=== PATIENT | female | born 1980 | race Caucasian/White ===

== ENCOUNTER → 2016-09-25 | Outpatient (CLI) | payer MEDICAID ==
[~2016-09-25] MED LIST: ALB.5NB20; ALBU17AE23 IH; ALBU8.5H2 IH; ALPR.5T PO; ALPR1T PO; ALPR1TAB2 PO; AMIT25TA9 PO; ARIP10TA2 PO; AZIT-21 PO; BSP10T PO; CEPH500C PO; CEPH500T PO; CLIN300C3 PO; CLON0.5T3 PO; CYCL5TAB PO; DICL50TA4 PO; DIVA250T2 PO; DOXY100C2 PO; DULO60CA6 PO; EPIN0.3P3 IM; ESCI20TA2 PO; ESCT10T PO; FAMO20TA5 PO; FAMO40TA6 PO; FLUO10CA19 PO; GNT.3OP5 OP; HYDR-1231 PO; HYDR-2856 PO; HYDR-2858 PO; HYDR-3816 PO; HYDR1CAP2 PO; HYDR1TAB PO; KETO-22 PO; LURA80TA PO; MELO7.5T PO; METO-352 PO; MTF500T PO; NAPR-243 PO; NITR-65 PO; OMEP20CA12 PO; ONDA-42 SL; ONDA8TAB13 PO; OXYB10TA PO; PANT40TA2 PO; PHEN100T17 PO; PHEN200T27 PO; PRD20T PO; PROS PO; PRX20T PO; Prednisone PO; SOLI10TA4 PO; SUCR1TAB36 PO; TRAM50TA2 PO; TRIA15OI9 TOP; TRIA50CA PO; TRM50T PO; Z PACK; [UNRECOGNIZED DRUG - CODE] IM; flexeril PO
--- NOTE | 2016-09-25 08:58 | Diagnostic Imaging Report ---
INDICATION: COUGH; R05 COMPARISON: CT chest dated 05/10/2014 FINDINGS: Frontal and lateral views of the chest demonstrate normal heart size and pulmonary vascularity. The lungs are clear. There are no signs of infiltrate, pleural effusions or pneumothoraces. The visualized osseous structures show no acute abnormalities. IMPRESSION: 1. No acute process. No signs of infiltrates, effusions or pneumothoraces. Dictated by: Dictated on workstation # [id number]
== END ==
LOC: RAD 08:25
PROVIDERS: ATTEND Nurse Practitioner Community Health
DX: R05 Cough (principal)
CPT/HCPCS: 71020

== ENCOUNTER 2016-10-04 06:31 | Day surgery (SDC) | payer MEDICAID ==
[~2016-10-04] VITALS: Ht 157.5 cm; Wt 54.9 kg
[~2016-10-04 06:31] MED LIST changes: -PANT40TA2 PO; -SUCR1TAB36 PO
[2016-10-04] MEDS ORDERED: NS IV 1000 ML 1,000 ML IV STA (06:44)
[2016-10-04] MEDS ORDERED: HURRICAINE EXT TUBE (BENZOCAINE) XX PRN (06:45)
[2016-10-04] MEDS ORDERED: FAMOTIDINE 20MG/2ML IV (PEPCID) ONE (07:09)
[2016-10-04] MEDS ORDERED: proPOfol 200 MG/20 ML (DIPRIVAN) VIAL IV ONE (07:09)
[2016-10-04 07:10] VITALS: BP 114/68
[2016-10-04] MEDS ORDERED: MIDAZOLAM 2 MG/2 ML (VERSED) VIAL ONE (07:10)
[2016-10-04] MEDS: FAMOTIDINE 20MG/2ML IV (PEPCID) IVP ONE ×2 (07:10→07:20)
[2016-10-04] MEDS ORDERED: HURRICAINE EXT TUBE (BENZOCAINE) ONE (08:02)
[2016-10-04] MEDS ORDERED: PANT40TA2 PO (08:08)
[2016-10-04] MEDS ORDERED: SUCR1TAB36 PO (08:08)
--- NOTE | 2016-10-04 08:09 | Discharge Inst-Simple/Standard ---
Discharge Inst-Standard Patient Instructions/Follow Up Plan of Care/Instructions/FU: Follow up in clinic in 2 weeks. Continue taking omeprazole 20 mg one a day. Activity as Tolerated: Yes Discharge Diet: No Restrictions AMBROSIO PEREZ APRN Oct 04, 2016 08:09
--- NOTE | 2016-10-04 08:19 | Progress Note-Post Operative ---
Post-Operative Progess Note Surgeon (s)/Jig Filler (s) Surgeon HAZEL GUARDADO DO Jig Filler: 0 Pre-Operative Diagnosis gerd, hemetemesis Post-Operative Diagnosis small hiatal hernia, reactive gastropathy Post-Op Procedure Note Date of Procedure: Oct 04, 2016 Name of Procedure Performed: egd c biopsy Description of the Procedure: see ntoe Findings of the Procedure see note Anesthesia Type per mda Estimated blood loss (mL): none Specimen(s) collected/removed antrum HAZEL GUARDADO DO Oct 04, 2016 8:19 am
[2016-10-04 08:25] VITALS: BP 134/84
[2016-10-04 08:55] VITALS: BP 142/88
[2016-10-04 09:05] VITALS: BP 142/88
--- NOTE | 2016-10-04 11:56 | PROCEDURE REPORT ---
PROCEDURE PHYSICIAN: HAZEL GUARDADO DATE OF PROCEDURE: 10/04/2016 PREOPERATIVE DIAGNOSIS: 1. GERD 2. Hematemesis. POSTOPERATIVE DIAGNOSES: 1. Small hiatal hernia. 2. Reactive gastropathy. SURGEON: Nisha. ANESTHESIA: Per MDA. ESTIMATED BLOOD LOSS: None. COMPLICATIONS: None. INDICATIONS: The patient is a 35-year-old female who has had chronic cough, hematemesis and severe GERD. She understands the risk and benefits of the procedure and wished to proceed with procedure. Consent signed on the chart. PROCEDURE: The patient was taken to the endoscopy suite, placed in left lower recumbent position. Timeout was performed. The scope was inserted into the mouth down the esophagus, stomach and duodenum without difficulty. There were no polyps, masses or ulcerations within the duodenum. The scope was then slowly retracted back to the stomach which had a reactive gastropathy appearance. Biopsy of the antrum was obtained. The scope was also retroflexed and noted a very small hiatal hernia. The scope was returned to its normal position. As noted a biopsy of the antrum was obtained. The scope was retracted back into the esophagus and had normal appearance. There were no erythematous changes. No polyps, masses, ulcerations. The scope was slowly retracted until completely removed noting no other pathology of the esophagus. At the vocal cords there was a little bit of mucous that appeared to be in the trachea and around the cords. No other pathology noted. The scope was continued to be slowly retracted until completely removed. RECOMMENDATIONS: The patient will continue to keep on current medications. She will follow-up with Dr. Headley. She will need to follow-up with myself in approximately 2 weeks to discuss pathology. Job ID: [id number] Dictated Date: 10/04/2016 08:22:14 Triage Nurse Date: 10/04/2016 11:51:12 / radha
--- OUTSIDE RECORDS SUMMARY | 2016-11-04 20:28 | XMS REPORT | Continuity of Care Document ---
Author Author [facility] Organization [facility] Address Unknown Phone Unavailable Care Team Providers Care [place] Worker Name Role Phone Taras, Tammy PCP [phone] Source Comments Some departments are not documenting in the electronic medical record. If you do not see the information that you expected, contact Release of Information in the Health Information Management department at [phone] for further assistance in locating additional records.[facility] Active Allergies and Adverse Reactions Allergen Noted Date Severity Reactions Comments Bactrim 05/18/2013 ANAPHYLAXIS Moxifloxacin 05/18/2013 UNKNOWN Penicillins 05/18/2013 UNKNOWN Sulfa (Sulfonamide 05/18/2013 UNKNOWN Antibiotics) Current Medications Prescription Sig. Disp. Refills Start End Date Status Date ALPRAZOLAM (XANAX PO) Take by mouth. Active ESCITALOPRAM OXALATE Take by mouth. Active (LEXAPRO PO) epinephrine(+) (EPIPEN Inject 0.15 mg to area(s) Active JR) 0.15 mg/0.3 mL as directed as Needed. (1:2,000) syringe FESOTERODINE FUMARATE Take by mouth. Active (TOVIAZ PO) METFORMIN HCL (METFORMIN Take by mouth. Active PO) famotidine (PEPCID) 20 mg Take 20 mg by mouth twice Active tablet daily. cetirizine (ZYRTEC) 10 mg Take 1 Tab by mouth every 90 Tab 3 05/25/20 Active tablet morning. 13 hydrOXYzine (ATARAX) 25 Take 1 Tab by mouth at 120 Tab 3 05/25/20 Active mg tablet bedtime daily. Increase 13 by 1 tablet per night up to 4 tablets as long as it does not make you drowsy in AM. Active Problems Problem Noted Date Angioedema 05/25/2013 Overview: Symptoms began in March and have been occuring regularly thereafter. Etiology is presently unknown. - ruling out pheochromocytoma, mast cell degranulation/mastocytosis (activation), thyroid abnormality, complement abnormalities, HIV, H pylori, cryoglobulinemia, alpha gal, autoimmune disorders, post-streptococcal, hyperserotonergic etiology - checking VMA, TSH with T4, Tryptase, Thyroglobulin AB, 24 hour urine for 11 beta prostaglandin F 2 alpha, C1q level, HIV, 24 hr metanephrines, LDH, IgE, H. Pylori IgG, Cryoglobulin levels, complement levels, CH50, chronic urticaria panel, beef IgE, ASO titer, Anti-TPO ab, JAVED, 5 HIAA 24 hour urine to further evaluate. - start zyrtec QAM - patient advised to change hydroxyzine to QHS. She is to start with one tablet QHS and increase to up to four tablets QHS. She was advised to increase by one tablet each evening and to assess for drowsiness in AM. If drowsy she was advised to not increase any further and potentially step down to lower level. She has been tolerating hydroxyzine TID without significant side effects---it is anticipated she will be able to tolerate altered regimen without incident. 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
--- OUTSIDE RECORDS SUMMARY | 2016-11-04 20:28 | XMS REPORT ---
Author Author MARIA DE JESUS MERCADO [facility] eClinicalWorks Address Unknown Phone Unavailable Care Team Providers Care General Ophthalmologist Name Role Phone MARIA DE JESUS MERCADO Unavailable Allergies, Adverse Reactions, Alerts Substance Reaction Event Type MetFORMIN HCl ER shakiness, wt loss Drug Allergy Sulfamethoxazole-Trimethoprim Info Not Available Drug Allergy Septra Info Not Available Drug Allergy Penicillin V Potassium Info Not Available Drug Allergy Bactrim Info Not Available Drug Allergy Problems Problem Type Condition Code Onset Dates Condition Status Assessment Encounter for Depo-Provera contraception Z30.42 Active Problem Nausea R11.0 Active Problem Forgetfulness R68.89 Active Problem Lumbago with sciatica, left side M54.42 Active Problem Lumbago with sciatica, right side M54.41 Active Problem Back pain with right-sided radiculopathy M54.10 Active Problem Mental disor NOS oth dis F99 Active Problem Headache R51 Active Problem Anxiety F41.9 Active Problem 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 Medications Medication Code System Code Instructions Start Date End Date Status Dosage ZyrTEC [facility] [address]-54 10 MG Orally Once a day #120 samples Apr 19, 2015 1 tablet as needed Xanax [facility] [address]-31 1 MG Orally 4 times a day September 23, 2014 1 tablet as needed for anxiety Test strips NDC 0 Test Strips November 10, 2015 as directed Albuterol [facility] 0 90 mcg/actuation Jul 17, 2012 2 puffs by Inhalation route 4 times per day PRN Omeprazole [facility] [address]-00 20 MG Orally Once a day 2 capsules Lexapro [facility] [address]-43 20 MG Orally Once a day 2 tablets Benztropine Mesylate [facility] [address]-18 1 MG Orally 3 times a day 1 tablet Gabapentin [facility] [address]-03 300 MG Orally Three times a day 1 capsule Meclizine HCl [facility] [address]-25 25 MG Orally 3 times a day December 30, 2015 1 tablet as needed for dizziness Blood Glucose Monitor NDC 0 1 glucometer 2 times a day November 10, 2015 test blood sugars Hydrocodone-Acetaminophen [facility] [address]-67 5-325 MG Orally every 6 hrs September 09, 2015 1 tablet as needed EpiPen NDC 0 0.3 MG/0.3ML (1:1000) Intramuscular PRN Apr 19, 2015 as directed Lyrica [facility] [address]-43 75 MG Orally Twice a day September 21, 2015 1 capsule Toprol XL [facility] [address]-16 50 mg Orally Once a day at hs 1 tablet Procedures Procedure Coding System Code Date DEPO PROVERA (150 MG/ML) CPT-4 J1050 Feb 17, 2016 THER/PROPH/DIAG INJ, SC/IM CPT-4 74206 Feb 17, 2016 URINE TEST CPT-4 40357 Feb 17, 2016 Results No Known Results Summary Purpose eClinicalWorks Submission
--- OUTSIDE RECORDS SUMMARY | 2016-11-04 20:28 | XMS REPORT ---
Author Author MARIA DE JESUS MERCADO [facility] eClinicalWorks Address Unknown Phone Unavailable Care Team Providers Care Patient Intake Coordinator Name Role Phone MARIA DE JESUS MERCADO CP Unavailable Allergies, Adverse Reactions, Alerts Substance Reaction Event Type MetFORMIN HCl ER shakiness, wt loss Drug Allergy Sulfamethoxazole-Trimethoprim Info Not Available Drug Allergy Septra Info Not Available Drug Allergy Penicillin V Potassium Info Not Available Drug Allergy Bactrim Info Not Available Drug Allergy Problems Problem Type Condition Code Onset Dates Condition Status Assessment Reactive lymphadenopathy R59.9 Active Problem Nausea R11.0 Active Problem Forgetfulness R68.89 Active Problem Lumbago with sciatica, left side M54.42 Active Problem Lumbago with sciatica, right side M54.41 Active Problem Back pain with right-sided radiculopathy M54.10 Active Problem Mental disor NOS oth dis F99 Active Problem Headache R51 Active Problem Anxiety F41.9 Active Problem 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 Assessment Memory loss, short term R41.3 Active Assessment Other chronic pain G89.29 Active Assessment Low back pain M54.5 Active Medications Medication Code System Code Instructions Start Date End Date Status Dosage Test strips ND 0 Test Strips November 10, 2015 as directed Benztropine Mesylate [facility] [address]-36 1 MG Orally 3 times a day 1 tablet Xanax [facility] [address]-04 1 MG Orally 4 times a day September 23, 2014 1 tablet as needed for anxiety ZyrTEC [facility] [address]-98 10 MG Orally Once a day #120 samples Apr 19, 2015 1 tablet as needed Blood Glucose Monitor ND 0 1 glucometer 2 times a day November 10, 2015 test blood sugars Lexapro [facility] [address]-53 20 MG Orally Once a day 2 tablets Albuterol ND 0 90 mcg/actuation Jul 17, 2012 2 puffs by Inhalation route 4 times per day PRN Hydrocodone-Acetaminophen [facility] [address]-94 5-325 MG Orally every 6 hrs September 09, 2015 1 tablet as needed Omeprazole NDC [address]-96 20 MG Orally Once a day 2 capsules EpiPen NDC 0 0.3 MG/0.3ML (1:1000) Intramuscular PRN Apr 19, 2015 as directed Procedures Procedure Coding System Code Date Office Visit, Est Pt., Level 3 CPT-4 26475 Mar 20, 2016 Vital Signs Date/Time: Mar 20, 2016 Cardiac Monitoring Heart Rate 76 bpm Weight 124 lbs Height 64 in BMI 21.28 Index Blood Pressure Diastolic 80 mmHg Blood Pressure Systolic 116 mmHg Results No Known Results Summary Purpose eClinicalWorks Submission
--- OUTSIDE RECORDS SUMMARY | 2016-11-04 20:28 | XMS REPORT ---
Author Author MARIA DE JESUS MERCADO Organization [employer] Address Unknown Phone Unavailable Care Team Providers Care Cosmetic Counselor Name Role Phone MARIA DE JESUS MERCADO CP Unavailable Allergies No Known Allergies Problems Problem Type Condition Code Onset Dates Condition Status Problem Panic disorder without agoraphobia 300.01 Active Problem Other abnormal glucose 790.29 Active Problem Nondependent tobacco use disorder 305.1 Active Problem Bipolar disorder, unspecified 296.80 Active Medications No Known Medications Results No Known Results Summary Purpose eClinicalWorks Submission
--- OUTSIDE RECORDS SUMMARY | 2016-11-04 20:29 | XMS REPORT ---
Author Author MARIA DE JESUS MERCADO [facility] eClinicalWorks Address Unknown Phone Unavailable Care Team Providers Care Supervisor Inspection And Testing Name Role Phone MARIA DE JESUS MERCADO CP Unavailable Allergies, Adverse Reactions, Alerts Substance Reaction Event Type MetFORMIN HCl ER shakiness, wt loss Drug Allergy Sulfamethoxazole-Trimethoprim Info Not Available Drug Allergy Septra Info Not Available Drug Allergy Penicillin V Potassium Info Not Available Drug Allergy Bactrim Info Not Available Drug Allergy Problems Problem Type Condition Code Onset Dates Condition Status Problem Forgetfulness R68.89 Active Problem Headache R51 Active Problem Nausea R11.0 Active Assessment Gastroesophageal reflux disease without esophagitis K21.9 Active Problem Back pain with right-sided radiculopathy M54.10 Active Problem Lumbago with sciatica, left side M54.42 Active Problem Gastroesophageal reflux disease without esophagitis K21.9 Active Problem 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 [address]-78 20 mg Orally Once a day 2 tablets [address] [facility] [address]-50 1 MG Orally 4 times a day September 23, 2014 1 tablet as needed for anxiety ZyrTEC [facility] [address]-72 10 MG Orally Once a day #120 samples Apr 19, 2015 1 tablet as needed Gabapentin [facility] [address]-41 300 MG Orally Three times a day 1 capsule Albuterol ND 0 90 mcg/actuation Jul 17, 2012 2 puffs by Inhalation route 4 times per day PRN Hydrocodone-Acetaminophen [facility] [address]-63 7.5-325 MG Orally 3 times a day September 09, 2015 1 tablet as needed Benztropine Mesylate [facility] [address]-02 1 MG Orally 3 times a day 1 tablet Blood Glucose Monitor [facility] 0 1 glucometer 2 times a day November 10, 2015 test blood sugars Omeprazole [facility] [address]-04 20 mg Orally Once a day 2 capsules Procedures Procedure Coding System Code Date Office Visit, Est Pt., Level 2 CPT-4 92771 Apr 16, 2016 Vital Signs Date/Time: Apr 16, 2016 Cardiac Monitoring Heart Rate 80 bpm Weight 124.9 lbs Height 64 in BMI 21.44 Index Blood Pressure Diastolic 62 mmHg Blood Pressure Systolic 118 mmHg Results No Known Results Summary Purpose eClinicalWorks Submission
--- OUTSIDE RECORDS SUMMARY | 2016-11-04 20:29 | XMS REPORT ---
Author Author MARIA DE JESUS MERCADO Organization eClinicalWorks Address Unknown Phone Unavailable Care Team Providers Care Linen Folder Name Role Phone MARIA DE JESUS MERCADO CP Unavailable Allergies No Known Allergies Problems Problem Type Condition Code Onset Dates Condition Status Problem Mental disor NOS oth dis F99 Active Problem Headache R51 Active Problem 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 Problem Nausea R11.0 Active Problem Forgetfulness R68.89 Active Medications No Known Medications Results No Known Results Summary Purpose eClinicalWorks Submission
--- OUTSIDE RECORDS SUMMARY | 2016-11-04 20:29 | XMS REPORT ---
Author Author MARIA DE JESUS MERCADO Organization eClinicalWorks Address Unknown Phone Unavailable Care Team Providers Care Manager Reimbursement Name Role Phone MARIA DE JESUS MERCADO CP Unavailable Allergies No Known Allergies Problems Problem Type Condition Code Onset Dates Condition Status Problem Panic disorder without agoraphobia 300.01 Active Problem Other abnormal glucose 790.29 Active Problem Nondependent tobacco use disorder 305.1 Active Problem Bipolar disorder, unspecified 296.80 Active Medications Medication Code System Code Instructions Start Date End Date Status Dosage EPINEPHrine [facility] [address]-03 0.3 mg/0.3 mL (1:1,000) Aug 07, 2013 0.3 mg by Intramuscular route 1 time per day PRN Results No Known Results Summary Purpose eClinicalWorks Submission
--- OUTSIDE RECORDS SUMMARY | 2016-11-04 20:29 | XMS REPORT ---
Author Author MARIA DE JESUS MERCADO Organization eClinicalWorks Address Unknown Phone Unavailable Care Team Providers Care Architecture Intern Name Role Phone MARI ADE JESUS MERCADO CP Unavailable Allergies No Known Allergies Problems Problem Type Condition Code Onset Dates Condition Status Problem Nausea R11.0 Active Problem Forgetfulness R68.89 Active Problem Lumbago with sciatica, left side M54.42 Active Problem Lumbago with sciatica, right side M54.41 Active Problem Back pain with right-sided radiculopathy M54.10 Active Problem Mental disor NOS oth dis F99 Active Problem Headache R51 Active Problem Anxiety F41.9 Active Problem 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 Medications No Known Medications Results No Known Results Summary Purpose eClinicalWorks Submission
--- OUTSIDE RECORDS SUMMARY | 2016-11-04 20:29 | XMS REPORT ---
Author Author MARIA DE JESUS MERCADO Organization eClinicalWorks Address Unknown Phone Unavailable Care Team Providers Care Tool And Die Inspector Name Role Phone MARIA DE JESUS MERCADO [...]
--- OUTSIDE RECORDS SUMMARY | 2016-11-04 20:29 | XMS REPORT ---
Author Author MARIA DE JESUS MERCADO Organization eClinicalWorks Address Unknown Phone Unavailable Care Team Providers Care Offal Worker Name Role Phone MARIA DE JESUS MERCADO [...] Instructions Start Date End Date Status Dosage Albuterol NDC 0 90 mcg/actuation Jul 17, 2012 2 puffs by Inhalation route 4 times per day PRN Test strips NDC 0 Test Strips November 10, 2015 as directed EpiPen NDC 0 0.3 MG/0.3ML (1:1000) Intramuscular PRN Apr 19, 2015 as directed Xanax [facility] [address]-07 1 MG Orally 4 times a day September 23, 2014 1 tablet as needed for anxiety Blood Glucose Monitor NDC 0 1 glucometer 2 times a day November 10, 2015 test blood sugars Benztropine Mesylate [facility] [address]-68 1 MG Orally 3 times a day 1 tablet ZyrTEC [facility] [address]-79 10 MG Orally Once a day #120 samples Apr 19, 2015 1 tablet as needed Hydrocodone-Acetaminophen [facility] [address]-84 7.5-325 MG Orally 3 times a day September 09, 2015 1 tablet as needed Lexapro [facility] [address]-74 20 mg Orally Once a day 2 tablets Omeprazole [facility] [address]-96 20 mg Orally Once a day 2 capsules Results No Known Results Summary Purpose eClinicalWorks Submission
--- OUTSIDE RECORDS SUMMARY | 2016-11-04 20:30 | XMS REPORT ---
Author Author MARIA DE JESUS MERCADO [facility] eClinicalWorks Address Unknown Phone Unavailable Care Team Providers Care Drilling Machine Runner Name Role Phone MARIA DE JESUS MERCADO CP Unavailable Allergies, Adverse Reactions, Alerts Substance Reaction Event Type MetFORMIN HCl ER shakiness, wt loss Drug Allergy Xanax increased panic Drug Allergy Septra Info Not Available Drug Allergy Penicillin V Potassium Info Not Available Drug Allergy Bactrim Info Not Available Drug Allergy Sulfa (sulfonamide Antibiotics) Info Not Available Non Drug Allergy Problems Problem Type Condition Code Onset Dates Condition Status Assessment Encounter for surveillance of injectable contraceptive Z30.42 Active Problem Panic disorder without agoraphobia 300.01 Active Problem Other abnormal glucose 790.29 Active Problem Nondependent tobacco use disorder 305.1 Active Assessment Anaphylaxis, subsequent encounter T78.2XXD Active Assessment Encounter for Depo-Provera contraception Z30.42 Active Problem Bipolar disorder, unspecified 296.80 Active Assessment Upper respiratory tract infection, unspecified upper respiratory infection J06.9 Active Medications Medication Code System Code Instructions Start Date End Date Status Dosage Benztropine Mesylate [facility] 05521307631 1 MG TAKE ONE TABLET BY MOUTH TWICE DAILY EPINEPHrine [facility] [address]-94 0.3 mg/0.3 mL (1:1,000) Injection PRN Aug 0.3 mg by Intramuscular route 1 time per day PRN Zithromax Z-David [facility] [address]-06 250 MG Orally Once a day Apr 19, 2015 Apr 24, 2015 2 tablets on the first day, then 1 tablet daily for 4 days Lexapro [facility] [address]-66 20 MG Jul 30, 2014 2 tablet by Oral route 1 time per day Symbicort [facility] [address]-17 80-4.5 mcg/actuation May 06, 2014 2 puffs by Inhalation route 2 times per day for 30 day(s) Albuterol ND 0 90 mcg/actuation Jul 17, 2012 2 puffs by Inhalation route 4 times per day PRN ZyrTEC [facility] [address]-07 10 MG Orally Once a day #120 samples Apr 19, 2015 1 tablet as needed EpiPen NDC 0 0.3 MG/0.3ML (1:1000) Intramuscular PRN Apr 19, 2015 as directed Xanax [facility] [address]-93 1 MG September 23, 2014 1 tablet by Oral route 4 times per day Procedures Procedure Coding System Code Date Office Visit, Est Pt., Level 3 CPT-4 32056 Apr 19, 2015 DEPO PROVERA (150 MG/ML) CPT-4 J1050 Apr 19, 2015 URINE TEST CPT-4 59930 Apr 19, 2015 THER/PROPH/DIAG INJ, SC/IM CPT-4 11078 Apr 19, 2015 Vital Signs Date/Time: Apr 19, 2015 Temperature 98.2 F Weight 124.4 lbs Height 64 in BMI 21.35 Index Blood Pressure Diastolic 78 mmHg Blood Pressure Systolic 116 mmHg Cardiac Monitoring Heart Rate 64 bpm Results Name Result Date Reference Range Unit Abnormality Flag TEST, URINE (IN HOUSE) Summary Purpose eClinicalWorks Submission
--- OUTSIDE RECORDS SUMMARY | 2016-11-04 20:30 | XMS REPORT ---
Author Author MARIA DE JESUS MERCADO [facility] eClinicalWorks Address Unknown Phone Unavailable Care Team Providers Care Leadership Development Manager Name Role Phone MARIA DE JESUS MERCADO [...] Problem Bipolar disorder, unspecified 296.80 Active Assessment Generalized anxiety disorder F41.1 Active Medications Medication Code System Code Instructions Start Date End Date Status Dosage ZyrTEC [facility] [address]-86 10 MG Orally Once a day #120 samples Apr 19, 2015 1 tablet as needed Lexapro [facility] [address]-77 20 MG Jul 30, 2014 2 tablet by Oral route 1 time per day Benztropine Mesylate [facility] 56875411464 1 MG TAKE ONE TABLET BY MOUTH TWICE DAILY EpiPen NDC 0 0.3 MG/0.3ML (1:1000) Intramuscular PRN Apr 19, 2015 as directed Symbicort [facility] [address]-53 80-4.5 mcg/actuation May 06, 2014 2 puffs by Inhalation route 2 times per day for 30 day(s) Albuterol ND 0 90 mcg/actuation Jul 17, 2012 2 puffs by Inhalation route 4 times per day PRN Toprol XL [facility] [address]-11 50 MG Orally Once a day at hs May 10, 2015 1 tablet Xanax [facility] [address]-02 1 MG Rx to be filled on 05/05/15 September 23, 2014 1 tablet by Oral route 4 times per day Procedures Procedure Coding System Code Date Office Visit, Est Pt., Level 3 CPT-4 01739 May 10, 2015 Vital Signs Date/Time: May 10, 2015 Temperature 98.7 F Weight 125.3 lbs Height 64 in BMI 21.51 Index Blood Pressure Diastolic 74 mmHg Blood Pressure Systolic 118 mmHg Cardiac Monitoring Heart Rate 68 bpm Results No Known Results Summary Purpose eClinicalWorks Submission
--- OUTSIDE RECORDS SUMMARY | 2016-11-04 20:30 | XMS REPORT ---
Author Author MARIA DE JESUS MERCADO Organization eClinicalWorks Address Unknown Phone Unavailable Care Team Providers Care Surface Grinder Tender Name Role Phone MARIA DE JESUS MERCADO CP Unavailable Allergies No Known Allergies Problems Problem Type Condition Code Onset Dates Condition Status Problem Nausea R11.0 Active Problem Mental disor NOS oth dis F99 Active Problem Headache R51 Active Assessment Gastroesophageal reflux disease without esophagitis K21.9 Active Problem Forgetfulness R68.89 Active Problem Gastroesophageal reflux disease without esophagitis K21.9 Active Problem Back pain with right-sided radiculopathy M54.10 Active Problem Asthma exacerbation J45.901 Active Problem Anxiety F41.9 Active Problem 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 Problem Lumbago with sciatica, left side M54.42 Active Problem Lumbago with sciatica, right side M54.41 Active Medications Medication Code System Code Instructions Start Date End Date Status Dosage Omeprazole [facility] [address]-68 40 MG Orally Once a day 1 capsule Results No Known Results Summary Purpose eClinicalWorks Submission
--- OUTSIDE RECORDS SUMMARY | 2016-11-04 20:30 | XMS REPORT ---
Author Author MARIA DE JESUS MERCADO [facility] Address [address] [place] [address] Care Team Providers Care Flame Planer Name Role Phone MARIA DE JESUS MERCADO Unavailable PROBLEMS Type Condition ICD9-CM Code XAE39-OH Code Onset Dates Condition Status SNOMED Code Problem Forgetfulness R68.89 Active 73832101 Problem Headache R51 Active 89108702 Problem Nausea R11.0 Active 907434749 Problem Back pain with right-sided radiculopathy M54.10 Active 602800804 Problem Lumbago with sciatica, left side M54.42 Active 629595345 Problem 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 656021389 Problem Mental disor NOS oth dis F99 Active 72237253 Problem Lumbago with sciatica, right side M54.41 Active 414611693 Problem Anxiety F41.9 Active 58094733 ALLERGIES Unknown Allergies SOCIAL HISTORY No smoking Hx information available PLAN OF CARE VITAL SIGNS MEDICATIONS Unknown Medications RESULTS No Results PROCEDURES No Known procedures IMMUNIZATIONS No Known Immunizations
--- OUTSIDE RECORDS SUMMARY | 2016-11-04 20:30 | XMS REPORT ---
Author Author MARIA DE JESUS MERCADO Organization eClinicalWorks Address Unknown Phone Unavailable Care Team Providers Care Kitchen Worker Name Role Phone MARIA DE JESUS [...] Instructions Start Date End Date Status Dosage Xanax [facility] [address]-86 1 MG Orally 4 times a day September 23, 2014 1 tablet as needed for anxiety Results No Known Results Summary Purpose eClinicalWorks Submission
--- OUTSIDE RECORDS SUMMARY | 2016-11-04 20:30 | XMS REPORT ---
Author Author MARIA DE JESUS MERCADO [facility] Address [address] [place] [address] Care Team Providers Care Analysis Manager Name Role Phone MARIA DE JESUS MERCADO Unavailable PROBLEMS Type Condition ICD9-CM Code RXX66-ZM Code Onset Dates Condition Status SNOMED Code Problem Forgetfulness R68.89 Active 87207342 Problem Headache R51 Active 22426888 Problem Nausea R11.0 Active 125194856 Assessment Short-term memory loss R41.3 13 Mar, 2016 Active 784715881 Problem Back pain with right-sided radiculopathy M54.10 Active 047343482 Problem Lumbago with sciatica, left side M54.42 Active 814348375 Problem 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 316315913 Problem Mental disor NOS oth dis F99 Active 35715367 Problem Lumbago with sciatica, right side M54.41 Active 639196381 Problem Anxiety F41.9 Active 32872905 ALLERGIES Unknown Allergies SOCIAL HISTORY No smoking Hx information available PLAN OF CARE VITAL SIGNS MEDICATIONS Unknown Medications RESULTS No Results PROCEDURES No Known procedures IMMUNIZATIONS No Known Immunizations
--- OUTSIDE RECORDS SUMMARY | 2016-11-04 20:30 | XMS REPORT ---
Author Author MARIA DE JESUS MERCADO [facility] Address [address] [place] [address] Care Team Providers Care Network Support Analyst Name Role Phone MARIA DE JESUS MERCADO Unavailable PROBLEMS Type Condition ICD9-CM Code CUE38-HQ Code Onset Dates Condition Status SNOMED Code Problem Forgetfulness R68.89 Active 26321421 Problem Headache R51 Active 26237758 Problem Nausea R11.0 Active 690362880 Problem Back pain with right-sided radiculopathy M54.10 Active 188792994 Problem Lumbago with sciatica, left side M54.42 Active 543280732 Problem 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 536137242 Problem Mental disor NOS oth dis F99 Active 68793285 Problem Lumbago with sciatica, right side M54.41 Active 090544544 Problem Anxiety F41.9 Active 48012248 ALLERGIES Unknown Allergies SOCIAL HISTORY No smoking Hx information available PLAN OF CARE VITAL SIGNS MEDICATIONS Unknown Medications RESULTS No Results PROCEDURES No Known procedures IMMUNIZATIONS No Known Immunizations
--- OUTSIDE RECORDS SUMMARY | 2016-11-04 20:30 | XMS REPORT ---
Author Author MARIA DE JESUS MERCADO [facility] eClinicalWorks Address Unknown Phone Unavailable Care Team Providers Care Appraiser Boats And Marine Name Role Phone MARIA DE JESUS MERCADO CP Unavailable Allergies No Known Allergies Problems Problem Type Condition Code Onset Dates Condition Status Problem Nausea R11.0 Active Problem Mental disor NOS oth dis F99 Active Problem Headache R51 Active Assessment Headache R51 Active Problem Forgetfulness R68.89 Active Problem Gastroesophageal reflux disease without esophagitis K21.9 Active Problem Back pain with right-sided radiculopathy M54.10 Active Problem Asthma exacerbation J45.901 Active Problem Anxiety F41.9 Active Problem 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 Problem Lumbago with sciatica, left side M54.42 Active Problem Lumbago with sciatica, right side M54.41 Active Medications No Known Medications Procedures Procedure Coding System Code Date VENIPUNCT, ROUTINE* CPT-4 13131 May 16, 2016 LAB NOT BILLED BY [facility] CPT-4 NOBLL May 16, 2016 Results Name Result Date Reference Range Unit Abnormality Flag ROUTINE VENIPUNCTURE BMP ----Calcium, Serum 9.2 63677250 8.7-10.2 mg/dL ----Sodium, Serum 140 [id number] 136-144 mmol/L ----BUN/Creatinine Ratio 10 [id number] 8-20 ----Chloride, Serum 102 [id number] 97-106 mmol/L ----Carbon Dioxide, Total 22 [id number] 18-29 mmol/L ----Potassium, Serum 4.2 62642464 3.5-5.2 mmol/L ----eGFR If NonAfricn Am 113 [id number] >59 mL/min/1.73 ----eGFR If Africn Am 130 [id number] >59 mL/min/1.73 ----BUN 7 [id number] 6-20 mg/dL ----Creatinine, Serum 0.68 [id number] 0.57-1.00 mg/dL ----Glucose, Serum 123 [id number] 65-99 mg/dL H Summary Purpose eClinicalWorks Submission
--- OUTSIDE RECORDS SUMMARY | 2016-11-04 20:31 | XMS REPORT ---
Author Author MARIA DE JESUS MERCADO Organization eClinicalWorks Address Unknown Phone Unavailable Care Team Providers Care Motorcycle Mechanic Name Role Phone MARIA DE JESUS MERCADO CP Unavailable Allergies No Known Allergies Problems Problem Type Condition Code Onset Dates Condition Status Assessment Lumbago with sciatica, left side M54.42 Active Problem Nausea R11.0 Active Problem Forgetfulness [...] Instructions Start Date End Date Status Dosage Hydrocodone-Acetaminophen [facility] [address]-44 5-325 MG Orally every 6 hrs September 09, 2015 1 tablet as needed Results No Known Results Summary Purpose eClinicalWorks Submission
--- OUTSIDE RECORDS SUMMARY | 2016-11-04 20:31 | XMS REPORT ---
Author Author MARIA DE JESUS MERCADO [facility] Address [address] [place] [address] Care Team Providers Care Strategic Consultant Name Role Phone MARIA DE JESUS MERCADO Unavailable PROBLEMS Type Condition ICD9-CM Code CND53-GL Code Onset Dates Condition Status SNOMED Code Problem Forgetfulness R68.89 Active 52098789 Problem Headache R51 Active 13958436 Problem Nausea R11.0 Active 893743492 Problem Back pain with right-sided radiculopathy M54.10 Active 342052926 Problem Lumbago with sciatica, left side M54.42 Active 215104077 Problem 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 938777682 Problem Mental disor NOS oth dis F99 Active 35840039 Problem Lumbago with sciatica, right side M54.41 Active 504857892 Problem Anxiety F41.9 Active 57953655 ALLERGIES Unknown Allergies SOCIAL HISTORY No smoking Hx information available PLAN OF CARE VITAL SIGNS MEDICATIONS Medication Instructions Dosage Frequency Start Date End Date Duration Status Xanax 1 MG Orally 4 times a day 1 tablet as needed for anxiety 6h Aug, 28 days Active Hydrocodone-Acetaminophen 5-325 MG Orally every 6 hrs 1 tablet as needed 6h Aug, Active RESULTS No Results PROCEDURES No Known procedures IMMUNIZATIONS No Known Immunizations
--- OUTSIDE RECORDS SUMMARY | 2016-11-04 20:31 | XMS REPORT ---
Author Author ERIC SALGADO Organization [facility] Address [address] [place] [address] Care Team Providers Care Automatic Operator Name Role Phone ERIC SALGADO Unavailable PROBLEMS Type Condition ICD9-CM Code USX63-ZD Code Onset Dates Condition Status SNOMED Code Problem Forgetfulness R68.89 Active 57267868 Problem Headache R51 Active 73744988 Problem Nausea R11.0 Active 714734255 Assessment Axillary abscess L02.419 Mar, Active 50964427 Problem Back pain with right-sided radiculopathy M54.10 Active 579801936 Problem Lumbago with sciatica, left side M54.42 Active 262978591 Problem 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 383697736 Problem Mental disor NOS oth dis F99 Active 11508429 Problem Lumbago with sciatica, right side M54.41 Active 702671761 Problem Anxiety F41.9 Active 92039524 ALLERGIES Substance Reaction Event Type Date Status MetFORMIN HCl ER shakiness, wt loss Drug Allergy Mar, Active Sulfamethoxazole-Trimethoprim Unknown Drug Allergy Mar, Active Septra Unknown Drug Allergy Mar, Active Penicillin V Potassium Unknown Drug Allergy Mar, Active Bactrim Unknown Drug Allergy Mar, Active SOCIAL HISTORY No smoking Hx information available PLAN OF CARE VITAL SIGNS Height 64 in 2016-03-07 Weight 124.0 lbs 2016-03-07 Heart Rate 76 bpm 2016-03-07 Respiratory Rate 20 2016-03-07 BMI 21.28 kg/m2 2016-03-07 Blood pressure systolic 140 mmHg 2016-03-07 Blood pressure diastolic 82 mmHg 2016-03-07 MEDICATIONS Medication Instructions Dosage Frequency Start Date End Date Duration Status EpiPen 0.3 MG/0.3ML (1:1000) Intramuscular PRN as directed Mar, 1 dose Active Blood Glucose Monitor 1 glucometer test blood sugars 12h 12 Oct, 2015 Active ZyrTEC 10 MG Orally Once a day #120 samples 1 tablet as needed Mar, Active Lyrica 75 MG Orally Twice a day 1 capsule 12h Aug, Active Toprol XL 50 mg Orally Once a day at hs 1 tablet 90 Active Benztropine Mesylate 1 MG Orally 3 times a day 1 tablet 8h 90 days Active Xanax 1 MG Orally 4 times a day 1 tablet as needed for anxiety 6h Aug, 28 days Active Meclizine HCl 25 MG Orally 3 times a day 1 tablet as needed for dizziness 8h Dec, Active Test strips Test Strips as directed October, Active Gabapentin 300 MG Orally Three times a day 1 capsule 8h Active Hydrocodone-Acetaminophen 5-325 MG Orally every 6 hrs 1 tablet as needed 6h Aug, Active Omeprazole 20 MG Orally Once a day 2 capsules 24h Active Keflex 500 MG Orally Four times a day 1 capsule 6h Mar, Mar, 10 day(s) Active Albuterol 90 mcg/actuation 2 puffs by Inhalation route 4 times per day PRN Jul, Active Lexapro 20 MG Orally Once a day 2 tablets 24h 90 days Active RESULTS No Results PROCEDURES Procedure Date Ordered Related Diagnosis Body Site Office Visit, Est Pt., Level 3 Mar 07, 2016 IMMUNIZATIONS No Known Immunizations
--- OUTSIDE RECORDS SUMMARY | 2016-11-04 20:31 | XMS REPORT ---
Author Author MARIA DE JESUS MERCADO Organization eClinicalWorks Address Unknown Phone Unavailable Care Team Providers Care Tire Sorter Name Role Phone MARIA DE JESUS MERCADO CP Unavailable Allergies No Known Allergies Problems Problem Type Condition Code Onset Dates Condition Status Problem Nausea R11.0 Active Problem Mental disor NOS oth dis F99 Active Problem Headache R51 Active Problem Forgetfulness R68.89 Active Problem Gastroesophageal reflux disease without esophagitis K21.9 Active Problem Back pain with right-sided radiculopathy M54.10 Active Problem Asthma exacerbation J45.901 Active Problem Anxiety F41.9 Active Problem 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 Problem Lumbago with sciatica, left side M54.42 Active Problem Lumbago with sciatica, right side M54.41 Active Medications No Known Medications Results No Known Results Summary Purpose eClinicalWorks Submission
--- OUTSIDE RECORDS SUMMARY | 2016-11-04 20:32 | XMS REPORT ---
Author Author MARIA DE JESUS MERCADO Organization [employer] Address Unknown Phone Unavailable Care Team Providers Care Hobbing Machine Operator Name Role Phone MARIA DE JESUS MERCADO CP Unavailable Allergies No Known Allergies Problems Problem Type Condition Code Onset Dates Condition Status Problem Nausea R11.0 Active Problem Mental disor NOS oth dis F99 Active Problem Headache R51 Active Assessment Lumbago with sciatica, right side M54.41 Active Problem Forgetfulness R68.89 Active Problem Gastroesophageal [...] Instructions Start Date End Date Status Dosage Toprol XL [facility] [address]-56 50 mg Orally Once a day at hs 1 tablet Blood Glucose Monitor ND 0 1 glucometer 2 times a day November 10, 2015 test blood sugars Hydrocodone-Acetaminophen [facility] [address]-04 7.5-325 MG Orally 3 times a day September 09, 2015 1 tablet as needed Lexapro [facility] [address]-08 20 mg Orally Once a day [address] [facility] [address]-06 1 MG Orally 4 times a day September 23, 2014 1 tablet as needed for anxiety ZyrTEC [facility] [address]-08 10 MG Orally Once a day #120 samples Apr 19, 2015 1 tablet as needed EpiPen NDC 0 0.3 MG/0.3ML (1:1000) Intramuscular PRN Apr 19, 2015 as directed Albuterol NDC 0 90 mcg/actuation Jul 17, 2012 2 puffs by Inhalation route 4 times per day PRN Test strips NDC 0 Test Strips November 10, 2015 as directed Ben[address] Mes[address] [facility] [address]-19 1 MG Orally 3 times a day [address] [facility] [address]-22 300 MG Orally Three times a day [address] [facility] [address]-50 40 MG Orally Once a day 1 capsule Results No Known Results Summary Purpose eClinicalWorks Submission
--- OUTSIDE RECORDS SUMMARY | 2016-11-04 20:32 | XMS REPORT ---
Author Author MARIA DE JESUS MERCADO Organization [employer] Address Unknown Phone Unavailable Care Team Providers Care Software Engineer Mobile Name Role Phone MARIA DE JESUS MERCADO CP Unavailable Allergies No Known Allergies Problems Problem Type Condition Code Onset Dates Condition Status Problem Nausea R11.0 Active Problem Mental disor NOS oth dis F99 Active Problem Headache R51 Active Assessment Encounter for Depo-Provera contraception Z30.42 Active Problem Forgetfulness R68.89 Active Problem Gastroesophageal reflux disease without esophagitis K21.9 Active Problem Back pain with right-sided radiculopathy M54.10 Active Problem Asthma exacerbation J45.901 Active Problem Anxiety F41.9 Active Problem 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
--- OUTSIDE RECORDS SUMMARY | 2016-11-04 20:32 | XMS REPORT ---
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 543331786 Problem Mental disor NOS oth dis F99 Active 08063411 Assessment Lumbago with sciatica, left side M54.42 May, Active 87343618 Problem Forgetfulness R68.89 Active 05442602 Problem Nausea R11.0 Active 549712742 Problem Asthma exacerbation J45.901 Active 246803086 Problem Gastroesophageal reflux disease without esophagitis K21.9 Active 994594667 Problem Lumbago with sciatica, right side M54.41 Active 017549701 Problem Anxiety F41.9 Active 52033031 Problem Back pain with right-sided radiculopathy M54.10 Active 568372007 Problem Lumbago with sciatica, left side M54.42 Active 996376440 ALLERGIES Substance Reaction Event Type Date Status MetFORMIN HCl ER shakiness, wt loss Drug Allergy May, Active Sulfamethoxazole-Trimethoprim Unknown Drug Allergy May, Active Septra Unknown Drug Allergy May, Active Penicillin V Potassium Unknown Drug Allergy May, Active Bactrim Unknown Drug Allergy May, Active SOCIAL HISTORY No smoking Hx information available PLAN OF CARE VITAL SIGNS Height 64 in 2016-05-22 Weight 131.4 lbs 2016-05-22 Heart Rate 78 bpm 2016-05-22 Respiratory Rate 18 2016-05-22 BMI 22.55 kg/m2 2016-05-22 Blood pressure systolic 108 mmHg 2016-05-22 Blood pressure diastolic 54 mmHg 2016-05-22 MEDICATIONS Medication Instructions Dosage Frequency Start Date End Date Duration Status Omeprazole 40 MG Orally Once a day 1 capsule 24h 90 days Active Gabapentin 300 MG Orally Three times a day 1 capsule 8h Active Lexapro 20 mg Orally Once a day 2 tablets 24h 90 days Active Blood Glucose Monitor 1 glucometer test blood sugars 12h October, Active Xanax 1 MG Orally 4 times a day 1 tablet as needed for anxiety 6h 26 Aug, 2014 28 days Active Albuterol 90 mcg/actuation 2 puffs by Inhalation route 4 times per day PRN Jul, Active ZyrTEC 10 MG Orally Once a day #120 samples 1 tablet as needed Mar, Active Test strips Test Strips as directed October, Active Benztropine Mesylate 1 MG Orally 3 times a day 1 tablet 8h 90 days Active EpiPen 0.3 MG/0.3ML (1:1000) Intramuscular PRN as directed Mar, 1 dose Active Hydrocodone-Acetaminophen 7.5-325 MG Orally 4 times a day 1 tablet as needed 6h May, 28 days Active Toprol XL 50 mg Orally Once a day at hs 1 tablet 90 Active RESULTS No Results PROCEDURES Procedure Date Ordered Related Diagnosis Body Site Office Visit, Est Pt., Level 3 May 22, 2016 IMMUNIZATIONS No Known Immunizations
--- OUTSIDE RECORDS SUMMARY | 2016-11-04 20:32 | XMS REPORT ---
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
--- OUTSIDE RECORDS SUMMARY | 2016-11-04 20:32 | XMS REPORT ---
Author Author MARIA DE JESUS MERCADO Organization eClinicalWorks Address Unknown Phone Unavailable Care Team Providers Care Burner Technician Name Role Phone MARIA DE JESUS MERCADO CP Unavailable Allergies No Known Allergies Problems Problem Type Condition Code Onset Dates Condition Status Problem Panic disorder without agoraphobia 300.01 Active Problem Other abnormal glucose 790.29 Active Problem Nondependent tobacco use disorder 305.1 Active Problem Bipolar disorder, unspecified 296.80 Active Medications Medication Code System Code Instructions Start Date End Date Status Dosage Xanax [facility] [address]-95 1 MG Rx to be filled on 05/05/15 September 23, 2014 1 tablet by Oral route 4 times per day Results No Known Results Summary Purpose eClinicalWorks Submission
--- OUTSIDE RECORDS SUMMARY | 2016-11-04 20:32 | XMS REPORT ---
Author ERIC [facility] eClinicalWorks Address Unknown Phone Unavailable Care Team Providers Care Cloth Reeler Name Role Phone ERIC SALGADO CP Unavailable Allergies, Adverse Reactions, Alerts Substance [...] F99 Active Problem Headache R51 Active Assessment Asthma exacerbation J45.901 Active Problem Forgetfulness R68.89 Active Problem Gastroesophageal [...] Instructions Start Date End Date Status Dosage PredniSONE [facility] [address]-04 20 mg Orally Once a day Apr 18, 2016 Apr 23, 2016 2 tablets ZyrTEC [facility] [address]-43 10 MG Orally Once a day #120 samples Apr 19, 2015 1 tablet as needed Omeprazole [facility] [address]-42 20 mg Orally Once a day 2 capsules Hydrocodone-Acetaminophen [facility] [address]-16 7.5-325 MG Orally 3 times a day September 09, 2015 1 tablet as needed Gabapentin [facility] [address]-27 300 MG Orally Three times a day 1 capsule EpiPen [facility] 0 0.3 MG/0.3ML (1:1000) Intramuscular PRN Apr 19, 2015 as directed Lexapro [facility] [address]-48 20 mg Orally Once a day 2 tablets Xanax [facility] [address]-30 1 MG Orally 4 times a day September 23, 2014 1 tablet as needed for anxiety Albuterol NDC 0 90 mcg/actuation Jul 17, 2012 2 puffs by Inhalation route 4 times per day PRN Benztropine Mesylate [facility] [address]-96 1 MG Orally 3 times a day 1 tablet Zithromax Z-David [facility] [address]-66 250 MG Orally Once a day Apr 18, 2016 Apr 23, 2016 2 tablets on the first day, then 1 tablet daily for 4 days Blood Glucose Monitor ND 0 1 glucometer 2 times a day November 10, 2015 test blood sugars Test strips ND 0 Test Strips November 10, 2015 as directed Procedures Procedure Coding System Code Date Office Visit, Est Pt., Level 3 CPT-4 28039 Apr 18, 2016 Vital Signs Date/Time: Apr 18, 2016 Cardiac Monitoring Heart Rate 76 bpm Weight 127.4 lbs Height 64 in BMI 21.87 Index Blood Pressure Diastolic 64 mmHg Blood Pressure Systolic 104 mmHg Results No Known Results Summary Purpose eClinicalWorks Submission
--- OUTSIDE RECORDS SUMMARY | 2016-11-04 20:32 | XMS REPORT ---
Author Author MARIA DE JESUS MERCADO Organization eClinicalWorks Address Unknown Phone Unavailable Care Team Providers Care Direct Marketing Analyst Name Role Phone MARIA DE JESUS MERCADO CP Unavailable Allergies No Known Allergies Problems Problem Type Condition Code Onset Dates Condition Status Problem Panic disorder without agoraphobia 300.01 Active Problem Other abnormal glucose 790.29 Active Problem Nondependent tobacco use disorder 305.1 Active Problem Bipolar disorder, unspecified 296.80 Active Medications Medication Code System Code Instructions Start Date End Date Status Dosage Xanax [facility] [address]-89 1 MG September 23, 2014 1 tablet by Oral route 4 times per day Results No Known Results Summary Purpose eClinicalWorks Submission
--- OUTSIDE RECORDS SUMMARY | 2016-11-04 20:32 | XMS REPORT ---
Author Author MARIA DE JESUS MERCADO Organization eClinicalWorks Address Unknown Phone Unavailable Care Team Providers Care Slag Wheeler Name Role Phone MARIA DE JESUS MERCADO [...] Start Date End Date Status Dosage Hydrocodone-Acetaminophen [facility] [address]-25 5-325 MG Orally every 6 hrs September 09, 2015 1 tablet as needed Results No Known Results Summary Purpose eClinicalWorks Submission
--- OUTSIDE RECORDS SUMMARY | 2016-11-04 20:33 | XMS REPORT ---
Author Author ARLETH FULLER [employer] Address Unknown Phone Unavailable Care Team Providers Care Supervisor Ship Maintenance Services Name Role Phone ARLETH FULLER CP Unavailable Allergies, Adverse Reactions, Alerts Substance Reaction Event Type MetFORMIN HCl ER shakiness, wt loss Drug Allergy Sulfamethoxazole-TMP DS Info Not Available Drug Allergy Septra Info Not Available Drug Allergy Penicillin V Potassium Info Not Available Drug Allergy Bactrim Info Not Available Drug Allergy Problems Problem Type Condition Code Onset Dates Condition Status Problem Panic disorder without agoraphobia 300.01 Active Problem Other abnormal glucose 790.29 Active Problem Nondependent tobacco use disorder 305.1 Active Problem Bipolar disorder, unspecified 296.80 Active Assessment Dental examination Z01.20 Active Medications Medication Code System Code Instructions Start Date End Date Status Dosage Toprol XL [facility] [address]-62 50 MG Orally Once a day at hs May 10, 2015 1 tablet Lexapro [facility] [address]-33 20 MG Jul 30, 2014 2 tablet by Oral route 1 time per day Xanax [facility] [address]-46 1 MG September 23, 2014 1 tablet by Oral route 4 times per day EpiPen NDC 0 0.3 MG/0.3ML (1:1000) Intramuscular PRN Apr 19, 2015 as directed Albuterol NDC 0 90 mcg/actuation Jul 17, 2012 2 puffs by Inhalation route 4 times per day PRN ZyrTEC [facility] [address]-70 10 MG Orally Once a day #120 samples Apr 19, 2015 1 tablet as needed Benztropine Mesylate ND 54895012784 1 MG TAKE ONE TABLET BY MOUTH TWICE DAILY Procedures Procedure Coding System Code Date AMALGAM-3 SURFACES PRIMARY/PERM CPT-4 D2160 Jun 08, 2015 AMALGAM-3 SURFACES PRIMARY/PERM CPT-4 D2160 Jun 08, 2015 Vital Signs Date/Time: Jun 15, 2015 Blood Pressure Diastolic 66 mmHg Blood Pressure Systolic 122 mmHg Results No Known Results Summary Purpose eClinicalWorks Submission
--- OUTSIDE RECORDS SUMMARY | 2016-11-04 20:33 | XMS REPORT ---
Author Author MARIA DE JESUS MERCADO Organization eClinicalWorks Address Unknown Phone Unavailable Care Team Providers Care Special Inspector Name Role Phone MARIA DE JESUS [...]
--- OUTSIDE RECORDS SUMMARY | 2016-11-04 20:33 | XMS REPORT ---
Author Author MARIA DE JESUS MERCADO [facility] eClinicalWorks Address Unknown Phone Unavailable Care Team Providers Care Director Of It Operations Name Role Phone MARIA DE JESUS MERCADO Unavailable Allergies, Adverse Reactions, Alerts Substance Reaction Event Type MetFORMIN HCl ER shakiness, wt loss Drug Allergy Sulfamethoxazole-Trimethoprim Info Not Available Drug Allergy Septra Info Not Available Drug Allergy Penicillin V Potassium Info Not Available Drug Allergy Bactrim Info Not Available Drug Allergy Problems Problem Type Condition Code Onset Dates Condition Status Assessment Tremor R25.1 Active Problem Nausea R11.0 Active Problem Forgetfulness R68.89 Active Assessment Headache R51 Active Assessment Back pain with right-sided radiculopathy M54.10 Active [...] Start Date End Date Status Dosage ZyrTEC [facility] [address]-80 10 MG Orally Once a day #120 samples Apr 19, 2015 1 tablet as needed Xanax [facility] [address]-69 1 MG Orally 4 times a day September 23, 2014 1 tablet as needed for anxiety Lyrica [facility] [address]-47 75 MG Orally Twice a day September 21, 2015 1 capsule Hydrocodone-Acetaminophen [facility] [address]-76 5-325 MG Orally every 6 hrs September 09, 2015 1 tablet as needed Omeprazole [facility] [address]-97 20 MG Orally Once a day 2 capsules Lexapro [facility] [address]-79 20 MG Orally Once a day 2 tablets Gabapentin [facility] [address]-19 300 MG Orally Three times a day 1 capsule Blood Glucose Monitor [facility] 0 1 glucometer 2 times a day November 10, 2015 test blood sugars Benztropine Mesylate [facility] [address]-09 1 MG Orally 3 times a day 1 tablet Toprol XL [facility] [address]-42 50 mg Orally Once a day at hs 1 tablet Meclizine HCl [facility] [address]-31 25 MG Orally 3 times a day December 30, 2015 1 tablet as needed for dizziness EpiPen NDC 0 0.3 MG/0.3ML (1:1000) Intramuscular PRN Apr 19, 2015 as directed Test strips NDC 0 Test Strips November 10, 2015 as directed Procedures Procedure Coding System Code Date THER/PROPH/DIAG INJ, SC/IM CPT-4 79240 January 10, 2016 Office Visit, Est Pt., Level 3 CPT-4 86960 January 10, 2016 TORADOL (IM) 60 MG/2ML (UP TO 15 MG) CPT-4 J1885 January 10, 2016 Vital Signs Date/Time: January 10, 2016 Cardiac Monitoring Heart Rate 82 bpm Weight 128.6 lbs Height 64 in BMI 22.07 Index Blood Pressure Diastolic 74 mmHg Blood Pressure Systolic 124 mmHg Results No Known Results Summary Purpose eClinicalWorks Submission
--- OUTSIDE RECORDS SUMMARY | 2016-11-04 20:33 | XMS REPORT ---
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
--- OUTSIDE RECORDS SUMMARY | 2016-11-04 20:33 | XMS REPORT ---
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 902675549 Problem Forgetfulness R68.89 Active 13616825 Problem Nausea R11.0 Active 661519679 Problem Headache R51 Active 43652050 Problem Seasonal allergic rhinitis due to pollen J30.1 Active 74421024 Problem Asthma exacerbation J45.901 Active 161919677 Problem Lumbago with sciatica, left side M54.42 Active 018267033 Problem Lumbago with sciatica, right side M54.41 Active 488894784 Problem Gastroesophageal reflux disease without esophagitis K21.9 Active 584087188 Problem Back pain with right-sided radiculopathy M54.10 Active 904014833 ALLERGIES Unknown Allergies SOCIAL HISTORY No smoking Hx information available PLAN OF CARE VITAL SIGNS MEDICATIONS Medication Instructions Dosage Frequency Start Date End Date Duration Status Topamax 50 mg Orally Twice a day 1 tablet 12h May, Active RESULTS No Results PROCEDURES No Known procedures IMMUNIZATIONS No Known Immunizations
--- OUTSIDE RECORDS SUMMARY | 2016-11-04 20:33 | XMS REPORT ---
Author Author MARIA DE JESUS MERCADO Organization eClinicalWorks Address Unknown Phone Unavailable Care Team Providers Care Customer Support Consultant Name Role Phone MARIA DE JESUS MERCADO CP Unavailable Allergies No Known Allergies Problems Problem Type Condition ICD-9 Code Onset Dates Condition Status Problem Cough 786.2 Active Problem Hypoglycemia, unspecified 251.2 Active Problem Acute pharyngitis 462 Active Problem Bipolar disorder, unspecified 296.80 Active Problem Personal history of tobacco use, presenting hazards to health V15.82 Active Problem Hematuria, unspecified 599.70 Active Problem Panic disorder without agoraphobia 300.01 Active Problem Tension headache 307.81 Active Problem Cramp of limb 729.82 Active Problem Unspecified urticaria 708.9 Active Problem Other abnormal glucose 790.29 Active Problem Nondependent tobacco use disorder 305.1 Active Problem Diabetes mellitus without mention of complication, type II or unspecified type, uncontrolled 250.02 Active Problem Unspecified breast screening V76.10 Active Problem Routine gynecological examination V72.31 Active Problem Screening for malignant neoplasm of the cervix V76.2 Active Problem Unspecified contraceptive management V25.9 Active Problem Lumbago 724.2 Active Problem Neck sprain and strain 847.0 Active Problem Wheezing 786.07 Active Problem Idiopathic urticaria 708.1 Active Problem Disturbance of skin sensation 782.0 Active Problem Headache 784.0 Active Problem Postconcussion syndrome 310.2 Active Problem Pain in soft tissues of limb 729.5 Active Medications Medication Code System Code Instructions Start Date End Date Status Dosage Lexapro [facility] [address]-94 20 MG Jul 30, 2014 2 tablet by Oral route 1 time per day Results No Known Results Summary Purpose eClinicalWorks Submission
--- OUTSIDE RECORDS SUMMARY | 2016-11-04 20:34 | XMS REPORT ---
Author Author ERIC SALGADO Organization eClinicalWorks Address Unknown Phone Unavailable Care Team Providers Care Detective Chief Name Role Phone ERIC SALGADO CP Unavailable Allergies No Known Allergies Problems [...]
--- OUTSIDE RECORDS SUMMARY | 2016-11-04 20:34 | XMS REPORT ---
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
--- OUTSIDE RECORDS SUMMARY | 2016-11-04 20:34 | XMS REPORT ---
Author Author MARIA DE JESUS MERCADO Organization [employer] Address Unknown Phone Unavailable Care Team Providers Care Wrapper Off Name Role Phone MARIA DE JESUS MERCADO CP Unavailable Allergies No Known Allergies Problems Problem Type Condition Code Onset Dates Condition Status Problem Panic disorder without agoraphobia 300.01 Active Problem Other abnormal glucose 790.29 Active Problem Nondependent tobacco use disorder 305.1 Active Problem Bipolar disorder, unspecified 296.80 Active Medications Medication Code System Code Instructions Start Date End Date Status Dosage Xanax [facility] [address]-22 1 MG September 23, 2014 1 tablet by Oral route 4 times per day Results No Known Results Summary Purpose [employer] Submission
--- OUTSIDE RECORDS SUMMARY | 2016-11-04 20:34 | XMS REPORT ---
Author Author MARIA DE JESUS MERCADO Organization [employer] Address Unknown Phone Unavailable Care Team Providers Care Pt Skilled Name Role Phone MARIA DE JESUS MERCADO [...]
--- OUTSIDE RECORDS SUMMARY | 2016-11-04 20:36 | XMS REPORT | Continuity of Care Document ---
Author Author Formerly [facility] Address Unknown Phone Unavailable Allergies Active Description Code Type Severity Reaction Onset Reported/Identified Relationship to Patient Clinical Status Yes Penicillins Drug Allergy N/A N/A 07/27/2008 Yes Penicillins Drug Allergy 07/27/2008 Yes Septra Drug Allergy N/A N/A 02/28/2012 Yes Septra Drug Allergy 02/28/2012 Yes Bactrim Drug Allergy N/A N/A 04/20/2013 Yes Sulfa (Sulfonamide Antibiotics) Drug Allergy N/A N/A 04/20/2013 Yes metformin 500 mg tablet,ER isamar.retention 24 hr Drug Allergy N/A N/A 03/03/2014 Yes Xanax XR 2 mg tablet extended release 24 hr Drug Allergy N/A N/A 06/21/2014 Yes moxifloxacin [id number] Drug Allergy Mild tongue swelling 06/13/2016 Yes Penicillins [id number] Drug Allergy Mild N/A 06/13/2016 Yes Sulfa (Sulfonamide Antibiotics) [id number] Drug Allergy Unknown N/A 06/13/2016 Medications Problems Date Dx Coded Attending Type Code Diagnosis Diagnosed By 02/06/2008 MARIA DE JESUS MERCADO APRN S V58.69 Medication High Risk 02/06/2008 V58.69 Medication High Risk 02/06/2008 MARIA DE JESUS MERCADO APRN S V58.69 Medication High Risk 02/06/2008 V58.69 Medication High Risk 02/06/2008 MARIA DE JESUS MERCADO APRN S V58.69 Medication High Risk 02/06/2008 ROSALINO SULLIVAN APRN V58.69 Medication High Risk 02/06/2008 MARIA DE JESUS MERCADO APRN S V58.69 Medication High Risk 02/06/2008 MARIA DE JESUS MERCADO APRN S V58.69 Medication High Risk 02/06/2008 MARIA DE JESUS MERCADO APRN S V58.69 Medication High Risk 02/06/2008 RUDY MOROCHO, [place] V58.69 Medication High Risk 02/06/2008 ALAINA TRUONG, MONA Au V58.69 Medication High Risk 02/06/2008 JESS YOUNG ADULT LIBRARIAN, MARIA DE JESUS S V58.69 Medication High Risk 02/06/2008 JESS YOUNG ADULT LIBRARIAN, MARIA DE JESUS S V58.69 Medication High Risk 02/06/2008 JESS YOUNG ADULT LIBRARIAN, MARIA DE JESUS S V58.69 Medication High Risk 02/06/2008 JESS YOUNG ADULT LIBRARIAN, MARIA DE JESUS S V58.69 Medication High Risk 02/06/2008 JESS YOUNG ADULT LIBRARIAN, MARIA DE JESUS S V58.69 Medication High Risk 02/06/2008 JESS YOUNG ADULT LIBRARIAN, MARIA DE JESUS S V58.69 Medication High Risk 02/06/2008 MANNY ZAMUDIO, JUAN R Leonardo V58.69 Medication High Risk 02/06/2008 JESS YOUNG ADULT LIBRARIAN, MARIA DE JESUS S V58.69 Medication High Risk 03/10/2008 JLUIS MERCADO APRNNDA S 296.90 Unspecified Episodic Mood Disorder 03/10/2008 JESS RUIZ, MARIA DE JESUS S 300.00 An Anxiety Unspec 03/10/2008 JESS RUIZ, MARIA DE JESUS S 307.47 SI DYSSOMNIA NOS 03/10/2008 296.90 Unspecified Episodic Mood Disorder 03/10/2008 300.00 An Anxiety Unspec 03/10/2008 307.47 SI DYSSOMNIA NOS 03/10/2008 JESS RUIZ, MARIA DE JESUS S 296.90 Unspecified Episodic Mood Disorder 03/10/2008 JESS RUIZ, MARIA DE JESUS S 300.00 An Anxiety Unspec 03/10/2008 JESS RUIZ, MARIA DE JESUS S 307.47 SI DYSSOMNIA NOS 03/10/2008 296.90 Unspecified Episodic Mood Disorder 03/10/2008 300.00 An Anxiety Unspec 03/10/2008 307.47 SI DYSSOMNIA NOS 03/10/2008 JESS RUIZ MARIA DE JESUS S 296.90 Unspecified Episodic Mood Disorder 03/10/2008 JESS RUIZ MARIA DE JESUS S 300.00 An Anxiety Unspec 03/10/2008 JLUIS MERCADO APRNNDA S 307.47 SI DYSSOMNIA NOS 03/10/2008 SULLIVAN YOUNG ADULT LIBRARIAN, ROSALINO R 296.90 Unspecified Episodic Mood Disorder 03/10/2008 SULLIVAN YOUNG ADULT LIBRARIAN, ROSALINO R 300.00 An Anxiety Unspec 03/10/2008 SULLIVAN YOUNG ADULT LIBRARIAN, ROSALINO R 307.47 SI DYSSOMNIA NOS 03/10/2008 JESS YOUNG ADULT LIBRARIAN, MARIA DE JESUS S 296.90 Unspecified Episodic Mood Disorder 03/10/2008 JESS YOUNG ADULT LIBRARIAN, MARIA DE JESUS S 300.00 An Anxiety Unspec 03/10/2008 JESS YOUNG ADULT LIBRARIAN, MARIA DE JESUS S 307.47 SI DYSSOMNIA NOS 03/10/2008 JESS YOUNG ADULT LIBRARIAN, MARIA DE JESUS S 296.90 Unspecified Episodic Mood Disorder 03/10/2008 JESS YOUNG ADULT LIBRARIAN, MARIA DE JESUS S 300.00 An Anxiety Unspec 03/10/2008 JESS YOUNG ADULT LIBRARIAN, MARIA DE JESUS S 307.47 SI DYSSOMNIA NOS 03/10/2008 JESS YOUNG ADULT LIBRARIAN, MARIA DE JESUS S 296.90 Unspecified Episodic Mood Disorder 03/10/2008 JESS SANTOSN, MARIA DE JESUS S 300.00 An Anxiety Unspec 03/10/2008 JESS RUIZ, MARIA DE JESUS S 307.47 SI DYSSOMNIA NOS 03/10/2008 MT GRANT MD 296.90 Unspecified Episodic Mood Disorder 03/10/2008 MT GRANT MD 300.00 An Anxiety Unspec 03/10/2008 MT GRANT MD 307.47 SI DYSSOMNIA NOS 03/10/2008 FOLEY DO, MONA K 296.90 Unspecified Episodic Mood Disorder 03/10/2008 FOLEY DO, MONA K 300.00 An Anxiety Unspec 03/10/2008 FOLEY DO, MONA K 307.47 SI DYSSOMNIA NOS 03/10/2008 JESS SANTOSN, MARIA DE JESUS S 296.90 Unspecified Episodic Mood Disorder 03/10/2008 JESS SANTOSN, MARIA DE JESUS S 300.00 An Anxiety Unspec 03/10/2008 JESS RUIZ, MARIA DE JESUS S 307.47 SI DYSSOMNIA NOS 03/10/2008 JESS YOUNG ADULT LIBRARIAN, MARIA DE JESUS S 296.90 Unspecified Episodic Mood Disorder 03/10/2008 JESS YOUNG ADULT LIBRARIAN, MARIA DE JESUS S 300.00 An Anxiety Unspec 03/10/2008 JESS RUIZ, MARIA DE JESUS S 307.47 SI DYSSOMNIA NOS 03/10/2008 JESS YOUNG ADULT LIBRARIAN, MARIA DE JESUS S 296.90 Unspecified Episodic Mood Disorder 03/10/2008 JESS YOUNG ADULT LIBRARIAN, MARIA DE JESUS S 300.00 An Anxiety Unspec 03/10/2008 JESS YOUNG ADULT LIBRARIAN, MARIA DE JESUS S 307.47 SI DYSSOMNIA NOS 03/10/2008 JESS YOUNG ADULT LIBRARIAN, MARIA DE JESUS S 296.90 Unspecified Episodic Mood Disorder 03/10/2008 JESS YOUNG ADULT LIBRARIAN, MARIA DE JESUS S 300.00 An Anxiety Unspec 03/10/2008 JESS YOUNG ADULT LIBRARIAN, MARIA DE JESUS S 307.47 SI DYSSOMNIA NOS 03/10/2008 JESS YOUNG ADULT LIBRARIAN, MARIA DE JESUS S 296.90 Unspecified Episodic Mood Disorder 03/10/2008 JESS YOUNG ADULT LIBRARIAN, MARIA DE JESUS S 300.00 An Anxiety Unspec 03/10/2008 JESS YOUNG ADULT LIBRARIAN, MARIA DE JESUS S 307.47 SI DYSSOMNIA NOS 03/10/2008 JESS YOUNG ADULT LIBRARIAN, MARIA DE EJSUS S 296.90 Unspecified Episodic Mood Disorder 03/10/2008 JESS YOUNG ADULT LIBRARIAN, MARIA DE JESUS S 300.00 An Anxiety Unspec 03/10/2008 JESS YOUNG ADULT LIBRARIAN, MARIA DE JESUS S 307.47 SI DYSSOMNIA NOS 03/10/2008 MANNY PHD, JUAN R A 296.90 Unspecified Episodic Mood Disorder 03/10/2008 MANNY PHD, JUAN R A 300.00 An Anxiety Unspec 03/10/2008 MANNY PHD, JUAN R A 307.47 SI DYSSOMNIA NOS 03/10/2008 JESS RUIZ, MARIA DE JESUS S 296.90 Unspecified Episodic Mood Disorder 03/10/2008 JESS SANTOSN, MARIA DE JESUS S 300.00 An Anxiety Unspec 03/10/2008 JESS YOUNG ADULT LIBRARIAN, MARIA DE JESUS S 307.47 SI DYSSOMNIA NOS 04/08/2008 JESS YOUNG ADULT LIBRARIAN, MARIA DE JESUS S 995.20 Unspecified Adverse Effect Of Unspecified Drug Medicinal And Biological Substance 04/08/2008 995.20 Unspecified Adverse Effect Of Unspecified Drug Medicinal And Biological Substance 04/08/2008 JESS SANTOSN, MARIA DE JESUS S 995.20 Unspecified Adverse Effect Of Unspecified Drug Medicinal And Biological Substance 04/08/2008 995.20 Unspecified Adverse Effect Of Unspecified Drug Medicinal And Biological Substance 04/08/2008 JESS RUIZ, MARIA DE JESUS S 995.20 Unspecified Adverse Effect Of Unspecified Drug Medicinal And Biological Substance 04/08/2008 ROSALINO SULLIVAN APRN 995.20 Unspecified Adverse Effect Of Unspecified Drug Medicinal And Biological Substance 04/08/2008 JESS RUIZ MARIA DE JESUS S 995.20 Unspecified Adverse Effect Of Unspecified Drug Medicinal And Biological Substance 04/08/2008 JESS RUIZ MARIA DE JESUS S 995.20 Unspecified Adverse Effect Of Unspecified Drug Medicinal And Biological Substance 04/08/2008 JESS RUIZ, MARIA DE JESUS S 995.20 Unspecified Adverse Effect Of Unspecified Drug Medicinal And Biological Substance 04/08/2008 MT GRANT MD 995.20 Unspecified Adverse Effect Of Unspecified Drug Medicinal And Biological Substance 04/08/2008 MONA FOLEY DO 995.20 Unspecified Adverse Effect Of Unspecified Drug Medicinal And Biological Substance 04/08/2008 JLUIS MERCADO APRNNDA S 995.20 Unspecified Adverse Effect Of Unspecified Drug Medicinal And Biological Substance 04/08/2008 JLUIS MERCADO APRNNDA S 995.20 Unspecified Adverse Effect Of Unspecified Drug Medicinal And Biological Substance 04/08/2008 JESS RUIZ MARIA DE JESUS S 995.20 Unspecified Adverse Effect Of Unspecified Drug Medicinal And Biological Substance 04/08/2008 JESS RUIZ MARIA DE JESUS S 995.20 Unspecified Adverse Effect Of Unspecified Drug Medicinal And Biological Substance 04/08/2008 JESS RUIZ MARIA DE JESUS S 995.20 Unspecified Adverse Effect Of Unspecified Drug Medicinal And Biological Substance 04/08/2008 JESS RUIZ, MARIA DE JESUS S 995.20 Unspecified Adverse Effect Of Unspecified Drug Medicinal And Biological Substance 04/08/2008 MANNY ZAMUDIO, JUAN R Leonardo 995.20 Unspecified Adverse Effect Of Unspecified Drug Medicinal And Biological Substance 04/08/2008 JESS RUIZ MARIA DE JESUS S 995.20 Unspecified Adverse Effect Of Unspecified Drug Medicinal And Biological Substance 07/27/2008 JLUIS MERCADO APRNNDA S 719.42 Pain In Joint Involving Upper Arm 07/27/2008 719.42 Pain In Joint Involving Upper Arm 07/27/2008 JLUIS MERCADO APRNNDA S 719.42 Pain In Joint Involving Upper Arm 07/27/2008 719.42 Pain In Joint Involving Upper Arm 07/27/2008 JLUIS MERCADO APRNNDA S 719.42 Pain In Joint Involving Upper Arm 07/27/2008 ROSALINO SULLIVAN APRN 719.42 Pain In Joint Involving Upper Arm 07/27/2008 JLUIS MERCADO APRNNDA S 719.42 Pain In Joint Involving Upper Arm 07/27/2008 JLUIS MERCADO APRNNDA S 719.42 Pain In Joint Involving Upper Arm 07/27/2008 JLUIS MERCADO APRNNDA S 719.42 Pain In Joint Involving Upper Arm 07/27/2008 RUDY MOROCHO, [place] 719.42 Pain In Joint Involving Upper Arm 07/27/2008 MONA FOLEY DO 719.42 Pain In Joint Involving Upper Arm 07/27/2008 JLUIS MERCADO APRNNDA S 719.42 Pain In Joint Involving Upper Arm 07/27/2008 JLUIS MERCADO APRNNDA S 719.42 Pain In Joint Involving Upper Arm 07/27/2008 JLUIS MERCADO APRNNDA S 719.42 Pain In Joint Involving Upper Arm 07/27/2008 JLUIS MERCADO APRNNDA S 719.42 Pain In Joint Involving Upper Arm 07/27/2008 JLUIS MERCADO APRNNDA S 719.42 Pain In Joint Involving Upper Arm 07/27/2008 JLUIS MERCADO APRNNDA S 719.42 Pain In Joint Involving Upper Arm 07/27/2008 MANNY ZAMUDIO, JUAN R Leonardo 719.42 Pain In Joint Involving Upper Arm 07/27/2008 JLUIS MERCADO APRNNDA S 719.42 Pain In Joint Involving Upper Arm 10/15/2008 JLUIS MERCADO APRNNDA S 790.29 Hyperglycemia 10/15/2008 790.29 Hyperglycemia 10/15/2008 JESS RUIZ MARIA DE JESUS S 790.29 Hyperglycemia 10/15/2008 790.29 Hyperglycemia 10/15/2008 JLUIS MERCADO APRNNDA S 790.29 Hyperglycemia 10/15/2008 ROSALINO SULLIVAN APRN R 790.29 Hyperglycemia 10/15/2008 JESS YOUNG ADULT LIBRARIAN, MARIA DE JESUS S 790.29 Hyperglycemia 10/15/2008 JESS YOUNG ADULT LIBRARIAN, MARIA DE JESUS S 790.29 Hyperglycemia 10/15/2008 JESS YOUNG ADULT LIBRARIAN, MARIA DE JESUS S 790.29 Hyperglycemia 10/15/2008 MT GRANT MD 790.29 Hyperglycemia 10/15/2008 MONA FOLEY DO 790.29 Hyperglycemia 10/15/2008 JESS YOUNG ADULT LIBRARIAN, MARIA DE JESUS S 790.29 Hyperglycemia 10/15/2008 JESS YOUNG ADULT LIBRARIAN, MARIA DE JESUS S 790.29 Hyperglycemia 10/15/2008 JESS YOUNG ADULT LIBRARIAN, MARIA DE JESUS S 790.29 Hyperglycemia 10/15/2008 JESS YOUNG ADULT LIBRARIAN, MARIA DE JESUS S 790.29 Hyperglycemia 10/15/2008 JESS YOUNG ADULT LIBRARIAN, MARIA DE JESUS S 790.29 Hyperglycemia 10/15/2008 JESS YOUNG ADULT LIBRARIAN, MARIA DE JESUS S 790.29 Hyperglycemia 10/15/2008 MANNY ZAMUDIO, JUAN R Leonardo 790.29 Hyperglycemia 10/15/2008 JESS YOUNG ADULT LIBRARIAN, MARIA DE JESUS S 790.29 Hyperglycemia 12/31/2008 Ot 940.9 12/31/2008 Ot E849.0 12/31/2008 Ot E926.2 02/22/2009 JLUIS MERCADO APRNNDA S 300.4 DYSTHYMIC DISORDER 02/22/2009 JESS RUIZ, MARIA DE JESUS S 599.0 Urinary Tract Infection Site Not Specified 02/22/2009 300.4 DYSTHYMIC DISORDER 02/22/2009 599.0 Urinary Tract Infection Site Not Specified 02/22/2009 JESS RUIZ MARIA DE JESUS S 300.4 DYSTHYMIC DISORDER 02/22/2009 JESS RUIZ, MARIA DE JESUS S 599.0 Urinary Tract Infection Site Not Specified 02/22/2009 300.4 DYSTHYMIC DISORDER 02/22/2009 599.0 Urinary Tract Infection Site Not Specified 02/22/2009 JESS RUIZ MARIA DE JESUS S 300.4 DYSTHYMIC DISORDER 02/22/2009 JESS RUIZ MARIA DE JESUS S 599.0 Urinary Tract Infection Site Not Specified 02/22/2009 ROSALINO SULLIVAN APRN 300.4 DYSTHYMIC DISORDER 02/22/2009 UNIQUE SULLIVAN APRNIA R 599.0 Urinary Tract Infection Site Not Specified 02/22/2009 JESS YOUNG ADULT LIBRARIAN, MARIA DE JESUS S 300.4 DYSTHYMIC DISORDER 02/22/2009 JESS YOUNG ADULT LIBRARIAN, MARIA DE JESUS S 599.0 Urinary Tract Infection Site Not Specified 02/22/2009 JESS YOUNG ADULT LIBRARIAN, MARIA DE JESUS S 300.4 DYSTHYMIC DISORDER 02/22/2009 JESS YOUNG ADULT LIBRARIAN, MARIA DE JESUS S 599.0 Urinary Tract Infection Site Not Specified 02/22/2009 JESS YOUNG ADULT LIBRARIAN, MARIA DE JESUS S 300.4 DYSTHYMIC DISORDER 02/22/2009 JESS YOUNG ADULT LIBRARIAN, MARIA DE JESUS S 599.0 Urinary Tract Infection Site Not Specified 02/22/2009 MT GRANT MD 300.4 DYSTHYMIC DISORDER 02/22/2009 MT GRANT MD 599.0 Urinary Tract Infection Site Not Specified 02/22/2009 FOLEY DO, MONA K 300.4 DYSTHYMIC DISORDER 02/22/2009 FOLEY DO, MONA K 599.0 Urinary Tract Infection Site Not Specified 02/22/2009 JESS YOUNG ADULT LIBRARIAN, MARIA DE JESUS S 300.4 DYSTHYMIC DISORDER 02/22/2009 JESS YOUNG ADULT LIBRARIAN, MARIA DE JESUS S 599.0 Urinary Tract Infection Site Not Specified 02/22/2009 JESS YOUNG ADULT LIBRARIAN, MARIA DE JESUS S 300.4 DYSTHYMIC DISORDER 02/22/2009 JESS YOUNG ADULT LIBRARIAN, MARIA DE JESUS S 599.0 Urinary Tract Infection Site Not Specified 02/22/2009 JESS YOUNG ADULT LIBRARIAN, MARIA DE JESUS S 300.4 DYSTHYMIC DISORDER 02/22/2009 JESS YOUNG ADULT LIBRARIAN, MARIA DE JESUS S 599.0 Urinary Tract Infection Site Not Specified 02/22/2009 JESS YOUNG ADULT LIBRARIAN, MARIA DE JESUS S 300.4 DYSTHYMIC DISORDER 02/22/2009 JESS YOUNG ADULT LIBRARIAN, MARIA DE JESUS S 599.0 Urinary Tract Infection Site Not Specified 02/22/2009 JESS YOUNG ADULT LIBRARIAN, MARIA DE JESUS S 300.4 DYSTHYMIC DISORDER 02/22/2009 JESS YOUNG ADULT LIBRARIAN, MARIA DE JESUS S 599.0 Urinary Tract Infection Site Not Specified 02/22/2009 JESS YOUNG ADULT LIBRARIAN, MARIA DE JESUS S 300.4 DYSTHYMIC DISORDER 02/22/2009 JESS YOUNG ADULT LIBRARIAN, MARIA DE JESUS S 599.0 Urinary Tract Infection Site Not Specified 02/22/2009 MANNY PHD, JUAN R Leonardo 300.4 DYSTHYMIC DISORDER 02/22/2009 MANNY PHD, JUAN R Leonardo 599.0 Urinary Tract Infection Site Not Specified 02/22/2009 JESS YOUNG ADULT LIBRARIAN, MARIA DE JESUS S 300.4 DYSTHYMIC DISORDER 02/22/2009 JESS YOUNG ADULT LIBRARIAN, MARIA DE JESUS S 599.0 Urinary Tract Infection Site Not Specified 06/15/2009 JESS YOUNG ADULT LIBRARIAN, MARIA DE JESUS S V74.1 Screening Examination For Pulmonary Tuberculosis 06/15/2009 V74.1 Screening Examination For Pulmonary Tuberculosis 06/15/2009 JESS YOUNG ADULT LIBRARIAN, MARIA DE JESUS S V74.1 Screening Examination For Pulmonary Tuberculosis 06/15/2009 V74.1 Screening Examination For Pulmonary Tuberculosis 06/15/2009 JESS YOUNG ADULT LIBRARIAN, MARIA DE JESUS S V74.1 Screening Examination For Pulmonary Tuberculosis 06/15/2009 LAURIE RUIZ, ROSALINO Keller V74.1 Screening Examination For Pulmonary Tuberculosis 06/15/2009 JESS YOUNG ADULT LIBRARIAN, MARIA DE JESUS S V74.1 Screening Examination For Pulmonary Tuberculosis 06/15/2009 JESS YOUNG ADULT LIBRARIAN, MARIA DE JESUS S V74.1 Screening Examination For Pulmonary Tuberculosis 06/15/2009 JESS YOUNG ADULT LIBRARIAN, MARIA DE JESUS S V74.1 Screening Examination For Pulmonary Tuberculosis 06/15/2009 MT GRANT MD V74.1 Screening Examination For Pulmonary Tuberculosis 06/15/2009 MONA FOLEY DO V74.1 Screening Examination For Pulmonary Tuberculosis 06/15/2009 JESS YOUNG ADULT LIBRARIAN, MARIA DE JESUS S V74.1 Screening Examination For Pulmonary Tuberculosis 06/15/2009 JESS YOUNG ADULT LIBRARIAN, MARIA DE JESUS S V74.1 Screening Examination For Pulmonary Tuberculosis 06/15/2009 JESS YOUNG ADULT LIBRARIAN, MARIA DE JESUS S V74.1 Screening Examination For Pulmonary Tuberculosis 06/15/2009 JESS YOUNG ADULT LIBRARIAN, MARIA DE JESUS S V74.1 Screening Examination For Pulmonary Tuberculosis 06/15/2009 JESS YOUNG ADULT LIBRARIAN, MARIA DE JESUS S V74.1 Screening Examination For Pulmonary Tuberculosis 06/15/2009 JESS YOUNG ADULT LIBRARIAN, MARIA DE JESUS S V74.1 Screening Examination For Pulmonary Tuberculosis 06/15/2009 MANNY ZAMUDIOJUAN R V74.1 Screening Examination For Pulmonary Tuberculosis 06/15/2009 JESS YOUNG ADULT LIBRARIAN, MARIA DE JESUS S V74.1 Screening Examination For Pulmonary Tuberculosis 08/22/2009 JESS YOUNG ADULT LIBRARIAN, MARIA DE JESUS S 465.9 Acute Upper Respiratory Infections Of Unspecified Site 08/22/2009 JESS YOUNG ADULT LIBRARIAN, MARIA DE JESUS S 599.70 Hematuria, Unspecified 08/22/2009 465.9 Acute Upper Respiratory Infections Of Unspecified Site 08/22/2009 599.70 Hematuria, Unspecified 08/22/2009 JESS YOUNG ADULT LIBRARIAN, MARIA DE JESUS S 465.9 Acute Upper Respiratory Infections Of Unspecified Site 08/22/2009 JESS YOUNG ADULT LIBRARIAN, MARIA DE JESUS S 599.70 Hematuria, Unspecified 08/22/2009 465.9 Acute Upper Respiratory Infections Of Unspecified Site 08/22/2009 599.70 Hematuria, Unspecified 08/22/2009 JESS YOUNG ADULT LIBRARIAN, MARIA DE JESUS S 465.9 Acute Upper Respiratory Infections Of Unspecified Site 08/22/2009 JESS YOUNG ADULT LIBRARIAN, MARIA DE JESUS S 599.70 Hematuria, Unspecified 08/22/2009 SULLIVAN YOUNG ADULT LIBRARIAN, ROSALINO R 465.9 Acute Upper Respiratory Infections Of Unspecified Site 08/22/2009 SULLIVAN YOUNG ADULT LIBRARIAN, ROSALINO R 599.70 Hematuria, Unspecified 08/22/2009 JESS YOUNG ADULT LIBRARIAN, MARIA DE JESUS S 465.9 Acute Upper Respiratory Infections Of Unspecified Site 08/22/2009 JESS YOUNG ADULT LIBRARIAN, MARIA DE JESUS S 599.70 Hematuria, Unspecified 08/22/2009 JESS YOUNG ADULT LIBRARIAN, MARIA DE JESUS S 465.9 Acute Upper Respiratory Infections Of Unspecified Site 08/22/2009 JESS YOUNG ADULT LIBRARIAN, MARIA DE JESUS S 599.70 Hematuria, Unspecified 08/22/2009 JESS YOUNG ADULT LIBRARIAN, MARIA DE JESUS S 465.9 Acute Upper Respiratory Infections Of Unspecified Site 08/22/2009 JESS YOUNG ADULT LIBRARIAN, MARIA DE JESUS S 599.70 Hematuria, Unspecified 08/22/2009 MT GRANT MD 465.9 Acute Upper Respiratory Infections Of Unspecified Site 08/22/2009 MT GRANT MD 599.70 Hematuria, Unspecified 08/22/2009 MONA FOLEY DO 465.9 Acute Upper Respiratory Infections Of Unspecified Site 08/22/2009 FOLEY DO, MONA K 599.70 Hematuria, Unspecified 08/22/2009 JESS YOUNG ADULT LIBRARIAN, MARIA DE JESUS S 465.9 Acute Upper Respiratory Infections Of Unspecified Site 08/22/2009 JESS YOUNG ADULT LIBRARIAN, MARIA DE JESUS S 599.70 Hematuria, Unspecified 08/22/2009 JESS YOUNG ADULT LIBRARIAN, MARIA DE JESUS S 465.9 Acute Upper Respiratory Infections Of Unspecified Site 08/22/2009 JESS YOUNG ADULT LIBRARIAN, MARIA DE JESUS S 599.70 Hematuria, Unspecified 08/22/2009 JESS YOUNG ADULT LIBRARIAN, MARIA DE JESUS S 465.9 Acute Upper Respiratory Infections Of Unspecified Site 08/22/2009 JESS YOUNG ADULT LIBRARIAN, MARIA DE JESUS S 599.70 Hematuria, Unspecified 08/22/2009 JESS YOUNG ADULT LIBRARIAN, MARIA DE JESUS S 465.9 Acute Upper Respiratory Infections Of Unspecified Site 08/22/2009 JESS YOUNG ADULT LIBRARIAN, MARIA DE JESUS S 599.70 Hematuria, Unspecified 08/22/2009 JESS YOUNG ADULT LIBRARIAN, MARIA DE JESUS S 465.9 Acute Upper Respiratory Infections Of Unspecified Site 08/22/2009 JESS YOUNG ADULT LIBRARIAN, MARIA DE JESUS S 599.70 Hematuria, Unspecified 08/22/2009 JESS YOUNG ADULT LIBRARIAN, MARIA DE JESUS S 465.9 Acute Upper Respiratory Infections Of Unspecified Site 08/22/2009 JESS YOUNG ADULT LIBRARIAN, MARIA DE JESUS S 599.70 Hematuria, Unspecified 08/22/2009 MANNY PHD, JUAN R A 465.9 Acute Upper Respiratory Infections Of Unspecified Site 08/22/2009 MANNY PHD, JUAN R A 599.70 Hematuria, Unspecified 08/22/2009 JESS YOUNG ADULT LIBRARIAN, MARIA DE JESUS S 465.9 Acute Upper Respiratory Infections Of Unspecified Site 08/22/2009 JESS YOUNG ADULT LIBRARIAN, MARIA DE JESUS S 599.70 Hematuria, Unspecified 08/24/2009 JESS YOUNG ADULT LIBRARIAN, MARIA DE JESUS S 486 Pneumonia, Organism Unspecified 08/24/2009 486 Pneumonia, Organism Unspecified 08/24/2009 JESS YOUNG ADULT LIBRARIAN, MARIA DE JESUS S 486 Pneumonia, Organism Unspecified 08/24/2009 486 Pneumonia, Organism Unspecified 08/24/2009 JESS YOUNG ADULT LIBRARIAN, MARIA DE JESUS S 486 Pneumonia, Organism Unspecified 08/24/2009 SULLIVAN YOUNG ADULT LIBRARIAN, ROSALINO R 486 Pneumonia, Organism Unspecified 08/24/2009 JESS YOUNG ADULT LIBRARIAN, MARIA DE JESUS S 486 Pneumonia, Organism Unspecified 08/24/2009 JESS YOUNG ADULT LIBRARIAN, MARIA DE JESUS S 486 Pneumonia, Organism Unspecified 08/24/2009 JESS YOUNG ADULT LIBRARIAN, MARIA DE JESUS S 486 Pneumonia, Organism Unspecified 08/24/2009 RUDY MOROCHO, [place] 486 Pneumonia, Organism Unspecified 08/24/2009 MONA FOLEY DO 486 Pneumonia, Organism Unspecified 08/24/2009 JESS YOUNG ADULT LIBRARIAN, MARIA DE JESUS S 486 Pneumonia, Organism Unspecified 08/24/2009 JESS YOUNG ADULT LIBRARIAN, MARIA DE JESUS S 486 Pneumonia, Organism Unspecified 08/24/2009 JESS YOUNG ADULT LIBRARIAN, MARIA DE JESUS S 486 Pneumonia, Organism Unspecified 08/24/2009 JESS YOUNG ADULT LIBRARIAN, MARIA DE JESUS S 486 Pneumonia, Organism Unspecified 08/24/2009 JESS YOUNG ADULT LIBRARIAN, MARIA DE JESUS S 486 Pneumonia, Organism Unspecified 08/24/2009 JESS YOUNG ADULT LIBRARIAN, MARIA DE JESUS S 486 Pneumonia, Organism Unspecified 08/24/2009 MANNY PHD, JUAN R A 486 Pneumonia, Organism Unspecified 08/24/2009 JESS YOUNG ADULT LIBRARIAN, MARIA DE JESUS S 486 Pneumonia, Organism Unspecified 08/26/2009 Ot 486 PNEUMONIA, ORGANISM NOS 08/26/2009 Ot 599.70 HEMATURIA, UNSPECIFIED 08/26/2009 Ot 786.2 02/07/2010 JESS YOUNG ADULT LIBRARIAN, MARIA DE JESUS S 788.1 Dysuria 02/07/2010 788.1 Dysuria 02/07/2010 JESS YOUNG ADULT LIBRARIAN, MARIA DE JESUS S 788.1 Dysuria 02/07/2010 788.1 Dysuria 02/07/2010 JESS YOUNG ADULT LIBRARIAN, MARIA DE JESUS S 788.1 Dysuria 02/07/2010 SULLIVAN YOUNG ADULT LIBRARIAN, ROSALINO R 788.1 Dysuria 02/07/2010 JESS YOUNG ADULT LIBRARIAN, MARIA DE JESUS S 788.1 Dysuria 02/07/2010 JESS YOUNG ADULT LIBRARIAN, MARIA DE JESUS S 788.1 Dysuria 02/07/2010 JESS YOUNG ADULT LIBRARIAN, MARIA DE JESUS S 788.1 Dysuria 02/07/2010 RUDY MOROCHO, [place] 788.1 Dysuria 02/07/2010 MONA FOLEY DO 788.1 Dysuria 02/07/2010 JESS YOUNG ADULT LIBRARIAN, MARIA DE JESUS S 788.1 Dysuria 02/07/2010 JESS YOUNG ADULT LIBRARIAN, MARIA DE JESUS S 788.1 Dysuria 02/07/2010 JESS YOUNG ADULT LIBRARIAN, MARIA DE JESUS S 788.1 Dysuria 02/07/2010 JESS YOUNG ADULT LIBRARIAN, MARIA DE JESUS S 788.1 Dysuria 02/07/2010 JESS YOUNG ADULT LIBRARIAN, MARIA DE JESUS S 788.1 Dysuria 02/07/2010 JESS YOUNG ADULT LIBRARIAN, MARIA DE JESUS S 788.1 Dysuria 02/07/2010 MANNY ZAMUDIO, JUAN R A 788.1 Dysuria 02/07/2010 JESS YOUNG ADULT LIBRARIAN, MARIA DE JESUS S 788.1 Dysuria 02/21/2010 JESS YOUNG ADULT LIBRARIAN, MARIA DE JESUS S 346.90 Migraine Unspecified Without Intractable Migraine 02/21/2010 JESS YOUNG ADULT LIBRARIAN, MARIA DE JESUS S 780.79 Fatigue 02/21/2010 346.90 Migraine Unspecified Without Intractable Migraine 02/21/2010 780.79 Fatigue 02/21/2010 JESS YOUNG ADULT LIBRARIAN, MARIA DE JESUS S 346.90 Migraine Unspecified Without Intractable Migraine 02/21/2010 JESS YOUNG ADULT LIBRARIAN, MARIA DE JESUS S 780.79 Fatigue 02/21/2010 346.90 Migraine Unspecified Without Intractable Migraine 02/21/2010 780.79 Fatigue 02/21/2010 JESS YOUNG ADULT LIBRARIAN, MARIA DE JESUS S 346.90 Migraine Unspecified Without Intractable Migraine 02/21/2010 JESS YOUNG ADULT LIBRARIAN, MARIA DE JESUS S 780.79 Fatigue 02/21/2010 SULLIVAN YOUNG ADULT LIBRARIAN, ROSALINO R 346.90 Migraine Unspecified Without Intractable Migraine 02/21/2010 SULLIVAN YOUNG ADULT LIBRARIAN, ROSALINO R 780.79 Fatigue 02/21/2010 JESS YOUNG ADULT LIBRARIAN, MARIA DE JESUS S 346.90 Migraine Unspecified Without Intractable Migraine 02/21/2010 JESS YOUNG ADULT LIBRARIAN, MARIA DE JESUS S 780.79 Fatigue 02/21/2010 JESS YOUNG ADULT LIBRARIAN, MARIA DE JESUS S 346.90 Migraine Unspecified Without Intractable Migraine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 S V72.31 REDUCING SALON ATTENDANT EXAM, ROUTINE 08/04/2012 JESS YOUNG ADULT LIBRARIAN, MARIA DE JESUS S V76.10 BREAST CANCER SCREENING 08/04/2012 JESS YOUNG ADULT LIBRARIAN, MARIA DE JESUS S V76.2 CERVICAL CANCER SCREENING (PAP SMEAR) 08/04/2012 JESS YOUNG ADULT LIBRARIAN, MARIA DE JESUS S V25.9 CONTRACEPTION MANAGEMENT 08/04/2012 JESS YOUNG ADULT LIBRARIAN, MARIA DE JESUS S V72.31 REDUCING SALON ATTENDANT EXAM, ROUTINE 08/04/2012 JESS YOUNG ADULT LIBRARIAN, MARIA DE JESUS S V76.10 BREAST CANCER SCREENING 08/04/2012 JESS YOUNG ADULT LIBRARIAN, MARIA DE JESUS S V76.2 CERVICAL CANCER SCREENING (PAP SMEAR) 08/04/2012 JESS YOUNG ADULT LIBRARIAN, MARIA DE JESUS S V25.9 CONTRACEPTION MANAGEMENT 08/04/2012 JESS YOUNG ADULT LIBRARIAN, MARIA DE JESUS S V72.31 REDUCING SALON ATTENDANT EXAM, ROUTINE 08/04/2012 JESS YOUNG ADULT LIBRARIAN, MARIA DE JESUS S V76.10 BREAST CANCER SCREENING 08/04/2012 JESS YOUNG ADULT LIBRARIAN, MARIA DE JESUS S V76.2 CERVICAL CANCER SCREENING (PAP SMEAR) 08/04/2012 JESS YOUNG ADULT LIBRARIAN, MARIA DE JESUS S V25.9 CONTRACEPTION MANAGEMENT 08/04/2012 JESS YOUNG ADULT LIBRARIAN, MARIA DE JESUS S V72.31 REDUCING SALON ATTENDANT EXAM, ROUTINE 08/04/2012 JESS YOUNG ADULT LIBRARIAN, MARIA DE JESUS S V76.10 BREAST CANCER SCREENING 08/04/2012 JESS YOUNG ADULT LIBRARIAN, MARIA DE JESUS S V76.2 CERVICAL CANCER SCREENING (PAP SMEAR) 08/04/2012 JESS YOUNG ADULT LIBRARIAN, MARIA DE JESUS S V25.9 CONTRACEPTION MANAGEMENT 08/04/2012 JESS YOUNG ADULT LIBRARIAN, MARIA DE JESUS S V72.31 REDUCING SALON ATTENDANT EXAM, ROUTINE 08/04/2012 JESS YOUNG ADULT LIBRARIAN, MARIA DE JESUS S V76.10 BREAST CANCER SCREENING 08/04/2012 JESS YOUNG ADULT LIBRARIAN, MARIA DE JESUS S V76.2 CERVICAL CANCER SCREENING (PAP SMEAR) 08/04/2012 JESS YOUNG ADULT LIBRARIAN, MARIA DE JESUS S V25.9 CONTRACEPTION MANAGEMENT 08/04/2012 JESS YOUNG ADULT LIBRARIAN, MARIA DE JESUS S V72.31 REDUCING SALON ATTENDANT EXAM, ROUTINE 08/04/2012 JESS YOUNG ADULT LIBRARIAN, MARIA DE JESUS S V76.10 BREAST CANCER SCREENING 08/04/2012 JESS YOUNG ADULT LIBRARIAN, MARIA DE JESUS S V76.2 CERVICAL CANCER SCREENING (PAP SMEAR) 08/04/2012 JUAN R BRYANT PHD V25.9 CONTRACEPTION MANAGEMENT 08/04/2012 JUAN R BRYANT PHD V72.31 REDUCING SALON ATTENDANT EXAM, ROUTINE 08/04/2012 JUAN R BRYANT PHD V76.10 BREAST CANCER SCREENING 08/04/2012 MANNY PHD, JUAN R A V76.2 CERVICAL CANCER SCREENING (PAP SMEAR) 08/04/2012 MARIA DE JESUS MERCADO APRN S V25.9 CONTRACEPTION MANAGEMENT 08/04/2012 MARIA DE JESUS MERCADO APRN S V72.31 REDUCING SALON ATTENDANT EXAM, ROUTINE 08/04/2012 MARIA DE JESUS MERCADO APRN S V76.10 BREAST CANCER SCREENING 08/04/2012 MARIA DE JESUS MERCADO APRN S V76.2 CERVICAL CANCER SCREENING (PAP SMEAR) 04/07/2013 CHAD MOROCHO, MICHAEL Leonardo Ot 708.9 URTICARIA NOS 04/07/2013 CHAD MOROCHO, MICHAEL Leonardo Ot 782.1 NONSPECIF SKIN ERUPT NEC 04/09/2013 MT GRANT MD Ot 300.00 ANXIETY STATE NOS 04/09/2013 MT GRANT MD Ot 305.1 TOBACCO USE DISORDER 04/09/2013 MT GRANT MD Ot 308.9 ACUTE STRESS REACT NOS 04/09/2013 MT GRANT MD Ot 311 DEPRESSIVE DISORDER NEC 04/09/2013 MT GRANT MD Ot 493.90 ASTHMA, UNSPECIFIED 04/09/2013 MT GRANT MD Ot 995.1 ANGIONEUROTIC EDEMA 04/09/2013 MT GRANT MD Ot E928.9 ACCIDENT NOS 04/09/2013 MT GRANT MD Ot V03.82 PROPHYLACTIC VACC AGAINST STREPTOCOCCUS 04/09/2013 MT GRANT MD Ot V04.81 ND FOR PROPHYLACTIC VACCIN AND INOCULATI 04/11/2013 MT GRANT MD Ot 300.00 ANXIETY STATE NOS 04/11/2013 MT GRANT MD Ot 305.1 TOBACCO USE DISORDER 04/11/2013 MT GRANT MD Ot 311 DEPRESSIVE DISORDER NEC 04/11/2013 MT GRANT MD Ot 995.0 OTHER ANAPHYLACTIC REACTION 04/11/2013 MT GRANT MD Ot 995.1 ANGIONEUROTIC EDEMA 04/11/2013 MT GRANT MD Ot E931.0 ADV EFF SULFONAMIDES 04/13/2013 MARIA DE JESUS MERCADO APRN S 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 04/13/2013 ROSALINO SULLIVAN APRN 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 04/13/2013 JESS YOUNG ADULT LIBRARIAN, MARIA DE JESUS S 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 04/13/2013 JESS YOUNG ADULT LIBRARIAN, MARIA DE JESUS S 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 04/13/2013 JESS YOUNG ADULT LIBRARIAN, MARIA DE JESUS S 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 04/13/2013 RUDY MOROCHO, MT 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 04/13/2013 MONA FOLEY DO K 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 04/13/2013 JESS YOUNG ADULT LIBRARIAN, MARIA DE JESUS S 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 04/13/2013 JESS YOUNG ADULT LIBRARIAN, MARIA DE JESUS S 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 04/13/2013 JESS YOUNG ADULT LIBRARIAN, MARIA DE JESUS S 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 04/13/2013 JESS YOUNG ADULT LIBRARIAN, MARIA DE JESUS S 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 04/13/2013 JESS YOUNG ADULT LIBRARIAN, MARIA DE JESUS S 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 04/13/2013 JESS YOUNG ADULT LIBRARIAN, MARIA DE JESUS S 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 04/13/2013 MANNY ZAMUDIO, JUAN R Leonardo 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 04/13/2013 JESS YOUNG ADULT LIBRARIAN, MARIA DE JESUS S 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 04/17/2013 LAURIE RUIZ, ROSALINO R 462 ACUTE PHARYNGITIS 04/17/2013 LAURIE YOUNG ADULT LIBRARIAN, ROSALINO R 786.07 WHEEZING 04/17/2013 JESS YOUNG ADULT LIBRARIAN, MARIA DE JESUS S 462 ACUTE PHARYNGITIS 04/17/2013 JESS YOUNG ADULT LIBRARIAN, MARIA DE JESUS S 786.07 WHEEZING 04/17/2013 JESS YOUNG ADULT LIBRARIAN, MARIA DE JESUS S 462 ACUTE PHARYNGITIS 04/17/2013 JESS YOUNG ADULT LIBRARIAN, MARIA DE JESUS S 786.07 WHEEZING 04/17/2013 JESS YOUNG ADULT LIBRARIAN, MARIA DE JESUS S 462 ACUTE PHARYNGITIS 04/17/2013 JESS YOUNG ADULT LIBRARIAN, MARIA DE JESUS S 786.07 WHEEZING 04/17/2013 MT GRANT MD 462 ACUTE PHARYNGITIS 04/17/2013 MT GRANT MD 786.07 WHEEZING 04/17/2013 MONA FOLEY DO K 462 ACUTE PHARYNGITIS 04/17/2013 FOLEY DO, MONA K 786.07 WHEEZING 04/17/2013 JESS YOUNG ADULT LIBRARIAN, MARIA DE JESUS S 462 ACUTE PHARYNGITIS 04/17/2013 JESS YOUNG ADULT LIBRARIAN, MARIA DE JESUS S 786.07 WHEEZING 04/17/2013 JESS YOUNG ADULT LIBRARIAN, MARIA DE JESUS S 462 ACUTE PHARYNGITIS 04/17/2013 JESS YOUNG ADULT LIBRARIAN, MARIA DE JESUS S 786.07 WHEEZING 04/17/2013 JESS YOUNG ADULT LIBRARIAN, MARIA DE JESUS S 462 ACUTE PHARYNGITIS 04/17/2013 JESS YOUNG ADULT LIBRARIAN, MARIA DE JESUS S 786.07 WHEEZING 04/17/2013 JESS YOUNG ADULT LIBRARIAN, MARIA DE JESUS S 462 ACUTE PHARYNGITIS 04/17/2013 JESS YOUNG ADULT LIBRARIAN, MARIA DE JESUS S 786.07 WHEEZING 04/17/2013 JESS YOUNG ADULT LIBRARIAN, MARIA DE JESUS S 462 ACUTE PHARYNGITIS 04/17/2013 JESS YOUNG ADULT LIBRARIAN, MARIA DE JESUS S 786.07 WHEEZING 04/17/2013 JESS YOUNG ADULT LIBRARIAN, MARIA DE JESUS S 462 ACUTE PHARYNGITIS 04/17/2013 JESS YOUNG ADULT LIBRARIAN, MARIA DE JESUS S 786.07 WHEEZING 04/17/2013 MANNY PHD, JUAN R Leonardo 462 ACUTE PHARYNGITIS 04/17/2013 MANNY PHD, JUAN R Leonardo 786.07 WHEEZING 04/17/2013 JESS YOUNG ADULT LIBRARIAN, MARIA DE JESUS S 462 ACUTE PHARYNGITIS 04/17/2013 JESS YOUNG ADULT LIBRARIAN, MARIA DE JESUS S 786.07 WHEEZING 05/09/2013 FERNANDA CURTIS DO Ot 708.9 URTICARIA NOS 05/10/2013 BRENNAN MOROCHO, LUIS Rodriguez Ot 708.9 URTICARIA NOS 05/20/2013 MONA FOLEY DO K 708.9 URTICARIA/HIVES UNSPEC 05/20/2013 MONA FOLEY DO K 790.29 HYPERGLYCEMIA 05/20/2013 JESS YOUNG ADULT LIBRARIAN, MARIA DE JESUS S 708.9 URTICARIA/HIVES UNSPEC 05/20/2013 JESS YOUNG ADULT LIBRARIAN, MARIA DE JESUS S 790.29 HYPERGLYCEMIA 05/20/2013 JESS YOUNG ADULT LIBRARIAN, MARIA DE JESUS S 708.9 URTICARIA/HIVES UNSPEC 05/20/2013 JESS YOUNG ADULT LIBRARIAN, MARIA DE JESUS S 790.29 HYPERGLYCEMIA 05/20/2013 JESS YOUNG ADULT LIBRARIAN, MARIA DE JESUS S 708.9 URTICARIA/HIVES UNSPEC 05/20/2013 JESS YOUNG ADULT LIBRARIAN, MARIA DE JESUS S 790.29 HYPERGLYCEMIA 05/20/2013 JESS YOUNG ADULT LIBRARIAN, MARIA DE JESUS S 708.9 URTICARIA/HIVES UNSPEC 05/20/2013 JESS YOUNG ADULT LIBRARIAN, MARIA DE JESUS S 790.29 HYPERGLYCEMIA 05/20/2013 JESS YOUNG ADULT LIBRARIAN, MARIA DE JESUS S 708.9 URTICARIA/HIVES UNSPEC 05/20/2013 JESS YOUNG ADULT LIBRARIAN, MARIA DE JESUS S 790.29 HYPERGLYCEMIA 05/20/2013 JESS YOUNG ADULT LIBRARIAN, MARIA DE JESUS S 708.9 URTICARIA/HIVES UNSPEC 05/20/2013 JESS YOUNG ADULT LIBRARIAN, MARIA DE JESUS S 790.29 HYPERGLYCEMIA 05/20/2013 MANNY PHD, JUAN R Leonardo 708.9 URTICARIA/HIVES UNSPEC 05/20/2013 MANNY PHD, JUAN R Leonardo 790.29 HYPERGLYCEMIA 05/20/2013 JESS YOUNG ADULT LIBRARIAN, MARIA DE JESUS S 708.9 URTICARIA/HIVES UNSPEC 05/20/2013 JESS YOUNG ADULT LIBRARIAN, MARIA DE JESUS S 790.29 HYPERGLYCEMIA 05/21/2013 MONA FOLEY DO 250.02 DIABETES II UNCONTROLLED (UNCOMPLICATED) 05/21/2013 JESS YOUNG ADULT LIBRARIAN, MARIA DE JESUS S 250.02 DIABETES II UNCONTROLLED (UNCOMPLICATED ) 05/21/2013 JESS YOUNG ADULT LIBRARIAN, MARIA DE JESUS S 250.02 DIABETES II UNCONTROLLED (UNCOMPLICATED ) 05/21/2013 JESS YOUNG ADULT LIBRARIAN, MARIA DE JESUS S 250.02 DIABETES II UNCONTROLLED (UNCOMPLICATED ) 05/21/2013 JESS YOUNG ADULT LIBRARIAN, MARIA DE JESUS S 250.02 DIABETES II UNCONTROLLED (UNCOMPLICATED ) 05/21/2013 JESS YOUNG ADULT LIBRARIAN, MARIA DE JESUS S 250.02 DIABETES II UNCONTROLLED (UNCOMPLICATED ) 05/21/2013 JESS YOUNG ADULT LIBRARIAN, MARIA DE JESUS S 250.02 DIABETES II UNCONTROLLED (UNCOMPLICATED ) 05/21/2013 MANNY ZAMUDIO, JUAN R Leonardo 250.02 DIABETES II UNCONTROLLED (UNCOMPLICATED ) 05/21/2013 JESS YOUNG ADULT LIBRARIAN, MARIA DE JESUS S 250.02 DIABETES II UNCONTROLLED (UNCOMPLICATED ) 08/04/2013 JESS YOUNG ADULT LIBRARIAN, MARIA DE JESUS S 599.70 HEMATURIA 08/04/2013 JESS YOUNG ADULT LIBRARIAN, MARIA DE JESUS S 599.70 HEMATURIA 08/04/2013 JESS RUIZ, MARIA DE JESUS S 599.70 HEMATURIA 08/04/2013 JESS RUIZ, MARIA DE JESUS S 599.70 HEMATURIA 08/04/2013 JESS YOUNG ADULT LIBRARIAN, MARIA DE JESUS S 599.70 HEMATURIA 08/04/2013 JESS RUIZ, MARIA DE JESUS S 599.70 HEMATURIA 08/04/2013 MANNY PHD, JUAN R Leonardo 599.70 HEMATURIA 08/04/2013 JESS RUIZ, MARIA DE JESUS S 599.70 HEMATURIA 08/16/2013 KIRSTEN DO, FERNANDA K Ot 595.9 CYSTITIS NOS 08/16/2013 KIRSTEN DO, FERNANDA K Ot 789.00 ABDOMINAL PAIN, UNSPECIFIED SITE 01/28/2014 JESS RUIZ, MARIA DE JESUS S 251.2 HYPOGLYCEMIA 01/28/2014 JESS RUIZ, MARIA DE JESUS S 251.2 HYPOGLYCEMIA 01/28/2014 JESS RUIZ MARIA DE JESUS S 251.2 HYPOGLYCEMIA 01/28/2014 JESS RUIZ, MARIA DE JESUS S 251.2 HYPOGLYCEMIA 01/28/2014 JESS RUIZ, MARIA DE JESUS S 251.2 HYPOGLYCEMIA 01/28/2014 MANNY PHD, JUAN R Leonardo 251.2 HYPOGLYCEMIA 01/28/2014 JESS RUIZ, MARIA DE JESUS S 251.2 HYPOGLYCEMIA 03/09/2014 LUIS AMIN MD Ot 250.00 DIAB SUNSHINE WO COMPL, TYPE II OR UNSPEC TY 03/09/2014 LUIS AMIN MD Ot 780.79 OTH MALAISE FATIGUE 03/09/2014 LUIS AMIN MD Ot V58.69 OTH MED,LT,CURRENT USE 03/21/2014 ROXANNE ESPARZA Ot 372.30 CONJUNCTIVITIS NOS 03/21/2014 ROXANNE ESPARZA Ot 465.9 ACUTE URI NOS 03/21/2014 ROXANNE ESPARZA Ot 930.9 FOREIGN BDY EXT EYE NOS 04/21/2014 JLUIS MERCADO APRNNDA S 296.80 BIPOLAR DISORDER UNSPECIFIED 04/21/2014 JLUIS MERCADO APRNNDA S 296.80 BIPOLAR DISORDER UNSPECIFIED 04/21/2014 JLUIS MERCADO APRNNDA S 296.80 BIPOLAR DISORDER UNSPECIFIED 04/21/2014 JESS YOUNG ADULT LIBRARIAN, MARIA DE JESUS S 296.80 BIPOLAR DISORDER UNSPECIFIED 04/21/2014 MANNY PHD, JUAN R A 296.80 BIPOLAR DISORDER UNSPECIFIED 04/21/2014 JESS YOUNG ADULT LIBRARIAN, MARIA DE JESUS S 296.80 BIPOLAR DISORDER UNSPECIFIED 05/06/2014 JESS YOUNG ADULT LIBRARIAN, MARIA DE JESUS S 462 PHARYNGITIS ACUTE 05/06/2014 JESS YOUNG ADULT LIBRARIAN, MARIA DE JESUS S 786.2 COUGH 05/06/2014 JESS YOUNG ADULT LIBRARIAN, MARIA DE JESUS S V15.82 NICOTINE ABUSE 05/06/2014 JESS YOUNG ADULT LIBRARIAN, MARIA DE JESUS S 462 PHARYNGITIS ACUTE 05/06/2014 JESS YOUNG ADULT LIBRARIAN, MARIA DE JESUS S 786.2 COUGH 05/06/2014 JESS YOUNG ADULT LIBRARIAN, MARIA DE JESUS S V15.82 NICOTINE ABUSE 05/06/2014 JESS YOUNG ADULT LIBRARIAN, MARIA DE JESUS S 462 PHARYNGITIS ACUTE 05/06/2014 JESS YOUNG ADULT LIBRARIAN, MARIA DE JESUS S 786.2 COUGH 05/06/2014 JESS YOUNG ADULT LIBRARIAN, MARIA DE JESUS S V15.82 NICOTINE ABUSE 05/06/2014 MANNY PHD, JUAN R A 462 PHARYNGITIS ACUTE 05/06/2014 MANNY PHD, JUAN R A 786.2 COUGH 05/06/2014 MANNY PHD, JUAN R A V15.82 NICOTINE ABUSE 05/06/2014 JESS YOUNG ADULT LIBRARIAN, MARIA DE JESUS S 462 PHARYNGITIS ACUTE 05/06/2014 JESS YOUNG ADULT LIBRARIAN, MARIA DE JESUS S 786.2 COUGH 05/06/2014 JESS YOUNG ADULT LIBRARIAN, MARIA DE JESUS S V15.82 NICOTINE ABUSE 05/11/2014 CELSA MOROCHO, TARUN M Ot 250.00 DIAB SUNSHINE WO COMPL, TYPE II OR UNSPEC TY 05/11/2014 CELSA MOROCHO, TARUN Johnson Ot 276.8 HYPOPOTASSEMIA 05/11/2014 TARUN STEEN MD Ot 300.9 UNSPECIFIED NONPSYCHOTIC MENTAL DISORDER 05/11/2014 CELSA MOROCHO, TARUN Johnson Ot 305.00 ALCOHOL ABUSE-UNSPEC 05/11/2014 TARUN STEEN MD Ot 305.1 TOBACCO USE DISORDER 05/11/2014 TARUN STEEN MD Ot 305.40 SEDATIVE, HYPNOTIC OR ANXIOLYTIC ABUSE, 05/11/2014 CELSA MOROCHO, TARUN M Ot 466.0 ACUTE BRONCHITIS 05/11/2014 CELSA MOROCHO, TARUN M Ot 780.97 ALTERED MENTAL STATUS 05/11/2014 CELSA MOROCHO, TARUN Johnson Ot 847.0 SPRAIN OF NECK 05/11/2014 CELSA MOROCHO, TARUN Johnson Ot E816.0 LOSS CONTROL MV ACC-DRIV 05/11/2014 CELSA MOROCHO, TARUN Johnson Ot V04.81 ND FOR PROPHYLACTIC VACCIN AND INOCULATI 05/11/2014 CELSA MOROCHO, TARUN M Ot 250.00 05/11/2014 CELSA MOROCHO, TARUN M Ot 276.8 05/11/2014 CESLA MOROCHO, TARUN M Ot 300.9 05/11/2014 CELSA MOROCHO, TARUN M Ot 305.00 05/11/2014 CELSA MOROCHO, TARUN M Ot 305.1 05/11/2014 CELSA MOROCHO, TARUN M Ot 305.40 05/11/2014 CELSA MOROCHO, TARUN Johnson Ot 466.0 05/11/2014 CESLA MOROCHO, TARUN M Ot 780.97 05/11/2014 CELSA MOROCHO, TARUN Johnson Ot 847.0 05/11/2014 CELSA MOROCHO, TARUN M Ot E816.0 05/11/2014 CELSA MOROCHO, TARUN M Ot V04.81 05/12/2014 Ot 789.00 05/12/2014 Ot 597.0 05/12/2014 Ot 625.8 05/12/2014 Ot 784.0 05/13/2014 MARIA DE JESUS MERCADO APRN S 310.2 POSTCONCUSSION SYNDROME 05/13/2014 MARIA DE JESUS MERCADO APRN S 847.0 SPRAIN OF NECK 05/13/2014 MARIA DE JESUS MERCADO APRN S 310.2 POSTCONCUSSION SYNDROME 05/13/2014 MARIA DE JESUS MERCADO APRN S 847.0 SPRAIN OF NECK 05/13/2014 MANNY ZAMUDIO, JUAN R Leonardo 310.2 POSTCONCUSSION SYNDROME 05/13/2014 MANNY ZAMUDIO, JUAN R Leonardo 847.0 SPRAIN OF NECK 05/13/2014 MARIA DE JESUS MERCADO APRN S 310.2 POSTCONCUSSION SYNDROME 05/13/2014 MARIA DE JESUS MERCADO APRN 847.0 SPRAIN OF NECK 05/13/2014 Ot 789.00 05/13/2014 Ot 597.0 05/13/2014 Ot 625.8 05/13/2014 Ot 784.0 05/14/2014 Ot 789.00 05/14/2014 Ot 597.0 05/14/2014 Ot 625.8 05/14/2014 Ot 784.0 06/01/2014 Ot 789.00 06/01/2014 Ot 597.0 06/01/2014 Ot 625.8 06/01/2014 Ot 784.0 06/01/2014 Ot 789.00 06/01/2014 Ot 597.0 06/01/2014 Ot 625.8 06/01/2014 Ot 784.0 06/02/2014 Ot 789.00 06/02/2014 Ot 597.0 06/02/2014 Ot 625.8 06/02/2014 Ot 784.0 10/21/2014 Ot 789.00 10/21/2014 Ot 597.0 10/21/2014 Ot 625.8 10/21/2014 Ot 784.0 10/21/2014 ELMER MOROCHO, MARLI Cota Ot 592.0 CALCULUS OF KIDNEY 10/21/2014 ELMER MOROCHO, MARLI Cota Ot 787.01 NAUSEA WITH VOMITING 10/21/2014 ELMER MOROCHO, MARLI Cota Ot 789.09 ABDOMINAL PAIN, OTHER SPECIFIED SITE 10/21/2014 Ot 789.00 10/21/2014 Ot 597.0 10/21/2014 Ot 625.8 10/21/2014 Ot 784.0 11/12/2014 Ot 599.70 11/12/2014 Ot 793.1 11/12/2014 Ot 789.00 11/12/2014 Ot 597.0 11/12/2014 Ot 625.8 11/12/2014 Ot 784.0 12/07/2014 Ot 789.00 12/07/2014 Ot 597.0 12/07/2014 Ot 625.8 12/07/2014 Ot 784.0 12/07/2014 ROXANNE ESPARZA Ot 599.0 URIN TRACT INFECTION NOS 12/07/2014 ROXANNE ESPARZA Ot 787.03 VOMITING ALONE 12/07/2014 ROXANNE ESPARZA Ot 787.91 DIARRHEA 12/07/2014 ROXANNE ESPARAZ Ot 789.06 ABDOMINAL PAIN, EPIGASTRIC 12/07/2014 Ot 789.00 12/07/2014 Ot 597.0 12/07/2014 Ot 625.8 12/07/2014 Ot 784.0 12/08/2014 ROXANNE ESPARZA Ot 599.0 URIN TRACT INFECTION NOS 12/08/2014 ROXANNE ESPARZA Ot 787.01 NAUSEA WITH VOMITING 12/08/2014 Ot 789.00 12/08/2014 Ot 597.0 12/08/2014 Ot 625.8 12/08/2014 Ot 784.0 12/10/2014 ROXANNE ESPARZA Ot 250.00 DIAB SUNSHINE WO COMPL, TYPE II OR UNSPEC TY 12/10/2014 ROXANNE ESPARZA Ot 305.1 TOBACCO USE DISORDER 12/10/2014 ROXANNE ESPARZA Ot 564.00 UNSPEC CONSTIPATION 12/28/2014 MARIA DE JESUS MERCADO Ot 789.00 12/28/2014 MARIA DE JESUS MERCDAO Ot 789.00 12/30/2014 Ot 599.70 12/30/2014 Ot 793.1 12/30/2014 Ot 789.00 12/30/2014 Ot 597.0 12/30/2014 Ot 625.8 12/30/2014 Ot 784.0 12/30/2014 MARIA DE JESUS MERCADO Ot 789.00 12/30/2014 Ot 789.00 12/30/2014 Ot 597.0 12/30/2014 Ot 625.8 12/30/2014 Ot 784.0 12/30/2014 MARIA DE JESUS MERCADO Ot 789.00 12/31/2014 Ot 789.00 12/31/2014 Ot 597.0 12/31/2014 Ot 625.8 12/31/2014 Ot 784.0 12/31/2014 MARIA DE JESUS MERCADO Ot 789.00 12/31/2014 MARIA DE JESUS MERCADO Ot 789.00 05/05/2015 ELMER MOROCHO, MARLI Cota Ot F41.9 ANXIETY DISORDER, UNSPECIFIED 05/05/2015 ELMER MOROCHO, MARLI Cota Ot R06.4 HYPERVENTILATION 06/18/2015 LUIS AMIN MD Ot F17.210 NICOTINE DEPENDENCE, CIGARETTES, UNCOMPL 06/18/2015 LUIS AMIN MD Ot S50.11XA CONTUSION OF RIGHT FOREARM, INITIAL ENCO 06/18/2015 LUIS AMIN MD Ot S50.811A ABRASION OF RIGHT FOREARM, INITIAL ENCOU 06/18/2015 LUIS AMIN MD Ot S50.812A ABRASION OF LEFT FOREARM, INITIAL ENCOUN 06/18/2015 LUIS AMIN MD Ot S60.221A CONTUSION OF RIGHT HAND, INITIAL ENCOUNT 06/18/2015 LUIS AMIN MD Ot W22.09XA STRIKING AGAINST OTHER STATIONARY OBJECT 06/18/2015 LUIS AMIN MD Ot Y99.8 OTHER EXTERNAL CAUSE STATUS 06/20/2015 JASON CLARK MD Ot F17.210 NICOTINE DEPENDENCE, CIGARETTES, UNCOMPL 06/20/2015 JASON CLARK MD Ot R53.83 OTHER FATIGUE 07/12/2015 ERIC BETTS DO Ot F17.210 NICOTINE DEPENDENCE, CIGARETTES, UNCOMPL 07/12/2015 ERIC BETTS DO Ot S60.221A CONTUSION OF RIGHT HAND, INITIAL ENCOUNT 07/12/2015 ERIC BETTS DO Ot W54.8XXA OTHER CONTACT WITH DOG, INITIAL ENCOUNTE 07/12/2015 ERIC BETTS DO Ot Y99.8 OTHER EXTERNAL CAUSE STATUS 09/05/2015 MARIA DE JESUS MERCADOP Ot R51 09/13/2015 MARIA DE JESUS MERCADOP Ot R93.0 09/16/2015 MARIA DE JESUS MERCADO G[employer] MAIN FITTER Ot R93.0 09/16/2015 MARIA DE JESUS MERCADOP Ot R93.0 09/19/2015 MARIA DE JESUS MERCADOP Ot R93.0 09/20/2015 MARIA DE JESUS MERCADOP Ot R51 09/20/2015 MARIA DE JESUS MERCADO G[employer] MAIN FITTER Ot R51 09/20/2015 MARIA DE JESUS MERCADOP Ot R51 09/20/2015 MARIA DE JESUS MERCADOP Ot R93.0 09/20/2015 MARIA DE JESUS MERCADO GAS MAIN FITTER Ot R93.0 10/09/2015 MARIA DE JESUS MERCADOP Ot R51 10/09/2015 MARIA DE JESUS MERCADO G[employer] MAIN FITTER Ot R93.0 10/09/2015 MARIA DE JESUS MERCADOP Ot R93.0 10/09/2015 ELMER MOROCHO, MARLI Cota Ot M79.603 PAIN IN ARM, UNSPECIFIED 10/09/2015 ELMER MOROCHO, MARLI Cota Ot Z53.21 PROC/TRTMT NOT CRD OUT D/T PT LV BEF SEE 10/09/2015 MARIA DE JESUS MERCADOP Ot R51 10/09/2015 MARIA DE JESUS MERCADO G[employer] MAIN FITTER Ot R93.0 10/09/2015 MARIA DE JESUS MERCADO GAS MAIN FITTER Ot R93.0 10/12/2015 ELMER MOROCHO, MARIL Cota Ot M79.603 10/12/2015 ELMER MOROCHO, MARLI Cota Ot Z53.21 10/27/2015 MARIA DE JESUS MERCADO G[employer] MAIN FITTER Ot R93.0 ABNORMAL FINDINGS ON DX IMAGING OF SKULL 11/17/2015 MARIA DE JESUS MERCADO G[employer] MAIN FITTER Ot R93.0 ABNORMAL FINDINGS ON DX IMAGING OF SKULL 11/24/2015 MARIA DE JESUS MERCADO G[employer] MAIN FITTER Ot R93.0 ABNORMAL FINDINGS ON DX IMAGING OF SKULL 12/19/2015 TONO CHASE YOUNG ADULT LIBRARIAN Ot F17.210 NICOTINE DEPENDENCE, CIGARETTES, UNCOMPL 12/19/2015 TONO CHASE YOUNG ADULT LIBRARIAN Ot G89.29 OTHER CHRONIC PAIN 12/19/2015 TONO CHASE YOUNG ADULT LIBRARIAN Ot M54.5 LOW BACK PAIN 12/20/2015 TONO CHASE YOUNG ADULT LIBRARIAN Ot F17.210 NICOTINE DEPENDENCE, CIGARETTES, UNCOMPL 12/20/2015 TONO CHASE YOUNG ADULT LIBRARIAN Ot G89.29 OTHER CHRONIC PAIN 12/20/2015 TONO CHASE YOUNG ADULT LIBRARIAN Ot M54.5 LOW BACK PAIN 12/22/2015 MARIA DE JESUS MERCADOP Ot R51 HEADACHE 12/22/2015 MARIA DE JESUS MERCADOP Ot R93.0 ABNORMAL FINDINGS ON DX IMAGING OF SKULL 12/22/2015 MARIA DE JESUS MERCADO [employer] Ot R93.0 ABNORMAL FINDINGS ON DX IMAGING OF SKULL 12/26/2015 Ot 789.00 ABDOMINAL PAIN, UNSPECIFIED SITE 12/26/2015 Ot 597.0 URETHRAL ABSCESS 12/26/2015 Ot 625.8 FEM GENITAL SYMPTOMS NEC 12/26/2015 Ot 784.0 HEADACHE 12/26/2015 MARIA DE JESUS MERCADOP Ot 789.00 ABDOMINAL PAIN, UNSPECIFIED SITE 12/26/2015 MARIA DE JESUS MERCADOP Ot 789.00 ABDOMINAL PAIN, UNSPECIFIED SITE 12/27/2015 MARIA DE JESUS [employer]CADO [employer] Ot 789.00 ABDOMINAL PAIN, UNSPECIFIED SITE 12/30/2015 MARIA DE JESUS MERCADOP Ot R51 HEADACHE 12/30/2015 MARIA DE JESUS MERCADOP Ot R93.0 ABNORMAL FINDINGS ON DX IMAGING OF SKULL 12/30/2015 MARIA DE JESUS MERCADOP Ot R93.0 ABNORMAL FINDINGS ON DX IMAGING OF SKULL 12/31/2015 MARIA DE JESUS MERCADOP Ot R93.0 ABNORMAL FINDINGS ON DX IMAGING OF SKULL 12/31/2015 MARIA DE JESUS MERCADO [employer] Ot R51 HEADACHE 01/10/2016 Ot 789.00 ABDOMINAL PAIN, UNSPECIFIED SITE 01/10/2016 Ot 597.0 URETHRAL ABSCESS 01/10/2016 Ot 625.8 FEM GENITAL SYMPTOMS NEC 01/10/2016 Ot 784.0 HEADACHE 01/10/2016 MARIA DE JESUS MERCADOP Ot 789.00 ABDOMINAL PAIN, UNSPECIFIED SITE 01/10/2016 MARIA DE JESUS MERCADOP Ot R51 HEADACHE 01/10/2016 MARIA DE JESUS MERCADOP Ot R93.0 ABNORMAL FINDINGS ON DX IMAGING OF SKULL 01/10/2016 MARIA DE JESUS MERCADOP Ot R93.0 ABNORMAL FINDINGS ON DX IMAGING OF SKULL 01/10/2016 MARIA DE JESUS [employer] Ot R51 HEADACHE 01/10/2016 MARIA DE JESUS MERCADOP Ot R93.0 ABNORMAL FINDINGS ON DX IMAGING OF SKULL 01/10/2016 MARIA DE JESUS MERCADOP Ot R93.0 ABNORMAL FINDINGS ON DX IMAGING OF SKULL 01/12/2016 MARIA DE JESUS [employer]O [employer] Ot R51 HEADACHE 01/12/2016 MARIA DE JESUS MERCADOP Ot R93.0 ABNORMAL FINDINGS ON DX IMAGING OF SKULL 01/12/2016 MARIA DE JESUS MERCADOP Ot R93.0 ABNORMAL FINDINGS ON DX IMAGING OF SKULL 01/16/2016 MARIA DE JESUS [employer]CADO [employer] Ot R51 HEADACHE 01/16/2016 MARIA DE JESUS MERCADOP Ot R93.0 ABNORMAL FINDINGS ON DX IMAGING OF SKULL 01/16/2016 MARIA DE JESUS [employer] Ot R93.0 ABNORMAL FINDINGS ON DX IMAGING OF SKULL 03/02/2016 MARIA DE JESUS MERCADO [employer] Ot R51 HEADACHE 03/02/2016 MARIA DE JESUS MERCADOP Ot R93.0 ABNORMAL FINDINGS ON DX IMAGING OF SKULL 03/02/2016 MARIA DE JESUS MERCADOP Ot R93.0 ABNORMAL FINDINGS ON DX IMAGING OF SKULL 03/02/2016 TONO CHASE APRN Ot S60.222A CONTUSION OF LEFT HAND, INITIAL ENCOUNTE 03/02/2016 TONO CHASE APRN Ot S69.92XA UNSP INJURY OF LEFT WRIST, HAND AND FING 03/02/2016 TONO CHASE APRN Ot W22.8XXA STRIKING AGAINST OR STRUCK BY OTHER OBJE 03/02/2016 TONO CHASE APRN Ot Y93.89 ACTIVITY, OTHER SPECIFIED 03/02/2016 TONO CHASE APRN Ot Y99.8 OTHER EXTERNAL CAUSE STATUS 03/06/2016 TONO CHASE APRN Ot S60.222A CONTUSION OF LEFT HAND, INITIAL ENCOUNTE 03/06/2016 TONO CHASE APRN Ot S69.92XA UNSP INJURY OF LEFT WRIST, HAND AND FING 03/06/2016 TONO CHASE APRN Ot W22.8XXA STRIKING AGAINST OR STRUCK BY OTHER OBJE 03/06/2016 TONO CHASE APRN Ot Y93.89 ACTIVITY, OTHER SPECIFIED 03/06/2016 TONO CHASE APRN Ot Y99.8 OTHER EXTERNAL CAUSE STATUS 06/02/2016 MARIA DE JESUS MERCADOP Ot R51 HEADACHE 06/02/2016 MARIA DE JESUS MERCADOP Ot R93.0 ABNORMAL FINDINGS ON DX IMAGING OF SKULL 06/02/2016 MARIA DE JESUS MERCADOP Ot R93.0 ABNORMAL FINDINGS ON DX IMAGING OF SKULL 06/02/2016 TONO CHASE APRN Ot E11.9 TYPE 2 DIABETES MELLITUS WITHOUT COMPLIC 06/02/2016 TONO CHASE APRN Ot F17.210 NICOTINE DEPENDENCE, CIGARETTES, UNCOMPL 06/02/2016 TONO CHASE APRN Ot G89.29 OTHER CHRONIC PAIN 06/02/2016 TONO CHASE APRN Ot I10 ESSENTIAL (PRIMARY) HYPERTENSION 06/02/2016 TONO CHASE APRN Ot M51.27 OTHER INTERVERTEBRAL DISC DISPLACEMENT, 06/02/2016 TONO CHASE APRN Ot M54.5 LOW BACK PAIN 06/05/2016 TONO CHASE APRN Ot E11.9 TYPE 2 DIABETES MELLITUS WITHOUT COMPLIC 06/05/2016 TONO CHASE APRN Ot F17.210 NICOTINE DEPENDENCE, CIGARETTES, UNCOMPL 06/05/2016 TONO CHASE APRN Ot G89.29 OTHER CHRONIC PAIN 06/05/2016 TONO CHASE APRN Ot I10 ESSENTIAL (PRIMARY) HYPERTENSION 06/05/2016 TONO CHASE APRN Ot M51.27 OTHER INTERVERTEBRAL DISC DISPLACEMENT, 06/05/2016 TONO CHASE APRN Ot M54.5 LOW BACK PAIN 06/13/2016 TONO CHASE APRN Ot E11.9 TYPE 2 DIABETES MELLITUS WITHOUT COMPLIC 06/13/2016 TONO CHASE APRN Ot I10 ESSENTIAL (PRIMARY) HYPERTENSION 06/13/2016 TONO CHASE APRN Ot S43.402A UNSPECIFIED SPRAIN OF LEFT SHOULDER JOIN 06/13/2016 TONO CHASE APRN Ot S49.92XA UNSP INJURY OF LEFT SHOULDER AND UPPER A 06/13/2016 TONO CHASE APRN Ot X50.0XXA OVEREXERTION FROM STRENUOUS MOVEMENT OR 06/13/2016 TONO CHASE APRN Ot Y99.8 OTHER EXTERNAL CAUSE STATUS 06/14/2016 TONO CHASE APRN Ot E11.9 TYPE 2 DIABETES MELLITUS WITHOUT COMPLIC 06/14/2016 TONO CHASE APRN Ot I10 ESSENTIAL (PRIMARY) HYPERTENSION 06/14/2016 TONO CHASE APRN Ot S43.402A UNSPECIFIED SPRAIN OF LEFT SHOULDER JOIN 06/14/2016 TONO CHASE APRN Ot S49.92XA UNSP INJURY OF LEFT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
--- OUTSIDE RECORDS SUMMARY | 2016-11-04 20:37 | XMS REPORT ---
Author Author MARIA DE JESUS MERCADO Organization [employer] Address Unknown Phone Unavailable Care Team Providers Care Carboy Filler Name Role Phone MARIA DE JESUS MERCADO [...]
--- OUTSIDE RECORDS SUMMARY | 2016-11-04 20:37 | XMS REPORT ---
Author Author MARIA DE JESUS MERCADO Organization [employer] Address Unknown Phone Unavailable Care Team Providers Care Corporate Trainer Name Role Phone MARIA DE JESUS MERCADO CP Unavailable Allergies No Known Allergies Problems Problem Type Condition Code Onset Dates Condition Status Assessment Anxiety F41.9 Active Problem Nausea R11.0 Active Problem Forgetfulness [...] Start Date End Date Status Dosage Xanax [facility] [address]-70 1 MG Orally 4 times a day September 23, 2014 1 tablet as needed for anxiety Results No Known Results Summary Purpose [employer] Submission
--- OUTSIDE RECORDS SUMMARY | 2016-11-04 20:37 | XMS REPORT ---
Author Author MARIA DE JESUS MERCADO Organization [employer] Address Unknown Phone Unavailable Care Team Providers Care Housekeeper Manager Name Role Phone MARIA DE JESUS [...]
--- OUTSIDE RECORDS SUMMARY | 2016-11-04 20:37 | XMS REPORT ---
Author Author MARIA DE JESUS MERCADO Organization [employer] Address Unknown Phone Unavailable Care Team Providers Care Automatic Cigar Wrapper Tender Name Role Phone MARIA DE JESUS [...]
--- OUTSIDE RECORDS SUMMARY | 2016-11-04 20:37 | XMS REPORT ---
Author CHARITY Navarro [facility] [employer] Address Unknown Phone Unavailable Care Team Providers Care Inspector Name Role Phone CHARITY SHEARER CP Unavailable Allergies No Known Allergies Problems [...] Start Date End Date Status Dosage Hydrocodone-Acetaminophen [facility] [address]-69 7.5-325 MG Orally 4 times a day May 18, 2016 1 tablet as needed Results No Known Results Summary Purpose [employer] Submission
--- OUTSIDE RECORDS SUMMARY | 2016-11-04 20:37 | XMS REPORT ---
Author Author MARIA DE JESUS MERCADO [facility] [employer] Address Unknown Phone Unavailable Care Team Providers Care Elastic Tape Inserter Name Role Phone MARIA DE JESUS MERCADO [...] Problem Bipolar disorder, unspecified 296.80 Active Assessment Hematuria R31.9 Active Medications Medication Code System Code Instructions Start Date End Date Status Dosage Xanax [facility] [address]-56 1 MG September 23, 2014 1 tablet by Oral route 4 times per day Albuterol NDC 0 90 mcg/actuation Jul 17, 2012 2 puffs by Inhalation route 4 times per day PRN Lexapro [facility] [address]-73 20 MG Jul 30, 2014 2 tablet by Oral route 1 time per day EpiPen NDC 0 0.3 MG/0.3ML (1:1000) Intramuscular PRN Apr 19, 2015 as directed Benztropine Mesylate [facility] 61395730016 1 MG TAKE ONE TABLET BY MOUTH TWICE DAILY ZyrTEC [facility] [address]-29 10 MG Orally Once a day #120 samples Apr 19, 2015 1 tablet as needed Toprol XL [facility] [address]-49 50 MG Orally Once a day at hs May 10, 2015 1 tablet Procedures Procedure Coding System Code Date Office Visit, Est Pt., Level 3 CPT-4 87250 Jun 14, 2015 URINALYSIS, AUTO, W/O SCOPE CPT-4 88934 Jun 14, 2015 Vital Signs Date/Time: Jun 14, 2015 Temperature 98.1 F Weight 127.3 lbs Height 64 in BMI 21.85 Index Blood Pressure Diastolic 66 mmHg Blood Pressure Systolic 114 mmHg Cardiac Monitoring Heart Rate 64 bpm Results Name Result Date Reference Range Unit Abnormality Flag UA LONG DIP (IN HOUSE) ----CRISTAL neg [id number] ----NIT neg [id number] ----SG 1.020 20150614 ----KET neg [id number] ----CATALINA neg [id number] ----GLU neg [id number] ----Odor no 20150614 ----pH 6.5 20150614 ----BLO +++ [id number] ----URO 0.2 20150614 ----Protein neg [id number] ----Lot # [id number] ----Exp date [id number] ----Clarity sl. cloudy [id number] ----Color kt [id number] Summary Purpose [employer]Works Submission
--- OUTSIDE RECORDS SUMMARY | 2016-11-04 20:37 | XMS REPORT ---
Author Author MARIA DE JESUS MERCADO Organization [employer] Address Unknown Phone Unavailable Care Team Providers Care Fire Chief Name Role Phone MARIA DE JESUS MERCADO [...]
--- OUTSIDE RECORDS SUMMARY | 2016-11-04 20:37 | XMS REPORT ---
Author Author MARIA DE JESUS MERCADO Organization [employer] Address Unknown Phone Unavailable Care Team Providers Care Trauma Coordinator Name Role Phone MARIA DE JESUS MERCADO CP Unavailable Allergies No Known Allergies Problems Problem Type Condition ICD-9 Code Onset Dates Condition Status Problem Panic disorder without agoraphobia 300.01 Active Problem Other abnormal glucose 790.29 Active Problem Nondependent tobacco use disorder 305.1 Active Problem Bipolar disorder, unspecified 296.80 Active Medications No Known Medications Results No Known Results Summary Purpose [employer] Submission
--- OUTSIDE RECORDS SUMMARY | 2016-11-04 20:37 | XMS REPORT ---
Author Author MARIA DE JESUS MERCADO Organization [employer] Address Unknown Phone Unavailable Care Team Providers Care Camera Mechanic Name Role Phone MARIA DE JESUS [...] [facility] [address]-56 1 MG Orally 4 times a day September 23, 2014 1 tablet as needed for anxiety Results No Known Results Summary Purpose [employer] Submission
--- OUTSIDE RECORDS SUMMARY | 2016-11-04 20:38 | XMS REPORT ---
Author Author MARIA DE JESUS MERCADO Organization [employer] Address Unknown Phone Unavailable Care Team Providers Care Jitterbug Operator Name Role Phone MARIA DE JESUS MERCADO CP Unavailable Allergies No Known Allergies Problems Problem Type Condition ICD-9 Code Onset Dates Condition Status Problem Panic disorder without agoraphobia 300.01 Active Problem Other abnormal glucose 790.29 Active Problem Nondependent tobacco use disorder 305.1 Active Problem Bipolar disorder, unspecified 296.80 Active Medications Medication Code System Code Instructions Start Date End Date Status Dosage Xanax [facility] [address]-42 1 MG 1 TAB orally 2 times a day September 23, 2014 1 tablet by Oral route 4 times per day Results No Known Results Summary Purpose [employer] Submission
--- OUTSIDE RECORDS SUMMARY | 2016-11-04 20:38 | XMS REPORT ---
Author Author MARIA DE JESUS MERCADO Organization [employer] Address Unknown Phone Unavailable Care Team Providers Care Education Spec Name Role Phone MARIA DE JESUS MERCADO [...]
--- OUTSIDE RECORDS SUMMARY | 2016-11-04 20:38 | XMS REPORT ---
Author Author MARIA DE JESUS MERCADO Organization [employer] Address Unknown Phone Unavailable Care Team Providers Care Machine Welt Butter Name Role Phone MARIA DE JESUS MERCADO [...] Date End Date Status Dosage Xanax [facility] [address]-69 1 MG Orally 4 times a day September 23, 2014 1 tablet as needed for anxiety Omeprazole [facility] [address]-52 20 mg Orally Once a day 2 capsules Lexapro [facility] [address]-22 20 mg Orally Once a day 2 tablets Results No Known Results Summary Purpose [employer] Submission
--- OUTSIDE RECORDS SUMMARY | 2016-11-04 20:38 | XMS REPORT ---
Author Author MARIA DE JESUS MERCADO Organization [employer] Address Unknown Phone Unavailable Care Team Providers Care Human Resources Assistant Manager Name Role Phone MARIA DE JESUS MERCADO CP Unavailable Allergies No Known Allergies Problems Problem Type Condition Code Onset Dates Condition Status Problem Panic disorder without agoraphobia 300.01 Active Problem Other abnormal glucose 790.29 Active Problem Nondependent tobacco use disorder 305.1 Active Problem Bipolar disorder, unspecified 296.80 Active Medications Medication Code System Code Instructions Start Date End Date Status Dosage EPINEPHrine [facility] [address]-71 0.3 mg/0.3 mL (1:1,000) Injection PRN Aug 0.3 mg by Intramuscular route 1 time per day PRN Results No Known Results Summary Purpose [employer] Submission
--- OUTSIDE RECORDS SUMMARY | 2016-11-04 20:38 | XMS REPORT ---
Author Author MARIA DE JESUS MERCADO Organization [employer] Address Unknown Phone Unavailable Care Team Providers Care Email Designer Name Role Phone MARIA DE JESUS MERCADO CP Unavailable Allergies No Known Allergies Problems Problem Type Condition Code Onset Dates Condition Status Problem Panic disorder without agoraphobia 300.01 Active Problem Other abnormal glucose 790.29 Active Problem Nondependent tobacco use disorder 305.1 Active Problem Bipolar disorder, unspecified 296.80 Active Medications Medication Code System Code Instructions Start Date End Date Status Dosage Xanax [facility] [address]-80 1 MG September 23, 2014 1 tablet by Oral route 4 times per day Results No Known Results Summary Purpose [employer] Submission
--- OUTSIDE RECORDS SUMMARY | 2016-11-04 20:39 | XMS REPORT ---
Author Author MARIA DE JESUS MERCADO Organization [employer] Address Unknown Phone Unavailable Care Team Providers Care Body And Frame Technician Name Role Phone MARIA DE JESUS [...]
--- OUTSIDE RECORDS SUMMARY | 2016-11-04 20:39 | XMS REPORT ---
Author Author MARIA DE JESUS MERCADO Organization [employer] Address Unknown Phone Unavailable Care Team Providers Care Clipper Machine Name Role Phone MARIA DE JESUS MERCADO [...]
--- OUTSIDE RECORDS SUMMARY | 2016-11-04 20:39 | XMS REPORT ---
Author Author MARIA DE JESUS MERCADO Organization [employer] Address Unknown Phone Unavailable Care Team Providers Care Wood Scrap Handler Name Role Phone MARIA DE JESUS MERCADO [...]
--- OUTSIDE RECORDS SUMMARY | 2016-11-04 20:39 | XMS REPORT ---
Author Author MARIA DE JESUS MERCADO Organization [employer] Address Unknown Phone Unavailable Care Team Providers Care Gps Navigation Installer Name Role Phone MARIA DE JESUS MERCADO [...]
== END 2016-10-04 09:10 | disposition home or self-care (01) ==
LOC: ENDO 06:31
PROVIDERS: ATTEND Surgery
DX: K29.70 Gastritis, unspecified, without bleeding (principal); K21.9 Gastro-esophageal reflux disease without esophagitis; K44.9 Diaphragmatic hernia without obstruction or gangrene
CPT/HCPCS: 84703; 88305

== ENCOUNTER → 2016-10-08 | Outpatient (CLI) | payer MEDICAID ==
[~2016-10-08] MED LIST changes: +CATHETER FLUSH 10 ML SYR IV PRN; +IOHEXOL 350 MG/ML 150 ML (OMNIPAQUE 350) VIAL IV ONE; +NS 100 ML (IVPB) BAG IV ONE; +PANT40TA2 PO; +RT-ALBUTEROL SULF 2.5 MG/3 ML PRE-MIX VIAL IH ONE; +RT-ALBUTEROL SULF 2.5 MG/3 ML PRE-MIX VIAL ONE; +SUCR1TAB36 PO
[2016-10-08 14:04] LABS: BLOOD UREA NITROGEN 8 MG/DL (7-18); BUN/CREATININE RATIO 9; CREATININE SERUM 0.85 MG/DL (0.60-1.30); GFR ESTIMATED > 60
--- NOTE | 2016-10-08 15:17 | Diagnostic Imaging Report ---
PROCEDURE: CT angiography of the chest with contrast. TECHNIQUE: Multiple contiguous axial images were obtained through the chest after uneventful bolus administration of intravenous contrast. Reconstructed CTA MIP acquisitions were also performed. INDICATION: Asthma. Shortness of breath. 125 mL of Omnipaque 350 is administered intravenously. FINDINGS: The pulmonary arteries are well opacified with no filling defects to suggest pulmonary embolism. The thoracic aorta is normal in caliber. No dissection or aneurysm. The heart size is normal. No pericardial or pleural effusion. There is a mildly enlarged right hilar lymph node measuring 1.1 cm. No left hilar or mediastinal lymphadenopathy. No axillary lymphadenopathy. The lungs demonstrate mild paraseptal emphysema changes in the lung apices. No significant consolidation, mass or suspicious nodule. The osseous structures demonstrate no significant abnormality. Sections in the upper abdomen appear grossly unremarkable. IMPRESSION: 1. No pulmonary embolism or aortic dissection. 2. Mildly enlarged 1.1 cm right hilar lymph node of questionable significance. 3. Mild emphysema changes in the lung apices seen. Dictated by: Dictated on workstation # [id number]
== END ==
LOC: RAD 13:36
PROVIDERS: ATTEND Internal Medicine Critical Care Medicine
DX: J45.909 Unspecified asthma, uncomplicated (principal); F41.9 Anxiety disorder, unspecified
CPT/HCPCS: 36415; 71275; 82565; 84520; 94060; 94726; 94729

== ENCOUNTER 2016-10-30 16:04 | Emergency (ER) | payer MEDICAID ==
[~2016-10-30] VITALS: Ht 157.5 cm; Wt 54.9 kg
[~2016-10-30 16:04] MED LIST changes: -CATHETER FLUSH 10 ML SYR IV PRN; -IOHEXOL 350 MG/ML 150 ML (OMNIPAQUE 350) VIAL IV ONE; -NS 100 ML (IVPB) BAG IV ONE; -RT-ALBUTEROL SULF 2.5 MG/3 ML PRE-MIX VIAL IH ONE; -RT-ALBUTEROL SULF 2.5 MG/3 ML PRE-MIX VIAL ONE
[2016-10-30] MEDS ORDERED: CYCL5TAB PO (17:02)
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
[2016-10-30] MEDS ORDERED: ORPHENADRINE 60 MG/2 ML (NORFLEX) AMP IM ONE (17:30)
[2016-10-30] MEDS ORDERED: KETOROLAC 60 MG/2 ML VIAL IM ONE (17:30)
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
[2016-10-30 18:46] VITALS: BP 125/90
== END 2016-10-30 18:46 | disposition home or self-care (01) ==
LOC: EDUNIT# 16:04 → ER 16:06
DX: S70.12XA Contusion of left thigh, initial encounter (principal); I10 Essential (primary) hypertension; J43.9 Emphysema, unspecified; E11.9 Type 2 diabetes mellitus without complications; F17.210 Nicotine dependence, cigarettes, uncomplicated; Z79.899 Other long term (current) drug therapy; V09.29XA Pedestrian injured in traffic accident involving other motor vehicles, initial encounter; Y92.481 Parking lot as the place of occurrence of the external cause; Y99.8 Other external cause status
CPT/HCPCS: 70450; 72100; 72125; 73552; 96372; 99282

== ENCOUNTER → 2016-11-06 | Outpatient (CLI) | payer MEDICAID ==
[2016-11-07 08:50] LABS: IMMUNOGLOBULIN IGA 158 mg/dL (71-263)
[2016-11-07 16:45] LABS: IGE DETAIL 240.1 IU/mL
[2016-11-07 17:21] LABS: INT IGE See Footnote
[2016-11-08 07:33] LABS: IMMUNOGLOBULIN IGM 49 mg/dL (47-209)
[2016-11-08 07:34] LABS: ELM TREE 0.51 H KU/L (0.00-0.34); ELM TREE CL CLASS 1; KENT BLUE CL CLASS 1; KENTUCKY BLUE GRASS RAST 0.37 H KU/L (0.00-0.34); OAK TREE CL CLASS 0; PECAN TR CL CLASS 0
[2016-11-08 07:35] LABS: BERMUDA CL CLASS 0; BERMUDA GRASS RAST <0.35 kU/L (<0.35); CAT DANDER RAST 22.20 H KU/L (0.00-0.34); JOHNSON GR CL CLASS 0; MARSH ELDER RAST 0.44 H KU/L (0.00-0.34); RAGWEED CL CLASS 1; RAGWEED RAST 0.56 H KU/L (0.00-0.34); ROUGH MARSH CL CLASS 1
[2016-11-08 07:36] LABS: ALLERGEN INTERP SEE FOOTNOTE; ALT TEN CL CLASS 3; CAT DANDER CL CLASS 4; CLADOSPORIUM CL CLASS 0; CLADOSPORIUM MOLD RAST <0.35 KU/L (0.00-0.34); DOG DANDER CL CLASS 2; DOG DANDER RAST 3.39 H KU/L (0.00-0.34); DUST MITE CL CLASS 0; DUST MITE RAST <0.35 kU/L (<0.35)
[2016-11-08 07:40] LABS: JOHNSON GRASS RAST <0.35 kU/L (<0.35); OAK TREE <0.35 kU/L (<0.35)
== END ==
LOC: LAB 12:14
PROVIDERS: ATTEND Internal Medicine Critical Care Medicine
DX: J45.909 Unspecified asthma, uncomplicated (principal); F41.9 Anxiety disorder, unspecified
CPT/HCPCS: 36415; 82784; 82785; 86003

== ENCOUNTER 2016-11-13 13:50 | Outpatient (CLI) | payer MEDICAID ==
[~2016-11-13 13:50] MED LIST changes: -BARIUM SUSPENSION 105% (LIQUID POLIBAR PLUS) 240 ML/DOSE PO ONE; -BARIUM SUSPENSION 60% (LIQUID EZ PAQUE) 240 ML DOSE PO ONE
== END 2016-11-13 14:25 | disposition home or self-care (01) ==
LOC: SLEEP 13:50
PROVIDERS: ATTEND Internal Medicine Critical Care Medicine
DX: J45.909 Unspecified asthma, uncomplicated (principal); F41.9 Anxiety disorder, unspecified

== ENCOUNTER → 2016-11-13 | Outpatient (CLI) | payer MEDICAID ==
[~2016-11-13] MED LIST changes: +BARIUM SUSPENSION 105% (LIQUID POLIBAR PLUS) 240 ML/DOSE PO ONE; +BARIUM SUSPENSION 60% (LIQUID EZ PAQUE) 240 ML DOSE PO ONE
--- NOTE | 2016-11-13 10:44 | Diagnostic Imaging Report ---
EXAMINATION: Barium swallow double-contrast. INDICATION: Dysphagia Fluoroscopy time: 40 seconds TECHNIQUE: Visual Merchandising Manager image of the chest was performed. Subsequently, the patient was given gas forming granules for oral ingestion followed by thick and thin barium to drink. Swallowing through the esophagus was observed with fluoroscopy and overhead images, as well as multiple spot images in the upright and prone positions, were taken. FINDINGS: Visual Merchandising Manager image of the chest demonstrate no significant abnormality. No significant reflux is seen during the study. Normal motility seen. The esophagus is normal in caliber and contour. There is no mucosal abnormality, diverticulum or filling defect to suggest a mass. There is no hiatal hernia demonstrated. IMPRESSION: Unremarkable barium swallow. Dictated by: Dictated on workstation # [id number]
== END ==
LOC: RAD 09:09
PROVIDERS: ATTEND Surgery
DX: R13.10 Dysphagia, unspecified (principal)
CPT/HCPCS: 74220

== ENCOUNTER 2016-12-17 11:42 | Emergency (ER) | payer MEDICAID ==
[~2016-12-17] VITALS: Ht 162.6 cm; Wt 53.1 kg
--- NOTE | 2016-12-17 12:29 | ED Headache ---
General Chief Complaint: Head/Cervical Problems Stated Complaint: MIGRAINE//BODY CRAMPS Nursing Triage Note: PT AMBULATED TO ROOM. PT STATES SHE HAS HAD SEVERE SU FOR APPROX. 2 WEEKS. PT ALSO STATES SHE HAS BEEN HAVING "ROLAND HORSE SPAMS" ALL OVER HER BODY MOSTLY AT NIGHT. PT STATES SHE HAD AN APPOINTMENT IN DECEMBER BUT IT GOT CANCELED. Nursing Sepsis Screen: No Definite Risk Source: patient Exam Limitations: no limitations History of Present Illness Time seen by provider: 12:09 Initial Comments 36 yo female patient presents to the ED with c/o migraine headache and spasm of the bilat lower legs/feet and bilat forearms/hands for 2 wks. Worse at nighttime. Does report a history of migraine/headaches. States this episode is similar to usual migraines. Reports she had a in appointment with a neurologist at in December, but states the office canceled her appointment. Patient does see Dr. Mcneil, but was referred to because Dr. Mcneil "doesn't know what to do with me". Denies known injury. Patient sees Tammy Mercado APRN (states she called their office this AM and didn't hear back from them, so she came to the ED). 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 States symptoms are worse at night after getting home from work. States she drinks a lot of tea and Crystal light. Timing/Duration: constant, other (2 weeks) Severity/Quality: throbbing Location: global Prior Headaches/Recent Trauma: occasional headaches ((has h/o migraines)) Modifying Factors: worse with exposure to light, worse with other (exposure to sound) Allergies and Home Medications Allergies Coded Allergies: Penicillins (Unverified Allergy, Mild, 06/13/16) moxifloxacin (Unverified Allergy, Mild, tongue swelling, 06/13/16) Sulfa (Sulfonamide Antibiotics) (Verified Allergy, Unknown, 06/13/16) Home Medications Albuterol 8.5 Gm Hfa.aer.ad, 2 PUFF IH QID PRN for SHORTNESS OF BREATH, ( Reported) Alprazolam 1 Mg Tablet, 1 MG PO TID PRN for ANXIETY, (Reported) Cyclobenzaprine HCl 5 Mg Tablet, 5 MG PO, (Reported) Cyclobenzaprine HCl 5 Mg Tablet, 5 MG PO TID PRN for PAIN-MILD, #21 Prescribed by: TONO CHASE on 10/30/16 1702 Diclofenac Potassium 50 Mg Tablet, 50 MG PO Q6H PRN for hand pain/swelling, #30 Ref 0 Prescribed by: ERIC BETTS on 07/12/15 0827 Epinephrine 0.3 Mg/0.3 Ml Pen.injctr, 0.3 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, (Reported) Escitalopram Oxalate 20 Mg Tablet, 40 MG PO DAILY, (Reported) TAKES 2 (20MG) TABLETS Metoprolol Succinate 50 Mg Tab.er.24h, 50 MG PO DAILY, #30 (Reported) Prednisone 20 Mg Tab, 40 MG PO DAILY, #8 Prescribed by: TONO CHASE on 06/02/16 1211 Triamterene 50 Mg Capsule, 50 MG PO DAILY, (Reported) [flexeril ] , 5 MG PO TID PRN for PAIN, #20 Prescribed by: TONO CHASE on 06/02/16 1211 Constitutional: No chills, No fever, No malaise Eyes: Denies Foreign Body Sensation, Denies Inflammation, Denies Pain, Photophobia, Denies Vision Changes Ears, Nose, Mouth, Throat: no symptoms reported Respiratory: no symptoms reported Cardiovascular: no symptoms reported Gastrointestinal: No abdominal pain, loss of appetite, nausea, vomiting Genitourinary: No decreased output, No dysuria, No frequency, No hematuria Musculoskeletal: see HPI, muscle pain (bilateral forearms/hands and bilat lower calves/feet.), muscle cramps Skin: no symptoms reported Psychiatric/Neurological: Headache, Denies Numbness, Denies Paresthesia, Denies Seizure, Denies Tingling, Denies Weakness All Other Systems Reviewed Negative Unless Noted: Yes (Negative excepted noted.) Past Qvyulzj-Clrmxq-Onofny Hx Patient Social History Alcohol Use: Denies Use Recreational Drug Use: Yes (SMOKES 1PPD) Smoking Status: Current Everyday Smoker Type Used: Cigarettes 2nd Hand Smoke Exposure: Yes Recent Foreign Travel: No Contact w/Someone Who Travel: No Recent Infectious Disease Expo: No Recent Hopitalizations: No Immunizations Up To Date Tetanus Booster (TDap): Less than 5yrs PED Vaccines UTD: Yes Date of Pneumonia Vaccine: Apr 09, 2013 Date of Influenza Vaccine: Apr 09, 2016 Seasonal Allergies Seasonal Allergies: No Surgeries HX Surgeries: Yes Surgeries: Appendectomy, Orthopedic Respiratory Hx Respiratory Disorders: Yes Respiratory Disorders: Asthma, Emphysema Cardiovascular Hx Cardiac Disorders: Yes (hx angioedema) Cardiac Disorders: Heart Murmur, Hypertension Neurological Hx Neurological Disorders: No Reproductive System Hx Reproductive Disorders: No Sexually Transmitted Disease: No HIV/AIDS: No Female Reproductive Disorders: Denies Genitourinary Hx Genitourinary Disorders: Yes (CHRONIC HEMATURIA) Genitourinary Disorders: Kidney Infection, Bladder Infection, Kidney Stones Gastrointestinal Hx Gastrointestinal Disorders: No Musculoskeletal Hx Musculoskeletal Disorders: Yes Musculoskeletal Disorders: Chronic Back Pain Endocrine Hx Endocrine Disorders: Yes Endocrine Disorders: Diabetes, Non-Insulin dep HEENT HX ENT Disorders: No Loss of Vision: Denies Hearing Impairment: Denies Cancer Hx Cancer: No Psychosocial Hx Psychiatric Problems: Yes Behavioral Health Disorders: Anxiety, Depression Integumentary HX Skin/Integumentary Disorder: Yes (hives r/t allergic reaction ) Skin/Integumentary Disorders: Recent Skin Changes Blood Transfusions Hx Blood Disorders: No Adverse Reaction to a Blood Tr: No (never had a transfusion) Reviewed Nursing Assessment Reviewed/Agree w Nursing PMH: Yes Family Medical History Significant Family History: No Pertinent Family Hx, Heart Disease, Cancer, Renal Disease Family Medial History: Cardiovascular disease 19 FATHER Hypertension 19 FATHER Myocardial infarction 19 FATHER No Family History of: Diabetes mellitus Respiratory disorder Seizure disorder Physical Exam Vital Signs Vital Sign - Last 12Hours 12/17/16 11:49 Temp 97.2 Pulse 66 Resp 20 B/P (MAP) 130/88 Pulse Ox 100 O2 Delivery Room Air Capillary Refill : Less Than 3 Seconds General Appearance: WD/WN, no apparent distress HEENT: PERRL/EOMI, normal ENT inspection, TMs normal, pharynx normal Neck: non-tender, full range of motion, supple, normal inspection Cardiovascular: normal peripheral pulses, regular rate, rhythm, no edema, no murmur Respiratory: lungs clear, normal breath sounds, no respiratory distress Gastrointestinal: normal bowel sounds, non tender, soft, no organomegaly, No distended Back: normal inspection Extremities: normal range of motion, normal inspection, no pedal edema, normal capillary refill, pelvis stable, other (generalized soft tissue tenderness of the BLE, bilateral forearms, and bilateral hands. ) Psychiatric: alert, oriented x 3 Crainal Nerves: normal hearing, normal speech, PERRL Coordination/Gait: normal finger to nose, normal gait, negative Romberg's sign Motor/Sensory: no motor deficit, no sensory deficit, no pronator drift Skin: normal color, warm/dry Progress/Results/Core Measures Results/Orders Lab Results Laboratory Tests Test 12/17/16 13:30 Range/Units White Blood Count 8.1 4.3-11.0 10^3/uL Red Blood Count 3.99 L 4.35-5.85 10^6/uL Hemoglobin 13.4 11.5-16.0 G/DL Hematocrit 39 35-52 % Mean Corpuscular Volume 99 80-99 FL Mean Corpuscular Hemoglobin 34 25-34 PG Mean Corpuscular Hemoglobin Concent 34 32-36 G/DL Red Cell Distribution Width 12.9 10.0-14.5 % Platelet Count 316 130-400 10^3/uL Mean Platelet Volume 8.8 7.4-10.4 FL Neutrophils (%) (Auto) 66 42-75 % Lymphocytes (%) (Auto) 25 12-44 % Monocytes (%) (Auto) 8 0-12 % Eosinophils (%) (Auto) 1 0-10 % Basophils (%) (Auto) 1 0-10 % Neutrophils # (Auto) 5.4 1.8-7.8 X 10^3 Lymphocytes # (Auto) 2.0 1.0-4.0 X 10^3 Monocytes # (Auto) 0.6 0.0-1.0 X 10^3 Eosinophils # (Auto) 0.1 0.0-0.3 10^3/uL Basophils # (Auto) 0.0 0.0-0.1 10^3/uL Sodium Level 142 135-145 MMOL/L Potassium Level 4.0 3.6-5.0 MMOL/L Chloride Level 111 H 98-107 MMOL/L Carbon Dioxide Level 24 21-32 MMOL/L Anion Gap 7 5-14 MMOL/L Blood Urea Nitrogen 8 7-18 MG/DL Creatinine 0.75 0.60-1.30 MG/DL Estimat Glomerular Filtration Rate > 60 BUN/Creatinine Ratio 11 0-20 Glucose Level 85 70-105 MG/DL Calcium Level 8.9 8.5-10.1 MG/DL Total Bilirubin 0.7 0.1-1.0 MG/DL Aspartate Amino Transf (AST/SGOT) 16 5-34 U/L Alanine Aminotransferase (ALT/SGPT) 17 0-55 U/L Alkaline Phosphatase 54 40-136 U/L Total Protein 6.8 6.4-8.2 GM/DL Albumin 4.0 3.2-4.5 GM/DL My Orders Orders - ROXANNE WADE Saline Lock/Iv-Start (12/17/16 12:31) Ns Iv 1000 Ml (Sodium Chloride 0.9%) (12/17/16 12:31) Ondansetron Injection (Zofran Injectio (12/17/16 12:45) Ketorolac Injection (Toradol Injection) (12/17/16 12:31) Orphenadrine Injection (Norflex Injectio (12/17/16 12:31) Cbc With Automated Diff (12/17/16 12:31) Comprehensive Metabolic Panel (12/17/16 12:31) Diphenhydramine Tablet (Benadryl Tablet) (12/17/16 12:45) Medications Given in ED Current Medications Medications Dose Ordered Sig/Wallace Route Start Time Stop Time Status Last Admin Dose Admin Diphenhydramine HCl 25 mg ONCE ONCE PO 12/17/16 12:45 12/17/16 12:46 DC 12/17/16 13:30 25 MG Ondansetron HCl 4 mg ONCE ONCE IVP 12/17/16 12:45 12/17/16 12:46 DC 12/17/16 13:34 4 MG Sodium Chloride 1,000 ml @ 0 mls/hr Q0M ONCE IV 12/17/16 12:31 12/17/16 12:34 DC 12/17/16 13:34 1,000 MLS/HR Vital Signs/I&O Vital Sign - Last 12Hours 12/17/16 12/17/16 11:49 14:38 Temp 97.2 Pulse 66 66 Resp 20 18 B/P (MAP) 130/88 Pulse Ox 100 98 O2 Delivery Room Air Blood Pressure Mean: 102 Departure Communication Progress Notes Patient seen and evaluated. All laboratory findings were discussed with the patient. Patient was given IV fluids, Toradol, Norflex, Benadryl, and Zofran. Patient reports improvement in symptoms with medications. Request muscle cramps are completely resolved. Proceed with discharge to home. Patient ambulated from the emergency department without difficulty. Impression Impression: Primary Impression: Migraine Qualified Codes: G43.009 - Migraine without aura, not intractable, without status migrainosus Additional Impression: Heat exhaustion Qualified Codes: T67.5XXA - Heat exhaustion, unspecified, initial encounter Disposition: 01 HOME, SELF-CARE Condition: Improved Departure-Patient Inst. Decision time for Depature: 14:05 Referrals: TAMMY MERCADO (PCP) Primary Care Physician [facility] (Family) Primary Care Physician Patient Instructions: Heat Exhaustion and Heat Stroke (DC), Migraine Headache ( DC) Add. Discharge Instructions: All discharge instructions reviewed with patient and/or family. Voiced understanding. Continue usual home medications. Drink plenty of fluids. Alternate water and powerade/gatorade. Follow-up with Tammy Mercado APRN for recheck. Call for appointment time. Return to the emergency department for worsened headache, changes in vision, slurred speech, facial drooping, numbness , or any other concerns. ROXANNE WADE Dec 17, 2016 12:29
[2016-12-17] MEDS ORDERED: NS IV 1000 ML 1,000 ML IV ONE (12:31)
[2016-12-17] MEDS ORDERED: ORPHENADRINE 60 MG/2 ML (NORFLEX) AMP IV STA (12:31)
[2016-12-17] MEDS ORDERED: KETOROLAC 30 MG/ML VIAL IVP STA (12:31)
[2016-12-17] MEDS ORDERED: diphenhydrAMINE 25 MG TAB (BENADRYL) PO ONE (12:45)
[2016-12-17] MEDS ORDERED: ONDANSETRON 4 MG/2 ML (SDV) Z0FRAN IVP ONE (12:45)
[2016-12-17 13:44] LABS: BASOPHILS % (AUTO) 1 % (0-10); EOSINOPHILS # (AUTO) 0.1 10^3/uL (0.0-0.3); EOSINOPHILS % (AUTO) 1 % (0-10); LYMPHOCYTES % (AUTO) 25 % (12-44); MEAN CORPUSCULAR HEMOGLOBIN 34 PG (25-34); MEAN CORPUSCULAR HGB CONC 34 G/DL (32-36); MEAN CORPUSCULAR VOLUME 99 FL (80-99); MEAN PLATELET VOLUME 8.8 FL (7.4-10.4); MONOCYTES # (AUTO) 0.6 X 10^3 (0.0-1.0); MONOCYTES % (AUTO) 8 % (0-12); NEUTROPHILS # (AUTO) 5.4 X 10^3 (1.8-7.8); NEUTROPHILS % (AUTO) 66 % (42-75); PLATELET COUNT 316 10^3/uL (130-400); RED BLOOD COUNT 3.99 10^6/uL (4.35-5.85); RED CELL DISTRIBUTION WIDTH 12.9 % (10.0-14.5); WHITE BLOOD COUNT 8.1 10^3/uL (4.3-11.0)
[2016-12-17 14:03] LABS: ALANINE AMINOTRANSFERASE 17 U/L (0-55); ANION GAP 7 MMOL/L (5-14); ASPARTATE AMINO TRANSFERASE 16 U/L (5-34); BILIRUBIN,TOTAL 0.7 MG/DL (0.1-1.0); BLOOD UREA NITROGEN 8 MG/DL (7-18); BUN/CREATININE RATIO 11 (0-20); CALCIUM 8.9 MG/DL (8.5-10.1); CARBON DIOXIDE 24 MMOL/L (21-32); CHLORIDE 111 MMOL/L (98-107); CREATININE SERUM 0.75 MG/DL (0.60-1.30); GFR ESTIMATED > 60; GLUCOSE 85 MG/DL (70-105); HEMOLYSIS 14 (-100-29); ICTERUS 0.7 (-100-1.9); LIPEMIA 5 (-100-49); SODIUM 142 MMOL/L (135-145); TOTAL PROTEIN 6.8 GM/DL (6.4-8.2)
[2016-12-17 14:38] VITALS: BP 118/63
--- OUTSIDE RECORDS SUMMARY | 2016-12-20 10:46 | XMS REPORT | Continuity of Care Document ---
Author Author [facility] Organization [facility] Address Unknown Phone Unavailable Care Team Providers Care Plumbing Manager Name Role Phone Taras, Tammy PCP [phone] Source Comments Some departments are not documenting in the electronic medical record. If you do not see the information that you expected, contact Release of Information in the Health Information Management department at [phone] for further assistance in locating additional records.[facility] Active Allergies and Adverse Reactions Allergen [...] Taken Blood Pressure 131/50 05/25/2013 11:03 AM [employer] SALES EXEC[employer]IVE Pulse 73 05/25/2013 11:03 AM [employer] SAL[employer] EX[employer] Temperature 36.1 C (97 F) 05/25/2013 11:03 AM [employer] SAL[employer] EXEC[employer]IVE Respiratory Rate 16 05/25/2013 11:03 AM [employer] SAL[employer] EX[employer]IVE Height 1.584 m (5' 2.36") 05/25/2013 11:03 AM [employer] SAL[employer] EXEC[employer]IVE Weight 59.421 kg (131 lb) 05/25/2013 11:03 AM [employer] SAL[employer] EXEC[employer]IVE Body Mass Index 23.68 05/25/2013 11:03 AM [employer] SAL[employer] EXEC[employer]IVE Oxygen Saturation 97% 05/25/2013 11:03 AM [employer] SAL[employer] EXEC[employer]IVE Plan of Care Health Maintenance Due Date Last Done Comments Physical (Comprehensive) 11/19/1986 Exam Pertussis Vaccine 11/19/1990 Tetanus Vaccine 11/19/1996 Cervical Cancer Screening 11/19/2000 Influenza Vaccine 03/01/2017 Results from Last 3 Months Not on file
--- OUTSIDE RECORDS SUMMARY | 2016-12-20 10:54 | XMS REPORT | Continuity of Care Document ---
Author Author Formerly [facility], 1928–1983 [facility] Address Unknown Phone Unavailable Allergies [...] Drug Allergy N/A N/A 06/21/2014 Yes moxifloxacin [id number] Drug Allergy Mild tongue swelling 06/13/2016 Yes Penicillins [id number] Drug Allergy Mild N/A 06/13/2016 Yes Sulfa (Sulfonamide Antibiotics) [id number] Drug Allergy Unknown N/A 06/13/2016 Medications Problems [...] Au V58.69 Medication High Risk 02/06/2008 JESS OPS ANALYST, MARIA DE JESUS S V58.69 Medication High Risk 02/06/2008 JESS OPS ANALYST, MARIA DE JESUS S V58.69 Medication High Risk 02/06/2008 JESS OPS ANALYST, MARIA DE JESUS S V58.69 Medication High Risk 02/06/2008 JESS OPS ANALYST, MARIA DE JESUS S V58.69 Medication High Risk 02/06/2008 JESS OPS ANALYST, MARIA DE JESUS S V58.69 Medication High Risk 02/06/2008 JESS OPS ANALYST, MARIA DE JESUS S V58.69 Medication High Risk 02/06/2008 MANNY ZAMUDIO, JUAN R Leonardo V58.69 Medication High Risk 02/06/2008 JESS OPS ANALYST, MARIA DE JESUS S V58.69 Medication High [...] S 307.47 SI DYSSOMNIA NOS 03/10/2008 SULLIVAN OPS ANALYST, ROSALINO R 296.90 Unspecified Episodic Mood Disorder 03/10/2008 SULLIVAN OPS ANALYST, ROSALINO R 300.00 An Anxiety Unspec 03/10/2008 SULLIVAN OPS ANALYST, ROSALINO R 307.47 SI DYSSOMNIA NOS 03/10/2008 JESS OPS ANALYST, MARIA DE JESUS S 296.90 Unspecified Episodic Mood Disorder 03/10/2008 JESS OPS ANALYST, MARIA DE JESUS S 300.00 An Anxiety Unspec 03/10/2008 JESS OPS ANALYST, MARIA DE JESUS S 307.47 SI DYSSOMNIA NOS 03/10/2008 JESS OPS ANALYST, MARIA DE JESUS S 296.90 Unspecified Episodic Mood Disorder 03/10/2008 JESS OPS ANALYST, MARIA DE JESUS S 300.00 An Anxiety Unspec 03/10/2008 JESS OPS ANALYST, MARIA DE JESUS S 307.47 SI DYSSOMNIA NOS 03/10/2008 JESS OPS ANALYST, MARIA DE JESUS S 296.90 Unspecified Episodic [...] S 307.47 SI DYSSOMNIA NOS 03/10/2008 JESS OPS ANALYST, MARIA DE JESUS S 296.90 Unspecified Episodic Mood Disorder 03/10/2008 JESS OPS ANALYST, MARIA DE JESUS S 300.00 An Anxiety Unspec 03/10/2008 JESS RUIZ, MARIA DE JESUS S 307.47 SI DYSSOMNIA NOS 03/10/2008 JESS OPS ANALYST, MARIA DE JESUS S 296.90 Unspecified Episodic Mood Disorder 03/10/2008 JESS OPS ANALYST, MARIA DE JESUS S 300.00 An Anxiety Unspec 03/10/2008 JESS OPS ANALYST, MARIA DE JESUS S 307.47 SI DYSSOMNIA NOS 03/10/2008 JESS OPS ANALYST, MARIA DE JESUS S 296.90 Unspecified Episodic Mood Disorder 03/10/2008 EJSS OPS ANALYST, MARIA DE JESUS S 300.00 An Anxiety Unspec 03/10/2008 JESS OPS ANALYST, MARIA DE JESUS S 307.47 SI DYSSOMNIA NOS 03/10/2008 JESS OPS ANALYST, MARIA DE JESUS S 296.90 Unspecified Episodic Mood Disorder 03/10/2008 JESS OPS ANALYST, MARIA DE JESUS S 300.00 An Anxiety Unspec 03/10/2008 JESS OPS ANALYST, MARIA DE JESUS S 307.47 SI DYSSOMNIA NOS 03/10/2008 JESS OPS ANALYST, MARIA DE JESUS S 296.90 Unspecified Episodic Mood Disorder 03/10/2008 JESS OPS ANALYST, MARIA DE JESUS S 300.00 An Anxiety Unspec 03/10/2008 JESS OPS ANALYST, MARIA DE JESUS S 307.47 SI DYSSOMNIA [...] S 300.00 An Anxiety Unspec 03/10/2008 JESS OPS ANALYST, MARIA DE JESUS S 307.47 SI DYSSOMNIA NOS 04/08/2008 JESS OPS ANALYST, MARIA DE JESUS S 995.20 Unspecified Adverse [...] SULLIVAN APRN R 790.29 Hyperglycemia 10/15/2008 JESS OPS ANALYST, MARIA DE JESUS S 790.29 Hyperglycemia 10/15/2008 JESS OPS ANALYST, MARIA DE JESUS S 790.29 Hyperglycemia 10/15/2008 JESS OPS ANALYST, MARIA DE JESUS S 790.29 Hyperglycemia 10/15/2008 MT GRANT MD 790.29 Hyperglycemia 10/15/2008 MONA FOLEY DO 790.29 Hyperglycemia 10/15/2008 JESS OPS ANALYST, MARIA DE JESUS S 790.29 Hyperglycemia 10/15/2008 JESS OPS ANALYST, MARIA DE JESUS S 790.29 Hyperglycemia 10/15/2008 JESS OPS ANALYST, MARIA DE JESUS S 790.29 Hyperglycemia 10/15/2008 JESS OPS ANALYST, MARIA DE JESUS S 790.29 Hyperglycemia 10/15/2008 JESS OPS ANALYST, MARIA DE JESUS S 790.29 Hyperglycemia 10/15/2008 JESS OPS ANALYST, MARIA DE JESUS S 790.29 Hyperglycemia 10/15/2008 MANNY ZAMUDIO, JUAN R Leonardo 790.29 Hyperglycemia 10/15/2008 JESS OPS ANALYST, MARIA DE JESUS S 790.29 Hyperglycemia 12/31/2008 [...] Tract Infection Site Not Specified 02/22/2009 JESS OPS ANALYST, MARIA DE JESUS S 300.4 DYSTHYMIC DISORDER 02/22/2009 JESS OPS ANALYST, MARIA DE JESUS S 599.0 Urinary Tract Infection Site Not Specified 02/22/2009 JESS OPS ANALYST, MARIA DE JESUS S 300.4 DYSTHYMIC DISORDER 02/22/2009 JESS OPS ANALYST, MARIA DE JESUS S 599.0 Urinary Tract Infection Site Not Specified 02/22/2009 JESS OPS ANALYST, MARIA DE JESUS S 300.4 DYSTHYMIC DISORDER 02/22/2009 JESS OPS ANALYST, MARIA DE JESUS S 599.0 Urinary Tract Infection Site Not Specified 02/22/2009 MT GRANT MD 300.4 DYSTHYMIC DISORDER 02/22/2009 MT RGANT MD 599.0 Urinary Tract Infection Site Not Specified 02/22/2009 FOLEY DO, MONA K 300.4 DYSTHYMIC DISORDER 02/22/2009 FOLEY DO, MONA K 599.0 Urinary Tract Infection Site Not Specified 02/22/2009 JESS OPS ANALYST, MARIA DE JESUS S 300.4 DYSTHYMIC DISORDER 02/22/2009 JESS OPS ANALYST, MARIA DE JESUS S 599.0 Urinary Tract Infection Site Not Specified 02/22/2009 JESS OPS ANALYST, MARIA DE JESUS S 300.4 DYSTHYMIC DISORDER 02/22/2009 JESS OPS ANALYST, MARIA DE JESUS S 599.0 Urinary Tract Infection Site Not Specified 02/22/2009 JESS OPS ANALYST, MARIA DE JESUS S 300.4 DYSTHYMIC DISORDER 02/22/2009 JESS OPS ANALYST, MARIA DE JESUS S 599.0 Urinary Tract Infection Site Not Specified 02/22/2009 JESS OPS ANALYST, MARIA DE JESUS S 300.4 DYSTHYMIC DISORDER 02/22/2009 JESS OPS ANALYST, MARIA DE JESUS S 599.0 Urinary Tract Infection Site Not Specified 02/22/2009 JESS OPS ANALYST, MARIA DE JESUS S 300.4 DYSTHYMIC DISORDER 02/22/2009 JESS OPS ANALYST, MARIA DE JESUS S 599.0 Urinary Tract Infection Site Not Specified 02/22/2009 JESS OPS ANALYST, MARIA DE JESUS S 300.4 DYSTHYMIC DISORDER 02/22/2009 JESS OPS ANALYST, MARIA DE JESUS S 599.0 Urinary Tract Infection Site Not Specified 02/22/2009 MANNY PHD, JUAN R Leonardo 300.4 DYSTHYMIC DISORDER 02/22/2009 MANNY PHD, JUAN R Leonardo 599.0 Urinary Tract Infection Site Not Specified 02/22/2009 JESS OPS ANALYST, MARIA DE JESUS S 300.4 DYSTHYMIC DISORDER 02/22/2009 JESS OPS ANALYST, MARIA DE JESUS S 599.0 Urinary Tract Infection Site Not Specified 06/15/2009 JESS OPS ANALYST, MARIA DE JESUS S V74.1 Screening Examination For Pulmonary Tuberculosis 06/15/2009 V74.1 Screening Examination For Pulmonary Tuberculosis 06/15/2009 JESS OPS ANALYST, MARIA DE JESUS S V74.1 Screening Examination For Pulmonary Tuberculosis 06/15/2009 V74.1 Screening Examination For Pulmonary Tuberculosis 06/15/2009 JESS OPS ANALYST, MARIA DE JESUS S V74.1 Screening Examination For Pulmonary Tuberculosis 06/15/2009 LAURIE RUIZ, ROSALINO Keller V74.1 Screening Examination For Pulmonary Tuberculosis 06/15/2009 JESS OPS ANALYST, MARIA DE JESUS S V74.1 Screening Examination For Pulmonary Tuberculosis 06/15/2009 JESS OPS ANALYST, MARIA DE JESUS S V74.1 Screening Examination For Pulmonary Tuberculosis 06/15/2009 JESS OPS ANALYST, MARIA DE JESUS S V74.1 Screening Examination For Pulmonary Tuberculosis 06/15/2009 MT GRANT MD V74.1 Screening Examination For Pulmonary Tuberculosis 06/15/2009 MONA FOLEY DO V74.1 Screening Examination For Pulmonary Tuberculosis 06/15/2009 JESS OPS ANALYST, MARIA DE JESUS S V74.1 Screening Examination For Pulmonary Tuberculosis 06/15/2009 JESS OPS ANALYST, MARIA DE JESUS S V74.1 Screening Examination For Pulmonary Tuberculosis 06/15/2009 JESS OPS ANALYST, MARIA DE JESUS S V74.1 Screening Examination For Pulmonary Tuberculosis 06/15/2009 JESS OPS ANALYST, MARIA DE JESUS S V74.1 Screening Examination For Pulmonary Tuberculosis 06/15/2009 JESS OPS ANALYST, MARIA DE JESUS S V74.1 Screening Examination For Pulmonary Tuberculosis 06/15/2009 JESS OPS ANALYST, MARIA DE JESUS S V74.1 Screening Examination For Pulmonary Tuberculosis 06/15/2009 MANNY ZAMUDIOJUAN R V74.1 Screening Examination For Pulmonary Tuberculosis 06/15/2009 JESS OPS ANALYST, MARIA DE JESUS S V74.1 Screening Examination For Pulmonary Tuberculosis 08/22/2009 JESS OPS ANALYST, MARIA DE JESUS S 465.9 Acute Upper Respiratory Infections Of Unspecified Site 08/22/2009 JESS OPS ANALYST, MARIA DE JESUS S 599.70 Hematuria, Unspecified 08/22/2009 465.9 Acute Upper Respiratory Infections Of Unspecified Site 08/22/2009 599.70 Hematuria, Unspecified 08/22/2009 JESS OPS ANALYST, MARIA DE JESUS S 465.9 Acute Upper Respiratory Infections Of Unspecified Site 08/22/2009 JESS OPS ANALYST, MARIA DE JESUS S 599.70 Hematuria, Unspecified 08/22/2009 465.9 Acute Upper Respiratory Infections Of Unspecified Site 08/22/2009 599.70 Hematuria, Unspecified 08/22/2009 JESS OPS ANALYST, MARIA DE JESUS S 465.9 Acute Upper Respiratory Infections Of Unspecified Site 08/22/2009 JESS OPS ANALYST, MARIA DE JESUS S 599.70 Hematuria, Unspecified 08/22/2009 SULLIVAN OPS ANALYST, ROSALINO R 465.9 Acute Upper Respiratory Infections Of Unspecified Site 08/22/2009 SULLIVAN OPS ANALYST, ROSALINO R 599.70 Hematuria, Unspecified 08/22/2009 JESS OPS ANALYST, MARIA DE JESUS S 465.9 Acute Upper Respiratory Infections Of Unspecified Site 08/22/2009 JESS OPS ANALYST, MARIA DE JESUS S 599.70 Hematuria, Unspecified 08/22/2009 JESS OPS ANALYST, MARIA DE JESUS S 465.9 Acute Upper Respiratory Infections Of Unspecified Site 08/22/2009 JESS OPS ANALYST, MARIA DE JESUS S 599.70 Hematuria, Unspecified 08/22/2009 JESS OPS ANALYST, MARIA DE JESUS S 465.9 Acute Upper Respiratory Infections Of Unspecified Site 08/22/2009 JESS OPS ANALYST, MARIA DE JESUS S 599.70 Hematuria, Unspecified 08/22/2009 MT GRANT MD 465.9 Acute Upper Respiratory Infections Of Unspecified Site 08/22/2009 MT GRANT MD 599.70 Hematuria, Unspecified 08/22/2009 MONA FOLEY DO 465.9 Acute Upper Respiratory Infections Of Unspecified Site 08/22/2009 FOLEY DO, MONA K 599.70 Hematuria, Unspecified 08/22/2009 JESS OPS ANALYST, MARIA DE JESUS S 465.9 Acute Upper Respiratory Infections Of Unspecified Site 08/22/2009 JESS OPS ANALYST, MARIA DE JESUS S 599.70 Hematuria, Unspecified 08/22/2009 JESS OPS ANALYST, MARIA DE JESUS S 465.9 Acute Upper Respiratory Infections Of Unspecified Site 08/22/2009 JESS OPS ANALYST, MARIA DE JESUS S 599.70 Hematuria, Unspecified 08/22/2009 JESS OPS ANALYST, MARIA DE JESUS S 465.9 Acute Upper Respiratory Infections Of Unspecified Site 08/22/2009 JESS OPS ANALYST, MARIA DE JESUS S 599.70 Hematuria, Unspecified 08/22/2009 JESS OPS ANALYST, MARIA DE JESUS S 465.9 Acute Upper Respiratory Infections Of Unspecified Site 08/22/2009 JESS OPS ANALYST, MARIA DE JESUS S 599.70 Hematuria, Unspecified 08/22/2009 JESS OPS ANALYST, MARIA DE JESUS S 465.9 Acute Upper Respiratory Infections Of Unspecified Site 08/22/2009 JESS OPS ANALYST, MARIA DE JESUS S 599.70 Hematuria, Unspecified 08/22/2009 JESS OPS ANALYST, MARIA DE JESUS S 465.9 Acute Upper Respiratory Infections Of Unspecified Site 08/22/2009 JESS OPS ANALYST, MARIA DE JESUS S 599.70 Hematuria, Unspecified 08/22/2009 MANNY PHD, JUAN R A 465.9 Acute Upper Respiratory Infections Of Unspecified Site 08/22/2009 MANNY PHD, JUAN R A 599.70 Hematuria, Unspecified 08/22/2009 JESS OPS ANALYST, MARIA DE JESUS S 465.9 Acute Upper Respiratory Infections Of Unspecified Site 08/22/2009 JESS OPS ANALYST, MARIA DE JESUS S 599.70 Hematuria, Unspecified 08/24/2009 JESS OPS ANALYST, MARIA DE JESUS S 486 Pneumonia, Organism Unspecified 08/24/2009 486 Pneumonia, Organism Unspecified 08/24/2009 JESS OPS ANALYST, MARIA DE JESUS S 486 Pneumonia, Organism Unspecified 08/24/2009 486 Pneumonia, Organism Unspecified 08/24/2009 JESS OPS ANALYST, MARIA DE JESUS S 486 Pneumonia, Organism Unspecified 08/24/2009 SULLIVAN OPS ANALYST, ROSALINO R 486 Pneumonia, Organism Unspecified 08/24/2009 JESS OPS ANALYST, MARIA DE JESUS S 486 Pneumonia, Organism Unspecified 08/24/2009 JESS OPS ANALYST, MARIA DE JESUS S 486 Pneumonia, Organism Unspecified 08/24/2009 JESS OPS ANALYST, MARIA DE JESUS S 486 Pneumonia, Organism Unspecified 08/24/2009 RUDY MOROCHO, [place] 486 Pneumonia, Organism Unspecified 08/24/2009 MONA FOLEY DO 486 Pneumonia, Organism Unspecified 08/24/2009 JESS OPS ANALYST, MARIA DE JESUS S 486 Pneumonia, Organism Unspecified 08/24/2009 JESS OPS ANALYST, MARIA DE JESUS S 486 Pneumonia, Organism Unspecified 08/24/2009 JESS OPS ANALYST, MARIA DE JESUS S 486 Pneumonia, Organism Unspecified 08/24/2009 JESS OPS ANALYST, MARIA DE JESUS S 486 Pneumonia, Organism Unspecified 08/24/2009 JESS OPS ANALYST, MARIA DE JESUS S 486 Pneumonia, Organism Unspecified 08/24/2009 JESS OPS ANALYST, MARIA DE JESUS S 486 Pneumonia, Organism Unspecified 08/24/2009 MANNY PHD, JUAN R A 486 Pneumonia, Organism Unspecified 08/24/2009 JESS OPS ANALYST, MARIA DE JESUS S 486 Pneumonia, Organism Unspecified 08/26/2009 Ot 486 PNEUMONIA, ORGANISM NOS 08/26/2009 Ot 599.70 HEMATURIA, UNSPECIFIED 08/26/2009 Ot 786.2 02/07/2010 JESS OPS ANALYST, MARIA DE JESUS S 788.1 Dysuria 02/07/2010 788.1 Dysuria 02/07/2010 JESS OPS ANALYST, MARIA DE JESUS S 788.1 Dysuria 02/07/2010 788.1 Dysuria 02/07/2010 JESS OPS ANALYST, MARIA DE JESUS S 788.1 Dysuria 02/07/2010 SULLIVAN OPS ANALYST, ROSALINO R 788.1 Dysuria 02/07/2010 JESS OPS ANALYST, MARIA DE JESUS S 788.1 Dysuria 02/07/2010 JESS OPS ANALYST, MARIA DE JESUS S 788.1 Dysuria 02/07/2010 JESS OPS ANALYST, MARIA DE JESUS S 788.1 Dysuria 02/07/2010 RUDY MORO[place], [place] 788.1 Dysuria 02/07/2010 MONA FOLEY DO 788.1 Dysuria 02/07/2010 JESS OPS ANALYST, MARIA DE JESUS S 788.1 Dysuria 02/07/2010 JESS OPS ANALYST, MARIA DE JESUS S 788.1 Dysuria 02/07/2010 JESS OPS ANALYST, MARIA DE JESUS S 788.1 Dysuria 02/07/2010 JESS OPS ANALYST, MARIA DE JESUS S 788.1 Dysuria 02/07/2010 JESS OPS ANALYST, MARIA DE JESUS S 788.1 Dysuria 02/07/2010 JESS OPS ANALYST, MARIA DE JESUS S 788.1 Dysuria 02/07/2010 MANNY ZAMUDIO, JUAN R A 788.1 Dysuria 02/07/2010 JESS OPS ANALYST, MARIA DE JESUS S 788.1 Dysuria 02/21/2010 JESS OPS ANALYST, MARIA DE JESUS S 346.90 Migraine Unspecified Without Intractable Migraine 02/21/2010 JESS OPS ANALYST, MARIA DE JESUS S 780.79 Fatigue 02/21/2010 346.90 Migraine Unspecified Without Intractable Migraine 02/21/2010 780.79 Fatigue 02/21/2010 JESS OPS ANALYST, MARIA DE JESUS S 346.90 Migraine Unspecified Without Intractable Migraine 02/21/2010 JESS OPS ANALYST, MARIA DE JESUS S 780.79 Fatigue 02/21/2010 346.90 Migraine Unspecified Without Intractable Migraine 02/21/2010 780.79 Fatigue 02/21/2010 JESS OPS ANALYST, MARIA DE JESUS S 346.90 Migraine Unspecified Without Intractable Migraine 02/21/2010 JESS OPS ANALYST, MARIA DE JESUS S 780.79 Fatigue 02/21/2010 SULLIVAN OPS ANALYST, ROSALINO R 346.90 Migraine Unspecified Without Intractable Migraine 02/21/2010 SULLIVAN OPS ANALYST, ROSALINO R 780.79 Fatigue 02/21/2010 JESS OPS ANALYST, MARIA DE JESUS S 346.90 Migraine Unspecified Without Intractable Migraine 02/21/2010 JESS OPS ANALYST, MARIA DE JESUS S 780.79 Fatigue 02/21/2010 JESS OPS ANALYST, MARIA DE JESUS S 346.90 Migraine Unspecified Without Intractable Migraine 02/21/2010 JESS OPS ANALYST, MARIA DE JESUS S 780.79 Fatigue 02/21/2010 JESS OPS ANALYST, MARIA DE JESUS S 346.90 Migraine Unspecified Without Intractable Migraine 02/21/2010 JESS OPS ANALYST, MARIA DE JESUS S 780.79 Fatigue 02/21/2010 MT GRANT MD 346.90 Migraine Unspecified Without Intractable Migraine 02/21/2010 MT GRANT MD 780.79 Fatigue 02/21/2010 FOLEY DO, MONA K 346.90 Migraine Unspecified Without Intractable Migraine 02/21/2010 FOLEY DO, MONA K 780.79 Fatigue 02/21/2010 JESS OPS ANALYST, MARIA DE JESUS S 346.90 Migraine Unspecified Without Intractable Migraine 02/21/2010 JESS OPS ANALYST, MARIA DE JESUS S 780.79 Fatigue 02/21/2010 JESS OPS ANALYST, MARIA DE JESUS S 346.90 Migraine Unspecified Without Intractable Migraine 02/21/2010 JESS OPS ANALYST, MARIA DE JESUS S 780.79 Fatigue 02/21/2010 JESS OPS ANALYST, MARIA DE JESUS S 346.90 Migraine Unspecified Without Intractable Migraine 02/21/2010 JESS OPS ANALYST, MARIA DE JESUS S 780.79 Fatigue 02/21/2010 JESS OPS ANALYST, MARIA DE JESUS S 346.90 Migraine Unspecified Without Intractable Migraine 02/21/2010 JESS OPS ANALYST, MARIA DE JESUS S 780.79 Fatigue 02/21/2010 JESS OPS ANALYST, MARIA DE JESUS S 346.90 Migraine Unspecified Without Intractable Migraine 02/21/2010 JESS OPS ANALYST, MARIA DE JESUS S 780.79 Fatigue 02/21/2010 JESS OPS ANALYST, MARIA DE JESUS S 346.90 Migraine Unspecified Without Intractable Migraine 02/21/2010 JESS OPS ANALYST, MARIA DE JESUS S 780.79 Fatigue 02/21/2010 MANNY ZAMUDIO, JUAN R Leonardo 346.90 Migraine Unspecified Without Intractable Migraine 02/21/2010 MANNY ZAMUDIO, JUAN R Leonardo 780.79 Fatigue 02/21/2010 JESS OPS ANALYST, MARIA DE JESUS S 346.90 Migraine Unspecified Without Intractable Migraine 02/21/2010 JESS OPS ANALYST, MARIA DE JESUS S 780.79 Fatigue 05/13/2010 [...] MARIA DE JESUS S 276.8 Hypokalemia 09/06/2010 EJSS RUIZ MARIA DE JESUS S 276.8 Hypokalemia 09/06/2010 JESS RUIZ MARIA DE JESUS S 276.8 Hypokalemia 09/06/2010 JESS RUIZ MARIA DE JESUS S 276.8 Hypokalemia 09/06/2010 JESS RUIZ MARIA DE JESUS S 276.8 Hypokalemia 09/06/2010 JESS RUIZ MARIA ED JESUS S 276.8 Hypokalemia 09/06/2010 MANNY ZAMUDIO, [...] JESUS S 309.81 AN PTSD 10/02/2010 LAURIE OPS ANALYST, ROSALINO R 300.02 AN GEN ANXIETY 10/02/2010 LAURIE OPS ANALYST, ROSALINO R 309.81 AN PTSD 10/02/2010 JLUIS [...] MT GRANT MD 309.81 AN PTSD 10/02/2010 FLOEY MONA TRUONG K 300.02 AN GEN ANXIETY [...] AN PANIC DIS W AGORA 11/08/2010 JESS OPS ANALYST, MARIA DE JESUS S 300.21 AN PANIC DIS W AGORA 11/12/2010 Ot 306.1 PSYCHOGENIC RESPIR DIS 11/12/2010 Ot 786.05 SHORTNESS OF BREATH 11/14/2010 Ot 300.00 ANXIETY STATE NOS 11/14/2010 Ot 788.0 RENAL COLIC 11/14/2010 Ot 789.09 ABDOMINAL PAIN, OTHER SPECIFIED SITE 11/21/2010 Ot 300.00 ANXIETY STATE NOS 11/21/2010 Ot 305.60 COCAINE ABUSE-UNSPEC 11/21/2010 Ot 599.72 MICROSCOPIC HEMATURIA 11/21/2010 Ot 788.1 DYSURIA 04/24/2011 JESS OPS ANALYST, MARIA DE JESUS S 338.29 Other Chronic Pain 04/24/2011 338.29 Other Chronic Pain 04/24/2011 JESS OPS ANALYST, MARIA DE JESUS S 338.29 Other Chronic Pain 04/24/2011 338.29 Other Chronic Pain 04/24/2011 JESS OPS ANALYST, MARIA DE JESUS S 338.29 Other Chronic Pain 04/24/2011 UNIQUE SULLIVAN APRNIA Arianna 338.29 Other Chronic Pain 04/24/2011 JESS OPS ANALYST, MARIA DE JESUS S 338.29 Other Chronic Pain 04/24/2011 JESS OPS ANALYST, MARIA DE JESUS S 338.29 Other Chronic Pain 04/24/2011 JESS OPS ANALYST, MARIA DE JESUS S 338.29 Other Chronic Pain 04/24/2011 RUDY M[place], [place] 338.29 Other Chronic Pain 04/24/2011 MONA FOLEY DO 338.29 Other Chronic Pain 04/24/2011 JESS OPS ANALYST, MARIA DE JESUS S 338.29 Other Chronic Pain 04/24/2011 JESS OPS ANALYST, MARIA DE JESUS S 338.29 Other Chronic Pain 04/24/2011 JESS OPS ANALYST, MARIA DE JESUS S 338.29 Other Chronic Pain 04/24/2011 JESS OPS ANALYST, MARIA DE JESUS S 338.29 Other Chronic Pain 04/24/2011 JESS OPS ANALYST, MARIA DE JESUS S 338.29 Other Chronic Pain 04/24/2011 JESS OPS ANALYST, MARIA DE JESUS S 338.29 Other Chronic Pain 04/24/2011 MANNY ZAMUDIO, JUAN R A 338.29 Other Chronic Pain 04/24/2011 JESS OPS ANALYST, MARIA DE JESUS S 338.29 Other Chronic Pain 05/13/2011 Ot 388.70 OTALGIA NOS 05/13/2011 Ot 462 ACUTE PHARYNGITIS 05/13/2011 Ot 729.1 MYALGIA AND MYOSITIS NOS 05/13/2011 Ot 780.60 FEVER, UNSPECIFIED 05/14/2011 Ot 462 ACUTE PHARYNGITIS 06/12/2011 JESS OPS ANALYST, MARIA DE JESUS S 354.0 Carpal Tunnel Syndrome 06/12/2011 354.0 Carpal Tunnel Syndrome 06/12/2011 JESS OPS ANALYST, MARIA DE JESUS S 354.0 Carpal Tunnel Syndrome 06/12/2011 354.0 Carpal Tunnel Syndrome 06/12/2011 JESS OPS ANALYST, MARIA DE JESUS S 354.0 Carpal Tunnel Syndrome 06/12/2011 LAURIE RUIZ, ROSALINO Keller 354.0 Carpal Tunnel Syndrome 06/12/2011 JESS OPS ANALYST, MARIA DE JESUS S 354.0 Carpal Tunnel Syndrome 06/12/2011 JESS OPS ANALYST, MARIA DE JESUS S 354.0 Carpal Tunnel Syndrome 06/12/2011 JESS OPS ANALYST, MARIA DE JESUS S 354.0 Carpal Tunnel Syndrome 06/12/2011 RUDY [place], [place] 354.0 Carpal Tunnel Syndrome 06/12/2011 MONA FOLEY DO 354.0 Carpal Tunnel Syndrome 06/12/2011 JESS OPS ANALYST, MARIA DE JESUS S 354.0 Carpal Tunnel Syndrome 06/12/2011 JESS OPS ANALYST, MARIA DE JESUS S 354.0 Carpal Tunnel Syndrome 06/12/2011 JESS OPS ANALYST, MARIA DE JESUS S 354.0 Carpal Tunnel Syndrome 06/12/2011 JESS OPS ANALYST, MARIA DE JESUS S 354.0 Carpal Tunnel Syndrome 06/12/2011 JESS OPS ANALYST, MARIA DE JESUS S 354.0 Carpal Tunnel Syndrome 06/12/2011 JESS OPS ANALYST, MARIA DE JESUS S 354.0 Carpal Tunnel Syndrome 06/12/2011 MANNY ZAMUDIO, JUAN R Leonardo 354.0 Carpal Tunnel Syndrome 06/12/2011 JESS OPS ANALYST, MARIA DE JESUS S 354.0 Carpal Tunnel Syndrome 09/10/2011 JESS OPS ANALYST, MARIA DE JESUS S 729.5 Pain In Limb 09/10/2011 JESS OPS ANALYST, MARIA DE JESUS S 782.0 Disturbance Of Skin Sensation 09/10/2011 729.5 Pain In Limb 09/10/2011 782.0 Disturbance Of Skin Sensation 09/10/2011 JESS OPS ANALYST, MARIA DE JESUS S 729.5 Pain In Limb 09/10/2011 JESS OPS ANALYST, MARIA DE JESUS S 782.0 Disturbance Of Skin Sensation 09/10/2011 729.5 Pain In Limb 09/10/2011 782.0 Disturbance Of Skin Sensation 09/10/2011 JESS OPS ANALYST, MARIA DE JESUS S 729.5 Pain In Limb 09/10/2011 JESS OPS ANALYST, MARIA DE JESUS S 782.0 Disturbance Of Skin Sensation 09/10/2011 SULLIVAN OPS ANALYST, ROSALINO R 729.5 Pain In Limb 09/10/2011 SULLIVAN OPS ANALYST, ROSALINO R 782.0 Disturbance Of Skin Sensation 09/10/2011 JESS OPS ANALYST, MARIA DE JESUS S 729.5 Pain In Limb 09/10/2011 JESS OPS ANALYST, MARIA DE JESUS S 782.0 Disturbance Of Skin Sensation 09/10/2011 JESS OPS ANALYST, MARIA DE JESUS S 729.5 Pain In Limb 09/10/2011 JESS OPS ANALYST, MARIA DE JESUS S 782.0 Disturbance Of Skin Sensation 09/10/2011 JESS OPS ANALYST, MARIA DE JESUS S 729.5 Pain In Limb 09/10/2011 JESS OPS ANALYST, MARIA DE JESUS S 782.0 Disturbance Of Skin Sensation 09/10/2011 MT GRANT MD 729.5 Pain In Limb 09/10/2011 MT GRANT MD 782.0 Disturbance Of Skin Sensation 09/10/2011 FOLEY DO, MONA K 729.5 Pain In Limb 09/10/2011 FOLEY DO, MONA K 782.0 Disturbance Of Skin Sensation 09/10/2011 JESS OPS ANALYST, MARIA DE JESUS S 729.5 Pain In Limb 09/10/2011 JESS OPS ANALYST, MARIA DE JESUS S 782.0 Disturbance Of Skin Sensation 09/10/2011 JESS OPS ANALYST, MARIA DE JESUS S 729.5 Pain In Limb 09/10/2011 JESS OPS ANALYST, MARIA DE JESUS S 782.0 Disturbance Of Skin Sensation 09/10/2011 JESS OPS ANALYST, MARIA DE JESUS S 729.5 Pain In Limb 09/10/2011 JESS OPS ANALYST, MARIA DE JESUS S 782.0 Disturbance Of Skin Sensation 09/10/2011 JESS OPS ANALYST, MARIA DE JESUS S 729.5 Pain In Limb 09/10/2011 JESS OPS ANALYST, MARIA DE JESUS S 782.0 Disturbance Of Skin Sensation 09/10/2011 JESS OPS ANALYST, MARIA DE JESUS S 729.5 Pain In Limb 09/10/2011 JESS OPS ANALYST, MARIA DE JESUS S 782.0 Disturbance Of Skin Sensation 09/10/2011 JESS OPS ANALYST, MARIA DE JESUS S 729.5 Pain In Limb 09/10/2011 JESS OPS ANALYST, MARIA DE JESUS S 782.0 Disturbance Of Skin Sensation 09/10/2011 MANNY ZAMUDIO, JUAN R Leonardo 729.5 Pain In Limb 09/10/2011 MANNY ZAMUDIO, JUAN R Leonardo 782.0 Disturbance Of Skin Sensation 09/10/2011 JESS OPS ANALYST, MARIA DE JESUS S 729.5 Pain In Limb 09/10/2011 JESS OPS ANALYST, MARIA DE JESUS S 782.0 Disturbance Of [...] S 307.81 Headache - Tension 01/31/2012 JESS OPS ANALYST, MARIA DE JESUS S 729.82 Cramp Of Limb 01/31/2012 JLUIS MERCADO APRNNDA S 305.1 Smoking Cigarettes 01/31/2012 JLUIS MERCADO APRNNDA S 307.81 Headache - Tension 01/31/2012 JESS OPS ANALYSTJLUIS MiguelNDA S 729.82 Cramp Of Limb 01/31/2012 [...] 300.01 PANIC DISORDER WITHOUT AGORAPHOBIA 02/04/2012 JESS OPS ANALYSTJLUIS MiguelNDA S 300.01 PANIC DISORDER WITHOUT AGORAPHOBIA 02/07/2012 BRIONNA MERCADO APRNA S 784.0 Headache 02/07/2012 784.0 Headache 02/07/2012 JESS RUIZ MARIA DE JESUS S 784.0 Headache 02/07/2012 784.0 Headache 02/07/2012 BRIONNA MERCADO APRNA S 784.0 Headache 02/07/2012 ROSALINO SULLIVAN APRN R 784.0 Headache 02/07/2012 JESS OPS ANALYST, MARIA DE JESUS S 784.0 Headache 02/07/2012 JESS OPS ANALYST, MARIA DE JESUS S 784.0 Headache 02/07/2012 JESS OPS ANALYST, MARIA DE JESUS S 784.0 Headache 02/07/2012 RUDY M[place]OCHO, [place] 784.0 Headache 02/07/2012 FOLEY DO, MONA K 784.0 Headache 02/07/2012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 mean corpuscular volume 99 [foz_us] 80-99 Automated erythrocyte mean corpuscular hemoglobin (mass per erythrocyte) 34 pg 25-34 Automated erythrocyte mean corpuscular hemoglobin concentration measurement ( mass/volume) 34 g/dL 32-36 Automated erythrocyte distribution width ratio 12.9 % 10.0-14.5 Automated blood platelet count (count/volume) 316 10*3/uL 130-400 Automated blood platelet mean volume measurement 8.8 [foz_us ] 7.4-10.4 Automated blood neutrophils/100 leukocytes 66 % 42-75 Automated blood lymphocytes/100 leukocytes 25 % 12-44 Blood monocytes/100 leukocytes 8 % 0-12 Automated blood eosinophils/100 leukocytes 1 % 0-10 Automated blood basophils/100 leukocytes 1 % 0-10 Blood neutrophils automated count (number/volume) 5.4 10*3 1.8-7.8 Blood lymphocytes automated count (number/volume) 2.0 10*3 1.0-4.0 Blood monocytes automated count (number/volume) 0.6 10*3 0.0-1.0 Automated eosinophil count 0.1 10*3/uL 0.0-0.3 Automated blood basophil count (count/volume) 0.0 10*3/uL 0.0-0.1 Comprehensive metabolic panel - 12/17/16 13:30 Serum or plasma sodium measurement (moles/volume) 142 mmol/ L 135-145 Serum or plasma potassium measurement (moles/volume) 4.0 mmol/L 3.6-5.0 Serum or plasma chloride measurement (moles/volume) 111 mmol /L 98-107 Carbon dioxide 24 mmol/L 21-32 Serum or plasma anion gap determination (moles/volume) 7 mmol/L 5-14 Serum or plasma urea nitrogen measurement (mass/volume) 8 mg /dL 7-18 Serum or plasma creatinine measurement (mass/volume) 0.75 mg /dL 0.60-1.30 Serum or plasma urea nitrogen/creatinine mass ratio 11 0-20 Serum or plasma creatinine measurement with calculation of estimated glomerular filtration rate > NRG Serum or plasma glucose measurement (mass/volume) 85 mg/dL 70-105 Serum or plasma calcium measurement (mass/volume) 8.9 mg/dL 8.5-10.1 Serum or plasma total bilirubin measurement (mass/volume) 0.7 mg/dL 0.1-1.0 Serum or plasma alkaline phosphatase measurement (enzymatic activity/volume) 54 U/L 40-136 Serum or plasma aspartate aminotransferase measurement (enzymatic activity/ volume) 16 U/L 5-34 Serum or plasma alanine aminotransferase measurement (enzymatic activity/volume ) 17 U/L 0-55 Serum or plasma protein measurement (mass/volume) 6.8 g/dL 6.4-8.2 Serum or plasma albumin measurement (mass/volume) 4.0 g/dL 3.2-4.5 Encounters ACCT No. Visit Date/Time Discharge Status Pt. Type Provider Facility Loc./Unit Complaint [id number] 06/21/2014 11:13:00 06/21/2014 23: 59:59 CLS Outpatient JESS OPS ANALYST MARIA DE JESUS S [id number] 06/16/2014 13:47:00 06/16/2014 23: 59:59 CLS Outpatient JUAN R BRYANT PHD [id number] 05/24/2014 14:43:00 05/24/2014 23: 59:59 CLS Outpatient JESS OPS ANALYST, MARIA DE JESUS S [id number] 05/13/2014 14:02:00 05/13/2014 23: 59:59 CLS Outpatient JESS OPS ANALYST, MARIA DE JESUS S [id number] 05/06/2014 17:56:00 05/06/2014 23: 59:59 CLS Outpatient JESS OPS ANALYST, MARIA DE JESUS S [id number] 04/21/2014 08:20:00 04/21/2014 23: 59:59 CLS Outpatient JESS OPS ANALYST MARIA DE JESUS S [id number] 01/29/2014 08:19:00 01/29/2014 23: 59:59 CLS Outpatient JESS OPS ANALYST, MARIA DE JESUS S [id number] 08/04/2013 15:52:00 08/04/2013 23: 59:59 CLS Outpatient JESS OPS ANALYST, MARIA DE JESUS S [id number] 05/21/2013 17:07:00 05/21/2013 23: 59:59 CLS Outpatient MONA FOLEY DO [id number] 05/14/2013 08:19:00 05/14/2013 23: 59:59 CLS Outpatient MT GRANT MD [id number] 05/07/2013 08:20:00 05/07/2013 23: 59:59 CLS Outpatient JESS OPS ANALYST, MARIA DE JESUS S [id number] 04/28/2013 16:33:00 04/28/2013 23: 59:59 CLS Outpatient JESSMARIA DE JESUS STARKEY APRN [id number] 04/23/2013 16:35:00 04/23/2013 23: 59:59 CLS Outpatient MARIA DE JESUS MERCADO APRN [id number] 04/17/2013 13:16:00 04/17/2013 23: 59:59 CLS Outpatient LAURIE SANTOSNUNIQUEIA Arianna [id number] 04/13/2013 16:03:00 04/13/2013 23: 59:59 CLS Outpatient MARIA DE JESUS MERCADO APRN [id number] 08/04/2012 12:18:00 08/04/2012 23: 59:59 CLS Outpatient MARIA DE JESUS MERCADO APRN [id number] 07/17/2012 17:37:00 07/17/2012 23: 59:59 CLS Outpatient [id number] 03/13/2012 14:39:00 03/13/2012 23: 59:59 CLS Outpatient MARIA DE JESUS MERCADO APRN [id number] 02/23/2013 15:58:00 Document Registration
== END 2016-12-17 14:38 | disposition home or self-care (01) ==
LOC: EDUNIT# 11:42 → ER 11:44
DX: T67.5XXA Heat exhaustion, unspecified, initial encounter (principal); G43.909 Migraine, unspecified, not intractable, without status migrainosus; J43.9 Emphysema, unspecified; I10 Essential (primary) hypertension; E11.9 Type 2 diabetes mellitus without complications; F41.9 Anxiety disorder, unspecified; F32.9 Major depressive disorder, single episode, unspecified; F17.210 Nicotine dependence, cigarettes, uncomplicated; X30.XXXA Exposure to excessive natural heat, initial encounter
CPT/HCPCS: 36415; 80053; 85025

== ENCOUNTER 2017-01-28 12:57 | Emergency (ER) | payer MEDICAID ==
[~2017-01-28] VITALS: Ht 162.6 cm; Wt 54.9 kg
[2017-01-28] MEDS ORDERED: NS IV 1000 ML 1,000 ML IV ONE (14:54)
[2017-01-28 15:07] LABS: BASOPHILS % (AUTO) 0 % (0-10); EOSINOPHILS # (AUTO) 0.1 10^3/uL (0.0-0.3); EOSINOPHILS % (AUTO) 2 % (0-10); LYMPHOCYTES # (AUTO) 2.2 X 10^3 (1.0-4.0); LYMPHOCYTES % (AUTO) 25 % (12-44); MEAN CORPUSCULAR HEMOGLOBIN 34 PG (25-34); MEAN CORPUSCULAR HGB CONC 35 G/DL (32-36); MEAN CORPUSCULAR VOLUME 96 FL (80-99); MEAN PLATELET VOLUME 9.6 FL (7.4-10.4); MONOCYTES # (AUTO) 0.7 X 10^3 (0.0-1.0); MONOCYTES % (AUTO) 8 % (0-12); NEUTROPHILS # (AUTO) 5.9 X 10^3 (1.8-7.8); NEUTROPHILS % (AUTO) 66 % (42-75); PLATELET COUNT 310 10^3/uL (130-400); RED BLOOD COUNT 4.09 10^6/uL (4.35-5.85); RED CELL DISTRIBUTION WIDTH 11.7 % (10.0-14.5); WHITE BLOOD COUNT 8.9 10^3/uL (4.3-11.0)
[2017-01-28 15:18] LABS: ALANINE AMINOTRANSFERASE 14 U/L (0-55); ALBUMIN 4.1 GM/DL (3.2-4.5); AMYLASE 34 U/L (25-125); ANION GAP 10 MMOL/L (5-14); ASPARTATE AMINO TRANSFERASE 16 U/L (5-34); BILIRUBIN,TOTAL 0.5 MG/DL (0.1-1.0); BLOOD UREA NITROGEN 11 MG/DL (7-18); BUN/CREATININE RATIO 15; CARBON DIOXIDE 17 MMOL/L (21-32); CHLORIDE 111 MMOL/L (98-107); CREATININE SERUM 0.74 MG/DL (0.60-1.30); GFR ESTIMATED > 60; GLUCOSE 89 MG/DL (70-105); LIPASE 5 U/L (8-78); POTASSIUM 4.2 MMOL/L (3.6-5.0); SODIUM 138 MMOL/L (135-145); TOTAL PROTEIN 7.2 GM/DL (6.4-8.2)
[2017-01-28] MEDS ORDERED: KETOROLAC 30 MG/ML VIAL IVP STA (15:41)
[2017-01-28] MEDS ORDERED: ONDANSETRON 4 MG/2 ML (SDV) Z0FRAN IVP ONE (15:45)
--- NOTE | 2017-01-28 16:23 | Diagnostic Imaging Report ---
EXAMINATION: Upright and supine views of the abdomen. INDICATION: Vomiting and diarrhea. FINDINGS: There is no pneumoperitoneum or evidence of bowel obstruction. Nonspecific minimal prominence of colonic and some small bowel gas is seen. No soft tissue mass is identified. IMPRESSION: Nonspecific minimal prominence of the bowel gas is seen. Dictated by: Dictated on workstation # [id number]
--- NOTE | 2017-01-28 16:34 | ED GI ---
General Chief Complaint: Abdominal/GI Problems Stated Complaint: ABD PAIN Nursing Triage Note: Pt c/o abd pain for past 3 days. Pt also reports vomiting after eating and diarrhea. Pt reports she has been seeing [facility] for gallbladder issues. Pt also reports fever off and on for 3 days. Sepsis Screen: No Definite Risk Source of Information: Patient Exam Limitations: No Limitations History of Present Illness Time Seen By Provider: 16:34 Initial Comments 36-year-old female patient presents to the emergency department complaints of left-sided abdominal pain for 3 days. Patient has had numerous visits to the ED for similar complaints. Patient reports nausea, vomiting, diarrhea. Does report intermittent low-grade fevers for 3 days and states several family members have had similar symptoms at home. Timing/Duration: 2-3 Days, Constant Severity/Quality: Cramping Location: LUQ Radiation: No Radiation Activities at Onset: None Modifying Factors: Worsens With Eating 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, (Reported) Escitalopram Oxalate 20 Mg Tablet, 40 MG PO DAILY, (Reported) TAKES 2 (20MG) TABLETS Metoprolol Succinate 50 Mg Tab.er.24h, 50 MG PO DAILY, #30 (Reported) Ondansetron 8 Mg Tab.rapdis, 8 MG PO Q6H PRN for NAUSEA/VOMITING-1ST LINE, #10 Ref 0 Prescribed by: ROXANNE WADE on 01/28/17 [id number] Review of Systems Constitutional: chills, No diaphoresis, No dizziness, fever, malaise EENTM: No Symptoms Reported Respiratory: Denies Cough, Denies Shortness of Air Cardiovascular: Denies Chest Pain, Denies Lightheadedness, Denies Palpitations , Denies Syncope Gastrointestinal: See HPI, Denies Abdomen Distended, Abdominal Pain, Denies Blood Streaked Stools, Denies Constipated, Diarrhea, Nausea, Poor Appetite, Poor Fluid Intake, Denies Rectal Bleeding, Vomiting Genitourinary: Denies Burning, Denies Frequency, Denies Flank Pain, Denies Hematuria, Denies Pain Musculoskeletal: no symptoms reported Skin: no symptoms reported Psychiatric/Neurological: No Symptoms Reported All Other Systems Reviewed Negative Unless Noted: Yes (Negative excepted noted.) Past Zysmhty-Sulgjv-Djjewt Hx Patient Social History Type Used: Cigarettes 2nd Hand Smoke Exposure: Yes Recent Foreign Travel: No Contact w/Someone Who Travel: No Recent Infectious Disease Expo: No Recent Hopitalizations: No Immunizations Up To Date Tetanus Booster (TDap): Less than 5yrs PED Vaccines UTD: Yes Date of Pneumonia Vaccine: Apr 09, 2013 Date of Influenza Vaccine: Apr 09, 2016 Seasonal Allergies Seasonal Allergies: No Surgeries HX Surgeries: Yes Surgeries: Appendectomy, Orthopedic Respiratory Hx Respiratory Disorders: Yes Respiratory Disorders: Asthma, Emphysema Cardiovascular Hx Cardiac Disorders: Yes (hx angioedema) Cardiac Disorders: Heart Murmur, Hypertension Neurological Hx Neurological Disorders: No Reproductive System Hx Reproductive Disorders: No Sexually Transmitted Disease: No HIV/AIDS: No Female Reproductive Disorders: Denies Genitourinary Hx Genitourinary Disorders: Yes (CHRONIC HEMATURIA) Genitourinary Disorders: Kidney Infection, Bladder Infection, Kidney Stones Gastrointestinal Hx Gastrointestinal Disorders: No Musculoskeletal Hx Musculoskeletal Disorders: Yes Musculoskeletal Disorders: Chronic Back Pain Endocrine Hx Endocrine Disorders: Yes Endocrine Disorders: Diabetes, Non-Insulin dep HEENT HX ENT Disorders: No Loss of Vision: Denies Hearing Impairment: Denies Cancer Hx Cancer: No Psychosocial Hx Psychiatric Problems: Yes Behavioral Health Disorders: Anxiety, Depression Integumentary HX Skin/Integumentary Disorder: Yes (hives r/t allergic reaction ) Skin/Integumentary Disorders: Recent Skin Changes Blood Transfusions Hx Blood Disorders: No Adverse Reaction to a Blood Tr: No (never had a transfusion) Reviewed Nursing Assessment Reviewed/Agree w Nursing PMH: Yes Family Medical History Significant Family History: No Pertinent Family Hx, Heart Disease, Cancer, Renal Disease Family Medial History: Cardiovascular disease 19 FATHER Hypertension 19 FATHER Myocardial infarction 19 FATHER No Family History of: Diabetes mellitus Respiratory disorder Seizure disorder Physical Exam Vital Signs VS - Last 72 Hours, by Label 01/28/17 01/28/17 13:39 17:01 Temp 97.8 97.8 Pulse 74 76 Resp 18 18 B/P (MAP) 118/83 Pulse Ox 97 98 O2 Delivery Room Air Capillary Refill : Less Than 3 Seconds General Appearance: WD/WN, no apparent distress Respiratory: lungs clear, normal breath sounds, no respiratory distress Cardiovascular: normal peripheral pulses, regular rate, rhythm, no edema, no murmur Gastrointestinal: normal bowel sounds, soft, no organomegaly, No distended, No guarding, No rebound, tenderness (epigastric and LUQ tenderness), No mass Extremities: no pedal edema, normal capillary refill Back: normal inspection, no CVA tenderness Neurologic/Psychiatric: alert, normal mood/affect, oriented x 3 Skin: normal color, warm/dry Progress/Results/Core Measures Results/Orders Lab Results Laboratory Tests Test 01/28/17 14:21 01/28/17 15:12 Range/Units White Blood Count 8.9 4.3-11.0 10^3/uL Red Blood Count 4.09 L 4.35-5.85 10^6/uL Hemoglobin 13.8 11.5-16.0 G/DL Hematocrit 39 35-52 % Mean Corpuscular Volume 96 80-99 FL Mean Corpuscular Hemoglobin 34 25-34 PG Mean Corpuscular Hemoglobin Concent 35 32-36 G/DL Red Cell Distribution Width 11.7 10.0-14.5 % Platelet Count 310 130-400 10^3/uL Mean Platelet Volume 9.6 7.4-10.4 FL Neutrophils (%) (Auto) 66 42-75 % Lymphocytes (%) (Auto) 25 12-44 % Monocytes (%) (Auto) 8 0-12 % Eosinophils (%) (Auto) 2 0-10 % Basophils (%) (Auto) 0 0-10 % Neutrophils # (Auto) 5.9 1.8-7.8 X 10^3 Lymphocytes # (Auto) 2.2 1.0-4.0 X 10^3 Monocytes # (Auto) 0.7 0.0-1.0 X 10^3 Eosinophils # (Auto) 0.1 0.0-0.3 10^3/uL Basophils # (Auto) 0.0 0.0-0.1 10^3/uL Sodium Level 138 135-145 MMOL/L Potassium Level 4.2 3.6-5.0 MMOL/L Chloride Level 111 H 98-107 MMOL/L Carbon Dioxide Level 17 L 21-32 MMOL/L Anion Gap 10 5-14 MMOL/L Blood Urea Nitrogen 11 7-18 MG/DL Creatinine 0.74 0.60-1.30 MG/DL Estimat Glomerular Filtration Rate > 60 BUN/Creatinine Ratio 15 Glucose Level 89 70-105 MG/DL Calcium Level 9.0 8.5-10.1 MG/DL Total Bilirubin 0.5 0.1-1.0 MG/DL Aspartate Amino Transf (AST/SGOT) 16 5-34 U/L Alanine Aminotransferase (ALT/SGPT) 14 0-55 U/L Alkaline Phosphatase 51 40-136 U/L Total Protein 7.2 6.4-8.2 GM/DL Albumin 4.1 3.2-4.5 GM/DL Amylase Level 34 25-125 U/L Lipase 5 L 8-78 U/L Urine Test NEGATIVE NEGATIVE My Orders Orders - ROXANNE WADE Abdomen, Flat & Upright/Decub (01/28/17 15:41) Ondansetron Injection (Zofran Injectio (01/28/17 15:45) Ketorolac Injection (Toradol Injection) (01/28/17 15:41) Hcg,Qualitative Urine (01/28/17 15:51) Medications Given in ED Current Medications Medications Dose Ordered Sig/Wallace Route Start Time Stop Time Status Last Admin Dose Admin Ondansetron HCl 4 mg ONCE ONCE IVP 01/28/17 15:45 01/28/17 15:46 DC 01/28/17 16:06 4 MG Sodium Chloride 1,000 ml @ 0 mls/hr Q0M ONCE IV 01/28/17 14:54 01/28/17 14:55 DC 01/28/17 15:26 0 MLS/HR Vital Signs/I&O Vital Sign - Last 12Hours 01/28/17 01/28/17 13:39 17:01 Temp 97.8 97.8 Pulse 74 76 Resp 18 18 B/P (MAP) 118/83 Pulse Ox 97 98 O2 Delivery Room Air Intake and Output 01/29/17 00:00 Intake Total 1000 ml Balance 1000 ml Blood Pressure Mean: 95 Diagnostic Imaging Diagonstic Imaging: Xray Plain Films/CT/US/NM/MRI: abdomen Comments FINDINGS: There is no pneumoperitoneum or evidence of bowel obstruction. Nonspecific minimal prominence of colonic and some small bowel gas is seen. No soft tissue mass is identified. IMPRESSION: Nonspecific minimal prominence of the bowel gas is seen. Dictated by: Dictated on workstation # [id number] Reviewed: Reviewed by Me (radiology report reviewed by me) Departure Communication Progress Notes Patient reports improvement in symptoms with medications given in the emergency department. All laboratory findings and diagnostic study findings were discussed with the patient. Plan for discharge to home. Impression Impression: Primary Impression: Abdominal pain Qualified Codes: R10.12 - Left upper quadrant pain Additional Impression: Nausea, vomiting and diarrhea Disposition: HOME, SELF-CARE Condition: Improved Departure-Patient Inst. Decision time for Depature: 16:41 Referrals: MARIA DE JESUS MERCADO (PCP) Primary Care Physician [facility] (Family) Primary Care Physician Patient Instructions: Acute Abdomen (Belly Pain), Adult (DC) Add. Discharge Instructions: All discharge instructions reviewed with patient and/or family. Voiced understanding. Medications as directed. Continue usual home medications. Clear liquid diet until symptoms improve, then increase diet slowly to land, low -fat diet. Follow-up with your family practitioner for recheck as an outpatient. Return to the emergency department for worsened symptoms or any other concerns. Scripts Ondansetron (Ondansetron Odt) 8 Mg Tab.rapdis 8 MG PO Q6H Y for NAUSEA/VOMITING-1ST LINE, #10 TAB 0 Refills Prov: ROXANNE WADE 01/28/17 ROXANNE WADE Jan 28, 2017 16:34
[2017-01-28] MEDS ORDERED: ONDA8TAB13 PO (16:44)
[2017-01-28 17:01] VITALS: BP 110/99
== END 2017-01-28 17:01 | disposition home or self-care (01) ==
LOC: EDUNIT# 12:57 → ER 12:59
DX: R10.12 Left upper quadrant pain (principal); R11.2 Nausea with vomiting, unspecified; R19.7 Diarrhea, unspecified; F41.9 Anxiety disorder, unspecified; F32.9 Major depressive disorder, single episode, unspecified; E11.9 Type 2 diabetes mellitus without complications; I10 Essential (primary) hypertension; J43.9 Emphysema, unspecified; J45.909 Unspecified asthma, uncomplicated; Z86.79 Personal history of other diseases of the circulatory system; Z77.22 Contact with and (suspected) exposure to environmental tobacco smoke (acute) (chronic); Z98.890 Other specified postprocedural states; Z90.49 Acquired absence of other specified parts of digestive tract; Z87.442 Personal history of urinary calculi
CPT/HCPCS: 36415; 74020; 80053; 82150; 83690; 84703; 85025; 96361; 96374; 96375

== ENCOUNTER 2017-08-02 23:46 | Emergency (ER) | payer MEDICAID ==
[~2017-08-02] VITALS: Ht 162.6 cm; Wt 54.9 kg
[~2017-08-02 23:46] MED LIST changes: +HYDR-34 PO; -HYDR-3816 PO
[2017-08-03] MEDS ORDERED: fentaNYL INJECTION 100 MCG/2 ML AMP IM ONE (00:30)
[2017-08-03] MEDS ORDERED: ONDANSETRON 4 MG (ZOFRAN) ORAL DISSOLVE TAB PO ONE (00:30)
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
[2017-08-03 01:42] LABS: BASOPHILS % (AUTO) 0 % (0-10); EOSINOPHILS # (AUTO) 0.3 10^3/uL (0.0-0.3); EOSINOPHILS % (AUTO) 3 % (0-10); HEMATOCRIT 36 % (35-52); HEMOGLOBIN 12.7 G/DL (11.5-16.0); LYMPHOCYTES # (AUTO) 2.9 X 10^3 (1.0-4.0); LYMPHOCYTES % (AUTO) 23 % (12-44); MEAN CORPUSCULAR HEMOGLOBIN 34 PG (25-34); MEAN CORPUSCULAR HGB CONC 36 G/DL (32-36); MEAN CORPUSCULAR VOLUME 95 FL (80-99); MONOCYTES # (AUTO) 0.9 X 10^3 (0.0-1.0); MONOCYTES % (AUTO) 7 % (0-12); NEUTROPHILS # (AUTO) 8.4 X 10^3 (1.8-7.8); NEUTROPHILS % (AUTO) 67 % (42-75); PLATELET COUNT 341 10^3/uL (130-400); RED BLOOD COUNT 3.77 10^6/uL (4.35-5.85); RED CELL DISTRIBUTION WIDTH 11.6 % (10.0-14.5); WHITE BLOOD COUNT 12.4 10^3/uL (4.3-11.0)
[2017-08-03 02:00] LABS: ALANINE AMINOTRANSFERASE 11 U/L (0-55); ALBUMIN 3.8 GM/DL (3.2-4.5); ALKALINE PHOSPHATASE 42 U/L (40-136); BILIRUBIN,TOTAL 0.4 MG/DL (0.1-1.0); BUN/CREATININE RATIO 15; CALCIUM 8.6 MG/DL (8.5-10.1); CARBON DIOXIDE 18 MMOL/L (21-32); CHLORIDE 107 MMOL/L (98-107); CREATININE SERUM 0.74 MG/DL (0.60-1.30); GFR ESTIMATED > 60; GLUCOSE 98 MG/DL (70-105); POTASSIUM 3.7 MMOL/L (3.6-5.0); SODIUM 138 MMOL/L (135-145); TOTAL PROTEIN 6.7 GM/DL (6.4-8.2)
[2017-08-03] MEDS ORDERED: IBUPROFEN 800 MG (MOTRIN) TAB PO ONE (02:00)
[2017-08-03 02:15] LABS: BILIRUBIN,URINE NEGATIVE (NEGATIVE); COLOR,URINE YELLOW; GLUCOSE, URINE (UA) NEGATIVE (NEGATIVE); KETONES,URINE 1+ (NEGATIVE); LEUKOCYTE ESTERASE ,URINE 1+ (NEGATIVE); NITRITE,URINE NEGATIVE (NEGATIVE); PH,URINE 6 (5-9); PROTEIN,URINE 1+ (NEGATIVE); UROBILINOGEN,URINE 1 MG/DL (NORMAL)
[2017-08-03 02:24] LABS: CLARITY,URINE SLIGHTLY CLOUDY
[2017-08-03 02:25] LABS: BACTERIA,URINE MODERATE /HPF; WBC,URINE 0-2 /HPF
[2017-08-03] MEDS ORDERED: ACHD5005 PO (02:36)
[2017-08-03] MEDS ORDERED: ONDA4TAB8 PO (02:36)
[2017-08-03 02:44] VITALS: BP 125/79
[2017-08-03] MEDS ORDERED: HYDROcodone/APAP 5 MG/325 MG (LORTAB) TAB PO ONE (02:45)
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
== END 2017-08-03 02:44 | disposition home or self-care (01) ==
LOC: EDUNIT# 23:46 → ER 23:56
DX: M54.9 Dorsalgia, unspecified (principal); R31.9 Hematuria, unspecified; F41.9 Anxiety disorder, unspecified; F32.9 Major depressive disorder, single episode, unspecified; E11.9 Type 2 diabetes mellitus without complications; I10 Essential (primary) hypertension; J43.9 Emphysema, unspecified; F17.210 Nicotine dependence, cigarettes, uncomplicated; Z90.49 Acquired absence of other specified parts of digestive tract; Z87.442 Personal history of urinary calculi; Z88.2 Allergy status to sulfonamides; Z88.0 Allergy status to penicillin; Z88.1 Allergy status to other antibiotic agents; Y04.8XXA Assault by other bodily force, initial encounter
CPT/HCPCS: 36415; 70450; 70486; 71111; 72125; 80053; 80320; 81000; 84703; 85025; 87088; 96372; 99284

== ENCOUNTER 2017-10-07 21:16 | Emergency (ER) | payer MEDICAID ==
[~2017-10-07] VITALS: Ht 162.6 cm; Wt 54.9 kg
[~2017-10-07 21:16] MED LIST changes: +ACHD5005 PO; +ONDA4TAB8 PO
--- OUTSIDE RECORDS SUMMARY | 2017-10-07 21:24 | XMS REPORT | Clinical Summary ---
Author Author [facility] Organization [facility] Address Unknown Phone Unavailable Care Team Providers Care Paraprofessional Aide Name Role Phone Dung Frances DO Unavailable Delaney Min DO Unavailable Tammy Grajeda APRN PCP Source Comments Some departments are not documenting in the electronic medical record. If you do not see the information that you expected, contact Release of Information in the Health Information Management department at [phone] for further assistance in locating additional records.[facility] Allergies Active Allergy Reactions Severity Noted Date Comments Sulfamethoxazole-Trimetho ANAPHYLAXIS 05/18/2013 prim Moxifloxacin UNKNOWN 05/18/2013 Penicillins UNKNOWN 05/18/2013 Sulfa (Sulfonamide UNKNOWN 05/18/2013 Antibiotics) Current Medications Prescription Sig. Disp. Refills [...] regimen without incident. 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 Pulse 73 05/25/2013 11:03 AM OFFICE MACHINE TECHNICIAN Temperature 36.1 C (97 F) 05/25/2013 11:03 AM OFFICE MACHINE TECHNICIAN Respiratory Rate 16 05/25/2013 11:03 AM OFFICE MACHINE TECHNICIAN Oxygen Saturation 97% 05/25/2013 11:03 AM OFFICE MACHINE TECHNICIAN Inhaled Oxygen - - Concentration Weight 59.4 kg (131 lb) 05/25/2013 11:03 AM OFFICE MACHINE TECHNICIAN Height 158.4 cm (5' 2.36") 05/25/2013 11:03 AM OFFICE MACHINE TECHNICIAN Body Mass Index 23.68 05/25/2013 11:03 AM OFFICE MACHINE TECHNICIAN Plan of Treatment Health Maintenance Due Date Last Done Comments PHYSICAL (COMPREHENSIVE) 11/19/1986 EXAM PERTUSSIS VACCINE 11/19/1990 TETANUS VACCINE 11/19/1996 CERVICAL CANCER SCREENING 11/19/2009 INFLUENZA VACCINE 03/31/2018 HIV SCREENING Completed 05/25/2013 Results Not on filefrom Last 3 Months
--- OUTSIDE RECORDS SUMMARY | 2017-10-07 21:25 | XMS REPORT ---
Author Author MARIA DE JESUS MERCADO Organization [facility] Address [address] [place] [address] Care Team Providers Care Call Center Specialist Name Role Phone MARIA DE JESUS MERCADO Unavailable PROBLEMS Type Condition ICD9-CM Code [id number] Code Onset Dates Condition Status SNOMED Code Problem Gastroesophageal reflux disease without esophagitis K21.9 Active 153413888 Problem Acute pain of left shoulder M25.512 Active 88260482 Problem Seasonal allergic rhinitis due to pollen J30.1 Active 86245305 Problem Forgetfulness R68.89 Active 60727448 Problem Headache R51 Active 08918613 Problem Anxiety F41.9 Active 33525527 Problem Back pain with right-sided radiculopathy M54.10 Active 440983543 Problem Lumbago with sciatica, right side M54.41 Active 14208761 Problem Lumbago with sciatica, left side M54.42 Active 08836639 Problem Other chronic pain G89.29 Active 39688360 Problem Mild persistent asthma with acute exacerbation J45.31 Active 987674371008590 Problem Migraine without aura and without status migrainosus, not intractable G43.009 Active 590578150 Problem Intractable migraine with aura with status migrainosus G43.111 Active 344576398 ALLERGIES Unknown Allergies SOCIAL HISTORY No smoking Hx information available PLAN OF CARE VITAL SIGNS MEDICATIONS Medication Instructions Dosage Frequency Start Date End Date Duration Status Diflucan 150 MG Orally one time. May repeat in 3 days if symptoms persist. 1 tablet Aug, 4 days Active RESULTS No Results PROCEDURES No Known procedures IMMUNIZATIONS No Known Immunizations
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
--- OUTSIDE RECORDS SUMMARY | 2017-10-07 21:25 | XMS REPORT ---
Author Author MARIA DE JESUS MERCADO [facility] Address [address] [place] [address] Care Team Providers Care Hat Measurer Name Role Phone MARIA DE JESUS MERCADO Unavailable PROBLEMS Type Condition ICD9-CM Code [id number] Code Onset Dates Condition Status SNOMED Code Problem Gastroesophageal reflux disease without esophagitis K21.9 Active 946587241 Problem Acute pain of left shoulder M25.512 Active 41800764 Problem Seasonal allergic rhinitis due to pollen J30.1 Active 73924388 Problem Forgetfulness R68.89 Active 99975431 Problem Headache R51 Active 06505734 Problem Anxiety F41.9 Active 88445799 Problem Back pain with right-sided radiculopathy M54.10 Active 172110715 Problem Lumbago with sciatica, right side M54.41 Active 67349821 Problem Lumbago with sciatica, left side M54.42 Active 64714091 Problem Other chronic pain G89.29 Active 78547411 Problem Mild persistent asthma with acute exacerbation J45.31 Active 980068346461790 Problem Migraine without aura and without status migrainosus, not intractable G43.009 Active 280005804 Problem Intractable migraine with aura with status migrainosus G43.111 Active 342594982 ALLERGIES Unknown Allergies SOCIAL HISTORY No smoking Hx information available PLAN OF CARE VITAL SIGNS MEDICATIONS Unknown Medications RESULTS No Results PROCEDURES No Known procedures IMMUNIZATIONS No Known Immunizations
--- OUTSIDE RECORDS SUMMARY | 2017-10-07 21:25 | XMS REPORT ---
Author Author MARIA DE JESUS MERCADO [facility] Address [address] [place] [address] Care Team Providers Care Conservation Or Heritage Architect Name Role Phone MARIA DE JESUS MERCADO Unavailable PROBLEMS Type Condition ICD9-CM Code [id number] Code Onset Dates Condition Status SNOMED Code Problem Gastroesophageal reflux disease without esophagitis K21.9 Active 030043252 Problem Acute pain of left shoulder M25.512 Active 51343915 Problem Seasonal allergic rhinitis due to pollen J30.1 Active 07804882 Problem Forgetfulness R68.89 Active 62789055 Problem Headache R51 Active 36883859 Problem Anxiety F41.9 Active 73370190 Problem Back pain with right-sided radiculopathy M54.10 Active 609215217 Problem Lumbago with sciatica, right side M54.41 Active 34232006 Problem Lumbago with sciatica, left side M54.42 Active 29318198 Problem Other chronic pain G89.29 Active 29627293 Problem Mild persistent asthma with acute exacerbation J45.31 Active 453392517192285 Problem Migraine without aura and without status migrainosus, not intractable G43.009 Active 525742671 Problem Intractable migraine with aura with status migrainosus G43.111 Active 340607303 ALLERGIES No Information SOCIAL HISTORY Never Assessed PLAN OF CARE VITAL SIGNS MEDICATIONS Medication Instructions Dosage Frequency Start Date End Date Duration Status Zomig 5 mg Orally Once a day 1 tablet as needed. May repeat in 2 hours if needed 24h Nov, Active RESULTS No Results PROCEDURES No Known [...]
--- OUTSIDE RECORDS SUMMARY | 2017-10-07 21:26 | XMS REPORT ---
Author Author MARIA DE JESUS MERCADO [facility] Address [address] [place] [address] Care Team Providers Care Log Getter Name Role Phone MARIA DE JESUS MERCADO Unavailable PROBLEMS Type Condition ICD9-CM Code OCF84-TN Code Onset Dates Condition Status SNOMED Code Problem Gastroesophageal reflux disease without esophagitis K21.9 Active 185814994 Problem Acute pain of left shoulder M25.512 Active 72230429 Problem Seasonal allergic rhinitis due to pollen J30.1 Active 95437221 Problem Forgetfulness R68.89 Active 73840198 Problem Headache R51 Active 29246693 Problem Anxiety F41.9 Active 96799277 Problem Back pain with right-sided radiculopathy M54.10 Active 198861649 Problem Lumbago with sciatica, right side M54.41 Active 60518543 Problem Lumbago with sciatica, left side M54.42 Active 95167156 Problem Other chronic pain G89.29 Active 27869026 Problem Mild persistent asthma with acute exacerbation J45.31 Active 624095414763400 Problem Migraine without aura and without status migrainosus, not intractable G43.009 Active 828516037 Problem Intractable migraine with aura with status migrainosus G43.111 Active 350311502 ALLERGIES No Known Allergies SOCIAL HISTORY No smoking Hx information available PLAN OF CARE VITAL SIGNS MEDICATIONS No Known Medications RESULTS No Results PROCEDURES No Known procedures IMMUNIZATIONS No Known Immunizations
--- OUTSIDE RECORDS SUMMARY | 2017-10-07 21:26 | XMS REPORT ---
Author Author ERIC SALGADO Organization [facility] Address [address] [place] [address] Care Team Providers Care Core Composer Feeder Name Role Phone ERIC SALGADO Unavailable PROBLEMS Type Condition ICD9-CM Code CIL93-VY Code Onset Dates Condition Status SNOMED Code Problem Gastroesophageal reflux disease without esophagitis K21.9 Active 158329220 Problem Acute pain of left shoulder M25.512 Active 82894835 Problem Seasonal allergic rhinitis due to pollen J30.1 Active 16006246 Problem Forgetfulness R68.89 Active 28674691 Problem Headache R51 Active 75811132 Problem Anxiety F41.9 Active 84410599 Problem Back pain with right-sided radiculopathy M54.10 Active 514316945 Problem Lumbago with sciatica, right side M54.41 Active 38995007 Problem Lumbago with sciatica, left side M54.42 Active 97272351 Problem Other chronic pain G89.29 Active 33922436 Problem Mild persistent asthma with acute exacerbation J45.31 Active 262932039683219 Problem Migraine without aura and without status migrainosus, not intractable G43.009 Active 392632503 Problem Intractable migraine with aura with status migrainosus G43.111 Active 369630231 ALLERGIES Substance Reaction Event Type Date Status MetFORMIN HCl ER shakiness, wt loss Drug Allergy Aug, Active Sulfamethoxazole-Trimethoprim Unknown Drug Allergy Aug, Active Septra Unknown Drug Allergy Aug, Active Penicillin V Potassium Unknown Drug Allergy Aug, Active Morphine Sulfate slept for 3 days Drug Allergy Aug, Active Depakote attempted Suicide Drug Allergy Aug, Active Bactrim Unknown Drug Allergy Aug, Active SOCIAL HISTORY Never Assessed PLAN OF CARE VITAL SIGNS Height 64 in 2016-09-15 Weight 121.0 lbs 2016-09-15 Temperature 98.4 degrees Fahrenheit 2016-09-15 Heart Rate 80 bpm 2016-09-15 Respiratory Rate 18 2016-09-15 BMI 20.77 kg/m2 2016-09-15 Blood pressure systolic 116 mmHg 2016-09-15 Blood pressure diastolic 78 mmHg 2016-09-15 MEDICATIONS Medication Instructions Dosage Frequency Start Date End Date Duration Status Omeprazole 40 MG Orally Once a day 1 capsule 24h 90 days Active Benztropine Mesylate 1 MG Orally 3 times a day 1 tablet 8h 90 days Active Lexapro 20 mg Orally Once a day 2 tablets 24h 90 days Active EpiPen 0.3 MG/0.3ML (1:1000) Intramuscular PRN as directed Mar, 1 dose Active Claritin 10 MG Orally Once a day 1 tablet 24h Active Albuterol 90 mcg/actuation 2 puffs by Inhalation route 4 times per day PRN Jul, Active Test strips Test Strips as directed October, Active Doxycycline Hyclate 100 MG Orally every 12 hrs 1 capsule 12h Aug, Aug, 5 day(s) Active Xanax 1 MG Orally 3 times a day 1 tablet 8h Aug, 28 days Active Blood Glucose Monitor 1 glucometer test blood sugars 12h October, Active Promethazine-Codeine 6.25-10 MG/5ML Orally every 6 hrs 5 ml as needed 6h Aug, Active Hydrocodone-Acetaminophen 7.5-325 MG Orally 4 times a day 1 tablet as needed 6h May, 28 days Active RESULTS No Results PROCEDURES No [...]
--- OUTSIDE RECORDS SUMMARY | 2017-10-07 21:26 | XMS REPORT ---
Author Author MARIA DE JESUS MERCADO [facility] Address [address] [place] [address] Care Team Providers Care Warehouse Assistant Name Role Phone MARIA DE JESUS MERCADO Unavailable PROBLEMS Type Condition ICD9-CM Code QSZ15-MH Code Onset Dates Condition Status SNOMED Code Problem Gastroesophageal reflux disease without esophagitis K21.9 Active 950570916 Problem Acute pain of left shoulder M25.512 Active 14837207 Problem Seasonal allergic rhinitis due to pollen J30.1 Active 06344560 Problem Forgetfulness R68.89 Active 60862172 Problem Headache R51 Active 49050337 Problem Anxiety F41.9 Active 69109979 Problem Back pain with right-sided radiculopathy M54.10 Active 251447069 Problem Lumbago with sciatica, right side M54.41 Active 71577418 Problem Lumbago with sciatica, left side M54.42 Active 02904137 Problem Other chronic pain G89.29 Active 37439571 Problem Mild persistent asthma with acute exacerbation J45.31 Active 157689007860737 Problem Migraine without aura and without status migrainosus, not intractable G43.009 Active 890713104 Problem Intractable migraine with aura with status migrainosus G43.111 Active 505386946 ALLERGIES No Information SOCIAL HISTORY Never Assessed [...]
--- OUTSIDE RECORDS SUMMARY | 2017-10-07 21:27 | XMS REPORT ---
Author Author MARIA DE JESUS MERCADO [facility] Address [address] [place] [address] Care Team Providers Care Fall Intern Name Role Phone MARIA DE JESUS MERCADO Unavailable PROBLEMS Type Condition ICD9-CM Code SZE14-FZ Code Onset Dates Condition Status SNOMED Code Problem Gastroesophageal reflux disease without esophagitis K21.9 Active 360391987 Problem Acute pain of left shoulder M25.512 Active 95716265 Problem Seasonal allergic rhinitis due to pollen J30.1 Active 37413556 Problem Forgetfulness R68.89 Active 77177180 Problem Headache R51 Active 03695496 Problem Anxiety F41.9 Active 92041746 Problem Back pain with right-sided radiculopathy M54.10 Active 703531542 Problem Lumbago with sciatica, right side M54.41 Active 52737254 Problem Lumbago with sciatica, left side M54.42 Active 30276201 Problem Other chronic pain G89.29 Active 44747958 Problem Mild persistent asthma with acute exacerbation J45.31 Active 059328757923798 Problem Migraine without aura and without status migrainosus, not intractable G43.009 Active 855845664 Problem Intractable migraine with aura with status migrainosus G43.111 Active 204786686 ALLERGIES No Information SOCIAL HISTORY Never Assessed PLAN OF CARE VITAL SIGNS MEDICATIONS Medication Instructions Dosage Frequency Start Date End Date Duration Status Detrol LA 4 MG Orally Once a day 1 capsule 24h October, 30 days Active RESULTS No Results PROCEDURES No [...]
--- OUTSIDE RECORDS SUMMARY | 2017-10-07 21:28 | XMS REPORT ---
Author Author MARIA DE JESUS MERCADO [facility] Address [address] [place] [address] Care Team Providers Care Nuclear Monitoring Technician Name Role Phone MARIA DE JESUS MERCADO Unavailable PROBLEMS Type Condition ICD9-CM Code FWU42-VC Code Onset Dates Condition Status SNOMED Code Problem Gastroesophageal reflux disease without esophagitis K21.9 Active 177813964 Problem Acute pain of left shoulder M25.512 Active 53742095 Problem Seasonal allergic rhinitis due to pollen J30.1 Active 96595436 Problem Forgetfulness R68.89 Active 64562710 Problem Headache R51 Active 86197949 Problem Anxiety F41.9 Active 05656745 Problem Back pain with right-sided radiculopathy M54.10 Active 181169482 Problem Lumbago with sciatica, right side M54.41 Active 91094695 Problem Lumbago with sciatica, left side M54.42 Active 08549627 Problem Other chronic pain G89.29 Active 82149846 Problem Mild persistent asthma with acute exacerbation J45.31 Active 467667875699997 Problem Migraine without aura and without status migrainosus, not intractable G43.009 Active 979632654 Problem Intractable migraine with aura with status migrainosus G43.111 Active 537487315 ALLERGIES No Information SOCIAL HISTORY Never Assessed PLAN OF CARE VITAL SIGNS MEDICATIONS Medication Instructions Dosage Frequency Start Date End Date Duration Status Hydrocodone-Acetaminophen 7.5-325 MG Orally twice a day 1 tablet as needed 12h October, 14 days Active Xanax 1 MG Orally 3 times a day 1 tablet 8h Aug, 14 days Active RESULTS No Results PROCEDURES No [...]
--- OUTSIDE RECORDS SUMMARY | 2017-10-07 21:28 | XMS REPORT ---
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 [place] [address]- 1389 Jan, [facility] [place] [facility] [address] [id number] [place] [address]- 5722 Jan, [facility] [place] [facility] [address] [id number] [place] [address]- 0169 Jan, [facility] [place] [facility] [address] [id number] [place] [address]- 3740 Jan, [facility] [place] [facility] [address] [id number] [place] [address]- 7295 Jan, [facility] [place] [facility] [address] [id number] [place] [address]- 2881 Dec, [facility] [place] [facility] [address] [id number] [place] [address]- 0196 Dec, [facility] [place] [facility] [address] [id number] [place] [address]- 4049 Dec, [facility] [place] [facility] [address] [id number] [place] [address]- 1399 Dec, [facility] [place] [facility] [address] [id number] [place] [address]- 3592 Dec, [facility] [place] [facility] [address] [id number] [place] [address]- 9816 Dec, [facility] [place] [facility] [address] [id number] [place] [address]- 4193 Dec, [facility] [place] [facility] [address] [id number] [place] [address]- 5560 Dec, [facility] [place] [facility] [address] [id number] [place] [address]- 9586 Dec, [facility] [place] [facility] [address] [id number] [place] [address]- 3535 October, [facility] [place] [facility] [address] [id number] [place] [address]- 7536 October, [facility] [place] [facility] [address] [id number] [place] [address]- 1451 Sep, [facility] [place] [facility] [address] [id number] [place] [address]- 0055 Sep, [facility] [place] [facility] [address] [id number] [place] [address]- 9298 Aug, [facility] [place] [facility] [address] [id number] [place] [address]- 2625 Aug, [facility] [place] [facility] [address] [id number] [place] [address]- 3515 Aug, [facility] [place] [facility] [address] [id number] [place] [address]- 9668 Aug, [facility] [place] [facility] [address] [id number] [place] [address]- 9582 17 Aug, 2013 [facility] [place] [facility] [address] [id number] [place] [address]- 6596 17 Aug, 2013 [facility] [place] [facility] [address] [id number] [place] [address]- 8526 14 Aug, 2013 [facility] [place] [facility] [address] [id number] [place] [address]- 2546 07 Aug, 2013 [facility] [place] [facility] [address] [id number] [place] [address]- 3054 Aug, [facility] [place] [facility] [address] [id number] [place] [address]- 5145 Aug, [facility] [place] [facility] [address] [id number] [place] 5360 Aug, [facility] [place] [facility] [address] [id number] [place] 4641 Jul, [facility] [place] [facility] [address] [id number] [place] [address]- 6468 Jul, [facility] [place] [facility] [address] [id number] [place] [address]- 1781 May, [facility] [place] [facility] [address] [id number] [place] [address]- 0336 May, [facility] [place] [facility] [address] [id number] [place] [address]- 9762 May, [facility] [place] [facility] [address] [id number] [place] [address]- 6502 May, [facility] [place] [facility] [address] [id number] [place] [address]- 0836 May, [facility] [place] [facility] [address] [id number] [place] [address]- 0832 May, [facility] [place] [facility] [address] [id number] [place] [address]- 1887 May, [facility] [place] [facility] [address] [id number] [place] [address]- 6782 May, [facility] [place] [facility] [address] [id number] [place] [address]- 1832 May, [facility] [place] [facility] [address] [id number] [place] [address]- 6227 May, [facility] [place] [facility] [address] [id number] [place] [address]- 3688 May, [facility] [place] [facility] [address] [id number] [place] [address]- 7854 20 May, 2013 [facility] [address] [id number] [place] [address]- 2360 May, [facility] [address] [id number] [place] [address]- 9900 20 May, 2013 [facility] [address] [id number] [place] [address]- 6089 May, [facility] [address] [id number] [place] [address]- 0186 19 May, 2013 [facility] [address] [id number] [place] [address]- 0339 18 May, 2013 [facility] [address] [id number] [place] [address]- 2287 18 May, 2013 [facility] [address] [id number] [place] [address]- 1785 16 May, 2013 [facility] [address] [id number] [place] [address]- 9465 16 May, 2013 [facility] [address] [id number] [place] [address]- 5257 May, [facility] [address] [id number] [place] [address]- 5733 May, [facility] [place] [facility] [address] [id number] [place] [address]- 1286 May, [facility] [address] [id number] [place] [address]- 4916 May, [facility] [place] [facility] [address] [id number] [place] [address]- 8217 May, [facility] [place] [facility] [address] [id number] [place] [address]- 3282 May, [facility] [place] [facility] [address] [id number] [place] [address]- 7264 May, [facility] [place] [facility] [address] [id number] [place] [address]- 4266 May, [facility] [place] [facility] [address] [id number] [place] [address]- 8686 May, [facility] [place] [facility] [address] [id number] [place] [address]- 2358 May, [facility] [place] [facility] [address] [id number] [place] [address]- 5596 Mar, [facility] [place] [facility] [address] [id number] [place] [address]- 5305 Mar, [facility] [place] [facility] [address] [id number] [place] [address]- 1720 Mar, [facility] [place] [facility] [address] [id number] [place] [address]- 2775 Mar, [facility] [place] [facility] [address] [id number] [address]- 8087 30 Mar, 2013 [facility] [place] [facility] [address] [id number] [address]- 3582 Mar, [facility] [place] [facility] [address] [id number] [address]- 8721 Mar, [facility] [place] [facility] [address] [id number] [address]- 2626 Mar, [facility] [place] [facility] [address] [id number] [address]- 0664 29 Mar, 2013 [facility] [place] [facility] [address] [id number] [address]- 2841 Mar, [facility] [place] [facility] [address] [id number] [address]- 9952 Mar, [facility] [place] [facility] [address] [id number] [address]- 2077 24 Mar, 2013 [facility] [place] [facility] [address] [id number] [place] [address]- 6282 24 Mar, 2013 [facility] [place] [facility] [address] [id number] [place] [address]- 9212 23 Mar, 2013 [facility] [place] [facility] [address] [id number] [place] [address]- 0026 22 Mar, 2013 [facility] [place] [facility] [address] [id number] [place] [address]- 2902 21 Mar, 2013 [facility] [place] [facility] [address] [id number] [place] [address]- 4738 21 Mar, 2013 [facility] [place] [facility] [address] [id number] [place] [address]- 1052 18 Mar, 2013 [facility] [place] [facility] [address] [id number] [place] [address]- 3801 18 Mar, 2013 [facility] [place] [facility] [address] [id number] [place] [address]- 4945 18 Mar, 2013 [facility] [place] [facility] [address] [id number] [place] [address]- 8004 18 Mar, 2013 [facility] [place] [facility] [address] [id number] [place] [address]- 6805 14 Mar, 2013 [facility] [place] [facility] [address] [id number] [place] [address]- 1913 14 Mar, 2013 [facility] [place] [facility] [address] [id number] [address]- 5560 10 Mar, 2013 [facility] [place] [facility] [address] [id number] [address]- 9148 18 Mar, 2013 [facility] [place] [facility] [address] [id number] [place] [address]- 7651 12 Mar, 2013 [facility] [place] [facility] [address] [id number] [place] [address]- 8857 11 Mar, 2013 [facility] [place] [facility] [address] [id number] [place] [address]- 3690 26 Jan, 2013 [facility] [place] [facility] [address] [id number] [place] [address]- 0347 October, [facility] [place] [facility] [address] [id number] [place] [address]- 0314 Sep, [facility] [place] [facility] [address] [id number] [place] [address]- 6294 Sep, [facility] [place] [facility] [address] [id number] [place] [address]- 8478 07 Aug, 2012 [facility] [place] [facility] [address] [id number] [place] [address]- 0663 Aug, [facility] [place] [facility] [address] [id number] [place] [address], [place] [address]- 5046 04 Aug, 2012 [facility] [place] [facility] [address] [id number] [place] 9935 Jul, [facility] [place] [facility] [address] [id number] [place] [address]- 7338 May, [facility] [place] [facility] [address] [id number] [place] [address]- 0306 May, [facility] [place] [facility] [address] [id number] [place] [address]- 5138 18 May, 2012 [facility] [place] [facility] [address] [id number] [place] [address]- 7144 18 May, 2012 [facility] [place] [facility] [address] [id number] [place] [address]- 6522 Mar, [facility] [place] [facility] [address] [id number] [place] 3072 19 Mar, 2012 [facility] [place] [facility] [address] [id number] [place] [address] 16 Mar, 2012 [facility] [place] [facility] [address] [id number] [place] [address] 25 Mar, 2012 [facility] [place] [facility] [address] [id number] [place] [address] 1662 19 Mar, 2012 [facility] [place] [facility] [address] [id number] [place] [address] 13 Mar, 2012 [facility] [place] [facility] [address] [id number] [place] [address] Mar, [facility] [place] [facility] [address] [id number] [place] [address] 30 Jan, 2012 [facility] [place] [facility] [address] [id number] [place] [address] Jan, [facility] [place] [facility] [address] [id number] [place] [address] Jan, [facility] [place] [facility] [address] [id number] [place] [address] Jan, [facility] [place] [facility] [address] [id number] [place] [address] Jan, [facility] [place] [facility] [address] [id number] [place] [address] Jan, [facility] [place] [facility] [address] [id number] [place] [address] Jan, [facility] [place] [facility] [address] [id number] [place] [address] Jan, [facility] [place] [facility] [address] [id number] [place] [address] Jan, [facility] [place] [facility] [address] [id number] [place] [address]- 86[address] Jan, [facility] [place] [facility] [address] [id number] [place] [address] 2006 Jan, [facility] [place] [facility] [address] [id number] [place] [address] Jan, [facility] [place] [facility] [address] [id number] [place] [address] Jan, [facility] [place] [facility] [address] [id number] [place] [address]- 30[address] Jan, [facility] [address] [id number] [place] [address] 6[address] Jan, [facility] [address] [id number] [place] [address] Jan, [facility] [address] [id number] [place] [address] Dec, [facility] [address] [id number] [place] [address] 9531 Dec, [facility] [address] [id number] [place] [address]- 0775 Nov, [facility] [address] [id number] [place] [address] Nov, [facility] [address] [id number] [place] [address] October, [facility] [address] [id number] [place] [address] October, [facility] [address] [id number] [place] [address] 3870 October, [facility] [address] [id number] [place] [address] Sep, [facility] [address] [id number] [place] [address] 44[address] Sep, [facility] [address] [id number] [place] [address] 30 Aug, 2011 [facility] [place] [facility] [address] [id number] [place] [address]26 28 Aug, 2011 [facility] [place] [facility] [address] [id number] [place] [address]66 Aug, [facility] [address] [id number] [place] [address] 52[address] Aug, [facility] [place] [facility] [address] [id number] [place] [address]- 2019 12 Aug, 2011 [facility] [place] [facility] [address] [id number] [place] [address] 9196 14 Aug, 2011 [facility] [place] [facility] [address] [id number] [place] [address] 07 Aug, 2011 [facility] [place] [facility] [address] [id number] [place] [address] 225[address] Jul, [facility] [place] [facility] [address] [id number] [place] [address] 9463 Jul, [facility] [place] [facility] [address] [id number] [place] [address] 269[address] Jul, [facility] [place] [facility] [address] [id number] [place] [address] 46[address] 28 May, 2011 [facility] [place] [facility] [address] [id number] [place] [address]- 3982 28 May, 2011 [facility] [place] [facility] [address] [id number] [place] [address] May, [facility] [place] [facility] [address] [id number] [address] May, [facility] [place] [facility] [address] [id number] [address] May, [facility] [place] [facility] [address] [id number] [place] [address] May, [facility] [place] [facility] [address] [id number] [place] [address]- 4967 May, [facility] [place] [facility] [address] [id number] [place] [address] 49[address] 25 Mar, 2011 [facility] [place] [facility] [address] [id number] [address] 9517 Mar, [facility] [place] [facility] [address] [id number] [place] [address] Mar, [facility] [id number] [address] Mar, [facility] [id number] [address] Mar, [facility] [id number] [place] [address] Mar, [facility] [id number] [place] [address] Jan, [facility] [id number] [place] [address]- 0273 May, [facility] [id number] [place] [address]- 4269 May, [facility] [id number] [place] [address]- 3254 May, [facility] [id number] [place] [address]- 4440 May, [facility] [id number] [place] [address]- 6349 May, [facility] [id number] [address] May, [facility] [id number] [address] Mar, [facility] [id number] [id number] Sep, IMMUNIZATIONS No Known Immunizations SOCIAL HISTORY Never Assessed REASON FOR VISIT Headlice treatment PLAN OF CARE VITAL SIGNS MEDICATIONS Medication Instructions Dosage Frequency Start Date End Date Duration Status Ulesfia 5 % Externally as directed saturate wet hair and scalp and leave on for 20min. Rinse and comb out nits. Repeat in 10 days Nov, Active RESULTS No Results PROCEDURES No Known procedures INSTRUCTIONS MEDICATIONS ADMINISTERED No Known Medications MEDICAL (GENERAL) HISTORY Type Description Date Medical [...]
--- OUTSIDE RECORDS SUMMARY | 2017-10-07 21:28 | XMS REPORT ---
Author Author MARIA DE JESUS MERCADO [facility] Address [address] [place] [address] Care Team Providers Care Dining Host Name Role Phone MARIA DE JESUS MERCADO Unavailable PROBLEMS Type Condition ICD9-CM Code [id number] Code Onset Dates Condition Status SNOMED Code Problem Gastroesophageal reflux disease without esophagitis K21.9 Active 477082224 Problem Acute pain of left shoulder M25.512 Active 09885780 Problem Seasonal allergic rhinitis due to pollen J30.1 Active 29847758 Problem Forgetfulness R68.89 Active 17807718 Problem Headache R51 Active 70654922 Problem Anxiety F41.9 Active 12041175 Problem Back pain with right-sided radiculopathy M54.10 Active 963838908 Problem Lumbago with sciatica, right side M54.41 Active 63112879 Problem Lumbago with sciatica, left side M54.42 Active 56354772 Problem Other chronic pain G89.29 Active 66604535 Problem Mild persistent asthma with acute exacerbation J45.31 Active 523616393271505 Problem Migraine without aura and without status migrainosus, not intractable G43.009 Active 572072660 Problem Intractable migraine with aura with status migrainosus G43.111 Active [id number] ALLERGIES No Information SOCIAL HISTORY Never Assessed PLAN OF CARE VITAL SIGNS MEDICATIONS Medication Instructions Dosage Frequency Start Date End Date Duration Status Clonidine HCl 0.1 MG Orally Once a day 2 tablets at bedtime 24h Aug, 14 days Active RESULTS No Results [...]
--- OUTSIDE RECORDS SUMMARY | 2017-10-07 21:28 | XMS REPORT ---
Author Author MARIA DE JESUS MERCADO [facility] Address [address] [place] [address] Care Team Providers Care Iron Assorter Name Role Phone MARIA DE JESUS MERCADO Unavailable PROBLEMS Type Condition ICD9-CM Code [id number] Code Onset Dates Condition Status SNOMED Code Problem Gastroesophageal reflux disease without esophagitis K21.9 Active 465088105 Problem Acute pain of left shoulder M25.512 Active 22250307 Problem Seasonal allergic rhinitis due to pollen J30.1 Active 30244856 Problem Forgetfulness R68.89 Active 64665456 Problem Headache R51 Active 65518953 Problem Anxiety F41.9 Active 60604126 Problem Back pain with right-sided radiculopathy M54.10 Active 835374176 Problem Lumbago with sciatica, right side M54.41 Active 71281643 Problem Lumbago with sciatica, left side M54.42 Active 22558425 Problem Other chronic pain G89.29 Active 50640780 Problem Mild persistent asthma with acute exacerbation J45.31 Active 779024988857813 Problem Migraine without aura and without status migrainosus, not intractable G43.009 Active 372985642 Problem Intractable migraine with aura with status migrainosus G43.111 Active 667554012 ALLERGIES No Information SOCIAL HISTORY Never Assessed PLAN OF CARE VITAL SIGNS MEDICATIONS No [...]
--- OUTSIDE RECORDS SUMMARY | 2017-10-07 21:28 | XMS REPORT ---
Author Author MARIA DE JESUS MERCADO [facility] Address [address] [place] [address] Care Team Providers Care Lead Web Developer Name Role Phone MARIA DE JESUS MERCADO Unavailable PROBLEMS Type Condition ICD9-CM Code [id number] Code Onset Dates Condition Status SNOMED Code Problem Gastroesophageal reflux disease without esophagitis K21.9 Active 087406138 Problem Acute pain of left shoulder M25.512 Active 89809212 Problem Seasonal allergic rhinitis due to pollen J30.1 Active 47589275 Problem Forgetfulness R68.89 Active 77368102 Problem Headache R51 Active 78976743 Problem Anxiety F41.9 Active 46394392 Problem Back pain with right-sided radiculopathy M54.10 Active 509030766 Problem Lumbago with sciatica, right side M54.41 Active 54411619 Problem Lumbago with sciatica, left side M54.42 Active 96351078 Problem Other chronic pain G89.29 Active 24594291 Problem Mild persistent asthma with acute exacerbation J45.31 Active 459349373047687 Problem Migraine without aura and without status migrainosus, not intractable G43.009 Active 548211889 Problem Intractable migraine with aura with status migrainosus G43.111 Active 083618084 ALLERGIES Substance Reaction Event Type Date Status [...] SOCIAL HISTORY Never Assessed PLAN OF CARE Activity Details Follow Up prn Reason: VITAL SIGNS Height 64 in 2016-09-19 Weight 127.6 lbs 2016-09-19 Temperature 97.9 degrees Fahrenheit 2016-09-19 Heart Rate 88 bpm 2016-09-19 Respiratory Rate 20 2016-09-19 Oximetry on room air:99 % 2016-09-19 BMI 21.90 kg/m2 2016-09-19 Blood pressure systolic 126 mmHg 2016-09-19 Blood pressure diastolic 78 mmHg 2016-09-19 MEDICATIONS Medication Instructions Dosage Frequency Start Date End Date Duration Status Blood Glucose Monitor 1 glucometer test blood sugars 12h 12 Oct, 2015 Active Hydrocodone-Acetaminophen 7.5-325 MG Orally 4 times a day 1 tablet as needed 6h May, 28 days Active Albuterol 90 mcg/actuation 2 puffs by Inhalation route 4 times per day PRN Jul, Active Test strips Test Strips as directed October, Active Omeprazole 40 MG Orally Once a day 1 capsule 24h 90 days Active Promethazine-Codeine 6.25-10 MG/5ML Orally every 6 hrs 5 ml as needed 6h Aug, Active PredniSONE 20 mg Orally Once a day 1 tablet 24h Aug, Aug, 05 days Active Lexapro 20 mg Orally Once a day 2 tablets 24h 90 days Active Xanax 1 MG Orally 3 times a day 1 tablet 8h Aug, 28 days Active Claritin 10 MG Orally Once a day 1 tablet 24h Active Albuterol Sulfate (2.5 MG/3ML) 0.083% Inhalation Three times a day 3 ml 8h Aug, Active Benztropine Mesylate 1 MG Orally 3 times a day 1 tablet 8h 90 days Active EpiPen 0.3 MG/0.3ML (1:1000) Intramuscular PRN as directed Mar, 1 dose Active Doxycycline Hyclate 100 MG Orally every 12 hrs 1 capsule 12h Aug, Aug, 5 day(s) Active Ventolin HFA 108 (90 Base) MCG/ACT Inhalation every 4 hrs 2 puffs as needed 4h Aug, Active RESULTS No Results PROCEDURES Procedure Date Ordered Result Body Site MEASURE BLOOD OXYGEN LEVEL September 19, 2016 IMMUNIZATIONS No Known Immunizations MEDICAL (GENERAL) HISTORY [...]
--- OUTSIDE RECORDS SUMMARY | 2017-10-07 21:29 | XMS REPORT ---
Author Author MARIA DE JESUS MERCADO [facility] Address [address] [place] [address] Care Team Providers Care Bottom Finisher Name Role Phone MARIA DE JESUS MERCADO Unavailable PROBLEMS Type Condition ICD9-CM Code HEA11-GP Code Onset Dates Condition Status SNOMED Code Problem Gastroesophageal reflux disease without esophagitis K21.9 Active 667536386 Problem Acute pain of left shoulder M25.512 Active 82753715 Problem Seasonal allergic rhinitis due to pollen J30.1 Active 49330613 Problem Forgetfulness R68.89 Active 61304249 Problem Headache R51 Active 26385377 Problem Anxiety F41.9 Active 03473064 Problem Back pain with right-sided radiculopathy M54.10 Active 299707529 Problem Lumbago with sciatica, right side M54.41 Active 47318353 Problem Lumbago with sciatica, left side M54.42 Active 51960336 Problem Other chronic pain G89.29 Active 45091584 Problem Mild persistent asthma with acute exacerbation J45.31 Active 336451320330891 Problem Migraine without aura and without status migrainosus, not intractable G43.009 Active 928575772 Problem Intractable migraine with aura with status migrainosus G43.111 Active 938204994 ALLERGIES Unknown Allergies SOCIAL HISTORY No smoking Hx information available PLAN OF CARE VITAL SIGNS MEDICATIONS Unknown Medications RESULTS No Results PROCEDURES No Known procedures IMMUNIZATIONS No Known Immunizations
--- OUTSIDE RECORDS SUMMARY | 2017-10-07 21:29 | XMS REPORT ---
Author Author MARIA DE JESUS MERCADO [facility] Address [address] [place] [address] Care Team Providers Care Bark Scaler Name Role Phone MARIA DE JESUS MERCADO Unavailable PROBLEMS Type Condition ICD9-CM Code OOA41-TN Code Onset Dates Condition Status SNOMED Code Problem Gastroesophageal reflux disease without esophagitis K21.9 Active 073245262 Problem Acute pain of left shoulder M25.512 Active 09839160 Problem Seasonal allergic rhinitis due to pollen J30.1 Active 09288873 Problem Forgetfulness R68.89 Active 87192121 Problem Headache R51 Active 48452155 Problem Anxiety F41.9 Active 43423490 Problem Back pain with right-sided radiculopathy M54.10 Active 793620625 Problem Lumbago with sciatica, right side M54.41 Active 47298924 Problem Lumbago with sciatica, left side M54.42 Active 52950190 Problem Other chronic pain G89.29 Active 32370178 Problem Mild persistent asthma with acute exacerbation J45.31 Active 566357710819200 Problem Migraine without aura and without status migrainosus, not intractable G43.009 Active 203515764 Problem Intractable migraine with aura with status migrainosus G43.111 Active 434444762 ALLERGIES No Information SOCIAL HISTORY Never Assessed PLAN OF CARE VITAL SIGNS MEDICATIONS Unknown Medications RESULTS Name Result Date Reference Range [facility] 2016-08-31 Glucose, Serum 93 65-99 BUN 6 6-20 Creatinine, Serum 0.77 0.57-1.00 eGFR If NonAfricn Am 100 >59 eGFR If Africn Am 115 >59 BUN/Creatinine Ratio 8 8-20 Sodium, Serum 143 134-144 Potassium, Serum 3.6 3.5-5.2 Chloride, Serum 105 96-106 Carbon Dioxide, Total 25 18-29 Calcium, Serum 9.0 8.7-10.2 Protein, Total, Serum 6.5 6.0-8.5 Albumin, Serum 4.0 3.5-5.5 Globulin, Total 2.5 1.5-4.5 A/G Ratio 1.6 1.1-2.5 Bilirubin, Total 0.5 0.0-1.2 Alkaline Phosphatase, S 49 39-117 AST (SGOT) 12 0-40 ALT (SGPT) 12 0-32 PROCEDURES Procedure Date Ordered Result Body Site COMPREHEN METABOLIC PANEL August 31, 2016 VENIPUNCT, ROUTINE* August 31, 2016 IMMUNIZATIONS No Known Immunizations MEDICAL (GENERAL) [...]
--- OUTSIDE RECORDS SUMMARY | 2017-10-07 21:30 | XMS REPORT ---
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 [address] [id number] [place] [address]- 8449 Jan, [facility] [place] [facility] [address] [id number] [place] [address]- 5414 Jan, [facility] [place] [facility] [address] [id number] [place] [address]- 8256 Jan, [facility] [place] [facility] [address] [id number] [place] [address]- 8823 Jan, [facility] [place] [facility] [address] [id number] [place] [address]- 2478 Jan, [facility] [place] [facility] [address] [id number] [place] [address]- 4534 Dec, [facility] [place] [facility] [address] [id number] [place] [address]- 5719 Dec, [facility] [place] [facility] [address] [id number] [place] [address]- 8213 Dec, [facility] [place] [facility] [address] [id number] [place] [address]- 2717 Dec, [facility] [place] [facility] [address] [id number] [place] [address]- 5007 Dec, [facility] [place] [facility] [address] [id number] [place] [address]- 9090 Dec, [facility] [place] [facility] [address] [id number] [place] [address]- 3487 Dec, [facility] [place] [facility] [address] [id number] [place] [address]- 2042 11 Dec, 2013 [facility] [place] [facility] [address] [id number] [place] [address]- 8788 Dec, [facility] [place] [facility] [address] [id number] [place] [address]- 2597 October, [facility] [place] [facility] [address] [id number] [place] [address]- 8081 October, [facility] [place] [facility] [address] [id number] [place] [address]- 3299 Sep, [facility] [place] [facility] [address] [id number] [place] [address]- 3763 Sep, [facility] [place] [facility] [address] [facility] [id number] [place] [address]- 9356 Aug, [facility] [place] [facility] [address] [facility] [id number] [place] [address]- 8769 Aug, [facility] [place] [facility] [address] [facility] [id number] [place] [address]- 5074 Aug, [facility] [place] [facility] [address] [id number] [place] [address]- 4763 Aug, [facility] [place] [facility] [address] [facility] [id number] [place] [address]- 5912 17 Aug, 2013 [facility] [place] [facility] [address] [facility] [id number] [place] [address]- 9463 17 Aug, 2013 [facility] [place] [facility] [address] [facility] [id number] [place] [address]- 4632 14 Aug, 2013 [facility] [place] [facility] [address] [id number] [place] [address]- 5041 07 Aug, 2013 [facility] [place] [facility] [address] [facility] [id number] [place] [address]- 2624 07 Aug, 2013 [facility] [place] [facility] [address] [facility] [id number] [place] [address]- 0820 Aug, [facility] [address] [id number] [place] [address]- 3099 Aug, [facility] [place] [facility] [address] [id number] [place] [address]- 4379 Jul, [facility] [place] [facility] [address] [id number] [place] [address]- 1151 Jul, [facility] [place] [facility] [address] [id number] [place] [address]- 3286 May, [facility] [place] [facility] [address] [id number] [place] [address]- 6187 May, [facility] [place] [facility] [address] [id number] [place] [address]- 3622 May, [facility] [place] [facility] [address] [id number] [place] [address]- 9854 May, [facility] [place] [facility] [address] [id number] [place] [address]- 1871 May, [facility] [place] [facility] [address] [id number] [place] [address]- 5199 May, [facility] [place] [facility] [address] [id number] [place] [address]- 5620 May, [facility] [place] [facility] [address] [id number] [place] [address]- 7071 May, [facility] [place] [facility] [address] [id number] [place] [address]- 9153 May, [facility] [place] [facility] [address] [id number] [place] [address]- 6451 May, [facility] [place] [facility] [address] [id number] [place] [address]- 2140 May, [facility] [place] [facility] [address] [id number] [place] [address]- 9492 May, [facility] [place] [facility] [address] [id number] [place] [address]- 4714 20 May, 2013 [facility] [address] [id number] [place] [address]- 5236 20 May, 2013 [facility] [place] [facility] [address] [id number] [place] [address]- 7893 19 May, 2013 [facility] [place] [facility] [address] [id number] [place] [address]- 5423 19 May, 2013 [facility] [place] [facility] [address] [id number] [place] [address]- 5442 18 May, 2013 [facility] [place] [facility] [address] [id number] [place] [address]- 2461 18 May, 2013 [facility] [place] [facility] [address] [id number] [place] [address]- 6396 16 May, 2013 [facility] [place] [facility] [address] [id number] [place] [address]- 6984 16 May, 2013 [facility] [place] [facility] [address] [id number] [place] [address]- 3971 May, [facility] [place] [facility] [address] [id number] [place] [address]- 5685 May, [facility] [place] [facility] [address] [facility] [id number] [place] [address]- 1941 May, [facility] [place] [facility] [address] [id number] [place] [address]- 4376 May, [facility] [place] [facility] [address] [id number] [place] [address]- 4766 May, [facility] [place] [facility] [address] [id number] [place] [address]- 8963 May, [facility] [place] [facility] [address] [id number] [place] [address]- 3146 May, [facility] [place] [facility] [address] [id number] [place] [address]- 2899 07 May, 2013 [facility] [place] [facility] [address] [id number] [place] [address]- 3508 May, [facility] [place] [facility] [address] [id number] [place] [address]- 5360 May, [facility] [place] [facility] [address] [id number] [place] [address]- 8996 Mar, [facility] [place] [facility] [address] [id number] [place] [address]- 1726 Mar, [facility] [place] [facility] [address] [id number] [place] [address]- 8150 Mar, [facility] [place] [facility] [address] [id number] [place] [address]- 0076 Mar, [facility] [place] [facility] [address] [id number] [place] [address]- 9486 Mar, [facility] [place] [facility] [address] [id number] [place] [address]- 6119 Mar, [facility] [place] [facility] [address] [id number] [place] [address]- 1610 Mar, [facility] [place] [facility] [address] [id number] [place] [address]- 5877 Mar, [facility] [place] [facility] [address] [id number] [place] [address]- 8933 Mar, [facility] [place] [facility] [address] [id number] [place] [address]- 0859 Mar, [facility] [place] [facility] [address] [id number] [place] [address]- 3030 Mar, [facility] [place] [facility] [address] [id number] [place] [address]- 8451 Mar, [facility] [place] [facility] [address] [id number] [place] [address]- 8195 Mar, [facility] [place] [facility] [address] [id number] [place] [address]- 3275 23 Mar, 2013 [facility] [place] [facility] [address] [id number] [place] [address]- 4003 22 Mar, 2013 [facility] [place] [facility] [address] [id number] [place] [address] Mar, [facility] [place] [facility] [address] [id number] [place] [address] Mar, [facility] [place] [facility] [address] [id number] [place] [address] 18 Mar, 2013 [facility] [place] [facility] [address] [id number] [place] [address] 8380 18 Mar, 2013 [facility] [place] [facility] [address] [id number] [place] [address] 18 Mar, 2013 [facility] [place] [facility] [address] [id number] [place] [address]70 18 Mar, 2013 [facility] [place] [facility] [address] [id number] [place] [address] 4060 14 Mar, 2013 [facility] [place] [facility] [address] [id number] [place] [address] 14 Mar, 2013 [facility] [place] [facility] [address] [id number] [place] [address]90 10 Mar, 2013 [facility] [place] [facility] [address] [id number] [place] [address] 18 Mar, 2013 [facility] [place] [facility] [address] [id number] [place] [address]292 12 Mar, 2013 [facility] [place] [facility] [address] [id number] [place] [address] Mar, [facility] [place] [facility] [address] [id number] [place] [address] Jan, [facility] [place] [facility] [address] [id number] [place] [address] October, [facility] [place] [facility] [address] [id number] [place] [address]- 3693 22 Sep, 2012 [facility] [address] [id number] [place] [address] 9[address] 15 Sep, 2012 [facility] [place] [facility] [address] [id number] [place] [address] 2546 07 Aug, 2012 [facility] [address] [id number] [place] [address] 2546 06 Aug, 2012 [facility] [address] [id number] [place] [address] 2544 04 Aug, 2012 [facility] [address] [id number] [place] [address]- 6681 17 Jul, 2012 [facility] [address] [id number] [place] [address]- [address]600 19 May, 2012 [facility] [address] [id number] [place] [address]- 9795 19 May, 2012 [facility] [address] [id number] [place] [address] 8383 18 May, 2012 [facility] [address] [facility] [id number] [place] [address] 4028 18 May, 2012 [facility] [address] [facility] [id number] [place] [address]- 1193 19 Mar, 2012 [facility] [place] [facility] [address] [id number] [place] [address] 2541 19 Mar, 2012 [facility] [address] [id number] [place] [address] 2543 16 Mar, 2012 [facility] [place] [facility] [address] [id number] [place] [address]- 5286 25 Mar, 2012 [facility] [place] [facility] [address] [id number] [place] [address] 2546 19 Sep2011 [facility] [place] [facility] [address] [id number] [place] [id number] [address] 13 Mar, 2012 [facility] [place] [facility] [address] [id number] [place] [address]- 7185 07 Mar, 2012 [facility] [place] [facility] [address] [id number] [place] [address] 8463 Jan, [facility] [place] [facility] [address] [id number] [place] [address]- 3188 Jan, [facility] [place] [facility] [address] [id number] [place] [address]- 1612 Jan, [facility] [place] [facility] [address] [id number] [place] [address] Jan, [facility] [place] [facility] [address] [id number] [place] [address]- 4[address] Jan, [facility] [place] [facility] [address] [id number] [place] [address]- 5643 Jan, [facility] [place] [facility] [address] [id number] [place] [address]- 8565 Jan, [facility] [place] [facility] [address] [id number] [place] [address]- 8373 Jan, [facility] [place] [facility] [address] [id number] [place] [address]- 390[address] Jan, [facility] [place] [facility] [address] [id number] [place] [address]- 2546 Jan, [facility] [place] [facility] [address] [id number] [place] [address]- 1488 Jan, [facility] [place] [facility] [address] [id number] [place] [address]- 5962 Jan, [facility] [place] [facility] [address] [id number] [place] [address]- 8302 Jan, [facility] [place] [facility] [address] [id number] [place] [address]- 480[address] Jan, [facility] [place] [facility] [address] [id number] [place] [address]- 0070 Jan, [facility] [address] [id number] [place] [address]- 4173 Jan, [facility] [place] [facility] [address] [id number] [place] [address]- 3720 Dec, [facility] [place] [facility] [address] [id number] [place] [address] 2546 Dec, [facility] [place] [facility] [address] [id number] [place] [address]- 2642 Nov, [facility] [place] [facility] [address] [id number] [place] [address]- 7511 Nov, [facility] [place] [facility] [address] [id number] [place] [address]- 3296 October, [facility] [address] [id number] [place] [address] 3561 October, [facility] [place] [facility] [address] [id number] [place] [address]- 7711 October, [facility] [place] [facility] [address] [id number] [place] [address]- 6203 Sep, [facility] [place] [facility] [address] [id number] [place] [address]- 1128 Sep, [facility] [place] [facility] [address] [id number] [place] [address]- 6279 30 Aug, 2011 [facility] [place] [facility] [address] [id number] [place] [address]- 6424 Aug, [facility] [place] [facility] [address] [id number] [place] [address]- 6569 Aug, [facility] [place] [facility] [address] [id number] [place] [address]- 8542 Aug, [facility] [place] [facility] [address] [id number] [place] [address]- 8237 Aug, [facility] [place] [facility] [address] [id number] [place] [address]- 5841 14 Aug, 2011 [facility] [place] [facility] [address] [id number] [place] [address] 07 Aug, 2011 [facility] [place] [facility] [address] [id number] [place] [address] Jul, [facility] [place] [facility] [address] [id number] [place] [address] Jul, [facility] [place] [facility] [address] [id number] [place] [address] Jul, [facility] [place] [facility] [address] [id number] [place] [address] May, [facility] [place] [facility] [address] [id number] [place] [address] May, [facility] [place] [facility] [address] [id number] [place] [address] May, [facility] [place] [facility] [address] [id number] [place] [address] May, [facility] [place] [facility] [address] [id number] [place] [address] May, [facility] [place] [facility] [address] [id number] [place] [address] May, [facility] [place] [facility] [address] [id number] [place] [address] May, [facility] [place] [facility] [address] [id number] [place] [address] Mar, [facility] [place] [facility] [address] [id number] [place] [address] Mar, [facility] [place] [facility] [address] [id number] [place] [address] Mar, [facility] [place] [facility] [address] [id number] [address] Mar, [facility] [address] [facility] [id number] [place] [address] Mar, [facility] [address] [facility] [id number] [place] [address] Mar, [facility] [id number] [address] Jan, [facility] [address] [facility] [id number] [place] May, [facility] [address] [facility] [id number] [place] [address] May, [facility] [id number] [address] May, [facility] [id number] [address] May, [facility] [id number] [address] May, [facility] [id number] [address] May, [facility] [id number] [address] Mar, [facility] [id number] [address] Sep, IMMUNIZATIONS No Known Immunizations SOCIAL HISTORY Never Assessed REASON FOR VISIT Controlled Med Refill PLAN OF CARE VITAL SIGNS MEDICATIONS Medication Instructions Dosage Frequency Start Date End Date Duration Status Xanax 1 MG Orally 3 times a day 1 tablet 8h 26 Aug, 2014 14 days Active Hydrocodone-Acetaminophen 7.5-325 MG Orally twice a day 1 tablet as needed 12h 10 Nov, 2016 14 days Active RESULTS No Results PROCEDURES [...]
--- OUTSIDE RECORDS SUMMARY | 2017-10-07 21:31 | XMS REPORT ---
Author Author MARIA DE JESUS MERCADO [facility] Address [address] [place] [address] Care Team Providers Care School Bus Operator Name Role Phone MARIA DE JESUS MERCADO Unavailable PROBLEMS Type Condition ICD9-CM Code [id number] Code Onset Dates Condition Status SNOMED Code Problem Gastroesophageal reflux disease without esophagitis K21.9 Active 081112006 Problem Acute pain of left shoulder M25.512 Active 47651040 Problem Seasonal allergic rhinitis due to pollen J30.1 Active 25737981 Problem Forgetfulness R68.89 Active 52655379 Problem Headache R51 Active 48345566 Problem Anxiety F41.9 Active 37386781 Problem Back pain with right-sided radiculopathy M54.10 Active 891806162 Problem Lumbago with sciatica, right side M54.41 Active 14673904 Problem Lumbago with sciatica, left side M54.42 Active 04336363 Problem Other chronic pain G89.29 Active 08508823 Problem Mild persistent asthma with acute exacerbation J45.31 Active 118081480307019 Problem Migraine without aura and without status migrainosus, not intractable G43.009 Active 455009939 Problem Intractable migraine with aura with status migrainosus G43.111 Active 566836789 ALLERGIES No Information SOCIAL HISTORY Never Assessed PLAN OF CARE VITAL SIGNS MEDICATIONS Unknown Medications RESULTS Name Result Date Reference Range eGFR (GLOMERULAR FILTRATION RATE) 2016-09-24 Creatinine, Serum 0.81 0.57-1.00 eGFR If NonAfricn Am 94 >59 eGFR If Africn Am 108 >59 CBC 2016-09-24 WBC 7.4 3.4-10.8 RBC 4.37 3.77-5.28 Hemoglobin 14.1 11.1-15.9 Hematocrit 40.6 34.0-46.6 MCV 93 79-97 MCH 32.3 26.6-33.0 MCHC 34.7 31.5-35.7 RDW 13.6 12.3-15.4 Platelets 394 150-379 Neutrophils 52 Lymphs 36 Monocytes 10 Eos 2 Basos 0 Neutrophils (Absolute) 3.8 1.4-7.0 Lymphs (Absolute) 2.6 0.7-3.1 Monocytes(Absolute) 0.8 0.1-0.9 Eos (Absolute) 0.2 0.0-0.4 Baso (Absolute) 0.0 0.0-0.2 Immature Granulocytes 0 Immature Grans (Abs) 0.0 0.0-0.1 CRP 2016-09-24 C-Reactive Protein, Quant 0.7 0.0-4.9 PROCEDURES Procedure Date Ordered Result Body [facility], 2016 VENIPUNCT, ROUTINE* September 24, 2016 IMMUNIZATIONS No Known Immunizations MEDICAL (GENERAL) [...]
--- OUTSIDE RECORDS SUMMARY | 2017-10-07 21:32 | XMS REPORT ---
Author Author MARIA DE JESUS MERCADO [facility] Address [address] [place] [address] Care Team Providers Care Olive Brine Tester Name Role Phone MARIA DE JESUS MERCADO Unavailable PROBLEMS Type Condition ICD9-CM Code [id number] Code Onset Dates Condition Status SNOMED Code Problem Gastroesophageal reflux disease without esophagitis K21.9 Active 653988660 Problem Acute pain of left shoulder M25.512 Active 75852503 Problem Seasonal allergic rhinitis due to pollen J30.1 Active 46288091 Problem Forgetfulness R68.89 Active 28737085 Problem Headache R51 Active 65729307 Problem Anxiety F41.9 Active 02910055 Problem Back pain with right-sided radiculopathy M54.10 Active 570821530 Problem Lumbago with sciatica, right side M54.41 Active 35801721 Problem Lumbago with sciatica, left side M54.42 Active 49768508 Problem Other chronic pain G89.29 Active 81696493 Problem Mild persistent asthma with acute exacerbation J45.31 Active 952780363114699 Problem Migraine without aura and without status migrainosus, not intractable G43.009 Active 440817080 Problem Intractable migraine with aura with status migrainosus G43.111 Active 087504386 ALLERGIES No Information SOCIAL HISTORY Never Assessed PLAN OF CARE VITAL SIGNS MEDICATIONS Medication Instructions Dosage Frequency Start Date End Date Duration Status Clonidine HCl 0.1 MG Orally 2 times a day 1 tablet 12h Aug, 14 days Active RESULTS No Results [...]
--- OUTSIDE RECORDS SUMMARY | 2017-10-07 21:32 | XMS REPORT ---
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 [place] [facility] [address] [id number] [place] [address]- 5493 Jan, [facility] [place] [facility] [address] [id number] [place] [address]- 5027 Jan, [facility] [place] [facility] [address] [id number] [place] [address]- 9600 Jan, [facility] [place] [facility] [address] [id number] [place] [address]- 2078 Dec, [facility] [place] [facility] [address] [id number] [place] [address]- 9656 Dec, [facility] [place] [facility] [address] [id number] [place] [address]- 5196 Dec, [facility] [place] [facility] [address] [id number] [place] [address]- 8677 Dec, [facility] [place] [facility] [address] [id number] [place] [address]- 4189 Dec, [facility] [place] [facility] [address] [id number] [place] [address]- 0245 Dec, [facility] [place] [facility] [address] [id number] [place] [address]- 4906 Dec, [facility] [place] [facility] [address] [id number] [place] [address]- 8800 11 Dec, 2013 [facility] [place] [facility] [address] [id number] [place] [address]- 6184 Dec, [facility] [place] [facility] [address] [id number] [place] [address]- 9911 October, [facility] [place] [facility] [address] [id number] [place] [address]- 0220 October, [facility] [place] [facility] [address] [id number] [place] [address]- 7580 Sep, [facility] [place] [facility] [address] [id number] [place] [address]- 6490 Sep, [facility] [place] [facility] [address] [facility] [id number] [place] [address]- 4220 Aug, [facility] [place] [facility] [address] [facility] [id number] [place] [address]- 6333 Aug, [facility] [place] [facility] [address] [facility] [id number] [place] [address]- 2108 Aug, [facility] [place] [facility] [address] [id number] [place] [address]- 3172 Aug, [facility] [place] [facility] [address] [facility] [id number] [place] [address]- 4679 17 Aug, 2013 [facility] [place] [facility] [address] [facility] [id number] [place] [address]- 0662 17 Aug, 2013 [facility] [place] [facility] [address] [facility] [id number] [place] [address]- 2288 14 Aug, 2013 [facility] [place] [facility] [address] [id number] [place] [address]- 7030 07 Aug, 2013 [facility] [place] [facility] [address] [facility] [id number] [place] [address]- 9467 07 Aug, 2013 [facility] [place] [facility] [address] [facility] [id number] [place] [address]- 8894 Aug, [facility] [address] [id number] [place] [address]- 5063 Aug, [facility] [place] [facility] [address] [id number] [place] [address]- 1985 Jul, [facility] [place] [facility] [address] [id number] [place] [address]- 0952 Jul, [facility] [place] [facility] [address] [id number] [place] [address]- 7272 May, [facility] [place] [facility] [address] [id number] [place] [address]- 8745 May, [facility] [place] [facility] [address] [id number] [place] [address]- 1527 May, [facility] [place] [facility] [address] [id number] [place] [address]- 5088 May, [facility] [place] [facility] [address] [id number] [place] [address]- 7661 May, [facility] [place] [facility] [address] [id number] [place] [address]- 9795 May, [facility] [place] [facility] [address] [id number] [place] [address]- 7116 May, [facility] [place] [facility] [address] [id number] [place] [address]- 8968 May, [facility] [place] [facility] [address] [id number] [place] [address]- 0396 May, [facility] [place] [facility] [address] [id number] [place] [address]- 2849 May, [facility] [place] [facility] [address] [id number] [place] [address]- 7247 May, [facility] [place] [facility] [address] [id number] [place] [address]- 4615 May, [facility] [place] [facility] [address] [id number] [place] [address]- 5605 20 May, 2013 [facility] [address] [id number] [place] [address]- 1244 20 May, 2013 [facility] [place] [facility] [address] [id number] [place] [address]- 2912 19 May, 2013 [facility] [place] [facility] [address] [id number] [place] [address]- 5130 19 May, 2013 [facility] [place] [facility] [address] [id number] [place] [address]- 4783 18 May, 2013 [facility] [place] [facility] [address] [id number] [place] [address]- 7253 18 May, 2013 [facility] [place] [facility] [address] [id number] [place] [address]- 8737 16 May, 2013 [facility] [place] [facility] [address] [id number] [place] [address]- 5047 16 May, 2013 [facility] [place] [facility] [address] [id number] [place] [address]- 8210 May, [facility] [place] [facility] [address] [id number] [place] [address]- 8562 May, [facility] [place] [facility] [address] [facility] [id number] [place] [address]- 1307 May, [facility] [place] [facility] [address] [id number] [place] [address]- 4003 May, [facility] [place] [facility] [address] [id number] [place] [address]- 7089 May, [facility] [place] [facility] [address] [id number] [place] [address]- 5011 May, [facility] [place] [facility] [address] [id number] [place] [address]- 4201 May, [facility] [place] [facility] [address] [id number] [place] [address]- 8083 07 May, 2013 [facility] [place] [facility] [address] [id number] [place] [address]- 3963 May, [facility] [place] [facility] [address] [id number] [place] [address]- 6814 May, [facility] [place] [facility] [address] [id number] [place] [address]- 2836 Mar, [facility] [place] [facility] [address] [id number] [place] [address]- 1983 Mar, [facility] [place] [facility] [address] [id number] [place] [address]- 7346 Mar, [facility] [place] [facility] [address] [id number] [place] [address]- 2070 Mar, [facility] [place] [facility] [address] [id number] [place] [address]- 2585 Mar, [facility] [place] [facility] [address] [id number] [place] [address]- 7742 Mar, [facility] [place] [facility] [address] [id number] [place] [address]- 9262 Mar, [facility] [place] [facility] [address] [id number] [place] [address]- 4847 Mar, [facility] [place] [facility] [address] [id number] [place] [address]- 0320 Mar, [facility] [place] [facility] [address] [id number] [place] [address]- 8206 Mar, [facility] [place] [facility] [address] [id number] [place] [address]- 6670 Mar, [facility] [place] [facility] [address] [id number] [place] [address]- 1449 Mar, [facility] [place] [facility] [address] [id number] [place] [address]- 5830 Mar, [facility] [place] [facility] [address] [id number] [place] [address]- 2700 23 Mar, 2013 [facility] [place] [facility] [address] [id number] [place] [address]- 5230 22 Mar, 2013 [facility] [place] [facility] [address] [id number] [place] [address]- 1852 Mar, [facility] [place] [facility] [address] [id number] [place] [address]- 5580 Mar, [facility] [place] [facility] [address] [id number] [place] [address]- 4250 18 Mar, 2013 [facility] [place] [facility] [address] [id number] [place] [address]- 5981 18 Mar, 2013 [facility] [place] [facility] [address] [id number] [place] [address]- 7603 18 Mar, 2013 [facility] [place] [facility] [address] [id number] [place] [address]- 0168 18 Mar, 2013 [facility] [place] [facility] [address] [id number] [place] [address]- 1699 14 Mar, 2013 [facility] [place] [facility] [address] [id number] [place] [address]- 9752 14 Mar, 2013 [facility] [place] [facility] [address] [id number] [place] [address]- 2585 10 Mar, 2013 [facility] [place] [facility] [address] [id number] [address]- 3103 18 Mar, 2013 [facility] [place] [facility] [address] [id number] [place] [address]- 2746 12 Mar, 2013 [facility] [place] [facility] [address] [id number] [place] [address]- 8167 Mar, [facility] [place] [facility] [address] [id number] [place] [address]- 0658 Jan, [facility] [place] [facility] [address] [id number] [place] [address]- 4700 October, [facility] [place] [facility] [address] [id number] [place] [address]- 1599 22 Sep, 2012 [facility] [address] [id number] [place] [address]- 4326 15 Sep, 2012 [facility] [place] [facility] [address] [id number] [place] [address] 2546 07 Aug, 2012 [facility] [address] [id number] [place] [address] 2546 06 Aug, 2012 [facility] [address] [id number] [place] [address] 2545 04 Aug, 2012 [facility] [address] [id number] [place] [address]- 5590 17 Jul, 2012 [facility] [address] [id number] [place] [address]- 0610 19 May, 2012 [facility] [address] [id number] [place] [address] 19 May, 2012 [facility] [address] [id number] [place] [address] 18 May, 2012 [facility] [address] [facility] [id number] [place] [address] 18 May, 2012 [facility] [address] [facility] [id number] [place] [address] 19 Mar, 2012 [facility] [place] [facility] [address] [id number] [place] [address] 254 19 Mar, 2012 [facility] [address] [id number] [place] [address] 2548 16 Mar, 2012 [facility] [place] [facility] [address] [id number] [place] [address] 25 Mar, 2012 [facility] [place] [facility] [address] [id number] [place] [address] 2546 19 Sep2011 [facility] [place] [facility] [address] [id number] [place] [id number] [address] 13 Mar, 2012 [facility] [place] [facility] [address] [id number] [place] [address] 07 Mar, 2012 [facility] [place] [facility] [address] [id number] [place] [address] Jan, [facility] [place] [facility] [address] [id number] [place] [address] Jan, [facility] [place] [facility] [address] [id number] [place] [address] Jan, [facility] [place] [facility] [address] [id number] [place] [address] Jan, [facility] [place] [facility] [address] [id number] [place] [address] Jan, [facility] [place] [facility] [address] [id number] [place] [address] Jan, [facility] [place] [facility] [address] [id number] [place] [address]- [address] Jan, [facility] [place] [facility] [address] [id number] [place] [address] Jan, [facility] [place] [facility] [address] [id number] [place] [address] 15[address] Jan, [facility] [place] [facility] [address] [id number] [place] [address]- [address] Jan, [facility] [place] [facility] [address] [id number] [place] [address]- 8868 Jan, [facility] [place] [facility] [address] [id number] [place] [address]- 5760 Jan, [facility] [place] [facility] [address] [id number] [place] [address] 98[address] Jan, [facility] [place] [facility] [address] [id number] [place] [address] 6379 Jan, [facility] [place] [facility] [address] [id number] [place] [address] 8260 Jan, [facility] [address] [id number] [place] [address]- 0587 Jan, [facility] [place] [facility] [address] [id number] [place] [address]- 6925 Dec, [facility] [place] [facility] [address] [id number] [place] [address] 2546 Dec, [facility] [place] [facility] [address] [id number] [place] [address]- [address] Nov, [facility] [place] [facility] [address] [id number] [place] [address]- 7275 Nov, [facility] [place] [facility] [address] [id number] [place] [address] 1656 October, [facility] [address] [id number] [place] [address] 66[address] October, [facility] [place] [facility] [address] [id number] [place] [address] 8[address] October, [facility] [place] [facility] [address] [id number] [place] [address] Sep, [facility] [place] [facility] [address] [id number] [place] [address] Sep, [facility] [place] [facility] [address] [id number] [place] [address]- 9140 30 Aug, 2011 [facility] [place] [facility] [address] [id number] [place] [address] Aug, [facility] [place] [facility] [address] [id number] [place] [address]- [address] Aug, [facility] [place] [facility] [address] [id number] [place] [address] 3[address] Aug, [facility] [place] [facility] [address] [id number] [place] [address]- 2946 Aug, [facility] [place] [facility] [address] [id number] [place] [address]- 7974 14 Aug, 2011 [facility] [place] [facility] [address] [id number] [place] [address]- 8982 07 Aug, 2011 [facility] [place] [facility] [address] [id number] [place] [address] Jul, [facility] [place] [facility] [address] [id number] [place] [address] 68[address] Jul, [facility] [place] [facility] [address] [id number] [place] [address] 0600 Jul, [facility] [place] [facility] [address] [id number] [place] [address] 4283 May, [facility] [place] [facility] [address] [id number] [place] [address]996 May, [facility] [place] [facility] [address] [id number] [place] [address] 8336 May, [facility] [place] [facility] [address] [id number] [place] [address]- 2861 May, [facility] [place] [facility] [address] [id number] [place] [address]- 2774 May, [facility] [place] [facility] [address] [id number] [place] [address]- 0277 May, [facility] [place] [facility] [address] [id number] [place] [address]- 3114 May, [facility] [place] [facility] [address] [id number] [place] [address]- 9030 Mar, [facility] [place] [facility] [address] [id number] [place] [address] 7116 Mar, [facility] [place] [facility] [address] [id number] [place] [address] 5660 Mar, [facility] [place] [facility] [address] [id number] [place] [address] Mar, [facility] [address] [id number] [address] Mar, [facility] [id number] [address] [address] Mar, [facility] [id number] [address] Jan, [facility] [id number] [address] [address] May, [facility] [id number] [address] 489[address] May, [facility] [id number] [address] May, [facility] [id number] [address] [address] May, [facility] [id number] [address] 7[address] May, [facility] [id number] [address] May, [facility] [id number] [address]68 Mar, [facility] [address] [id number] [address] [address] Sep, IMMUNIZATIONS No Known Immunizations SOCIAL HISTORY Never Assessed REASON FOR VISIT Lab results PLAN OF CARE VITAL SIGNS MEDICATIONS Unknown [...]
--- OUTSIDE RECORDS SUMMARY | 2017-10-07 21:33 | XMS REPORT ---
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 Trolley Car Operator Name Role Phone MARIA DE JESUS MERCADO Unavailable PROBLEMS Type Condition ICD9-CM Code GVB63-FN Code Onset Dates Condition Status SNOMED Code Problem Gastroesophageal reflux disease without esophagitis K21.9 Active 350226552 Problem Acute pain of left shoulder M25.512 Active 77196941 Problem Seasonal allergic rhinitis due to pollen J30.1 Active 97589875 Problem Forgetfulness R68.89 Active 56554769 Problem Headache R51 Active 61068582 Problem Anxiety F41.9 Active 06348522 Problem Back pain with right-sided radiculopathy M54.10 Active 858455432 Problem Lumbago with sciatica, right side M54.41 Active 55017924 Problem Lumbago with sciatica, left side M54.42 Active 86317170 Problem Other chronic pain G89.29 Active 20485409 Problem Mild persistent asthma with acute exacerbation J45.31 Active 981127031825857 Problem Migraine without aura and without status migrainosus, not intractable G43.009 Active 776750254 Problem Intractable migraine with aura with status migrainosus G43.111 Active 040738241 ALLERGIES Unknown Allergies SOCIAL HISTORY No smoking Hx information available PLAN OF CARE VITAL SIGNS MEDICATIONS Unknown Medications RESULTS Name Result Date Reference Range TEST, URINE (IN HOUSE) 2016-08-07 RESULTS Negative Lot # [id number] Control + Exp date PROCEDURES Procedure Date Ordered Related Diagnosis Body Site URINE TEST Aug 07, 2016 DEPO PROVERA (150 MG/ML) Aug 07, 2016 THER/PROPH/DIAG INJ, SC/IM Aug 07, 2016 IMMUNIZATIONS Vaccine Route Administration Date Status DEPO PROVERA (150 MG/ML) IM Intramuscular Aug 07, 2016 Administered
--- OUTSIDE RECORDS SUMMARY | 2017-10-07 21:33 | XMS REPORT ---
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 [facility] [address] [id number] [place] [address]- 2854 24 Mar, 2014 [facility] [place] [facility] [address] [id number] [place] [address]- 9486 08 Mar, 2013 [facility] [place] [facility] [address] [id number] [place] [address]- 2543 08 Mar, 2013 [facility] [place] [facility] [address] [id number] [place] [address]- 1596 03 Mar, 2014 [facility] [place] [facility] [address] [id number] [place] 1106 Mar, 2013 [facility] [place] [facility] [address] [id number] [place] [address]- 6362 Jan, [facility] [place] [facility] [address] [id number] [place] [address]- 0499 Jan, [facility] [place] [facility] [address] [id number] [place] [address]- 5537 Jan, [facility] [place] [facility] [address] [id number] [place] [address]- 5237 Jan, [facility] [place] [facility] [address] [id number] [place] [address]- 2471 Jan, [facility] [place] [facility] [address] [id number] [place] [address]- 2865 Jan, [facility] [place] [facility] [address] [id number] [place] [address]- 5868 Jan, [facility] [place] [facility] [address] [id number] [place] [address]- 2063 Jan, [facility] [place] [facility] [address] [id number] [place] [address]- 7833 Jan, [facility] [place] [facility] [address] [id number] [place] [address]- 2613 Dec, [facility] [place] [facility] [address] [id number] [place] [address]- 9368 Dec, [facility] [place] [facility] [address] [id number] [place] [address]- 5954 Dec, [facility] [place] [facility] [address] [id number] [place] [address]- 8221 Dec, [facility] [place] [facility] [address] [id number] [place] [address]- 9671 Dec, [facility] [place] [facility] [address] [id number] [place] [address]- 5244 Dec, [facility] [place] [facility] [address] [id number] [place] [address]- 7758 Dec, [facility] [place] [facility] [address] [id number] [place] [address]- 1423 11 Dec, 2013 [facility] [place] [facility] [address] [id number] [place] [address]- 8473 Dec, [facility] [place] [facility] [address] [id number] [place] [address]- 1889 October, [facility] [place] [facility] [address] [id number] [place] [address]- 4443 October, [facility] [place] [facility] [address] [id number] [place] [address]- 6572 Sep, [facility] [place] [facility] [address] [id number] [place] [address] Sep, [facility] [place] [facility] [address] [facility] [id number] [place] [address] Aug, [facility] [place] [facility] [address] [facility] [address] [id number] [place] [address] Aug, [facility] [place] [facility] [address] [facility] [address] [id number] [place] [address] Aug, [facility] [place] [facility] [address] [id number] [place] [address] Aug, [facility] [place] [facility] [address] [facility] [id number] [place] [address] 17 Aug, 2013 [facility] [place] [facility] [address] [facility] [address] [id number] [place] [address] 17 Aug, 2013 [facility] [place] [facility] [address] [facility] [address] [id number] [place] [address] 14 Aug, 2013 [facility] [place] [facility] [address] [id number] [place] [address] 07 Aug, 2013 [facility] [place] [facility] [address] [facility] [id number] [place] [address] 07 Aug, 2013 [facility] [place] [facility] [address] [facility] [id number] [place] [address] Aug, [facility] [address] [id number] [place] [address] Aug, [facility] [place] [facility] [address] [id number] [place] [address] Jul, [facility] [place] [facility] [address] [id number] [place] [address] Jul, [facility] [place] [facility] [address] [id number] [place] [address] May, [facility] [place] [facility] [address] [id number] [place] [address] May, [facility] [place] [facility] [address] [id number] [place] [address] May, [facility] [place] [facility] [address] [id number] [place] [address]- [address] May, [facility] [place] [facility] [address] [id number] [place] [address]27 May, [facility] [place] [facility] [address] [id number] [place] [address] May, [facility] [place] [facility] [address] [id number] [place] [address] May, [facility] [place] [facility] [address] [id number] [place] [address] May, [facility] [place] [facility] [address] [id number] [address] May, [facility] [place] [facility] [address] [id number] [place] [address] May, [facility] [place] [facility] [address] [id number] [place] [address] May, [facility] [place] [facility] [address] [id number] [place] [address] May, [facility] [place] [facility] [address] [id number] [place] [address] 20 May, 2013 [facility] [address] [id number] [place] [address] 20 May, 2013 [facility] [place] [facility] [address] [id number] [place] [address] 19 May, 2013 [facility] [place] [facility] [address] [id number] [place] [address] 19 May, 2013 [facility] [place] [facility] [address] [id number] [place] [address] 18 May, 2013 [facility] [place] [facility] [address] [id number] [place] [address] 18 May, 2013 [facility] [place] [facility] [address] [id number] [place] [address] 16 May, 2013 [facility] [place] [facility] [address] [id number] [place] [address] 16 May, 2013 [facility] [place] [facility] [address] [id number] [place] [address] May, [facility] [place] [facility] [address] [id number] [place] [address] May, [facility] [place] [facility] [address] [facility] [id number] [place] [address] May, [facility] [place] [facility] [address] [id number] [place] [address]- [address] May, [facility] [place] [facility] [address] [id number] [address] May, [facility] [place] [facility] [address] [id number] [place] [address]- [address] May, [facility] [place] [facility] [address] [id number] [place] [address]- [address] May, [facility] [place] [facility] [address] [id number] [place] [address] 07 May, 2013 [facility] [place] [facility] [address] [id number] [place] [address] May, [facility] [place] [facility] [address] [id number] [place] [address]- [address] May, [facility] [place] [facility] [address] [id number] [place] [address]- [address] Mar, [facility] [place] [facility] [address] [id number] [place] [address] Mar, [facility] [place] [facility] [address] [id number] [place] [address]- [address] Mar, [facility] [place] [facility] [address] [id number] [place] [address]- [address] Mar, [facility] [place] [facility] [address] [id number] [place] [address]- [address] Mar, [facility] [place] [facility] [address] [id number] [place] [address]- [address] Mar, [facility] [place] [facility] [address] [id number] [place] [address]- [address] Mar, [facility] [place] [facility] [address] [id number] [place] [address]- [address] Mar, [facility] [place] [facility] [address] [id number] [place] [address]- [address] Mar, [facility] [place] [facility] [address] [id number] [place] [address] Mar, [facility] [place] [facility] [address] [id number] [place] [address] Mar, [facility] [place] [facility] [address] [id number] [place] [address] Mar, [facility] [place] [facility] [address] [id number] [place] [address] Mar, [facility] [place] [facility] [address] [id number] [place] [address] 23 Mar, 2013 [facility] [place] [facility] [address] [id number] [place] [address] 8729 22 Mar, 2013 [facility] [place] [facility] [address] [id number] [place] [address] 44[address] Mar, [facility] [place] [facility] [address] [id number] [place] [address] Mar, [facility] [place] [facility] [address] [id number] [place] [address] 18 Mar, 2013 [facility] [place] [facility] [address] [id number] [place] [address] 1658 18 Mar, 2013 [facility] [place] [facility] [address] [id number] [place] [address] 250[address] 18 Mar, 2013 [facility] [place] [facility] [address] [id number] [place] [address] 18 Mar, 2013 [facility] [place] [facility] [address] [id number] [place] [address] 5758 14 Mar, 2013 [facility] [place] [facility] [address] [id number] [place] [address] 14 Mar, 2013 [facility] [place] [facility] [address] [id number] [place] [address] 6289 10 Mar, 2013 [facility] [place] [facility] [address] [id number] [address] 18 Mar, 2013 [facility] [place] [facility] [address] [id number] [place] [address] 58[address] 12 Mar, 2013 [facility] [place] [facility] [address] [id number] [place] [address] Mar, [facility] [place] [facility] [address] [id number] [place] [address] 88[address] Jan, [facility] [place] [facility] [address] [id number] [place] [address] October, [facility] [place] [facility] [address] [id number] [place] [address] 7[address] 22 Sep, 2012 [facility] [address] [id number] [place] [address] 1396 15 Sep, 2012 [facility] [place] [facility] [address] [id number] [place] [address] 2546 07 Aug, 2012 [facility] [address] [id number] [place] [address] 2546 06 Aug, 2012 [facility] [address] [id number] [place] [address] 2549 04 Aug, 2012 [facility] [address] [id number] [place] [address] 3624 17 Jul, 2012 [facility] [address] [id number] [place] [address]124 19 May, 2012 [facility] [address] [id number] [place] [address]- 1110 19 May, 2012 [facility] [address] [id number] [place] [address] 4315 18 May, 2012 [facility] [address] [facility] [id number] [place] [address] 60[address] 18 May, 2012 [facility] [address] [facility] [id number] [place] [address]- 3864 19 Mar, 2012 [facility] [place] [facility] [address] [id number] [place] [address] 2547 19 Mar, 2012 [facility] [address] [id number] [place] [address] 2548 16 Mar, 2012 [facility] [place] [facility] [address] [id number] [place] [address]- 6666 25 Mar, 2012 [facility] [place] [facility] [address] [id number] [place] [address] 2546 19 Sep2011 [facility] [place] [facility] [address] [id number] [place] [address] [address] 13 Mar, 2012 [facility] [place] [facility] [address] [id number] [place] [address]- 2391 07 Mar, 2012 [facility] [place] [facility] [address] [id number] [place] [address]- [address] Jan, [facility] [place] [facility] [address] [id number] [place] [address]- [address]1 Jan, [facility] [place] [facility] [address] [id number] [place] [address]- 2674 Jan, [facility] [place] [facility] [address] [id number] [place] [address]- 5632 Jan, [facility] [place] [facility] [address] [id number] [place] [address]- 2841 Jan, [facility] [place] [facility] [address] [id number] [place] [address]- 4909 Jan, [facility] [place] [facility] [address] [id number] [place] [address]- 8970 Jan, [facility] [place] [facility] [address] [id number] [place] [address]- 9953 Jan, [facility] [place] [facility] [address] [id number] [place] [address]- 7932 Jan, [facility] [place] [facility] [address] [id number] [place] [address]- [address] Jan, [facility] [place] [facility] [address] [id number] [place] [address]- 1794 Jan, [facility] [place] [facility] [address] [id number] [place] [address]- 2716 Jan, [facility] [place] [facility] [address] [id number] [place] [address]- 0343 Jan, [facility] [place] [facility] [address] [id number] [place] [address]- 7642 Jan, [facility] [place] [facility] [address] [id number] [place] [address]- 2821 Jan, [facility] [address] [id number] [place] [address]- 3261 Jan, [facility] [place] [facility] [address] [id number] [place] [address]- 6906 Dec, [facility] [place] [facility] [address] [id number] [place] [address] 2546 Dec, [facility] [place] [facility] [address] [id number] [place] [address]- 7647 Nov, [facility] [place] [facility] [address] [id number] [place] [address]- 9410 Nov, [facility] [place] [facility] [address] [id number] [place] [address]- 5286 October, [facility] [address] [id number] [place] [address]- 7890 October, [facility] [place] [facility] [address] [id number] [place] [address]- 5310 October, [facility] [place] [facility] [address] [id number] [place] [address]- 2266 Sep, [facility] [place] [facility] [address] [id number] [place] [address]- 4798 Sep, [facility] [place] [facility] [address] [id number] [place] [address]- 8502 30 Aug, 2011 [facility] [place] [facility] [address] [id number] [place] [address]- 3519 Aug, [facility] [place] [facility] [address] [id number] [place] [address]- 3208 Aug, [facility] [place] [facility] [address] [id number] [place] [address]- 2441 Aug, [facility] [place] [facility] [address] [id number] [place] [address]- 6685 Aug, [facility] [place] [facility] [address] [id number] [place] [address]- 3610 14 Aug, 2011 [facility] [place] [facility] [address] [id number] [place] [address]- 1109 07 Aug, 2011 [facility] [place] [facility] [address] [id number] [place] [address]- 4178 Jul, [facility] [place] [facility] [address] [id number] [place] [address]- 0504 Jul, [facility] [place] [facility] [address] [id number] [place] [address]- 9097 Jul, [facility] [place] [facility] [address] [id number] [place] [address]- 2733 May, [facility] [place] [facility] [address] [id number] [place] [address]- 0272 May, [facility] [place] [facility] [address] [id number] [place] [address]- 8719 May, [facility] [place] [facility] [address] [id number] [place] [address]- 7333 May, [facility] [place] [facility] [address] [id number] [place] [address]- 4822 May, [facility] [place] [facility] [address] [id number] [place] [address]- 3904 May, [facility] [place] [facility] [address] [id number] [place] [address]- 8063 May, [facility] [place] [facility] [address] [id number] [place] [address]- 2796 Mar, [facility] [place] [facility] [address] [id number] [place] [address]- 5448 Mar, [facility] [place] [facility] [address] [id number] [place] [address]- 2060 Mar, [facility] [place] [facility] [address] [id number] [address]- 6686 Mar, [facility] [place] [address] [id number] [address]- 6987 Mar, [facility] [place] [id number] [address]- 5916 Mar, [facility] [place] [id number] [address]- 59[address] Jan, [facility] [place] [id number] [place] [address]- 1726 May, [facility] [place] [id number] [address]- 4493 May, [facility] [place] [id number] [place] [address]- 3895 May, [facility] [place] [id number] [place] [address]- 7706 May, [facility] [place] [id number] [place] [address]- 3787 May, [facility] [place] [id number] [address]- 0659 May, [facility] [place] [id number] [address]- 0556 Mar, [facility] [place] [address] [id number] [address]- 1538 Sep, IMMUNIZATIONS No Known Immunizations SOCIAL HISTORY Never Assessed REASON FOR VISIT Lab (walk-in) PLAN OF CARE VITAL SIGNS MEDICATIONS Unknown Medications RESULTS Name Result Date Reference Range MAGNESIUM, SERUM 2016-12-06 Magnesium, Serum 2.1 1.6-2.3 CMP 2016-12-06 Glucose, Serum 87 65-99 BUN 10 6-20 Creatinine, Serum 0.74 0.57-1.00 eGFR If NonAfricn Am 104 >59 eGFR If Africn Am 120 >59 BUN/Creatinine Ratio 14 9-23 Sodium, Serum 140 134-144 Potassium, Serum 4.5 3.5-5.2 Chloride, Serum 99 96-106 Carbon Dioxide, Total 23 18-29 Calcium, Serum 9.1 8.7-10.2 Protein, Total, Serum 6.9 6.0-8.5 Albumin, Serum 4.2 3.5-5.5 Globulin, Total 2.7 1.5-4.5 A/G Ratio 1.6 1.2-2.2 Bilirubin, Total 0.5 0.0-1.2 Alkaline Phosphatase, S 58 39-117 AST (SGOT) 19 0-40 ALT (SGPT) 18 0-32 UA LONG DIP (IN HOUSE) 2016-12-06 Lot # [id number] Exp date Oct 16 Clarity hazy Color yellow Odor no GLU Negative CATALINA Negative KET Negative SG 1.020 BLO ++ pH 6.5 Protein Negative URO 0.2 NIT Negative CRISTAL Negative Lot # [id number] Exp date Jan 2017 PROCEDURES Procedure Date Ordered Result Body Site LAB NOT BILLED BY [facility] December 06, 2016 VENIPUNCT, ROUTINE* December 06, 2016 URINALYSIS, AUTO, W/O SCOPE December 06, 2016 INSTRUCTIONS MEDICATIONS ADMINISTERED No Known Medications MEDICAL [...]
--- OUTSIDE RECORDS SUMMARY | 2017-10-07 21:34 | XMS REPORT ---
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 Role Phone MARIA DE JESUS MERCADO Unavailable PROBLEMS Type Condition ICD9-CM Code JPL36-MB Code Onset Dates Condition Status SNOMED Code Problem Gastroesophageal reflux disease without esophagitis K21.9 Active 856559595 Problem Acute pain of left shoulder M25.512 Active 42020527 Problem Seasonal allergic rhinitis due to pollen J30.1 Active 51782827 Problem Forgetfulness R68.89 Active 78446385 Problem Headache R51 Active 51809255 Problem Anxiety F41.9 Active 32236550 Problem Back pain with right-sided radiculopathy M54.10 Active 389916335 Problem Lumbago with sciatica, right side M54.41 Active 49760935 Problem Lumbago with sciatica, left side M54.42 Active 79203364 Problem Other chronic pain G89.29 Active 14376702 Problem Mild persistent asthma with acute exacerbation J45.31 Active 016417230092914 Problem Migraine without aura and without status migrainosus, not intractable G43.009 Active 968668990 Problem Intractable migraine with aura with status migrainosus G43.111 Active [id number] ALLERGIES Unknown Allergies SOCIAL HISTORY No smoking Hx information available PLAN OF CARE VITAL SIGNS MEDICATIONS Unknown Medications RESULTS No Results PROCEDURES No Known procedures IMMUNIZATIONS No Known Immunizations
--- OUTSIDE RECORDS SUMMARY | 2017-10-07 21:35 | XMS REPORT ---
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 [id number] [place] [address]- 9503 Jan, [facility] [place] [facility] [address] [id number] [place] [address]- 8712 Jan, [facility] [place] [facility] [address] [id number] [place] [address]- 1694 Jan, [facility] [place] [facility] [address] [id number] [place] [address]- 1261 Jan, [facility] [place] [facility] [address] [id number] [place] [address]- 4218 Jan, [facility] [place] [facility] [address] [id number] [place] [address]- 6277 Jan, [facility] [place] [facility] [address] [id number] [place] [address]- 2757 Dec, [facility] [place] [facility] [address] [id number] [place] [address]- 8275 Dec, [facility] [place] [facility] [address] [id number] [place] [address]- 6198 Dec, [facility] [place] [facility] [address] [id number] [place] [address]- 9860 Dec, [facility] [place] [facility] [address] [id number] [place] [address]- 3097 Dec, [facility] [place] [facility] [address] [id number] [place] [address]- 7155 Dec, [facility] [place] [facility] [address] [id number] [place] [address]- 7578 Dec, [facility] [place] [facility] [address] [id number] [place] [address]- 0284 Dec, [facility] [place] [facility] [address] [id number] [place] [address]- 1536 Dec, [facility] [place] [facility] [address] [id number] [place] [address]- 3837 October, [facility] [place] [facility] [address] [id number] [place] [address]- 1869 October, [facility] [place] [facility] [address] [id number] [place] [address]- 0885 Sep, [facility] [place] [facility] [address] [id number] [place] [address]- 8051 Sep, [facility] [place] [facility] [address] [id number] [place] [address]- 8826 Aug, [facility] [place] [facility] [address] [id number] [place] [address]- 8094 Aug, [facility] [place] [facility] [address] [id number] [place] [address]- 1693 Aug, [facility] [place] [facility] [address] [id number] [place] [address]- 2865 Aug, [facility] [place] [facility] [address] [id number] [place] [address]- 4240 17 Aug, 2013 [facility] [place] [facility] [address] [id number] [place] [address]- 9716 17 Aug, 2013 [facility] [place] [facility] [address] [id number] [place] [address]- 7096 14 Aug, 2013 [facility] [place] [facility] [address] [id number] [place] [address]- 2546 07 Aug, 2013 [facility] [place] [facility] [address] [id number] [place] [address]- 7066 Aug, [facility] [place] [facility] [address] [id number] [place] [address]- 7296 Aug, [facility] [place] [facility] [address] [id number] [place] 4986 Aug, [facility] [place] [facility] [address] [facility] [id number] [place] 1418 Jul, [facility] [place] [facility] [address] [id number] [place] [address]- 1453 Jul, [facility] [place] [facility] [address] [id number] [place] [address]- 6005 May, [facility] [place] [facility] [address] [id number] [place] [address]- 1262 May, [facility] [place] [facility] [address] [id number] [place] [address]- 3396 May, [facility] [place] [facility] [address] [id number] [place] [address]- 2293 May, [facility] [place] [facility] [address] [id number] [place] [address]- 8926 May, [facility] [place] [facility] [address] [facility] [id number] [place] [address]- 5728 May, [facility] [place] [facility] [address] [id number] [place] [address]- 3840 May, [facility] [place] [facility] [address] [id number] [place] [address]- 3348 May, [facility] [place] [facility] [address] [id number] [place] [address]- 0321 May, [facility] [place] [facility] [address] [facility] [id number] [place] [address]- 6371 May, [facility] [place] [facility] [address] [facility] [id number] [place] [address]- 3132 May, [facility] [place] [facility] [address] [id number] [place] [address]- 3148 20 May, 2013 [facility] [address] [id number] [place] [address]- 0526 May, [facility] [address] [id number] [place] [address]- 2171 20 May, 2013 [facility] [address] [id number] [place] [address]- 9388 May, [facility] [address] [id number] [place] [address]- 6262 19 May, 2013 [facility] [address] [id number] [place] [address]- 3009 18 May, 2013 [facility] [address] [id number] [place] [address]- 8116 18 May, 2013 [facility] [address] [id number] [place] [address]- 5247 16 May, 2013 [facility] [address] [id number] [place] [address]- 6063 16 May, 2013 [facility] [address] [id number] [place] [address]- 8917 May, [facility] [address] [id number] [place] [address]- 5155 May, [facility] [place] [facility] [address] [id number] [place] [address]- 1597 May, [facility] [address] [id number] [place] [address]- 5897 May, [facility] [place] [facility] [address] [id number] [place] [address]- 3235 May, [facility] [place] [facility] [address] [id number] [place] [address]- 8422 May, [facility] [place] [facility] [address] [id number] [place] [address]- 4217 May, [facility] [place] [facility] [address] [id number] [place] [address]- 8437 May, [facility] [place] [facility] [address] [id number] [place] [address]- 6945 May, [facility] [place] [facility] [address] [id number] [place] [address]- 7662 May, [facility] [place] [facility] [address] [id number] [place] [address]- 6136 Mar, [facility] [place] [facility] [address] [id number] [place] [address]- 2101 Mar, [facility] [place] [facility] [address] [id number] [place] [address]- 0911 Mar, [facility] [place] [facility] [address] [id number] [place] [address]- 9686 Mar, [facility] [place] [facility] [address] [id number], [place] [address]- 0468 30 Mar, 2013 [facility] [place] [facility] [address] [id number], [place] [address]- 5643 Mar, [facility] [place] [facility] [address] [id number], [place] [address]- 0464 Mar, [facility] [place] [facility] [address] [id number], [place] [address]- 6700 Mar, [facility] [place] [facility] [address] [id number], [place] [address]- 0412 29 Mar, 2013 [facility] [place] [facility] [address] [id number], [place] [address]- 2353 Mar, [facility] [place] [facility] [address] [id number], [place] [address]- 9828 Mar, [facility] [place] [facility] [address] [id number], [place] [address]- 9145 24 Mar, 2013 [facility] [place] [facility] [address] [id number], [place] [address]- 2186 24 Mar, 2013 [facility] [place] [facility] [address] [id number] [place] [address]- 3107 23 Mar, 2013 [facility] [place] [facility] [address] [id number] [place] [address]- 8852 22 Mar, 2013 [facility] [place] [facility] [address] [id number] [place] [address]- 1396 21 Mar, 2013 [facility] [place] [facility] [address] [id number] [place] [address]- 8578 21 Mar, 2013 [facility] [place] [facility] [address] [id number] [place] [address]- 5460 18 Mar, 2013 [facility] [place] [facility] [address] [id number] [place] [address]- 0042 18 Mar, 2013 [facility] [place] [facility] [address] [id number] [place] [address]- 1840 18 Mar, 2013 [facility] [place] [facility] [address] [id number] [place] [address]- 0051 18 Mar, 2013 [facility] [place] [facility] [address] [id number] [place] [address]- 8407 14 Mar, 2013 [facility] [place] [facility] [address] [id number] [place] [address]- 0630 14 Mar, 2013 [facility] [place] [facility] [address] [id number], [place] [address]- 2618 10 Mar, 2013 [facility] [place] [facility] [address] [id number], [place] [address]- 6234 18 Mar, 2013 [facility] [place] [facility] [address] [id number] [place] [address]- 2230 12 Mar, 2013 [facility] [place] [facility] [address] [id number] [place] [address]- 2122 11 Mar, 2013 [facility] [place] [facility] [address] [id number] [place] [address]- 3401 26 Jan, 2013 [facility] [place] [facility] [address] [id number] [place] [address]- 8088 October, [facility] [place] [facility] [address] [id number] [place] [address]- 8512 Sep, [facility] [place] [facility] [address] [id number] [place] [address]- 2808 Sep, [facility] [place] [facility] [address] [id number] [place] [address]- 9819 07 Aug, 2012 [facility] [place] [facility] [address] [id number] [place] [address]- 6967 Aug, [facility] [place] [facility] [address] [id number] [place] [address], [place] [address]- 7894 04 Aug, 2012 [facility] [place] [facility] [address] [id number] [place] 9059 Jul, [facility] [place] [facility] [address] [id number] [place] [address]- 2993 May, [facility] [place] [facility] [address] [id number] [place] [address]- 5426 May, [facility] [place] [facility] [address] [facility] [id number] [place] [address]- 9793 18 May, 2012 [facility] [place] [facility] [address] [id number] [place] [address]- 6897 18 May, 2012 [facility] [place] [facility] [address] [id number] [place] [address]- 5400 Mar, [facility] [place] [facility] [address] [id number] [place] 4855 19 Mar, 2012 [facility] [place] [facility] [address] [id number] [place] [address]- 5456 16 Mar, 2012 [facility] [place] [facility] [address] [id number] [place] [address] 25 Mar, 2012 [facility] [place] [facility] [address] [id number] [place] [address] 19 Mar, 2012 [facility] [place] [facility] [address] [id number] [place] [address] 13 Mar, 2012 [facility] [place] [facility] [address] [id number] [place] [address] Mar, [facility] [place] [facility] [address] [id number] [place] [address] 30 Jan, 2012 [facility] [place] [facility] [address] [id number] [place] [address] Jan, [facility] [place] [facility] [address] [id number] [place] [address] Jan, [facility] [place] [facility] [address] [id number] [place] [address] Jan, [facility] [place] [facility] [address] [id number] [place] [address] Jan, [facility] [place] [facility] [address] [id number] [place] [address] Jan, [facility] [place] [facility] [address] [id number] [place] [address] Jan, [facility] [place] [facility] [address] [id number] [place] [address] Jan, [facility] [place] [facility] [address] [id number] [place] [address] Jan, [facility] [place] [facility] [address] [id number] [place] [address] Jan, [facility] [place] [facility] [address] [id number] [place] [address] Jan, [facility] [place] [facility] [address] [id number] [place] [address] Jan, [facility] [place] [facility] [address] [id number] [place] [address] Jan, [facility] [place] [facility] [address] [id number] [place] [address] Jan, [facility] [address] [id number] [place] [address] Jan, [facility] [address] [id number] [place] [address] Jan, [facility] [address] [id number] [place] [address] Dec, [facility] [address] [id number] [place] [address] Dec, [facility] [address] [id number] [place] [address] Nov, [facility] [address] [id number] [place] [address] Nov, [facility] [address] [id number] [place] [address] October, [facility] [address] [id number] [place] [address] October, [facility] [address] [id number] [place] [address] October, [facility] [address] [id number] [place] [address] Sep, [facility] [address] [id number] [place] [address] Sep, [facility] [address] [id number] [place] [address] 30 Aug, 2011 [facility] [place] [facility] [address] [id number] [place] [address] 28 Aug, 2011 [facility] [place] [facility] [address] [id number] [place] [address] Aug, [facility] [address] [id number] [place] [address] 1464 Aug, [facility] [place] [facility] [address] [id number] [place] [address] 12 Aug, 2011 [facility] [place] [facility] [address] [id number] [place] [address] 69[address] 14 Aug, 2011 [facility] [place] [facility] [address] [id number] [place] [address] 1396 07 Aug, 2011 [facility] [place] [facility] [address] [id number] [place] [address] Jul, [facility] [place] [facility] [address] [id number] [place] [address] Jul, [facility] [place] [facility] [address] [id number] [place] [address] Jul, [facility] [place] [facility] [address] [id number] [place] [address] 28 May, 2011 [facility] [place] [facility] [address] [id number] [place] [address] 28 May, 2011 [facility] [place] [facility] [address] [id number] [place] [address] May, [facility] [place] [facility] [address] [id number], [place] [address] May, [facility] [place] [facility] [address] [id number], [place] [address] May, [facility] [place] [facility] [address] [id number], [place] [address] May, [facility] [place] [facility] [address] [id number] [place] [address] May, [facility] [place] [facility] [address] [id number], [place] [address] 25 Mar, 2011 [facility] [place] [facility] [address] [id number], [place] [address] Mar, [facility] [place] [facility] [address] [id number], [place] [address] Mar, [facility] [id number], [place] [address] Mar, [facility] [id number], [place] [address] Mar, [facility] [id number], [place] [address] Mar, [facility] [id number] [place] [address] Jan, [facility] [id number] [place] [address]- [address] May, [facility] [id number] [place] [address]44- 6424 May, [facility] [id number] [place] [address] May, [facility] [id number], [place] [address] May, [facility] [id number] [place] [address] May, [facility] [id number], [place] [address] May, [facility] [id number], [place] [address] Mar, [facility] [id number], [place] [address] Sep, IMMUNIZATIONS No Known Immunizations SOCIAL HISTORY Never Assessed REASON FOR VISIT Controlled Med Refill PLAN OF CARE VITAL SIGNS MEDICATIONS Medication Instructions Dosage Frequency Start Date End Date Duration Status Xanax 1 MG Orally 3 times a day 1 tablet 8h 26 Aug, 2014 14 days Active Hydrocodone-Acetaminophen 7.5-325 MG Orally twice a day 1 tablet as needed 12h 25 Nov, 2016 14 days Active RESULTS No [...]
--- OUTSIDE RECORDS SUMMARY | 2017-10-07 21:37 | XMS REPORT ---
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 Operator Name Role Phone MARIA DE JESUS MERCADO Unavailable PROBLEMS Type Condition ICD9-CM Code [id number] Code Onset Dates Condition Status SNOMED Code Problem Gastroesophageal reflux disease without esophagitis K21.9 Active 380563999 Problem Acute pain of left shoulder M25.512 Active 28834817 Problem Seasonal allergic rhinitis due to pollen J30.1 Active 44672804 Problem Forgetfulness R68.89 Active 72613325 Problem Headache R51 Active 45294301 Problem Anxiety F41.9 Active 91272867 Problem Back pain with right-sided radiculopathy M54.10 Active 160402981 Problem Lumbago with sciatica, right side M54.41 Active 16935123 Problem Lumbago with sciatica, left side M54.42 Active 65482615 Problem Other chronic pain G89.29 Active 85712667 Problem Mild persistent asthma with acute exacerbation J45.31 Active 719857811871128 Problem Migraine without aura and without status migrainosus, not intractable G43.009 Active 812947820 Problem Intractable migraine with aura with status migrainosus G43.111 Active 582310194 ALLERGIES Unknown Allergies SOCIAL HISTORY No smoking Hx information available PLAN OF CARE VITAL SIGNS MEDICATIONS Medication Instructions Dosage Frequency Start Date End Date Duration Status Xanax 1 MG Orally 4 times a day 1 tablet as needed for anxiety 6h Aug, 28 days Active RESULTS No Results PROCEDURES No Known procedures IMMUNIZATIONS No Known Immunizations
--- OUTSIDE RECORDS SUMMARY | 2017-10-07 21:37 | XMS REPORT ---
Author Author MARIA DE JESUS MERCADO [facility] Address [address] [place] [address] Care Team Providers Care Aerial Lineman Name Role Phone MARIA DE JESUS MERCADO Unavailable PROBLEMS Type Condition ICD9-CM Code [id number] Code Onset Dates Condition Status SNOMED Code Problem Gastroesophageal reflux disease without esophagitis K21.9 Active 278627788 Problem Acute pain of left shoulder M25.512 Active 33183943 Problem Seasonal allergic rhinitis due to pollen J30.1 Active 69474615 Problem Forgetfulness R68.89 Active 49759443 Problem Headache R51 Active 09882525 Problem Anxiety F41.9 Active 79544682 Problem Back pain with right-sided radiculopathy M54.10 Active 102893563 Problem Lumbago with sciatica, right side M54.41 Active 60428025 Problem Lumbago with sciatica, left side M54.42 Active 33566275 Problem Other chronic pain G89.29 Active 40559317 Problem Mild persistent asthma with acute exacerbation J45.31 Active 695972747380738 Problem Migraine without aura and without status migrainosus, not intractable G43.009 Active 122953162 Problem Intractable migraine with aura with status migrainosus G43.111 Active 958680204 ALLERGIES Unknown Allergies SOCIAL HISTORY No smoking Hx information available PLAN OF CARE VITAL SIGNS MEDICATIONS Unknown Medications RESULTS No Results PROCEDURES No Known procedures IMMUNIZATIONS No Known Immunizations
--- OUTSIDE RECORDS SUMMARY | 2017-10-07 21:37 | XMS REPORT ---
Author Author MARIA DE JESUS MERCADO Organization [facility] Address [address] [place] [address] Care Team Providers Care Hearing Aid Specialist Name Role Phone MARIA DE JESUS MERCADO Unavailable PROBLEMS Type Condition ICD9-CM Code CZC84-[id number] Code Onset Dates Condition Status SNOMED Code Problem Gastroesophageal reflux disease without esophagitis K21.9 Active 649031960 Problem Acute pain of left shoulder M25.512 Active 91277034 Problem Seasonal allergic rhinitis due to pollen J30.1 Active 88595686 Problem Forgetfulness R68.89 Active 09973653 Problem Headache R51 Active 12317121 Problem Anxiety F41.9 Active 65644015 Problem Back pain with right-sided radiculopathy M54.10 Active 949181262 Problem Lumbago with sciatica, right side M54.41 Active 02067398 Problem Lumbago with sciatica, left side M54.42 Active 29104926 Problem Other chronic pain G89.29 Active 18982278 Problem Mild persistent asthma with acute exacerbation J45.31 Active 394979957208224 Problem Migraine without aura and without status migrainosus, not intractable G43.009 Active 120742837 Problem Intractable migraine with aura with status migrainosus G43.111 Active 748701009 ALLERGIES No Known Allergies SOCIAL HISTORY No smoking Hx information available PLAN OF CARE VITAL SIGNS MEDICATIONS Medication Instructions Dosage Frequency Start Date End Date Duration Status Hydrocodone-Acetaminophen 7.5-325 MG Orally 4 times a day 1 tablet as needed 6h May, 28 days Active RESULTS No Results PROCEDURES No Known procedures IMMUNIZATIONS No Known Immunizations
--- OUTSIDE RECORDS SUMMARY | 2017-10-07 21:37 | XMS REPORT ---
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 [address] [id number] [place] [address]- 2585 Jan, [facility] [place] [facility] [address] [id number] [place] [address]- 2935 Jan, [facility] [place] [facility] [address] [id number] [place] [address]- 9836 Jan, [facility] [place] [facility] [address] [id number] [place] [address]- 4527 Jan, [facility] [place] [facility] [address] [id number] [place] [address]- 1997 Jan, [facility] [place] [facility] [address] [id number] [place] [address]- 2176 Jan, [facility] [place] [facility] [address] [id number] [place] [address]- 2870 Dec, [facility] [place] [facility] [address] [id number] [place] [address]- 9724 Dec, [facility] [place] [facility] [address] [id number] [place] [address]- 2039 Dec, [facility] [place] [facility] [address] [id number] [place] [address]- 4729 Dec, [facility] [place] [facility] [address] [id number] [place] [address]- 7103 Dec, [facility] [place] [facility] [address] [id number] [place] [address]- 9564 Dec, [facility] [place] [facility] [address] [id number] [place] [address]- 1266 Dec, [facility] [place] [facility] [address] [id number] [place] [address]- 8277 Dec, [facility] [place] [facility] [address] [id number] [place] [address]- 9826 Dec, [facility] [place] [facility] [address] [id number] [place] [address]- 1464 October, [facility] [place] [facility] [address] [id number] [place] [address]- 8317 October, [facility] [place] [facility] [address] [id number] [place] [address]- 1018 Sep, [facility] [place] [facility] [address] [id number] [place] [address]- 6210 Sep, [facility] [place] [facility] [address] [id number] [place] [address]- 1922 Aug, [facility] [place] [facility] [address] [id number] [place] [address]- 6764 Aug, [facility] [place] [facility] [address] [id number] [place] [address]- 6632 Aug, [facility] [place] [facility] [address] [id number] [place] [address]- 0017 Aug, [facility] [place] [facility] [address] [id number] [place] [address]- 5775 17 Aug, 2013 [facility] [place] [facility] [address] [id number] [place] [address]- 3636 17 Aug, 2013 [facility] [place] [facility] [address] [id number] [place] [address]- 7116 14 Aug, 2013 [facility] [place] [facility] [address] [id number] [place] [address]- 2546 07 Aug, 2013 [facility] [place] [facility] [address] [id number] [place] [address]- 4898 Aug, [facility] [place] [facility] [address] [id number] [place] [address]- 2629 Aug, [facility] [place] [facility] [address] [id number] [place] 4382 Aug, [facility] [place] [facility] [address] [facility] [id number] [place] [address] Jul, [facility] [place] [facility] [address] [id number] [place] [address]- 2885 Jul, [facility] [place] [facility] [address] [id number] [place] [address]- 5482 May, [facility] [place] [facility] [address] [id number] [place] [address]- 6590 May, [facility] [place] [facility] [address] [id number] [place] [address]- 7552 May, [facility] [place] [facility] [address] [id number] [place] [address]- 2378 May, [facility] [place] [facility] [address] [id number] [place] [address]- 9499 May, [facility] [place] [facility] [address] [facility] [id number] [place] [address]- 8183 May, [facility] [place] [facility] [address] [id number] [place] [address]- 4461 May, [facility] [place] [facility] [address] [id number] [place] [address]- 8390 May, [facility] [place] [facility] [address] [id number] [place] [address]- 3521 May, [facility] [place] [facility] [address] [facility] [id number] [place] [address]- 9519 May, [facility] [place] [facility] [address] [facility] [id number] [place] [address]- 7749 May, [facility] [place] [facility] [address] [id number] [place] [address]- 9048 20 May, 2013 [facility] [address] [id number] [place] [address]- 7030 May, [facility] [address] [id number] [place] [address]- 3023 20 May, 2013 [facility] [address] [id number] [place] [address]- 3819 May, [facility] [address] [id number] [place] [address]- 7516 19 May, 2013 [facility] [address] [id number] [place] [address]- 9655 18 May, 2013 [facility] [address] [id number] [place] [address]- 7890 18 May, 2013 [facility] [address] [id number] [place] [address]- 6585 16 May, 2013 [facility] [address] [id number] [place] [address]- 1730 16 May, 2013 [facility] [address] [id number] [place] [address]- 8796 May, [facility] [address] [id number] [place] [address]- 1866 May, [facility] [place] [facility] [address] [id number] [place] [address]- 3961 May, [facility] [address] [id number] [place] [address]- 8197 May, [facility] [place] [facility] [address] [id number] [place] [address]- 2717 May, [facility] [place] [facility] [address] [id number] [place] [address]- 4336 May, [facility] [place] [facility] [address] [id number] [place] [address]- 1360 May, [facility] [place] [facility] [address] [id number] [place] [address]- 5110 May, [facility] [place] [facility] [address] [id number] [place] [address]- 5484 May, [facility] [place] [facility] [address] [id number] [place] [address]- 4190 May, [facility] [place] [facility] [address] [id number] [place] [address]- 4751 Mar, [facility] [place] [facility] [address] [id number] [place] [address]- 8226 Mar, [facility] [place] [facility] [address] [id number] [place] [address]- 9522 Mar, [facility] [place] [facility] [address] [id number] [place] [address]- 0012 Mar, [facility] [place] [facility] [address] [id number], [place] [address]- 6980 30 Mar, 2013 [facility] [place] [facility] [address] [id number], [place] [address]- 8363 Mar, [facility] [place] [facility] [address] [id number], [place] [address]- 2712 Mar, [facility] [place] [facility] [address] [id number], [place] [address]- 5018 Mar, [facility] [place] [facility] [address] [id number], [place] [address]- 1344 29 Mar, 2013 [facility] [place] [facility] [address] [id number], [place] [address]- 8004 Mar, [facility] [place] [facility] [address] [id number], [place] [address]- 8092 Mar, [facility] [place] [facility] [address] [id number], [place] [address]- 0092 24 Mar, 2013 [facility] [place] [facility] [address] [id number], [place] [address]- 7776 24 Mar, 2013 [facility] [place] [facility] [address] [id number] [place] [address]- 4872 23 Mar, 2013 [facility] [place] [facility] [address] [id number] [place] [address]- 6823 22 Mar, 2013 [facility] [place] [facility] [address] [id number] [place] [address]- 0492 21 Mar, 2013 [facility] [place] [facility] [address] [id number] [place] [address]- 4179 21 Mar, 2013 [facility] [place] [facility] [address] [id number] [place] [address]- 6302 18 Mar, 2013 [facility] [place] [facility] [address] [id number] [place] [address]- 9134 18 Mar, 2013 [facility] [place] [facility] [address] [id number] [place] [address]- 5570 18 Mar, 2013 [facility] [place] [facility] [address] [id number] [place] [address]- 8795 18 Mar, 2013 [facility] [place] [facility] [address] [id number] [place] [address]- 7758 14 Mar, 2013 [facility] [place] [facility] [address] [id number] [place] [address]- 0151 14 Mar, 2013 [facility] [place] [facility] [address] [id number], [place] [address]- 9649 10 Mar, 2013 [facility] [place] [facility] [address] [id number], [place] [address]- 7907 18 Mar, 2013 [facility] [place] [facility] [address] [id number] [place] [address]- 9761 12 Mar, 2013 [facility] [place] [facility] [address] [id number] [place] [address]- 8141 11 Mar, 2013 [facility] [place] [facility] [address] [id number] [place] [address]- 7199 26 Jan, 2013 [facility] [place] [facility] [address] [id number] [place] [address]- 5483 October, [facility] [place] [facility] [address] [id number] [place] [address]- 5537 Sep, [facility] [place] [facility] [address] [id number] [place] [address]- 5132 Sep, [facility] [place] [facility] [address] [id number] [place] [address]- 0432 07 Aug, 2012 [facility] [place] [facility] [address] [id number] [place] [address] Aug, [facility] [place] [facility] [address] [id number] [place] [address], [place] [address] 04 Aug, 2012 [facility] [place] [facility] [address] [id number] [id number] [address] Jul, [facility] [place] [facility] [address] [id number] [place] [address] May, [facility] [place] [facility] [address] [id number] [place] [address] May, [facility] [place] [facility] [address] [facility] [id number] [place] [address] 18 May, 2012 [facility] [place] [facility] [address] [id number] [place] [address] 18 May, 2012 [facility] [place] [facility] [address] [id number] [place] [address] Mar, [facility] [place] [facility] [address] [id number] [place] [address] 19 Mar, 2012 [facility] [place] [facility] [address] [id number] [place] [address] 16 Mar, 2012 [facility] [place] [facility] [address] [id number] [place] [address] 25 Mar, 2012 [facility] [place] [facility] [address] [id number] [place] [address] 19 Mar, 2012 [facility] [place] [facility] [address] [id number] [place] [address] 7766 13 Mar, 2012 [facility] [place] [facility] [address] [id number] [place] [address] Mar, [facility] [place] [facility] [address] [id number] [place] [address] 30 Jan, 2012 [facility] [place] [facility] [address] [id number] [place] [address] Jan, [facility] [place] [facility] [address] [id number] [place] [address] Jan, [facility] [place] [facility] [address] [id number] [place] [address] Jan, [facility] [place] [facility] [address] [id number] [place] [address] Jan, [facility] [place] [facility] [address] [id number] [place] [address] Jan, [facility] [place] [facility] [address] [id number] [place] [address] Jan, [facility] [place] [facility] [address] [id number] [place] [address] Jan, [facility] [place] [facility] [address] [id number] [place] [address] Jan, [facility] [place] [facility] [address] [id number] [place] [address] Jan, [facility] [place] [facility] [address] [id number] [place] [address] Jan, [facility] [place] [facility] [address] [id number] [place] [address] Jan, [facility] [place] [facility] [address] [id number] [place] [address] Jan, [facility] [place] [facility] [address] [id number] [place] [address] Jan, [facility] [address] [id number] [place] [address] Jan, [facility] [address] [id number] [place] [address] Jan, [facility] [address] [id number] [place] [address] Dec, [facility] [address] [id number] [place] [address] Dec, [facility] [address] [id number] [place] [address] Nov, [facility] [address] [id number] [place] [address] Nov, [facility] [address] [id number] [place] [address] October, [facility] [address] [id number] [place] [address] October, [facility] [address] [id number] [place] [address] October, [facility] [address] [id number] [place] [address] Sep, [facility] [address] [id number] [place] [address] Sep, [facility] [address] [id number] [place] [address] 30 Aug, 2011 [facility] [place] [facility] [address] [id number] [place] [address]- [address]35 28 Aug, 2011 [facility] [place] [facility] [address] [id number] [place] [address]186 Aug, [facility] [address] [id number] [place] [address] Aug, [facility] [place] [facility] [address] [id number] [place] [address] 12 Aug, 2011 [facility] [place] [facility] [address] [id number] [place] [address]- 6946 14 Aug, 2011 [facility] [place] [facility] [address] [id number] [place] [address]- [address]26 07 Aug, 2011 [facility] [place] [facility] [address] [id number] [place] [address] Jul, [facility] [place] [facility] [address] [id number] [place] [address] Jul, [facility] [place] [facility] [address] [id number] [place] [address] Jul, [facility] [place] [facility] [address] [id number] [place] [address] 99[address] 28 May, 2011 [facility] [place] [facility] [address] [id number] [place] [address] 2604 28 May, 2011 [facility] [place] [facility] [address] [id number] [place] [address] 0303 May, [facility] [place] [facility] [address] [id number], [place] [address] May, [facility] [place] [facility] [address] [id number], [place] [address] May, [facility] [place] [facility] [address] [id number], [place] [address]597 May, [facility] [place] [facility] [address] [id number] [place] [address]- 8[address] May, [facility] [place] [facility] [address] [id number], [place] [address]- [address]6 25 Mar, 2011 [facility] [place] [facility] [address] [id number], [place] [address]- [address] Mar, [facility] [place] [facility] [address] [id number], [place] [address]- [address] Mar, [facility] [id number], [place] [address] Mar, [facility] [address] [id number], [place] [address] Mar, [facility] [id number], [place] [address] Mar, [facility] [id number] [place] [address] Jan, [facility] [id number] [place] [address] May, [facility] [id number] [place] [phone] May, [facility] [id number] [place] [address] May, [facility] [id number], [place] [address] May, [facility] [id number] [place] [address] May, [facility] [id number], [place] [address] May, [facility] [address], [place] [address] Mar, [facility] [id number], [place] [address] Sep, IMMUNIZATIONS No Known Immunizations SOCIAL HISTORY Never Assessed REASON FOR VISIT Controlled Med Refill 01/07/2017 PLAN OF CARE VITAL SIGNS MEDICATIONS Medication Instructions Dosage Frequency Start Date End Date Duration Status Xanax 1 MG Orally 3 times a day 1 tablet 8h 26 Aug, 2014 14 days Active Hydrocodone-Acetaminophen 7.5-325 MG Orally twice a day 1 tablet as needed 12h Dec, 14 days Active RESULTS No Results PROCEDURES [...]
--- OUTSIDE RECORDS SUMMARY | 2017-10-07 21:38 | XMS REPORT ---
Author Author MARIA DE JESUS MERCADO [facility] Address [address] [place] [address] Care Team Providers Care Table Worker Packager Name Role Phone MARIA DE JESUS MERCADO Unavailable PROBLEMS Type Condition ICD9-CM Code QJT21-KZ Code Onset Dates Condition Status SNOMED Code Problem Gastroesophageal reflux disease without esophagitis K21.9 Active 978533895 Problem Acute pain of left shoulder M25.512 Active 50411987 Problem Seasonal allergic rhinitis due to pollen J30.1 Active 42654967 Problem Forgetfulness R68.89 Active 00596184 Problem Headache R51 Active 66468964 Problem Anxiety F41.9 Active 73412860 Problem Back pain with right-sided radiculopathy M54.10 Active 514668169 Problem Lumbago with sciatica, right side M54.41 Active 72443354 Problem Lumbago with sciatica, left side M54.42 Active 54049973 Problem Other chronic pain G89.29 Active 99552611 Problem Mild persistent asthma with acute exacerbation J45.31 Active 105011566639037 Problem Migraine without aura and without status migrainosus, not intractable G43.009 Active 069340979 Problem Intractable migraine with aura with status migrainosus G43.111 Active 324917783 ALLERGIES Unknown Allergies SOCIAL HISTORY No smoking Hx information available PLAN OF CARE VITAL SIGNS MEDICATIONS Unknown Medications RESULTS No Results PROCEDURES No Known procedures IMMUNIZATIONS No Known Immunizations
--- OUTSIDE RECORDS SUMMARY | 2017-10-07 21:38 | XMS REPORT ---
Author Author MARIA DE JESUS MERCADO Organization [facility] Address [address] [place] [address] Care Team Providers Care Sap Bw Developer Name Role Phone MARIA DE JESUS MERCADO Unavailable PROBLEMS Type Condition ICD9-CM Code VVV28-SI Code Onset Dates Condition Status SNOMED Code Problem Gastroesophageal reflux disease without esophagitis K21.9 Active 810209718 Problem Acute pain of left shoulder M25.512 Active 63810205 Problem Seasonal allergic rhinitis due to pollen J30.1 Active 53665851 Problem Forgetfulness R68.89 Active 29899312 Problem Headache R51 Active 25110899 Problem Anxiety F41.9 Active 76092057 Problem Back pain with right-sided radiculopathy M54.10 Active 684530327 Problem Lumbago with sciatica, right side M54.41 Active 78225833 Problem Lumbago with sciatica, left side M54.42 Active 06440442 Problem Other chronic pain G89.29 Active 69787737 Problem Mild persistent asthma with acute exacerbation J45.31 Active 481733302542261 Problem Migraine without aura and without status migrainosus, not intractable G43.009 Active 523099081 Problem Intractable migraine with aura with status migrainosus G43.111 Active 134911461 ALLERGIES Unknown Allergies SOCIAL HISTORY No smoking Hx information available PLAN OF CARE VITAL SIGNS MEDICATIONS Medication Instructions Dosage Frequency Start Date End Date Duration Status Hydrocodone-Acetaminophen 7.5-325 MG Orally 4 times a day 1 tablet as needed 6h May, 28 days Active RESULTS No Results PROCEDURES No Known procedures IMMUNIZATIONS No Known Immunizations
--- OUTSIDE RECORDS SUMMARY | 2017-10-07 21:38 | XMS REPORT ---
Author Author MARIA DE JESUS MERCADO [facility] Address [address] [place] [address] Care Team Providers Care Mechanic/Welder Name Role Phone MARIA DE JESUS MERCADO Unavailable PROBLEMS Type Condition ICD9-CM Code DVZ26-OS Code Onset Dates Condition Status SNOMED Code Problem Gastroesophageal reflux disease without esophagitis K21.9 Active 508528923 Problem Acute pain of left shoulder M25.512 Active 99348042 Problem Seasonal allergic rhinitis due to pollen J30.1 Active 43583298 Problem Forgetfulness R68.89 Active 67729885 Problem Headache R51 Active 51450369 Problem Anxiety F41.9 Active 57524772 Problem Back pain with right-sided radiculopathy M54.10 Active 627220238 Problem Lumbago with sciatica, right side M54.41 Active 17508509 Problem Lumbago with sciatica, left side M54.42 Active 53167751 Problem Other chronic pain G89.29 Active 77196369 Problem Mild persistent asthma with acute exacerbation J45.31 Active 980095516847655 Problem Migraine without aura and without status migrainosus, not intractable G43.009 Active 539652584 Problem Intractable migraine with aura with status migrainosus G43.111 Active 031270010 ALLERGIES Unknown Allergies SOCIAL HISTORY No smoking Hx information available PLAN OF CARE VITAL SIGNS MEDICATIONS Unknown Medications RESULTS No Results PROCEDURES No Known procedures IMMUNIZATIONS No Known Immunizations
--- OUTSIDE RECORDS SUMMARY | 2017-10-07 21:38 | XMS REPORT ---
Author Author MARIA DE JESUS MERCADO [facility] Address [address] [place] [address] Care Team Providers Care Waxer Operator Name Role Phone MARIA DE JESUS MERCADO Unavailable PROBLEMS Type Condition ICD9-CM Code FCG40-JV Code Onset Dates Condition Status SNOMED Code Problem Gastroesophageal reflux disease without esophagitis K21.9 Active 214425926 Problem Acute pain of left shoulder M25.512 Active 30473212 Problem Seasonal allergic rhinitis due to pollen J30.1 Active 71261409 Problem Forgetfulness R68.89 Active 37470138 Problem Headache R51 Active 10688811 Problem Anxiety F41.9 Active 13428716 Problem Back pain with right-sided radiculopathy M54.10 Active 943131397 Problem Lumbago with sciatica, right side M54.41 Active 83577805 Problem Lumbago with sciatica, left side M54.42 Active 17944738 Problem Other chronic pain G89.29 Active 59981318 Problem Mild persistent asthma with acute exacerbation J45.31 Active 117714794704475 Problem Migraine without aura and without status migrainosus, not intractable G43.009 Active 472940945 Problem Intractable migraine with aura with status migrainosus G43.111 Active 445946249 ALLERGIES No Information SOCIAL HISTORY Never Assessed [...]
--- OUTSIDE RECORDS SUMMARY | 2017-10-07 21:38 | XMS REPORT ---
Author Author MARIA DE JESUS MERCADO [facility] Address [address] [place] [address] Care Team Providers Care School Psychology Specialist Name Role Phone MARIA DE JESUS MERCADO Unavailable PROBLEMS Type Condition ICD9-CM Code PIH23-MG Code Onset Dates Condition Status SNOMED Code Problem Gastroesophageal reflux disease without esophagitis K21.9 Active 727163184 Problem Acute pain of left shoulder M25.512 Active 73730658 Problem Seasonal allergic rhinitis due to pollen J30.1 Active 78877485 Problem Forgetfulness R68.89 Active 94569643 Problem Headache R51 Active 84567079 Problem Anxiety F41.9 Active 37852841 Problem Back pain with right-sided radiculopathy M54.10 Active 917213906 Problem Lumbago with sciatica, right side M54.41 Active 00240391 Problem Lumbago with sciatica, left side M54.42 Active 47213873 Problem Other chronic pain G89.29 Active 82534730 Problem Mild persistent asthma with acute exacerbation J45.31 Active 792127595836944 Problem Migraine without aura and without status migrainosus, not intractable G43.009 Active 911030411 Problem Intractable migraine with aura with status migrainosus G43.111 Active 476426374 ALLERGIES No Information SOCIAL HISTORY Never Assessed PLAN OF CARE VITAL SIGNS MEDICATIONS Medication Instructions Dosage Frequency Start Date End Date Duration Status Hydrocodone-Acetaminophen 7.5-325 MG Orally twice a day 1 tablet as needed 12h October, October, 28 days Active RESULTS No Results PROCEDURES [...]
--- OUTSIDE RECORDS SUMMARY | 2017-10-07 21:39 | XMS REPORT ---
Author Author MARIA DE JESUS MERCADO [facility] Address [address] [place] [address] Care Team Providers Care Software Applications Designer Name Role Phone MARIA DE JESUS MERCADO Unavailable PROBLEMS Type Condition ICD9-CM Code XMT61-MU Code Onset Dates Condition Status SNOMED Code Problem Gastroesophageal reflux disease without esophagitis K21.9 Active 996033081 Problem Acute pain of left shoulder M25.512 Active 74937424 Problem Seasonal allergic rhinitis due to pollen J30.1 Active 46764763 Problem Forgetfulness R68.89 Active 25424500 Problem Headache R51 Active 66497889 Problem Anxiety F41.9 Active 80147934 Problem Back pain with right-sided radiculopathy M54.10 Active 607048656 Problem Lumbago with sciatica, right side M54.41 Active 12162446 Problem Lumbago with sciatica, left side M54.42 Active 41472203 Problem Other chronic pain G89.29 Active 70465012 Problem Mild persistent asthma with acute exacerbation J45.31 Active 879272827352172 Problem Migraine without aura and without status migrainosus, not intractable G43.009 Active 359800397 Problem Intractable migraine with aura with status migrainosus G43.111 Active 313382396 ALLERGIES No Information SOCIAL HISTORY Never Assessed [...]
--- OUTSIDE RECORDS SUMMARY | 2017-10-07 21:39 | XMS REPORT ---
Author Author MARIA DE JESUS MERCADO [facility] Address [address] [place] [address] Care Team Providers Care Friction Welding Machine Operator Name Role Phone MARIA DE JESUS MERCADO Unavailable PROBLEMS Type Condition ICD9-CM Code ODO90-WT Code Onset Dates Condition Status SNOMED Code Problem Gastroesophageal reflux disease without esophagitis K21.9 Active 523817195 Problem Acute pain of left shoulder M25.512 Active 39925709 Problem Seasonal allergic rhinitis due to pollen J30.1 Active 35912564 Problem Forgetfulness R68.89 Active 19072306 Problem Headache R51 Active 28313898 Problem Anxiety F41.9 Active 04521838 Problem Back pain with right-sided radiculopathy M54.10 Active 115402658 Problem Lumbago with sciatica, right side M54.41 Active 00061163 Problem Lumbago with sciatica, left side M54.42 Active 50504484 Problem Other chronic pain G89.29 Active 13739568 Problem Mild persistent asthma with acute exacerbation J45.31 Active 557694770378558 Problem Migraine without aura and without status migrainosus, not intractable G43.009 Active 530280025 Problem Intractable migraine with aura with status migrainosus G43.111 Active 844807039 ALLERGIES Substance Reaction Event Type Date Status [...] PLAN OF CARE Activity Details Follow Up 3 Months Reason:anxiety VITAL SIGNS Height 64 in 2016-09-03 Weight 129.6 lbs 2016-09-03 Temperature 98.4 degrees Fahrenheit 2016-09-03 Heart Rate 82 bpm 2016-09-03 Respiratory Rate 20 2016-09-03 BMI 22.24 kg/m2 2016-09-03 Blood pressure systolic 122 mmHg 2016-09-03 Blood pressure diastolic 72 mmHg 2016-09-03 MEDICATIONS Medication Instructions Dosage Frequency Start Date End Date Duration Status Benztropine Mesylate 1 MG Orally 3 times a day 1 tablet 8h 90 days Active EpiPen 0.3 MG/0.3ML (1:1000) Intramuscular PRN as directed Mar, 1 dose Active Albuterol 90 mcg/actuation 2 puffs by Inhalation route 4 times per day PRN Jul, Active Claritin 10 MG Orally Once a day 1 tablet 24h Active Test strips Test Strips as directed October, Active Lexapro 20 mg Orally Once a day 2 tablets 24h 90 days Active Xanax 1 MG Orally 3 times a day 1 tablet 8h Aug, 28 days Active Blood Glucose Monitor 1 glucometer test blood sugars 12h October, Active Omeprazole 40 MG Orally Once a day 1 capsule 24h 90 days Active Hydrocodone-Acetaminophen 7.5-325 MG Orally 4 times [...]
--- OUTSIDE RECORDS SUMMARY | 2017-10-07 21:39 | XMS REPORT ---
Author Author MARIA DE JESUS MERCADO [facility] Address [address] [place] [address] Care Team Providers Care Electrical Controls Technician Name Role Phone MARIA DE JESUS MERCADO Unavailable PROBLEMS Type Condition ICD9-CM Code GJL03-GC Code Onset Dates Condition Status SNOMED Code Problem Gastroesophageal reflux disease without esophagitis K21.9 Active 429732714 Problem Acute pain of left shoulder M25.512 Active 14024739 Problem Seasonal allergic rhinitis due to pollen J30.1 Active 95264085 Problem Forgetfulness R68.89 Active 43431305 Problem Headache R51 Active 40117398 Problem Anxiety F41.9 Active 26537960 Problem Back pain with right-sided radiculopathy M54.10 Active 607599479 Problem Lumbago with sciatica, right side M54.41 Active 83788595 Problem Lumbago with sciatica, left side M54.42 Active 74592332 Problem Other chronic pain G89.29 Active 08544725 Problem Mild persistent asthma with acute exacerbation J45.31 Active 983683604786276 Problem Migraine without aura and without status migrainosus, not intractable G43.009 Active 165929981 Problem Intractable migraine with aura with status migrainosus G43.111 Active 639853388 ALLERGIES Unknown Allergies SOCIAL HISTORY No smoking Hx information available PLAN OF CARE VITAL SIGNS MEDICATIONS Unknown Medications RESULTS No Results PROCEDURES No Known procedures IMMUNIZATIONS No Known Immunizations
--- OUTSIDE RECORDS SUMMARY | 2017-10-07 21:39 | XMS REPORT ---
Author Author MARIA DE JESUS MERCADO [facility] Address [address] [place] [address] Care Team Providers Care Fur Blower Operator Name Role Phone MARIA DE JESUS MERCADO Unavailable PROBLEMS Type Condition ICD9-CM Code ZJO07-SD Code Onset Dates Condition Status SNOMED Code Problem Gastroesophageal reflux disease without esophagitis K21.9 Active 519506210 Problem Acute pain of left shoulder M25.512 Active 29111796 Problem Seasonal allergic rhinitis due to pollen J30.1 Active 08835469 Problem Forgetfulness R68.89 Active 81315685 Problem Headache R51 Active 87742455 Problem Anxiety F41.9 Active 68806735 Problem Back pain with right-sided radiculopathy M54.10 Active 303366339 Problem Lumbago with sciatica, right side M54.41 Active 01124249 Problem Lumbago with sciatica, left side M54.42 Active 12028433 Problem Other chronic pain G89.29 Active 80110655 Problem Mild persistent asthma with acute exacerbation J45.31 Active 087833664996049 Problem Migraine without aura and without status migrainosus, not intractable G43.009 Active 471889228 Problem Intractable migraine with aura with status migrainosus G43.111 Active 187592482 ALLERGIES Substance Reaction Event Type Date Status MetFORMIN HCl ER shakiness, wt loss Drug Allergy May, Active Sulfamethoxazole-Trimethoprim Unknown Drug Allergy May, Active Septra Unknown Drug Allergy May, Active Penicillin V Potassium Unknown Drug Allergy May, Active Bactrim Unknown Drug Allergy May, Active SOCIAL HISTORY No smoking Hx information available PLAN OF CARE Activity Details Follow Up prn Reason: VITAL SIGNS Height 64 in 2016-06-19 Weight 129.4 lbs 2016-06-19 Temperature 98.4 degrees Fahrenheit 2016-06-19 Heart Rate 80 bpm 2016-06-19 Respiratory Rate 18 2016-06-19 BMI 22.21 kg/m2 2016-06-19 Blood pressure systolic 114 mmHg 2016-06-19 Blood pressure diastolic 76 mmHg 2016-06-19 MEDICATIONS Medication Instructions Dosage Frequency Start Date End Date Duration Status Test strips Test Strips as directed October, Active EpiPen 0.3 MG/0.3ML (1:1000) Intramuscular PRN as directed Mar, 1 dose Active Albuterol 90 mcg/actuation 2 puffs by Inhalation route 4 times per day PRN Jul, Active Benztropine Mesylate 1 MG Orally 3 times a day 1 tablet 8h 90 days Active Toprol XL 50 mg Orally Once a day at hs 1 tablet 90 Active Topamax 50 mg Orally Twice a day 1 tablet 12h May, Active ZyrTEC 10 MG Orally Once a day #120 samples 1 tablet as needed Mar, Active Xanax 1 MG Orally 4 times a day 1 tablet as needed for anxiety 6h Aug, 28 days Active Lexapro 20 mg Orally Once a day 2 tablets 24h 90 days Active Claritin 10 MG Orally Once a day 1 tablet 24h May, Jul, 30 day(s) Active Blood Glucose Monitor 1 glucometer test blood sugars 12h October, Active Omeprazole 40 MG Orally Once a day 1 capsule 24h 90 days Active Hydrocodone-Acetaminophen 7.5-325 MG Orally 4 times a day 1 tablet as needed 6h May, 28 days Active RESULTS Name Result Date Reference Range AMERITOX 2016-06-19 MRI : Shoulder, Left 2016-06-27 PROCEDURES Procedure Date Ordered Related Diagnosis Body Site No Charge Jun 19, 2016 Office Visit, Est Pt., Level 3 Jun 19, 2016 IMMUNIZATIONS No Known Immunizations
--- OUTSIDE RECORDS SUMMARY | 2017-10-07 21:41 | XMS REPORT ---
Author Author MARIA DE JESUS MERCADO [facility] Address [address] [place] [address] Care Team Providers Care Tombstone Carver Name Role Phone MARIA DE JESUS MERCADO Unavailable PROBLEMS Type Condition ICD9-CM Code GWP17-QK Code Onset Dates Condition Status SNOMED Code Problem Gastroesophageal reflux disease without esophagitis K21.9 Active 938356099 Problem Acute pain of left shoulder M25.512 Active 97268872 Problem Seasonal allergic rhinitis due to pollen J30.1 Active 58152969 Problem Forgetfulness R68.89 Active 70896361 Problem Headache R51 Active 13023630 Problem Anxiety F41.9 Active 91552926 Problem Back pain with right-sided radiculopathy M54.10 Active 454827471 Problem Lumbago with sciatica, right side M54.41 Active 41300271 Problem Lumbago with sciatica, left side M54.42 Active 50767823 Problem Other chronic pain G89.29 Active 64773008 Problem Mild persistent asthma with acute exacerbation J45.31 Active 362618253654776 Problem Migraine without aura and without status migrainosus, not intractable G43.009 Active 647374177 Problem Intractable migraine with aura with status migrainosus G43.111 Active 512643408 ALLERGIES No Information SOCIAL HISTORY Never Assessed PLAN OF CARE VITAL SIGNS Height 64 in 2016-09-20 Heart Rate 80 bpm 2016-09-20 Respiratory Rate 20 2016-09-20 Oximetry 98 % 2016-09-20 MEDICATIONS Unknown Medications RESULTS No Results PROCEDURES Procedure Date Ordered Result Body Site MEASURE BLOOD OXYGEN LEVEL September 20, 2016 IMMUNIZATIONS No Known Immunizations MEDICAL (GENERAL) [...]
--- OUTSIDE RECORDS SUMMARY | 2017-10-07 21:41 | XMS REPORT ---
Author Author MARIA DE JESUS MERCADO [facility] Address [address] [place] [address] Care Team Providers Care Documentation Billing Clerk Name Role Phone MARIA DE JESUS MERCADO Unavailable PROBLEMS Type Condition ICD9-CM Code CMF51-NI Code Onset Dates Condition Status SNOMED Code Problem Gastroesophageal reflux disease without esophagitis K21.9 Active 246785981 Problem Acute pain of left shoulder M25.512 Active 13321912 Problem Seasonal allergic rhinitis due to pollen J30.1 Active 20468659 Problem Forgetfulness R68.89 Active 93068686 Problem Headache R51 Active 78254319 Problem Anxiety F41.9 Active 97099270 Problem Back pain with right-sided radiculopathy M54.10 Active 628173161 Problem Lumbago with sciatica, right side M54.41 Active 37495015 Problem Lumbago with sciatica, left side M54.42 Active 46472245 Problem Other chronic pain G89.29 Active 54159488 Problem Mild persistent asthma with acute exacerbation J45.31 Active 402577293684111 Problem Migraine without aura and without status migrainosus, not intractable G43.009 Active 097981983 Problem Intractable migraine with aura with status migrainosus G43.111 Active 806475551 ALLERGIES No Information SOCIAL HISTORY Never Assessed PLAN OF CARE VITAL SIGNS MEDICATIONS No Known Medications RESULTS Name Result Date Reference Range AMERITOX 2016-11-01 PROCEDURES Procedure Date Ordered Result Body Site No Charge November 01, 2016 IMMUNIZATIONS No Known Immunizations MEDICAL (GENERAL) [...]
--- OUTSIDE RECORDS SUMMARY | 2017-10-07 21:41 | XMS REPORT ---
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 [address]- 5011 Jan, [facility] [place] [facility] [address] [id number] [place] [address]- 8351 Jan, [facility] [place] [facility] [address] [id number] [place] [address]- 9032 Jan, [facility] [place] [facility] [address] [id number] [place] [address]- 9119 Jan, [facility] [place] [facility] [address] [id number] [place] [address]- 4885 Jan, [facility] [place] [facility] [address] [id number] [place] [address]- 4997 Dec, [facility] [place] [facility] [address] [id number] [place] [address]- 5400 Dec, [facility] [place] [facility] [address] [id number] [place] [address]- 0546 Dec, [facility] [place] [facility] [address] [id number] [place] [address]- 4196 Dec, [facility] [place] [facility] [address] [id number] [place] [address]- 5981 Dec, [facility] [place] [facility] [address] [id number] [place] [address]- 2857 Dec, [facility] [place] [facility] [address] [id number] [place] [address]- 2946 Dec, [facility] [place] [facility] [address] [id number] [place] [address]- 0316 Dec, [facility] [place] [facility] [address] [id number] [place] [address]- 5850 Dec, [facility] [place] [facility] [address] [id number] [place] [address]- 5609 October, [facility] [place] [facility] [address] [id number] [place] [address]- 8628 October, [facility] [place] [facility] [address] [id number] [place] [address]- 9951 Sep, [facility] [place] [facility] [address] [id number] [place] [address]- 5805 Sep, [facility] [place] [facility] [address] [id number] [place] [address]- 0259 Aug, [facility] [place] [facility] [address] [id number] [place] [address]- 3297 Aug, [facility] [place] [facility] [address] [id number] [place] [address]- 6543 Aug, [facility] [place] [facility] [address] [id number] [place] [address]- 0170 Aug, [facility] [place] [facility] [address] [id number] [place] [address]- 9816 17 Aug, 2013 [facility] [place] [facility] [address] [id number] [place] [address]- 4376 17 Aug, 2013 [facility] [place] [facility] [address] [id number] [place] [address]- 4673 14 Aug, 2013 [facility] [place] [facility] [address] [id number] [place]288 Aug, [facility] [place] [facility] [address] [id number] [place] [address]- 7620 Aug, [facility] [place] [facility] [address] [id number] [place] [address]- 4129 Aug, [facility] [place] [facility] [address] [id number] [place] [address]- 7542 Aug, [facility] [place] [facility] [address] [id number] [place] [address]- 0222 Jul, [facility] [place] [facility] [address] [id number] [place] [address]- 6163 Jul, [facility] [place] [facility] [address] [id number] [place] [address]- 2446 May, [facility] [place] [facility] [address] [id number] [place] [address]- 1293 May, [facility] [place] [facility] [address] [id number] [place] [address]- 8255 May, [facility] [place] [facility] [address] [id number] [place] [address]- 8313 May, [facility] [place] [facility] [address] [id number] [place] [address]- 6841 May, [facility] [place] [facility] [address] [id number] [place] [address]- 3336 May, [facility] [place] [facility] [address] [id number] [place] [address]- 4416 May, [facility] [place] [facility] [address] [id number] [place] [address]- 4531 May, [facility] [place] [facility] [address] [id number] [place] [address]- 9700 May, [facility] [place] [facility] [address] [id number] [place] [address]- 2465 May, [facility] [address] [id number] [place] [address]- 8890 May, [facility] [address] [id number] [place] [address]- 0895 May, [facility] [address] [id number] [place] [address]- 3040 May, [facility] [address] [id number] [place] [address]- 9109 May, [facility] [address] [id number] [place] [address]- 2259 May, [facility] [address] [id number] [place] [address]- 6112 May, [facility] [address] [id number] [place] [address]- 7655 May, [facility] [address] [id number] [place] [address]- 3107 18 May, 2013 [facility] [address] [id number] [place] [address]- 3460 16 May, 2013 [facility] [address] [id number] [place] [address]- 4768 16 May, 2013 [facility] [place] [facility] [address] [id number] [place] [address]- 9546 May, [facility] [address] [id number] [place] [address]- 0170 May, [facility] [place] [facility] [address] [id number] [place] [address]- 2944 May, [facility] [place] [facility] [address] [id number] [place] [address]- 5050 May, [facility] [place] [facility] [address] [id number] [place] [address]- 3384 May, [facility] [place] [facility] [address] [id number] [place] [address]- 8173 May, [facility] [place] [facility] [address] [id number] [place] [address]- 3292 May, [facility] [place] [facility] [address] [id number] [place] [address]- 9288 May, [facility] [place] [facility] [address] [id number] [place] [address]- 7953 May, [facility] [place] [facility] [address] [id number] [place] [address]- 4938 May, [facility] [place] [facility] [address] [id number] [place] [address]- 2800 Mar, [facility] [place] [facility] [address] [id number] [place] [address]- 2818 Mar, [facility] [place] [facility] [address] [id number], [place] [address]- 5556 Mar, [facility] [place] [facility] [address] [id number], [place] [address]- 3257 Mar, [facility] [place] [facility] [address] [id number], [place] [address]- 3802 30 Mar, 2013 [facility] [place] [facility] [address] [id number], [place] [address]- 5270 Mar, [facility] [place] [facility] [address] [id number], [place] [address]- 8732 29 Mar, 2013 [facility] [place] [facility] [address] [id number], [place] [address]- 2196 Mar, [facility] [place] [facility] [address] [id number], [place] [address]- 6234 Mar, [facility] [place] [facility] [address] [id number], [place] [address]- 2447 Mar, [facility] [place] [facility] [address] [id number], [place] [address]- 0758 28 Mar, 2013 [facility] [place] [facility] [address] [id number] [place] [address]- 2007 24 Mar, 2013 [facility] [place] [facility] [address] [id number] [place] [address]- 6856 24 Mar, 2013 [facility] [place] [facility] [address] [id number] [place] [address]- 9095 23 Mar, 2013 [facility] [place] [facility] [address] [id number] [place] [address]- 4428 22 Mar, 2013 [facility] [place] [facility] [address] [id number] [place] [address]- 7558 21 Mar, 2013 [facility] [place] [facility] [address] [id number] [place] [address]- 5794 21 Mar, 2013 [facility] [place] [facility] [address] [id number] [place] [address]- 0174 18 Mar, 2013 [facility] [place] [facility] [address] [id number] [place] [address]- 2492 18 Mar, 2013 [facility] [place] [facility] [address] [id number] [place] [address]- 4202 18 Mar, 2013 [facility] [place] [facility] [address] [id number] [place] [address]- 5940 18 Mar, 2013 [facility] [place] [facility] [address] [id number], [place] [address]- 8835 14 Mar, 2013 [facility] [place] [facility] [address] [id number], [place] [address]- 4017 14 Mar, 2013 [facility] [place] [facility] [address] [id number], [place] [address]- 5535 10 Mar, 2013 [facility] [place] [facility] [address] [id number], [place] [address]- 6752 18 Mar, 2013 [facility] [place] [facility] [address] [id number], [place] [address]- 0628 12 Mar, 2013 [facility] [place] [facility] [address] [id number] [place] [address]- 3391 Mar, [facility] [address] [id number] [place] [address]- 9998 Jan, [facility] [place] [facility] [address] [id number] [place] [address]- 2378 October, [facility] [place] [facility] [address] [id number] [place] [address]- 1661 Sep, [facility] [place] [facility] [address] [id number] [place] [address]- 2462 Sep, [facility] [place] [facility] [address] [id number] [place] [address]- 6840 Aug, [facility] [place] [facility] [address] [id number] [place] [address]- 5955 Aug, [facility] [place] [facility] [address] [id number] [place] [address]- 7231 Aug, [facility] [place] [facility] [address] [id number] [place] [address] Jul, [facility] [place] [facility] [address] [id number] [place] [address] May, [facility] [place] [facility] [address] [id number] [place] [address] May, [facility] [place] [facility] [address] [id number] [place] [address] May, [facility] [place] [facility] [address] [id number] [place] [address] May, [facility] [place] [facility] [address] [id number] [place] [address] Mar, [facility] [place] [facility] [address] [id number] [place] [address] Mar, [facility] [place] [facility] [address] [id number] [place] [address] 16 Mar, 2012 [facility] [place] [facility] [address] [id number] [place] [address] 25 Mar, 2011 [facility] [place] [facility] [address] [id number] [place] [address] 19 Mar, 2012 [facility] [place] [facility] [address] [id number] [place] [address] 13 Mar, 2012 [facility] [place] [facility] [address] [id number] [place] [address] 07 Mar, 2012 [facility] [place] [facility] [address] [id number] [place] [address] 30 Jan, 2012 [facility] [place] [facility] [address] [id number] [place] [address] Jan, [facility] [place] [facility] [address] [id number] [place] [address] Jan, [facility] [place] [facility] [address] [id number] [place] [address] 14 Jan, 2012 [facility] [place] [facility] [address] [id number] [place] [address] Jan, [facility] [place] [facility] [address] [id number] [place] [address] Jan, [facility] [place] [facility] [address] [id number] [place] [address] Jan, [facility] [place] [facility] [address] [id number], [place] [address] Jan, [facility] [place] [facility] [address] [id number] [place] [address] Jan, [facility] [place] [facility] [address] [id number] [place] [address] Jan, [facility] [place] [facility] [address] [id number] [place] [address] Jan, [facility] [place] [facility] [address] [id number] [place] [address] Jan, [facility] [address] [id number] [place] [address] Jan, [facility] [address] [id number] [place] [address] Jan, [facility] [address] [id number] [place] [address] Jan, [facility] [address] [id number] [place] [address] Jan, [facility] [address] [id number] [place] [address] Dec, [facility] [address] [id number] [place] [address] Dec, [facility] [address] [id number] [place] [address] Nov, [facility] [address] [id number] [place] [address] Nov, [facility] [address] [id number] [place] [address] October, [facility] [address] [id number] [place] [address] October, [facility] [address] [id number] [place] [address] October, [facility] [address] [id number] [place] [address] Sep, [facility] [place] [facility] [address] [id number] [place] [address] Sep, [facility] [place] [facility] [address] [id number] [place] [address] Aug, [facility] [address] [id number] [place] [address] Aug, [facility] [place] [facility] [address] [id number] [place] [address]- [address] 26 Aug, 2011 [facility] [place] [facility] [address] [id number] [place] [address] 19 Aug, 2011 [facility] [place] [facility] [address] [id number] [place] [address] 12 Aug, 2011 [facility] [place] [facility] [address] [id number] [place] [address] 14 Aug, 2011 [facility] [place] [facility] [address] [id number] [place] [address]- [address] 07 Aug, 2011 [facility] [place] [facility] [address] [id number] [place] [address] 27 Jul, 2011 [facility] [place] [facility] [address] [id number] [place] [address] Jul, [facility] [place] [facility] [address] [id number] [place] [address] Jul, [facility] [place] [facility] [address] [id number] [place] [address] May, [facility] [place] [facility] [address] [id number] [place] [address]- [address] 28 May, 2011 [facility] [place] [facility] [address] [id number] [place] [address] May, [facility] [place] [facility] [address] [id number] [place] [address] 19 May, 2011 [facility] [place] [facility] [address] [id number] [place] [address]- [address] 13 May, 2011 [facility] [place] [facility] [address] [id number] [place] [address] May, [facility] [place] [facility] [address] [id number] [place] [address] 22 May, 2011 [facility] [place] [facility] [address] [id number], [place] [address] Mar, [facility] [id number] [address] Mar, [facility] [id number], [place] [address] Mar, [facility] [id number], [place] [address] 15 Mar, 2011 [facility] [id number] [place] [address] Mar, [facility] [id number] [place] [address] Mar, [facility] [address] [id number] [address] Jan, [facility] [id number] [place] [address] May, [facility] [id number], [place] [address] May, [facility] [id number] [address] May, [facility] [id number] [address] May, [facility] [id number], [place] [address] May, [facility] [id number] [address] May, [facility] [id number] [place] [address] Mar, [facility] [id number], [place] [address] Sep, IMMUNIZATIONS Vaccine Route Administration Date Status DEPO PROVERA (150 MG/ML) IM Intramuscular January 11, 2017 Administered SOCIAL HISTORY Never Assessed REASON FOR VISIT Depo Provera injection- Edwin WATTER[place] PLAN OF CARE VITAL SIGNS MEDICATIONS Unknown Medications RESULTS Name Result Date Reference Range TEST, URINE (IN HOUSE) 2017-01-11 RESULTS negative Lot # [id number] Control + Exp date 12/2017 PROCEDURES Procedure Date Ordered Result Body Site URINE TEST January 11, 2017 DEPO PROVERA (150 MG/ML) January 11, 2017 THER/PROPH/DIAG INJ, SC/IM January 11, 2017 INSTRUCTIONS MEDICATIONS ADMINISTERED No Known Medications MEDICAL [...]
--- OUTSIDE RECORDS SUMMARY | 2017-10-07 21:42 | XMS REPORT ---
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 [facility] [address] [id number] [place] [address]- 5292 Jan, [facility] [place] [facility] [address] [id number] [place] [address]- 3916 Jan, [facility] [place] [facility] [address] [id number] [place] [address]- 1300 Jan, [facility] [place] [facility] [address] [id number] [place] [address]- 5155 Jan, [facility] [place] [facility] [address] [id number] [place] [address]- 8999 Jan, [facility] [place] [facility] [address] [id number] [place] [address]- 9963 Dec, [facility] [place] [facility] [address] [id number] [place] [address]- 1421 Dec, [facility] [place] [facility] [address] [id number] [place] [address]- 7277 Dec, [facility] [place] [facility] [address] [id number] [place] [address]- 5171 Dec, [facility] [place] [facility] [address] [id number] [place] [address]- 8329 Dec, [facility] [place] [facility] [address] [id number] [place] [address]- 4620 Dec, [facility] [place] [facility] [address] [id number] [place] [address]- 3762 Dec, [facility] [place] [facility] [address] [id number] [place] [address]- 2710 Dec, [facility] [place] [facility] [address] [id number] [place] [address]- 1446 Dec, [facility] [place] [facility] [address] [id number] [place] [address]- 6857 October, [facility] [place] [facility] [address] [id number] [place] [address]- 9103 October, [facility] [place] [facility] [address] [id number] [place] [address]- 5160 Sep, [facility] [place] [facility] [address] [id number] [place] [address]- 8993 Sep, [facility] [place] [facility] [address] [id number] [place] [address]- 4119 Aug, [facility] [place] [facility] [address] [id number] [place] [address]- 7940 Aug, [facility] [place] [facility] [address] [id number] [place] [address]- 8102 Aug, [facility] [place] [facility] [address] [id number] [place] [address]- 0815 Aug, [facility] [place] [facility] [address] [id number] [place] [address]- 4346 17 Aug, 2013 [facility] [place] [facility] [address] [id number] [place] [address]- 3786 17 Aug, 2013 [facility] [place] [facility] [address] [id number] [place] [address]- 1496 14 Aug, 2013 [facility] [place] [facility] [address] [id number] [place] [address]- 2546 07 Aug, 2013 [facility] [place] [facility] [address] [id number] [place] [address]- 1141 Aug, [facility] [place] [facility] [address] [id number] [place] [address]- 4870 Aug, [facility] [place] [facility] [address] [id number] [place] [address]- 8981 Aug, [facility] [place] [facility] [address] [facility] [id number] [place] 7279 Jul, [facility] [place] [facility] [address] [id number] [place] [address]- 9632 Jul, [facility] [place] [facility] [address] [id number] [place] [address]- 3419 May, [facility] [place] [facility] [address] [id number] [place] [address]- 2867 May, [facility] [place] [facility] [address] [id number] [place] [address]- 7509 May, [facility] [place] [facility] [address] [id number] [place] [address]- 2323 May, [facility] [place] [facility] [address] [id number] [place] [address]- 2524 May, [facility] [place] [facility] [address] [facility] [id number] [place] [address]- 8482 May, [facility] [place] [facility] [address] [id number] [place] [address]- 4336 May, [facility] [place] [facility] [address] [id number] [place] [address]- 8149 May, [facility] [place] [facility] [address] [id number] [place] [address]- 4247 May, [facility] [place] [facility] [address] [facility] [id number] [place] [address]- 4606 May, [facility] [place] [facility] [address] [facility] [id number] [place] [address]- 0917 May, [facility] [place] [facility] [address] [id number] [place] [address]- 3808 20 May, 2013 [facility] [address] [id number] [place] [address]- 6769 May, [facility] [address] [id number] [place] [address]- 8938 20 May, 2013 [facility] [address] [id number] [place] [address]- 8815 May, [facility] [address] [id number] [place] [address]- 4853 19 May, 2013 [facility] [address] [id number] [place] [address]- 7919 18 May, 2013 [facility] [address] [id number] [place] [address]- 5053 18 May, 2013 [facility] [address] [id number] [place] [address]- 3609 16 May, 2013 [facility] [address] [id number] [place] [address]- 3593 16 May, 2013 [facility] [address] [id number] [place] [address]- 4457 May, [facility] [address] [id number] [place] [address]- 7554 May, [facility] [place] [facility] [address] [id number] [place] [address]- 1300 May, [facility] [address] [id number] [place] [address]- 3875 May, [facility] [place] [facility] [address] [id number] [place] [address]- 0695 May, [facility] [place] [facility] [address] [id number] [place] [address]- 7621 May, [facility] [place] [facility] [address] [id number] [place] [address]- 6650 May, [facility] [place] [facility] [address] [id number] [place] [address]- 5807 May, [facility] [place] [facility] [address] [id number] [place] [address]- 6005 May, [facility] [place] [facility] [address] [id number] [place] [address]- 7103 May, [facility] [place] [facility] [address] [id number] [place] [address]- 5726 Mar, [facility] [place] [facility] [address] [id number] [place] [address]- 0075 Mar, [facility] [place] [facility] [address] [id number] [place] [address]- 4754 Mar, [facility] [place] [facility] [address] [id number] [place] [address]- 3415 Mar, [facility] [place] [facility] [address] [id number], [place] [address]- 4361 30 Mar, 2013 [facility] [place] [facility] [address] [id number], [place] [address]- 9487 Mar, [facility] [place] [facility] [address] [id number], [place] [address]- 3442 Mar, [facility] [place] [facility] [address] [id number], [place] [address]- 0369 Mar, [facility] [place] [facility] [address] [id number], [place] [address]- 7746 29 Mar, 2013 [facility] [place] [facility] [address] [id number], [place] [address]- 0611 Mar, [facility] [place] [facility] [address] [id number], [place] [address]- 1821 Mar, [facility] [place] [facility] [address] [id number], [place] [address]- 6555 24 Mar, 2013 [facility] [place] [facility] [address] [id number], [place] [address]- 7497 24 Mar, 2013 [facility] [place] [facility] [address] [id number] [place] [address]- 1183 23 Mar, 2013 [facility] [place] [facility] [address] [id number] [place] [address]- 7258 22 Mar, 2013 [facility] [place] [facility] [address] [id number] [place] [address]- 0346 21 Mar, 2013 [facility] [place] [facility] [address] [id number] [place] [address]- 9610 21 Mar, 2013 [facility] [place] [facility] [address] [id number] [place] [address]- 8940 18 Mar, 2013 [facility] [place] [facility] [address] [id number] [place] [address]- 3826 18 Mar, 2013 [facility] [place] [facility] [address] [id number] [place] [address]- 8597 18 Mar, 2013 [facility] [place] [facility] [address] [id number] [place] [address]- 6040 18 Mar, 2013 [facility] [place] [facility] [address] [id number] [place] [address]- 1116 14 Mar, 2013 [facility] [place] [facility] [address] [id number] [place] [address]- 0588 14 Mar, 2013 [facility] [place] [facility] [address] [id number], [place] [address]- 0826 10 Mar, 2013 [facility] [place] [facility] [address] [id number], [place] [address]- 2591 18 Mar, 2013 [facility] [place] [facility] [address] [id number] [place] [address]- 1999 12 Mar, 2013 [facility] [place] [facility] [address] [id number] [place] [address]- 8939 11 Mar, 2013 [facility] [place] [facility] [address] [id number] [place] [address]- 3062 26 Jan, 2013 [facility] [place] [facility] [address] [id number] [place] [address]- 5733 October, [facility] [place] [facility] [address] [id number] [place] [address]- 5364 Sep, [facility] [place] [facility] [address] [id number] [place] [address]- 5195 Sep, [facility] [place] [facility] [address] [id number] [place] [address]- 2777 07 Aug, 2012 [facility] [place] [facility] [address] [id number] [place] [address]- 6678 Aug, [facility] [place] [facility] [address] [id number] [place] [address], [place] [address]- 8998 04 Aug, 2012 [facility] [place] [facility] [address] [id number] [place] 6142 Jul, [facility] [place] [facility] [address] [id number] [place] [address]- 6095 May, [facility] [place] [facility] [address] [id number] [place] [address]- 3861 May, [facility] [place] [facility] [address] [facility] [id number] [place] [address]- 8405 18 May, 2012 [facility] [place] [facility] [address] [id number] [place] [address]- 9265 18 May, 2012 [facility] [place] [facility] [address] [id number] [place] [address]- 2974 Mar, [facility] [place] [facility] [address] [id number] [place] 7470 19 Mar, 2012 [facility] [place] [facility] [address] [id number] [place] [address]- 6132 16 Mar, 2012 [facility] [place] [facility] [address] [id number] [place] [address]- 59[address] 25 Mar, 2012 [facility] [place] [facility] [address] [id number] [place] [address] 19 Mar, 2012 [facility] [place] [facility] [address] [id number] [place] [address] 13 Mar, 2012 [facility] [place] [facility] [address] [id number] [place] [address] Mar, [facility] [place] [facility] [address] [id number] [place] [address] 30 Jan, 2012 [facility] [place] [facility] [address] [id number] [place] [address] Jan, [facility] [place] [facility] [address] [id number] [place] [address] Jan, [facility] [place] [facility] [address] [id number] [place] [address] Jan, [facility] [place] [facility] [address] [id number] [place] [address] Jan, [facility] [place] [facility] [address] [id number] [place] [address] Jan, [facility] [place] [facility] [address] [id number] [place] [address] Jan, [facility] [place] [facility] [address] [id number] [place] [address] Jan, [facility] [place] [facility] [address] [id number] [place] [address] 118[address] Jan, [facility] [place] [facility] [address] [id number] [place] [address] Jan, [facility] [place] [facility] [address] [id number] [place] [address] 9[address] Jan, [facility] [place] [facility] [address] [id number] [place] [address] 35[address] Jan, [facility] [place] [facility] [address] [id number] [place] [address] Jan, [facility] [place] [facility] [address] [id number] [place] [address] 3867 Jan, [facility] [address] [id number] [place] [address] Jan, [facility] [address] [id number] [place] [address] Jan, [facility] [address] [id number] [place] [address] Dec, [facility] [address] [id number] [place] [address] Dec, [facility] [address] [id number] [place] [address] Nov, [facility] [address] [id number] [place] [address] Nov, [facility] [address] [id number] [place] [address] October, [facility] [address] [id number] [place] [address] October, [facility] [address] [id number] [place] [address] October, [facility] [address] [id number] [place] [address] Sep, [facility] [address] [id number] [place] [address] Sep, [facility] [address] [id number] [place] [address]29 30 Aug, 2011 [facility] [place] [facility] [address] [id number] [place] [address]390 28 Aug, 2011 [facility] [place] [facility] [address] [id number] [place] [address] 5936 Aug, [facility] [address] [id number] [place] [address] 3986 Aug, [facility] [place] [facility] [address] [id number] [place] [address]- 9428 12 Aug, 2011 [facility] [place] [facility] [address] [id number] [place] [address]- 7026 14 Aug, 2011 [facility] [place] [facility] [address] [id number] [place] [address]- 6946 07 Aug, 2011 [facility] [place] [facility] [address] [id number] [place] [address]101 Jul, [facility] [place] [facility] [address] [id number] [place] [address] 1261 Jul, [facility] [place] [facility] [address] [id number] [place] [address]- 9869 Jul, [facility] [place] [facility] [address] [id number] [place] [address] 8425 28 May, 2011 [facility] [place] [facility] [address] [id number] [place] [address]257 28 May, 2011 [facility] [place] [facility] [address] [id number] [place] [address]852 May, [facility] [place] [facility] [address] [id number], [place] [address] May, [facility] [place] [facility] [address] [id number], [place] [address] May, [facility] [place] [facility] [address] [id number], [place] [address]16 May, [facility] [place] [facility] [address] [id number] [place] [address]- 7939 May, [facility] [place] [facility] [address] [id number], [place] [address] 25 Mar, 2011 [facility] [place] [facility] [address] [id number], [place] [address] Mar, [facility] [place] [facility] [address] [id number], [place] [address] Mar, [facility] [id number] [address] Mar, [facility] [id number] [address] Mar, [facility] [id number] [address] Mar, [facility] [id number] [place] [address]138 Jan, [facility] [id number] [place] [address] May, [facility] [id number] [place] [address]- 86[address] May, [facility] [id number] [place] [address]- 4[address] May, [facility] [id number], [place] [address] May, [facility] [id number] [place] [address]- 4[address] May, [facility] [id number] [address] May, [facility] [id number], [place] [address] Mar, [facility] [id number] [address] Sep, IMMUNIZATIONS No Known Immunizations SOCIAL HISTORY Never Assessed REASON FOR VISIT Everette note PLAN OF CARE VITAL SIGNS MEDICATIONS Medication Instructions Dosage Frequency Start Date End Date Duration Status Sklice 0.5 % Externally as directed Massage thoroughly into dry hair and scalp. Leave in for 10 minutes. Rinse with warm water. Nov, Nov, 1 dose Active RESULTS No Results PROCEDURES No Known [...]
--- OUTSIDE RECORDS SUMMARY | 2017-10-07 21:42 | XMS REPORT ---
Author Author MARIA DE JESUS MERCADO [facility] Address [address] [place] [address] Care Team Providers Care Florist Manager Name Role Phone MARIA DE JESUS MERCADO Unavailable PROBLEMS Type Condition ICD9-CM Code [id number] Code Onset Dates Condition Status SNOMED Code Problem Gastroesophageal reflux disease without esophagitis K21.9 Active 663426601 Problem Acute pain of left shoulder M25.512 Active 55066096 Problem Seasonal allergic rhinitis due to pollen J30.1 Active 51628246 Problem Forgetfulness R68.89 Active 83760841 Problem Headache R51 Active 13153577 Problem Anxiety F41.9 Active 05468372 Problem Back pain with right-sided radiculopathy M54.10 Active 698122740 Problem Lumbago with sciatica, right side M54.41 Active 22232424 Problem Lumbago with sciatica, left side M54.42 Active 98203423 Problem Other chronic pain G89.29 Active 05907869 Problem Mild persistent asthma with acute exacerbation J45.31 Active 200055870863804 Problem Migraine without aura and without status migrainosus, not intractable G43.009 Active 087129710 Problem Intractable migraine with aura with status migrainosus G43.111 Active 440308161 ALLERGIES Unknown Allergies SOCIAL HISTORY No smoking Hx information available PLAN OF CARE VITAL SIGNS MEDICATIONS Unknown Medications RESULTS No Results PROCEDURES No Known procedures IMMUNIZATIONS No Known Immunizations
--- OUTSIDE RECORDS SUMMARY | 2017-10-07 21:44 | XMS REPORT ---
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 [address] [id number] [place] [address]- 2029 Jan, [facility] [place] [facility] [address] [id number] [place] [address]- 8270 Jan, [facility] [place] [facility] [address] [id number] [place] [address]- 2892 Jan, [facility] [place] [facility] [address] [id number] [place] [address]- 7045 Jan, [facility] [place] [facility] [address] [id number] [place] [address]- 6437 Jan, [facility] [place] [facility] [address] [id number] [place] [address]- 2290 Jan, [facility] [place] [facility] [address] [id number] [place] [address]- 7293 Dec, [facility] [place] [facility] [address] [id number] [place] [address]- 5726 Dec, [facility] [place] [facility] [address] [id number] [place] [address]- 5325 Dec, [facility] [place] [facility] [address] [id number] [place] [address]- 0232 Dec, [facility] [place] [facility] [address] [id number] [place] [address]- 1833 Dec, [facility] [place] [facility] [address] [id number] [place] [address]- 4008 Dec, [facility] [place] [facility] [address] [id number] [place] [address]- 5315 Dec, [facility] [place] [facility] [address] [id number] [place] [address]- 0600 11 Dec, 2013 [facility] [place] [facility] [address] [id number] [place] [address]- 2103 Dec, [facility] [place] [facility] [address] [id number] [place] [address]- 9319 October, [facility] [place] [facility] [address] [id number] [place] [address]- 5669 October, [facility] [place] [facility] [address] [id number] [place] [address]- 6842 Sep, [facility] [place] [facility] [address] [id number] [place] [address]- 4917 Sep, [facility] [place] [facility] [address] [facility] [id number] [place] [address]- 1161 Aug, [facility] [place] [facility] [address] [facility] [id number] [place] [address]- 1597 Aug, [facility] [place] [facility] [address] [facility] [id number] [place] [address]- 9345 Aug, [facility] [place] [facility] [address] [id number] [place] [address]- 0474 Aug, [facility] [place] [facility] [address] [facility] [id number] [place] [address]- 1589 17 Aug, 2013 [facility] [place] [facility] [address] [facility] [id number] [place] [address]- 2787 17 Aug, 2013 [facility] [place] [facility] [address] [facility] [id number] [place] [address]- 3037 14 Aug, 2013 [facility] [place] [facility] [address] [id number] [place] [address]- 4492 07 Aug, 2013 [facility] [place] [facility] [address] [facility] [id number] [place] [address]- 2409 07 Aug, 2013 [facility] [place] [facility] [address] [facility] [id number] [place] [address]- 0096 Aug, [facility] [address] [id number] [place] [address]- 0963 Aug, [facility] [place] [facility] [address] [id number] [place] [address]- 4401 Jul, [facility] [place] [facility] [address] [id number] [place] [address]- 6403 Jul, [facility] [place] [facility] [address] [id number] [place] [address]- 5609 May, [facility] [place] [facility] [address] [id number] [place] [address]- 6123 May, [facility] [place] [facility] [address] [id number] [place] [address]- 2073 May, [facility] [place] [facility] [address] [id number] [place] [address]- 5644 May, [facility] [place] [facility] [address] [id number] [place] [address]- 9151 May, [facility] [place] [facility] [address] [id number] [place] [address]- 2011 May, [facility] [place] [facility] [address] [id number] [place] [address]- 7586 May, [facility] [place] [facility] [address] [id number] [place] [address]- 2466 May, [facility] [place] [facility] [address] [id number], [place] [address]- 6771 May, [facility] [place] [facility] [address] [id number] [place] [address]- 4423 May, [facility] [place] [facility] [address] [id number] [place] [address]- 0813 May, [facility] [place] [facility] [address] [id number] [place] [address]- 9593 May, [facility] [place] [facility] [address] [id number] [place] [address]- 8440 20 May, 2013 [facility] [address] [id number] [place] [address]- 7055 20 May, 2013 [facility] [place] [facility] [address] [id number] [place] [address]- 4038 19 May, 2013 [facility] [place] [facility] [address] [id number] [place] [address]- 9215 19 May, 2013 [facility] [place] [facility] [address] [id number] [place] [address]- 2051 18 May, 2013 [facility] [place] [facility] [address] [id number] [place] [address]- 2566 18 May, 2013 [facility] [place] [facility] [address] [id number] [place] [address]- 8756 16 May, 2013 [facility] [place] [facility] [address] [id number] [place] [address]- 4243 16 May, 2013 [facility] [place] [facility] [address] [id number] [place] [address]- 7717 May, [facility] [place] [facility] [address] [id number] [place] [address]- 8399 May, [facility] [place] [facility] [address] [facility] [id number] [place] [address]- 2875 May, [facility] [place] [facility] [address] [id number] [place] [address]- 7906 May, [facility] [place] [facility] [address] [id number], [place] [address]- 1349 May, [facility] [place] [facility] [address] [id number] [place] [address]- 6060 May, [facility] [place] [facility] [address] [id number] [place] [address]- 4732 May, [facility] [place] [facility] [address] [id number], [place] [address]- 7414 07 May, 2013 [facility] [place] [facility] [address] [id number] [place] [address]- 6141 May, [facility] [place] [facility] [address] [id number] [place] [address]- 9173 May, [facility] [place] [facility] [address] [id number] [place] [address]- 9506 Mar, [facility] [place] [facility] [address] [id number] [place] [address]- 6669 Mar, [facility] [place] [facility] [address] [id number] [place] [address]- 2067 Mar, [facility] [place] [facility] [address] [id number] [place] [address]- 1861 Mar, [facility] [place] [facility] [address] [id number] [place] [address]- 0081 Mar, [facility] [place] [facility] [address] [id number] [place] [address]- 2773 Mar, [facility] [place] [facility] [address] [id number] [place] [address]- 2919 Mar, [facility] [place] [facility] [address] [id number] [place] [address]- 6749 Mar, [facility] [place] [facility] [address] [id number] [place] [address]- 5073 Mar, [facility] [place] [facility] [address] [id number] [place] [address] Mar, [facility] [place] [facility] [address] [id number] [place] [address] Mar, [facility] [place] [facility] [address] [id number] [place] [address] Mar, [facility] [place] [facility] [address] [id number] [place] [address] Mar, [facility] [place] [facility] [address] [id number] [place] [address]- [address] 23 Mar, 2013 [facility] [place] [facility] [address] [id number] [place] [address]- [address]3 22 Mar, 2013 [facility] [place] [facility] [address] [id number] [place] [address]- [address] Mar, [facility] [place] [facility] [address] [id number] [place] [address] Mar, [facility] [place] [facility] [address] [id number] [place] [address]- [address]24 18 Mar, 2013 [facility] [place] [facility] [address] [id number] [place] [address]- [address]14 18 Mar, 2013 [facility] [place] [facility] [address] [id number] [place] [address]- [address]274 18 Mar, 2013 [facility] [place] [facility] [address] [id number] [place] [address]- 6702 18 Mar, 2013 [facility] [place] [facility] [address] [id number] [place] [address]- 8427 14 Mar, 2013 [facility] [place] [facility] [address] [id number] [place] [address]- 8978 14 Mar, 2013 [facility] [place] [facility] [address] [id number] [place] [address]- 6786 10 Mar, 2013 [facility] [place] [facility] [address] [id number], [place] [address] 18 Mar, 2013 [facility] [place] [facility] [address] [id number], [place] [address] 12 Mar, 2013 [facility] [place] [facility] [address] [id number] [place] [address]- [address]48 Mar, [facility] [place] [facility] [address] [id number], [place] [address] Jan, [facility] [place] [facility] [address] [id number] [place] [address]- [address]168 October, [facility] [place] [facility] [address] [id number] [place] [address]- [address]134 22 Sep, 2012 [facility] [address] [id number] [place] [address]- 8166 15 Sep, 2012 [facility] [place] [facility] [address] [id number] [place] [address] 2546 07 Aug, 2012 [facility] [address] [id number] [place] [address] 2546 06 Aug, 2012 [facility] [address] [id number] [place] [address] 2540 04 Aug, 2012 [facility] [address] [id number] [place] [address]- 9308 17 Jul, 2012 [facility] [address] [id number] [place] [address]- 5988 19 May, 2012 [facility] [address] [id number] [place] [address]- 0607 19 May, 2012 [facility] [address] [id number] [place] [address]- 1737 18 May, 2012 [facility] [address] [facility] [id number] [place] [address]226 18 May, 2012 [facility] [address] [facility] [id number] [place] [address]- 8920 19 Mar, 2012 [facility] [place] [facility] [address] [id number] [place] [address] 2545 19 Mar, 2012 [facility] [address] [id number], [place] [address] 2543 16 Mar, 2012 [facility] [place] [facility] [address] [id number] [place] [address]- 3706 25 Mar, 2012 [facility] [place] [facility] [address] [id number] [place] [address] 2546 19 Sep2011 [facility] [place] [facility] [address] [id number] [place] [id number] 13 Mar, 2012 [facility] [place] [facility] [address] [id number] [place] [address]- 7778 07 Mar, 2012 [facility] [place] [facility] [address] [id number] [place] [address]- [address]281 Jan, [facility] [place] [facility] [address] [id number] [place] [address]- 4380 Jan, [facility] [place] [facility] [address] [id number] [place] [address]- 2193 Jan, [facility] [place] [facility] [address] [id number] [place] [address]- 5008 Jan, [facility] [place] [facility] [address] [id number] [place] [address]- 6669 Jan, [facility] [place] [facility] [address] [id number] [place] [address]- 6788 Jan, [facility] [place] [facility] [address] [id number] [place] [address]- 8596 Jan, [facility] [place] [facility] [address] [id number] [place] [address]- 0827 Jan, [facility] [place] [facility] [address] [id number] [place] [address]- 4889 Jan, [facility] [place] [facility] [address] [id number] [place] [address]- 50[address] Jan, [facility] [place] [facility] [address] [id number] [place] [address]- 2539 Jan, [facility] [place] [facility] [address] [id number] [place] [address]- 5809 Jan, [facility] [place] [facility] [address] [id number] [place] [address]- 0331 Jan, [facility] [place] [facility] [address] [id number] [place] [address]- 8818 Jan, [facility] [place] [facility] [address] [id number] [place] [address]- 3570 Jan, [facility] [address] [id number] [place] [address]- 4176 Jan, [facility] [place] [facility] [address] [id number] [place] [address]- 7920 Dec, [facility] [place] [facility] [address] [id number] [place] [address] 2546 Dec, [facility] [place] [facility] [address] [id number] [place] [address]- 6933 Nov, [facility] [place] [facility] [address] [id number] [place] [address] Nov, [facility] [place] [facility] [address] [id number] [place] [address] October, [facility] [address] [id number] [place] [address] October, [facility] [place] [facility] [address] [id number] [place] [address] October, [facility] [place] [facility] [address] [id number] [place] [address] Sep, [facility] [place] [facility] [address] [id number] [place] [address] Sep, [facility] [place] [facility] [address] [id number] [place] [address] 30 Aug, 2011 [facility] [place] [facility] [address] [id number] [place] [address] Aug, [facility] [place] [facility] [address] [id number] [place] [address] Aug, [facility] [place] [facility] [address] [id number] [place] [address] Aug, [facility] [place] [facility] [address] [id number] [place] [address] Aug, [facility] [place] [facility] [address] [id number] [place] [address] 14 Aug, 2011 [facility] [place] [facility] [address] [id number] [place] [address] 07 Aug, 2011 [facility] [place] [facility] [address] [id number] [place] [address] Jul, [facility] [place] [facility] [address] [id number] [place] [address] Jul, [facility] [place] [facility] [address] [id number] [place] [address] Jul, [facility] [place] [facility] [address] [id number] [place] [address] May, [facility] [place] [facility] [address] [id number] [place] [address] May, [facility] [place] [facility] [address] [id number] [place] [address] May, [facility] [place] [facility] [address] [id number] [place] [address] May, [facility] [place] [facility] [address] [id number] [place] [address] May, [facility] [place] [facility] [address] [id number] [place] [address] May, [facility] [place] [facility] [address] [id number] [place] [address] May, [facility] [place] [facility] [address] [id number] [place] [address] Mar, [facility] [place] [facility] [address] [id number] [place] [address] Mar, [facility] [place] [facility] [address] [id number] [place] [address] Mar, [facility] [place] [facility] [address] [id number], [place] [address] Mar, [facility] [address] [id number] [address] Mar, [facility] [id number] [address] Mar, [facility] [id number], [place] [address] Jan, [facility] [id number] [address] May, [facility] [id number], [place] [address] May, [facility] [id number], [place] [address] May, [facility] [id number] [address] May, [facility] [id number], [place] [address] May, [facility] [id number], [place] [address] May, [facility] [id number], [place] [address] Mar, [facility] [address] [id number] [address] Sep, IMMUNIZATIONS No Known Immunizations SOCIAL HISTORY Never Assessed REASON FOR VISIT Triage PLAN OF CARE VITAL SIGNS MEDICATIONS Unknown [...]
--- OUTSIDE RECORDS SUMMARY | 2017-10-07 21:45 | XMS REPORT ---
Author Author MARIA DE JESUS MERCADO [facility] Address [address] [place] [address] Care Team Providers Care Safety Engineer Pressure Vessels Name Role Phone MARIA DE JESUS MERCADO Unavailable PROBLEMS Type Condition ICD9-CM Code PZA32-RE Code Onset Dates Condition Status SNOMED Code Problem Gastroesophageal reflux disease without esophagitis K21.9 Active 973830505 Problem Acute pain of left shoulder M25.512 Active 58613366 Problem Seasonal allergic rhinitis due to pollen J30.1 Active 61711102 Problem Forgetfulness R68.89 Active 59825924 Problem Headache R51 Active 96198180 Problem Anxiety F41.9 Active 26827162 Problem Back pain with right-sided radiculopathy M54.10 Active 110977064 Problem Lumbago with sciatica, right side M54.41 Active 77931221 Problem Lumbago with sciatica, left side M54.42 Active 68533276 Problem Other chronic pain G89.29 Active 61756849 Problem Mild persistent asthma with acute exacerbation J45.31 Active 947823668249393 Problem Migraine without aura and without status migrainosus, not intractable G43.009 Active 745181966 Problem Intractable migraine with aura with status migrainosus G43.111 Active 739325105 ALLERGIES No Information SOCIAL HISTORY Never Assessed PLAN OF CARE VITAL SIGNS MEDICATIONS Medication Instructions Dosage Frequency Start Date End Date Duration Status Toviaz 4 MG Orally Once a day 1 tablet 24h October, 90 days Active RESULTS No Results PROCEDURES No [...]
--- OUTSIDE RECORDS SUMMARY | 2017-10-07 21:45 | XMS REPORT ---
Author Author MARIA DE JESUS MERCADO [facility] Address [address] [place] [address] Care Team Providers Care Drafter Electromechanical Name Role Phone MARIA DE JESUS MERCADO Unavailable PROBLEMS Type Condition ICD9-CM Code [id number] Code Onset Dates Condition Status SNOMED Code Problem Gastroesophageal reflux disease without esophagitis K21.9 Active 886591138 Problem Acute pain of left shoulder M25.512 Active 20600497 Problem Seasonal allergic rhinitis due to pollen J30.1 Active 84987968 Problem Forgetfulness R68.89 Active 39647205 Problem Headache R51 Active 83940874 Problem Anxiety F41.9 Active 85641564 Problem Back pain with right-sided radiculopathy M54.10 Active 179762058 Problem Lumbago with sciatica, right side M54.41 Active 13877786 Problem Lumbago with sciatica, left side M54.42 Active 84913138 Problem Other chronic pain G89.29 Active 01270830 Problem Mild persistent asthma with acute exacerbation J45.31 Active 322107884195193 Problem Migraine without aura and without status migrainosus, not intractable G43.009 Active 554006244 Problem Intractable migraine with aura with status migrainosus G43.111 Active 023614774 ALLERGIES Substance Reaction Event Type Date Status MetFORMIN HCl ER shakiness, wt loss Drug Allergy Sep, Active Sulfamethoxazole-Trimethoprim Unknown Drug Allergy Sep, Active Septra Unknown Drug Allergy Sep, Active Penicillin V Potassium Unknown Drug Allergy Sep, Active Morphine Sulfate slept for 3 days Drug Allergy Sep, Active Depakote attempted Suicide Drug Allergy Sep, Active Bactrim Unknown Drug Allergy Sep, Active SOCIAL HISTORY Never Assessed PLAN OF CARE Activity Details Follow Up 4 Weeks Reason:back pain VITAL SIGNS Height 64 in 2016-10-11 Weight 126.8 lbs 2016-10-11 Temperature 98.3 degrees Fahrenheit 2016-10-11 Heart Rate 78 bpm 2016-10-11 Respiratory Rate 22 2016-10-11 BMI 21.76 kg/m2 2016-10-11 Blood pressure systolic 106 mmHg 2016-10-11 Blood pressure diastolic 78 mmHg 2016-10-11 MEDICATIONS Medication Instructions Dosage Frequency Start Date End Date Duration Status Xanax 1 MG Orally 3 times a day 1 tablet 8h Aug, 28 days Active Singulair 10 MG Orally Once a day 1 tablet in the evening 24h Active EpiPen 0.3 mg/0.3ml Intramuscular PRN Inject Mar, 1 dose Active Albuterol Sulfate (2.5 MG/3ML) 0.083% Inhalation Three times a day 3 ml 8h Aug, Active Albuterol 90 mcg/actuation 2 puffs by Inhalation route 4 times per day PRN Jul, Active Omeprazole 40 MG Orally Once a day 1 capsule 24h 90 days Active Lexapro 20 mg Orally Once a day 2 tablets 24h 90 days Active ZyrTEC 10 MG Orally Once a day #120 samples 1 tablet as needed Mar, Active Clonidine HCl 0.1 MG Orally Once a day 2 tablets at bedtime 24h Aug, Active Diclofenac Sodium 75 MG Orally Twice a day 1 tablet with food or milk 12h Active Promethazine-Codeine 6.25-10 MG/5ML Orally every 6 hrs 5 ml as needed 6h Aug, Active Test strips Test Strips as directed October, Active Baclofen 10 mg Orally Three times a day as needed 1 tablet with food or milk Active Claritin 10 MG Orally Once a day 1 tablet 24h 30 Active Hydrocodone-Acetaminophen 7.5-325 MG Orally 4 times a day 1 tablet as needed 6h May, 28 days Active Ventolin HFA 108 (90 Base) MCG/ACT Inhalation every 4 hrs 2 puffs as needed 4h Aug, Active Benztropine Mesylate 1 MG Orally 3 times a day 1 tablet 8h 90 days Active RESULTS No Results PROCEDURES [...]
--- OUTSIDE RECORDS SUMMARY | 2017-10-07 21:46 | XMS REPORT ---
Author Author MARIA DE JESUS MERCADO [facility] Address [address] [place] [address] Care Team Providers Care Photo Graphics Librarian Name Role Phone MARIA DE JESUS MERCADO Unavailable PROBLEMS Type Condition ICD9-CM Code EPO60-FH Code Onset Dates Condition Status SNOMED Code Problem Gastroesophageal reflux disease without esophagitis K21.9 Active 254514687 Problem Acute pain of left shoulder M25.512 Active 46540540 Problem Seasonal allergic rhinitis due to pollen J30.1 Active 75311912 Problem Forgetfulness R68.89 Active 54795000 Problem Headache R51 Active 56413526 Problem Anxiety F41.9 Active 14983429 Problem Back pain with right-sided radiculopathy M54.10 Active 434942701 Problem Lumbago with sciatica, right side M54.41 Active 45990309 Problem Lumbago with sciatica, left side M54.42 Active 38168651 Problem Other chronic pain G89.29 Active 73679094 Problem Mild persistent asthma with acute exacerbation J45.31 Active 288020588494196 Problem Migraine without aura and without status migrainosus, not intractable G43.009 Active 669641568 Problem Intractable migraine with aura with status migrainosus G43.111 Active 354732536 ALLERGIES Substance Reaction Event Type Date Status MetFORMIN HCl ER shakiness, wt loss Drug Allergy Aug, Active Sulfamethoxazole-Trimethoprim Unknown Drug Allergy Aug, Active Septra Unknown Drug Allergy Aug, Active Penicillin V Potassium Unknown Drug Allergy Aug, Active Morphine Sulfate slept for 3 days Drug Allergy Aug, Active Bactrim Unknown Drug Allergy Aug, Active SOCIAL HISTORY Never Assessed PLAN OF CARE Activity Details Follow Up 3 Months Reason:anxiety VITAL SIGNS Height 64 in 2016-08-16 Weight 126.2 lbs 2016-08-16 Temperature 98.4 degrees Fahrenheit 2016-08-16 Heart Rate 74 bpm 2016-08-16 Respiratory Rate 18 2016-08-16 BMI 21.66 kg/m2 2016-08-16 Blood pressure systolic 124 mmHg 2016-08-16 Blood pressure diastolic 78 mmHg 2016-08-16 MEDICATIONS Medication Instructions Dosage Frequency Start Date End Date Duration Status Xanax 1 MG Orally Twice a day 1 tablet as needed for anxiety 12h Aug, 28 days Active Albuterol 90 mcg/actuation 2 puffs by Inhalation route 4 times per day PRN Jul, Active EpiPen 0.3 MG/0.3ML (1:1000) Intramuscular PRN as directed Mar, 1 dose Active Blood Glucose Monitor 1 glucometer test blood sugars 12h October, Active Claritin 10 MG Orally Once a day 1 tablet 24h Active Lexapro 20 mg Orally Once a day 2 tablets 24h 90 days Active Benztropine Mesylate 1 MG Orally 3 times a day 1 tablet 8h 90 days Active Hydrocodone-Acetaminophen 7.5-325 MG Orally 4 times a day 1 tablet as needed 6h May, 28 days Active Omeprazole 40 MG Orally Once a day 1 capsule 24h 90 days Active Test strips Test Strips as directed October, Active RESULTS No Results PROCEDURES No Known [...]
--- OUTSIDE RECORDS SUMMARY | 2017-10-07 21:46 | XMS REPORT ---
Author Author MARIA DE JESUS MERCADO [facility] Address [address] [place] [address] Care Team Providers Care Air Hole Driller Name Role Phone MARIA DE JESUS MERCADO Unavailable PROBLEMS Type Condition ICD9-CM Code OND05-HN Code Onset Dates Condition Status SNOMED Code Problem Gastroesophageal reflux disease without esophagitis K21.9 Active 539992884 Problem Acute pain of left shoulder M25.512 Active 09199660 Problem Seasonal allergic rhinitis due to pollen J30.1 Active 19460783 Problem Forgetfulness R68.89 Active 09114769 Problem Headache R51 Active 61699723 Problem Anxiety F41.9 Active 88123035 Problem Back pain with right-sided radiculopathy M54.10 Active 378711111 Problem Lumbago with sciatica, right side M54.41 Active 55657139 Problem Lumbago with sciatica, left side M54.42 Active 96534852 Problem Other chronic pain G89.29 Active 69151607 Problem Mild persistent asthma with acute exacerbation J45.31 Active 191445544385442 Problem Migraine without aura and without status migrainosus, not intractable G43.009 Active 068927583 Problem Intractable migraine with aura with status migrainosus G43.111 Active 504685837 ALLERGIES No Information SOCIAL HISTORY Never Assessed PLAN OF CARE VITAL SIGNS MEDICATIONS Medication Instructions Dosage Frequency Start Date End Date Duration Status Relpax 20 MG Orally no more than twice a day 1 tablet as needed at onset of Migraine, may repeat in 2 hours if needed Nov, 30 days Active RESULTS No Results PROCEDURES [...]
--- OUTSIDE RECORDS SUMMARY | 2017-10-07 21:46 | XMS REPORT ---
Author Author MARIA DE JESUS MERCADO [facility] Address [address] [place] [address] Care Team Providers Care President Commercial [employer] Name Role Phone MARIA DE JESUS MERCADO Unavailable PROBLEMS Type Condition ICD9-CM Code JJT83-OI Code Onset Dates Condition Status SNOMED Code Problem Gastroesophageal reflux disease without esophagitis K21.9 Active 301180500 Problem Acute pain of left shoulder M25.512 Active 41656068 Problem Seasonal allergic rhinitis due to pollen J30.1 Active 04437969 Problem Forgetfulness R68.89 Active 29711711 Problem Headache R51 Active 94762236 Problem Anxiety F41.9 Active 90216096 Problem Back pain with right-sided radiculopathy M54.10 Active 511918237 Problem Lumbago with sciatica, right side M54.41 Active 74992281 Problem Lumbago with sciatica, left side M54.42 Active 60032792 Problem Other chronic pain G89.29 Active 89428877 Problem Mild persistent asthma with acute exacerbation J45.31 Active 243494263219104 Problem Migraine without aura and without status migrainosus, not intractable G43.009 Active 237465950 Problem Intractable migraine with aura with status migrainosus G43.111 Active 510172355 ALLERGIES No Information SOCIAL HISTORY Never Assessed PLAN OF CARE VITAL SIGNS MEDICATIONS Medication Instructions Dosage Frequency Start Date End Date Duration Status EpiPen 0.3 mg/0.3ml Intramuscular PRN Inject Mar, 1 dose Active RESULTS No Results PROCEDURES [...]
--- OUTSIDE RECORDS SUMMARY | 2017-10-07 21:46 | XMS REPORT ---
Author Author MARIA DE JESUS MERCADO Organization [facility] Address [address] [place] [address] Care Team Providers Care Owner Operator Name Role Phone MARIA DE JESUS MERCADO Unavailable PROBLEMS Type Condition ICD9-CM Code LVM65-FC Code Onset Dates Condition Status SNOMED Code Problem Gastroesophageal reflux disease without esophagitis K21.9 Active 462534524 Problem Acute pain of left shoulder M25.512 Active 77795298 Problem Seasonal allergic rhinitis due to pollen J30.1 Active 39444482 Problem Forgetfulness R68.89 Active 10713172 Problem Headache R51 Active 44532949 Problem Anxiety F41.9 Active 12464051 Problem Back pain with right-sided radiculopathy M54.10 Active 944200802 Problem Lumbago with sciatica, right side M54.41 Active 15263807 Problem Lumbago with sciatica, left side M54.42 Active 37599312 Problem Other chronic pain G89.29 Active 32970582 Problem Mild persistent asthma with acute exacerbation J45.31 Active 490082651390925 Problem Migraine without aura and without status migrainosus, not intractable G43.009 Active 951006008 Problem Intractable migraine with aura with status migrainosus G43.111 Active 236877190 ALLERGIES No Known Allergies SOCIAL HISTORY No [...]
--- OUTSIDE RECORDS SUMMARY | 2017-10-07 21:47 | XMS REPORT ---
Author Author MARIA DE JESUS MERCADO [facility] Address [address] [place] [address] Care Team Providers Care Senior Game Advisor Name Role Phone MARIA DE JESUS MERCADO Unavailable PROBLEMS Type Condition ICD9-CM Code YZI24-NL Code Onset Dates Condition Status SNOMED Code Problem Gastroesophageal reflux disease without esophagitis K21.9 Active 966232814 Problem Acute pain of left shoulder M25.512 Active 25406392 Problem Seasonal allergic rhinitis due to pollen J30.1 Active 84693063 Problem Forgetfulness R68.89 Active 85722197 Problem Headache R51 Active 62796472 Problem Anxiety F41.9 Active 17242001 Problem Back pain with right-sided radiculopathy M54.10 Active 685281421 Problem Lumbago with sciatica, right side M54.41 Active 24116261 Problem Lumbago with sciatica, left side M54.42 Active 36618310 Problem Other chronic pain G89.29 Active 02789152 Problem Mild persistent asthma with acute exacerbation J45.31 Active 825263354092376 Problem Migraine without aura and without status migrainosus, not intractable G43.009 Active 364497816 Problem Intractable migraine with aura with status migrainosus G43.111 Active 375000239 ALLERGIES No Information SOCIAL HISTORY Never Assessed PLAN OF CARE VITAL SIGNS MEDICATIONS Medication Instructions Dosage Frequency Start Date End Date Duration Status Zantac 150 MG Orally twice a day 1 tablet 12h 27 Aug, 2016 30 days Active RESULTS Name Result Date Reference Range Chest X-ray PA and Lateral 2016-09-25 PROCEDURES No Known procedures IMMUNIZATIONS No Known [...]
--- OUTSIDE RECORDS SUMMARY | 2017-10-07 21:50 | XMS REPORT | Continuity of Care Document ---
Author Author Formerly [facility] Address Unknown Phone Unavailable Allergies Active Description [...] isamar.retention 24 hr Drug Allergy N/A N/A 08/2013 Yes Xanax XR 2 mg tablet extended release 24 hr Drug Allergy N/A N/A 2013 Yes moxifloxacin [id number] Drug Allergy Mild tongue swelling 06/13/2016 Yes Penicillins [id number] Drug Allergy Mild N/A 06/13/2016 Yes Sulfa (Sulfonamide Antibiotics) [id number] Drug Allergy Unknown N/A 2015 Medications There is no data. Problems Date Dx Coded Attending Type Code Diagnosis Diagnosed By 02/06/2008 MARIA DE JESUS MERCADO APRN V58.69 Medication High Risk 02/06/2008 V58.69 Medication High Risk 02/06/2008 MARIA DE JESUS MERCADO APRN V58.69 Medication High Risk 02/06/2008 V58.69 Medication High Risk 02/06/2008 MARIA DE JESUS MERCADO APRN V58.69 Medication High Risk 02/06/2008 ROSALINO SULLIAVN APRN V58.69 Medication High Risk 02/06/2008 MARIA DE JESUS MERCADO APRN V58.69 Medication High Risk 02/06/2008 MARIA DE JESUS MERCADO APRN S V58.69 Medication High Risk 02/06/2008 MARIA DE JESUS MERCADO APRN S V58.69 Medication High Risk 02/06/2008 RUDY MOROCHO, [place] V58.69 Medication High Risk 02/06/2008 MONA FOLEY DO V58.69 Medication High Risk 02/06/2008 JESS SANTOSN, MARIA DE JESUS S V58.69 Medication High Risk 02/06/2008 JESS MMI TEACHER, MARIA DE JESUS S V58.69 Medication High Risk 02/06/2008 JESS MMI TEACHER, MARIA DE JESUS S V58.69 Medication High Risk 02/06/2008 JESS MMI TEACHER, MARIA DE JESUS S V58.69 Medication High Risk 02/06/2008 JESS MMI TEACHER, MARIA DE JESUS S V58.69 Medication High Risk 02/06/2008 JESS RUIZ, MARIA DE JESUS S V58.69 Medication High Risk 02/06/2008 MANNY ZAMUDIO, JUAN R Leonardo V58.69 Medication High Risk 02/06/2008 JESS MMI TEACHER, MARIA DE JESUS S V58.69 Medication High Risk 03/10/2008 JESS RUIZ, MARIA DE JESUS S [...] S 300.00 An Anxiety Unspec 03/10/2008 JESS RUIZ MARIA DE JESUS S 307.47 SI DYSSOMNIA NOS 03/10/2008 SULLIVAN MMI TEACHER, ROSALINO R 296.90 Unspecified Episodic Mood Disorder 03/10/2008 SULLIVAN MMI TEACHER, ROSALINO R 300.00 An Anxiety Unspec 03/10/2008 SULLIVAN MMI TEACHER, ROSALINO R 307.47 SI DYSSOMNIA NOS 03/10/2008 JESS MMI TEACHER, MARIA DE JESUS S 296.90 Unspecified Episodic Mood Disorder 03/10/2008 JESS MMI TEACHER, MARIA DE JESUS S 300.00 An Anxiety Unspec 03/10/2008 JESS MMI TEACHER, MARIA DE JESUS S 307.47 SI DYSSOMNIA NOS 03/10/2008 JESS MMI TEACHER, MARIA DE JESUS S 296.90 Unspecified Episodic Mood Disorder 03/10/2008 JESS MMI TEACHER, MARIA DE JESUS S 300.00 An Anxiety Unspec 03/10/2008 JESS SANTOSN, MARIA DE JESUS S 307.47 SI DYSSOMNIA NOS 03/10/2008 JESS MMI TEACHER, MARIA DE JESUS S 296.90 Unspecified Episodic [...] K 307.47 SI DYSSOMNIA NOS 03/10/2008 JESS RUIZ, MARIA DE JESUS S 296.90 Unspecified Episodic Mood Disorder 03/10/2008 JESS RUIZ, MARIA DE JESUS S 300.00 An Anxiety Unspec 03/10/2008 JESS RUZI, MARIA DE JESUS S 307.47 SI DYSSOMNIA NOS 03/10/2008 JESS MMI TEACHER, MARIA DE JESUS S 296.90 Unspecified Episodic Mood Disorder 03/10/2008 JESS MMI TEACHER, MARIA DE JESUS S 300.00 An Anxiety Unspec 03/10/2008 JESS RUIZ, MARIA DE JESUS S 307.47 SI DYSSOMNIA NOS 03/10/2008 JESS MMI TEACHER, MARIA DE JESUS S 296.90 Unspecified Episodic Mood Disorder 03/10/2008 JESS MMI TEACHER, MARIA DE JESUS S 300.00 An Anxiety Unspec 03/10/2008 JESS MMI TEACHER, MARIA DE JESUS S 307.47 SI DYSSOMNIA NOS 03/10/2008 JESS MMI TEACHER, MARIA DE JESUS S 296.90 Unspecified Episodic Mood Disorder 03/10/2008 JESS MMI TEACHER, MARIA DE JESUS S 300.00 An Anxiety Unspec 03/10/2008 JESS MMI TEACHER, MARIA DE JESUS S 307.47 SI DYSSOMNIA NOS 03/10/2008 JESS MMI TEACHER, MARIA DE JESUS S 296.90 Unspecified Episodic Mood Disorder 03/10/2008 JESS MMI TEACHER, MARIA DE JESUS S 300.00 An Anxiety Unspec 03/10/2008 JESS MMI TEACHER, MARIA ED JESUS S 307.47 SI DYSSOMNIA NOS 03/10/2008 JESS RUIZ, MARIA DE JESUS S 296.90 Unspecified Episodic Mood Disorder 03/10/2008 JESS MMI TEACHER, MARIA DE JESUS S 300.00 An Anxiety Unspec 03/10/2008 JESS MMI TEACHER, MARIA DE JESUS S 307.47 SI DYSSOMNIA [...] S 300.00 An Anxiety Unspec 03/10/2008 JESS MMI TEACHER, MARIA DE JESUS S 307.47 SI DYSSOMNIA NOS 04/08/2008 JESS RUIZ, MARIA DE JESUS S [...] Drug Medicinal And Biological Substance 04/08/2008 JESS MMI TEACHER, MARIA DE JESUS S 995.20 Unspecified Adverse Effect Of Unspecified Drug Medicinal And Biological Substance 04/08/2008 JESS SANTOSN, MARIA DE JESUS S 995.20 Unspecified Adverse Effect Of Unspecified Drug Medicinal And Biological Substance 04/08/2008 JESS MMI TEACHER, MARIA DE JESUS S 995.20 Unspecified Adverse Effect Of Unspecified Drug Medicinal And Biological Substance 04/08/2008 MT GRANT MD 995.20 Unspecified Adverse Effect Of Unspecified Drug Medicinal And Biological Substance 04/08/2008 MOAN FOLEY DO 995.20 Unspecified Adverse Effect Of [...] Drug Medicinal And Biological Substance 04/08/2008 JESS MMI TEACHER, MARIA DE JESUS S 995.20 Unspecified Adverse [...] Pain In Joint Involving Upper Arm 07/27/2008 JESS RUIZ MARIA DE JESUS S 719.42 Pain In Joint Involving Upper Arm 07/27/2008 ROSALINO SULLIVAN APRN R 719.42 Pain In Joint Involving Upper Arm 07/27/2008 JLUIS MERCADO APRNNDA S 719.42 Pain In Joint Involving Upper Arm 07/27/2008 JESS RUIZ, MARIA DE JESUS S 719.42 Pain In Joint Involving Upper Arm 07/27/2008 JLUIS MERCADO APRNNDA S 719.42 Pain In Joint Involving Upper Arm 07/27/2008 RUDY MOROCHO, [place] 719.42 Pain In Joint Involving Upper Arm 07/27/2008 MONA FOLEY DO 719.42 Pain In Joint Involving Upper Arm 07/27/2008 JLUIS MERCADO APRNNDA S 719.42 Pain In Joint Involving Upper Arm 07/27/2008 JESS RUIZ MARIA DE JESUS S 719.42 Pain In Joint Involving Upper Arm 07/27/2008 JESS RUIZ, MARIA DE JESUS S 719.42 Pain In Joint Involving Upper Arm 07/27/2008 JLUIS MERCADO APRNNDA S 719.42 Pain In Joint Involving Upper Arm 07/27/2008 JESS RUIZ MARIA DE JESUS S 719.42 Pain In Joint Involving Upper Arm 07/27/2008 JLUIS MERCADO APRNNDA S 719.42 Pain In Joint Involving Upper Arm 07/27/2008 MANNY ZAMUDIO, JUAN R Leonardo 719.42 Pain In Joint Involving Upper Arm 07/27/2008 JESS MMI TEACHER, MARIA DE JESUS S 719.42 Pain In Joint Involving Upper Arm 10/15/2008 JESS RUIZ MARIA DE JESUS S 790.29 Hyperglycemia 10/15/2008 790.29 Hyperglycemia 10/15/2008 JESS RUIZ, MARIA DE JESUS S 790.29 Hyperglycemia 10/15/2008 790.29 Hyperglycemia 10/15/2008 JESS RUIZ MARIA DE JESUS S 790.29 Hyperglycemia 10/15/2008 ROSALINO SULLIVAN APRN R 790.29 Hyperglycemia 10/15/2008 JESS MMI TEACHER, MARIA DE JESUS S 790.29 Hyperglycemia 10/15/2008 JESS MMI TEACHER, MARIA DE JESUS S 790.29 Hyperglycemia 10/15/2008 JESS MMI TEACHER, MARIA DE JESUS S 790.29 Hyperglycemia 10/15/2008 RUDY MOROCHO, [place] 790.29 Hyperglycemia 10/15/2008 MONA FOLEY DO 790.29 Hyperglycemia 10/15/2008 JESS MMI TEACHER, MARIA DE JESUS S 790.29 Hyperglycemia 10/15/2008 JESS MMI TEACHER, MARIA DE JESUS S 790.29 Hyperglycemia 10/15/2008 JESS MMI TEACHER, MARIA DE JESUS S 790.29 Hyperglycemia 10/15/2008 JESS MMI TEACHER, MARIA DE JESUS S 790.29 Hyperglycemia 10/15/2008 JESS MMI TEACHER, MARIA DE JESUS S 790.29 Hyperglycemia 10/15/2008 JESS MMI TEACHER, MARIA DE JESUS S 790.29 Hyperglycemia 10/15/2008 MANNY ZAMUDIO, JUAN R Leonardo 790.29 Hyperglycemia 10/15/2008 JESS MMI TEACHER, MARIA DE JESUS S 790.29 Hyperglycemia 12/31/2008 Ot 940.9 12/31/2008 Ot E849.0 12/31/2008 Ot E926.2 02/22/2009 JLUIS MERCADO APRNNDA S 300.4 DYSTHYMIC DISORDER 02/22/2009 JESS RUIZ, MARIA DE JESUS S 599.0 Urinary Tract Infection Site Not Specified 02/22/2009 300.4 DYSTHYMIC DISORDER 02/22/2009 599.0 Urinary Tract Infection Site Not Specified 02/22/2009 JLUIS MERCADO APRNNDA S 300.4 DYSTHYMIC DISORDER 02/22/2009 JESS RUIZ, MARIA DE JESUS S 599.0 Urinary Tract Infection Site Not Specified 02/22/2009 300.4 DYSTHYMIC DISORDER 02/22/2009 599.0 Urinary Tract Infection Site Not Specified 02/22/2009 JESS RUIZ MARIA DE JESUS S 300.4 DYSTHYMIC DISORDER 02/22/2009 JESS RUIZ MARIA DE JESUS S 599.0 Urinary Tract Infection Site Not Specified 02/22/2009 ROSALINO SULLIVAN APRN R 300.4 DYSTHYMIC DISORDER 02/22/2009 LAURIE MMI TEACHER, ROSALINO R 599.0 Urinary Tract Infection Site Not Specified 02/22/2009 JESS MMI TEACHER, MARIA DE JESUS S 300.4 DYSTHYMIC DISORDER 02/22/2009 JESS MMI TEACHER, MARIA DE JESUS S 599.0 Urinary Tract Infection Site Not Specified 02/22/2009 JESS MMI TEACHER, MARIA DE JESUS S 300.4 DYSTHYMIC DISORDER 02/22/2009 JESS MMI TEACHER, MARIA DE JESUS S 599.0 Urinary Tract Infection Site Not Specified 02/22/2009 JESS MMI TEACHER, MARIA DE JESUS S 300.4 DYSTHYMIC DISORDER 02/22/2009 JESS MMI TEACHER, MARIA DE JESUS S 599.0 Urinary Tract Infection Site Not Specified 02/22/2009 MT GRANT MD 300.4 DYSTHYMIC DISORDER 02/22/2009 MT GRANT MD 599.0 Urinary Tract Infection Site Not Specified 02/22/2009 FOLEY DO MONA K 300.4 DYSTHYMIC DISORDER 02/22/2009 FOLEY DO MONA K 599.0 Urinary Tract Infection Site Not Specified 02/22/2009 JESS MMI TEACHER, MARIA DE JESUS S 300.4 DYSTHYMIC DISORDER 02/22/2009 JESS MMI TEACHER, MARIA DE JESUS S 599.0 Urinary Tract Infection Site Not Specified 02/22/2009 JESS MMI TEACHER, MARIA DE JESUS S 300.4 DYSTHYMIC DISORDER 02/22/2009 JESS MMI TEACHER, MARIA DE JESUS S 599.0 Urinary Tract Infection Site Not Specified 02/22/2009 JESS MMI TEACHER, MARIA DE JESUS S 300.4 DYSTHYMIC DISORDER 02/22/2009 JESS MMI TEACHER, MARIA DE JESUS S 599.0 Urinary Tract Infection Site Not Specified 02/22/2009 JESS MMI TEACHER, MARIA DE JESUS S 300.4 DYSTHYMIC DISORDER 02/22/2009 JESS MMI TEACHER, MARIA DE JESUS S 599.0 Urinary Tract Infection Site Not Specified 02/22/2009 JESS MMI TEACHER, MARIA DE JESUS S 300.4 DYSTHYMIC DISORDER 02/22/2009 JESS MMI TEACHER, MARIA DE JESUS S 599.0 Urinary Tract Infection Site Not Specified 02/22/2009 JESS MMI TEACHER, MARIA DE JESUS S 300.4 DYSTHYMIC DISORDER 02/22/2009 JESS MMI TEACHER, MARIA DE JESUS S 599.0 Urinary Tract Infection Site Not Specified 02/22/2009 MANNY PHD, JUAN R Leonardo 300.4 DYSTHYMIC DISORDER 02/22/2009 MANNY PHD, JUAN R Leonardo 599.0 Urinary Tract Infection Site Not Specified 02/22/2009 JESS MMI TEACHER, MARIA DE JESUS S 300.4 DYSTHYMIC DISORDER 02/22/2009 JESS MMI TEACHER, MARIA DE JESUS S 599.0 Urinary Tract Infection Site Not Specified 06/15/2009 JESS MMI TEACHER, MARIA DE JESUS S V74.1 Screening Examination For Pulmonary Tuberculosis 06/15/2009 V74.1 Screening Examination For Pulmonary Tuberculosis 06/15/2009 JESS MMI TEACHER, MARIA DE JESUS S V74.1 Screening Examination For Pulmonary Tuberculosis 06/15/2009 V74.1 Screening Examination For Pulmonary Tuberculosis 06/15/2009 JESS MMI TEACHER, MARIA DE JESUS S V74.1 Screening Examination For Pulmonary Tuberculosis 06/15/2009 LAURIE RUIZ, ROSALINO R V74.1 Screening Examination For Pulmonary Tuberculosis 06/15/2009 JESS MMI TEACHER, MARIA DE JESUS S V74.1 Screening Examination For Pulmonary Tuberculosis 06/15/2009 JESS MMI TEACHER, MARIA DE JESUS S V74.1 Screening Examination For Pulmonary Tuberculosis 06/15/2009 JESS MMI TEACHER, MARIA DE JESUS S V74.1 Screening Examination For Pulmonary Tuberculosis 06/15/2009 RUDY MOROCHO, [place] V74.1 Screening Examination For Pulmonary Tuberculosis 06/15/2009 MONA FOLEY DO V74.1 Screening Examination For Pulmonary Tuberculosis 06/15/2009 JESS MMI TEACHER, MARIA DE JESUS S V74.1 Screening Examination For Pulmonary Tuberculosis 06/15/2009 JESS MMI TEACHER, MARIA DE JESUS S V74.1 Screening Examination For Pulmonary Tuberculosis 06/15/2009 JESS MMI TEACHER, MARIA DE JESUS S V74.1 Screening Examination For Pulmonary Tuberculosis 06/15/2009 JESS MMI TEACHER, MARIA DE JESUS S V74.1 Screening Examination For Pulmonary Tuberculosis 06/15/2009 JESS MMI TEACHER, MARIA DE JESUS S V74.1 Screening Examination For Pulmonary Tuberculosis 06/15/2009 JESS MMI TEACHER, MARIA DE JESUS S V74.1 Screening Examination For Pulmonary Tuberculosis 06/15/2009 MANNY ZAMUDIO, JUAN R Leonardo V74.1 Screening Examination For Pulmonary Tuberculosis 06/15/2009 JESS MMI TEACHER, MARIA DE JESUS S V74.1 Screening Examination For Pulmonary Tuberculosis 08/22/2009 JESS MMI TEACHER, MARIA DE JESUS S 465.9 Acute Upper Respiratory Infections Of Unspecified Site 08/22/2009 JESS MMI TEACHER, MARIA DE JESUS S 599.70 Hematuria, Unspecified 08/22/2009 465.9 Acute Upper Respiratory Infections Of Unspecified Site 08/22/2009 599.70 Hematuria, Unspecified 08/22/2009 JESS MMI TEACHER, MARIA DE JESUS S 465.9 Acute Upper Respiratory Infections Of Unspecified Site 08/22/2009 JESS MMI TEACHER, MARIA DE JESUS S 599.70 Hematuria, Unspecified 08/22/2009 465.9 Acute Upper Respiratory Infections Of Unspecified Site 08/22/2009 599.70 Hematuria, Unspecified 08/22/2009 JESS MMI TEACHER, MARIA DE JESUS S 465.9 Acute Upper Respiratory Infections Of Unspecified Site 08/22/2009 JESS MMI TEACHER, MARIA DE JESUS S 599.70 Hematuria, Unspecified 08/22/2009 SULLIVAN MMI TEACHER, ROSALINO R 465.9 Acute Upper Respiratory Infections Of Unspecified Site 08/22/2009 SULLIVAN MMI TEACHER, ROSALINO R 599.70 Hematuria, Unspecified 08/22/2009 JESS MMI TEACHER, MARIA DE JESUS S 465.9 Acute Upper Respiratory Infections Of Unspecified Site 08/22/2009 JESS MMI TEACHER, MARIA DE JESUS S 599.70 Hematuria, Unspecified 08/22/2009 JESS MMI TEACHER, MARIA DE JESUS S 465.9 Acute Upper Respiratory Infections Of Unspecified Site 08/22/2009 JESS MMI TEACHER, MARIA DE JESUS S 599.70 Hematuria, Unspecified 08/22/2009 JESS MMI TEACHER, MARIA DE JESUS S 465.9 Acute Upper Respiratory Infections Of Unspecified Site 08/22/2009 JESS MMI TEACHER, MARIA DE JESUS S 599.70 Hematuria, Unspecified 08/22/2009 MT GRANT MD 465.9 Acute Upper Respiratory Infections Of Unspecified Site 08/22/2009 MT GRANT MD 599.70 Hematuria, Unspecified 08/22/2009 MONA FOLEY DO 465.9 Acute Upper Respiratory Infections Of Unspecified Site 08/22/2009 MONA FOLEY DO K 599.70 Hematuria, Unspecified 08/22/2009 JESS MMI TEACHER, MARIA DE JESUS S 465.9 Acute Upper Respiratory Infections Of Unspecified Site 08/22/2009 JESS MMI TEACHER, MARIA DE JESUS S 599.70 Hematuria, Unspecified 08/22/2009 JESS MMI TEACHER, MARIA DE JESUS S 465.9 Acute Upper Respiratory Infections Of Unspecified Site 08/22/2009 JESS MMI TEACHER, MARIA DE JESUS S 599.70 Hematuria, Unspecified 08/22/2009 JESS MMI TEACHER, MARIA DE JESUS S 465.9 Acute Upper Respiratory Infections Of Unspecified Site 08/22/2009 JESS MMI TEACHER, MARIA DE JESUS S 599.70 Hematuria, Unspecified 08/22/2009 JESS MMI TEACHER, MARIA DE JESUS S 465.9 Acute Upper Respiratory Infections Of Unspecified Site 08/22/2009 JESS MMI TEACHER, MARIA DE JESUS S 599.70 Hematuria, Unspecified 08/22/2009 JESS MMI TEACHER, MARIA DE JESUS S 465.9 Acute Upper Respiratory Infections Of Unspecified Site 08/22/2009 JESS MMI TEACHER, MARIA DE JESUS S 599.70 Hematuria, Unspecified 08/22/2009 JESS MMI TEACHER, MARIA DE JESUS S 465.9 Acute Upper Respiratory Infections Of Unspecified Site 08/22/2009 JESS MMI TEACHER, MARIA DE JESUS S 599.70 Hematuria, Unspecified 08/22/2009 MANNY ZAMUDIO, JUAN R A 465.9 Acute Upper Respiratory Infections Of Unspecified Site 08/22/2009 MANNY ZAMUDIO, JUAN R A 599.70 Hematuria, Unspecified 08/22/2009 JESS MMI TEACHER, MARIA DE JESUS S 465.9 Acute Upper Respiratory Infections Of Unspecified Site 08/22/2009 JESS MMI TEACHER, MARIA DE JESUS S 599.70 Hematuria, Unspecified 08/24/2009 JESS MMI TEACHER, MARIA DE JESUS S 486 Pneumonia, Organism Unspecified 08/24/2009 486 Pneumonia, Organism Unspecified 08/24/2009 JESS MMI TEACHER, MARIA DE JESUS S 486 Pneumonia, Organism Unspecified 08/24/2009 486 Pneumonia, Organism Unspecified 08/24/2009 JESS MMI TEACHER, MARIA DE JESUS S 486 Pneumonia, Organism Unspecified 08/24/2009 SULLIVAN MMI TEACHER, ROSALINO R 486 Pneumonia, Organism Unspecified 08/24/2009 JESS MMI TEACHER, MARIA DE JESUS S 486 Pneumonia, Organism Unspecified 08/24/2009 JESS MMI TEACHER, MARIA DE JESUS S 486 Pneumonia, Organism Unspecified 08/24/2009 JESS MMI TEACHER, MARIA DE JESUS S 486 Pneumonia, Organism Unspecified 08/24/2009 RUDY MOROCHO, [place] 486 Pneumonia, Organism Unspecified 08/24/2009 MONA FOLEY DO 486 Pneumonia, Organism Unspecified 08/24/2009 JESS MMI TEACHER, MARIA DE JESUS S 486 Pneumonia, Organism Unspecified 08/24/2009 JESS MMI TEACHER, MARIA DE JESUS S 486 Pneumonia, Organism Unspecified 08/24/2009 JESS MMI TEACHER, MARIA DE JESUS S 486 Pneumonia, Organism Unspecified 08/24/2009 JESS MMI TEACHER, MARIA DE JESUS S 486 Pneumonia, Organism Unspecified 08/24/2009 JESS MMI TEACHER, MARIA DE JESUS S 486 Pneumonia, Organism Unspecified 08/24/2009 JESS MMI TEACHER, MARIA DE JESUS S 486 Pneumonia, Organism Unspecified 08/24/2009 MANNY PHD, JUAN R A 486 Pneumonia, Organism Unspecified 08/24/2009 JESS MMI TEACHER, MARIA DE JESUS S 486 Pneumonia, Organism Unspecified 08/26/2009 Ot 486 PNEUMONIA, ORGANISM NOS 08/26/2009 Ot 599.70 HEMATURIA, UNSPECIFIED 08/26/2009 Ot 786.2 02/07/2010 JESS MMI TEACHER, MARIA DE JESUS S 788.1 Dysuria 02/07/2010 788.1 Dysuria 02/07/2010 JESS MMI TEACHER, MARIA DE JESUS S 788.1 Dysuria 02/07/2010 788.1 Dysuria 02/07/2010 JESS MMI TEACHER, MARIA DE JESUS S 788.1 Dysuria 02/07/2010 LAURIE MMI TEACHER, ROSALINO R 788.1 Dysuria 02/07/2010 JESS MMI TEACHER, MARIA DE JESUS S 788.1 Dysuria 02/07/2010 JESS MMI TEACHER, MARIA DE JESUS S 788.1 Dysuria 02/07/2010 JESS MMI TEACHER, MARIA DE JESUS S 788.1 Dysuria 02/07/2010 RUDY MOROCHO, [place] 788.1 Dysuria 02/07/2010 MONA FOLEY DO 788.1 Dysuria 02/07/2010 JESS MMI TEACHER, MARIA DE JESUS S 788.1 Dysuria 02/07/2010 JESS MMI TEACHER, MARIA DE JESUS S 788.1 Dysuria 02/07/2010 JESS MMI TEACHER, MARIA DE JESUS S 788.1 Dysuria 02/07/2010 JESS MMI TEACHER, MARIA DE JESUS S 788.1 Dysuria 02/07/2010 JESS MMI TEACHER, MARIA DE JESUS S 788.1 Dysuria 02/07/2010 JESS MMI TEACHER, MARIA DE JESUS S 788.1 Dysuria 02/07/2010 MANNY ZAMUDIO, JUAN R A 788.1 Dysuria 02/07/2010 JESS MMI TEACHER, MARIA DE JESUS S 788.1 Dysuria 02/21/2010 JESS MMI TEACHER, MARIA DE JESUS S 346.90 Migraine Unspecified Without Intractable Migraine 02/21/2010 JESS MMI TEACHER, MARIA DE JESUS S 780.79 Fatigue 02/21/2010 346.90 Migraine Unspecified Without Intractable Migraine 02/21/2010 780.79 Fatigue 02/21/2010 JESS MMI TEACHER, MARIA DE JESUS S 346.90 Migraine Unspecified Without Intractable Migraine 02/21/2010 JESS MMI TEACHER, MARIA DE JESUS S 780.79 Fatigue 02/21/2010 346.90 Migraine Unspecified Without Intractable Migraine 02/21/2010 780.79 Fatigue 02/21/2010 JESS MMI TEACHER, MARIA DE JESUS S 346.90 Migraine Unspecified Without Intractable Migraine 02/21/2010 JESS MMI TEACHER, MARIA DE JESUS S 780.79 Fatigue 02/21/2010 LAURIE MMI TEACHER, ROSALINO R 346.90 Migraine Unspecified Without Intractable Migraine 02/21/2010 SULLIVAN MMI TEACHER, ROSALINO R 780.79 Fatigue 02/21/2010 JESS MMI TEACHER, MARIA DE JESUS S 346.90 Migraine Unspecified Without Intractable Migraine 02/21/2010 JESS MMI TEACHER, MARIA DE JESUS S 780.79 Fatigue 02/21/2010 JESS MMI TEACHER, MARIA DE JESUS S 346.90 Migraine Unspecified Without Intractable Migraine 02/21/2010 JESS MMI TEACHER, MARIA DE JESUS S 780.79 Fatigue 02/21/2010 JESS MMI TEACHER, MARIA DE JESUS S 346.90 Migraine Unspecified Without Intractable Migraine 02/21/2010 JESS MMI TEACHER, MARIA DE JESUS S 780.79 Fatigue 02/21/2010 MT GRANT MD 346.90 Migraine Unspecified Without Intractable Migraine 02/21/2010 MT GRANT MD 780.79 Fatigue 02/21/2010 FOLEY MONA TRUONG K 346.90 Migraine Unspecified Without Intractable Migraine 02/21/2010 FOLEY DOMONA K 780.79 Fatigue 02/21/2010 JESS MMI TEACHER, MARIA DE JESUS S 346.90 Migraine Unspecified Without Intractable Migraine 02/21/2010 JESS MMI TEACHER, MARIA DE JESUS S 780.79 Fatigue 02/21/2010 JESS MMI TEACHER, MARIA DE JESUS S 346.90 Migraine Unspecified Without Intractable Migraine 02/21/2010 JESS MMI TEACHER, MARIA DE JESUS S 780.79 Fatigue 02/21/2010 JESS MMI TEACHER, MARIA DE JESUS S 346.90 Migraine Unspecified Without Intractable Migraine 02/21/2010 JESS MMI TEACHER, MARIA DE JESUS S 780.79 Fatigue 02/21/2010 JESS MMI TEACHER, MARIA DE JESUS S 346.90 Migraine Unspecified Without Intractable Migraine 02/21/2010 JESS MMI TEACHER, MARIA DE JESUS S 780.79 Fatigue 02/21/2010 JESS MMI TEACHER, MARIA DE JESUS S 346.90 Migraine Unspecified Without Intractable Migraine 02/21/2010 JESS MMI TEACHER, MARIA DE JESUS S 780.79 Fatigue 02/21/2010 JESS MMI TEACHER, MARIA DE JESUS S 346.90 Migraine Unspecified Without Intractable Migraine 02/21/2010 JESS MMI TEACHER, MARIA DE JESUS S 780.79 Fatigue 02/21/2010 JUAN R BRYANT PHD 346.90 Migraine Unspecified Without Intractable Migraine 02/21/2010 JUAN R BRYANT PHD 780.79 Fatigue 02/21/2010 JESS MMI TEACHER, MARIA DE JESUS S 346.90 Migraine Unspecified Without Intractable Migraine 02/21/2010 JESS MMI TEACHER, MARIA DE JESUS S 780.79 Fatigue 05/13/2010 Ot 920 CONTUSION FACE/ SCALP/NCK 05/13/2010 Ot 923.11 CONTUSION OF ELBOW 05/13/2010 [...] JLUIS MERCADO APRNNDA S 276.8 Hypokalemia 09/06/2010 JLUIS MERCADO APRNNDA S 276.8 Hypokalemia 09/06/2010 MT GRANT MD 276.8 Hypokalemia 09/06/2010 MONA FOLEY DO 276.8 [...] ZAMUDIO, JUAN R Leonardo 276.8 Hypokalemia 09/06/2010 JESS RUIZ MARIA DE JESUS S 276.8 Hypokalemia 10/02/2010 BRIONNA MERCADO APRNA S 300.02 AN GEN ANXIETY 10/02/2010 BRIONNA MERCADO APRNA S 309.81 AN PTSD 10/02/2010 300.02 AN GEN ANXIETY 10/02/2010 309.81 AN PTSD 10/02/2010 JLUIS MERCADO APRNNDA S 300.02 AN GEN ANXIETY 10/02/2010 JLUIS MERCADO APRNNDA S 309.81 AN PTSD 10/02/2010 300.02 AN GEN ANXIETY 10/02/2010 309.81 AN PTSD 10/02/2010 JESS RUIZ MARIA DE JESUS S 300.02 AN GEN ANXIETY 10/02/2010 JLUIS MERCADO APRNNDA S 309.81 AN PTSD 10/02/2010 LAURIE MMI TEACHER, ROSALINO R 300.02 AN GEN ANXIETY 10/02/2010 LAURIE MMI TEACHER, ROSALINO R 309.81 AN PTSD 10/02/2010 JLUIS [...] GRANT MD 309.81 AN PTSD 10/02/2010 FOLEY DOMONA K 300.02 AN GEN ANXIETY 10/02/2010 FOLEY [...] DE JESUS S 309.81 AN PTSD 10/02/2010 JLUIS MERCADO APRNNDA S 300.02 AN GEN ANXIETY 10/02/2010 JESS MMI TEACHER, MARIA DE JESUS S 309.81 AN PTSD 10/02/2010 JESS MMI TEACHER, MARIA DE JESUS S 300.02 AN GEN ANXIETY 10/02/2010 JESS MMI TEACHER, MARIA DE JESUS S 309.81 AN PTSD 10/02/2010 JESS MMI TEACHER, MARIA DE JESUS S 300.02 AN GEN ANXIETY 10/02/2010 JESS MMI TEACHER, MARIA DE JESUS S 309.81 AN PTSD 10/02/2010 MANNY PHD, JUAN R A 300.02 AN GEN ANXIETY 10/02/2010 MANNY PHD, JUAN R A 309.81 AN PTSD 10/02/2010 JESS MMI TEACHER, MARIA DE JESUS S 300.02 AN GEN ANXIETY 10/02/2010 JESS RUIZ, MARIA DE JESUS S 309.81 AN PTSD 10/23/2010 Ot 790.29 OTHER ABNORMAL GLUCOSE 10/23/2010 Ot V18.0 FAM HX- DIABETES MELLITUS 11/01/2010 JESS RUIZ, MARIA DE JESUS S 300.82 SO SOMATOFORM NOS 11/01/2010 300.82 SO SOMATOFORM NOS 11/01/2010 JESS SANTOSN, MARIA DE JESUS S 300.82 SO SOMATOFORM NOS 11/01/2010 300.82 SO SOMATOFORM NOS 11/01/2010 JESS SANTOSN, MARIA DE JESUS S 300.82 SO SOMATOFORM NOS 11/01/2010 ROSALINO SULLIVAN APRN 300.82 SO SOMATOFORM NOS 11/01/2010 JESS MMI TEACHER, MARIA DE JESUS S 300.82 SO SOMATOFORM NOS 11/01/2010 JESS RUIZ, MARIA DE JESUS S 300.82 SO SOMATOFORM NOS 11/01/2010 JESS MMI TEACHER, MARIA DE JESUS S 300.82 SO SOMATOFORM NOS 11/01/2010 MT GRANT MD 300.82 SO SOMATOFORM NOS 11/01/2010 MONA FOLEY DO 300.82 SO SOMATOFORM NOS 11/01/2010 JESS MMI TEACHER, MARIA DE JESUS S 300.82 SO SOMATOFORM NOS 11/01/2010 JESS MMI TEACHER, MARIA DE JESUS S 300.82 SO SOMATOFORM NOS 11/01/2010 JESS MMI TEACHER, MARIA DE JESUS S 300.82 SO SOMATOFORM NOS 11/01/2010 JESS MMI TEACHER, MARIA DE JESUS S 300.82 SO SOMATOFORM NOS 11/01/2010 JESS RUIZ, MARIA DE JESUS S 300.82 SO SOMATOFORM NOS 11/01/2010 JLUIS MERCADO APRNNDA S 300.82 SO SOMATOFORM NOS 11/01/2010 MANNY ZAMUDIO, JUAN R A 300.82 SO SOMATOFORM NOS 11/01/2010 JESS RUIZ, MARIA DE JESUS S 300.82 SO SOMATOFORM NOS 11/07/2010 Ot [...] 300.21 AN PANIC DIS W AGORA 11/08/2010 JLUIS MERCADO APRNNDA S 300.21 AN PANIC DIS W AGORA 11/08/2010 MT GRANT MD 300.21 AN PANIC DIS W AGORA 11/08/2010 MONA FOLEY DO 300.21 AN PANIC DIS W AGORA 11/08/2010 JLUIS MERCADO APRNNDA S 300.21 AN PANIC DIS W AGORA 11/08/2010 JLUIS MERCADO APRNNDA S 300.21 AN PANIC DIS W AGORA 11/08/2010 JLUIS MERCADO APRNNDA S 300.21 AN PANIC DIS W AGORA 11/08/2010 JLUIS MERCADO APRNNDA S 300.21 AN PANIC DIS W AGORA 11/08/2010 JLUIS MERCADO APRNNDA S 300.21 AN PANIC DIS W AGORA 11/08/2010 BRIONNA MERCADO APRNA S 300.21 AN PANIC DIS W AGORA 11/08/2010 MANNY PHD, JUAN R Leonardo 300.21 AN PANIC DIS W AGORA 11/08/2010 JESS MMI TEACHER, MARIA DE JESUS S 300.21 AN PANIC DIS W AGORA 11/12/2010 Ot 306.1 PSYCHOGENIC RESPIR DIS 11/12/2010 Ot 786.05 SHORTNESS OF BREATH 11/14/2010 Ot 300.00 ANXIETY STATE NOS 11/14/2010 Ot 788.0 RENAL COLIC 11/14/2010 Ot 789.09 ABDOMINAL PAIN, OTHER SPECIFIED SITE 11/21/2010 Ot 300.00 ANXIETY STATE NOS 11/21/2010 Ot 305.60 COCAINE ABUSE-UNSPEC 11/21/2010 Ot 599.72 MICROSCOPIC HEMATURIA 11/21/2010 Ot 788.1 DYSURIA 04/24/2011 JESS MMI TEACHER, MARIA DE JESUS S 338.29 Other Chronic Pain 04/24/2011 338.29 Other Chronic Pain 04/24/2011 JESS MMI TEACHER, MARIA DE JESUS S 338.29 Other Chronic Pain 04/24/2011 338.29 Other Chronic Pain 04/24/2011 JESS MMI TEACHER, MARIA DE JESUS S 338.29 Other Chronic Pain 04/24/2011 LAURIE SANTOSN, ROSALINO R 338.29 Other Chronic Pain 04/24/2011 JESS MMI TEACHER, MARIA DE JESUS S 338.29 Other Chronic Pain 04/24/2011 JESS MMI TEACHER, MARIA DE JESUS S 338.29 Other Chronic Pain 04/24/2011 JESS MMI TEACHER, MARIA DE JESUS S 338.29 Other Chronic Pain 04/24/2011 RUDY MOROCHO, [place] 338.29 Other Chronic Pain 04/24/2011 MONA FOLEY DO 338.29 Other Chronic Pain 04/24/2011 JESS MMI TEACHER, MARIA DE JESUS S 338.29 Other Chronic Pain 04/24/2011 JESS MMI TEACHER, MARIA DE JESUS S 338.29 Other Chronic Pain 04/24/2011 JESS MMI TEACHER, MARIA DE JESUS S 338.29 Other Chronic Pain 04/24/2011 JESS MMI TEACHER, MARIA DE JESUS S 338.29 Other Chronic Pain 04/24/2011 JESS MMI TEACHER, MARIA DE JESUS S 338.29 Other Chronic Pain 04/24/2011 JESS MMI TEACHER, MARIA DE JESUS S 338.29 Other Chronic Pain 04/24/2011 MANNY PHD, JUAN R A 338.29 Other Chronic Pain 04/24/2011 JESS MMI TEACHER, MARIA DE JESUS S 338.29 Other Chronic Pain 05/13/2011 Ot 388.70 OTALGIA NOS 05/13/2011 Ot 462 ACUTE PHARYNGITIS 05/13/2011 Ot 729.1 MYALGIA AND MYOSITIS NOS 05/13/2011 Ot 780.60 FEVER, UNSPECIFIED 05/14/2011 Ot 462 ACUTE PHARYNGITIS 06/12/2011 JESS MMI TEACHER, MARIA DE JESUS S 354.0 Carpal Tunnel Syndrome 06/12/2011 354.0 Carpal Tunnel Syndrome 06/12/2011 JESS MMI TEACHER, MARIA DE JESUS S 354.0 Carpal Tunnel Syndrome 06/12/2011 354.0 Carpal Tunnel Syndrome 06/12/2011 JESS MMI TEACHER, MARIA DE JESUS S 354.0 Carpal Tunnel Syndrome 06/12/2011 LAURIE RUIZ, ROSALINO Keller 354.0 Carpal Tunnel Syndrome 06/12/2011 JESS MMI TEACHER, MARIA DE JESUS S 354.0 Carpal Tunnel Syndrome 06/12/2011 JESS MMI TEACHER, MARIA DE JESUS S 354.0 Carpal Tunnel Syndrome 06/12/2011 JESS MMI TEACHER, MARIA DE JESUS S 354.0 Carpal Tunnel Syndrome 06/12/2011 RUDY MORO[place], [place] 354.0 Carpal Tunnel Syndrome 06/12/2011 MONA FOLEY DO 354.0 Carpal Tunnel Syndrome 06/12/2011 JESS MMI TEACHER, MARIA DE JESUS S 354.0 Carpal Tunnel Syndrome 06/12/2011 JESS MMI TEACHER, MARIA DE JESUS S 354.0 Carpal Tunnel Syndrome 06/12/2011 JESS MMI TEACHER, MARIA DE JESUS S 354.0 Carpal Tunnel Syndrome 06/12/2011 JESS MMI TEACHER, MARIA DE JESUS S 354.0 Carpal Tunnel Syndrome 06/12/2011 JESS MMI TEACHER, MARIA DE JESUS S 354.0 Carpal Tunnel Syndrome 06/12/2011 JESS MMI TEACHER, MARIA DE JESUS S 354.0 Carpal Tunnel Syndrome 06/12/2011 MANNY ZAMUDIO, JUAN R A 354.0 Carpal Tunnel Syndrome 06/12/2011 JESS MMI TEACHER, MARIA DE JESUS S 354.0 Carpal Tunnel Syndrome 09/10/2011 JESS MMI TEACHER, MARIA DE JESUS S 729.5 Pain In Limb 09/10/2011 JESS MMI TEACHER, MARIA DE JESUS S 782.0 Disturbance Of Skin Sensation 09/10/2011 729.5 Pain In Limb 09/10/2011 782.0 Disturbance Of Skin Sensation 09/10/2011 JESS MMI TEACHER, MARIA DE JESUS S 729.5 Pain In Limb 09/10/2011 JESS MMI TEACHER, MARIA DE JESUS S 782.0 Disturbance Of Skin Sensation 09/10/2011 729.5 Pain In Limb 09/10/2011 782.0 Disturbance Of Skin Sensation 09/10/2011 JESS MMI TEACHER, MARIA DE JESUS S 729.5 Pain In Limb 09/10/2011 JESS MMI TEACHER, MARIA DE JESUS S 782.0 Disturbance Of Skin Sensation 09/10/2011 SULLIVAN MMI TEACHER, ROSALINO R 729.5 Pain In Limb 09/10/2011 SULLIVAN MMI TEACHER, ROSALINO R 782.0 Disturbance Of Skin Sensation 09/10/2011 JESS MMI TEACHER, MARIA DE JESUS S 729.5 Pain In Limb 09/10/2011 JESS MMI TEACHER, MARIA DE JESUS S 782.0 Disturbance Of Skin Sensation 09/10/2011 JESS MMI TEACHER, MARIA DE JESUS S 729.5 Pain In Limb 09/10/2011 JESS MMI TEACHER, MARIA DE JESUS S 782.0 Disturbance Of Skin Sensation 09/10/2011 JESS MMI TEACHER, MARIA DE JESUS S 729.5 Pain In Limb 09/10/2011 JESS MMI TEACHER, MARIA DE JESUS S 782.0 Disturbance Of Skin Sensation 09/10/2011 MT GRANT MD 729.5 Pain In Limb 09/10/2011 MT GRANT MD 782.0 Disturbance Of Skin Sensation 09/10/2011 FOLEY DO, MONA K 729.5 Pain In Limb 09/10/2011 FOLEY DO, MONA K 782.0 Disturbance Of Skin Sensation 09/10/2011 JESS MMI TEACHER, MARIA DE JESUS S 729.5 Pain In Limb 09/10/2011 JESS MMI TEACHER, MARIA DE JESUS S 782.0 Disturbance Of Skin Sensation 09/10/2011 JESS MMI TEACHER, MARIA DE JESUS S 729.5 Pain In Limb 09/10/2011 JESS MMI TEACHER, MARIA DE JESUS S 782.0 Disturbance Of Skin Sensation 09/10/2011 JESS MMI TEACHER, MARIA DE JESUS S 729.5 Pain In Limb 09/10/2011 JESS MMI TEACHER, MARIA DE JESUS S 782.0 Disturbance Of Skin Sensation 09/10/2011 JESS MMI TEACHER, MARIA DE JESUS S 729.5 Pain In Limb 09/10/2011 JESS MMI TEACHER, MARIA DE JESUS S 782.0 Disturbance Of Skin Sensation 09/10/2011 JESS MMI TEACHER, MARIA DE JESUS S 729.5 Pain In Limb 09/10/2011 JESS MMI TEACHER, MARIA DE JESUS S 782.0 Disturbance Of Skin Sensation 09/10/2011 JESS MMI TEACHER, MARIA DE JESUS S 729.5 Pain In Limb 09/10/2011 JESS MMI TEACHER, MARIA DE JESUS S 782.0 Disturbance Of Skin Sensation 09/10/2011 JUAN R BRYANT PHD 729.5 Pain In Limb 09/10/2011 JUAN R BRYANT PHD 782.0 Disturbance Of Skin Sensation 09/10/2011 JESS MMI TEACHER, MARIA DE JESUS S 729.5 Pain In Limb 09/10/2011 JESS MMI TEACHER, MARIA DE JESUS S 782.0 Disturbance Of [...] Tension 01/31/2012 729.82 Cramp Of Limb 01/31/2012 JESS RUIZ MARIA DE JESUS S 305.1 Smoking Cigarettes 01/31/2012 JESS RUIZ, MARIA DE JESUS S 307.81 Headache - Tension 01/31/2012 JESS RUIZ, MARIA DE JESUS S 729.82 Cramp Of Limb 01/31/2012 305.1 Smoking Cigarettes 01/31/2012 307.81 Headache - Tension 01/31/2012 729.82 Cramp Of Limb 01/31/2012 BRIONNA MERCADO APRNA S 305.1 Smoking Cigarettes 01/31/2012 BRIONNA MERCADO APRNA S 307.81 Headache - Tension 01/31/2012 BRIONNA MERCADO APRNA S 729.82 Cramp Of Limb 01/31/2012 UNIQUE SULLIVAN APRNIA R 305.1 Smoking Cigarettes 01/31/2012 COLE SULLIVAN APRNRICIA R 307.81 Headache - Tension 01/31/2012 UNIQUE [...] APRNA S 729.82 Cramp Of Limb 01/31/2012 MT GRANT MD 305.1 Smoking Cigarettes 01/31/2012 MT GRANT MD 307.81 Headache - Tension 01/31/2012 MT GRANT MD 729.82 Cramp Of Limb 01/31/2012 FOLEY MONA TRUONG K 305.1 Smoking Cigarettes 01/31/2012 FOLEY DOCHRISA K 307.81 Headache - Tension 01/31/2012 FOLEY DOMONA K 729.82 Cramp Of Limb 01/31/2012 MARIA DE JESUS MERCADO APRN S 305.1 Smoking Cigarettes 01/31/2012 BRIONNA MERCADO APRNA S 307.81 Headache - Tension 01/31/2012 JLUIS MERCADO APRNNDA S 729.82 Cramp Of Limb 01/31/2012 JLUIS MERCADO APRNNDA S 305.1 Smoking Cigarettes 01/31/2012 JESS RUIZ MARIA DE JESUS S 307.81 Headache - Tension 01/31/2012 JESS MMI TEACHERJLUIS MiguelNDA S 729.82 Cramp Of Limb 01/31/2012 JLUIS MERCADO APRNNDA S 305.1 Smoking Cigarettes 01/31/2012 JLUIS MERCADO APRNNDA S 307.81 Headache - Tension 01/31/2012 JESS MMI TEACHERJLUIS MiguelNDA S 729.82 Cramp Of Limb 01/31/2012 [...] 02/04/2012 300.01 PANIC DISORDER WITHOUT AGORAPHOBIA 02/04/2012 JLUIS MERCADO APRNNDA S 300.01 PANIC DISORDER WITHOUT AGORAPHOBIA 02/04/2012 300.01 PANIC DISORDER WITHOUT AGORAPHOBIA 02/04/2012 JESS MMI TEACHER, MARIA DE JESUS S 300.01 PANIC DISORDER WITHOUT AGORAPHOBIA 02/04/2012 ROSALINO SULLIVAN APRN R 300.01 PANIC DISORDER WITHOUT AGORAPHOBIA 02/04/2012 JLUIS MERCADO APRNNDA S 300.01 PANIC DISORDER WITHOUT AGORAPHOBIA 02/04/2012 JESS MMI TEACHERJLUIS MiguelNDA S 300.01 PANIC DISORDER WITHOUT AGORAPHOBIA 02/04/2012 JLUIS MERCADO APRNNDA S 300.01 PANIC DISORDER WITHOUT AGORAPHOBIA 02/04/2012 MT GRANT MD 300.01 PANIC DISORDER WITHOUT AGORAPHOBIA 02/04/2012 MONA FOLEY DO 300.01 PANIC DISORDER WITHOUT AGORAPHOBIA 02/04/2012 JLUIS [...] WITHOUT AGORAPHOBIA 02/04/2012 MANNY ZAMUDIO, JUAN R Leonardo 300.01 PANIC DISORDER WITHOUT AGORAPHOBIA 02/04/2012 JESS RUIZ MARIA DE JESUS S 300.01 PANIC DISORDER WITHOUT AGORAPHOBIA 02/07/2012 JLUIS MERCADO APRNNDA S 784.0 Headache 02/07/2012 784.0 Headache 02/07/2012 JLUIS MERCADO APRNNDA S 784.0 Headache 02/07/2012 784.0 Headache 02/07/2012 JLUIS MERCADO APRNNDA S 784.0 Headache 02/07/2012 SULLIVAN MMI TEACHER, ROSALINO R 784.0 Headache 02/07/2012 JESS MMI TEACHER, MARIA DE JESUS S 784.0 Headache 02/07/2012 JESS MMI TEACHER, MARIA DE JESUS S 784.0 Headache 02/07/2012 JESS MMI TEACHER, MARIA DE JESUS S 784.0 Headache 02/07/2012 RUDY [place], [place] 784.0 Headache 02/07/2012 FOLEY DO, MONA K 784.0 Headache 02/07/2012 JESS MMI TEACHER, MARIA DE JESUS S 784.0 Headache 02/07/2012 JESS MMI TEACHER, MARIA DE JESUS S 784.0 Headache 02/07/2012 JESS MMI TEACHER, MARIA DE JESUS S 784.0 Headache 02/07/2012 JESS MMI TEACHER, MARIA DE JESUS S 784.0 Headache 02/07/2012 JESS MMI TEACHER, MARIA DE JESUS S 784.0 Headache 02/07/2012 JESS MMI TEACHER, MARIA DE JESUS S 784.0 Headache 02/07/2012 MANNY ZAMUDIO, JUAN R A 784.0 Headache 02/07/2012 JESS MMI TEACHER, MARIA DE JESUS S 784.0 Headache 03/13/2012 JESS MMI TEACHER, MARIA DE JESUS S 724.2 LUMBAGO 03/13/2012 724.2 Lumbago 03/13/2012 JESS MMI TEACHER, MARIA DE JESUS S 724.2 Lumbago 03/13/2012 724.2 Lumbago 03/13/2012 JESS MMI TEACHER, MARIA DE JESUS S 724.2 Lumbago 03/13/2012 LAURIE MMI TEACHER, ROSALINO R 724.2 Lumbago 03/13/2012 JESS MMI TEACHER, MARIA DE JESUS S 724.2 Lumbago 03/13/2012 JESS MMI TEACHER, MARIA DE JESUS S 724.2 Lumbago 03/13/2012 JESS MMI TEACHER, MARIA DE JESUS S 724.2 Lumbago 03/13/2012 MT GRANT MD 724.2 Lumbago 03/13/2012 FOLEY DO, MONA K 724.2 Lumbago 03/13/2012 JESS MMI TEACHER, MARIA DE JESUS S 724.2 Lumbago 03/13/2012 JESS MMI TEACHER, MARIA DE JESUS S 724.2 Lumbago 03/13/2012 JESS MMI TEACHER, MARIA DE JESUS S 724.2 Lumbago 03/13/2012 JESS MMI TEACHER, MARIA DE JESUS S 724.2 Lumbago 03/13/2012 JESS MMI TEACHER, MARIA DE JESUS S 724.2 Lumbago 03/13/2012 JESS MMI TEACHER, MARIA DE JESUS S 724.2 Lumbago 03/13/2012 MANNY ZAMUDIO, JUAN R A 724.2 Lumbago 03/13/2012 JESS MMI TEACHER, MARIA DE JESUS S 724.2 Lumbago 08/04/2012 JESS MMI TEACHER, MARIA DE JESUS S V25.9 CONTRACEPTION MANAGEMENT 08/04/2012 JESS MMI TEACHER, MARIA DE JESUS S V72.31 CUSTOMS GUARD EXAM, ROUTINE 08/04/2012 JESS MMI TEACHER, MARIA DE JESUS S V76.10 BREAST CANCER SCREENING 08/04/2012 JESS RUIZ, MARIA DE JESUS S V76.2 CERVICAL CANCER SCREENING (PAP SMEAR) 08/04/2012 V25.9 CONTRACEPTION MANAGEMENT 08/04/2012 V72.31 CUSTOMS GUARD EXAM, ROUTINE 08/04/2012 V76.10 BREAST CANCER SCREENING 08/04/2012 V76.2 CERVICAL CANCER SCREENING (PAP SMEAR) 08/04/2012 JESS RUIZ, MARIA DE JESUS S V25.9 CONTRACEPTION MANAGEMENT 08/04/2012 JESS MMI TEACHER, MARIA DE JESUS S V72.31 CUSTOMS GUARD EXAM, ROUTINE 08/04/2012 JESS RUIZ, MARIA DE JESUS S V76.10 BREAST CANCER SCREENING 08/04/2012 JESS SANTOSN, MARIA DE JESUS S V76.2 CERVICAL CANCER SCREENING (PAP SMEAR) 08/04/2012 SULLIVAN MMI TEACHER, ROSALINO R V25.9 CONTRACEPTION MANAGEMENT 08/04/2012 SULLIVAN MMI TEACHER, ROSALINO R V72.31 CUSTOMS GUARD EXAM, ROUTINE 08/04/2012 SULLIVAN MMI TEACHER, ROSALINO R V76.10 BREAST CANCER SCREENING 08/04/2012 SULLIVAN MMI TEACHER, ROSALINO R V76.2 CERVICAL CANCER SCREENING (PAP SMEAR) 08/04/2012 JESS RUIZ, MARIA DE JESUS S V25.9 CONTRACEPTION MANAGEMENT 08/04/2012 JESS SANTOSN, MARIA DE JESUS S V72.31 CUSTOMS GUARD EXAM, ROUTINE 08/04/2012 JESS MMI TEACHER, MARIA DE JESUS S V76.10 BREAST CANCER SCREENING 08/04/2012 JESS MMI TEACHER, MARIA DE JESUS S V76.2 CERVICAL CANCER SCREENING (PAP SMEAR) 08/04/2012 JESS MMI TEACHER, MARIA DE JESUS S V25.9 CONTRACEPTION MANAGEMENT 08/04/2012 JESS MMI TEACHER, MARIA DE JESUS S V72.31 CUSTOMS GUARD EXAM, ROUTINE 08/04/2012 JESS MMI TEACHER, MARIA DE JESUS S V76.10 BREAST CANCER SCREENING 08/04/2012 JESS MMI TEACHER, MARIA DE JESUS S V76.2 CERVICAL CANCER SCREENING (PAP SMEAR) 08/04/2012 JESS MMI TEACHER, MARIA DE JESUS S V25.9 CONTRACEPTION MANAGEMENT 08/04/2012 JESS MMI TEACHER, MARIA DE JESUS S V72.31 CUSTOMS GUARD EXAM, ROUTINE 08/04/2012 JESS MMI TEACHER, MARIA DE JESUS S V76.10 BREAST CANCER SCREENING 08/04/2012 JESS MMI TEACHER, MARIA DE JESUS S V76.2 CERVICAL CANCER SCREENING (PAP SMEAR) 08/04/2012 MT GRANT MD V25.9 CONTRACEPTION MANAGEMENT 08/04/2012 MT GRANT MD V72.31 CUSTOMS GUARD EXAM, ROUTINE 08/04/2012 MT GRANT MD V76.10 BREAST CANCER SCREENING 08/04/2012 MT GRANT MD V76.2 CERVICAL CANCER SCREENING (PAP SMEAR) 08/04/2012 MONA FOLEY DO V25.9 CONTRACEPTION MANAGEMENT 08/04/2012 MONA FOLEY DO V72.31 CUSTOMS GUARD EXAM, ROUTINE 08/04/2012 MONA FOLEY DO V76.10 BREAST CANCER SCREENING 08/04/2012 MONA FOLEY DO V76.2 CERVICAL CANCER SCREENING (PAP SMEAR) 08/04/2012 JESS MMI TEACHER, MARIA DE JESUS S V25.9 CONTRACEPTION MANAGEMENT 08/04/2012 JESS MMI TEACHER, MARIA DE JESUS S V72.31 CUSTOMS GUARD EXAM, ROUTINE 08/04/2012 JESS MMI TEACHER, MARIA DE JESUS S V76.10 BREAST CANCER SCREENING 08/04/2012 JESS MMI TEACHER, MARIA DE JESUS S V76.2 CERVICAL CANCER SCREENING (PAP SMEAR) 08/04/2012 JESS MMI TEACHER, MARIA DE JESUS S V25.9 CONTRACEPTION MANAGEMENT 08/04/2012 JESS MMI TEACHER, MARIA DE JESUS S V72.31 CUSTOMS GUARD EXAM, ROUTINE 08/04/2012 JESS MMI TEACHER, MARIA DE JESUS S V76.10 BREAST CANCER SCREENING 08/04/2012 JESS MMI TEACHER, MARIA DE JESUS S V76.2 CERVICAL CANCER SCREENING (PAP SMEAR) 08/04/2012 JESS MMI TEACHER, MARIA DE JESUS S V25.9 CONTRACEPTION MANAGEMENT 08/04/2012 JESS MMI TEACHER, MARIA DE JESUS S V72.31 CUSTOMS GUARD EXAM, ROUTINE 08/04/2012 JESS MMI TEACHER, MARIA DE JESUS S V76.10 BREAST CANCER SCREENING 08/04/2012 JESS MMI TEACHER, MARIA DE JESUS S V76.2 CERVICAL CANCER SCREENING (PAP SMEAR) 08/04/2012 JESS MMI TEACHER, MARIA DE JESUS S V25.9 CONTRACEPTION MANAGEMENT 08/04/2012 JESS MMI TEACHER, MARIA DE JESUS S V72.31 CUSTOMS GUARD EXAM, ROUTINE 08/04/2012 JESS MMI TEACHER, MARIA DE JESUS S V76.10 BREAST CANCER SCREENING 08/04/2012 JESS MMI TEACHER, MARIA DE JESUS S V76.2 CERVICAL CANCER SCREENING (PAP SMEAR) 08/04/2012 JESS MMI TEACHER, MARIA DE JESUS S V25.9 CONTRACEPTION MANAGEMENT 08/04/2012 JESS MMI TEACHER, MARIA DE JESUS S V72.31 CUSTOMS GUARD EXAM, ROUTINE 08/04/2012 JESS MMI TEACHER, MARIA DE JESUS S V76.10 BREAST CANCER SCREENING 08/04/2012 JESS MMI TEACHER, MARIA DE JESUS S V76.2 CERVICAL CANCER SCREENING (PAP SMEAR) 08/04/2012 JESS MMI TEACHER, MARIA DE JESUS S V25.9 CONTRACEPTION MANAGEMENT 08/04/2012 JESS MMI TEACHER, MARIA DE JESUS S V72.31 CUSTOMS GUARD EXAM, ROUTINE 08/04/2012 JESS MMI TEACHER, MARIA DE JESUS S V76.10 BREAST CANCER SCREENING 08/04/2012 JESS MMI TEACHER, MARIA DE JESUS S V76.2 CERVICAL CANCER SCREENING (PAP SMEAR) 08/04/2012 MANNY ZAMUDIO, JUAN R Leonardo V25.9 CONTRACEPTION MANAGEMENT 08/04/2012 MANNY ZAMUDIO, JUAN R Leonardo V72.31 CUSTOMS GUARD EXAM, ROUTINE 08/04/2012 JUAN R BRYANT PHD V76.10 BREAST CANCER SCREENING 08/04/2012 MANNY PHD, JUAN R A V76.2 CERVICAL CANCER SCREENING (PAP SMEAR) 08/04/2012 MARIA DE JESUS MERCADO APRN S V25.9 CONTRACEPTION MANAGEMENT 08/04/2012 BRIONNA MERCADO APRNA S V72.31 CUSTOMS GUARD EXAM, ROUTINE 08/04/2012 BRIONNA MERCADO APRNA S V76.10 BREAST CANCER SCREENING 08/04/2012 MARIA [...] MERCADO APRN S 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 04/13/2013 SULLIVAN MMI TEACHER, ROSALINO R 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 04/13/2013 JESS MMI TEACHER, MARIA DE JESUS S 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 04/13/2013 JESS MMI TEACHER, MARIA DE JESUS S 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 04/13/2013 JESS MMI TEACHER, MARIA DE JESUS S 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 04/13/2013 RUDY MORO[place], [place] 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 04/13/2013 MONA FOLEY DO 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 04/13/2013 JESS MMI TEACHER, MARIA DE JESUS S 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 04/13/2013 JESS MMI TEACHER, MARIA DE JESUS S 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 04/13/2013 JESS MMI TEACHER, MARIA DE JESUS S 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 04/13/2013 JESS MMI TEACHER, MARIA DE JESUS S 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 04/13/2013 JESS MMI TEACHER, MARIA DE JESUS S 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 04/13/2013 JESS MMI TEACHER, MARIA DE JESUS S 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 04/13/2013 MANNY PHD, JUAN R Leonardo 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 04/13/2013 JESS MMI TEACHER, MARIA DE JESUS S 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 04/17/2013 LAURIE RUIZ, ROSALINO R 462 ACUTE PHARYNGITIS 04/17/2013 LAURIE RUIZ, ROSALINO R 786.07 WHEEZING 04/17/2013 JESS MMI TEACHER, MARIA DE JESUS S 462 ACUTE PHARYNGITIS 04/17/2013 JESS MMI TEACHER, MARIA DE JESUS S 786.07 WHEEZING 04/17/2013 JESS MMI TEACHER, MARIA DE JESUS S 462 ACUTE PHARYNGITIS 04/17/2013 JESS MMI TEACHER, MARIA DE JESUS S 786.07 WHEEZING 04/17/2013 JESS MMI TEACHER, MARIA DE JESUS S 462 ACUTE PHARYNGITIS 04/17/2013 JESS MMI TEACHER, MARIA DE JESUS S 786.07 WHEEZING 04/17/2013 MT GRANT MD 462 ACUTE PHARYNGITIS 04/17/2013 MT GRANT MD 786.07 WHEEZING 04/17/2013 MONA FOLEY DO 462 ACUTE PHARYNGITIS 04/17/2013 FOLEY DO, MONA K 786.07 WHEEZING 04/17/2013 JESS MMI TEACHER, MARIA DE JESUS S 462 ACUTE PHARYNGITIS 04/17/2013 JESS MMI TEACHER, MARIA DE JESUS S 786.07 WHEEZING 04/17/2013 JESS MMI TEACHER, MARIA DE JESUS S 462 ACUTE PHARYNGITIS 04/17/2013 JESS MMI TEACHER, MARIA DE JESUS S 786.07 WHEEZING 04/17/2013 JESS MMI TEACHER, MARIA DE JESUS S 462 ACUTE PHARYNGITIS 04/17/2013 JESS MMI TEACHER, MARIA DE JESUS S 786.07 WHEEZING 04/17/2013 JESS MMI TEACHER, MARIA DE JESUS S 462 ACUTE PHARYNGITIS 04/17/2013 JESS MMI TEACHER, MARIA DE JESUS S 786.07 WHEEZING 04/17/2013 JESS MMI TEACHER, MARIA DE JESUS S 462 ACUTE PHARYNGITIS 04/17/2013 JESS MMI TEACHER, MARIA DE JESUS S 786.07 WHEEZING 04/17/2013 JESS MMI TEACHER, MARIA DE JESUS S 462 ACUTE PHARYNGITIS 04/17/2013 JESS MMI TEACHER, MARIA DE JESUS S 786.07 WHEEZING 04/17/2013 MANNY PHD, JUAN R Leonardo 462 ACUTE PHARYNGITIS 04/17/2013 MANNY PHD, JUAN R Leonardo 786.07 WHEEZING 04/17/2013 JESS MMI TEACHER, MARIA DE JESUS S 462 ACUTE PHARYNGITIS 04/17/2013 JESS MMI TEACHER, MARIA DE JESUS S 786.07 WHEEZING 05/09/2013 FERNANDA CURTIS DO Ot 708.9 URTICARIA NOS 05/10/2013 BRENNAN MOROCHO, LUIS Rodriguez Ot 708.9 URTICARIA NOS 05/20/2013 CHRIS FOLEY DOA K 708.9 URTICARIA/HIVES UNSPEC 05/20/2013 FOLEY DO MONA K 790.29 HYPERGLYCEMIA 05/20/2013 JESS MMI TEACHER, MARIA DE JESUS S 708.9 URTICARIA/HIVES UNSPEC 05/20/2013 JESS MMI TEACHER, MARIA DE JESUS S 790.29 HYPERGLYCEMIA 05/20/2013 JESS MMI TEACHER, MARIA DE JESUS S 708.9 URTICARIA/HIVES UNSPEC 05/20/2013 JESS MMI TEACHER, MARIA DE JESUS S 790.29 HYPERGLYCEMIA 05/20/2013 JESS MMI TEACHER, MARIA DE JESUS S 708.9 URTICARIA/HIVES UNSPEC 05/20/2013 JESS MMI TEACHER, MARIA DE JESUS S 790.29 HYPERGLYCEMIA 05/20/2013 JESS MMI TEACHER, MARIA DE JESUS S 708.9 URTICARIA/HIVES UNSPEC 05/20/2013 JESS MMI TEACHER, MARIA DE JESUS S 790.29 HYPERGLYCEMIA 05/20/2013 JESS MMI TEACHER, MARIA DE JESUS S 708.9 URTICARIA/HIVES UNSPEC 05/20/2013 JESS MMI TEACHER, MARIA DE JESUS S 790.29 HYPERGLYCEMIA 05/20/2013 JESS MMI TEACHER, MARIA DE JESUS S 708.9 URTICARIA/HIVES UNSPEC 05/20/2013 JESS MMI TEACHER, MARIA DE JESUS S 790.29 HYPERGLYCEMIA 05/20/2013 MANNY PHD, JUAN R Leonardo 708.9 URTICARIA/HIVES UNSPEC 05/20/2013 MANNY ZAMUDIO, JUAN R Leonardo 790.29 HYPERGLYCEMIA 05/20/2013 JESS MMI TEACHER, MARIA DE JESUS S 708.9 URTICARIA/HIVES UNSPEC 05/20/2013 JESS MMI TEACHER, MARIA DE JESUS S 790.29 HYPERGLYCEMIA 05/21/2013 MONA FOLEY DO 250.02 DIABETES II UNCONTROLLED (UNCOMPLICATED) 05/21/2013 JESS MMI TEACHER, MARIA DE JESUS S 250.02 DIABETES II UNCONTROLLED (UNCOMPLICATED) 05/21/2013 JESS MMI TEACHER, MARIA DE JESUS S 250.02 DIABETES II UNCONTROLLED (UNCOMPLICATED) 05/21/2013 JESS MMI TEACHER, MARIA DE JESUS S 250.02 DIABETES II UNCONTROLLED (UNCOMPLICATED) 05/21/2013 JESS MMI TEACHER, MARIA DE JESUS S 250.02 DIABETES II UNCONTROLLED (UNCOMPLICATED) 05/21/2013 JESS MMI TEACHER, MARIA DE JESUS S 250.02 DIABETES II UNCONTROLLED (UNCOMPLICATED) 05/21/2013 JESS MMI TEACHER, MARIA DE JESUS S 250.02 DIABETES II UNCONTROLLED (UNCOMPLICATED) 05/21/2013 MANNY ZAMUDIO, JUAN R Leonardo 250.02 DIABETES II UNCONTROLLED (UNCOMPLICATED) 05/21/2013 JESS MMI TEACHER, MARIA DE JESUS S 250.02 DIABETES II UNCONTROLLED (UNCOMPLICATED) 08/04/2013 JESS MMI TEACHER, MARIA DE JESUS S 599.70 HEMATURIA 08/04/2013 JESS RUIZ, MARIA DE JESUS S 599.70 HEMATURIA 08/04/2013 JESS MMI TEACHER, MARIA DE JESUS S 599.70 HEMATURIA 08/04/2013 JESS MMI TEACHER, MARIA DE JESUS S 599.70 HEMATURIA 08/04/2013 JESS MMI TEACHER, MARIA DE JESUS S 599.70 HEMATURIA 08/04/2013 JESS RUIZ, MARIA DE JESUS S 599.70 HEMATURIA 08/04/2013 MANNY PHD, JUAN R Leonardo 599.70 HEMATURIA 08/04/2013 JESS MMI TEACHER, MARIA DE JESUS S 599.70 HEMATURIA 08/16/2013 KIRSTEN DO, FERNANDA K Ot 595.9 CYSTITIS NOS 08/16/2013 KIRSTEN DO, FERNANDA K Ot 789.00 ABDOMINAL PAIN, UNSPECIFIED SITE 01/28/2014 JESS RUIZ, MARIA DE JESUS S 251.2 HYPOGLYCEMIA 01/28/2014 JESS RUIZ, MARIA DE JESUS S 251.2 HYPOGLYCEMIA 01/28/2014 JESS RUIZ, MARIA DE JESUS S 251.2 HYPOGLYCEMIA 01/28/2014 JESS SANTOSN, MARIA DE JESUS S 251.2 HYPOGLYCEMIA 01/28/2014 JESSLALITO RUIZ, MARIA DE JESUS S 251.2 HYPOGLYCEMIA 01/28/2014 MANNY PHD, JUAN R Leonardo 251.2 HYPOGLYCEMIA 01/28/2014 JESS RUIZ, MARIA DE JESUS S 251.2 HYPOGLYCEMIA 03/09/2014 BRENNAN MOROCHO, LUIS Rodriguez Ot 250.00 DIAB SUNSHINE WO COMPL, TYPE II OR UNSPEC TY 03/09/2014 LUIS AMIN MD Ot 780.79 OTH MALAISE FATIGUE 03/09/2014 LUIS AMIN MD Ot V58.69 OT MED,LT,CURRENT USE 03/21/2014 ROXANNE ESPARZA Ot 372.30 CONJUNCTIVITIS NOS 03/21/2014 ROXANNE ESPARZA Ot 465.9 ACUTE URI NOS 03/21/2014 ROXANNE ESPARZA Ot 930.9 FOREIGN BDY EXT EYE NOS 04/21/2014 JESS RUIZ MARIA DE JESUS S 296.80 BIPOLAR DISORDER UNSPECIFIED 04/21/2014 JESS RUIZ MARIA DE JESUS S 296.80 BIPOLAR DISORDER UNSPECIFIED 04/21/2014 JESS MMI TEACHER, MARIA DE JESUS S 296.80 BIPOLAR DISORDER UNSPECIFIED 04/21/2014 JESS MMI TEACHER, MARIA DE JESUS S 296.80 BIPOLAR DISORDER UNSPECIFIED 04/21/2014 MANNY PHD, JUAN R A 296.80 BIPOLAR DISORDER UNSPECIFIED 04/21/2014 JESS MMI TEACHER, MARIA DE JESUS S 296.80 BIPOLAR DISORDER UNSPECIFIED 05/06/2014 JESS MMI TEACHER, MARIA DE JESUS S 462 PHARYNGITIS ACUTE 05/06/2014 JESS MMI TEACHER, MARIA DE JESUS S 786.2 COUGH 05/06/2014 JESS MMI TEACHER, MARIA DE JESUS S V15.82 NICOTINE ABUSE 05/06/2014 JESS MMI TEACHER, MARIA DE JESUS S 462 PHARYNGITIS ACUTE 05/06/2014 JESS MMI TEACHER, MARIA DE JESUS S 786.2 COUGH 05/06/2014 JESS MMI TEACHER, MARIA DE JESUS S V15.82 NICOTINE ABUSE 05/06/2014 JESS MMI TEACHER, MARIA DE JESUS S 462 PHARYNGITIS ACUTE 05/06/2014 JESS MMI TEACHER, MARIA DE JESUS S 786.2 COUGH 05/06/2014 JESS MMI TEACHER, MARIA DE JESUS S V15.82 NICOTINE ABUSE 05/06/2014 MANNY PHD, JUAN R A 462 PHARYNGITIS ACUTE 05/06/2014 MANNY PHD, JUAN R A 786.2 COUGH 05/06/2014 MANNY PHD, JUAN R A V15.82 NICOTINE ABUSE 05/06/2014 JESS MMI TEACHER, MARIA DE JESUS S 462 PHARYNGITIS ACUTE 05/06/2014 JESS MMI TEACHER, MARIA DE JESUS S 786.2 COUGH 05/06/2014 JESS MMI TEACHER, MARIA DE JESUS S V15.82 NICOTINE ABUSE 05/11/2014 CELSA MOROCHO, TARUN M Ot 250.00 DIAB SUNSHINE WO COMPL, TYPE II OR UNSPEC TY 05/11/2014 CELSA MOROCHO, TARUN M Ot 276.8 HYPOPOTASSEMIA 05/11/2014 CELSA MOROCHO, TARUN M Ot 300.9 UNSPECIFIED NONPSYCHOTIC MENTAL DISORDER 05/11/2014 CELSA MOROCHO, TARUN M Ot 305.00 ALCOHOL ABUSE-UNSPEC 05/11/2014 CELSA MOROCHO, TARUN M Ot 305.1 TOBACCO USE DISORDER 05/11/2014 CELSA MOROCHO, TARUN M Ot 305.40 SEDATIVE, HYPNOTIC OR ANXIOLYTIC ABUSE, 05/11/2014 CELSA MOROCHO, TARUN Johnson Ot 466.0 ACUTE BRONCHITIS 05/11/2014 CELSA MOROCHO, TARUN Johnson Ot 780.97 ALTERED MENTAL STATUS 05/11/2014 CELSA MOROCHO, TARUN Johnson Ot 847.0 SPRAIN OF NECK 05/11/2014 CELSA MOROCHO, TARUN Johnson Ot E816.0 LOSS CONTROL MV ACC-DRIV 05/11/2014 TARUN STEEN MD Ot V04.81 ND FOR PROPHYLACTIC VACCIN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
--- NOTE | 2017-10-07 22:19 | ED Cough/URI ---
General Chief Complaint: Fever-Adult/Adol Stated Complaint: FLU LIKE SYMPTOMS Nursing Triage Note: PATIENT STATES THAT HER DAUGHTERS MOTHER WAS DIAGNOSED WITH FLU B AND THAT HER DAUGHTER IS DISPLAYING SYMPTOMS OF FLU. PATIENT CLAIMS SHE HAS HAD THE SAME SYMPTOMS FOR OVER A WEEK BUT WAS NEVER TESTED FOR THE FLU. SHE COMPLAINS OF CHEST CONGESTION AND NASAL CONGESTION. FEVERS OFF AND ON FOR A WEEK. 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, (Reported) Escitalopram Oxalate 20 Mg Tablet, 40 MG PO DAILY, (Reported) TAKES 2 (20MG) TABLETS Hydrocodone Bit/Acetaminophen 1 Tab Tab, 1-2 EACH PO Q6H PRN for BREAKTHROUGH PAIN Prescribed by: AGATHA DREW on 08/03/17 023 Metoprolol Succinate 50 Mg Tab.er.24h, 50 MG PO DAILY, (Reported) Ondansetron 8 Mg Tab.rapdis, 8 MG PO Q6H PRN for NAUSEA/VOMITING-1ST LINE Prescribed by: ROXANNE WADE on 01/28/17 1644 Ondansetron 4 Mg Tab.rapdis, 4 MG PO Q6H PRN for NAUSEA/VOMITING-1ST LINE Prescribed by: AGATHA DREW on 08/03/17 023 Prednisone 20 Mg Tab, 40 MG PO DAILY Prescribed by: ROXANNE WADE on 10/07/17 [id number] Patient Home Medication List Home Medication List Reviewed: Yes Review of Systems Constitutional: chills, fever, malaise EENTM: see HPI Respiratory: cough, phlegm, No short of breath, wheezing (occasional wheezing) Cardiovascular: no symptoms reported Gastrointestinal: no symptoms reported Genitourinary: no symptoms reported Musculoskeletal: no symptoms reported Skin: no symptoms reported Psychiatric/Neurological: No Symptoms Reported All Other Systems Reviewed Negative Unless Noted: Yes (Negative excepted noted.) Past Ezrvidf-Kmrisc-Ebunht Hx Patient Social History Alcohol Use: Denies Use Recreational Drug Use: No (SMOKES 1PPD) Smoking Status: Former Smoker Type Used: Cigarettes 2nd Hand Smoke Exposure: Yes Recent Foreign Travel: No Contact w/Someone Who Travel: No Recent Infectious Disease Expo: No Recent Hopitalizations: No Immunizations Up To Date Tetanus Booster (TDap): Less than 5yrs PED Vaccines UTD: Yes Date of Pneumonia Vaccine: Apr 09, 2013 Date of Influenza Vaccine: Apr 09, 2016 Seasonal Allergies Seasonal Allergies: No Past Medical History Surgeries: Yes Appendectomy, Orthopedic Respiratory: No Asthma, Emphysema Currently Using CPAP: No Currently Using BIPAP: No Cardiac: No Heart Murmur, Hypertension Neurological: No Reproductive Disorders: No Female Reproductive Disorders: Denies Sexually Transmitted Disease: No HIV/AIDS: No Genitourinary: No Kidney Infection, Bladder Infection, Kidney Stones Gastrointestinal: No Musculoskeletal: No Chronic Back Pain Endocrine: No Diabetes, Non-Insulin dep HEENT: No Loss of Vision: Denies Hearing Impairment: Denies Cancer: No Psychosocial: Yes Anxiety, Depression Integumentary: No Recent Skin Changes Blood Disorders: No Adverse Reaction/Blood Tranf: No (never had a transfusion) Family Medical History Reviewed Nursing Family Hx Cardiovascular disease 19 FATHER Hypertension 19 FATHER Myocardial infarction 19 FATHER No Family History of: Diabetes mellitus Respiratory disorder Seizure disorder No Pertinent Family Hx, Heart Disease, Cancer, Renal Disease Physical Exam Vital Signs Vital Signs - First Documented 10/07/17 21:55 Temp 97.3 Pulse 65 Resp 18 B/P (MAP) 103/70 (81) Pulse Ox 100 Capillary Refill : Less Than 3 Seconds General Appearance: WD/WN, no apparent distress HEENT: PERRL/EOMI, TMs normal, pharyngeal erythema, other ((+) rhinorrhea and nasal congestion.) Neck: non-tender, full range of motion, supple, lymphadenopathy (R), lymphadenopathy (L) Respiratory: lungs clear, normal breath sounds, no respiratory distress, no accessory muscle use Cardiovascular: normal peripheral pulses, regular rate, rhythm, no murmur Gastrointestinal: normal bowel sounds, non tender, soft Extremities: normal capillary refill Neurologic/Psychiatric: alert, normal mood/affect, oriented x 3 Skin: normal color, warm/dry Progress/Results/Core Measures Suspected Sepsis Recent Fever Within 48 Hours: Yes Infection Criteria Present: Suspected New Infection New/Unexplained Altered Menta: No Sepsis Screen: No Definite Risk Sepsis Diagnosis: SIRS Temperature:97.3 Pulse: 65 Respiratory Rate: 18 Blood Pressure 103 /70 Mean: 81 Results/Orders Micro Results Microbiology 10/07/17 Influenza Types A,B Antigen (VONDA) - Final, Complete Vital Signs/I&O 10/07/17 10/07/17 21:55 22:53 Temp 97.3 97.3 Pulse 65 65 Resp 18 18 B/P (MAP) 103/70 (81) 103/70 (81) Pulse Ox 100 100 Capillary Refill : Less Than 3 Seconds Blood Pressure Mean: 81 Departure Impression Primary Impression: Influenza-like symptoms Disposition: 01 HOME, SELF-CARE Condition: Improved Departure-Patient Inst. Decision time for Depature: 22:28 Referrals: [facility] (PCP) Primary Care Physician MARIA DE JESUS MERCADO (Family) Primary Care Physician Patient Instructions: Flu, Adult (DC) Add. Discharge Instructions: All discharge instructions reviewed with patient and/or family. Voiced understanding. Medications as instructed. Tylenol and motrin over the counter as directed for pain or fever. Drink plenty of fluids. Over the counter decongestants, antihistamines, and cough suppressants as directed by the special client bus driver for symptoms. Follow-up with your rail manager for recheck if needed. Return to the emergency department for worsened symptoms or any other concerns. Scripts Prednisone (Prednisone) 20 Mg Tab 40 MG PO DAILY, #10 TAB 0 Refills Prov: ROXANNE WADE 10/07/17 Work/School Note: Work Release Form Date Seen in the Emergency Department: Oct 07, 2017 Return to Work: Oct 08, 2017 Restrictions: Return-No Fever (24hrs) ROXANNE WADE Oct 07, 2017 22:19
[2017-10-07] MEDS ORDERED: PRD20T PO (22:44)
[2017-10-07 22:53] VITALS: BP 103/70
== END 2017-10-07 22:53 | disposition home or self-care (01) ==
LOC: EDUNIT# 21:16 → ER 21:17
DX: J11.1 Influenza due to unidentified influenza virus with other respiratory manifestations (principal); F41.9 Anxiety disorder, unspecified; F32.9 Major depressive disorder, single episode, unspecified; E11.9 Type 2 diabetes mellitus without complications; I10 Essential (primary) hypertension; J43.9 Emphysema, unspecified; Z90.49 Acquired absence of other specified parts of digestive tract; Z87.442 Personal history of urinary calculi; Z87.891 Personal history of nicotine dependence; Z88.0 Allergy status to penicillin; Z88.1 Allergy status to other antibiotic agents; Z88.2 Allergy status to sulfonamides
CPT/HCPCS: 87804; 99282

== ENCOUNTER 2018-01-25 15:38 | Emergency (ER) | payer MEDICAID ==
[~2018-01-25] VITALS: Ht 162.6 cm; Wt 54.9 kg
--- OUTSIDE RECORDS SUMMARY | 2018-01-25 15:44 | XMS REPORT | Clinical Summary ---
Author Author [facility] Organization [facility] Address Unknown Phone Unavailable Care Team Providers Care Learning Engineer Name Role Phone Dung Frances DO Unavailable Delaney Min DO Unavailable Tammy Grajeda APRN PCP Source Comments Some departments are not documenting in the electronic medical record. If you do not see the information that you expected, contact Release of Information in the Health Information Management department at [phone] for further assistance in locating additional records.[facility] Allergies Active Allergy Reactions Severity Noted Date [...] Taken Blood Pressure 131/50 05/25/2013 11:03 AM EDUCATIONAL INSTITUTION CURATOR Pulse 73 05/25/2013 11:03 AM EDUCATIONAL INSTITUTION CURATOR Temperature 36.1 C (97 F) 05/25/2013 11:03 AM EDUCATIONAL INSTITUTION CURATOR Respiratory Rate 16 05/25/2013 11:03 AM EDUCATIONAL INSTITUTION CURATOR Oxygen Saturation 97% 05/25/2013 11:03 AM EDUCATIONAL INSTITUTION CURATOR Inhaled Oxygen - - Concentration Weight 59.4 kg (131 lb) 05/25/2013 11:03 AM EDUCATIONAL INSTITUTION CURATOR Height 158.4 cm (5' 2.36") 05/25/2013 11:03 AM EDUCATIONAL INSTITUTION CURATOR Body Mass Index 23.68 05/25/2013 11:03 AM EDUCATIONAL INSTITUTION CURATOR Plan of Treatment Health Maintenance Due Date Last Done Comments PHYSICAL (COMPREHENSIVE) 11/19/1986 EXAM PERTUSSIS VACCINE 11/19/1990 TETANUS VACCINE 11/19/1996 CERVICAL CANCER SCREENING 11/19/2009 INFLUENZA VACCINE 03/31/2018 HIV SCREENING Completed 05/25/2013 Results Not on filefrom Last 3 Months
--- OUTSIDE RECORDS SUMMARY | 2018-01-25 15:45 | XMS REPORT ---
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 [facility] [place] [facility] [address] [id number] [place] [address]- 4292 May, [facility] [place] [facility] [address] [id number] [place] [address]- 1519 Mar, [facility] [place] [facility] [address] [id number] [place] [address]- 7020 Mar, [facility] [place] [facility] [address] [id number] [place] [address]- 0213 Mar, [facility] [place] [facility] [address] [id number] [place] [address]- 6968 Mar, [facility] [place] [facility] [address] [id number] [place] [address]- 1470 Mar, [facility] [place] [facility] [address] [id number] [place] [address]- 0590 Mar, [facility] [place] [facility] [address] [id number] [place] [address]- 7761 Mar, [facility] [place] [facility] [address] [id number] [place] [address]- 0224 Mar, [facility] [place] [facility] [address] [id number] [place] [address]- 4793 Mar, [facility] [place] [facility] [address] [id number] [place] [address]- 8242 Mar, [facility] [place] [facility] [address] [id number] [place] [address]- 4916 Mar, [facility] [place] [facility] [address] [id number] [place] [address]- 9827 Mar, [facility] [place] [facility] [address] [id number] [place] [address]- 2382 Mar, [facility] [place] [facility] [address] [id number] [place] [address]- 2146 Mar, [facility] [place] [facility] [address] [id number] [place] [address]- 7165 Jan, [facility] [place] [facility] [address] [id number] [place] [address]- 1068 Jan, [facility] [place] [facility] [address] [id number] [place] [address]- 7463 Jan, [facility] [place] [facility] [address] [id number] [place] [address]- 1930 Jan, [facility] [place] [facility] [address] [id number] [place] [address]- 1161 Jan, [facility] [place] [facility] [address] [id number] [place] [address]- 3013 Jan, [facility] [place] [facility] [address] [id number] [place] [address]- 3904 Jan, [facility] [place] [facility] [address] [id number] [place] [address]- 9531 Jan, [facility] [place] [facility] [address] [id number] [place] [address]- 5830 Jan, [facility] [place] [facility] [address] [id number] [place] [address]- 7245 Dec, [facility] [place] [facility] [address] [id number] [place] [address]- 4292 Dec, [facility] [place] [facility] [address] [id number] [place] [address]- 8368 Dec, [facility] [place] [facility] [address] [id number] [place] [address]- 8777 Dec, [facility] [place] [facility] [address] [id number] [place] [address]- 4685 Dec, [facility] [place] [facility] [address] [id number] [place] [address]- 9573 Dec, [facility] [place] [facility] [address] [id number] [place] [address]- 2444 Dec, [facility] [place] [facility] [address] [id number] [place] [address]- 4771 Dec, [facility] [place] [facility] [address] [id number] [place] [address]- 6100 Dec, [facility] [place] [facility] [address] [id number] [place] [address]- 0816 October, [facility] [place] [facility] [address] [id number] [place] [address]- 0017 October, [facility] [place] [facility] [address] [id number] [place] [address]- 2598 Sep, [facility] [place] [facility] [address] [id number] [place] [address]- 2746 Sep, [facility] [place] [facility] [address] [id number] [place] [address]- 2581 Aug, [facility] [place] [facility] [address] [id number] [place] [address]- 7076 Aug, [facility] [place] [facility] [address] [id number] [place] [address]- 6045 Aug, [facility] [place] [facility] [address] [id number] [place] [address]- 7699 Aug, [facility] [place] [facility] [address] [id number] [place] [address]- 9356 Aug, [facility] [place] [facility] [address] [id number] [place] [address]- 0106 Aug, 2013 [facility] [place] [facility] [address] [id number] [place] [address]- 6086 Aug, [facility] [place] [facility] [address] [id number] [place] [address]- 3278 Aug, [facility] [place] [facility] [address] [id number] [place] [address]- 5096 Aug, [facility] [place] [facility] [address] [id number] [place] [address]- 5139 Aug, [facility] [place] [facility] [address] [id number] [place] [address]- 5988 Aug, [facility] [place] [facility] [address] [id number] [place] [address]- 2431 Jul, [facility] [place] [facility] [address] [id number] [place] [address]- 5527 Jul, [facility] [place] [facility] [address] [id number] [place] [address]- 1237 May, [facility] [place] [facility] [address] [id number] [place] [address]- 2019 May, [facility] [place] [facility] [address] [id number] [place] [address]- 0886 May, [facility] [place] [facility] [address] [id number] [place] [address]- 2116 May, [facility] [place] [facility] [address] [id number] [place] [address]- 9207 May, [facility] [place] [facility] [address] [id number], [place] [address]- 7666 May, [facility] [place] [facility] [address] [id number] [place] [address]- 9912 May, [facility] [place] [facility] [address] [id number], [place] [address]- 3174 May, [facility] [place] [facility] [address] [id number] [place] [address]- 7328 May, [facility] [place] [facility] [address] [id number], [place] [address]- 8176 May, [facility] [place] [facility] [address] [id number] [place] [address]- 0811 May, [facility] [place] [facility] [address] [id number], [place] [address]- 8026 May, [facility] [place] [facility] [address] [id number], [place] [address]- 5047 May, [facility] [place] [facility] [address] [id number], [place] [address]- 1800 May, [facility] [place] [facility] [address] [id number], [place] [address]- 2199 May, [facility] [place] [facility] [address] [id number], [place] [address]- 0571 May, [facility] [place] [facility] [address] [id number], [place] [address]- 5216 May, [facility] [place] [facility] [address] [id number], [place] [address]- 5684 18 May, 2013 [facility] [place] [facility] [address] [id number], [place] [address]- 6747 16 May, 2013 [facility] [place] [facility] [address] [id number], [place] [address]- 0301 16 May, 2013 [facility] [place] [facility] [address] [id number], [place] [address]- 7402 11 May, 2013 [facility] [place] [facility] [address] [id number] [place] [address]- 6639 May, 2012 [facility] [place] [facility] [address] [id number] [place] [address]- 0873 May, [facility] [place] [facility] [address] [id number] [place] [address]- 7582 May, [facility] [place] [facility] [address] [id number] [place] [address]- 8554 May, [facility] [place] [facility] [address] [id number] [place] [address]- 4271 May, [facility] [place] [facility] [address] [id number] [place] [address]- 3794 May, [facility] [place] [facility] [address] [id number] [place] [address]- 9799 May, [facility] [place] [facility] [address] [id number] [place] [address]- 8506 May, [facility] [place] [facility] [address] [id number] [place] [address]- 5261 May, [facility] [place] [facility] [address] [id number] [place] [address]- 1626 Mar, [facility] [place] [facility] [address] [id number] [place] [address]- 5124 Mar, [facility] [place] [facility] [address] [id number] [place] [address]- 3370 Mar, [facility] [place] [facility] [address] [id number] [place] [address]- 5711 Mar, [facility] [place] [facility] [address] [id number] [place] [address]- 9574 30 Mar, 2013 [facility] [place] [facility] [address] [id number] [place] [address]- 9638 Mar, [facility] [place] [facility] [address] [id number] [place] [address]- 3112 Mar, [facility] [place] [facility] [address] [id number] [place] [address]- 7635 Mar, [facility] [place] [facility] [address] [id number] [place] [address]- 6786 Mar, [facility] [place] [facility] [address] [id number] [place] [address]- 5078 Mar, [facility] [place] [facility] [address] [id number] [place] [address]- 0730 Mar, [facility] [place] [facility] [address] [id number] [place] [address]- 4913 Mar, [facility] [place] [facility] [address] [id number] [place] [address]- 4659 Mar, [facility] [place] [facility] [address] [id number] [place] [address]- 2061 Mar, [facility] [place] [facility] [address] [id number], [place] [address]- 3448 Mar, [facility] [place] [facility] [address] [id number] [place] [address]- 3448 Mar, [facility] [place] [facility] [address] [id number], [place] [address]- 9558 Mar, [facility] [place] [facility] [address] [id number], [place] [address]- 1761 18 Mar, 2013 [facility] [place] [facility] [address] [id number], [place] [address]- 4438 18 Mar, 2013 [facility] [place] [facility] [address] [id number] [place] [address] 18 Mar, 2013 [facility] [place] [facility] [address] [id number], [place] [address] 18 Mar, 2013 [facility] [place] [facility] [address] [id number], [place] [address] 14 Mar, 2013 [facility] [place] [facility] [address] [id number] [place] [address] 14 Mar, 2013 [facility] [address] [id number] [place] [address] 10 Mar, 2013 [facility] [address] [id number] [place] [address] 0082 18 Mar, 2013 [facility] [address] [id number] [place] [address] 1362 12 Mar, 2013 [facility] [address] [id number] [place] [address] 3099 11 Mar, 2013 [facility] [address] [id number] [place] [address] Jan, [facility] [address] [id number] [place] [address] October, [facility] [address] [id number] [place] [address] Sep, [facility] [address] [id number] [place] [address] 15 Sep, 2012 [facility] [address] [id number] [place] [address] 07 Aug, 2012 [facility] [address] [facility] [id number] [place] [address] Aug, [facility] [id number] [place] [address] Aug, [facility] [address] [id number], [place] [address] Jul, [facility] [place] [facility] [address] [id number] [place] [address]- 21[address] May, [facility] [place] [facility] [address] [id number] [place] [address] May, [facility] [address] [id number], [place] [address] May, [facility] [place] [facility] [address] [id number] [place] [address]- [address]83 18 May, 2012 [facility] [place] [facility] [address] [id number] [place] [address]136 Mar, [facility] [place] [facility] [address] [id number] [place] [address] 4910 Mar, [facility] [place] [facility] [address] [id number] [place] [address], [place] [address] 47[address] 16 Mar, 2012 [facility] [place] [facility] [address] [id number] [place] [address]- 2802 25 Mar, 2012 [facility] [place] [facility] [address] [id number] [place] [address]- 0410 19 Mar, 2012 [facility] [place] [facility] [address] [id number] [place] [address]- 9984 13 Mar, 2012 [facility] [place] [facility] [address] [id number] [place] [address]- 1386 07 Mar, 2012 [facility] [place] [facility] [address] [id number] [place] [address]- [address] Jan, [facility] [place] [facility] [address] [id number] [place] [address]- 4431 Jan, [facility] [place] [facility] [address] [id number] [place] [address]- [address]31 Jan, [facility] [place] [facility] [address] [id number] [place] [address]- [address]276 Jan, [facility] [place] [facility] [address] [id number] [place] [address]- 1415 Jan, [facility] [place] [facility] [address] [id number] [place] [address]- [address] Jan, [facility] [place] [facility] [address] [id number] [place] [address]- 5516 Jan, [facility] [place] [facility] [address] [id number] [place] [address]- 3072 Jan, [facility] [place] [facility] [address] [id number] [place] [address]- 8408 Jan, [facility] [place] [facility] [address] [id number] [place] [address]- 3073 Jan, [facility] [place] [facility] [address] [id number] [place] [address]- 0373 Jan, [facility] [place] [facility] [address] [id number] [place] [address]- 8896 Jan, [facility] [place] [facility] [address] [id number] [place] [address]- 4384 Jan, [facility] [place] [facility] [address] [id number] [place] [address]- 6070 Jan, [facility] [place] [facility] [address] [id number] [place] [address]- 7679 Jan, [facility] [place] [facility] [address] [id number] [place] [address]- 9441 Jan, [facility] [place] [facility] [address] [id number] [place] [address]- 2976 Dec, [facility] [place] [facility] [address] [id number] [place] [address]- 7184 Dec, [facility] [place] [facility] [address] [id number] [place] [address]- [address] Nov, [facility] [place] [facility] [address] [id number] [place] [address]- 5721 Nov, [facility] [place] [facility] [address] [id number] [place] [address]- 2765 October, [facility] [place] [facility] [address] [id number] [place] [address]- 8398 October, [facility] [place] [facility] [address] [id number] [place] [address]- 6635 October, [facility] [place] [facility] [address] [id number] [place] [address]- 1206 19 Sep, 2011 [facility] [address] [id number] [place] [address]- 8566 18 Sep, 2011 [facility] [place] [facility] [address] [id number] [place] [address]- 3166 30 Aug, 2011 [facility] [address] [id number] [place] [address]- 9731 28 Aug, 2011 [facility] [address] [id number] [place] [address]- 8389 26 Aug, 2011 [facility] [address] [id number] [place] [address]- 9436 19 Aug, 2011 [facility] [address] [id number] [place] [address]- 6546 12 Aug, 2011 [facility] [address] [id number] [place] [address]- 5748 14 Aug, 2011 [facility] [address] [id number] [place] [address]- 9036 07 Aug, 2011 [facility] [facility] [address] [id number] [place] [address] Jul, [facility] [address] [id number] [place] [address] Jul, [facility] [address] [id number] [place] [address] Jul, [facility] [address] [id number] [place] [address] May, [facility] [place] [facility] [address] [id number] [place] [address] May, [facility] [place] [facility] [address] [id number] [place] [address] May, [facility] [place] [facility] [address] [id number] [place] [address] May, [facility] [place] [facility] [address] [id number] [place] [address] May, [facility] [place] [facility] [address] [id number] [place] [address] May, [facility] [place] [facility] [address] [id number] [place] May, [facility] [place] [facility] [address] [id number] [place] [address] Mar, [facility] [place] [facility] [address] [id number] [place] [address] Mar, [facility] [place] [facility] [address] [id number] [place] [address] Mar, [facility] [place] [facility] [address] [id number] [place] [address] 15 Mar, 2011 [facility] [place] [facility] [address] [id number] [place] [address] Mar, [facility] [place] [facility] [address] [id number] [place] [address] Mar, [facility] [place] [facility] [address] [id number], [place] [address] Jan, [facility] [place] [facility] [address] [id number], [place] [address] 31 May, 2009 [facility] [place] [facility] [address] [id number], [place] [address] 16 May, 2009 [facility] [place] [facility] [address] [id number] [place] [address] May, [facility] [place] [facility] [address] [id number], [place] [address] May, [facility] [place] [facility] [address] [id number] [place] [address] 10 May, 2009 [facility] [place] [facility] [address] [facility] [id number] [place] [address] May, [facility] [address] [facility] [id number] [place] [address] Mar, [facility] [address] [facility] [id number] [place] [address] Sep, IMMUNIZATIONS No Known Immunizations SOCIAL HISTORY Never Assessed REASON FOR VISIT Controlled Med Refill 09/20/17 PLAN OF CARE VITAL SIGNS MEDICATIONS Medication Instructions Dosage Frequency Start Date End Date Duration Status Xanax 1 MG Orally 3 times a day 1 tablet 8h Aug, 28 days Active RESULTS No Results [...]
--- OUTSIDE RECORDS SUMMARY | 2018-01-25 15:46 | XMS REPORT ---
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 [id number] [place] [address]- 9140 May, [facility] [place] [facility] [address] [id number] [place] [address]- 3813 Mar, [facility] [place] [facility] [address] [id number] [place] [address]- 0045 Mar, [facility] [place] [facility] [address] [id number] [place] [address]- 1132 Mar, [facility] [place] [facility] [address] [id number] [place] [address]- 3261 Mar, [facility] [place] [facility] [address] [id number] [place] [address]- 0894 Mar, [facility] [place] [facility] [address] [id number] [place] [address]- 3914 Mar, [facility] [place] [facility] [address] [id number] [place] [address]- 7717 Mar, [facility] [place] [facility] [address] [id number] [place] [address]- 2749 Mar, [facility] [place] [facility] [address] [id number] [place] [address]- 9882 Mar, [facility] [place] [facility] [address] [id number] [place] [address]- 4898 Mar, [facility] [place] [facility] [address] [id number] [place] [address]- 8077 Mar, [facility] [place] [facility] [address] [id number] [place] [address]- 9122 Mar, [facility] [place] [facility] [address] [id number] [place] [address]- 3812 Mar, [facility] [place] [facility] [address] [id number] [place] [address]- 3592 Mar, [facility] [place] [facility] [address] [id number] [place] [address]- 5039 Jan, [facility] [place] [facility] [address] [id number] [place] [address]- 5751 Jan, [facility] [place] [facility] [address] [id number] [place] [address]- 7629 Jan, [facility] [place] [facility] [address] [id number] [place] [address]- 8568 Jan, [facility] [place] [facility] [address] [id number] [place] [address]- 9695 Jan, [facility] [place] [facility] [address] [id number] [place] [address]- 3892 Jan, [facility] [place] [facility] [address] [id number] [place] [address]- 8215 Jan, [facility] [place] [facility] [address] [id number] [place] [address]- 1098 Jan, [facility] [place] [facility] [address] [id number] [place] [address]- 2326 Jan, [facility] [place] [facility] [address] [id number] [place] [address]- 5056 Dec, [facility] [place] [facility] [address] [id number] [place] [address]- 1607 Dec, [facility] [place] [facility] [address] [id number] [place] [address]- 5458 Dec, [facility] [place] [facility] [address] [id number] [place] [address]- 4066 Dec, [facility] [place] [facility] [address] [id number] [place] [address]- 4412 Dec, [facility] [place] [facility] [address] [id number] [place] [address]- 7874 Dec, [facility] [place] [facility] [address] [id number] [place] [address]- 6396 Dec, [facility] [place] [facility] [address] [id number] [place] [address]- 5767 Dec, [facility] [place] [facility] [address] [id number] [place] [address]- 8204 Dec, [facility] [place] [facility] [address] [id number] [place] [address]- 3132 October, [facility] [place] [facility] [address] [id number] [place] [address]- 6719 October, [facility] [place] [facility] [address] [id number] [place] [address]- 0741 Sep, [facility] [place] [facility] [address] [id number] [place] [address]- 2583 Sep, [facility] [place] [facility] [address] [id number] [place] [address]- 0624 Aug, [facility] [place] [facility] [address] [id number] [place] [address]- 6532 Aug, [facility] [place] [facility] [address] [id number] [place] [address]- 5195 Aug, [facility] [place] [facility] [address] [id number] [place] [address]- 7212 Aug, [facility] [place] [facility] [address] [id number] [place] [address]- 0906 Aug, [facility] [place] [facility] [address] [id number] [place] [address]- 8766 Aug, 2013 [facility] [place] [facility] [address] [id number] [place] [address]- 2686 Aug, [facility] [place] [facility] [address] [id number] [place] [address]- 5874 Aug, [facility] [place] [facility] [address] [id number] [place] [address]- 1426 Aug, [facility] [place] [facility] [address] [id number] [place] [address]- 9993 Aug, [facility] [place] [facility] [address] [id number] [place] [address]- 2098 Aug, [facility] [place] [facility] [address] [id number] [place] [address]- 1447 Jul, [facility] [place] [facility] [address] [id number] [place] [address]- 4272 Jul, [facility] [place] [facility] [address] [id number] [place] [address]- 3334 May, [facility] [place] [facility] [address] [id number] [place] [address]- 4605 May, [facility] [place] [facility] [address] [id number] [place] [address]- 6126 May, [facility] [place] [facility] [address] [id number] [place] [address]- 8726 May, [facility] [place] [facility] [address] [id number] [place] [address]- 9134 May, [facility] [place] [facility] [address] [id number], [place] [address]- 8687 May, [facility] [place] [facility] [address] [id number] [place] [address]- 8862 May, [facility] [place] [facility] [address] [id number], [place] [address]- 6215 May, [facility] [place] [facility] [address] [id number] [place] [address]- 9093 May, [facility] [place] [facility] [address] [id number], [place] [address]- 4579 May, [facility] [place] [facility] [address] [id number] [place] [address]- 4413 May, [facility] [place] [facility] [address] [id number], [place] [address]- 0565 May, [facility] [place] [facility] [address] [id number], [place] [address]- 6294 May, [facility] [place] [facility] [address] [id number], [place] [address]- 2126 May, [facility] [place] [facility] [address] [id number], [place] [address]- 4458 May, [facility] [place] [facility] [address] [id number], [place] [address]- 8464 May, [facility] [place] [facility] [address] [id number], [place] [address]- 7908 May, [facility] [place] [facility] [address] [id number], [place] [address]- 3436 18 May, 2013 [facility] [place] [facility] [address] [id number], [place] [address]- 6870 16 May, 2013 [facility] [place] [facility] [address] [id number], [place] [address]- 2680 16 May, 2013 [facility] [place] [facility] [address] [id number], [place] [address]- 2737 11 May, 2013 [facility] [place] [facility] [address] [id number] [place] [address]- 0515 May, 2012 [facility] [place] [facility] [address] [id number] [place] [address]- 3483 May, [facility] [place] [facility] [address] [id number] [place] [address]- 6190 May, [facility] [place] [facility] [address] [id number] [place] [address]- 9001 May, [facility] [place] [facility] [address] [id number] [place] [address]- 6529 May, [facility] [place] [facility] [address] [id number] [place] [address]- 5300 May, [facility] [place] [facility] [address] [id number] [place] [address]- 6854 May, [facility] [place] [facility] [address] [id number] [place] [address]- 4235 May, [facility] [place] [facility] [address] [id number] [place] [address]- 8707 May, [facility] [place] [facility] [address] [id number] [place] [address]- 8816 Mar, [facility] [place] [facility] [address] [id number] [place] [address]- 6055 Mar, [facility] [place] [facility] [address] [id number] [place] [address]- 0313 Mar, [facility] [place] [facility] [address] [id number] [place] [address]- 3630 Mar, [facility] [place] [facility] [address] [id number] [place] [address]- 0477 30 Mar, 2013 [facility] [place] [facility] [address] [id number] [place] [address]- 2620 Mar, [facility] [place] [facility] [address] [id number] [place] [address]- 9969 Mar, [facility] [place] [facility] [address] [id number] [place] [address]- 6788 Mar, [facility] [place] [facility] [address] [id number] [place] [address]- 7106 Mar, [facility] [place] [facility] [address] [id number] [place] [address]- 4084 Mar, [facility] [place] [facility] [address] [id number] [place] [address]- 9868 Mar, [facility] [place] [facility] [address] [id number] [place] [address]- 1704 Mar, [facility] [place] [facility] [address] [id number] [place] [address]- 2495 Mar, [facility] [place] [facility] [address] [id number] [place] [address]- 9150 Mar, [facility] [place] [facility] [address] [id number], [place] [address]- 9892 Mar, [facility] [place] [facility] [address] [id number] [place] [address]- 7809 Mar, [facility] [place] [facility] [address] [id number], [place] [address]- 7602 Mar, [facility] [place] [facility] [address] [id number], [place] [address]- 5407 18 Mar, 2013 [facility] [place] [facility] [address] [id number], [place] [address]- 6784 18 Mar, 2013 [facility] [place] [facility] [address] [id number] [place] [address]- 8390 18 Mar, 2013 [facility] [place] [facility] [address] [id number], [place] [address] 18 Mar, 2013 [facility] [place] [facility] [address] [id number], [place] [address] 14 Mar, 2013 [facility] [place] [facility] [address] [id number] [place] [address] 14 Mar, 2013 [facility] [address] [id number] [place] [address] 1471 10 Mar, 2013 [facility] [address] [id number] [place] [address] 35[address] 18 Mar, 2013 [facility] [address] [id number] [place] [address]168 12 Mar, 2013 [facility] [address] [id number] [place] [address]605 11 Mar, 2013 [facility] [address] [id number] [place] [address] Jan, [facility] [address] [id number] [place] [address] October, [facility] [address] [id number] [place] [address] Sep, [facility] [address] [id number] [place] [address]- [address] 15 Sep, 2012 [facility] [address] [id number] [place] [address] 07 Aug, 2012 [facility] [address] [facility] [id number] [place] [address] Aug, [facility] [id number] [place] [address] Aug, [facility] [address] [id number], [place] [address] Jul, [facility] [place] [facility] [address] [id number] [place] [address]- [address]203 May, [facility] [place] [facility] [address] [id number] [place] [address] May, [facility] [address] [id number], [place] [address] May, [facility] [place] [facility] [address] [id number] [place] [address]- [address]111 18 May, 2012 [facility] [place] [facility] [address] [id number] [place] [address]- [address] Mar, [facility] [place] [facility] [address] [id number] [place] [address]- 3799 Mar, [facility] [place] [facility] [address] [id number] [place] [address], [place] [address]- [address]44 16 Mar, 2012 [facility] [place] [facility] [address] [id number] [place] [address]- 7941 25 Mar, 2012 [facility] [place] [facility] [address] [id number] [place] [address]- 2961 19 Mar, 2012 [facility] [place] [facility] [address] [id number] [place] [address]- 7095 13 Mar, 2012 [facility] [place] [facility] [address] [id number] [place] [address]- 8787 07 Mar, 2012 [facility] [place] [facility] [address] [id number] [place] [address] 98[address] Jan, [facility] [place] [facility] [address] [id number] [place] [address]27 Jan, [facility] [place] [facility] [address] [id number] [place] [address] Jan, [facility] [place] [facility] [address] [id number] [place] [address]- 9290 Jan, [facility] [place] [facility] [address] [id number] [place] [address]- [address] Jan, [facility] [place] [facility] [address] [id number] [place] [address]- 8199 Jan, [facility] [place] [facility] [address] [id number] [place] [address]- 37[address] Jan, [facility] [place] [facility] [address] [id number] [place] [address]- 3298 Jan, [facility] [place] [facility] [address] [id number] [place] [address]- 8987 Jan, [facility] [place] [facility] [address] [id number] [place] [address]- 9485 Jan, [facility] [place] [facility] [address] [id number] [place] [address]- 6314 Jan, [facility] [place] [facility] [address] [id number] [place] [address]- 0216 Jan, [facility] [place] [facility] [address] [id number] [place] [address]- 6350 Jan, [facility] [place] [facility] [address] [id number] [place] [address]- 7542 Jan, [facility] [place] [facility] [address] [id number] [place] [address]- 3416 Jan, [facility] [place] [facility] [address] [id number] [place] [address]- 0335 Jan, [facility] [place] [facility] [address] [id number] [place] [address]- 9948 Dec, [facility] [place] [facility] [address] [id number] [place] [address]- 7955 Dec, [facility] [place] [facility] [address] [id number] [place] [address]- 6761 Nov, [facility] [place] [facility] [address] [id number] [place] [address]- [address] Nov, [facility] [place] [facility] [address] [id number] [place] [address]- 3471 October, [facility] [place] [facility] [address] [id number] [place] [address]- 3209 October, [facility] [place] [facility] [address] [id number] [place] [address]- 9105 October, [facility] [place] [facility] [address] [id number] [place] [address]- 5196 19 Sep, 2011 [facility] [address] [id number] [place] [address]- 9356 18 Sep, 2011 [facility] [place] [facility] [address] [id number] [place] [address]- 6776 30 Aug, 2011 [facility] [address] [id number] [place] [address]- 9065 28 Aug, 2011 [facility] [address] [id number] [place] [address]- 0243 26 Aug, 2011 [facility] [address] [id number] [place] [address]- 8176 19 Aug, 2011 [facility] [address] [id number] [place] [address]- 7986 12 Aug, 2011 [facility] [address] [id number] [place] [address]- 3290 14 Aug, 2011 [facility] [address] [id number] [place] [address]- 6747 07 Aug, 2011 [facility] [address] [id number] [place] [address]- 3074 Jul, [facility] [address] [id number] [place] [address]- 0256 Jul, [facility] [address] [id number] [place] [address]- 1833 Jul, [facility] [address] [id number] [place] [address]- [address] May, [facility] [place] [facility] [address] [id number] [place] [address] May, [facility] [place] [facility] [address] [id number] [place] [address] May, [facility] [place] [facility] [address] [id number] [place] [address] May, [facility] [place] [facility] [address] [id number] [place] [address] May, [facility] [place] [facility] [address] [id number] [place] [address] May, [facility] [place] [facility] [address] [id number] [place] [address] May, [facility] [place] [facility] [address] [id number] [place] [address] Mar, [facility] [place] [facility] [address] [id number] [place] [address] Mar, [facility] [place] [facility] [address] [id number] [place] [address] Mar, [facility] [place] [facility] [address] [id number] [place] [address] 15 Mar, 2011 [facility] [place] [facility] [address] [id number] [place] [address] Mar, [facility] [place] [facility] [address] [id number] [place] [address] Mar, [facility] [place] [facility] [address] [id number], [place] [address] Jan, [facility] [place] [facility] [address] [id number], [place] [address] 31 May, 2009 [facility] [place] [facility] [address] [id number], [place] [address] 16 May, 2009 [facility] [place] [facility] [address] [id number] [place] [address] May, [facility] [place] [facility] [address] [id number], [place] [address] May, [facility] [place] [facility] [address] [id number] [place] [address] 10 May, 2009 [facility] [place] [facility] [address] [facility] [id number] [place] [address] May, [facility] [address] [facility] [id number] [place] [address] Mar, [facility] [address] [facility] [id number] [place] [address] Sep, IMMUNIZATIONS No Known Immunizations SOCIAL HISTORY Never Assessed REASON FOR VISIT Abdominal pain PLAN OF CARE VITAL SIGNS MEDICATIONS Unknown [...]
--- OUTSIDE RECORDS SUMMARY | 2018-01-25 15:47 | XMS REPORT ---
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 [place] [address]- 0853 May, [facility] [place] [facility] [address] [id number] [place] [address]- 5063 May, [facility] [place] [facility] [address] [id number] [place] [address]- 8934 May, [facility] [place] [facility] [address] [id number] [place] [address]- 1503 May, [facility] [place] [facility] [address] [id number] [place] [address]- 9995 May, [facility] [place] [facility] [address] [id number], [place] [address]- 3063 May, [facility] [place] [facility] [address] [id number], [place] [address]- 7762 Mar, [facility] [place] [facility] [address] [id number], [place] [address]- 3448 Mar, [facility] [place] [facility] [address] [id number] [place] [address]- 7114 Mar, [facility] [place] [facility] [address] [id number], [place] [address]- 0213 Mar, [facility] [place] [facility] [address] [id number], [place] [address]- 1568 Mar, [facility] [place] [facility] [address] [id number], [place] [address]- 4771 Mar, [facility] [place] [facility] [address] [id number] [place] [address]- 2217 Mar, [facility] [place] [facility] [address] [id number] [place] [address]- 5524 Mar, [facility] [place] [facility] [address] [id number] [place] [address]- 5935 Mar, [facility] [place] [facility] [address] [id number] [place] [address]- 9005 Mar, [facility] [place] [facility] [address] [id number] [place] [address]- 5106 Mar, [facility] [place] [facility] [address] [id number] [place] [address]- 8423 Mar, [facility] [place] [facility] [address] [id number] [place] [address]- 9798 Mar, [facility] [place] [facility] [address] [id number] [place] [address]- 6941 Mar, [facility] [place] [facility] [address] [id number] [place] [address]- 9680 Jan, [facility] [place] [facility] [address] [id number] [place] [address]- 4739 Jan, [facility] [place] [facility] [address] [id number] [place] [address]- 4002 Jan, [facility] [place] [facility] [address] [id number] [place] [address]- 7557 Jan, [facility] [place] [facility] [address] [id number] [place] [address]- 7971 Jan, [facility] [place] [facility] [address] [id number] [place] [address]- 2119 Jan, [facility] [place] [facility] [address] [id number] [place] [address]- 4477 Jan, [facility] [place] [facility] [address] [id number] [place] [address]- 1432 Jan, [facility] [place] [facility] [address] [id number] [place] [address]- 1176 Jan, [facility] [place] [facility] [address] [id number] [place] [address]- 2044 Dec, [facility] [place] [facility] [address] [id number] [place] [address]- 4113 Dec, [facility] [place] [facility] [address] [id number] [place] [address]- 6725 Dec, [facility] [place] [facility] [address] [id number] [place] [address]- 5426 Dec, [facility] [place] [facility] [address] [id number] [place] [address]- 6854 Dec, [facility] [place] [facility] [address] [id number] [place] [address]- 0555 Dec, [facility] [place] [facility] [address] [id number] [place] [address]- 2102 Dec, [facility] [place] [facility] [address] [id number] [place] [address]- 7172 Dec, [facility] [place] [facility] [address] [id number] [place] [address]- 9501 Dec, [facility] [place] [facility] [address] [id number] [place] [address]- 6471 October, [facility] [place] [facility] [address] [id number] [place] [address]- 6354 October, [facility] [place] [facility] [address] [id number] [place] [address]- 7070 Sep, [facility] [place] [facility] [address] [id number] [place] [address]- 3174 Sep, [facility] [place] [facility] [address] [id number] [place] [address]- 9880 07 Aug, 2013 [facility] [place] [facility] [address] [id number] [place] [address]- 1992 07 Aug, 2013 [facility] [place] [facility] [address] [id number] [place] [address]- 8111 07 Aug, 2013 [facility] [place] [facility] [address] [facility] [id number] [place] [address]- 8093 Aug, [facility] [place] [facility] [address] [id number] [place] [address]- 1035 Aug, [facility] [place] [facility] [address] [id number] [place] [address]- 0578 Aug, [facility] [place] [facility] [address] [id number] [place] [address]- 4838 14 Aug, 2013 [facility] [place] [facility] [address] [facility] [id number] [place] [address]- 5442 Aug, [facility] [place] [facility] [address] [id number] [place] [address]- 4295 Aug, [facility] [place] [facility] [address] [facility] [id number] [place] [address]- 1742 Aug, [facility] [place] [facility] [address] [facility] [id number] [place] [address]- 0672 Aug, [facility] [place] [facility] [address] [facility] [id number] [place] [address]- 9202 Jul, [facility] [place] [facility] [address] [facility] [id number] [place] [address]- 6767 Jul, [facility] [place] [facility] [address] [facility] [id number] [place] [address]- 9634 May, [facility] [place] [facility] [address] [facility] [id number] [place] [address]- 1451 May, [facility] [place] [facility] [address] [facility] [id number] [place] [address]- 7506 May, [facility] [place] [facility] [address] [id number] [place] [address]- 0687 10 May, 2013 [facility] [address] [id number] [place] [address]- 9545 May, [facility] [place] [facility] [address] [id number] [place] [address]- 6627 May, [facility] [place] [facility] [address] [id number] [place] [address]- 6924 May, [facility] [place] [facility] [address] [id number] [place] [address]- 4878 May, [facility] [place] [facility] [address] [id number] [place] [address]- 9582 May, [facility] [place] [facility] [address] [id number] [place] [address]- 9135 May, [facility] [place] [facility] [address] [id number] [place] [address]- 4062 May, [facility] [place] [facility] [address] [id number] [place] [address]- 5918 May, [facility] [place] [facility] [address] [id number] [place] [address]- 4223 May, [facility] [place] [facility] [address] [id number] [place] [address]- 9731 May, [facility] [place] [facility] [address] [id number] [place] [address]- 5636 May, [facility] [place] [facility] [address] [id number] [place] [address]- 8174 May, [facility] [place] [facility] [address] [id number] [place] [address]- 8719 May, [facility] [place] [facility] [address] [id number] [place] [address]- 4059 18 May, 2013 [facility] [place] [facility] [address] [id number] [place] [address]- 0820 May, [facility] [place] [facility] [address] [id number] [place] [address]- 2834 16 May, 2013 [facility] [place] [facility] [address] [id number] [place] [address] May, [facility] [place] [facility] [address] [id number] [place] [address] May, [facility] [place] [facility] [address] [id number] [place] [address] May, [facility] [place] [facility] [address] [id number] [place] [address] May, [facility] [place] [facility] [address] [id number] [place] [address] May, [facility] [place] [facility] [address] [id number] [place] [address] May, [facility] [place] [facility] [address] [id number], [place] [address] May, [facility] [place] [facility] [address] [id number], [place] [address] May, [facility] [place] [facility] [address] [id number], [place] [address] May, [facility] [place] [facility] [address] [id number], [place] [address] May, [facility] [place] [facility] [address] [id number], [place] [address] Mar, [facility] [place] [facility] [address] [id number], [place] [address] Mar, [facility] [place] [facility] [address] [id number], [place] [address] Mar, [facility] [place] [facility] [address] [id number], [place] [address] Mar, [facility] [place] [facility] [address] [id number] [place] [address] 30 Mar, 2012 [facility] [place] [facility] [address] [id number] [place] [address] 8466 Mar, 2012 [facility] [place] [facility] [address] [id number] [place] [address] Mar, 2012 [facility] [place] [facility] [address] [id number] [place] [address] Mar, 2012 [facility] [place] [facility] [address] [id number] [place] [address] 1573 Mar, 2012 [facility] [place] [facility] [address] [id number] [place] [address] Mar, 2012 [facility] [place] [facility] [address] [id number] [place] [address] Mar, [facility] [place] [facility] [address] [id number] [place] [address] Mar, 2012 [facility] [place] [facility] [address] [id number] [place] [address] 24 Mar, 2013 [facility] [place] [facility] [address] [id number] [place] [address]- 2464 Mar, [facility] [place] [facility] [address] [id number] [place] [address]365 Mar, [facility] [place] [facility] [address] [id number] [place] [address] 3814 Mar, 2012 [facility] [place] [facility] [address] [id number], [place] [address] Mar, 2012 [facility] [place] [facility] [address] [id number] [place] [address] 18 Mar, 2012 [facility] [place] [facility] [address] [id number] [place] [address] 18 Mar, 2012 [facility] [place] [facility] [address] [id number], [place] [address] 18 Mar, 2013 [facility] [place] [facility] [address] [id number] [place] [address] 18 Mar, 2013 [facility] [place] [facility] [address] [id number] [place] [address] 14 Mar, 2013 [facility] [place] [facility] [address] [id number] [place] [address] 14 Mar, 2013 [facility] [place] [facility] [address] [id number] [place] [address] 10 Mar, 2013 [facility] [place] [facility] [address] [id number] [place] [address] 18 Mar, 2013 [facility] [place] [facility] [address] [id number] [place] [address] 37[address] 12 Mar, 2013 [facility] [place] [facility] [address] [id number] [place] [address] 1394 Mar, [facility] [place] [facility] [address] [id number] [place] [address] Jan, [facility] [place] [facility] [address] [id number] [place] [address] October, [facility] [place] [facility] [address] [id number] [place] [address] Sep, [facility] [place] [facility] [address] [id number] [place] [address]47 Sep, [facility] [place] [facility] [address] [id number], [place] [address] Aug, [facility] [place] [facility] [address] [id number] [place] [address] 2626 Aug, [facility] [place] [facility] [address] [id number] [place] [address]- 9286 Aug, [facility] [place] [facility] [address] [id number] [place] [address] Jul, [facility] [place] [facility] [address] [id number], [place] [address] 19 May, 2012 [facility] [place] [facility] [address] [id number] [place] [address]- 4084 19 May, 2012 [facility] [place] [facility] [address] [id number] [place] [address] 18 May, 2012 [facility] [place] [facility] [address] [id number] [place] [address]- [address]3 18 May, 2012 [facility] [place] [facility] [address] [id number] [place] [address]- 5980 19 Mar, 2012 [facility] [place] [facility] [address] [id number] [place] [address]- 4210 19 Mar, 2012 [facility] [place] [facility] [address] [id number] [place] [address] 7980 16 Mar, 2012 [facility] [place] [facility] [address] [id number] [place] [address]- 4506 25 Mar, 2012 [facility] [place] [facility] [address] [id number] [place] [address] 3153 19 Mar, 2012 [facility] [place] [facility] [address] [id number] [place] [address]- 1712 13 Mar, 2012 [facility] [place] [facility] [address] [id number] [place] [address]- 6968 07 Mar, 2012 [facility] [place] [facility] [address] [id number], [place] [address] 30 Jan, 2012 [facility] [place] [facility] [address] [id number] [place] [address] 28 Jan, 2012 [facility] [place] [facility] [address] [id number] [place] [address]- 7577 20 Jan, 2012 [facility] [place] [facility] [address] [id number] [place] [address] 14 Jan, 2012 [facility] [place] [facility] [address] [id number] [place] [address]- [address] 09 Jan, 2012 [facility] [place] [facility] [address] [id number] [place] [address] Jan, 2011 [facility] [place] [facility] [address] [id number] [place] [place] [address] Jan, [facility] [place] [facility] [address] [id number] [place] [address] Jan, [facility] [place] [facility] [address] [id number] [place] [address] Jan, 2011 [facility] [place] [facility] [address] [id number] [place] [address] Jan, [facility] [place] [facility] [address] [id number] [place] [address] Jan, [facility] [place] [facility] [address] [id number] [place] [address] Jan, [facility] [place] [facility] [address] [id number] [place] [address] Jan, [facility] [place] [facility] [address] [id number] [place] [address] Jan, [facility] [place] [facility] [address] [id number] [place] [address] Jan, [facility] [place] [facility] [address] [id number] [place] [address] Jan, [facility] [place] [facility] [address] [id number] [place] [address] Dec, [facility] [place] [facility] [address] [id number] [place] [address] Dec, [facility] [place] [facility] [address] [id number] [place] [address] Nov, [facility] [place] [facility] [address] [id number] [place] [address] Nov, [facility] [place] [facility] [address] [id number] [place] [address] October, [facility] [address] [id number] [place] [address] October, [facility] [place] [facility] [address] [id number] [place] [address] October, [facility] [place] [facility] [address] [id number] [place] [address] Sep, [facility] [place] [facility] [address] [id number] [place] [address] Sep, [facility] [place] [facility] [address] [id number] [place] [address] 30 Aug, 2011 [facility] [place] [facility] [address] [id number] [place] [address] Aug, [facility] [place] [facility] [address] [id number] [place] [address] Aug, [facility] [place] [facility] [address] [id number] [place] [address] Aug, [facility] [place] [facility] [address] [id number] [place] [address] Aug, [facility] [place] [facility] [address] [id number] [place] [address] Aug, [facility] [place] [facility] [address] [id number] [place] [address] Aug, [facility] [place] [facility] [address] [id number] [place] [address] Jul, [facility] [place] [facility] [address] [id number] [place] [address] Jul, [facility] [place] [facility] [address] [id number] [place] [address] Jul, [facility] [place] [facility] [address] [id number] [place] [address] May, [facility] [place] [facility] [address] [id number] [place] [address] 28 May, 2011 [facility] [address] [id number] [place] [address] 21 May, 2011 [facility] [place] [facility] [address] [id number] [place] [address] 19 May, 2011 [facility] [place] [facility] [address] [id number] [place] [address] 13 May, 2011 [facility] [place] [facility] [address] [id number] [place] [address] 13 May, 2011 [facility] [place] [facility] [address] [id number] [place] [address] May, [facility] [place] [facility] [address] [id number] [place] [address] 25 Mar, 2011 [facility] [place] [facility] [address] [id number] [place] [address] 20 Mar, 2011 [facility] [place] [facility] [address] [id number] [place] [address] 19 Mar, 2011 [facility] [place] [facility] [address] [id number] [place] [address] [address] 15 Mar, 2011 [facility] [place] [facility] [address] [id number] [place] [address] 27 Mar, 2010 [facility] [place] [facility] [address] [id number] [place] [address] 13 Mar, 2010 [facility] [place] [facility] [address] [id number] [place] [address] 10 Jan, 2010 [facility] [place] [facility] [address] [id number] [place] [address] 31 May, 2009 [facility] [place] [facility] [address] [id number] [place] [address] 16 May, 2009 [facility] [place] [facility] [address] [id number] [place] [address] May, [facility] [address] [facility] [id number], [place] [address] May, [place] [address] [facility] [id number], [place] [address] May, [facility] [address] [facility] [id number], [place] [address] May, [place] [address] [facility] [id number], [place] [address] Mar, [place] [address] [facility] [id number], [place] [address] Sep, IMMUNIZATIONS Vaccine Route Administration Date Status DEXAMETHASONE 4MG/ML (PER 1 MG) IM Intramuscular September 04, 2017 Administered DEPO MEDROL 40 MG/ML IM Intramuscular September 04, 2017 Administered SOCIAL HISTORY Never Assessed REASON FOR VISIT Cough for about 1 week- has to prop up at night, nasal congestion JStrasserRN PLAN OF CARE Activity Details Follow Up prn Reason: VITAL SIGNS Height 64 in 2017-09-04 Weight 134.4 lbs 2017-09-04 Temperature 97.6 degrees Fahrenheit 2017-09-04 Heart Rate 64 bpm 2017-09-04 Respiratory Rate 16 2017-09-04 BMI 23.07 kg/m2 2017-09-04 Blood pressure systolic 102 mmHg 2017-09-04 Blood pressure diastolic 70 mmHg 2017-09-04 MEDICATIONS Medication Instructions Dosage Frequency Start Date End Date Duration Status EpiPen 2-David 0.3 MG/0.3ML Injection repeat in 20 minutes Inject into thigh at first signs of anaphylaxis October, 30 days Active Toviaz 4 MG Orally Once a day 1 tablet 24h October, 90 days Active Albuterol Sulfate (2.5 MG/3ML) 0.083% Inhalation Three times a day 3 ml 8h Aug, Active Advair Diskus 250-50 MCG/DOSE Inhalation Twice a day 1 puff 12h Sep, Active Ventolin HFA 108 (90 Base) MCG/ACT Inhalation every 4 hrs 2 puffs as needed 4h Aug, Active Xanax 1 MG Orally 3 times a day 1 tablet 8h Aug, 28 days Active Lyrica 25 MG Orally Twice a day 1 capsule 12h Active Topamax 25 MG Orally Twice a day 3 tablet 12h Nov, 30 days Active Flonase 50 MCG/ACT Nasally twice a day 1 spray in each nostril 12h Jan, 30 day(s) Active Lexapro 20 mg Orally Once a day 2 tablets 24h 90 days Active Hydrocodone-Acetaminophen 7.5-325 MG Orally twice a day 1 tablet as needed 12h May, 28 days Active Omeprazole 40 MG Orally Once a day 1 capsule 24h 90 days Active Flonase 50 MCG/ACT Nasally Once a day 1 spray in each nostril 24h Aug, 30 day(s) Active Dicyclomine HCl 20 mg Orally Four times a day before meals and hs 1 tablet Aug, Active Singulair 10 MG Orally Once a day 1 tablet in the evening 24h Active Benztropine Mesylate 1 MG TAKE ONE TABLET BY MOUTH THREE TIMES DAILY 90 Active RESULTS No Results PROCEDURES Procedure Date Ordered Result Body Site DEPO MEDROL 40 MG/ML September 04, 2017 DEXAMETHASONE 4MG/ML (PER 1 MG) September 04, 2017 THER/PROPH/DIAG INJ, SC/IM September 04, 2017 INSTRUCTIONS MEDICATIONS ADMINISTERED No Known Medications [...]
--- OUTSIDE RECORDS SUMMARY | 2018-01-25 15:48 | XMS REPORT ---
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 [facility] [address] [id number] [place] [address]- 6408 May, [facility] [place] [facility] [address] [id number] [place] [address]- 7910 May, [facility] [place] [facility] [address] [id number] [place] [address]- 8053 May, [facility] [place] [facility] [address] [id number] [place] [address]- 0929 May, [facility] [place] [facility] [address] [id number] [place] [address]- 0336 May, [facility] [place] [facility] [address] [id number] [place] [address]- 2324 May, [facility] [place] [facility] [address] [id number] [place] [address]- 4068 May, [facility] [place] [facility] [address] [id number] [place] [address]- 0088 May, [facility] [place] [facility] [address] [id number], [place] [address]- 7882 May, [facility] [place] [facility] [address] [id number], [place] [address]- 3385 Mar, [facility] [place] [facility] [address] [id number], [place] [address]- 3672 Mar, [facility] [place] [facility] [address] [id number] [place] [address]- 3077 Mar, [facility] [place] [facility] [address] [id number], [place] [address]- 2647 Mar, [facility] [place] [facility] [address] [id number] [place] [address]- 6813 Mar, [facility] [place] [facility] [address] [id number] [place] [address]- 8925 Mar, [facility] [place] [facility] [address] [id number] [place] [address]- 1911 Mar, [facility] [place] [facility] [address] [id number] [place] [address]- 4419 Mar, [facility] [place] [facility] [address] [id number] [place] [address]- 8542 Mar, [facility] [place] [facility] [address] [id number] [place] [address]- 4416 Mar, [facility] [place] [facility] [address] [id number] [place] [address]- 4464 Mar, [facility] [place] [facility] [address] [id number] [place] [address]- 3844 Mar, [facility] [place] [facility] [address] [id number] [place] [address]- 7519 Mar, [facility] [place] [facility] [address] [id number] [place] [address]- 1768 Mar, [facility] [place] [facility] [address] [id number] [place] [address]- 7601 Jan, [facility] [place] [facility] [address] [id number] [place] [address]- 4825 Jan, [facility] [place] [facility] [address] [id number] [place] [address]- 2286 Jan, [facility] [place] [facility] [address] [id number] [place] [address]- 7093 Jan, [facility] [place] [facility] [address] [id number] [place] [address]- 9941 Jan, [facility] [place] [facility] [address] [id number] [place] [address]- 4274 Jan, [facility] [place] [facility] [address] [id number] [place] [address]- 2324 Jan, [facility] [place] [facility] [address] [id number] [place] [address]- 7952 Jan, [facility] [place] [facility] [address] [id number] [place] [address]- 3114 Jan, [facility] [place] [facility] [address] [id number] [place] [address]- 2887 Dec, [facility] [place] [facility] [address] [id number] [place] [address]- 1484 Dec, [facility] [place] [facility] [address] [id number] [place] [address]- 3682 Dec, [facility] [place] [facility] [address] [id number] [place] [address]- 2776 Dec, [facility] [place] [facility] [address] [id number] [place] [address]- 3440 Dec, [facility] [place] [facility] [address] [id number] [place] [address]- 0909 Dec, [facility] [place] [facility] [address] [id number] [place] [address]- 9365 Dec, [facility] [place] [facility] [address] [id number] [place] [address]- 6760 Dec, [facility] [place] [facility] [address] [id number] [place] [address]- 3994 Dec, [facility] [place] [facility] [address] [id number] [place] [address]- 8054 October, [facility] [place] [facility] [address] [id number] [place] [address]- 6545 October, [facility] [place] [facility] [address] [id number] [place] [address]- 2827 Sep, [facility] [place] [facility] [address] [id number] [place] [address]- 0754 Sep, [facility] [place] [facility] [address] [id number] [place] [address]- 4934 07 Aug, 2013 [facility] [place] [facility] [address] [id number] [place] [address]- 1611 Aug, [facility] [place] [facility] [address] [id number] [place] [address]- 6306 Aug, [facility] [place] [facility] [address] [facility] [facility] [id number] [place] [address]- 2402 Aug, [facility] [place] [facility] [address] [id number] [place] [address]- 5458 Aug, [facility] [place] [facility] [address] [id number] [place] [address]- 5444 Aug, [facility] [place] [facility] [address] [facility] [facility] [id number] [place] [address]- 4578 14 Aug, 2013 [facility] [place] [facility] [address] [facility] [address] [facility] [id number] [place] [address]- 6565 Aug, [facility] [place] [facility] [address] [id number] [place] [address]- 8950 Aug, [facility] [place] [facility] [address] [facility] [address] [facility] [id number] [place] [address]- 8816 Aug, [facility] [place] [facility] [address] [facility] [address] [facility] [id number] [place] [address]- 4426 Aug, [facility] [place] [facility] [address] [facility] [address] [facility] [id number] [place] [address]- 8499 Jul, [facility] [place] [facility] [address] [facility] [address] [facility] [id number] [place] [address]- 2010 Jul, [facility] [place] [facility] [address] [id number] [place] [address]- 2978 May, [facility] [place] [facility] [address] [facility] [facility] [id number] [place] [address]- 5816 May, [facility] [place] [facility] [address] [facility] [facility] [id number] [place] [address]- 6624 May, [facility] [place] [facility] [address] [id number] [place] [address]- 0011 May, [facility] [place] [facility] [address] [id number] [place] [address]- 6838 May, [facility] [place] [facility] [address] [id number] [place] [address]- 3231 May, [facility] [place] [facility] [address] [id number] [place] [address]- 0271 May, [facility] [place] [facility] [address] [id number] [place] [address]- 9155 May, [facility] [place] [facility] [address] [id number] [place] [address]- 0071 May, [facility] [place] [facility] [address] [id number] [place] [address]- 4941 May, [facility] [place] [facility] [address] [id number] [place] [address]- 9863 May, [facility] [place] [facility] [address] [id number] [place] [address]- 2198 May, [facility] [place] [facility] [address] [id number] [place] [address]- 9033 May, [facility] [place] [facility] [address] [id number] [place] [address]- 1099 May, [facility] [place] [facility] [address] [id number] [place] [address]- 4620 May, [facility] [place] [facility] [address] [id number] [place] [address]- 9702 May, [facility] [place] [facility] [address] [id number] [place] [address]- 6183 May, [facility] [place] [facility] [address] [id number] [place] [address]- 9152 18 May, 2013 [facility] [place] [facility] [address] [id number] [place] [address]- 0612 May, [facility] [place] [facility] [address] [id number] [place] [address]- 1937 16 May, 2013 [facility] [place] [facility] [address] [id number], [place] [address]- 6471 May, [facility] [place] [facility] [address] [facility] [facility] [id number] [place] [address]- 4770 May, [facility] [place] [facility] [address] [id number], [place] [address]- 1389 May, [facility] [place] [facility] [address] [id number] [place] [address]- 8935 May, [facility] [place] [facility] [address] [id number], [place] [address]- 0985 May, [facility] [place] [facility] [address] [id number], [place] [address]- 7187 May, [facility] [place] [facility] [address] [id number], [place] [address]- 5715 May, [facility] [place] [facility] [address] [id number], [place] [address]- 5599 May, [facility] [place] [facility] [address] [id number], [place] [address]- 3262 May, [facility] [place] [facility] [address] [id number], [place] [address]- 0438 May, [facility] [place] [facility] [address] [id number], [place] [address]- 9784 Mar, [facility] [place] [facility] [address] [id number], [place] [address]- 2110 Mar, [facility] [place] [facility] [address] [id number], [place] [address]- 6019 Mar, [facility] [place] [facility] [address] [id number], [place] [address] Mar, [facility] [place] [facility] [address] [id number] [place] [address] 30 Mar, 2012 [facility] [place] [facility] [address] [id number] [place] [address] Mar, 2012 [facility] [place] [facility] [address] [id number] [place] [address] Mar, 2012 [facility] [place] [facility] [address] [id number] [place] [address] Mar, 2012 [facility] [place] [facility] [address] [id number] [place] [address] 140[address] Mar, 2012 [facility] [place] [facility] [address] [id number] [place] [address] Mar, 2012 [facility] [place] [facility] [address] [id number] [place] [address] Mar, [facility] [place] [facility] [address] [id number] [place] [address]26 Mar, 2012 [facility] [place] [facility] [address] [id number] [place] [address]- [address] 24 Mar, 2013 [facility] [place] [facility] [address] [id number] [place] [address]- [address] Mar, 2012 [facility] [place] [facility] [address] [id number] [place] [address]- [address] Mar, 2012 [facility] [place] [facility] [address] [id number] [place] [address]- [address] Mar, 2012 [facility] [place] [facility] [address] [id number] [place] [address]- [address] Mar, [facility] [place] [facility] [address] [id number] [place] [address]- 9691 18 Mar, 2012 [facility] [place] [facility] [address] [id number] [place] [address]- 6[address] 18 Mar, 2012 [facility] [place] [facility] [address] [id number] [place] [address]- [address]35 18 Mar, 2013 [facility] [place] [facility] [address] [id number] [place] [address]- 8900 18 Mar, 2013 [facility] [place] [facility] [address] [id number] [place] [address]- 9686 14 Mar, 2013 [facility] [place] [facility] [address] [id number] [place] [address]- 9534 14 Mar, 2013 [facility] [place] [facility] [address] [id number] [place] [address]- 1080 10 Mar, 2013 [facility] [address] [id number] [place] [address]- 4[address] 18 Mar, 2013 [facility] [place] [facility] [address] [id number] [place] [address]- 1621 12 Mar, 2013 [facility] [address] [id number] [place] [address]- 1705 11 Mar, 2013 [facility] [address] [id number] [place] [address]- [address] Jan, [facility] [place] [facility] [address] [id number] [place] [address] October, [facility] [place] [facility] [address] [id number] [place] [address]- [address] Sep, [facility] [place] [facility] [address] [id number] [place] [address]- [address] 15 Sep, 2012 [facility] [place] [facility] [address] [id number], [place] [address] Aug, [facility] [place] [facility] [address] [id number] [place] [address]- [address]167 Aug, [facility] [place] [facility] [address] [id number], [place] [address] 04 Aug, 2012 [facility] [place] [facility] [address] [id number], [place] [address] Jul, [facility] [place] [facility] [address] [id number], [place] [address] 19 May, 2012 [facility] [place] [facility] [address] [id number] [place] [address]- 9326 19 May, 2012 [facility] [place] [facility] [address] [id number] [place] [address]- 8542 18 May, 2012 [facility] [place] [facility] [address] [facility] [id number] [place] [address]- [address] 18 May, 2012 [facility] [place] [facility] [address] [id number] [place] [address]- 6200 19 Mar, 2012 [facility] [place] [facility] [address] [id number] [place] [address], [place] [address]- [address]339 19 Mar, 2012 [facility] [place] [facility] [address] [facility] [id number] [place] [address]- 5151 16 Mar, 2012 [facility] [place] [facility] [id number] [place] [address] 25 Mar, 2012 [facility] [place] [facility] [address] [id number] [place] [address]- 5166 19 Mar, 2012 [facility] [place] [facility] [address] [id number] [place] [address]68 13 Mar, 2012 [facility] [place] [facility] [address] [facility] [id number] [place] [address]- 3671 07 Mar, 2012 [facility] [place] [facility] [address] [facility] [id number] [place] [address]- [address]34 30 Jan, 2012 [facility] [place] [facility] [address] [id number], [place] [address] 28 Jan, 2012 [facility] [place] [facility] [address] [id number] [place] [address]- 3038 20 Jan, 2012 [facility] [place] [facility] [address] [facility] [id number] [place] [address]- 7945 14 Jan, 2012 [facility] [place] [facility] [address] [id number] [place] [address]- [address] 09 Jan, 2012 [facility] [place] [facility] [address] [id number] [place] [address]- 2973 Jan, [facility] [place] [facility] [address] [id number] [facility] [place] [address] Jan, [facility] [place] [facility] [address] [id number] [place] [address]- 7581 Jan, [facility] [place] [facility] [address] [id number] [place] [address]- 1594 Jan, [facility] [place] [facility] [address] [id number] [place] [address]- 8555 Jan, [facility] [place] [facility] [address] [id number] [place] [address]- 1800 Jan, [facility] [place] [facility] [address] [id number] [place] [address]- 4226 Jan, [facility] [place] [facility] [address] [id number] [place] [address]- 5003 Jan, [facility] [place] [facility] [address] [id number] [place] [address]- 4654 Jan, [facility] [place] [facility] [address] [id number] [place] [address]- 7691 Jan, [facility] [place] [facility] [address] [id number] [place] [address]- 2105 Jan, [facility] [place] [facility] [address] [id number] [place] [address]- 0847 Dec, [facility] [place] [facility] [address] [id number] [place] [address]- [address]305 Dec, [facility] [place] [facility] [address] [id number] [place] [address]- 2873 Nov, [facility] [place] [facility] [address] [id number] [place] [address] Nov, [facility] [place] [facility] [address] [id number] [place] [address] October, [facility] [address] [id number] [place] [address] October, [facility] [place] [facility] [address] [id number] [place] [address] October, [facility] [place] [facility] [address] [id number] [place] [address] Sep, [facility] [place] [facility] [address] [id number] [place] [address] Sep, [facility] [place] [facility] [address] [id number] [place] [address] 30 Aug, 2011 [facility] [place] [facility] [address] [id number] [place] [address] Aug, [facility] [place] [facility] [address] [id number] [place] [address] Aug, [facility] [place] [facility] [address] [id number] [place] [address] Aug, [facility] [place] [facility] [address] [id number] [place] [address] Aug, [facility] [place] [facility] [address] [id number] [place] [address] Aug, [facility] [place] [facility] [address] [id number] [place] [address] Aug, [facility] [place] [facility] [address] [id number] [address] Jul, [facility] [place] [facility] [address] [id number] [place] [address] Jul, [facility] [place] [facility] [address] [id number] [place] [address] Jul, [facility] [place] [facility] [address] [id number] [place] [address] May, [facility] [place] [facility] [address] [id number] [place] [address] 28 May, 2011 [facility] [address] [id number] [place] [address] May, [facility] [address] [id number] [place] [address] 19 May, 2011 [facility] [address] [id number] [place] [address] May, [facility] [address] [id number] [place] [address] May, [facility] [address] [id number] [place] [address] May, [facility] [address] [id number] [place] [address] 25 Mar, 2011 [facility] [address] [id number] [place] [address] 20 Mar, 2011 [facility] [address] [id number] [place] [address] Mar, [facility] [address] [id number] [place] [address] 15 Mar, 2011 [facility] [address] [id number] [place] [address] 27 Mar, 2010 [facility] [address] [id number] [place] [address] 13 Mar, 2010 [facility] [address] [id number] [place] [address] 10 Jan, 2010 [facility] [place] [facility] [address] [id number] [place] [address] 31 May, 2009 [facility] [place] [facility] [address] [id number] [place] [address] 16 May, 2009 [facility] [address] [id number] [place] [address] May, [facility] [address] [facility] [id number], [place] [address] May, [facility] [address] [facility] [id number], [place] [address] May, [facility] [address] [facility] [id number], [place] [address] May, [facility] [address] [facility] [id number], [place] [address] Mar, [facility] [address] [facility] [id number], [place] [address] Sep, IMMUNIZATIONS Vaccine Route Administration Date Status DEPO PROVERA (150 MG/ML) IM Intramuscular September 04, 2017 Administered SOCIAL HISTORY Never Assessed REASON FOR VISIT Depo Provera injection PLAN OF CARE VITAL SIGNS MEDICATIONS Unknown Medications RESULTS No Results PROCEDURES Procedure Date Ordered Result Body Site DEPO PROVERA (150 MG/ML) September 04, 2017 THER/PROPH/DIAG INJ, SC/IM September [...]
--- OUTSIDE RECORDS SUMMARY | 2018-01-25 15:50 | XMS REPORT ---
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 [facility] [address] [id number] [place] [address]- 6673 Mar, 2013 [facility] [place] [facility] [address] [id number] [place] [address]- 2314 Mar, [facility] [place] [facility] [address] [id number] [place] [address]- 3091 Jan, [facility] [place] [facility] [address] [id number] [place] [address]- 9424 Jan, [facility] [place] [facility] [address] [id number] [facility] [place] [address]- 1949 Jan, [facility] [place] [facility] [address] [id number] [place] [address]- 1819 Jan, [facility] [place] [facility] [address] [id number] [place] [address]- 3329 Jan, [facility] [place] [facility] [address] [id number] [place] [address]- 5696 Jan, [facility] [place] [facility] [address] [id number] [place] [address]- 1617 Jan, [facility] [place] [facility] [address] [id number] [place] [address]- 9464 Jan, [facility] [place] [facility] [address] [id number] [place] [address]- 4935 Jan, [facility] [place] [facility] [address] [id number] [place] [address]- 9334 Dec, [facility] [place] [facility] [address] [id number] [place] [address]- 3617 Dec, [facility] [place] [facility] [address] [id number] [place] [address]- 0745 Dec, [facility] [place] [facility] [address] [id number] [place] [address]- 5712 Dec, [facility] [place] [facility] [address] [id number] [place] [address]- 8899 Dec, [facility] [place] [facility] [address] [id number] [facility] [place] [address]- 2143 Dec, [facility] [place] [facility] [address] [id number] [place] [address]- 1349 Dec, [facility] [place] [facility] [address] [id number] [place] [address]- 5321 Dec, [facility] [place] [facility] [address] [id number] [place] [address]- 4862 Dec, [facility] [place] [facility] [address] [id number] [place] [address]- 6215 October, [facility] [place] [facility] [address] [id number] [place] [address]- 7156 October, [facility] [place] [facility] [address] [facility] [id number] [place] [address]- 6937 Sep, [facility] [place] [facility] [address] [id number] [place] [address]- 1984 Sep, [facility] [place] [facility] [address] [id number] [place] [address]- 7371 Aug, [facility] [place] [facility] [address] [facility] [id number] [place] [address]- 9953 Aug, [facility] [place] [facility] [address] [facility] [id number] [place] [address]- 2668 Aug, [facility] [place] [facility] [address] [facility] [id number] [place] [address]- 0011 Aug, [facility] [place] [facility] [address] [facility] [id number] [place] [address]- 0791 Aug, [facility] [place] [facility] [address] [facility] [id number] [place] [address]- 4394 Aug, [facility] [place] [facility] [address] [facility] [id number] [place] [address]- 2682 14 Aug, 2013 [facility] [place] [facility] [address] [facility] [id number] [address]- 7153 Aug, [facility] [place] [facility] [address] [facility] [id number] [place] [address]- 5716 07 Aug, 2013 [facility] [place] [facility] [address] [facility] [id number] [place] [address]- 9743 Aug, [facility] [place] [facility] [address] [facility] [id number] [place] [address]- 5113 Aug, [facility] [place] [facility] [address] [id number] [place] [address]- 4165 Jul, [facility] [place] [facility] [address] [id number] [place] [address]- 1297 Jul, [facility] [place] [facility] [address] [id number] [place] [address]- 7626 May, [facility] [place] [facility] [address] [id number] [place] [address]- 3094 May, [facility] [place] [facility] [address] [id number] [place] [address] 2542 May, [facility] [place] [facility] [address] [id number] [place] [address]- 4465 May, [facility] [place] [facility] [address] [id number] [place] [address]- 2099 May, [facility] [place] [facility] [address] [id number] [place] [address]- 5342 May, [facility] [place] [facility] [address] [id number] [place] [address]- 2119 May, [facility] [place] [facility] [address] [id number] [place] [address]- 3123 May, [facility] [place] [facility] [address] [id number] [place] [address]- 3399 May, [facility] [place] [facility] [address] [id number] [place] [address]- 2289 May, [facility] [place] [facility] [address] [id number] [place] [address]- 3351 May, [facility] [place] [facility] [address] [id number] [place] [address] 2542 May, [facility] [place] [facility] [address] [id number] [place] [address]- 2543 May, [facility] [place] [facility] [address] [id number] [place] [address]- 9373 May, [facility] [place] [facility] [address] [id number] [place] [address]- 1941 May, [facility] [place] [facility] [address] [id number], [place] [address]- 2620 May, [facility] [place] [facility] [address] [facility] [id number] [place] [address]- 9365 May, [facility] [place] [facility] [address] [id number], [place] [address]- 7926 May, [facility] [place] [facility] [address] [id number] [place] [address]- 5908 May, [facility] [place] [facility] [address] [id number], [place] [address]- 6279 May, [facility] [place] [facility] [address] [id number], [place] [address]- 1030 May, [facility] [place] [facility] [address] [id number], [place] [address]- 1940 May, [facility] [place] [facility] [address] [id number], [place] [address]- 7865 May, [facility] [place] [facility] [address] [id number], [place] [address]- 8424 May, [facility] [place] [facility] [address] [id number], [place] [address]- 1805 May, [facility] [place] [facility] [address] [id number], [place] [address]- 9262 May, [facility] [place] [facility] [address] [id number], [place] [address]- 1911 May, [facility] [place] [facility] [address] [id number], [place] [address]- 6442 May, [facility] [place] [facility] [address] [id number], [place] [address]- 0589 May, [facility] [place] [facility] [address] [id number] [place] [address]- 9832 May, [facility] [place] [facility] [address] [id number] [place] [address]- 1320 Mar, 2012 [facility] [place] [facility] [address] [id number] [place] [address]- 8651 Mar, 2012 [facility] [place] [facility] [address] [id number] [place] [address]- 8638 Mar, 2012 [facility] [place] [facility] [address] [id number] [place] [address]- 2735 Mar, 2012 [facility] [place] [facility] [address] [id number] [place] [address]- 3904 30 Mar, 2012 [facility] [place] [facility] [address] [id number] [place] [address]- 6770 Mar, 2012 [facility] [place] [facility] [address] [id number] [place] [address]- 2803 Mar, 2012 [facility] [place] [facility] [address] [id number] [place] [address]- 8129 Mar, [facility] [place] [facility] [address] [id number] [place] [address]- 9390 Mar, [facility] [place] [facility] [address] [id number] [place] [address]- 5920 Mar, [facility] [place] [facility] [address] [id number] [place] [address]- 7850 Mar, [facility] [place] [facility] [address] [id number] [place] [address]- 4062 Mar, [facility] [place] [facility] [address] [id number] [place] [address]- 4156 24 Mar, 2013 [facility] [place] [facility] [address] [id number] [place] [address]- 5057 Mar, 2012 [facility] [place] [facility] [address] [id number] [place] [address]- 1186 Mar, [facility] [place] [facility] [address] [id number] [place] [address]- 8341 Mar, [facility] [place] [facility] [address] [id number] [place] 4236 21 Mar, 2013 [facility] [place] [facility] [address] [id number] [place] [address]- 9339 18 Mar, 2013 [facility] [place] [facility] [address] [id number] [place] [address]- 3153 18 Mar, 2013 [facility] [address] [id number] [place] [address]- 9420 18 Mar, 2013 [facility] [place] [facility] [address] [id number] [place] [address]- 1790 18 Mar, 2013 [facility] [address] [id number] [place] [address]- 2593 14 Mar, 2013 [facility] [place] [facility] [address] [id number] [place] [address]- 6251 14 Mar, 2013 [facility] [place] [facility] [address] [id number] [place] [address]- 7478 10 Mar, 2013 [facility] [place] [facility] [address] [id number] [place] [address]- 3356 18 Mar, 2013 [facility] [place] [facility] [address] [id number] [place] [address] 12 Mar, 2013 [facility] [place] [facility] [address] [id number], [place] [address] Mar, [facility] [place] [facility] [address] [id number] [place] [address] Jan, [facility] [place] [facility] [address] [id number] [place] [address] October, [facility] [place] [facility] [address] [id number] [place] [address] Sep, [facility] [place] [facility] [address] [id number], [place] [address] 15 Sep, 2012 [facility] [address] [id number] [place] [address] 07 Aug, 2012 [facility] [address] [facility] [id number], [place] [address] 06 Aug, 2012 [facility] [address] [facility] [id number] [place] [address] 5868 04 Aug, 2012 [facility] [address] [facility] [id number], [place] [address] 49[address] 17 Jul, 2012 [facility] [address] [facility] [id number] [place] [address]60 19 May, 2012 [facility] [address] [facility] [id number], [place] [address] 19 May, 2012 [facility] [address] [facility] [id number], [place] [address] 89[address] 18 May, 2012 [facility] [address] [facility] [id number], [place] [address] 72[address] 18 May, 2012 [facility] [address] [facility] [id number], [place] [address] 3[address] 19 Mar, 2012 [facility] [address] [facility] [id number], [place] [address] 1626 19 Mar, 2012 [facility] [address] [facility] [id number], [place] [address] 69[address] 16 Mar, 2012 [facility] [place] [facility] [address] [facility] [id number], [place] [address]297 25 Mar, 2012 [facility] [place] [facility] [address] [id number], [place] [address] 4[address] 19 Sep2011 [facility] [place] [facility] [address] [facility] [id number] [address] 54[address] 13 Sep2011 [facility] [place] [facility] [address] [facility] [id number], [place] [address] 07 Sep, 2011 [facility] [place] [facility] [address] [id number] [place] [address] 5361 Jan, [facility] [place] [facility] [address] [id number] [place] [address] 6846 Jan, [facility] [place] [facility] [address] [id number] [place] [address]- 2546 Jan, [facility] [place] [facility] [address] [id number] [place] [address] 3426 Jan, [facility] [place] [facility] [address] [id number] [place] [address] 8217 Jan, [facility] [place] [facility] [address] [id number] [place] [address]- 7860 Jan, [facility] [place] [facility] [address] [id number] [place] [address] 5103 Jan, [facility] [place] [facility] [address] [id number] [place] [address]- 8182 Jan, [facility] [place] [facility] [address] [id number] [place] [address] 8778 Jan, [facility] [place] [facility] [address] [id number] [place] [address] 2161 Jan, [facility] [place] [facility] [address] [id number] [place] [address]- 2436 Jan, [facility] [place] [facility] [address] [id number] [place] [address] 0[address] Jan, [facility] [place] [facility] [address] [id number] [place] [address] 73[address] Jan, [facility] [place] [facility] [address] [id number] [place] [address]- 2166 Jan, [facility] [place] [facility] [address] [id number] [place] [address]- 2020 Jan, [facility] [place] [facility] [address] [id number] [place] [address] Jan, [facility] [place] [facility] [address] [id number] [place] [address]- 6940 Dec, [facility] [place] [facility] [address] [id number] [place] [address] 8416 Dec, [facility] [place] [facility] [address] [id number] [place] [address] 1353 Nov, [facility] [place] [facility] [address] [id number] [place] [address]- 7077 Nov, [facility] [place] [facility] [address] [id number] [place] [address]- 7865 October, [facility] [place] [facility] [address] [id number] [place] [address]- 9686 October, [facility] [place] [facility] [address] [id number] [place] [address]- 9376 October, [facility] [place] [facility] [address] [id number] [place] [address]- 8207 Sep, [facility] [place] [facility] [address] [id number] [place] [address]- 6305 Sep, [facility] [place] [facility] [address] [id number] [place] [address]- 7953 Aug, [facility] [place] [facility] [address] [id number] [place] [address]- 2036 Aug, [facility] [place] [facility] [address] [id number], [place] [address] Aug, [facility] [place] [facility] [address] [id number] [place] [address]- 6699 Aug, [facility] [place] [facility] [address] [id number] [place] [address]- 4938 Aug, [facility] [place] [facility] [address] [id number] [place] [address]- 6911 Aug, [facility] [place] [facility] [address] [id number] [place] [address]- 0476 07 Aug, 2011 [facility] [address] [id number] [place] [address] 0914 Jul, [facility] [address] [id number] [place] [address]- 7633 Jul, [facility] [address] [id number] [place] [address]- 6169 Jul, [facility] [address] [id number] [place] [address]- 8713 May, [facility] [address] [id number] [place] [address]- 3101 May, [facility] [address] [id number] [place] [address]- 6504 May, [facility] [address] [id number] [place] [address]- 8404 May, [facility] [address] [id number] [place] [address]- 8964 May, [facility] [address] [id number] [place] [address]- 2298 May, [facility] [address] [id number] [place] [address]- 8544 May, [facility] [facility] [address] [id number] [place] [address] 25 Mar, 2011 [facility] [address] [id number] [place] [address] Mar, [facility] [place] [facility] [address] [id number] [place] [address] 19 Mar, 2011 [facility] [place] [facility] [address] [id number] [place] [address] 15 Mar, 2011 [facility] [address] [id number] [place] [address] 27 Mar, 2010 [facility] [id number] [address] Mar, [facility] [address] [address] Jan, [facility] [address], [place] [address] May, [facility] [address] [address] May, [facility] [address] [address] May, [facility] [address] [address] May, [facility] [address] [address] May, [facility] [address] [address] May, [facility] [address], [place] [address] Mar, [facility] [address] [id number], [place] [address] Sep, IMMUNIZATIONS No Known Immunizations SOCIAL HISTORY Never Assessed REASON FOR VISIT Barb PLAN OF CARE VITAL SIGNS MEDICATIONS Unknown [...]
--- OUTSIDE RECORDS SUMMARY | 2018-01-25 15:51 | XMS REPORT ---
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 [address] [id number] [place] [address]- 0460 Mar, [facility] [place] [facility] [address] [id number] [place] [address]- 9614 Mar, [facility] [place] [facility] [address] [id number] [place] [address]- 1596 Mar, [facility] [place] [facility] [address] [id number] [place] [address]- 4181 Mar, [facility] [place] [facility] [address] [id number] [place] [address]- 4103 Mar, [facility] [place] [facility] [address] [id number] [place] [address]- 5951 Jan, [facility] [place] [facility] [address] [id number] [place] [address]- 6264 Jan, [facility] [place] [facility] [address] [id number] [place] [address]- 3184 Jan, [facility] [place] [facility] [address] [id number] [place] [address]- 5751 Jan, [facility] [place] [facility] [address] [id number] [place] [address]- 1667 Jan, [facility] [place] [facility] [address] [id number] [place] [address]- 7956 Jan, [facility] [place] [facility] [address] [id number] [place] [address]- 2080 Jan, [facility] [place] [facility] [address] [id number] [place] [address]- 3296 Jan, [facility] [place] [facility] [address] [id number] [place] [address]- 1756 Jan, [facility] [place] [facility] [address] [id number] [place] [address]- 2303 Dec, [facility] [place] [facility] [address] [id number] [place] [address]- 2044 Dec, [facility] [place] [facility] [address] [id number] [place] [address]- 6728 Dec, [facility] [place] [facility] [address] [id number] [place] [address]- 7481 Dec, [facility] [place] [facility] [address] [id number] [place] [address]- 1076 Dec, [facility] [place] [facility] [address] [id number] [place] [address]- 3255 Dec, [facility] [place] [facility] [address] [id number] [place] [address]- 2347 Dec, [facility] [place] [facility] [address] [id number] [place] [address]- 2124 Dec, [facility] [place] [facility] [address] [id number] [place] [address]- 5958 Dec, [facility] [place] [facility] [address] [id number] [place] [address]- 4819 October, [facility] [place] [facility] [address] [id number] [place] [address]- 0961 October, [facility] [place] [facility] [address] [id number] [place] [address]- 0980 Sep, [facility] [place] [facility] [address] [id number] [place] [address]- 9923 15 Sep, 2013 [facility] [place] [facility] [address] [id number] [place] [address]- 6804 Aug, [facility] [place] [facility] [address] [id number] [place] [address]- 3694 Aug, [facility] [place] [facility] [address] [id number] [place] [address]- 1295 Aug, [facility] [place] [facility] [address] [id number] [place] [address]- 5773 Aug, [facility] [place] [facility] [address] [id number] [place] [address]- 6066 Aug, [facility] [place] [facility] [address] [id number] [place] [address]- 0006 Aug, [facility] [place] [facility] [address] [id number] [place] [address]- 1979 Aug, [facility] [place] [facility] [address] [id number] [place] [address]- 6076 Aug, [facility] [place] [facility] [address] [id number] [place] [address]- 2944 Aug, [facility] [place] [facility] [address] [id number] [place] [address]- 5493 Aug, [facility] [place] [facility] [address] [id number] [place] [address]- 7732 Aug, [facility] [place] [facility] [address] [id number] [place] [address]- 7246 Jul, [facility] [place] [facility] [address] [id number] [place] [address]- 4456 Jul, [facility] [place] [facility] [address] [id number] [place] [address]- 9861 May, [facility] [place] [facility] [address] [id number] [place] [address]- 0038 May, [facility] [address] [id number] [place] [address]- 1542 May, [facility] [address] [id number] [place] [address]- 5022 May, [facility] [address] [id number] [place] [address]- 6683 May, [facility] [address] [id number] [place] [address]- 2935 May, [facility] [address] [id number] [place] [address]- 7993 May, [facility] [address] [id number] [place] [address]- 5726 May, [facility] [address] [id number] [place] [address]- 7044 May, [facility] [address] [id number] [place] [address]- 2253 May, [facility] [address] [id number] [place] [address]- 3422 May, [facility] [address] [id number] [place] [address]- 2429 May, [facility] [address] [id number] [place] [address]- 3111 May, [facility] [address] [id number] [place] [address]- 9784 May, [facility] [place] [facility] [address] [id number] [place] [address]- 4416 May, [facility] [address] [id number] [place] [address]- 5095 May, [facility] [address] [id number] [place] [address]- 9795 May, [facility] [place] [facility] [address] [id number] [place] [address]- 5080 18 May, 2013 [facility] [place] [facility] [address] [id number] [place] [address]- 9112 May, [facility] [place] [facility] [address] [id number] [place] [address]- 8142 16 May, 2013 [facility] [place] [facility] [address] [id number] [place] [address]- 9168 May, [facility] [place] [facility] [address] [id number] [place] [address]- 7000 May, [facility] [place] [facility] [address] [id number] [place] [address]- 5735 May, [facility] [place] [facility] [address] [id number] [place] [address]- 4991 May, [facility] [place] [facility] [address] [id number] [address]- 9081 May, [facility] [place] [facility] [address] [id number] [address]- 9260 May, [facility] [place] [facility] [address] [id number] [place] [address]- 1340 May, [facility] [place] [facility] [address] [id number] [place] [address]- 8571 May, [facility] [place] [facility] [address] [id number] [place] [address]- 9286 May, [facility] [place] [facility] [address] [id number] [place] [address]- 0973 May, [facility] [place] [facility] [address] [id number] [place] [address]- 9222 Mar, [facility] [place] [facility] [address] [id number] [place] [address]- 5184 Mar, [facility] [place] [facility] [address] [id number] [place] [address]- 7895 31 Mar, 2012 [facility] [place] [facility] [address] [id number] [place] [address]- 0757 31 Mar, 2012 [facility] [place] [facility] [address] [id number] [place] [address]- 5992 30 Mar, 2012 [facility] [place] [facility] [address] [id number] [place] [address]- 1335 29 Mar, 2012 [facility] [place] [facility] [address] [id number] [place] [address]- 5792 29 Mar, 2012 [facility] [place] [facility] [address] [id number] [place] [address]- 2276 Mar, 2012 [facility] [place] [facility] [address] [id number] [place] [address]- 4291 Mar, 2012 [facility] [place] [facility] [address] [id number] [place] [address]- 0254 Mar, [facility] [place] [facility] [address] [id number] [place] [address]- 9498 28 Mar, 2013 [facility] [place] [facility] [address] [id number] [place] [address]- 3235 24 Mar, 2013 [facility] [place] [facility] [address] [id number] [place] [address]- 9557 24 Mar, 2013 [facility] [place] [facility] [address] [id number] [place] [address]- 2399 23 Mar, 2013 [facility] [place] [facility] [address] [id number] [place] [address]- 3912 22 Mar, 2012 [facility] [place] [facility] [address] [id number] [place] [address]- 1811 Mar, 2012 [facility] [place] [facility] [address] [id number] [place] [address]- 2163 Mar, [facility] [place] [facility] [address] [id number] [place] [address]- 7994 18 Mar, 2012 [facility] [place] [facility] [address] [id number] [place] [address]- 9178 18 Mar, 2013 [facility] [place] [facility] [address] [id number] [place] [address]- 9846 18 Mar, 2013 [facility] [place] [facility] [address] [id number] [place] [address]- 4251 18 Mar, 2013 [facility] [place] [facility] [address] [id number] [place] [address]- 9930 14 Mar, 2013 [facility] [place] [facility] [address] [id number] [place] [address]- 0835 14 Mar, 2013 [facility] [place] [facility] [address] [id number] [place] [address] 10 Mar, 2013 [facility] [place] [facility] [address] [id number] [place] [address] 18 Mar, 2013 [facility] [place] [facility] [address] [id number] [place] [address] 12 Mar, 2013 [facility] [place] [facility] [address] [id number] [place] [address] 3[address] 11 Mar, 2013 [facility] [place] [facility] [address] [id number] [place] [address] Jan, [facility] [place] [facility] [address] [id number] [place] [address] October, [facility] [place] [facility] [address] [id number] [place] [address] Sep, [facility] [place] [facility] [address] [id number] [place] [address] 15 Sep, 2012 [facility] [place] [facility] [address] [id number] [place] [address] Aug, [facility] [place] [facility] [address] [id number] [place] [address] 06 Aug, 2012 [facility] [place] [facility] [address] [id number] [place] [address]- 5703 04 Aug, 2012 [facility] [place] [facility] [address] [id number] [place] [address] 17 Jul, 2012 [facility] [place] [facility] [address] [id number] [place] [address] May, [facility] [place] [facility] [address] [facility] [id number] [place] [address] 9186 19 May, 2012 [facility] [place] [facility] [address] [id number] [place] [address] 1182 18 May, 2012 [facility] [place] [facility] [address] [id number] [place] [address] 7644 18 May, 2012 [facility] [place] [facility] [address] [id number] [place] [address] 5562 19 Mar, 2012 [facility] [place] [facility] [address] [id number] [place] [address] 2188 19 Mar, 2012 [facility] [place] [facility] [address] [id number] [place] [address]- 4774 16 Mar, 2012 [facility] [place] [facility] [address] [id number] [place] [address] 7957 25 Mar, 2012 [facility] [place] [facility] [address] [id number] [place] [address] 1368 19 Mar, 2012 [facility] [place] [facility] [address] [id number] [place] [address] 13 Mar, 2012 [facility] [place] [facility] [address] [id number] [place] [address] 07 Mar, 2012 [facility] [place] [facility] [address] [id number] [place] [address] 3[address] 30 Jan, 2012 [facility] [place] [facility] [address] [id number] [place] [address] 8013 28 Jan, 2012 [facility] [place] [facility] [address] [id number] [place] [address] 39[address] Jan, [facility] [place] [facility] [address] [id number] [place] [address] 4[address] Jan, [facility] [place] [facility] [address] [id number] [place] [address] Jan, 2011 [facility] [place] [facility] [address] [id number] [place] [address] 20[address] Jan, 2011 [facility] [place] [facility] [address] [id number] [place] [address] 9937 Jan, 2011 [facility] [place] [facility] [address] [id number] [place] [address] 2000 Jan, 2011 [facility] [place] [facility] [address] [id number] [place] [address] 5487 Jan, 2011 [facility] [place] [facility] [address] [id number] [place] [address]- 1536 Jan, [facility] [place] [facility] [address] [id number] [place] [address] 295[address] Jan, [facility] [place] [facility] [address] [id number] [place] [address] 9816 Jan, [facility] [place] [facility] [address] [id number] [place] [address]- [address] Jan, [facility] [place] [facility] [address] [id number] [place] [address] 2876 Jan, [facility] [place] [facility] [address] [id number] [place] [address] 30[address] Jan, [facility] [place] [facility] [address] [id number] [place] [address] 275[address] Jan, [facility] [place] [facility] [address] [id number] [place] [address] 9535 Dec, [facility] [place] [facility] [address] [id number] [place] [address]- 7786 Dec, [facility] [place] [facility] [address] [id number] [place] [address]- [address] Nov, [facility] [address] [id number] [place] [address] 08 Nov, 2011 [facility] [place] [facility] [address] [id number] [place] [address]286 October, [facility] [place] [facility] [address] [id number] [place] [address]- 0426 October, [facility] [place] [facility] [address] [id number] [place] [address]- 9416 October, [facility] [place] [facility] [address] [id number] [place] [address] 3792 Sep, [facility] [place] [facility] [address] [id number] [place] [address]- 9086 Sep, [facility] [place] [facility] [address] [id number] [place] [address]- 3966 30 Aug, 2011 [facility] [place] [facility] [address] [id number] [place] [address]- 1438 Aug, [facility] [place] [facility] [address] [id number] [place] [address] 8697 Aug, [facility] [place] [facility] [address] [id number] [place] [address] 5111 Aug, [facility] [place] [facility] [address] [id number] [place] [address]- 8176 Aug, [facility] [place] [facility] [address] [id number] [place] [address]- 6736 14 Aug, 2011 [facility] [place] [facility] [address] [id number] [place] [address]- 0796 Aug, [facility] [place] [facility] [address] [id number] [place] [address] Jul, [facility] [place] [facility] [address] [id number] [place] [address] Jul, [facility] [place] [facility] [address] [id number] [place] [address] Jul, [facility] [address] [id number] [place] [address] May, [facility] [place] [facility] [address] [id number] [place] May, [facility] [place] [facility] [address] [id number] [place] [address] May, [facility] [place] [facility] [address] [id number] [place] [address] May, [facility] [place] [facility] [address] [id number] [place] [address], [place] [address] May, [facility] [place] [facility] [address] [id number] [place] [address] May, [facility] [place] [facility] [address] [id number] [place] [address] May, [facility] [place] [facility] [address] [id number] [place] [address] Mar, [facility] [place] [facility] [address] [id number] [place] [address] Mar, [facility] [place] [facility] [address] [id number] [place] [address] Mar, [facility] [place] [facility] [address] [id number] [place] [address] 15 Mar, 2011 [facility] [place] [facility] [address] [id number] [address] 27 Mar, 2010 [facility] [place] [facility] [address] [id number] [place] [address] 13 Mar, 2010 [facility] [place] [facility] [address] [id number] [place] [address] 10 Jan, 2010 [facility] [place] [facility] [address] [id number] [place] [address] 31 May, 2009 [facility] [place] [facility] [address] [id number] [address] May, [facility] [address] [id number] [address] May, [facility] [id number] [address] May, [facility] [address] [id number] [address] May, [facility] [address] [id number] [address] May, [facility] [address] [id number] [address] Mar, [facility] [id number] [address] Sep, IMMUNIZATIONS No Known Immunizations SOCIAL HISTORY Never Assessed REASON FOR VISIT Requests return call/[facility] PLAN OF CARE VITAL SIGNS MEDICATIONS Medication Instructions Dosage Frequency Start Date End Date Duration Status Diflucan 150 MG Orally one time. May repeat in 3 days if symptoms persist. 1 tablet Mar, 4 days Active RESULTS No Results PROCEDURES [...]
--- OUTSIDE RECORDS SUMMARY | 2018-01-25 15:52 | XMS REPORT ---
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 [id number] [place] [address]- 2819 Mar, 2013 [facility] [place] [facility] [address] [id number] [place] [address]- 1532 Mar, [facility] [place] [facility] [address] [id number] [place] [address]- 4008 Jan, [facility] [place] [facility] [address] [id number] [place] [address]- 7962 Jan, [facility] [place] [facility] [address] [id number] [place] [address]- 6282 Jan, [facility] [place] [facility] [address] [id number] [place] [address]- 6554 Jan, [facility] [place] [facility] [address] [id number] [place] [address]- 1352 Jan, [facility] [place] [facility] [address] [id number] [place] [address]- 1819 Jan, [facility] [place] [facility] [address] [id number] [place] [address]- 6549 Jan, [facility] [place] [facility] [address] [id number] [place] [address]- 6597 Jan, [facility] [place] [facility] [address] [id number] [place] [address]- 2283 Jan, [facility] [place] [facility] [address] [id number] [place] [address]- 1416 Dec, [facility] [place] [facility] [address] [id number] [place] [address]- 5323 Dec, [facility] [place] [facility] [address] [id number] [place] [address]- 9198 Dec, [facility] [place] [facility] [address] [id number] [place] [address]- 8906 Dec, [facility] [place] [facility] [address] [id number] [place] [address]- 3379 Dec, [facility] [place] [facility] [address] [id number] [place] [address]- 0251 Dec, [facility] [place] [facility] [address] [id number] [place] [address]- 0707 Dec, [facility] [place] [facility] [address] [id number] [place] [address]- 3252 Dec, [facility] [place] [facility] [address] [id number] [place] [address]- 6364 Dec, [facility] [place] [facility] [address] [id number] [place] [address]- 5596 October, [facility] [place] [facility] [address] [id number] [place] [address]- 8536 October, [facility] [place] [facility] [address] [facility] [id number] [place] [address]- 8703 Sep, [facility] [place] [facility] [address] [id number] [place] [address]- 9360 Sep, [facility] [place] [facility] [address] [id number] [place] [address]- 3347 Aug, [facility] [place] [facility] [address] [facility] [id number] [place] [address]- 0534 Aug, [facility] [place] [facility] [address] [facility] [id number] [place] [address]- 6269 Aug, [facility] [place] [facility] [address] [facility] [id number] [place] [address]- 2564 Aug, [facility] [place] [facility] [address] [facility] [id number] [place] [address]- 9687 Aug, [facility] [place] [facility] [address] [facility] [id number] [place] [address]- 9151 Aug, [facility] [place] [facility] [address] [facility] [id number] [place] [address]- 1393 14 Aug, 2013 [facility] [place] [facility] [address] [facility] [id number], [place] [address]- 5751 Aug, [facility] [place] [facility] [address] [facility] [id number] [place] [address]- 9807 07 Aug, 2013 [facility] [place] [facility] [address] [facility] [id number] [place] [address]- 8349 Aug, [facility] [place] [facility] [address] [facility] [id number] [place] [address]- 3782 Aug, [facility] [place] [facility] [address] [id number] [place] [address]- 7474 Jul, [facility] [place] [facility] [address] [id number] [place] [address]- 9500 Jul, [facility] [place] [facility] [address] [id number] [place] [address]- 6096 May, [facility] [place] [facility] [address] [id number] [place] [address]- 6601 May, [facility] [place] [facility] [address] [id number] [place] [address] 2544 May, [facility] [place] [facility] [address] [id number] [place] [address]- 0718 May, [facility] [place] [facility] [address] [id number] [place] [address]- 3694 May, [facility] [place] [facility] [address] [id number] [place] [address]- 6299 May, [facility] [place] [facility] [address] [id number] [place] [address]- 8549 May, [facility] [place] [facility] [address] [id number] [place] [address]- 2783 May, [facility] [place] [facility] [address] [id number] [place] [address]- 8537 May, [facility] [place] [facility] [address] [id number] [place] [address]- 5549 May, [facility] [place] [facility] [address] [id number] [place] [address]- 4290 May, [facility] [place] [facility] [address] [id number] [place] [address] 2541 May, [facility] [place] [facility] [address] [id number] [place] [address]- 2548 May, [facility] [place] [facility] [address] [id number] [place] [address]- 9121 May, [facility] [place] [facility] [address] [id number] [place] [address]- 6226 May, [facility] [place] [facility] [address] [id number], [place] [address]- 9737 May, [facility] [place] [facility] [address] [facility] [id number] [place] [address]- 5944 May, [facility] [place] [facility] [address] [id number], [place] [address]- 6909 May, [facility] [place] [facility] [address] [id number] [place] [address]- 5820 May, [facility] [place] [facility] [address] [id number], [place] [address]- 4633 May, [facility] [place] [facility] [address] [id number], [place] [address]- 0002 May, [facility] [place] [facility] [address] [id number], [place] [address]- 5496 May, [facility] [place] [facility] [address] [id number], [place] [address]- 4949 May, [facility] [place] [facility] [address] [id number], [place] [address]- 7133 May, [facility] [place] [facility] [address] [id number], [place] [address]- 6728 May, [facility] [place] [facility] [address] [id number], [place] [address]- 0281 May, [facility] [place] [facility] [address] [id number], [place] [address]- 9582 May, [facility] [place] [facility] [address] [id number], [place] [address]- 8702 May, [facility] [place] [facility] [address] [id number], [place] [address]- 7334 May, [facility] [place] [facility] [address] [id number] [place] [address]- 1183 May, [facility] [place] [facility] [address] [id number] [place] [address]- 7915 Mar, 2012 [facility] [place] [facility] [address] [id number] [place] [address]- 9065 Mar, 2012 [facility] [place] [facility] [address] [id number] [place] [address]- 2005 Mar, 2012 [facility] [place] [facility] [address] [id number] [place] [address]- 2959 Mar, 2012 [facility] [place] [facility] [address] [id number] [place] [address]- 8947 30 Mar, 2012 [facility] [place] [facility] [address] [id number] [place] [address]- 1143 Mar, 2012 [facility] [place] [facility] [address] [id number] [place] [address]- 3255 Mar, 2012 [facility] [place] [facility] [address] [id number] [place] [address]- 4866 Mar, [facility] [place] [facility] [address] [id number] [place] [address]- 5610 Mar, [facility] [place] [facility] [address] [id number] [place] [address]- 1495 Mar, [facility] [place] [facility] [address] [id number] [place] [address]- 4685 Mar, [facility] [place] [facility] [address] [id number] [place] [address]- 8782 Mar, [facility] [place] [facility] [address] [id number] [place] [address]- 9882 24 Mar, 2013 [facility] [place] [facility] [address] [id number] [place] [address] Mar, 2012 [facility] [place] [facility] [address] [id number] [place] [address] Mar, [facility] [place] [facility] [address] [id number] [place] [address] Mar, [facility] [place] [facility] [address] [id number] [place] [address] 21 Mar, 2013 [facility] [place] [facility] [address] [id number] [place] [address] 18 Mar, 2013 [facility] [place] [facility] [address] [id number] [place] [address] 18 Mar, 2013 [facility] [address] [id number] [place] [address] 18 Mar, 2013 [facility] [place] [facility] [address] [id number] [place] [address] 1494 18 Mar, 2013 [facility] [address] [id number] [place] [address] 244[address] 14 Mar, 2013 [facility] [place] [facility] [address] [id number] [place] [address]- [address] 14 Mar, 2013 [facility] [place] [facility] [address] [id number] [place] [address] 40[address] 10 Mar, 2013 [facility] [place] [facility] [address] [id number] [place] [address] 18 Mar, 2013 [facility] [place] [facility] [address] [id number] [place] [address] 12 Mar, 2013 [facility] [place] [facility] [address] [id number], [place] [address] Mar, [facility] [place] [facility] [address] [id number] [place] [address] Jan, [facility] [place] [facility] [address] [id number] [place] [address] October, [facility] [place] [facility] [address] [id number] [place] [address] Sep, [facility] [place] [facility] [address] [id number], [place] [address] 15 Sep, 2012 [facility] [address] [id number] [place] [address] 07 Aug, 2012 [facility] [address] [facility] [id number], [place] [address] 06 Aug, 2012 [facility] [address] [facility] [id number] [place] [address] 04 Aug, 2012 [facility] [address] [facility] [id number], [place] [address] 17 Jul, 2012 [facility] [address] [facility] [id number] [place] [address] 19 May, 2012 [facility] [address] [facility] [id number], [place] [address] 19 May, 2012 [facility] [address] [facility] [id number], [place] [address] 18 May, 2012 [facility] [address] [facility] [id number], [place] [address] 18 May, 2012 [facility] [address] [facility] [id number], [place] [address] 19 Mar, 2012 [facility] [address] [facility] [id number], [place] [address] 19 Mar, 2012 [facility] [address] [facility] [id number], [place] [address] 16 Mar, 2012 [facility] [place] [facility] [address] [facility] [id number], [place] [address] 98[address] 25 Mar, 2012 [facility] [place] [facility] [address] [id number], [place] [address] 19 Sep2011 [facility] [place] [facility] [address] [facility] [id number], [place] [address] 13 Sep2011 [facility] [place] [facility] [address] [facility] [id number], [place] [address] 07 Sep, 2011 [facility] [place] [facility] [address] [id number] [place] [address]- [address] Jan, [facility] [place] [facility] [address] [id number] [place] [address] Jan, [facility] [place] [facility] [address] [id number] [place] [address]- [address] Jan, [facility] [place] [facility] [address] [id number] [place] [address]- [address] Jan, [facility] [place] [facility] [address] [id number] [place] [address]- 18[address] Jan, [facility] [place] [facility] [address] [id number] [place] [address]- 86[address] Jan, [facility] [place] [facility] [address] [id number] [place] [address]- [address] Jan, [facility] [place] [facility] [address] [id number] [place] [address]- [address] Jan, [facility] [place] [facility] [address] [id number] [place] [address] Jan, [facility] [place] [facility] [address] [id number] [place] [address]- 1027 Jan, [facility] [place] [facility] [address] [id number] [place] [address] Jan, [facility] [place] [facility] [address] [id number] [place] [address]- [address] Jan, [facility] [place] [facility] [address] [id number] [place] [address]- [address]562 Jan, [facility] [place] [facility] [address] [id number] [place] [address]- 1776 Jan, [facility] [place] [facility] [address] [id number] [place] [address]- [address] Jan, [facility] [place] [facility] [address] [id number] [place] [address] Jan, [facility] [place] [facility] [address] [id number] [place] [address]- [address] Dec, [facility] [place] [facility] [address] [id number] [place] [address] Dec, [facility] [place] [facility] [address] [id number] [place] [address] Nov, [facility] [place] [facility] [address] [id number] [place] [address]- [address] Nov, [facility] [place] [facility] [address] [id number] [place] [address]- [address] October, [facility] [place] [facility] [address] [id number] [place] [address]- [address] October, [facility] [place] [facility] [address] [id number] [place] [address]- 12[address] October, [facility] [place] [facility] [address] [id number] [place] [address]- [address] Sep, [facility] [place] [facility] [address] [id number] [place] [address]- [address] Sep, [facility] [place] [facility] [address] [id number] [place] [address]- [address] Aug, [facility] [place] [facility] [address] [id number] [place] [address]- 135[address] Aug, [facility] [place] [facility] [address] [id number] [address] Aug, [facility] [place] [facility] [address] [id number] [place] [address] Aug, [facility] [place] [facility] [address] [id number] [place] [address] Aug, [facility] [place] [facility] [address] [id number] [place] [address] Aug, [facility] [place] [facility] [address] [id number] [place] [address] 07 Aug, 2011 [facility] [address] [id number] [place] [address] Jul, [facility] [address] [id number] [place] [address] Jul, [facility] [address] [id number] [place] [address] Jul, [facility] [address] [id number] [place] [address] May, [facility] [address] [id number] [place] [address] May, [facility] [address] [id number] [place] [address] May, [facility] [address] [id number] [place] [address] May, [facility] [address] [id number] [place] [address] May, [facility] [address] [id number] [place] [address] May, [facility] [address] [id number] [place] [address] May, [facility] [address] [id number] [place] [address] 25 Mar, 2011 [facility] [address] [id number] [place] [address] Mar, [facility] [place] [facility] [address] [id number] [place] [address] 19 Mar, 2011 [facility] [place] [facility] [address] [id number] [place] [address] 15 Mar, 2011 [facility] [address] [id number] [place] [address] 27 Mar, 2010 [facility] [address] [id number] [address] Mar, [facility] [id number] [address] Jan, [facility] [id number] [address] May, [facility] [id number], [place] [address] May, [facility] [id number] [address] May, [facility] [id number] [address] May, [facility] [id number] [address] May, [facility] [id number], [place] [address] May, [facility] [id number], [place] [address] Mar, [facility] [address] [id number], [place] [address] Sep, IMMUNIZATIONS No Known Immunizations SOCIAL HISTORY Never Assessed REASON FOR VISIT letter PLAN OF CARE VITAL SIGNS MEDICATIONS Unknown [...]
--- OUTSIDE RECORDS SUMMARY | 2018-01-25 15:53 | XMS REPORT ---
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 [place] [facility] [address] [id number] [place] [address]- 3784 Mar, [facility] [place] [facility] [address] [id number] [place] [address]- 7744 Mar, [facility] [place] [facility] [address] [id number] [place] 5439 Mar, [facility] [place] [facility] [address] [id number] [place] [address]- 2741 Mar, [facility] [place] [facility] [address] [id number] [place] [address]- 6158 Mar, [facility] [place] [facility] [address] [id number] [place] [address]- 0347 Mar, [facility] [place] [facility] [address] [id number] [place] [address]- 6913 Jan, [facility] [place] [facility] [address] [id number] [place] [address]- 8672 Jan, [facility] [place] [facility] [address] [id number] [place] [address]- 6660 Jan, [facility] [place] [facility] [address] [id number] [place] [address]- 1019 Jan, [facility] [place] [facility] [address] [id number] [place] [address]- 4324 Jan, [facility] [place] [facility] [address] [id number] [place] [address]- 2462 Jan, [facility] [place] [facility] [address] [id number] [place] [address]- 9831 Jan, [facility] [place] [facility] [address] [id number] [place] [address]- 3649 Jan, [facility] [place] [facility] [address] [id number] [place] [address]- 9505 Jan, [facility] [place] [facility] [address] [id number] [place] [address]- 0432 Dec, [facility] [place] [facility] [address] [id number] [place] [address]- 9169 Dec, [facility] [place] [facility] [address] [id number] [place] [address]- 9911 Dec, [facility] [place] [facility] [address] [id number] [place] [address]- 5233 Dec, [facility] [place] [facility] [address] [id number] [place] [address]- 7407 Dec, [facility] [place] [facility] [address] [id number] [place] [address]- 5692 Dec, [facility] [place] [facility] [address] [id number] [place] [address]- 4089 Dec, [facility] [place] [facility] [address] [id number] [place] [address]- 3233 Dec, [facility] [place] [facility] [address] [id number] [place] [address]- 7525 Dec, [facility] [place] [facility] [address] [id number] [place] [address]- 6523 October, [facility] [place] [facility] [address] [id number] [place] [address]- 5637 October, [facility] [place] [facility] [address] [id number] [place] [address]- 8318 Sep, [facility] [place] [facility] [address] [id number] [place] [address]- 8288 Sep, [facility] [place] [facility] [address] [id number] [place] [address]- 2137 Aug, [facility] [place] [facility] [address] [id number] [place] [address]- 8511 Aug, [facility] [place] [facility] [address] [id number] [place] [address]- 0282 Aug, [facility] [place] [facility] [address] [id number] [place] [address]- 2732 Aug, [facility] [place] [facility] [address] [id number] [place] 5562 Aug, [facility] [place] [facility] [address] [id number] [place] [address]- 1762 Aug, [facility] [place] [facility] [address] [id number] [place] [address]- 7045 14 Aug, 2013 [facility] [address] [id number] [place] [address]- 5453 Aug, [facility] [address] [id number] [place] 6889 Aug, [facility] [address] [id number] [place] [address]- 4536 Aug, [facility] [place] [facility] [address] [id number] [place] [address]- 0118 Aug, [facility] [address] [id number] [place] [address]- 2721 Jul, [facility] [address] [id number] [place] [address]- 6232 Jul, [facility] [address] [facility] [id number] [place] [address]- 8058 May, [facility] [address] [id number] [place] [address]- 9323 May, [facility] [address] [facility] [id number] [place] [address]- 7542 May, [facility] [place] [facility] [address] [facility] [id number] [place] [address]- 3376 May, [facility] [address] [facility] [id number] [place] [address]- 6853 May, [facility] [place] [facility] [address] [id number] [place] [address]- 5318 May, [facility] [place] [facility] [address] [id number] [place] [address]- 3539 May, [facility] [place] [facility] [address] [id number] [place] [address]- 6348 May, [facility] [place] [facility] [address] [facility] [id number] [place] [address]- 3715 May, [facility] [place] [facility] [address] [id number] [place] [address]- 5477 May, [facility] [place] [facility] [address] [id number] [place] [address]- 4717 May, [facility] [place] [facility] [address] [id number] [place] [address]- 3019 May, [facility] [place] [facility] [address] [id number] [place] [address]- 7411 May, [facility] [place] [facility] [address] [id number] [place] [address]- 0639 May, [facility] [place] [facility] [address] [id number] [place] [address]- 1523 May, [facility] [place] [facility] [address] [id number] [place] [address]- 4720 May, [facility] [place] [facility] [address] [id number] [place] [address]- 3029 18 May, 2013 [facility] [place] [facility] [address] [id number] [place] [address]- 0148 18 May, 2013 [facility] [place] [facility] [address] [id number] [place] [address]- 1697 16 May, 2013 [facility] [place] [facility] [address] [id number] [place] [address]- 8329 16 May, 2013 [facility] [place] [facility] [address] [id number] [place] [address]- 6620 11 May, 2013 [facility] [place] [facility] [address] [id number] [place] [address]- 4781 11 May, 2013 [facility] [place] [facility] [address] [id number] [place] [address]- 4370 May, [facility] [place] [facility] [address] [id number] [place] [address]- 6717 May, [facility] [place] [facility] [address] [id number] [place] [address]- 4065 May, [facility] [place] [facility] [address] [id number] [place] [address]- 8572 May, [facility] [place] [facility] [address] [id number] [place] [address]- 2874 May, [facility] [place] [facility] [address] [id number] [place] [address] May, [facility] [place] [facility] [address] [id number] [place] [address] May, [facility] [place] [facility] [address] [id number] [place] [address] May, [facility] [place] [facility] [address] [id number] [place] [address] Mar, [facility] [place] [facility] [address] [id number] [place] [address] Mar, [facility] [place] [facility] [address] [id number] [place] [address] Mar, [facility] [place] [facility] [address] [id number] [place] [address] Mar, [facility] [place] [facility] [address] [id number] [place] [address] 30 Mar, 2013 [facility] [place] [facility] [address] [id number] [place] [address] Mar, [facility] [place] [facility] [address] [id number] [place] [address] 29 Mar, 2013 [facility] [place] [facility] [address] [id number] [place] [address] Mar, [facility] [place] [facility] [address] [id number] [place] [address] Mar, [facility] [place] [facility] [address] [id number] [place] [address] Mar, [facility] [place] [facility] [address] [id number] [place] [address] 28 Mar, 2012 [facility] [place] [facility] [address] [id number] [place] [address] 65[address] 24 Mar, 2012 [facility] [place] [facility] [address] [id number] [place] [address]- [address] 24 Mar, 2013 [facility] [place] [facility] [address] [id number] [place] [address]- 1563 23 Mar, 2012 [facility] [place] [facility] [address] [id number] [place] [address] 5941 22 Mar, 2012 [facility] [place] [facility] [address] [id number] [place] [address] 21 Mar, 2012 [facility] [place] [facility] [address] [id number] [place] [address]- [address] 21 Mar, 2013 [facility] [place] [facility] [address] [id number] [place] [address] 1052 18 Mar, 2012 [facility] [place] [facility] [address] [id number] [place] [address]- 1845 18 Mar, 2013 [facility] [place] [facility] [address] [id number] [place] [address]- 9[address] 18 Mar, 2012 [facility] [place] [facility] [address] [id number] [place] [address]- 3575 18 Mar, 2013 [facility] [place] [facility] [address] [id number] [place] [address]- 7315 14 Mar, 2012 [facility] [place] [facility] [address] [id number] [place] [address] 14 Mar, 2012 [facility] [place] [facility] [address] [id number] [place] [address]- 7096 10 Mar, 2012 [facility] [place] [facility] [address] [id number] [place] [address]- [address] 18 Mar, 2012 [facility] [place] [facility] [address] [id number] [place] [address] 12 Mar, 2013 [facility] [place] [facility] [address] [id number] [place] [address] Mar, [facility] [address] [id number] [place] [address] Jan, [facility] [place] [facility] [address] [id number] [place] [address] October, [facility] [place] [facility] [address] [id number] [place] [address] Sep, [facility] [address] [id number] [place] [address] Sep, [facility] [address] [id number] [place] [address] Aug, [facility] [address] [facility] [id number] [place] [address] Aug, [facility] [address] [id number] [place] [address] 265[address] Aug, [facility] [address] [id number] [place] [address] Jul, [facility] [address] [facility] [id number] [place] [address] May, [facility] [address] [id number] [place] [address] May, [facility] [place] [facility] [address] [id number] [place] [address] May, [facility] [place] [facility] [address] [id number] [place] [address] 47[address] May, [facility] [place] [facility] [address] [id number] [place] [address] 1665 Mar, [facility] [place] [facility] [address] [id number] [place] [address]- 76[address] Mar, [facility] [place] [facility] [address] [id number] [place] [address]- [address] 16 Mar, 2012 [facility] [place] [facility] [address] [id number] [place] [address]- 3793 25 Mar, 2012 [facility] [place] [facility] [address] [id number] [place] [address]- 8986 19 Mar, 2012 [facility] [place] [facility] [address] [id number] [place] [address]- 9656 13 Mar, 2012 [facility] [place] [facility] [address] [id number] [place] [address]- 5896 07 Mar, 2012 [facility] [place] [facility] [address] [id number] [place] [address]- 0603 30 Jan, 2012 [facility] [place] [facility] [address] [id number] [place] [address]- [address] 28 Jan, 2012 [facility] [place] [facility] [address] [id number] [place] [address]- [address] Jan, [facility] [place] [facility] [address] [id number] [place] [address]- 8239 14 Jan, 2012 [facility] [place] [facility] [address] [id number] [place] [address] Jan, [facility] [place] [facility] [address] [id number] [place] [address] 9[address] Jan, [facility] [place] [facility] [address] [id number] [place] [address]- 118[address] Jan, [facility] [place] [facility] [address] [id number] [place] [address]- 9789 Jan, [facility] [place] [facility] [address] [id number] [place] [address]- 8361 Jan, [facility] [place] [facility] [address] [id number] [place] [address]- 378[address] Jan, [facility] [place] [facility] [address] [id number] [place] [address]- 5[address] Jan, [facility] [place] [facility] [address] [id number] [place] [address]- 2546 Jan, [facility] [place] [facility] [address] [id number] [place] [address]- 4238 Jan, [facility] [place] [facility] [address] [id number] [place] [address]- 2546 Jan, [facility] [place] [facility] [address] [id number] [place] [address]- 2096 Jan, [facility] [place] [facility] [address] [id number] [place] [address]- 2546 Jan, [facility] [place] [facility] [address] [id number] [place] [address]- 7827 Dec, [facility] [place] [facility] [address] [id number] [place] [address] 2296 Dec, [facility] [place] [facility] [address] [id number] [place] [address] Nov, [facility] [place] [facility] [address] [id number] [place] [address] Nov, [facility] [place] [facility] [address] [id number] [place] [address] October, [facility] [place] [facility] [address] [id number] [place] [address] October, [facility] [place] [facility] [address] [id number] [place] [address] October, [facility] [place] [facility] [address] [id number] [place] [address] Sep, [facility] [place] [facility] [address] [id number] [place] [address] Sep, [facility] [place] [facility] [address] [id number] [place] [address] Aug, [facility] [place] [facility] [address] [id number] [place] [address] 28 Aug, 2011 [facility] [place] [facility] [address] [id number] [place] [address] 26 Aug, 2011 [facility] [place] [facility] [address] [id number] [place] [address] 19 Aug, 2011 [facility] [place] [facility] [address] [id number] [place] [address] 12 Aug, 2011 [facility] [place] [facility] [address] [id number] [place] [address] 14 Aug, 2011 [facility] [place] [facility] [address] [id number] [place] [address] 07 Aug, 2011 [facility] [place] [facility] [address] [id number] [place] [address] 27 Jul, 2011 [facility] [place] [facility] [address] [id number] [place] [address] Jul, [facility] [place] [facility] [address] [id number] [place] [address] Jul, [facility] [place] [facility] [address] [id number] [place] [address] May, [facility] [place] [facility] [address] [id number] [place] [address] 28 May, 2011 [facility] [place] [facility] [address] [id number] [place] [address] 21 May, 2011 [facility] [place] [facility] [address] [id number] [place] [address] 19 May, 2011 [facility] [place] [facility] [address] [id number] [place] [address] 13 May, 2011 [facility] [place] [facility] [address] [id number] [place] [address] 13 May, 2011 [facility] [place] [facility] [address] [id number] [place] [address] 22 May, 2011 [facility] [place] [facility] [id number] [address] Mar, [facility] [id number] [address] Mar, [facility] [id number] [address] Mar, [facility] [id number] [address] 15 Mar, 2011 [facility] [address] [facility] [id number] [address] Mar, [facility] [id number] [place] [address] Mar, [facility] [id number] [address] Jan, [facility] [id number] [address] [address] May, [facility] [id number] [address] [address] 16 May, 2009 [facility] [id number] [address] May, [facility] [id number] [address] May, [facility] [id number] [address] [address] May, [facility] [id number] [address] May, [facility] [id number] [address] Mar, [facility] [id number] [address] Sep, IMMUNIZATIONS Vaccine Route Administration Date Status DEPO PROVERA (150 MG/ML) IM Intramuscular Jun 17, 2017 Administered SOCIAL HISTORY Never Assessed REASON FOR VISIT Pain management (chronic)-Edwin WATTERS PLAN OF CARE Activity Details Follow Up 3 Months Reason:pain mgmt VITAL SIGNS Height 64 in 2017-06-17 Weight 133.0 lbs 2017-06-17 Temperature 98.3 degrees Fahrenheit 2017-06-17 Heart Rate 78 bpm 2017-06-17 Respiratory Rate 18 2017-06-17 BMI 22.83 kg/m2 2017-06-17 Blood pressure systolic 118 mmHg 2017-06-17 Blood pressure diastolic 66 mmHg 2017-06-17 MEDICATIONS Medication Instructions Dosage Frequency Start Date End Date Duration Status Albuterol Sulfate (2.5 MG/3ML) 0.083% Inhalation Three times a day 3 ml 8h Aug, Active EpiPen 2-David 0.3 MG/0.3ML Injection repeat in 20 minutes Inject into thigh at first signs of anaphylaxis October, 30 days Active Singulair 10 MG Orally Once a day 1 tablet in the evening 24h Active Omeprazole 40 MG Orally Once a day 1 capsule 24h 90 days Active Topamax 25 MG Orally Twice a day 3 tablet 12h Nov, 30 days Active Hydrocodone-Acetaminophen 7.5-325 MG Orally twice a day 1 tablet as needed 12h May, 28 days Active Benztropine Mesylate 1 MG TAKE ONE TABLET BY MOUTH THREE TIMES DAILY 90 Active Flonase 50 MCG/ACT Nasally twice a day 1 spray in each nostril 12h Jan, 30 day(s) Active Toviaz 4 MG Orally Once a day 1 tablet 24h October, 90 days Active Advair Diskus 250-50 MCG/DOSE Inhalation Twice a day 1 puff 12h Sep, Active Lyrica 25 MG Orally Twice a day 1 capsule 12h Active Lexapro 20 mg Orally Once a day 2 tablets 24h 90 days Active Ventolin HFA 108 (90 Base) MCG/ACT Inhalation every 4 hrs 2 puffs as needed 4h Aug, Active Xanax 1 MG Orally 3 times a day 1 tablet 8h Aug, 28 days Active RESULTS Name Result Date Reference Range TEST, URINE (IN HOUSE) 2017-06-17 RESULTS negative Lot # [id number] Control + Exp date 08/2018 PROCEDURES Procedure Date Ordered Result Body Site URINE TEST Jun 17, 2017 THER/PROPH/DIAG INJ, SC/IM Jun 17, 2017 DEPO PROVERA (150 MG/ML) Jun 17, 2017 INSTRUCTIONS MEDICATIONS ADMINISTERED No Known Medications [...]
--- OUTSIDE RECORDS SUMMARY | 2018-01-25 15:55 | XMS REPORT ---
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 [facility] [address] [id number] [place] [address]- 8843 Mar, [facility] [place] [facility] [address] [facility] [id number] [place] [address]- 0834 Mar, [facility] [place] [facility] [address] [id number] [place] [address]- 3896 Mar, [facility] [place] [facility] [address] [id number] [place] [address]- 5499 Mar, [facility] [place] [facility] [address] [id number] [place] [address]- 7756 Mar, [facility] [place] [facility] [address] [id number] [place] [address]- 8323 24 Mar, 2014 [facility] [place] [facility] [address] [facility] [id number] [place] [address]- 9860 Mar, [facility] [place] [facility] [address] [id number] [place] [address]- 5932 Mar, [facility] [place] [facility] [address] [id number] [place] [address]- 7365 Mar, [facility] [place] [facility] [address] [id number] [place] [address]- 2776 Mar, [facility] [place] [facility] [address] [id number] [place] [address]- 4463 Jan, [facility] [place] [facility] [address] [id number] [place] [address]- 5721 Jan, [facility] [place] [facility] [address] [id number] [place] [address]- 0060 Jan, [facility] [place] [facility] [address] [id number] [place] [address]- 2350 Jan, [facility] [place] [facility] [address] [id number] [place] [address]- 7741 Jan, [facility] [place] [facility] [address] [id number] [place] [address]- 1874 Jan, [facility] [place] [facility] [address] [id number] [place] [address]- 0193 Jan, [facility] [place] [facility] [address] [id number] [place] [address]- 2094 Jan, [facility] [place] [facility] [address] [id number] [place] [address]- 3657 Jan, [facility] [place] [facility] [address] [id number] [place] [address]- 4903 Dec, [facility] [place] [facility] [address] [id number] [place] [address]- 0498 Dec, [facility] [place] [facility] [address] [id number] [place] [address]- 3349 Dec, [facility] [place] [facility] [address] [id number] [place] [address]- 0035 Dec, [facility] [place] [facility] [address] [id number] [place] [address]- 6698 Dec, [facility] [place] [facility] [address] [id number] [place] [address]- 6271 Dec, [facility] [place] [facility] [address] [id number] [place] [address]- 6082 Dec, [facility] [place] [facility] [address] [id number] [place] [address]- 6345 Dec, [facility] [place] [facility] [address] [id number] [place] [address]- 1576 Dec, [facility] [place] [facility] [address] [id number] [place] [address]- 9388 October, [facility] [place] [facility] [address] [id number] [place] [address]- 2388 October, [facility] [place] [facility] [address] [id number] [place] [address]- 9024 Sep, [facility] [place] [facility] [address] [id number] [place] [address]- 5022 Sep, [facility] [place] [facility] [address] [id number] [place] [address]- 6194 Aug, [facility] [place] [facility] [address] [id number] [place] [address]- 9099 Aug, [facility] [place] [facility] [address] [id number] [place] [address]- 7745 Aug, [facility] [place] [facility] [address] [id number] [place] [address]- 7461 Aug, [facility] [place] [facility] [address] [id number] [place] [address]- 3025 Aug, [facility] [place] [facility] [address] [id number] [place] [address]- 3451 Aug, [facility] [place] [facility] [address] [id number] [place] [address]- 3116 14 Aug, 2013 [facility] [address] [id number] [place] [address]- 6786 07 Aug, 2013 [facility] [place] [facility] [address] [id number] [place] [address] 2546 07 Aug, 2013 [facility] [place] [facility] [address] [id number] [place] [address]- 4686 Aug, 2013 [facility] [place] [facility] [address] [id number] [place] [address] 2542 Aug, [facility] [place] [facility] [address] [id number] [place] [address]- 6216 Jul, [facility] [place] [facility] [address] [id number] [place] [address]- 0310 Jul, [facility] [place] [facility] [address] [id number] [place] [address]- 7603 May, [facility] [place] [facility] [address] [id number] [place] [address] 2547 May, [facility] [place] [facility] [address] [id number] [place] [address]- 0826 May, [facility] [place] [facility] [address] [facility] [id number] [place] [address]- 1954 May, [facility] [place] [facility] [address] [id number] [place] [address] 2546 May, [facility] [place] [facility] [address] [id number] [place] [address] 2549 May, [facility] [place] [facility] [address] [id number] [place] [address] 2546 May, [facility] [place] [facility] [address] [id number] [place] [address]- 2546 May, [facility] [place] [facility] [address] [id number] [place] [address]- 1540 May, [facility] [place] [facility] [address] [id number] [place] [address]- 4836 May, [facility] [place] [facility] [address] [id number] [place] [address]- 4528 May, [facility] [place] [facility] [address] [id number] [place] [address]- 1641 May, [facility] [place] [facility] [address] [id number] [place] [address]- 1010 May, [facility] [place] [facility] [address] [id number] [place] [address]- 6450 May, [facility] [place] [facility] [address] [id number] [place] [address]- 4851 May, [facility] [place] [facility] [address] [id number] [place] [address]- 8008 May, [facility] [place] [facility] [address] [id number] [place] [address]- 8253 18 May, 2013 [facility] [place] [facility] [address] [id number] [place] [address]- 0865 18 May, 2013 [facility] [place] [facility] [address] [id number] [place] [address]- 0192 16 May, 2013 [facility] [place] [facility] [address] [id number] [place] [address]- 6670 16 May, 2013 [facility] [place] [facility] [address] [id number] [place] [address]- 6405 11 May, 2013 [facility] [place] [facility] [address] [id number] [place] [address]- 4635 May, [facility] [place] [facility] [address] [id number] [place] [address]- 4741 11 May, 2013 [facility] [place] [facility] [address] [id number] [place] [address]- 8947 May, [facility] [place] [facility] [address] [id number] [place] [address]- 6991 09 May, 2013 [facility] [place] [facility] [address] [id number] [place] [address]- 8536 09 May, 2013 [facility] [place] [facility] [address] [id number] [place] [address]- 2469 May, [facility] [place] [facility] [address] [id number] [place] [address]- 4068 May, [facility] [place] [facility] [address] [id number] [place] [address]- 3183 May, [facility] [place] [facility] [address] [id number] [place] [address]- 2075 May, [facility] [place] [facility] [address] [id number] [place] [address]- 1824 Mar, [facility] [place] [facility] [address] [id number] [place] [address]- 6342 Mar, [facility] [place] [facility] [address] [id number] [place] [address]- 9299 31 Mar, 2013 [facility] [place] [facility] [address] [id number] [place] [address] 31 Mar, 2013 [facility] [place] [facility] [address] [facility] [id number] [place] [address] 30 Mar, 2013 [facility] [place] [facility] [address] [id number] [place] [address] 29 Mar, 2013 [facility] [place] [facility] [address] [id number] [place] [address] 29 Mar, 2013 [facility] [place] [facility] [address] [id number] [place] [address]149 29 Mar, 2013 [facility] [place] [facility] [address] [id number] [place] [address] 29 Mar, 2013 [facility] [place] [facility] [address] [facility] [id number] [place] [address] 78[address] 28 Mar, 2013 [facility] [place] [facility] [address] [id number] [place] [address]169 28 Mar, 2012 [facility] [place] [facility] [address] [id number] [place] [address] 24 Mar, 2013 [facility] [place] [facility] [address] [id number] [place] [address]- 6552 24 Mar, 2013 [facility] [place] [facility] [address] [id number] [place] [address]- 4210 23 Mar, 2013 [facility] [place] [facility] [address] [id number] [place] [address] 22 Mar, 2013 [facility] [place] [facility] [address] [id number] [place] [address] Mar, [facility] [place] [facility] [address] [id number] [place] [address] Mar, [facility] [place] [facility] [address] [id number] [place] [address]- 9078 18 Mar, 2013 [facility] [place] [facility] [address] [id number] [place] [address]- 7189 18 Mar, 2013 [facility] [place] [facility] [address] [id number] [place] [address]- 4347 18 Mar, 2013 [facility] [place] [facility] [address] [id number] [place] [address]- 7647 18 Mar, 2013 [facility] [place] [facility] [address] [id number] [place] [address]- 9482 14 Mar, 2013 [facility] [place] [facility] [address] [id number] [place] [address]- [address] 14 Mar, 2013 [facility] [place] [facility] [address] [id number] [place] [address]- 8088 10 Mar, 2013 [facility] [place] [facility] [address] [id number] [place] [address] 6647 18 Mar, 2013 [facility] [place] [facility] [address] [id number] [place] [address] Mar, [facility] [address] [id number] [place] [address] Mar, [facility] [address] [id number] [place] [address] Jan, [facility] [address] [id number] [place] [address] 58[address] October, [facility] [address] [id number] [place] [address] 2860 Sep, [facility] [address] [id number] [place] [address] 17[address] Sep, [facility] [address] [id number] [place] [address] Aug, [facility] [address] [id number] [place] [address] Aug, [facility] [address] [id number] [place] [address] 119[address] Aug, [facility] [address] [id number] [place] [address] Jul, [facility] [address] [id number] [place] [address] May, [facility] [address] [id number] [place] [address] May, [facility] [place] [facility] [address] [id number] [place] [address] 5865 May, [facility] [place] [facility] [address] [id number] [place] [address] May, [facility] [place] [facility] [address] [facility] [id number] [place] [address] Mar, [facility] [place] [facility] [address] [id number] [place] [address] Mar, [facility] [place] [facility] [address] [id number] [place] [address]- [address]156 16 Mar, 2012 [facility] [place] [facility] [address] [id number] [place] [address]- 9999 25 Mar, 2011 [facility] [place] [facility] [address] [id number] [place] [address] 1946 19 Mar, 2011 [facility] [place] [facility] [address] [id number] [place] [address]- 4236 13 Mar, 2011 [facility] [place] [facility] [address] [id number] [place] [address]- 1846 07 Mar, 2012 [facility] [place] [facility] [address] [id number] [place] [address]- [address]327 30 Jan, 2012 [facility] [place] [facility] [address] [id number] [place] [address]- 9841 28 Jan, 2012 [facility] [place] [facility] [address] [id number] [place] [address] 45[address] Jan, [facility] [place] [facility] [address] [id number] [place] [address]- [address] 14 Jan, 2012 [facility] [place] [facility] [address] [id number] [place] [address]- 4914 Jan, [facility] [place] [facility] [address] [id number] [place] [address]- [address] Jan, [facility] [place] [facility] [address] [id number] [place] [address] 0527 Jan, [facility] [place] [facility] [address] [id number] [place] [address]- 0911 Jan, [facility] [place] [facility] [address] [id number] [place] [address]- 8536 Jan, [facility] [place] [facility] [address] [id number] [place] [address]- 9826 Jan, [facility] [place] [facility] [address] [id number] [place] [address]- 5[address] Jan, [facility] [place] [facility] [address] [id number] [place] [address]- 6482 Jan, [facility] [place] [facility] [address] [id number] [place] [address] Jan, [facility] [place] [facility] [address] [id number] [place] [address]- 0744 Jan, [facility] [place] [facility] [address] [id number] [place] [address]- [address] Jan, [facility] [place] [facility] [address] [id number] [place] [address] Jan, [facility] [place] [facility] [address] [id number] [place] [address] Dec, [facility] [place] [facility] [address] [id number] [place] [address] Dec, [facility] [place] [facility] [address] [id number] [place] [address] Nov, [facility] [place] [facility] [address] [id number] [place] [address] Nov, [facility] [place] [facility] [address] [id number] [place] [address] October, [facility] [place] [facility] [address] [id number] [place] [address] October, [facility] [place] [facility] [address] [id number] [place] [address] October, [facility] [place] [facility] [address] [id number] [place] [address] Sep, [facility] [place] [facility] [address] [id number] [place] [address] Sep, [facility] [place] [facility] [address] [id number] [place] [address] Aug, [facility] [place] [facility] [address] [id number] [place] [address] 28 Aug, 2011 [facility] [address] [id number] [place] [address] 26 Aug, 2011 [facility] [place] [facility] [address] [id number] [place] [address] 19 Aug, 2011 [facility] [address] [id number] [place] [address] 12 Aug, 2011 [facility] [place] [facility] [address] [id number] [place] [address] 14 Aug, 2011 [facility] [place] [facility] [address] [id number] [place] [address] 07 Aug, 2011 [facility] [place] [facility] [address] [id number] [place] [address] 27 Jul, 2011 [facility] [address] [id number] [place] [address] 20 Jul, 2011 [facility] [place] [facility] [address] [id number] [place] [address] Jul, [facility] [address] [id number] [place] [address] 28 May, 2011 [facility] [address] [id number] [place] [address] 28 May, 2011 [facility] [address] [id number] [place] [address] 21 May, 2011 [facility] [place] [facility] [address] [id number] [place] [address] 19 May, 2011 [facility] [place] [facility] [address] [id number] [place] [address] 13 May, 2011 [facility] [place] [facility] [address] [id number] [place] [address] 13 May, 2011 [facility] [place] [facility] [address] [id number] [place] [address] 22 May, 2011 [facility] [address] [facility] [id number] [place] [address] Mar, [facility] [address] [facility] [id number] [place] [address] Mar, [facility] [address] [facility] [id number] [place] [address] Mar, [facility] [address] [facility] [id number] [place] [address] 15 Mar, 2011 [facility] [address] [facility] [id number] [place] [address] Mar, [facility] [address] [facility] [id number] [place] [address] Mar, [facility] [address] [id number] [place] [address] Jan, [facility] [id number] [place] [address] May, [facility] [address] [id number] [place] [address] May, [facility] [id number] [place] [address] May, [facility] [id number] [place] [address] May, [facility] [address] [id number] [place] [address] May, [facility] [address] [facility] [id number] [place] [address] May, [facility] [address] [facility] [id number] [place] [address] Mar, [facility] [address] [facility] [id number] [place] [address] Sep, IMMUNIZATIONS No Known Immunizations SOCIAL HISTORY Never Assessed REASON FOR VISIT Requests return call PLAN OF CARE VITAL SIGNS MEDICATIONS Unknown [...]
--- OUTSIDE RECORDS SUMMARY | 2018-01-25 15:56 | XMS REPORT ---
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 [place] [address]- 3642 24 Mar, 2014 [facility] [place] [facility] [address] [id number] [place] [address]- 8971 08 Mar, 2014 [facility] [place] [facility] [address] [id number] [place] [address]- 1610 08 Mar, 2013 [facility] [place] [facility] [address] [id number] [place] [address]- 5743 Mar, 2013 [facility] [place] [facility] [address] [id number] [place] [address]- 8440 Mar, [facility] [place] [facility] [address] [id number] [place] [address]- 0010 Jan, [facility] [place] [facility] [address] [id number] [place] [address]- 6508 Jan, [facility] [place] [facility] [address] [id number] [facility] [place] [address]- 8326 Jan, [facility] [place] [facility] [address] [id number] [place] [address]- 0690 Jan, [facility] [place] [facility] [address] [id number] [place] [address]- 7884 Jan, [facility] [place] [facility] [address] [id number] [place] [address]- 2998 Jan, [facility] [place] [facility] [address] [id number] [place] [address]- 5801 Jan, [facility] [place] [facility] [address] [id number] [place] [address]- 5830 Jan, [facility] [place] [facility] [address] [id number] [place] [address]- 7737 Jan, [facility] [place] [facility] [address] [id number] [place] [address]- 5643 Dec, [facility] [place] [facility] [address] [id number] [place] [address]- 6630 Dec, [facility] [place] [facility] [address] [id number] [place] [address]- 1707 Dec, [facility] [place] [facility] [address] [id number] [place] [address]- 0980 Dec, [facility] [place] [facility] [address] [id number] [place] [address]- 9790 Dec, [facility] [place] [facility] [address] [id number] [facility] [place] [address]- 8305 Dec, [facility] [place] [facility] [address] [id number] [place] [address]- 8922 Dec, [facility] [place] [facility] [address] [id number] [place] [address]- 5543 Dec, [facility] [place] [facility] [address] [id number] [place] [address]- 7775 Dec, [facility] [place] [facility] [address] [id number] [place] [address]- 2265 October, [facility] [place] [facility] [address] [id number] [place] [address]- 3582 October, [facility] [place] [facility] [address] [facility] [id number] [place] [address]- 9954 Sep, [facility] [place] [facility] [address] [id number] [place] [address]- 1034 Sep, [facility] [place] [facility] [address] [id number] [place] [address]- 4822 Aug, [facility] [place] [facility] [address] [facility] [id number] [place] [address]- 6613 Aug, [facility] [place] [facility] [address] [facility] [id number] [place] [address]- 4530 Aug, [facility] [place] [facility] [address] [facility] [id number] [place] [address]- 9288 Aug, [facility] [place] [facility] [address] [facility] [id number] [place] [address]- 2142 Aug, [facility] [place] [facility] [address] [facility] [id number] [place] [address]- 0512 Aug, [facility] [place] [facility] [address] [facility] [id number] [place] [address]- 2580 14 Aug, 2013 [facility] [place] [facility] [address] [facility] [id number], [place] [address]- 8254 Aug, [facility] [place] [facility] [address] [facility] [id number] [place] [address]- 8336 07 Aug, 2013 [facility] [place] [facility] [address] [facility] [id number] [place] [address]- 8318 Aug, [facility] [place] [facility] [address] [facility] [id number] [place] [address]- 7007 Aug, [facility] [place] [facility] [address] [id number] [place] [address]- 3095 Jul, [facility] [place] [facility] [address] [id number] [place] [address]- 9883 Jul, [facility] [place] [facility] [address] [id number] [place] [address]- 0504 May, [facility] [place] [facility] [address] [id number] [place] [address]- 8178 May, [facility] [place] [facility] [address] [id number] [place] [address] 2540 May, [facility] [place] [facility] [address] [id number] [place] [address]- 3731 May, [facility] [place] [facility] [address] [id number] [place] [address]- 0045 May, [facility] [place] [facility] [address] [id number] [place] [address]- 7723 May, [facility] [place] [facility] [address] [id number] [place] [address]- 6706 May, [facility] [place] [facility] [address] [id number] [place] [address]- 2081 May, [facility] [place] [facility] [address] [id number] [place] [address]- 3885 May, [facility] [place] [facility] [address] [id number] [place] [address]- 7102 May, [facility] [place] [facility] [address] [id number] [place] [address]- 3465 May, [facility] [place] [facility] [address] [id number] [place] [address] 2544 May, [facility] [place] [facility] [address] [id number] [place] [address]- 2543 May, [facility] [place] [facility] [address] [id number] [place] [address]- 0279 May, [facility] [place] [facility] [address] [id number] [place] [address]- 6878 May, [facility] [place] [facility] [address] [id number], [place] [address]- 5826 May, [facility] [place] [facility] [address] [facility] [id number] [place] [address]- 3889 May, [facility] [place] [facility] [address] [id number], [place] [address]- 3040 May, [facility] [place] [facility] [address] [id number] [place] [address]- 4956 May, [facility] [place] [facility] [address] [id number], [place] [address]- 1751 May, [facility] [place] [facility] [address] [id number], [place] [address]- 4626 May, [facility] [place] [facility] [address] [id number], [place] [address]- 4170 May, [facility] [place] [facility] [address] [id number], [place] [address]- 3936 May, [facility] [place] [facility] [address] [id number], [place] [address]- 4516 May, [facility] [place] [facility] [address] [id number], [place] [address]- 2040 May, [facility] [place] [facility] [address] [id number], [place] [address]- 5864 May, [facility] [place] [facility] [address] [id number], [place] [address]- 3578 May, [facility] [place] [facility] [address] [id number], [place] [address]- 7380 May, [facility] [place] [facility] [address] [id number], [place] [address]- 4799 May, [facility] [place] [facility] [address] [id number] [place] [address]- 4179 May, [facility] [place] [facility] [address] [id number] [place] [address]- 3499 Mar, 2012 [facility] [place] [facility] [address] [id number] [place] [address]- 0174 Mar, 2012 [facility] [place] [facility] [address] [id number] [place] [address]- 4097 Mar, 2012 [facility] [place] [facility] [address] [id number] [place] [address]- 7613 Mar, 2012 [facility] [place] [facility] [address] [id number] [place] [address]- 4411 30 Mar, 2012 [facility] [place] [facility] [address] [id number] [place] [address]- 2844 Mar, 2012 [facility] [place] [facility] [address] [id number] [place] [address]- 9452 Mar, 2012 [facility] [place] [facility] [address] [id number] [place] [address]- 4381 Mar, [facility] [place] [facility] [address] [id number] [place] [address]- 7952 Mar, [facility] [place] [facility] [address] [id number] [place] [address]- 1576 Mar, [facility] [place] [facility] [address] [id number] [place] [address]- 7929 Mar, [facility] [place] [facility] [address] [id number] [place] [address]- 6192 Mar, [facility] [place] [facility] [address] [id number] [place] [address]- 7430 24 Mar, 2013 [facility] [place] [facility] [address] [id number] [place] [address]- 8929 Mar, 2012 [facility] [place] [facility] [address] [id number] [place] [address]- 2736 Mar, [facility] [place] [facility] [address] [id number] [place] [address]- 7697 Mar, [facility] [place] [facility] [address] [id number] [place] 8816 21 Mar, 2013 [facility] [place] [facility] [address] [id number] [place] [address]- 6979 18 Mar, 2013 [facility] [place] [facility] [address] [id number] [place] [address]- 6496 18 Mar, 2013 [facility] [address] [id number] [place] [address]- 4837 18 Mar, 2013 [facility] [place] [facility] [address] [id number] [place] [address]- 3790 18 Mar, 2013 [facility] [address] [id number] [place] [address]- 5160 14 Mar, 2013 [facility] [place] [facility] [address] [id number] [place] [address] 14 Mar, 2013 [facility] [place] [facility] [address] [id number] [place] [address] 10 Mar, 2013 [facility] [place] [facility] [address] [id number] [place] [address] 18 Mar, 2013 [facility] [place] [facility] [address] [id number] [place] [address] 12 Mar, 2013 [facility] [place] [facility] [address] [id number], [place] [address] Mar, [facility] [place] [facility] [address] [id number] [place] [address] Jan, [facility] [place] [facility] [address] [id number] [place] [address] October, [facility] [place] [facility] [address] [id number] [place] [address] Sep, [facility] [place] [facility] [address] [id number], [place] [address] 15 Sep, 2012 [facility] [address] [id number] [place] [address] 07 Aug, 2012 [facility] [address] [facility] [id number], [place] [address] 06 Aug, 2012 [facility] [address] [facility] [id number] [place] [address] 04 Aug, 2012 [facility] [address] [facility] [id number], [place] [address] 17 Jul, 2012 [facility] [address] [facility] [id number] [place] [address] 9932 19 May, 2012 [facility] [address] [facility] [id number], [place] [address] 19 May, 2012 [facility] [address] [facility] [id number], [place] [address] 18 May, 2012 [facility] [address] [facility] [id number], [place] [address] 18 May, 2012 [facility] [address] [facility] [id number], [place] [address] 19 Mar, 2012 [facility] [address] [facility] [id number], [place] [address] 9[address] 19 Mar, 2012 [facility] [address] [facility] [id number], [place] [address] 16 Mar, 2012 [facility] [place] [facility] [address] [facility] [id number], [place] [address]- [address] 25 Mar, 2012 [facility] [place] [facility] [address] [id number], [place] [address] 19 Sep2011 [facility] [place] [facility] [address] [facility] [id number], [place] [address]- 7325 13 Sep2011 [facility] [place] [facility] [address] [facility] [id number], [place] [address] 07 Sep, 2011 [facility] [place] [facility] [address] [id number] [place] [address]- 1265 Jan, [facility] [place] [facility] [address] [id number] [place] [address] 2736 Jan, [facility] [place] [facility] [address] [id number] [place] [address] 2546 Jan, [facility] [place] [facility] [address] [id number] [place] [address] 4[address] Jan, [facility] [place] [facility] [address] [id number] [place] [address] 8[address] Jan, [facility] [place] [facility] [address] [id number] [place] [address] 7103 Jan, [facility] [place] [facility] [address] [id number] [place] [address] 7712 Jan, [facility] [place] [facility] [address] [id number] [place] [address]- 6474 Jan, [facility] [place] [facility] [address] [id number] [place] [address] 63[address] Jan, [facility] [place] [facility] [address] [id number] [place] [address] Jan, [facility] [place] [facility] [address] [id number] [place] [address] 3587 Jan, [facility] [place] [facility] [address] [id number] [place] [address] 5329 Jan, [facility] [place] [facility] [address] [id number] [place] [address] Jan, [facility] [place] [facility] [address] [id number] [place] [address]- 2686 Jan, [facility] [place] [facility] [address] [id number] [place] [address] 5066 Jan, [facility] [place] [facility] [address] [id number] [place] [address] Jan, [facility] [place] [facility] [address] [id number] [place] [address] 2849 Dec, [facility] [place] [facility] [address] [id number] [place] [address] 8896 Dec, [facility] [place] [facility] [address] [id number] [place] [address]- 5[address] Nov, [facility] [place] [facility] [address] [id number] [place] [address] 7581 Nov, [facility] [place] [facility] [address] [id number] [place] [address] 9717 October, [facility] [place] [facility] [address] [id number] [place] [address]- 6936 October, [facility] [place] [facility] [address] [id number] [place] [address]- 6826 October, [facility] [place] [facility] [address] [id number] [place] [address]- 0724 Sep, [facility] [place] [facility] [address] [id number] [place] [address]- 5900 Sep, [facility] [place] [facility] [address] [id number] [place] [address] 7316 Aug, [facility] [place] [facility] [address] [id number] [place] [address]- 2[address] Aug, [facility] [place] [facility] [address] [id number], [place] [address]- 99[address] Aug, [facility] [place] [facility] [address] [id number] [place] [address]- 8476 Aug, [facility] [place] [facility] [address] [id number] [place] [address] 8671 Aug, [facility] [place] [facility] [address] [id number] [place] [address]- 2041 Aug, [facility] [place] [facility] [address] [id number] [place] [address]- 3812 07 Aug, 2011 [facility] [address] [id number] [place] [address]- 5566 Jul, [facility] [address] [id number] [place] [address]- 1499 Jul, [facility] [address] [id number] [place] [address] 36[address] Jul, [facility] [address] [id number] [place] [address]- 9042 May, [facility] [address] [id number] [place] [address]- 1347 May, [facility] [address] [id number] [place] [address]- 4966 May, [facility] [address] [id number] [place] [address]- 3051 May, [facility] [address] [id number] [place] [address]- 1688 May, [facility] [address] [id number] [place] [place] [address] May, [facility] [address] [id number] [place] [address] May, [facility] [address] [id number] [place] [address] 25 Mar, 2011 [facility] [address] [id number] [place] [address] Mar, [facility] [place] [facility] [address] [id number] [place] [address] 19 Mar, 2011 [facility] [place] [facility] [address] [id number] [place] [address] 15 Mar, 2011 [facility] [address] [id number] [place] [address] Mar, [facility] [id number] [address] Mar, [facility] [id number] [address] Jan, [facility] [id number] [address] May, [facility] [id number] [address] May, [facility] [id number] [address] May, [facility] [id number] [address] May, [facility] [id number] [address] May, [facility] [id number] [address] May, [facility] [id number] [address] Mar, [facility] [id number] [address] Sep, IMMUNIZATIONS No Known Immunizations SOCIAL HISTORY Never Assessed REASON FOR VISIT Controlled Med Refill 05/01/2017 PLAN OF CARE VITAL SIGNS MEDICATIONS Medication Instructions Dosage Frequency Start Date End Date Duration Status Xanax 1 MG Orally 3 times a day 1 tablet 8h 26 Aug, 2014 28 days Active Hydrocodone-Acetaminophen 7.5-325 MG Orally twice a day 1 tablet as needed 12h May, 28 days Active RESULTS No Results [...]
--- OUTSIDE RECORDS SUMMARY | 2018-01-25 15:57 | XMS REPORT ---
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 [facility] [address] [id number] [place] [address]- 7165 08 Mar, 2014 [facility] [place] [facility] [address] [id number] [place] [address]- 2124 Mar, [facility] [place] [facility] [address] [id number] [place] [address]- 8450 Mar, [facility] [place] [facility] [address] [id number] [place] [address]- 5146 Jan, [facility] [place] [facility] [address] [id number] [place] [address]- 7962 Jan, [facility] [place] [facility] [address] [id number] [place] [address]- 5943 Jan, [facility] [place] [facility] [address] [id number] [place] [address]- 2957 Jan, [facility] [place] [facility] [address] [id number] [place] [address]- 8092 Jan, [facility] [place] [facility] [address] [id number] [place] [address]- 2048 Jan, [facility] [place] [facility] [address] [id number] [place] [address]- 6768 Jan, [facility] [place] [facility] [address] [id number] [place] [address]- 6697 Jan, [facility] [place] [facility] [address] [id number] [place] [address]- 5692 Jan, [facility] [place] [facility] [address] [id number] [place] [address]- 5056 Dec, [facility] [place] [facility] [address] [id number] [place] [address]- 9013 Dec, [facility] [place] [facility] [address] [id number] [place] [address]- 8902 Dec, [facility] [place] [facility] [address] [id number] [place] [address]- 8714 Dec, [facility] [place] [facility] [address] [id number] [place] [address]- 5640 Dec, [facility] [place] [facility] [address] [id number] [place] [address]- 8874 Dec, [facility] [place] [facility] [address] [id number] [place] [address]- 4518 Dec, [facility] [place] [facility] [address] [id number] [place] [address]- 5330 Dec, [facility] [place] [facility] [address] [id number] [place] [address]- 3724 Dec, [facility] [place] [facility] [address] [id number] [place] [address]- 6226 October, [facility] [place] [facility] [address] [id number] [place] [address]- 3928 October, [facility] [place] [facility] [address] [id number] [place] [address]- 4910 Sep, [facility] [place] [facility] [address] [facility] [id number] [place] [address]- 8823 Sep, [facility] [place] [facility] [address] [id number] [place] [address]- 1731 Aug, [facility] [place] [facility] [address] [id number] [place] [address]- 1978 Aug, [facility] [place] [facility] [address] [facility] [id number] [place] [address]- 1301 Aug, [facility] [place] [facility] [address] [facility] [id number] [place] [address]- 4306 Aug, [facility] [place] [facility] [address] [id number] [place] [address]- 6294 Aug, [facility] [place] [facility] [address] [facility] [id number] [place] [address]- 0563 Aug, [facility] [place] [facility] [address] [facility] [id number] [place] [address]- 0689 Aug, [facility] [place] [facility] [address] [facility] [id number], [place] [address]- 4553 Aug, [facility] [place] [facility] [address] [facility] [id number], [place] [address]- 3676 Aug, [facility] [place] [facility] [address] [facility] [id number] [place] [address]- 2071 Aug, [facility] [place] [facility] [address] [facility] [id number], [place] [address]- 4237 Aug, [facility] [place] [facility] [address] [facility] [id number], [place] [address]- 0505 Jul, [facility] [place] [facility] [address] [id number] [place] [address]- 4476 Jul, [facility] [place] [facility] [address] [id number] [place] [address]- 9946 May, [facility] [place] [facility] [address] [id number] [place] [address] 2546 May, [facility] [place] [facility] [address] [id number] [place] [address]- 4806 May, [facility] [place] [facility] [address] [id number] [place] [address] 2547 May, [facility] [place] [facility] [address] [id number] [place] [address]- 2444 May, [facility] [place] [facility] [address] [id number] [place] [address]- 8645 May, [facility] [place] [facility] [address] [id number] [place] [address]- 6212 May, [facility] [place] [facility] [address] [id number] [place] [address]- 7966 May, [facility] [place] [facility] [address] [id number] [place] [address]- 0923 May, [facility] [place] [facility] [address] [id number] [place] [address]- 5719 May, [facility] [place] [facility] [address] [id number] [place] [address]- 8654 May, [facility] [place] [facility] [address] [id number] [place] [address] 2547 May, [facility] [place] [facility] [address] [id number] [place] [address] 2545 May, [facility] [place] [facility] [address] [id number] [place] [address]- 2545 May, [facility] [place] [facility] [address] [id number] [place] [address]- 6960 May, [facility] [place] [facility] [address] [id number] [place] [address]- 3759 May, [facility] [place] [facility] [address] [id number], [place] [address]- 6038 May, [facility] [place] [facility] [address] [id number], [place] [address]- 0818 May, [facility] [place] [facility] [address] [id number], [place] [address]- 5818 May, [facility] [place] [facility] [address] [id number] [place] [address]- 7375 May, [facility] [place] [facility] [address] [id number], [place] [address]- 8975 May, [facility] [place] [facility] [address] [id number], [place] [address]- 5283 May, [facility] [place] [facility] [address] [id number], [place] [address]- 7625 May, [facility] [place] [facility] [address] [id number], [place] [address]- 5516 May, [facility] [place] [facility] [address] [id number], [place] [address]- 8049 May, [facility] [place] [facility] [address] [id number], [place] [address]- 9360 May, [facility] [place] [facility] [address] [id number], [place] [address]- 1396 May, [facility] [place] [facility] [address] [id number], [place] [address]- 1687 May, [facility] [place] [facility] [address] [id number], [place] [address]- 5604 May, [facility] [place] [facility] [address] [id number], [place] [address]- 0153 May, [facility] [place] [facility] [address] [id number] [place] [address]- 2607 31 Mar, 2012 [facility] [place] [facility] [address] [id number] [place] [address]- 0712 31 Mar, 2012 [facility] [place] [facility] [address] [id number] [place] [address]- 3462 31 Mar, 2012 [facility] [place] [facility] [address] [id number] [place] [address]- 2091 31 Mar, 2012 [facility] [place] [facility] [address] [id number] [place] [address]- 4039 30 Mar, 2012 [facility] [place] [facility] [address] [id number] [place] [address]- 7876 29 Mar, 2012 [facility] [place] [facility] [address] [id number] [place] [address]- 5629 29 Mar, 2012 [facility] [place] [facility] [address] [id number] [place] [address]- 4413 29 Mar, 2012 [facility] [place] [facility] [address] [id number] [place] [address]- 9390 29 Mar, 2012 [facility] [place] [facility] [address] [id number] [place] [address]- 1947 28 Mar, 2012 [facility] [place] [facility] [address] [id number] [place] [address]- 2689 28 Mar, 2012 [facility] [place] [facility] [address] [id number] [place] [address]- 0858 24 Mar, 2012 [facility] [place] [facility] [address] [id number] [place] [address]- 9318 24 Mar, 2012 [facility] [place] [facility] [address] [id number] [place] [address]- 5027 23 Mar, 2012 [facility] [place] [facility] [address] [id number] [place] [address]- 3555 22 Mar, 2012 [facility] [place] [facility] [address] [id number] [place] [address]- 9880 21 Mar, 2013 [facility] [place] [facility] [address] [id number] [place] [address] 21 Mar, 2013 [facility] [place] [facility] [address] [id number] [place] [address] 18 Mar, 2013 [facility] [place] [facility] [address] [id number] [place] [address] 18 Mar, 2013 [facility] [place] [facility] [address] [id number] [place] [address] 18 Mar, 2013 [facility] [address] [id number] [place] [address] 18 Mar, 2013 [facility] [place] [facility] [address] [id number] [place] [address] 280[address] 14 Mar, 2013 [facility] [address] [id number] [place] [address] 14 Mar, 2013 [facility] [address] [id number] [place] [address] 10 Mar, 2013 [facility] [place] [facility] [address] [id number] [place] [address] 18 Mar, 2013 [facility] [place] [facility] [address] [id number] [place] [address]- 8069 12 Mar, 2013 [facility] [place] [facility] [address] [id number] [place] [address] 1663 11 Mar, 2013 [facility] [place] [facility] [address] [id number], [place] [address] Jan, [facility] [place] [facility] [address] [id number] [place] [address] October, [facility] [place] [facility] [address] [id number] [place] [address] 67[address] 22 Sep, 2012 [facility] [place] [facility] [address] [id number] [place] [address] 15 Sep, 2012 [facility] [place] [facility] [address] [id number], [place] [address] 07 Aug, 2012 [facility] [address] [id number] [place] [address] 06 Aug, 2012 [facility] [place] [facility] [address] [id number], [place] [address] 04 Aug, 2012 [facility] [address] [facility] [id number] [place] [address] 17 Jul, 2012 [facility] [place] [facility] [address] [id number] [place] [address] 8710 19 May, 2012 [facility] [address] [id number] [place] [address] May, [facility] [place] [facility] [address] [facility] [id number] [place] [address] 18 May, 2012 [facility] [address] [facility] [id number], [place] [address] 18 May, 2012 [facility] [place] [facility] [address] [facility] [id number] [place] [address] 34[address] 19 Mar, 2012 [facility] [address] [facility] [id number] [place] [address] 7149 19 Mar, 2012 [facility] [place] [facility] [address] [facility] [id number], [place] [address] 16 Mar, 2012 [facility] [address] [facility] [id number], [place] [address] 1022 25 Mar, 2012 [facility] [place] [facility] [address] [id number], [place] [address] 19 Mar, 2012 [facility] [place] [facility] [address] [id number], [place] [address] 2835 13 Mar, 2012 [facility] [place] [facility] [address] [facility] [id number], [place] [address] 3867 07 Mar, 2012 [facility] [place] [facility] [address] [facility] [id number], [place] [address] 30 Jan, 2012 [facility] [place] [facility] [address] [id number] [place] [address] Jan, [facility] [place] [facility] [address] [id number] [place] [address] 8896 Jan, [facility] [place] [facility] [address] [id number] [place] [address] 2546 Jan, [facility] [place] [facility] [address] [id number] [place] [address] Jan, [facility] [place] [facility] [address] [id number] [place] [address] 36[address] Jan, [facility] [place] [facility] [address] [id number] [place] [address] 1330 Jan, [facility] [place] [facility] [address] [id number] [place] [address]- 2827 Jan, [facility] [place] [facility] [address] [id number] [place] [address]- 0581 Jan, [facility] [place] [facility] [address] [id number] [place] [address]- 9512 Jan, [facility] [place] [facility] [address] [id number] [place] [address]- 0134 Jan, [facility] [place] [facility] [address] [id number] [place] [address]- 0775 Jan, [facility] [place] [facility] [address] [id number] [place] [address]- [address] Jan, [facility] [place] [facility] [address] [id number] [place] [address]- 1344 Jan, [facility] [place] [facility] [address] [id number] [place] [address]- 7819 Jan, [facility] [place] [facility] [address] [id number] [place] [address]- 0719 Jan, [facility] [place] [facility] [address] [id number] [place] [address] Dec, [facility] [place] [facility] [address] [id number] [place] [address]- 6664 Dec, [facility] [place] [facility] [address] [id number] [place] [address]- 6721 Nov, [facility] [place] [facility] [address] [id number] [place] [address]- [address]112 Nov, [facility] [place] [facility] [address] [id number] [place] [address] 478[address] October, [facility] [place] [facility] [address] [id number] [place] [address]- 44[address] October, [facility] [place] [facility] [address] [id number] [place] [address]- 5426 October, [facility] [place] [facility] [address] [id number] [place] [address]- 8634 Sep, [facility] [place] [facility] [address] [id number] [place] [address]- 0884 Sep, [facility] [place] [facility] [address] [id number] [place] [address]- 4949 30 Aug, 2011 [facility] [place] [facility] [address] [id number] [place] [address]- 8332 Aug, [facility] [place] [facility] [address] [id number] [place] [address]- 3328 Aug, [facility] [place] [facility] [address] [id number] [place] [address]- 8116 Aug, [facility] [place] [facility] [address] [id number] [place] [address]- 0734 Aug, [facility] [place] [facility] [address] [id number] [place] [address]- 4156 14 Aug, 2011 [facility] [place] [facility] [address] [address] [id number] [place] [address] Aug, [facility] [place] [facility] [address] [id number] [place] [address] 27 Jul, 2011 [facility] [address] [id number] [place] [address] Jul, [facility] [address] [id number] [place] [address] 20 Jul, 2011 [facility] [address] [id number] [place] [address] 28 May, 2011 [facility] [address] [id number] [place] [address] 28 May, 2011 [facility] [address] [id number] [place] [address] May, [facility] [address] [id number] [place] [address] May, [facility] [address] [id number] [place] [address] May, [facility] [address] [id number] [place] [address] 13 May, 2011 [facility] [address] [id number] [place] [address] May, [facility] [address] [id number] [place] [address] 25 Mar, 2011 [facility] [address] [id number] [place] [address] 20 Mar, 2011 [facility] [address] [id number] [place] [address] 19 Mar, 2011 [facility] [address] [id number] [place] [address] 15 Mar, 2011 [facility] [address] [id number] [place] [address] 27 Mar, 2010 [facility] [address] [id number] [place] [address] 13 Mar, 2010 [facility] [address] [id number] [address] Jan, [facility] [id number] [place] [address] May, [facility] [id number] [address] May, [facility] [id number] [address] May, [facility] [id number] [place] [address] May, [facility] [id number] [address] May, [facility] [id number] [place] [address] May, [facility] [id number] [place] [address] Mar, [facility] [id number] [address] Sep, IMMUNIZATIONS No Known Immunizations SOCIAL HISTORY [...]
--- OUTSIDE RECORDS SUMMARY | 2018-01-25 15:59 | XMS REPORT ---
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 [address] [id number] [place] [address]- 3086 Mar, [facility] [place] [facility] [address] [id number], [place] [address]- 7662 Mar, [facility] [place] [facility] [address] [id number], [place] [address]- 6351 Mar, [facility] [place] [facility] [address] [id number], [place] [address]- 9153 Mar, 2013 [facility] [place] [facility] [address] [id number] [place] [address]- 0302 Mar, 2013 [facility] [place] [facility] [address] [id number] [place] [address]- 8366 Mar, [facility] [place] [facility] [address] [id number] [place] [address]- 3095 Mar, [facility] [place] [facility] [address] [id number] [place] [address]- 5385 Mar, [facility] [place] [facility] [address] [id number] [place] [address]- 8296 Mar, [facility] [place] [facility] [address] [id number] [place] [address]- 7987 Jan, [facility] [place] [facility] [address] [id number] [place] [address]- 6350 Jan, [facility] [place] [facility] [address] [id number] [place] [address]- 2679 Jan, [facility] [place] [facility] [address] [id number] [place] [address]- 5926 Jan, [facility] [place] [facility] [address] [id number] [place] [address]- 2743 Jan, [facility] [place] [facility] [address] [id number] [place] [address]- 8248 Jan, [facility] [place] [facility] [address] [id number] [place] [address]- 6847 Jan, [facility] [place] [facility] [address] [id number] [place] [address]- 5066 Jan, [facility] [place] [facility] [address] [id number] [place] [address]- 8761 Jan, [facility] [place] [facility] [address] [id number] [place] [address]- 1315 Dec, [facility] [place] [facility] [address] [id number] [place] [address]- 6266 Dec, [facility] [place] [facility] [address] [id number] [place] [address]- 7386 Dec, [facility] [place] [facility] [address] [id number] [place] [address]- 7782 Dec, [facility] [place] [facility] [address] [id number] [place] [address]- 8545 Dec, [facility] [place] [facility] [address] [id number] [place] [address]- 2056 Dec, [facility] [place] [facility] [address] [id number] [place] [address]- 3438 Dec, [facility] [place] [facility] [address] [id number] [place] [address]- 7803 Dec, [facility] [place] [facility] [address] [id number] [place] [address]- 1893 Dec, [facility] [place] [facility] [address] [id number] [place] [address]- 6082 October, [facility] [place] [facility] [address] [id number] [place] [address]- 8645 October, [facility] [place] [facility] [address] [id number] [place] [address]- 9691 Sep, [facility] [place] [facility] [address] [id number] [place] [address]- 1232 Sep, [facility] [place] [facility] [address] [id number] [place] [address]- 8017 Aug, [facility] [place] [facility] [address] [id number] [place] [address]- 2176 Aug, [facility] [place] [facility] [address] [id number] [place] [address]- 8504 Aug, [facility] [place] [facility] [address] [id number] [place] [address]- 6109 Aug, [facility] [place] [facility] [address] [id number] [place] [address]- 9796 Aug, [facility] [place] [facility] [address] [id number] [place] [address]- 1796 Aug, [facility] [place] [facility] [address] [facility] [id number] [place] [address]- 8506 Aug, [facility] [place] [facility] [address] [id number] [place] [address]- 1276 Aug, [facility] [place] [facility] [address] [id number] [place] [address]- 2212 Aug, [facility] [place] [facility] [address] [facility] [id number] [place] [address]- 1246 Aug, [facility] [place] [facility] [address] [facility] [id number] [place] [address]- 4487 Aug, [facility] [place] [facility] [address] [facility] [id number] [place] [address]- 1677 Jul, [facility] [place] [facility] [address] [facility] [id number] [place] [address]- 8871 Jul, [facility] [place] [facility] [address] [facility] [id number] [place] [address]- 5870 May, [facility] [place] [facility] [address] [facility] [id number] [place] [address]- 8207 31 May, 2013 [facility] [place] [facility] [address] [facility] [id number] [place] [address]- 5785 May, [facility] [place] [facility] [address] [facility] [id number] [place] [address]- 9311 May, [facility] [place] [facility] [address] [facility] [id number] [place] [address]- 3785 May, [facility] [place] [facility] [address] [facility] [id number] [place] [address]- 0487 May, [facility] [place] [facility] [address] [id number] [place] [address]- 2696 May, [facility] [place] [facility] [address] [id number] [place] [address]- 3559 May, [facility] [place] [facility] [address] [id number] [place] [address]- 9351 May, [facility] [place] [facility] [address] [id number] [place] [address]- 2140 May, [facility] [place] [facility] [address] [id number] [place] [address]- 9604 May, [facility] [place] [facility] [address] [id number] [place] [address]- 6602 May, [facility] [place] [facility] [address] [id number] [place] [address]- 3590 May, [facility] [place] [facility] [address] [id number] [place] [address]- 8663 May, [facility] [place] [facility] [address] [id number] [place] [address]- 2458 May, [facility] [place] [facility] [address] [id number] [place] [address]- 5095 May, [facility] [place] [facility] [address] [id number] [place] [address]- 9592 18 May, 2013 [facility] [place] [facility] [address] [id number] [place] [address]- 2919 18 May, 2013 [facility] [place] [facility] [address] [id number] [place] [address]- 4817 16 May, 2013 [facility] [place] [facility] [address] [id number] [place] [address]- 6689 16 May, 2013 [facility] [place] [facility] [address] [id number] [place] [address]- 3178 11 May, 2013 [facility] [place] [facility] [address] [id number] [place] [address]- 4095 May, [facility] [place] [facility] [address] [id number] [place] [address]- 0536 May, [facility] [place] [facility] [address] [id number] [place] [address]- 1556 May, [facility] [place] [facility] [address] [id number] [place] [address]- 0517 May, [facility] [place] [facility] [address] [id number] [place] [address]- 3611 May, [facility] [place] [facility] [address] [id number] [place] [address]- 2224 May, [facility] [place] [facility] [address] [id number] [place] [address]- 0575 May, [facility] [place] [facility] [address] [id number] [place] [address]- 6093 May, [facility] [place] [facility] [address] [id number], [place] [address]- 9344 May, [facility] [place] [facility] [address] [id number], [place] [address]- 0040 Mar, [facility] [place] [facility] [address] [id number], [place] [address]- 8149 Mar, [facility] [place] [facility] [address] [id number], [place] [address]- 3026 Mar, [facility] [place] [facility] [address] [id number], [place] [address]- 4406 Mar, [facility] [place] [facility] [address] [id number], [place] [address]- 1123 30 Mar, 2013 [facility] [place] [facility] [address] [id number], [place] [address]- 9904 Mar, [facility] [place] [facility] [address] [id number], [place] [address]- 6418 Mar, [facility] [place] [facility] [address] [id number] [place] [address]- 4245 29 Mar, 2012 [facility] [place] [facility] [address] [id number] [place] [address]- 2977 29 Mar, 2012 [facility] [place] [facility] [address] [id number] [place] [address]- 1868 28 Mar, 2013 [facility] [place] [facility] [address] [id number] [place] [address]- 3341 28 Mar, 2013 [facility] [place] [facility] [address] [id number] [place] [address]- 4433 24 Mar, 2013 [facility] [place] [facility] [address] [id number] [place] [address]- 1627 24 Mar, 2013 [facility] [place] [facility] [address] [id number] [place] [address]- 0506 23 Mar, 2013 [facility] [place] [facility] [address] [id number] [place] [address]- 7889 22 Mar, 2013 [facility] [place] [facility] [address] [id number] [place] [address]- 6310 Mar, [facility] [place] [facility] [address] [id number] [place] [address]- 7745 21 Mar, 2013 [facility] [place] [facility] [address] [id number] [place] [address]- 2386 18 Mar, 2013 [facility] [place] [facility] [address] [id number] [place] [address] 18 Mar, 2012 [facility] [place] [facility] [address] [id number], [place] [address] 18 Mar, 2012 [facility] [place] [facility] [address] [id number] [place] [address] 18 Mar, 2012 [facility] [place] [facility] [address] [id number] [place] [address] 14 Mar, 2012 [facility] [place] [facility] [address] [id number], [place] [address] 14 Mar, 2013 [facility] [place] [facility] [address] [id number] [place] [address] 10 Mar, 2013 [facility] [address] [id number] [place] [address] 18 Mar, 2013 [facility] [address] [id number] [place] [address] 12 Mar, 2013 [facility] [address] [id number] [place] [address] Mar, [facility] [address] [id number] [place] [address] Jan, [facility] [address] [id number] [place] [address] October, [facility] [address] [id number] [place] [address] Sep, [facility] [address] [id number] [place] [address] Sep, [facility] [address] [id number] [place] [address] Aug, [facility] [address] [id number] [place] [address] Aug, [facility] [address] [id number] [place] [address] Aug, [facility] [address] [id number] [place] [address] Jul, [facility] [address] [id number] [place] [address] May, [facility] [place] [facility] [address] [id number] [place] [address] May, [facility] [place] [facility] [address] [id number] [place] [address] May, [facility] [address] [id number], [place] [address] 18 May, 2012 [facility] [place] [facility] [address] [id number] [place] [address] Mar, [facility] [place] [facility] [address] [id number] [place] [address] 19 Mar, 2012 [facility] [place] [facility] [address] [id number] [place] [address]136 16 Mar, 2012 [facility] [place] [facility] [address] [id number] [place] [address] 2882 25 Mar, 2012 [facility] [place] [facility] [address] [id number] [place] [address] 5963 19 Mar, 2012 [facility] [place] [facility] [address] [id number] [place] [address] 1591 13 Mar, 2012 [facility] [place] [facility] [address] [id number] [place] [address] 07 Mar, 2012 [facility] [place] [facility] [address] [id number] [place] [address] 30 Jan, 2012 [facility] [place] [facility] [address] [id number] [place] [address] Jan, [facility] [place] [facility] [address] [id number] [place] [address] Jan, [facility] [place] [facility] [address] [id number] [place] [address] 80[address] Jan, [facility] [place] [facility] [address] [id number], [place] [address] Jan, [facility] [place] [facility] [address] [id number] [place] [address] Jan, [facility] [place] [facility] [address] [id number] [place] [address] Jan, [facility] [place] [facility] [address] [id number] [place] [address] Jan, [facility] [place] [facility] [address] [id number] [place] [address]99 Jan, [facility] [place] [facility] [address] [id number] [place] [address] Jan, [facility] [place] [facility] [address] [id number] [place] [address] Jan, [facility] [place] [facility] [address] [id number] [place] [address] Jan, [facility] [place] [facility] [address] [id number] [place] [address] Jan, [facility] [place] [facility] [address] [id number] [place] [address] Jan, [facility] [place] [facility] [address] [id number] [place] [address] Jan, [facility] [place] [facility] [address] [id number] [place] [address] 8060 Jan, [facility] [place] [facility] [address] [id number] [place] [address] Dec, [facility] [place] [facility] [address] [id number] [place] [address] Dec, [facility] [place] [facility] [address] [id number] [place] [address] Nov, [facility] [place] [facility] [address] [id number] [place] [address] Nov, [facility] [place] [facility] [address] [id number] [place] [address] October, [facility] [place] [facility] [address] [id number] [place] [address] October, [facility] [place] [facility] [address] [id number] [place] [address] October, [facility] [place] [facility] [address] [id number] [place] [address] Sep, [facility] [address] [id number] [place] [address] 18 Sep, 2011 [facility] [place] [facility] [address] [id number] [place] [address] 2811 30 Aug, 2011 [facility] [place] [facility] [address] [id number] [place] [address]- 9244 28 Aug, 2011 [facility] [place] [facility] [address] [id number] [place] [address]259 26 Aug, 2011 [facility] [place] [facility] [address] [id number] [place] [address]44 Aug, [facility] [place] [facility] [address] [id number] [place] [address]107 12 Aug, 2011 [facility] [place] [facility] [address] [id number] [place] [address] 14 Aug, 2011 [facility] [place] [facility] [address] [id number] [place] [address] 07 Aug, 2011 [facility] [place] [facility] [address] [id number] [place] [address] Jul, [facility] [place] [facility] [address] [id number] [place] [address] Jul, [facility] [place] [facility] [address] [id number] [place] [address] Jul, [facility] [place] [facility] [address] [id number] [place] [address] May, [facility] [place] [facility] [address] [id number] [place] [address] May, [facility] [place] [facility] [address] [id number] [place] [address] May, [facility] [place] [facility] [address] [id number] [place] [address] May, [facility] [place] [facility] [address] [id number] [place] [address] 13 May, 2011 [facility] [place] [facility] [address] [id number] [place] [address] 13 May, 2011 [facility] [place] [facility] [address] [id number] [place] [address] May, [facility] [place] [facility] [address] [id number] [place] [address] Mar, [facility] [place] [facility] [address] [id number] [place] [address] Mar, [facility] [place] [facility] [address] [id number] [place] [address] Mar, [facility] [place] [facility] [address] [id number] [place] [address] 15 Mar, 2011 [facility] [place] [facility] [address] [id number] [place] [address] Mar, [facility] [place] [facility] [address] [id number] [place] [address] Mar, [facility] [place] [facility] [address] [id number] [place] [address] Jan, [facility] [place] [facility] [address] [facility] [id number] [place] [address] 31 May, 2009 [facility] [place] [facility] [address] [id number] [place] [address] 16 May, 2009 [facility] [place] [facility] [address] [id number] [place] [address] 07 May, 2009 [facility] [place] [facility] [address] [id number] [place] [address] May, [facility] [place] [facility] [address] [facility] [id number] [place] [address] May, [facility] [place] [facility] [address] [id number], [place] [address] May, [facility] [address] [facility] [id number] [place] [address] Mar, [facility] [address] [facility] [id number], [place] [address] Sep, IMMUNIZATIONS No Known Immunizations SOCIAL HISTORY Never Assessed REASON FOR VISIT Controlled Med Refill 01/21/2017 PLAN OF CARE VITAL SIGNS MEDICATIONS Medication Instructions Dosage Frequency Start Date End Date Duration Status Hydrocodone-Acetaminophen 7.5-325 MG Orally twice a day 1 tablet as needed 12h Dec, 14 days Active Xanax 1 MG Orally [...]
--- OUTSIDE RECORDS SUMMARY | 2018-01-25 15:59 | XMS REPORT ---
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 [id number][place] [address]- 5365 Mar, [facility] [place] [facility] [address] [id number][place] [address]- 0229 Mar, [facility] [place] [facility] [address] [id number] [place] [address]- 8950 Mar, [facility] [place] [facility] [address] [id number] [place] [address]- 0361 24 Mar, 2014 [facility] [place] [facility] [address] [facility] [id number] [place] [address]- 0290 Mar, [facility] [place] [facility] [address] [id number] [place] [address]- 8840 Mar, [facility] [place] [facility] [address] [id number] [place] [address]- 0137 Mar, [facility] [place] [facility] [address] [id number] [place] [address]- 3946 Mar, [facility] [place] [facility] [address] [id number] [place] [address]- 6175 Jan, [facility] [place] [facility] [address] [id number] [place] [address]- 4747 Jan, [facility] [place] [facility] [address] [id number] [place] [address]- 6747 Jan, [facility] [place] [facility] [address] [id number] [place] [address]- 3615 Jan, [facility] [place] [facility] [address] [id number] [place] [address]- 5601 Jan, [facility] [place] [facility] [address] [id number] [place] [address]- 1062 Jan, [facility] [place] [facility] [address] [id number] [place] [address]- 1682 Jan, [facility] [place] [facility] [address] [id number] [place] [address]- 4883 Jan, [facility] [place] [facility] [address] [id number] [place] [address]- 1471 Jan, [facility] [place] [facility] [address] [id number] [place] [address]- 6561 Dec, [facility] [place] [facility] [address] [id number] [place] [address]- 3855 Dec, [facility] [place] [facility] [address] [id number] [place] [address]- 9961 Dec, [facility] [place] [facility] [address] [id number] [place] [address]- 8271 Dec, [facility] [place] [facility] [address] [id number] [place] [address]- 9196 Dec, [facility] [place] [facility] [address] [id number] [place] [address]- 1059 Dec, [facility] [place] [facility] [address] [id number] [place] [address]- 9369 Dec, [facility] [place] [facility] [address] [id number] [place] [address]- 1833 Dec, [facility] [place] [facility] [address] [id number] [place] [address]- 4137 Dec, [facility] [place] [facility] [address] [id number] [place] [address]- 6215 October, [facility] [place] [facility] [address] [id number] [place] [address]- 5194 October, [facility] [place] [facility] [address] [id number] [place] [address]- 6632 Sep, [facility] [place] [facility] [address] [id number] [place] [address]- 2894 Sep, [facility] [place] [facility] [address] [id number] [place] [address]- 7720 Aug, [facility] [place] [facility] [address] [id number] [place] [address]- 5664 Aug, [facility] [place] [facility] [address] [id number] [place] [address]- 0337 Aug, [facility] [place] [facility] [address] [id number] [place] [address]- 2411 Aug, [facility] [place] [facility] [address] [id number] [place] [address]- 2298 Aug, [facility] [place] [facility] [address] [id number] [place] [address]- 3703 Aug, [facility] [place] [facility] [address] [id number] [place] [address]- 4726 14 Aug, 2013 [facility] [address] [id number] [place] [address]- 0216 07 Aug, 2013 [facility] [place] [facility] [address] [id number] [place] [address] 2546 07 Aug, 2013 [facility] [place] [facility] [address] [id number] [place] [address]- 5656 Aug, 2013 [facility] [place] [facility] [address] [id number] [place] [address] 254 Aug, [facility] [place] [facility] [address] [id number] [place] [address]- 7286 Jul, [facility] [place] [facility] [address] [id number] [place] [address]- 4928 Jul, [facility] [place] [facility] [address] [id number] [place] [address]- 9762 May, [facility] [place] [facility] [address] [id number] [place] [address] 2543 May, [facility] [place] [facility] [address] [id number] [place] [address]- 7628 May, [facility] [place] [facility] [address] [facility] [id number] [place] [address]- 5694 May, [facility] [place] [facility] [address] [id number] [place] [address] 2546 May, [facility] [place] [facility] [address] [id number] [place] [address] 2548 May, [facility] [place] [facility] [address] [id number] [place] [address] 2546 May, [facility] [place] [facility] [address] [id number] [place] [address]- 2546 May, [facility] [place] [facility] [address] [id number] [place] [address]- 9453 May, [facility] [place] [facility] [address] [id number] [place] [address]- 7842 May, [facility] [place] [facility] [address] [id number] [place] [address]- 2099 May, [facility] [place] [facility] [address] [id number] [place] [address]- 9348 May, [facility] [place] [facility] [address] [id number] [place] [address]- 3419 May, [facility] [place] [facility] [address] [id number] [place] [address]- 0207 May, [facility] [place] [facility] [address] [id number] [address]- 1605 May, [facility] [place] [facility] [address] [id number] [place] [address]- 7831 May, [facility] [place] [facility] [address] [id number], [place] [address]- 6098 18 May, 2013 [facility] [place] [facility] [address] [id number] [place] [address]- 3175 18 May, 2013 [facility] [place] [facility] [address] [id number] [address]- 5645 16 May, 2013 [facility] [place] [facility] [address] [id number], [place] [address]- 4475 16 May, 2013 [facility] [place] [facility] [address] [id number], [place] [address]- 0079 11 May, 2013 [facility] [place] [facility] [address] [id number][place] [address]- 4242 May, [facility] [place] [facility] [address] [id number][place] [address]- 5533 11 May, 2013 [facility] [place] [facility] [address] [id number][place] [address]- 4913 May, [facility] [place] [facility] [address] [id number] [place] [address]- 4522 09 May, 2013 [facility] [place] [facility] [address] [id number] [place] [address]- 4553 09 May, 2013 [facility] [place] [facility] [address] [id number] [place] [address]- 5353 May, [facility] [place] [facility] [address] [id number] [place] [address]- 8656 May, [facility] [place] [facility] [address] [id number] [place] [address]- 1226 May, [facility] [place] [facility] [address] [id number] [place] [address] May, [facility] [place] [facility] [address] [id number] [place] [address] Mar, [facility] [place] [facility] [address] [id number] [place] [address] Mar, [facility] [place] [facility] [address] [id number] [place] [address] 31 Mar, 2013 [facility] [place] [facility] [address] [id number] [place] [address]284 31 Mar, 2013 [facility] [place] [facility] [address] [facility] [id number] [place] [address] 30 Mar, 2013 [facility] [place] [facility] [address] [id number] [place] [address]249 29 Mar, 2013 [facility] [place] [facility] [address] [id number] [address] 29 Mar, 2013 [facility] [place] [facility] [address] [id number] [place] [address] 7963 29 Mar, 2013 [facility] [place] [facility] [address] [id number] [place] [address] 29 Mar, 2013 [facility] [place] [facility] [address] [facility] [id number] [place] [address]69 28 Mar, 2013 [facility] [place] [facility] [address] [id number] [place] [address] 28 Mar, 2012 [facility] [place] [facility] [address] [id number] [place] [address] 8516 24 Mar, 2013 [facility] [place] [facility] [address] [id number] [place] [address]- 9679 24 Mar, 2013 [facility] [place] [facility] [address] [id number] [place] [address]- 0797 23 Mar, 2013 [facility] [place] [facility] [address] [id number] [place] [address]288 22 Mar, 2013 [facility] [place] [facility] [address] [id number] [place] [address] Mar, [facility] [place] [facility] [address] [id number] [place] [address]165 Mar, [facility] [place] [facility] [address] [id number] [place] [address] 8829 18 Mar, 2013 [facility] [place] [facility] [address] [id number] [place] [address]10 18 Mar, 2013 [facility] [place] [facility] [address] [id number] [place] [address] 6287 18 Mar, 2013 [facility] [place] [facility] [address] [id number] [place] [address]378 18 Mar, 2013 [facility] [place] [facility] [address] [id number] [place] [address]- 2215 14 Mar, 2013 [facility] [place] [facility] [address] [id number] [place] [address] 2915 14 Mar, 2013 [facility] [place] [facility] [address] [id number] [place] [address] 3146 10 Mar, 2013 [facility] [place] [facility] [address] [id number] [place] [address]- 0151 18 Mar, 2013 [facility] [place] [facility] [address] [id number] [place] [address] Mar, [facility] [address] [id number] [place] [address]169 Mar, [facility] [address] [id number] [place] [address] 84[address] Jan, [facility] [address] [id number] [place] [address] October, [facility] [address] [id number] [place] [address] Sep, [facility] [address] [id number] [place] [address] Sep, [facility] [address] [id number], [place] [address] Aug, [facility] [address] [id number] [place] [address] Aug, [facility] [address] [id number], [place] [address] Aug, [facility] [address] [id number][place] [address] Jul, [facility] [address] [id number] [place] [address] May, [facility] [address] [id number][place] [address] May, [facility] [place] [facility] [address] [id number], [place] [address] 1317 May, [facility] [place] [facility] [address] [id number], [place] [address] May, [facility] [place] [facility] [address] [facility] [id number][place] [address] Mar, [facility] [place] [facility] [address] [id number] [place] [address] Mar, [facility] [place] [facility] [address] [id number] [place] [address]- 8787 16 Mar, 2012 [facility] [place] [facility] [address] [id number] [place] [address]- 2022 25 Mar, 2011 [facility] [place] [facility] [address] [id number] [place] [address]- 1706 19 Mar, 2011 [facility] [place] [facility] [address] [id number] [place] [address]- [address]376 13 Mar, 2011 [facility] [place] [facility] [address] [id number] [place] [address] 2979 07 Mar, 2012 [facility] [place] [facility] [address] [id number] [place] [address]- [address] 30 Jan, 2012 [facility] [place] [facility] [address] [id number] [place] [address]- [address]182 28 Jan, 2012 [facility] [place] [facility] [address] [id number] [place] [address]70 Jan, [facility] [place] [facility] [address] [id number] [place] [address]- [address] 14 Jan, 2012 [facility] [place] [facility] [address] [id number] [place] [address]- [address]596 Jan, [facility] [place] [facility] [address] [id number] [place] [address]- [address] Jan, [facility] [place] [facility] [address] [id number] [place] [address] 77[address] Jan, [facility] [place] [facility] [address] [id number] [place] [address]270 Jan, [facility] [place] [facility] [address] [id number] [place] [address] 8162 Jan, [facility] [place] [facility] [address] [id number] [place] [address] Jan, [facility] [place] [facility] [address] [id number] [place] [address]- [address] Jan, [facility] [facility] [address] [id number] [place] [address] Jan, [facility] [place] [facility] [address] [id number] [place] [address] Jan, [facility] [place] [facility] [address] [id number] [place] [address] Jan, [facility] [place] [facility] [address] [id number] [place] [address] Jan, [facility] [place] [facility] [address] [id number] [place] [address] Jan, [facility] [place] [facility] [address] [id number] [place] [address] Dec, [facility] [place] [facility] [address] [id number] [place] [address] Dec, [facility] [place] [facility] [address] [id number] [place] [address] 2021 Nov, [facility] [place] [facility] [address] [id number] [place] [address] Nov, [facility] [place] [facility] [address] [id number] [place] [address] October, [facility] [place] [facility] [address] [id number] [place] [address] October, [facility] [place] [facility] [address] [id number] [place] [address] October, [facility] [place] [facility] [address] [id number] [place] [address] Sep, [facility] [place] [facility] [address] [id number] [place] [address] Sep, [facility] [place] [facility] [address] [id number] [place] [address] Aug, [facility] [place] [facility] [address] [id number] [place] [address] 28 Aug, 2011 [facility] [address] [id number] [place] [address] 26 Aug, 2011 [facility] [place] [facility] [address] [id number] [place] [address] 19 Aug, 2011 [facility] [address] [id number] [place] [address]- [address] 12 Aug, 2011 [facility] [address] [id number] [place] [address] 14 Aug, 2011 [facility] [address] [id number] [place] [address] 07 Aug, 2011 [facility] [facility] [address] [id number] [place] [address]- [address] 27 Jul, 2011 [facility] [address] [id number] [place] [address] 20 Jul, 2011 [facility] [address] [id number] [place] [address] Jul, [facility] [address] [id number] [place] [address] 28 May, 2011 [facility] [address] [id number] [place] [address]- [address] 28 May, 2011 [facility] [address] [id number] [place] [address]- [address] 21 May, 2011 [facility] [address] [id number] [place] [address] 19 May, 2011 [facility] [address] [id number] [place] [address]- [address] 13 May, 2011 [facility] [facility] [address] [id number] [place] [address] 13 May, 2011 [facility] [address] [id number] [place] [address] 22 May, 2011 [facility] [address] [id number] [place] [address] Mar, [facility] [address] [facility] [id number] [place] [address] Mar, [facility] [address] [facility] [id number] [place] [address] 19 Mar, 2011 [facility] [address] [facility] [id number] [place] [address], [place] [address] 15 Mar, 2011 [facility] [address] [id number] [place] [address] Mar, [facility] [address] [facility] [id number] [place] [address] Mar, [facility] [address] [facility] [id number] [place] [address] Jan, [facility] [address] [facility] [id number][place] [address] May, [facility] [address] [facility] [id number] [place] [address]- [address] 16 May, 2009 [facility] [address] [facility] [id number][place] [address] May, [facility] [address] [facility] [id number], [place] [address] May, [facility] [address] [facility] [id number][place] [address] May, [facility] [address] [facility] [id number] [address] May, [facility] [address] [facility] [id number][place] [address] Mar, [facility] [address] [facility] [id number] [address] 17 Sep, 2008 IMMUNIZATIONS No Known Immunizations SOCIAL HISTORY Never Assessed REASON FOR VISIT Lab (walk-in)--[facility] PLAN OF CARE VITAL SIGNS MEDICATIONS Unknown Medications RESULTS No Results PROCEDURES Procedure Date Ordered Result Body Site URINALYSIS, AUTO, W/O SCOPE Aug 06, 2017 [facility] Aug 06, 2017 VENIPUNCT, ROUTINE* Aug 06, 2017 INSTRUCTIONS MEDICATIONS ADMINISTERED No Known Medications [...]
--- OUTSIDE RECORDS SUMMARY | 2018-01-25 16:01 | XMS REPORT ---
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 [facility] [address] [id number] [place] [address]- 7273 08 Mar, 2014 [facility] [place] [facility] [address] [id number] [place] [address]- 4496 08 Mar, 2014 [facility] [place] [facility] [address] [id number] [place] [address]- 8691 Mar, [facility] [place] [facility] [address] [id number] [place] [address]- 0751 Mar, [facility] [place] [facility] [address] [id number] [place] [address]- 2972 Jan, [facility] [place] [facility] [address] [id number] [place] [address]- 4973 Jan, [facility] [place] [facility] [address] [id number] [place] [address]- 8267 Jan, [facility] [place] [facility] [address] [id number] [facility] [address]- 8445 Jan, [facility] [place] [facility] [address] [id number] [place] [address]- 3223 Jan, [facility] [place] [facility] [address] [id number] [place] [address]- 0854 Jan, [facility] [place] [facility] [address] [id number] [place] [address]- 9827 Jan, [facility] [place] [facility] [address] [id number] [place] [address]- 1987 Jan, [facility] [place] [facility] [address] [id number] [place] [address]- 0098 Jan, [facility] [place] [facility] [address] [id number] [place] [address]- 3502 Dec, [facility] [place] [facility] [address] [id number] [place] [address]- 4725 Dec, [facility] [place] [facility] [address] [id number] [place] [address]- 9096 Dec, [facility] [place] [facility] [address] [id number] [place] [address]- 6185 Dec, [facility] [place] [facility] [address] [id number] [place] [address]- 3854 Dec, [facility] [place] [facility] [address] [id number] [place] [address]- 2922 Dec, [facility] [place] [facility] [address] [id number] [place] [address]- 4488 Dec, [facility] [place] [facility] [address] [id number] [place] [address]- 8029 Dec, [facility] [place] [facility] [address] [id number] [place] [address]- 1959 Dec, [facility] [place] [facility] [address] [id number] [place] [address]- 1498 October, [facility] [place] [facility] [address] [id number] [place] [address]- 0500 October, [facility] [place] [facility] [address] [id number] [place] [address]- 1912 Sep, [facility] [place] [facility] [address] [facility] [id number] [place] [address]- 3477 Sep, [facility] [place] [facility] [address] [id number] [place] [address]- 3370 Aug, [facility] [place] [facility] [address] [id number] [place] [address]- 7469 Aug, [facility] [place] [facility] [address] [facility] [id number] [place] [address]- 9839 Aug, [facility] [place] [facility] [address] [facility] [id number] [place] [address]- 1457 Aug, [facility] [place] [facility] [address] [id number] [place] [address]- 4125 Aug, [facility] [place] [facility] [address] [facility] [id number] [place] [address]- 5402 Aug, [facility] [place] [facility] [address] [facility] [id number] [place] [address]- 4241 Aug, [facility] [place] [facility] [address] [facility] [id number], [place] [address]- 1901 Aug, [facility] [place] [facility] [address] [facility] [id number], [place] [address]- 3797 Aug, [facility] [place] [facility] [address] [facility] [id number] [place] [address]- 1984 Aug, [facility] [place] [facility] [address] [facility] [id number], [place] [address]- 9704 Aug, [facility] [place] [facility] [address] [facility] [id number], [place] [address]- 2858 Jul, [facility] [place] [facility] [address] [id number] [place] [address]- 8834 Jul, [facility] [place] [facility] [address] [id number] [place] [address]- 2852 May, [facility] [place] [facility] [address] [id number] [place] [address] 2546 May, [facility] [place] [facility] [address] [id number] [place] [address]- 4956 May, [facility] [place] [facility] [address] [id number] [place] [address] 254 May, [facility] [place] [facility] [address] [id number] [place] [address]- 6933 May, [facility] [place] [facility] [address] [id number] [place] [address]- 4860 May, [facility] [place] [facility] [address] [id number] [place] [address]- 5275 May, [facility] [place] [facility] [address] [id number] [place] [address]- 8905 May, [facility] [place] [facility] [address] [id number] [place] [address]- 1660 May, [facility] [place] [facility] [address] [id number] [place] [address]- 9269 May, [facility] [place] [facility] [address] [id number] [place] [address]- 0407 May, [facility] [place] [facility] [address] [id number] [place] [address] 2545 May, [facility] [place] [facility] [address] [id number] [place] [address] 254 May, [facility] [place] [facility] [address] [id number] [place] [address]- 2543 May, [facility] [place] [facility] [address] [id number] [place] [address]- 3188 May, [facility] [place] [facility] [address] [id number] [place] [address]- 1581 May, [facility] [place] [facility] [address] [id number], [place] [address]- 2023 May, [facility] [place] [facility] [address] [id number], [place] [address]- 7260 May, [facility] [place] [facility] [address] [id number], [place] [address]- 2605 May, [facility] [place] [facility] [address] [id number] [place] [address]- 7218 May, [facility] [place] [facility] [address] [id number], [place] [address]- 6966 May, [facility] [place] [facility] [address] [id number], [place] [address]- 1352 May, [facility] [place] [facility] [address] [id number], [place] [address]- 2202 May, [facility] [place] [facility] [address] [id number], [place] [address]- 9561 May, [facility] [place] [facility] [address] [id number], [place] [address]- 5674 May, [facility] [place] [facility] [address] [id number], [place] [address]- 5431 May, [facility] [place] [facility] [address] [id number], [place] [address]- 3791 May, [facility] [place] [facility] [address] [id number], [place] [address]- 6235 May, [facility] [place] [facility] [address] [id number], [place] [address]- 2319 May, [facility] [place] [facility] [address] [id number], [place] [address]- 7233 May, [facility] [place] [facility] [address] [id number] [place] [address]- 6405 31 Mar, 2012 [facility] [place] [facility] [address] [id number] [place] [address]- 4871 31 Mar, 2012 [facility] [place] [facility] [address] [id number] [place] [address]- 5728 31 Mar, 2012 [facility] [place] [facility] [address] [id number] [place] [address]- 9373 31 Mar, 2012 [facility] [place] [facility] [address] [id number] [place] [address]- 3768 30 Mar, 2012 [facility] [place] [facility] [address] [id number] [place] [address]- 1977 29 Mar, 2012 [facility] [place] [facility] [address] [id number] [place] [address]- 5235 29 Mar, 2012 [facility] [place] [facility] [address] [id number] [place] [address]- 3594 29 Mar, 2012 [facility] [place] [facility] [address] [id number] [place] [address]- 6704 29 Mar, 2012 [facility] [place] [facility] [address] [id number] [place] [address]- 6492 28 Mar, 2012 [facility] [place] [facility] [address] [id number] [place] [address]- 5047 28 Mar, 2012 [facility] [place] [facility] [address] [id number] [place] [address]- 9747 24 Mar, 2012 [facility] [place] [facility] [address] [id number] [place] [address]- 9351 24 Mar, 2012 [facility] [place] [facility] [address] [id number] [place] [address]- 9399 23 Mar, 2012 [facility] [place] [facility] [address] [id number] [place] [address]- 2785 22 Mar, 2012 [facility] [place] [facility] [address] [id number] [place] [address]- 6737 21 Mar, 2013 [facility] [place] [facility] [address] [id number] [place] [address]- 9227 21 Mar, 2013 [facility] [place] [facility] [address] [id number] [place] [address]- 8831 18 Mar, 2013 [facility] [place] [facility] [address] [id number] [place] [address]- 3720 18 Mar, 2013 [facility] [place] [facility] [address] [id number] [place] [address]- 2549 18 Mar, 2013 [facility] [address] [id number] [place] [address]- 9975 18 Mar, 2013 [facility] [place] [facility] [address] [id number] [place] [address]- 2428 14 Mar, 2013 [facility] [address] [id number] [place] [address]- 6917 14 Mar, 2013 [facility] [address] [id number] [place] [address]- 5563 10 Mar, 2013 [facility] [place] [facility] [address] [id number] [place] [address]- 0110 18 Mar, 2013 [facility] [place] [facility] [address] [id number] [place] [address]- 4070 12 Mar, 2013 [facility] [place] [facility] [address] [id number] [place] [address]- 6472 11 Mar, 2013 [facility] [place] [facility] [address] [id number], [place] [address]- 3936 Jan, [facility] [place] [facility] [address] [id number] [place] [address] October, [facility] [place] [facility] [address] [id number] [place] [address] 22 Sep, 2012 [facility] [place] [facility] [address] [id number] [place] [address] 15 Sep, 2012 [facility] [place] [facility] [address] [id number], [place] [address] 07 Aug, 2012 [facility] [address] [id number] [place] [address] 06 Aug, 2012 [facility] [place] [facility] [address] [id number], [place] [address] 04 Aug, 2012 [facility] [address] [facility] [id number] [place] [address] 17 Jul, 2012 [facility] [place] [facility] [address] [id number] [place] [address] 19 May, 2012 [facility] [address] [id number] [place] [address] May, [facility] [place] [facility] [address] [facility] [id number] [place] [address] 117[address] 18 May, 2012 [facility] [address] [facility] [id number], [place] [address] 18 May, 2012 [facility] [place] [facility] [address] [facility] [id number] [place] [address] 79[address] 19 Mar, 2012 [facility] [address] [facility] [id number] [place] [address]- [address] 19 Mar, 2012 [facility] [place] [facility] [address] [facility] [id number], [place] [address] 16 Mar, 2012 [facility] [address] [facility] [id number], [place] [address] 25 Mar, 2012 [facility] [place] [facility] [address] [id number], [place] [address] 19 Mar, 2012 [facility] [place] [facility] [address] [id number], [place] [address] 13 Mar, 2012 [facility] [place] [facility] [address] [facility] [id number], [place] [address] 07 Mar, 2012 [facility] [place] [facility] [address] [facility] [id number], [place] [address] 30 Jan, 2012 [facility] [place] [facility] [address] [id number] [place] [address] 80[address] Jan, [facility] [place] [facility] [address] [id number] [place] [address] 77[address] Jan, [facility] [place] [facility] [address] [id number] [place] [address]- 25[address] Jan, [facility] [place] [facility] [address] [id number] [place] [address] Jan, [facility] [place] [facility] [address] [id number] [place] [address] 57[address] Jan, [facility] [place] [facility] [address] [id number] [place] [address] Jan, [facility] [place] [facility] [address] [id number] [place] [address] 29[address] Jan, [facility] [place] [facility] [address] [id number] [place] [address] 99[address] Jan, [facility] [place] [facility] [address] [id number] [place] [address] 2810 Jan, [facility] [place] [facility] [address] [id number] [place] [address] 5867 Jan, [facility] [place] [facility] [address] [id number] [place] [address]- 9585 Jan, [facility] [place] [facility] [address] [id number] [facility] [address] Jan, [facility] [place] [facility] [address] [id number] [place] [address] 04[address] Jan, [facility] [place] [facility] [address] [id number] [place] [address]- 0969 Jan, [facility] [place] [facility] [address] [id number] [place] [address] 3264 Jan, [facility] [place] [facility] [address] [id number] [place] [address] Dec, [facility] [place] [facility] [address] [id number] [place] [address]164 Dec, [facility] [place] [facility] [address] [id number] [place] [address] 3097 Nov, [facility] [place] [facility] [address] [id number] [place] [address]- 0471 Nov, [facility] [place] [facility] [address] [id number] [place] [address]606 October, [facility] [place] [facility] [address] [id number] [place] [address] October, [facility] [place] [facility] [address] [id number] [place] [address]- 1046 October, [facility] [place] [facility] [address] [id number] [place] [address]- [address] Sep, [facility] [place] [facility] [address] [id number] [place] [address]- [address] Sep, [facility] [place] [facility] [address] [id number] [place] [address] 26[address] 30 Aug, 2011 [facility] [place] [facility] [address] [id number] [place] [address]- 4363 Aug, [facility] [place] [facility] [address] [id number] [place] [address]- [address]194 Aug, [facility] [place] [facility] [address] [id number] [place] [address]- 9686 Aug, [facility] [place] [facility] [address] [id number] [place] [address]- 6144 Aug, [facility] [place] [facility] [address] [id number] [place] [address]- 2096 14 Aug, 2011 [facility] [place] [facility] [address] [id number] [place] [address]- 2546 Aug, [facility] [place] [facility] [address] [id number] [place] [address]- 8360 27 Jul, 2011 [facility] [address] [id number] [place] [address]- [address] Jul, [facility] [address] [id number] [place] [address]- [address] 20 Jul, 2011 [facility] [address] [id number] [place] [address]- [address]32 28 May, 2011 [facility] [address] [id number] [place] [address]- 53[address] 28 May, 2011 [facility] [address] [id number] [place] [address]62 May, [facility] [address] [id number] [place] [address]- 5707 May, [facility] [address] [id number] [place] [address]- 0287 May, [facility] [address] [id number] [place] [address]- 8842 13 May, 2011 [facility] [address] [id number] [place] [address]- 8067 May, [facility] [address] [id number] [place] [address]- [address] 25 Mar, 2011 [facility] [address] [id number] [place] [address] 20 Mar, 2011 [facility] [address] [id number] [place] [address] 19 Mar, 2011 [facility] [address] [id number] [place] [address] 15 Mar, 2011 [facility] [address] [id number] [place] [address] 27 Mar, 2010 [facility] [address] [id number] [place] [address] 13 Mar, 2010 [facility] [id number] [address] Jan, [facility] [id number] [address] May, [facility] [id number] [address] May, [facility] [id number] [address] May, [facility] [id number], [place] [address] May, [facility] [id number], [place] [address] May, [facility] [id number], [place] [address] May, [facility] [id number], [place] [address] Mar, [facility] [id number], [place] [address] Sep, IMMUNIZATIONS No Known Immunizations SOCIAL HISTORY Never Assessed REASON FOR VISIT Controlled Med Refill- 05/29/17 PLAN OF CARE VITAL SIGNS MEDICATIONS Medication Instructions Dosage Frequency Start Date End Date Duration Status Hydrocodone-Acetaminophen 7.5-325 MG Orally twice a day 1 tablet as needed 12h May, 28 days Active Xanax 1 MG Orally 3 [...]
--- OUTSIDE RECORDS SUMMARY | 2018-01-25 16:02 | XMS REPORT ---
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 [address]- 1413 May, [facility] [place] [facility] [address] [id number] [place] [address]- 3896 May, [facility] [place] [facility] [address] [id number] [place] [address]- 5687 May, [facility] [place] [facility] [address] [id number] [place] [address]- 7532 May, [facility] [place] [facility] [address] [id number] [place] [address]- 1226 May, [facility] [place] [facility] [address] [id number] [place] [address]- 3796 May, [facility] [place] [facility] [address] [id number] [place] [address]- 1155 May, [facility] [place] [facility] [address] [id number], [place] [address]- 3572 May, [facility] [place] [facility] [address] [id number], [place] [address]- 4996 May, [facility] [place] [facility] [address] [id number], [place] [address]- 3347 May, [facility] [place] [facility] [address] [id number], [place] [address]- 7742 May, [facility] [place] [facility] [address] [id number], [place] [address]- 9809 May, [facility] [place] [facility] [address] [id number], [place] [address]- 0939 May, [facility] [place] [facility] [address] [id number], [place] [address]- 0444 May, [facility] [place] [facility] [address] [id number] [place] [address]- 7855 Mar, [facility] [place] [facility] [address] [id number] [place] [address]- 7575 Mar, [facility] [place] [facility] [address] [id number] [place] [address]- 2190 Mar, [facility] [place] [facility] [address] [id number] [place] [address]- 5718 Mar, [facility] [place] [facility] [address] [id number] [place] [address]- 1931 Mar, [facility] [place] [facility] [address] [id number] [place] [address]- 4087 Mar, [facility] [place] [facility] [address] [id number] [place] [address]- 9269 Mar, [facility] [place] [facility] [address] [id number] [place] [address]- 2484 Mar, [facility] [place] [facility] [address] [id number] [place] [address]- 2994 24 Mar, 2014 [facility] [place] [facility] [address] [id number] [place] [address]- 9494 24 Mar, 2014 [facility] [place] [facility] [address] [id number] [place] [address]- 4287 08 Mar, 2014 [facility] [place] [facility] [address] [id number], [place] [address]- 8607 08 Mar, 2013 [facility] [place] [facility] [address] [id number] [place] [address]- 9385 03 Mar, 2014 [facility] [place] [facility] [address] [facility] [id number] [place] [address]- 6038 Mar, 2013 [facility] [place] [facility] [address] [facility] [id number] [place] [address]- 1030 Jan, [facility] [place] [facility] [address] [id number] [place] [address]- 7523 Jan, [facility] [place] [facility] [address] [id number] [place] [address]- 4365 Jan, [facility] [place] [facility] [address] [id number] [place] [address]- 0056 Jan, [facility] [place] [facility] [address] [id number] [place] [address]- 3592 Jan, [facility] [place] [facility] [address] [id number] [place] [address]- 0885 Jan, [facility] [place] [facility] [address] [id number] [place] [address]- 7540 Jan, [facility] [place] [facility] [address] [id number] [place] [address]- 0987 Jan, [facility] [place] [facility] [address] [id number] [place] [address]- 2341 Jan, [facility] [place] [facility] [address] [id number] [facility] [place] [address]- 2354 Dec, [facility] [place] [facility] [address] [id number] [facility] [place] [address]- 2541 Dec, [facility] [place] [facility] [address] [id number] [place] [address]- 9352 Dec, [facility] [place] [facility] [address] [id number] [place] [address]- 1294 Dec, [facility] [place] [facility] [address] [id number] [place] [address]- 9106 Dec, [facility] [place] [facility] [address] [id number] [place] [address]- 9391 Dec, [facility] [place] [facility] [address] [id number] [place] [address]- 1045 Dec, [facility] [place] [facility] [address] [id number] [place] [address]- 1170 Dec, [facility] [place] [facility] [address] [id number] [place] [address]- 0173 Dec, [facility] [place] [facility] [address] [id number] [place] [address]- 3082 October, [facility] [place] [facility] [address] [id number] [place] [address]- 4285 October, [facility] [place] [facility] [address] [id number] [place] [address]- 6681 Sep, [facility] [place] [facility] [address] [id number] [place] [address]- 1485 Sep, [facility] [place] [facility] [address] [id number] [place] [address]- 4975 Aug, [facility] [place] [facility] [address] [id number] [place] [address]- 8220 Aug, [facility] [place] [facility] [address] [id number] [place] [address]- 9389 Aug, [facility] [place] [facility] [address] [id number] [place] [address]- 0546 Aug, [facility] [place] [facility] [address] [id number] [place] [address]- 5581 Aug, [facility] [place] [facility] [address] [id number] [place] [address]- 0270 Aug, [facility] [place] [facility] [address] [id number] [place] [address]- 8690 14 Aug, 2013 [facility] [place] [facility] [address] [id number] [place] [address]- 5972 07 Aug, 2013 [facility] [place] [facility] [address] [id number] [place] [address]- 7647 07 Aug, 2013 [facility] [place] [facility] [address] [id number] [place] [address]- 7448 04 Aug, 2013 [facility] [place] [facility] [address] [id number] [place] [address]- 4005 Aug, [facility] [address] [id number] [place] [address]- 5379 Jul, [facility] [place] [facility] [address] [id number] [place] [address]- 2696 Jul, [facility] [address] [id number] [place] [address]- 4141 May, [facility] [place] [facility] [address] [id number] [place] [address]- 4433 May, [facility] [place] [facility] [address] [id number] [place] [address]- 2585 May, [facility] [place] [facility] [address] [id number] [place] [address]- 2609 May, [facility] [place] [facility] [address] [id number] [place] [address]- 7731 May, [facility] [place] [facility] [address] [id number] [place] [address]- 2543 May, [facility] [place] [facility] [address] [id number] [place] [address]- 3473 May, [facility] [place] [facility] [address] [id number] [place] [address]- 3330 May, [facility] [place] [facility] [address] [id number] [place] [address]- 4992 May, [facility] [place] [facility] [address] [id number] [place] [address]- 254 May, [facility] [place] [facility] [address] [id number] [place] [address]- 4880 May, [facility] [place] [facility] [address] [id number] [place] [address]- 1458 May, [facility] [place] [facility] [address] [id number] [place] [address]- 2038 May, [facility] [place] [facility] [address] [id number] [place] [address]- 0009 May, [facility] [place] [facility] [address] [id number] [place] [address]- 0430 May, [facility] [place] [facility] [address] [id number] [place] [address]- 7804 May, [facility] [place] [facility] [address] [id number], [place] [address]- 1091 May, [facility] [place] [facility] [address] [id number] [place] [address]- 7319 May, [facility] [place] [facility] [address] [id number] [place] [address]- 4815 16 May, 2013 [facility] [place] [facility] [address] [id number] [place] [address]- 4582 May, [facility] [place] [facility] [address] [id number], [place] [address]- 3352 May, [facility] [place] [facility] [address] [id number], [place] [address]- 2232 May, [facility] [place] [facility] [address] [id number], [place] [address]- 5349 May, [facility] [place] [facility] [address] [id number], [place] [address]- 1450 May, [facility] [place] [facility] [address] [id number], [place] [address]- 7641 May, [facility] [place] [facility] [address] [id number], [place] [address]- 1449 May, [facility] [place] [facility] [address] [id number], [place] [address]- 2817 May, [facility] [place] [facility] [address] [id number], [place] [address]- 2342 May, [facility] [place] [facility] [address] [id number] [place] [address]- 5346 May, [facility] [place] [facility] [address] [id number] [place] [address]- 8119 May, [facility] [place] [facility] [address] [id number] [place] [address]- 2156 Mar, [facility] [place] [facility] [address] [id number] [place] [address]- 2185 Mar, 2012 [facility] [place] [facility] [address] [id number] [place] [address]- 1746 Mar, [facility] [place] [facility] [address] [id number] [place] [address]- 5655 Mar, [facility] [place] [facility] [address] [id number] [place] [address]- 0078 30 Mar, 2013 [facility] [place] [facility] [address] [id number] [place] [address]- 8559 Mar, [facility] [place] [facility] [address] [id number] [place] [address]- 8729 Mar, [facility] [place] [facility] [address] [id number] [place] [address]- 9242 Mar, [facility] [place] [facility] [address] [id number] [place] [address]- 5376 Mar, [facility] [place] [facility] [address] [id number] [place] [address] Mar, [facility] [place] [facility] [address] [id number] [place] [address] Mar, [facility] [place] [facility] [address] [id number] [place] [address] Mar, [facility] [place] [facility] [address] [id number] [place] [address] Mar, [facility] [place] [facility] [address] [id number], [place] [address] Mar, [facility] [place] [facility] [address] [id number] [place] [address] 22 Mar, 2013 [facility] [place] [facility] [address] [id number] [place] [address] Mar, [facility] [place] [facility] [address] [id number] [place] [address] Mar, [facility] [place] [facility] [address] [id number] [place] [address] 18 Mar, 2013 [facility] [place] [facility] [address] [id number] [place] [address] 18 Mar, 2013 [facility] [place] [facility] [address] [id number] [place] [address]- [address]199 18 Mar, 2013 [facility] [place] [facility] [address] [id number] [place] [address] 18 Mar, 2013 [facility] [place] [facility] [address] [id number] [place] [address] 14 Mar, 2013 [facility] [place] [facility] [address] [id number] [place] [address]- [address] 14 Mar, 2013 [facility] [place] [facility] [address] [id number] [place] [address] 10 Mar, 2013 [facility] [place] [facility] [address] [id number] [place] [address] 9038 18 Mar, 2013 [facility] [place] [facility] [address] [id number] [place] [address]- [address] 12 Mar, 2013 [facility] [place] [facility] [address] [id number] [place] [address] Mar, [facility] [place] [facility] [address] [id number] [place] [address] Jan, [facility] [place] [facility] [address] [id number] [place] [address] October, [facility] [place] [facility] [address] [id number], [place] [address] 22 Sep, 2012 [facility] [address] [id number] [place] [address] 15 Sep, 2012 [facility] [address] [id number] [place] [address] 7636 07 Aug, 2012 [facility] [address] [facility] [id number] [place] [address] 06 Aug, 2012 [facility] [address] [id number], [place] [address] 04 Aug, 2012 [facility] [address] [id number] [place] [address] 17 Jul, 2012 [facility] [address] [id number] [place] [address] 1412 19 May, 2012 [facility] [address] [id number], [place] [address] 19 May, 2012 [facility] [address] [id number], [place] [address] 18 May, 2012 [facility] [address] [facility] [id number], [place] [address] 18 May, 2012 [facility] [address] [facility] [id number], [place] [address] 19 Mar, 2012 [facility] [address] [facility] [id number], [place] [address]279 19 Mar, 2012 [facility] [place] [facility] [address] [facility] [id number], [place] [address] 8779 16 Mar, 2012 [facility] [place] [facility] [address] [id number], [place] [address] 25 Sep2011 [facility] [place] [facility] [address] [id number][place]- [address] 19 Sep2011 [facility] [place] [facility] [address] [facility] [id number], [place] [address]- [address] 13 Sep2011 [facility] [place] [facility] [address] [id number] [place] [address] 07 Mar, 2012 [facility] [place] [facility] [address] [id number] [place] [address]- [address] Jan, [facility] [place] [facility] [address] [id number] [place] [address]- 3536 Jan, [facility] [place] [facility] [address] [id number] [place] [address]- [address]35 Jan, 2011 [facility] [place] [facility] [address] [id number] [place] [address]255 Jan, [facility] [place] [facility] [address] [id number] [place] [address]- 8961 Jan, [facility] [place] [facility] [address] [id number] [place] [address] Jan, [facility] [place] [facility] [address] [id number] [place] [address]- 49[address] Jan, [facility] [place] [facility] [address] [id number] [place] [address]- 8963 Jan, [facility] [place] [facility] [address] [id number] [place] [address] Jan, [facility] [place] [facility] [address] [id number] [place] [address]- [address] Jan, [facility] [place] [facility] [address] [id number] [place] [address]- 487[address] Jan, [facility] [place] [facility] [address] [id number] [place] [address]- [address] Jan, [facility] [place] [facility] [address] [id number] [place] [address]- 6025 Jan, [facility] [place] [facility] [address] [id number] [place] [address]- 8206 Jan, [facility] [place] [facility] [address] [id number] [place] [address]- 9348 Jan, [facility] [place] [facility] [address] [id number] [place] [address]- 5166 Jan, [facility] [place] [facility] [address] [id number] [place] [address]- 40[address] Dec, [facility] [place] [facility] [address] [id number] [place] [address]- 8264 Dec, [facility] [place] [facility] [address] [id number] [place] [address]- 9473 Nov, [facility] [place] [facility] [address] [id number] [place] [address]- 1235 Nov, [facility] [place] [facility] [address] [id number] [place] [address]- [address]18 October, [facility] [place] [facility] [address] [id number] [place] [address]- 1030 October, [facility] [place] [facility] [address] [id number] [place] [address]- 7969 October, [facility] [place] [facility] [address] [id number] [place] [address]- [address] Sep, [facility] [place] [facility] [address] [id number] [place] [address]- 4069 Sep, [facility] [place] [facility] [address] [id number] [place] [address]- 8799 Aug, [facility] [place] [facility] [address] [id number] [place] [address]- 9697 Aug, [facility] [place] [facility] [address] [id number] [place] [address]- [address]125 Aug, [facility] [place] [facility] [address] [id number] [place] [address] Aug, [facility] [place] [facility] [address] [id number] [place] [address] Aug, [facility] [place] [facility] [address] [id number] [place] [address] 14 Aug, 2011 [facility] [place] [facility] [address] [id number] [place] [address] 07 Aug, 2011 [facility] [place] [facility] [address] [id number] [place] [address] 27 Jul, 2011 [facility] [place] [facility] [address] [id number] [place] [address] Jul, [facility] [place] [facility] [address] [id number] [place] [address] Jul, [facility] [place] [facility] [address] [id number] [place] [address] May, [facility] [place] [facility] [address] [id number] [place] [address] May, [facility] [place] [facility] [address] [id number] [place] [address] May, [facility] [place] [facility] [address] [id number] [place] [address] May, [facility] [place] [facility] [address] [id number] [place] [address] May, [facility] [place] [facility] [address] [facility] [id number] [place] [address] May, [facility] [place] [facility] [address] [id number] [place] [address] May, [facility] [place] [facility] [address] [id number] [place] [address] 25 Mar, 2011 [facility] [place] [facility] [address] [id number] [place] [address] 20 Mar, 2011 [facility] [place] [facility] [address] [id number] [place] [address] 19 Mar, 2011 [facility] [place] [facility] [address] [id number] [place] [address] 15 Mar, 2011 [facility] [place] [facility] [id number] [place] [address] Mar, [facility] [place] [facility] [id number] [place] [address] Mar, [facility] [place] [facility] [id number] [place] [address] Jan, [facility] [place] [facility] [id number] [address] [address] May, [facility] [place] [facility] [id number] [address] [address] May, [facility] [place] [facility] [id number] [place] [address] May, [facility] [place] [facility] [id number], [place] [address] May, [facility] [place] [facility] [id number], [place] [address] May, [facility] [place] [facility] [id number], [place] [address] May, [facility] [place] [facility] [id number] [place] [address] Mar, [facility] [place] [facility] [id number] [place] [address] Sep, IMMUNIZATIONS No Known Immunizations SOCIAL HISTORY Never Assessed REASON FOR VISIT FYI only PLAN OF CARE VITAL SIGNS MEDICATIONS Unknown [...]
--- OUTSIDE RECORDS SUMMARY | 2018-01-25 16:03 | XMS REPORT ---
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 [address] [id number] [place] [address]- 5306 Mar, [facility] [place] [facility] [address] [id number] [place] [address]- 0226 Mar, [facility] [place] [facility] [address] [id number] [place] [address]- 6120 Mar, [facility] [place] [facility] [address] [id number] [place] [address]- 2238 Mar, [facility] [place] [facility] [address] [id number] [place] [address]- 2525 Mar, [facility] [place] [facility] [address] [id number] [place] [address]- 8660 24 Mar, 2014 [facility] [place] [facility] [address] [id number] [place] [address]- 5494 08 Mar, 2014 [facility] [place] [facility] [address] [id number] [place] [address]- 0447 08 Mar, 2014 [facility] [place] [facility] [address] [id number] [place] [address]- 6457 03 Mar, 2014 [facility] [place] [facility] [address] [id number] [place] [address]- 1905 Mar, [facility] [place] [facility] [address] [id number] [place] [address]- 1528 Jan, [facility] [place] [facility] [address] [id number] [place] [address]- 1103 Jan, [facility] [place] [facility] [address] [id number] [place] [address]- 2639 Jan, [facility] [place] [facility] [address] [id number] [place] [address]- 0997 Jan, [facility] [place] [facility] [address] [id number] [place] [address]- 3298 Jan, [facility] [place] [facility] [address] [id number] [place] [address]- 1371 Jan, [facility] [place] [facility] [address] [id number] [place] [address]- 8226 Jan, [facility] [place] [facility] [address] [id number] [place] [address]- 0448 Jan, [facility] [place] [facility] [address] [id number] [place] [address]- 8328 Jan, [facility] [place] [facility] [address] [id number] [place] [address]- 3425 Dec, [facility] [place] [facility] [address] [id number] [place] [address]- 5890 Dec, [facility] [place] [facility] [address] [id number] [place] [address]- 5067 Dec, [facility] [place] [facility] [address] [id number] [place] [address]- 8710 Dec, [facility] [place] [facility] [address] [id number] [place] [address]- 3549 Dec, [facility] [place] [facility] [address] [id number] [place] [address]- 9532 Dec, [facility] [place] [facility] [address] [id number] [place] [address]- 4395 Dec, [facility] [place] [facility] [address] [id number] [place] [address]- 0394 Dec, [facility] [place] [facility] [address] [id number] [place] [address]- 8986 Dec, [facility] [place] [facility] [address] [id number] [place] [address]- 4230 October, [facility] [place] [facility] [address] [id number] [place] [address]- 2907 October, [facility] [place] [facility] [address] [id number] [place] [address]- 1466 Sep, [facility] [place] [facility] [address] [id number] [place] [address]- 2886 Sep, [facility] [place] [facility] [address] [id number] [place] [address]- 2390 Aug, [facility] [place] [facility] [address] [id number] [place] [address]- 6956 Aug, [facility] [place] [facility] [address] [id number] [place] [address]- 1899 Aug, [facility] [place] [facility] [address] [id number] [place] [address]- 6411 Aug, [facility] [place] [facility] [address] [id number] [place] [address]- 8018 17 Aug, 2013 [facility] [place] [facility] [address] [id number] [place] [address]- 9666 17 Aug, 2013 [facility] [place] [facility] [address] [id number] [place] [address]- 3506 14 Aug, 2013 [facility] [place] [facility] [address] [id number] [place] [address]- 2546 07 Aug, 2013 [facility] [place] [facility] [address] [id number] [place] [address]- 5970 Aug, [facility] [place] [facility] [address] [id number] [place] [address]- 5962 Aug, [facility] [place] [facility] [address] [id number] [place] 9362 Aug, [facility] [place] [facility] [address] [facility] [id number] [place]95 Jul, [facility] [place] [facility] [address] [id number] [place] [address]- 7077 Jul, [facility] [place] [facility] [address] [id number] [place] [address]- 8812 May, [facility] [place] [facility] [address] [id number] [place] [address]- 5787 May, [facility] [place] [facility] [address] [id number] [place] [address]- 9441 May, [facility] [place] [facility] [address] [id number] [place] [address]- 7296 May, [facility] [place] [facility] [address] [id number] [place] [address]- 2215 May, [facility] [place] [facility] [address] [facility] [id number] [place] [address]- 5655 May, [facility] [place] [facility] [address] [id number] [place] [address]- 6932 May, [facility] [place] [facility] [address] [id number] [place] [address]- 0320 May, [facility] [place] [facility] [address] [id number] [place] [address]- 6514 May, [facility] [place] [facility] [address] [facility] [id number] [place] [address]- 0707 May, [facility] [place] [facility] [address] [facility] [id number] [place] [address]- 6299 May, [facility] [place] [facility] [address] [id number] [place] [address]- 2862 20 May, 2013 [facility] [address] [id number] [place] [address]- 2054 May, [facility] [address] [id number] [place] [address]- 6649 20 May, 2013 [facility] [address] [id number] [place] [address]- 0444 May, [facility] [address] [id number] [place] [address]- 2586 19 May, 2013 [facility] [address] [id number] [place] [address]- 2663 18 May, 2013 [facility] [address] [id number] [place] [address]- 6454 18 May, 2013 [facility] [address] [id number] [place] [address]- 5504 16 May, 2013 [facility] [address] [id number] [place] [address]- 3472 16 May, 2013 [facility] [address] [id number] [place] [address]- 2862 May, [facility] [address] [id number] [place] [address]- 6551 May, [facility] [place] [facility] [address] [id number] [place] [address]- 6677 May, [facility] [address] [id number] [place] [address]- 6386 May, [facility] [place] [facility] [address] [id number] [place] [address]- 8722 May, [facility] [place] [facility] [address] [id number] [place] [address]- 9473 May, [facility] [place] [facility] [address] [id number] [place] [address]- 5815 May, [facility] [place] [facility] [address] [id number] [place] [address]- 7712 May, [facility] [place] [facility] [address] [id number] [place] [address]- 8823 May, [facility] [place] [facility] [address] [id number] [place] [address]- 5377 May, [facility] [place] [facility] [address] [id number] [place] [address]- 7563 Mar, [facility] [place] [facility] [address] [id number] [place] [address]- 6649 Mar, [facility] [place] [facility] [address] [id number] [place] [address]- 7987 Mar, [facility] [place] [facility] [address] [id number] [place] [address]- 5012 Mar, [facility] [place] [facility] [address] [id number], [place] [address]- 9607 30 Mar, 2013 [facility] [place] [facility] [address] [id number], [place] [address]- 5817 Mar, [facility] [place] [facility] [address] [id number], [place] [address]- 1537 Mar, [facility] [place] [facility] [address] [id number], [place] [address]- 6298 Mar, [facility] [place] [facility] [address] [id number], [place] [address]- 9979 29 Mar, 2013 [facility] [place] [facility] [address] [id number], [place] [address]- 1164 Mar, [facility] [place] [facility] [address] [id number], [place] [address]- 4107 Mar, [facility] [place] [facility] [address] [id number], [place] [address]- 8868 24 Mar, 2013 [facility] [place] [facility] [address] [id number], [place] [address]- 6744 24 Mar, 2013 [facility] [place] [facility] [address] [id number] [place] [address]- 9238 23 Mar, 2013 [facility] [place] [facility] [address] [id number] [place] [address]- 1924 22 Mar, 2013 [facility] [place] [facility] [address] [id number] [place] [address]- 8560 21 Mar, 2013 [facility] [place] [facility] [address] [id number] [place] [address]- 1141 21 Mar, 2013 [facility] [place] [facility] [address] [id number] [place] [address] 74[address] 18 Mar, 2013 [facility] [place] [facility] [address] [id number] [place] [address] 1254 18 Mar, 2013 [facility] [place] [facility] [address] [id number] [place] [address] 7669 18 Mar, 2013 [facility] [place] [facility] [address] [id number] [place] [address] 1225 18 Mar, 2013 [facility] [place] [facility] [address] [id number] [place] [address] 45[address] 14 Mar, 2013 [facility] [place] [facility] [address] [id number] [place] [address] 2853 14 Mar, 2013 [facility] [place] [facility] [address] [id number], [place] [address] 10 Mar, 2013 [facility] [place] [facility] [address] [id number], [place] [address] 1147 18 Mar, 2013 [facility] [place] [facility] [address] [id number] [place] [address]- 8428 12 Mar, 2013 [facility] [place] [facility] [address] [id number] [place] [address]- 2277 11 Mar, 2013 [facility] [place] [facility] [address] [id number] [place] [address]- 3240 26 Jan, 2013 [facility] [place] [facility] [address] [id number] [place] [address] 28[address] October, [facility] [place] [facility] [address] [id number] [place] [address] Sep, [facility] [place] [facility] [address] [id number] [place] [address]- [address] Sep, [facility] [place] [facility] [address] [id number] [place] [address] 6427 07 Aug, 2012 [facility] [place] [facility] [address] [id number] [place] [address]- [address]40 Aug, [facility] [place] [facility] [id number] [place] [address], [place] [address]- [address] 04 Aug, 2012 [facility] [place] [facility] [address] [id number] [place] [address] Jul, [facility] [place] [facility] [address] [id number] [place] [address] 9095 May, [facility] [place] [facility] [address] [id number] [place] [address] May, [facility] [place] [facility] [address] [facility] [id number] [place] [address]- 0126 18 May, 2012 [facility] [place] [facility] [address] [id number] [place] [address]- 5076 18 May, 2012 [facility] [place] [facility] [address] [id number] [place] [address]- [address] Mar, [facility] [place] [facility] [address] [id number] [place] [address] 19 Mar, 2012 [facility] [place] [facility] [address] [id number] [place] [address]- 2360 16 Mar, 2012 [facility] [place] [facility] [address] [id number] [place] [address]- 8640 25 Mar, 2012 [facility] [place] [facility] [address] [id number] [place] [address]- 5802 19 Mar, 2012 [facility] [place] [facility] [address] [id number] [place] [address]- 9471 13 Mar, 2012 [facility] [place] [facility] [address] [id number] [place] [address]- [address]105 Mar, [facility] [place] [facility] [address] [id number] [place] [address]307 30 Jan, 2012 [facility] [place] [facility] [address] [id number] [place] [address]- 455[address] Jan, [facility] [place] [facility] [address] [id number] [place] [address]- [address]458 Jan, [facility] [place] [facility] [address] [id number] [place] [address] 21[address] Jan, [facility] [place] [facility] [address] [id number] [place] [address]- 0011 Jan, [facility] [place] [facility] [address] [id number] [place] [address]- 4517 Jan, [facility] [place] [facility] [address] [id number] [place] [address]- 5748 Jan, [facility] [place] [facility] [address] [id number] [place] [address]- 6869 Jan, [facility] [place] [facility] [address] [id number] [place] [address] 9994 Jan, [facility] [place] [facility] [address] [id number] [place] [address]- 8442 Jan, [facility] [place] [facility] [address] [id number] [place] [address]- 9445 Jan, [facility] [place] [facility] [address] [id number] [place] [address]- 2439 Jan, [facility] [place] [facility] [address] [id number] [place] [address]- 9371 Jan, [facility] [place] [facility] [address] [id number] [place] [address]- 1391 Jan, [facility] [address] [id number] [place] [address]- 6745 Jan, [facility] [address] [id number] [place] [address] 2832 Jan, [facility] [address] [id number] [place] [address]- 5978 Dec, [facility] [address] [id number] [place] [address] 46[address] Dec, [facility] [address] [id number] [place] [address] 7254 Nov, [facility] [address] [id number] [place] [address] 9741 Nov, [facility] [address] [id number] [place] [address] 9632 October, [facility] [address] [id number] [place] [address]- 8127 October, [facility] [address] [id number] [place] [address]- 5104 October, [facility] [address] [id number] [place] [address]- 0198 Sep, [facility] [address] [id number] [place] [address]- 2803 Sep, [facility] [address] [id number] [place] [address]- 0234 30 Aug, 2011 [facility] [place] [facility] [address] [id number] [place] [address]- 0764 28 Aug, 2011 [facility] [place] [facility] [address] [id number] [place] [address] 8356 Aug, [facility] [address] [id number] [place] [address]- 7620 Aug, [facility] [place] [facility] [address] [id number] [place] [address]- 4429 12 Aug, 2011 [facility] [place] [facility] [address] [id number] [place] [address]- 8786 14 Aug, 2011 [facility] [place] [facility] [address] [id number] [place] [address]- 4486 07 Aug, 2011 [facility] [place] [facility] [address] [id number] [place] [address]- 5804 Jul, [facility] [place] [facility] [address] [id number] [place] [address]- 9706 Jul, [facility] [place] [facility] [address] [id number] [place] [address] Jul, [facility] [place] [facility] [address] [id number] [place] [address] 28 May, 2011 [facility] [place] [facility] [address] [id number] [place] [address] 28 May, 2011 [facility] [place] [facility] [address] [id number] [place] [address] May, [facility] [place] [facility] [address] [id number], [place] [address] May, [facility] [place] [facility] [address] [id number], [place] [address] May, [facility] [place] [facility] [address] [id number], [place] [address] May, [facility] [place] [facility] [address] [id number] [place] [address] May, [facility] [place] [facility] [address] [id number], [place] [address] 25 Mar, 2011 [facility] [place] [facility] [address] [id number], [place] [address] Mar, [facility] [place] [facility] [address] [id number], [place] [address] Mar, [facility] [id number] [address] 15 Mar, 2011 [facility] [id number] [address] Mar, [facility] [id number] [address] Mar, [facility] [id number] [place] [address] Jan, [facility] [id number] [place] [address] May, [facility] [address] [id number] [address] May, [facility] [id number] [place] [address] May, [facility] [id number] [address] May, [facility] [id number] [address] May, [facility] [id number] [place] [address] May, [facility] [id number], [place] [address] Mar, [facility] [id number] [address] Sep, IMMUNIZATIONS Vaccine Route Administration Date Status DEXAMETHASONE 4MG/ML (PER 1 MG) IM Intramuscular May 04, 2017 Administered DEPO MEDROL 40 MG/ML IM Intramuscular May 04, 2017 Administered SOCIAL HISTORY Never Assessed REASON FOR VISIT sore throat/fever, nausea and headache x1 week JStrasserRN PLAN OF CARE Activity Details Follow Up prn Reason: VITAL SIGNS Height 64 in 2017-05-04 Weight 127.8 lbs 2017-05-04 Temperature 97.9 degrees Fahrenheit 2017-05-04 Heart Rate 86 bpm 2017-05-04 Respiratory Rate 18 2017-05-04 BMI 21.93 kg/m2 2017-05-04 Blood pressure systolic 112 mmHg 2017-05-04 Blood pressure diastolic 74 mmHg 2017-05-04 MEDICATIONS Medication Instructions Dosage Frequency Start Date End Date Duration Status Azithromycin 250 MG Orally Once a day 2 tablets on the first day, then 1 tablet daily for 4 days 24h Active Albuterol Sulfate (2.5 MG/3ML) 0.083% Inhalation Three times a day 3 ml 8h Aug, Active Flonase 50 MCG/ACT Nasally Once a day 1 spray in each nostril 24h May, 30 day(s) Active Singulair 10 MG Orally Once a day 1 tablet in the evening 24h Active Omeprazole 40 MG Orally Once a day 1 capsule 24h 90 days Active Toviaz 4 MG Orally Once a day 1 tablet 24h October, 90 days Active Fluticasone Propionate 50 MCG/ACT Nasally twice a day 1 spray in each nostril 12h Mar, 30 day(s) Active Topamax 25 MG Orally Twice a day 3 tablet 12h Nov, 30 days Active EpiPen 2-David 0.3 MG/0.3ML Injection repeat in 20 minutes Inject into thigh at first signs of anaphylaxis October, 30 days Active Advair Diskus 250-50 MCG/DOSE Inhalation Twice a day 1 puff 12h Sep, Active Lexapro 20 mg Orally Once a day 2 tablets 24h 90 days Active Zyrtec Allergy 10 MG Orally Once a day 1 tablet 24h May, May, 30 day(s) Active Hydrocodone-Acetaminophen 7.5-325 MG Orally twice a day 1 tablet as needed 12h May, 28 days Active Flonase 50 MCG/ACT Nasally twice a day 1 spray in each nostril 12h Jan, 30 day(s) Active Xanax 1 MG Orally 3 times a day 1 tablet 8h Aug, 28 days Active Ventolin HFA 108 (90 Base) MCG/ACT Inhalation every 4 hrs 2 puffs as needed 4h Aug, Active RESULTS Name Result Date Reference Range STREP A (IN HOUSE) 2017-05-04 STREP A negative Control + Lot # [id number] Exp date 03/30/2018 PROCEDURES Procedure Date Ordered Result Body Site DEPO MEDROL 40 MG/ML May 04, 2017 DEXAMETHASONE 4MG/ML (PER 1 MG) May 04, 2017 THER/PROPH/DIAG INJ, SC/IM May 04, 2017 STREP A ASSAY W/OPTIC May 04, 2017 INSTRUCTIONS MEDICATIONS ADMINISTERED No Known [...]
--- OUTSIDE RECORDS SUMMARY | 2018-01-25 16:04 | XMS REPORT ---
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 [place] [address]- 2555 May, [facility] [place] [facility] [address] [id number] [place] [address]- 0522 May, [facility] [place] [facility] [address] [id number] [place] [address]- 4341 May, [facility] [place] [facility] [address] [id number] [place] [address]- 8795 May, [facility] [place] [facility] [address] [id number] [place] [address]- 3518 May, [facility] [place] [facility] [address] [id number] [place] [address]- 7419 May, [facility] [place] [facility] [address] [id number] [place] [address]- 7886 May, [facility] [place] [facility] [address] [id number] [place] [address]- 2466 Mar, [facility] [place] [facility] [address] [id number] [place] [address]- 9451 Mar, [facility] [place] [facility] [address] [id number] [place] [address]- 8056 Mar, [facility] [place] [facility] [address] [id number] [place] [address]- 9829 Mar, [facility] [place] [facility] [address] [id number] [place] [address]- 4701 Mar, [facility] [place] [facility] [address] [id number] [place] [address]- 4032 Mar, [facility] [place] [facility] [address] [id number] [place] [address]- 5350 Mar, [facility] [place] [facility] [address] [id number] [place] [address]- 5097 Mar, [facility] [place] [facility] [address] [id number] [place] [address]- 6675 Mar, 2013 [facility] [place] [facility] [address] [id number] [place] [address]- 4672 Mar, [facility] [place] [facility] [address] [id number] [place] [address]- 2252 Mar, 2013 [facility] [place] [facility] [address] [id number] [place] [address]- 5060 Mar, [facility] [place] [facility] [address] [id number] [place] [address]- 3977 Mar, [facility] [place] [facility] [address] [id number] [place] [address]- 5920 Mar, [facility] [place] [facility] [address] [id number] [place] [address]- 1038 Jan, [facility] [place] [facility] [address] [id number] [place] [address]- 2817 Jan, [facility] [place] [facility] [address] [id number] [place] [address]- 3064 Jan, [facility] [place] [facility] [address] [id number] [place] [address]- 7689 Jan, [facility] [place] [facility] [address] [id number] [place] [address]- 8435 Jan, [facility] [place] [facility] [address] [id number] [place] [address]- 4261 Jan, [facility] [place] [facility] [address] [id number] [place] [address]- 1614 Jan, [facility] [place] [facility] [address] [id number] [place] [address]- 8084 Jan, [facility] [place] [facility] [address] [id number] [place] [address]- 9977 Jan, [facility] [place] [facility] [address] [id number] [place] [address]- 0271 Dec, [facility] [place] [facility] [address] [id number] [place] 1291 Dec, [facility] [place] [facility] [address] [id number] [place] [address]- 9386 Dec, [facility] [place] [facility] [address] [id number] [place] [address]- 1530 Dec, [facility] [place] [facility] [address] [id number] [place] [address]- 8470 Dec, [facility] [place] [facility] [address] [id number] [place] [address]- 2655 Dec, [facility] [place] [facility] [address] [id number] [place] [address]- 5686 Dec, [facility] [place] [facility] [address] [id number] [place] [address]- 5638 Dec, [facility] [place] [facility] [address] [id number] [place] [address]- 1050 Dec, [facility] [place] [facility] [address] [id number] [place] [address]- 7142 October, [facility] [place] [facility] [address] [id number] [place] [address]- 2063 October, [facility] [place] [facility] [address] [id number] [place] [address]- 1172 Sep, [facility] [place] [facility] [address] [id number] [place] [address]- 0541 Sep, [facility] [place] [facility] [address] [id number] [place] [address]- 0126 Aug, [facility] [place] [facility] [address] [id number] [place] [address]- 2456 Aug, [facility] [place] [facility] [address] [id number] [place] [address]- 9964 Aug, [facility] [place] [facility] [address] [id number] [place] [address]- 7017 Aug, [facility] [place] [facility] [address] [id number] [place] [address]- 9756 Aug, [facility] [place] [facility] [address] [facility] [id number] [place] [address]- 7566 Aug, [facility] [place] [facility] [address] [id number] [place] [address]- 1300 Aug, [facility] [place] [facility] [address] [id number] [place] [address]- 1352 Aug, [facility] [place] [facility] [address] [facility] [id number] [place] [address]- 3241 Aug, [facility] [place] [facility] [address] [facility] [id number] [place] [address]- 8577 Aug, [facility] [place] [facility] [address] [facility] [id number] [place] [address]- 2739 Aug, [facility] [place] [facility] [address] [facility] [id number] [place] [address]- 2868 Jul, [facility] [place] [facility] [address] [facility] [id number] [place] [address]- 3899 Jul, [facility] [place] [facility] [address] [facility] [id number] [place] [address]- 4238 May, [facility] [place] [facility] [address] [facility] [id number] [place] [address]- 7764 May, [facility] [place] [facility] [address] [facility] [id number] [place] [address]- 8109 May, [facility] [place] [facility] [address] [facility] [id number] [place] [address]- 6241 May, [facility] [place] [facility] [address] [facility] [id number] [place] [address]- 3097 May, [facility] [place] [facility] [address] [id number] [place] [address]- 0500 May, [facility] [place] [facility] [address] [id number] [place] [address]- 3388 May, [facility] [place] [facility] [address] [id number] [place] [address]- 6672 May, [facility] [place] [facility] [address] [id number] [place] [address]- 2856 May, [facility] [place] [facility] [address] [id number] [place] [address]- 5637 May, [facility] [place] [facility] [address] [id number] [place] [address]- 5800 May, [facility] [place] [facility] [address] [id number] [place] [address]- 4565 May, [facility] [place] [facility] [address] [id number] [place] [address]- 7071 May, [facility] [place] [facility] [address] [id number] [place] [address]- 7073 May, [facility] [place] [facility] [address] [id number] [place] [address]- 9338 May, [facility] [place] [facility] [address] [id number] [place] [address]- 3414 May, [facility] [place] [facility] [address] [id number] [place] [address]- 5810 May, [facility] [place] [facility] [address] [id number] [place] [address]- 5032 18 May, 2013 [facility] [place] [facility] [address] [id number] [place] [address]- 1331 16 May, 2013 [facility] [place] [facility] [address] [id number] [place] [address]- 8706 16 May, 2013 [facility] [place] [facility] [address] [id number] [place] [address]- 3068 May, [facility] [place] [facility] [address] [id number] [place] [address]- 8439 May, [facility] [place] [facility] [address] [id number] [place] [address]- 4944 May, [facility] [place] [facility] [address] [id number] [place] [address]- 8994 May, [facility] [place] [facility] [address] [id number] [place] [address]- 0348 May, [facility] [place] [facility] [address] [id number] [place] [address]- 9188 May, [facility] [place] [facility] [address] [id number] [place] [address]- 8417 May, [facility] [place] [facility] [address] [id number] [place] [address]- 1431 May, [facility] [place] [facility] [address] [id number] [place] [address]- 3846 May, [facility] [place] [facility] [address] [id number] [place] [address]- 2151 May, [facility] [place] [facility] [address] [id number] [place] [address]- 5462 Mar, [facility] [place] [facility] [address] [id number] [place] [address]- 7070 Mar, [facility] [place] [facility] [address] [id number] [place] [address]- 6654 Mar, [facility] [place] [facility] [address] [id number] [place] [address]- 9673 Mar, [facility] [place] [facility] [address] [id number] [address]- 0606 30 Mar, 2013 [facility] [place] [facility] [address] [id number] [place] [address]- 1782 29 Mar, 2013 [facility] [place] [facility] [address] [id number] [place] [address]- 5715 29 Mar, 2012 [facility] [place] [facility] [address] [id number] [place] [address]- 7190 29 Mar, 2012 [facility] [place] [facility] [address] [id number] [place] [address]- 8453 29 Mar, 2013 [facility] [place] [facility] [address] [id number] [place] [address]- 0845 28 Mar, 2012 [facility] [place] [facility] [address] [id number] [place] [address]- 7653 28 Mar, 2013 [facility] [place] [facility] [address] [id number] [place] [address]- 0365 24 Mar, 2013 [facility] [place] [facility] [address] [id number] [place] [address]- 6276 24 Mar, 2013 [facility] [place] [facility] [address] [id number] [place] [address]- 9901 Mar, [facility] [place] [facility] [address] [id number] [place] [address]- 8566 22 Mar, 2013 [facility] [place] [facility] [address] [id number] [place] [address]- 1892 Mar, [facility] [place] [facility] [address] [id number] [place] [address]- 3053 Mar, [facility] [place] [facility] [address] [id number] [place] [address]- 0396 18 Mar, 2013 [facility] [place] [facility] [address] [id number] [place] [address]- 6696 18 Mar, 2012 [facility] [place] [facility] [address] [id number] [place] [address]- 5765 18 Mar, 2013 [facility] [place] [facility] [address] [id number] [place] [address]- 1483 18 Mar, 2012 [facility] [place] [facility] [address] [id number] [place] [address]- 8060 14 Mar, 2013 [facility] [place] [facility] [address] [id number] [place] [address]- 9714 14 Mar, 2013 [facility] [address] [id number] [place] [address]- 7565 10 Mar, 2013 [facility] [address] [id number] [place] [address]- 0219 18 Mar, 2013 [facility] [place] [facility] [address] [id number] [place] [address] 12 Mar, 2013 [facility] [address] [id number] [place] [address] Mar, [facility] [address] [id number] [place] [address] Jan, [facility] [address] [id number] [place] [address] October, [facility] [address] [id number] [place] [address] Sep, [facility] [address] [id number] [place] [address] Sep, [facility] [address] [id number] [place] [address] Aug, [facility] [address] [id number] [place] [address] Aug, [facility] [address] [id number] [address] Aug, [facility] [place] [facility] [address] [id number] [place] [address] Jul, [facility] [place] [facility] [address] [id number] [place] [address] May, [facility] [place] [facility] [address] [id number] [place] [address] May, [facility] [place] [facility] [address] [id number] [place] [address] May, [facility] [place] [facility] [address] [id number] [place] [address] 18 May, 2012 [facility] [place] [facility] [address] [id number] [place] [address]- [address] Mar, [facility] [place] [facility] [address] [id number] [place] [address] 19 Mar, 2012 [facility] [place] [facility] [address] [id number] [place] [address] 16 Mar, 2012 [facility] [place] [facility] [address] [id number] [place] [address] 25 Mar, 2012 [facility] [place] [facility] [address] [id number] [place] [address] 19 Mar, 2012 [facility] [place] [facility] [address] [id number] [place] [address] 13 Mar, 2012 [facility] [place] [facility] [address] [id number] [place] [address] 07 Mar, 2012 [facility] [place] [facility] [address] [id number] [place] [address]- [address] 30 Jan, 2012 [facility] [place] [facility] [address] [id number] [place] [address]- [address] Jan, [facility] [place] [facility] [address] [id number] [place] [address] Jan, [facility] [place] [facility] [address] [id number] [place] [address] Jan, [facility] [place] [facility] [address] [id number] [place] [address] Jan, [facility] [place] [facility] [address] [id number] [place] [address] Jan, [facility] [place] [facility] [address] [id number] [place] [address]- [address] Jan, [facility] [place] [facility] [address] [id number] [place] [address] Jan, [facility] [place] [facility] [address] [id number] [place] [address] Jan, [facility] [place] [facility] [address] [id number] [place] [address] 1496 Jan, [facility] [place] [facility] [address] [id number] [place] [address]- [address] Jan, [facility] [place] [facility] [address] [id number] [place] [address] Jan, [facility] [place] [facility] [address] [id number] [place] [address] Jan, [facility] [place] [facility] [address] [id number] [place] [address] Jan, [facility] [place] [facility] [address] [id number] [place] [address] Jan, [facility] [place] [facility] [address] [id number] [place] [address] Jan, [facility] [place] [facility] [address] [id number] [place] [address] Dec, [facility] [place] [facility] [address] [id number] [place] [address] Dec, [facility] [place] [facility] [address] [id number] [place] [address] Nov, [facility] [place] [facility] [address] [id number] [place] [address] Nov, [facility] [place] [facility] [address] [id number] [place] [address] October, [facility] [place] [facility] [address] [id number] [place] [address] October, [facility] [place] [facility] [address] [id number] [place] [address] October, [facility] [address] [id number] [place] [address]- [address] Sep, [facility] [place] [facility] [address] [id number] [place] [address] 37[address] Sep, [facility] [place] [facility] [address] [id number] [place] [address]- [address] 30 Aug, 2011 [facility] [place] [facility] [address] [id number] [place] [address]- [address] Aug, [facility] [place] [facility] [address] [id number] [place] [address]- 8987 Aug, [facility] [place] [facility] [address] [id number] [place] [address]- 47[address] Aug, [facility] [place] [facility] [address] [id number] [place] [address]- [address] Aug, [facility] [place] [facility] [address] [id number] [place] [address]- [address] Aug, [facility] [place] [facility] [address] [id number] [place] [address]- [address] Aug, [facility] [place] [facility] [address] [id number] [place] [address]- [address] Jul, [facility] [place] [facility] [address] [id number] [place] [address] Jul, [facility] [place] [facility] [address] [id number] [place] [address] Jul, [facility] [place] [facility] [address] [id number] [place] [address]- 90[address] May, [facility] [place] [facility] [address] [id number] [place] [address]- [address] May, [facility] [place] [facility] [address] [id number] [place] [address]99 May, [facility] [place] [facility] [address] [id number] [place] [address] 19 May, 2011 [facility] [place] [facility] [address] [id number] [place] [address] May, [facility] [place] [facility] [address] [id number] [place] [address] May, [facility] [place] [facility] [address] [id number] [place] [address]- [address] May, [facility] [place] [facility] [address] [id number] [place] [address]- [address] 25 Mar, 2011 [facility] [place] [facility] [address] [id number] [place] [address]- [address] Mar, [facility] [place] [facility] [address] [id number] [place] [address]- [address] Mar, [facility] [place] [facility] [address] [id number] [place] [address] 15 Mar, 2011 [facility] [place] [facility] [address] [id number] [place] [address] 27 Mar, 2010 [facility] [place] [facility] [address] [id number] [place] [address] Mar, [facility] [place] [facility] [address] [facility] [id number] [place] [address] Jan, [facility] [place] [facility] [address] [id number] [place] [address] 31 May, 2009 [facility] [place] [facility] [address] [id number] [place] [address] 16 May, 2009 [facility] [place] [facility] [address] [id number] [place] [address] 07 May, 2009 [facility] [place] [facility] [address] [id number] [place] [address] May, [facility] [place] [facility] [address] [id number] [place] [address] May, [facility] [address] [facility] [id number] [place] [id number] May, [facility] [address] [facility] [id number] [place] [address] Mar, [facility] [address] [facility] [id number] [place] [address] Sep, IMMUNIZATIONS No Known Immunizations SOCIAL HISTORY Never Assessed REASON FOR VISIT Refill request PLAN OF CARE VITAL SIGNS MEDICATIONS Unknown [...]
--- OUTSIDE RECORDS SUMMARY | 2018-01-25 16:05 | XMS REPORT ---
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 [facility] [address] [id number] [place] [address]- 4075 08 Mar, 2013 [facility] [place] [facility] [address] [id number] [place] [address]- 1434 Mar, 2013 [facility] [place] [facility] [address] [id number] [place] [address]- 3970 Mar, [facility] [place] [facility] [address] [id number] [place] [address]- 3851 Jan, [facility] [place] [facility] [address] [id number] [place] [address]- 8511 Jan, [facility] [place] [facility] [address] [id number] [facility] [address]- 6366 Jan, [facility] [place] [facility] [address] [id number] [place] [address]- 3866 Jan, [facility] [place] [facility] [address] [id number] [place] [address]- 1184 Jan, [facility] [place] [facility] [address] [id number] [place] [address]- 8411 Jan, [facility] [place] [facility] [address] [id number] [place] [address]- 1154 Jan, [facility] [place] [facility] [address] [id number] [place] [address]- 8380 Jan, [facility] [place] [facility] [address] [id number] [place] [address]- 3191 Jan, [facility] [place] [facility] [address] [id number] [place] [address]- 4967 Dec, [facility] [place] [facility] [address] [id number] [place] [address]- 3822 Dec, [facility] [place] [facility] [address] [id number] [place] [address]- 3573 Dec, [facility] [place] [facility] [address] [id number] [place] [address]- 6338 Dec, [facility] [place] [facility] [address] [id number] [place] [address]- 1252 Dec, [facility] [place] [facility] [address] [id number] [facility] [address]- 7698 Dec, [facility] [place] [facility] [address] [id number] [place] [address]- 6786 Dec, [facility] [place] [facility] [address] [id number] [place] [address]- 0868 Dec, [facility] [place] [facility] [address] [id number] [place] [address]- 5017 Dec, [facility] [place] [facility] [address] [id number] [place] [address]- 3480 October, [facility] [place] [facility] [address] [id number] [place] [address]- 4083 October, [facility] [place] [facility] [address] [facility] [id number] [place] [address]- 5040 Sep, [facility] [place] [facility] [address] [id number] [place] [address]- 5237 Sep, [facility] [place] [facility] [address] [id number] [place] [address]- 4056 Aug, [facility] [place] [facility] [address] [facility] [id number] [place] [address]- 9442 Aug, [facility] [place] [facility] [address] [facility] [id number] [place] [address]- 2089 Aug, [facility] [place] [facility] [address] [facility] [id number] [place] [address]- 8778 Aug, [facility] [place] [facility] [address] [facility] [id number] [place] [address]- 1086 Aug, [facility] [place] [facility] [address] [facility] [id number] [place] [address]- 8268 Aug, [facility] [place] [facility] [address] [facility] [id number] [place] [address]- 7128 14 Aug, 2013 [facility] [place] [facility] [address] [facility] [id number] [address]- 2479 Aug, [facility] [place] [facility] [address] [facility] [id number] [place] [address]- 4305 07 Aug, 2013 [facility] [place] [facility] [address] [facility] [id number] [place] [address]- 1103 Aug, [facility] [place] [facility] [address] [facility] [id number] [place] [address]- 5737 Aug, [facility] [place] [facility] [address] [id number] [place] [address]- 4942 Jul, [facility] [place] [facility] [address] [id number] [place] [address]- 5283 Jul, [facility] [place] [facility] [address] [id number] [place] [address]- 0393 May, [facility] [place] [facility] [address] [id number] [place] [address]- 5814 May, [facility] [place] [facility] [address] [id number] [place] [address] 2543 May, [facility] [place] [facility] [address] [id number] [place] [address]- 9390 May, [facility] [place] [facility] [address] [id number] [place] [address]- 3275 May, [facility] [place] [facility] [address] [id number] [place] [address]- 4411 May, [facility] [place] [facility] [address] [id number] [place] [address]- 5758 May, [facility] [place] [facility] [address] [id number] [place] [address]- 2230 May, [facility] [place] [facility] [address] [id number] [place] [address]- 0622 May, [facility] [place] [facility] [address] [id number] [place] [address]- 1629 May, [facility] [place] [facility] [address] [id number] [place] [address]- 6984 May, [facility] [place] [facility] [address] [id number] [place] [address] 2542 May, [facility] [place] [facility] [address] [id number] [place] [address]- 254 May, [facility] [place] [facility] [address] [id number] [place] [address]- 1878 May, [facility] [place] [facility] [address] [id number] [place] [address]- 1435 May, [facility] [place] [facility] [address] [id number] [place] [address]- 0232 May, [facility] [place] [facility] [address] [facility] [id number] [place] [address]- 3331 May, [facility] [place] [facility] [address] [id number] [place] [address]- 2103 May, [facility] [place] [facility] [address] [id number] [place] [address]- 3993 May, [facility] [place] [facility] [address] [id number] [address]- 3377 May, [facility] [place] [facility] [address] [id number] [place] [address]- 5644 May, [facility] [place] [facility] [address] [id number] [place] [address]- 8716 May, [facility] [place] [facility] [address] [id number] [place] [address]- 1265 May, [facility] [place] [facility] [address] [id number] [place] [address]- 6024 May, [facility] [place] [facility] [address] [id number] [place] [address]- 3803 May, [facility] [place] [facility] [address] [id number] [place] [address]- 6455 May, [facility] [place] [facility] [address] [id number] [place] [address]- 8821 May, [facility] [place] [facility] [address] [id number] [place] [address]- 1812 May, [facility] [place] [facility] [address] [id number] [place] [address]- 8589 May, [facility] [place] [facility] [address] [id number] [place] [address]- 8290 May, [facility] [place] [facility] [address] [id number] [place] [address]- 2847 Mar, 2012 [facility] [place] [facility] [address] [id number] [place] [address]- 0128 Mar, 2012 [facility] [place] [facility] [address] [id number] [place] [address]- 8877 Mar, 2012 [facility] [place] [facility] [address] [id number] [place] [address]- 9235 Mar, 2012 [facility] [place] [facility] [address] [id number] [place] [address]- 0655 30 Mar, 2012 [facility] [place] [facility] [address] [id number] [place] [address]- 7309 Mar, 2012 [facility] [place] [facility] [address] [id number] [place] [address]- 4030 Mar, 2012 [facility] [place] [facility] [address] [id number] [place] [address] Mar, [facility] [place] [facility] [address] [id number] [place] [address] Mar, [facility] [place] [facility] [address] [id number] [place] [address] Mar, [facility] [place] [facility] [address] [id number] [place] [address] Mar, [facility] [place] [facility] [address] [id number] [place] [address] Mar, [facility] [place] [facility] [address] [id number] [place] [address] 24 Mar, 2013 [facility] [place] [facility] [address] [id number] [place] [address]255 Mar, 2012 [facility] [place] [facility] [address] [id number] [place] [address] Mar, [facility] [place] [facility] [address] [id number] [place] [address] Mar, [facility] [place] [facility] [address] [id number] [place] [address] 21 Mar, 2013 [facility] [place] [facility] [address] [id number] [place] [address] 18 Mar, 2013 [facility] [place] [facility] [address] [id number] [place] [address] 18 Mar, 2013 [facility] [address] [id number] [place] [address] 18 Mar, 2013 [facility] [place] [facility] [address] [id number] [place] [address]27 18 Mar, 2013 [facility] [address] [id number] [place] [address] 14 Mar, 2013 [facility] [place] [facility] [address] [id number] [place] [address] 14 Mar, 2013 [facility] [place] [facility] [address] [id number] [place] [address] 10 Mar, 2013 [facility] [place] [facility] [address] [id number] [place] [address]- [address]098 18 Mar, 2013 [facility] [place] [facility] [address] [id number] [place] [address]- [address] 12 Mar, 2013 [facility] [place] [facility] [address] [id number] [place] [address] Mar, [facility] [place] [facility] [address] [id number] [place] [address] Jan, [facility] [place] [facility] [address] [id number] [place] [address] October, [facility] [place] [facility] [address] [id number] [place] [address] Sep, [facility] [place] [facility] [address] [id number] [place] [address] 15 Sep, 2012 [facility] [address] [id number] [place] [address] 07 Aug, 2012 [facility] [address] [facility] [id number] [place] [address] 06 Aug, 2012 [facility] [address] [facility] [id number] [place] [address] 04 Aug, 2012 [facility] [address] [facility] [id number] [place] [address] 17 Jul, 2012 [facility] [address] [facility] [id number] [place] [address] 388[address] 19 May, 2012 [facility] [address] [facility] [id number] [place] [address]64 19 May, 2012 [facility] [address] [facility] [id number] [place] [address] 18 May, 2012 [facility] [address] [facility] [id number] [place] [address] 18 May, 2012 [facility] [address] [facility] [id number] [place] [address] 19 Mar, 2012 [facility] [address] [facility] [id number] [place] [address] 3927 19 Mar, 2012 [facility] [address] [facility] [id number] [place] [address] 16 Mar, 2012 [facility] [place] [facility] [address] [facility] [id number] [place] [address] 1561 25 Mar, 2012 [facility] [place] [facility] [address] [id number] [place] [address] 45[address] 19 Sep2011 [facility] [place] [facility] [address] [facility] [id number] [place] [address]- 0707 13 Sep2011 [facility] [place] [facility] [address] [facility] [id number] [place] [address] 07 Sep, 2011 [facility] [place] [facility] [address] [id number] [place] [address] Jan, [facility] [place] [facility] [address] [id number] [place] [address] 6[address] Jan, [facility] [place] [facility] [address] [id number] [place] [address]- [address]46 Jan, [facility] [place] [facility] [address] [id number] [place] [address]- 9136 Jan, [facility] [place] [facility] [address] [id number] [place] [address]- [address] Jan, [facility] [place] [facility] [address] [id number] [place] [address]- [address]9 Jan, [facility] [place] [facility] [address] [id number] [place] [address]- 0116 Jan, [facility] [place] [facility] [address] [id number] [place] [address]- 6715 Jan, [facility] [place] [facility] [address] [id number] [place] [address]- [address]597 Jan, [facility] [place] [facility] [address] [id number] [place] [address]- 1671 Jan, [facility] [place] [facility] [address] [id number] [place] [address] 7037 Jan, [facility] [place] [facility] [address] [id number] [place] [address]- 0581 Jan, [facility] [place] [facility] [address] [id number] [place] [address]- 3982 Jan, [facility] [place] [facility] [address] [id number] [place] [address]- 6526 Jan, [facility] [place] [facility] [address] [id number] [place] [address]- 3700 Jan, [facility] [place] [facility] [address] [id number] [place] [address]- [address] Jan, [facility] [place] [facility] [address] [id number] [place] [address]- 1381 Dec, [facility] [place] [facility] [address] [id number] [place] [address]- 5566 Dec, [facility] [place] [facility] [address] [id number] [place] [address]- 7736 Nov, [facility] [place] [facility] [address] [id number] [place] [id number] Nov, [facility] [place] [facility] [address] [id number] [place] [address] October, [facility] [place] [facility] [address] [id number] [place] [address] October, [facility] [place] [facility] [address] [id number] [place] [address] October, [facility] [place] [facility] [address] [id number] [place] [address] Sep, [facility] [place] [facility] [address] [id number] [place] [address] Sep, [facility] [place] [facility] [address] [id number] [place] [address] Aug, [facility] [place] [facility] [address] [id number] [place] [address] Aug, [facility] [place] [facility] [address] [id number] [address] Aug, [facility] [place] [facility] [address] [id number] [place] [address] Aug, [facility] [place] [facility] [address] [id number] [place] [address] Aug, [facility] [place] [facility] [address] [id number] [place] [address] Aug, [facility] [place] [facility] [address] [id number] [place] [address] 07 Aug, 2011 [facility] [address] [id number] [place] [address] Jul, [facility] [address] [id number] [place] [address] Jul, [facility] [address] [id number] [place] [address] Jul, [facility] [address] [id number] [place] [address] May, [facility] [address] [id number] [place] [address] May, [facility] [address] [id number] [place] [address] May, [facility] [address] [id number] [place] [address] May, [facility] [address] [id number] [place] [address] May, [facility] [address] [id number] [place] [address] May, [facility] [address] [id number] [place] [address] May, [facility] [address] [id number] [place] [address] 25 Mar, 2011 [facility] [address] [id number] [place] [address] Mar, [facility] [place] [facility] [address] [id number] [place] [address] 19 Mar, 2011 [facility] [place] [facility] [address] [id number] [place] [address] 15 Mar, 2011 [facility] [address] [id number] [place] [address] Mar, [facility] [address] [id number] [address] Mar, [facility] [id number] [address] Jan, [facility] [id number] [address] May, [facility] [id number] [address] [address] May, [facility] [id number] [address] May, [facility] [id number] [address] May, [facility] [id number] [place] [address] May, [facility] [id number] [address] May, [facility] [id number] [address] Mar, [facility] [address] [id number] [address] Sep, IMMUNIZATIONS No Known Immunizations SOCIAL HISTORY Never Assessed REASON FOR VISIT med refill PLAN OF CARE VITAL SIGNS MEDICATIONS Medication Instructions Dosage Frequency Start Date End Date Duration Status Toviaz 4 MG Orally Once a day 1 tablet 24h October, 90 days Active Ventolin HFA 108 (90 Base) MCG/ACT Inhalation every 4 hrs 2 puffs as needed 4h Aug, Active RESULTS No Results PROCEDURES No [...]
--- OUTSIDE RECORDS SUMMARY | 2018-01-25 16:06 | XMS REPORT ---
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 [place] [address]- 1377 Mar, [facility] [place] [facility] [address] [id number] [place] [address]- 4338 Mar, [facility] [place] [facility] [address] [facility] [id number] [place] [address]- 5478 Mar, [facility] [place] [facility] [address] [id number] [address]- 3012 Mar, [facility] [place] [facility] [address] [id number] [place] [address]- 0820 Mar, [facility] [place] [facility] [address] [id number] [place] [address]- 7626 Mar, [facility] [place] [facility] [address] [id number] [place] [address]- 4754 24 Mar, 2014 [facility] [place] [facility] [address] [facility] [id number] [place] [address]- 9308 Mar, [facility] [place] [facility] [address] [id number] [place] [address]- 3066 Mar, [facility] [place] [facility] [address] [id number] [place] [address]- 5158 Mar, [facility] [place] [facility] [address] [id number] [place] [address]- 1936 Mar, [facility] [place] [facility] [address] [id number] [place] [address]- 9977 Jan, [facility] [place] [facility] [address] [id number] [place] [address]- 3202 Jan, [facility] [place] [facility] [address] [id number] [place] [address]- 4106 Jan, [facility] [place] [facility] [address] [id number] [place] [address]- 6063 Jan, [facility] [place] [facility] [address] [id number] [place] [address]- 7386 Jan, [facility] [place] [facility] [address] [id number] [place] [address]- 4265 Jan, [facility] [place] [facility] [address] [id number] [place] [address]- 1608 Jan, [facility] [place] [facility] [address] [id number] [place] [address]- 3513 Jan, [facility] [place] [facility] [address] [id number] [place] [address]- 2179 Jan, [facility] [place] [facility] [address] [id number] [place] [address]- 3990 Dec, [facility] [place] [facility] [address] [id number] [place] [address]- 1005 Dec, [facility] [place] [facility] [address] [id number] [place] [address]- 9945 Dec, [facility] [place] [facility] [address] [id number] [place] [address]- 4773 Dec, [facility] [place] [facility] [address] [id number] [place] [address]- 5395 Dec, [facility] [place] [facility] [address] [id number] [place] [address]- 2831 Dec, [facility] [place] [facility] [address] [id number] [place] [address]- 2782 Dec, [facility] [place] [facility] [address] [id number] [place] [address]- 7313 Dec, [facility] [place] [facility] [address] [id number] [place] [address]- 9563 Dec, [facility] [place] [facility] [address] [id number] [place] [address]- 5769 October, [facility] [place] [facility] [address] [id number] [place] [address]- 9090 October, [facility] [place] [facility] [address] [id number] [place] [address]- 5952 Sep, [facility] [place] [facility] [address] [id number] [place] [address]- 9346 Sep, [facility] [place] [facility] [address] [id number] [place] [address]- 9124 Aug, [facility] [place] [facility] [address] [id number] [place] [address]- 8420 Aug, [facility] [place] [facility] [address] [id number] [place] [address]- 4059 Aug, [facility] [place] [facility] [address] [id number] [place] [address]- 6440 Aug, [facility] [place] [facility] [address] [id number] [place] [address]- 1998 Aug, [facility] [place] [facility] [address] [id number] [place] [address]- 0673 Aug, [facility] [place] [facility] [address] [id number] [place] [address]- 4826 14 Aug, 2013 [facility] [address] [id number] [place] [address]- 1926 07 Aug, 2013 [facility] [place] [facility] [address] [id number] [place] [address] 2546 07 Aug, 2013 [facility] [place] [facility] [address] [id number] [place] [address]- 5006 Aug, 2013 [facility] [place] [facility] [address] [id number] [place] [address] 2547 Aug, [facility] [place] [facility] [address] [id number] [place] [address]- 1566 Jul, [facility] [place] [facility] [address] [id number] [place] [address]- 8880 Jul, [facility] [place] [facility] [address] [id number] [place] [address]- 2278 May, [facility] [place] [facility] [address] [id number] [place] [address] 2548 May, [facility] [place] [facility] [address] [id number] [place] [address]- 7553 May, [facility] [place] [facility] [address] [facility]] [id number] [place] [address]- 7061 May, [facility] [place] [facility] [address] [id number] [place] [address] 2546 May, [facility] [place] [facility] [address] [id number] [place] [address] 254 May, [facility] [place] [facility] [address] [id number] [place] [address] 2546 May, [facility] [place] [facility] [address] [id number] [place] [address]- 2546 May, [facility] [place] [facility] [address] [id number] [place] [address]- 3314 May, [facility] [place] [facility] [address] [id number] [place] [address]- 7672 May, [facility] [place] [facility] [address] [id number] [place] [address]- 6448 May, [facility] [place] [facility] [address] [id number] [place] [address]- 8246 May, [facility] [place] [facility] [address] [id number] [place] [address]- 9358 May, [facility] [place] [facility] [address] [id number] [place] [address]- 9865 May, [facility] [place] [facility] [address] [id number] [place] [address]- 8223 May, [facility] [place] [facility] [address] [id number] [place] [address]- 5117 May, [facility] [place] [facility] [address] [id number] [place] [address]- 6757 18 May, 2013 [facility] [place] [facility] [address] [id number] [place] [address]- 5325 18 May, 2013 [facility] [place] [facility] [address] [id number] [place] [address]- 6530 16 May, 2013 [facility] [place] [facility] [address] [id number] [place] [address]- 1812 16 May, 2013 [facility] [place] [facility] [address] [id number] [place] [address]- 8159 11 May, 2013 [facility] [place] [facility] [address] [id number] [place] [address]- 4535 May, [facility] [place] [facility] [address] [id number] [place] [address]- 4694 11 May, 2013 [facility] [place] [facility] [address] [id number] [place] [address]- 3607 May, [facility] [place] [facility] [address] [id number] [place] [address]- 9088 09 May, 2013 [facility] [place] [facility] [address] [id number] [place] [address]- 0709 09 May, 2013 [facility] [place] [facility] [address] [id number] [place] [address]- 1376 May, [facility] [place] [facility] [address] [id number] [place] [address]- 4725 May, [facility] [place] [facility] [address] [id number] [place] [address]- 4384 May, [facility] [place] [facility] [address] [id number] [place] [address]- 9438 May, [facility] [place] [facility] [address] [id number] [place] [address]- 4845 Mar, [facility] [place] [facility] [address] [id number] [place] [address]- 8058 Mar, [facility] [place] [facility] [address] [id number] [place] [address]- 6836 31 Mar, 2013 [facility] [place] [facility] [address] [id number] [place] [address]- 6010 31 Mar, 2013 [facility] [place] [facility] [address] [facility] [id number] [place] [address]- 7883 30 Mar, 2013 [facility] [place] [facility] [address] [id number] [place] [address]- 9008 29 Mar, 2013 [facility] [place] [facility] [address] [id number] [place] [address]- 5881 29 Mar, 2013 [facility] [place] [facility] [address] [id number] [place] [address]- 8222 29 Mar, 2013 [facility] [place] [facility] [address] [id number] [place] [address]- 7314 29 Mar, 2013 [facility] [place] [facility] [address] [facility]] [id number] [place] [address]- 1219 28 Mar, 2013 [facility] [place] [facility] [address] [id number] [place] [address]- 9893 28 Mar, 2012 [facility] [place] [facility] [address] [id number] [place] [address]- 5867 24 Mar, 2013 [facility] [place] [facility] [address] [id number] [place] [address]- 6255 24 Mar, 2013 [facility] [place] [facility] [address] [id number] [place] [address]- 8862 23 Mar, 2013 [facility] [place] [facility] [address] [id number] [place] [address]- 0150 22 Mar, 2013 [facility] [place] [facility] [address] [id number] [place] [address] Mar, [facility] [place] [facility] [address] [id number] [place] [address] Mar, [facility] [place] [facility] [address] [id number] [place] [address] 18 Mar, 2013 [facility] [place] [facility] [address] [id number] [place] [address] 18 Mar, 2013 [facility] [place] [facility] [address] [id number] [place] [address] 18 Mar, 2013 [facility] [place] [facility] [address] [id number] [place] [address]- [address] 18 Mar, 2013 [facility] [place] [facility] [address] [id number] [place] [address] 14 Mar, 2013 [facility] [place] [facility] [address] [id number] [place] [address]233 14 Mar, 2013 [facility] [place] [facility] [address] [id number] [place] [address] 3319 10 Mar, 2013 [facility] [place] [facility] [address] [id number] [place] [address]- 280[address] 18 Mar, 2013 [facility] [place] [facility] [address] [id number] [place] [address] Mar, [facility] [address] [id number] [place] [address] Mar, [facility] [address] [id number] [place] [address] Jan, [facility] [address] [id number] [place] [address] October, [facility] [address] [id number] [place] [address] Sep, [facility] [address] [id number] [place] [address]- [address] Sep, [facility] [address] [id number] [address] Aug, [facility] [address] [id number] [place] [address] 0414 Aug, [facility] [address] [id number] [place] [address] Aug, [facility] [address] [id number] [place] [address] Jul, [facility] [address] [id number] [place] [address] May, [facility] [address] [id number] [place] [address] May, [facility] [place] [facility] [address] [id number] [place] [address] 18[address] May, [facility] [place] [facility] [address] [id number] [place] [address] May, [facility] [place] [facility] [address] [facility]NOTE 3] [id number] [place] [address] Mar, [facility] [place] [facility] [address] [id number] [place] [address] Mar, [facility] [place] [facility] [address] [id number] [place] [address]- 4984 16 Mar, 2012 [facility] [place] [facility] [address] [id number] [place] [address]- 0863 25 Mar, 2011 [facility] [place] [facility] [address] [id number] [place] [address] 9936 19 Mar, 2011 [facility] [place] [facility] [address] [id number] [place] [address]- 5456 13 Mar, 2011 [facility] [place] [facility] [address] [id number] [place] [address]- 0349 07 Mar, 2012 [facility] [place] [facility] [address] [id number] [place] [address]- 5628 30 Jan, 2012 [facility] [place] [facility] [address] [id number] [place] [address]239 28 Jan, 2012 [facility] [place] [facility] [address] [id number] [place] [address]- [address] Jan, [facility] [place] [facility] [address] [id number] [place] [address]- 0339 14 Jan, 2012 [facility] [place] [facility] [address] [id number] [place] [address]- [address]140 Jan, [facility] [place] [facility] [address] [id number] [place] [address] 7923 Jan, [facility] [place] [facility] [address] [id number] [place] [address]- [address] Jan, [facility] [place] [facility] [address] [id number] [place] [address]- [address]448 Jan, [facility] [place] [facility] [address] [id number] [place] [address]- 9374 Jan, [facility] [place] [facility] [address] [id number] [place] [address]- 5056 Jan, [facility] [place] [facility] [address] [id number] [place] [address]- [address]64 Jan, [facility] [place] [facility] [address] [id number] [place] [address]- 8510 Jan, [facility] [place] [facility] [address] [id number] [place] [address]- 4361 Jan, [facility] [place] [facility] [address] [id number] [place] [address]- [address]126 Jan, [facility] [place] [facility] [address] [id number] [place] [address]- 8885 Jan, [facility] [place] [facility] [address] [id number] [place] [address]- [address]127 Jan, [facility] [place] [facility] [address] [id number] [place] [address]- 0646 Dec, [facility] [place] [facility] [address] [id number] [place] [address]- 4001 Dec, [facility] [place] [facility] [address] [id number] [place] [address]- 6835 Nov, [facility] [place] [facility] [address] [id number] [place] [address]- 7981 Nov, [facility] [place] [facility] [address] [id number] [place] [address]- 1692 October, [facility] [place] [facility] [address] [id number] [place] [address]- 8799 October, [facility] [place] [facility] [address] [id number] [place] [address]- 7533 October, [facility] [place] [facility] [address] [id number] [place] [address]- 8082 Sep, [facility] [place] [facility] [address] [id number] [place] [address]- 7922 Sep, [facility] [place] [facility] [address] [id number] [place] [address]115 Aug, [facility] [place] [facility] [address] [id number] [place] [address]- [id number] 28 Aug, 2011 [facility] [address] [id number] [place] [address] 26 Aug, 2011 [facility] [place] [facility] [address] [id number] [place] [address] 19 Aug, 2011 [facility] [address] [id number] [place] [address] 12 Aug, 2011 [facility] [place] [facility] [address] [id number] [place] [address] 14 Aug, 2011 [facility] [place] [facility] [address] [id number] [place] [address] 07 Aug, 2011 [facility] [place] [facility] [address] [id number] [place] [address] 27 Jul, 2011 [facility] [address] [id number] [place] [address] 20 Jul, 2011 [facility] [place] [facility] [address] [id number] [place] [address] Jul, [facility] [address] [id number] [place] [address] 28 May, 2011 [facility] [address] [id number] [place] [address] 28 May, 2011 [facility] [address] [id number] [place] [address] 21 May, 2011 [facility] [place] [facility] [address] [id number] [place] [address] 19 May, 2011 [facility] [place] [facility] [address] [id number] [place] [address] 13 May, 2011 [facility] [place] [facility] [address] [id number] [place] [address]16 13 May, 2011 [facility] [place] [facility] [address] [id number] [place] [address] 22 May, 2011 [facility] [address] [id number] [place] [address] Mar, [facility] [address] [id number] [place] [address] Mar, [facility] [address] [facility]NOTE [facility]] [id number] [place] [address] [address] Mar, [facility] [address] [facility]NOTE [facility]] [id number] [place] [address] 15 Mar, 2011 [facility] [address] [id number] [place] [address] Mar, [facility] [address] [facility]NOTE 3] [id number] [place] [address] Mar, [facility] [address] [facility]NOTE 3] [id number] [place] [address] Jan, [facility] [address] [facility]NOTE 3] [id number] [place] [address] May, [facility] [address] [facility]NOTE 3] [id number] [place] [address] May, [facility] [address] [facility]NOTE 3] [id number] [place] [address] May, [facility] [address] [facility]NOTE 3] [id number] [place] [address] May, [facility] [address] [facility]NOTE 3] [id number] [place] [address] May, [facility] [address] [facility]NOTE 3] [id number] [place] [address]6 May, [facility] [address] [facility]NOTE 3] [id number] [place] [id number] [address] Mar, [facility] [address] [facility]NOTE 3] [id number] [place] [address] Sep, IMMUNIZATIONS No Known Immunizations SOCIAL HISTORY Never Assessed REASON FOR VISIT Controlled Med Refill 07/26/17 PLAN OF CARE VITAL SIGNS MEDICATIONS Medication [...]
--- OUTSIDE RECORDS SUMMARY | 2018-01-25 16:12 | XMS REPORT ---
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 [id number], [place] [address]- 5819 Mar, [facility] [place] [facility] [address] [id number] [place] [address]- 1035 24 Mar, 2014 [facility] [place] [facility] [address] [id number] [place] [address]- 5578 08 Mar, 2014 [facility] [place] [facility] [address] [id number] 4792 08 Mar, 2014 [facility] [place] [facility] [address] [id number], [place] [address]- 0696 Mar, [facility] [place] [facility] [address] [id number] [place] [address]- 0605 Mar, [facility] [place] [facility] [address] [id number] [place] [address]- 8800 Jan, [facility] [place] [facility] [address] [id number] [place] [address]- 7794 Jan, [facility] [place] [facility] [address] [id number] [place] [address]- 9377 Jan, [facility] [place] [facility] [address] [id number] [place] [address]- 7649 Jan, [facility] [place] [facility] [address] [id number] [place] [address]- 5007 Jan, [facility] [place] [facility] [address] [id number] [place] [address]- 4266 Jan, [facility] [place] [facility] [address] [id number] [place] [address]- 6209 Jan, [facility] [place] [facility] [address] [id number] [place] [address]- 4442 Jan, [facility] [place] [facility] [address] [id number] [place] [address]- 0506 Jan, [facility] [place] [facility] [address] [id number] [place] [address]- 1831 Dec, [facility] [place] [facility] [address] [id number] [place] [address]- 8082 Dec, [facility] [place] [facility] [address] [id number] [place] [address]- 4989 Dec, [facility] [place] [facility] [address] [id number] [place] [address]- 4161 Dec, [facility] [place] [facility] [address] [id number] [place] [address]- 8202 Dec, [facility] [place] [facility] [address] [id number] [place] [address]- 2218 Dec, [facility] [place] [facility] [address] [id number] [place] [address]- 8667 Dec, [facility] [place] [facility] [address] [id number] [place] [address]- 8280 Dec, [facility] [place] [facility] [address] [id number] [place] [address]- 3190 Dec, [facility] [place] [facility] [address] [id number] [place] [address]- 1786 October, [facility] [place] [facility] [address] [id number] [place] [address]- 0135 October, [facility] [place] [facility] [address] [id number] [place] [address]- 8827 Sep, [facility] [place] [facility] [address] [id number] [place] [address]- 0376 Sep, [facility] [place] [facility] [address] [id number] [place] [address]- 0040 Aug, [facility] [place] [facility] [address] [id number] [place] [address]- 6332 Aug, [facility] [place] [facility] [address] [id number] [place] [address]- 4260 Aug, [facility] [place] [facility] [address] [id number] [place] [address]- 2651 Aug, [facility] [place] [facility] [address] [id number] [place] [address]- 8727 Aug, [facility] [place] [facility] [address] [id number] [place] [address]- 3057 Aug, [facility] [place] [facility] [address] [id number] [place] [address]- 2006 14 Aug, 2013 [facility] [place] [facility] [address] [id number] [place] [address]- 3979 Aug, [facility] [address] [id number] [place] [address]- 9987 Aug, [facility] [place] [facility] [address] [id number] [place] [address]- 2656 Aug, [facility] [place] [facility] [address] [id number] [place] [address]- 9419 Aug, [facility] [place] [facility] [address] [id number] [place] [address]- 2201 Jul, [facility] [place] [facility] [address] [id number] [place] [address]- 0951 Jul, [facility] [place] [facility] [address] [id number] [place] [address]- 6693 May, [facility] [address] [id number] [place] [address]- 3597 May, [facility] [place] [facility] [address] [id number] [place] [address]- 2696 May, [facility] [place] [facility] [address] [id number] [place] [address]- 0978 May, [facility] [place] [facility] [address] [id number] [place] [address]- 5250 May, [facility] [place] [facility] [address] [id number] [place] [address]- 5528 May, [facility] [place] [facility] [address] [id number] [place] [address]- 6324 May, [facility] [place] [facility] [address] [id number] [place] [address]- 1014 May, [facility] [place] [facility] [address] [id number] [place] [address]- 9451 May, [facility] [place] [facility] [address] [id number] [place] [address]- 2618 May, [facility] [place] [facility] [address] [id number] [place] [address]- 9119 20 May, 2013 [facility] [address] [id number] [place] [address]- 9952 May, [facility] [place] [facility] [address] [id number] [place] [address]- 5300 May, [facility] [place] [facility] [address] [id number] [place] [address]- 0654 May, [facility] [place] [facility] [address] [id number] [place] [address]- 2426 May, [facility] [place] [facility] [address] [id number] [place] [address]- 0713 May, [facility] [place] [facility] [address] [id number] [place] [address]- 8790 May, [facility] [place] [facility] [address] [id number] [place] [address]- 5068 May, [facility] [place] [facility] [address] [id number] [place] [address]- 5301 16 May, 2013 [facility] [place] [facility] [address] [id number] [place] [address]- 5258 16 May, 2013 [facility] [place] [facility] [address] [id number] [place] [address]- 5047 May, [facility] [place] [facility] [address] [id number] [place] [address]- 4723 May, [facility] [place] [facility] [address] [id number] [place] [address]- 3933 May, [facility] [place] [facility] [address] [id number] [place] [address]- 1373 May, [facility] [place] [facility] [address] [id number] [place] [address]- 4274 May, [facility] [place] [facility] [address] [id number] [place] [address]- 2132 May, [facility] [place] [facility] [address] [id number] [place] [address]- 5872 May, [facility] [place] [facility] [address] [id number] [place] [address]- 0498 May, [facility] [place] [facility] [address] [id number] [place] [address]- 4717 May, [facility] [place] [facility] [address] [id number] [place] [address]- 1290 May, [facility] [place] [facility] [address] [id number] [place] [address]- 0768 Mar, [facility] [place] [facility] [address] [id number] [place] [address]- 3914 Mar, [facility] [place] [facility] [address] [id number] [place] [address]- 9866 Mar, [facility] [place] [facility] [address] [id number], [place] [address]- 9904 Mar, [facility] [place] [facility] [address] [id number] [place] [address]- 2903 30 Mar, 2013 [facility] [place] [facility] [address] [id number], [place] [address]- 8964 Mar, [facility] [place] [facility] [address] [id number], [place] [address]- 5838 Mar, [facility] [place] [facility] [address] [id number], [place] [address]- 6851 Mar, [facility] [place] [facility] [address] [id number], [place] [address]- 1601 Mar, [facility] [place] [facility] [address] [id number], [place] [address]- 6894 Mar, [facility] [place] [facility] [address] [id number], [place] [address]- 0544 Mar, [facility] [place] [facility] [address] [id number] [place] [address]- 5831 24 Mar, 2012 [facility] [place] [facility] [address] [id number] [place] [address]- 7785 24 Mar, 2012 [facility] [place] [facility] [address] [id number] [place] [address]- 1070 23 Mar, 2013 [facility] [place] [facility] [address] [id number] [place] [address]- 4263 22 Mar, 2012 [facility] [place] [facility] [address] [id number] [place] [address]- 7240 21 Mar, 2012 [facility] [place] [facility] [address] [id number] [place] [address]- 4879 21 Mar, 2013 [facility] [place] [facility] [address] [id number] [place] [address] 3812 18 Mar, 2013 [facility] [place] [facility] [address] [id number] [place] [address] 4586 18 Mar, 2012 [facility] [place] [facility] [address] [id number] [place] [address] 7693 18 Mar, 2013 [facility] [place] [facility] [address] [id number] [place] [address]- 9451 18 Mar, 2012 [facility] [place] [facility] [address] [id number] [place] [address]- 1757 14 Mar, 2013 [facility] [place] [facility] [address] [id number] [place] [address]- 5125 14 Mar, 2012 [facility] [place] [facility] [address] [id number], [place] [address] 10 Mar, 2012 [facility] [place] [facility] [address] [id number] [place] [address]- 4502 18 Mar, 2012 [facility] [place] [facility] [address] [id number] [place] [address] 9196 12 Mar, 2012 [facility] [place] [facility] [address] [id number] [place] [address]- 6566 11 Mar2012 [facility] [place] [facility] [address] [id number] [place] [address]306 Jan, [facility] [address] [id number] [place] [address] 97[address] October, [facility] [place] [facility] [address] [id number] [place] [address] Sep, [facility] [place] [facility] [address] [id number] [place] [address]226 Sep, [facility] [place] [facility] [address] [id number] [place] [address] Aug, [facility] [place] [facility] [address] [id number] [place] [address] 2515 Aug, [facility] [address] [id number] [place] [address]- 68[address] Aug, [facility] [address] [id number] [place] [address] Jul, [facility] [address] [id number] [place] [address] 3449 May, [facility] [address] [id number] [place] [address] May, [facility] [address] [id number] [place] [address]- 6058 18 May, 2012 [facility] [place] [facility] [address] [id number] [place] [address] 2630 18 May, 2012 [facility] [place] [facility] [address] [id number] [place] [address] 9901 Mar, [facility] [place] [facility] [address] [id number] [place] [address] 19 Mar, 2012 [facility] [place] [facility] [address] [id number] [place] [address]- 1276 16 Mar, 2012 [facility] [place] [facility] [address] [id number] [place] [address]- 6139 25 Mar, 2012 [facility] [place] [facility] [address] [id number] [place] [address]- 8446 19 Mar, 2011 [facility] [place] [facility] [address] [id number] [place] [address]- 7376 13 Mar, 2012 [facility] [place] [facility] [address] [id number] [place] [address]- 7156 07 Mar, 2012 [facility] [place] [facility] [address] [id number] [place] [address]- 3199 30 Jan, 2012 [facility] [place] [facility] [address] [id number] [place] [address] 0[address] Jan, [facility] [place] [facility] [address] [id number] [place] [address]321 Jan, [facility] [place] [facility] [address] [id number] [place] [address]- 4049 14 Jan, 2012 [facility] [place] [facility] [address] [id number] [place] [address] 8540 Jan, [facility] [place] [facility] [address] [id number] [place] [address] 2693 Jan, [facility] [place] [facility] [address] [id number] [place] [address] 5506 Jan, [facility] [place] [facility] [address] [id number] [place] [address] 5913 Jan, [facility] [place] [facility] [address] [id number] [place] [address] 2609 Jan, [facility] [place] [facility] [address] [id number] [place] [address] 5735 Jan, [facility] [place] [facility] [address] [id number] [place] [address]- 7878 Jan, [facility] [place] [facility] [address] [id number] [place] [address]- 2259 Jan, [facility] [place] [facility] [address] [id number] [place] [address] 2546 Jan, [facility] [address] [id number] [place] [address]- 7456 Jan, [facility] [place] [facility] [address] [id number] [place] [address] 2546 Jan, [facility] [address] [id number] [place] [address]- 3196 Jan, [facility] [address] [id number] [place] [address]- 1281 Dec, [facility] [address] [id number] [place] [address]- 4858 Dec, [facility] [address] [id number] [place] [address] 1349 Nov, [facility] [address] [id number] [place] [address] 7293 Nov, [facility] [address] [id number] [place] [address] 7779 October, [facility] [address] [id number] [place] [address] 7936 October, [facility] [address] [id number] [place] [address] 5846 October, [facility] [address] [id number] [place] [address] 6751 Sep, [facility] [address] [id number] [place] [address]- 6822 Sep, [facility] [place] [facility] [address] [id number] [place] [address] 4909 30 Aug, 2011 [facility] [place] [facility] [address] [id number] [place] [address] 2546 Aug, [facility] [place] [facility] [address] [id number] [place] [address] 8295 Aug, [facility] [address] [id number] [place] [address]- 2876 19 Aug, 2011 [facility] [place] [facility] [address] [id number] [place] [address]- 1761 12 Aug, 2011 [facility] [place] [facility] [address] [id number] [place] [address]- 6825 14 Aug, 2011 [facility] [place] [facility] [address] [id number] [place] [address]- 0336 07 Aug, 2011 [facility] [address] [id number] [place] [address]- 8743 27 Jul, 2011 [facility] [place] [facility] [address] [id number] [place] [address]- 8820 Jul, [facility] [place] [facility] [address] [id number] [place] [address] Jul, [facility] [place] [facility] [address] [id number] [place] [address] 28 May, 2011 [facility] [place] [facility] [address] [id number] [place] [address] 28 May, 2011 [facility] [place] [facility] [address] [id number] [place] [address] May, [facility] [place] [facility] [address] [id number] [place] [address] 19 May, 2011 [facility] [place] [facility] [address] [id number], [place] [address] 13 May, 2011 [facility] [place] [facility] [address] [id number] [place] [address] May, [facility] [place] [facility] [address] [id number] [place] [address] 22 May, 2011 [facility] [place] [facility] [address] [id number] [place] [address] 25 Mar, 2011 [facility] [place] [facility] [id number] [address] Mar, [facility] [id number] [address] Mar, [facility] [id number] [address] Mar, [facility] [id number] [place] [address] Mar, [facility] [id number] [place] [address] Mar, [facility] [id number] [place] [address] Jan, [facility] [id number] [place] [address] May, [facility] [id number] [place] [id number] May, [facility] [id number], [place] [address] May, [facility] [id number] [place] [address] May, [facility] [id number], [place] [address] May, [facility] [id number] [place] [address] May, [facility] [id number], [place] [address] Mar, [facility] [id number] [address] Sep, IMMUNIZATIONS No Known Immunizations SOCIAL HISTORY Never Assessed REASON FOR VISIT Controlled Med Refill 06/28/2017 PLAN OF CARE VITAL SIGNS MEDICATIONS Medication [...]
[2018-01-25] MEDS ORDERED: LIDOCAINE/EPI 2% 1:100,00 (XYLOCAINE) 20 ML VIAL INJ ONE (16:15)
[2018-01-25] MEDS ORDERED: KETOROLAC 60 MG/2 ML VIAL IM ONE (16:15)
[2018-01-25] MEDS ORDERED: BUPIVACAINE 0.5% 30 ML (SENSORCAINE) VIAL INJ ONE (16:15)
--- OUTSIDE RECORDS SUMMARY | 2018-01-25 16:16 | XMS REPORT ---
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 [place] [facility] [address] [id number] [place] [address]- 6149 Mar, [facility] [place] [facility] [address] [id number] [place] [address]- 3008 Mar, [facility] [place] [facility] [address] [id number] [place] [address]- 7730 Mar, [facility] [place] [facility] [address] [id number] [place] [address]- 2350 Mar, [facility] [place] [facility] [address] [id number] [place] [address]- 8468 Mar, [facility] [place] [facility] [address] [id number] [place] [address]- 7613 Mar, [facility] [place] [facility] [address] [id number] [place] [address]- 9044 Mar, [facility] [place] [facility] [address] [id number] [place] [address]- 5759 Mar, [facility] [place] [facility] [address] [id number] [place] [address]- 7451 Mar, [facility] [place] [facility] [address] [id number] [place] [address]- 3366 Jan, [facility] [place] [facility] [address] [id number] [place] [address]- 8620 Jan, [facility] [place] [facility] [address] [id number] [place] [address]- 6529 Jan, [facility] [place] [facility] [address] [id number] [place] [address]- 9216 Jan, [facility] [place] [facility] [address] [id number] [place] [address]- 1828 Jan, [facility] [place] [facility] [address] [id number] [place] [address]- 0737 Jan, [facility] [place] [facility] [address] [id number] [place] [address]- 9541 Jan, [facility] [place] [facility] [address] [id number] [place] [address]- 8991 Jan, [facility] [place] [facility] [address] [id number] [place] [address]- 7061 Jan, [facility] [place] [facility] [address] [id number] [place] [address]- 1699 Dec, [facility] [place] [facility] [address] [id number] [place] [address]- 4836 Dec, [facility] [place] [facility] [address] [id number] [place] [address]- 6479 Dec, [facility] [place] [facility] [address] [id number] [place] [address]- 7187 Dec, [facility] [place] [facility] [address] [id number] [place] [address]- 2862 Dec, [facility] [place] [facility] [address] [id number] [place] [address]- 8514 Dec, [facility] [place] [facility] [address] [id number] [place] [address]- 9328 Dec, [facility] [place] [facility] [address] [id number] [place] [address]- 8318 Dec, [facility] [place] [facility] [address] [id number] [place] [address]- 7791 Dec, [facility] [place] [facility] [address] [id number] [place] [address]- 6001 October, [facility] [place] [facility] [address] [id number] [place] [address]- 6703 October, [facility] [place] [facility] [address] [id number] [place] [address]- 8781 Sep, [facility] [place] [facility] [address] [id number] [place] [address]- 3175 Sep, [facility] [place] [facility] [address] [id number] [place] [address]- 5406 Aug, [facility] [place] [facility] [address] [id number] [place] [address]- 8970 Aug, [facility] [place] [facility] [address] [id number] [place] [address]- 2469 Aug, [facility] [place] [facility] [address] [id number] [place] [address]- 7020 Aug, [facility] [place] [facility] [address] [id number] [place] [address]- 8582 Aug, [facility] [place] [facility] [address] [id number] [place] [address]- 4538 17 Aug, 2013 [facility] [place] [facility] [address] [id number] [place] [address]- 5906 14 Aug, 2013 [facility] [place] [facility] [address] [id number] [place] [address]- 2186 Aug, 2013 [facility] [place] [facility] [address] [id number] [place] [address]- 5806 Aug, 2013 [facility] [place] [facility] [address] [id number] [place] [address]- 0409 Aug, [facility] [place] [facility] [address] [id number] [place] [address]- 8992 Aug, [facility] [place] [facility] [address] [id number] [place] [address]- 8128 Jul, [facility] [place] [facility] [address] [id number] [place] [address]- 1983 Jul, [facility] [place] [facility] [address] [id number] [place] [address]- 6818 May, [facility] [place] [facility] [address] [id number] [place] [address]- 9561 May, [facility] [place] [facility] [address] [id number] [place] [address]- 3286 May, [facility] [place] [facility] [address] [id number] [place] [address]- 8310 May, [facility] [place] [facility] [address] [id number] [place] [address]- 2545 May, [facility] [place] [facility] [address] [id number] [place] [address]- 254 May, [facility] [place] [facility] [address] [id number] [place] [address]- 9920 May, [facility] [place] [facility] [address] [id number] [place] [address]- 8879 May, [facility] [place] [facility] [address] [id number] [place] [address]- 0538 May, [facility] [place] [facility] [address] [id number] [place] [address]- 7608 May, [facility] [place] [facility] [address] [id number] [place] [address]- 3036 May, [facility] [place] [facility] [address] [id number] [place] [address]- 6271 May, [facility] [place] [facility] [address] [id number] [place] [address]- 3814 May, [facility] [place] [facility] [address] [id number] [place] [address]- 6197 May, [facility] [place] [facility] [address] [id number] [place] [address]- 1284 May, [facility] [place] [facility] [address] [id number] [place] [address]- 8240 May, [facility] [place] [facility] [address] [id number] [place] [address]- 4653 May, [facility] [place] [facility] [address] [id number] [place] [address] 18 May, 2013 [facility] [place] [facility] [address] [id number] [place] [address] 16 May, 2013 [facility] [place] [facility] [address] [id number] [place] [address] 16 May, 2013 [facility] [place] [facility] [address] [id number] [place] [address] 11 May, 2013 [facility] [place] [facility] [address] [id number] [place] [address] May, [facility] [place] [facility] [address] [id number] [place] [address] May, [facility] [place] [facility] [address] [id number] [place] [address] May, [facility] [address] [id number] [place] [address]- 119[address] May, [facility] [place] [facility] [address] [id number] [place] [address] May, [facility] [address] [id number] [place] [address]- [address] May, [facility] [place] [facility] [address] [id number] [place] [address] May, [facility] [place] [facility] [address] [id number] [place] [address]99 May, [facility] [place] [facility] [address] [id number] [place] [address]- 38[address] May, [facility] [place] [facility] [address] [id number] [place] [address]- [address] Mar, [facility] [place] [facility] [address] [id number] [place] [address]658 Mar, [facility] [place] [facility] [address] [id number] [place] [address]- 1041 Mar, [facility] [place] [facility] [address] [facility] [id number] [place] [address] Mar, [facility] [place] [facility] [address] [id number] [place] [address]- [address]26 30 Mar, 2013 [facility] [place] [facility] [address] [id number] [place] [address]- [address] Mar, [facility] [place] [facility] [address] [id number] [place] [address]- [address]609 Mar, [facility] [place] [facility] [address] [facility] [id number] [place] [address]- [address] Mar, [facility] [place] [facility] [address] [id number] [place] [address]- [address] 29 Mar, 2013 [facility] [place] [facility] [address] [id number] [place] [address]- 289[address] Mar, [facility] [place] [facility] [address] [id number] [place] [address]- 1472 28 Mar, 2013 [facility] [place] [facility] [address] [id number] [place] [address]- 9792 Mar, [facility] [place] [facility] [address] [id number] [place] [address]- 1216 24 Mar, 2013 [facility] [place] [facility] [address] [id number] [place] [address]- [address] 23 Mar, 2013 [facility] [place] [facility] [address] [id number] [place] [address]- [address] Mar, [facility] [place] [facility] [address] [id number] [place] [address]- [address]28 Mar, [facility] [place] [facility] [address] [id number] [place] [address] Mar, [facility] [place] [facility] [address] [id number] [place] [address]- 1430 18 Mar, 2013 [facility] [place] [facility] [address] [id number] [place] [address] 18 Mar, 2013 [facility] [place] [facility] [address] [id number] [place] [address]- [address]77 18 Mar, 2013 [facility] [place] [facility] [address] [id number] [place] [address]- 6985 18 Mar, 2013 [facility] [place] [facility] [address] [id number] [place] [address]- [address] 14 Mar, 2013 [facility] [place] [facility] [address] [id number] [place] [address]- [address]30 14 Mar, 2013 [facility] [place] [facility] [address] [id number] [place] [address]- 67[address] 10 Mar, 2013 [facility] [place] [facility] [address] [id number] [address]- [address] 18 Mar, 2013 [facility] [address] [id number] [place] [address]- 360[address] 12 Mar, 2013 [facility] [address] [facility] [id number] [place] [address] Mar, [facility] [address] [facility] [id number] [place] [address]- 69[address] Jan, [facility] [address] [facility] [id number] [place] [address]- [address] October, [facility] [address] [id number] [place] [address]- 1355 Sep, [facility] [address] [facility] [id number] [place] [address]- [address]27 Sep, [facility] [id number] [place] [address] Aug, [facility] [address] [facility] [id number] [place] [address]- [address]99 Aug, [facility] [address] [id number] [address]97 04 Aug, 2012 [facility] [address] [id number] [place] [address] 89[address] Jul, [facility] [address] [id number] [address] May, [facility] [address] [id number] [place] [address]- 7651 May, [facility] [address] [facility] [id number] [place] [address]- 1137 May, [facility] [address] [facility] [id number] [place] [address] May, [facility] [address] [id number] [address]285 Mar, [facility] [place] [facility] [address] [id number] [place] [address]- 8924 Mar, [facility] [place] [facility] [address] [id number] [place] [address]- 8516 16 Mar, 2012 [facility] [place] [facility] [address] [address] [id number] [place] [address] 25 Mar, 2012 [facility] [place] [facility] [address] [id number] [place] [address] 19 Mar, 2012 [facility] [place] [facility] [address] [id number] [place] [address] 13 Mar, 2012 [facility] [place] [facility] [address] [id number] [place] [address] Mar, [facility] [place] [facility] [address] [id number] [place] [address] 30 Jan, 2012 [facility] [place] [facility] [address] [id number] [place] [address] Jan, [facility] [place] [facility] [address] [id number] [place] [address] Jan, [facility] [place] [facility] [address] [id number] [place] [address] Jan, [facility] [place] [facility] [address] [id number] [place] [address] Jan, [facility] [place] [facility] [address] [id number] [place] [address] Jan, [facility] [place] [facility] [address] [id number] [place] [address] Jan, [facility] [place] [facility] [address] [id number] [place] [address] Jan, [facility] [place] [facility] [address] [id number] [place] [address] Jan, [facility] [place] [facility] [address] [id number] [place] [address] Jan, [facility] [place] [facility] [address] [id number] [place] [address] Jan, [facility] [place] [facility] [address] [id number] [place] [address] Jan, [facility] [place] [facility] [address] [id number] [place] [address] Jan, [facility] [place] [facility] [address] [id number] [place] [address] Jan, [facility] [place] [facility] [address] [id number] [place] [address] Jan, [facility] [place] [facility] [address] [id number] [place] [address] Jan, [facility] [place] [facility] [address] [id number] [place] [address] Dec, [facility] [place] [facility] [address] [id number] [place] [address] Dec, [facility] [place] [facility] [address] [id number] [place] [address] Nov, [facility] [place] [facility] [address] [id number] [place] [address] Nov, [facility] [place] [facility] [address] [id number] [place] [address] October, [facility] [place] [facility] [address] [id number] [place] [address] October, [facility] [place] [facility] [address] [id number] [place] [address] October, [facility] [place] [facility] [address] [id number] [place] [address] Sep, [facility] [place] [facility] [address] [id number] [place] [address] Sep, [facility] [place] [facility] [address] [id number] [place] [address] 30 Aug, 2011 [facility] [address] [id number] [place] [address] 28 Aug, 2011 [facility] [address] [id number] [place] [address] 2546 26 Aug, 2011 [facility] [address] [id number] [place] [address]26 19 Aug, 2011 [facility] [address] [id number] [place] [address] 2546 12 Aug, 2011 [facility] [address] [id number] [place] [address] 14 Aug, 2011 [facility] [address] [id number] [place] [address] 07 Aug, 2011 [facility] [address] [id number] [place] [address]687 Jul, [facility] [address] [id number] [place] [address] Jul, [facility] [address] [id number] [place] [address] Jul, [facility] [address] [id number] [place] [address] 28 May, 2011 [facility] [address] [id number] [place] [address] 2546 28 May, 2011 [facility] [address] [id number] [place] [address] 2546 May, [facility] [place] [facility] [address] [id number] [place] [address] 2546 19 May, 2011 [facility] [address] [id number] [place] [address] 2546 13 May, 2011 [facility] [address] [id number] [place] [address] 13 May, 2011 [facility] [place] [facility] [address] [id number] [place] [address] May, [facility] [place] [facility] [address] [id number] [place] [address] 25 Mar, 2011 [facility] [place] [facility] [address] [id number] [place] [address] Mar, [facility] [place] [facility] [address] [id number] [place] [address] 19 Mar, 2011 [facility] [place] [facility] [address] [id number] [place] [address] 15 Mar, 2011 [facility] [place] [facility] [address] [id number] [place] [address] 27 Mar, 2010 [facility] [place] [facility] [address] [id number] [place] [address] Mar, [facility] [place] [facility] [address] [id number] [place] [address] Jan, [facility] [place] [facility] [address] [id number] [place] [address] 1662 31 May, 2009 [facility] [place] [facility] [address] [facility] [id number] [place] [address] 16 May, 2009 [facility] [place] [facility] [address] [id number] [place] [address] May, [facility] [place] [facility] [address] [id number] [place] [address] May, [facility] [place] [facility] [address] [id number] [place] [address] May, [facility] [place] [facility] [address] [id number] [place] [address] May, [facility] [place] [facility] [address] [facility] [id number] [place] [address] 26 Mar, 2009 [facility] [place] [facility] [address] [id number] [place] [address] Sep, IMMUNIZATIONS No Known Immunizations SOCIAL HISTORY Never Assessed REASON FOR VISIT Controlled Med Refill 08/23/17 PLAN OF CARE VITAL SIGNS MEDICATIONS Medication [...]
--- OUTSIDE RECORDS SUMMARY | 2018-01-25 16:18 | XMS REPORT ---
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 [place] [address]- 2388 May, [facility] [place] [facility] [address] [id number] [place] [address]- 3565 May, [facility] [place] [facility] [address] [id number] [place] [address]- 4385 May, [facility] [place] [facility] [address] [id number] [place] [address]- 4507 Mar, [facility] [place] [facility] [address] [id number] [place] [address]- 1015 Mar, [facility] [place] [facility] [address] [id number] [place] [address]- 9466 Mar, [facility] [place] [facility] [address] [id number] [place] [address]- 5917 Mar, [facility] [place] [facility] [address] [id number] [place] [address]- 2413 Mar, [facility] [place] [facility] [address] [id number] [place] [address]- 9485 Mar, [facility] [place] [facility] [address] [id number] [place] [address]- 6766 Mar, [facility] [place] [facility] [address] [id number] [place] [address]- 7519 Mar, [facility] [place] [facility] [address] [id number] [place] [address]- 6784 24 Mar, 2014 [facility] [place] [facility] [address] [id number] [place] [address]- 5021 24 Mar, 2014 [facility] [place] [facility] [address] [id number] [place] [address]- 0722 Mar, [facility] [place] [facility] [address] [id number] [place] [address]- 7831 08 Mar, 2014 [facility] [place] [facility] [address] [id number] [place] [address]- 2542 Mar, [facility] [place] [facility] [address] [id number] [place] [address]- 6040 Mar, [facility] [place] [facility] [address] [id number] [place] [address]- 8115 Jan, [facility] [place] [facility] [address] [id number] [place] [address]- 6371 Jan, [facility] [place] [facility] [address] [id number] [place] [address]- 7720 Jan, [facility] [place] [facility] [address] [id number] [place] [address]- 1712 Jan, [facility] [place] [facility] [address] [id number] [place] [address]- 3533 Jan, [facility] [place] [facility] [address] [id number] [place] [address]- 9842 Jan, [facility] [place] [facility] [address] [id number] [place] [address]- 1493 Jan, [facility] [place] [facility] [address] [id number] [place] [address]- 9275 Jan, [facility] [place] [facility] [address] [id number] [place] [address]- 3893 Jan, [facility] [place] [facility] [address] [id number] [place] [address]- 0176 Dec, [facility] [place] [facility] [address] [id number] [place] [address]- 9473 Dec, [facility] [place] [facility] [address] [id number] [place] [address]- 8947 Dec, [facility] [place] [facility] [address] [id number] [place] [address]- 8532 Dec, [facility] [place] [facility] [address] [id number] [place] [address]- 2649 Dec, [facility] [place] [facility] [address] [id number] [place] [address]- 0813 Dec, [facility] [place] [facility] [address] [id number] [place] [address]- 5961 Dec, [facility] [place] [facility] [address] [id number] [place] [address]- 4273 Dec, [facility] [place] [facility] [address] [id number] [place] [address]- 9063 Dec, [facility] [place] [facility] [address] [id number] [place] [address]- 7472 October, [facility] [place] [facility] [address] [id number] [place] [address]- 4023 October, [facility] [place] [facility] [address] [id number] [place] [address]- 2577 Sep, [facility] [place] [facility] [address] [facility] [id number] [place] [address]- 9700 Sep, [facility] [place] [facility] [address] [id number] [place] [address]- 7839 07 Aug, 2013 [facility] [place] [facility] [address] [id number] [place] [address]- 6184 Aug, [facility] [place] [facility] [address] [facility] [id number] [place] [address]- 3001 Aug, [facility] [place] [facility] [address] [facility] [id number] [place] [address]- 4323 Aug, [facility] [place] [facility] [address] [facility] [id number] [place] [address]- 2323 Aug, [facility] [place] [facility] [address] [facility] [id number] [place] [address]- 1048 Aug, [facility] [place] [facility] [address] [facility] [id number] [place] [address]- 5513 14 Aug, 2013 [facility] [place] [facility] [address] [facility] [id number] [place] [address]- 5075 Aug, [facility] [place] [facility] [address] [facility] [id number] [place] [address]- 8141 Aug, [facility] [place] [facility] [address] [id number] [place] [address]- 0455 Aug, [facility] [place] [facility] [address] [facility] [id number] [place] [address]- 1288 Aug, [facility] [place] [facility] [address] [facility] [id number] [place] [address]- 8000 Jul, [facility] [place] [facility] [address] [id number] [place] [address]- 5071 Jul, [facility] [place] [facility] [address] [id number] [place] [address]- 3063 May, [facility] [place] [facility] [address] [id number] [place] [address]- 4595 May, [facility] [place] [facility] [address] [id number] [place] [address]- 4871 May, [facility] [address] [id number] [place] [address]- 2181 May, [facility] [place] [facility] [address] [id number] [place] [address]- 5684 May, [facility] [address] [id number] [place] [address]- 3294 May, [facility] [place] [facility] [address] [id number] [place] [address]- 8569 May, [facility] [place] [facility] [address] [id number] [place] [address]- 3998 May, [facility] [place] [facility] [address] [id number] [place] [address]- 6290 May, [facility] [place] [facility] [address] [id number] [place] [address]- 2852 May, [facility] [place] [facility] [address] [id number] [place] [address]- 8699 May, [facility] [place] [facility] [address] [id number] [place] [address]- 5205 May, [facility] [place] [facility] [address] [id number] [place] [address]- 1744 May, [facility] [place] [facility] [address] [id number] [place] [address]- 3822 May, [facility] [place] [facility] [address] [id number] [place] [address]- 2714 May, [facility] [place] [facility] [address] [id number] [place] [address]- 9846 May, [facility] [place] [facility] [address] [id number] [place] [address]- 6229 May, [facility] [place] [facility] [address] [id number] [place] [address]- 0006 May, [facility] [place] [facility] [address] [id number] [place] [address]- 3317 May, [facility] [place] [facility] [address] [id number] [place] [address]- 6178 May, [facility] [place] [facility] [address] [id number] [place] [address]- 4207 May, [facility] [place] [facility] [address] [id number] [place] [address]- 2011 May, [facility] [place] [facility] [address] [id number] [place] [address]- 8296 May, [facility] [place] [facility] [address] [id number] [place] [address]- 9131 May, [facility] [place] [facility] [address] [id number] [place] [address]- 0240 May, [facility] [place] [facility] [address] [id number] [place] [address]- 2444 May, [facility] [place] [facility] [address] [id number] [place] [address]- 8509 May, [facility] [place] [facility] [address] [id number] [place] [address]- 0893 May, [facility] [place] [facility] [address] [id number] [place] [address]- 8056 May, [facility] [place] [facility] [address] [id number] [place] [address]- 7956 May, [facility] [place] [facility] [address] [id number] [place] [address]- 5984 31 Mar, 2012 [facility] [place] [facility] [address] [id number] [place] [address]- 5187 31 Mar, 2012 [facility] [place] [facility] [address] [id number] [place] [address]- 5671 31 Mar, 2012 [facility] [place] [facility] [address] [id number] [place] [address]- 6611 31 Mar, 2012 [facility] [place] [facility] [address] [id number] [place] [address]- 3986 30 Mar, 2012 [facility] [place] [facility] [address] [id number] [place] [address]- 1694 29 Mar, 2012 [facility] [place] [facility] [address] [id number] [place] [address]- 2560 29 Mar, 2012 [facility] [place] [facility] [address] [id number] [place] [address]- 3036 29 Mar, 2012 [facility] [place] [facility] [address] [id number] [place] [address]- 6948 29 Mar, 2012 [facility] [place] [facility] [address] [id number] [place] [address]- 5832 Mar, 2012 [facility] [place] [facility] [address] [id number] [place] [address]- 9111 28 Mar, 2013 [facility] [place] [facility] [address] [id number] [place] [address]- 1867 24 Mar, 2012 [facility] [place] [facility] [address] [id number] [place] [address]- 2212 24 Mar, 2013 [facility] [place] [facility] [address] [id number] [place] [address]- 3632 23 Mar, 2012 [facility] [place] [facility] [address] [id number] [place] [address]- 6681 22 Mar, 2013 [facility] [place] [facility] [address] [id number] [place] [address]- 5741 Mar, [facility] [place] [facility] [address] [id number] [place] [address]- 6155 21 Mar, 2013 [facility] [place] [facility] [address] [id number] [place] [address]- 7347 18 Mar, 2013 [facility] [place] [facility] [address] [id number] [place] [address]- 9501 18 Mar, 2013 [facility] [place] [facility] [address] [id number] [place] [address]- 8341 18 Mar, 2013 [facility] [place] [facility] [address] [id number] [place] [address]- 6257 18 Mar, 2013 [facility] [place] [facility] [address] [id number] [place] [address]- 1705 14 Mar, 2013 [facility] [place] [facility] [address] [id number] [place] [address]- 8683 14 Mar, 2013 [facility] [place] [facility] [address] [id number] [place] [address]- 6562 10 Mar, 2013 [facility] [place] [facility] [address] [id number] [place] [address] 18 Mar, 2013 [facility] [place] [facility] [address] [id number] [place] [address] 12 Mar, 2013 [facility] [place] [facility] [address] [id number] [place] [address] 11 Mar, 2013 [facility] [place] [facility] [address] [id number] [place] [address] Jan, [facility] [place] [facility] [address] [id number] [place] [address] October, [facility] [place] [facility] [address] [id number] [place] [address] 22 Sep, 2012 [facility] [place] [facility] [address] [id number] [place] [address] 15 Sep, 2012 [facility] [place] [facility] [address] [id number] [place] [address] 07 Aug, 2012 [facility] [place] [facility] [address] [id number] [place] [address] 06 Aug, 2012 [facility] [place] [facility] [address] [id number] [place] [address] 46[address] 04 Aug, 2012 [facility] [place] [facility] [address] [id number] [place] [address] 17 Jul, 2012 [facility] [place] [facility] [address] [id number] [place] [address] 19 May, 2012 [facility] [place] [facility] [address] [id number] [place] [address] 19 May, 2012 [facility] [place] [facility] [address] [id number] [place] [address] 3977 18 May, 2012 [facility] [place] [facility] [address] [id number] [place] [address] 4708 18 May, 2012 [facility] [place] [facility] [address] [id number] [place] [address]- 4889 19 Mar, 2012 [facility] [place] [facility] [address] [id number] [place] [address]- 07[address] 19 Mar, 2012 [facility] [place] [facility] [address] [facility] [id number] [place] [address]- 5682 16 Mar, 2012 [facility] [place] [facility] [address] [id number] [place] [address]- 2546 25 Mar, 2012 [facility] [place] [facility] [address] [id number] [place] [address]- 2542 19 Mar, 2012 [facility] [place] [facility] [address] [id number] [place] [address]- 3042 13 Mar, 2012 [facility] [place] [facility] [address] [id number] [place] [address]- 2546 07 Mar, 2012 [facility] [place] [facility] [address] [id number] [place] [address]293 Jan, [facility] [place] [facility] [address] [id number] [place] [address] Jan, [facility] [place] [facility] [address] [id number] [place] [address] Jan, [facility] [place] [facility] [address] [id number] [place] [address] Jan, [facility] [place] [facility] [address] [id number] [place] [address] 8[address] Jan, [facility] [place] [facility] [address] [id number] [place] [address] 4776 Jan, [facility] [place] [facility] [address] [id number] [place] [address] 0973 Jan, [facility] [place] [facility] [address] [id number] [place] [address] 9[address] Jan, [facility] [place] [facility] [address] [id number] [place] [address]- [address]646 Jan, [facility] [place] [facility] [address] [id number] [place] [address]285 Jan, [facility] [place] [facility] [address] [id number] [place] [address] 0708 Jan, [facility] [place] [facility] [address] [id number] [place] [address] Jan, [facility] [place] [facility] [address] [id number] [place] [address]- 245[address] Jan, [facility] [place] [facility] [address] [id number] [place] [address]- [address] Jan, [facility] [place] [facility] [address] [id number] [place] [address]- 3260 Jan, [facility] [place] [facility] [address] [id number] [place] [address]368 Jan, [facility] [place] [facility] [address] [id number] [place] [address] 8029 Dec, [facility] [place] [facility] [address] [id number] [place] [address] Dec, [facility] [place] [facility] [address] [id number] [place] [address] Nov, [facility] [place] [facility] [address] [id number] [place] [address]- 7688 Nov, [facility] [place] [facility] [address] [id number] [place] [address] 4658 October, [facility] [place] [facility] [address] [id number] [place] [address]- 4[address] October, [facility] [place] [facility] [address] [id number] [place] [address] 4996 October, [facility] [place] [facility] [address] [id number] [place] [address]- 2260 Sep, [facility] [place] [facility] [address] [id number] [place] [address]- 9[address] Sep, [facility] [place] [facility] [address] [id number] [place] [address]- [address] 30 Aug, 2011 [facility] [place] [facility] [address] [id number] [place] [address]- 8781 Aug, [facility] [place] [facility] [address] [id number] [place] [address]- [address] Aug, [facility] [place] [facility] [address] [id number] [place] [address]- 0507 Aug, [facility] [place] [facility] [address] [id number] [place] [address]- 18[address] Aug, [facility] [place] [facility] [address] [id number] [place] [address]- 8611 14 Aug, 2011 [facility] [place] [facility] [address] [id number] [place] [address]- [address] 07 Aug, 2011 [facility] [place] [facility] [address] [id number] [place] [address]- 8[address] Jul, [facility] [place] [facility] [address] [id number] [place] [address]- 0[address] Jul, [facility] [place] [facility] [address] [id number] [place] [address]- 0736 Jul, [facility] [place] [facility] [address] [id number] [place] [address]- 5[address] May, [facility] [place] [facility] [address] [id number] [place] [address] 3317 May, [facility] [place] [facility] [address] [id number] [place] [address]- 6642 May, [facility] [place] [facility] [address] [id number] [place] [address]- 0987 May, [facility] [place] [facility] [address] [id number] [place] [address]- 8515 May, [facility] [place] [facility] [address] [id number] [place] [address] May, [facility] [place] [facility] [address] [id number] [place] [address] May, [facility] [place] [facility] [address] [id number] [place] [address] 25 Mar, 2011 [facility] [place] [facility] [address] [id number] [place] [address] 20 Mar, 2011 [facility] [place] [facility] [address] [id number] [place] [address] 19 Mar, 2011 [facility] [place] [facility] [address] [id number] [place] [address] 15 Mar, 2011 [facility] [place] [facility] [address] [id number] [place] [address] 27 Mar, 2010 [facility] [place] [facility] [address] [id number] [place] [address] Mar, [facility] [id number] [address] Jan, [facility] [id number] [address] May, [facility] [id number] [address] May, [facility] [id number] [place] [address] May, [facility] [id number] [place] [address] May, [facility] [id number] [place] [address] May, [facility] [id number] [address] May, [facility] [id number] [address] Mar, [facility] [id number] [address] Sep, IMMUNIZATIONS No Known Immunizations SOCIAL HISTORY Never Assessed REASON FOR VISIT kassie PLAN OF CARE Activity Details Follow Up prn Reason:WILLIE/Prophy VITAL SIGNS Height 64 in 2017-02-28 Blood pressure systolic 115 mmHg 2017-02-28 Blood pressure diastolic 67 mmHg 2017-02-28 MEDICATIONS Medication Instructions Dosage Frequency Start Date End Date Duration Status EpiPen 2-David 0.3 MG/0.3ML Injection repeat in 20 minutes Inject into thigh at first signs of anaphylaxis October, 30 days Active Omeprazole 40 MG Orally Once a day 1 capsule 24h 90 days Active Ventolin HFA 108 (90 Base) MCG/ACT Inhalation every 4 hrs 2 puffs as needed 4h Aug, Active Lexapro 20 mg Orally Once a day 2 tablets 24h 90 days Active Xanax 1 MG Orally 3 times a day 1 tablet 8h Aug, 28 days Active Topamax 25 MG Orally Twice a day 3 tablet 12h Nov, 30 days Active Advair Diskus 250-50 MCG/DOSE Inhalation Twice a day 1 puff 12h 13 Sep, 2016 Active Albuterol Sulfate (2.5 MG/3ML) 0.083% Inhalation Three times a day 3 ml 8h Aug, Active Toviaz 4 MG Orally Once a day 1 tablet 24h October, 90 days Active Amoxicillin Active Singulair 10 MG Orally Once a day 1 tablet in the evening 24h Active Hydrocodone-Acetaminophen 7.5-325 MG Orally twice a day 1 tablet as needed 12h Jan, Mar, 28 days Active Flonase 50 MCG/ACT Nasally twice a day 1 spray in each nostril 12h Jan, 30 day(s) Active RESULTS No Results PROCEDURES Procedure Date Ordered Result Body Site LTD ORAL EVALUATION - PROBLEM FOCUS Feb 28, 2017 INTRAORL-PERIAPICAL 1 FILM [id number] Feb 28, 2017 PANORAMIC FILM SEE ALSO CODE [id number] Feb 28, 2017 INSTRUCTIONS MEDICATIONS ADMINISTERED No Known Medications [...]
--- OUTSIDE RECORDS SUMMARY | 2018-01-25 16:19 | XMS REPORT ---
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 [place] [facility] [address] [id number] [place] [address]- 4178 08 Mar, 2014 [facility] [place] [facility] [address] [id number] [place] [address]- 9718 Mar, [facility] [place] [facility] [address] [id number] [place] [address]- 0695 Mar, [facility] [place] [facility] [address] [id number] [place] [address]- 0766 Jan, [facility] [place] [facility] [address] [id number] [place] [address]- 3305 Jan, [facility] [place] [facility] [address] [id number] [place] [address]- 0010 Jan, [facility] [place] [facility] [address] [id number] [place] [address]- 5272 Jan, [facility] [place] [facility] [address] [id number] [place] [address]- 1385 Jan, [facility] [place] [facility] [address] [id number] [place] [address]- 5119 Jan, [facility] [place] [facility] [address] [id number] [place] [address]- 6208 Jan, [facility] [place] [facility] [address] [id number] [place] [address]- 5683 Jan, [facility] [place] [facility] [address] [id number] [place] [address]- 8292 Jan, [facility] [place] [facility] [address] [id number] [place] [address]- 4745 Dec, [facility] [place] [facility] [address] [id number] [place] [address]- 9682 Dec, [facility] [place] [facility] [address] [id number] [place] [address]- 2156 Dec, [facility] [place] [facility] [address] [id number] [place] [address]- 8188 Dec, [facility] [place] [facility] [address] [id number] [place] [address]- 7094 Dec, [facility] [place] [facility] [address] [id number] [place] [address]- 8255 Dec, [facility] [place] [facility] [address] [id number] [place] [address]- 1602 Dec, [facility] [place] [facility] [address] [id number] [place] [address]- 4505 Dec, [facility] [place] [facility] [address] [id number] [place] [address]- 4035 Dec, [facility] [place] [facility] [address] [id number] [place] [address]- 4563 October, [facility] [place] [facility] [address] [id number] [place] [address]- 1735 October, [facility] [place] [facility] [address] [id number] [place] [address]- 5379 Sep, [facility] [place] [facility] [address] [facility] [id number] [place] [address]- 7452 Sep, [facility] [place] [facility] [address] [id number] [place] [address]- 5262 Aug, [facility] [place] [facility] [address] [id number] [place] [address]- 4016 Aug, [facility] [place] [facility] [address] [facility] [id number] [place] [address]- 1239 Aug, [facility] [place] [facility] [address] [facility] [id number] [place] [address]- 3463 Aug, [facility] [place] [facility] [address] [id number] [place] [address]- 9592 Aug, [facility] [place] [facility] [address] [facility] [id number] [place] [address]- 7563 Aug, [facility] [place] [facility] [address] [facility] [id number] [place] [address]- 5835 Aug, [facility] [place] [facility] [address] [facility] [id number], [place] [address]- 6963 Aug, [facility] [place] [facility] [address] [facility] [id number], [place] [address]- 7089 Aug, [facility] [place] [facility] [address] [facility] [id number] [place] [address]- 1022 Aug, [facility] [place] [facility] [address] [facility] [id number], [place] [address]- 8709 Aug, [facility] [place] [facility] [address] [facility] [id number], [place] [address]- 5255 Jul, [facility] [place] [facility] [address] [id number] [place] [address]- 0245 Jul, [facility] [place] [facility] [address] [id number] [place] [address]- 9864 May, [facility] [place] [facility] [address] [id number] [place] [address] 2546 May, [facility] [place] [facility] [address] [id number] [place] [address]- 8826 May, [facility] [place] [facility] [address] [id number] [place] [address] 2548 May, [facility] [place] [facility] [address] [id number] [place] [address]- 1169 May, [facility] [place] [facility] [address] [id number] [place] [address]- 6325 May, [facility] [place] [facility] [address] [id number] [place] [address]- 5297 May, [facility] [place] [facility] [address] [id number] [place] [address]- 8659 May, [facility] [place] [facility] [address] [id number] [place] [address]- 8708 May, [facility] [place] [facility] [address] [id number] [place] [address]- 3525 May, [facility] [place] [facility] [address] [id number] [place] [address]- 9555 May, [facility] [place] [facility] [address] [id number] [place] [address] 2549 May, [facility] [place] [facility] [address] [id number] [place] [address] 2541 May, [facility] [place] [facility] [address] [id number] [place] [address]- 2545 May, [facility] [place] [facility] [address] [id number] [place] [address]- 8468 May, [facility] [place] [facility] [address] [id number] [place] [address]- 5703 May, [facility] [place] [facility] [address] [id number], [place] [address]- 6520 May, [facility] [place] [facility] [address] [id number], [place] [address]- 0345 May, [facility] [place] [facility] [address] [id number], [place] [address]- 3109 May, [facility] [place] [facility] [address] [id number] [place] [address]- 8673 May, [facility] [place] [facility] [address] [id number], [place] [address]- 2444 May, [facility] [place] [facility] [address] [id number], [place] [address]- 1704 May, [facility] [place] [facility] [address] [id number], [place] [address]- 7821 May, [facility] [place] [facility] [address] [id number], [place] [address]- 2289 May, [facility] [place] [facility] [address] [id number], [place] [address]- 6627 May, [facility] [place] [facility] [address] [id number], [place] [address]- 9565 May, [facility] [place] [facility] [address] [id number], [place] [address]- 7576 May, [facility] [place] [facility] [address] [id number], [place] [address]- 7622 May, [facility] [place] [facility] [address] [id number], [place] [address]- 2224 May, [facility] [place] [facility] [address] [id number], [place] [address]- 5822 May, [facility] [place] [facility] [address] [id number] [place] [address]- 0169 31 Mar, 2012 [facility] [place] [facility] [address] [id number] [place] [address]- 9527 31 Mar, 2012 [facility] [place] [facility] [address] [id number] [place] [address]- 8847 31 Mar, 2012 [facility] [place] [facility] [address] [id number] [place] [address]- 1822 31 Mar, 2012 [facility] [place] [facility] [address] [id number] [place] [address]- 1793 30 Mar, 2012 [facility] [place] [facility] [address] [id number] [place] [address]- 8351 29 Mar, 2012 [facility] [place] [facility] [address] [id number] [place] [address]- 7146 29 Mar, 2012 [facility] [place] [facility] [address] [id number] [place] [address]- [address]557 29 Mar, 2012 [facility] [place] [facility] [address] [id number] [place] [address] 29 Mar, 2012 [facility] [place] [facility] [address] [id number] [place] [address] 58[address] 28 Mar, 2012 [facility] [place] [facility] [address] [id number] [place] [address] 4363 28 Mar, 2012 [facility] [place] [facility] [address] [id number] [place] [address]- 5896 24 Mar, 2012 [facility] [place] [facility] [address] [id number] [place] [address] 9147 24 Mar, 2012 [facility] [place] [facility] [address] [id number] [place] [address] 7367 23 Mar, 2012 [facility] [place] [facility] [address] [id number] [place] [address] 0679 22 Mar, 2012 [facility] [place] [facility] [address] [id number] [place] [address] 7451 21 Mar, 2013 [facility] [place] [facility] [address] [id number] [place] [address] 1921 21 Mar, 2013 [facility] [place] [facility] [address] [id number] [place] [address] 6650 18 Mar, 2013 [facility] [place] [facility] [address] [id number] [place] [address]- 8374 18 Mar, 2013 [facility] [place] [facility] [address] [id number] [place] [address] 6238 18 Mar, 2013 [facility] [address] [id number] [place] [address] 0805 18 Mar, 2013 [facility] [place] [facility] [address] [id number] [place] [address]- 7840 14 Mar, 2013 [facility] [address] [id number] [place] [address]- 2628 14 Mar, 2013 [facility] [address] [id number] [place] [address]- 9328 10 Mar, 2013 [facility] [place] [facility] [address] [id number] [place] [address] 3836 18 Mar, 2013 [facility] [place] [facility] [address] [id number] [place] [address] 8924 12 Mar, 2013 [facility] [place] [facility] [address] [id number] [place] [address]- 1134 11 Mar, 2013 [facility] [place] [facility] [address] [id number], [place] [address] Jan, [facility] [place] [facility] [address] [id number] [place] [address] 74[address] October, [facility] [place] [facility] [address] [id number] [place] [address] 3034 22 Sep, 2012 [facility] [place] [facility] [address] [id number] [place] [address] 8116 15 Sep, 2012 [facility] [place] [facility] [address] [id number], [place] [address] 07 Aug, 2012 [facility] [address] [id number] [place] [address] 6371 06 Aug, 2012 [facility] [place] [facility] [address] [id number], [place] [address] 3226 04 Aug, 2012 [facility] [address] [facility] [id number] [place] [address] 3135 17 Jul, 2012 [facility] [place] [facility] [address] [id number] [place] [address] 8947 19 May, 2012 [facility] [address] [id number] [place] [address] 2110 May, [facility] [place] [facility] [address] [facility] [id number] [place] [address] 9342 18 May, 2012 [facility] [address] [facility] [id number], [place] [address] 4[address] 18 May, 2012 [facility] [place] [facility] [address] [facility] [id number] [place] [address] 9110 19 Mar, 2012 [facility] [address] [facility] [id number] [place] [address] 2207 19 Mar, 2012 [facility] [place] [facility] [address] [facility] [id number], [place] [address] 9245 16 Mar, 2012 [facility] [address] [facility] [id number], [place] [address]- 2420 25 Mar, 2012 [facility] [place] [facility] [address] [id number], [place] [address] 9858 19 Mar, 2012 [facility] [place] [facility] [address] [id number], [place] [address] 7161 13 Mar, 2012 [facility] [place] [facility] [address] [facility] [id number], [place] [address] 5119 07 Mar, 2012 [facility] [place] [facility] [address] [facility] [id number], [place] [address]- 7703 30 Jan, 2012 [facility] [place] [facility] [address] [id number] [place] [address]- 3665 Jan, [facility] [place] [facility] [address] [id number] [place] [address]- 8276 Jan, [facility] [place] [facility] [address] [id number] [place] [address]- 2546 Jan, [facility] [place] [facility] [address] [id number] [place] [address] 2376 Jan, [facility] [place] [facility] [address] [id number] [place] [address]- 3740 Jan, [facility] [place] [facility] [address] [id number] [place] [address]- 9607 Jan, [facility] [place] [facility] [address] [id number] [place] [address]- 0671 Jan, [facility] [place] [facility] [address] [id number] [place] [address]- 3937 Jan, [facility] [place] [facility] [address] [id number] [place] [address]- 9028 Jan, [facility] [place] [facility] [address] [id number] [place] [address]- 3599 Jan, [facility] [place] [facility] [address] [id number] [place] [address] 6156 Jan, [facility] [place] [facility] [address] [id number] [place] [address]- 5026 Jan, [facility] [place] [facility] [address] [id number] [place] [address]- 5155 Jan, [facility] [place] [facility] [address] [id number] [place] [address]- 9361 Jan, [facility] [place] [facility] [address] [id number] [place] [address]- 2582 Jan, [facility] [place] [facility] [address] [id number] [place] [address] 7399 Dec, [facility] [place] [facility] [address] [id number] [place] [address]- 3781 Dec, [facility] [place] [facility] [address] [id number] [place] [address]- 4194 Nov, [facility] [place] [facility] [address] [id number] [place] [address]- 6445 Nov, [facility] [place] [facility] [address] [id number] [place] [address]- 7722 October, [facility] [place] [facility] [address] [id number] [place] [address]- 6899 October, [facility] [place] [facility] [address] [id number] [place] [address] October, [facility] [place] [facility] [address] [id number] [place] [address] Sep, [facility] [place] [facility] [address] [id number] [place] [address] Sep, [facility] [place] [facility] [address] [id number] [place] [address] 30 Aug, 2011 [facility] [place] [facility] [address] [id number] [place] [address] Aug, [facility] [place] [facility] [address] [id number] [place] [address] Aug, [facility] [place] [facility] [address] [id number] [place] [address] Aug, [facility] [place] [facility] [address] [id number] [place] [address] Aug, [facility] [place] [facility] [address] [id number] [place] [address] 14 Aug, 2011 [facility] [place] [facility] [address] [id number] [place] [address] Aug, [facility] [place] [facility] [address] [id number] [place] [address] 27 Jul, 2011 [facility] [address] [id number] [place] [address] Jul, [facility] [address] [id number] [place] [address] 20 Jul, 2011 [facility] [address] [id number] [place] [address] 28 May, 2011 [facility] [address] [id number] [place] [address] 28 May, 2011 [facility] [address] [id number] [place] [address] May, [facility] [address] [id number] [place] [address] May, [facility] [address] [id number] [place] [address] May, [facility] [address] [id number] [place] [address] 13 May, 2011 [facility] [address] [id number] [place] [address] May, [facility] [address] [id number] [place] [address] 25 Mar, 2011 [facility] [address] [id number] [place] [address] 20 Mar, 2011 [facility] [address] [id number] [place] [address] 19 Mar, 2011 [facility] [address] [id number] [place] [address] 15 Mar, 2011 [facility] [address] [id number] [place] [address] 27 Mar, 2010 [facility] [address] [id number] [place] [address] 13 Mar, 2010 [facility] [address] [id number] [address] Jan, [facility] [id number], [place] [address] May, [facility] [id number], [place] [address] May, [facility] [id number], [place] [address] May, [facility] [id number], [place] [address] May, [facility] [id number], [place] [address] May, [facility] [id number], [place] [address] May, [facility] [id number], [place] [address] Mar, [facility] [address] [id number], [place] [address] Sep, IMMUNIZATIONS No Known Immunizations SOCIAL HISTORY Never Assessed REASON FOR VISIT 05/06/2017 PLAN OF CARE VITAL SIGNS MEDICATIONS Unknown [...]
--- NOTE | 2018-01-25 16:23 | ED EENT ---
History of Present Illness General Chief Complaint: Dental Problems/Pain Stated Complaint: DENTAL INFECTION Nursing Triage Note: pt states dental pain x4 days. states started on clindamycin four days ago along with tylenol and motrin not helping pain. Source: patient Exam Limitations: no limitations History of Present Illness Date Seen by Provider: Jan 25, 2018 Time Seen by Provider: 16:17 Initial Comments to ER with left lower dental pain 4 days. She saw [facility] at the onset of this and was given a prescription for clindamycin. She's been using Tylenol and Motrin relief. There is a bit of swelling to the left mandible. No fevers or chills. She has not seen a dentist or made an appointment with [facility]. 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, (Reported) Escitalopram Oxalate 20 Mg Tablet, 40 MG PO DAILY, (Reported) TAKES 2 (20MG) TABLETS Hydrocodone Bit/Acetaminophen 1 Tab Tab, 1-2 EACH PO Q6H PRN for BREAKTHROUGH PAIN Prescribed by: AGATHA DREW on 08/03/17 0236 Metoprolol Succinate 50 Mg Tab.er.24h, 50 MG PO DAILY, (Reported) Ondansetron 8 Mg Tab.rapdis, 8 MG PO Q6H PRN for NAUSEA/VOMITING-1ST LINE Prescribed by: ROXANNE WADE on 01/28/17 1644 Ondansetron 4 Mg Tab.rapdis, 4 MG PO Q6H PRN for NAUSEA/VOMITING-1ST LINE Prescribed by: AGATHA DREW on 08/03/17 023 Prednisone 20 Mg Tab, 40 MG PO DAILY Prescribed by: ROXANNE WADE on 10/07/17 2244 Patient Home Medication List Home Medication List Reviewed: Yes Review of Systems Constitutional: no symptoms reported Eyes: No Symptoms Reported Ears: No Symptoms Reported Nose: no symptoms reported Mouth: see HPI, pain, swelling Throat: no symptoms reported Respiratory: no symptoms reported Cardiovascular: no symptoms reported Musculoskeletal: no symptoms reported Past Uumhfpt-Drssvk-Hwcjpl Hx Patient Social History Type Used: Cigarettes 2nd Hand Smoke Exposure: Yes Recent Foreign Travel: No Contact w/Someone Who Travel: No Recent Infectious Disease Expo: No Recent Hopitalizations: No Immunizations Up To Date Tetanus Booster (TDap): Less than 5yrs PED Vaccines UTD: Yes Date of Pneumonia Vaccine: Apr 09, 2013 Date of Influenza Vaccine: Apr 09, 2016 Seasonal Allergies Seasonal Allergies: No Past Medical History Surgeries: Yes Appendectomy, Orthopedic Respiratory: No Asthma, Emphysema Currently Using CPAP: No Currently Using BIPAP: No Cardiac: No Heart Murmur, Hypertension Neurological: No Reproductive Disorders: No Female Reproductive Disorders: Denies Sexually Transmitted Disease: No HIV/AIDS: No Genitourinary: No Kidney Infection, Bladder Infection, Kidney Stones Gastrointestinal: No Musculoskeletal: No Chronic Back Pain Endocrine: No Diabetes, Non-Insulin dep HEENT: No Loss of Vision: Denies Hearing Impairment: Denies Cancer: No Psychosocial: Yes Anxiety, Depression Integumentary: No Recent Skin Changes Blood Disorders: No Adverse Reaction/Blood Tranf: No (never had a transfusion) Family Medical History Cardiovascular disease 19 FATHER Hypertension 19 FATHER Myocardial infarction 19 FATHER No Family History of: Diabetes mellitus Respiratory disorder Seizure disorder No Pertinent Family Hx, Heart Disease, Cancer, Renal Disease Physical Exam Vital Signs Vital Signs - First Documented 01/25/18 16:08 Temp 99.0 Pulse 60 Resp 18 B/P (MAP) 129/76 (93) Pulse Ox 99 O2 Delivery Room Air Height, Weight, BMI Height: 5'4.00" Weight: 121lbs. 0oz. 54.688457xd; 22.1 BMI Method:Estimated General Appearance: WD/WN, no apparent distress Eyes: bilateral eye normal inspection, bilateral eye PERRL, bilateral eye EOMI Ears: bilateral ear auricle normal, bilateral ear canal normal, bilateral ear TM normal Mouth/Throat: normal mouth inspection, mandibular swelling (minimal left mandibular swelling) Respiratory: normal breath sounds, no respiratory distress, no accessory muscle use Gastrointestinal: normal bowel sounds, non tender Neurologic/Psychiatric: alert, normal mood/affect Skin: normal color, warm/dry Progress/Results/Core Measures Results/Orders My Orders Orders - TONO CHASE APRN Ketorolac Injection (Toradol Injection) (01/25/18 16:15) Bupivacaine 0.5% Injection (Sensorcaine (01/25/18 16:15) Lidocaine/Epi 2% 1:100,000 (Xylocaine/Ep (01/25/18 16:15) Vital Signs/I&O 01/25/18 16:08 Temp 99.0 Pulse 60 Resp 18 B/P (MAP) 129/76 (93) Pulse Ox 99 O2 Delivery Room Air Blood Pressure Mean: 93 Departure Communication (Admissions) 1624-I will do a left inferior alveolar nerve block using 1 mL of 2% lidocaine with epinephrine and 1 mL of 0.5% bupivacaine. Impression Primary Impression: Dental infection Disposition: 01 HOME, SELF-CARE Condition: Stable Departure-Patient Inst. Decision time for Depature: 16:20 Referrals: [facility]/CINDY (PCP) Primary Care Physician MARIA DE JESUS MERCADO (Family) Primary Care Physician Patient Instructions: Dental Pain (DC), Tooth Abscess (DC) Add. Discharge Instructions: 1. Call [facility] on Saturday to make an appointment to be seen 2. Continue Tylenol and Motrin and warm compresses to this area. Continue the antibiotics. All discharge instructions reviewed with patient and/or family. Voiced understanding. Images Mouth/Nose 1 - Caries, Swelling, Tenderness TONO CHASE APRN Jan 25, 2018 16:23
--- OUTSIDE RECORDS SUMMARY | 2018-01-25 16:23 | XMS REPORT ---
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 [id number] [place] [address]- 3418 24 Mar, 2014 [facility] [place] [facility] [address] [id number] [place] [address]- 0057 08 Mar, 2014 [facility] [place] [facility] [address] [id number] [place] [address]- 7138 08 Mar, 2014 [facility] [place] [facility] [address] [id number] [place] [address]- 5649 Mar, [facility] [place] [facility] [address] [id number] [place] [address]- 6208 Mar, [facility] [place] [facility] [address] [id number] [place] [address]- 6272 Jan, [facility] [place] [facility] [address] [id number] [place] [address]- 2253 Jan, [facility] [place] [facility] [address] [id number] [place] [address]- 5655 Jan, [facility] [place] [facility] [address] [id number] [facility] [place] [address]- 9627 Jan, [facility] [place] [facility] [address] [id number] [place] [address]- 7103 Jan, [facility] [place] [facility] [address] [id number] [place] [address]- 5479 Jan, [facility] [place] [facility] [address] [id number] [place] [address]- 0190 Jan, [facility] [place] [facility] [address] [id number] [place] [address]- 1426 Jan, [facility] [place] [facility] [address] [id number] [place] [address]- 8268 Jan, [facility] [place] [facility] [address] [id number] [place] [address]- 4522 Dec, [facility] [place] [facility] [address] [id number] [place] [address]- 4720 Dec, [facility] [place] [facility] [address] [id number] [place] [address]- 2863 Dec, [facility] [place] [facility] [address] [id number] [place] [address]- 2951 Dec, [facility] [place] [facility] [address] [id number] [place] [address]- 6281 Dec, [facility] [place] [facility] [address] [id number] [place] [address]- 9312 Dec, [facility] [place] [facility] [address] [id number] [place] [address]- 6513 Dec, [facility] [place] [facility] [address] [id number] [place] [address]- 9289 Dec, [facility] [place] [facility] [address] [id number] [place] [address]- 6780 Dec, [facility] [place] [facility] [address] [id number] [place] [address]- 7630 October, [facility] [place] [facility] [address] [id number] [place] [address]- 0070 October, [facility] [place] [facility] [address] [id number] [place] [address]- 0468 Sep, [facility] [place] [facility] [address] [facility] [id number] [place] [address]- 6471 Sep, [facility] [place] [facility] [address] [id number] [place] [address]- 2626 Aug, [facility] [place] [facility] [address] [id number] [place] [address]- 2990 Aug, [facility] [place] [facility] [address] [facility] [id number] [place] [address]- 7894 Aug, [facility] [place] [facility] [address] [facility] [id number] [place] [address]- 0313 Aug, [facility] [place] [facility] [address] [id number] [place] [address]- 4850 Aug, [facility] [place] [facility] [address] [facility] [id number] [place] [address]- 1910 Aug, [facility] [place] [facility] [address] [facility] [id number] [place] [address]- 7986 Aug, [facility] [place] [facility] [address] [facility] [id number], [place] [address]- 5620 Aug, [facility] [place] [facility] [address] [facility] [id number], [place] [address]- 8784 Aug, [facility] [place] [facility] [address] [facility] [id number] [place] [address]- 7979 Aug, [facility] [place] [facility] [address] [facility] [id number], [place] [address]- 6573 Aug, [facility] [place] [facility] [address] [facility] [id number], [place] [address]- 6207 Jul, [facility] [place] [facility] [address] [id number] [place] [address]- 3388 Jul, [facility] [place] [facility] [address] [id number] [place] [address]- 4844 May, [facility] [place] [facility] [address] [id number] [place] [address] 2546 May, [facility] [place] [facility] [address] [id number] [place] [address]- 7076 May, [facility] [place] [facility] [address] [id number] [place] [address] 2547 May, [facility] [place] [facility] [address] [id number] [place] [address]- 2819 May, [facility] [place] [facility] [address] [id number] [place] [address]- 8223 May, [facility] [place] [facility] [address] [id number] [place] [address]- 8287 May, [facility] [place] [facility] [address] [id number] [place] [address]- 7891 May, [facility] [place] [facility] [address] [id number] [place] [address]- 3252 May, [facility] [place] [facility] [address] [id number] [place] [address]- 5051 May, [facility] [place] [facility] [address] [id number] [place] [address]- 2367 May, [facility] [place] [facility] [address] [id number] [place] [address] 2542 May, [facility] [place] [facility] [address] [id number] [place] [address] 254 May, [facility] [place] [facility] [address] [id number] [place] [address]- 2543 May, [facility] [place] [facility] [address] [id number] [place] [address]- 6361 May, [facility] [place] [facility] [address] [id number] [place] [address]- 0753 May, [facility] [place] [facility] [address] [id number], [place] [address]- 8332 May, [facility] [place] [facility] [address] [id number], [place] [address]- 3242 May, [facility] [place] [facility] [address] [id number], [place] [address]- 4813 May, [facility] [place] [facility] [address] [id number] [place] [address]- 5792 May, [facility] [place] [facility] [address] [id number], [place] [address]- 6622 May, [facility] [place] [facility] [address] [id number], [place] [address]- 4824 May, [facility] [place] [facility] [address] [id number], [place] [address]- 1548 May, [facility] [place] [facility] [address] [id number], [place] [address]- 4044 May, [facility] [place] [facility] [address] [id number], [place] [address]- 6210 May, [facility] [place] [facility] [address] [id number], [place] [address]- 9308 May, [facility] [place] [facility] [address] [id number], [place] [address]- 4946 May, [facility] [place] [facility] [address] [id number], [place] [address]- 6534 May, [facility] [place] [facility] [address] [id number], [place] [address]- 4021 May, [facility] [place] [facility] [address] [id number], [place] [address]- 3146 May, [facility] [place] [facility] [address] [id number] [place] [address]- 7502 31 Mar, 2012 [facility] [place] [facility] [address] [id number] [place] [address]- 6753 31 Mar, 2012 [facility] [place] [facility] [address] [id number] [place] [address]- 0997 31 Mar, 2012 [facility] [place] [facility] [address] [id number] [place] [address]- 7689 31 Mar, 2012 [facility] [place] [facility] [address] [id number] [place] [address]- 3216 30 Mar, 2012 [facility] [place] [facility] [address] [id number] [place] [address]- 2265 29 Mar, 2012 [facility] [place] [facility] [address] [id number] [place] [address]- 8986 29 Mar, 2012 [facility] [place] [facility] [address] [id number] [place] [address]- 9406 29 Mar, 2012 [facility] [place] [facility] [address] [id number] [place] [address]- 4288 29 Mar, 2012 [facility] [place] [facility] [address] [id number] [place] [address]- 8790 28 Mar, 2012 [facility] [place] [facility] [address] [id number] [place] [address]- 7773 28 Mar, 2012 [facility] [place] [facility] [address] [id number] [place] [address]- 6621 24 Mar, 2012 [facility] [place] [facility] [address] [id number] [place] [address]- 5555 24 Mar, 2012 [facility] [place] [facility] [address] [id number] [place] [address]- 7307 23 Mar, 2012 [facility] [place] [facility] [address] [id number] [place] [address]- 2783 22 Mar, 2012 [facility] [place] [facility] [address] [id number] [place] [address]- 5605 21 Mar, 2013 [facility] [place] [facility] [address] [id number] [place] [address]- 1863 21 Mar, 2013 [facility] [place] [facility] [address] [id number] [place] [address]- 4410 18 Mar, 2013 [facility] [place] [facility] [address] [id number] [place] [address]- 8770 18 Mar, 2013 [facility] [place] [facility] [address] [id number] [place] [address]- 5312 18 Mar, 2013 [facility] [address] [id number] [place] [address]- 6944 18 Mar, 2013 [facility] [place] [facility] [address] [id number] [place] [address]- 7830 14 Mar, 2013 [facility] [address] [id number] [place] [address]- 3907 14 Mar, 2013 [facility] [address] [id number] [place] [address]- 1627 10 Mar, 2013 [facility] [place] [facility] [address] [id number] [place] [address]- 7786 18 Mar, 2013 [facility] [place] [facility] [address] [id number] [place] [address]- 9898 12 Mar, 2013 [facility] [place] [facility] [address] [id number] [place] [address]- 6117 11 Mar, 2013 [facility] [place] [facility] [address] [id number], [place] [address]- 2341 Jan, [facility] [place] [facility] [address] [id number] [place] [address]- 5073 October, [facility] [place] [facility] [address] [id number] [place] [address]- 7435 22 Sep, 2012 [facility] [place] [facility] [address] [id number] [place] [address]- 5920 15 Sep, 2012 [facility] [place] [facility] [address] [id number], [place] [address] 07 Aug, 2012 [facility] [address] [id number] [place] [address] 06 Aug, 2012 [facility] [place] [facility] [address] [id number], [place] [address] 04 Aug, 2012 [facility] [address] [facility] [id number] [place] [address] 17 Jul, 2012 [facility] [place] [facility] [address] [id number] [place] [address] 19 May, 2012 [facility] [address] [id number] [place] [address] May, [facility] [place] [facility] [address] [facility] [id number] [place] [address] 18 May, 2012 [facility] [address] [facility] [id number], [place] [address] 18 May, 2012 [facility] [place] [facility] [address] [facility] [id number] [place] [address] 19 Mar, 2012 [facility] [address] [facility] [id number] [place] [address] 19 Mar, 2012 [facility] [place] [facility] [address] [facility] [id number], [place] [address] 16 Mar, 2012 [facility] [address] [facility] [id number], [place] [address] 25 Mar, 2012 [facility] [place] [facility] [address] [id number], [place] [address] 19 Mar, 2012 [facility] [place] [facility] [address] [id number], [place] [address] 35[address] 13 Mar, 2012 [facility] [place] [facility] [address] [facility] [id number], [place] [address] 07 Mar, 2012 [facility] [place] [facility] [address] [facility] [id number], [place] [address] 30 Jan, 2012 [facility] [place] [facility] [address] [id number] [place] [address] Jan, [facility] [place] [facility] [address] [id number] [place] [address] Jan, [facility] [place] [facility] [address] [id number] [place] [address] Jan, [facility] [place] [facility] [address] [id number] [place] [address] Jan, [facility] [place] [facility] [address] [id number] [place] [address] Jan, [facility] [place] [facility] [address] [id number] [place] [address] 5698 Jan, [facility] [place] [facility] [address] [id number] [place] [address] Jan, [facility] [place] [facility] [address] [id number] [place] [address] 40[address] Jan, [facility] [place] [facility] [address] [id number] [place] [address] 12[address] Jan, [facility] [place] [facility] [address] [id number] [place] [address] Jan, [facility] [place] [facility] [address] [id number] [place] [address] 2314 Jan, [facility] [place] [facility] [address] [id number] [facility] [place] [address] Jan, [facility] [place] [facility] [address] [id number] [place] [address] Jan, [facility] [place] [facility] [address] [id number] [place] [address] Jan, [facility] [place] [facility] [address] [id number] [place] [address] Jan, [facility] [place] [facility] [address] [id number] [place] [address] Dec, [facility] [place] [facility] [address] [id number] [place] [address] Dec, [facility] [place] [facility] [address] [id number] [place] [address] Nov, [facility] [place] [facility] [address] [id number] [place] [address] Nov, [facility] [place] [facility] [address] [id number] [place] [address] October, [facility] [place] [facility] [address] [id number] [place] [address]- [address] October, [facility] [place] [facility] [address] [id number] [place] [address]846 October, [facility] [place] [facility] [address] [id number] [place] [address] Sep, [facility] [place] [facility] [address] [id number] [place] [address]- 0049 Sep, [facility] [place] [facility] [address] [id number] [place] [address]- [address] 30 Aug, 2011 [facility] [place] [facility] [address] [id number] [place] [address] 9[address] Aug, [facility] [place] [facility] [address] [id number] [place] [address]- [address] Aug, [facility] [place] [facility] [address] [id number] [place] [address]- 1236 Aug, [facility] [place] [facility] [address] [id number] [place] [address] Aug, [facility] [place] [facility] [address] [id number] [place] [address]- 4046 14 Aug, 2011 [facility] [place] [facility] [address] [id number] [place] [address]- 2546 Aug, [facility] [place] [facility] [address] [id number] [place] [address]365 27 Jul, 2011 [facility] [address] [id number] [place] [address] Jul, [facility] [address] [id number] [place] [address]40 20 Jul, 2011 [facility] [address] [id number] [place] [address] 28 May, 2011 [facility] [address] [id number] [place] [address] 8[address] 28 May, 2011 [facility] [address] [id number] [place] [address]- 6[address] May, [facility] [address] [id number] [place] [address] 8054 May, [facility] [address] [id number] [place] [address]- [address]171 May, [facility] [address] [id number] [place] [address]- 46[address] 13 May, 2011 [facility] [address] [id number] [place] [address]- 8767 May, [facility] [address] [address] [id number] [place] [address] 25 Mar, 2011 [facility] [address] [id number] [place] [address] 20 Mar, 2011 [facility] [address] [id number] [place] [address] 19 Mar, 2011 [facility] [address] [id number] [place] [address] 15 Mar, 2011 [facility] [address] [id number] [place] [address] 27 Mar, 2010 [facility] [address] [id number] [place] [address] 13 Mar, 2010 [facility] [address] [id number] [address] Jan, [facility] [id number], [place] [address] May, [facility] [address] [id number], [place] [address] May, [facility] [id number], [place] [address] May, [facility] [id number], [place] [address] May, [facility] [id number], [place] [address] May, [facility] [id number], [place] [address] May, [facility] [id number], [place] [address] Mar, [facility] [address] [id number], [place] [address] Sep, IMMUNIZATIONS No Known Immunizations SOCIAL HISTORY [...]
--- OUTSIDE RECORDS SUMMARY | 2018-01-25 16:25 | XMS REPORT ---
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 [id number] [place] [address]- 6532 Mar, [facility] [place] [facility] [address] [id number] [place] [address]- 4616 Mar, [facility] [place] [facility] [address] [id number] [place] [address]- 6477 Jan, [facility] [place] [facility] [address] [id number] [place] [address]- 7880 Jan, [facility] [place] [facility] [address] [id number] [place] [address]- 5381 Jan, [facility] [place] [facility] [address] [id number] [facility] [place] [address]- 7328 Jan, [facility] [place] [facility] [address] [id number] [place] [address]- 4077 Jan, [facility] [place] [facility] [address] [id number] [place] [address]- 6668 Jan, [facility] [place] [facility] [address] [id number] [place] [address]- 2131 Jan, [facility] [place] [facility] [address] [id number] [place] [address]- 9164 Jan, [facility] [place] [facility] [address] [id number] [place] [address]- 7003 Jan, [facility] [place] [facility] [address] [id number] [place] [address]- 6454 Dec, [facility] [place] [facility] [address] [id number] [place] [address]- 9749 Dec, [facility] [place] [facility] [address] [id number] [place] [address]- 8846 Dec, [facility] [place] [facility] [address] [id number] [place] [address]- 4797 Dec, [facility] [place] [facility] [address] [id number] [place] [address]- 5484 Dec, [facility] [place] [facility] [address] [id number] [place] [address]- 1030 Dec, [facility] [place] [facility] [address] [id number] [place] [address]- 7237 Dec, [facility] [place] [facility] [address] [id number] [place] [address]- 4568 Dec, [facility] [place] [facility] [address] [id number] [place] [address]- 6241 Dec, [facility] [place] [facility] [address] [id number] [place] [address]- 5881 October, [facility] [place] [facility] [address] [id number] [place] [address]- 7796 October, [facility] [place] [facility] [address] [id number] [place] [address]- 0792 Sep, [facility] [place] [facility] [address] [facility] [id number] [place] [address]- 9196 Sep, [facility] [place] [facility] [address] [id number] [place] [address]- 9904 Aug, [facility] [place] [facility] [address] [id number] [place] [address]- 4767 Aug, [facility] [place] [facility] [address] [facility] [id number] [place] [address]- 6982 Aug, [facility] [place] [facility] [address] [facility] [id number] [place] [address]- 4234 Aug, [facility] [place] [facility] [address] [id number] [place] [address]- 5833 Aug, [facility] [place] [facility] [address] [facility] [id number] [place] [address]- 3763 Aug, [facility] [place] [facility] [address] [facility] [id number] [place] [address]- 5586 Aug, [facility] [place] [facility] [address] [facility] [id number], [place] [address]- 5368 Aug, [facility] [place] [facility] [address] [facility] [id number], [place] [address]- 4838 Aug, [facility] [place] [facility] [address] [facility] [id number] [place] [address]- 2533 Aug, [facility] [place] [facility] [address] [facility] [id number], [place] [address]- 2390 Aug, [facility] [place] [facility] [address] [facility] [id number], [place] [address]- 2196 Jul, [facility] [place] [facility] [address] [id number] [place] [address]- 1125 Jul, [facility] [place] [facility] [address] [id number] [place] [address]- 2667 May, [facility] [place] [facility] [address] [id number] [place] [address] 2546 May, [facility] [place] [facility] [address] [id number] [place] [address]- 5796 May, [facility] [place] [facility] [address] [id number] [place] [address] 254 May, [facility] [place] [facility] [address] [id number] [place] [address]- 9801 May, [facility] [place] [facility] [address] [id number] [place] [address]- 9440 May, [facility] [place] [facility] [address] [id number] [place] [address]- 8649 May, [facility] [place] [facility] [address] [id number] [place] [address]- 9699 May, [facility] [place] [facility] [address] [id number] [place] [address]- 0013 May, [facility] [place] [facility] [address] [id number] [place] [address]- 7209 May, [facility] [place] [facility] [address] [id number] [place] [address]- 6848 May, [facility] [place] [facility] [address] [id number] [place] [address] 254 May, [facility] [place] [facility] [address] [id number] [place] [address] 2542 May, [facility] [place] [facility] [address] [id number] [place] [address]- 2547 May, [facility] [place] [facility] [address] [id number] [place] [address]- 3179 May, [facility] [place] [facility] [address] [id number] [place] [address]- 4953 May, [facility] [place] [facility] [address] [id number], [place] [address]- 3352 May, [facility] [place] [facility] [address] [id number], [place] [address]- 2603 May, [facility] [place] [facility] [address] [id number], [place] [address]- 7349 May, [facility] [place] [facility] [address] [id number] [place] [address]- 6332 May, [facility] [place] [facility] [address] [id number], [place] [address] May, [facility] [place] [facility] [address] [id number], [place] [address] May, [facility] [place] [facility] [address] [id number], [place] [address] May, [facility] [place] [facility] [address] [id number], [place] [address] May, [facility] [place] [facility] [address] [id number], [place] [address] May, [facility] [place] [facility] [address] [id number], [place] [address] May, [facility] [place] [facility] [address] [id number], [place] [address] May, [facility] [place] [facility] [address] [id number], [place] [address] May, [facility] [place] [facility] [address] [id number], [place] [address] May, [facility] [place] [facility] [address] [id number], [place] [address] May, [facility] [place] [facility] [address] [id number] [place] [address] 31 Mar, 2012 [facility] [place] [facility] [address] [id number] [place] [address] 31 Mar, 2012 [facility] [place] [facility] [address] [id number] [place] [address] 31 Mar, 2012 [facility] [place] [facility] [address] [id number] [place] [address] 4029 31 Mar, 2012 [facility] [place] [facility] [address] [id number] [place] [address]64 30 Mar, 2012 [facility] [place] [facility] [address] [id number] [place] [address] 29 Mar, 2012 [facility] [place] [facility] [address] [id number] [place] [address] 29 Mar, 2012 [facility] [place] [facility] [address] [id number] [place] [address] 7911 29 Mar, 2012 [facility] [place] [facility] [address] [id number] [place] [address] 1879 29 Mar, 2012 [facility] [place] [facility] [address] [id number] [place] [address] 1483 28 Mar, 2012 [facility] [place] [facility] [address] [id number] [place] [address]- 2773 28 Mar, 2012 [facility] [place] [facility] [address] [id number] [place] [address]- [address]606 24 Mar, 2012 [facility] [place] [facility] [address] [id number] [place] [address] 6214 24 Mar, 2012 [facility] [place] [facility] [address] [id number] [place] [address] 23 Mar, 2012 [facility] [place] [facility] [address] [id number] [place] [address]- 4525 22 Mar, 2012 [facility] [place] [facility] [address] [id number] [place] [address]- 7344 21 Mar, 2013 [facility] [place] [facility] [address] [id number] [place] [address] 8818 21 Mar, 2013 [facility] [place] [facility] [address] [id number] [place] [address]- [address] 18 Mar, 2013 [facility] [place] [facility] [address] [id number] [place] [address]- 4[address] 18 Mar, 2013 [facility] [place] [facility] [address] [id number] [place] [address] 18 Mar, 2013 [facility] [address] [id number] [place] [address]- 6[address] 18 Mar, 2013 [facility] [place] [facility] [address] [id number] [place] [address] 3719 14 Mar, 2013 [facility] [address] [id number] [place] [address] 0472 14 Mar, 2013 [facility] [address] [id number] [place] [address]- [address] 10 Mar, 2013 [facility] [place] [facility] [address] [id number] [place] [address]- 1169 18 Mar, 2013 [facility] [place] [facility] [address] [id number] [place] [address]- 73[address] 12 Mar, 2013 [facility] [place] [facility] [address] [id number] [place] [address]- 2101 11 Mar, 2013 [facility] [place] [facility] [address] [id number], [place] [address] Jan, [facility] [place] [facility] [address] [id number] [place] [address] October, [facility] [place] [facility] [address] [id number] [place] [address] 22 Sep, 2012 [facility] [place] [facility] [address] [id number] [place] [address]100 15 Sep, 2012 [facility] [place] [facility] [address] [id number], [place] [address] 07 Aug, 2012 [facility] [address] [id number] [place] [address]- [address] 06 Aug, 2012 [facility] [place] [facility] [address] [id number], [place] [address] 04 Aug, 2012 [facility] [address] [facility] [id number] [place] [address]- [address]273 17 Jul, 2012 [facility] [place] [facility] [address] [id number] [place] [address]- [address] 19 May, 2012 [facility] [address] [id number] [place] [address]- 15[address] May, [facility] [place] [facility] [address] [facility] [id number] [place] [address]- [address] 18 May, 2012 [facility] [address] [facility] [id number], [place] [address] 18 May, 2012 [facility] [place] [facility] [address] [facility] [id number] [place] [address]- 0038 19 Mar, 2012 [facility] [address] [facility] [id number] [place] [address] 4132 19 Mar, 2012 [facility] [place] [facility] [address] [facility] [id number], [place] [address]- 5939 16 Mar, 2012 [facility] [address] [facility] [id number], [place] [address]- 4292 25 Mar, 2012 [facility] [place] [facility] [address] [id number], [place] [address]- 5265 19 Mar, 2012 [facility] [place] [facility] [address] [id number], [place] [address]- [address] 13 Mar, 2012 [facility] [place] [facility] [address] [facility] [facility] [id number], [place] [address] 07 Mar, 2012 [facility] [place] [facility] [address] [facility] [id number], [place] [address] 30 Jan, 2012 [facility] [place] [facility] [address] [id number] [place] [address] Jan, [facility] [place] [facility] [address] [id number] [place] [address] Jan, [facility] [place] [facility] [address] [id number] [place] [address] Jan, [facility] [place] [facility] [address] [id number] [place] [address] Jan, [facility] [place] [facility] [address] [id number] [place] [address] Jan, [facility] [place] [facility] [address] [id number] [place] [address] Jan, [facility] [place] [facility] [address] [id number] [place] [address] Jan, [facility] [place] [facility] [address] [id number] [place] [address] Jan, [facility] [place] [facility] [address] [id number] [place] [address] Jan, [facility] [place] [facility] [address] [id number] [place] [address] Jan, [facility] [place] [facility] [address] [id number] [place] [address] Jan, [facility] [place] [facility] [address] [id number] [facility] [place] [address] Jan, [facility] [place] [facility] [address] [id number] [place] [address] Jan, [facility] [place] [facility] [address] [id number] [place] [address] Jan, [facility] [place] [facility] [address] [id number] [place] [address] Jan, [facility] [place] [facility] [address] [id number] [place] [address] Dec, [facility] [place] [facility] [address] [id number] [place] [address] Dec, [facility] [place] [facility] [address] [id number] [place] [address] Nov, [facility] [place] [facility] [address] [id number] [place] [address] Nov, [facility] [place] [facility] [address] [id number] [place] [address] October, [facility] [place] [facility] [address] [id number] [place] [address] October, [facility] [place] [facility] [address] [id number] [place] [address] October, [facility] [place] [facility] [address] [id number] [place] [address] Sep, [facility] [place] [facility] [address] [id number] [place] [address] Sep, [facility] [place] [facility] [address] [id number] [place] [address] 30 Aug, 2011 [facility] [place] [facility] [address] [id number] [place] [address] Aug, [facility] [place] [facility] [address] [id number] [place] [address] Aug, [facility] [place] [facility] [address] [id number] [place] [address] Aug, [facility] [place] [facility] [address] [id number] [place] [address] Aug, [facility] [place] [facility] [address] [id number] [place] [address] 14 Aug, 2011 [facility] [place] [facility] [address] [id number] [place] [address] Aug, [facility] [place] [facility] [address] [id number] [place] [address] 27 Jul, 2011 [facility] [address] [id number] [place] [address] Jul, [facility] [address] [id number] [place] [address]39 20 Jul, 2011 [facility] [address] [id number] [place] [address] 28 May, 2011 [facility] [address] [id number] [place] [address] 28 May, 2011 [facility] [address] [id number] [place] [address] May, [facility] [address] [id number] [place] [address] 132[address] May, [facility] [address] [id number] [place] [address] May, [facility] [address] [id number] [place] [address] 13 May, 2011 [facility] [address] [id number] [place] [address]- [address] May, [facility] [address] [id number] [place] [address] 25 Mar, 2011 [facility] [address] [id number] [place] [address]776 20 Mar, 2011 [facility] [address] [id number] [place] [address] 7974 19 Mar, 2011 [facility] [address] [id number] [place] [address] 15 Mar, 2011 [facility] [address] [id number] [place] [address] 27 Mar, 2010 [facility] [address] [id number] [place] [address] 9163 13 Mar, 2010 [facility] [address] [id number], [place] [address] Jan, [facility] [id number], [place] [address] May, [facility] [id number], [place] [address] May, [facility] [id number], [place] [address] May, [facility] [id number], [place] [address] May, [facility] [id number], [place] [address] May, [facility] [id number], [place] [address] May, [facility] [id number], [place] [address] Mar, [facility] [address] [id number], [place] [address] Sep, IMMUNIZATIONS No Known Immunizations SOCIAL HISTORY Never Assessed REASON FOR VISIT Medication refill request PLAN OF CARE VITAL SIGNS MEDICATIONS [...]
--- OUTSIDE RECORDS SUMMARY | 2018-01-25 16:26 | XMS REPORT ---
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 [facility] [address] [id number] [place] [address]- 7448 08 Mar, 2014 [facility] [place] [facility] [address] [id number] [place] [address]- 4151 Mar, [facility] [place] [facility] [address] [id number] [place] [address]- 1077 Mar, [facility] [place] [facility] [address] [id number] [place] [address]- 7418 Jan, [facility] [place] [facility] [address] [id number] [place] [address]- 4379 Jan, [facility] [place] [facility] [address] [id number] [place] [address]- 6739 Jan, [facility] [place] [facility] [address] [id number] [place] [address]- 2385 Jan, [facility] [place] [facility] [address] [id number] [place] [address]- 4551 Jan, [facility] [place] [facility] [address] [id number] [place] [address]- 6444 Jan, [facility] [place] [facility] [address] [id number] [place] [address]- 3032 Jan, [facility] [place] [facility] [address] [id number] [place] [address]- 8854 Jan, [facility] [place] [facility] [address] [id number] [place] [address]- 3908 Jan, [facility] [place] [facility] [address] [id number] [place] [address]- 1562 Dec, [facility] [place] [facility] [address] [id number] [place] [address]- 2311 Dec, [facility] [place] [facility] [address] [id number] [place] [address]- 4441 Dec, [facility] [place] [facility] [address] [id number] [place] [address]- 4703 Dec, [facility] [place] [facility] [address] [id number] [place] [address]- 4809 Dec, [facility] [place] [facility] [address] [id number] [place] [address]- 8614 Dec, [facility] [place] [facility] [address] [id number] [place] [address]- 3760 Dec, [facility] [place] [facility] [address] [id number] [place] [address]- 9288 Dec, [facility] [place] [facility] [address] [id number] [place] [address]- 6989 Dec, [facility] [place] [facility] [address] [id number] [place] [address]- 5937 October, [facility] [place] [facility] [address] [id number] [place] [address]- 9897 October, [facility] [place] [facility] [address] [id number] [place] [address]- 8926 Sep, [facility] [place] [facility] [address] [id number] [place] [address]- 4594 15 Sep, 2013 [facility] [place] [facility] [address] [id number] [place] [address]- 8952 07 Aug, 2013 [facility] [place] [facility] [address] [id number] [place] [address]- 0373 Aug, [facility] [place] [facility] [address] [id number] [place] [address]- 7871 Aug, [facility] [place] [facility] [address] [id number] [place] [address]- 8753 Aug, [facility] [place] [facility] [address] [id number] [place] [address]- 3571 Aug, [facility] [place] [facility] [address] [id number] [place] [address]- 9035 Aug, [facility] [place] [facility] [address] [facility] [id number] [place] [address]- 8357 14 Aug, 2013 [facility] [place] [facility] [address] [id number] [place] [address]- 5213 Aug, [facility] [place] [facility] [address] [id number] [place] [address]- 3260 Aug, [facility] [place] [facility] [address] [id number] [place] [address]- 5939 Aug, [facility] [place] [facility] [address] [id number] [place] [address]- 8166 Aug, [facility] [place] [facility] [address] [facility] [id number] [place] [address]- 6818 Jul, [facility] [address] [id number] [place] [address]- 1203 Jul, [facility] [place] [facility] [address] [id number] [place] [address]- 0706 May, [facility] [place] [facility] [address] [id number] [place] [address]- 5475 May, [facility] [place] [facility] [address] [id number] [place] [address]- 5285 May, [facility] [place] [facility] [address] [id number] [place] [address]- 6914 May, [facility] [place] [facility] [address] [id number] [place] [address]- 6083 May, [facility] [place] [facility] [address] [id number] [place] [address]- 5264 May, [facility] [place] [facility] [address] [id number] [place] [address]- 7260 May, [facility] [place] [facility] [address] [id number] [place] [address]- 5540 May, [facility] [place] [facility] [address] [id number] [place] [address]- 6364 May, [facility] [place] [facility] [address] [id number] [place] [address]- 2581 May, [facility] [place] [facility] [address] [id number], [place] [address]- 6460 May, [facility] [place] [facility] [address] [id number] [place] [address]- 5891 May, [facility] [place] [facility] [address] [id number] [place] [address]- 7703 May, [facility] [place] [facility] [address] [id number] [place] [address]- 6574 May, [facility] [place] [facility] [address] [id number] [place] [address]- 5358 May, [facility] [address] [id number] [place] [address]- 5240 May, [facility] [place] [facility] [address] [id number] [place] [address]- 9907 May, [facility] [place] [facility] [address] [id number] [place] [address]- 4002 May, [facility] [place] [facility] [address] [id number] [place] [address]- 8808 16 May, 2013 [facility] [place] [facility] [address] [id number] [place] [address]- 8171 May, [facility] [place] [facility] [address] [id number] [place] [address]- 8499 May, [facility] [place] [facility] [address] [id number] [place] [address]- 5943 May, [facility] [place] [facility] [address] [id number] [place] [address]- 1431 May, [facility] [place] [facility] [address] [id number] [place] [address]- 9754 May, [facility] [place] [facility] [address] [facility] [id number] [place] [address]- 7492 May, [facility] [place] [facility] [address] [id number] [place] [address]- 3267 May, [facility] [place] [facility] [address] [id number], [place] [address]- 1088 May, [facility] [place] [facility] [address] [id number] [place] [address]- 2439 May, [facility] [place] [facility] [address] [id number] [place] [address]- 1483 May, [facility] [place] [facility] [address] [id number], [place] [address]- 0250 May, [facility] [place] [facility] [address] [id number] [place] [address]- 3648 Mar, 2012 [facility] [place] [facility] [address] [id number] [place] [address]- 9617 Mar, 2012 [facility] [place] [facility] [address] [id number] [place] [address]- 5867 Mar, 2012 [facility] [place] [facility] [address] [id number] [place] [address]- 9411 Mar, 2012 [facility] [place] [facility] [address] [id number] [place] [address]- 5919 30 Mar, 2012 [facility] [place] [facility] [address] [id number] [place] [address]- 9824 Mar, 2012 [facility] [place] [facility] [address] [id number] [place] [address]- 6739 Mar, 2012 [facility] [place] [facility] [address] [id number] [place] [address]- 4898 Mar, [facility] [place] [facility] [address] [id number] [place] [address]- 8741 Mar, [facility] [place] [facility] [address] [id number] [place] [address]- 4350 Mar, [facility] [place] [facility] [address] [id number] [place] [address]- 3223 Mar, [facility] [place] [facility] [address] [id number] [place] [address]- 3992 24 Mar, 2013 [facility] [place] [facility] [address] [id number] [place] [address]- 2073 24 Mar, 2013 [facility] [place] [facility] [address] [id number] [place] [address]- 9639 23 Mar, 2013 [facility] [place] [facility] [address] [id number] [place] [address]- 6325 22 Mar, 2013 [facility] [place] [facility] [address] [id number] [place] [address]- 7023 21 Mar, 2013 [facility] [place] [facility] [address] [id number] [place] [address]- 8263 21 Mar, 2013 [facility] [place] [facility] [address] [id number] [place] [address]- 0003 18 Mar, 2013 [facility] [place] [facility] [address] [id number] [place] [address]- 2553 18 Mar, 2013 [facility] [place] [facility] [address] [id number] [place] [address]- 1777 18 Mar, 2013 [facility] [place] [facility] [address] [id number] [place] [address]- 8653 18 Mar, 2013 [facility] [place] [facility] [address] [id number] [place] [address]- 7709 14 Mar, 2013 [facility] [place] [facility] [address] [id number] [place] [address]- 4837 14 Mar, 2013 [facility] [place] [facility] [address] [id number] [place] [address]- 2288 10 Mar, 2013 [facility] [place] [facility] [address] [id number] [place] [address] 8629 18 Mar, 2013 [facility] [place] [facility] [address] [id number] [place] [address] 57[address] 12 Mar, 2013 [facility] [place] [facility] [address] [id number], [place] [address] 11 Mar, 2013 [facility] [place] [facility] [address] [id number], [place] [address] Jan, [facility] [place] [facility] [address] [id number] [place] [address] October, [facility] [place] [facility] [address] [id number] [place] [address] 22 Sep, 2012 [facility] [place] [facility] [address] [id number] [place] [address] 7440 15 Sep, 2012 [facility] [place] [facility] [address] [id number] [place] [address] 07 Aug, 2012 [facility] [address] [id number] [place] [address] 06 Aug, 2012 [facility] [place] [facility] [address] [id number] [place] [address] 2546 04 Aug, 2012 [facility] [address] [id number] [place] [address] 9946 17 Jul, 2012 [facility] [address] [id number] [place] [address] 5283 19 May, 2012 [facility] [address] [id number] [place] [address]116 19 May, 2012 [facility] [address] [id number] [place] [address] 18 May, 2012 [facility] [address] [id number] [place] [address] 5144 18 May, 2012 [facility] [address] [id number] [place] [address] 6081 19 Mar, 2012 [facility] [address] [id number] [place] [address] 8546 19 Mar, 2012 [facility] [address] [facility] [id number] [place] [address]234 16 Mar, 2012 [facility] [place] [facility] [address] [id number] [place] [address] 2546 25 Mar, 2012 [facility] [address] [id number] [place] [address] 2546 19 Mar, 2012 [facility] [place] [facility] [address] [id number] [place] [address]- 1436 13 Mar, 2012 [facility] [place] [facility] [address] [id number] [place] [address] 2546 07 Mar, 2012 [facility] [place] [facility] [address] [id number] [place] [id number] [address] Jan, [facility] [place] [facility] [address] [id number] [place] [address] 1072 Jan, [facility] [place] [facility] [address] [id number] [place] [address]- 1139 Jan, [facility] [place] [facility] [address] [id number] [place] [address] 4446 Jan, [facility] [place] [facility] [address] [id number] [place] [address] 3891 Jan, [facility] [place] [facility] [address] [id number] [place] [address] 8138 Jan, [facility] [place] [facility] [address] [id number] [place] [address] 1538 Jan, [facility] [place] [facility] [address] [id number] [place] [address] 4406 Jan, [facility] [place] [facility] [address] [id number] [place] [address] 1996 Jan, [facility] [place] [facility] [address] [id number] [place] [address]- 0592 Jan, [facility] [place] [facility] [address] [id number] [place] [address] 2041 Jan, [facility] [place] [facility] [address] [id number] [place] [address] 5204 Jan, [facility] [place] [facility] [address] [id number] [place] [address]- 1666 Jan, [facility] [place] [facility] [address] [id number] [place] [address] 4659 Jan, [facility] [place] [facility] [address] [id number] [place] [address] 3235 Jan, [facility] [place] [facility] [address] [id number] [place] [address] 2757 Jan, [facility] [place] [facility] [address] [id number] [place] [address] 8038 Dec, [facility] [address] [id number] [place] [address] 5305 Dec, [facility] [place] [facility] [address] [id number] [place] [address]- 7291 Nov, [facility] [place] [facility] [address] [id number] [place] [address] 0116 Nov, [facility] [place] [facility] [address] [id number] [place] [address] 49[address] October, [facility] [place] [facility] [address] [id number] [place] [address] 6442 October, [facility] [place] [facility] [address] [id number] [place] [address] 3446 October, [facility] [address] [id number] [place] [address] 8778 Sep, [facility] [place] [facility] [address] [id number] [place] [address]- 0397 Sep, [facility] [place] [facility] [address] [id number] [place] [address]- 8360 30 Aug, 2011 [facility] [place] [facility] [address] [id number] [place] [address]- 9660 Aug, [facility] [place] [facility] [address] [id number] [place] [address] 8386 Aug, [facility] [place] [facility] [address] [id number] [place] [address]- 7383 19 Aug, 2011 [facility] [place] [facility] [address] [id number] [place] [address]- 6192 Aug, [facility] [place] [facility] [address] [id number] [place] [address]- 3649 14 Aug, 2011 [facility] [place] [facility] [address] [id number] [place] [address]- 7576 07 Aug, 2011 [facility] [place] [facility] [address] [id number] [place] [address]- 9526 Jul, [facility] [place] [facility] [address] [id number] [place] [address]- 6517 Jul, [facility] [place] [facility] [address] [id number] [place] [address]- 6233 Jul, [facility] [place] [facility] [address] [id number] [place] [address]- 1627 May, [facility] [place] [facility] [address] [id number] [place] [address]- 4133 May, [facility] [place] [facility] [address] [id number] [place] [address]- 3349 May, [facility] [place] [facility] [address] [id number] [place] [address]- 8868 May, [facility] [place] [facility] [address] [id number] [place] [address]- 7327 May, [facility] [place] [facility] [address] [id number] [place] [address]- 6887 May, [facility] [place] [facility] [address] [id number] [place] [address]- 6446 May, [facility] [place] [facility] [address] [id number] [place] [address]- 5286 Mar, [facility] [place] [facility] [address] [id number] [place] [address]- 4626 Mar, [facility] [place] [facility] [address] [id number] [place] [address]- 3570 Mar, [facility] [place] [facility] [address] [id number] [place] [address]- 3969 15 Mar, 2011 [facility] [place] [facility] [address] [id number] [place] [address] Mar, 2010 [facility] [place] [facility] [address] [id number] [address] Mar, [facility] [id number] [address] Jan, [facility] [id number] [address] May, [facility] [id number] [address] May, [facility] [id number], [place] [address] May, [facility] [id number] [address] May, [facility] [id number] [place] [address] May, [facility] [id number] [address] May, [facility] [id number], [place] [address] Mar, [facility] [id number], [place] [address] Sep, IMMUNIZATIONS No Known Immunizations SOCIAL HISTORY Never Assessed REASON FOR VISIT sore throat/ear pain started last week JStrasserRN PLAN OF CARE Activity Details Follow Up prn Reason: VITAL SIGNS Height 64 in 2017-03-11 Weight 124.8 lbs 2017-03-11 Temperature 98.3 degrees Fahrenheit 2017-03-11 Heart Rate 66 bpm 2017-03-11 Respiratory Rate 20 2017-03-11 BMI 21.42 kg/m2 2017-03-11 Blood pressure systolic 122 mmHg 2017-03-11 Blood pressure diastolic 80 mmHg 2017-03-11 MEDICATIONS Medication Instructions Dosage Frequency Start Date End Date Duration Status Azithromycin 250 MG Orally Once a day 2 tablets on the first day, then 1 tablet daily for 4 days 24h Mar, Mar, 5 day(s) Active Albuterol Sulfate (2.5 MG/3ML) 0.083% Inhalation Three times a day 3 ml 8h Aug, Active Ventolin HFA 108 (90 Base) MCG/ACT Inhalation every 4 hrs 2 puffs as needed 4h Aug, Active Advair Diskus 250-50 MCG/DOSE Inhalation Twice a day 1 puff 12h Sep, Active Hydrocodone-Acetaminophen 7.5-325 MG Orally twice a day 1 tablet as needed 12h 05 Mar, 2017 28 days Active Xanax 1 MG Orally 3 times a day 1 tablet 8h Aug, 28 days Active Omeprazole 40 MG Orally Once a day 1 capsule 24h 90 days Active Lexapro 20 mg Orally Once a day 2 tablets 24h 90 days Active Toviaz 4 MG Orally Once a day 1 tablet 24h October, 90 days Active Topamax 25 MG Orally Twice a day 3 tablet 12h Nov, 30 days Active Singulair 10 MG Orally Once a day 1 tablet in the evening 24h Active EpiPen 2-David 0.3 MG/0.3ML Injection repeat in 20 minutes Inject into thigh at first signs of anaphylaxis October, 30 days Active Flonase 50 MCG/ACT Nasally twice a day 1 spray in each nostril 12h Jan, 30 day(s) Active RESULTS No Results PROCEDURES No Known [...]
--- OUTSIDE RECORDS SUMMARY | 2018-01-25 16:29 | XMS REPORT ---
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 Mar, [facility] [place] [facility] [address] [id number] [place] [address]- 1437 Mar, [facility] [place] [facility] [address] [id number] [place] [address]- 3688 Mar, [facility] [place] [facility] [address] [id number] [place] [address]- 0804 Mar, [facility] [place] [facility] [address] [id number] [place] [address]- 6525 Mar, [facility] [place] [facility] [address] [id number] [place] [address]- 0068 Mar, [facility] [place] [facility] [address] [id number] [place] [address]- 2639 Jan, [facility] [place] [facility] [address] [id number] [place] [address]- 3739 Jan, [facility] [place] [facility] [address] [id number] [place] [address]- 4464 Jan, [facility] [place] [facility] [address] [id number] [place] [address]- 9827 Jan, [facility] [place] [facility] [address] [id number] [place] [address]- 2674 Jan, [facility] [place] [facility] [address] [id number] [place] [address]- 9648 Jan, [facility] [place] [facility] [address] [id number] [place] [address]- 7650 Jan, [facility] [place] [facility] [address] [id number] [place] [address]- 8396 Jan, [facility] [place] [facility] [address] [id number] [place] [address]- 8216 Jan, [facility] [place] [facility] [address] [id number] [place] [address]- 7488 Dec, [facility] [place] [facility] [address] [id number] [place] [address]- 2999 Dec, [facility] [place] [facility] [address] [id number] [place] [address]- 3560 Dec, [facility] [place] [facility] [address] [id number] [place] [address]- 0563 Dec, [facility] [place] [facility] [address] [id number] [place] [address]- 5369 Dec, [facility] [place] [facility] [address] [id number] [place] [address]- 0405 Dec, [facility] [place] [facility] [address] [id number] [place] [address]- 2406 Dec, [facility] [place] [facility] [address] [id number] [place] [address]- 3039 Dec, [facility] [place] [facility] [address] [id number] [place] [address]- 0371 Dec, [facility] [place] [facility] [address] [id number] [place] [address]- 1150 October, [facility] [place] [facility] [address] [id number] [place] [address]- 1222 October, [facility] [place] [facility] [address] [id number] [place] [address]- 8134 Sep, [facility] [place] [facility] [address] [id number] [place] [address]- 7715 15 Sep, 2013 [facility] [place] [facility] [address] [id number] [place] [address]- 6684 Aug, [facility] [place] [facility] [address] [id number] [place] [address]- 6345 Aug, [facility] [place] [facility] [address] [id number] [place] [address]- 7830 Aug, [facility] [place] [facility] [address] [id number] [place] [address]- 0596 Aug, [facility] [place] [facility] [address] [id number] [place] [address]- 5353 Aug, [facility] [place] [facility] [address] [id number] [place] [address]- 1396 Aug, [facility] [place] [facility] [address] [id number] [place] [address]- 8363 Aug, [facility] [place] [facility] [address] [id number] [place] [address]- 3254 Aug, [facility] [place] [facility] [address] [id number] [place] [address]- 1421 Aug, [facility] [place] [facility] [address] [id number] [place] [address]- 5244 Aug, [facility] [place] [facility] [address] [id number] [place] [address]- 4452 Aug, [facility] [place] [facility] [address] [id number] [place] [address]- 5476 Jul, [facility] [place] [facility] [address] [id number] [place] [address]- 3256 Jul, [facility] [place] [facility] [address] [id number] [place] [address]- 5296 May, [facility] [place] [facility] [address] [id number] [place] [address]- 7639 May, [facility] [address] [id number] [place] [address]- 3992 May, [facility] [address] [id number] [place] [address]- 0673 May, [facility] [address] [id number] [place] [address]- 9775 May, [facility] [address] [id number] [place] [address]- 3323 May, [facility] [address] [id number] [place] [address]- 3793 May, [facility] [address] [id number] [place] [address]- 7899 May, [facility] [address] [id number] [place] [address]- 1395 May, [facility] [address] [id number] [place] [address]- 0665 May, [facility] [address] [id number] [place] [address]- 6402 May, [facility] [address] [id number] [place] [address]- 6846 May, [facility] [address] [id number] [place] [address]- 2873 May, [facility] [address] [id number] [place] [address]- 1631 May, [facility] [place] [facility] [address] [id number] [place] [address]- 8926 May, [facility] [address] [id number] [place] [address]- 9913 May, [facility] [address] [id number] [place] [address]- 6835 May, [facility] [place] [facility] [address] [id number] [place] [address]- 5248 18 May, 2013 [facility] [place] [facility] [address] [id number] [place] [address]- 0136 May, [facility] [place] [facility] [address] [id number] [place] [address]- 9773 16 May, 2013 [facility] [place] [facility] [address] [id number] [place] [address]- 1642 May, [facility] [place] [facility] [address] [id number] [place] [address]- 6324 May, [facility] [place] [facility] [address] [id number] [place] [address]- 9026 May, [facility] [place] [facility] [address] [id number] [place] [address]- 3785 May, [facility] [place] [facility] [address] [id number], [place] [address]- 2714 May, [facility] [place] [facility] [address] [id number], [place] [address]- 3691 May, [facility] [place] [facility] [address] [id number], [place] [address]- 9528 May, [facility] [place] [facility] [address] [id number], [place] [address]- 0639 May, [facility] [place] [facility] [address] [id number], [place] [address]- 3678 May, [facility] [place] [facility] [address] [id number], [place] [address]- 0659 May, [facility] [place] [facility] [address] [id number], [place] [address]- 4376 Mar, [facility] [place] [facility] [address] [id number], [place] [address]- 2105 Mar, [facility] [place] [facility] [address] [id number], [place] [address]- 4732 31 Mar, 2012 [facility] [place] [facility] [address] [id number] [place] [address]- 7758 31 Mar, 2012 [facility] [place] [facility] [address] [id number], [place] [address]- 1662 30 Mar, 2012 [facility] [place] [facility] [address] [id number] [place] [address]- 5678 29 Mar, 2012 [facility] [place] [facility] [address] [id number], [place] [address]- 7971 29 Mar, 2012 [facility] [place] [facility] [address] [id number] [place] [address]- 8632 Mar, 2012 [facility] [place] [facility] [address] [id number] [place] [address]- 7718 Mar, 2012 [facility] [place] [facility] [address] [id number], [place] [address]- 8418 Mar, [facility] [place] [facility] [address] [id number], [place] [address]- 2537 28 Mar, 2013 [facility] [place] [facility] [address] [id number], [place] [address]- 7048 24 Mar, 2013 [facility] [place] [facility] [address] [id number], [place] [address]- 0379 24 Mar, 2013 [facility] [place] [facility] [address] [id number], [place] [address]- 5361 23 Mar, 2013 [facility] [place] [facility] [address] [id number], [place] [address]- 0754 22 Mar, 2012 [facility] [place] [facility] [address] [id number], [place] [address]- 7593 Mar, 2012 [facility] [place] [facility] [address] [id number], [place] [address]- 5588 Mar, [facility] [place] [facility] [address] [id number], [place] [address]- 4918 18 Mar, 2012 [facility] [place] [facility] [address] [id number] [place] [address]- 5745 18 Mar, 2013 [facility] [place] [facility] [address] [id number] [place] [address]- 2703 18 Mar, 2013 [facility] [place] [facility] [address] [id number] [place] [address]- 6698 18 Mar, 2013 [facility] [place] [facility] [address] [id number] [place] [address]- 1153 14 Mar, 2013 [facility] [place] [facility] [address] [id number] [place] [address]- 1867 14 Mar, 2013 [facility] [place] [facility] [address] [id number] [place] [address]- 5746 10 Mar, 2013 [facility] [place] [facility] [address] [id number] [place] [address]- 4984 18 Mar, 2013 [facility] [place] [facility] [address] [id number] [place] [address]- 0248 12 Mar, 2013 [facility] [place] [facility] [address] [id number] [place] [address] 11 Mar, 2013 [facility] [place] [facility] [address] [id number] [place] [address] Jan, [facility] [place] [facility] [address] [id number] [place] [address]100 October, [facility] [place] [facility] [address] [id number] [place] [address] Sep, [facility] [place] [facility] [address] [id number] [place] [address] 15 Sep, 2012 [facility] [place] [facility] [address] [id number] [place] [address] 58[address] Aug, [facility] [place] [facility] [address] [id number] [place] [address] 06 Aug, 2012 [facility] [place] [facility] [address] [id number] [place] [address]282 04 Aug, 2012 [facility] [place] [facility] [address] [id number] [place] [address] 17 Jul, 2012 [facility] [place] [facility] [address] [id number] [place] [address] May, [facility] [place] [facility] [address] [facility] [id number] [place] [address]296 19 May, 2012 [facility] [place] [facility] [address] [id number] [place] [address] 3544 18 May, 2012 [facility] [place] [facility] [address] [id number] [place] [address]283 18 May, 2012 [facility] [place] [facility] [address] [id number] [place] [address]- 1183 19 Mar, 2012 [facility] [place] [facility] [address] [id number] [place] [address] 5148 19 Mar, 2012 [facility] [place] [facility] [address] [id number] [place] [address]- 5700 16 Mar, 2012 [facility] [place] [facility] [address] [id number] [place] [address] 3508 25 Mar, 2012 [facility] [place] [facility] [address] [id number] [place] [address]- 1151 19 Mar, 2012 [facility] [place] [facility] [address] [id number], [place] [address] 7[address] 13 Mar, 2012 [facility] [place] [facility] [address] [id number], [place] [address] 07 Mar, 2012 [facility] [place] [facility] [address] [id number] [place] [address]- 95[address] 30 Jan, 2012 [facility] [place] [facility] [address] [id number] [place] [address]- 9973 28 Jan, 2012 [facility] [place] [facility] [address] [id number] [place] [address]- 9947 Jan, [facility] [place] [facility] [address] [id number] [place] [address] 5559 Jan, [facility] [place] [facility] [address] [id number] [place] [address] 1496 Jan, 2011 [facility] [place] [facility] [address] [id number] [place] [address]- 49[address] Jan, 2011 [facility] [place] [facility] [address] [id number] [place] [address] 2003 Jan, 2011 [facility] [place] [facility] [address] [id number] [place] [address]- 9153 Jan, 2011 [facility] [place] [facility] [address] [id number] [place] [address]- 8339 Jan, 2011 [facility] [place] [facility] [address] [id number] [place] [address]- 8396 Jan, [facility] [place] [facility] [address] [id number] [place] [address] 9[address] Jan, [facility] [place] [facility] [address] [id number] [place] [address] Jan, [facility] [place] [facility] [address] [id number] [place] [address]- 5968 Jan, [facility] [place] [facility] [address] [id number] [place] [address] 4198 Jan, [facility] [place] [facility] [address] [id number] [place] [address] 82[address] Jan, [facility] [place] [facility] [address] [id number] [place] [address]- 1494 Jan, [facility] [place] [facility] [address] [id number] [place] [address] 0042 Dec, [facility] [place] [facility] [address] [id number] [place] [address]- 2950 Dec, [facility] [place] [facility] [address] [id number] [place] [address] 8697 Nov, [facility] [address] [id number] [place] [address]- [address] 08 Nov, 2011 [facility] [place] [facility] [address] [id number] [place] [address] 2776 October, [facility] [place] [facility] [address] [id number] [place] [address]- [address]356 October, [facility] [place] [facility] [address] [id number] [place] [address]- 9566 October, [facility] [place] [facility] [address] [id number] [place] [address]- 69[address] Sep, [facility] [place] [facility] [address] [id number] [place] [address]- 1996 Sep, [facility] [place] [facility] [address] [id number] [place] [address]- 2486 30 Aug, 2011 [facility] [place] [facility] [address] [id number] [place] [address]- 7659 Aug, [facility] [place] [facility] [address] [id number] [place] [address]- 8489 Aug, [facility] [place] [facility] [address] [id number] [place] [address]- 1399 Aug, [facility] [place] [facility] [address] [id number] [place] [address] 3056 Aug, [facility] [place] [facility] [address] [id number] [place] [address]- 4286 14 Aug, 2011 [facility] [place] [facility] [address] [id number] [place] [address]- 2836 Aug, [facility] [place] [facility] [address] [id number] [place] [address]- 3096 Jul, [facility] [place] [facility] [address] [id number] [place] [address]- [address]156 Jul, [facility] [place] [facility] [address] [id number] [place] [address] 4154 Jul, [facility] [address] [id number] [place] [address]- 6973 May, [facility] [place] [facility] [address] [id number] [place] [address] May, [facility] [place] [facility] [address] [id number] [place] [address]- 67[address] May, [facility] [facility] [address] [id number] [place] [address] May, [facility] [place] [facility] [address] [id number] [place] [address], [place] [address] May, [facility] [place] [facility] [address] [id number] [place] [address] May, [facility] [place] [facility] [address] [id number] [place] [address] May, [facility] [place] [facility] [address] [id number] [place] [address] Mar, [facility] [place] [facility] [address] [id number] [place] [address] Mar, [facility] [place] [facility] [address] [id number] [place] [address] Mar, [facility] [place] [facility] [address] [id number] [place] [address] 15 Mar, 2011 [facility] [place] [facility] [address] [id number], [place] [address] 27 Mar, 2010 [facility] [place] [facility] [address] [id number] [place] [address] 13 Mar, 2010 [facility] [place] [facility] [address] [id number] [place] [address]- [address] 10 Jan, 2010 [facility] [place] [facility] [address] [id number] [place] [address] 31 May, 2009 [facility] [place] [facility] [address] [id number] [address] 16 May, 2009 [facility] [address] [id number] [address] May, [facility] [id number], [place] [address] May, [facility] [address] [id number] [address] May, [facility] [address] [id number] [address] May, [facility] [address] [id number] [address] Mar, [facility] [address] [id number] [address] Sep, IMMUNIZATIONS No Known Immunizations SOCIAL HISTORY [...]
--- OUTSIDE RECORDS SUMMARY | 2018-01-25 16:35 | XMS REPORT ---
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 [place] [facility] [address] [id number] [place] [address]- 9342 May, [facility] [place] [facility] [address] [id number] [place] [address]- 3752 Mar, [facility] [place] [facility] [address] [id number] [place] [address]- 1820 Mar, [facility] [place] [facility] [address] [id number] [place] [address]- 5828 Mar, [facility] [place] [facility] [address] [id number] [place] [address]- 4856 Mar, [facility] [place] [facility] [address] [id number] [place] [address]- 2793 Mar, [facility] [place] [facility] [address] [id number] [place] [address]- 8342 Mar, [facility] [place] [facility] [address] [id number] [place] [address]- 3760 Mar, [facility] [place] [facility] [address] [id number] [place] [address]- 1018 Mar, [facility] [place] [facility] [address] [id number] [place] [address]- 9514 24 Mar, 2014 [facility] [place] [facility] [address] [id number] [place] [address]- 0002 24 Mar, 2014 [facility] [place] [facility] [address] [id number] [place] [address]- 9290 08 Mar, 2014 [facility] [place] [facility] [address] [id number] [place] [address]- 5424 08 Mar, 2013 [facility] [place] [facility] [address] [id number] [place] [address]- 6876 Mar, 2013 [facility] [place] [facility] [address] [id number] [place] [address]- 5558 Mar, [facility] [place] [facility] [address] [id number] [place] [address]- 0602 Jan, [facility] [place] [facility] [address] [id number] [place] [address]- 2335 Jan, [facility] [place] [facility] [address] [id number] [facility] [place] [address]- 9850 Jan, [facility] [place] [facility] [address] [id number] [place] [address]- 5174 Jan, [facility] [place] [facility] [address] [id number] [place] [address]- 9567 Jan, [facility] [place] [facility] [address] [id number] [place] [address]- 5995 Jan, [facility] [place] [facility] [address] [id number] [place] [address]- 0558 Jan, [facility] [place] [facility] [address] [id number] [place] [address]- 8535 Jan, [facility] [place] [facility] [address] [id number] [place] [address]- 9990 Jan, [facility] [place] [facility] [address] [id number] [place] [address]- 4323 Dec, [facility] [place] [facility] [address] [id number] [place] [address]- 8983 Dec, [facility] [place] [facility] [address] [id number] [place] [address]- 1718 Dec, [facility] [place] [facility] [address] [id number] [place] [address]- 1793 Dec, [facility] [place] [facility] [address] [id number] [place] [address]- 3314 Dec, [facility] [place] [facility] [address] [id number] [facility] [place] [address]- 6913 Dec, [facility] [place] [facility] [address] [id number] [place] [address]- 0322 Dec, [facility] [place] [facility] [address] [id number] [place] [address]- 2800 Dec, [facility] [place] [facility] [address] [id number] [place] [address]- 7947 Dec, [facility] [place] [facility] [address] [id number] [place] [address]- 5878 October, [facility] [place] [facility] [address] [id number] [place] [address]- 1225 October, [facility] [place] [facility] [address] [facility] [id number] [place] [address]- 5895 Sep, [facility] [place] [facility] [address] [id number] [place] [address]- 7353 Sep, [facility] [place] [facility] [address] [id number] [place] [address]- 1659 Aug, [facility] [place] [facility] [address] [facility] [id number] [place] [address]- 4668 Aug, [facility] [place] [facility] [address] [facility] [id number] [place] [address]- 4168 Aug, [facility] [place] [facility] [address] [facility] [id number] [place] [address]- 4453 Aug, [facility] [place] [facility] [address] [facility] [id number] [place] [address]- 5910 Aug, [facility] [place] [facility] [address] [facility] [id number] [place] [address]- 9867 Aug, [facility] [place] [facility] [address] [facility] [id number] [place] [address]- 6811 14 Aug, 2013 [facility] [place] [facility] [address] [facility] [id number], [place] [address]- 2316 Aug, [facility] [place] [facility] [address] [facility] [id number] [place] [address]- 1055 07 Aug, 2013 [facility] [place] [facility] [address] [facility] [id number] [place] [address]- 5076 Aug, [facility] [place] [facility] [address] [facility] [id number] [place] [address]- 7175 Aug, [facility] [place] [facility] [address] [id number] [place] [address]- 2389 Jul, [facility] [place] [facility] [address] [id number] [place] [address]- 2138 Jul, [facility] [place] [facility] [address] [id number] [place] [address]- 0302 May, [facility] [place] [facility] [address] [id number] [place] [address]- 1517 May, [facility] [place] [facility] [address] [id number] [place] [address] 2541 May, [facility] [place] [facility] [address] [id number] [place] [address]- 5153 May, [facility] [place] [facility] [address] [id number] [place] [address]- 7510 May, [facility] [place] [facility] [address] [id number] [place] [address]- 8589 May, [facility] [place] [facility] [address] [id number] [place] [address]- 0806 May, [facility] [place] [facility] [address] [id number] [place] [address]- 4078 May, [facility] [place] [facility] [address] [id number] [place] [address] May, [facility] [place] [facility] [address] [id number] [place] [address] May, [facility] [place] [facility] [address] [id number] [place] [address] May, [facility] [place] [facility] [address] [id number] [place] [address] 254 May, [facility] [place] [facility] [address] [id number] [place] [address] May, [facility] [place] [facility] [address] [id number] [place] [address] May, [facility] [place] [facility] [address] [id number] [place] [address] May, [facility] [place] [facility] [address] [id number], [place] [address] May, [facility] [place] [facility] [address] [facility] [id number] [place] [address] May, [facility] [place] [facility] [address] [id number], [place] [address] May, [facility] [place] [facility] [address] [id number] [place] [address]- [address] May, [facility] [place] [facility] [address] [id number], [place] [address] May, [facility] [place] [facility] [address] [id number], [place] [address] May, [facility] [place] [facility] [address] [id number], [place] [address] May, [facility] [place] [facility] [address] [id number], [place] [address] May, [facility] [place] [facility] [address] [id number], [place] [address] May, [facility] [place] [facility] [address] [id number], [place] [address] May, [facility] [place] [facility] [address] [id number], [place] [address] May, [facility] [place] [facility] [address] [id number], [place] [address]- [address] May, [facility] [place] [facility] [address] [id number], [place] [address] May, [facility] [place] [facility] [address] [id number], [place] [address]- [address] May, [facility] [place] [facility] [address] [id number] [place] [address]- [address] May, [facility] [place] [facility] [address] [id number] [place] [address]- [address] Mar, 2012 [facility] [place] [facility] [address] [id number] [place] [address]- [address] Mar, 2012 [facility] [place] [facility] [address] [id number] [place] [address]- 8580 Mar, 2012 [facility] [place] [facility] [address] [id number] [place] [address]- [address] Mar, 2012 [facility] [place] [facility] [address] [id number] [place] [address]- [address] 30 Mar, 2012 [facility] [place] [facility] [address] [id number] [place] [address]- [address] Mar, 2012 [facility] [place] [facility] [address] [id number] [place] [address]- [address] Mar, 2012 [facility] [place] [facility] [address] [id number] [place] [address]- [address] Mar, [facility] [place] [facility] [address] [id number] [place] [address]- [address] Mar, [facility] [place] [facility] [address] [id number] [place] [address]- [address] Mar, [facility] [place] [facility] [address] [id number] [place] [address]- [address]99 Mar, [facility] [place] [facility] [address] [id number] [place] [address]- 3933 Mar, [facility] [place] [facility] [address] [id number] [place] [address]- [address] 24 Mar, 2013 [facility] [place] [facility] [address] [id number] [place] [address]- 4104 Mar, 2012 [facility] [place] [facility] [address] [id number] [place] [address]- [address] Mar, [facility] [place] [facility] [address] [id number] [place] [address]- 132[address] Mar, [facility] [place] [facility] [address] [id number] [place] [address] 21 Mar, 2013 [facility] [place] [facility] [address] [id number] [place] [address]- [address] 18 Mar, 2013 [facility] [place] [facility] [address] [id number] [place] [address]- [address] 18 Mar, 2013 [facility] [address] [id number] [place] [address]- [address] 18 Mar, 2013 [facility] [place] [facility] [address] [id number] [place] [address]- [address] 18 Mar, 2013 [facility] [address] [id number] [place] [address]- [address] 14 Mar, 2013 [facility] [place] [facility] [address] [id number] [place] [address]- [address] 14 Mar, 2013 [facility] [place] [facility] [address] [id number] [place] [address]- [address] 10 Mar, 2013 [facility] [place] [facility] [address] [id number] [place] [address]- [address] 18 Mar, 2013 [facility] [place] [facility] [address] [id number] [place] [address]- 9464 12 Mar, 2013 [facility] [place] [facility] [address] [id number], [place] [address]- [address] Mar, [facility] [place] [facility] [address] [id number] [place] [address]- [address] Jan, [facility] [place] [facility] [address] [id number] [place] [address]- [address] October, [facility] [place] [facility] [address] [id number] [place] [address]- [address] Sep, [facility] [place] [facility] [address] [id number], [place] [address] 15 Sep, 2012 [facility] [address] [address] [id number] [place] [address] 07 Aug, 2012 [facility] [address] [facility] [id number], [place] [address] 06 Aug, 2012 [facility] [address] [facility] [id number] [place] [address] 04 Aug, 2012 [facility] [address] [facility] [id number], [place] [address] 17 Jul, 2012 [facility] [address] [facility] [id number] [place] [address]68 19 May, 2012 [facility] [address] [facility] [id number], [place] [address] 19 May, 2012 [facility] [address] [facility] [id number], [place] [address] 18 May, 2012 [facility] [address] [facility] [id number], [place] [address] 18 May, 2012 [facility] [address] [facility] [id number], [place] [address] 19 Mar, 2012 [facility] [address] [facility] [id number], [place] [address] 19 Mar, 2012 [facility] [address] [facility] [id number], [place] [address] 16 Mar, 2012 [facility] [place] [facility] [address] [facility] [id number], [place] [address] 25 Mar, 2012 [facility] [place] [facility] [address] [id number], [place] [address] 4067 19 Sep2011 [facility] [place] [facility] [address] [facility] [id number], [place] [address]- 4755 13 Sep2011 [facility] [place] [facility] [address] [facility] [id number], [place] [address] 07 Sep, 2011 [facility] [place] [facility] [address] [id number] [place] [address] Jan, [facility] [place] [facility] [address] [id number] [place] [address] Jan, [facility] [place] [facility] [address] [id number] [place] [address] Jan, [facility] [place] [facility] [address] [id number] [place] [address]76 Jan, [facility] [place] [facility] [address] [id number] [place] [address] 39[address] Jan, [facility] [place] [facility] [address] [id number] [place] [address] Jan, [facility] [place] [facility] [address] [id number] [place] [address] 35[address] Jan, [facility] [place] [facility] [address] [id number] [place] [address] Jan, [facility] [place] [facility] [address] [id number] [place] [address] 4165 Jan, [facility] [place] [facility] [address] [id number] [place] [address]- 56[address] Jan, [facility] [place] [facility] [address] [id number] [place] [address] 97[address] Jan, [facility] [place] [facility] [address] [id number] [place] [address] 70[address] Jan, [facility] [place] [facility] [address] [id number] [place] [address] 4[address] Jan, [facility] [place] [facility] [address] [id number] [place] [address] Jan, [facility] [place] [facility] [address] [id number] [place] [address] 9967 Jan, [facility] [place] [facility] [address] [id number] [place] [address] Jan, [facility] [place] [facility] [address] [id number] [place] [address] 9607 Dec, [facility] [place] [facility] [address] [id number] [place] [address] Dec, [facility] [place] [facility] [address] [id number] [place] [address]696 Nov, [facility] [place] [facility] [address] [id number] [place] [address] Nov, [facility] [place] [facility] [address] [id number] [place] [address] October, [facility] [place] [facility] [address] [id number] [place] [address] 1106 October, [facility] [place] [facility] [address] [id number] [place] [address] 8636 October, [facility] [place] [facility] [address] [id number] [place] [address] Sep, [facility] [place] [facility] [address] [id number] [place] [address] 16[address] Sep, [facility] [place] [facility] [address] [id number] [place] [address] 7332 Aug, [facility] [place] [facility] [address] [id number] [place] [address] 0369 Aug, [facility] [place] [facility] [address] [id number], [place] [address] Aug, [facility] [place] [facility] [address] [id number] [place] [address] Aug, [facility] [place] [facility] [address] [id number] [place] [address]843 Aug, [facility] [place] [facility] [address] [id number] [place] [address]- 4034 Aug, [facility] [place] [facility] [address] [id number] [place] [address] 07 Aug, 2011 [facility] [address] [id number] [place] [address]- [address]73 Jul, [facility] [address] [id number] [place] [address] 8[address] Jul, [facility] [address] [id number] [place] [address] 74[address] Jul, [facility] [address] [id number] [place] [address]30 May, [facility] [address] [id number] [place] [address]- 3577 May, [facility] [address] [id number] [place] [address]- 1140 May, [facility] [address] [id number] [place] [address]1 May, [facility] [address] [id number] [place] [address]- 6967 May, [facility] [address] [id number] [place] [address]- 5626 May, [facility] [address] [id number] [place] [address] 4837 May, [facility] [address] [id number] [place] [address]- 8859 25 Mar, 2011 [facility] [address] [id number] [place] [address]- [address]80 Mar, [facility] [place] [facility] [address] [id number] [place] [address]- 9382 19 Mar, 2011 [facility] [place] [facility] [address] [id number] [place] [address]- 9337 15 Mar, 2011 [facility] [address] [id number] [place] [address]- 6967 27 Mar, 2010 [facility] [place] [address] [id number], [place] [address] Mar, [facility] [place] [id number], [place] [address] Jan, [facility] [place] [id number], [place] [address] May, [facility] [place] [id number], [place] [address] 3942 May, [facility] [place] [id number], [place] [address]- 6[address] May, [facility] [place] [id number], [place] [address] 1517 May, [facility] [place] [id number], [place] [address] May, [facility] [place] [id number], [place] [address]- [address] May, [facility] [place] [id number], [place] [address]- 6[address] Mar, [facility] [place] [address] [id number], [place] [address] Sep, IMMUNIZATIONS No Known Immunizations SOCIAL HISTORY [...]
--- OUTSIDE RECORDS SUMMARY | 2018-01-25 16:36 | XMS REPORT ---
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 [id number] [place] [address]- 1970 Mar, [facility] [place] [facility] [address] [id number] [place] [address]- 6237 Mar, [facility] [place] [facility] [address] [id number] [place] [address]- 8976 Mar, [facility] [place] [facility] [address] [id number] [place] [address]- 9732 Mar, [facility] [place] [facility] [address] [id number] [place] [address]- 3565 Mar, [facility] [place] [facility] [address] [id number] [place] [address]- 6300 Jan, [facility] [place] [facility] [address] [id number] [place] [address]- 0602 Jan, [facility] [place] [facility] [address] [id number] [place] [address]- 9455 Jan, [facility] [place] [facility] [address] [id number] [place] [address]- 2911 Jan, [facility] [place] [facility] [address] [id number] [place] [address]- 0925 Jan, [facility] [place] [facility] [address] [id number] [place] [address]- 8275 Jan, [facility] [place] [facility] [address] [id number] [place] [address]- 0834 Jan, [facility] [place] [facility] [address] [id number] [place] [address]- 2396 Jan, [facility] [place] [facility] [address] [id number] [place] [address]- 3513 Jan, [facility] [place] [facility] [address] [id number] [place] [address]- 1735 Dec, [facility] [place] [facility] [address] [id number] [place] [address]- 0627 Dec, [facility] [place] [facility] [address] [id number] [place] [address]- 5393 Dec, [facility] [place] [facility] [address] [id number] [place] [address]- 9954 Dec, [facility] [place] [facility] [address] [id number] [place] [address]- 7132 Dec, [facility] [place] [facility] [address] [id number] [place] [address]- 5584 Dec, [facility] [place] [facility] [address] [id number] [place] [address]- 2560 Dec, [facility] [place] [facility] [address] [id number] [place] [address]- 9413 Dec, [facility] [place] [facility] [address] [id number] [place] [address]- 0226 Dec, [facility] [place] [facility] [address] [id number] [place] [address]- 6094 October, [facility] [place] [facility] [address] [id number] [place] [address]- 0386 October, [facility] [place] [facility] [address] [id number] [place] [address]- 0899 Sep, [facility] [place] [facility] [address] [id number] [place] [address]- 6202 15 Sep, 2013 [facility] [place] [facility] [address] [id number] [place] [address]- 0196 Aug, [facility] [place] [facility] [address] [id number] [place] [address]- 5633 Aug, [facility] [place] [facility] [address] [id number] [place] [address]- 0970 Aug, [facility] [place] [facility] [address] [id number] [place] [address]- 4547 Aug, [facility] [place] [facility] [address] [id number] [place] [address]- 4272 Aug, [facility] [place] [facility] [address] [id number] [place] [address]- 7526 Aug, [facility] [place] [facility] [address] [id number] [place] [address]- 7825 Aug, [facility] [place] [facility] [address] [id number] [place] [address]- 9735 Aug, [facility] [place] [facility] [address] [id number] [place] [address]- 3256 Aug, [facility] [place] [facility] [address] [id number] [place] [address]- 7050 Aug, [facility] [place] [facility] [address] [id number] [place] [address]- 2923 Aug, [facility] [place] [facility] [address] [id number] [place] [address]- 4826 Jul, [facility] [place] [facility] [address] [id number] [place] [address]- 3656 Jul, [facility] [place] [facility] [address] [id number] [place] [address]- 8384 May, [facility] [place] [facility] [address] [id number] [place] [address]- 6986 May, [facility] [address] [id number] [place] [address]- 2594 May, [facility] [address] [id number] [place] [address]- 1259 May, [facility] [address] [id number] [place] [address]- 8811 May, [facility] [address] [id number] [place] [address]- 6857 May, [facility] [address] [id number] [place] [address]- 0832 May, [facility] [address] [id number] [place] [address]- 0125 May, [facility] [address] [id number] [place] [address]- 4454 May, [facility] [address] [id number] [place] [address]- 5567 May, [facility] [address] [id number] [place] [address]- 0825 May, [facility] [address] [id number] [place] [address]- 1259 May, [facility] [address] [id number] [place] [address]- 5805 May, [facility] [address] [id number] [place] [address]- 4994 May, [facility] [place] [facility] [address] [id number] [place] [address]- 1128 May, [facility] [address] [id number] [place] [address]- 4971 May, [facility] [address] [id number] [place] [address]- 7119 May, [facility] [place] [facility] [address] [id number] [place] [address]- 0485 18 May, 2013 [facility] [place] [facility] [address] [id number] [place] [address]- 5726 May, [facility] [place] [facility] [address] [id number] [place] [address]- 6964 16 May, 2013 [facility] [place] [facility] [address] [id number] [place] [address]- 2975 May, [facility] [place] [facility] [address] [id number] [place] [address]- 8533 May, [facility] [place] [facility] [address] [id number] [place] [address]- 8954 May, [facility] [place] [facility] [address] [id number] [place] [address]- 9702 May, [facility] [place] [facility] [address] [id number], [place] [address]- 8669 May, [facility] [place] [facility] [address] [id number], [place] [address]- 9908 May, [facility] [place] [facility] [address] [id number], [place] [address]- 8034 May, [facility] [place] [facility] [address] [id number], [place] [address]- 2656 May, [facility] [place] [facility] [address] [id number], [place] [address]- 2125 May, [facility] [place] [facility] [address] [id number], [place] [address]- 2549 May, [facility] [place] [facility] [address] [id number], [place] [address] Mar, [facility] [place] [facility] [address] [id number], [place] [address] Mar, [facility] [place] [facility] [address] [id number], [place] [address] 31 Mar, 2012 [facility] [place] [facility] [address] [id number] [place] [address] 31 Mar, 2012 [facility] [place] [facility] [address] [id number], [place] [address] 30 Mar, 2012 [facility] [place] [facility] [address] [id number] [place] [address] 29 Mar, 2012 [facility] [place] [facility] [address] [id number], [place] [address] 29 Mar, 2012 [facility] [place] [facility] [address] [id number] [place] [address] Mar, 2012 [facility] [place] [facility] [address] [id number] [place] [address] Mar, 2012 [facility] [place] [facility] [address] [id number], [place] [address] Mar, [facility] [place] [facility] [address] [id number], [place] [address] 28 Mar, 2013 [facility] [place] [facility] [address] [id number], [place] [address] 24 Mar, 2013 [facility] [place] [facility] [address] [id number], [place] [address] 8628 24 Mar, 2013 [facility] [place] [facility] [address] [id number], [place] [address] 23 Mar, 2013 [facility] [place] [facility] [address] [id number], [place] [address] 22 Mar, 2012 [facility] [place] [facility] [address] [id number], [place] [address] Mar, 2012 [facility] [place] [facility] [address] [id number], [place] [address] Mar, [facility] [place] [facility] [address] [id number], [place] [address] 8567 18 Mar, 2012 [facility] [place] [facility] [address] [id number] [place] [address]- 18[address] 18 Mar, 2013 [facility] [place] [facility] [address] [id number] [place] [address]- [address] 18 Mar, 2013 [facility] [place] [facility] [address] [id number] [place] [address]- 1674 18 Mar, 2013 [facility] [place] [facility] [address] [id number] [place] [address]- 9562 14 Mar, 2013 [facility] [place] [facility] [address] [id number] [place] [address]- 2024 14 Mar, 2013 [facility] [place] [facility] [address] [id number] [place] [address]- 7464 10 Mar, 2013 [facility] [place] [facility] [address] [id number] [place] [address]- 9378 18 Mar, 2013 [facility] [place] [facility] [address] [id number] [place] [address]- 5839 12 Mar, 2013 [facility] [place] [facility] [address] [id number] [place] [address] 68[address] 11 Mar, 2013 [facility] [place] [facility] [address] [id number] [place] [address] Jan, [facility] [place] [facility] [address] [id number] [place] [address] October, [facility] [place] [facility] [address] [id number] [place] [address] Sep, [facility] [place] [facility] [address] [id number] [place] [address]- [address] 15 Sep, 2012 [facility] [place] [facility] [address] [id number] [place] [address]- [address] Aug, [facility] [place] [facility] [address] [id number] [place] [address]- [address] 06 Aug, 2012 [facility] [place] [facility] [address] [id number] [place] [address]- 7[address] 04 Aug, 2012 [facility] [place] [facility] [address] [id number] [place] [address]- 6009 17 Jul, 2012 [facility] [place] [facility] [address] [id number] [place] [address] 37[address] May, [facility] [place] [facility] [address] [facility] [id number] [place] [address]- [address] 19 May, 2012 [facility] [place] [facility] [address] [id number] [place] [address]- 5516 18 May, 2012 [facility] [place] [facility] [address] [id number] [place] [address]- 8372 18 May, 2012 [facility] [place] [facility] [address] [id number] [place] [address]- 5097 19 Mar, 2012 [facility] [place] [facility] [address] [id number] [place] [address]- 2959 19 Mar, 2012 [facility] [place] [facility] [address] [id number] [place] [address]- 0458 16 Mar, 2012 [facility] [place] [facility] [address] [id number] [place] [address]- 4771 25 Mar, 2012 [facility] [place] [facility] [address] [id number] [place] [address]- 1167 19 Mar, 2012 [facility] [place] [facility] [address] [id number], [place] [address] 2805 13 Mar, 2012 [facility] [place] [facility] [address] [id number], [place] [address] 07 Mar, 2012 [facility] [place] [facility] [address] [id number] [place] [address]- 1413 30 Jan, 2012 [facility] [place] [facility] [address] [id number] [place] [address]- 9608 28 Jan, 2012 [facility] [place] [facility] [address] [id number] [place] [address]- 8[address] Jan, [facility] [place] [facility] [address] [id number] [place] [address]- [address] Jan, [facility] [place] [facility] [address] [id number] [place] [address]- 98[address] Jan, 2011 [facility] [place] [facility] [address] [id number] [place] [address]- 5449 Jan, 2011 [facility] [place] [facility] [address] [id number] [place] [address]- [address] Jan, 2011 [facility] [place] [facility] [address] [id number] [place] [address]- 4084 Jan, 2011 [facility] [place] [facility] [address] [id number] [place] [address]- 36[address] Jan, 2011 [facility] [place] [facility] [address] [id number] [place] [address]- 6214 Jan, [facility] [place] [facility] [address] [id number] [place] [address]- 5[address] Jan, [facility] [place] [facility] [address] [id number] [place] [address] 47[address] Jan, [facility] [place] [facility] [address] [id number] [place] [address]- 6[address] Jan, [facility] [place] [facility] [address] [id number] [place] [address]- 2506 Jan, [facility] [place] [facility] [address] [address] [id number] [place] [address] Jan, [facility] [place] [facility] [address] [id number] [place] [address] Jan, [facility] [place] [facility] [address] [id number] [place] [address] Dec, [facility] [place] [facility] [address] [id number] [place] [address] Dec, [facility] [place] [facility] [address] [id number] [place] [address] Nov, [facility] [address] [id number] [place] [address] 08 Nov, 2011 [facility] [place] [facility] [address] [id number] [place] [address] October, [facility] [place] [facility] [address] [id number] [place] [address] October, [facility] [place] [facility] [address] [id number] [place] [address] October, [facility] [place] [facility] [address] [id number] [place] [address] Sep, [facility] [place] [facility] [address] [id number] [place] [address] Sep, [facility] [place] [facility] [address] [id number] [place] [address] 30 Aug, 2011 [facility] [place] [facility] [address] [id number] [place] [address] Aug, [facility] [place] [facility] [address] [id number] [place] [address] Aug, [facility] [place] [facility] [address] [id number] [place] [address] Aug, [facility] [place] [facility] [address] [id number] [place] [address] Aug, [facility] [place] [facility] [address] [id number] [place] [address] 14 Aug, 2011 [facility] [place] [facility] [address] [id number] [place] [address] Aug, [facility] [place] [facility] [address] [id number] [place] [address] Jul, [facility] [place] [facility] [address] [id number] [place] [address] Jul, [facility] [place] [facility] [address] [id number] [place] [address] Jul, [facility] [address] [id number] [place] [address] May, [facility] [place] [facility] [address] [id number] [place] [address] May, [facility] [place] [facility] [address] [id number] [place] [address] May, [facility] [place] [facility] [address] [id number] [place] [address] May, [facility] [place] [facility] [address] [id number] [place] [address], [place] May, [facility] [place] [facility] [address] [id number] [place] [address] May, [facility] [place] [facility] [address] [id number] [place] [address] May, [facility] [place] [facility] [address] [id number] [place] [address] Mar, [facility] [place] [facility] [address] [id number] [place] [address] Mar, [facility] [place] [facility] [address] [id number] [place] [address] Mar, [facility] [place] [facility] [address] [id number] [place] [address] 15 Mar, 2011 [facility] [place] [facility] [address] [id number], [place] [address] 27 Mar, 2010 [facility] [place] [facility] [address] [id number] [place] [address] 13 Mar, 2010 [facility] [place] [facility] [address] [id number] [place] [address] 10 Jan, 2010 [facility] [place] [facility] [address] [id number] [place] [address] 31 May, 2009 [facility] [place] [facility] [address] [id number] [address] May, [facility] [address] [id number], [place] [address] May, [facility] [id number] [address] May, [facility] [address] [id number], [place] [address] May, [facility] [address] [id number], [place] [address] May, [facility] [address] [id number], [place] [address] Mar, [facility] [id number], [place] [address] Sep, IMMUNIZATIONS No Known Immunizations SOCIAL HISTORY Never Assessed REASON FOR VISIT Controlled Med Refill 04/03/2017 PLAN OF CARE VITAL SIGNS MEDICATIONS Medication Instructions Dosage Frequency Start Date End Date Duration Status Xanax 1 MG Orally 3 times a day 1 tablet 8h Aug, 28 days Active Hydrocodone-Acetaminophen 7.5-325 MG Orally twice a day 1 tablet as needed 12h Mar, 28 days Active RESULTS No Results PROCEDURES [...]
--- OUTSIDE RECORDS SUMMARY | 2018-01-25 16:37 | XMS REPORT ---
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 [facility] [address] [id number] [place] [address]- 9878 Mar, [facility] [place] [facility] [address] [id number] [place] [address]- 2464 Mar, [facility] [place] [facility] [address] [id number] [place] [address]- 4809 Mar, [facility] [place] [facility] [address] [id number] [place] [address]- 4850 Mar, [facility] [place] [facility] [address] [id number] [place] [address]- 5025 Mar, [facility] [place] [facility] [address] [id number] [place] [address]- 2958 Jan, [facility] [place] [facility] [address] [id number] [place] [address]- 0187 Jan, [facility] [place] [facility] [address] [id number] [place] [address]- 3551 Jan, [facility] [place] [facility] [address] [id number] [place] [address]- 3387 Jan, [facility] [place] [facility] [address] [id number] [place] [address]- 3207 Jan, [facility] [place] [facility] [address] [id number] [place] [address]- 6982 Jan, [facility] [place] [facility] [address] [id number] [place] [address]- 5676 Jan, [facility] [place] [facility] [address] [id number] [place] [address]- 3633 Jan, [facility] [place] [facility] [address] [id number] [place] [address]- 6661 Jan, [facility] [place] [facility] [address] [id number] [place] [address]- 5124 Dec, [facility] [place] [facility] [address] [id number] [place] [address]- 2530 Dec, [facility] [place] [facility] [address] [id number] [place] [address]- 3236 Dec, [facility] [place] [facility] [address] [id number] [place] [address]- 8347 Dec, [facility] [place] [facility] [address] [id number] [place] [address]- 2915 Dec, [facility] [place] [facility] [address] [id number] [place] [address]- 8451 Dec, [facility] [place] [facility] [address] [id number] [place] [address]- 0090 Dec, [facility] [place] [facility] [address] [id number] [place] [address]- 1324 Dec, [facility] [place] [facility] [address] [id number] [place] [address]- 9166 Dec, [facility] [place] [facility] [address] [id number] [place] [address]- 4695 October, [facility] [place] [facility] [address] [id number] [place] [address]- 4415 October, [facility] [place] [facility] [address] [id number] [place] [address]- 4498 Sep, [facility] [place] [facility] [address] [id number] [place] [address]- 0177 Sep, [facility] [place] [facility] [address] [id number] [place] [address]- 2589 Aug, [facility] [place] [facility] [address] [id number] [place] [address]- 7095 Aug, [facility] [place] [facility] [address] [id number] [place] [address]- 5069 Aug, [facility] [place] [facility] [address] [id number] [place] [address]- 1150 Aug, [facility] [place] [facility] [address] [id number] [place] [address]- 2548 Aug, [facility] [place] [facility] [address] [id number] [place] [address]- 8334 Aug, [facility] [place] [facility] [address] [id number] [place] [address]- 7232 Aug, [facility] [place] [facility] [address] [id number] [place] [address]- 5471 Aug, [facility] [place] [facility] [address] [id number] [place] [address]- 0739 Aug, [facility] [place] [facility] [address] [id number] [place] [address]- 1370 Aug, [facility] [place] [facility] [address] [id number] [place] [address]- 8437 Aug, [facility] [place] [facility] [address] [id number] [place] [address]- 5176 Jul, [facility] [place] [facility] [address] [id number] [place] [address]- 2597 Jul, [facility] [place] [facility] [address] [id number] [place] [address]- 7431 May, [facility] [address] [id number] [place] [address]- 5295 May, [facility] [address] [id number] [place] [address]- 2516 May, [facility] [address] [id number] [place] [address]- 2246 May, [facility] [address] [id number] [place] [address]- 0424 May, [facility] [address] [id number] [place] [address]- 6078 May, [facility] [address] [id number] [place] [address]- 0163 May, [facility] [address] [id number] [place] [address]- 9996 May, [facility] [address] [id number] [place] [address]- 4607 May, [facility] [address] [id number] [place] [address]- 7974 May, [facility] [address] [id number] [place] [address]- 9067 May, [facility] [address] [id number] [place] [address]- 1881 May, [facility] [address] [id number] [place] [address]- 2547 May, [facility] [place] [facility] [address] [id number] [place] [address]- 6883 May, [facility] [address] [id number] [place] [address]- 2958 May, [facility] [address] [id number] [place] [address]- 7278 May, [facility] [place] [facility] [address] [id number] [place] [address]- 0611 May, [facility] [place] [facility] [address] [id number] [place] [address]- 9705 May, [facility] [place] [facility] [address] [id number] [place] [address]- 2484 May, [facility] [place] [facility] [address] [id number] [place] [address]- 2992 May, [facility] [place] [facility] [address] [id number] [place] [address]- 4465 May, [facility] [place] [facility] [address] [id number] [place] [address]- 3173 May, [facility] [place] [facility] [address] [id number] [place] [address]- 1319 May, [facility] [place] [facility] [address] [id number], [place] [address]- 8356 May, [facility] [place] [facility] [address] [id number], [place] [address]- 6004 May, [facility] [place] [facility] [address] [id number], [place] [address]- 9916 May, [facility] [place] [facility] [address] [id number], [place] [address]- 3138 May, [facility] [place] [facility] [address] [id number], [place] [address]- 1997 May, [facility] [place] [facility] [address] [id number], [place] [address]- 3804 May, [facility] [place] [facility] [address] [id number], [place] [address]- 7264 May, [facility] [place] [facility] [address] [id number], [place] [address]- 2394 Mar, [facility] [place] [facility] [address] [id number], [place] [address]- 4903 31 Mar, 2012 [facility] [place] [facility] [address] [id number] [place] [address]- 9096 31 Mar, 2012 [facility] [place] [facility] [address] [id number], [place] [address]- 2626 31 Mar, 2012 [facility] [place] [facility] [address] [id number] [place] [address]- 4199 30 Mar, 2012 [facility] [place] [facility] [address] [id number], [place] [address]- 8636 29 Mar, 2012 [facility] [place] [facility] [address] [id number] [place] [address]- 6527 29 Mar, 2012 [facility] [place] [facility] [address] [id number] [place] [address]- 7840 Mar, 2012 [facility] [place] [facility] [address] [id number], [place] [address]- 1335 Mar, 2012 [facility] [place] [facility] [address] [id number], [place] [address]- 4348 Mar, [facility] [place] [facility] [address] [id number], [place] [address]- 2091 28 Mar, 2013 [facility] [place] [facility] [address] [id number], [place] [address]- 2885 Mar, [facility] [place] [facility] [address] [id number], [place] [address]- 8289 24 Mar, 2012 [facility] [place] [facility] [address] [id number], [place] [address]- 2703 Mar, 2012 [facility] [place] [facility] [address] [id number], [place] [address]- 2034 Mar, 2012 [facility] [place] [facility] [address] [id number], [place] [address]- 0088 Mar, 2012 [facility] [place] [facility] [address] [id number], [place] [address]- 8531 Mar, 2012 [facility] [place] [facility] [address] [id number] [place] [address]- 0859 18 Mar, 2013 [facility] [place] [facility] [address] [id number] [place] [address]- 0597 18 Mar, 2013 [facility] [place] [facility] [address] [id number] [place] [address]- 3292 18 Mar, 2013 [facility] [place] [facility] [address] [id number] [place] [address]- 2643 18 Mar, 2013 [facility] [place] [facility] [address] [id number] [place] [address] 7315 14 Mar, 2013 [facility] [place] [facility] [address] [id number] [place] [address] 9[address] 14 Mar, 2013 [facility] [place] [facility] [address] [id number] [place] [address]- 1688 10 Mar, 2013 [facility] [place] [facility] [address] [id number] [place] [address] 7580 18 Mar, 2013 [facility] [place] [facility] [address] [id number] [place] [address] 8272 12 Mar, 2013 [facility] [place] [facility] [address] [id number] [place] [address] 3[address] 11 Mar, 2013 [facility] [place] [facility] [address] [id number] [place] [address] Jan, [facility] [place] [facility] [address] [id number] [place] [address] 69[address] October, [facility] [place] [facility] [address] [id number] [place] [address]- 3769 Sep, [facility] [place] [facility] [address] [id number] [place] [address] 9078 Sep, [facility] [place] [facility] [address] [id number] [place] [address]- 1476 Aug, [facility] [place] [facility] [address] [id number] [place] [address]- 6183 06 Aug, 2012 [facility] [place] [facility] [address] [id number] [place] [address] 8958 Aug, [facility] [place] [facility] [address] [id number] [place] [address]- 49[address] Jul, [facility] [place] [facility] [address] [facility] [id number] [id number] [address] May, [facility] [place] [facility] [address] [id number] [id number] [address] May, [facility] [place] [facility] [address] [id number] [place] [address]- 2052 May, [facility] [place] [facility] [address] [facility] [id number] [place] [address]- 2608 18 May, 2012 [facility] [place] [facility] [address] [facility] [id number] [place] [address]- 5204 Mar, [facility] [place] [facility] [address] [id number] [place] [address]- 6392 19 Mar, 2012 [facility] [place] [facility] [address] [id number] [place] [address]- 0080 16 Mar, 2012 [facility] [place] [facility] [address] [id number] [place] [address]- 8531 25 Mar, 2012 [facility] [place] [facility] [address] [id number], [place] [address] 19 Mar, 2012 [facility] [place] [facility] [address] [id number], [place] [address] 13 Mar, 2012 [facility] [place] [facility] [address] [id number] [place] [address]- 8829 07 Mar, 2012 [facility] [place] [facility] [address] [facility] [id number], [place] [address]- [address] 30 Jan, 2012 [facility] [place] [facility] [address] [facility] [id number] [place] [address]- 37[address] Jan, [facility] [place] [facility] [address] [id number] [place] [address]- 6246 Jan, 2011 [facility] [place] [facility] [address] [id number] [place] [address]- 0292 Jan, [facility] [place] [facility] [address] [id number] [place] [address] 4106 Jan, 2011 [facility] [place] [facility] [address] [id number] [place] [address]508 Jan, 2011 [facility] [place] [facility] [address] [id number] [place] [address]- 3273 Jan, 2011 [facility] [place] [facility] [address] [id number] [place] [address]- 0664 Jan, [facility] [place] [facility] [address] [id number] [place] [address]- 8833 Jan, [facility] [place] [facility] [address] [id number] [place] [address]- 1481 Jan, [facility] [place] [facility] [address] [id number] [place] [address]- 3[address] Jan, [facility] [place] [facility] [address] [id number] [place] [address]- 6235 Jan, [facility] [place] [facility] [address] [id number] [place] [address]- 1782 Jan, [facility] [place] [facility] [address] [id number] [place] [address]- 5418 Jan, [facility] [place] [facility] [address] [id number] [place] [address]- 4423 Jan, [facility] [place] [facility] [address] [id number] [place] [address]- 6559 Jan, [facility] [place] [facility] [address] [id number] [place] [address]- 0135 Dec, [facility] [place] [facility] [address] [id number] [place] [address]- 6460 Dec, [facility] [address] [id number] [place] [address]- 0836 Nov, [facility] [place] [facility] [address] [id number] [place] [address]- 0706 Nov, [facility] [place] [facility] [address] [id number] [place] [address]- 5066 October, [facility] [place] [facility] [address] [id number] [place] [address]- 1756 October, [facility] [place] [facility] [address] [id number] [place] [address]- 2786 October, [facility] [place] [facility] [address] [id number] [place] [address]- 7636 Sep, [facility] [place] [facility] [address] [id number] [place] [address]- 2926 Sep, [facility] [place] [facility] [address] [id number] [place] [address]- 7398 Aug, [facility] [place] [facility] [address] [id number] [place] [address]- 3625 Aug, [facility] [place] [facility] [address] [id number] [place] [address]- 7646 Aug, [facility] [place] [facility] [address] [id number] [place] [address]- 7486 Aug, [facility] [place] [facility] [address] [id number] [place] [address]- 9106 Aug, [facility] [place] [facility] [address] [id number] [place] [address]- 2901 Aug, [facility] [place] [facility] [address] [id number] [place] [address]- 2566 Aug, [facility] [place] [facility] [address] [id number] [place] [address]- 9176 Jul, [facility] [place] [facility] [address] [address] [id number] [place] [address] Jul, [facility] [address] [id number] [place] [address] Jul, [facility] [place] [facility] [address] [id number] [place] [address] May, [facility] [place] [facility] [address] [id number] [place] [address] May, [facility] [place] [facility] [address] [id number] [place] [address] May, [facility] [place] [facility] [address] [id number] [place] [address], [place] [address] May, [facility] [place] [facility] [address] [id number] [place] [address] May, [facility] [place] [facility] [address] [id number] [place] [address] May, [facility] [place] [facility] [address] [id number] [place] [address] May, [facility] [place] [facility] [address] [id number] [place] [address] Mar, [facility] [place] [facility] [address] [id number] [place] [address] Mar, [facility] [place] [facility] [address] [id number] [place] [address] Mar, [facility] [place] [facility] [address] [id number], [place] [address] 15 Mar, 2011 [facility] [place] [facility] [address] [id number] [place] [address] Mar, [facility] [place] [facility] [address] [id number] [place] [address] 13 Mar, 2010 [facility] [place] [facility] [address] [id number], [place] [address] Jan, [facility] [place] [facility] [address] [id number] [address] May, 2009 [facility] [id number], [place] [address] 16 May, 2009 [facility] [id number], [place] [address] May, [facility] [id number], [place] [address] May, [facility] [id number], [place] [address] May, [facility] [id number], [place] [address] May, [facility] [id number], [place] [address] Mar, [facility] [id number], [place] [address] Sep, IMMUNIZATIONS No Known Immunizations SOCIAL HISTORY Never Assessed REASON FOR VISIT Controlled Med Refill 03/06/2017 PLAN OF CARE VITAL SIGNS MEDICATIONS Medication Instructions Dosage Frequency Start Date End Date Duration Status Xanax 1 MG Orally 3 times a day 1 tablet 8h 26 Aug, 2014 28 days Active Hydrocodone-Acetaminophen 7.5-325 MG Orally twice a day 1 tablet as needed 12h 05 Mar, 2017 28 days Active RESULTS No Results PROCEDURES [...]
[2018-01-25 16:38] VITALS: BP 129/76
[2018-01-26] MEDS ORDERED: HYDR-3812 PO (18:20)
== END 2018-01-25 16:41 | disposition home or self-care (01) ==
LOC: EDUNIT# 15:38 → ER 15:39
DX: K04.7 Periapical abscess without sinus (principal); J43.9 Emphysema, unspecified; J45.909 Unspecified asthma, uncomplicated; I10 Essential (primary) hypertension; E11.9 Type 2 diabetes mellitus without complications; F41.9 Anxiety disorder, unspecified; F32.9 Major depressive disorder, single episode, unspecified; Z82.49 Family history of ischemic heart disease and other diseases of the circulatory system; Z87.442 Personal history of urinary calculi; Z87.448 Personal history of other diseases of urinary system; Z88.0 Allergy status to penicillin; Z88.2 Allergy status to sulfonamides; Z88.8 Allergy status to other drugs, medicaments and biological substances; Z79.51 Long term (current) use of inhaled steroids; Z77.22 Contact with and (suspected) exposure to environmental tobacco smoke (acute) (chronic); Z79.52 Long term (current) use of systemic steroids; Z90.89 Acquired absence of other organs
CPT/HCPCS: 96372; 99284

== ENCOUNTER 2018-01-26 15:48 | Emergency (ER) | payer MEDICAID ==
[~2018-01-26] VITALS: Ht 162.6 cm; Wt 54.4 kg
--- OUTSIDE RECORDS SUMMARY | 2018-01-26 15:54 | XMS REPORT | Clinical Summary ---
Author Author [facility] Organization [facility] Address Unknown Phone Unavailable Care Team Providers Care Healthcare Translator Name Role Phone Dung Frances DO Unavailable Delaney Min DO Unavailable Tammy Grajeda APRN PCP Source Comments Some departments are not documenting in the electronic medical record. If you do not see the information that you expected, contact Release of Information in the Health Information Management department at [phone] for further assistance in locating additional records.[facility] Allergies Active Allergy Reactions Severity Noted [...] Taken Blood Pressure 131/50 05/25/2013 11:03 AM SERVER Pulse 73 05/25/2013 11:03 AM SERVER Temperature 36.1 C (97 F) 05/25/2013 11:03 AM SERVER Respiratory Rate 16 05/25/2013 11:03 AM SERVER Oxygen Saturation 97% 05/25/2013 11:03 AM SERVER Inhaled Oxygen - - Concentration Weight 59.4 kg (131 lb) 05/25/2013 11:03 AM SERVER Height 158.4 cm (5' 2.36") 05/25/2013 11:03 AM SERVER Body Mass Index 23.68 05/25/2013 11:03 AM SERVER Plan of Treatment Health Maintenance Due Date Last Done Comments PHYSICAL (COMPREHENSIVE) 11/19/1986 EXAM PERTUSSIS VACCINE 11/19/1990 TETANUS VACCINE 11/19/1996 CERVICAL CANCER SCREENING 11/19/2009 INFLUENZA VACCINE 03/31/2018 HIV SCREENING Completed 05/25/2013 Results Not on filefrom Last 3 Months
[2018-01-26] MEDS ORDERED: BUPIVACAINE 0.5% 30 ML (SENSORCAINE) VIAL INJ ONE (17:30)
[2018-01-26] MEDS ORDERED: LIDOCAINE 1% INJ 20 ML 20 ML VIAL INJ ONE (18:15)
[2018-01-26] MEDS ORDERED: RX-HYDROCODONE/APAP 5/325 MG #4 TAB PK PO PRN (18:15)
[2018-01-26] MEDS ORDERED: LIDOCAINE 2% VISCOUS 15 ML UDC PO ONE (18:15)
[2018-01-26] MEDS ORDERED: cefTRIAXone 1 GM (ROCEPHIN) VIAL IM ONE (18:15)
[2018-01-26] MEDS ORDERED: HYDR-3812 PO (18:20)
--- NOTE | 2018-01-26 18:21 | ED EENT ---
History of Present Illness General Chief Complaint: Dental Problems/Pain Stated Complaint: DENTAL INFECTION Nursing Triage Note: PT PRESENTS TO ED WITH COMPLAINTS OF CONTINUED DENTAL PAIN AND SWELLING IN L LOWER JAW AREA. Source: patient, old records Exam Limitations: no limitations History of Present Illness Date Seen by Provider: Jan 26, 2018 Time Seen by Provider: 16:54 Initial Comments This 37-year-old woman presents to emergency room with complaints of worsening pain and swelling from suspected dental abscess on the left lower jaw. She was seen in this ER yesterday. She was given a local nerve block. She was already being treated with clindamycin as prescribed in an outpatient visit. She has been afebrile. There is no drainage of abscess externally. At home she is taking Tylenol and ibuprofen which is not providing significant relief. She has had symptoms for about 5 days. She is to see Dr. Plata (dentist) in follow-up. She has pain in the left side of her mouth with swallowing. Symptoms are notably worse than they were last night despite use of antibiotics. 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, (Reported) Escitalopram Oxalate 20 Mg Tablet, 40 MG PO DAILY, (Reported) TAKES 2 (20MG) TABLETS Hydrocodone Bit/Acetaminophen 1 Tab Tab, 1-2 EACH PO Q6H PRN for BREAKTHROUGH PAIN Prescribed by: AGATHA DREW on 08/03/17 0236 Hydrocodone/Acetaminophen 1 Each Tablet, 1 EACH PO Q6H PRN for PAIN-MODERATE TO SEVERE Prescribed by: MARLI DOBSON on 01/26/18 1820 Metoprolol Succinate 50 Mg Tab.er.24h, 50 MG PO DAILY, (Reported) Ondansetron 8 Mg Tab.rapdis, 8 MG PO Q6H PRN for NAUSEA/VOMITING-1ST LINE Prescribed by: ROXANNE WADE on 01/28/17 1644 Ondansetron 4 Mg Tab.rapdis, 4 MG PO Q6H PRN for NAUSEA/VOMITING-1ST LINE Prescribed by: AGATHA DREW on 08/03/17 0236 Prednisone 20 Mg Tab, 40 MG PO DAILY Prescribed by: ROXANNE WADE on 10/07/17 2244 Patient Home Medication List Home Medication List Reviewed: Yes Review of Systems Constitutional: no symptoms reported Eyes: No Symptoms Reported Ears: No Symptoms Reported Nose: no symptoms reported Mouth: see HPI Throat: no symptoms reported Respiratory: no symptoms reported Cardiovascular: no symptoms reported Gastrointestinal: no symptoms reported Musculoskeletal: no symptoms reported Skin: no symptoms reported Neurological: No Symptoms Reported Past Ulwvhld-Ymjmac-Ejdbrr Hx Past Med/Social Hx: Reviewed Nursing Past Med/Soc Hx Patient Social History Alcohol Use: Denies Use Recreational Drug Use: Yes (SMOKES 1PPD) Smoking Status: Current Everyday Smoker Type Used: Cigarettes 2nd Hand Smoke Exposure: Yes Recent Foreign Travel: No Contact w/Someone Who Travel: No Recent Infectious Disease Expo: No Recent Hopitalizations: No Physical Abuse: No Sexual Abuse: No Mistreated: No Fear: No Immunizations Up To Date Tetanus Booster (TDap): Less than 5yrs PED Vaccines UTD: Yes Date of Pneumonia Vaccine: Apr 09, 2013 Date of Influenza Vaccine: Apr 09, 2016 Seasonal Allergies Seasonal Allergies: No Past Medical History Surgeries: Yes Appendectomy, Orthopedic Respiratory: No Asthma, Emphysema Currently Using CPAP: No Currently Using BIPAP: No Cardiac: No Heart Murmur, Hypertension Neurological: No Reproductive Disorders: No Female Reproductive Disorders: Denies Sexually Transmitted Disease: No HIV/AIDS: No Genitourinary: No Kidney Infection, Bladder Infection, Kidney Stones Gastrointestinal: No Musculoskeletal: No Chronic Back Pain Endocrine: No Diabetes, Non-Insulin dep HEENT: No Loss of Vision: Denies Hearing Impairment: Denies Cancer: No Psychosocial: Yes Anxiety, Depression Nursing Suicide Risk Score: 0 Integumentary: No Recent Skin Changes Blood Disorders: No Adverse Reaction/Blood Tranf: No (never had a transfusion) Family Medical History Cardiovascular disease 19 FATHER Hypertension 19 FATHER Myocardial infarction 19 FATHER No Family History of: Diabetes mellitus Respiratory disorder Seizure disorder No Pertinent Family Hx, Heart Disease, Cancer, Renal Disease Physical Exam Vital Signs Vital Signs - First Documented 01/26/18 16:31 Temp 98.1 Pulse 79 Resp 16 B/P (MAP) 121/76 (91) Pulse Ox 98 Height, Weight, BMI Height: 5'4.00" Weight: 120lbs. 0oz. 54.008011lr; 22.1 BMI Method:Stated General Appearance: WD/WN, mild distress Ears: bilateral ear auricle normal, bilateral ear canal normal, bilateral ear TM normal Nose: normal inspection Mouth/Throat: other (There is pain and tenderness to the left jaw on palpation. Significant swelling is noted with possible fluctuance on the lateral aspect of the left jaw. There is tenderness and inflammation around the gingiva of the left molars. 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, no motor/sensory deficits, alert, normal mood/affect, oriented x 3 Skin: normal color, warm/dry Progress/Results/Core Measures Results/Orders My Orders Orders - MARLI PAYNE MD Bupivacaine 0.5% Injection (Sensorcaine (01/26/18 17:30) Lidocaine 2% Viscous 15 Ml (Xylocaine Vi (01/26/18 18:15) Rx-Hydrocodone/Apap 5-325 Mg (Rx-Vicodin (01/26/18 18:15) Ceftriaxone Injection (Rocephin Injectio (01/26/18 18:15) Lidocaine 1% Inj 20 Ml (Xylocaine 1% Inj (01/26/18 18:15) Wound Culture (01/27/18 09:03) Vital Signs/I&O Blood Pressure Mean: 91 Progress Progress Note : Progress Note Ultrasound was used to further evaluate the swollen area of the left jaw. There appeared to be a small fluid collection lateral to the jaw. This was felt large enough to warrant attempt of incision and drainage. Patient gave verbal informed consent. A infra-alveolar nerve block was used with a 1:1 mixture of Marcaine and lidocaine with epinephrine. 4 mL was injected for the nerve block and an additional 2 mL was used locally. I first attempted to aspirate the suspected abscess with a 16-gauge needle. Bloody fluid was aspirated but did not appear to be purulent. The fluid was sent for culture. A second attempt was made more anteriorly. No significant drainage was aspirated. The mucosa was also punctured with a scalpel at each site, again with no return of purulent material. No further attempts were made. Patient was dispensed with anesthetic gauze pads for further topical anesthesia. She was given an injection of Rocephin for further antibiotic treatment. See discharge instructions. Departure Impression Primary Impression: Dental abscess Disposition: HOME, SELF-CARE Condition: Improved Departure-Patient Inst. Decision time for Depature: 18:30 Referrals: [facility]/CINDY (PCP) Primary Care Physician MARIA DE JESUS MERCADO (Family) Primary Care Physician Patient Instructions: Tooth Abscess (DC) Add. Discharge Instructions: You may continue to use ibuprofen up to 600 mg every 6 hours for primary pain control. Add hydrocodone as prescribed for pain not controlled by ibuprofen. You may use anesthetic gauze pads for topical pain control as well. Do not fall sleep with gauze pads in your mouth as they are a choking risk. Also eat and drink very carefully after using anesthetic gauze pads. Continue with clindamycin as prescribed and follow-up with your dentist as soon as possible. Return to care if symptoms worsen, especially if you develop fevers over 100. All discharge instructions reviewed with patient and/or family. Voiced understanding. Scripts Hydrocodone/Acetaminophen (Hydrocodone-Acetamin 5-325 mg) 1 Each Tablet 1 EACH PO Q6H PRN for PAIN-MODERATE TO SEVERE, #15 TAB Prov: MARLI PAYNE MD 01/26/18 MARLI PAYNE MD Jan 26, 2018 18:21
[2018-01-26 18:46] VITALS: BP 123/74
== END 2018-01-26 18:46 | disposition home or self-care (01) ==
LOC: EDUNIT# 15:48 → ER 15:49
DX: K04.7 Periapical abscess without sinus (principal); J43.9 Emphysema, unspecified; I10 Essential (primary) hypertension; E11.9 Type 2 diabetes mellitus without complications; F41.9 Anxiety disorder, unspecified; F32.9 Major depressive disorder, single episode, unspecified; J45.909 Unspecified asthma, uncomplicated; F17.210 Nicotine dependence, cigarettes, uncomplicated; Z88.0 Allergy status to penicillin; Z87.442 Personal history of urinary calculi; Z90.89 Acquired absence of other organs; Z88.2 Allergy status to sulfonamides; Z82.49 Family history of ischemic heart disease and other diseases of the circulatory system; Z88.1 Allergy status to other antibiotic agents; Z79.51 Long term (current) use of inhaled steroids; Z79.52 Long term (current) use of systemic steroids
CPT/HCPCS: 41800; 87070; 87186; 87205; 96372

== ENCOUNTER → 2018-11-17 | Outpatient (CLI) | payer MEDICAID ==
[~2018-11-17] MED LIST changes: +HYDR-3812 PO
== END ==
LOC: CARD 08:59
PROVIDERS: ATTEND Internal Medicine Cardiovascular Disease
DX: R07.89 Other chest pain (principal); Z72.0 Tobacco use; Z82.49 Family history of ischemic heart disease and other diseases of the circulatory system
CPT/HCPCS: 93306

== ENCOUNTER → 2018-11-19 | Outpatient (CLI) | payer MEDICAID ==
[~2018-11-19] VITALS: Ht 162.6 cm; Wt 59.4 kg
[~2018-11-19] MED LIST changes: +CATHETER FLUSH 10 ML SYR IV PRN; +REGADENOSON 0.4 MG/5 ML SYR (LEXISCAN) IV ONE
[2018-11-19 09:40] VITALS: BP 121/81
[2018-11-19 09:55] VITALS: BP 143/77
--- NOTE | 2018-11-19 19:51 | STRESS TEST ---
DATE OF SERVICE: 11/19/2018 LEXISCAN MYOVIEW STRESS TEST REPORT REFERRING PHYSICIAN: [facility]. Baseline heart rate is 55. Baseline blood pressure 121/76. Baseline EKG is sinus rhythm with no ischemic changes. In summary, the patient was scheduled initially for exercise stress test. She was given 10.26 mCi of technetium-99 Myoview and the resting images were obtained. Then, she started exercising on the standard Nabil protocol. She was able to exercise for 8 minutes and 30 seconds on standard Nabil protocol, achieved only 62% of maximum expected heart rate, was unable to perform any further. Test was terminated and converted to Lexiscan Myoview stress test. She received 0.4 mg of Lexiscan, followed by 29.9 mCi of technetium-99 Myoview. Throughout the test, there were no EKG changes. The resting and stress images were reviewed and compared in the short axis, horizontal long axis, and vertical long axis views. Review of the images showed breast attenuation affecting the quality of the images. There is no significant ischemia or infarction on SPECT images. SSS is 3, SDS 3, TID value 0.93. On the gated images, the left ventricle appeared to be in normal size with normal contractility. Calculated ejection fraction 72%. IN CONCLUSION: 1. The patient was unable to exercise beyond 8 minutes and 30 seconds on standard Nabil protocol, achieved only 62% of maximum expected heart rate. 2. The patient tolerated Lexiscan well. 3. Breast attenuation with no significant ischemia or infarction on SPECT images. 4. Normal left ventricular size with normal contractility. Calculated ejection fraction 72%. Job ID: [id number] DocumentID: [id number] Dictated Date: 11/19/2018 16:24:26 Tier And Detonator Date: 11/19/2018 19:51:28 Dictated By: BENJAMIN PINEDO MD
== END ==
LOC: CARD 07:50
PROVIDERS: ATTEND Internal Medicine Cardiovascular Disease
DX: R07.89 Other chest pain (principal); Z82.49 Family history of ischemic heart disease and other diseases of the circulatory system; Z72.0 Tobacco use
CPT/HCPCS: 78452; 93017

== ENCOUNTER 2019-05-05 09:10 | Observation (INO) | payer MEDICAID ==
[~2019-05-05] VITALS: Ht 162.6 cm; Wt 55.5 kg
[~2019-05-05 09:10] MED LIST changes: -CATHETER FLUSH 10 ML SYR IV PRN; -REGADENOSON 0.4 MG/5 ML SYR (LEXISCAN) IV ONE
[2019-05-05 10:09] LABS: BILIRUBIN,URINE NEGATIVE (NEGATIVE); CLARITY,URINE CLEAR; COLOR,URINE YELLOW; GLUCOSE, URINE (UA) NEGATIVE (NEGATIVE); KETONES,URINE NEGATIVE (NEGATIVE); LEUKOCYTE ESTERASE ,URINE 1+ (NEGATIVE); NITRITE,URINE NEGATIVE (NEGATIVE); PH,URINE 5 (5-9); PROTEIN,URINE 1+ (NEGATIVE)
[2019-05-05] MEDS ORDERED: KETOROLAC 30 MG/ML VIAL IVP STA (10:36)
[2019-05-05] MEDS ORDERED: NS IV 1000 ML 1,000 ML IV ONE (10:36)
[2019-05-05 10:37] LABS: RBC,URINE 25-50 /HPF
[2019-05-05 10:38] LABS: BACTERIA,URINE FEW /HPF
--- NOTE | 2019-05-05 10:48 | ED Back Pain ---
General Chief Complaint: Back Problems Stated Complaint: LOWER BACK PAIN Nursing Triage Note: AMB TO ROOM C/O LOW BACK PAIN OINSET YESTERDAY HAS NOT TAKEN ANY OTC MEDS FOR Nursing Sepsis Screen: No Definite Risk (CANDY CASSIDY) History of Present Illness Date Seen by Provider: May 05, 2019 Time Seen by Provider: 10:13 Initial Comments This is a 38 y/o female with prior hx of kidney stones and ovarian cyst rupture here with LBP which onset spontaneously 2 days ago. Pt noticed the pain upon waking up. The pain was 1st located in bilat LQ abd but now involves her bilat low back. Notes the pain radiates down her anterior RLE and exacerbates with movement. Rates pain 8/10. Has not taken anything for pain, pain improves with immobilization. Pt reports N/V 2/2 pain. denies any fevers, chills, dysuria, frequency, flank pain, hematuria, saddle numbness, bowel or bladder incontinence, recent travel, sick contact, or trauma. Location: Lumbar Spine Timing/Duration: 1-2 Days Severity: Severe Radiation: Upper Legs Modifying Factors: Improves With Immobilization, Improves With Movement Associated Symptoms: muscle spasms; No fever, No numbness in legs/feet, No tingling in legs/feet, No sensory/motor loss; lower back pain; No loss of bladder control, No loss of bowel control (CANDY CASSIDY) Timing/Duration: 2-3 Days Severity: Moderate Pain/Injury Location: Back Radiation: Upper Legs Modifying Factors: Worse With Movement Associated Symptoms: lower back pain (LUIS AMIN MD) Allergies and Home Medications Allergies Coded Allergies: Penicillins (Unverified Allergy, Mild, 06/13/16) moxifloxacin (Unverified Allergy, Mild, tongue swelling, 06/13/16) Sulfa (Sulfonamide Antibiotics) (Verified Allergy, Unknown, 06/13/16) Home Medications Albuterol 8.5 Gm Hfa.aer.ad, 2 PUFF IH QID PRN for SHORTNESS OF BREATH, (Reported) Alprazolam 1 Mg Tablet, 1 MG PO TID PRN for ANXIETY, (Reported) Epinephrine 0.3 Mg/0.3 Ml Pen.injctr, 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, (Reported) Escitalopram Oxalate 20 Mg Tablet, 40 MG PO DAILY, (Reported) TAKES 2 (20MG) TABLETS Hydrocodone Bit/Acetaminophen 1 Tab Tab, 1-2 EACH PO Q6H PRN for BREAKTHROUGH PAIN Prescribed by: AGATHA DREW on 08/03/17 0236 Hydrocodone/Acetaminophen 1 Each Tablet, 1 EACH PO Q6H PRN for PAIN-MODERATE TO SEVERE Prescribed by: MARLI DOBSON on 01/26/18 1820 Metoprolol Succinate 50 Mg Tab.er.24h, 50 MG PO DAILY, (Reported) Ondansetron 8 Mg Tab.rapdis, 8 MG PO Q6H PRN for NAUSEA/VOMITING-1ST LINE Prescribed by: ROXANNE WADE on 01/28/17 1644 Ondansetron 4 Mg Tab.rapdis, 4 MG PO Q6H PRN for NAUSEA/VOMITING-1ST LINE Prescribed by: AGATHA DREW on 08/03/17 0236 Prednisone 20 Mg Tab, 40 MG PO DAILY Prescribed by: ROXANNE WADE on 10/07/17 2244 Patient Home Medication List Home Medication List Reviewed: Yes (LUIS AMIN MD) Review of Systems Constitutional: No chills, No diaphoresis, No dizziness, No fever, No malaise, No weight loss EENTM: No ear discharge, No hearing loss, No blurred vision, No vision loss Respiratory: No cough, No dyspnea on exertion, No short of breath Cardiovascular: No chest pain, No edema, No palpitations Gastrointestinal: abdominal pain (LLQ, RLQ); No constipation, No diarrhea; nausea, vomiting Genitourinary: No dysuria, No frequency, No hematuria, No incontinence Musculoskeletal: back pain; No muscle pain Skin: No dryness, No pruritus, No rash Psychiatric/Neurological: Denies Anxiety, Denies Depressed (CANDY CASSIDY) All Other Systems Reviewed Negative Unless Noted: Yes (LUIS AMIN MD) Past Kfywiiz-Vgsxnx-Svqohk Hx Past Med/Social Hx: Reviewed Nursing Past Med/Soc Hx (LUIS AMIN MD) Patient Social History Alcohol Use: Denies Use Recreational Drug Use: Yes (SMOKES 1PPD) Smoking Status: Current Everyday Smoker Type Used: Cigarettes 2nd Hand Smoke Exposure: Yes Recent Foreign Travel: No Contact w/Someone Who Travel: No Recent Infectious Disease Expo: No Recent [facility]: No [facility] Immunizations Up To Date Tetanus Booster (TDap): Less than 5yrs PED Vaccines UTD: Yes Date of Pneumonia Vaccine: Apr 09, 2013 Date of Influenza Vaccine: Apr 09, 2016 [facility] Seasonal Allergies Seasonal Allergies: No ([facility] Past Medical History Surgeries: Yes Appendectomy, Orthopedic Respiratory: No Asthma, Emphysema Currently Using CPAP: No Currently Using BIPAP: No Cardiac: No Heart Murmur, Hypertension Neurological: No Reproductive Disorders: No Female Reproductive Disorders: Denies Sexually Transmitted Disease: No HIV/AIDS: No Genitourinary: No Kidney Infection, Bladder Infection, Kidney Stones Gastrointestinal: No Musculoskeletal: No Chronic Back Pain Endocrine: No Diabetes, Non-Insulin dep HEENT: No Loss of Vision: Denies Hearing Impairment: Denies Cancer: No Psychosocial: Yes Anxiety, Depression Integumentary: No Recent Skin Changes Blood Disorders: No Adverse Reaction/Blood Tranf: No (never had a transfusion) ([facility] Family Medical History Reviewed Nursing Family Hx (LUIS AMIN MD) Cardiovascular disease 19 FATHER Hypertension 19 FATHER Myocardial infarction 19 FATHER No Family History of: Diabetes mellitus Respiratory disorder Seizure disorder No Pertinent Family Hx, Heart Disease, Cancer, Renal Disease ([facility] Physical Exam Vital Signs Vital Signs - First Documented 05/05/19 09:18 Temp 36.2 Pulse 89 Resp 18 B/P (MAP) 172/70 (104) Pulse Ox 98 O2 Delivery Room Air (LUIS AMIN MD) Vital Signs Capillary Refill : Less Than 3 Seconds ([facility] Height, Weight, BMI Height: 5'4.00" Weight: 131lbs. 0.0oz. [id number]; 22.00 BMI Method:Stated General Appearance: WD/WN, Moderate Distress HEENT: Normal ENT Inspection, Pharynx Normal Neck: Full Range of Motion, Normal Inspection, Non Tender, Supple Cardiovascular: Regular Rate, Rhythm, No Edema, No Gallop, No JVD, No Murmur, Normal Peripheral Pulses Respiratory: Chest Non Tender, Lungs Clear, Normal Breath Sounds, No Accessory Muscle Use, No Respiratory Distress, Accessory Muscle Use Gastrointestinal: Normal Bowel Sounds, No Organomegaly, No Pulsatile Mass, Soft, Tenderness (LLQ/RLQ TTP) Back: Normal Inspection, No CVA Tenderness, No Vertebral Tenderness, Other (quarter sized, mobile nodule present in L lower back which is TTP) Extremity: Normal Capillary Refill, Normal Inspection, Normal Range of Motion, Non Tender, No Calf Tenderness, No Pedal Edema Neurologic/Psychiatric: Alert, Oriented x3, Normal Mood/Affect; No Motor Weakness, No Sensory Deficit Skin: Normal Color, Warm/Dry Lymphatic: No Adenopathy ([facility]) General Appearance: WD/WN, Moderate Distress Neck: Non Tender, Supple Cardiovascular: Regular Rate, Rhythm, No Murmur Respiratory: Lungs Clear, Normal Breath Sounds Gastrointestinal: Soft, Tenderness (LLQ/RLQ TTP) Back: No No Vertebral Tenderness; Decreased Range of Motion, Muscle Spasm, Other (bilateral lower back) Extremity: Normal Range of Motion, Non Tender Neurologic/Psychiatric: Alert, Oriented x3 Skin: Normal Color, Warm/Dry (LUIS AMIN MD) Progress/Results/Core Measures Results/Orders Lab Results Laboratory Tests Test 05/05/19 09:55 05/05/19 11:17 05/05/19 13:08 Range/Units Urine Color YELLOW Urine Clarity CLEAR Urine pH 5 5-9 Urine Specific [place] 1.015 L 1.016-1.022 Urine Protein 1+ H NEGATIVE Urine Glucose (UA) NEGATIVE NEGATIVE Urine Ketones NEGATIVE NEGATIVE Urine Nitrite NEGATIVE NEGATIVE Urine Bilirubin NEGATIVE NEGATIVE Urine Urobilinogen NORMAL NORMAL MG/DL Urine Leukocyte Esterase 1+ H NEGATIVE Urine RBC (Auto) 5+ H NEGATIVE Urine RBC 25-50 H /HPF Urine WBC 2-5 /HPF Urine Squamous Epithelial Cells 2-5 /HPF Urine Crystals NONE /LPF Urine Bacteria FEW H /HPF Urine Casts NONE /LPF Urine Mucus LARGE H /LPF Urine Culture Indicated YES White Blood Count 21.4 H 4.3-11.0 10^3/uL Red Blood Count 4.00 L 4.35-5.85 10^6/uL Hemoglobin 13.1 11.5-16.0 G/DL Hematocrit 37 35-52 % Mean Corpuscular Volume 93 80-99 FL Mean Corpuscular Hemoglobin 33 25-34 PG Mean Corpuscular Hemoglobin Concent 35 32-36 G/DL Red Cell Distribution Width 12.4 10.0-14.5 % Platelet Count 310 130-400 10^3/uL Mean Platelet Volume 9.6 7.4-10.4 FL Neutrophils (%) (Auto) 83 H 42-75 % Lymphocytes (%) (Auto) 9 L 12-44 % Monocytes (%) (Auto) 7 0-12 % Eosinophils (%) (Auto) 0 0-10 % Basophils (%) (Auto) 0 0-10 % Neutrophils # (Auto) 17.7 H 1.8-7.8 X 10^3 Lymphocytes # (Auto) 2.0 1.0-4.0 X 10^3 Monocytes # (Auto) 1.6 H 0.0-1.0 X 10^3 Eosinophils # (Auto) 0.1 0.0-0.3 10^3/uL Basophils # (Auto) 0.0 0.0-0.1 10^3/uL Neutrophils % (Manual) 76 % Lymphocytes % (Manual) 12 % Monocytes % (Manual) 9 % Eosinophils % (Manual) 0 % Basophils % (Manual) 0 % Band Neutrophils 3 % Blood Morphology Comment NORMAL Sodium Level 140 135-145 MMOL/L Potassium Level 3.5 L 3.6-5.0 MMOL/L Chloride Level 109 H 98-107 MMOL/L Carbon Dioxide Level 19 L 21-32 MMOL/L Anion Gap 12 5-14 MMOL/L Blood Urea Nitrogen 4 L 7-18 MG/DL Creatinine 0.77 0.60-1.30 MG/DL Estimat Glomerular Filtration Rate > 60 BUN/Creatinine Ratio 5 Glucose Level 90 70-105 MG/DL Calcium Level 9.0 8.5-10.1 MG/DL Corrected Calcium 8.7 8.5-10.1 MG/DL Total Bilirubin 0.9 0.1-1.0 MG/DL Aspartate Amino Transf (AST/SGOT) 16 5-34 U/L Alanine Aminotransferase (ALT/SGPT) 15 0-55 U/L Alkaline Phosphatase 48 40-136 U/L Total Protein 7.1 6.4-8.2 GM/DL Albumin 4.4 3.2-4.5 GM/DL Lactic Acid Level 0.73 0.50-2.00 MMOL/L (LUIS AMIN MD) My Orders Orders - LUIS AMIN MD Urine Bedside (05/05/19 10:02) Ua Culture If Indicated (05/05/19 10:02) Cbc With Automated Diff (05/05/19 10:36) Comprehensive Metabolic Panel (05/05/19 10:36) Ed Iv/Invasive Line Start (05/05/19 10:36) Ns Iv 1000 Ml (Sodium Chloride 0.9%) (05/05/19 10:36) Ketorolac Injection (Toradol Injection) (05/05/19 10:36) Urine Culture (05/05/19 09:55) Ct Abd/Pelvis Wo(Kidney Stone) (05/05/19 11:18) Fentanyl Injection (Sublimaze Injection (05/05/19 11:18) Manual Differential (05/05/19 11:17) Us Pelvic (Non Ob)52751 (05/05/19 10:36) Chest Pa/Lat (2 View) (05/05/19 12:00) Lactic Acid Analyzer (05/05/19 12:45) Blood Culture (05/05/19 12:45) Ceftriaxone For Iv Use (Rocephin For I (05/05/19 13:30) (LUIS AMIN MD) Medications Given in ED Current Medications Medications Dose Ordered Sig/[place] Route Start Time Stop Time Status Last Admin Dose Admin Ceftriaxone Sodium 1000 mg/ Sterile Water 10 ml @ 200 mls/hr ONCE ONCE IV 05/05/19 13:30 05/05/19 13:32 DC 05/05/19 13:47 200 MLS/HR Sodium Chloride 1,000 ml @ 0 mls/hr Q0M ONCE IV 05/05/19 10:36 05/05/19 10:39 DC 05/05/19 11:12 1,000 MLS/HR (LUIS AMIN MD) Vital Signs/I&O 05/05/19 09:18 Temp 36.2 Pulse 89 Resp 18 B/P (MAP) 172/70 (104) Pulse Ox 98 O2 Delivery Room Air (LUIS AMIN MD) Blood Pressure Mean: 104 POS Progress Progress Note : Time: 10:13 Progress Note Seen and evaluated. presentation concerning for pyelonephritis, nephrolithiasis, cystitis, ovarian cysts rupture. U/A and culture ordered, CBC and CMP pending. Will get Pelvic U/S-Non-OB. Bedside test was negative. Will start on NS IVF and a Toradol inj. Pelvic U/S was inconclusive. Will order non contrast abd CT. Will Continue to monitor pt. Abd CT was negative for nephrolithiasis or obstructive uropathy but was positive for Left basilar consolidation, suspicious for pneumonia with a trace left pleural effusion. Pain controlled on Fentanyl at this time. Will order CXR. (CANDY CASSIDY [facility]) Progress Note : Progress Note I have seen and evaluated the patient and agree with above except as indicated. I have directed the plan of care. Patient is here with significant back pain. Denies nausea or vomiting. No report of breathing problems. This is been intermittent over the last couple days but much worse today. IV, labs, UA and pelvic ultrasound ordered. Fentanyl 50 g IV ordered as well as Toradol 30 mg IV. Monitor patient. Ultrasound was not effective in evaluating the pelvis is CT abdomen pelvis ordered. Monitor patient. 1200: CT findings concerning for left lower lobe pneumonia. Two-view chest x-ray ordered. 1320: Patient does have prominent left lower lobe pneumonia and this will need to be treated. White count is also significantly elevated. All this was discussed with the patient. Given her presentation and the marked elevation of her white count, admission is indicated. I did discuss the case with Dr. Aguirre and jaimee this patient for admission, inpatient status. Rocephin 1 g IV initiated. Patient agrees to plan. We will go ahead and get sputum culture if available. Does not meet severe sepsis or septic shock criteria and lactic acid is grossly negative. (LUIS AMIN MD) Diagnostic Imaging Diagonstic Imaging: Ultrasound Plain Films/CT/US/NM/MRI: pelvis Comments NAME: MAIDA MONTLAVOJANIE Rodriguez MED REC#: [id number] PT STATUS: REG ER : 1980 PHYSICIAN: LUIS AMIN MD ADMIT DATE: 05/05/19/ER Signed POSDate of Exam: 05/05/19 US PELVIC (NON OB)[id number] PROCEDURE: US PELVIC (NON OB) TECHNIQUE: Multiple real-time grayscale images were obtained over the pelvis in various projections transabdominally. INDICATION: Pelvic pain. FINDINGS: The uterus and ovaries are not visualized. The patient did not tolerate endovaginal imaging. There is no evidence of an obvious adnexal mass. There is no ascites. IMPRESSION: Technically limited exam as described which is grossly unremarkable. Dictated by: Dictated on workstation # [id number] Dict: 05/05/19 1149 Trans: 05/05/19 1307 Interpreted by: ADRIANA CALI MD Electronically signed by: ADRIANA CALI MD 05/05/19 1307 Diagonstic Imaging: CT Plain Films/CT/US/NM/MRI: abdomen, pelvis Comments NAME: [facility] REC#: [id number] PT STATUS: REG ER : 1980 PHYSICIAN: LUIS AMIN MD ADMIT DATE: 05/05/19/ER Signed POSDate of Exam: 05/05/19 CT ABD/PELVIS WO(KIDNEY STONE) PROCEDURE: CT urinary tract, rule out kidney stone. TECHNIQUE: Multiple contiguous axial images were obtained through the abdomen and pelvis without the use of intravenous contrast. Auto Exposure Controls were utilized during the CT exam to meet ALARA standards for radiation dose reduction. INDICATION: Pelvic pain, low back pain, nausea, and vomiting. Patient has had a prior appendectomy. FINDINGS: There is a left basilar consolidation and small left pleural effusion. Heart size is normal. Right lung base is clear. The liver is normal in size without focal lesions. Gallbladder is unremarkable. There is no biliary ductal dilatation. Spleen is normal. Pancreas and adrenal glands are unremarkable. The kidneys are normal in appearance. Specifically, there is no evidence of nephrolithiasis or obstructive uropathy. The aorta is nonaneurysmal. Bowel gas pattern is nonspecific. There is no free air. There is no ascites. Bladder is normal. Uterus is normal. There is no pelvic mass or adenopathy. The osseous structures are unremarkable. IMPRESSION: Left basilar consolidation, suspect for pneumonia with a trace left pleural effusion. No other acute abnormality in the abdomen or pelvis. Specifically, there is no evidence of nephrolithiasis or obstructive uropathy. Dictated by: Dictated on workstation # [id number] Dict: 05/05/19 1145 Trans: 05/05/19 1306 Interpreted by: ADRIANA CALI MD Electronically signed by: ADRIANA CALI MD 05/05/19 1306 Diagonstic Imaging: Xray Plain Films/CT/US/NM/MRI: chest Comments [facility]. POS [place], [place] POS NAME: [facility] REC#: [id number] PT STATUS: REG ER : 1980 PHYSICIAN: LUIS AMIN MD ADMIT DATE: 05/05/19/ER Draft POSDate of Exam:05/05/19 CHEST PA/LAT (2 VIEW) INDICATION: Lower back pain. TECHNIQUE: Two-view chest, 12:25 p.m. CORRELATION STUDY: 08/03/2017. FINDINGS: The heart size, mediastinal configuration and pulmonary vasculature are within normal limits. There does appear to be a small area of infiltrate in the medial aspect of the left lower lobe along with trace left pleural effusion. Mild pectus excavatum. IMPRESSION: 1. Small patchy infiltrate in the left lower lobe along with trace left pleural effusion. Dictated on workstation # [id number] Dict: 05/05/19 1225 Trans: 05/05/19 1227 [id number] Interpreted by: MERCEDES FUNG DO Electronically signed by: (LUIS AMIN MD) Departure Communication (Admissions) Time/Spoke to Admitting Phy: 14:04 (LUIS AMIN MD) Impression Primary Impression: Left lower lobe pneumonia Qualified Codes: J18.1 - Lobar pneumonia, unspecified organism Disposition: ADMITTED INPATIENT Condition: Stable Admissions Decision to Admit Reason: Admit from ER (General) Decision to Admit/Date: May 05, 2019 Time/Decision to Admit Time: 14:04 (LUIS AMIN MD) Departure-Patient Inst. Referrals: [facility] (PCP) Primary Care Physician MARIA DE JESUS MERCADO (Family) Primary Care Physician CANDY CASSIDY MED [facility] May 05, 2019 10:48 LUIS TENORIO MD May 05, 2019 14:18 POS
--- NOTE | 2019-05-05 10:52 | NUR ---
TO ROOM TO START IV TAKEN TO PEDRO DU IV STARTED.
[2019-05-05] MEDS ORDERED: fentaNYL INJECTION 100 MCG/2 ML AMP IVP STA (11:18)
[2019-05-05 11:22] LABS: BASOPHILS % (AUTO) 0 % (0-10); EOSINOPHILS # (AUTO) 0.1 10^3/uL (0.0-0.3); EOSINOPHILS % (AUTO) 0 % (0-10); HEMATOCRIT 37 % (35-52); HEMOGLOBIN 13.1 G/DL (11.5-16.0); LYMPHOCYTES % (AUTO) 9 % (12-44); MEAN CORPUSCULAR HEMOGLOBIN 33 PG (25-34); MEAN CORPUSCULAR HGB CONC 35 G/DL (32-36); MEAN CORPUSCULAR VOLUME 93 FL (80-99); MEAN PLATELET VOLUME 9.6 FL (7.4-10.4); MONOCYTES # (AUTO) 1.6 X 10^3 (0.0-1.0); MONOCYTES % (AUTO) 7 % (0-12); NEUTROPHILS # (AUTO) 17.7 X 10^3 (1.8-7.8); NEUTROPHILS % (AUTO) 83 % (42-75); PLATELET COUNT 310 10^3/uL (130-400); RED CELL DISTRIBUTION WIDTH 12.4 % (10.0-14.5); WHITE BLOOD COUNT 21.4 10^3/uL (4.3-11.0)
[2019-05-05 11:42] LABS: ALANINE AMINOTRANSFERASE 15 U/L (0-55); ALBUMIN 4.4 GM/DL (3.2-4.5); ALKALINE PHOSPHATASE 48 U/L (40-136); BILIRUBIN,TOTAL 0.9 MG/DL (0.1-1.0); BUN/CREATININE RATIO 5; CARBON DIOXIDE 19 MMOL/L (21-32); CHLORIDE 109 MMOL/L (98-107); CREATININE SERUM 0.77 MG/DL (0.60-1.30); GFR ESTIMATED > 60; GLUCOSE 90 MG/DL (70-105); POTASSIUM 3.5 MMOL/L (3.6-5.0); SODIUM 140 MMOL/L (135-145); TOTAL PROTEIN 7.1 GM/DL (6.4-8.2)
--- NOTE | 2019-05-05 11:53 | Diagnostic Imaging Report ---
PROCEDURE: CT urinary tract, rule out kidney stone. TECHNIQUE: Multiple contiguous axial images were obtained through the abdomen and pelvis without the use of intravenous contrast. Auto Exposure Controls were utilized during the CT exam to meet ALARA standards for radiation dose reduction. INDICATION: Pelvic pain, low back pain, nausea, and vomiting. Patient has had a prior appendectomy. FINDINGS: There is a left basilar consolidation and small left pleural effusion. Heart size is normal. Right lung base is clear. The liver is normal in size without focal lesions. Gallbladder is unremarkable. There is no biliary ductal dilatation. Spleen is normal. Pancreas and adrenal glands are unremarkable. The kidneys are normal in appearance. Specifically, there is no evidence of nephrolithiasis or obstructive uropathy. The aorta is nonaneurysmal. Bowel gas pattern is nonspecific. There is no free air. There is no ascites. Bladder is normal. Uterus is normal. There is no pelvic mass or adenopathy. The osseous structures are unremarkable. IMPRESSION: Left basilar consolidation, suspect for pneumonia with a trace left pleural effusion. No other acute abnormality in the abdomen or pelvis. Specifically, there is no evidence of nephrolithiasis or obstructive uropathy. Dictated by: Dictated on workstation # [id number]
--- NOTE | 2019-05-05 11:54 | NUR ---
TO ROOM REPORTS CON'T TO HAVE PAIN
--- NOTE | 2019-05-05 11:55 | Diagnostic Imaging Report ---
PROCEDURE: US PELVIC (NON OB) TECHNIQUE: Multiple real-time grayscale images were obtained over the pelvis in various projections transabdominally. INDICATION: Pelvic pain. FINDINGS: The uterus and ovaries are not visualized. The patient did not tolerate endovaginal imaging. There is no evidence of an obvious adnexal mass. There is no ascites. IMPRESSION: Technically limited exam as described which is grossly unremarkable. Dictated by: Dictated on workstation # [id number]
[2019-05-05 12:15] LABS: BAND NEUTROPHILS 3 %; BASOPHILS % (MANUAL) 0 %; EOSINOPHILS % (MANUAL) 0 %; LYMPHOCYTES % (MANUAL) 12 %; MONOCYTES % (MANUAL) 9 %; NEUTROPHILS % (MANUAL) 76 %; RBC MORPH NORMAL
--- NOTE | 2019-05-05 12:28 | Diagnostic Imaging Report ---
INDICATION: Lower back pain. TECHNIQUE: Two-view chest, 12:25 p.m. CORRELATION STUDY: 08/03/2017. FINDINGS: The heart size, mediastinal configuration and pulmonary vasculature are within normal limits. There does appear to be a small area of infiltrate in the medial aspect of the left lower lobe along with trace left pleural effusion. Mild pectus excavatum. IMPRESSION: 1. Small patchy infiltrate in the left lower lobe along with trace left pleural effusion. Dictated by: Dictated on workstation # [id number]
--- NOTE | 2019-05-05 13:03 | NUR ---
LAB HERE TO DRAW 2ND BLOOD CULTURE
[2019-05-05] MEDS ORDERED: cefTRIAXone FOR IV USE 1,000 MG in WATER (STERILE) FOR INJECTION 10 ML IV ONE (13:30)
[2019-05-05 14:35] VITALS: BP 113/61
[2019-05-05] MEDS ORDERED: ALPR2TAB4 PO (15:06)
[2019-05-05] MEDS ORDERED: ESCI20TA45 PO (15:06)
[2019-05-05] MEDS ORDERED: RT-ALBUINH IH (15:08)
[2019-05-05] MEDS ORDERED: EPIN0.3P18 IJ (15:08)
[2019-05-05] MEDS ORDERED: ALBU2.5V4 NEB (15:08)
[2019-05-05] MEDS ORDERED: ACET325T38 PO (15:08)
[2019-05-05] MEDS ORDERED: IBUP-30 PO (15:08)
[2019-05-05 15:14] VITALS: BP 113/61
[2019-05-05] MEDS ORDERED: FLU QUADRIvalent (5+ YOA) 2019-2020 (AFLURIA) 0.5 ML IM ONE ×2 (15:15→16:13)
[2019-05-05] MEDS ORDERED: ONDANSETRON 4 MG/2 ML (SDV) Z0FRAN IV PRN (15:15)
[2019-05-05] MEDS ORDERED: IBUPROFEN TABLET 200 MG TAB PO PRN (15:15)
[2019-05-05] MEDS ORDERED: HYDROcodone/APAP 5 MG/325 MG (LORTAB) TAB PO PRN (15:15)
[2019-05-05] MEDS ORDERED: AZITHROMYCIN 500 MG/NS 250 ML IVPB IV NR ×2 (15:15)
[2019-05-05 15:30] VITALS: BP 129/72
[2019-05-05 15:55] VITALS: BP 113/61
[2019-05-05] MEDS ORDERED: RT-ALBUTEROL SULF 2.5 MG/3 ML PRE-MIX VIAL INH PRN (16:15)
[2019-05-05] MEDS: NS IV 1000 ML 1,000 ML IV SCH (16:21)
[2019-05-05] MEDS: RT-ALBUTEROL SULF 2.5 MG/3 ML PRE-MIX VIAL INH SCH (18:58)
[2019-05-05 19:44] VITALS: BP 104/53
[2019-05-05] MEDS ORDERED: ALPRAZolam 0.25 MG (XANAX) TAB PO PRN (20:00)
[2019-05-05] MEDS ORDERED: ENOXAPARIN 40 MG/0.4 ML (LOVENOX) SYR SC SCH (20:00)
[2019-05-05] MEDS ORDERED: ACETAMINOPHEN 500 MG TAB (TYLENOL) PO PRN (20:00)
[2019-05-05] MEDS ORDERED: fentaNYL INJECTION 100 MCG/2 ML AMP IVP PRN (20:00)
[2019-05-05] MEDS ORDERED: LOPERAMIDE 2 MG (IMODIUM) TABLET PO PRN (20:00)
[2019-05-05] MEDS ORDERED: MELATONIN 3 MG TABLET PO PRN (20:00)
[2019-05-05] MEDS ORDERED: CALCIUM CARBONATE 500 MG (TUMS) TAB.CHEW PO PRN (20:00)
[2019-05-05] MEDS ORDERED: diphenhydrAMINE 25 MG TAB (BENADRYL) PO PRN (20:00)
[2019-05-05] MEDS: SENNA W/DOCUSATE (SENOKOT S) TABLET PO SCH (20:04)
[2019-05-06 00:45] VITALS: BP 120/75
[2019-05-06] MEDS: NS IV 1000 ML 1,000 ML IV SCH ×2 (01:36→05:35)
[2019-05-06 04:00] VITALS: BP 132/82
[2019-05-06 05:29] LABS: BASOPHILS % (AUTO) 0 % (0-10); EOSINOPHILS # (AUTO) 0.1 10^3/uL (0.0-0.3); EOSINOPHILS % (AUTO) 2 % (0-10); HEMATOCRIT 33 % (35-52); HEMOGLOBIN 11.3 G/DL (11.5-16.0); LYMPHOCYTES # (AUTO) 0.9 X 10^3 (1.0-4.0); LYMPHOCYTES % (AUTO) 16 % (12-44); MEAN CORPUSCULAR HEMOGLOBIN 33 PG (25-34); MEAN CORPUSCULAR HGB CONC 34 G/DL (32-36); MEAN CORPUSCULAR VOLUME 96 FL (80-99); MEAN PLATELET VOLUME 9.7 FL (7.4-10.4); MONOCYTES # (AUTO) 0.4 X 10^3 (0.0-1.0); MONOCYTES % (AUTO) 7 % (0-12); NEUTROPHILS # (AUTO) 4.3 X 10^3 (1.8-7.8); NEUTROPHILS % (AUTO) 75 % (42-75); PLATELET COUNT 225 10^3/uL (130-400); RED CELL DISTRIBUTION WIDTH 12.3 % (10.0-14.5); WHITE BLOOD COUNT 5.7 10^3/uL (4.3-11.0)
[2019-05-06 05:49] LABS: ALANINE AMINOTRANSFERASE 10 U/L (0-55); ALBUMIN 3.4 GM/DL (3.2-4.5); ALKALINE PHOSPHATASE 35 U/L (40-136); BILIRUBIN,TOTAL 0.6 MG/DL (0.1-1.0); BUN/CREATININE RATIO 8; CARBON DIOXIDE 18 MMOL/L (21-32); CHLORIDE 114 MMOL/L (98-107); CREATININE SERUM 0.72 MG/DL (0.60-1.30); GFR ESTIMATED > 60; GLUCOSE 129 MG/DL (70-105); POTASSIUM 3.6 MMOL/L (3.6-5.0); SODIUM 141 MMOL/L (135-145); TOTAL PROTEIN 5.6 GM/DL (6.4-8.2)
[2019-05-06 08:00] VITALS: BP 127/66
[2019-05-06] MEDS: RT-ALBUTEROL SULF 2.5 MG/3 ML PRE-MIX VIAL INH SCH (08:10)
[2019-05-06 08:11] VITALS: BP 127/66
[2019-05-06] MEDS ORDERED: AZITHROMYCIN 250 MG TAB (ZITHROMAX) PO SCH (09:00)
[2019-05-06] MEDS: SENNA W/DOCUSATE (SENOKOT S) TABLET PO SCH (09:04)
[2019-05-06] MEDS ORDERED: RT-ALBUTEROL SULF 2.5 MG/3 ML PRE-MIX VIAL INH PRN (11:00)
[2019-05-06] MEDS ORDERED: AZIT250T12 PO (11:22)
[2019-05-06] MEDS ORDERED: CEFD300C3 PO (11:22)
[2019-05-06] MEDS ORDERED: RT-ALBUTEROL SULF 2.5 MG/3 ML PRE-MIX VIAL IH PRN ×2 (11:30)
[2019-05-06] MEDS ORDERED: ACETAMINOPHEN 325 MG TABLET PO PRN (11:30)
[2019-05-06] MEDS ORDERED: EPINEPHrine INJECTION 1 MG/ML AMP IM PRN (11:30)
[2019-05-06 11:42] VITALS: BP 127/66
[2019-05-06] MEDS ORDERED: IBUPROFEN 600 MG (MOTRIN) TAB PO PRN (11:45)
[2019-05-06] MEDS ORDERED: cefTRIAXone 1,000 MG/SWFI 10 ML IV PUSH IV SCH ×2 (12:00)
--- NOTE | 2019-05-06 13:04 | Short Stay Summary-Hospitalist ---
JAMAAL DELAROSA,MED STUDENT 05/06/19 1304: History of Present Illness HPI/Chief Complaint Pt experienced nausea and back pain two days ago. Endorses shortness of breath and clear productive sputum with cough. Next day, her pain migrated to waist and "ovaries" and nausea continued so she ambulated into ED. In ED, UA, CXR, CBC and CMP were collected. She was admitted for IV antibiotics and breathing treatments. No other complaints at this time. Not accompanied by family members in room. Source: patient Date Seen 05/06/19 Time Seen by a Provider: 08:26 Attending Physician Chelsey Aguirre DO [facility] [place] Referring Physician Date of Admission May 05, 2019 at 14:15 Home Medications & Allergies Home Medications Reviewed patient Home Medication Reconciliation performed by pharmacy medication reconciliations cartography technician and/or nursing. Patients Allergies have been reviewed. Allergies Allergies Coded Allergies Penicillins (Unverified Allergy, Mild, 06/13/16) moxifloxacin (Unverified Allergy, Mild, tongue swelling, 06/13/16) Sulfa (Sulfonamide Antibiotics) (Verified Allergy, Unknown, 06/13/16) Past Edzppmi-Jiqvsu-Ijaytd Hx Past Med/Social Hx: Reviewed Nursing Past Med/Soc Hx Patient Social History Alcohol Use: Denies Use Recreational Drug Use: Yes (SMOKES 1PPD) Smoking Status: Current Everyday Smoker Type Used: Cigarettes 2nd Hand Smoke Exposure: Yes Recent Foreign Travel: No Contact w/other who traveled: No Recent Hopitalizations: No Recent Infectious Disease Expo: No Immunizations Up To Date Tetanus Booster (TDap): Less than 5yrs Pediatric: Yes Date of Pneumonia Vaccine: Apr 09, 2013 Date of Influenza Vaccine: Apr 09, 2016 Seasonal Allergies Seasonal Allergies: No Past Medical History Surgeries: Appendectomy, Orthopedic Currently Using CPAP: No Currently Using BIPAP: No Cardiac: Heart Murmur, Hypertension : No Reproductive: No Sexually Transmitted Disease: No HIV/AIDS: No Female Reproductive Disorders: Denies Genitourinary: Kidney Infection, Bladder Infection, Kidney Stones Musculoskeletal: Chronic Back Pain Endocrine: Diabetes, Non-Insulin dep Loss of Vision: Denies Hearing Impairment: Denies Psychosocial: Anxiety, Depression Skin/Integumentary: Recent Skin Changes History of Blood Disorders: No Adverse Reaction to Blood Pires: No (never had a transfusion) Family History Reviewed Nursing Family Hx Cardiovascular disease 19 FATHER Hypertension 19 FATHER Myocardial infarction 19 FATHER No Family History of: Diabetes mellitus Respiratory disorder Seizure disorder No Pertinent Family Hx, Heart Disease, Cancer, Renal Disease Review of Systems Constitutional: No chills, No fever EENTM: No hearing loss, No vision loss Respiratory: cough; No dyspnea on exertion, No hemoptysis; short of breath Cardiovascular: No chest pain, No edema Gastrointestinal: No abdominal pain, No constipation, No diarrhea, No dysphagia, No hematemesis, No melena; nausea; No vomiting Genitourinary: No dysuria, No frequency Musculoskeletal: No back pain, No joint pain Skin: No lesions, No lumps Psychiatric/Neurological: Denies Anxiety, Denies Depressed Physical Exam Physical Exam Vital Signs Vital Signs - First Documented 05/05/19 05/06/19 09:18 08:11 Temp 36.2 Pulse 89 Resp 18 B/P (MAP) 172/70 (104) Pulse Ox 98 O2 Delivery Room Air FiO2 21 Capillary Refill : Less Than 3 SecondsLess Than 3 Seconds Height, Weight, BMI Height: 5'4.00" Weight: 131lbs. 0.0oz. 59.395941zo; 20.99 BMI Method:Stated General Appearance: WD/WN, Moderate Distress HEENT: Normal ENT Inspection, Pharynx Normal Neck: Non Tender, Supple Respiratory: Chest Non Tender, Lungs Clear, Normal Breath Sounds, No Accessory Muscle Use, No Respiratory Distress Cardiovascular: Regular Rate, Rhythm, No Murmur Back: No Vertebral Tenderness Extremity: Normal Range of Motion, Non Tender, No Calf Tenderness, No Pedal Edema Neurologic/Psychiatric: Alert, Oriented x3 Skin: Normal Color, Warm/Dry Lymphatic: No Adenopathy Results Results/Procedures Labs Laboratory Tests 05/05/19 11:17 05/06/19 05:20 Patient resulted labs reviewed. Imaging: Reviewed Imaging Films, Reviewed Imaging Report Imaging The heart size, mediastinal configuration and pulmonary vasculature are within normal limits. There does appear to be a small area of infiltrate in the medial aspect of the left lower lobe along with trace left pleural effusion. Mild pectus excavatum. IMPRESSION: 1. Small patchy infiltrate in the left lower lobe along with trace left pleural effusion. Short Stay Diagnosis Discharge Diagnosis-Short Stay Admission Diagnosis Pneumonia Final Discharge Diagnosis Pneumonia Conclusion Plan Admitted for observation overnight and IV antibiotics. IV ceftriaxone and oral azithromycin Sending home today with oral antibiotics Follow up in one week with her PCP Lee Clinical Quality Measures DVT/VTE Risk/Contraindication: Risk Factor Score Per Nursin RFS Level Per Nursing on Admit: 2=Moderate FLORACHELSEY TRUONG 05/07/19 0752: History of Present Illness HPI/Chief Complaint CC: Pneumonia HPI: This is a 38yoWF who has a history of smoking and pneumonia once a year and allergies who presented to the ER with flank pain, CT scan obtained because of Hematuria on UA suspecting kidney stone but was found to have a left lower lobe infiltrate with effusion was placed on broad spectrum antibiotics and white count went from 21 to normal and pt was ready for DC on room air and restarted all home medication. Smoking cessation was discussed. Source: patient Past Suixgbc-Iiimsr-Kvkgat Hx Past Med/Social Hx: Reviewed Nursing Past Med/Soc Hx, Reviewed and Corrections made Patient Social History Smoking Status: Current Everyday Smoker Family History Cardiovascular disease 19 FATHER Hypertension 19 FATHER Myocardial infarction 19 FATHER No Family History of: Diabetes mellitus Respiratory disorder Seizure disorder Review of Systems Respiratory: cough Physical Exam Physical Exam General Appearance: No Apparent Distress, WD/WN Respiratory: Lungs Clear, Decreased Breath Sounds Cardiovascular: Regular Rate, Rhythm Short Stay Diagnosis Discharge Diagnosis-Short Stay Admission Diagnosis Pneumonia Smoker Final Discharge Diagnosis Pneumonia Smoker Conclusion Plan DC home abx Stop smoking Supervisory-Addendum Brief Verification & Attestation Participated in pt care: history, MDM, physical Personally performed: exam, history, MDM, supervision of care Care discussed with: Medical Student Procedures: n/a Results interpretation: Verified all documentation Verification and Attestation of Medical Student E/M Service A medical student performed and documented this service in my presence. I re viewed and verified all information documented by the medical student and made modifications to such information, when appropriate. I personally performed the physical exam and medical decision making. Chelsey Aguirre, May 07, 2019,07:51 JAMAAL DELAROSA,SERJIO STUDENT May 06, 2019 13:04 CHELSEY MCCALL DO May 07, 2019 07:52 POS
[2019-05-06] MEDS ORDERED: RT-ALBUTEROL SULF 2.5 MG/3 ML PRE-MIX VIAL INH SCH (15:00)
[2019-05-07] MEDS ORDERED: ALPRAZolam 1 MG (XANAX) TAB PO SCH (09:00)
== END 2019-05-06 11:21 | disposition home or self-care (01) ==
LOC: EDUNIT# 09:10 → ER 09:10 → INTOOBSV 14:15 → UNDOADMOB 14:15 → 4TH 14:15 → UNDODISOB 05-06 11:42
PROVIDERS: ADMIT Internal Medicine; ATTEND Internal Medicine
DX: J18.1 Lobar pneumonia, unspecified organism (principal); J43.9 Emphysema, unspecified; M54.5 Low back pain; I10 Essential (primary) hypertension; G89.29 Other chronic pain; E11.9 Type 2 diabetes mellitus without complications; F41.8 Other specified anxiety disorders; F17.210 Nicotine dependence, cigarettes, uncomplicated; Z79.891 Long term (current) use of opiate analgesic; Z79.899 Other long term (current) drug therapy; Z88.1 Allergy status to other antibiotic agents; Z88.0 Allergy status to penicillin; Z88.2 Allergy status to sulfonamides; Z90.89 Acquired absence of other organs; Z82.49 Family history of ischemic heart disease and other diseases of the circulatory system
CPT/HCPCS: 36415; 71046; 74176; 76856; 80053; 81000; 83605; 84703; 85007; 85025; 85027; 87040; 87088; 94640; 94760; G0378

== ENCOUNTER 2019-12-30 22:57 | Emergency (ER) | payer MEDICAID ==
[~2019-12-30] VITALS: Ht 162 cm; Wt 55.5 kg
[~2019-12-30 22:57] MED LIST changes: -CYCL10TA9 PO; -TRAM-42 PO
[2019-12-30 23:21] LABS: BILIRUBIN,URINE NEGATIVE (NEGATIVE); CLARITY,URINE SL CLOUDY; COLOR,URINE YELLOW; GLUCOSE, URINE (UA) NEGATIVE (NEGATIVE); KETONES,URINE NEGATIVE (NEGATIVE); LEUKOCYTE ESTERASE ,URINE NEGATIVE (NEGATIVE); NITRITE,URINE NEGATIVE (NEGATIVE); PROTEIN,URINE NEGATIVE (NEGATIVE)
--- OUTSIDE RECORDS SUMMARY | 2019-12-30 23:25 | XMS REPORT | Clinical Summary ---
Author Author [facility] Organization [facility] Address Unknown Phone Unavailable Care Team Providers Care Atomic Physics Teacher Name Role Phone Dung Frances DO Unavailable Delaney Min DO Unavailable Tammy Grajeda APRN PCP Source Comments Some departments are not documenting in the electronic medical record. If you d o not see the information that you expected, contact Release of Information in [facility] Information Management department at [phone] for further assistan ce in locating additional records.[facility] Allergies Comments Active Allergy Reactions Severity Noted Date Sulfamethoxazole-Trimetho ANAPHYLAXIS 05/18/2013 prim Moxifloxacin UNKNOWN 05/18/2013 Penicillins UNKNOWN 05/18/2013 Sulfa (Sulfonamide UNKNOWN 05/18/2013 Antibiotics) Medications End Date Status Medication Sig Dispensed Refills Start Date Active ALPRAZOLAM (XANAX PO) Take by 0 mouth. Active ESCITALOPRAM OXALATE Take by 0 (LEXAPRO PO) mouth. Active epinephrine(+) (EPIPEN Inject 0.15 0 JR) 0.15 mg/0.3 mL mg to area(s) (1:2,000) syringe as directed as Needed. Active FESOTERODINE FUMARATE Take by 0 (TOVIAZ PO) mouth. Active METFORMIN HCL (METFORMIN Take by 0 PO) mouth. Active famotidine (PEPCID) 20 mg Take 20 mg by 0 tablet mouth twice daily. Active cetirizine (ZYRTEC) 10 mg Take 1 Tab by 90 Tab 3 05/25/201 tablet mouth every 3 morning. Active hydrOXYzine (ATARAX) 25 Take 1 Tab by 120 Tab 3 05/25/201 mg tablet mouth at 3 bedtime daily. Increase by 1 tablet per night up to 4 tablets as long as it does not make you drowsy in AM. Active Problems Problem Noted Date Angioedema 05/25/2013 Overview: Symptoms began in March and have been occuring regularly thereafter. Etiology is presently unknown. - ruling out pheochromocytoma, mast faustino l degranulation/mastocytosis (activation), thyroid abnormality, comp lement abnormalities, HIV, H pylori, cryoglobulinemia, alpha gal, autoimmune disorders, post-streptococcal, hyperserotonergic etiology - checking VMA, TSH with T4, Tryptase, Thyroglobulin AB, 24 hour urine for 11 beta prostaglandin F 2 alpha, C1q le jose, HIV, 24 hr metanephrines, LDH, IgE, H. Pylori IgG, Cryoglobulin levels , complement levels, CH50, chronic urticaria panel, beef IgE, ASO titer, A nti-TPO ab, JAVED, 5 HIAA 24 hour urine to further evaluate. - start zyrtec QAM - patient advised to change hydroxyzine to QHS. She is to start with one tablet QHS and increase to up to four t ablets QHS. She was advised to increase by one tablet each evening and to assess for drowsiness in AM. If drowsy she was advised to not increase any further and potentially step down to lower level. She has been tole rating hydroxyzine TID without significant side effects---it is antici pated she will be able to tolerate altered regimen without incident. Urticaria 05/25/2013 [place] 05/25/2013 Family History Medical History Relation Name Comments Cancer Father Heart Attack Father Diabetes Maternal Grandfather Cancer Paternal Grandfather Relation Name Status Comments Father Maternal Grandfather Paternal Grandfather Social History Date Tobacco Use Types Packs/Day Years Used Current Every Day Smoker Cigarettes 1 Drinks/Week oz/Week Comments Alcohol Use No Sex Assigned at Date Recorded Not on file Industry Job Start Date Occupation Not on file Not on file Not on file Travel End Travel History Travel Start No recent travel history available. 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 SERV[employer] Pulse 36.1 C (97 F) 05/25/2013 11:03 AM ENGINE REPAIRER SERVICE Temperature 16 05/25/2013 11:03 AM ENGINE REPAIRER [employer]ICE Respiratory Rate 97% 05/25/2013 11:03 AM ENGINE REPAIRER SERVICE Oxygen Saturation - - Inhaled Oxygen Concentration 59.4 kg (131 lb) 05/25/2013 11:03 AM ENGINE REPAIRER SERVICE Weight 158.4 cm (5' 2.36") 05/25/2013 11:03 AM ENGINE REPAIRER SERVICE Height 23.68 05/25/2013 11:03 AM ENGINE REPAIRER SERVICE Body Mass Index Plan of Treatment Health Maintenance Due Date Last Done Comments DTAP/TDAP VACCINES (1 - 11/19/1997 Tdap) HEPATITIS C SCREENING 11/19/1997 PHYSICAL (COMPREHENSIVE) 11/19/1997 EXAM CERVICAL CANCER SCREENING 11/19/2000 BREAST CANCER SCREENING 2019 INFLUENZA VACCINE 03/31/2020 HIV SCREENING Completed 05/25/2013 Results Not on filefrom Last 3 Months Advance Directives Patient 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
[2019-12-30 23:26] LABS: BACTERIA,URINE MODERATE /HPF; WBC,URINE 0-2 /HPF
[2019-12-30 23:27] LABS: YEAST,URINE FEW /HPF
--- OUTSIDE RECORDS SUMMARY | 2019-12-30 23:28 | XMS REPORT ---
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 [address] [place] [address] Mar, [facility] [address] [id number] [address] [place] [address] Jan, [facility] [address] [facility] [id number] [address] [place] [address] Jan, Encounter for Depo-Provera c ontraception Z30.42 [facility] [address] [facility] [id number] [address] [place] [address] Jan, [facility] [address] [id number] [address] [place] [address] Jan, [facility] [address] [facility] [id number] [address] [place] [address] Jan, [facility] [address] [facility] [id number] [address] [place] [address] Jan, Carpal tunnel syndrome, righ t upper limb G56.01 [facility] [address] [id number] [address] [place] [address] Jan, Bilateral otitis media, unsp ecified chronicity, unspecified otitis media type H66.93 [facility] [address] [id number] [address] [place] [address] Jan, Lumbago with sciatica, left side M54.42 [facility] [address] [facility] [id number] [address] [place] [address] Jan, [facility] [address] [id number] [address] [place] [address] Jan, [facility] [address] [id number] [address] [place] [address] Jan, Sore throat J02.9 ; Carpal t unnel syndrome, left upper limb G56.02 and Carpal tunnel syndrome, right upper limb G56.01 [facility] [address] [id number] [address] [place] [address] Dec, [facility] [address] [id number] [address] [place] [address] Dec, [facility] [address] [id number] [address] [place] [address] Dec, [facility] [address] [id number] [address] [place] [address] Dec, [facility] [address] [id number] [address] [place] [address] Dec, Lumbago with sciatica, left side M54.42 [facility] [address] [id number] [address] [place] [address] Dec, Anxiety F41.9 [facility] [address] [id number] [address] [place] [address] Dec, Tremor R25.1 ; Back pain wit h right-sided radiculopathy M54.10 and Headache R51 [facility] [address] [id number] [address] [place] [address] Dec, [facility] [address] [id number] [address] [place] [address] Dec, [facility] [address] [id number] [address] [place] [address] Dec, Lumbago with sciatica, left side M54.42 [facility] [address] [id number] [address] [place] [address] Dec, Dizziness R42 [facility] [address] [id number] [address] [place] [address] Nov, [facility] [address] [id number] [address] [place] [address] Nov, Lumbago with sciatica, left side M54.42 and Lumbago with sciatica, right side M54.41 [facility] [address] [id number] [address] [place] [address] Nov, Anxiety F41.9 [facility] [address] [id number] [address] [place] [address] Nov, [facility] [address] [id number] [address] [place] [address] Nov, Headache R51 [facility] [address] [facility] [id number] [address] [place] [address] October, Encounter for Depo-Provera c ontraception Z30.42 [facility] [address] [id number] [address] [place] [address] October, Anxiety F41.9 [facility] [address] [id number] [address] [place] [address] October, Anxiety F41.9 [facility] [address] [facility] [id number] [address] [place] [address] October, [facility] [address] [id number] [address] [place] [address] October, Vaginal yeast infection B37. 3 [facility] [address] [id number] [address] [place] [address] October, [facility] [address] [id number] [address] [place] [address] October, Headache R51 [facility] [address] [facility] [id number] [address] [place] [address] Sep, [facility] [address] [place] [id number] [address] [place] [address] Sep, [facility] [address] [facility] [id number] [place] [address] Sep, Headache R51 [facility] [address] [facility] [id number] [address] [place] [address] Sep, [facility] [address] [place] [id number] [place] [address] 05 Sep, 2015 Headache R51 [facility] [address] [place] [id number] [place] [address] 29 Aug, 2015 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 and Headache R51 [facility] [address] [place] [id number] [place] [address] 24 Aug, 2015 [facility] [address] [place] [id number] [place] [address] 23 Aug, 2015 Headache R51 ; Forgetfulness R68.[address] scan, head R93.0 [facility] [address] [address] 16 Aug, 2015 [facility] [address] [place] [id number] [place] [address] 15 Aug, 2015 [facility] [address] [place] [id number] [place] [address] 14 Aug, 2015 [facility] [address] [place] [id number] [address] [place] [address] 11 Aug, 2015 Headache R51 [facility] [address] [place] [id number] [address] [place] [address] 08 Aug, 2015 Abnormal computed tomography angiography of head R93.0 [facility] [address] [place] [id number] [address] [place] [address] 07 Aug, [address] of the head R93. 0 [facility] [address] [place] [id number] [address] [place] [address] Aug, Headache R51 ; Nausea R11.0 and Forgetfulness R68.89 [facility] [address] [address] Aug, Mental disor NOS oth dis F99 ; Unspecified mood [affective] disorder F39 and Anxiety disorder, unspecified F41.9 [facility] [address] [address] Aug, [facility] [address] [address] Aug, [facility] [address] [address] Aug, Encounter for Depo-Provera c ontraception Z30.42 [place] [address] [address] Jul, [place] [address] [address] Jul, Contusion of unspecified fin laura without damage to nail, subsequent encounter S60.00XD [place] [address] [address] May, [place] [address] [address] May, [facility] [id number] [place] [id number] May, Dental examination Z01.20 [place] [id number] [place] [address] May, Hematuria R31.9 [place] [address] [address] May, [facility] [address] [place] [id number] [address] [place] [address] May, Generalized anxiety disorder F41.1 [place] [address] [address] May, [facility] [address] [id number] [address] [place] [address] May, [facility] [address] [id number] [address] [place] [address] May, [facility] [address] [id number] [address] [place] [address] Mar, Upper respiratory tract infe ction, unspecified upper respiratory infection J06.9 ; Anaphylaxis, subsequent encounter T78.2XXD ; Encounter for Depo-Provera contraception Z30.42 and Encounter for surveillance of injectable contraceptive Z30.42 [facility] [address] [id number] [address] [place] [address] Mar, [facility] [address] [id number] [address] [place] [address] Mar, [facility] [address] [id number] [address] [place] [address] Mar, [facility] [address] [id number] [address] [place] [address] Mar, [facility] [address] [id number] [address] [place] [id number] Mar, [facility] [address] [id number] [address] [place] [address] Jan, [facility] [address] [id number] [address] [place] [address] Jan, [facility] [address] [id number] [address] [place] [address] Jan, [facility] [address] [id number] [address] [place] [address] Dec, [facility] [address] [id number] [address] [place] [id number] Dec, Dental examination V72.2 [facility] [address] [id number] [address] [place] [address] Dec, [facility] [address] [id number] [address] [place] [address] Nov, [facility] [address] [id number] [address] [place] [address] Nov, [facility] [address] [id number] [address] [place] [address] 15 Nov, 2014 Abdominal pain 789.00 and Na usea and vomiting 787.01 [facility] [address] [id number] [address] [place] [address] Nov, UTI (lower urinary tract inf ection) 599.0 and Abdominal pain 789.00 [facility] [address] [id number] [address] [place] [address] October, [facility] [address] [id number] [address] [place] [address] Sep, [facility] [address] [id number] [address] [place] [address] Sep, [facility] [address] [id number] [address] [place] [address] Aug, [facility] [address] [id number] [address] [place] [id number] Aug, [facility] [address] [id number] [address] [place] [address] Aug, [facility] [address] [id number] [address] [place] [address] Aug, [facility] [address] [id number] [address] [place] [address] Aug, [facility] [address] [id number] [address] [place] [id number] Aug, [facility] [address] [id number] [address] [place] [id number] Aug, [facility] [address] [id number] [address] [place] [address], [place] [id number] Aug, [facility] [address] [id number] [address] [place] [address], [place] [id number] Jul, [facility] [address] [id number] [address] [place] [address], [place] [id number] Jul, [facility] [address] [id number] [address] [place] [address], [place] [id number] Jul, [facility] [address] [id number] [address] [place] [address], [place] [id number] Jul, [facility] [address] [id number] [address] [place] [address], [place] [id number] Jul, [facility] [address] [id number] [address] [place] [address], [place] [id number] Jul, [facility] [address] [id number] [address] [place] [address], [place] [id number] Jul, [facility] [address] [id number] [address] [place] [address], [place] [id number] Jul, [facility] [address] [id number] [address] [place] [address], [place] [id number] Jul, [facility] [address] [id number] [address] [place] [address], [place] [id number] Jul, [facility] [address] [id number] [address] [place] [address], [place] [id number] Jul, [facility] [address] [id number] [address] [place] [address], [place] [id number] Jul, [facility] [address] [id number] [address] [place] [address], [place] [id number] May, [facility] [address] [id number] [address] [place] [address], [place] [address] May, [facility] [address] [id number] [address] [place] [address], [place] [id number] May, [facility] [address] [id number] [address] [place] [address], [place] [id number] May, [facility] [address] [id number] [address] [place] [address], [place] [id number] May, [facility] [address] [id number] [address] [place] [address], [place] [id number] May, [facility] [address] [id number] [address] [place] [address], [place] [address] May, [facility] [address] [id number] [address] [place] [address], [place] [address] May, [facility] [address] [id number] [address] [place] [address], [place] [id number] May, [facility] [address] [id number] [address] [place] [address], [place] [id number] May, [facility] [address] [id number] [address] [place] [address], [place] [id number] May, [facility] [address] [id number] [address] [place] [address], [place] [id number] May, [facility] [address] [id number] [address] [place] [address], [place] [address] May, [facility] [address] [id number] [address] [place] [address], [place] [address] May, [facility] [address] [id number] [address] [place] [address], [place] [address] May, [facility] [address] [id number] [address] [place] [address], [place] [address] May, [facility] [address] [id number] [address] [place] [address], [place] [address] May, [facility] [address] [id number] [address] [place] [address], [place] [address] May, [facility] [address] [id number] [address] [place] [address], [place] [address] May, [facility] [address] [id number] [address] [place] [address], [place] [address] May, [facility] [address] [id number] [address] [place] [address], [place] [address] May, [facility] [address] [id number] [address] [place] [address], [place] [address] May, [facility] [address] [id number] [address] [place] [address], [place] [address] May, [facility] [address] [id number] [address] [place] [address], [place] [address] May, [facility] [address] [id number] [address] [place] [address], [place] [address] May, [facility] [address] [id number] [address] [place] [address], [place] [address] May, [facility] [address] [id number] [address] [place] [address], [place] [address] May, [facility] [address] [id number] [address] [place] [address], [place] [address] May, [facility] [address] [id number] [address] [place] [address], [place] [address] May, [facility] [address] [id number] [address] [place] [address], [place] [address] May, [facility] [address] [id number] [address] [place] [address], [place] [address] May, [facility] [address] [id number] [address] [place] [address], [place] [address] May, [facility] [address] [id number] [address] [place] [address], [place] [address] May, [facility] [address] [id number] [address] [place] [address], [place] [address] May, [facility] [address] [id number] [address] [place] [address], [place] [address] May, [facility] [address] [id number] [address] [place] [address], [place] [address] Mar, [facility] [address] [id number] [address] [place] [address], [place] [address] Mar, [facility] [address] [id number] [address] [place] [address], [place] [address] Mar, [facility] [address] [id number] [address] [place] [address], [place] [address] Mar, [facility] [address] [id number] [address] [place] [address], [place] [address] Mar, [facility] [address] [id number] [address] [place] [address], [place] [address] Mar, [facility] [address] [id number] [address] [place] [address], [place] [address] Mar, [facility] [address] [id number] [address] [place] [address], [place] [address] Mar, [facility] [address] [id number] [address] [place] [address], [place] [address] 24 Mar, 2014 [facility] [address] [id number] [address] [place] [address], [place] [address] 24 Sep, 2013 [facility] [address] [id number] [address] [place] [address], [place] [address] 08 Sep, 2013 [facility] [address] [id number] [address] [place] [address], [place] [address] 08 Sep, 2013 [facility] [address] [id number] [address] [place] [address], [place] [address] 03 Sep, 2013 [facility] [address] [id number] [address] [place] [address], [place] [address] 03 Sep, 2013 [facility] [address] [id number] [facility] [place] [address] Jan, [facility] [address] [id number] [facility] [place] [address] Jan, [facility] [address] [id number] [facility] [place] [address] Jan, [facility] [address] [id number] [address] [place] [address], [place] [address] Jan, [facility] [address] [id number] [address] [place] [address], [place] [address] Jan, [facility] [address] [id number] [address] [place] [address], [place] [address] Jan, [facility] [address] [id number] [address] [place] [address], [place] [address] Jan, [facility] [address] [id number] [address] [place] [address], [place] [address] Jan, [facility] [address] [id number] [address] [place] [address], [place] [address] Jan, [facility] [address] [id number] [address] [place] [address], [place] [address] Dec, [facility] [address] [id number] [address] [place] [address], [place] [address] Dec, [facility] [address] [id number] [address] [place] [address], [place] [address] Dec, [facility] [address] [id number] [address] [place] [address], [place] [address] Dec, [facility] [address] [id number] [address] [place] [address], [place] [address] Dec, [facility] [address] [id number] [address] [place] [address], [place] [address] Dec, [facility] [address] [id number] [address] [place] [address], [place] [address] Dec, [facility] [address] [id number] [facility] [place] [address] Dec, [facility] [address] [id number] [address] [place] [address], [place] [address] Dec, [facility] [address] [id number] [address] [place] [address], [place] [address] October, [facility] [address] [id number] [address] [place] [address], [place] [address] October, [facility] [address] [id number] [address] [place] [address], [place] [address] Sep, [facility] [address] [id number] [address] [place] [address], [place] [address] Sep, [facility] [address] [id number] [address] [place] [address], [place] [address] Aug, [facility] [address] [id number] [address] [place] [address], [place] [address] Aug, [facility] [address] [id number] [address] [place] [address], [place] [address] Aug, [facility] [address] [id number] [address] [place] [address], [place] [address] Aug, [facility] [address] [id number] [address] [place] [address], [place] [address] Aug, [facility] [address] [id number] [address] [place] [address], [place] [address] Aug, [facility] [address] [id number] [address] [place] [address], [place] [address] 14 Aug, 2013 [facility] [address] [id number] [address] [place] [address], [place] [address] 07 Aug, 2013 [facility] [address] [id number] [address] [place] [address], [place] [address] 07 Aug, 2013 [facility] [address] [id number] [address] [place] [address], [place] [address] Aug, [facility] [address] [id number] [address] [place] [address], [place] [address] Aug, [facility] [address] [id number] [address] [place] [address], [place] [address] Jul, [facility] [address] [id number] [address] [place] [address], [place] [address] Jul, [facility] [address] [id number] [address] [place] [address], [place] [address] May, [facility] [address] [id number] [address] [place] [address], [place] [address] May, [facility] [address] [id number] [address] [place] [address], [place] [address] May, [facility] [address] [id number] [address] [place] [address], [place] [address] May, [facility] [address] [id number] [address] [place] [address], [place] [address] May, [facility] [address] [id number] [address] [place] [address], [place] [address] May, [facility] [address] [id number] [address] [place] [address], [place] [address] May, [facility] [address] [id number] [address] [place] [address], [place] [address] May, [facility] [address] [id number] [address] [place] [address], [place] [address] May, [facility] [address] [id number] [address] [place] [address], [place] [address] May, [facility] [address] [id number] [address] [place] [address], [place] [address] May, [facility] [address] [id number] [address] [place] [address], [place] [address] May, [facility] [address] [id number] [address] [place] [address], [place] [address] May, [facility] [address] [id number] [address] [place] [address], [place] [address] May, [facility] [address] [id number] [address] [place] [address], [place] [address] May, [facility] [address] [id number] [address] [place] [address], [place] [address] May, [facility] [address] [id number] [address] [place] [address], [place] [address] May, [facility] [address] [id number] [address] [place] [address], [place] [address] 18 May, 2013 [facility] [address] [id number] [address] [place] [address], [place] [address] 16 May, 2013 [facility] [address] [id number] [address] [place] [address] 16 May, 2013 [facility] [address] [id number] [address] [place] [address] May, [facility] [address] [id number] [address] [place] [address] May, [facility] [address] [id number] [address] [place] [address] May, [facility] [address] [id number] [address] [place] [address] May, [facility] [address] [id number] [address] [place] [address] May, [facility] [address] [id number] [address] [place] [address] May, [facility] [address] [id number] [address] [place] [address] May, [facility] [address] [id number] [address] [place] [address] May, [facility] [address] [id number] [address] [place] [address], [place] [address] May, [facility] [address] [id number] [address] [place] [address] May, [facility] [address] [id number] [address] [place] [address] Mar, [facility] [address] [id number] [address] [place] [address] Mar, [facility] [address] [id number] [address] [place] [address] Mar, [facility] [address] [id number] [address] [place] [address] Mar, [facility] [address] [id number] [address] [place] [address] 30 Mar, 2013 [facility] [address] [id number] [address] [place] [address] Mar, [facility] [address] [id number] [address] [place] [address] Mar, [facility] [address] [id number] [address] [place] [address] Mar, [facility] [address] [id number] [address] [place] [address] 29 Mar, 2013 [facility] [address] [id number] [address] [place] [address] Mar, [facility] [address] [id number] [address] [place] [address] Mar, [facility] [address] [id number] [address] [place] [address] Mar, [facility] [address] [id number] [address] [place] [address] 24 Mar, 2013 [facility] [address] [id number] [address] [place] [address], [place] [address] 23 Mar, 2013 [facility] [address] [id number] [address] [place] [address], [place] [address] 22 Mar, 2013 [facility] [address] [id number] [address] [place] [address], [place] [address] 21 Mar, 2013 [facility] [address] [id number] [address] [place] [address], [place] [address] 21 Mar, 2013 [facility] [address] [id number] [address] [place] [address], [place] [address] 18 Mar, 2013 [facility] [address] [id number] [address] [place] [address], [place] [address] 18 Mar, 2013 [facility] [address] [id number] [address] [place] [address], [place] [address] 18 Mar, 2013 [facility] [address] [id number] [address] [place] [address], [place] [address] 18 Mar, 2013 [facility] [address] [id number] [address] [place] [address], [place] [address] 14 Mar, 2013 [facility] [address] [id number] [address] [place] [address], [place] [address] 14 Mar, 2013 [facility] [address] [id number] [address] [place] [address], [place] [address] 10 Mar, 2013 [facility] [address] [id number] [address] [place] [address], [place] [address] 18 Mar, 2013 [facility] [address] [id number] [address] [place] [address], [place] [address] 12 Mar, 2013 [facility] [address] [id number] [address] [place] [address], [place] [address] 11 Mar, 2013 [facility] [address] [id number] [address] [place] [address], [place] [address] Jan, [facility] [address] [id number] [address] [place] [address] [address] October, [facility] [address] [id number] [address] [place] [address], [place] [address] Sep, [facility] [address] [id number] [address] [place] [address], [place] [address] Sep, [facility] [address] [id number] [address] [place] [address], [place] [address] Aug, [facility] [address] [id number] [address] [place] [address], [place] [address] Aug, [facility] [address] [id number] [address] [place] [address], [place] [address] Aug, [facility] [address] [id number] [address] [place] [address], [place] [address] Jul, [facility] [address] [id number] [address] [place] [address], [place] [address] May, [facility] [address] [id number] [address] [place] [address], [place] [address] May, [facility] [address] [id number] [address] [place] [address], [place] [address] 18 May, 2012 [facility] [address] [id number] [address] [place] [address], [place] [address] 18 May, 2012 [facility] [address] [id number] [address] [place] [address], [place] [address] 19 Mar, 2012 [facility] [address] [id number] [address] [place] [address], [place] [address] 19 Mar, 2012 [facility] [address] [id number] [address] [place] [address], [place] [address] 16 Mar, 2012 [facility] [address] [id number] [address] [place] [address], [place] [address] 25 Mar, 2012 [facility] [address] [id number] [address] [place] [address], [place] [address] 19 Mar, 2012 [facility] [address] [id number] [address] [place] [address], [place] [address] 13 Mar, 2011 [facility] [address] [id number] [address] [place] [address], [place] [address] 07 Mar, 2011 [facility] [address] [id number] [address] [place] [address], [place] [address] 30 Jan, 2012 [facility] [address] [id number] [address] [place] [address], [place] [address] Jan, 2011 [facility] [address] [id number] [address] [place] [address], [place] [address] Jan, 2011 [facility] [address] [id number] [address] [place] [address], [place] [address] 14 Jan, 2011 [facility] [address] [id number] [address] [place] [address], [place] [address] Jan, [facility] [address] [id number] [address] [place] [address], [place] [address] Jan, [facility] [address] [id number] [address] [place] [address], [place] [address] Jan, [facility] [address] [id number] [address] [place] [address], [place] [address] Jan, [facility] [address] [id number] [address] [place] [address], [place] [address] Jan, [facility] [address] [id number] [address] [place] [address], [place] [address] Jan, [facility] [address] [id number] [address] [place] [address], [place] [address] Jan, [facility] [address] [id number] [address] [place] [address], [place] [address] Jan, [facility] [address] [id number] [address] [place] [address], [place] [address] Jan, [facility] [address] [id number] [address] [place] [address], [place] [address] Jan, [facility] [address] [id number] [address] [place] [address], [place] [address] Jan, [facility] [address] [id number] [address] [place] [address], [place] [address] Jan, [facility] [address] [id number] [address] [place] [address], [place] [address] Dec, [facility] [address] [id number] [address] [place] [address], [place] [address] Dec, [facility] [address] [id number] [address] [place] [address], [place] [address] Nov, [facility] [address] [id number] [address] [place] [address], [place] [address] Nov, [facility] [address] [id number] [address] [place] [address], [place] [address] October, [facility] [address] [id number] [address] [place] [address], [place] [address] October, [facility] [address] [id number] [address] [place] [address], [place] [address] October, [facility] [address] [id number] [address] [place] [address], [place] [address] Sep, [facility] [address] [id number] [address] [place] [address], [place] [address] Sep, [facility] [address] [id number] [address] [place] [address], [place] [address] Aug, [facility] [address] [id number] [address] [place] [address], [place] [address] Aug, [facility] [address] [id number] [address] [place] [address], [place] [address]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
--- OUTSIDE RECORDS SUMMARY | 2019-12-30 23:29 | XMS REPORT ---
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 [place] [id number] Mar, [facility] [address] [id number] [address] [place] [address] Jan, [facility] [address] [facility] [id number] [address] [place] [address] Jan, Encounter for Depo-Provera c ontraception Z30.42 [facility] [address] [facility] [id number] [address] [place] [id number] Jan, [facility] [address] [id number] [address] [place] [address] Jan, [facility] [address] [facility] [id number] [address] [place] [id number] Jan, [facility] [address] [facility] [id number] [address] [place] [address] Jan, Carpal tunnel syndrome, righ t upper limb G56.01 [facility] [address] [id number] [address] [place] [address] Jan, Bilateral otitis media, unsp ecified chronicity, unspecified otitis media type H66.93 [facility] [address] [id number] [address] [place] [address] Jan, Lumbago with sciatica, left side M54.42 [facility] [address] [facility] [id number] [address] [place] [address] Jan, [facility] [address] [id number] [address] [place] [id number] Jan, [facility] [address] [id number] [address] [place] [id number] Jan, Sore throat J02.9 ; Carpal t unnel syndrome, left upper limb G56.02 and Carpal tunnel syndrome, right upper limb G56.01 [facility] [address] [id number] [address] [place] [id number] Dec, [facility] [address] [id number] [address] [place] [id number] Dec, [facility] [address] [id number] [address] [place] [id number] Dec, [facility] [address] [id number] [address] [place] [address] Dec, [facility] [address] [id number] [address] [place] [address] Dec, Lumbago with sciatica, left side M54.42 [facility] [address] [id number] [address] [place] [address] Dec, Anxiety F41.9 [facility] [address] [id number] [address] [place] [address] Dec, Tremor R25.1 ; Back pain wit h right-sided radiculopathy M54.10 and Headache R51 [facility] [address] [id number] [address] [place] [id number] Dec, [facility] [address] [id number] [address] [place] [id number] Dec, [facility] [address] [id number] [address] [place] [address] Dec, Lumbago with sciatica, left side M54.42 [facility] [address] [id number] [address] [place] [address] Dec, Dizziness R42 [facility] [address] [id number] [address] [place] [id number] Nov, [facility] [address] [id number] [address] [place] [id number] Nov, Lumbago with sciatica, left side M54.42 and Lumbago with sciatica, right side M54.41 [facility] [address] [id number] [address] [place] [id number] Nov, Anxiety F41.9 [facility] [address] [id number] [address] [place] [address] Nov, [facility] [address] [id number] [address] [place] [id number] Nov, Headache R51 [facility] [address] [facility] [id number] [address] [place] [id number] October, Encounter for Depo-Provera c ontraception Z30.42 [facility] [address] [id number] [address] [place] [address] October, Anxiety F41.9 [facility] [address] [id number] [address] [place] [id number] October, Anxiety F41.9 [facility] [address] [facility] [id number] [address] [place] [id number] October, [facility] [address] [id number] [address] [place] [address] October, Vaginal yeast infection B37. 3 [facility] [address] [id number] [address] [place] [id number] October, [facility] [address] [id number] [address] [place] [address] October, Headache R51 [facility] [address] [facility] [id number] [address] [place] [id number] Sep, [facility] [address] [place] [id number] [address] [place] [address] Sep, [facility] [address] [facility] [id number] [place] [id number] Sep, Headache R51 [facility] [address] [facility] [id number] [address] [place] [id number] Sep, [facility] [address] [place] [id number] [place] [id number] 05 Sep, 2015 Headache R51 [facility] [address] [place] [id number] [place] [id number] 29 Aug, 2015 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 and Headache R51 [facility] [address] [place] [id number] [place] [id number] 24 Aug, 2015 [facility] [address] [place] [id number] [place] [address] 23 Aug, 2015 Headache R51 ; Forgetfulness R68.[address] scan, head R93.0 [facility] [address] [id number] 16 Aug, 2015 [facility] [address] [place] [id number] [place] [address] 15 Aug, 2015 [facility] [address] [place] [id number] [place] [id number] 14 Aug, 2015 [facility] [address] [place] [id number] [address] [place] [id number] 11 Aug, 2015 Headache R51 [facility] [address] [place] [id number] [address] [place] [id number] 08 Aug, 2015 Abnormal computed tomography angiography of head R93.0 [facility] [address] [place] [id number] [address] [place] [id number] 07 Aug, [address] of the head R93. 0 [facility] [address] [place] [id number] [address] [place] [address] Aug, Headache R51 ; Nausea R11.0 and Forgetfulness R68.89 [facility] [address] [address] Aug, Mental disor NOS oth dis F99 ; Unspecified mood [affective] disorder F39 and Anxiety disorder, unspecified F41.9 [facility] [address] [id number] Aug, [facility] [address] [address] Aug, [facility] [address] [address] Aug, Encounter for Depo-Provera c ontraception Z30.42 [place] [address] [address] Jul, [place] [address] [id number] Jul, Contusion of unspecified fin laura without damage to nail, subsequent encounter S60.00XD [place] [address] [address] May, [place] [address] [address] May, [facility] [id number] [place] [id number] May, Dental examination Z01.20 [place] [id number] [place] [address] May, Hematuria R31.9 [place] [address] [address] May, [facility] [address] [place] [id number] [address] [place] [id number] May, Generalized anxiety disorder F41.1 [place] [address] [address] May, [facility] [address] [id number] [address] [place] [address] May, [facility] [address] [id number] [address] [place] [address] May, [facility] [address] [id number] [address] [place] [address] Mar, Upper respiratory tract infe ction, unspecified upper respiratory infection J06.9 ; Anaphylaxis, subsequent encounter T78.2XXD ; Encounter for Depo-Provera contraception Z30.42 and Encounter for surveillance of injectable contraceptive Z30.42 [facility] [address] [id number] [address] [place] [id number] Mar, [facility] [address] [id number] [address] [place] [id number] Mar, [facility] [address] [id number] [address] [place] [address] Mar, [facility] [address] [id number] [address] [place] [id number] Mar, [facility] [address] [id number] [address] [place] [id number] Mar, [facility] [address] [id number] [address] [place] [id number] Jan, [facility] [address] [id number] [address] [place] [id number] Jan, [facility] [address] [id number] [address] [place] [id number] Jan, [facility] [address] [id number] [address] [place] [id number] Dec, [facility] [address] [id number] [address] [place] [id number] Dec, Dental examination V72.2 [facility] [address] [id number] [address] [place] [id number] Dec, [facility] [address] [id number] [address] [place] [address] Nov, [facility] [address] [id number] [address] [place] [address] Nov, [facility] [address] [id number] [address] [place] [id number] 15 Nov, 2014 Abdominal pain 789.00 and Na usea and vomiting 787.01 [facility] [address] [id number] [address] [place] [address] Nov, UTI (lower urinary tract inf ection) 599.0 and Abdominal pain 789.00 [facility] [address] [id number] [address] [place] [address] October, [facility] [address] [id number] [address] [place] [address] Sep, [facility] [address] [id number] [address] [place] [id number] Sep, [facility] [address] [id number] [address] [place] [id number] Aug, [facility] [address] [id number] [address] [place] [address] Aug, [facility] [address] [id number] [address] [place] [id number] Aug, [facility] [address] [id number] [address] [place] [id number] Aug, [facility] [address] [id number] [address] [place] [id number] Aug, [facility] [address] [id number] [address] [place] [id number] Aug, [facility] [address] [id number] [address] [place] [id number] Aug, [facility] [address] [id number] [address] [place] [address], [place] [address] Aug, [facility] [address] [id number] [address] [place] [address], [place] [address] Jul, [facility] [address] [id number] [address] [place] [address], [place] [address] Jul, [facility] [address] [id number] [address] [place] [address], [place] [address] Jul, [facility] [address] [id number] [address] [place] [address], [place] [address] Jul, [facility] [address] [id number] [address] [place] [address], [place] [address] Jul, [facility] [address] [id number] [address] [place] [address], [place] [address] Jul, [facility] [address] [id number] [address] [place] [address], [place] [address] Jul, [facility] [address] [id number] [address] [place] [address], [place] [address] Jul, [facility] [address] [id number] [address] [place] [address], [place] [address] Jul, [facility] [address] [id number] [address] [place] [address], [place] [address] Jul, [facility] [address] [id number] [address] [place] [address], [place] [address] Jul, [facility] [address] [id number] [address] [place] [address], [place] [address] Jul, [facility] [address] [id number] [address] [place] [address], [place] [address] May, [facility] [address] [id number] [address] [place] [address], [place] [address] May, [facility] [address] [id number] [address] [place] [address], [place] [address] May, [facility] [address] [id number] [address] [place] [address], [place] [address] May, [facility] [address] [id number] [address] [place] [address], [place] [address] May, [facility] [address] [id number] [address] [place] [address], [place] [address] May, [facility] [address] [id number] [address] [place] [address], [place] [address] May, [facility] [address] [id number] [address] [place] [address], [place] [address] May, [facility] [address] [id number] [address] [place] [address], [place] [address] May, [facility] [address] [id number] [address] [place] [address], [place] [address] May, [facility] [address] [id number] [address] [place] [address], [place] [address] May, [facility] [address] [id number] [address] [place] [address], [place] [address] May, [facility] [address] [id number] [address] [place] [address], [place] [address] May, [facility] [address] [id number] [address] [place] [address], [place] [address] May, [facility] [address] [id number] [address] [place] [address], [place] [address] May, [facility] [address] [id number] [address] [place] [address], [place] [address] May, [facility] [address] [id number] [address] [place] [address], [place] [address] May, [facility] [address] [id number] [address] [place] [address], [place] [address] May, [facility] [address] [id number] [address] [place] [address], [place] [address] May, [facility] [address] [id number] [address] [place] [address], [place] [address] May, [facility] [address] [id number] [address] [place] [address], [place] [address] May, [facility] [address] [id number] [address] [place] [address], [place] [address] May, [facility] [address] [id number] [address] [place] [address], [place] [address] May, [facility] [address] [id number] [address] [place] [address], [place] [address] May, [facility] [address] [id number] [address] [place] [address], [place] [address] May, [facility] [address] [id number] [address] [place] [address], [place] [address] May, [facility] [address] [id number] [address] [place] [address], [place] [address] May, [facility] [address] [id number] [address] [place] [address], [place] [address] May, [facility] [address] [id number] [address] [place] [address], [place] [address] May, [facility] [address] [id number] [address] [place] [address], [place] [address] May, [facility] [address] [id number] [address] [place] [address], [place] [address] May, [facility] [address] [id number] [address] [place] [address], [place] [address] May, [facility] [address] [id number] [address] [place] [address], [place] [address] May, [facility] [address] [id number] [address] [place] [address], [place] [address] May, [facility] [address] [id number] [address] [place] [address], [place] [address] May, [facility] [address] [id number] [address] [place] [address], [place] [address] Mar, [facility] [address] [id number] [address] [place] [address], [place] [address] Mar, [facility] [address] [id number] [address] [place] [address], [place] [address] Mar, [facility] [address] [id number] [address] [place] [address], [place] [address] Mar, [facility] [address] [id number] [address] [place] [address], [place] [address] Mar, [facility] [address] [id number] [address] [place] [address], [place] [address] Mar, [facility] [address] [id number] [address] [place] [address], [place] [address] Mar, [facility] [address] [id number] [address] [place] [address], [place] [address] Mar, [facility] [address] [id number] [address] [place] [address], [place] [address] 24 Mar, 2014 [facility] [address] [id number] [address] [place] [address], [place] [address] 24 Sep, 2013 [facility] [address] [id number] [address] [place] [address], [place] [address] 08 Sep, 2013 [facility] [address] [id number] [address] [place] [address], [place] [address] 08 Sep, 2013 [facility] [address] [id number] [address] [place] [address], [place] [address] 03 Sep, 2013 [facility] [address] [id number] [address] [place] [address], [place] [address] 03 Sep, 2013 [facility] [address] [id number] [facility] [place] [address] Jan, [facility] [address] [id number] [facility] [place] [address] Jan, [facility] [address] [id number] [facility] [place] [address] Jan, [facility] [address] [id number] [address] [place] [address], [place] [address] Jan, [facility] [address] [id number] [address] [place] [address], [place] [address] Jan, [facility] [address] [id number] [address] [place] [address], [place] [address] Jan, [facility] [address] [id number] [address] [place] [address], [place] [address] Jan, [facility] [address] [id number] [address] [place] [address], [place] [address] Jan, [facility] [address] [id number] [address] [place] [address], [place] [address] Jan, [facility] [address] [id number] [address] [place] [address], [place] [address] Dec, [facility] [address] [id number] [address] [place] [address], [place] [address] Dec, [facility] [address] [id number] [address] [place] [address], [place] [address] Dec, [facility] [address] [id number] [address] [place] [address], [place] [address] Dec, [facility] [address] [id number] [address] [place] [address], [place] [address] Dec, [facility] [address] [id number] [address] [place] [address], [place] [address] Dec, [facility] [address] [id number] [address] [place] [address], [place] [address] Dec, [facility] [address] [id number] [facility] [place] [address] Dec, [facility] [address] [id number] [address] [place] [address], [place] [address] Dec, [facility] [address] [id number] [address] [place] [address], [place] [address] October, [facility] [address] [id number] [address] [place] [address], [place] [address] October, [facility] [address] [id number] [address] [place] [address], [place] [address] Sep, [facility] [address] [id number] [address] [place] [address], [place] [address] Sep, [facility] [address] [id number] [address] [place] [address], [place] [address] Aug, [facility] [address] [id number] [address] [place] [address], [place] [address] Aug, [facility] [address] [id number] [address] [place] [address], [place] [address] Aug, [facility] [address] [id number] [address] [place] [address], [place] [address] Aug, [facility] [address] [id number] [address] [place] [address], [place] [address] Aug, [facility] [address] [id number] [address] [place] [address], [place] [address] Aug, [facility] [address] [id number] [address] [place] [address], [place] [address] 14 Aug, 2013 [facility] [address] [id number] [address] [place] [address], [place] [address] 07 Aug, 2013 [facility] [address] [id number] [address] [place] [address], [place] [address] 07 Aug, 2013 [facility] [address] [id number] [address] [place] [address], [place] [address] Aug, [facility] [place] [address] [id number] [address] [place] [address], [place] [address] Aug, [facility] [place] [address] [id number] [address] [place] [address], [place] [address] Jul, [facility] [place] [address] [id number] [address] [place] [address], [place] [address] Jul, [facility] [place] [address] [id number] [address] [place] [address], [place] [address] May, [facility] [place] [address] [id number] [address] [place] [address], [place] [address] May, [facility] [address] [id number] [address] [place] [address], [place] [address] May, [facility] [place] [address] [id number] [address] [place] [address], [place] [address] May, [facility] [address] [id number] [address] [place] [address], [place] [address] May, [facility] [place] [address] [id number] [address] [place] [address], [place] [address] May, [facility] [address] [id number] [address] [place] [address], [place] [address] May, [facility] [address] [id number] [address] [place] [address], [place] [address] May, [facility] [address] [id number] [address] [place] [address], [place] [address] May, [facility] [address] [id number] [address] [place] [address], [place] [address] May, [facility] [address] [id number] [address] [place] [address], [place] [address] May, [facility] [place] [address] [id number] [address] [place] [address], [place] [address] May, [facility] [address] [id number] [address] [place] [address], [place] [address] May, [facility] [address] [id number] [address] [place] [address], [place] [address] May, [facility] [address] [id number] [address] [place] [address], [place] [address] May, [facility] [address] [id number] [address] [place] [address], [place] [address] May, [facility] [address] [id number] [address] [place] [address], [place] [address] May, [facility] [address] [id number] [address] [place] [address], [place] [address] 18 May, 2013 [facility] [address] [id number] [address] [place] [address], [place] [address] 16 May, 2013 [facility] [address] [id number] [address] [place] [address] 16 May, 2013 [facility] [address] [id number] [address] [place] [address] May, [facility] [address] [id number] [address] [place] [address] May, [facility] [address] [id number] [address] [place] [address] May, [facility] [address] [id number] [address] [place] [address] May, [facility] [address] [id number] [address] [place] [address] May, [facility] [address] [id number] [address] [place] [address] May, [facility] [address] [id number] [address] [place] [address] May, [facility] [address] [id number] [address] [place] [address] May, [facility] [address] [id number] [address] [place] [address], [place] [address] May, [facility] [address] [id number] [address] [place] [address] May, [facility] [address] [id number] [address] [place] [address] Mar, [facility] [address] [id number] [address] [place] [address] Mar, [facility] [address] [id number] [address] [place] [address] Mar, [facility] [address] [id number] [address] [place] [address] Mar, [facility] [address] [id number] [address] [place] [address] 30 Mar, 2013 [facility] [address] [id number] [address] [place] [address] Mar, [facility] [address] [id number] [address] [place] [address] Mar, [facility] [address] [id number] [address] [place] [address] Mar, [facility] [address] [id number] [address] [place] [address] 29 Mar, 2013 [facility] [address] [id number] [address] [place] [address] Mar, [facility] [address] [id number] [address] [place] [address] Mar, [facility] [address] [id number] [address] [place] [address] Mar, [facility] [address] [id number] [address] [place] [address] 24 Mar, 2013 [facility] [address] [id number] [address] [place] [address], [place] [address] 23 Mar, 2013 [facility] [address] [id number] [address] [place] [address], [place] [address] 22 Mar, 2013 [facility] [address] [id number] [address] [place] [address], [place] [address] 21 Mar, 2013 [facility] [address] [id number] [address] [place] [address], [place] [address] 21 Mar, 2013 [facility] [address] [id number] [address] [place] [address], [place] [address] 18 Mar, 2013 [facility] [address] [id number] [address] [place] [address], [place] [address] 18 Mar, 2013 [facility] [address] [id number] [address] [place] [address], [place] [address] 18 Mar, 2013 [facility] [address] [id number] [address] [place] [address], [place] [address] 18 Mar, 2013 [facility] [address] [id number] [address] [place] [address], [place] [address] 14 Mar, 2013 [facility] [address] [id number] [address] [place] [address], [place] [address] 14 Mar, 2013 [facility] [address] [id number] [address] [place] [address], [place] [address] 10 Mar, 2013 [facility] [address] [id number] [address] [place] [address], [place] [address] 18 Mar, 2013 [facility] [address] [id number] [address] [place] [address], [place] [address] 12 Mar, 2013 [facility] [address] [id number] [address] [place] [address], [place] [address] 11 Mar, 2013 [facility] [address] [id number] [address] [place] [address], [place] [address] Jan, [facility] [address] [id number] [address] [place] [address] [address] October, [facility] [address] [id number] [address] [place] [address], [place] [address] Sep, [facility] [address] [id number] [address] [place] [address], [place] [address] Sep, [facility] [address] [id number] [address] [place] [address], [place] [address] Aug, [facility] [address] [id number] [address] [place] [address], [place] [address] Aug, [facility] [address] [id number] [address] [place] [address], [place] [address] Aug, [facility] [address] [id number] [address] [place] [address], [place] [address] Jul, [facility] [address] [id number] [address] [place] [address], [place] [address] May, [facility] [address] [id number] [address] [place] [address], [place] [address] May, [facility] [address] [id number] [address] [place] [address], [place] [address] 18 May, 2012 [facility] [address] [id number] [address] [place] [address], [place] [address] 18 May, 2012 [facility] [address] [id number] [address] [place] [address], [place] [address] 19 Mar, 2012 [facility] [address] [id number] [address] [place] [address], [place] [address] 19 Mar, 2012 [facility] [address] [id number] [address] [place] [address], [place] [address] 16 Mar, 2012 [facility] [address] [id number] [address] [place] [address], [place] [address] 25 Mar, 2012 [facility] [address] [id number] [address] [place] [address], [place] [address] 19 Mar, 2012 [facility] [address] [id number] [address] [place] [address], [place] [address] 13 Mar, 2011 [facility] [place] [address] [id number] [address] [place] [address], [place] [address] 07 Mar, 2011 [facility] [address] [id number] [address] [place] [address], [place] [address] 30 Jan, 2012 [facility] [place] [address] [id number] [address] [place] [address], [place] [address] Jan, 2011 [facility] [address] [id number] [address] [place] [address], [place] [address] Jan, 2011 [facility] [address] [id number] [address] [place] [address], [place] [address] 14 Jan, 2011 [facility] [place] [address] [id number] [address] [place] [address], [place] [address] Jan, [facility] [place] [address] [id number] [address] [place] [address], [place] [address] Jan, [facility] [place] [address] [id number] [address] [place] [address], [place] [address] Jan, [facility] [place] [address] [id number] [address] [place] [address], [place] [address] Jan, [facility] [address] [id number] [address] [place] [address], [place] [address] Jan, [facility] [address] [id number] [address] [place] [address], [place] [address] Jan, [facility] [address] [id number] [address] [place] [address], [place] [address] Jan, [facility] [address] [id number] [address] [place] [address], [place] [address] Jan, [facility] [address] [id number] [address] [place] [address], [place] [address] Jan, [facility] [address] [id number] [address] [place] [address], [place] [address] Jan, [facility] [address] [id number] [address] [place] [address], [place] [address] Jan, [facility] [address] [id number] [address] [place] [address], [place] [address] Jan, [facility] [address] [id number] [address] [place] [address], [place] [address] Dec, [facility] [address] [id number] [address] [place] [address], [place] [address] Dec, [facility] [address] [id number] [address] [place] [address], [place] [address] Nov, [facility] [address] [id number] [address] [place] [address], [place] [address] Nov, [facility] [address] [id number] [address] [place] [address], [place] [address] October, [facility] [address] [id number] [address] [place] [address], [place] [address] October, [facility] [address] [id number] [address] [place] [address], [place] [address] October, [facility] [address] [id number] [address] [place] [address], [place] [address] Sep, [facility] [address] [id number] [address] [place] [address], [place] [address] Sep, [facility] [address] [id number] [address] [place] [address], [place] [address] Aug, [facility] [address] [id number] [address] [place] [address], [place] [address] Aug, [facility] [address] [id number] [address] [place] [address], [place] [address] Aug, [facility] [address] [id number] [address] [place] [address], [place] [address] Aug, [facility] [address] [id number] [address] [place] [address] Aug, [facility] [address] [id number] [address] [place] [address], [place] [address] 14 Aug, 2011 [facility] [address] [id number] [address] [place] [address], [place] [address] 07 Aug, 2011 [facility] [address] [id number] [address] [place] [address], [place] [address] Jul, [facility] [address] [id number] [address] [place] [address], [place] [address] Jul, [facility] [address] [id number] [address] [place] [address], [place] [address] Jul, [facility] [address] [id number] [address] [place] [address], [place] [address] May, [facility] [address] [id number] [address] [place] [address], [place] [address] May, [facility] [address] [id number] [address] [place] [address], [place] [address] May, [facility] [address] [id number] [address] [place] [address], [place] [address] May, [facility] [address] [id number] [address] [place] [address], [place] [address] May, [facility] [address] [id number] [address] [place] [address], [place] [address] May, [facility] [address] [id number] [address] [place] [address], [place] [address] May, [facility] [address] [id number] [address] [place] [address], [place] [address] Mar, [facility] [address] [id number] [address] [place] [address], [place] [address] Mar, [facility] [address] [id number] [address] [place] [address], [place] [address] Mar, [facility] [address] [id number] [address] [place] [address] Mar, [facility] [address] [id number] [address] [place] [address] Mar, [facility] [address] [id number] [address] [place] [id number] Mar, [facility] [address] [id number] [address] [place] [address] Jan, [facility] [address] [id number] [address] [place] [address] May, [facility] [address] [id number] [address] [place] [address] May, [facility] [address] [id number] [address] [place] [address] May, [facility] [address] [id number] [address] [place] [address] May, [facility] [address] [id number] [address] [place] [address] May, [facility] [address] [id number] [address] [place] [id number] May, [facility] [address] [id number] [address] [place] [address] Mar, [facility] [address] [id number] [address] [place] [address] Sep, IMMUNIZATIONS No Known Immunizations SOCIAL HISTORY Never Assessed REASON FOR VISIT PLAN OF CARE VITAL SIGNS MEDICATIONS Unknown [...]
--- OUTSIDE RECORDS SUMMARY | 2019-12-30 23:29 | XMS REPORT ---
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 Dec, Tremor R25.1 ; Back pain wit h right-sided radiculopathy M54.10 and Headache R51 [facility] [address] [id number] [address] [place] [address] Dec, [facility] [address] [id number] [address] [place] [address] Dec, [facility] [address] [id number] [address] [place] [address] Dec, Lumbago with sciatica, left side M54.42 [facility] [address] [id number] [address] [place] [address] Dec, Dizziness R42 [facility] [address] [id number] [address] [place] [address] Nov, [facility] [address] [id number] [address] [place] [address] Nov, Lumbago with sciatica, left side M54.42 and Lumbago with sciatica, right side M54.41 [facility] [address] [id number] [address] [place] [address] Nov, Anxiety F41.9 [facility] [address] [id number] [address] [place] [address] Nov, [facility] [address] [id number] [address] [place] [address] Nov, Headache R51 [facility] [address] [facility] [id number] [address] [place] [address] October, Encounter for Depo-Provera c ontraception Z30.42 [facility] [address] [facility] [id number] [address] [place] [address] October, Anxiety F41.9 [facility] [address] [facility] [id number] [address] [place] [address] October, Anxiety F41.9 [facility] [address] [facility] [id number] [address] [place] [address] October, [facility] [address] [facility] [id number] [address] [place] [address] October, Vaginal yeast infection B37. 3 [facility] [address] [facility] [id number] [address] [place] [address] October, [facility] [address] [place] [id number] [address] [place] [address] October, Headache R51 [facility] [address] [facility] [id number] [address] [place] [id number] Sep, [facility] [address] [place] [id number] [address] [place] [phone] Sep, [facility] [address] [place] [id number] [address] [place] [address] Sep, Headache R51 [facility] [address] [facility] [id number] [address] [place] [address] Sep, [facility] [address] [place] [id number] [address] [place] [address] Sep, Headache R51 [facility] [address] [facility] [id number] [address] [place] [address] Aug, 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 and Headache R51 [facility] [address] [facility] [id number] [address] [place] [address] Aug, [facility] [address] [facility] [id number] [address] [place] [address] Aug, Headache R51 ; Forgetfulness R68.[address] scan, head R93.0 [facility] [address] [facility] [id number] [address] [place] [address] 16 Aug, 2015 [facility] [address] [facility] [id number] [address] [place] [address] 15 Aug, 2015 [facility] [address] [place] [id number] [address] [place] [address] 14 Aug, 2015 [facility] [address] [place] [id number] [place] [address] Aug, Headache R51 [place] [address] [place] [id number] [place] [address] 08 Aug, 2015 Abnormal computed tomography angiography of head R93.0 [place] [address] [place] [id number] [place] [address] [address], [address] of the head R93. 0 [facility] [address] [place] [id number] [place] [address] Aug, Headache R51 ; Nausea R11.0 and Forgetfulness R68.89 [place] [address] [place] [id number] [address] [place] [address] Aug, Mental disor NOS oth dis F99 ; Unspecified mood [affective] disorder F39 and Anxiety disorder, unspecified F41.9 [facility] [address] [place] [id number] [address] [place] [address] Aug, [place] [address] [address] Aug, [place] [address] [place] [id number] [address] [place] [address] Aug, Encounter for Depo-Provera c ontraception Z30.42 [place] [address] [place] [id number] [address] [place] [address] Jul, [facility] [address] [facility] [id number] [address] [place] [address] Jul, Contusion of unspecified fin laura without damage to nail, subsequent encounter S60.00XD [facility] [address] [place] [id number] [address] [place] [address] May, [facility] [address] [place] [id number] [address] [place] [phone] May, [facility] [address] [place] [id number] [address] [place] [id number] May, Dental examination Z01.20 [facility] [address] [place] [address] 15 May, 2015 Hematuria R31.9 [facility] [address] [place] [id number] [place] [address] May, [facility] [address] [place] [id number] [place] [address] May, Generalized anxiety disorder F41.1 [facility] [address] [place] [id number] [place] [address] 09 May, 2015 [facility] [address] [place] [address] May, [facility] [address] [place] [address] May, [facility] [address] [place] [id number] [address] [place] [address] Mar, Upper respiratory tract infe ction, unspecified upper respiratory infection J06.9 ; Anaphylaxis, subsequent encounter T78.2XXD ; Encounter for Depo-Provera contraception Z30.42 and Encounter for surveillance of injectable contraceptive Z30.42 [facility] [address] [place] [id number] [address] [place] [address] Mar, [facility] [address] [place] [id number] [address] [place] [address] Mar, [facility] [address] [id number] [address] [place] [address] Mar, [facility] [address] [id number] [address] [place] [address] Mar, [facility] [address] [id number] [address] [place] [address] Mar, [facility] [address] [id number] [address] [place] [address] Jan, [facility] [address] [id number] [address] [place] [address] Jan, [facility] [address] [id number] [address] [place] [address] Jan, [facility] [address] [id number] [address] [place] [address] Dec, [facility] [address] [id number] [address] [place] [id number] Dec, Dental examination V72.2 [facility] [address] [id number] [address] [place] [address] Dec, [facility] [address] [id number] [address] [place] [address] Nov, [facility] [address] [id number] [address] [place] [address] Nov, [facility] [address] [id number] [address] [place] [address] Nov, Abdominal pain 789.00 and Na usea and vomiting 787.01 [facility] [address] [id number] [address] [place] [address] Nov, UTI (lower urinary tract inf ection) 599.0 and Abdominal pain 789.00 [facility] [address] [id number] [address] [place] [address] October, [facility] [address] [id number] [address] [place] [address], [place] [address] Sep, [facility] [address] [id number] [address] [place] [address], [place] [address] Sep, [facility] [address] [id number] [address] [place] [address], [place] [address] Aug, [facility] [address] [id number] [address] [place] [address], [place] [address] Aug, [facility] [address] [id number] [address] [place] [address], [place] [address] Aug, [facility] [address] [id number] [address] [place] [address], [place] [address] Aug, [facility] [address] [id number] [address] [place] [address], [place] [address] Aug, [facility] [address] [id number] [address] [place] [address], [place] [address] Aug, [facility] [address] [id number] [address] [place] [address], [place] [address] Aug, [facility] [address] [id number] [address] [place] [address], [place] [address] Aug, [facility] [address] [id number] [address] [place] [address], [place] [address] Jul, [facility] [address] [id number] [address] [place] [address] Jul, [facility] [address] [id number] [address] [place] [address], [place] [address] Jul, [facility] [address] [id number] [address] [place] [address], [place] [address] Jul, [facility] [address] [id number] [address] [place] [phone] Jul, [facility] [address] [id number] [address] [place] [address], [place] [address] Jul, [facility] [address] [id number] [address] [place] [address], [place] [address] Jul, [facility] [address] [id number] [address] [place] [address], [place] [address] Jul, [facility] [address] [id number] [address] [place] [address], [place] [address] Jul, [facility] [address] [id number] [address] [place] [address], [place] [address] Jul, [facility] [address] [id number] [address] [place] [address], [place] [address] Jul, [facility] [address] [id number] [address] [place] [address], [place] [address] Jul, [facility] [address] [id number] [address] [place] [address], [place] [address] May, [facility] [address] [id number] [address] [place] [address], [place] [address] May, [facility] [address] [id number] [address] [place] [address], [place] [address] May, [facility] [address] [id number] [address] [place] [address], [place] [address] May, [facility] [address] [id number] [address] [place] [address], [place] [address] May, [facility] [address] [id number] [address] [place] [address], [place] [address] May, [facility] [address] [id number] [address] [place] [address], [place] [address] May, [facility] [address] [id number] [address] [place] [address], [place] [address] May, [facility] [address] [id number] [address] [place] [address], [place] [id number] 18 May, 2014 [facility] [address] [id number] [address] [place] [address], [place] [address] 18 May, 2014 [facility] [address] [id number] [address] [place] [address], [place] [address] May, [facility] [address] [id number] [address] [place] [address], [place] [address] May, [facility] [address] [id number] [address] [place] [address], [place] [address] May, [facility] [address] [id number] [address] [place] [address], [place] [address] May, [facility] [address] [id number] [address] [place] [address], [place] [address] May, [facility] [address] [id number] [address] [place] [address], [place] [address] May, [facility] [address] [id number] [address] [place] [address], [place] [address] May, [facility] [address] [id number] [address] [place] [address], [place] [address] May, [facility] [address] [id number] [address] [place] [address], [place] [address] May, [facility] [address] [id number] [address] [place] [address], [place] [address] May, [facility] [address] [id number] [address] [place] [address], [place] [address] May, [facility] [address] [id number] [address] [place] [address], [place] [address] May, [facility] [address] [id number] [address] [place] [address], [place] [address] 15 May, 2014 [facility] [address] [id number] [address] [place] [address], [place] [address] May, [facility] [address] [id number] [address] [place] [address], [place] [address] 13 May, 2014 [facility] [address] [id number] [address] [place] [address], [place] [address] May, [facility] [address] [id number] [address] [place] [address], [place] [address] May, [facility] [address] [id number] [address] [place] [address], [place] [address] May, [facility] [address] [id number] [address] [place] [address], [place] [address] May, [facility] [address] [id number] [address] [place] [address], [place] [address] May, [facility] [address] [id number] [address] [place] [address], [place] [address] May, [facility] [address] [id number] [address] [place] [address], [place] [address] May, [facility] [address] [id number] [address] [place] [address] [address] May, [facility] [address] [id number] [address] [place] [address], [place] [address] May, [facility] [address] [id number] [address] [place] [address], [place] [address] May, [facility] [address] [id number] [address] [place] [address], [place] [address] Mar, [facility] [address] [id number] [address] [place] [address], [place] [address] Mar, [facility] [address] [id number] [address] [place] [address], [place] [address] Mar, [facility] [address] [id number] [address] [place] [address], [place] [address] Mar, [facility] [address] [id number] [address] [place] [address], [place] [address] Mar, [facility] [address] [id number] [address] [place] [address], [place] [address] Mar, [facility] [address] [id number] [address] [place] [address], [place] [address] Mar, [facility] [address] [id number] [address] [place] [address], [place] [address] Mar, [facility] [address] [id number] [address] [place] [address], [place] [address] Mar, [facility] [address] [id number] [address] [place] [address], [place] [address] Mar, [facility] [address] [id number] [address] [place] [address], [place] [address] Mar, [facility] [address] [id number] [address] [place] [address], [place] [address] Mar, [facility] [address] [id number] [address] [place] [address], [place] [address] Mar, [facility] [address] [id number] [address] [place] [address], [place] [address] Mar, [facility] [address] [id number] [address] [place] [address], [place] [address] Jan, [facility] [address] [id number] [address] [place] [address], [place] [address] Jan, [facility] [address] [id number] [address] [place] [address], [place] [address] Jan, [facility] [address] [id number] [address] [place] [address], [place] [address] Jan, [facility] [address] [id number] [address] [place] [address], [place] [address] Jan, [facility] [address] [id number] [address] [place] [address], [place] [address] Jan, [facility] [address] [id number] [address] [place] [address], [place] [address] Jan, [facility] [address] [id number] [facility] [place] [address] Jan, [facility] [address] [id number] [address] [place] [address], [place] [address] Jan, [facility] [address] [id number] [address] [place] [address], [place] [address] Dec, [facility] [address] [id number] [address] [place] [address], [place] [address] Dec, [facility] [address] [id number] [address] [place] [address], [place] [address] Dec, [facility] [address] [id number] [address] [place] [address], [place] [address] Dec, [facility] [address] [id number] [address] [place] [address], [place] [address] Dec, [facility] [address] [id number] [address] [place] [address], [place] [address] Dec, [facility] [address] [id number] [address] [place] [address], [place] [address] Dec, [facility] [address] [id number] [address] [place] [address], [place] [address] Dec, [facility] [address] [id number] [address] [place] [address], [place] [address] Dec, [facility] [address] [id number] [address] [place] [address], [place] [address] October, [facility] [address] [id number] [address] [place] [address], [place] [address] October, [facility] [address] [id number] [address] [place] [address], [place] [address] Sep, [facility] [address] [id number] [address] [place] [address], [place] [address] Sep, [facility] [address] [id number] [address] [place] [address], [place] [address] 07 Aug, 2013 [facility] [address] [id number] [address] [place] [address], [place] [address] Aug, [facility] [address] [id number] [address] [place] [address], [place] [address] 07 Aug, 2013 [facility] [address] [id number] [address] [place] [address], [place] [address] Aug, [facility] [address] [id number] [address] [place] [address], [place] [address] Aug, [facility] [address] [id number] [address] [place] [address], [place] [address] Aug, [facility] [address] [id number] [address] [place] [address], [place] [address] 14 Aug, 2013 [facility] [address] [id number] [address] [place] [address], [place] [address] Aug, [facility] [address] [id number] [address] [place] [address], [place] [address] Aug, [facility] [address] [id number] [address] [place] [address], [place] [address] Aug, [facility] [address] [id number] [address] [place] [address], [place] [address] Aug, [facility] [address] [id number] [address] [place] [address], [place] [address] Jul, [facility] [address] [id number] [address] [place] [address], [place] [address] Jul, [facility] [address] [id number] [address] [place] [address], [place] [address] May, [facility] [address] [id number] [address] [place] [address], [place] [address] May, [facility] [address] [id number] [address] [place] [address], [place] [address] May, [facility] [address] [id number] [address] [place] [address], [place] [address] May, [facility] [address] [id number] [address] [place] [address], [place] [address] May, [facility] [address] [id number] [address] [place] [address], [place] [address] May, [facility] [address] [id number] [address] [place] [address], [place] [address] May, [facility] [address] [id number] [address] [place] [address], [place] [address] May, [facility] [address] [id number] [address] [place] [address], [place] [address] May, [facility] [address] [id number] [address] [place] [address], [place] [address] May, [facility] [address] [id number] [address] [place] [address], [place] [address] May, [facility] [address] [id number] [address] [place] [address], [place] [address] May, [facility] [address] [id number] [address] [place] [address], [place] [address] May, [facility] [address] [id number] [address] [place] [address] May, [facility] [address] [id number] [address] [place] [address], [place] [address] May, [facility] [address] [id number] [address] [place] [address], [place] [address] May, [facility] [address] [id number] [address] [place] [address], [place] [address] May, [facility] [address] [id number] [address] [place] [address], [place] [address] May, [facility] [address] [id number] [address] [place] [address], [place] [address] 16 May, 2013 [facility] [address] [id number] [address] [place] [address], [place] [address] 16 May, 2013 [facility] [address] [id number] [address] [place] [address], [place] [address] May, [facility] [address] [id number] [address] [place] [address], [place] [address] May, [facility] [address] [id number] [address] [place] [address], [place] [address] May, [facility] [address] [id number] [address] [place] [address], [place] [address] May, [facility] [address] [id number] [address] [place] [address], [place] [address] May, [facility] [address] [id number] [address] [place] [address], [place] [address] May, [facility] [address] [id number] [address] [place] [address], [place] [address] May, [facility] [address] [id number] [address] [place] [address], [place] [address] May, [facility] [address] [id number] [address] [place] [address], [place] [address] May, [facility] [address] [id number] [address] [place] [address], [place] [address] May, [facility] [address] [id number] [address] [place] [address], [place] [address] Mar, [facility] [address] [id number] [address] [place] [address], [place] [address] Mar, [facility] [address] [id number] [address] [place] [address], [place] [address] Mar, [facility] [address] [id number] [address] [place] [address], [place] [address] Mar, [facility] [address] [id number] [address] [place] [address], [place] [address] 30 Mar, 2013 [facility] [address] [id number] [address] [place] [address], [place] [address] Mar, [facility] [address] [id number] [address] [place] [address], [place] [address] Mar, [facility] [address] [id number] [address] [place] [address], [place] [address] Mar, [facility] [address] [id number] [address] [place] [address], [place] [address] Mar, [facility] [address] [id number] [address] [place] [address], [place] [address] Mar, [facility] [address] [id number] [address] [place] [address], [place] [address] Mar, [facility] [address] [id number] [address] [place] [address] Mar, [facility] [address] [id number] [address] [place] [address] Mar, [facility] [address] [id number] [address] [place] [address] Mar, [facility] [address] [id number] [address] [place] [address] Mar, [facility] [address] [id number] [address] [place] [address] Mar, [facility] [address] [id number] [address] [place] [address] Mar, [facility] [address] [id number] [address] [place] [address] Mar, [facility] [address] [id number] [address] [place] [address] Mar, [facility] [address] [id number] [address] [place] [address] 18 Mar, 2013 [facility] [address] [id number] [address] [place] [address], [place] [address] 18 Mar, 2013 [facility] [address] [id number] [address] [place] [address], [place] [address] 14 Mar, 2013 [facility] [address] [id number] [address] [place] [address], [place] [address] 14 Mar, 2013 [facility] [address] [id number] [address] [place] [address], [place] [address] 10 Mar, 2013 [facility] [address] [id number] [address] [place] [address], [place] [address] 18 Mar, 2013 [facility] [address] [id number] [address] [place] [address], [place] [address] 12 Mar, 2013 [facility] [address] [id number] [address] [place] [address], [place] [address] 11 Mar, 2013 [facility] [address] [id number] [address] [place] [address], [place] [address] Jan, [facility] [address] [id number] [address] [place] [address], [place] [address] October, [facility] [address] [id number] [address] [place] [address], [place] [address] Sep, [facility] [address] [id number] [address] [place] [address], [place] [address] 15 Sep, 2012 [facility] [address] [id number] [address] [place] [address] Aug, [facility] [address] [id number] [address] [place] [address], [place] [address] 06 Aug, 2012 [facility] [address] [id number] [address] [place] [address] 04 Aug, 2012 [facility] [address] [id number] [address] [place] [address] Jul, [facility] [address] [id number] [address] [place] [address], [place] [address] 19 May, 2012 [facility] [address] [id number] [address] [place] [address], [place] [address] 19 May, 2012 [facility] [address] [id number] [address] [place] [address], [place] [address] 18 May, 2012 [facility] [address] [id number] [address] [place] [address], [place] [address] 18 May, 2012 [facility] [address] [id number] [address] [place] [address], [place] [address] 19 Mar, 2012 [facility] [address] [id number] [address] [place] [address], [place] [address] 19 Mar, 2012 [facility] [address] [id number] [address] [place] [address], [place] [address] 16 Mar, 2012 [facility] [address] [id number] [address] [place] [address], [place] [address] 25 Mar, 2012 [facility] [address] [id number] [address] [place] [address], [place] [address] 19 Mar, 2012 [facility] [address] [id number] [address] [place] [address], [place] [address] 13 Mar, 2012 [facility] [address] [id number] [address] [place] [address], [place] [address] 07 Mar, 2012 [facility] [address] [id number] [address] [place] [address], [place] [address] 30 Jan, 2012 [facility] [address] [id number] [address] [place] [address], [place] [address] 28 Jan, 2012 [facility] [address] [id number] [address] [place] [address], [place] [address] 20 Jan, 2012 [facility] [address] [id number] [address] [place] [address], [place] [address] 14 Jan, 2012 [facility] [address] [id number] [address] [place] [address], [place] [address] Jan, [facility] [address] [id number] [address] [place] [address], [place] [address] Jan, [facility] [address] [id number] [address] [place] [address], [place] [address] Jan, [facility] [address] [id number] [address] [place] [address], [place] [address] Jan, [facility] [address] [id number] [address] [place] [address], [place] [address] Jan, [facility] [address] [id number] [address] [place] [address], [place] [address] Jan, [facility] [address] [id number] [address] [place] [address], [place] [address] Jan, [facility] [address] [id number] [address] [place] [address], [place] [address] Jan, [facility] [address] [id number] [address] [place] [address], [place] [address] Jan, [facility] [address] [id number] [address] [place] [address], [place] [address] Jan, [facility] [address] [id number] [address] [place] [address], [place] [address] Jan, [facility] [address] [id number] [address] [place] [address], [place] [address] Jan, [facility] [address] [id number] [address] [place] [address], [place] [address] Dec, [facility] [address] [id number] [address] [place] [address], [place] [address] Dec, [facility] [address] [id number] [address] [place] [address], [place] [address] Nov, [facility] [address] [id number] [address] [place] [address], [place] [address] Nov, [facility] [address] [id number] [address] [place] [address], [place] [address] 29 Oct, 2011 [facility] [address] [id number] [address] [place] [address], [place] [address] October, [facility] [address] [id number] [address] [place] [address], [place] [address] October, [facility] [address] [id number] [address] [place] [address], [place] [address] Sep, [facility] [address] [id number] [address] [place] [address], [place] [address] 18 Sep, 2011 [facility] [address] [id number] [address] [place] [address], [place] [address] 30 Aug, 2011 [facility] [address] [id number] [address] [place] [address], [place] [address] Aug, [facility] [address] [id number] [address] [place] [address], [place] [address] Aug, [facility] [address] [id number] [address] [place] [address], [place] [address] Aug, [facility] [address] [id number] [address] [place] [address], [place] [address] Aug, [facility] [address] [id number] [address] [place] [address], [place] [address] 14 Aug, 2011 [facility] [address] [id number] [address] [place] [address], [place] [address] Aug, [facility] [address] [id number] [address] [place] [address], [place] [address] Jul, [facility] [address] [id number] [address] [place] [address], [place] [address] Jul, [facility] [address] [id number] [address] [place] [address], [place] [address] Jul, [facility] [address] [id number] [address] [place] [address], [place] [address] May, [facility] [address] [id number] [address] [place] [address], [place] [address] 28 May, 2011 [facility] [address] [id number] [address] [place] [address], [place] [address] May, [facility] [address] [id number] [address] [place] [address], [place] [id number] 19 May, 2011 [facility] [address] [id number] [address] [place] [address], [place] [address] May, [facility] [address] [id number] [address] [place] [address], [place] [address] May, [facility] [address] [id number] [address] [place] [address], [place] [address] May, [facility] [address] [id number] [address] [place] [address], [place] [address] 25 Mar, 2011 [facility] [address] [id number] [address] [place] [address], [place] [id number] 20 Mar, 2011 [facility] [address] [id number] [address] [place] [address], [place] [address] Mar, [facility] [address] [id number] [address] [place] [address], [place] [address] 15 Mar, 2011 [facility] [address] [id number] [address] [place] [address], [place] [address] Mar, [facility] [address] [id number] [address] [place] [address], [place] [address] 13 Mar, 2010 [facility] [address] [id number] [address] [place] [address], [place] [address] 10 Jan, 2010 [facility] [address] [id number] [address] [place] [address], [place] [address] 31 May, 2009 [facility] [address] [id number] [address] [place] [address], [place] [address] 16 May, 2009 [facility] [address] [id number] [address] [place] [phone] May, [facility] [address] [facility] [id number] [address] [place] [id number] May, [facility] [address] [facility] [id number] [address] [place] [id number] May, [facility] [address] [facility] [id number] [address] [place] [phone] May, [facility] [address] [facility] [id number] [address] [place] [id number] Mar, [facility] [address] [facility] [id number] [address] [place] [id number] Sep, IMMUNIZATIONS No Known Immunizations SOCIAL HISTORY [...]
--- OUTSIDE RECORDS SUMMARY | 2019-12-30 23:30 | XMS REPORT ---
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 [address] [place] [id number] 08 Mar, 2016 [facility] [address] [id number] [address] [place] [id number] 07 Mar, 2016 Axillary abscess L02.419 [facility] [address] [id number] [address] [place] [id number] 07 Mar, 2016 [facility] [address] [id number] [address] [place] [phone] Jan, [facility] [address] [id number] [address] [place] [id number] Jan, Encounter for Depo-Provera c ontraception Z30.42 [facility] [address] [id number] [address] [place] [phone] Jan, [facility] [address] [facility] [id number] [address] [place] [phone] Jan, [facility] [address] [id number] [address] [place] [phone] Jan, [facility] [address] [facility] [id number] [address] [place] [phone] Jan, Carpal tunnel syndrome, righ t upper limb G56.01 [facility] [address] [facility] [id number] [address] [place] [phone] Jan, Bilateral otitis media, unsp ecified chronicity, unspecified otitis media type H66.93 [facility] [address] [id number] [address] [place] [phone] Jan, Lumbago with sciatica, left side M54.42 [facility] [address] [facility] [id number] [address] [place] [phone] Jan, [facility] [address] [facility] [id number] [address] [place] [id number] Jan, [facility] [address] [facility] [id number] [address] [place] [phone] Jan, Sore throat J02.9 ; Carpal t unnel syndrome, left upper limb G56.02 and Carpal tunnel syndrome, right upper limb G56.01 [facility] [address] [facility] [id number] [address] [place] [id number] Dec, [facility] [address] [facility] [id number] [address] [place] [phone] Dec, [facility] [address] [facility] [id number] [address] [place] [phone] Dec, [facility] [address] [id number] [address] [place] [id number] Dec, [facility] [address] [id number] [address] [place] [phone] Dec, Lumbago with sciatica, left side M54.42 [facility] [address] [id number] [address] [place] [id number] Dec, Anxiety F41.9 [facility] [address] [id number] [address] [place] [id number] Dec, Tremor R25.1 ; Back pain wit h right-sided radiculopathy M54.10 and Headache R51 [facility] [address] [id number] [address] [place] [id number] Dec, [facility] [address] [id number] [address] [place] [phone] Dec, [facility] [address] [id number] [address] [place] [phone] Dec, Lumbago with sciatica, left side M54.42 [facility] [address] [id number] [address] [place] [phone] Dec, Dizziness R42 [facility] [address] [id number] [address] [place] [phone] Nov, [facility] [address] [id number] [address] [place] [phone] Nov, Lumbago with sciatica, left side M54.42 and Lumbago with sciatica, right side M54.41 [facility] [address] [id number] [address] [place] [phone] Nov, Anxiety F41.9 [facility] [address] [id number] [address] [place] [id number] Nov, [facility] [address] [id number] [address] [place] [id number] Nov, Headache R51 [facility] [address] [facility] [id number] [address] [place] [id number] October, Encounter for Depo-Provera c ontraception Z30.42 [facility] [address] [facility] [id number] [address] [place] [id number] October, Anxiety F41.9 [facility] [address] [facility] [id number] [address] [place] [id number] October, Anxiety F41.9 [facility] [address] [facility] [id number] [address] [place] [id number] October, [facility] [address] [facility] [id number] [address] [place] [phone] October, Vaginal yeast infection B37. 3 [facility] [address] [facility] [id number] [address] [place] [phone] October, [facility] [address] [facility] [id number] [address] [place] [phone] October, Headache R51 [facility] [address] [facility] [id number] [address] [place] [id number] Sep, [facility] [address] [facility] [id number] [address] [place] [phone] Sep, [facility] [address] [facility] [id number] [address] [place] [id number] Sep, Headache R51 [facility] [address] [facility] [id number] [address] [place] [phone] Sep, [facility] [address] [facility] [id number] [address] [place] [phone] Sep, Headache R51 [facility] [address] [facility] [id number] [address] [place] [id number] Aug, 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 and Headache R51 [facility] [address] [facility] [id number] [address] [place] [id number] Aug, [facility] [address] [facility] [id number] [address] [place] [id number] Aug, Headache R51 ; Forgetfulness R68.[address] scan, head R93.0 [facility] [address] [place] [id number] [address] [place] [id number] 16 Aug, 2015 [facility] [address] [place] [id number] [place] [phone] 15 Aug, 2015 [facility] [address] [place] [id number] [address] [place] [id number] 14 Aug, 2015 [facility] [address] [place] [id number] [place] [phone] Aug, Headache R51 [facility] [address] [place] [id number] [place] [phone] 08 Aug, 2015 Abnormal computed tomography angiography of head R93.0 [facility] [address] [id number] of the head R93. 0 [facility] [address] [place] [id number] [place] [id number] Aug, Headache R51 ; Nausea R11.0 and Forgetfulness R68.89 [facility] [address] [place] [id number] [address] [place] [phone] Aug, Mental disor NOS oth dis F99 ; Unspecified mood [affective] disorder F39 and Anxiety disorder, unspecified F41.9 [facility] [address] [place] [id number] [address] [place] [phone] Aug, [facility] [address] [place] [id number] [place] [phone] Aug, [facility] [address] [place] [id number] [address] [place] [id number] Aug, Encounter for Depo-Provera c ontraception Z30.42 [facility] [address] [facility] [id number] [address] [place] [phone] Jul, [facility] [address] [facility] [id number] [address] [place] [id number] Jul, Contusion of unspecified fin laura without damage to nail, subsequent encounter S60.00XD [facility] [address] [facility] [id number] [address] [place] [id number] May, [facility] [address] [place] [id number] [address] [place] [id number] May, [facility] [address] [place] [id number] [address] [place] [id number] 16 May, 2015 Dental examination Z01.20 [facility] [address] [place] [id number] [address] [place] [phone] May, Hematuria R31.9 [facility] [address] [place] [id number] [address] [place] [phone] May, [facility] [address] [address] May, Generalized anxiety disorder F41.1 [facility] [address] [place] [id number] [address] [place] [id number] 09 May, 2015 [facility] [id number] [place] [phone] May, [facility] [address] [place] [id number] [address] [place] [phone] May, [facility] [address] [place] [id number] [address] [place] [id number] Mar, Upper respiratory tract infe ction, unspecified upper respiratory infection J06.9 ; Anaphylaxis, subsequent encounter T78.2XXD ; Encounter for Depo-Provera contraception Z30.42 and Encounter for surveillance of injectable contraceptive Z30.42 [facility] [address] [place] [id number] [address] [place] [id number] Mar, [facility] [address] [id number] [address] [place] [phone] Mar, [facility] [address] [id number] [address] [place] [phone] Mar, [facility] [address] [id number] [address] [place] [id number] Mar, [facility] [address] [id number] [address] [place] [phone] Mar, [facility] [address] [id number] [address] [place] [phone] Jan, [facility] [address] [id number] [address] [place] [phone] Jan, [facility] [address] [id number] [address] [place] [phone] Jan, [facility] [address] [id number] [address] [place] [phone] Dec, [facility] [address] [id number] [address] [place] [id number] Dec, Dental examination V72.2 [facility] [address] [id number] [address] [place] [phone] Dec, [facility] [address] [id number] [address] [place] [phone] Nov, [facility] [address] [id number] [address] [place] [phone] Nov, [facility] [address] [id number] [address] [place] [phone] Nov, Abdominal pain 789.00 and Na usea and vomiting 787.01 [facility] [address] [id number] [address] [place] [phone] Nov, UTI (lower urinary tract inf ection) 599.0 and Abdominal pain 789.00 [facility] [address] [id number] [address] [place] [address], [place] [address] October, [facility] [address] [id number] [address] [place] [address], [place] [id number] Sep, [facility] [address] [id number] [address] [place] [address], [place] [id number] Sep, [facility] [address] [id number] [address] [place] [id number] Aug, [facility] [address] [id number] [address] [place] [address], [place] [id number] Aug, [facility] [address] [id number] [address] [place] [id number] Aug, [facility] [address] [id number] [address] [place] [address], [place] [id number] Aug, [facility] [address] [id number] [address] [place] [id number] Aug, [facility] [address] [id number] [address] [place] [address], [place] [address] Aug, [facility] [address] [id number] [address] [place] [id number] Aug, [facility] [address] [id number] [address] [place] [id number] Aug, [facility] [address] [id number] [address] [place] [id number] Jul, [facility] [address] [id number] [address] [place] [id number] Jul, [facility] [address] [id number] [address] [place] [id number] Jul, [facility] [address] [id number] [address] [place] [id number] Jul, [facility] [address] [id number] [address] [place] [address], [place] [id number] Jul, [facility] [address] [id number] [address] [place] [address], [place] [id number] Jul, [facility] [address] [id number] [address] [place] [address], [place] [id number] Jul, [facility] [address] [id number] [address] [place] [address], [place] [id number] Jul, [facility] [address] [id number] [address] [place] [address], [place] [id number] Jul, [facility] [address] [id number] [address] [place] [address], [place] [id number] Jul, [facility] [address] [id number] [address] [place] [address], [place] [id number] Jul, [facility] [address] [id number] [address] [place] [address], [place] [id number] Jul, [facility] [address] [id number] [address] [place] [address], [place] [id number] May, [facility] [address] [id number] [address] [place] [address], [place] [id number] May, [facility] [address] [id number] [address] [place] [address], [place] [id number] May, [facility] [address] [id number] [address] [place] [address], [place] [id number] May, [facility] [address] [id number] [address] [place] [address], [place] [id number] May, [facility] [address] [id number] [address] [place] [address], [place] [id number] May, [facility] [address] [id number] [address] [place] [address], [place] [id number] May, [facility] [address] [id number] [address] [place] [address], [place] [id number] May, [facility] [address] [id number] [address] [place] [address], [place] [id number] May, [facility] [address] [id number] [address] [place] [address], [place] [id number] May, [facility] [facility] [address] [id number] [address] [place] [address], [place] [address] May, [facility] [address] [id number] [address] [place] [address], [place] [address] May, [facility] [address] [id number] [address] [place] [address], [place] [address] May, [facility] [address] [id number] [address] [place] [address], [place] [address] May, [facility] [address] [id number] [address] [place] [address], [place] [address] May, [facility] [address] [id number] [address] [place] [address], [place] [address] May, [facility] [address] [id number] [address] [place] [address], [place] [address] May, [facility] [address] [id number] [address] [place] [address], [place] [address] May, [facility] [address] [id number] [address] [place] [address], [place] [address] May, [facility] [address] [id number] [address] [place] [address], [place] [address] May, [facility] [address] [id number] [address] [place] [address], [place] [address] May, [facility] [address] [id number] [address] [place] [address], [place] [address] May, [facility] [address] [id number] [address] [place] [address], [place] [address] 15 May, 2014 [facility] [address] [id number] [address] [place] [id number] 15 May, 2014 [facility] [address] [id number] [address] [place] [address], [place] [address] May, [facility] [address] [id number] [address] [place] [address], [place] [address] May, [facility] [address] [id number] [address] [place] [address], [place] [address] May, [facility] [address] [id number] [address] [place] [address], [place] [address] May, [facility] [address] [id number] [address] [place] [address], [place] [address] May, [facility] [address] [id number] [address] [place] [address], [place] [address] May, [facility] [address] [id number] [address] [place] [address], [place] [address] May, [facility] [address] [id number] [address] [place] [address], [place] [address] May, [facility] [address] [id number] [address] [place] [address], [place] [address] May, [facility] [address] [id number] [address] [place] [address], [place] [address] May, [facility] [address] [id number] [address] [place] [address], [place] [address] May, [facility] [address] [id number] [address] [place] [address], [place] [address] Mar, [facility] [address] [id number] [address] [place] [address], [place] [address] Mar, [facility] [address] [id number] [address] [place] [address], [place] [address] Mar, [facility] [address] [id number] [address] [place] [address], [place] [address] Mar, [facility] [address] [id number] [facility] [place] [address] Mar, [facility] [address] [id number] [address] [place] [address], [place] [address] Mar, [facility] [address] [id number] [address] [place] [address], [place] [address] Mar, [facility] [address] [id number] [address] [place] [address], [place] [address] Mar, [facility] [address] [id number] [address] [place] [address], [place] [address] Mar, [facility] [address] [id number] [address] [place] [address], [place] [address] Mar, [facility] [address] [id number] [address] [place] [address], [place] [address] Mar, [facility] [address] [id number] [address] [place] [address], [place] [address] Mar, [facility] [address] [id number] [address] [place] [address], [place] [address] Mar, [facility] [address] [id number] [address] [place] [address], [place] [address] Mar, [facility] [address] [id number] [address] [place] [address], [place] [address] Jan, [facility] [address] [id number] [address] [place] [address], [place] [address] Jan, [facility] [address] [id number] [address] [place] [address], [place] [address] Jan, [facility] [address] [id number] [address] [place] [address], [place] [address] Jan, [facility] [address] [id number] [address] [place] [address], [place] [address] Jan, [facility] [address] [id number] [address] [place] [address], [place] [address] Jan, [facility] [address] [id number] [facility] [place] [address] Jan, [facility] [address] [id number] [facility] [place] [address] Jan, [facility] [address] [id number] [facility] [place] [address] Jan, [facility] [address] [id number] [address] [place] [address], [place] [address] Dec, [facility] [address] [id number] [facility] [place] [address] Dec, [facility] [address] [id number] [address] [place] [address], [place] [address] Dec, [facility] [address] [id number] [address] [place] [address], [place] [address] Dec, [facility] [address] [id number] [address] [place] [address], [place] [address] Dec, [facility] [address] [id number] [address] [place] [address], [place] [address] Dec, [facility] [address] [id number] [address] [place] [address], [place] [address] Dec, [facility] [address] [id number] [address] [place] [address], [place] [address] Dec, [facility] [address] [id number] [address] [place] [address], [place] [address] Dec, [facility] [address] [id number] [address] [place] [address], [place] [address] October, [facility] [address] [id number] [address] [place] [address], [place] [address] October, [facility] [address] [id number] [address] [place] [address], [place] [address] Sep, [facility] [address] [id number] [address] [place] [address], [place] [address] 15 Sep, 2013 [facility] [address] [id number] [address] [place] [address], [place] [id number] 07 Aug, 2013 [facility] [address] [id number] [address] [place] [address], [place] [address] 07 Aug, 2013 [facility] [address] [id number] [address] [place] [address], [place] [address] 07 Aug, 2013 [facility] [address] [id number] [address] [place] [address], [place] [address] 07 Aug, 2013 [facility] [address] [id number] [address] [place] [address], [place] [address] 17 Aug, 2013 [facility] [address] [id number] [address] [place] [address], [place] [address] 17 Aug, 2013 [facility] [address] [id number] [address] [place] [address], [place] [address] 14 Aug, 2013 [facility] [address] [id number] [address] [place] [address], [place] [address] 07 Aug, 2013 [facility] [address] [id number] [address] [place] [address], [place] [address] 07 Aug, 2013 [facility] [address] [id number] [address] [place] [address], [place] [address] Aug, [facility] [address] [id number] [address] [place] [address], [place] [address] Aug, [facility] [address] [id number] [address] [place] [address], [place] [address] Jul, [facility] [address] [id number] [address] [place] [address], [place] [address] Jul, [facility] [address] [id number] [address] [place] [address], [place] [address] May, [facility] [address] [id number] [address] [place] [address], [place] [address] May, [facility] [address] [id number] [address] [place] [address], [place] [address] May, [facility] [address] [id number] [address] [place] [address], [place] [address] May, [facility] [address] [id number] [address] [place] [address], [place] [address] May, [facility] [address] [id number] [address] [place] [address], [place] [address] May, [facility] [address] [id number] [address] [place] [address], [place] [address] May, [facility] [address] [id number] [address] [place] [address], [place] [address] May, [facility] [address] [id number] [address] [place] [address], [place] [address] May, [facility] [address] [id number] [address] [place] [address], [place] [address] May, [facility] [address] [id number] [address] [place] [address], [place] [address] May, [facility] [address] [id number] [address] [place] [address], [place] [address] May, [facility] [address] [id number] [address] [place] [address], [place] [address] May, [facility] [address] [id number] [address] [place] [address], [place] [address] May, [facility] [address] [id number] [address] [place] [address], [place] [address] May, [facility] [address] [id number] [address] [place] [address], [place] [address] May, [facility] [address] [id number] [address] [place] [address], [place] [address] May, [facility] [address] [id number] [address] [place] [address], [place] [address] 18 May, 2013 [facility] [address] [id number] [address] [place] [address], [place] [address] 16 May, 2013 [facility] [address] [id number] [address] [place] [address], [place] [address] 16 May, 2013 [facility] [address] [id number] [address] [place] [address], [place] [address] May, [facility] [address] [id number] [address] [place] [address], [place] [address] May, [facility] [address] [id number] [address] [place] [address], [place] [address] May, [facility] [address] [id number] [address] [place] [address], [place] [address] May, [facility] [address] [id number] [address] [place] [address], [place] [address] May, [facility] [address] [id number] [address] [place] [address], [place] [address] May, [facility] [address] [id number] [address] [place] [address], [place] [address] May, [facility] [address] [id number] [address] [place] [address], [place] [address] May, [facility] [address] [id number] [address] [place] [address], [place] [address] May, [facility] [address] [id number] [address] [place] [id number] May, [facility] [address] [id number] [address] [place] [address], [place] [address] Mar, [facility] [address] [id number] [address] [place] [address], [place] [address] Mar, [facility] [address] [id number] [address] [place] [id number] Mar, [facility] [address] [id number] [address] [place] [address], [place] [address] 31 Mar, 2013 [facility] [address] [id number] [address] [place] [address], [place] [address] 30 Mar, 2013 [facility] [address] [id number] [address] [place] [address], [place] [address] Mar, [facility] [address] [id number] [address] [place] [address], [place] [address] Mar, [facility] [address] [id number] [address] [place] [address], [place] [address] Mar, [facility] [address] [id number] [address] [place] [address], [place] [address] Mar, [facility] [address] [id number] [address] [place] [address], [place] [address] Mar, [facility] [address] [id number] [address] [place] [address], [place] [address] Mar, [facility] [address] [id number] [address] [place] [address], [place] [address] Mar, [facility] [address] [id number] [address] [place] [address], [place] [address] Mar, [facility] [address] [id number] [address] [place] [address], [place] [address] Mar, [facility] [address] [id number] [address] [place] [address], [place] [address] Mar, [facility] [address] [id number] [address] [place] [address], [place] [address] Mar, [facility] [address] [id number] [address] [place] [address], [place] [address] Mar, [facility] [address] [id number] [address] [place] [address], [place] [address] 18 Mar, 2013 [facility] [address] [id number] [address] [place] [address], [place] [address] 18 Mar, 2013 [facility] [address] [id number] [address] [place] [address], [place] [address] 18 Mar, 2013 [facility] [address] [id number] [address] [place] [address], [place] [address] 18 Mar, 2013 [facility] [address] [id number] [address] [place] [address], [place] [address] 14 Mar, 2013 [facility] [address] [id number] [address] [place] [address], [place] [address] 14 Mar, 2013 [facility] [address] [id number] [address] [place] [address], [place] [address] 10 Mar, 2013 [facility] [address] [id number] [address] [place] [address], [place] [address] 18 Mar, 2013 [facility] [address] [id number] [address] [place] [address], [place] [address] 12 Mar, 2013 [facility] [address] [id number] [address] [place] [address], [place] [address] 11 Mar, 2013 [facility] [address] [id number] [address] [place] [address], [place] [address] Jan, [facility] [address] [id number] [address] [place] [address], [place] [address] October, [facility] [address] [id number] [address] [place] [address], [place] [address] Sep, [facility] [address] [id number] [address] [place] [id number] 15 Sep, 2012 [facility] [address] [id number] [address] [place] [address], [place] [address] Aug, [facility] [address] [id number] [address] [place] [address], [place] [address] 06 Aug, 2012 [facility] [address] [id number] [address] [place] [address], [place] [address] 04 Aug, 2012 [facility] [address] [id number] [address] [place] [address], [place] [address] 17 Jul, 2012 [facility] [address] [id number] [address] [place] [address], [place] [address] 19 May, 2012 [facility] [address] [id number] [address] [place] [address], [place] [address] 19 May, 2012 [facility] [address] [id number] [address] [place] [address], [place] [address] 18 May, 2012 [facility] [address] [id number] [address] [place] [address], [place] [address] 18 May, 2012 [facility] [address] [id number] [address] [place] [address], [place] [address] 19 Mar, 2012 [facility] [address] [id number] [address] [place] [address], [place] [address] 19 Mar, 2012 [facility] [address] [id number] [address] [place] [address], [place] [address] 16 Mar, 2012 [facility] [address] [id number] [address] [place] [address], [place] [address] 25 Mar, 2012 [facility] [address] [id number] [address] [place] [address], [place] [address] 19 Mar, 2012 [facility] [address] [id number] [address] [place] [address], [place] [address] 13 Mar, 2012 [facility] [address] [id number] [address] [place] [address], [place] [id number] 07 Mar, 2012 [facility] [address] [id number] [address] [place] [address], [place] [address] 30 Jan, 2012 [facility] [address] [id number] [address] [place] [address], [place] [address] 28 Jan, 2012 [facility] [address] [id number] [address] [place] [address], [place] [address] 20 Jan, 2012 [facility] [address] [id number] [address] [place] [address], [place] [address] Jan, [facility] [address] [id number] [facility] [place] [address] Jan, [facility] [address] [id number] [address] [place] [address], [place] [address] Jan, [facility] [address] [id number] [address] [place] [address], [place] [address] Jan, [facility] [address] [id number] [address] [place] [address], [place] [address] Jan, [facility] [address] [id number] [address] [place] [address], [place] [address] Jan, [facility] [address] [id number] [address] [place] [address], [place] [address] Jan, [facility] [address] [id number] [address] [place] [address], [place] [address] Jan, [facility] [address] [id number] [address] [place] [address], [place] [address] Jan, [facility] [address] [id number] [address] [place] [address], [place] [address] Jan, [facility] [address] [id number] [address] [place] [address], [place] [address] Jan, [facility] [address] [id number] [address] [place] [address], [place] [address] Jan, [facility] [address] [id number] [address] [place] [address], [place] [address] Jan, [facility] [address] [id number] [address] [place] [address], [place] [address] Dec, [facility] [address] [id number] [address] [place] [address], [place] [id number] Dec, [facility] [address] [id number] [address] [place] [address], [place] [id number] Nov, [facility] [address] [id number] [address] [place] [address], [place] [id number] 08 Nov, 2011 [facility] [address] [id number] [address] [place] [address], [place] [address] October, [facility] [address] [id number] [address] [place] [address], [place] [id number] October, [facility] [address] [id number] [address] [place] [address], [place] [id number] October, [facility] [address] [id number] [address] [place] [address], [place] [id number] Sep, [facility] [address] [id number] [address] [place] [address], [place] [id number] 18 Sep, 2011 [facility] [address] [id number] [address] [place] [address], [place] [id number] 30 Aug, 2011 [facility] [address] [id number] [address] [place] [address], [place] [id number] 28 Aug, 2011 [facility] [address] [id number] [address] [place] [address], [place] [id number] 26 Aug, 2011 [facility] [address] [id number] [address] [place] [address], [place] [id number] 19 Aug, 2011 [facility] [address] [id number] [address] [place] [address], [place] [id number] Aug, [facility] [address] [id number] [address] [place] [address], [place] [id number] 14 Aug, 2011 [facility] [address] [id number] [address] [place] [address], [place] [id number] 07 Aug, 2011 [facility] [address] [id number] [address] [place] [address], [place] [id number] Jul, [facility] [address] [id number] [address] [place] [address], [place] [id number] Jul, [facility] [address] [id number] [address] [place] [address], [place] [address] Jul, [facility] [address] [id number] [address] [place] [address], [place] [id number] May, [facility] [address] [id number] [address] [place] [address], [place] [id number] May, [facility] [address] [id number] [address] [place] [address], [place] [id number] May, [facility] [address] [id number] [address] [place] [address], [place] [id number] May, [facility] [address] [id number] [address] [place] [address], [place] [id number] May, [facility] [address] [id number] [address] [place] [address], [place] [id number] May, [facility] [address] [id number] [address] [place] [address], [place] [address] May, [facility] [address] [id number] [address] [place] [address], [place] [id number] Mar, [facility] [address] [id number] [address] [place] [address], [place] [id number] Mar, [facility] [address] [id number] [address] [place] [address], [place] [id number] Mar, [facility] [address] [id number] [address] [place] [address], [place] [id number] 15 Mar, 2011 [facility] [address] [id number] [address] [place] [address], [place] [id number] Mar, [facility] [address] [id number] [address] [place] [address], [place] [id number] Mar, [facility] [address] [id number] [address] [place] [address], [place] [id number] 10 Jan, 2010 [facility] [address] [id number] [address] [place] [address], [place] [id number] 31 May, 2009 [facility] [address] [id number] [address] [address] May, [facility] [address] [facility] [id number] [address] [place] [id number] May, [facility] [address] [facility] [id number] [address] [place] [id number] May, [facility] [address] [facility] [id number] [address] [place] [id number] May, [facility] [address] [facility] [id number] [address] [place] [id number] May, [facility] [address] [facility] [id number] [address] [place] [id number] Mar, [facility] [address] [facility] [id number] [address] [place] [id number] Sep, IMMUNIZATIONS No Known Immunizations SOCIAL HISTORY [...]
--- OUTSIDE RECORDS SUMMARY | 2019-12-30 23:30 | XMS REPORT ---
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 [facility] [id number] [address] [place] [phone] Jan, Carpal tunnel syndrome, righ t upper limb G56.01 [facility] [address] [facility] [id number] [address] [place] [id number] Jan, Bilateral otitis media, unsp ecified chronicity, unspecified otitis media type H66.93 [facility] [address] [facility] [id number] [address] [place] [phone] Jan, Lumbago with sciatica, left side M54.42 [facility] [address] [facility] [id number] [address] [place] [id number] Jan, [facility] [address] [facility] [id number] [address] [place] [phone] Jan, [facility] [address] [facility] [id number] [address] [place] [phone] Jan, Sore throat J02.9 ; Carpal t unnel syndrome, left upper limb G56.02 and Carpal tunnel syndrome, right upper limb G56.01 [facility] [address] [facility] [id number] [address] [place] [phone] Dec, [facility] [address] [facility] [id number] [address] [place] [id number] Dec, [facility] [address] [facility] [id number] [address] [place] [phone] Dec, [facility] [address] [id number] [address] [place] [phone] Dec, [facility] [address] [id number] [address] [place] [phone] Dec, Lumbago with sciatica, left side M54.42 [facility] [address] [id number] [address] [place] [phone] Dec, Anxiety F41.9 [facility] [address] [id number] [address] [place] [phone] Dec, Tremor R25.1 ; Back pain wit h right-sided radiculopathy M54.10 and Headache R51 [facility] [address] [id number] [address] [place] [phone] Dec, [facility] [address] [id number] [address] [place] [phone] Dec, [facility] [address] [id number] [address] [place] [id number] Dec, Lumbago with sciatica, left side M54.42 [facility] [address] [id number] [address] [place] [phone] Dec, Dizziness R42 [facility] [address] [id number] [address] [place] [phone] Nov, [facility] [address] [id number] [address] [place] [phone] Nov, Lumbago with sciatica, left side M54.42 and Lumbago with sciatica, right side M54.41 [facility] [address] [id number] [address] [place] [phone] Nov, Anxiety F41.9 [facility] [address] [id number] [address] [place] [phone] Nov, [facility] [address] [id number] [address] [place] [id number] Nov, Headache R51 [facility] [address] [facility] [id number] [address] [place] [phone] October, Encounter for Depo-Provera c ontraception Z30.42 [facility] [address] [facility] [id number] [address] [place] [phone] October, Anxiety F41.9 [facility] [address] [facility] [id number] [address] [place] [id number] October, Anxiety F41.9 [facility] [address] [facility] [id number] [address] [place] [phone] October, [facility] [address] [place] [id number] [place] [phone] October, Vaginal yeast infection B37. 3 [facility] [address] [facility] [id number] [address] [place] [id number] October, [facility] [address] [facility] [id number] [address] [place] [phone] October, Headache R51 [facility] [address] [id number] Sep, [facility] [address] [place] [id number] [address] [place] [phone] Sep, [facility] [address] [facility] [id number] [address] [place] [phone] Sep, Headache R51 [facility] [address] [facility] [id number] [address] [place] [phone] Sep, [facility] [address] [place] [id number] [address] [place] [phone] Sep, Headache R51 [facility] [address] [facility] [id number] [address] [place] [phone] Aug, 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 and Headache R51 [facility] [address] [facility] [id number] [address] [place] [id number] 24 Aug, 2015 [facility] [address] [facility] [id number] [address] [place] [phone] Aug, Headache R51 ; Forgetfulness R68.[address] scan, head R93.0 [facility] [address] [facility] [id number] [address] [place] [phone] 16 Aug, 2015 [facility] [address] [place] [id number] [place] [phone] 15 Aug, 2015 [facility] [address] [place] [id number] [address] [place] [phone] 14 Aug, 2015 [facility] [address] [place] [id number] [place] [phone] Aug, Headache R51 [facility] [address] [place] [id number] [place] [phone] 08 Aug, 2015 Abnormal computed tomography angiography of head R93.0 [facility] [address] [place] [id number] [place] [phone] [address], [address] of the head R93. 0 [facility] [address] [place] [id number] [address] [place] [id number] Aug, Headache R51 ; Nausea R11.0 and Forgetfulness R68.89 [facility] [address] [place] [id number] [address] [place] [id number] Aug, Mental disor NOS oth dis F99 ; Unspecified mood [affective] disorder F39 and Anxiety disorder, unspecified F41.9 [facility] [address] [place] [id number] [address] [place] [phone] Aug, [facility] [address] [place] [id number] [address] [place] [phone] Aug, [facility] [address] [place] [id number] [address] [place] [id number] Aug, Encounter for Depo-Provera c ontraception Z30.42 [facility] [address] [facility] [id number] [address] [place] [id number] Jul, [facility] [address] [place] [id number] [address] [place] [phone] Jul, Contusion of unspecified fin laura without damage to nail, subsequent encounter S60.00XD [facility] [address] [facility] [id number] [address] [place] [phone] May, [facility] [address] [facility] [id number] [address] [place] [phone] May, [facility] [address] [place] [id number] [address] [place] [id number] 16 May, 2015 Dental examination Z01.20 [facility] [address] [place] [address] May, Hematuria R31.9 [facility] [address] [place] [id number] [address] [place] [phone] May, [facility] [address] [phone] May, Generalized anxiety disorder F41.1 [facility] [address] [place] [phone] May, [facility] [address] [place] [phone] May, [facility] [address] [place] [id number] [address] [place] [phone] May, [facility] [address] [place] [id number] [address] [place] [phone] Mar, Upper respiratory tract infe ction, unspecified upper respiratory infection J06.9 ; Anaphylaxis, subsequent encounter T78.2XXD ; Encounter for Depo-Provera contraception Z30.42 and Encounter for surveillance of injectable contraceptive Z30.42 [facility] [address] [place] [id number] [address] [place] [phone] Mar, [facility] [address] [id number] [address] [place] [phone] Mar, [facility] [address] [id number] [address] [place] [phone] Mar, [facility] [address] [id number] [address] [place] [phone] Mar, [facility] [address] [id number] [address] [place] [id number] Mar, [facility] [address] [id number] [address] [place] [id number] Jan, [facility] [address] [id number] [address] [place] [phone] Jan, [facility] [address] [id number] [address] [place] [phone] Jan, [facility] [address] [id number] [address] [place] [id number] Dec, [facility] [address] [id number] [address] [place] [id number] Dec, Dental examination V72.2 [facility] [address] [id number] [address] [place] [id number] Dec, [facility] [address] [id number] [address] [place] [phone] Nov, [facility] [address] [id number] [address] [place] [id number] Nov, [facility] [address] [id number] [address] [place] [phone] Nov, Abdominal pain 789.00 and Na usea and vomiting 787.01 [facility] [address] [id number] [address] [place] [phone] Nov, UTI (lower urinary tract inf ection) 599.0 and Abdominal pain 789.00 [facility] [address] [id number] [address] [place] [phone] October, [facility] [address] [id number] [address] [place] [id number] Sep, [facility] [address] [id number] [address] [place] [phone] Sep, [facility] [address] [id number] [address] [place] [id number] Aug, [facility] [address] [id number] [address] [place] [phone] Aug, [facility] [address] [id number] [address] [place] [phone] Aug, [facility] [address] [id number] [address] [place] [id number] Aug, [facility] [address] [id number] [address] [place] [id number] Aug, [facility] [address] [id number] [address] [place] [id number] Aug, [facility] [address] [id number] [address] [place] [id number] Aug, [facility] [address] [id number] [address] [place] [phone] Aug, [facility] [address] [id number] [address] [place] [phone] Jul, [facility] [address] [id number] [address] [place] [id number] Jul, [facility] [address] [id number] [address] [place] [id number] Jul, [facility] [address] [id number] [address] [place] [address] Jul, [facility] [address] [id number] [address] [place] [address], [place] [address] Jul, [facility] [address] [id number] [address] [place] [address], [place] [address] Jul, [facility] [address] [id number] [address] [place] [address], [place] [address] Jul, [facility] [address] [id number] [address] [place] [address], [place] [address] Jul, [facility] [address] [id number] [address] [place] [address], [place] [address] Jul, [facility] [address] [id number] [address] [place] [address], [place] [address] Jul, [facility] [address] [id number] [address] [place] [address], [place] [address] Jul, [facility] [address] [id number] [address] [place] [address], [place] [address] Jul, [facility] [address] [id number] [address] [place] [address], [place] [address] May, [facility] [address] [id number] [address] [place] [address], [place] [address] May, [facility] [address] [id number] [address] [place] [address], [place] [address] May, [facility] [address] [id number] [address] [place] [address], [place] [address] May, [facility] [address] [id number] [address] [place] [address], [place] [address] May, [facility] [address] [id number] [address] [place] [address], [place] [address] May, [facility] [address] [id number] [address] [place] [address], [place] [address] May, [facility] [address] [id number] [address] [place] [address], [place] [address] May, [facility] [address] [id number] [address] [place] [address], [place] [address] May, [facility] [address] [id number] [address] [place] [address], [place] [address] May, [facility] [address] [id number] [address] [place] [address], [place] [address] May, [facility] [address] [id number] [address] [place] [address], [place] [address] May, [facility] [address] [id number] [address] [place] [address], [place] [address] May, [facility] [address] [id number] [address] [place] [address], [place] [address] May, [facility] [address] [id number] [address] [place] [address], [place] [address] May, [facility] [address] [id number] [address] [place] [address], [place] [address] May, [facility] [address] [id number] [address] [place] [address], [place] [address] May, [facility] [address] [id number] [address] [place] [address], [place] [address] May, [facility] [address] [id number] [address] [place] [address], [place] [address] May, [facility] [address] [id number] [address] [place] [address], [place] [address] May, [facility] [address] [id number] [address] [place] [address], [place] [address] May, [facility] [address] [id number] [address] [place] [address], [place] [address] May, [facility] [address] [id number] [address] [place] [address], [place] [address] 15 May, 2014 [facility] [address] [id number] [address] [place] [address], [place] [address] 15 May, 2014 [facility] [address] [id number] [address] [place] [address], [place] [address] May, [facility] [address] [id number] [address] [place] [address], [place] [address] May, [facility] [address] [id number] [address] [place] [address], [place] [address] May, [facility] [address] [id number] [address] [place] [address], [place] [address] May, [facility] [address] [id number] [address] [place] [address], [place] [address] May, [facility] [address] [id number] [address] [place] [address], [place] [address] May, [facility] [address] [id number] [address] [place] [address], [place] [address] May, [facility] [address] [id number] [address] [place] [address], [place] [address] May, [facility] [address] [id number] [address] [place] [address], [place] [address] May, [facility] [address] [id number] [address] [place] [address], [place] [address] May, [facility] [address] [id number] [address] [place] [address], [place] [address] May, [facility] [address] [id number] [address] [place] [address], [place] [address] Mar, [facility] [address] [id number] [address] [place] [address], [place] [address] Mar, [facility] [address] [id number] [address] [place] [address], [place] [address] Mar, [facility] [address] [id number] [address] [place] [address], [place] [address] Mar, [facility] [address] [id number] [address] [place] [address], [place] [address] Mar, [facility] [address] [id number] [address] [place] [address], [place] [address] Mar, [facility] [address] [id number] [address] [place] [address], [place] [address] Mar, [facility] [address] [id number] [address] [place] [address], [place] [address] Mar, [facility] [address] [id number] [address] [place] [address], [place] [address] Mar, [facility] [address] [id number] [address] [place] [address], [place] [address] Mar, [facility] [address] [id number] [address] [place] [address], [place] [address] Mar, [facility] [address] [id number] [address] [place] [address], [place] [address] Mar, [facility] [address] [id number] [address] [place] [address], [place] [address] Mar, [facility] [address] [id number] [address] [place] [address], [place] [address] Mar, [facility] [address] [id number] [address] [place] [address], [place] [address] Jan, [facility] [address] [id number] [address] [place] [address], [place] [address] Jan, [facility] [address] [id number] [address] [place] [address], [place] [address] Jan, [facility] [address] [id number] [address] [place] [address], [place] [address] Jan, [facility] [address] [id number] [address] [place] [address], [place] [address] Jan, [facility] [address] [id number] [address] [place] [address], [place] [address] Jan, [facility] [address] [id number] [address] [place] [address], [place] [address] Jan, [facility] [address] [id number] [address] [place] [address], [place] [address] Jan, [facility] [address] [id number] [address] [place] [address], [place] [address] Jan, [facility] [address] [id number] [address] [place] [address], [place] [address] Dec, [facility] [address] [id number] [address] [place] [address], [place] [address] Dec, [facility] [address] [id number] [address] [place] [address], [place] [address] Dec, [facility] [address] [id number] [address] [place] [address], [place] [address] Dec, [facility] [address] [id number] [address] [place] [address], [place] [address] Dec, [facility] [address] [id number] [address] [place] [address], [place] [address] Dec, [facility] [address] [id number] [address] [place] [address], [place] [address] Dec, [facility] [address] [id number] [address] [place] [address], [place] [address] Dec, [facility] [address] [id number] [address] [place] [address], [place] [address] Dec, [facility] [address] [id number] [address] [place] [address], [place] [address] October, [facility] [address] [id number] [address] [place] [address], [place] [address] October, [facility] [address] [id number] [address] [place] [address], [place] [address] Sep, [facility] [address] [id number] [address] [place] [address], [place] [address] 15 Sep, 2013 [facility] [address] [id number] [address] [place] [address], [place] [address] 07 Aug, 2013 [facility] [address] [id number] [address] [place] [address], [place] [address] 07 Aug, 2013 [facility] [address] [id number] [address] [place] [address], [place] [address] 07 Aug, 2013 [facility] [address] [id number] [address] [place] [address], [place] [address] 07 Aug, 2013 [facility] [address] [id number] [address] [place] [address], [place] [address] 17 Aug, 2013 [facility] [address] [id number] [address] [place] [address], [place] [address] 17 Aug, 2013 [facility] [address] [id number] [address] [place] [address], [place] [address] 14 Aug, 2013 [facility] [address] [id number] [address] [place] [address], [place] [address] 07 Aug, 2013 [facility] [address] [id number] [address] [place] [address], [place] [address] 07 Aug, 2013 [facility] [address] [id number] [address] [place] [address], [place] [address] Aug, [facility] [address] [id number] [address] [place] [address], [place] [address] Aug, [facility] [address] [id number] [address] [place] [address], [place] [address] Jul, [facility] [address] [id number] [address] [place] [address], [place] [address] Jul, [facility] [address] [id number] [address] [place] [address], [place] [address] May, [facility] [address] [id number] [address] [place] [address], [place] [address] May, [facility] [address] [id number] [address] [place] [address], [place] [address] May, [facility] [address] [id number] [address] [place] [address], [place] [address] May, [facility] [address] [id number] [address] [place] [address], [place] [address] May, [facility] [address] [id number] [address] [place] [address], [place] [address] May, [facility] [address] [id number] [address] [place] [address], [place] [address] May, [facility] [address] [id number] [address] [place] [address], [place] [address] May, [facility] [address] [id number] [address] [place] [address], [place] [address] May, [facility] [address] [id number] [address] [place] [address], [place] [address] May, [facility] [address] [id number] [address] [place] [address], [place] [address] May, [facility] [address] [id number] [address] [place] [address], [place] [address] May, [facility] [address] [id number] [address] [place] [address] May, [facility] [address] [id number] [address] [place] [address] May, [facility] [address] [id number] [address] [place] [address], [place] [address] May, [facility] [address] [id number] [address] [place] [address], [place] [address] May, [facility] [address] [id number] [address] [place] [address], [place] [address] May, [facility] [address] [id number] [address] [place] [address], [place] [address] 18 May, 2013 [facility] [address] [id number] [address] [place] [address], [place] [address] 16 May, 2013 [facility] [address] [id number] [address] [place] [address], [place] [address] 16 May, 2013 [facility] [address] [id number] [address] [place] [address], [place] [address] May, [facility] [address] [id number] [address] [place] [address], [place] [address] May, [facility] [address] [id number] [address] [place] [address], [place] [address] May, [facility] [address] [id number] [address] [place] [address], [place] [address] May, [facility] [address] [id number] [address] [place] [address], [place] [address] May, [facility] [address] [id number] [address] [place] [address], [place] [address] May, [facility] [address] [id number] [address] [place] [address], [place] [address] May, [facility] [address] [id number] [address] [place] [address], [place] [address] 07 May, 2013 [facility] [address] [id number] [address] [place] [address], [place] [address] May, [facility] [address] [id number] [address] [place] [address], [place] [address] May, [facility] [address] [id number] [address] [place] [address], [place] [address] Mar, [facility] [address] [id number] [address] [place] [address], [place] [address] Mar, [facility] [address] [id number] [address] [place] [address], [place] [address] Mar, [facility] [address] [id number] [address] [place] [address], [place] [address] 31 Mar, 2012 [facility] [address] [id number] [address] [place] [address], [place] [address] 30 Mar, 2013 [facility] [address] [id number] [address] [place] [address], [place] [address] Mar, [facility] [address] [id number] [address] [place] [address], [place] [address] Mar, [facility] [address] [id number] [address] [place] [address], [place] [address] Mar, [facility] [address] [id number] [address] [place] [address], [place] [address] Mar, [facility] [address] [id number] [address] [place] [address], [place] [address] Mar, [facility] [address] [id number] [address] [place] [address] Mar, [facility] [address] [id number] [address] [place] [address], [place] [address] Mar, [facility] [address] [id number] [address] [place] [address] Mar, [facility] [address] [id number] [address] [place] [address] Mar, [facility] [address] [id number] [address] [place] [address] Mar, [facility] [address] [id number] [address] [place] [address] Mar, [facility] [address] [id number] [address] [place] [address] Mar, [facility] [address] [id number] [address] [place] [id number] 18 Mar, 2013 [facility] [address] [id number] [address] [place] [id number] 18 Mar, 2013 [facility] [address] [id number] [address] [place] [address], [place] [address] 18 Mar, 2013 [facility] [address] [id number] [address] [place] [address] 18 Mar, 2013 [facility] [address] [id number] [address] [place] [address], [place] [address] 14 Mar, 2013 [facility] [address] [id number] [address] [place] [id number] 14 Mar, 2013 [facility] [address] [id number] [address] [place] [address], [place] [address] 10 Mar, 2013 [facility] [address] [id number] [address] [place] [id number] 18 Mar, 2013 [facility] [address] [id number] [address] [place] [id number] 12 Mar, 2013 [facility] [address] [id number] [address] [place] [id number] 11 Mar, 2013 [facility] [address] [id number] [address] [place] [address] Jan, [facility] [address] [id number] [address] [place] [id number] October, [facility] [address] [id number] [address] [place] [id number] Sep, [facility] [address] [id number] [address] [place] [id number] 15 Sep, 2012 [facility] [address] [id number] [address] [place] [id number] Aug, [facility] [address] [id number] [address] [place] [id number] 06 Aug, 2012 [facility] [address] [id number] [address] [place] [phone] Aug, [facility] [address] [id number] [address] [place] [address], [place] [address] 17 Jul, 2012 [facility] [address] [id number] [address] [place] [address], [place] [address] 19 May, 2012 [facility] [address] [id number] [address] [place] [address], [place] [address] 19 May, 2012 [facility] [address] [id number] [address] [place] [address], [place] [address] 18 May, 2012 [facility] [address] [id number] [address] [place] [address], [place] [address] 18 May, 2012 [facility] [address] [id number] [address] [place] [address], [place] [address] 19 Mar, 2012 [facility] [address] [id number] [address] [place] [address], [place] [address] 19 Mar, 2012 [facility] [address] [id number] [address] [place] [address], [place] [address] 16 Mar, 2012 [facility] [address] [id number] [address] [place] [address], [place] [address] 25 Mar, 2012 [facility] [address] [id number] [address] [place] [address], [place] [address] 19 Mar, 2012 [facility] [address] [id number] [address] [place] [address], [place] [address] 13 Mar, 2012 [facility] [address] [id number] [address] [place] [address], [place] [address] 07 Mar, 2012 [facility] [address] [id number] [address] [place] [address], [place] [address] 30 Jan, 2012 [facility] [address] [id number] [address] [place] [address], [place] [address] 28 Jan, 2012 [facility] [address] [id number] [address] [place] [address], [place] [address] 20 Jan, 2012 [facility] [address] [id number] [address] [place] [address], [place] [address] Jan, [facility] [address] [id number] [address] [place] [address], [place] [address] Jan, [facility] [address] [id number] [address] [place] [address], [place] [address] Jan, [facility] [address] [id number] [address] [place] [address], [place] [address] Jan, [facility] [address] [id number] [address] [place] [address], [place] [address] Jan, [facility] [address] [id number] [address] [place] [address], [place] [address] Jan, [facility] [address] [id number] [address] [place] [address], [place] [address] Jan, [facility] [address] [id number] [address] [place] [address], [place] [address] Jan, [facility] [address] [id number] [address] [place] [address], [place] [address] Jan, [facility] [address] [id number] [address] [place] [address], [place] [address] Jan, [facility] [address] [id number] [address] [place] [address], [place] [address] Jan, [facility] [address] [id number] [address] [place] [address], [place] [address] Jan, [facility] [address] [id number] [address] [place] [address], [place] [address] Jan, [facility] [address] [id number] [address] [place] [address], [place] [address] Dec, [facility] [address] [id number] [address] [place] [address], [place] [address] Dec, [facility] [address] [id number] [address] [place] [address], [place] [address] Nov, [facility] [address] [id number] [address] [place] [address], [place] [address] 08 Nov, 2011 [facility] [address] [id number] [address] [place] [address], [place] [address] October, [facility] [address] [id number] [address] [place] [address], [place] [address] October, [facility] [address] [id number] [address] [place] [address], [place] [address] October, [facility] [address] [id number] [address] [place] [address], [place] [address] Sep, [facility] [address] [id number] [address] [place] [address], [place] [address] Sep, [facility] [address] [id number] [address] [place] [address], [place] [address] 30 Aug, 2011 [facility] [address] [id number] [address] [place] [address], [place] [address] 28 Aug, 2011 [facility] [address] [id number] [address] [place] [address], [place] [address] 26 Aug, 2011 [facility] [address] [id number] [address] [place] [address], [place] [address] 19 Aug, 2011 [facility] [address] [id number] [address] [place] [address], [place] [address] Aug, [facility] [address] [id number] [address] [place] [address], [place] [address] 14 Aug, 2011 [facility] [address] [id number] [address] [place] [address], [place] [address] 07 Aug, 2011 [facility] [address] [id number] [address] [place] [address], [place] [address] Jul, [facility] [address] [id number] [address] [place] [address], [place] [address] Jul, [facility] [address] [id number] [address] [place] [address], [place] [address] Jul, [facility] [address] [id number] [address] [place] [address], [place] [address] May, [facility] [address] [id number] [address] [place] [address], [place] [address] May, [facility] [address] [id number] [address] [place] [address], [place] [address] May, [facility] [address] [id number] [address] [place] [address], [place] [address] May, [facility] [address] [id number] [address] [place] [address], [place] [address] May, [facility] [address] [id number] [address] [place] [address], [place] [address] May, [facility] [address] [id number] [address] [place] [address], [place] [address] May, [facility] [address] [id number] [address] [place] [address], [place] [address] Mar, [facility] [address] [id number] [address] [place] [address], [place] [address] Mar, [facility] [address] [id number] [address] [place] [phone] Mar, [facility] [address] [id number] [address] [place] [id number] 15 Mar, 2011 [facility] [address] [id number] [address] [place] [id number] Mar, [facility] [address] [id number] [address] [place] [address], [place] [id number] Mar, [facility] [address] [id number] [address] [place] [phone] Jan, [facility] [address] [id number] [address] [place] [phone] 31 May, 2009 [facility] [address] [id number] [address] [place] [phone] May, [facility] [address] [facility] [id number] [address] [place] [phone] May, [facility] [address] [facility] [id number] [address] [place] [phone] May, [facility] [address] [facility] [id number] [address] [place] [phone] May, [facility] [address] [facility] [id number] [address] [place] [phone] May, [facility] [address] [facility] [id number] [address] [place] [phone] Mar, [facility] [address] [facility] [id number] [address] [place] [id number] Sep, IMMUNIZATIONS No Known Immunizations SOCIAL HISTORY [...]
--- OUTSIDE RECORDS SUMMARY | 2019-12-30 23:31 | XMS REPORT ---
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 [facility] [address] [facility] [id number] [address] [place] [address] Jan, Carpal tunnel syndrome, righ t upper limb G56.01 [facility] [address] [facility] [id number] [address] [place] [phone] Jan, Bilateral otitis media, unsp ecified chronicity, unspecified otitis media type H66.93 [facility] [address] [facility] [id number] [address] [place] [address] Jan, Lumbago with sciatica, left side M54.42 [facility] [address] [facility] [id number] [address] [place] [address] Jan, [facility] [address] [facility] [id number] [address] [place] [phone] Jan, [facility] [address] [facility] [id number] [address] [place] [address] Jan, Sore throat J02.9 ; Carpal t unnel syndrome, left upper limb G56.02 and Carpal tunnel syndrome, right upper limb G56.01 [facility] [address] [facility] [id number] [address] [place] [phone] Dec, [facility] [address] [facility] [id number] [address] [place] [phone] Dec, [facility] [address] [facility] [id number] [address] [place] [phone] Dec, [facility] [address] [id number] [address] [place] [phone] Dec, [facility] [address] [id number] [address] [place] [address] Dec, Lumbago with sciatica, left side M54.42 [facility] [address] [id number] [address] [place] [address] Dec, Anxiety F41.9 [facility] [address] [id number] [address] [place] [address] Dec, Tremor R25.1 ; Back pain wit h right-sided radiculopathy M54.10 and Headache R51 [facility] [address] [id number] [address] [place] [phone] Dec, [facility] [address] [id number] [address] [place] [phone] Dec, [facility] [address] [id number] [address] [place] [address] Dec, Lumbago with sciatica, left side M54.42 [facility] [address] [id number] [address] [place] [address] Dec, Dizziness R42 [facility] [address] [id number] [address] [place] [address] Nov, [facility] [address] [id number] [address] [place] [address] Nov, Lumbago with sciatica, left side M54.42 and Lumbago with sciatica, right side M54.41 [facility] [address] [id number] [address] [place] [address] Nov, Anxiety F41.9 [facility] [address] [id number] [address] [place] [address] Nov, [facility] [address] [id number] [address] [place] [address] Nov, Headache R51 [facility] [address] [facility] [id number] [address] [place] [address] October, Encounter for Depo-Provera c ontraception Z30.42 [facility] [address] [facility] [id number] [address] [place] [address] October, Anxiety F41.9 [facility] [address] [facility] [id number] [address] [place] [address] October, Anxiety F41.9 [facility] [address] [facility] [id number] [address] [place] [phone] October, [facility] [address] [place] [id number] [place] [address] October, Vaginal yeast infection B37. 3 [facility] [address] [facility] [id number] [address] [place] [address] October, [facility] [address] [facility] [id number] [address] [place] [phone] October, Headache R51 [facility] [address] [address] Sep, [facility] [address] [place] [id number] [address] [place] [phone] Sep, [facility] [address] [facility] [id number] [address] [place] [phone] Sep, Headache R51 [facility] [address] [facility] [id number] [address] [place] [phone] Sep, [facility] [address] [place] [id number] [address] [place] [address] Sep, Headache R51 [facility] [address] [facility] [id number] [address] [place] [address] Aug, 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 and Headache R51 [facility] [address] [facility] [id number] [address] [place] [address] 24 Aug, 2015 [facility] [address] [facility] [id number] [address] [place] [address] Aug, Headache R51 ; Forgetfulness R68.[address] scan, head R93.0 [facility] [address] [facility] [id number] [address] [place] [id number] 16 Aug, 2015 [facility] [address] [place] [id number] [place] [phone] 15 Aug, 2015 [facility] [address] [place] [id number] [address] [place] [phone] 14 Aug, 2015 [facility] [address] [place] [id number] [place] [address] Aug, Headache R51 [facility] [address] [place] [id number] [place] [phone] 08 Aug, 2015 Abnormal computed tomography angiography of head R93.0 [facility] [address] [place] [id number] [place] [address] Aug, [address] of the head R93. 0 [facility] [address] [place] [id number] [address] [place] [address] Aug, Headache R51 ; Nausea R11.0 and Forgetfulness R68.89 [facility] [address] [place] [id number] [address] [place] [address] Aug, Mental disor NOS oth dis F99 ; Unspecified mood [affective] disorder F39 and Anxiety disorder, unspecified F41.9 [facility] [address] [place] [id number] [address] [place] [address] Aug, [facility] [address] [place] [id number] [address] [place] [address] Aug, [facility] [address] [place] [id number] [address] [place] [address] Aug, Encounter for Depo-Provera c ontraception Z30.42 [facility] [address] [facility] [id number] [address] [place] [address] Jul, [facility] [address] [place] [id number] [address] [place] [address] Jul, Contusion of unspecified fin laura without damage to nail, subsequent encounter S60.00XD [facility] [address] [facility] [id number] [address] [place] [address] May, [facility] [address] [facility] [id number] [address] [place] [address] May, [facility] [address] [place] [id number] [address] [place] [id number] 16 May, 2015 Dental examination Z01.20 [facility] [address] [place] [address] May, Hematuria R31.9 [facility] [address] [place] [id number] [address] [place] [address] May, [facility] [address] [address] May, Generalized anxiety disorder F41.1 [facility] [address] [place] [address] May, [facility] [address] [place] [address] May, [facility] [address] [place] [id number] [address] [place] [address] May, [facility] [address] [place] [id number] [address] [place] [address] Mar, Upper respiratory tract infe ction, unspecified upper respiratory infection J06.9 ; Anaphylaxis, subsequent encounter T78.2XXD ; Encounter for Depo-Provera contraception Z30.42 and Encounter for surveillance of injectable contraceptive Z30.42 [facility] [address] [place] [id number] [address] [place] [address] Mar, [facility] [address] [id number] [address] [place] [phone] Mar, [facility] [address] [id number] [address] [place] [phone] Mar, [facility] [address] [id number] [address] [place] [address] Mar, [facility] [address] [id number] [address] [place] [phone] Mar, [facility] [address] [id number] [address] [place] [phone] Jan, [facility] [address] [id number] [address] [place] [phone] Jan, [facility] [address] [id number] [address] [place] [address] Jan, [facility] [address] [id number] [address] [place] [address] Dec, [facility] [address] [id number] [address] [place] [address] [id number] Dec, Dental examination V72.2 [facility] [address] [id number] [address] [place] [address] Dec, [facility] [address] [id number] [address] [place] [phone] Nov, [facility] [address] [id number] [address] [place] [address] Nov, [facility] [address] [id number] [address] [place] [phone] Nov, Abdominal pain 789.00 and Na usea and vomiting 787.01 [facility] [address] [id number] [address] [place] [address] Nov, UTI (lower urinary tract inf ection) 599.0 and Abdominal pain 789.00 [facility] [address] [id number] [address] [place] [address] October, [facility] [address] [id number] [address] [place] [phone] Sep, [facility] [address] [id number] [address] [place] [id number] Sep, [facility] [address] [id number] [address] [place] [id number] Aug, [facility] [address] [id number] [address] [place] [id number] Aug, [facility] [address] [id number] [address] [place] [id number] Aug, [facility] [address] [id number] [address] [place] [id number] Aug, [facility] [address] [id number] [address] [place] [id number] Aug, [facility] [address] [id number] [address] [place] [id number] Aug, [facility] [address] [id number] [address] [place] [id number] Aug, [facility] [address] [id number] [address] [place] [id number] Aug, [facility] [address] [id number] [address] [place] [id number] Jul, [facility] [address] [id number] [address] [place] [id number] Jul, [facility] [address] [id number] [address] [place] [id number] Jul, [facility] [address] [id number] [address] [place] [id number] Jul, [facility] [address] [id number] [address] [place] [address], [place] [address] Jul, [facility] [address] [id number] [address] [place] [address], [place] [address] Jul, [facility] [address] [id number] [address] [place] [address], [place] [address] Jul, [facility] [address] [id number] [address] [place] [address], [place] [address] Jul, [facility] [address] [id number] [address] [place] [address], [place] [address] Jul, [facility] [address] [id number] [address] [place] [address], [place] [address] Jul, [facility] [address] [id number] [address] [place] [address], [place] [address] Jul, [facility] [address] [id number] [address] [place] [address], [place] [address] Jul, [facility] [address] [id number] [address] [place] [address], [place] [address] May, [facility] [address] [id number] [address] [place] [address], [place] [address] May, [facility] [address] [id number] [address] [place] [address], [place] [address] May, [facility] [address] [id number] [address] [place] [address], [place] [address] May, [facility] [address] [id number] [address] [place] [address], [place] [address] May, [facility] [address] [id number] [address] [place] [address], [place] [address] May, [facility] [address] [id number] [address] [place] [address], [place] [address] May, [facility] [address] [id number] [address] [place] [address], [place] [address] May, [facility] [address] [id number] [address] [place] [address], [place] [address] May, [facility] [address] [id number] [address] [place] [address], [place] [address] May, [facility] [address] [id number] [address] [place] [address], [place] [address] May, [facility] [address] [id number] [address] [place] [address], [place] [address] May, [facility] [address] [id number] [address] [place] [address], [place] [address] May, [facility] [address] [id number] [address] [place] [address], [place] [address] May, [facility] [address] [id number] [address] [place] [address], [place] [address] May, [facility] [address] [id number] [address] [place] [address], [place] [address] May, [facility] [address] [id number] [address] [place] [address], [place] [address] May, [facility] [address] [id number] [address] [place] [address], [place] [address] May, [facility] [address] [id number] [address] [place] [address], [place] [address] May, [facility] [address] [id number] [address] [place] [address], [place] [address] May, [facility] [address] [id number] [address] [place] [address], [place] [address] May, [facility] [address] [id number] [address] [place] [address], [place] [address] May, [facility] [address] [id number] [address] [place] [address], [place] [address] 15 May, 2014 [facility] [address] [id number] [address] [place] [address], [place] [address] 15 May, 2014 [facility] [address] [id number] [address] [place] [address], [place] [address] May, [facility] [address] [id number] [address] [place] [address], [place] [address] May, [facility] [address] [id number] [address] [place] [address], [place] [address] May, [facility] [address] [id number] [address] [place] [address], [place] [address] May, [facility] [address] [id number] [address] [place] [address], [place] [address] May, [facility] [address] [id number] [address] [place] [address], [place] [address] May, [facility] [address] [id number] [address] [place] [address], [place] [address] May, [facility] [address] [id number] [address] [place] [address], [place] [address] May, [facility] [address] [id number] [address] [place] [address], [place] [address] May, [facility] [address] [id number] [address] [place] [address], [place] [address] May, [facility] [address] [id number] [address] [place] [address], [place] [address] May, [facility] [address] [id number] [address] [place] [address], [place] [address] Mar, [facility] [address] [id number] [address] [place] [address], [place] [address] Mar, [facility] [address] [id number] [address] [place] [address], [place] [address] Mar, [facility] [address] [id number] [address] [place] [address], [place] [address] Mar, [facility] [address] [id number] [address] [place] [address], [place] [address] Mar, [facility] [address] [id number] [address] [place] [address], [place] [address] Mar, [facility] [address] [id number] [address] [place] [address], [place] [address] Mar, [facility] [address] [id number] [address] [place] [address], [place] [address] Mar, [facility] [address] [id number] [address] [place] [address], [place] [address] Mar, [facility] [address] [id number] [address] [place] [address], [place] [address] Mar, [facility] [address] [id number] [address] [place] [address], [place] [address] Mar, [facility] [address] [id number] [address] [place] [address], [place] [address] Mar, [facility] [address] [id number] [address] [place] [address], [place] [address] Mar, [facility] [address] [id number] [address] [place] [address], [place] [address] Mar, [facility] [address] [id number] [address] [place] [address], [place] [address] Jan, [facility] [address] [id number] [address] [place] [address], [place] [address] Jan, [facility] [address] [id number] [address] [place] [address], [place] [address] Jan, [facility] [address] [id number] [address] [place] [address], [place] [address] Jan, [facility] [address] [id number] [address] [place] [address], [place] [address] Jan, [facility] [address] [id number] [address] [place] [address], [place] [address] Jan, [facility] [address] [id number] [address] [place] [address], [place] [address] Jan, [facility] [address] [id number] [address] [place] [address], [place] [address] Jan, [facility] [address] [id number] [address] [place] [address], [place] [address] Jan, [facility] [address] [id number] [address] [place] [address], [place] [address] Dec, [facility] [address] [id number] [address] [place] [address], [place] [address] Dec, [facility] [address] [id number] [address] [place] [address], [place] [address] Dec, [facility] [address] [id number] [address] [place] [address], [place] [address] Dec, [facility] [address] [id number] [address] [place] [address], [place] [address] Dec, [facility] [address] [id number] [address] [place] [address], [place] [address] Dec, [facility] [address] [id number] [address] [place] [address], [place] [address] Dec, [facility] [address] [id number] [address] [place] [address], [place] [address] Dec, [facility] [address] [id number] [address] [place] [address], [place] [address] Dec, [facility] [address] [id number] [address] [place] [address], [place] [address] October, [facility] [address] [id number] [address] [place] [address], [place] [address] October, [facility] [address] [id number] [address] [place] [address], [place] [address] Sep, [facility] [address] [id number] [address] [place] [address], [place] [address] 15 Sep, 2013 [facility] [address] [id number] [address] [place] [address], [place] [address] 07 Aug, 2013 [facility] [address] [id number] [address] [place] [address], [place] [address] 07 Aug, 2013 [facility] [address] [id number] [address] [place] [address], [place] [address] 07 Aug, 2013 [facility] [address] [id number] [address] [place] [address], [place] [address] 07 Aug, 2013 [facility] [address] [id number] [address] [place] [address], [place] [address] 17 Aug, 2013 [facility] [address] [id number] [address] [place] [address], [place] [address] 17 Aug, 2013 [facility] [address] [id number] [address] [place] [address], [place] [address] 14 Aug, 2013 [facility] [address] [id number] [address] [place] [address], [place] [address] 07 Aug, 2013 [facility] [address] [id number] [address] [place] [address], [place] [address] 07 Aug, 2013 [facility] [address] [id number] [address] [place] [address], [place] [address] Aug, [facility] [address] [id number] [address] [place] [address], [place] [address] Aug, [facility] [address] [id number] [address] [place] [address], [place] [address] Jul, [facility] [address] [id number] [address] [place] [address], [place] [address] Jul, [facility] [address] [id number] [address] [place] [address], [place] [address] May, [facility] [address] [id number] [address] [place] [address], [place] [address] May, [facility] [address] [id number] [address] [place] [address], [place] [address] May, [facility] [address] [id number] [address] [place] [address], [place] [address] May, [facility] [address] [id number] [address] [place] [address], [place] [address] May, [facility] [address] [id number] [address] [place] [address], [place] [address] May, [facility] [address] [id number] [address] [place] [address], [place] [address] May, [facility] [address] [id number] [address] [place] [address], [place] [address] May, [facility] [address] [id number] [address] [place] [address], [place] [address] May, [facility] [address] [id number] [address] [place] [address], [place] [address] May, [facility] [address] [id number] [address] [place] [address], [place] [address] May, [facility] [address] [id number] [address] [place] [address], [place] [address] May, [facility] [address] [id number] [address] [place] [address] May, [facility] [address] [id number] [address] [place] [address] May, [facility] [address] [id number] [address] [place] [address], [place] [address] May, [facility] [address] [id number] [address] [place] [address], [place] [address] May, [facility] [address] [id number] [address] [place] [address], [place] [address] May, [facility] [address] [id number] [address] [place] [address], [place] [address] 18 May, 2013 [facility] [address] [id number] [address] [place] [address], [place] [address] 16 May, 2013 [facility] [address] [id number] [address] [place] [address], [place] [address] 16 May, 2013 [facility] [address] [id number] [address] [place] [address], [place] [address] May, [facility] [address] [id number] [address] [place] [address], [place] [address] May, [facility] [address] [id number] [address] [place] [address], [place] [address] May, [facility] [address] [id number] [address] [place] [address], [place] [address] May, [facility] [address] [id number] [address] [place] [address], [place] [address] May, [facility] [address] [id number] [address] [place] [address], [place] [address] May, [facility] [address] [id number] [address] [place] [address], [place] [address] May, [facility] [address] [id number] [address] [place] [address], [place] [address] 07 May, 2013 [facility] [address] [id number] [address] [place] [address], [place] [address] May, [facility] [address] [id number] [address] [place] [address], [place] [address] May, [facility] [address] [id number] [address] [place] [address], [place] [address] Mar, [facility] [address] [id number] [address] [place] [address], [place] [address] Mar, [facility] [address] [id number] [address] [place] [address], [place] [address] Mar, [facility] [address] [id number] [address] [place] [address], [place] [address] 31 Mar, 2012 [facility] [address] [id number] [address] [place] [address], [place] [address] 30 Mar, 2013 [facility] [address] [id number] [address] [place] [address], [place] [address] Mar, [facility] [address] [id number] [address] [place] [address], [place] [address] Mar, [facility] [address] [id number] [address] [place] [address], [place] [address] Mar, [facility] [address] [id number] [address] [place] [address], [place] [address] Mar, [facility] [address] [id number] [address] [place] [address], [place] [address] Mar, [facility] [address] [id number] [address] [place] [address] Mar, [facility] [address] [id number] [address] [place] [address], [place] [address] Mar, [facility] [address] [id number] [address] [place] [address] Mar, [facility] [address] [id number] [address] [place] [address] Mar, [facility] [address] [id number] [address] [place] [address] Mar, [facility] [address] [id number] [address] [place] [address] Mar, [facility] [address] [id number] [address] [place] [address] Mar, [facility] [address] [id number] [address] [place] [address] 18 Mar, 2013 [facility] [address] [id number] [address] [place] [address] 18 Mar, 2013 [facility] [address] [id number] [address] [place] [address], [place] [address] 18 Mar, 2013 [facility] [address] [id number] [address] [place] [address] 18 Mar, 2013 [facility] [address] [id number] [address] [place] [address], [place] [address] 14 Mar, 2013 [facility] [address] [id number] [address] [place] [address] 14 Mar, 2013 [facility] [address] [id number] [address] [place] [address], [place] [address] 10 Mar, 2013 [facility] [address] [id number] [address] [place] [address] 18 Mar, 2013 [facility] [address] [id number] [address] [place] [address] 12 Mar, 2013 [facility] [address] [id number] [address] [place] [address] 11 Mar, 2013 [facility] [address] [id number] [address] [place] [address] Jan, [facility] [address] [id number] [address] [place] [address] October, [facility] [address] [id number] [address] [place] [address] Sep, [facility] [address] [id number] [address] [place] [address] 15 Sep, 2012 [facility] [address] [id number] [address] [place] [address] Aug, [facility] [address] [id number] [address] [place] [address] 06 Aug, 2012 [facility] [address] [id number] [address] [place] [address] Aug, [facility] [address] [id number] [address] [place] [address], [place] [address] 17 Jul, 2012 [facility] [address] [id number] [address] [place] [address], [place] [address] 19 May, 2012 [facility] [address] [id number] [address] [place] [address], [place] [address] 19 May, 2012 [facility] [address] [id number] [address] [place] [address], [place] [address] 18 May, 2012 [facility] [address] [id number] [address] [place] [address], [place] [address] 18 May, 2012 [facility] [address] [id number] [address] [place] [address], [place] [address] 19 Mar, 2012 [facility] [address] [id number] [address] [place] [address], [place] [address] 19 Mar, 2012 [facility] [address] [id number] [address] [place] [address], [place] [address] 16 Mar, 2012 [facility] [address] [id number] [address] [place] [address], [place] [address] 25 Mar, 2012 [facility] [address] [id number] [address] [place] [address], [place] [address] 19 Mar, 2012 [facility] [address] [id number] [address] [place] [address], [place] [address] 13 Mar, 2012 [facility] [address] [id number] [address] [place] [address], [place] [address] 07 Mar, 2012 [facility] [address] [id number] [address] [place] [address], [place] [address] 30 Jan, 2012 [facility] [address] [id number] [address] [place] [address], [place] [address] 28 Jan, 2012 [facility] [address] [id number] [address] [place] [address], [place] [address] 20 Jan, 2012 [facility] [address] [id number] [address] [place] [address], [place] [address] Jan, [facility] [address] [id number] [address] [place] [address], [place] [address] Jan, [facility] [address] [id number] [address] [place] [address], [place] [address] Jan, [facility] [address] [id number] [address] [place] [address], [place] [address] Jan, [facility] [address] [id number] [address] [place] [address], [place] [address] Jan, [facility] [address] [id number] [address] [place] [address], [place] [address] Jan, [facility] [address] [id number] [address] [place] [address], [place] [address] Jan, [facility] [address] [id number] [address] [place] [address], [place] [address] Jan, [facility] [address] [id number] [address] [place] [address], [place] [address] Jan, [facility] [address] [id number] [address] [place] [address], [place] [address] Jan, [facility] [address] [id number] [address] [place] [address], [place] [address] Jan, [facility] [address] [id number] [address] [place] [address], [place] [address] Jan, [facility] [address] [id number] [address] [place] [address], [place] [address] Jan, [facility] [address] [id number] [address] [place] [address], [place] [address] Dec, [facility] [address] [id number] [address] [place] [address], [place] [address] Dec, [facility] [address] [id number] [address] [place] [address], [place] [address] Nov, [facility] [address] [id number] [address] [place] [address], [place] [address] 08 Nov, 2011 [facility] [address] [id number] [address] [place] [address], [place] [address] October, [facility] [address] [id number] [address] [place] [address], [place] [address] October, [facility] [address] [id number] [address] [place] [address], [place] [address] October, [facility] [address] [id number] [address] [place] [address], [place] [address] Sep, [facility] [address] [id number] [address] [place] [address], [place] [address] Sep, [facility] [address] [id number] [address] [place] [address], [place] [address] 30 Aug, 2011 [facility] [address] [id number] [address] [place] [address], [place] [address] 28 Aug, 2011 [facility] [address] [id number] [address] [place] [address], [place] [address] 26 Aug, 2011 [facility] [address] [id number] [address] [place] [address], [place] [address] 19 Aug, 2011 [facility] [address] [id number] [address] [place] [address], [place] [address] Aug, [facility] [address] [id number] [address] [place] [address], [place] [address] 14 Aug, 2011 [facility] [address] [id number] [address] [place] [address], [place] [address] 07 Aug, 2011 [facility] [address] [id number] [address] [place] [address], [place] [address] Jul, [facility] [address] [id number] [address] [place] [address], [place] [address] Jul, [facility] [address] [id number] [address] [place] [address], [place] [address] Jul, [facility] [address] [id number] [address] [place] [address], [place] [address] May, [facility] [address] [id number] [address] [place] [address], [place] [address] May, [facility] [address] [id number] [address] [place] [address], [place] [address] May, [facility] [address] [id number] [address] [place] [address], [place] [address] May, [facility] [address] [id number] [address] [place] [address], [place] [address] May, [facility] [address] [id number] [address] [place] [address], [place] [address] May, [facility] [address] [id number] [address] [place] [address], [place] [address] May, [facility] [address] [id number] [address] [place] [address], [place] [address] Mar, [facility] [address] [id number] [address] [place] [address], [place] [address] Mar, [facility] [address] [id number] [address] [place] [address] Mar, [facility] [address] [id number] [address] [place] [id number] 15 Mar, 2011 [facility] [address] [id number] [address] [place] [address] Mar, [facility] [address] [id number] [address] [place] [address], [place] [address] Mar, [facility] [address] [id number] [address] [place] [address] Jan, [facility] [address] [id number] [address] [place] [address] 31 May, 2009 [facility] [address] [id number] [address] [place] [address] May, [facility] [address] [facility] [id number] [address] [place] [address] May, [facility] [address] [facility] [id number] [address] [place] [address] May, [facility] [address] [facility] [id number] [address] [place] [address] May, [facility] [address] [facility] [id number] [address] [place] [phone] May, [facility] [address] [facility] [id number] [address] [place] [phone] Mar, [facility] [address] [facility] [id number] [address] [place] [phone] Sep, IMMUNIZATIONS No Known Immunizations SOCIAL HISTORY Never Assessed REASON FOR VISIT PLAN OF CARE VITAL SIGNS MEDICATIONS Unknown Medications RESULTS No Results PROCEDURES Procedure Date Ordered Result Body Site ASSAY OF INSULIN May 20, 2013 COMPREHEN METABOLIC PANEL May 20, 2013 VENIPUNCT, ROUTINE* May 20, 2013 INSTRUCTIONS MEDICATIONS ADMINISTERED No Known Medications MEDICAL [...]
--- OUTSIDE RECORDS SUMMARY | 2019-12-30 23:32 | XMS REPORT ---
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 Carpal tunnel syndrome, righ t upper limb G56.01 [facility] [address] [facility] [id number] [address] [place] [id number] Jan, Bilateral otitis media, unsp ecified chronicity, unspecified otitis media type H66.93 [facility] [address] [facility] [id number] [address] [place] [phone] Jan, Lumbago with sciatica, left side M54.42 [facility] [address] [facility] [id number] [address] [place] [id number] Jan, [facility] [address] [facility] [id number] [address] [place] [phone] Jan, [facility] [address] [facility] [id number] [address] [place] [id number] Jan, Sore throat J02.9 ; Carpal t unnel syndrome, left upper limb G56.02 and Carpal tunnel syndrome, right upper limb G56.01 [facility] [address] [facility] [id number] [address] [place] [phone] Dec, [facility] [address] [facility] [id number] [address] [place] [phone] Dec, [facility] [address] [facility] [id number] [address] [place] [phone] Dec, [facility] [address] [id number] [address] [place] [id number] Dec, [facility] [address] [id number] [address] [place] [phone] Dec, Lumbago with sciatica, left side M54.42 [facility] [address] [id number] [address] [place] [id number] Dec, Anxiety F41.9 [facility] [address] [id number] [address] [place] [phone] Dec, Tremor R25.1 ; Back pain wit h right-sided radiculopathy M54.10 and Headache R51 [facility] [address] [id number] [address] [place] [id number] Dec, [facility] [address] [id number] [address] [place] [phone] Dec, [facility] [address] [id number] [address] [place] [id number] Dec, Lumbago with sciatica, left side M54.42 [facility] [address] [id number] [address] [place] [id number] Dec, Dizziness R42 [facility] [address] [id number] [address] [place] [id number] Nov, [facility] [address] [id number] [address] [place] [id number] Nov, Lumbago with sciatica, left side M54.42 and Lumbago with sciatica, right side M54.41 [facility] [address] [id number] [address] [place] [phone] Nov, Anxiety F41.9 [facility] [address] [id number] [address] [place] [id number] Nov, [facility] [address] [id number] [address] [place] [id number] Nov, Headache R51 [facility] [address] [facility] [id number] [address] [place] [phone] October, Encounter for Depo-Provera c ontraception Z30.42 [facility] [address] [facility] [id number] [address] [place] [id number] October, Anxiety F41.9 [facility] [address] [facility] [id number] [address] [place] [id number] October, Anxiety F41.9 [facility] [address] [facility] [id number] [address] [place] [id number] October, [facility] [address] [place] [id number] [place] [phone] October, Vaginal yeast infection B37. 3 [facility] [address] [facility] [id number] [address] [place] [phone] October, [facility] [address] [facility] [id number] [address] [place] [phone] October, Headache R51 [facility] [address] [phone] Sep, [facility] [address] [place] [id number] [address] [place] [phone] Sep, [facility] [address] [facility] [id number] [address] [place] [id number] Sep, Headache R51 [facility] [address] [facility] [id number] [address] [place] [id number] Sep, [facility] [address] [place] [id number] [address] [place] [id number] Sep, Headache R51 [facility] [address] [facility] [id number] [address] [place] [phone] Aug, 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 and Headache R51 [facility] [address] [facility] [id number] [address] [place] [id number] 24 Aug, 2015 [facility] [address] [facility] [id number] [address] [place] [phone] Aug, Headache R51 ; Forgetfulness R68.[address] scan, head R93.0 [facility] [address] [facility] [id number] [address] [place] [id number] 16 Aug, 2015 [facility] [address] [place] [id number] [place] [id number] 15 Aug, 2015 [facility] [address] [place] [id number] [address] [place] [phone] 14 Aug, 2015 [facility] [address] [place] [id number] [place] [phone] Aug, Headache R51 [facility] [address] [place] [id number] [place] [phone] 08 Aug, 2015 Abnormal computed tomography angiography of head R93.0 [facility] [address] [place] [id number] [place] [phone] [address], [address] of the head R93. 0 [facility] [address] [place] [id number] [address] [place] [phone] Aug, Headache R51 ; Nausea R11.0 and Forgetfulness R68.89 [facility] [address] [place] [id number] [address] [place] [id number] Aug, Mental disor NOS oth dis F99 ; Unspecified mood [affective] disorder F39 and Anxiety disorder, unspecified F41.9 [facility] [address] [place] [id number] [address] [place] [phone] Aug, [facility] [address] [place] [id number] [address] [place] [id number] Aug, [facility] [address] [place] [id number] [address] [place] [id number] Aug, Encounter for Depo-Provera c ontraception Z30.42 [facility] [address] [facility] [id number] [address] [place] [id number] Jul, [facility] [address] [place] [id number] [address] [place] [id number] Jul, Contusion of unspecified fin laura without damage to nail, subsequent encounter S60.00XD [facility] [address] [facility] [id number] [address] [place] [phone] May, [facility] [address] [facility] [id number] [address] [place] [id number] May, [facility] [address] [place] [id number] [place] [id number] 16 May, 2015 Dental examination Z01.20 [facility] [address] [place] [phone] May, Hematuria R31.9 [facility] [address] [place] [id number] [address] [place] [id number] May, [facility] [address] [phone] May, Generalized anxiety disorder F41.1 [facility] [address] [place] [phone] May, [facility] [address] [place] [id number] May, [facility] [address] [id number] [address] [place] [id number] May, [facility] [address] [id number] [address] [place] [id number] Mar, Upper respiratory tract infe ction, unspecified upper respiratory infection J06.9 ; Anaphylaxis, subsequent encounter T78.2XXD ; Encounter for Depo-Provera contraception Z30.42 and Encounter for surveillance of injectable contraceptive Z30.42 [facility] [address] [id number] [address] [place] [id number] Mar, [facility] [address] [id number] [address] [place] [phone] Mar, [facility] [address] [id number] [address] [place] [id number] Mar, [facility] [address] [id number] [address] [place] [id number] Mar, [facility] [address] [id number] [address] [place] [phone] Mar, [facility] [address] [id number] [address] [place] [phone] Jan, [facility] [address] [id number] [address] [place] [phone] Jan, [facility] [address] [id number] [address] [place] [phone] Jan, [facility] [address] [id number] [address] [place] [id number] Dec, [facility] [address] [id number] [address] [place] [id number] Dec, Dental examination V72.2 [facility] [address] [id number] [address] [place] [id number] Dec, [facility] [address] [id number] [address] [place] [id number] Nov, [facility] [address] [id number] [address] [place] [id number] Nov, [facility] [address] [id number] [address] [place] [id number] Nov, Abdominal pain 789.00 and Na usea and vomiting 787.01 [facility] [address] [id number] [address] [place] [id number] Nov, UTI (lower urinary tract inf ection) 599.0 and Abdominal pain 789.00 [facility] [address] [id number] [address] [place] [id number] October, [facility] [address] [id number] [address] [place] [id number] Sep, [facility] [address] [id number] [address] [place] [phone] Sep, [facility] [address] [id number] [address] [place] [id number] Aug, [facility] [address] [id number] [address] [place] [id number] Aug, [facility] [address] [id number] [address] [place] [id number] Aug, [facility] [address] [id number] [address] [place] [id number] Aug, [facility] [address] [id number] [address] [place] [phone] Aug, [facility] [address] [id number] [address] [place] [id number] Aug, [facility] [address] [id number] [address] [place] [phone] Aug, [facility] [address] [id number] [address] [place] [phone] Aug, [facility] [address] [id number] [address] [place] [id number] Jul, [facility] [address] [id number] [address] [place] [id number] Jul, [facility] [address] [id number] [address] [place] [id number] Jul, [facility] [address] [id number] [address] [place] [id number] Jul, [facility] [address] [id number] [address] [place] [address], [place] [address] Jul, [facility] [address] [id number] [address] [place] [address], [place] [address] Jul, [facility] [address] [id number] [address] [place] [address], [place] [address] Jul, [facility] [address] [id number] [address] [place] [address], [place] [address] Jul, [facility] [address] [id number] [address] [place] [address], [place] [address] Jul, [facility] [address] [id number] [address] [place] [address], [place] [address] Jul, [facility] [address] [id number] [address] [place] [address], [place] [address] Jul, [facility] [address] [id number] [address] [place] [address], [place] [address] Jul, [facility] [address] [id number] [address] [place] [address], [place] [address] May, [facility] [address] [id number] [address] [place] [address], [place] [address] May, [facility] [address] [id number] [address] [place] [address], [place] [address] May, [facility] [address] [id number] [address] [place] [address], [place] [address] May, [facility] [address] [id number] [address] [place] [address], [place] [address] May, [facility] [address] [id number] [address] [place] [address], [place] [address] May, [facility] [address] [id number] [address] [place] [address], [place] [address] May, [facility] [address] [id number] [address] [place] [address], [place] [address] May, [facility] [address] [id number] [address] [place] [address], [place] [address] May, [facility] [address] [id number] [address] [place] [address], [place] [address] May, [facility] [address] [id number] [address] [place] [address], [place] [address] May, [facility] [address] [id number] [address] [place] [address], [place] [address] May, [facility] [address] [id number] [address] [place] [address], [place] [address] May, [facility] [address] [id number] [address] [place] [address], [place] [address] May, [facility] [address] [id number] [address] [place] [address], [place] [address] May, [facility] [address] [id number] [address] [place] [address], [place] [address] May, [facility] [address] [id number] [address] [place] [address], [place] [address] May, [facility] [address] [id number] [address] [place] [address], [place] [address] May, [facility] [address] [id number] [address] [place] [address], [place] [address] May, [facility] [address] [id number] [address] [place] [address], [place] [address] May, [facility] [address] [id number] [address] [place] [address], [place] [address] May, [facility] [address] [id number] [address] [place] [address], [place] [address] May, [facility] [address] [id number] [address] [place] [address], [place] [address] 15 May, 2014 [facility] [address] [id number] [address] [place] [address], [place] [address] 15 May, 2014 [facility] [address] [id number] [address] [place] [address], [place] [address] May, [facility] [address] [id number] [address] [place] [address], [place] [address] May, [facility] [address] [id number] [address] [place] [address], [place] [address] May, [facility] [address] [id number] [address] [place] [address], [place] [address] May, [facility] [address] [id number] [address] [place] [address], [place] [address] May, [facility] [address] [id number] [address] [place] [address], [place] [address] May, [facility] [address] [id number] [address] [place] [address], [place] [address] May, [facility] [address] [id number] [address] [place] [address], [place] [address] May, [facility] [address] [id number] [address] [place] [address], [place] [address] May, [facility] [address] [id number] [address] [place] [address], [place] [address] May, [facility] [address] [id number] [address] [place] [address], [place] [address] May, [facility] [address] [id number] [address] [place] [address], [place] [address] Mar, [facility] [address] [id number] [address] [place] [address], [place] [address] Mar, [facility] [address] [id number] [address] [place] [address], [place] [address] Mar, [facility] [address] [id number] [address] [place] [address], [place] [address] Mar, [facility] [address] [id number] [address] [place] [address], [place] [address] Mar, [facility] [address] [id number] [address] [place] [address], [place] [address] Mar, [facility] [address] [id number] [address] [place] [address], [place] [address] Mar, [facility] [address] [id number] [address] [place] [address], [place] [address] Mar, [facility] [address] [id number] [address] [place] [address], [place] [address] Mar, [facility] [address] [id number] [address] [place] [address], [place] [address] Mar, [facility] [address] [id number] [address] [place] [address], [place] [address] Mar, [facility] [address] [id number] [address] [place] [address], [place] [address] Mar, [facility] [address] [id number] [address] [place] [address], [place] [address] Mar, [facility] [address] [id number] [address] [place] [address], [place] [address] Mar, [facility] [address] [id number] [address] [place] [address], [place] [address] Jan, [facility] [address] [id number] [address] [place] [address], [place] [address] Jan, [facility] [address] [id number] [address] [place] [address], [place] [address] Jan, [facility] [address] [id number] [address] [place] [address], [place] [address] Jan, [facility] [address] [id number] [address] [place] [address], [place] [address] Jan, [facility] [address] [id number] [address] [place] [address], [place] [address] Jan, [facility] [address] [id number] [address] [place] [address], [place] [address] Jan, [facility] [address] [id number] [address] [place] [address], [place] [address] Jan, [facility] [address] [id number] [address] [place] [address], [place] [address] Jan, [facility] [address] [id number] [address] [place] [address], [place] [address] Dec, [facility] [address] [id number] [address] [place] [address], [place] [address] Dec, [facility] [address] [id number] [address] [place] [address], [place] [address] Dec, [facility] [address] [id number] [address] [place] [address], [place] [address] Dec, [facility] [address] [id number] [address] [place] [address], [place] [address] Dec, [facility] [address] [id number] [address] [place] [address], [place] [address] Dec, [facility] [address] [id number] [address] [place] [address], [place] [address] Dec, [facility] [address] [id number] [address] [place] [address], [place] [address] Dec, [facility] [address] [id number] [address] [place] [address], [place] [address] Dec, [facility] [address] [id number] [address] [place] [address], [place] [address] October, [facility] [address] [id number] [address] [place] [address], [place] [address] October, [facility] [address] [id number] [address] [place] [address], [place] [address] Sep, [facility] [address] [id number] [address] [place] [address], [place] [address] 15 Sep, 2013 [facility] [address] [id number] [address] [place] [address], [place] [address] 07 Aug, 2013 [facility] [address] [id number] [address] [place] [address], [place] [address] 07 Aug, 2013 [facility] [address] [id number] [address] [place] [address], [place] [address] 07 Aug, 2013 [facility] [address] [id number] [address] [place] [address], [place] [address] 07 Aug, 2013 [facility] [address] [id number] [address] [place] [address], [place] [address] 17 Aug, 2013 [facility] [address] [id number] [address] [place] [address], [place] [address] 17 Aug, 2013 [facility] [address] [id number] [address] [place] [address], [place] [address] 14 Aug, 2013 [facility] [address] [id number] [address] [place] [address], [place] [address] 07 Aug, 2013 [facility] [address] [id number] [address] [place] [address], [place] [address] 07 Aug, 2013 [facility] [address] [id number] [address] [place] [address], [place] [address] Aug, [facility] [address] [id number] [address] [place] [address], [place] [address] Aug, [facility] [address] [id number] [address] [place] [address], [place] [address] Jul, [facility] [address] [id number] [address] [place] [address], [place] [address] Jul, [facility] [address] [id number] [address] [place] [address], [place] [address] May, [facility] [address] [id number] [address] [place] [address], [place] [address] May, [facility] [address] [id number] [address] [place] [address], [place] [address] May, [facility] [address] [id number] [address] [place] [address], [place] [address] May, [facility] [address] [id number] [address] [place] [address], [place] [address] May, [facility] [address] [id number] [address] [place] [address], [place] [address] May, [facility] [address] [id number] [address] [place] [address], [place] [address] May, [facility] [address] [id number] [address] [place] [address], [place] [address] May, [facility] [address] [id number] [address] [place] [address], [place] [address] May, [facility] [address] [id number] [address] [place] [address], [place] [address] May, [facility] [address] [id number] [address] [place] [address], [place] [address] May, [facility] [address] [id number] [address] [place] [address], [place] [address] May, [facility] [address] [id number] [address] [place] [address] May, [facility] [address] [id number] [address] [place] [address] May, [facility] [address] [id number] [address] [place] [address], [place] [address] May, [facility] [address] [id number] [address] [place] [address], [place] [address] May, [facility] [address] [id number] [address] [place] [address], [place] [address] May, [facility] [address] [id number] [address] [place] [address], [place] [address] 18 May, 2013 [facility] [address] [id number] [address] [place] [address], [place] [address] 16 May, 2013 [facility] [address] [id number] [address] [place] [address], [place] [address] 16 May, 2013 [facility] [address] [id number] [address] [place] [address], [place] [address] May, [facility] [address] [id number] [address] [place] [address], [place] [address] May, [facility] [address] [id number] [address] [place] [address], [place] [address] May, [facility] [address] [id number] [address] [place] [address], [place] [address] May, [facility] [address] [id number] [address] [place] [address], [place] [address] May, [facility] [address] [id number] [address] [place] [address], [place] [address] May, [facility] [address] [id number] [address] [place] [address], [place] [address] May, [facility] [address] [id number] [address] [place] [address], [place] [address] 07 May, 2013 [facility] [address] [id number] [address] [place] [address], [place] [address] May, [facility] [address] [id number] [address] [place] [address], [place] [address] May, [facility] [address] [id number] [address] [place] [address], [place] [address] Mar, [facility] [address] [id number] [address] [place] [address], [place] [address] Mar, [facility] [address] [id number] [address] [place] [address], [place] [address] Mar, [facility] [address] [id number] [address] [place] [address], [place] [address] 31 Mar, 2012 [facility] [address] [id number] [address] [place] [address], [place] [address] 30 Mar, 2013 [facility] [address] [id number] [address] [place] [address], [place] [address] Mar, [facility] [address] [id number] [address] [place] [address], [place] [address] Mar, [facility] [address] [id number] [address] [place] [address], [place] [address] Mar, [facility] [address] [id number] [address] [place] [address], [place] [address] Mar, [facility] [address] [id number] [address] [place] [address], [place] [address] Mar, [facility] [address] [id number] [address] [place] [id number] Mar, [facility] [address] [id number] [address] [place] [address], [place] [address] Mar, [facility] [address] [id number] [address] [place] [id number] Mar, [facility] [address] [id number] [address] [place] [id number] Mar, [facility] [address] [id number] [address] [place] [id number] Mar, [facility] [address] [id number] [address] [place] [id number] Mar, [facility] [address] [id number] [address] [place] [id number] Mar, [facility] [address] [id number] [address] [place] [id number] 18 Mar, 2013 [facility] [address] [id number] [address] [place] [id number] 18 Mar, 2013 [facility] [address] [id number] [address] [place] [address], [place] [address] 18 Mar, 2013 [facility] [address] [id number] [address] [place] [id number] 18 Mar, 2013 [facility] [address] [id number] [address] [place] [address], [place] [address] 14 Mar, 2013 [facility] [address] [id number] [address] [place] [id number] 14 Mar, 2013 [facility] [address] [id number] [address] [place] [address], [place] [address] 10 Mar, 2013 [facility] [address] [id number] [address] [place] [id number] 18 Mar, 2013 [facility] [address] [id number] [address] [place] [id number] 12 Mar, 2013 [facility] [address] [id number] [address] [place] [id number] 11 Mar, 2013 [facility] [address] [id number] [address] [place] [id number] Jan, [facility] [address] [id number] [address] [place] [id number] October, [facility] [address] [id number] [address] [place] [id number] Sep, [facility] [address] [id number] [address] [place] [id number] 15 Sep, 2012 [facility] [address] [id number] [address] [place] [id number] Aug, [facility] [address] [id number] [address] [place] [id number] 06 Aug, 2012 [facility] [address] [id number] [address] [place] [id number] Aug, [facility] [address] [id number] [address] [place] [address], [place] [address] 17 Jul, 2012 [facility] [address] [id number] [address] [place] [address], [place] [id number] 19 May, 2012 [facility] [address] [id number] [address] [place] [address], [place] [id number] 19 May, 2012 [facility] [address] [id number] [address] [place] [address], [place] [id number] 18 May, 2012 [facility] [address] [id number] [address] [place] [address], [place] [id number] 18 May, 2012 [facility] [address] [id number] [address] [place] [address], [place] [id number] 19 Mar, 2012 [facility] [address] [id number] [address] [place] [address], [place] [id number] 19 Mar, 2012 [facility] [address] [id number] [address] [place] [address], [place] [id number] 16 Mar, 2012 [facility] [address] [id number] [address] [place] [address], [place] [id number] 25 Mar, 2012 [facility] [address] [id number] [address] [place] [address], [place] [id number] 19 Mar, 2012 [facility] [address] [id number] [address] [place] [address], [place] [id number] 13 Mar, 2012 [facility] [address] [id number] [address] [place] [address], [place] [id number] 07 Mar, 2012 [facility] [address] [id number] [address] [place] [address], [place] [id number] 30 Jan, 2012 [facility] [address] [id number] [address] [place] [address], [place] [id number] 28 Jan, 2012 [facility] [address] [id number] [address] [place] [address], [place] [id number] 20 Jan, 2012 [facility] [address] [id number] [address] [place] [address], [place] [id number] Jan, [facility] [address] [id number] [address] [place] [address], [place] [id number] Jan, [facility] [address] [id number] [address] [place] [address], [place] [id number] Jan, [facility] [address] [id number] [address] [place] [address], [place] [id number] Jan, [facility] [address] [id number] [address] [place] [address], [place] [id number] Jan, [facility] [address] [id number] [address] [place] [address], [place] [id number] Jan, [facility] [address] [id number] [address] [place] [address], [place] [id number] Jan, [facility] [address] [id number] [address] [place] [address], [place] [id number] Jan, [facility] [address] [id number] [address] [place] [address], [place] [id number] Jan, [facility] [address] [id number] [address] [place] [address], [place] [id number] Jan, [facility] [address] [id number] [address] [place] [address], [place] [id number] Jan, [facility] [address] [id number] [address] [place] [address], [place] [id number] Jan, [facility] [address] [id number] [address] [place] [address], [place] [id number] Jan, [facility] [address] [id number] [address] [place] [address], [place] [id number] Dec, [facility] [address] [id number] [address] [place] [address], [place] [id number] Dec, [facility] [address] [id number] [address] [place] [address], [place] [address] Nov, [facility] [address] [id number] [address] [place] [address], [place] [id number] 08 Nov, 2011 [facility] [address] [id number] [address] [place] [address], [place] [id number] October, [facility] [address] [id number] [address] [place] [address], [place] [id number] October, [facility] [address] [id number] [address] [place] [address], [place] [id number] October, [facility] [address] [id number] [address] [place] [address], [place] [id number] Sep, [facility] [address] [id number] [address] [place] [address], [place] [id number] Sep, [facility] [address] [id number] [address] [place] [address], [place] [id number] 30 Aug, 2011 [facility] [address] [id number] [address] [place] [address], [place] [id number] 28 Aug, 2011 [facility] [address] [id number] [address] [place] [address], [place] [id number] 26 Aug, 2011 [facility] [address] [id number] [address] [place] [address], [place] [id number] 19 Aug, 2011 [facility] [address] [id number] [address] [place] [address], [place] [address] Aug, [facility] [address] [id number] [address] [place] [address], [place] [id number] 14 Aug, [address] [facility] [address] [id number] [address] [place] [address], [place] [id number] 07 Aug, 2011 [facility] [address] [id number] [address] [place] [address], [place] [id number] Jul, [facility] [address] [id number] [address] [place] [address], [place] [id number] Jul, [facility] [address] [id number] [address] [place] [address], [place] [id number] Jul, [facility] [address] [id number] [address] [place] [address], [place] [id number] May, [facility] [address] [id number] [address] [place] [address], [place] [id number] May, [facility] [address] [id number] [address] [place] [address], [place] [id number] May, [facility] [address] [id number] [address] [place] [address], [place] [id number] May, [facility] [address] [id number] [address] [place] [address], [place] [id number] May, [facility] [address] [id number] [address] [place] [address], [place] [id number] May, [facility] [address] [id number] [address] [place] [address], [place] [id number] May, [facility] [address] [id number] [address] [place] [address], [place] [id number] Mar, [facility] [address] [id number] [address] [place] [address], [place] [id number] Mar, [facility] [address] [id number] [address] [place] [id number] Mar, [facility] [address] [id number] [address] [place] [id number] 15 Mar, 2011 [facility] [address] [id number] [address] [place] [id number] Mar, [facility] [address] [id number] [address] [place] [address], [place] [id number] Mar, [facility] [address] [id number] [address] [place] [id number] Jan, [facility] [address] [id number] [address] [place] [id number] 31 May, 2009 [facility] [address] [id number] [address] [place] [id number] May, [facility] [address] [facility] [id number] [address] [place] [id number] May, [facility] [address] [facility] [id number] [address] [place] [id number] May, [facility] [address] [facility] [id number] [address] [place] [id number] May, [facility] [address] [facility] [id number] [address] [place] [id number] May, [facility] [address] [facility] [id number] [address] [place] [id number] Mar, [facility] [address] [facility] [id number] [address] [place] [id number] Sep, IMMUNIZATIONS No Known Immunizations SOCIAL HISTORY [...]
--- OUTSIDE RECORDS SUMMARY | 2019-12-30 23:32 | XMS REPORT ---
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 [address] [facility] [id number] [address] [place] [address] Jan, [facility] [address] [id number] [address] [place] [address] Jan, [facility] [address] [facility] [id number] [address] [place] [phone] Jan, Carpal tunnel syndrome, righ t upper limb G56.01 [facility] [address] [facility] [id number] [address] [place] [phone] Jan, Bilateral otitis media, unsp ecified chronicity, unspecified otitis media type H66.93 [facility] [address] [facility] [id number] [address] [place] [address] Jan, Lumbago with sciatica, left side M54.42 [facility] [address] [facility] [id number] [address] [place] [phone] Jan, [facility] [address] [facility] [id number] [address] [place] [address] Jan, [facility] [address] [facility] [id number] [address] [place] [address] Jan, Sore throat J02.9 ; Carpal t unnel syndrome, left upper limb G56.02 and Carpal tunnel syndrome, right upper limb G56.01 [facility] [address] [facility] [id number] [address] [place] [phone] Dec, [facility] [address] [facility] [id number] [address] [place] [phone] Dec, [facility] [address] [facility] [id number] [address] [place] [address] Dec, [facility] [address] [id number] [address] [place] [address] Dec, [facility] [address] [id number] [address] [place] [address] Dec, Lumbago with sciatica, left side M54.42 [facility] [address] [id number] [address] [place] [address] Dec, Anxiety F41.9 [facility] [address] [id number] [address] [place] [address] Dec, Tremor R25.1 ; Back pain wit h right-sided radiculopathy M54.10 and Headache R51 [facility] [address] [id number] [address] [place] [phone] Dec, [facility] [address] [id number] [address] [place] [address] Dec, [facility] [address] [id number] [address] [place] [phone] Dec, Lumbago with sciatica, left side M54.42 [facility] [address] [id number] [address] [place] [address] Dec, Dizziness R42 [facility] [address] [id number] [address] [place] [address] Nov, [facility] [address] [id number] [address] [place] [address] Nov, Lumbago with sciatica, left side M54.42 and Lumbago with sciatica, right side M54.41 [facility] [address] [id number] [address] [place] [address] Nov, Anxiety F41.9 [facility] [address] [id number] [address] [place] [address] Nov, [facility] [address] [id number] [address] [place] [address] Nov, Headache R51 [facility] [address] [facility] [id number] [address] [place] [address] October, Encounter for Depo-Provera c ontraception Z30.42 [facility] [address] [facility] [id number] [address] [place] [address] October, Anxiety F41.9 [facility] [address] [facility] [id number] [address] [place] [address] October, Anxiety F41.9 [facility] [address] [facility] [id number] [address] [place] [phone] October, [facility] [address] [place] [id number] [place] [address] October, Vaginal yeast infection B37. 3 [facility] [address] [facility] [id number] [address] [place] [phone] October, [facility] [address] [facility] [id number] [address] [place] [phone] October, Headache R51 [facility] [address] [id number] Sep, [facility] [address] [place] [id number] [address] [place] [address] Sep, [facility] [address] [facility] [id number] [address] [place] [address] Sep, Headache R51 [facility] [address] [facility] [id number] [address] [place] [phone] Sep, [facility] [address] [place] [id number] [address] [place] [address] Sep, Headache R51 [facility] [address] [facility] [id number] [address] [place] [phone] Aug, 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 and Headache R51 [facility] [address] [facility] [id number] [address] [place] [address] 24 Aug, 2015 [facility] [address] [facility] [id number] [address] [place] [address] Aug, Headache R51 ; Forgetfulness R68.[address] scan, head R93.0 [facility] [address] [facility] [id number] [address] [place] [address] 16 Aug, 2015 [facility] [address] [place] [id number] [place] [address] 15 Aug, 2015 [facility] [address] [place] [id number] [address] [place] [phone] 14 Aug, 2015 [facility] [address] [place] [id number] [place] [address] Aug, Headache R51 [facility] [address] [place] [id number] [place] [address] 08 Aug, 2015 Abnormal computed tomography angiography of head R93.0 [facility] [address] [place] [id number] [place] [address], [address] of the head R93. 0 [facility] [address] [place] [id number] [address] [place] [address] Aug, Headache R51 ; Nausea R11.0 and Forgetfulness R68.89 [facility] [address] [place] [id number] [address] [place] [address] Aug, Mental disor NOS oth dis F99 ; Unspecified mood [affective] disorder F39 and Anxiety disorder, unspecified F41.9 [facility] [address] [place] [id number] [address] [place] [address] Aug, [facility] [address] [place] [id number] [address] [place] [address] Aug, [facility] [address] [place] [id number] [address] [place] [address] Aug, Encounter for Depo-Provera c ontraception Z30.42 [facility] [address] [facility] [id number] [address] [place] [phone] Jul, [facility] [address] [place] [id number] [address] [place] [address] Jul, Contusion of unspecified fin laura without damage to nail, subsequent encounter S60.00XD [facility] [address] [facility] [id number] [address] [place] [address] May, [facility] [address] [facility] [id number] [address] [place] [address] May, [facility] [address] [place] [id number] [address] [place] [id number] 16 May, 2015 Dental examination Z01.20 [facility] [address] [place] [address] May, Hematuria R31.9 [facility] [address] [place] [id number] [address] [place] [address] May, [facility] [address] [address] May, Generalized anxiety disorder F41.1 [facility] [address] [place] [address] May, [facility] [address] [place] [address] May, [facility] [address] [place] [id number] [address] [place] [address] May, [facility] [address] [place] [id number] [address] [place] [address] Mar, Upper respiratory tract infe ction, unspecified upper respiratory infection J06.9 ; Anaphylaxis, subsequent encounter T78.2XXD ; Encounter for Depo-Provera contraception Z30.42 and Encounter for surveillance of injectable contraceptive Z30.42 [facility] [address] [place] [id number] [address] [place] [phone] Mar, [facility] [address] [id number] [address] [place] [address] Mar, [facility] [address] [id number] [address] [place] [address] Mar, [facility] [address] [id number] [address] [place] [address] Mar, [facility] [address] [id number] [address] [place] [address] Mar, [facility] [address] [id number] [address] [place] [phone] Jan, [facility] [address] [id number] [address] [place] [id number] Jan, [facility] [address] [id number] [address] [place] [phone] Jan, [facility] [address] [id number] [address] [place] [phone] Dec, [facility] [address] [id number] [address] [place] [id number] Dec, Dental examination V72.2 [facility] [address] [id number] [address] [place] [id number] Dec, [facility] [address] [id number] [address] [place] [id number] Nov, [facility] [address] [id number] [address] [place] [id number] Nov, [facility] [address] [id number] [address] [place] [id number] Nov, Abdominal pain 789.00 and Na usea and vomiting 787.01 [facility] [address] [id number] [address] [place] [phone] Nov, UTI (lower urinary tract inf ection) 599.0 and Abdominal pain 789.00 [facility] [address] [id number] [address] [place] [id number] October, [facility] [address] [id number] [address] [place] [id number] Sep, [facility] [address] [id number] [address] [place] [phone] Sep, [facility] [address] [id number] [address] [place] [id number] Aug, [facility] [address] [id number] [address] [place] [phone] Aug, [facility] [address] [id number] [address] [place] [phone] Aug, [facility] [address] [id number] [address] [place] [phone] Aug, [facility] [address] [id number] [address] [place] [id number] Aug, [facility] [address] [id number] [address] [place] [id number] Aug, [facility] [address] [id number] [address] [place] [phone] Aug, [facility] [address] [id number] [address] [place] [address] Aug, [facility] [address] [id number] [address] [place] [address] Jul, [facility] [address] [id number] [address] [place] [address] Jul, [facility] [address] [id number] [address] [place] [address] Jul, [facility] [address] [id number] [address] [place] [address] Jul, [facility] [address] [id number] [address] [place] [address], [place] [address] Jul, [facility] [address] [id number] [address] [place] [address], [place] [address] Jul, [facility] [address] [id number] [address] [place] [address], [place] [address] Jul, [facility] [address] [id number] [address] [place] [address], [place] [address] Jul, [facility] [address] [id number] [address] [place] [address], [place] [address] Jul, [facility] [address] [id number] [address] [place] [address], [place] [address] Jul, [facility] [address] [id number] [address] [place] [address], [place] [address] Jul, [facility] [address] [id number] [address] [place] [address], [place] [address] Jul, [facility] [address] [id number] [address] [place] [address], [place] [address] May, [facility] [address] [id number] [address] [place] [address], [place] [address] May, [facility] [address] [id number] [address] [place] [address], [place] [address] May, [facility] [address] [id number] [address] [place] [address], [place] [address] May, [facility] [address] [id number] [address] [place] [address], [place] [address] May, [facility] [address] [id number] [address] [place] [address], [place] [address] May, [facility] [address] [id number] [address] [place] [address], [place] [address] May, [facility] [address] [id number] [address] [place] [address], [place] [address] May, [facility] [address] [id number] [address] [place] [address], [place] [address] May, [facility] [address] [id number] [address] [place] [address], [place] [address] May, [facility] [address] [id number] [address] [place] [address], [place] [address] May, [facility] [address] [id number] [address] [place] [address], [place] [address] May, [facility] [address] [id number] [address] [place] [address], [place] [address] May, [facility] [address] [id number] [address] [place] [address], [place] [address] May, [facility] [address] [id number] [address] [place] [address], [place] [address] May, [facility] [address] [id number] [address] [place] [address], [place] [address] May, [facility] [address] [id number] [address] [place] [address], [place] [address] May, [facility] [address] [id number] [address] [place] [address], [place] [address] May, [facility] [address] [id number] [address] [place] [address], [place] [address] May, [facility] [address] [id number] [address] [place] [address], [place] [address] May, [facility] [address] [id number] [address] [place] [address], [place] [address] May, [facility] [address] [id number] [address] [place] [address], [place] [address] May, [facility] [address] [id number] [address] [place] [address], [place] [address] 15 May, 2014 [facility] [address] [id number] [address] [place] [address], [place] [address] 15 May, 2014 [facility] [address] [id number] [address] [place] [address], [place] [address] May, [facility] [address] [id number] [address] [place] [address], [place] [address] May, [facility] [address] [id number] [address] [place] [address], [place] [address] May, [facility] [address] [id number] [address] [place] [address], [place] [address] May, [facility] [address] [id number] [address] [place] [address], [place] [address] May, [facility] [address] [id number] [address] [place] [address], [place] [address] May, [facility] [address] [id number] [address] [place] [address], [place] [address] May, [facility] [address] [id number] [address] [place] [address], [place] [address] May, [facility] [address] [id number] [address] [place] [address], [place] [address] May, [facility] [address] [id number] [address] [place] [address], [place] [address] May, [facility] [address] [id number] [address] [place] [address], [place] [address] May, [facility] [address] [id number] [address] [place] [address], [place] [address] Mar, [facility] [address] [id number] [address] [place] [address], [place] [address] Mar, [facility] [address] [id number] [address] [place] [address], [place] [address] Mar, [facility] [address] [id number] [address] [place] [address], [place] [address] Mar, [facility] [address] [id number] [address] [place] [address], [place] [address] Mar, [facility] [address] [id number] [address] [place] [address], [place] [address] Mar, [facility] [address] [id number] [address] [place] [address], [place] [address] Mar, [facility] [address] [id number] [address] [place] [address], [place] [address] Mar, [facility] [address] [id number] [address] [place] [address], [place] [address] Mar, [facility] [address] [id number] [address] [place] [address], [place] [address] Mar, [facility] [address] [id number] [address] [place] [address], [place] [address] Mar, [facility] [address] [id number] [address] [place] [address], [place] [address] Mar, [facility] [address] [id number] [address] [place] [address], [place] [address] Mar, [facility] [address] [id number] [address] [place] [address], [place] [address] Mar, [facility] [address] [id number] [address] [place] [address], [place] [address] Jan, [facility] [address] [id number] [address] [place] [address], [place] [address] Jan, [facility] [address] [id number] [address] [place] [address], [place] [address] Jan, [facility] [address] [id number] [address] [place] [address], [place] [address] Jan, [facility] [address] [id number] [address] [place] [address], [place] [address] Jan, [facility] [address] [id number] [address] [place] [address], [place] [address] Jan, [facility] [address] [id number] [address] [place] [address], [place] [address] Jan, [facility] [address] [id number] [address] [place] [address], [place] [address] Jan, [facility] [address] [id number] [address] [place] [address], [place] [address] Jan, [facility] [address] [id number] [address] [place] [address], [place] [address] Dec, [facility] [address] [id number] [address] [place] [address], [place] [address] Dec, [facility] [address] [id number] [address] [place] [address], [place] [address] Dec, [facility] [address] [id number] [address] [place] [address], [place] [address] Dec, [facility] [address] [id number] [address] [place] [address], [place] [address] Dec, [facility] [address] [id number] [address] [place] [address], [place] [address] Dec, [facility] [address] [id number] [address] [place] [address], [place] [address] Dec, [facility] [address] [id number] [address] [place] [address], [place] [address] Dec, [facility] [address] [id number] [address] [place] [address], [place] [address] Dec, [facility] [address] [id number] [address] [place] [address], [place] [address] October, [facility] [address] [id number] [address] [place] [address], [place] [address] October, [facility] [address] [id number] [address] [place] [address], [place] [address] Sep, [facility] [address] [id number] [address] [place] [address], [place] [address] 15 Sep, 2013 [facility] [address] [id number] [address] [place] [address], [place] [address] 07 Aug, 2013 [facility] [address] [id number] [address] [place] [address], [place] [address] 07 Aug, 2013 [facility] [address] [id number] [address] [place] [address], [place] [address] 07 Aug, 2013 [facility] [address] [id number] [address] [place] [address], [place] [address] 07 Aug, 2013 [facility] [address] [id number] [address] [place] [address], [place] [address] 17 Aug, 2013 [facility] [address] [id number] [address] [place] [address], [place] [address] 17 Aug, 2013 [facility] [address] [id number] [address] [place] [address], [place] [address] 14 Aug, 2013 [facility] [address] [id number] [address] [place] [address], [place] [address] 07 Aug, 2013 [facility] [address] [id number] [address] [place] [address], [place] [address] 07 Aug, 2013 [facility] [address] [id number] [address] [place] [address], [place] [address] Aug, [facility] [address] [id number] [address] [place] [address], [place] [address] Aug, [facility] [address] [id number] [address] [place] [address], [place] [address] Jul, [facility] [address] [id number] [address] [place] [address], [place] [address] Jul, [facility] [address] [id number] [address] [place] [address], [place] [address] May, [facility] [address] [id number] [address] [place] [address], [place] [address] May, [facility] [address] [id number] [address] [place] [address], [place] [address] May, [facility] [address] [id number] [address] [place] [address], [place] [address] May, [facility] [address] [id number] [address] [place] [address], [place] [address] May, [facility] [address] [id number] [address] [place] [address], [place] [address] May, [facility] [address] [id number] [address] [place] [address], [place] [address] May, [facility] [address] [id number] [address] [place] [address], [place] [address] May, [facility] [address] [id number] [address] [place] [address], [place] [address] May, [facility] [address] [id number] [address] [place] [address], [place] [address] May, [facility] [address] [id number] [address] [place] [address], [place] [address] May, [facility] [address] [id number] [address] [place] [address], [place] [address] May, [facility] [address] [id number] [address] [place] [address] May, [facility] [address] [id number] [address] [place] [address] May, [facility] [address] [id number] [address] [place] [address], [place] [address] May, [facility] [address] [id number] [address] [place] [address], [place] [address] May, [facility] [address] [id number] [address] [place] [address], [place] [address] May, [facility] [address] [id number] [address] [place] [address], [place] [address] 18 May, 2013 [facility] [address] [id number] [address] [place] [address], [place] [address] 16 May, 2013 [facility] [address] [id number] [address] [place] [address], [place] [address] 16 May, 2013 [facility] [address] [id number] [address] [place] [address], [place] [address] May, [facility] [address] [id number] [address] [place] [address], [place] [address] May, [facility] [address] [id number] [address] [place] [address], [place] [address] May, [facility] [address] [id number] [address] [place] [address], [place] [address] May, [facility] [address] [id number] [address] [place] [address], [place] [address] May, [facility] [address] [id number] [address] [place] [address], [place] [address] May, [facility] [address] [id number] [address] [place] [address], [place] [address] May, [facility] [address] [id number] [address] [place] [address], [place] [address] 07 May, 2013 [facility] [address] [id number] [address] [place] [address], [place] [address] May, [facility] [address] [id number] [address] [place] [address], [place] [address] May, [facility] [address] [id number] [address] [place] [address], [place] [address] Mar, [facility] [address] [id number] [address] [place] [address], [place] [address] Mar, [facility] [address] [id number] [address] [place] [address], [place] [address] Mar, [facility] [address] [id number] [address] [place] [address], [place] [address] 31 Mar, 2012 [facility] [address] [id number] [address] [place] [address], [place] [address] 30 Mar, 2013 [facility] [address] [id number] [address] [place] [address], [place] [address] Mar, [facility] [address] [id number] [address] [place] [address], [place] [address] Mar, [facility] [address] [id number] [address] [place] [address], [place] [address] Mar, [facility] [address] [id number] [address] [place] [address], [place] [address] Mar, [facility] [address] [id number] [address] [place] [address], [place] [address] Mar, [facility] [address] [id number] [address] [place] [address] Mar, [facility] [address] [id number] [address] [place] [address], [place] [address] Mar, [facility] [address] [id number] [address] [place] [address] Mar, [facility] [address] [id number] [address] [place] [address] Mar, [facility] [address] [id number] [address] [place] [address] Mar, [facility] [address] [id number] [address] [place] [address] Mar, [facility] [address] [id number] [address] [place] [address] Mar, [facility] [address] [id number] [address] [place] [address] 18 Mar, 2013 [facility] [address] [id number] [address] [place] [address] 18 Mar, 2013 [facility] [address] [id number] [address] [place] [address], [place] [address] 18 Mar, 2013 [facility] [address] [id number] [address] [place] [address] 18 Mar, 2013 [facility] [address] [id number] [address] [place] [address], [place] [address] 14 Mar, 2013 [facility] [address] [id number] [address] [place] [address] 14 Mar, 2013 [facility] [address] [id number] [address] [place] [address], [place] [address] 10 Mar, 2013 [facility] [address] [id number] [address] [place] [address] 18 Mar, 2013 [facility] [address] [id number] [address] [place] [address] 12 Mar, 2013 [facility] [address] [id number] [address] [place] [address] 11 Mar, 2013 [facility] [address] [id number] [address] [place] [address] Jan, [facility] [address] [id number] [address] [place] [address] October, [facility] [address] [id number] [address] [place] [address] Sep, [facility] [address] [id number] [address] [place] [address] 15 Sep, 2012 [facility] [address] [id number] [address] [place] [address] Aug, [facility] [address] [id number] [address] [place] [address] 06 Aug, 2012 [facility] [address] [id number] [address] [place] [address] Aug, [facility] [address] [id number] [address] [place] [address], [place] [address] 17 Jul, 2012 [facility] [address] [id number] [address] [place] [address], [place] [address] 19 May, 2012 [facility] [address] [id number] [address] [place] [address], [place] [address] 19 May, 2012 [facility] [address] [id number] [address] [place] [address], [place] [address] 18 May, 2012 [facility] [address] [id number] [address] [place] [address], [place] [address] 18 May, 2012 [facility] [address] [id number] [address] [place] [address], [place] [address] 19 Mar, 2012 [facility] [address] [id number] [address] [place] [address], [place] [address] 19 Mar, 2012 [facility] [address] [id number] [address] [place] [address], [place] [address] 16 Mar, 2012 [facility] [address] [id number] [address] [place] [address], [place] [address] 25 Mar, 2012 [facility] [address] [id number] [address] [place] [address], [place] [address] 19 Mar, 2012 [facility] [address] [id number] [address] [place] [address], [place] [address] 13 Mar, 2012 [facility] [address] [id number] [address] [place] [address], [place] [address] 07 Mar, 2012 [facility] [address] [id number] [address] [place] [address], [place] [address] 30 Jan, 2012 [facility] [address] [id number] [address] [place] [address], [place] [address] 28 Jan, 2012 [facility] [address] [id number] [address] [place] [address], [place] [address] 20 Jan, 2012 [facility] [address] [id number] [address] [place] [address], [place] [address] Jan, [facility] [address] [id number] [address] [place] [address], [place] [address] Jan, [facility] [address] [id number] [address] [place] [address], [place] [address] Jan, [facility] [address] [id number] [address] [place] [address], [place] [address] Jan, [facility] [address] [id number] [address] [place] [address], [place] [address] Jan, [facility] [address] [id number] [address] [place] [address], [place] [address] Jan, [facility] [address] [id number] [address] [place] [address], [place] [address] Jan, [facility] [address] [id number] [address] [place] [address], [place] [address] Jan, [facility] [address] [id number] [address] [place] [address], [place] [address] Jan, [facility] [address] [id number] [address] [place] [address], [place] [address] Jan, [facility] [address] [id number] [address] [place] [address], [place] [address] Jan, [facility] [address] [id number] [address] [place] [address], [place] [address] Jan, [facility] [address] [id number] [address] [place] [address], [place] [address] Jan, [facility] [address] [id number] [address] [place] [address], [place] [address] Dec, [facility] [address] [id number] [address] [place] [address], [place] [address] Dec, [facility] [address] [id number] [address] [place] [address], [place] [address] Nov, [facility] [address] [id number] [address] [place] [address], [place] [address] 08 Nov, 2011 [facility] [address] [id number] [address] [place] [address], [place] [address] October, [facility] [address] [id number] [address] [place] [address], [place] [address] October, [facility] [address] [id number] [address] [place] [address], [place] [address] October, [facility] [address] [id number] [address] [place] [address], [place] [address] Sep, [facility] [address] [id number] [address] [place] [address], [place] [address] Sep, [facility] [address] [id number] [address] [place] [address], [place] [address] 30 Aug, 2011 [facility] [address] [id number] [address] [place] [address], [place] [address] 28 Aug, 2011 [facility] [address] [id number] [address] [place] [address], [place] [address] 26 Aug, 2011 [facility] [address] [id number] [address] [place] [address], [place] [address] 19 Aug, 2011 [facility] [address] [id number] [address] [place] [address], [place] [address] Aug, [facility] [address] [id number] [address] [place] [address], [place] [address] 14 Aug, 2011 [facility] [address] [id number] [address] [place] [address], [place] [address] 07 Aug, 2011 [facility] [address] [id number] [address] [place] [address], [place] [address] Jul, [facility] [address] [id number] [address] [place] [address], [place] [address] Jul, [facility] [address] [id number] [address] [place] [address], [place] [address] Jul, [facility] [address] [id number] [address] [place] [address], [place] [address] May, [facility] [address] [id number] [address] [place] [address], [place] [address] May, [facility] [address] [id number] [address] [place] [address], [place] [address] May, [facility] [address] [id number] [address] [place] [address], [place] [address] May, [facility] [address] [id number] [address] [place] [address], [place] [address] May, [facility] [address] [id number] [address] [place] [address], [place] [address] May, [facility] [address] [id number] [address] [place] [address], [place] [id number] May, [facility] [address] [id number] [address] [place] [address], [place] [address] Mar, [facility] [address] [id number] [address] [place] [address], [place] [address] Mar, [facility] [address] [id number] [address] [place] [id number] Mar, [facility] [address] [id number] [address] [place] [phone] 15 Mar, 2011 [facility] [address] [id number] [address] [place] [id number] Mar, [facility] [address] [id number] [address] [place] [address], [place] [address] Mar, [facility] [address] [id number] [address] [place] [phone] Jan, [facility] [address] [id number] [address] [place] [phone] 31 May, 2009 [facility] [address] [id number] [address] [place] [phone] May, [facility] [address] [facility] [id number] [address] [place] [id number] May, [facility] [address] [facility] [id number] [address] [place] [phone] May, [facility] [address] [facility] [id number] [address] [place] [phone] May, [facility] [address] [facility] [id number] [address] [place] [phone] May, [facility] [address] [facility] [id number] [address] [place] [id number] Mar, [facility] [address] [facility] [id number] [address] [place] [phone] Sep, IMMUNIZATIONS No Known Immunizations SOCIAL HISTORY [...]
--- OUTSIDE RECORDS SUMMARY | 2019-12-30 23:33 | XMS REPORT ---
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 [address] [id number] [address] [place] [id number] Jan, [facility] [address] [facility] [id number] [address] [place] [phone] Jan, [facility] [address] [id number] [address] [place] [phone] Jan, [facility] [address] [facility] [id number] [address] [place] [address] Jan, Carpal tunnel syndrome, righ t upper limb G56.01 [facility] [address] [facility] [id number] [address] [place] [phone] Jan, Bilateral otitis media, unsp ecified chronicity, unspecified otitis media type H66.93 [facility] [address] [facility] [id number] [address] [place] [phone] Jan, Lumbago with sciatica, left side M54.42 [facility] [address] [facility] [id number] [address] [place] [id number] Jan, [facility] [address] [facility] [id number] [address] [place] [id number] Jan, [facility] [address] [facility] [id number] [address] [place] [id number] Jan, Sore throat J02.9 ; Carpal t unnel syndrome, left upper limb G56.02 and Carpal tunnel syndrome, right upper limb G56.01 [facility] [address] [facility] [id number] [address] [place] [id number] Dec, [facility] [address] [facility] [id number] [address] [place] [id number] Dec, [facility] [address] [facility] [id number] [address] [place] [id number] Dec, [facility] [address] [id number] [address] [place] [phone] Dec, [facility] [address] [id number] [address] [place] [id number] Dec, Lumbago with sciatica, left side M54.42 [facility] [address] [id number] [address] [place] [id number] Dec, Anxiety F41.9 [facility] [address] [id number] [address] [place] [id number] Dec, Tremor R25.1 ; Back pain wit h right-sided radiculopathy M54.10 and Headache R51 [facility] [address] [id number] [address] [place] [id number] Dec, [facility] [address] [id number] [address] [place] [phone] Dec, [facility] [address] [id number] [address] [place] [id number] Dec, Lumbago with sciatica, left side M54.42 [facility] [address] [id number] [address] [place] [phone] Dec, Dizziness R42 [facility] [address] [id number] [address] [place] [phone] Nov, [facility] [address] [id number] [address] [place] [id number] Nov, Lumbago with sciatica, left side M54.42 and Lumbago with sciatica, right side M54.41 [facility] [address] [id number] [address] [place] [phone] Nov, Anxiety F41.9 [facility] [address] [id number] [address] [place] [id number] Nov, [facility] [address] [id number] [address] [place] [phone] Nov, Headache R51 [facility] [address] [facility] [id number] [address] [place] [id number] October, Encounter for Depo-Provera c ontraception Z30.42 [facility] [address] [facility] [id number] [address] [place] [id number] October, Anxiety F41.9 [facility] [address] [facility] [id number] [address] [place] [phone] October, Anxiety F41.9 [facility] [address] [facility] [id number] [address] [place] [id number] October, [facility] [address] [place] [id number] [place] [phone] October, Vaginal yeast infection B37. 3 [facility] [address] [facility] [id number] [address] [place] [phone] October, [facility] [address] [facility] [id number] [address] [place] [id number] October, Headache R51 [facility] [address] [address] Sep, [facility] [address] [place] [id number] [address] [place] [id number] Sep, [facility] [address] [facility] [id number] [address] [place] [id number] Sep, Headache R51 [facility] [address] [facility] [id number] [address] [place] [id number] Sep, [facility] [address] [place] [id number] [address] [place] [id number] Sep, Headache R51 [facility] [address] [facility] [id number] [address] [place] [id number] Aug, 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 and Headache R51 [facility] [address] [facility] [id number] [address] [place] [id number] 24 Aug, 2015 [facility] [address] [facility] [id number] [address] [place] [phone] Aug, Headache R51 ; Forgetfulness R68.[address] scan, head R93.0 [facility] [address] [facility] [id number] [address] [place] [phone] 16 Aug, 2015 [facility] [address] [place] [id number] [place] [phone] 15 Aug, 2015 [facility] [address] [place] [id number] [address] [place] [phone] 14 Aug, 2015 [facility] [address] [place] [id number] [place] [address] Aug, Headache R51 [facility] [address] [place] [id number] [place] [phone] 08 Aug, 2015 Abnormal computed tomography angiography of head R93.0 [facility] [address] [place] [id number] [place] [phone], [address] of the head R93. 0 [facility] [address] [place] [id number] [address] [place] [phone] Aug, Headache R51 ; Nausea R11.0 and Forgetfulness R68.89 [facility] [address] [place] [id number] [address] [place] [phone] Aug, Mental disor NOS oth dis F99 ; Unspecified mood [affective] disorder F39 and Anxiety disorder, unspecified F41.9 [facility] [address] [place] [id number] [address] [place] [id number] Aug, [facility] [address] [place] [id number] [address] [place] [phone] Aug, [facility] [address] [place] [id number] [address] [place] [phone] Aug, Encounter for Depo-Provera c ontraception Z30.42 [facility] [address] [facility] [id number] [address] [place] [id number] Jul, [facility] [address] [place] [id number] [address] [place] [address] Jul, Contusion of unspecified fin laura without damage to nail, subsequent encounter S60.00XD [facility] [address] [facility] [id number] [address] [place] [id number] May, [facility] [address] [facility] [id number] [address] [place] [phone] May, [facility] [address] [place] [id number] [address] [place] [id number] 16 May, 2015 Dental examination Z01.20 [facility] [id number] [place] [address] May, Hematuria R31.9 [facility] [address] [place] [id number] [address] [place] [phone] May, [facility] [address] [address] May, Generalized anxiety disorder F41.1 [facility] [address] [place] [phone] May, [facility] [id number] [place] [phone] May, [facility] [address] [place] [id number] [address] [place] [phone] May, [facility] [address] [place] [id number] [address] [place] [id number] Mar, Upper respiratory tract infe ction, unspecified upper respiratory infection J06.9 ; Anaphylaxis, subsequent encounter T78.2XXD ; Encounter for Depo-Provera contraception Z30.42 and Encounter for surveillance of injectable contraceptive Z30.42 [facility] [address] [place] [id number] [address] [place] [id number] Mar, [facility] [address] [id number] [address] [place] [id number] Mar, [facility] [address] [id number] [address] [place] [phone] Mar, [facility] [address] [id number] [address] [place] [id number] Mar, [facility] [address] [id number] [address] [place] [id number] Mar, [facility] [address] [id number] [address] [place] [phone] Jan, [facility] [address] [id number] [address] [place] [id number] Jan, [facility] [address] [id number] [address] [place] [id number] Jan, [facility] [address] [id number] [address] [place] [id number] Dec, [facility] [address] [id number] [address] [place] [id number] Dec, Dental examination V72.2 [facility] [address] [id number] [address] [place] [id number] Dec, [facility] [address] [id number] [address] [place] [id number] Nov, [facility] [address] [id number] [address] [place] [id number] Nov, [facility] [address] [id number] [address] [place] [id number] Nov, Abdominal pain 789.00 and Na usea and vomiting 787.01 [facility] [address] [id number] [address] [place] [id number] Nov, UTI (lower urinary tract inf ection) 599.0 and Abdominal pain 789.00 [facility] [address] [id number] [address] [place] [id number] October, [facility] [address] [id number] [address] [place] [id number] Sep, [facility] [address] [id number] [address] [place] [id number] Sep, [facility] [address] [id number] [address] [place] [id number] Aug, [facility] [address] [id number] [address] [place] [id number] Aug, [facility] [address] [id number] [address] [place] [phone] Aug, [facility] [address] [id number] [address] [place] [id number] Aug, [facility] [address] [id number] [address] [place] [id number] Aug, [facility] [address] [id number] [address] [place] [id number] Aug, [facility] [address] [id number] [address] [place] [id number] Aug, [facility] [address] [id number] [address] [place] [id number] Aug, [facility] [address] [id number] [address] [place] [id number] Jul, [facility] [address] [id number] [address] [place] [id number] Jul, [facility] [address] [id number] [address] [place] [id number] Jul, [facility] [address] [id number] [address] [place] [id number] Jul, [facility] [address] [id number] [address] [place] [address], [place] [address] Jul, [facility] [address] [id number] [address] [place] [address], [place] [address] Jul, [facility] [address] [id number] [address] [place] [address], [place] [address] Jul, [facility] [address] [id number] [address] [place] [address], [place] [address] Jul, [facility] [address] [id number] [address] [place] [address], [place] [address] Jul, [facility] [address] [id number] [address] [place] [address], [place] [address] Jul, [facility] [address] [id number] [address] [place] [address], [place] [address] Jul, [facility] [address] [id number] [address] [place] [address], [place] [address] Jul, [facility] [address] [id number] [address] [place] [address], [place] [address] May, [facility] [address] [id number] [address] [place] [address], [place] [address] May, [facility] [address] [id number] [address] [place] [address], [place] [address] May, [facility] [address] [id number] [address] [place] [address], [place] [address] May, [facility] [address] [id number] [address] [place] [address], [place] [address] May, [facility] [address] [id number] [address] [place] [address], [place] [address] May, [facility] [address] [id number] [address] [place] [address], [place] [address] May, [facility] [address] [id number] [address] [place] [address], [place] [address] May, [facility] [address] [id number] [address] [place] [address], [place] [address] May, [facility] [address] [id number] [address] [place] [address], [place] [address] May, [facility] [address] [id number] [address] [place] [address], [place] [address] May, [facility] [address] [id number] [address] [place] [address], [place] [address] May, [facility] [address] [id number] [address] [place] [address], [place] [address] May, [facility] [address] [id number] [address] [place] [address], [place] [address] May, [facility] [address] [id number] [address] [place] [address], [place] [address] May, [facility] [address] [id number] [address] [place] [address], [place] [address] May, [facility] [address] [id number] [address] [place] [address], [place] [address] May, [facility] [address] [id number] [address] [place] [address], [place] [address] May, [facility] [address] [id number] [address] [place] [address], [place] [address] May, [facility] [address] [id number] [address] [place] [address], [place] [address] May, [facility] [address] [id number] [address] [place] [address], [place] [address] May, [facility] [address] [id number] [address] [place] [address], [place] [address] May, [facility] [address] [id number] [address] [place] [address], [place] [address] 15 May, 2014 [facility] [address] [id number] [address] [place] [address], [place] [address] 15 May, 2014 [facility] [address] [id number] [address] [place] [address], [place] [address] May, [facility] [address] [id number] [address] [place] [address], [place] [address] May, [facility] [address] [id number] [address] [place] [address], [place] [address] May, [facility] [address] [id number] [address] [place] [address], [place] [address] May, [facility] [address] [id number] [address] [place] [address], [place] [address] May, [facility] [address] [id number] [address] [place] [address], [place] [address] May, [facility] [address] [id number] [address] [place] [address], [place] [address] May, [facility] [address] [id number] [address] [place] [address], [place] [address] May, [facility] [address] [id number] [address] [place] [address], [place] [address] May, [facility] [address] [id number] [address] [place] [address], [place] [address] May, [facility] [address] [id number] [address] [place] [address], [place] [address] May, [facility] [address] [id number] [address] [place] [address], [place] [address] Mar, [facility] [address] [id number] [address] [place] [address], [place] [address] Mar, [facility] [address] [id number] [address] [place] [address], [place] [address] Mar, [facility] [address] [id number] [address] [place] [address], [place] [address] Mar, [facility] [address] [id number] [address] [place] [address], [place] [address] Mar, [facility] [address] [id number] [address] [place] [address], [place] [address] Mar, [facility] [address] [id number] [address] [place] [address], [place] [address] Mar, [facility] [address] [id number] [address] [place] [address], [place] [address] Mar, [facility] [address] [id number] [address] [place] [address], [place] [address] Mar, [facility] [address] [id number] [address] [place] [address], [place] [address] Mar, [facility] [address] [id number] [address] [place] [address], [place] [address] Mar, [facility] [address] [id number] [address] [place] [address], [place] [address] Mar, [facility] [address] [id number] [address] [place] [address], [place] [address] Mar, [facility] [address] [id number] [address] [place] [address], [place] [address] Mar, [facility] [address] [id number] [address] [place] [address], [place] [address] Jan, [facility] [address] [id number] [address] [place] [address], [place] [address] Jan, [facility] [address] [id number] [address] [place] [address], [place] [address] Jan, [facility] [address] [id number] [address] [place] [address], [place] [address] Jan, [facility] [address] [id number] [address] [place] [address], [place] [address] Jan, [facility] [address] [id number] [address] [place] [address], [place] [address] Jan, [facility] [address] [id number] [address] [place] [address], [place] [address] Jan, [facility] [address] [id number] [address] [place] [address], [place] [address] Jan, [facility] [address] [id number] [address] [place] [address], [place] [address] Jan, [facility] [address] [id number] [address] [place] [address], [place] [address] Dec, [facility] [address] [id number] [address] [place] [address], [place] [address] Dec, [facility] [address] [id number] [address] [place] [address], [place] [address] Dec, [facility] [address] [id number] [address] [place] [address], [place] [address] Dec, [facility] [address] [id number] [address] [place] [address], [place] [address] Dec, [facility] [address] [id number] [address] [place] [address], [place] [address] Dec, [facility] [address] [id number] [address] [place] [address], [place] [address] Dec, [facility] [address] [id number] [address] [place] [address], [place] [address] Dec, [facility] [address] [id number] [address] [place] [address], [place] [address] Dec, [facility] [address] [id number] [address] [place] [address], [place] [address] October, [facility] [address] [id number] [address] [place] [address], [place] [address] October, [facility] [address] [id number] [address] [place] [address], [place] [address] Sep, [facility] [address] [id number] [address] [place] [address], [place] [address] 15 Sep, 2013 [facility] [address] [id number] [address] [place] [address], [place] [address] 07 Aug, 2013 [facility] [address] [id number] [address] [place] [address], [place] [address] 07 Aug, 2013 [facility] [address] [id number] [address] [place] [address], [place] [address] 07 Aug, 2013 [facility] [address] [id number] [address] [place] [address], [place] [address] 07 Aug, 2013 [facility] [address] [id number] [address] [place] [address], [place] [address] 17 Aug, 2013 [facility] [address] [id number] [address] [place] [address], [place] [address] 17 Aug, 2013 [facility] [address] [id number] [address] [place] [address], [place] [address] 14 Aug, 2013 [facility] [address] [id number] [address] [place] [address], [place] [address] 07 Aug, 2013 [facility] [address] [id number] [address] [place] [address], [place] [address] 07 Aug, 2013 [facility] [address] [id number] [address] [place] [address], [place] [address] Aug, [facility] [address] [id number] [address] [place] [address], [place] [address] Aug, [facility] [address] [id number] [address] [place] [address], [place] [address] Jul, [facility] [address] [id number] [address] [place] [address], [place] [address] Jul, [facility] [address] [id number] [address] [place] [address], [place] [address] May, [facility] [address] [id number] [address] [place] [address], [place] [address] May, [facility] [address] [id number] [address] [place] [address], [place] [address] May, [facility] [address] [id number] [address] [place] [address], [place] [address] May, [facility] [address] [id number] [address] [place] [address], [place] [address] May, [facility] [address] [id number] [address] [place] [address], [place] [address] May, [facility] [address] [id number] [address] [place] [address], [place] [address] May, [facility] [address] [id number] [address] [place] [address], [place] [address] May, [facility] [address] [id number] [address] [place] [address], [place] [address] May, [facility] [address] [id number] [address] [place] [address], [place] [address] May, [facility] [address] [id number] [address] [place] [address], [place] [address] May, [facility] [address] [id number] [address] [place] [address], [place] [address] May, [facility] [address] [id number] [address] [place] [address] May, [facility] [address] [id number] [address] [place] [address] May, [facility] [address] [id number] [address] [place] [address], [place] [address] May, [facility] [address] [id number] [address] [place] [address], [place] [address] May, [facility] [address] [id number] [address] [place] [address], [place] [address] May, [facility] [address] [id number] [address] [place] [address], [place] [address] 18 May, 2013 [facility] [address] [id number] [address] [place] [address], [place] [address] 16 May, 2013 [facility] [address] [id number] [address] [place] [address], [place] [address] 16 May, 2013 [facility] [address] [id number] [address] [place] [address], [place] [address] May, [facility] [address] [id number] [address] [place] [address], [place] [address] May, [facility] [address] [id number] [address] [place] [address], [place] [address] May, [facility] [address] [id number] [address] [place] [address], [place] [address] May, [facility] [address] [id number] [address] [place] [address], [place] [address] May, [facility] [address] [id number] [address] [place] [address], [place] [address] May, [facility] [address] [id number] [address] [place] [address], [place] [address] May, [facility] [address] [id number] [address] [place] [address], [place] [address] 07 May, 2013 [facility] [address] [id number] [address] [place] [address], [place] [address] May, [facility] [address] [id number] [address] [place] [address], [place] [address] May, [facility] [address] [id number] [address] [place] [address], [place] [address] Mar, [facility] [address] [id number] [address] [place] [address], [place] [address] Mar, [facility] [address] [id number] [address] [place] [address], [place] [address] Mar, [facility] [address] [id number] [address] [place] [address], [place] [address] 31 Mar, 2012 [facility] [address] [id number] [address] [place] [address], [place] [address] 30 Mar, 2013 [facility] [address] [id number] [address] [place] [address], [place] [address] Mar, [facility] [address] [id number] [address] [place] [address], [place] [address] Mar, [facility] [address] [id number] [address] [place] [address], [place] [address] Mar, [facility] [address] [id number] [address] [place] [address], [place] [address] Mar, [facility] [address] [id number] [address] [place] [address], [place] [address] Mar, [facility] [address] [id number] [address] [place] [id number] Mar, [facility] [address] [id number] [address] [place] [address], [place] [address] Mar, [facility] [address] [id number] [address] [place] [id number] Mar, [facility] [address] [id number] [address] [place] [id number] Mar, [facility] [address] [id number] [address] [place] [id number] Mar, [facility] [address] [id number] [address] [place] [id number] Mar, [facility] [address] [id number] [address] [place] [id number] Mar, [facility] [address] [id number] [address] [place] [id number] 18 Mar, 2013 [facility] [address] [id number] [address] [place] [id number] 18 Mar, 2013 [facility] [address] [id number] [address] [place] [address], [place] [address] 18 Mar, 2013 [facility] [address] [id number] [address] [place] [id number] 18 Mar, 2013 [facility] [address] [id number] [address] [place] [address], [place] [address] 14 Mar, 2013 [facility] [address] [id number] [address] [place] [id number] 14 Mar, 2013 [facility] [address] [id number] [address] [place] [address], [place] [address] 10 Mar, 2013 [facility] [address] [id number] [address] [place] [id number] 18 Mar, 2013 [facility] [address] [id number] [address] [place] [id number] 12 Mar, 2013 [facility] [address] [id number] [address] [place] [id number] 11 Mar, 2013 [facility] [address] [id number] [address] [place] [id number] Jan, [facility] [address] [id number] [address] [place] [id number] October, [facility] [address] [id number] [address] [place] [id number] Sep, [facility] [address] [id number] [address] [place] [id number] 15 Sep, 2012 [facility] [address] [id number] [address] [place] [id number] Aug, [facility] [address] [id number] [address] [place] [id number] 06 Aug, 2012 [facility] [address] [id number] [address] [place] [id number] Aug, [facility] [address] [id number] [address] [place] [address], [place] [address] 17 Jul, 2012 [facility] [address] [id number] [address] [place] [address], [place] [address] 19 May, 2012 [facility] [address] [id number] [address] [place] [address], [place] [address] 19 May, 2012 [facility] [address] [id number] [address] [place] [address], [place] [id number] 18 May, 2012 [facility] [address] [id number] [address] [place] [address], [place] [address] 18 May, 2012 [facility] [address] [id number] [address] [place] [address], [place] [address] 19 Mar, 2012 [facility] [address] [id number] [address] [place] [address], [place] [address] 19 Mar, 2012 [facility] [address] [id number] [address] [place] [address], [place] [address] 16 Mar, 2012 [facility] [address] [id number] [address] [place] [address], [place] [address] 25 Mar, 2012 [facility] [address] [id number] [address] [place] [address], [place] [address] 19 Mar, 2012 [facility] [address] [id number] [address] [place] [address], [place] [address] 13 Mar, 2012 [facility] [address] [id number] [address] [place] [address], [place] [address] 07 Mar, 2012 [facility] [address] [id number] [address] [place] [address], [place] [address] 30 Jan, 2012 [facility] [address] [id number] [address] [place] [address], [place] [address] 28 Jan, 2012 [facility] [address] [id number] [address] [place] [address], [place] [address] 20 Jan, 2012 [facility] [address] [id number] [address] [place] [address], [place] [address] Jan, [facility] [address] [id number] [address] [place] [address], [place] [address] Jan, [facility] [address] [id number] [address] [place] [address], [place] [address] Jan, [facility] [address] [id number] [address] [place] [address], [place] [address] Jan, [facility] [address] [id number] [address] [place] [address], [place] [address] Jan, [facility] [address] [id number] [address] [place] [address], [place] [address] Jan, [facility] [address] [id number] [address] [place] [address], [place] [address] Jan, [facility] [address] [id number] [address] [place] [address], [place] [address] Jan, [facility] [address] [id number] [address] [place] [address], [place] [address] Jan, [facility] [address] [id number] [address] [place] [address], [place] [address] Jan, [facility] [address] [id number] [address] [place] [address], [place] [address] Jan, [facility] [address] [id number] [address] [place] [address], [place] [address] Jan, [facility] [address] [id number] [address] [place] [address], [place] [address] Jan, [facility] [address] [id number] [address] [place] [address], [place] [address] Dec, [facility] [address] [id number] [address] [place] [address], [place] [address] Dec, [facility] [address] [id number] [address] [place] [address], [place] [address] Nov, [facility] [address] [id number] [address] [place] [address], [place] [address] 08 Nov, 2011 [facility] [place] [address] [id number] [address] [place] [address], [place] [address] October, [facility] [address] [id number] [address] [place] [address], [place] [address] October, [facility] [place] [address] [id number] [address] [place] [address], [place] [address] October, [facility] [address] [id number] [address] [place] [address], [place] [address] Sep, [facility] [address] [id number] [address] [place] [address], [place] [address] Sep, [facility] [address] [id number] [address] [place] [address], [place] [address] 30 Aug, 2011 [facility] [place] [address] [id number] [address] [place] [address], [place] [address] 28 Aug, 2011 [facility] [place] [address] [id number] [address] [place] [address], [place] [address] 26 Aug, 2011 [facility] [address] [id number] [address] [place] [address], [place] [address] 19 Aug, 2011 [facility] [address] [id number] [address] [place] [address], [place] [address] Aug, [facility] [address] [id number] [address] [place] [address], [place] [address] 14 Aug, 2011 [facility] [address] [id number] [address] [place] [address], [place] [address] 07 Aug, 2011 [facility] [address] [id number] [address] [place] [address], [place] [address] Jul, [facility] [address] [id number] [address] [place] [address], [place] [address] Jul, [facility] [address] [id number] [address] [place] [address], [place] [address] Jul, [facility] [address] [id number] [address] [place] [address], [place] [address] May, [facility] [address] [id number] [address] [place] [address], [place] [address] May, [facility] [address] [id number] [address] [place] [address], [place] [address] May, [facility] [address] [id number] [address] [place] [address], [place] [address] May, [facility] [address] [id number] [address] [place] [address], [place] [phone] May, [facility] [address] [id number] [address] [place] [address], [place] [phone] May, [facility] [address] [id number] [address] [place] [address], [place] [phone] May, [facility] [address] [id number] [address] [place] [address], [place] [phone] Mar, [facility] [address] [id number] [address] [place] [address], [place] [phone] Mar, [facility] [address] [id number] [address] [place] [id number] Mar, [facility] [address] [id number] [address] [place] [id number] 15 Mar, 2011 [facility] [address] [id number] [address] [place] [phone] Mar, [facility] [address] [id number] [address] [place] [address], [place] [phone] Mar, [facility] [address] [id number] [address] [place] [phone] Jan, [facility] [address] [id number] [address] [place] [id number] 31 May, 2009 [facility] [address] [id number] [address] [place] [phone] May, [facility] [address] [facility] [id number] [address] [place] [phone] May, [facility] [address] [facility] [id number] [address] [place] [phone] May, [facility] [address] [facility] [id number] [address] [place] [phone] May, [facility] [address] [facility] [id number] [address] [place] [phone] May, [facility] [address] [facility] [id number] [address] [place] [phone] Mar, [facility] [address] [facility] [id number] [address] [place] [id number] Sep, IMMUNIZATIONS No Known Immunizations SOCIAL HISTORY [...]
--- OUTSIDE RECORDS SUMMARY | 2019-12-30 23:33 | XMS REPORT ---
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 lymphadenopathy R59 .9 ; Low back pain M54.5 ; Other chronic pain G89.29 and Memory loss, short term R41.3 [facility] [place] [address] [id number] [address] [place] [phone] 13 Mar, 2016 [facility] [place] [address] [id number] [address] [place] [phone] 13 Mar, 2016 Short-term memory loss R41.3 [facility] [place] [address] [id number] [address] [place] [phone] 09 Mar, 2015 [facility] [place] [address] [id number] [address] [place] [phone] 08 Mar, 2016 [facility] [address] [id number] [address] [place] [id number] 07 Mar, 2016 Axillary abscess L02.419 [facility] [place] [address] [id number] [address] [place] [phone] 07 Mar, 2016 [facility] [place] [address] [id number] [address] [place] [phone] Jan, [facility] [place] [address] [id number] [address] [place] [phone] Jan, Encounter for Depo-Provera c ontraception Z30.42 [facility] [place] [address] [id number] [address] [place] [phone] Jan, [facility] [place] [address] [facility] [id number] [address] [place] [phone] Jan, [facility] [place] [address] [id number] [address] [place] [phone] Jan, [facility] [place] [address] [facility] [id number] [address] [place] [phone] Jan, Carpal tunnel syndrome, righ t upper limb G56.01 [facility] [address] [facility] [id number] [address] [place] [phone] Jan, Bilateral otitis media, unsp ecified chronicity, unspecified otitis media type H66.93 [facility] [place] [address] [facility] [id number] [address] [place] [phone] Jan, Lumbago with sciatica, left side M54.42 [facility] [place] [address] [facility] [id number] [address] [place] [phone] Jan, [facility] [place] [address] [facility] [id number] [address] [place] [phone] Jan, [facility] [place] [address] [facility] [id number] [address] [place] [phone] Jan, Sore throat J02.9 ; Carpal t unnel syndrome, left upper limb G56.02 and Carpal tunnel syndrome, right upper limb G56.01 [facility] [place] [address] [facility] [id number] [address] [place] [phone] Dec, [facility] [place] [address] [facility] [id number] [address] [place] [id number] Dec, [facility] [place] [address] [facility] [id number] [address] [place] [phone] Dec, [facility] [place] [address] [id number] [address] [place] [phone] Dec, [facility] [place] [address] [id number] [address] [place] [phone] Dec, Lumbago with sciatica, left side M54.42 [facility] [place] [address] [id number] [address] [place] [phone] Dec, Anxiety F41.9 [facility] [place] [address] [id number] [address] [place] [phone] Dec, Tremor R25.1 ; Back pain wit h right-sided radiculopathy M54.10 and Headache R51 [facility] [place] [address] [id number] [address] [place] [phone] Dec, [facility] [place] [address] [id number] [address] [place] [phone] Dec, [facility] [place] [address] [id number] [address] [place] [phone] Dec, Lumbago with sciatica, left side M54.42 [facility] [place] [address] [id number] [address] [place] [phone] Dec, Dizziness R42 [facility] [place] [address] [id number] [address] [place] [id number] Nov, [facility] [place] [address] [id number] [address] [place] [phone] Nov, Lumbago with sciatica, left side M54.42 and Lumbago with sciatica, right side M54.41 [facility] [place] [address] [id number] [address] [place] [phone] Nov, Anxiety F41.9 [facility] [place] [address] [id number] [address] [place] [phone] Nov, [facility] [place] [address] [id number] [address] [place] [phone] Nov, Headache R51 [facility] [place], [facility] [address] [facility] [id number] [address] [place] [phone] October, Encounter for Depo-Provera c ontraception Z30.42 [facility], [place], [facility] [address] [facility] [id number] [address] [place] [phone] October, Anxiety F41.9 [facility] [place], [facility] [address] [facility] [id number] [address] [place] [phone] October, Anxiety F41.9 [facility] [place] [address] [facility] [id number] [address] [place] [id number] October, [facility] [place], [facility] [address] [place] [id number] [place] [phone] October, Vaginal yeast infection B37. 3 [facility] [address] [facility] [id number] [address] [place] [phone] October, [facility] [place], [facility] [address] [facility] [id number] [address] [place] [phone] October, Headache R51 [facility] [place], [facility] [address] [phone] Sep, [facility] [place], [facility] [address] [place] [id number] [address] [place] [id number] Sep, [facility] [place], [facility] [address] [facility] [id number] [address] [place] [phone] Sep, Headache R51 [facility] [place], [facility] [address] [facility] [id number] [address] [place] [phone] Sep, [facility] [place], [facility] [address] [place] [id number] [address] [place] [id number] Sep, Headache R51 [facility] [place] [address] [facility] [id number] [address] [place] [id number] Aug, 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 and Headache R51 [facility] [place], [facility] [address] [facility] [id number] [address] [place] [phone] 24 Aug, 2015 [facility] [place] [address] [facility] [id number] [address] [place] [phone] Aug, Headache R51 ; Forgetfulness R68.[address] scan, head R93.0 [facility] [place], [facility] [address] [facility] [id number] [address] [place] [id number] 16 Aug, 2015 [facility], [place] [id number] [place] [id number] 15 Aug, 2015 [facility] [place] [address] [id number] [address] [place] [id number] 14 Aug, 2015 [facility] [place] [id number] [place] [id number] Aug, Headache R51 [facility] [place] [id number] [place] [id number] 08 Aug, 2015 Abnormal computed tomography angiography of head R93.0 [facility] [place] [id number] [place] [address], [address] of the head R93. 0 [facility] [place] [address] [id number] [address] [place] [id number] Aug, Headache R51 ; Nausea R11.0 and Forgetfulness R68.89 [facility] [place] [address] [id number] [address] [place] [address] Aug, Mental disor NOS oth dis F99 ; Unspecified mood [affective] disorder F39 and Anxiety disorder, unspecified F41.9 [facility] [place] [id number] [address] [place] [id number] Aug, [facility] [place] [address] [id number] [address] [place] [address] Aug, [facility] [place] [id number] [address] [place] [address] Aug, Encounter for Depo-Provera c ontraception Z30.42 [facility] [place] [address] [facility] [id number] [address] [place] [id number] Jul, [facility] [place] [address] [id number] [address] [place] [id number] Jul, Contusion of unspecified fin laura without damage to nail, subsequent encounter S60.00XD [facility] [place] [address] [facility] [id number] [address] [place] [id number] May, [facility] [place] [address] [facility] [id number] [address] [place] [address] May, [facility] [address] [id number] [address] [place] [id number] 16 May, 2015 Dental examination Z01.20 [facility] [place] [id number] [place] [address] May, Hematuria R31.9 [facility] [place] [address] [id number] [address] [place] [address] May, [facility] [place] [address] [address] May, Generalized anxiety disorder F41.1 [facility] [place] [id number] [place] [address] May, [facility] [place] [id number] [place] [address] May, [facility] [place] [address] [id number] [address] [place] [id number] May, [facility] [place] [address] [id number] [address] [place] [phone] Mar, Upper respiratory tract infe ction, unspecified upper respiratory infection J06.9 ; Anaphylaxis, subsequent encounter T78.2XXD ; Encounter for Depo-Provera contraception Z30.42 and Encounter for surveillance of injectable contraceptive Z30.42 [facility] [place] [address] [id number] [address] [place] [id number] Mar, [facility] [address] [id number] [address] [place] [address] Mar, [facility] [address] [id number] [address] [place] [address] Mar, [facility] [address] [id number] [address] [place] [address] Mar, [facility] [address] [id number] [address] [place] [id number] Mar, [facility] [place] [address] [id number] [address] [place] [id number] Jan, [facility] [address] [id number] [address] [place] [id number] Jan, [facility] [place] [address] [id number] [address] [place] [address] Jan, [facility] [place] [address] [id number] [address] [place] [id number] Dec, [facility] [address] [id number] [address] [place] [id number] Dec, Dental examination V72.2 [facility] [place] [address] [id number] [address] [place] [id number] Dec, [facility] [place] [address] [id number] [address] [place] [id number] Nov, [facility] [place] [address] [id number] [address] [place] [phone] Nov, [facility] [place] [address] [id number] [address] [place] [id number] Nov, Abdominal pain 789.00 and Na usea and vomiting 787.01 [facility] [place] [address] [id number] [address] [place] [phone] Nov, UTI (lower urinary tract inf ection) 599.0 and Abdominal pain 789.00 [facility] [address] [id number] [address] [place] [id number] October, [facility] [address] [id number] [address] [place] [id number] Sep, [facility] [address] [id number] [address] [place] [address] Sep, [facility] [address] [id number] [address] [place] [phone] Aug, [facility] [address] [id number] [address] [place] [phone] Aug, [facility] [address] [id number] [address] [place] [phone] Aug, [facility] [address] [id number] [address] [place] [phone] Aug, [facility] [address] [id number] [address] [place] [phone] Aug, [facility] [address] [id number] [address] [place] [id number] Aug, [facility] [address] [id number] [address] [place] [id number] Aug, [facility] [address] [id number] [address] [place] [phone] Aug, [facility] [address] [id number] [address] [place] [id number] Jul, [facility] [address] [id number] [address] [place] [id number] Jul, [facility] [address] [id number] [address] [place] [id number] Jul, [facility] [address] [id number] [address] [place] [id number] Jul, [facility] [address] [id number] [address] [place] [address], [place] [address] Jul, [facility] [address] [id number] [address] [place] [address], [place] [address] Jul, [facility] [address] [id number] [address] [place] [address], [place] [address] Jul, [facility] [address] [id number] [address] [place] [address], [place] [address] Jul, [facility] [address] [id number] [address] [place] [address], [place] [address] Jul, [facility] [address] [id number] [address] [place] [address], [place] [address] Jul, [facility] [address] [id number] [address] [place] [address], [place] [address] Jul, [facility] [address] [id number] [address] [place] [address], [place] [address] Jul, [facility] [address] [id number] [address] [place] [address], [place] [address] May, [facility] [address] [id number] [address] [place] [address], [place] [address] May, [facility] [address] [id number] [address] [place] [address], [place] [address] May, [facility] [address] [id number] [address] [place] [address], [place] [address] May, [facility] [address] [id number] [address] [place] [address], [place] [address] May, [facility] [address] [id number] [address] [place] [address], [place] [address] May, [facility] [address] [id number] [address] [place] [address], [place] [address] May, [facility] [address] [id number] [address] [place] [address], [place] [address] May, [facility] [address] [id number] [address] [place] [address], [place] [address] May, [facility] [address] [id number] [address] [place] [address], [place] [address] May, [facility] [address] [id number] [address] [place] [address], [place] [address] May, [facility] [address] [id number] [address] [place] [address], [place] [address] May, [facility] [address] [id number] [address] [place] [address], [place] [address] May, [facility] [address] [id number] [address] [place] [address], [place] [address] May, [facility] [address] [id number] [address] [place] [address], [place] [address] May, [facility] [address] [id number] [address] [place] [address], [place] [address] May, [facility] [address] [id number] [address] [place] [address], [place] [address] May, [facility] [address] [id number] [address] [place] [address], [place] [address] May, [facility] [address] [id number] [address] [place] [address], [place] [address] May, [facility] [address] [id number] [address] [place] [address], [place] [address] May, [facility] [address] [id number] [address] [place] [address], [place] [address] May, [facility] [address] [id number] [address] [place] [address], [place] [address] May, [facility] [address] [id number] [address] [place] [address], [place] [address] 15 May, 2014 [facility] [address] [id number] [address] [place] [address], [place] [address] 15 May, 2014 [facility] [address] [id number] [address] [place] [address], [place] [address] May, [facility] [address] [id number] [address] [place] [address], [place] [address] May, [facility] [address] [id number] [address] [place] [address], [place] [address] May, [facility] [address] [id number] [address] [place] [address], [place] [address] May, [facility] [address] [id number] [address] [place] [address], [place] [address] May, [facility] [address] [id number] [address] [place] [address], [place] [address] May, [facility] [address] [id number] [address] [place] [address], [place] [address] May, [facility] [address] [id number] [address] [place] [address], [place] [address] May, [facility] [address] [id number] [address] [place] [address], [place] [address] May, [facility] [address] [id number] [address] [place] [address], [place] [address] May, [facility] [address] [id number] [address] [place] [address], [place] [address] May, [facility] [address] [id number] [address] [place] [address], [place] [address] Mar, [facility] [address] [id number] [address] [place] [address], [place] [address] Mar, [facility] [address] [id number] [address] [place] [address], [place] [address] Mar, [facility] [address] [id number] [address] [place] [address], [place] [address] Mar, [facility] [address] [id number] [address] [place] [address], [place] [address] Mar, [facility] [address] [id number] [address] [place] [address], [place] [address] Mar, [facility] [address] [id number] [address] [place] [address], [place] [address] Mar, [facility] [address] [id number] [address] [place] [address], [place] [address] Mar, [facility] [address] [id number] [address] [place] [address], [place] [address] Mar, [facility] [address] [id number] [address] [place] [address], [place] [address] Mar, [facility] [address] [id number] [address] [place] [address], [place] [address] Mar, [facility] [address] [id number] [address] [place] [address], [place] [address] Mar, [facility] [address] [id number] [address] [place] [address], [place] [address] Mar, [facility] [address] [id number] [address] [place] [address], [place] [address] Mar, [facility] [address] [id number] [address] [place] [address], [place] [address] Jan, [facility] [address] [id number] [address] [place] [address], [place] [address] Jan, [facility] [address] [id number] [address] [place] [address], [place] [address] Jan, [facility] [address] [id number] [address] [place] [address], [place] [address] Jan, [facility] [address] [id number] [address] [place] [address], [place] [address] Jan, [facility] [address] [id number] [address] [place] [address], [place] [address] Jan, [facility] [address] [id number] [address] [place] [address], [place] [address] Jan, [facility] [address] [id number] [address] [place] [address], [place] [address] Jan, [facility] [address] [id number] [address] [place] [address], [place] [address] Jan, [facility] [address] [id number] [address] [place] [address], [place] [address] Dec, [facility] [address] [id number] [address] [place] [address], [place] [address] Dec, [facility] [address] [id number] [address] [place] [address], [place] [address] Dec, [facility] [address] [id number] [address] [place] [address], [place] [address] Dec, [facility] [address] [id number] [address] [place] [address], [place] [address] Dec, [facility] [address] [id number] [address] [place] [address], [place] [address] Dec, [facility] [address] [id number] [address] [place] [address], [place] [address] Dec, [facility] [address] [id number] [address] [place] [address], [place] [address] Dec, [facility] [address] [id number] [address] [place] [address], [place] [address] Dec, [facility] [address] [id number] [address] [place] [address], [place] [address] October, [facility] [address] [id number] [address] [place] [address], [place] [address] October, [facility] [address] [id number] [address] [place] [address], [place] [address] Sep, [facility] [address] [id number] [address] [place] [address], [place] [address] 15 Sep, 2013 [facility] [address] [id number] [address] [place] [address], [place] [address] 07 Aug, 2013 [facility] [address] [id number] [address] [place] [address], [place] [address] 07 Aug, 2013 [facility] [address] [id number] [address] [place] [address], [place] [address] 07 Aug, 2013 [facility] [address] [id number] [address] [place] [address], [place] [address] 07 Aug, 2013 [facility] [address] [id number] [address] [place] [address], [place] [address] 17 Aug, 2013 [facility] [address] [id number] [address] [place] [address], [place] [address] 17 Aug, 2013 [facility] [address] [id number] [address] [place] [address], [place] [address] 14 Aug, 2013 [facility] [address] [id number] [address] [place] [address], [place] [address] 07 Aug, 2013 [facility] [address] [id number] [address] [place] [address], [place] [address] 07 Aug, 2013 [facility] [address] [id number] [address] [place] [address], [place] [address] Aug, [facility] [address] [id number] [address] [place] [address], [place] [address] Aug, [facility] [address] [id number] [address] [place] [address], [place] [address] Jul, [facility] [address] [id number] [address] [place] [address], [place] [address] Jul, [facility] [address] [id number] [address] [place] [address], [place] [address] May, [facility] [address] [id number] [address] [place] [address], [place] [address] May, [facility] [address] [id number] [address] [place] [address], [place] [address] May, [facility] [address] [id number] [address] [place] [address], [place] [address] May, [facility] [address] [id number] [address] [place] [address], [place] [address] May, [facility] [address] [id number] [address] [place] [address], [place] [address] May, [facility] [address] [id number] [address] [place] [address], [place] [address] May, [facility] [address] [id number] [address] [place] [address], [place] [address] May, [facility] [address] [id number] [address] [place] [address], [place] [address] May, [facility] [address] [id number] [address] [place] [address], [place] [address] May, [facility] [address] [id number] [address] [place] [address], [place] [address] May, [facility] [address] [id number] [address] [place] [address], [place] [address] May, [facility] [address] [id number] [address] [place] [address] May, [facility] [address] [id number] [address] [place] [id number] May, [facility] [address] [id number] [address] [place] [address], [place] [address] May, [facility] [address] [id number] [address] [place] [address], [place] [address] May, [facility] [address] [id number] [address] [place] [address], [place] [address] May, [facility] [address] [id number] [address] [place] [address], [place] [address] 18 May, 2013 [facility] [address] [id number] [address] [place] [address], [place] [address] 16 May, 2013 [facility] [address] [id number] [address] [place] [address], [place] [address] 16 May, 2013 [facility] [address] [id number] [address] [place] [address], [place] [address] May, [facility] [address] [id number] [address] [place] [address], [place] [address] May, [facility] [address] [id number] [address] [place] [address], [place] [address] May, [facility] [address] [id number] [address] [place] [address], [place] [address] May, [facility] [address] [id number] [address] [place] [address], [place] [address] May, [facility] [address] [id number] [address] [place] [address], [place] [address] May, [facility] [address] [id number] [address] [place] [address], [place] [address] May, [facility] [address] [id number] [address] [place] [address], [place] [address] 07 May, 2013 [facility] [address] [id number] [address] [place] [address], [place] [address] May, [facility] [address] [id number] [address] [place] [address], [place] [address] May, [facility] [address] [id number] [address] [place] [address], [place] [address] Mar, [facility] [address] [id number] [address] [place] [address], [place] [address] Mar, [facility] [address] [id number] [address] [place] [address], [place] [address] Mar, [facility] [address] [id number] [address] [place] [address], [place] [address] 31 Mar, 2012 [facility] [address] [id number] [address] [place] [address], [place] [address] 30 Mar, 2013 [facility] [address] [id number] [address] [place] [address], [place] [address] Mar, [facility] [address] [id number] [address] [place] [address], [place] [address] Mar, [facility] [address] [id number] [address] [place] [address], [place] [address] Mar, [facility] [address] [id number] [address] [place] [address], [place] [address] Mar, [facility] [address] [id number] [address] [place] [address], [place] [address] Mar, [facility] [address] [id number] [address] [place] [address] Mar, [facility] [address] [id number] [address] [place] [address], [place] [address] Mar, [facility] [address] [id number] [address] [place] [address] Mar, [facility] [address] [id number] [address] [place] [address] Mar, [facility] [address] [id number] [address] [place] [address] Mar, [facility] [address] [id number] [address] [place] [address] Mar, [facility] [address] [id number] [address] [place] [address] Mar, [facility] [address] [id number] [address] [place] [address] 18 Mar, 2013 [facility] [address] [id number] [address] [place] [address] 18 Mar, 2013 [facility] [address] [id number] [address] [place] [address], [place] [address] 18 Mar, 2013 [facility] [address] [id number] [address] [place] [address] 18 Mar, 2013 [facility] [address] [id number] [address] [place] [address], [place] [address] 14 Mar, 2013 [facility] [address] [id number] [address] [place] [address] 14 Mar, 2013 [facility] [address] [id number] 19 [place] [address], [place] [address] 10 Mar, 2013 [facility] [address] [id number] [address] [place] [id number] 18 Mar, 2013 [facility] [address] [id number] [address] [place] [id number] 12 Mar, 2013 [facility] [address] [id number] [address] [place] [id number] 11 Mar, 2013 [facility] [address] [id number] [address] [place] [id number] Jan, [facility] [address] [id number] [address] [place] [id number] October, [facility] [address] [id number] [address] [place] [id number] Sep, [facility] [address] [id number] [address] [place] [id number] 15 Sep, 2012 [facility] [address] [id number] [address] [place] [id number] Aug, [facility] [address] [id number] [address] [place] [id number] 06 Aug, 2012 [facility] [address] [id number] [address] [place] [id number] Aug, [facility] [address] [id number] [address] [place] [address], [place] [address] 17 Jul, 2012 [facility] [address] [id number] [address] [place] [address], [place] [address] 19 May, 2012 [facility] [address] [id number] [address] [place] [address], [place] [address] 19 May, 2012 [facility] [address] [id number] [address] [place] [address], [place] [address] 18 May, 2012 [facility] [address] [id number] [address] [place] [address], [place] [address] 18 May, 2012 [facility] [address] [id number] [address] [place] [address], [place] [address] 19 Mar, 2012 [facility] [address] [id number] [address] [place] [address], [place] [address] 19 Mar, 2012 [facility] [address] [id number] [address] [place] [address], [place] [address] 16 Mar, 2012 [facility] [address] [id number] [address] [place] [address], [place] [address] 25 Mar, 2012 [facility] [address] [id number] [address] [place] [address], [place] [address] 19 Mar, 2012 [facility] [address] [id number] [address] [place] [address], [place] [address] 13 Mar, 2012 [facility] [address] [id number] [address] [place] [address], [place] [address] 07 Mar, 2012 [facility] [address] [id number] [address] [place] [address], [place] [address] 30 Jan, 2012 [facility] [address] [id number] [address] [place] [address], [place] [address] 28 Jan, 2012 [facility] [address] [id number] [address] [place] [address], [place] [address] 20 Jan, 2012 [facility] [address] [id number] [address] [place] [address], [place] [address] Jan, [facility] [address] [id number] [address] [place] [address], [place] [address] Jan, [facility] [address] [id number] [address] [place] [address], [place] [address] Jan, [facility] [address] [id number] [address] [place] [address], [place] [address] Jan, [facility] [address] [id number] [address] [place] [address], [place] [address] Jan, [facility] [address] [id number] [address] [place] [address], [place] [address] Jan, [facility] [address] [id number] [address] [place] [address], [place] [address] Jan, [facility] [address] [id number] [address] [place] [address], [place] [address] Jan, [facility] [address] [id number] [address] [place] [address], [place] [address] Jan, [facility] [address] [id number] [address] [place] [address], [place] [address] Jan, [facility] [address] [id number] [address] [place] [address], [place] [address] Jan, [facility] [address] [id number] [address] [place] [address], [place] [address] Jan, [facility] [address] [id number] [address] [place] [address], [place] [address] Jan, [facility] [address] [id number] [address] [place] [address], [place] [address] Dec, [facility] [address] [id number] [address] [place] [address], [place] [address] Dec, [facility] [address] [id number] [address] [place] [address], [place] [address] Nov, [facility] [address] [id number] [address] [place] [address], [place] [address] 08 Nov, 2011 [facility] [address] [id number] [address] [place] [address], [place] [address] October, [facility] [address] [id number] [address] [place] [address], [place] [address] October, [facility] [address] [id number] [address] [place] [address], [place] [address] October, [facility] [address] [id number] [address] [place] [address], [place] [address] Sep, [facility] [address] [id number] [address] [place] [address], [place] [address] Sep, [facility] [address] [id number] [address] [place] [address], [place] [address] 30 Aug, 2011 [facility] [address] [id number] [address] [place] [address], [place] [address] 28 Aug, 2011 [facility] [address] [id number] [address] [place] [address], [place] [address] 26 Aug, 2011 [facility] [address] [id number] [address] [place] [address], [place] [address] 19 Aug, 2011 [facility] [address] [id number] [address] [place] [address], [place] [address] Aug, [facility] [address] [id number] [address] [place] [address], [place] [address] 14 Aug, 2011 [facility] [address] [id number] [address] [place] [address], [place] [address] 07 Aug, 2011 [facility] [address] [id number] [address] [place] [address], [place] [address] Jul, [facility] [address] [id number] [address] [place] [address], [place] [address] Jul, [facility] [address] [id number] [address] [place] [address], [place] [address] Jul, [facility] [address] [id number] [address] [place] [address], [place] [address] May, [facility] [address] [id number] [address] [place] [address], [place] [address] May, [facility] [address] [id number] [address] [place] [address], [place] [address] May, [facility] [address] [id number] [address] [place] [address], [place] [address] May, [facility] [address] [id number] [address] [place] [address], [place] [address] May, [facility] [address] [id number] [address] [place] [address], [place] [address] May, [facility] [address] [id number] [address] [place] [address], [place] [address] May, [facility] [address] [id number] [address] [place] [address], [place] [address] Mar, [facility] [address] [id number] [address] [place] [address], [place] [address] Mar, [facility] [address] [id number] [address] [place] [address] Mar, [facility] [address] [id number] [address] [place] [address] 15 Mar, 2011 [facility] [address] [id number] [address] [place] [address] Mar, [facility] [address] [id number] [address] [place] [address], [place] [address] Mar, [facility] [address] [id number] [address] [place] [id number] Jan, [facility] [address] [id number] [address] [place] [id number] 31 May, 2009 [facility] [address] [id number] [address] [place] [address] May, [facility] [place] [address] [facility] [id number] [address] [place] [id number] May, [facility] [place] [address] [facility] [id number] [address] [place] [id number] May, [facility] [place] [address] [facility] [id number] [address] [place] [address] May, [facility] [place] [address] [facility] [id number] [address] [place] [id number] May, [facility] [place] [address] [facility] [id number] [address] [place] [id number] Mar, [facility] [place] [address] [facility] [id number] [address] [place] [id number] Sep, IMMUNIZATIONS No Known Immunizations SOCIAL HISTORY Never Assessed REASON FOR VISIT PLAN OF CARE VITAL SIGNS Height 64 in 2013-04-13 Weight 133.4 lbs 2013-04-13 Temperature 97.6 degrees Fahrenheit 2013-04-13 Heart Rate 88 bpm 2013-04-13 Respiratory Rate 20 2013-04-13 Blood pressure systolic 120 mmHg 2013-04-13 Blood pressure diastolic 70 mmHg 2013-04-13 MEDICATIONS Unknown Medications RESULTS No Results PROCEDURES [...]
[2019-12-30] MEDS ORDERED: LACTATED RINGERS 1,000 ML IV ONE (23:34)
[2019-12-30] MEDS ORDERED: KETOROLAC 30 MG/ML VIAL IVP STA (23:34)
--- OUTSIDE RECORDS SUMMARY | 2019-12-30 23:34 | XMS REPORT ---
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 [place] [address] Jan, Carpal tunnel syndrome, righ t upper limb G56.01 [facility] [address] [facility] [id number] [address] [place] [address] Jan, Bilateral otitis media, unsp ecified chronicity, unspecified otitis media type H66.93 [facility] [address] [facility] [id number] [address] [place] [address] Jan, Lumbago with sciatica, left side M54.42 [facility] [address] [facility] [id number] [address] [place] [address] Jan, [facility] [address] [facility] [id number] [address] [place] [address] Jan, [facility] [address] [facility] [id number] [address] [place] [address] Jan, Sore throat J02.9 ; Carpal t unnel syndrome, left upper limb G56.02 and Carpal tunnel syndrome, right upper limb G56.01 [facility] [address] [facility] [id number] [address] [place] [address] Dec, [facility] [address] [facility] [id number] [address] [place] [address] Dec, [facility] [address] [facility] [id number] [address] [place] [address] Dec, [facility] [address] [id number] [address] [place] [address] Dec, [facility] [address] [id number] [address] [place] [address] Dec, Lumbago with sciatica, left side M54.42 [facility] [address] [id number] [address] [place] [address] Dec, Anxiety F41.9 [facility] [address] [id number] [address] [place] [address] Dec, Tremor R25.1 ; Back pain wit h right-sided radiculopathy M54.[address] [facility] [address] [id number] [address] [place] [address] Dec, [facility] [address] [id number] [place] [address] Dec, [facility] [address] [id number] [address] [place] [address] Dec, Lumbago with sciatica, left side M54.42 [facility] [address] [id number] [address] [place] [address] Dec, Dizziness R42 [facility] [address] [id number] [address] [place] [address] Nov, [facility] [address] [id number] [address] [place] [address] Nov, Lumbago with sciatica, left side M54.42 and Lumbago with sciatica, right side M54.41 [facility] [address] [id number] [address] [place] [address] Nov, Anxiety F41.9 [facility] [address] [id number] [address] [place] [address] Nov, [facility] [address] [id number] [address] [place] [address] Nov, Headache R51 [facility] [address] [facility] [id number] [address] [place] [address] October, Encounter for Depo-Provera c ontraception Z30.42 [facility] [address] [facility] [id number] [address] [place] [address] October, Anxiety F41.9 [facility] [address] [facility] [id number] [address] [place] [address] October, Anxiety F41.9 [facility] [address] [facility] [id number] [address] [place] [address] October, [facility] [address] [place] [id number] [place] [address] October, Vaginal yeast infection B37. 3 [facility] [address] [facility] [id number] [address] [place] [address] October, [facility] [address] [facility] [id number] [address] [place] [address] October, Headache R51 [facility] [address] [address] Sep, [facility] [address] [place] [id number] [address] [place] [address] Sep, [facility] [address] [facility] [id number] [address] [place] [address] Sep, Headache R51 [facility] [address] [facility] [id number] [address] [place] [address] Sep, [facility] [address] [place] [id number] [address] [place] [address] Sep, Headache R51 [facility] [address] [facility] [id number] [address] [place] [address] Aug, 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 [facility] [address] [facility] [id number] [address] [place] [address] 24 Aug, 2015 [facility] [address] [facility] [id number] [address] [place] [address] Aug, Headache R51 ; Forgetfulness R68.[address] scan, head R93.0 [facility] [address] [facility] [id number] [address] [place] [address] [address], 2015 [facility] [address] [place] [id number] [place] [address] 15 Aug, 2015 [facility] [address] [place] [id number] [address] [place] [address] 14 Aug[address] 2015 [facility] [address] [place] [id number] [place] [address] Aug, Headache R51 [facility] [address] [place] [id number] [place] [address] 08 Aug, 2015 Abnormal computed tomography angiography of head R93.0 [facility] [address] [place] [id number] [place] [address] [address], [address] of the head R93. 0 [facility] [address] [place] [id number] [address] [place] [address] Aug, Headache R51 ; Nausea R11.[address] [facility] [address] [place] [id number] [address] [place] [address] Aug, Mental disor NOS oth dis F99 ; Unspecified mood [affective] disorder F39 and Anxiety disorder, unspecified F41.9 [facility] [address] [place] [id number] [address] [place] [address] Aug, [facility] [address] [place] [id number] [address] [place] [address] Aug, [facility] [address] [place] [id number] [address] [place] [address] Aug, Encounter for Depo-Provera c ontraception Z30.42 [facility] [address] [facility] [id number] [address] [place] [address] Jul, [facility] [address] [place] [id number] [address] [place] [address] Jul, Contusion of unspecified fin laura without damage to nail, subsequent encounter S60.00XD [facility] [address] [facility] [id number] [address] [place] [address] May, [facility] [address] [facility] [id number] [address] [place] [address] May, [facility] [address] [place] [id number] [address] [place] [id number] 16 May, [address] [facility] [address] [place] [address] May, Hematuria R31.9 [facility] [address] [place] [id number] [address] [place] [address] May, [facility] [address] [address] May, Generalized anxiety disorder F41.1 [facility] [address] [place] [address] May, [facility] [address] [place] [address] May, [facility] [address] [place] [id number] [address] [place] [address] May, [facility] [address] [place] [id number] [address] [place] [address] Mar, Upper respiratory tract infe ction, unspecified upper respiratory infection J06.9 ; Anaphylaxis, subsequent encounter T78.2XXD ; Encounter for Depo-Provera contraception Z30.42 and Encounter for surveillance of injectable contraceptive Z30.42 [facility] [address] [place] [id number] [address] [place] [address] Mar, [facility] [address] [id number] [address] [place] [address] Mar, [facility] [address] [id number] [address] [place] [address] Mar, [facility] [address] [id number] [address] [place] [address] Mar, [facility] [address] [id number] [address] [place] [address] Mar, [facility] [address] [id number] [address] [place] [address] Jan, [facility] [address] [id number] [address] [place] [address] Jan, [facility] [address] [id number] [address] [place] [address] Jan, [facility] [address] [id number] [address] [place] [address] Dec, [facility] [address] [id number] [address] [place] [address] [id number] Dec, Dental examination V72.2 [facility] [address] [id number] [address] [place] [address] Dec, [facility] [address] [id number] [address] [place] [address] Nov, [facility] [address] [id number] [address] [place] [address] Nov, [facility] [address] [id number] [address] [place] [address] Nov, Abdominal pain 789.00 and Na usea and vomiting 787.01 [facility] [address] [id number] [address] [place] [address] Nov, UTI (lower urinary tract inf ection) 599.0 and Abdominal pain 789.00 [facility] [address] [id number] [address] [place] [address] October, [facility] [address] [id number] [address] [place] [address] Sep, [facility] [address] [id number] [address] [place] [address] Sep, [facility] [address] [id number] [address] [place] [address] Aug, [facility] [address] [id number] [address] [place] [address] Aug, [facility] [address] [id number] [address] [place] [address] Aug, [facility] [address] [id number] [address] [place] [address] Aug, [facility] [address] [id number] [address] [place] [address] Aug, [facility] [address] [id number] [address] [place] [address] Aug, [facility] [address] [id number] [address] [place] [address] Aug, [facility] [address] [id number] [address] [place] [address] Aug, [facility] [address] [id number] [address] [place] [address] Jul, [facility] [address] [id number] [address] [place] [address] Jul, [facility] [address] [id number] [address] [place] [address] Jul, [facility] [address] [id number] [address] [place] [address] Jul, [facility] [address] [id number] [address] [place] [address], [place] [address] Jul, [facility] [address] [id number] [address] [place] [address], [place] [address] Jul, [facility] [address] [id number] [address] [place] [address], [place] [address] Jul, [facility] [address] [id number] [address] [place] [address], [place] [address] Jul, [facility] [address] [id number] [address] [place] [address], [place] [address] Jul, [facility] [address] [id number] [address] [place] [address], [place] [id number] Jul, [facility] [address] [id number] [address] [place] [address], [place] [id number] Jul, [facility] [address] [id number] [address] [place] [address], [place] [id number] Jul, [facility] [address] [id number] [address] [place] [address], [place] [id number] May, [facility] [address] [id number] [address] [place] [address], [place] [id number] May, [facility] [address] [id number] [address] [place] [address], [place] [address] May, [facility] [address] [id number] [address] [place] [address], [place] [id number] May, [facility] [address] [id number] [address] [place] [address], [place] [id number] May, [facility] [address] [id number] [address] [place] [address], [place] [id number] May, [facility] [address] [id number] [address] [place] [address], [place] [id number] May, [facility] [address] [id number] [address] [place] [address], [place] [id number] May, [facility] [address] [id number] [address] [place] [address], [place] [id number] May, [facility] [address] [id number] [address] [place] [address], [place] [id number] May, [facility] [address] [id number] [address] [place] [address], [place] [id number] May, [facility] [address] [id number] [address] [place] [address], [place] [id number] May, [facility] [address] [id number] [address] [place] [address], [place] [id number] May, [facility] [address] [id number] [address] [place] [address], [place] [id number] May, [facility] [address] [id number] [address] [place] [address], [place] [id number] May, [facility] [address] [id number] [address] [place] [address], [place] [address] May, [facility] [address] [id number] [address] [place] [address], [place] [id number] May, [facility] [address] [id number] [address] [place] [address], [place] [id number] May, [facility] [address] [id number] [address] [place] [address], [place] [id number] May, [facility] [address] [id number] [address] [place] [address], [place] [id number] May, [facility] [address] [id number] [address] [place] [address], [place] [address] May, [facility] [address] [id number] [address] [place] [address], [place] [id number] May, [facility] [address] [id number] [address] [place] [address], [place] [id number] 15 May, 2014 [facility] [address] [id number] [address] [place] [address], [place] [id number] 15 May, 2014 [facility] [address] [id number] [address] [place] [address], [place] [id number] May, [facility] [address] [id number] [address] [place] [address], [place] [id number] May, [facility] [address] [id number] [address] [place] [address], [place] [id number] May, [facility] [address] [id number] [address] [place] [address], [place] [id number] May, [facility] [address] [id number] [address] [place] [address], [place] [id number] May, [facility] [address] [id number] [address] [place] [address], [place] [address] May, [facility] [address] [id number] [address] [place] [address], [place] [id number] May, [facility] [address] [id number] [address] [place] [address], [place] [address] May, [facility] [address] [id number] [address] [place] [address], [place] [address] May, [facility] [address] [id number] [address] [place] [address], [place] [address] May, [facility] [address] [id number] [address] [place] [address], [place] [address] May, [facility] [address] [id number] [address] [place] [address], [place] [address] Mar, [facility] [address] [id number] [address] [place] [address], [place] [address] Mar, [facility] [address] [id number] [address] [place] [address], [place] [address] Mar, [facility] [address] [id number] [address] [place] [address], [place] [address] Mar, [facility] [address] [id number] [address] [place] [address], [place] [address] Mar, [facility] [address] [id number] [address] [place] [address], [place] [address] Mar, [facility] [address] [id number] [address] [place] [address], [place] [address] Mar, [facility] [address] [id number] [address] [place] [address], [place] [address] Mar, [facility] [address] [id number] [address] [place] [address], [place] [address] Mar, [facility] [address] [id number] [address] [place] [address], [place] [address] Mar, [facility] [address] [id number] [address] [place] [address], [place] [address] Mar, [facility] [address] [id number] [address] [place] [address], [place] [address] Mar, [facility] [address] [id number] [address] [place] [address], [place] [address] Mar, [facility] [address] [id number] [address] [place] [address], [place] [address] Mar, [facility] [address] [id number] [address] [place] [address], [place] [address] Jan, [facility] [address] [id number] [address] [place] [address], [place] [address] Jan, [facility] [address] [id number] [address] [place] [address], [place] [address] Jan, [facility] [address] [id number] [address] [place] [address], [place] [address] Jan, [facility] [address] [id number] [address] [place] [address], [place] [address] Jan, [facility] [address] [id number] [address] [place] [address], [place] [address] Jan, [facility] [address] [id number] [address] [place] [address], [place] [address] Jan, [facility] [address] [id number] [address] [place] [address], [place] [address] Jan, [facility] [address] [id number] [address] [place] [address], [place] [address] Jan, [facility] [address] [id number] [address] [place] [address], [place] [address] Dec, [facility] [address] [id number] [address] [place] [address], [place] [address] Dec, [facility] [address] [id number] [address] [place] [address], [place] [address] Dec, [facility] [address] [id number] [address] [place] [address], [place] [address] Dec, [facility] [address] [id number] [address] [place] [address], [place] [address] Dec, [facility] [address] [id number] [address] [place] [address], [place] [address] Dec, [facility] [address] [id number] [address] [place] [address], [place] [address] Dec, [facility] [address] [id number] [address] [place] [address], [place] [address] Dec, [facility] [address] [id number] [address] [place] [address], [place] [address] Dec, [facility] [address] [id number] [address] [place] [address], [place] [address] October, [facility] [address] [id number] [address] [place] [address], [place] [address] October, [facility] [address] [id number] [address] [place] [address], [place] [address] Sep, [facility] [address] [id number] [address] [place] [address], [place] [address] 15 Sep, 2013 [facility] [address] [id number] [address] [place] [address], [place] [address] 07 Aug, 2013 [facility] [address] [id number] [address] [place] [address], [place] [address] 07 Aug, 2013 [facility] [address] [id number] [address] [place] [address], [place] [address] 07 Aug, 2013 [facility] [address] [id number] [address] [place] [address], [place] [address] 07 Aug, 2013 [facility] [address] [id number] [address] [place] [address], [place] [address] 17 Aug, 2013 [facility] [address] [id number] [address] [place] [address], [place] [address] 17 Aug, 2013 [facility] [address] [id number] [address] [place] [address], [place] [address] 14 Aug, 2013 [facility] [address] [id number] [address] [place] [address], [place] [address] 07 Aug, 2013 [facility] [address] [id number] [address] [place] [address], [place] [address] 07 Aug, 2013 [facility] [address] [id number] [address] [place] [address], [place] [id number] Aug, [facility] [address] [id number] [address] [place] [address], [place] [address] Aug, [facility] [address] [id number] [address] [place] [address], [place] [address] Jul, [facility] [address] [id number] [address] [place] [address], [place] [address] Jul, [facility] [address] [id number] [address] [place] [address], [place] [address] May, [facility] [address] [id number] [address] [place] [address], [place] [address] May, [facility] [address] [id number] [address] [place] [address], [place] [address] May, [facility] [address] [id number] [address] [place] [address], [place] [address] May, [facility] [address] [id number] [address] [place] [address], [place] [address] May, [facility] [address] [id number] [address] [place] [address], [place] [address] May, [facility] [address] [id number] [address] [place] [address], [place] [address] May, [facility] [address] [id number] [address] [place] [address], [place] [address] May, [facility] [address] [id number] [address] [place] [address], [place] [address] May, [facility] [address] [id number] [address] [place] [address], [place] [address] May, [facility] [address] [id number] [address] [place] [address], [place] [address] May, [facility] [address] [id number] [address] [place] [address], [place] [address] May, [facility] [address] [id number] [address] [place] [address] May, [facility] [address] [id number] [address] [place] [address] May, [facility] [address] [id number] [address] [place] [address], [place] [address] May, [facility] [address] [id number] [address] [place] [address], [place] [address] May, [facility] [address] [id number] [address] [place] [address], [place] [address] May, [facility] [address] [id number] [address] [place] [address], [place] [address] 18 May, 2013 [facility] [address] [id number] [address] [place] [address], [place] [address] 16 May, 2013 [facility] [address] [id number] [address] [place] [address], [place] [address] 16 May, 2013 [facility] [address] [id number] [address] [place] [address], [place] [address] May, [facility] [address] [id number] [address] [place] [address], [place] [address] May, [facility] [address] [id number] [address] [place] [address], [place] [address] May, [facility] [address] [id number] [address] [place] [address], [place] [address] May, [facility] [address] [id number] [address] [place] [address], [place] [address] May, [facility] [address] [id number] [address] [place] [address], [place] [address] May, [facility] [address] [id number] [address] [place] [address], [place] [address] May, [facility] [address] [id number] [address] [place] [address], [place] [address] 07 May, 2013 [facility] [address] [id number] [address] [place] [address], [place] [address] May, [facility] [address] [id number] [address] [place] [address], [place] [address] May, [facility] [address] [id number] [address] [place] [address], [place] [address] Mar, [facility] [address] [id number] [address] [place] [address], [place] [address] Mar, [facility] [address] [id number] [address] [place] [address], [place] [address] Mar, [facility] [address] [id number] [address] [place] [address], [place] [address] 31 Mar, 2012 [facility] [address] [id number] [address] [place] [address], [place] [address] 30 Mar, 2013 [facility] [address] [id number] [address] [place] [address], [place] [address] Mar, [facility] [address] [id number] [address] [place] [address], [place] [address] Mar, [facility] [address] [id number] [address] [place] [address], [place] [address] Mar, [facility] [address] [id number] [address] [place] [address], [place] [address] Mar, [facility] [address] [id number] [address] [place] [address], [place] [address] Mar, [facility] [address] [id number] [address] [place] [address] Mar, [facility] [address] [id number] [address] [place] [address], [place] [address] Mar, [facility] [address] [id number] [address] [place] [address] Mar, [facility] [address] [id number] [address] [place] [address] Mar, [facility] [address] [id number] [address] [place] [address] Mar, [facility] [address] [id number] [address] [place] [address] Mar, [facility] [address] [id number] [address] [place] [address] Mar, [facility] [address] [id number] [address] [place] [address] 18 Mar, 2013 [facility] [address] [id number] [address] [place] [address] 18 Mar, 2013 [facility] [address] [id number] [address] [place] [address], [place] [address] 18 Mar, 2013 [facility] [address] [id number] [address] [place] [address] 18 Mar, 2013 [facility] [address] [id number] [address] [place] [address], [place] [address] 14 Mar, 2013 [facility] [address] [id number] [address] [place] [address] 14 Mar, 2013 [facility] [address] [id number] [address] [place] [address], [place] [address] 10 Mar, 2013 [facility] [address] [id number] [address] [place] [address] 18 Mar, 2013 [facility] [address] [id number] [address] [place] [address] 12 Mar, 2013 [facility] [address] [id number] [address] [place] [address] 11 Mar, 2013 [facility] [address] [id number] [address] [place] [address] Jan, [facility] [address] [id number] [address] [place] [address] October, [facility] [address] [id number] [address] [place] [address] Sep, [facility] [address] [id number] [address] [place] [address] 15 Sep, 2012 [facility] [address] [id number] [address] [place] [address] Aug, [facility] [address] [id number] [address] [place] [address] 06 Aug, 2012 [facility] [address] [id number] [address] [place] [address] Aug, [facility] [address] [id number] [address] [place] [address], [place] [address] 17 Jul, 2012 [facility] [address] [id number] [address] [place] [address], [place] [address] 19 May, 2012 [facility] [address] [id number] [address] [place] [address], [place] [address] 19 May, 2012 [facility] [address] [id number] [address] [place] [address], [place] [address] 18 May, 2012 [facility] [address] [id number] [address] [place] [address], [place] [address] 18 May, 2012 [facility] [address] [id number] [address] [place] [address], [place] [address] 19 Mar, 2012 [facility] [address] [id number] [address] [place] [address], [place] [address] 19 Mar, 2012 [facility] [address] [id number] [address] [place] [address], [place] [address] 16 Mar, 2012 [facility] [address] [id number] [address] [place] [address], [place] [address] 25 Mar, 2012 [facility] [address] [id number] [address] [place] [address], [place] [address] 19 Mar, 2012 [facility] [address] [id number] [address] [place] [address], [place] [address] 13 Mar, 2012 [facility] [address] [id number] [address] [place] [address], [place] [address] 07 Mar, 2012 [facility] [address] [id number] [address] [place] [address], [place] [id number] 30 Jan, 2012 [facility] [address] [id number] [address] [place] [address], [place] [address] 28 Jan, 2012 [facility] [address] [id number] [address] [place] [address], [place] [address] 20 Jan, 2012 [facility] [address] [id number] [address] [place] [address], [place] [address] Jan, [facility] [address] [id number] [address] [place] [address], [place] [address] Jan, [facility] [address] [id number] [address] [place] [address], [place] [address] Jan, [facility] [address] [id number] [address] [place] [address], [place] [address] Jan, [facility] [address] [id number] [address] [place] [address], [place] [id number] Jan, [facility] [address] [id number] [address] [place] [address], [place] [address] Jan, [facility] [address] [id number] [address] [place] [address], [place] [address] Jan, [facility] [address] [id number] [address] [place] [address], [place] [address] Jan, [facility] [address] [id number] [address] [place] [address], [place] [address] Jan, [facility] [address] [id number] [address] [place] [address], [place] [address] Jan, [facility] [address] [id number] [address] [place] [address], [place] [address] Jan, [facility] [address] [id number] [address] [place] [address], [place] [address] Jan, [facility] [address] [id number] [address] [place] [address], [place] [address] Jan, [facility] [address] [id number] [address] [place] [address], [place] [address] Dec, [facility] [address] [id number] [address] [place] [address], [place] [address] Dec, [facility] [address] [id number] [address] [place] [address], [place] [address] Nov, [facility] [address] [id number] [address] [place] [address], [place] [id number] 08 Nov, 2011 [facility] [address] [id number] [address] [place] [address], [place] [address] October, [facility] [address] [id number] [address] [place] [address], [place] [id number] October, [facility] [address] [id number] [address] [place] [address], [place] [address] October, [facility] [address] [id number] [address] [place] [address], [place] [id number] Sep, [facility] [address] [id number] [address] [place] [address], [place] [address] Sep, [facility] [address] [id number] [address] [place] [address], [place] [id number] 30 Aug, 2011 [facility] [address] [id number] [address] [place] [address], [place] [address] 28 Aug, 2011 [facility] [address] [id number] [address] [place] [address], [place] [address] 26 Aug, 2011 [facility] [address] [id number] [address] [place] [address], [place] [address] [address], [address] [facility] [address] [id number] [address] [place] [address], [place] [address] Aug, [facility] [address] [id number] [address] [place] [address], [place] [id number] 14 Aug, 2011 [facility] [address] [id number] [address] [place] [address], [place] [id number] 07 Aug, 2011 [facility] [address] [id number] [address] [place] [address], [place] [id number] Jul, [facility] [address] [id number] [address] [place] [address], [place] [id number] Jul, [facility] [address] [id number] [address] [place] [address], [place] [id number] Jul, [facility] [address] [id number] [address] [place] [address], [place] [id number] May, [facility] [address] [id number] [address] [place] [address], [place] [id number] May, [facility] [address] [id number] [address] [place] [address], [place] [id number] May, [facility] [address] [id number] [address] [place] [address], [place] [id number] May, [facility] [address] [id number] [address] [place] [address], [place] [id number] May, [facility] [address] [id number] [address] [place] [address], [place] [id number] May, [facility] [address] [id number] [address] [place] [address], [place] [id number] May, [facility] [address] [id number] [address] [place] [address], [place] [id number] Mar, [facility] [address] [id number] [address] [place] [address], [place] [id number] Mar, [facility] [address] [id number] [address] [place] [id number] Mar, [facility] [address] [id number] [address] [place] [id number] 15 Mar, 2011 [facility] [address] [id number] [address] [place] [id number] Mar, [facility] [address] [id number] [address] [place] [address], [place] [id number] Mar, [facility] [address] [id number] [address] [place] [id number] Jan, [facility] [address] [id number] [address] [place] [id number] 31 May, 2009 [facility] [address] [id number] [address] [place] [id number] [address], [address] [facility] [address] [facility] [id number] [address] [place] [id number] May, [facility] [address] [facility] [id number] [address] [place] [id number] May, [facility] [address] [facility] [id number] [address] [place] [id number] May, [facility] [address] [facility] [id number] [address] [place] [id number] May, [facility] [address] [facility] [id number] [address] [place] [id number] Mar, [facility] [address] [facility] [id number] [address] [place] [id number] Sep, IMMUNIZATIONS No Known Immunizations SOCIAL HISTORY Never Assessed REASON FOR VISIT PLAN OF CARE VITAL SIGNS MEDICATIONS Unknown Medications RESULTS No Results PROCEDURES Procedure Date Ordered Result Body Site RHEUMATOID FACTOR, QUANT Apr 28, 2013 C-REACTIVE PROTEIN Apr 28, 2013 ANTISTREPTOLYSIN O, TITER Apr 28, 2013 RBC SED RATE, AUTOMATED Apr 28, 2013 ASSAY OF BLOOD/URIC ACID Apr 28, 2013 ASSAY THYROID STIM HORMONE Apr 28, 2013 ACUTE HEPATITIS PANEL Apr 28, 2013 COMPREHEN METABOLIC PANEL Apr 28, 2013 VENIPUNCT, ROUTINE* Apr 28, 2013 INSTRUCTIONS MEDICATIONS ADMINISTERED No Known Medications [...]
--- OUTSIDE RECORDS SUMMARY | 2019-12-30 23:35 | XMS REPORT ---
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 [address] 07 Mar, 2016 Axillary abscess L02.419 [facility] [address] [id number] [address] [place] [id number] 07 Mar, 2016 [facility] [address] [id number] [address] [place] [address] Jan, [facility] [address] [id number] [address] [place] [address] Jan, Encounter for Depo-Provera c ontraception Z30.42 [facility] [address] [id number] [address] [place] [id number] Jan, [facility] [address] [facility] [id number] [address] [place] [id number] Jan, [facility] [address] [id number] [address] [place] [id number] Jan, [facility] [address] [facility] [id number] [address] [place] [address] Jan, Carpal tunnel syndrome, righ t upper limb G56.01 [facility] [address] [facility] [id number] [address] [place] [id number] Jan, Bilateral otitis media, unsp ecified chronicity, unspecified otitis media type H66.93 [facility] [address] [facility] [id number] [address] [place] [id number] Jan, Lumbago with sciatica, left side M54.42 [facility] [address] [facility] [id number] [address] [place] [id number] Jan, [facility] [address] [facility] [id number] [address] [place] [id number] Jan, [facility] [address] [facility] [id number] [address] [place] [phone] Jan, Sore throat J02.9 ; Carpal t unnel syndrome, left upper limb G56.02 and Carpal tunnel syndrome, right upper limb G56.01 [facility] [address] [facility] [id number] [address] [place] [id number] Dec, [facility] [address] [facility] [id number] [address] [place] [id number] Dec, [facility] [address] [facility] [id number] [address] [place] [phone] Dec, [facility] [address] [id number] [address] [place] [id number] Dec, [facility] [address] [id number] [address] [place] [id number] Dec, Lumbago with sciatica, left side M54.42 [facility] [address] [id number] [address] [place] [address] Dec, Anxiety F41.9 [facility] [address] [id number] [address] [place] [address] Dec, Tremor R25.1 ; Back pain wit h right-sided radiculopathy M54.10 and Headache R51 [facility] [address] [id number] [address] [place] [id number] Dec, [facility] [address] [id number] [address] [place] [id number] Dec, [facility] [address] [id number] [address] [place] [id number] Dec, Lumbago with sciatica, left side M54.42 [facility] [address] [id number] [address] [place] [id number] Dec, Dizziness R42 [facility] [address] [id number] [address] [place] [address] Nov, [facility] [address] [id number] [address] [place] [id number] Nov, Lumbago with sciatica, left side M54.42 and Lumbago with sciatica, right side M54.41 [facility] [address] [id number] [address] [place] [address] Nov, Anxiety F41.9 [facility] [address] [id number] [address] [place] [id number] Nov, [facility] [address] [id number] [address] [place] [address] Nov, Headache R51 [facility] [address] [facility] [id number] [address] [place] [address] October, Encounter for Depo-Provera c ontraception Z30.42 [facility] [address] [facility] [id number] [address] [place] [id number] October, Anxiety F41.9 [facility] [address] [facility] [id number] [address] [place] [address] October, Anxiety F41.9 [facility] [address] [facility] [id number] [address] [place] [id number] October, [facility] [address] [facility] [id number] [address] [place] [address] October, Vaginal yeast infection B37. 3 [facility] [address] [facility] [id number] [address] [place] [id number] October, [facility] [address] [facility] [id number] [address] [place] [address] October, Headache R51 [facility] [address] [facility] [id number] [address] [place] [id number] Sep, [facility] [address] [facility] [id number] [address] [place] [id number] Sep, [facility] [address] [facility] [id number] [address] [place] [phone] Sep, Headache R51 [facility] [address] [facility] [id number] [address] [place] [id number] Sep, [facility] [address] [facility] [id number] [address] [place] [id number] Sep, Headache R51 [facility] [address] [facility] [id number] [address] [place] [phone] Aug, 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 and Headache R51 [facility] [address] [place] [id number] [address] [place] [phone] Aug, [facility] [address] [facility] [id number] [address] [place] [address] Aug, Headache R51 ; Forgetfulness R68.[address] scan, head R93.0 [facility] [address] [place] [id number] [address] [place] [id number] 16 Aug, 2015 [facility] [address] [place] [id number] [place] [address] 15 Aug, 2015 [facility] [address] [place] [id number] [place] [id number] Aug, [place] [address] [place] [id number] [place] [phone] Aug, Headache R51 [place] [address] [place] [id number] [place] [address] Aug, Abnormal computed tomography angiography of head R93.0 [place] [address] [place] [id number] [place] [address], [address] of the head R93. 0 [place] [address] [place] [id number] [place] [id number] Aug, Headache R51 ; Nausea R11.0 and Forgetfulness R68.89 [place] [address] [place] [id number] [place] [id number] Aug, Mental disor NOS oth dis F99 ; Unspecified mood [affective] disorder F39 and Anxiety disorder, unspecified F41.9 [facility] [address] [place] [id number] [address] [place] [id number] Aug, [facility] [address] [place] [id number] [place] [id number] Aug, [facility] [address] [place] [id number] [address] [place] [address] Aug, Encounter for Depo-Provera c ontraception Z30.42 [facility] [address] [facility] [id number] [address] [place] [address] Jul, [facility] [address] [facility] [id number] [address] [place] [id number] Jul, Contusion of unspecified fin laura without damage to nail, subsequent encounter S60.00XD [facility] [address] [place] [id number] [address] [place] [id number] May, [facility] [address] [facility] [id number] [address] [place] [address] May, [facility] [address] [place] [id number] [place] [id number] 16 May, 2015 Dental examination Z01.20 [place] [address] [place] [id number] [address] [place] [id number] 15 May, 2015 Hematuria R31.9 [facility] [address] [place] [id number] [address] [place] [address] May, [facility] [address] [place] [id number] [place] [address] May, Generalized anxiety disorder F41.1 [facility] [address] [place] [id number] [address] [place] [address] 09 May, 2015 [facility] [id number] [place] [address] May, [facility] [address] [place] [id number] [address] [place] [id number] May, [facility] [address] [place] [id number] [address] [place] [id number] Mar, Upper respiratory tract infe ction, unspecified upper respiratory infection J06.9 ; Anaphylaxis, subsequent encounter T78.2XXD ; Encounter for Depo-Provera contraception Z30.42 and Encounter for surveillance of injectable contraceptive Z30.42 [facility] [address] [place] [id number] [address] [place] [address] Mar, [facility] [address] [id number] [address] [place] [phone] Mar, [facility] [address] [id number] [address] [place] [id number] Mar, [facility] [address] [id number] [address] [place] [address] Mar, [facility] [address] [id number] [address] [place] [id number] Mar, [facility] [address] [id number] [address] [place] [id number] Jan, [facility] [address] [id number] [address] [place] [address] Jan, [facility] [address] [id number] [address] [place] [id number] Jan, [facility] [address] [id number] [address] [place] [id number] Dec, [facility] [address] [id number] [address] [place] [id number] Dec, Dental examination V72.2 [facility] [address] [id number] [address] [place] [id number] Dec, [facility] [address] [id number] [address] [place] [id number] Nov, [facility] [address] [id number] [address] [place] [id number] Nov, [facility] [address] [id number] [address] [place] [address] Nov, Abdominal pain 789.00 and Na usea and vomiting 787.01 [facility] [address] [id number] [address] [place] [address] Nov, UTI (lower urinary tract inf ection) 599.0 and Abdominal pain 789.00 [facility] [address] [id number] [address] [place] [address], [place] [address] October, [facility] [address] [id number] [address] [place] [id number] Sep, [facility] [address] [id number] [address] [place] [id number] Sep, [facility] [address] [id number] [address] [place] [id number] Aug, [facility] [address] [id number] [address] [place] [address], [place] [address] Aug, [facility] [address] [id number] [address] [place] [id number] Aug, [facility] [address] [id number] [address] [place] [id number] Aug, [facility] [address] [id number] [address] [place] [id number] Aug, [facility] [address] [id number] [address] [place] [id number] Aug, [facility] [address] [id number] [address] [place] [id number] Aug, [facility] [address] [id number] [address] [place] [id number] Aug, [facility] [address] [id number] [address] [place] [id number] Jul, [facility] [address] [id number] [address] [place] [id number] Jul, [facility] [address] [id number] [address] [place] [id number] Jul, [facility] [address] [id number] [address] [place] [id number] Jul, [facility] [address] [id number] [address] [place] [address], [place] [id number] Jul, [facility] [address] [id number] [address] [place] [address], [place] [id number] Jul, [facility] [address] [id number] [address] [place] [address], [place] [id number] Jul, [facility] [address] [id number] [address] [place] [address], [place] [id number] Jul, [facility] [address] [id number] [address] [place] [address], [place] [id number] Jul, [facility] [address] [id number] [address] [place] [address], [place] [id number] Jul, [facility] [address] [id number] [address] [place] [address], [place] [id number] Jul, [facility] [address] [id number] [address] [place] [address], [place] [address] Jul, [facility] [address] [id number] [address] [place] [address], [place] [address] May, [facility] [address] [id number] [address] [place] [address], [place] [address] May, [facility] [address] [id number] [address] [place] [address], [place] [address] May, [facility] [address] [id number] [address] [place] [address], [place] [address] May, [facility] [address] [id number] [address] [place] [address], [place] [address] May, [facility] [address] [id number] [address] [place] [address], [place] [address] May, [facility] [address] [id number] [address] [place] [address], [place] [address] May, [facility] [address] [id number] [address] [place] [address], [place] [address] May, [facility] [address] [id number] [address] [place] [address], [place] [address] May, [facility] [address] [id number] [address] [place] [address], [place] [address] May, [facility] [address] [id number] [address] [place] [address], [place] [address] May, [facility] [address] [id number] [address] [place] [address], [place] [address] May, [facility] [address] [id number] [address] [place] [address], [place] [address] May, [facility] [address] [id number] [address] [place] [address], [place] [address] May, [facility] [address] [id number] [address] [place] [address], [place] [address] May, [facility] [address] [id number] [address] [place] [address], [place] [address] May, [facility] [address] [id number] [address] [place] [address], [place] [address] May, [facility] [address] [id number] [address] [place] [address], [place] [address] May, [facility] [address] [id number] [address] [place] [address], [place] [address] May, [facility] [address] [id number] [address] [place] [address], [place] [address] May, [facility] [address] [id number] [address] [place] [address], [place] [address] May, [facility] [address] [id number] [address] [place] [address], [place] [address] May, [facility] [address] [id number] [address] [place] [address], [place] [address] 15 May, 2014 [facility] [address] [id number] [address] [place] [address] May, [facility] [address] [id number] [address] [place] [address], [place] [address] May, [facility] [address] [id number] [address] [place] [address], [place] [address] May, [facility] [address] [id number] [address] [place] [address], [place] [address] May, [facility] [address] [id number] [address] [place] [address], [place] [address] May, [facility] [address] [id number] [address] [place] [address], [place] [address] May, [facility] [address] [id number] [address] [place] [address], [place] [address] May, [facility] [address] [id number] [address] [place] [address], [place] [address] May, [facility] [address] [id number] [address] [place] [address], [place] [address] May, [facility] [address] [id number] [address] [place] [address], [place] [address] May, [facility] [address] [id number] [address] [place] [address], [place] [address] May, [facility] [address] [id number] [address] [place] [address] May, [facility] [address] [id number] [address] [place] [address] Mar, [facility] [address] [id number] [address] [place] [address], [place] [address] Mar, [facility] [address] [id number] [address] [place] [address], [place] [address] Mar, [facility] [address] [id number] [address] [place] [address], [place] [address] Mar, [facility] [address] [id number] [facility] [place] [address] Mar, [facility] [address] [id number] [address] [place] [address], [place] [address] Mar, [facility] [address] [id number] [address] [place] [address], [place] [address] Mar, [facility] [address] [id number] [address] [place] [address], [place] [address] Mar, [facility] [address] [id number] [address] [place] [address], [place] [address] Mar, [facility] [address] [id number] [address] [place] [address], [place] [address] 24 Mar, 2014 [facility] [address] [id number] [address] [place] [address], [place] [address] Mar, [facility] [address] [id number] [address] [place] [address], [place] [address] Mar, [facility] [address] [id number] [address] [place] [address], [place] [address] Mar, [facility] [address] [id number] [address] [place] [address], [place] [address] Mar, [facility] [address] [id number] [address] [place] [address], [place] [address] Jan, [facility] [address] [id number] [address] [place] [address], [place] [address] Jan, [facility] [address] [id number] [address] [place] [address], [place] [address] Jan, [facility] [address] [id number] [address] [place] [address], [place] [address] Jan, [facility] [address] [id number] [address] [place] [address], [place] [address] Jan, [facility] [address] [id number] [address] [place] [address], [place] [address] Jan, [facility] [address] [id number] [facility] [place] [address] Jan, [facility] [address] [id number] [address] [place] [address], [place] [address] Jan, [facility] [address] [id number] [address] [place] [address], [place] [address] Jan, [facility] [address] [id number] [address] [place] [address], [place] [address] Dec, [facility] [address] [id number] [address] [place] [address], [place] [address] Dec, [facility] [address] [id number] [address] [place] [address], [place] [address] Dec, [facility] [address] [id number] [address] [place] [address], [place] [address] Dec, [facility] [address] [id number] [address] [place] [address], [place] [address] Dec, [facility] [address] [id number] [address] [place] [address], [place] [address] Dec, [facility] [address] [id number] [address] [place] [address], [place] [address] Dec, [facility] [address] [id number] [address] [place] [address], [place] [address] Dec, [facility] [address] [id number] [address] [place] [address], [place] [address] Dec, [facility] [address] [id number] [address] [place] [address], [place] [address] October, [facility] [address] [id number] [address] [place] [address], [place] [address] October, [facility] [address] [id number] [address] [place] [address], [place] [address] Sep, [facility] [address] [id number] [address] [place] [address], [place] [address] 15 Sep, 2013 [facility] [address] [id number] [address] [place] [address], [place] [address] 07 Aug, 2013 [facility] [address] [id number] [address] [place] [address], [place] [address] 07 Aug, 2013 [facility] [address] [id number] [address] [place] [address], [place] [address] 07 Aug, 2013 [facility] [address] [id number] [address] [place] [address], [place] [address] 07 Aug, 2013 [facility] [address] [id number] [address] [place] [address], [place] [address] 17 Aug, 2013 [facility] [address] [id number] [address] [place] [address], [place] [address] 17 Aug, 2013 [facility] [address] [id number] [address] [place] [address], [place] [address] 14 Aug, 2013 [facility] [address] [id number] [address] [place] [address], [place] [address] 07 Aug, 2013 [facility] [address] [id number] [address] [place] [address], [place] [address] 07 Aug, 2013 [facility] [address] [id number] [address] [place] [address], [place] [address] 04 Aug, 2013 [facility] [address] [id number] [address] [place] [address], [place] [address] Aug, [facility] [address] [id number] [address] [place] [address], [place] [address] Jul, [facility] [address] [id number] [address] [place] [address], [place] [address] Jul, [facility] [address] [id number] [address] [place] [address], [place] [address] May, [facility] [address] [id number] [address] [place] [address], [place] [address] May, [facility] [address] [id number] [address] [place] [address], [place] [address] May, [facility] [address] [id number] [address] [place] [address], [place] [address] May, [facility] [address] [id number] [address] [place] [address], [place] [address] May, [facility] [address] [id number] [address] [place] [address], [place] [address] May, [facility] [address] [id number] [address] [place] [address], [place] [address] May, [facility] [address] [id number] [address] [place] [address], [place] [address] May, [facility] [address] [id number] [address] [place] [address], [place] [address] May, [facility] [address] [id number] [address] [place] [address], [place] [address] May, [facility] [address] [id number] [address] [place] [address], [place] [address] May, [facility] [address] [id number] [address] [place] [address] May, [facility] [address] [id number] [address] [place] [address] May, [facility] [address] [id number] [address] [place] [address] May, [facility] [address] [id number] [address] [place] [address], [place] [address] May, [facility] [address] [id number] [address] [place] [address], [place] [address] May, [facility] [address] [id number] [address] [place] [address] 18 May, 2013 [facility] [address] [id number] [address] [place] [address] 18 May, 2013 [facility] [address] [id number] [address] [place] [address], [place] [address] 16 May, 2013 [facility] [address] [id number] [address] [place] [address] 16 May, 2013 [facility] [address] [id number] [address] [place] [address] May, [facility] [address] [id number] [address] [place] [address] May, [facility] [address] [id number] [address] [place] [address] May, [facility] [address] [id number] [address] [place] [address] May, [facility] [address] [id number] [address] [place] [address] May, [facility] [address] [id number] [address] [place] [address] May, [facility] [address] [id number] [address] [place] [address] May, [facility] [address] [id number] [address] [place] [address] May, [facility] [address] [id number] [address] [place] [address] May, [facility] [address] [id number] [address] [place] [address] May, [facility] [address] [id number] [address] [place] [address] Mar, [facility] [address] [id number] [address] [place] [address] Mar, [facility] [address] [id number] [address] [place] [id number] Mar, [facility] [address] [id number] [address] [place] [address], [place] [address] 31 Mar, 2012 [facility] [address] [id number] [address] [place] [address], [place] [address] 30 Mar, 2012 [facility] [address] [id number] [address] [place] [address], [place] [address] Mar, [facility] [address] [id number] [address] [place] [address], [place] [address] Mar, [facility] [address] [id number] [address] [place] [address], [place] [address] Mar, [facility] [address] [id number] [address] [place] [address], [place] [address] Mar, [facility] [address] [id number] [address] [place] [address], [place] [address] Mar, [facility] [address] [id number] [address] [place] [address], [place] [address] Mar, [facility] [address] [id number] [address] [place] [address], [place] [address] Mar, [facility] [address] [id number] [address] [place] [address], [place] [address] 24 Mar, 2013 [facility] [address] [id number] [address] [place] [address], [place] [address] Mar, [facility] [address] [id number] [address] [place] [address], [place] [address] Mar, [facility] [address] [id number] [address] [place] [address], [place] [address] Mar, [facility] [address] [id number] [address] [place] [address], [place] [address] Mar, [facility] [address] [id number] [address] [place] [address], [place] [address] 18 Mar, 2013 [facility] [address] [id number] [address] [place] [address] [address] 18 Mar, 2013 [facility] [address] [id number] [address] [place] [address], [place] [address] 18 Mar, 2013 [facility] [address] [id number] [address] [place] [address], [place] [address] 18 Mar, 2013 [facility] [address] [id number] [address] [place] [address], [place] [address] 14 Mar, 2013 [facility] [address] [id number] [address] [place] [address], [place] [address] 14 Mar, 2013 [facility] [address] [id number] [address] [place] [address], [place] [address] 10 Mar, 2013 [facility] [address] [id number] [address] [place] [address], [place] [address] 18 Mar, 2013 [facility] [address] [id number] [address] [place] [address], [place] [address] 12 Mar, 2013 [facility] [address] [id number] [address] [place] [address], [place] [address] 11 Mar, 2013 [facility] [address] [id number] [address] [place] [address], [place] [address] Jan, [facility] [address] [id number] [address] [place] [address] October, [facility] [address] [id number] [address] [place] [address], [place] [address] Sep, [facility] [address] [id number] [address] [place] [address] 15 Sep, 2012 [facility] [address] [id number] [address] [place] [address], [place] [address] Aug, [facility] [address] [id number] [address] [place] [address] 06 Aug, 2012 [facility] [address] [id number] [address] [place] [address] Aug, [facility] [address] [id number] [address] [place] [address], [place] [address] 17 Jul, 2012 [facility] [address] [id number] [address] [place] [address], [place] [address] 19 May, 2012 [facility] [address] [id number] [address] [place] [address], [place] [address] 19 May, 2012 [facility] [address] [id number] [address] [place] [address], [place] [address] 18 May, 2012 [facility] [address] [id number] [address] [place] [address], [place] [address] 18 May, 2012 [facility] [address] [id number] [address] [place] [address], [place] [address] 19 Mar, 2012 [facility] [address] [id number] [address] [place] [address], [place] [address] 19 Mar, 2012 [facility] [address] [id number] [address] [place] [address], [place] [address] 16 Mar, 2012 [facility] [address] [id number] [address] [place] [address], [place] [address] 25 Mar, 2012 [facility] [address] [id number] [address] [place] [address], [place] [address] 19 Mar, 2012 [facility] [address] [id number] [address] [place] [address], [place] [address] 13 Mar, 2012 [facility] [address] [id number] [address] [place] [address], [place] [address] 07 Mar, 2012 [facility] [address] [id number] [address] [place] [address], [place] [address] 30 Jan, 2012 [facility] [address] [id number] [address] [place] [address], [place] [address] 28 Jan, 2012 [facility] [address] [id number] [address] [place] [address], [place] [address] 20 Jan, 2012 [facility] [address] [id number] [address] [place] [address], [place] [address] Jan, [facility] [address] [id number] [address] [place] [address], [place] [address] Jan, [facility] [address] [id number] [address] [place] [address], [place] [address] Jan, [facility] [address] [id number] [address] [place] [address], [place] [address] Jan, [facility] [address] [id number] [address] [place] [address], [place] [address] Jan, [facility] [address] [id number] [address] [place] [address], [place] [address] Jan, [facility] [address] [id number] [address] [place] [address], [place] [address] Jan, [facility] [address] [id number] [address] [place] [address], [place] [address] Jan, [facility] [address] [id number] [address] [place] [address], [place] [address] Jan, [facility] [address] [id number] [address] [place] [address], [place] [address] Jan, [facility] [address] [id number] [address] [place] [address], [place] [address] Jan, [facility] [address] [id number] [address] [place] [address], [place] [address] Jan, [facility] [address] [id number] [address] [place] [address], [place] [address] Jan, [facility] [address] [id number] [address] [place] [address], [place] [address] Dec, [facility] [address] [id number] [address] [place] [address], [place] [address] Dec, [facility] [address] [id number] [address] [place] [address], [place] [address] Nov, [facility] [address] [id number] [address] [place] [address], [place] [address] 08 Nov, 2011 [facility] [address] [id number] [address] [place] [address], [place] [address] October, [facility] [address] [id number] [address] [place] [address], [place] [address] October, [facility] [address] [id number] [address] [place] [address], [place] [address] October, [facility] [address] [id number] [address] [place] [address], [place] [address] Sep, [facility] [address] [id number] [address] [place] [address], [place] [address] Sep, [facility] [address] [id number] [address] [place] [address], [place] [address] 30 Aug, 2011 [facility] [address] [id number] [address] [place] [address], [place] [address] Aug, [facility] [address] [id number] [address] [place] [address], [place] [address] Aug, [facility] [address] [id number] [address] [place] [address], [place] [address] Aug, [facility] [address] [id number] [address] [place] [address], [place] [address] Aug, [facility] [address] [id number] [address] [place] [address], [place] [address] 14 Aug, 2011 [facility] [address] [id number] [address] [place] [address], [place] [address] Aug, [facility] [address] [id number] [address] [place] [address], [place] [address] Jul, [facility] [address] [id number] [address] [place] [address], [place] [address] Jul, [facility] [address] [id number] [address] [place] [address], [place] [address] Jul, [facility] [address] [id number] [address] [place] [address], [place] [address] 28 May, 2011 [facility] [address] [id number] [address] [place] [address], [place] [address] 28 May, 2011 [facility] [address] [id number] [address] [place] [address], [place] [address] May, [facility] [address] [id number] [address] [place] [address], [place] [address] 19 May, 2011 [facility] [address] [id number] [address] [place] [address], [place] [address] May, [facility] [address] [id number] [address] [place] [address], [place] [address] May, [facility] [address] [id number] [address] [place] [address], [place] [address] May, [facility] [address] [id number] [address] [place] [address], [place] [address] 25 Mar, 2011 [facility] [address] [id number] [address] [place] [address], [place] [address] Mar, [facility] [address] [id number] [address] [place] [address], [place] [id number] 19 Mar, 2011 [facility] [address] [id number] [address] [place] [address], [place] [id number] 15 Mar, 2011 [facility] [address] [id number] [address] [place] [address], [place] [id number] 27 Mar, 2010 [facility] [address] [id number] [address] [place] [address], [place] [id number] 13 Mar, 2010 [facility] [address] [id number] [address] [place] [address], [place] [id number] 10 Jan, 2010 [facility] [address] [id number] [address] [place] [address], [place] [id number] 31 May, 2009 [facility] [address] [id number] [address] [place] [address], [place] [id number] May, [facility] [address] [facility] [id number] [address] [place] [phone] May, [facility] [address] [facility] [id number] [address] [place] [phone] May, [facility] [address] [facility] [id number] [address] [place] [phone] May, [facility] [address] [facility] [id number] [address] [place] [phone] May, [facility] [address] [facility] [id number] [address] [place] [id number] Mar, [facility] [address] [facility] [id number] [address] [place] [id number] Sep, IMMUNIZATIONS No Known Immunizations SOCIAL HISTORY [...]
--- OUTSIDE RECORDS SUMMARY | 2019-12-30 23:35 | XMS REPORT ---
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 Mar, [facility] [place] [facility] [address] [id number] [address] [place] [address] Mar, [facility] [place] [facility] [address] [id number] [address] [place] [address] Mar, [facility] [place] [facility] [address] [id number] [address] [place] [address] Mar, [facility] [place] [facility] [address] [id number] [address] [place] [address] 26 Mar, 2016 [facility] [place] [facility] [address] [id number] [address] [place] [address] 22 Mar, 2016 [facility] [place] [facility] [address] [id number] [address] [place] [address] 20 Mar, 2016 Reactive lymphadenopathy R59 .9 ; Low back pain M54.5 ; Other chronic pain G89.29 and Memory loss, short term R41.3 [facility] [place] [facility] [address] [facility] [id number] [address] [place] [address] 13 Mar, 2016 [facility] [place] [facility] [address] [facility] [id number] [address] [place] [address] 13 Mar, 2016 Short-term memory loss R41.3 [facility] [place] [facility] [address] [facility] [id number] [address] [place] [address] 09 Mar, 2016 [facility] [place] [facility] [address] [facility] [id number] [address] [place] [address] 08 Mar, 2016 [facility] [address] [id number] [address] [place] [address] 07 Sep, 2016 Axillary abscess L02.419 [facility] [place] [facility] [address] [id number] [address] [place] [address] Mar, [facility] [place] [facility] [address] [id number] [address] [place] [address] Jan, [facility] [place] [facility] [address] [id number] [address] [place] [address] Jan, Encounter for Depo-Provera c ontraception Z30.42 [facility] [place] [facility] [address] [id number] [address] [place] [address] Jan, [facility] [place] [facility] [address] [id number] [address] [place] [address] Jan, [facility] [place] [facility] [address] [id number] [address] [place] [address] Jan, [facility] [place] [facility] [address] [facility] [id number] [address] [place] [address] Jan, Carpal tunnel syndrome, righ t upper limb G56.01 [facility] [address] [id number] [address] [place] [address] Jan, Bilateral otitis media, unsp ecified chronicity, unspecified otitis media type H66.93 [facility] [place] [facility] [address] [facility] [id number] [address] [place] [address] Jan, Lumbago with sciatica, left side M54.42 [facility] [place] [facility] [address] [id number] [address] [place] [address] Jan, [facility] [place] [facility] [address] [facility] [id number] [address] [place] [address] Jan, [facility] [place] [facility] [address] [facility] [id number] [address] [place] [address] Jan, Sore throat J02.9 ; Carpal t unnel syndrome, left upper limb G56.02 and Carpal tunnel syndrome, right upper limb G56.01 [facility] [place] [facility] [address] [id number] [address] [place] [address] Dec, [facility] [place] [facility] [address] [id number] [address] [place] [address] Dec, [facility] [place] [facility] [address] [id number] [address] [place] [address] Dec, [facility] [place] [facility] [address] [id number] [address] [place] [address] Dec, [facility] [place] [facility] [address] [id number] [address] [place] [address] Dec, Lumbago with sciatica, left side M54.42 [facility] [place] [facility] [address] [id number] [address] [place] [address] Dec, Anxiety F41.9 [facility] [place] [facility] [address] [id number] [address] [place] [address] Dec, Tremor R25.1 ; Back pain wit h right-sided radiculopathy M54.10 and Headache R51 [facility] [place] [facility] [address] [id number] [address] [place] [address] Dec, [facility] [place] [facility] [address] [id number] [address] [place] [address] Dec, [facility] [place] [facility] [address] [id number] [address] [place] [address] Dec, Lumbago with sciatica, left side M54.42 [facility] [place] [facility] [address] [id number] [address] [place] [address] Dec, Dizziness R42 [facility] [place] [facility] [address] [id number] [address] [place] [address] Nov, [facility] [place] [facility] [address] [id number] [address] [place] [address] Nov, Lumbago with sciatica, left side M54.42 and Lumbago with sciatica, right side M54.41 [facility] [place] [facility] [address] [id number] [address] [place] [address] Nov, Anxiety F41.9 [facility] [place] [facility] [address] [id number] [address] [place] [address] Nov, [facility] [place] [facility] [address] [id number] [address] [place] [address] Nov, Headache R51 [facility] [place] [facility] [address] [id number] [address] [place] [address] October, Encounter for Depo-Provera c ontraception Z30.42 [facility] [place] [facility] [address] [id number] [address] [place] [address] October, Anxiety F41.9 [facility] [place] [facility] [address] [id number] [address] [place] [address] October, Anxiety F41.9 [facility] [place] [facility] [address] [id number] [address] [place] [address] October, [facility] [place] [facility] [address] [id number] [address] [place] [address] October, Vaginal yeast infection B37. 3 [facility] [address] [id number] [address] [place] [address] October, [facility] [place] [facility] [address] [id number] [address] [place] [address] October, Headache R51 [facility] [place] [facility] [address] [id number] [address] [place] [address] Sep, [facility] [place] [facility] [address] [id number] [address] [place] [address] Sep, [facility] [place] [facility] [address] [id number] [address] [place] [address] Sep, Headache R51 [facility] [place] [facility] [address] [id number] [address] [place] [address] Sep, [facility] [place] [facility] [address] [id number] [address] [place] [address] Sep, Headache R51 [facility] [place] [facility] [address] [place] [id number] [address] [place] [address] Aug, 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 and Headache R51 [facility] [place] [facility] [address] [place] [id number] [address] [place] [address] 24 Aug, 2015 [facility] [place] [facility] [address] [place] [id number] [place] [address] Aug, Headache R51 ; Forgetfulness R68.[address] scan, head R93.0 [facility] [place] [facility] [address] [address] 16 Aug, 2015 [facility] [place] [facility] [address] [place] [id number] [place] [address] 15 Aug, 2015 [facility] [place] [facility] [address] [address] 14 Aug, 2015 [facility] [place] [facility] [address] [address] Aug, Headache R51 [facility] [place] [facility] [address] [address] 08 Aug, 2015 Abnormal computed tomography angiography of head R93.0 [facility] [place] [facility] [address] [address], [address] of the head R93. 0 [facility] [place] [facility] [address] [place] [id number] [place] [address] Aug, Headache R51 ; Nausea R11.0 and Forgetfulness R68.89 [facility] [place] [facility] [address] [place] [id number] [place] [address] Aug, Mental disor NOS oth dis F99 ; Unspecified mood [affective] disorder F39 and Anxiety disorder, unspecified F41.9 [facility] [place] [facility] [address] [place] [id number] [address] [place] [address] Aug, [facility] [place] [facility] [address] [place] [id number] [address] [place] [address] Aug, [facility] [place] [facility] [address] [address] Aug, Encounter for Depo-Provera c ontraception Z30.42 [facility] [place] [facility] [address] [address] Jul, [facility] [place] [facility] [address] [address] Jul, Contusion of unspecified fin laura without damage to nail, subsequent encounter S60.00XD [facility] [place] [facility] [address] [address] May, [facility] [place] [facility] [address] [address] May, [facility] [address] [id number] May, 2015 Dental examination Z01.20 [facility] [place] [facility] [address] [address] May, Hematuria R31.9 [facility] [place] [facility] [address] [address] May, [facility] [place] [facility] [address] [address] May, Generalized anxiety disorder F41.1 [facility] [place] [facility] [address] [address] May, [facility] [place] [facility] [address] [address] May, [facility] [place] [facility] [address] [address] 05 May, 2015 [facility] [place] [facility] [address] [address] Mar, Upper respiratory tract infe ction, unspecified upper respiratory infection J06.9 ; Anaphylaxis, subsequent encounter T78.2XXD ; Encounter for Depo-Provera contraception Z30.42 and Encounter for surveillance of injectable contraceptive Z30.42 [facility] [place] [facility] [address] [id number] [address] [place] [address] Mar, [facility] [place] [facility] [address] [id number] [address] [place] [address] Mar, [facility] [place] [facility] [address] [id number] [address] [place] [address] Mar, [facility] [place] [facility] [address] [id number] [address] [place] [address] Mar, [facility] [place] [facility] [address] [id number] [address] [place] [address] Mar, [facility] [place] [facility] [address] [id number] [address] [place] [address] Jan, [facility] [place] [facility] [address] [id number] [address] [place] [address] Jan, [facility] [place] [facility] [address] [id number] [address] [place] [address] Jan, [facility] [place] [facility] [address] [id number] [address] [place] [address] Dec, [facility] [address] [id number] [address] [place] [id number] Dec, Dental examination V72.2 [facility] [place] [facility] [address] [id number] [address] [place] [address] Dec, [facility] [place] [facility] [address] [id number] [address] [place] [address] Nov, [facility] [place] [facility] [address] [id number] [address] [place] [address] Nov, [facility] [place] [facility] [address] [id number] [address] [place] [address] Nov, Abdominal pain 789.00 and Na usea and vomiting 787.01 [facility] [place] [facility] [address] [id number] [address] [place] [address] Nov, UTI (lower urinary tract inf ection) 599.0 and Abdominal pain 789.00 [facility] [place] [facility] [address] [id number] [address] [place] [address] October, [facility] [place] [facility] [address] [id number] [address] [place] [address] Sep, [facility] [place] [facility] [address] [id number] [address] [place] [address] Sep, [facility] [place] [facility] [address] [id number] [address] [place] [address] Aug, [facility] [place] [facility] [address] [id number] [address] [place] [address] Aug, [facility] [place] [facility] [address] [id number] [address] [place] [address] Aug, [facility] [place] [facility] [address] [id number] [address] [place] [address] Aug, [facility] [place] [facility] [address] [id number] [address] [place] [address] Aug, [facility] [place] [facility] [address] [id number] [address] [place] [address] Aug, [facility] [place] [facility] [address] [id number] [address] [place] [address] Aug, [facility] [place] [facility] [address] [id number] [address] [place] [address] Aug, [facility] [place] [facility] [address] [id number] [address] [place] [address] Jul, [facility] [place] [facility] [address] [id number] [address] [place] [address] Jul, [facility] [address] [id number] [address] [place] [address], [place] [address] Jul, [facility] [address] [id number] [address] [place] [address], [place] [address] Jul, [facility] [address] [id number] [address] [place] [address], [place] [address] Jul, [facility] [address] [id number] [address] [place] [address], [place] [address] Jul, [facility] [address] [id number] [address] [place] [address], [place] [address] Jul, [facility] [address] [id number] [address] [place] [address], [place] [address] Jul, [facility] [address] [id number] [address] [place] [address], [place] [address] Jul, [facility] [address] [id number] [address] [place] [address], [place] [address] Jul, [facility] [address] [id number] [address] [place] [address], [place] [address] Jul, [facility] [address] [id number] [address] [place] [address], [place] [address] Jul, [facility] [address] [id number] [address] [place] [address], [place] [address] May, [facility] [address] [id number] [address] [place] [address], [place] [address] May, [facility] [address] [id number] [address] [place] [address], [place] [address] May, [facility] [address] [id number] [address] [place] [address], [place] [address] May, [facility] [address] [id number] [address] [place] [address], [place] [address] May, [facility] [address] [id number] [address] [place] [address] May, [facility] [address] [id number] [address] [place] [address], [place] [address] May, [facility] [address] [id number] [address] [place] [address], [place] [address] May, [facility] [address] [id number] [address] [place] [address], [place] [address] May, [facility] [address] [id number] [address] [place] [address], [place] [address] 18 May, 2014 [facility] [address] [id number] [address] [place] [address], [place] [address] May, [facility] [address] [id number] [address] [place] [address], [place] [address] May, [facility] [address] [id number] [address] [place] [address], [place] [address] May, [facility] [address] [id number] [address] [place] [address], [place] [address] May, [facility] [address] [id number] [address] [place] [address], [place] [address] May, [facility] [address] [id number] [address] [place] [address], [place] [address] May, [facility] [address] [id number] [address] [place] [address], [place] [address] 08 May, 2014 [facility] [address] [id number] [address] [place] [address], [place] [address] 08 May, 2014 [facility] [address] [id number] [address] [place] [address], [place] [address] May, [facility] [address] [id number] [address] [place] [address], [place] [address] May, [facility] [address] [id number] [address] [place] [address], [place] [address] 24 May, 2014 [facility] [address] [id number] [address] [place] [address], [place] [address] May, [facility] [address] [id number] [address] [place] [address], [place] [address] May, [facility] [address] [id number] [address] [place] [address], [place] [address] May, [facility] [address] [id number] [address] [place] [address], [place] [address] May, [facility] [address] [id number] [address] [place] [address], [place] [address] May, [facility] [address] [id number] [address] [place] [address], [place] [address] May, [facility] [address] [id number] [address] [place] [address], [place] [address] May, [facility] [address] [id number] [address] [place] [address], [place] [address] May, [facility] [address] [id number] [address] [place] [address], [place] [address] May, [facility] [address] [id number] [address] [place] [address], [place] [address] May, [facility] [address] [id number] [address] [place] [address], [place] [address] May, [facility] [address] [id number] [address] [place] [address], [place] [address] May, [facility] [address] [id number] [address] [place] [address], [place] [address] May, [facility] [address] [id number] [address] [place] [address], [place] [address] May, [facility] [address] [id number] [address] [place] [address], [place] [address] Mar, [facility] [address] [id number] [address] [place] [address], [place] [address] Mar, [facility] [address] [id number] [address] [place] [address], [place] [address] Mar, [facility] [address] [id number] [address] [place] [address], [place] [address] Mar, [facility] [address] [id number] [address] [place] [address], [place] [address] Mar, [facility] [address] [id number] [address] [place] [address], [place] [address] Mar, [facility] [address] [id number] [address] [place] [address], [place] [address] Mar, [facility] [address] [id number] [address] [place] [address], [place] [address] Mar, [facility] [address] [id number] [address] [place] [address], [place] [address] Mar, [facility] [address] [id number] [address] [place] [address], [place] [address] 24 Mar, 2014 [facility] [address] [id number] [address] [place] [address], [place] [address] 08 Mar, 2014 [facility] [address] [id number] [address] [place] [address], [place] [address] 08 Mar, 2014 [facility] [address] [id number] [address] [place] [address], [place] [address] Mar, [facility] [address] [id number] [address] [place] [address], [place] [address] Mar, [facility] [address] [id number] [address] [place] [address], [place] [address] Jan, [facility] [address] [id number] [address] [place] [address], [place] [address] Jan, [facility] [address] [id number] [address] [place] [address], [place] [address] Jan, [facility] [address] [id number] [facility] [place] [address] Jan, [facility] [address] [id number] [address] [place] [address], [place] [address] Jan, [facility] [address] [id number] [address] [place] [address], [place] [address] Jan, [facility] [address] [id number] [address] [place] [address], [place] [address] Jan, [facility] [address] [id number] [address] [place] [address], [place] [address] Jan, [facility] [address] [id number] [address] [place] [address], [place] [address] Jan, [facility] [address] [id number] [address] [place] [address], [place] [address] Dec, [facility] [address] [id number] [address] [place] [address], [place] [address] Dec, [facility] [address] [id number] [address] [place] [address], [place] [address] Dec, [facility] [address] [id number] [address] [place] [address], [place] [address] Dec, [facility] [address] [id number] [address] [place] [address], [place] [address] Dec, [facility] [address] [id number] [address] [place] [address], [place] [address] Dec, [facility] [address] [id number] [address] [place] [address], [place] [address] Dec, [facility] [address] [id number] [address] [place] [address], [place] [address] Dec, [facility] [address] [id number] [address] [place] [address], [place] [address] Dec, [facility] [address] [id number] [address] [place] [address], [place] [address] October, [facility] [address] [id number] [address] [place] [address], [place] [address] October, [facility] [address] [id number] [address] [place] [address], [place] [address] Sep, [facility] [address] [id number] [address] [place] [address], [place] [address] Sep, [facility] [address] [id number] [address] [place] [address], [place] [address] Aug, [facility] [address] [id number] [address] [place] [address], [place] [address] Aug, [facility] [address] [id number] [address] [place] [address], [place] [address] Aug, [facility] [address] [id number] [address] [place] [address], [place] [address] Aug, [facility] [address] [id number] [address] [place] [address], [place] [address] Aug, [facility] [address] [id number] [address] [place] [address], [place] [address] Aug, [facility] [address] [id number] [address] [place] [address], [place] [address] Aug, [facility] [address] [id number] [address] [place] [address], [place] [address] Aug, [facility] [address] [id number] [address] [place] [address], [place] [address] Aug, [facility] [address] [id number] [address] [place] [address], [place] [address] Aug, [facility] [address] [id number] [address] [place] [address], [place] [address] Aug, [facility] [address] [id number] [address] [place] [address], [place] [address] Jul, [facility] [address] [id number] [address] [place] [address], [place] [address] Jul, [facility] [address] [id number] [address] [place] [address], [place] [address] May, [facility] [address] [id number] [address] [place] [address], [place] [address] May, [facility] [address] [id number] [address] [place] [address], [place] [address] May, [facility] [address] [id number] [address] [place] [address], [place] [address] May, [facility] [address] [id number] [address] [place] [address], [place] [address] May, [facility] [address] [id number] [address] [place] [address], [place] [address] May, [facility] [address] [id number] [address] [place] [address], [place] [address] May, [facility] [address] [id number] [address] [place] [address], [place] [address] May, [facility] [address] [id number] [address] [place] [address], [place] [address] May, [facility] [address] [id number] [address] [place] [address], [place] [address] May, [facility] [address] [id number] [address] [place] [address], [place] [address] May, [facility] [address] [id number] [address] [place] [address], [place] [address] May, [facility] [address] [id number] [address] [place] [address], [place] [address] May, [facility] [address] [id number] [address] [place] [address], [place] [address] May, [facility] [address] [id number] [address] [place] [address], [place] [address] May, [facility] [address] [id number] [address] [place] [address], [place] [address] 19 May, 2013 [facility] [address] [id number] [address] [place] [address], [place] [address] May, [facility] [address] [id number] [address] [place] [address], [place] [address] May, [facility] [address] [id number] [address] [place] [address], [place] [address] May, [facility] [address] [id number] [address] [place] [address], [place] [address] 16 May, 2013 [facility] [address] [id number] [address] [place] [address], [place] [address] May, [facility] [address] [id number] [address] [place] [address], [place] [address] May, [facility] [address] [id number] [address] [place] [address], [place] [address] May, [facility] [address] [id number] [address] [place] [address], [place] [address] May, [facility] [address] [id number] [address] [place] [address], [place] [address] May, [facility] [address] [id number] [address] [place] [address], [place] [address] May, [facility] [address] [id number] [address] [place] [address], [place] [address] May, [facility] [address] [id number] [address] [place] [address], [place] [address] May, [facility] [address] [id number] [address] [place] [address], [place] [address] May, [facility] [address] [id number] [address] [place] [address], [place] [address] May, [facility] [address] [id number] [address] [address] 31 Mar, 2013 [facility] [address] [id number] [address] [place] [address], [place] [address] 31 Mar, 2013 [facility] [address] [id number] [address] [place] [address] 31 Mar, 2013 [facility] [address] [id number] [address] [place] [address] Mar, 2012 [facility] [address] [id number] [address] [place] [address] 30 Mar, 2012 [facility] [address] [id number] [address] [place] [address], [place] [address] 29 Mar, 2013 [facility] [address] [id number] [address] [place] [address] Mar, [facility] [address] [id number] [address] [place] [address] Mar, [facility] [address] [id number] [address] [place] [address] 29 Mar, 2013 [facility] [address] [id number] [address] [place] [address] Mar, [facility] [address] [id number] [address] [place] [address] Mar, [facility] [address] [id number] [address] [place] [address] 24 Mar, 2013 [facility] [address] [id number] [address] [place] [address] 24 Mar, 2013 [facility] [address] [id number] [address] [place] [address], [place] [address] 23 Mar, 2013 [facility] [address] [id number] [address] [place] [address] 22 Mar, 2013 [facility] [address] [id number] [address] [place] [address] Mar, [facility] [address] [id number] [address] [place] [address], [place] [address] 21 Mar, 2013 [facility] [address] [id number] [address] [place] [address], [place] [address] 18 Mar, 2013 [facility] [address] [id number] [address] [place] [address], [place] [address] 18 Mar, 2013 [facility] [address] [id number] [address] [place] [address], [place] [address] 18 Mar, 2013 [facility] [address] [id number] [address] [place] [address], [place] [address] 18 Mar, 2013 [facility] [address] [id number] [address] [place] [address], [place] [address] 14 Mar, 2013 [facility] [address] [id number] [address] [place] [address], [place] [address] 14 Mar, 2013 [facility] [address] [id number] [address] [place] [address], [place] [address] 10 Mar, 2013 [facility] [address] [id number] [address] [place] [address], [place] [address] 18 Mar, 2013 [facility] [address] [id number] [address] [place] [address], [place] [address] 12 Mar, 2013 [facility] [address] [id number] [address] [place] [address], [place] [address] 11 Mar, 2013 [facility] [address] [id number] [address] [place] [address], [place] [address] Jan, [facility] [address] [id number] [address] [place] [address], [place] [address] October, [facility] [address] [id number] [address] [place] [address], [place] [address] Sep, [facility] [address] [id number] [address] [place] [address], [place] [address] 15 Sep, 2012 [facility] [address] [id number] [address] [place] [address], [place] [address] 07 Aug, 2012 [facility] [address] [id number] [address] [place] [address], [place] [address] 06 Aug, 2012 [facility] [address] [id number] [address] [place] [address], [place] [address] 04 Aug, 2012 [facility] [address] [id number] [address] [place] [address], [place] [address] 17 Jul, 2012 [facility] [address] [id number] [address] [place] [address], [place] [address] 19 May, 2012 [facility] [address] [id number] [address] [place] [address], [place] [address] 19 May, 2012 [facility] [address] [id number] [address] [place] [address], [place] [address] 18 May, 2012 [facility] [address] [id number] [address] [place] [address], [place] [address] 18 May, 2012 [facility] [address] [id number] [address] [place] [address], [place] [address] 19 Mar, 2012 [facility] [address] [id number] [address] [place] [address], [place] [address] 19 Mar, 2012 [facility] [address] [id number] [address] [place] [address] 16 Mar, 2012 [facility] [address] [id number] [address] [place] [address], [place] [address] 25 Mar, 2012 [facility] [address] [id number] [address] [place] [address] 19 Mar, 2012 [facility] [address] [id number] [address] [place] [address], [place] [address] 13 Mar, 2012 [facility] [address] [id number] [address] [place] [address] 07 Mar, 2012 [facility] [address] [id number] [address] [place] [address], [place] [address] 30 Jan, 2012 [facility] [address] [id number] [address] [place] [address], [place] [address] Jan, [facility] [address] [id number] [address] [place] [address], [place] [address] Jan, 2011 [facility] [address] [id number] [address] [place] [address], [place] [address] Jan, [facility] [address] [id number] [address] [place] [address], [place] [address] Jan, 2011 [facility] [address] [id number] [address] [place] [address], [place] [address] Jan, [facility] [address] [id number] [address] [place] [address], [place] [address] Jan, [facility] [address] [id number] [address] [place] [address], [place] [address] Jan, [facility] [address] [id number] [address] [place] [address], [place] [address] Jan, [facility] [address] [id number] [address] [place] [address], [place] [address] Jan, [facility] [address] [id number] [address] [place] [address], [place] [address] Jan, [facility] [address] [id number] [address] [place] [address], [place] [address] Jan, [facility] [address] [id number] [address] [place] [address], [place] [address] Jan, [facility] [address] [id number] [address] [place] [address], [place] [address] Jan, [facility] [address] [id number] [address] [place] [address], [place] [address] Jan, [facility] [address] [id number] [address] [place] [address], [place] [address] Jan, [facility] [address] [id number] [address] [place] [address], [place] [address] Dec, [facility] [address] [id number] [address] [place] [address], [place] [address] Dec, [facility] [address] [id number] [address] [place] [address], [place] [address] Nov, [facility] [address] [id number] [address] [place] [address], [place] [address] Nov, [facility] [address] [id number] [address] [place] [address], [place] [address] October, [facility] [address] [id number] [address] [place] [address], [place] [address] October, [facility] [address] [id number] [address] [place] [address], [place] [address] October, [facility] [address] [id number] [address] [place] [address], [place] [address] Sep, [facility] [address] [id number] [address] [place] [address], [place] [address] Sep, [facility] [address] [id number] [address] [place] [address], [place] [address] 30 Aug, 2011 [facility] [address] [id number] [address] [place] [address], [place] [address] Aug, [facility] [address] [id number] [address] [place] [address], [place] [address] Aug, [facility] [address] [id number] [address] [place] [address], [place] [address] Aug, [facility] [address] [id number] [address] [place] [address], [place] [address] Aug, [facility] [address] [id number] [address] [place] [address], [place] [address] 14 Aug, 2011 [facility] [address] [id number] [address] [place] [address], [place] [address] 07 Aug, 2011 [facility] [address] [id number] [address] [place] [address], [place] [address] Jul, [facility] [address] [id number] [address] [place] [address], [place] [address] Jul, [facility] [address] [id number] [address] [place] [address], [place] [address] Jul, [facility] [address] [id number] [address] [place] [address], [place] [address] May, [facility] [address] [id number] [address] [place] [address], [place] [address] May, [facility] [address] [id number] [address] [place] [address], [place] [address] May, [facility] [address] [id number] [address] [place] [address], [place] [address] May, [facility] [address] [id number] [address] [place] [address], [place] [address] May, [facility] [address] [id number] [address] [place] [address], [place] [address] May, [facility] [address] [id number] [address] [place] [address], [place] [address] May, [facility] [address] [id number] [address] [place] [address], [place] [address] Mar, [facility] [address] [id number] [address] [place] [id number] Mar, [facility] [address] [id number] [address] [place] [id number] 19 Mar, 2011 [facility] [address] [id number] [address] [place] [address], [place] [address] 15 Mar, 2011 [facility] [address] [id number] [address] [place] [address], [place] [address] 27 Mar, 2010 [facility] [address] [id number] [address] [place] [address], [place] [address] 13 Mar, 2010 [facility] [address] [id number] [address] [place] [id number] Jan, [facility] [address] [id number] [address] [place] [phone] May, [facility] [address] [id number] [address] [place] [id number] May, [facility] [address] [id number] [address] [place] [phone] May, [facility] [address] [id number] [address] [place] [id number] May, [facility] [address] [id number] [address] [place] [id number] May, [facility] [address] [id number] [address] [place] [phone] May, [facility] [address] [id number] [address] [place] [phone] Mar, [facility] [address] [id number] [address] [place] [id number] Sep, IMMUNIZATIONS No Known Immunizations SOCIAL HISTORY Never Assessed REASON FOR VISIT Right sided tooth pain X10 days and right ear pain X3 days,recently finished Zpa ck and now is taking keflex for infection in tooth---warren claire PLAN OF CARE Activity Details Follow Up prn Reason: VITAL SIGNS Height 64 in 2018-09-26 Weight 135.6 lbs 2018-09-26 Temperature 98.0 degrees Fahrenheit 2018-09-26 Heart Rate 78 bpm 2018-09-26 Respiratory Rate 16 2018-09-26 BMI 23.27 kg/m2 2018-09-26 Blood pressure systolic 118 mmHg 2018-09-26 Blood pressure diastolic 68 mmHg 2018-09-26 MEDICATIONS Medication Instructions Dosage Frequency Start Date End Date Duration S tatus Cephalexin Active Singulair 10 mg Orally Once a day 1 tablet in the evening 24h 90 days Active Omeprazole 40 MG Orally Once a day 1 capsule 24h 90 days Active EpiPen 2-David 0.3 MG/0.3ML Injection repeat in 20 minutes Inj ect into thigh at first signs of anaphylaxis October, 30 days A ctive Depo-Provera 150 MG/ML 1 ml 30 day(s) Active Ibuprofen 800 MG Orally Three times a day 1 tablet with food or milk as needed 8h Active Glucocard Expression Monitor w/Device as directed Aug Active Albuterol Sulfate (2.5 MG/3ML) 0.083% Inhalation Three times a day 3 ml 8h Aug, Active Vraylar 1.5 MG Orally Once a day X 2 weeks then 3mg daily X 2 weeks 1 capsule Aug, 28 days Active Benztropine Mesylate 1 MG Orally 3 times a day 1 tablet 8h 90 days Active Ventolin HFA 108 (90 Base) MCG/ACT Inhalation every 4 hrs 2 puffs a s needed 4h Aug, Active Tylenol 325 MG Orally every 4 hrs 1 tablet as needed 4h Active Toviaz 4 MG Orally Once a day 1 tablet 24h October, 90 d ays Active Clindamycin HCl 300 MG Orally every 8 hrs 2 capsules 8h Aug, 10 day(s) Active Topamax 25 MG Orally Twice a day 3 tablet 12h Nov, 3 0 days Active Lexapro 20 mg Orally Once a day 2 tablets 24h 90 day s Active Naproxen 500 MG Orally every 12 hrs 1 tablet with food or milk as n eeded 12h Aug, 15 days Active Claritin 10 mg Orally Once a day 1 tablet 24h Nov, 9 0 days Active Glucocard Expression Test - subcutaneously as needed 1 X a day Aug, Active RESULTS No Results PROCEDURES No [...]
--- OUTSIDE RECORDS SUMMARY | 2019-12-30 23:36 | XMS REPORT ---
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 Dec, [facility] [address] [facility] [id number] [address] [place] [id number] Dec, Lumbago with sciatica, left side M54.42 [facility] [address] [facility] [id number] [address] [place] [address] Dec, Anxiety F41.9 [facility] [address] [id number] [address] [place] [id number] Dec, Tremor R25.1 ; Back pain wit h right-sided radiculopathy M54.10 and Headache R51 [facility] [address] [id number] [address] [place] [id number] Dec, [facility] [address] [id number] [address] [place] [id number] Dec, [facility] [address] [facility] [id number] [address] [place] [phone] Dec, Lumbago with sciatica, left side M54.42 [facility] [address] [facility] [id number] [address] [place] [phone] Dec, Dizziness R42 [facility] [address] [facility] [id number] [address] [place] [id number] Nov, [facility] [address] [id number] [address] [place] [phone] Nov, Lumbago with sciatica, left side M54.42 and Lumbago with sciatica, right side M54.41 [facility] [address] [id number] [address] [place] [id number] Nov, Anxiety F41.9 [facility] [address] [facility] [id number] [address] [place] [phone] Nov, [facility] [address] [id number] [address] [place] [phone] Nov, Headache R51 [facility] [address] [facility] [id number] [address] [place] [id number] October, Encounter for Depo-Provera c ontraception Z30.42 [facility] [address] [facility] [id number] [address] [place] [id number] October, Anxiety F41.9 [place] [address] [facility] [id number] [address] [place] [phone] October, Anxiety F41.9 [facility] [address] [facility] [id number] [address] [place] [phone] October, [facility] [address] [facility] [id number] [address] [place] [id number] October, Vaginal yeast infection B37. 3 [facility] [address] [facility] [id number] [address] [place] [id number] October, [facility] [address] [facility] [id number] [address] [place] [phone] October, Headache R51 [facility] [address] [facility] [id number] [address] [place] [phone] Sep, [facility] [address] [facility] [id number] [address] [place] [phone] Sep, [facility] [address] [facility] [id number] [address] [place] [phone] Sep, Headache R51 [facility] [address] [facility] [id number] [address] [place] [phone] Sep, [facility] [address] [facility] [id number] [address] [place] [phone] Sep, Headache R51 [facility] [address] [place] [id number] [address] [place] [phone] Aug, 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 and Headache R51 [facility] [address] [facility] [id number] [address] [place] [phone] Aug, [facility] [address] [facility] [id number] [address] [place] [phone] Aug, Headache R51 ; Forgetfulness R68.[address] scan, head R93.0 [facility] [address] [facility] [id number] [address] [place] [phone] Aug, [place] [address] [id number] 15 Aug, 2015 [place] [address] [phone] 14 Aug, 2015 [place] [address] [address] Aug, Headache R51 [place] [address] [phone] 08 Aug, 2015 Abnormal computed tomography angiography of head R93.0 [place] [address] [address] 07 Aug, [address] of the head R93. 0 [place] [address] [address] Aug, Headache R51 ; Nausea R11.0 and Forgetfulness R68.89 [place] [address] [id number] Aug, Mental disor NOS oth dis F99 ; Unspecified mood [affective] disorder F39 and Anxiety disorder, unspecified F41.9 [place] [address] [place] [id number] [address] [place] [phone] Aug, [place] [address] [address] Aug, [place] [address] [address] Aug, Encounter for Depo-Provera c ontraception Z30.42 [place] [address] [address] Jul, [place] [address] [address] Jul, Contusion of unspecified fin laura without damage to nail, subsequent encounter S60.00XD [place] [id number] [place] [address] May, [facility] [address] [id number] [address] [place] [phone] May, [facility] [address] [id number] [address] [place] [id number] 16 May, 2015 Dental examination Z01.20 [facility] [address] [id number] [address] [place] [id number] 15 May, 2015 Hematuria R31.9 [facility] [address] [id number] [address] [place] [phone] May, [facility] [address] [facility] [id number] [address] [place] [id number] May, Generalized anxiety disorder F41.1 [facility] [address] [facility] [id number] [address] [place] [phone] May, [facility] [address] [facility] [id number] [address] [place] [id number] May, [facility] [address] [facility] [id number] [address] [place] [id number] May, [facility] [address] [facility] [id number] [address] [place] [address] Mar, Upper respiratory tract infe ction, unspecified upper respiratory infection J06.9 ; Anaphylaxis, subsequent encounter T78.2XXD ; Encounter for Depo-Provera contraception Z30.42 and Encounter for surveillance of injectable contraceptive Z30.42 [facility] [address] [id number] [address] [place] [id number] Mar, [facility] [address] [facility] [id number] [address] [place] [phone] Mar, [facility] [address] [facility] [id number] [address] [place] [phone] Mar, [facility] [address] [facility] [id number] [address] [place] [phone] Mar, [facility] [address] [id number] [address] [place] [phone] Mar, [facility] [address] [id number] [address] [place] [phone] Jan, [facility] [address] [id number] [address] [place] [phone] Jan, [facility] [address] [id number] [address] [place] [phone] Jan, [facility] [address] [id number] [address] [place] [phone] Dec, [facility] [address] [id number] [address] [place] [id number] Dec, Dental examination V72.2 [facility] [address] [id number] [address] [place] [id number] Dec, [facility] [address] [id number] [address] [place] [id number] Nov, [facility] [address] [id number] [address] [place] [id number] Nov, [facility] [address] [id number] [address] [place] [address] Nov, Abdominal pain 789.00 and Na usea and vomiting 787.01 [facility] [address] [id number] [address] [place] [id number] Nov, UTI (lower urinary tract inf ection) 599.0 and Abdominal pain 789.00 [facility] [address] [id number] [address] [place] [phone] October, [facility] [address] [id number] [address] [place] [phone] Sep, [facility] [address] [id number] [address] [place] [phone] Sep, [facility] [address] [id number] [address] [place] [address], [place] [address] Aug, [facility] [address] [id number] [address] [place] [address], [place] [address] Aug, [facility] [address] [id number] [address] [place] [address], [place] [address] Aug, [facility] [address] [id number] [address] [place] [address], [place] [address] Aug, [facility] [address] [id number] [address] [place] [address], [place] [address] Aug, [facility] [address] [id number] [address] [place] [address], [place] [address] Aug, [facility] [address] [id number] [address] [place] [address], [place] [address] Aug, [facility] [address] [id number] [address] [place] [address], [place] [address] Aug, [facility] [address] [id number] [address] [place] [address], [place] [address] Jul, [facility] [address] [id number] [address] [place] [address], [place] [address] Jul, [facility] [address] [id number] [address] [place] [address], [place] [address] Jul, [facility] [address] [id number] [address] [place] [address], [place] [address] Jul, [facility] [address] [id number] [address] [place] [address], [place] [address] Jul, [facility] [address] [id number] [address] [place] [address], [place] [address] Jul, [facility] [address] [id number] [address] [place] [address], [place] [address] Jul, [facility] [address] [id number] [address] [place] [address], [place] [address] Jul, [facility] [address] [id number] [address] [place] [address], [place] [address] Jul, [facility] [address] [id number] [address] [place] [address], [place] [address] Jul, [facility] [address] [id number] [address] [place] [address], [place] [address] Jul, [facility] [address] [id number] [address] [place] [address], [place] [address] Jul, [facility] [address] [id number] [address] [place] [address], [place] [address] May, [facility] [address] [id number] [address] [place] [address], [place] [address] May, [facility] [address] [id number] [address] [place] [address], [place] [address] May, [facility] [address] [id number] [address] [place] [address], [place] [address] May, [facility] [address] [id number] [address] [place] [address], [place] [address] May, [facility] [address] [id number] [address] [place] [address], [place] [address] May, [facility] [address] [id number] [address] [place] [address], [place] [address] May, [facility] [address] [id number] [address] [place] [address], [place] [address] May, [facility] [address] [id number] [address] [place] [address], [place] [address] May, [facility] [address] [id number] [address] [place] [address], [place] [address] May, [facility] [address] [id number] [address] [place] [address], [place] [id number] 17 May, 2014 [facility] [address] [id number] [address] [place] [address], [place] [address] 17 May, 2014 [facility] [address] [id number] [address] [place] [address], [place] [address] May, [facility] [address] [id number] [address] [place] [address], [place] [address] May, [facility] [address] [id number] [address] [place] [address], [place] [address] May, [facility] [address] [id number] [address] [place] [address], [place] [address] May, [facility] [address] [id number] [address] [place] [address], [place] [address] May, [facility] [address] [id number] [address] [place] [address], [place] [address] May, [facility] [address] [id number] [address] [place] [address], [place] [address] May, [facility] [address] [id number] [address] [place] [address], [place] [address] May, [facility] [address] [id number] [address] [place] [address], [place] [address] May, [facility] [address] [id number] [address] [place] [address], [place] [address] May, [facility] [address] [id number] [address] [place] [address], [place] [address] May, [facility] [address] [id number] [address] [place] [address], [place] [address] 15 May, 2014 [facility] [address] [id number] [address] [place] [address], [place] [address] May, [facility] [address] [id number] [address] [place] [address], [place] [address] May, [facility] [address] [id number] [address] [place] [address], [place] [address] May, [facility] [address] [id number] [address] [place] [address], [place] [address] May, [facility] [address] [id number] [address] [place] [address], [place] [address] May, [facility] [address] [id number] [address] [place] [address], [place] [address] May, [facility] [address] [id number] [address] [place] [address], [place] [address] May, [facility] [address] [id number] [address] [place] [address], [place] [address] May, [facility] [address] [id number] [address] [place] [address], [place] [address] May, [facility] [address] [id number] [address] [place] [address], [place] [address] May, [facility] [address] [id number] [address] [place] [address], [place] [address] May, [facility] [address] [id number] [address] [place] [address], [place] [address] Mar, [facility] [address] [id number] [address] [place] [address], [place] [address] Mar, [facility] [address] [id number] [address] [place] [address], [place] [address] Mar, [facility] [address] [id number] [address] [place] [id number] Mar, [facility] [address] [id number] [address] [place] [address], [place] [address] Mar, [facility] [address] [id number] [address] [place] [address], [place] [address] Mar, [facility] [address] [id number] [address] [place] [address], [place] [address] Mar, [facility] [address] [id number] [address] [place] [address], [place] [address] Mar, [facility] [address] [id number] [facility] [place] [address] Mar, 2013 [facility] [address] [id number] [address] [place] [address], [place] [address] Mar, 2013 [facility] [address] [id number] [address] [place] [address], [place] [address] Mar, 2013 [facility] [address] [id number] [address] [place] [address], [place] [address] Mar, 2013 [facility] [address] [id number] [address] [place] [address], [place] [address] Mar, [facility] [address] [id number] [address] [place] [address], [place] [address] Mar, [facility] [address] [id number] [address] [place] [address], [place] [address] Jan, [facility] [address] [id number] [address] [place] [address], [place] [address] Jan, [facility] [address] [id number] [address] [place] [address], [place] [address] Jan, [facility] [address] [id number] [address] [place] [address], [place] [address] Jan, [facility] [address] [id number] [address] [place] [address], [place] [address] Jan, [facility] [address] [id number] [address] [place] [address], [place] [address] Jan, [facility] [address] [id number] [address] [place] [address], [place] [address] Jan, [facility] [address] [id number] [address] [place] [address], [place] [address] Jan, [facility] [address] [id number] [address] [place] [address], [place] [address] Jan, [facility] [address] [id number] [facility] [place] [address] Dec, [facility] [address] [id number] [facility] [place] [address] Dec, [facility] [address] [id number] [facility] [place] [address] Dec, [facility] [address] [id number] [address] [place] [address], [place] [address] Dec, [facility] [address] [id number] [address] [place] [address], [place] [address] Dec, [facility] [address] [id number] [address] [place] [address], [place] [address] Dec, [facility] [address] [id number] [address] [place] [address], [place] [address] Dec, [facility] [address] [id number] [address] [place] [address], [place] [address] Dec, [facility] [address] [id number] [address] [place] [address], [place] [address] Dec, [facility] [address] [id number] [address] [place] [address], [place] [address] October, [facility] [address] [id number] [address] [place] [address], [place] [address] October, [facility] [address] [id number] [address] [place] [address], [place] [address] Sep, [facility] [address] [id number] [address] [place] [address], [place] [address] Sep, [facility] [address] [id number] [address] [place] [address], [place] [address] Aug, [facility] [address] [id number] [address] [place] [address], [place] [address] Aug, [facility] [address] [id number] [address] [place] [address], [place] [address] 07 Aug, 2013 [facility] [address] [id number] [address] [place] [address], [place] [address] Aug, [facility] [address] [id number] [address] [place] [address], [place] [address] Aug, [facility] [address] [id number] [address] [place] [address], [place] [address] Aug, [facility] [address] [id number] [address] [place] [address], [place] [address] 14 Aug, 2013 [facility] [address] [id number] [address] [place] [address], [place] [address] Aug, [facility] [address] [id number] [address] [place] [address], [place] [address] Aug, [facility] [address] [id number] [address] [place] [address], [place] [address] Aug, [facility] [address] [id number] [address] [place] [address], [place] [address] Aug, [facility] [address] [id number] [address] [place] [address], [place] [address] Jul, [facility] [address] [id number] [address] [place] [address], [place] [address] Jul, [facility] [address] [id number] [address] [place] [address], [place] [address] May, [facility] [address] [id number] [address] [place] [address], [place] [address] May, [facility] [address] [id number] [address] [place] [address], [place] [address] May, [facility] [address] [id number] [address] [place] [address], [place] [address] May, [facility] [address] [id number] [address] [place] [address], [place] [address] May, [facility] [address] [id number] [address] [place] [address], [place] [address] May, [facility] [address] [id number] [address] [place] [address], [place] [address] May, [facility] [address] [id number] [address] [place] [address], [place] [address] May, [facility] [address] [id number] [address] [place] [address], [place] [address] May, [facility] [address] [id number] [address] [place] [address], [place] [address] May, [facility] [address] [id number] [address] [place] [address], [place] [address] May, [facility] [address] [id number] [address] [place] [address], [place] [address] May, [facility] [address] [id number] [address] [place] [address], [place] [address] May, [facility] [address] [id number] [address] [place] [address], [place] [address] May, [facility] [address] [id number] [address] [place] [address], [place] [address] May, [facility] [address] [id number] [address] [place] [address], [place] [address] May, [facility] [address] [id number] [address] [place] [address], [place] [address] May, [facility] [address] [id number] [address] [place] [address], [place] [address] 18 May, 2013 [facility] [address] [id number] [address] [place] [address], [place] [address] 16 May, 2013 [facility] [address] [id number] [address] [place] [address], [place] [address] 16 May, 2013 [facility] [address] [id number] [address] [place] [address], [place] [address] May, [facility] [address] [id number] [address] [place] [address], [place] [address] May, [facility] [address] [id number] [address] [place] [id number] May, [facility] [address] [id number] [address] [place] [address] May, [facility] [address] [id number] [address] [place] [address] May, [facility] [address] [id number] [address] [place] [address], [place] [address] May, [facility] [address] [id number] [address] [place] [address] May, [facility] [address] [id number] [address] [place] [id number] May, [facility] [address] [id number] [address] [place] [address] May, [facility] [address] [id number] [address] [place] [id number] May, [facility] [address] [id number] [address] [place] [address] Mar, [facility] [address] [id number] [address] [place] [id number] Mar, [facility] [address] [id number] [address] [place] [address] Mar, [facility] [address] [id number] [address] [place] [id number] Mar, [facility] [address] [id number] [address] [place] [id number] 30 Mar, 2013 [facility] [address] [id number] [address] [place] [address] 29 Mar, 2013 [facility] [address] [id number] [address] [place] [address], [place] [address] 29 Mar, 2012 [facility] [address] [id number] [address] [place] [address], [place] [address] 29 Mar, 2012 [facility] [address] [id number] [address] [place] [address], [place] [address] 29 Mar, 2013 [facility] [address] [id number] [address] [place] [address], [place] [address] 28 Mar, 2013 [facility] [address] [id number] [address] [place] [address], [place] [address] 28 Mar, 2013 [facility] [address] [id number] [address] [place] [address], [place] [address] 24 Mar, 2013 [facility] [address] [id number] [address] [place] [address], [place] [address] 24 Mar, 2013 [facility] [address] [id number] [address] [place] [address], [place] [address] Mar, [facility] [address] [id number] [address] [place] [address], [place] [address] 22 Mar, 2013 [facility] [address] [id number] [address] [place] [address], [place] [address] Mar, [facility] [address] [id number] [address] [place] [address], [place] [address] Mar, [facility] [address] [id number] [address] [place] [address], [place] [address] 18 Mar, 2013 [facility] [address] [id number] [address] [place] [id number] 18 Mar, 2013 [facility] [address] [id number] [address] [place] [address], [place] [address] 18 Mar, 2013 [facility] [address] [id number] [address] [place] [address], [place] [address] 18 Mar, 2012 [facility] [address] [id number] [address] [place] [address], [place] [address] 14 Mar, 2013 [facility] [address] [id number] [address] [place] [address], [place] [address] 14 Mar, 2013 [facility] [address] [id number] [address] [place] [address], [place] [address] 10 Mar, 2013 [facility] [address] [id number] [address] [place] [address], [place] [address] 18 Mar, 2013 [facility] [address] [id number] [address] [place] [address], [place] [address] 12 Mar, 2013 [facility] [address] [id number] [address] [place] [address], [place] [address] 11 Mar, 2013 [facility] [address] [id number] [address] [place] [address], [place] [address] Jan, [facility] [address] [id number] [address] [place] [address], [place] [address] October, [facility] [address] [id number] [address] [place] [address], [place] [address] Sep, [facility] [address] [id number] [address] [place] [address], [place] [address] Sep, [facility] [address] [id number] [address] [place] [address], [place] [address] Aug, [facility] [address] [id number] [address] [place] [address], [place] [address] Aug, [facility] [address] [id number] [address] [place] [id number] Aug, [facility] [address] [id number] [address] [place] [address], [place] [address] Jul, [facility] [address] [id number] [address] [place] [address], [place] [address] May, [facility] [address] [id number] [address] [place] [address], [place] [address] May, [facility] [address] [id number] [address] [place] [id number] 18 May, 2012 [facility] [address] [id number] [address] [place] [address], [place] [address] 18 May, 2012 [facility] [address] [id number] [address] [place] [address], [place] [address] 19 Mar, 2012 [facility] [address] [id number] [address] [place] [address], [place] [address] 19 Mar, 2012 [facility] [address] [id number] [address] [place] [address], [place] [address] 16 Mar, 2012 [facility] [address] [id number] [address] [place] [address], [place] [address] 25 Mar, 2012 [facility] [address] [id number] [address] [place] [address], [place] [address] 19 Mar, 2012 [facility] [address] [id number] [address] [place] [address], [place] [address] 13 Mar, 2012 [facility] [address] [id number] [address] [place] [address], [place] [address] 07 Mar, 2012 [facility] [address] [id number] [address] [place] [address], [place] [address] 30 Jan, 2012 [facility] [address] [id number] [address] [place] [address], [place] [address] Jan, [facility] [address] [id number] [address] [place] [address], [place] [address] Jan, [facility] [address] [id number] [address] [place] [address], [place] [address] 14 Jan, 2012 [facility] [address] [id number] [address] [place] [address], [place] [address] Jan, [facility] [address] [id number] [address] [place] [address], [place] [address] Jan, [facility] [address] [id number] [address] [place] [address], [place] [address] Jan, [facility] [address] [id number] [facility] [place] [address] Jan, [facility] [address] [id number] [facility] [place] [address] Jan, [facility] [address] [id number] [facility] [place] [address] Jan, [facility] [address] [id number] [address] [place] [address], [place] [address] Jan, [facility] [address] [id number] [address] [place] [address], [place] [address] Jan, [facility] [address] [id number] [address] [place] [address], [place] [address] Jan, [facility] [address] [id number] [address] [place] [address], [place] [address] Jan, [facility] [address] [id number] [address] [place] [address], [place] [address] Jan, [facility] [address] [id number] [address] [place] [address], [place] [address] Jan, [facility] [address] [id number] [address] [place] [address], [place] [address] Dec, [facility] [address] [id number] [address] [place] [address], [place] [address] Dec, [facility] [address] [id number] [address] [place] [address], [place] [address] Nov, [facility] [address] [id number] [address] [place] [address], [place] [address] Nov, [facility] [address] [id number] [address] [place] [address], [place] [address] October, [facility] [address] [id number] [address] [place] [address], [place] [address] October, [facility] [address] [id number] [address] [place] [address], [place] [address] October, [facility] [address] [id number] [address] [place] [address], [place] [address] Sep, [facility] [address] [id number] [address] [place] [address], [place] [address] 18 Sep, 2011 [facility] [address] [id number] [address] [place] [address], [place] [address] 30 Aug, 2011 [facility] [address] [id number] [address] [place] [address], [place] [address] Aug, [facility] [address] [id number] [address] [place] [address], [place] [address] Aug, [facility] [address] [id number] [address] [place] [address], [place] [address] Aug, [facility] [address] [id number] [address] [place] [address], [place] [address] Aug, [facility] [address] [id number] [address] [place] [address], [place] [address] Aug, [facility] [address] [id number] [address] [place] [address], [place] [address] Aug, [facility] [address] [id number] [address] [place] [address], [place] [address] Jul, [facility] [address] [id number] [address] [place] [address], [place] [address] Jul, [facility] [address] [id number] [address] [place] [address], [place] [address] Jul, [facility] [address] [id number] [address] [place] [address], [place] [address] May, [facility] [address] [id number] [address] [place] [address], [place] [address] May, [facility] [address] [id number] [address] [place] [address], [place] [address] May, [facility] [address] [id number] [address] [place] [address], [place] [address] 19 May, 2011 [facility] [address] [id number] [address] [place] [address], [place] [address] May, [facility] [address] [id number] [address] [place] [address], [place] [address] May, [facility] [address] [id number] [address] [place] [address], [place] [address] May, [facility] [address] [id number] [address] [place] [address], [place] [address] 25 Mar, 2011 [facility] [address] [id number] [address] [place] [address], [place] [address] 20 Mar, 2011 [facility] [address] [id number] [address] [place] [address], [place] [address] Mar, [facility] [address] [id number] [address] [place] [address], [place] [address] 15 Mar, 2011 [facility] [address] [id number] [address] [place] [address], [place] [address] 27 Mar, 2010 [facility] [address] [id number] [address] [place] [address], [place] [address] Mar, [facility] [address] [id number] [address] [place] [address], [place] [address] Jan, [facility] [address] [id number] [address] [place] [address], [place] [address] 31 May, 2009 [facility] [address] [id number] [address] [place] [address], [place] [address] 16 May, 2009 [facility] [address] [id number] [address] [place] [address], [place] [address] 07 May, 2009 [facility] [address] [id number] [address] [place] [address], [place] [address] May, [facility] [address] [id number] [address] [place] [address], [place] [address] May, [facility] [address] [facility] [id number] [address] [place] [id number] May, [facility] [address] [facility] [id number] [address] [place] [id number] Mar, [facility] [address] [facility] [id number] [address] [place] [id number] Sep, IMMUNIZATIONS No Known Immunizations SOCIAL HISTORY [...]
--- OUTSIDE RECORDS SUMMARY | 2019-12-30 23:36 | XMS REPORT ---
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 ontraception Z30.42 [facility] [address] [facility] [id number] [address] [place] [address] Jan, [facility] [address] [id number] [address] [place] [id number] Jan, [facility] [address] [id number] [address] [place] [id number] Jan, [facility] [address] [id number] [address] [place] [id number] Jan, Carpal tunnel syndrome, righ t upper limb G56.01 [facility] [address] [id number] [address] [place] [address] Jan, Bilateral otitis media, unsp ecified chronicity, unspecified otitis media type H66.93 [facility] [address] [id number] [address] [place] [id number] Jan, Lumbago with sciatica, left side M54.42 [facility] [address] [id number] [address] [place] [id number] Jan, [facility] [address] [id number] [address] [place] [id number] Jan, [facility] [address] [id number] [address] [place] [address] Jan, Sore throat J02.9 ; Carpal t unnel syndrome, left upper limb G56.02 and Carpal tunnel syndrome, right upper limb G56.01 [facility] [address] [id number] [address] [place] [id number] Dec, [facility] [address] [id number] [address] [place] [id number] Dec, [facility] [address] [id number] [address] [place] [id number] Dec, [facility] [address] [id number] [address] [place] [address] Dec, [facility] [address] [id number] [address] [place] [id number] Dec, Lumbago with sciatica, left side M54.42 [facility] [address] [id number] [address] [place] [id number] Dec, Anxiety F41.9 [facility] [address] [facility] [id number] [address] [place] [id number] Dec, Tremor R25.1 ; Back pain wit h right-sided radiculopathy M54.10 and Headache R51 [facility] [address] [id number] [address] [place] [id number] Dec, [facility] [address] [id number] [address] [place] [id number] Dec, [facility] [address] [facility] [id number] [address] [place] [id number] Dec, Lumbago with sciatica, left side M54.42 [facility] [address] [id number] [address] [place] [id number] Dec, Dizziness R42 [facility] [address] [id number] [address] [place] [address] Nov, [facility] [address] [facility] [id number] [address] [place] [address] Nov, Lumbago with sciatica, left side M54.42 and Lumbago with sciatica, right side M54.41 [facility] [address] [id number] [address] [place] [address] Nov, Anxiety F41.9 [facility] [address] [id number] [address] [place] [id number] Nov, [facility] [address] [facility] [id number] [address] [place] [id number] Nov, Headache R51 [facility] [address] [facility] [id number] [address] [place] [id number] October, Encounter for Depo-Provera c ontraception Z30.42 [facility] [address] [facility] [id number] [address] [place] [address] October, Anxiety F41.9 [facility] [address] [facility] [id number] [address] [place] [address] October, Anxiety F41.9 [facility] [address] [facility] [id number] [address] [place] [id number] October, [facility] [address] [facility] [id number] [address] [place] [id number] October, Vaginal yeast infection B37. 3 [facility] [address] [id number] [address] [place] [id number] October, [facility] [address] [facility] [id number] [address] [place] [id number] October, Headache R51 [facility] [address] [facility] [id number] [address] [place] [phone] Sep, [facility] [address] [facility] [id number] [address] [place] [id number] Sep, [facility] [address] [facility] [id number] [address] [place] [id number] Sep, Headache R51 [facility] [address] [facility] [id number] [address] [place] [id number] Sep, [facility] [address] [facility] [id number] [address] [place] [id number] Sep, Headache R51 [facility] [address] [facility] [id number] [address] [place] [id number] Aug, 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 and Headache R51 [facility] [address] [facility] [id number] [address] [place] [id number] Aug, [facility] [address] [facility] [id number] [address] [place] [address] Aug, Headache R51 ; Forgetfulness R68.[address] scan, head R93.0 [facility] [address] [facility] [id number] [address] [place] [phone] 16 Aug, 2015 [facility] [address] [facility] [id number] [address] [place] [id number] 15 Aug, 2015 [facility] [address] [place] [id number] [address] [place] [id number] Aug, [facility] [address] [place] [id number] [place] [address] Aug, Headache R51 [place] [address] [place] [id number] [place] [phone] 08 Aug, 2015 Abnormal computed tomography angiography of head R93.0 [place] [address] [place] [id number] [place] [address], [address] of the head R93. 0 [place] [address] [place] [id number] [place] [address] Aug, Headache R51 ; Nausea R11.0 and Forgetfulness R68.89 [place] [address] [address] Aug, Mental disor NOS oth dis F99 ; Unspecified mood [affective] disorder F39 and Anxiety disorder, unspecified F41.9 [place] [address] [place] [id number] [address] [place] [address] Aug, [facility] [address] [place] [id number] [address] [place] [id number] Aug, [place] [address] [address] Aug, Encounter for Depo-Provera c ontraception Z30.42 [facility] [address] [place] [id number] [address] [place] [id number] Jul, [facility] [address] [place] [id number] [place] [address] Jul, Contusion of unspecified fin laura without damage to nail, subsequent encounter S60.00XD [facility] [address] [facility] [id number] [address] [place] [id number] May, [facility] [address] [facility] [id number] [address] [place] [address] May, [facility] [address] [id number] [address] [place] [id number] May, Dental examination Z01.20 [facility] [address] [facility] [id number] [address] [place] [id number] May, Hematuria R31.9 [facility] [address] [place] [id number] [address] [place] [id number] May, [facility] [address] [place] [id number] [address] [place] [address] May, Generalized anxiety disorder F41.1 [facility] [address] [place] [id number] [address] [place] [id number] May, [facility] [address] [place] [id number] [address] [place] [address] May, [facility] [address] [place] [id number] [address] [place] [address] May, [facility] [address] [place] [id number] [address] [place] [address] Mar, Upper respiratory tract infe ction, unspecified upper respiratory infection J06.9 ; Anaphylaxis, subsequent encounter T78.2XXD ; Encounter for Depo-Provera contraception Z30.42 and Encounter for surveillance of injectable contraceptive Z30.42 [facility] [address] [facility] [id number] [address] [place] [id number] Mar, [facility] [address] [facility] [id number] [address] [place] [id number] Mar, [facility] [address] [place] [id number] [address] [place] [id number] Mar, [facility] [address] [id number] [address] [place] [id number] Mar, [facility] [address] [id number] [address] [place] [phone] Mar, [facility] [address] [id number] [address] [place] [phone] Jan, [facility] [address] [id number] [address] [place] [phone] Jan, [facility] [address] [id number] [address] [place] [id number] Jan, [facility] [address] [id number] [address] [place] [phone] Dec, [facility] [address] [id number] [address] [place] [id number] Dec, Dental examination V72.2 [facility] [address] [id number] [address] [place] [phone] Dec, [facility] [address] [id number] [address] [place] [id number] Nov, [facility] [address] [id number] [address] [place] [id number] Nov, [facility] [address] [id number] [address] [place] [address] Nov, Abdominal pain 789.00 and Na usea and vomiting 787.01 [facility] [address] [id number] [address] [place] [id number] Nov, UTI (lower urinary tract inf ection) 599.0 and Abdominal pain 789.00 [facility] [address] [id number] [address] [place] [address] October, [facility] [address] [id number] [address] [place] [id number] 14 Sep, 2014 [facility] [address] [id number] [address] [place] [address], [place] [address] Sep, [facility] [address] [id number] [address] [place] [address], [place] [address] Aug, [facility] [address] [id number] [address] [place] [address], [place] [address] Aug, [facility] [address] [id number] [address] [place] [address], [place] [address] Aug, [facility] [address] [id number] [address] [place] [address], [place] [address] Aug, [facility] [address] [id number] [address] [place] [address], [place] [address] Aug, [facility] [address] [id number] [address] [place] [address], [place] [address] Aug, [facility] [address] [id number] [address] [place] [address], [place] [address] Aug, [facility] [address] [id number] [address] [place] [address], [place] [address] Aug, [facility] [address] [id number] [address] [place] [address], [place] [address] Jul, [facility] [address] [id number] [address] [place] [address], [place] [address] Jul, [facility] [address] [id number] [address] [place] [address], [place] [address] Jul, [facility] [address] [id number] [address] [place] [address], [place] [address] Jul, [facility] [address] [id number] [address] [place] [address], [place] [address] Jul, [facility] [address] [id number] [address] [place] [address], [place] [address] Jul, [facility] [address] [id number] [address] [place] [address], [place] [address] Jul, [facility] [address] [id number] [address] [place] [address], [place] [address] Jul, [facility] [address] [id number] [address] [place] [address], [place] [address] Jul, [facility] [address] [id number] [address] [place] [address], [place] [address] Jul, [facility] [place] [address] [id number] [address] [place] [address], [place] [address] Jul, [facility] [place] [address] [id number] [address] [place] [address], [place] [address] Jul, [facility] [address] [id number] [address] [place] [address], [place] [address] May, [facility] [address] [id number] [address] [place] [address], [place] [address] May, [facility] [address] [id number] [address] [place] [address], [place] [address] May, [facility] [address] [id number] [address] [place] [address], [place] [address] May, [facility] [address] [id number] [address] [place] [address], [place] [address] May, [facility] [address] [id number] [address] [place] [address], [place] [address] May, [facility] [address] [id number] [address] [place] [address], [place] [address] May, [facility] [facility] [address] [id number] [address] [place] [address], [place] [address] May, [facility] [address] [id number] [address] [place] [address], [place] [address] May, [facility] [address] [id number] [address] [place] [address], [place] [address] May, [facility] [address] [id number] [address] [place] [address], [place] [address] May, [facility] [address] [id number] [address] [place] [address], [place] [address] May, [facility] [address] [id number] [address] [place] [address], [place] [address] May, [facility] [address] [id number] [address] [place] [address], [place] [address] May, [facility] [address] [id number] [address] [place] [address], [place] [address] May, [facility] [address] [id number] [address] [place] [address], [place] [address] May, [facility] [address] [id number] [address] [place] [address], [place] [address] May, [facility] [address] [id number] [address] [place] [address], [place] [address] May, [facility] [address] [id number] [address] [place] [address], [place] [address] May, [facility] [address] [id number] [address] [place] [address], [place] [address] May, [facility] [address] [id number] [address] [place] [address], [place] [address] May, [facility] [address] [id number] [address] [place] [address], [place] [address] May, [facility] [address] [id number] [address] [place] [address], [place] [address] May, [facility] [address] [id number] [address] [place] [address], [place] [address] 15 May, 2014 [facility] [address] [id number] [address] [place] [address], [place] [address] 13 May, 2014 [facility] [address] [id number] [address] [place] [address] May, [facility] [address] [id number] [address] [place] [address], [place] [address] May, [facility] [address] [id number] [address] [place] [address], [place] [address] May, [facility] [address] [id number] [address] [place] [address], [place] [address] May, [facility] [address] [id number] [address] [place] [address], [place] [address] May, [facility] [address] [id number] [address] [place] [address], [place] [address] May, [facility] [address] [id number] [address] [place] [address], [place] [address] May, [facility] [address] [id number] [address] [place] [address], [place] [address] May, [facility] [address] [id number] [address] [place] [address], [place] [address] May, [facility] [address] [id number] [address] [place] [address], [place] [address] May, [facility] [address] [id number] [address] [place] [address], [place] [address] Mar, [facility] [address] [id number] [address] [place] [address], [place] [address] Mar, [facility] [address] [id number] [address] [place] [address], [place] [address] Mar, [facility] [address] [id number] [address] [place] [address], [place] [address] Mar, [facility] [address] [id number] [address] [place] [address], [place] [address] Mar, [facility] [address] [id number] [address] [place] [address], [place] [address] Mar, [facility] [address] [id number] [facility] [place] [address] Mar, [facility] [address] [id number] [address] [place] [address], [place] [address] Mar, [facility] [address] [id number] [facility] [address] Mar, [facility] [address] [id number] [address] [place] [address], [place] [address] Mar, 2013 [facility] [address] [id number] [address] [place] [address], [place] [address] Mar, [facility] [address] [id number] [address] [place] [address], [place] [address] Mar, [facility] [address] [id number] [address] [place] [address], [place] [address] Mar, [facility] [address] [id number] [address] [place] [address], [place] [address] Mar, [facility] [address] [id number] [address] [place] [address], [place] [address] Jan, [facility] [address] [id number] [address] [place] [address], [place] [address] Jan, [facility] [address] [id number] [address] [place] [address], [place] [address] Jan, [facility] [address] [id number] [address] [place] [address], [place] [address] Jan, [facility] [address] [id number] [address] [place] [address], [place] [address] Jan, [facility] [address] [id number] [address] [place] [address], [place] [address] Jan, [facility] [address] [id number] [address] [place] [address], [place] [address] Jan, [facility] [address] [id number] [address] [place] [address], [place] [address] Jan, [facility] [address] [id number] [facility] [place] [address] Jan, [facility] [address] [id number] [facility] [place] [address] Dec, [facility] [address] [id number] [facility] [address] Dec, [facility] [address] [id number] [address] [place] [address], [place] [address] Dec, [facility] [address] [id number] [facility] [place] [address] Dec, [facility] [address] [id number] [address] [place] [address], [place] [address] Dec, [facility] [address] [id number] [address] [place] [address], [place] [address] Dec, [facility] [address] [id number] [address] [place] [address], [place] [address] Dec, [facility] [address] [id number] [address] [place] [address], [place] [address] Dec, [facility] [address] [id number] [address] [place] [address], [place] [address] Dec, [facility] [address] [id number] [address] [place] [address], [place] [address] October, [facility] [address] [id number] [address] [place] [address], [place] [address] October, [facility] [address] [id number] [address] [place] [address], [place] [address] Sep, [facility] [address] [id number] [address] [place] [address], [place] [address] Sep, [facility] [address] [id number] [address] [place] [address], [place] [address] Aug, [facility] [address] [id number] [address] [place] [address], [place] [address] 07 Aug, 2013 [facility] [address] [id number] [address] [place] [address], [place] [address] 07 Aug, 2013 [facility] [address] [id number] [address] [place] [address], [place] [address] 07 Aug, 2013 [facility] [address] [id number] [address] [place] [address], [place] [address] 17 Aug, 2013 [facility] [address] [id number] [address] [place] [address], [place] [address] 17 Aug, 2013 [facility] [address] [id number] [address] [place] [address], [place] [address] 14 Aug, 2013 [facility] [address] [id number] [address] [place] [address], [place] [address] 07 Aug, 2013 [facility] [address] [id number] [address] [place] [address], [place] [address] 07 Aug, 2013 [facility] [address] [id number] [address] [place] [address], [place] [address] Aug, [facility] [address] [id number] [address] [place] [address], [place] [address] Aug, [facility] [address] [id number] [address] [place] [address], [place] [address] Jul, [facility] [address] [id number] [address] [place] [address], [place] [address] Jul, [facility] [address] [id number] [address] [place] [address], [place] [address] May, [facility] [address] [id number] [address] [place] [address], [place] [address] May, [facility] [address] [id number] [address] [place] [address], [place] [address] May, [facility] [address] [id number] [address] [place] [address], [place] [address] May, [facility] [address] [id number] [address] [place] [address], [place] [address] May, [facility] [address] [id number] [address] [place] [address], [place] [address] May, [facility] [address] [id number] [address] [place] [address], [place] [address] May, [facility] [address] [id number] [address] [place] [address], [place] [address] May, [facility] [address] [id number] [address] [place] [address], [place] [address] May, [facility] [address] [id number] [address] [place] [address], [place] [address] May, [facility] [address] [id number] [address] [place] [address], [place] [address] May, [facility] [address] [id number] [address] [place] [address], [place] [address] May, [facility] [address] [id number] [address] [place] [address], [place] [address] May, [facility] [address] [id number] [address] [place] [address], [place] [address] May, [facility] [address] [id number] [address] [place] [address], [place] [address] May, [facility] [address] [id number] [address] [place] [address] May, [facility] [address] [id number] [address] [place] [address], [place] [address] 18 May, 2013 [facility] [address] [id number] [address] [place] [address], [place] [address] May, [facility] [address] [id number] [address] [place] [address], [place] [address] 16 May, 2013 [facility] [address] [id number] [address] [place] [address], [place] [address] 16 May, 2013 [facility] [address] [id number] [address] [place] [address], [place] [address] May, [facility] [address] [id number] [address] [place] [address], [place] [address] May, [facility] [address] [id number] [address] [place] [address], [place] [address] May, [facility] [address] [id number] [address] [place] [address], [place] [address] May, [facility] [address] [id number] [address] [place] [address], [place] [address] May, [facility] [address] [id number] [address] [place] [address], [place] [address] May, [facility] [address] [id number] [address] [place] [address], [place] [address] May, [facility] [address] [id number] [address] [place] [address], [place] [address] May, [facility] [address] [id number] [address] [place] [address], [place] [address] May, [facility] [address] [id number] [address] [place] [address], [place] [address] May, [facility] [address] [id number] [address] [place] [address], [place] [address] Mar, [facility] [address] [id number] [address] [place] [address] Mar, [facility] [address] [id number] [address] [place] [address], [place] [address] Mar, [facility] [address] [id number] [address] [place] [address], [place] [address] Mar, [facility] [address] [id number] [address] [place] [address] 30 Mar, 2013 [facility] [address] [id number] [address] [place] [address], [place] [address] Mar, [facility] [address] [id number] [address] [place] [address], [place] [address] Mar, [facility] [address] [id number] [address] [place] [address], [place] [address] Mar, [facility] [address] [id number] [address] [place] [address], [place] [address] Mar, [facility] [address] [id number] [address] [place] [address], [place] [address] Mar, [facility] [address] [id number] [address] [place] [address], [place] [address] Mar, [facility] [address] [id number] [address] [place] [address], [place] [address] Mar, [facility] [address] [id number] [address] [place] [address], [place] [address] Mar, [facility] [address] [id number] [address] [place] [address], [place] [address] Mar, [facility] [address] [id number] [address] [place] [address], [place] [address] Mar, [facility] [address] [id number] [address] [place] [address], [place] [address] Mar, [facility] [address] [id number] [address] [place] [address], [place] [address] Mar, [facility] [address] [id number] [address] [place] [address], [place] [address] Mar, [facility] [address] [id number] [address] [place] [address], [place] [address] Mar, [facility] [address] [id number] [address] [place] [address], [place] [address] Mar, [facility] [address] [id number] [address] [place] [address], [place] [address] 18 Mar, 2013 [facility] [address] [id number] [address] [place] [address], [place] [address] 14 Mar, 2013 [facility] [address] [id number] [address] [place] [address], [place] [address] 14 Mar, 2013 [facility] [address] [id number] [address] [place] [address], [place] [address] 10 Mar, 2013 [facility] [address] [id number] [address] [place] [address], [place] [address] 18 Mar, 2013 [facility] [address] [id number] [address] [place] [address], [place] [address] 12 Mar, 2013 [facility] [address] [id number] [address] [place] [address], [place] [address] Mar, [facility] [address] [id number] [address] [place] [address], [place] [address] Jan, [facility] [address] [id number] [address] [place] [address], [place] [address] October, [facility] [address] [id number] [address] [place] [address], [place] [address] Sep, [facility] [address] [id number] [address] [place] [address], [place] [address] Sep, [facility] [address] [id number] [address] [place] [address], [place] [address] 07 Aug, 2012 [facility] [address] [id number] [address] [place] [address], [place] [address] 06 Aug, 2012 [facility] [address] [id number] [address] [place] [address], [place] [address] 04 Aug, 2012 [facility] [address] [id number] [address] [place] [address], [place] [address] Jul, [facility] [address] [id number] [address] [place] [address], [place] [address] May, [facility] [address] [id number] [address] [place] [address], [place] [address] 19 May, 2012 [facility] [address] [id number] [address] [place] [address], [place] [address] 18 May, 2012 [facility] [address] [id number] [address] [place] [address], [place] [address] 18 May, 2012 [facility] [address] [id number] [address] [place] [address], [place] [address] 19 Mar, 2012 [facility] [address] [id number] [address] [place] [address], [place] [address] 19 Mar, 2012 [facility] [address] [id number] [address] [place] [address], [place] [address] 16 Mar, 2012 [facility] [address] [id number] [address] [place] [address], [place] [address] 25 Mar, 2012 [facility] [address] [id number] [address] [place] [address], [place] [address] 19 Mar, 2012 [facility] [address] [id number] [address] [place] [address], [place] [address] 13 Mar, 2012 [facility] [address] [id number] [address] [place] [address], [place] [address] 07 Mar, 2012 [facility] [address] [id number] [address] [place] [address], [place] [address] 30 Jan, 2012 [facility] [address] [id number] [address] [place] [address], [place] [address] Jan, [facility] [address] [id number] [address] [place] [address], [place] [address] Jan, [facility] [address] [id number] [address] [place] [address], [place] [address] 14 Jan, 2012 [facility] [address] [id number] [address] [place] [address], [place] [address] Jan, [facility] [address] [id number] [address] [place] [address], [place] [address] Jan, [facility] [address] [id number] [facility] [address] Jan, [facility] [address] [id number] [address] [place] [address], [place] [address] Jan, [facility] [address] [id number] [address] [place] [address], [place] [address] Jan, [facility] [address] [id number] [address] [place] [address], [place] [address] Jan, [facility] [address] [id number] [address] [place] [address], [place] [address] Jan, [facility] [address] [id number] [address] [place] [address], [place] [address] Jan, [facility] [address] [id number] [address] [place] [address], [place] [address] Jan, [facility] [address] [id number] [address] [place] [address], [place] [address] Jan, [facility] [address] [id number] [address] [place] [address], [place] [address] Jan, [facility] [address] [id number] [address] [place] [address], [place] [address] Jan, [facility] [address] [id number] [address] [place] [address], [place] [address] Dec, [facility] [address] [id number] [address] [place] [address], [place] [address] Dec, [facility] [address] [id number] [address] [place] [address], [place] [address] Nov, [facility] [address] [id number] [address] [place] [address], [place] [address] Nov, [facility] [address] [id number] [address] [place] [address], [place] [address] October, [facility] [address] [id number] [address] [place] [address], [place] [address] October, [facility] [address] [id number] [address] [place] [address], [place] [address] October, [facility] [address] [id number] [address] [place] [address], [place] [address] 19 Sep, 2011 [facility] [address] [id number] [address] [place] [address], [place] [address] 18 Sep, 2011 [facility] [address] [id number] [address] [place] [address], [place] [address] 30 Aug, 2011 [facility] [address] [id number] [address] [place] [address], [place] [address] 28 Aug, 2011 [facility] [address] [id number] [address] [place] [address], [place] [address] Aug, [facility] [address] [id number] [address] [place] [address], [place] [address] Aug, [facility] [address] [id number] [address] [place] [address], [place] [address] Aug, [facility] [address] [id number] [address] [place] [address], [place] [address] 14 Aug, 2011 [facility] [address] [id number] [address] [place] [address], [place] [address] Aug, [facility] [address] [id number] [address] [place] [address], [place] [address] Jul, [facility] [address] [id number] [address] [place] [address], [place] [address] Jul, [facility] [address] [id number] [address] [place] [address], [place] [address] Jul, [facility] [address] [id number] [address] [place] [address], [place] [address] May, [facility] [address] [id number] [address] [place] [address], [place] [address] May, [facility] [address] [id number] [address] [place] [address], [place] [address] May, [facility] [address] [id number] [address] [place] [address], [place] [address] May, [facility] [address] [id number] [address] [place] [address], [place] [address] May, [facility] [address] [id number] [address] [place] [address], [place] [address] May, [facility] [address] [id number] [address] [place] [address], [place] [address] May, [facility] [address] [id number] [address] [place] [address], [place] [address] Mar, [facility] [address] [id number] [address] [place] [address], [place] [address] Mar, [facility] [address] [id number] [address] [place] [address], [place] [address] Mar, [facility] [address] [id number] [address] [place] [address], [place] [address] 15 Mar, 2011 [facility] [address] [id number] [address] [place] [address], [place] [address] 27 Mar, 2010 [facility] [address] [id number] [address] [place] [address], [place] [address] 13 Mar, 2010 [facility] [address] [id number] [address] [place] [address], [place] [address] Jan, [facility] [address] [id number] [address] [place] [address], [place] [address] 31 May, 2009 [facility] [address] [id number] [address] [place] [address], [place] [address] 16 May, 2009 [facility] [address] [id number] [address] [place] [address], [place] [address] 07 May, 2009 [facility] [address] [id number] [address] [address] May, [facility] [address] [facility] [id number] [address] [place] [address] May, [facility] [address] [facility] [id number] [address] [place] [address] May, [facility] [address] [facility] [id number] [address] [place] [address] Mar, [facility] [address] [facility] [id number] [address] [place] [address] Sep, IMMUNIZATIONS No Known Immunizations SOCIAL HISTORY [...]
--- OUTSIDE RECORDS SUMMARY | 2019-12-30 23:37 | XMS REPORT ---
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 M54.42 [facility] [address] [id number] [address] [place] [address] Jan, [facility] [address] [facility] [id number] [address] [place] [address] Jan, [facility] [address] [facility] [id number] [address] [place] [address] Jan, Sore throat J02.9 ; Carpal t unnel syndrome, left upper limb G56.02 and Carpal tunnel syndrome, right upper limb G56.01 [facility] [address] [id number] [address] [place] [address] Dec, [facility] [address] [id number] [address] [place] [address] Dec, [facility] [address] [facility] [id number] [address] [place] [address] Dec, [facility] [address] [id number] [address] [place] [address] Dec, [facility] [address] [id number] [address] [place] [address] Dec, Lumbago with sciatica, left side M54.42 [facility] [address] [id number] [address] [place] [address] Dec, Anxiety F41.9 [facility] [address] [facility] [id number] [address] [place] [address] Dec, Tremor R25.1 ; Back pain wit h right-sided radiculopathy M54.10 and Headache R51 [facility] [address] [id number] [address] [place] [address] Dec, [facility] [address] [id number] [address] [place] [address] Dec, [facility] [address] [id number] [address] [place] [address] Dec, Lumbago with sciatica, left side M54.42 [facility] [address] [id number] [address] [place] [address] Dec, Dizziness R42 [facility] [address] [id number] [address] [place] [address] Nov, [facility] [address] [facility] [id number] [address] [place] [address] Nov, Lumbago with sciatica, left side M54.42 and Lumbago with sciatica, right side M54.41 [facility] [address] [facility] [id number] [address] [place] [address] Nov, Anxiety F41.9 [facility] [address] [id number] [address] [place] [address] Nov, [facility] [address] [facility] [id number] [address] [place] [address] Nov, Headache R51 [facility] [address] [id number] [address] [place] [address] October, Encounter for Depo-Provera c ontraception Z30.42 [facility] [address] [id number] [address] [place] [address] October, Anxiety F41.9 [facility] [address] [facility] [id number] [address] [place] [address] October, Anxiety F41.9 [facility] [address] [id number] [address] [place] [address] October, [facility] [address] [facility] [id number] [address] [place] [address] October, Vaginal yeast infection B37. 3 [facility] [address] [facility] [id number] [address] [place] [address] October, [facility] [address] [facility] [id number] [address] [place] [address] October, Headache R51 [facility] [address] [id number] [address] [place] [address] Sep, [facility] [address] [facility] [id number] [address] [place] [address] Sep, [facility] [address] [facility] [id number] [address] [place] [address] Sep, Headache R51 [facility] [address] [facility] [id number] [address] [place] [address] Sep, [facility] [address] [facility] [id number] [address] [place] [address] Sep, Headache R51 [facility] [address] [facility] [id number] [address] [place] [address] 29 Aug, 2015 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 and Headache R51 [facility] [address] [facility] [id number] [address] [place] [address] 24 Aug, 2015 [facility] [address] [facility] [id number] [address] [place] [address] Aug, Headache R51 ; Forgetfulness R68.[address] scan, head R93.0 [facility] [address] [facility] [id number] [address] [place] [address] 16 Aug, 2015 [facility] [address] [facility] [id number] [address] [place] [address] 15 Aug, 2015 [place] [id number] [place] [id number] [address] [place] [address] 14 Aug, 2015 [place] [address] [address] Aug, Headache R51 [place] [address] [place] [id number] [place] [address] 08 Aug, 2015 Abnormal computed tomography angiography of head R93.0 [place] [address] [place] [id number] [place] [address] 07 Aug, [address] of the head R93. 0 [place] [address] [address] Aug, Headache R51 ; Nausea R11.0 and Forgetfulness R68.89 [place] [address] [address] Aug, Mental disor NOS oth dis F99 ; Unspecified mood [affective] disorder F39 and Anxiety disorder, unspecified F41.9 [place] [address] [address] Aug, [place] [address] [address] Aug, [place] [address] [place] [id number] [address] [place] [address] Aug, Encounter for Depo-Provera c ontraception Z30.42 [place] [address] [place] [id number] [address] [place] [address] Jul, [place] [address] [address] Jul, Contusion of unspecified fin laura without damage to nail, subsequent encounter S60.00XD [place] [address] [place] [id number] [address] [place] [address] May, [place] [address] [place] [id number] [place] [address] May, [facility] [address] [id number] [address] [place] [id number] May, Dental examination Z01.20 [facility] [address] [facility] [id number] [address] [place] [address] May, Hematuria R31.9 [facility] [address] [facility] [id number] [address] [place] [address] May, [facility] [address] [facility] [id number] [address] [place] [address] May, Generalized anxiety disorder F41.1 [facility] [address] [place] [id number] [address] [place] [address] May, [facility] [address] [place] [id number] [address] [place] [address] May, [facility] [address] [place] [id number] [address] [place] [address] May, [facility] [address] [place] [id number] [address] [place] [address] Mar, Upper respiratory tract infe ction, unspecified upper respiratory infection J06.9 ; Anaphylaxis, subsequent encounter T78.2XXD ; Encounter for Depo-Provera contraception Z30.42 and Encounter for surveillance of injectable contraceptive Z30.42 [facility] [address] [facility] [id number] [address] [place] [address] Mar, [facility] [address] [facility] [id number] [address] [place] [address] Mar, [facility] [address] [place] [id number] [address] [place] [address] Mar, [facility] [address] [facility] [id number] [address] [place] [address] Mar, [facility] [address] [place] [id number] [address] [place] [address] Mar, [facility] [address] [id number] [address] [place] [address] Jan, [facility] [address] [id number] [address] [place] [address] Jan, [facility] [address] [id number] [address] [place] [address] Jan, [facility] [address] [id number] [address] [place] [address] Dec, [facility] [address] [id number] [address] [place] [id number] Dec, Dental examination V72.2 [facility] [address] [id number] [address] [place] [address] Dec, [facility] [address] [id number] [address] [place] [address] Nov, [facility] [address] [id number] [address] [place] [address] Nov, [facility] [address] [id number] [address] [place] [address] Nov, Abdominal pain 789.00 and Na usea and vomiting 787.01 [facility] [address] [id number] [address] [place] [address] Nov, UTI (lower urinary tract inf ection) 599.0 and Abdominal pain 789.00 [facility] [address] [id number] [address] [place] [address] October, [facility] [address] [id number] [address] [place] [address] Sep, [facility] [address] [id number] [address] [place] [address] Sep, [facility] [address] [id number] [address] [place] [address] Aug, [facility] [address] [id number] [address] [place] [address], [place] [address] Aug, [facility] [address] [id number] [address] [place] [address], [place] [address] Aug, [facility] [address] [id number] [address] [place] [address], [place] [address] Aug, [facility] [address] [id number] [address] [place] [address], [place] [address] Aug, [facility] [address] [id number] [address] [place] [address], [place] [address] Aug, [facility] [address] [id number] [address] [place] [address], [place] [address] Aug, [facility] [address] [id number] [address] [place] [address], [place] [address] Aug, [facility] [address] [id number] [address] [place] [address], [place] [address] Jul, [facility] [address] [id number] [address] [place] [address], [place] [address] Jul, [facility] [address] [id number] [address] [place] [address], [place] [address] Jul, [facility] [address] [id number] [address] [place] [address], [place] [address] Jul, [facility] [address] [id number] [address] [place] [address], [place] [address] Jul, [facility] [address] [id number] [address] [place] [address], [place] [address] Jul, [facility] [address] [id number] [address] [place] [address], [place] [address] Jul, [facility] [address] [id number] [address] [place] [address], [place] [address] Jul, [facility] [address] [id number] [address] [place] [address], [place] [address] Jul, [facility] [address] [id number] [address] [place] [address], [place] [address] Jul, [facility] [address] [id number] [address] [place] [address], [place] [address] Jul, [facility] [address] [id number] [address] [place] [address], [place] [address] Jul, [facility] [address] [id number] [address] [place] [address], [place] [address] May, [facility] [address] [id number] [address] [place] [address], [place] [address] May, [facility] [address] [id number] [address] [place] [address], [place] [address] May, [facility] [address] [id number] [address] [place] [address], [place] [address] May, [facility] [address] [id number] [address] [place] [address], [place] [address] May, [facility] [address] [id number] [address] [place] [address], [place] [address] May, [facility] [address] [id number] [address] [place] [address], [place] [address] May, [facility] [address] [id number] [address] [place] [address], [place] [address] May, [facility] [address] [id number] [address] [place] [address], [place] [address] May, [facility] [address] [id number] [address] [place] [address], [place] [address] May, [facility] [address] [id number] [address] [place] [address], [place] [address] May, [facility] [address] [id number] [address] [place] [address], [place] [address] May, [facility] [address] [id number] [address] [place] [address], [place] [address] 17 May, 2014 [facility] [address] [id number] [address] [place] [address], [place] [address] May, [facility] [address] [id number] [address] [place] [address], [place] [address] May, [facility] [address] [id number] [address] [place] [address], [place] [address] May, [facility] [address] [id number] [address] [place] [address], [place] [address] May, [facility] [address] [id number] [address] [place] [address], [place] [address] May, [facility] [address] [id number] [address] [place] [address], [place] [address] May, [facility] [address] [id number] [address] [place] [address], [place] [address] May, [facility] [address] [id number] [address] [place] [address], [place] [address] May, [facility] [address] [id number] [address] [place] [address], [place] [address] May, [facility] [address] [id number] [address] [place] [address], [place] [address] 15 May, 2014 [facility] [address] [id number] [address] [place] [address], [place] [address] 15 May, 2014 [facility] [address] [id number] [address] [place] [address], [place] [address] May, [facility] [address] [id number] [address] [place] [address], [place] [address] May, [facility] [address] [id number] [address] [place] [address], [place] [address] May, [facility] [address] [id number] [address] [place] [address], [place] [address] May, [facility] [address] [id number] [address] [place] [address], [place] [address] May, [facility] [address] [id number] [address] [place] [address], [place] [address] May, [facility] [address] [id number] [address] [place] [address], [place] [address] May, [facility] [address] [id number] [address] [place] [address], [place] [address] May, [facility] [address] [id number] [address] [place] [address], [place] [address] May, [facility] [address] [id number] [address] [place] [address], [place] [address] May, [facility] [address] [id number] [address] [place] [place] [address], [place] [address] May, [facility] [address] [id number] [address] [place] [address], [place] [address] Mar, [facility] [address] [id number] [address] [place] [address], [place] [address] Mar, [facility] [address] [id number] [address] [place] [address] Mar, [facility] [address] [id number] [address] [place] [address] Mar, [facility] [address] [id number] [address] [place] [address] Mar, [facility] [address] [id number] [address] [place] [address], [place] [address] Mar, [facility] [address] [id number] [address] [place] [address], [place] [address] Mar, [facility] [address] [id number] [address] [place] [address] Mar, [facility] [address] [id number] [address] [place] [address] Mar, 2013 [facility] [address] [id number] [address] [place] [address], [place] [address] Mar, 2013 [facility] [address] [id number] [address] [place] [address], [place] [address] Mar, [facility] [address] [id number] [address] [place] [address], [place] [address] Mar, [facility] [address] [id number] [address] [place] [address], [place] [address] Mar, [facility] [address] [id number] [address] [place] [address], [place] [address] Mar, [facility] [address] [id number] [address] [place] [address], [place] [address] Jan, [facility] [address] [id number] [address] [place] [address], [place] [address] Jan, [facility] [address] [id number] [address] [place] [address], [place] [address] Jan, [facility] [address] [id number] [address] [place] [address], [place] [address] Jan, [facility] [address] [id number] [address] [place] [address], [place] [address] Jan, [facility] [address] [id number] [address] [place] [address], [place] [address] Jan, [facility] [address] [id number] [address] [place] [address], [place] [address] Jan, [facility] [address] [id number] [address] [place] [address], [place] [address] Jan, [facility] [address] [id number] [address] [place] [address], [place] [address] Jan, [facility] [address] [id number] [address] [place] [address], [place] [address] Dec, [facility] [address] [id number] [facility] [place] [address] Dec, [facility] [address] [id number] [facility] [place] [address] Dec, [facility] [address] [id number] [facility] [place] [address] Dec, [facility] [address] [id number] [facility] [place] [address] Dec, [facility] [address] [id number] [facility] [place] [address] Dec, [facility] [address] [id number] [address] [place] [address], [place] [address] Dec, [facility] [address] [id number] [address] [place] [address], [place] [address] Dec, [facility] [address] [id number] [address] [place] [address], [place] [address] Dec, [facility] [address] [id number] [address] [place] [address], [place] [address] October, [facility] [address] [id number] [address] [place] [address], [place] [address] October, [facility] [address] [id number] [address] [place] [address], [place] [address] Sep, [facility] [address] [id number] [address] [place] [address], [place] [address] 15 Sep, 2013 [facility] [address] [id number] [address] [place] [address], [place] [address] Aug, [facility] [address] [id number] [address] [place] [address], [place] [address] Aug, [facility] [address] [id number] [address] [place] [address], [place] [address] Aug, [facility] [address] [id number] [address] [place] [address], [place] [address] Aug, [facility] [address] [id number] [address] [place] [address], [place] [address] Aug, [facility] [address] [id number] [address] [place] [address], [place] [address] 17 Aug, 2013 [facility] [address] [id number] [address] [place] [address], [place] [address] 14 Aug, 2013 [facility] [address] [id number] [address] [place] [address], [place] [address] Aug, [facility] [address] [id number] [address] [place] [address], [place] [address] Aug, [facility] [address] [id number] [address] [place] [address], [place] [address] Aug, [facility] [address] [id number] [address] [place] [address], [place] [address] Aug, [facility] [address] [id number] [address] [place] [address], [place] [address] Jul, [facility] [address] [id number] [address] [place] [address], [place] [address] Jul, [facility] [address] [id number] [address] [place] [address], [place] [address] May, [facility] [address] [id number] [address] [place] [address], [place] [address] May, [facility] [address] [id number] [address] [place] [address], [place] [address] May, [facility] [address] [id number] [address] [place] [address], [place] [address] May, [facility] [address] [id number] [address] [place] [address], [place] [address] May, [facility] [address] [id number] [address] [place] [address], [place] [address] May, [facility] [address] [id number] [address] [place] [address], [place] [address] May, [facility] [address] [id number] [address] [place] [address], [place] [address] May, [facility] [address] [id number] [address] [place] [address], [place] [address] May, [facility] [address] [id number] [address] [place] [address], [place] [address] May, [facility] [address] [id number] [address] [place] [address], [place] [address] May, [facility] [address] [id number] [address] [place] [address], [place] [address] May, [facility] [address] [id number] [address] [place] [address], [place] [address] May, [facility] [address] [id number] [address] [place] [address], [place] [address] May, [facility] [address] [id number] [address] [place] [address], [place] [address] May, [facility] [address] [id number] [address] [place] [address], [place] [address] May, [facility] [address] [id number] [address] [place] [address], [place] [address] 18 May, 2013 [facility] [address] [id number] [address] [place] [address], [place] [address] 18 May, 2013 [facility] [address] [id number] [address] [place] [address], [place] [address] 16 May, 2013 [facility] [address] [id number] [address] [place] [address], [place] [address] 16 May, 2013 [facility] [address] [id number] [address] [place] [address], [place] [address] 11 May, 2013 [facility] [address] [id number] [address] [place] [address], [place] [address] May, [facility] [address] [id number] [address] [place] [address], [place] [address] May, [facility] [address] [id number] [address] [place] [address], [place] [address] May, [facility] [address] [id number] [address] [place] [address], [place] [address] May, [facility] [address] [id number] [address] [place] [address], [place] [address] May, [facility] [address] [id number] [address] [place] [address], [place] [address] May, [facility] [address] [id number] [address] [place] [address], [place] [address] May, [facility] [address] [id number] [address] [place] [address], [place] [address] May, [facility] [address] [id number] [address] [place] [address] May, [facility] [address] [id number] [address] [place] [address] Mar, [facility] [address] [id number] [address] [place] [address] Mar, [facility] [address] [id number] [address] [place] [address] Mar, [facility] [address] [id number] [address] [place] [address] Mar, [facility] [address] [id number] [address] [place] [address] 30 Mar, 2013 [facility] [address] [id number] [address] [place] [address] Mar, [facility] [address] [id number] [address] [place] [address] Mar, [facility] [address] [id number] [address] [place] [address], [place] [address] 29 Mar, 2013 [facility] [address] [id number] [address] [place] [address], [place] [address] 29 Mar, 2013 [facility] [address] [id number] [address] [place] [address], [place] [address] Mar, [facility] [address] [id number] [address] [place] [address], [place] [address] Mar, [facility] [address] [id number] [address] [place] [address], [place] [address] 24 Mar, 2013 [facility] [address] [id number] [address] [place] [address], [place] [address] 24 Mar, 2013 [facility] [address] [id number] [address] [place] [address], [place] [address] 23 Mar, 2013 [facility] [address] [id number] [address] [place] [address], [place] [address] 22 Mar, 2013 [facility] [address] [id number] [address] [place] [address], [place] [address] Mar, [facility] [address] [id number] [address] [place] [address], [place] [address] 21 Mar, 2013 [facility] [address] [id number] [address] [place] [address], [place] [address] 18 Mar, 2013 [facility] [address] [id number] [address] [place] [address], [place] [address] 18 Mar, 2013 [facility] [address] [id number] [address] [place] [address], [place] [address] 18 Mar, 2012 [facility] [address] [id number] [address] [place] [address], [place] [address] 18 Mar, 2013 [facility] [address] [id number] [address] [place] [address], [place] [address] 14 Mar, 2013 [facility] [address] [id number] [address] [place] [address] 14 Mar, 2013 [facility] [address] [id number] [address] [place] [address], [place] [address] 10 Mar, 2013 [facility] [address] [id number] [address] [place] [address], [place] [address] 18 Mar, 2013 [facility] [address] [id number] [address] [place] [address], [place] [address] 12 Mar, 2013 [facility] [address] [id number] [address] [place] [address], [place] [address] Mar, [facility] [address] [id number] [address] [place] [address], [place] [address] Jan, [facility] [address] [id number] [address] [place] [address], [place] [address] October, [facility] [address] [id number] [address] [place] [address], [place] [address] Sep, [facility] [address] [id number] [address] [place] [address], [place] [address] Sep, [facility] [address] [id number] [address] [place] [address], [place] [address] Aug, [facility] [address] [id number] [address] [place] [address], [place] [address] Aug, [facility] [address] [id number] [address] [place] [address], [place] [address] Aug, [facility] [address] [id number] [address] [place] [address], [place] [address] Jul, [facility] [address] [id number] [address] [place] [address], [place] [address] May, [facility] [address] [id number] [address] [place] [address], [place] [address] May, [facility] [address] [id number] [address] [place] [address], [place] [address] May, [facility] [address] [id number] [address] [place] [address] 18 May, 2012 [facility] [address] [id number] [address] [place] [address], [place] [address] 19 Mar, 2012 [facility] [address] [id number] [address] [place] [address], [place] [address] 19 Mar, 2012 [facility] [address] [id number] [address] [place] [address], [place] [address] 16 Mar, 2012 [facility] [address] [id number] [address] [place] [address], [place] [address] 25 Mar, 2012 [facility] [address] [id number] [address] [place] [address], [place] [address] 19 Mar, 2012 [facility] [address] [id number] [address] [place] [address], [place] [address] 13 Mar, 2012 [facility] [address] [id number] [address] [place] [address], [place] [address] 07 Mar, 2012 [facility] [address] [id number] [address] [place] [address], [place] [address] 30 Jan, 2012 [facility] [address] [id number] [address] [place] [address], [place] [address] Jan, [facility] [address] [id number] [address] [place] [address], [place] [address] Jan, [facility] [address] [id number] [address] [place] [address], [place] [address] 14 Jan, 2012 [facility] [address] [id number] [address] [place] [address], [place] [address] Jan, [facility] [address] [id number] [address] [place] [address], [place] [address] Jan, [facility] [address] [id number] [address] [place] [address], [place] [address] Jan, [facility] [address] [id number] [address] [place] [address], [place] [address] Jan, [facility] [address] [id number] [address] [place] [address], [place] [address] Jan, [facility] [address] [id number] [address] [place] [address], [place] [address] Jan, [facility] [address] [id number] [address] [place] [address], [place] [address] Jan, [facility] [address] [id number] [address] [place] [address], [place] [address] Jan, [facility] [address] [id number] [address] [place] [address], [place] [address] Jan, [facility] [address] [id number] [address] [place] [address], [place] [address] Jan, [facility] [address] [id number] [address] [place] [address], [place] [address] Jan, [facility] [address] [id number] [address] [place] [address], [place] [address] Jan, [facility] [address] [id number] [address] [place] [address], [place] [address] Dec, [facility] [address] [id number] [address] [place] [address], [place] [address] Dec, [facility] [address] [id number] [address] [place] [address], [place] [address] Nov, [facility] [address] [id number] [address] [place] [address], [place] [address] Nov, [facility] [address] [id number] [address] [place] [address], [place] [address] October, [facility] [address] [id number] [address] [place] [address], [place] [address] October, [facility] [address] [id number] [address] [place] [address], [place] [address] October, [facility] [address] [id number] [address] [place] [address], [place] [address] Sep, [facility] [address] [id number] [address] [place] [address], [place] [address] 18 Sep, 2011 [facility] [address] [id number] [address] [place] [address], [place] [address] 30 Aug, 2011 [facility] [address] [id number] [address] [place] [address], [place] [address] 28 Aug, 2011 [facility] [address] [id number] [address] [place] [address], [place] [address] 26 Aug, 2011 [facility] [address] [id number] [address] [place] [address], [place] [address] 19 Aug, 2011 [facility] [address] [id number] [address] [place] [address], [place] [address] 12 Aug, 2011 [facility] [address] [id number] [address] [place] [address], [place] [address] 14 Aug, 2011 [facility] [address] [id number] [address] [place] [address], [place] [address] 07 Aug, 2011 [facility] [address] [id number] [address] [place] [address], [place] [address] Jul, [facility] [address] [id number] [address] [place] [address], [place] [address] Jul, [facility] [address] [id number] [address] [place] [address], [place] [address] Jul, [facility] [address] [id number] [address] [place] [address], [place] [address] May, [facility] [address] [id number] [address] [place] [address], [place] [address] May, [facility] [address] [id number] [address] [place] [address], [place] [address] May, [facility] [address] [id number] [address] [place] [address], [place] [address] May, [facility] [address] [id number] [address] [place] [address], [place] [address] 13 May, 2011 [facility] [address] [id number] [address] [place] [address], [place] [address] 13 May, 2011 [facility] [address] [id number] [address] [place] [address], [place] [address] May, [facility] [address] [id number] [address] [place] [address], [place] [address] Mar, [facility] [address] [id number] [address] [place] [address], [place] [address] Mar, [facility] [address] [id number] [address] [place] [address], [place] [address] Mar, [facility] [address] [id number] [address] [place] [address], [place] [address] 15 Mar, 2011 [facility] [address] [id number] [address] [place] [address], [place] [address] Mar, [facility] [address] [id number] [address] [place] [address], [place] [address] Mar, [facility] [address] [id number] [address] [place] [address], [place] [address] Jan, [facility] [address] [id number] [address] [place] [address], [place] [address] 31 May, 2009 [facility] [address] [id number] [address] [place] [address], [place] [address] 16 May, 2009 [facility] [address] [id number] [address] [place] [address], [place] [address] May, [facility] [address] [id number] [address] [place] [address], [place] [address] May, [facility] [address] [id number] [address] [place] [address], [place] [address] May, [facility] [address] [id number] [address] [place] [address] May, [facility] [address] [facility] [id number] [address] [place] [address] Mar, [facility] [address] [facility] [id number] [address] [place] [address] Sep, IMMUNIZATIONS No Known Immunizations SOCIAL HISTORY Never Assessed REASON FOR VISIT PLAN OF CARE VITAL SIGNS Height 64 in 2014-05-13 Weight 121 lbs 2014-05-13 Temperature 97.6 degrees Fahrenheit 2014-05-13 Heart Rate 78 bpm 2014-05-13 Respiratory Rate 18 2014-05-13 Blood pressure systolic 110 mmHg 2014-05-13 Blood pressure diastolic 68 mmHg 2014-05-13 MEDICATIONS Unknown Medications RESULTS No Results PROCEDURES [...]
--- OUTSIDE RECORDS SUMMARY | 2019-12-30 23:37 | XMS REPORT ---
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 [id number] Jan, [facility] [address] [facility] [id number] [address] [place] [id number] Jan, Sore throat J02.9 ; Carpal t unnel syndrome, left upper limb G56.02 and Carpal tunnel syndrome, right upper limb G56.01 [facility] [address] [id number] [address] [place] [id number] Dec, [facility] [address] [id number] [address] [place] [id number] Dec, [facility] [address] [facility] [id number] [address] [place] [id number] Dec, [facility] [address] [id number] [address] [place] [id number] Dec, [facility] [address] [id number] [address] [place] [id number] Dec, Lumbago with sciatica, left side M54.42 [facility] [address] [id number] [address] [place] [id number] Dec, Anxiety F41.9 [facility] [address] [facility] [id number] [address] [place] [id number] Dec, Tremor R25.1 ; Back pain wit h right-sided radiculopathy M54.10 and Headache R51 [facility] [address] [id number] [address] [place] [id number] Dec, [facility] [address] [id number] [address] [place] [id number] Dec, [facility] [address] [id number] [address] [place] [id number] Dec, Lumbago with sciatica, left side M54.42 [facility] [address] [id number] [address] [place] [id number] Dec, Dizziness R42 [facility] [address] [id number] [address] [place] [id number] Nov, [facility] [address] [facility] [id number] [address] [place] [id number] Nov, Lumbago with sciatica, left side M54.42 and Lumbago with sciatica, right side M54.41 [facility] [address] [facility] [id number] [address] [place] [id number] Nov, Anxiety F41.9 [facility] [address] [id number] [address] [place] [id number] Nov, [facility] [address] [facility] [id number] [address] [place] [id number] Nov, Headache R51 [facility] [address] [id number] [address] [place] [id number] October, Encounter for Depo-Provera c ontraception Z30.42 [facility] [address] [id number] [address] [place] [id number] October, Anxiety F41.9 [facility] [address] [facility] [id number] [address] [place] [id number] October, Anxiety F41.9 [facility] [address] [id number] [address] [place] [id number] October, [facility] [address] [facility] [id number] [address] [place] [id number] October, Vaginal yeast infection B37. 3 [facility] [address] [facility] [id number] [address] [place] [id number] October, [facility] [address] [facility] [id number] [address] [place] [id number] October, Headache R51 [facility] [address] [id number] [address] [place] [id number] Sep, [facility] [address] [facility] [id number] [address] [place] [id number] Sep, [facility] [address] [facility] [id number] [address] [place] [id number] Sep, Headache R51 [facility] [address] [facility] [id number] [address] [place] [phone] Sep, [facility] [address] [facility] [id number] [address] [place] [phone] Sep, Headache R51 [facility] [address] [facility] [id number] [address] [place] [id number] 29 Aug, 2015 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 and Headache R51 [facility] [address] [facility] [id number] [address] [place] [id number] 24 Aug, 2015 [facility] [address] [facility] [id number] [address] [place] [id number] Aug, Headache R51 ; Forgetfulness R68.[address] scan, head R93.0 [facility] [address] [facility] [id number] [address] [place] [id number] 16 Aug, 2015 [facility] [address] [facility] [id number] [address] [place] [id number] 15 Aug, 2015 [place] [address] [place] [id number] [address] [place] [id number] 14 Aug, 2015 [place] [address] [id number] Aug, Headache R51 [place] [address] [place] [id number] [place] [id number] 08 Aug, 2015 Abnormal computed tomography angiography of head R93.0 [place] [address] [place] [id number] [place] [phone] 07 Aug, [address] of the head R93. 0 [place] [address] [address] Aug, Headache R51 ; Nausea R11.0 and Forgetfulness R68.89 [place] [address] [id number] Aug, Mental disor NOS oth dis F99 ; Unspecified mood [affective] disorder F39 and Anxiety disorder, unspecified F41.9 [place] [address] [id number] Aug, [place] [address] [id number] Aug, [place] [address] [place] [id number] [address] [place] [id number] Aug, Encounter for Depo-Provera c ontraception Z30.42 [place] [address] [place] [id number] [address] [place] [id number] Jul, [place] [address] [id number] Jul, Contusion of unspecified fin laura without damage to nail, subsequent encounter S60.00XD [place] [address] [place] [id number] [address] [place] [id number] May, [place] [address] [place] [id number] [place] [id number] May, [facility] [address] [id number] [address] [place] [id number] May, Dental examination Z01.20 [facility] [address] [facility] [id number] [address] [place] [id number] May, Hematuria R31.9 [facility] [address] [facility] [id number] [address] [place] [phone] May, [facility] [address] [facility] [id number] [address] [place] [id number] May, Generalized anxiety disorder F41.1 [facility] [address] [place] [id number] [address] [place] [id number] May, [facility] [address] [place] [id number] [address] [place] [id number] May, [facility] [address] [place] [id number] [address] [place] [id number] May, [facility] [address] [place] [id number] [address] [place] [id number] Mar, Upper respiratory tract infe ction, unspecified upper respiratory infection J06.9 ; Anaphylaxis, subsequent encounter T78.2XXD ; Encounter for Depo-Provera contraception Z30.42 and Encounter for surveillance of injectable contraceptive Z30.42 [facility] [address] [facility] [id number] [address] [place] [id number] Mar, [facility] [address] [facility] [id number] [address] [place] [id number] Mar, [facility] [address] [place] [id number] [address] [place] [id number] Mar, [facility] [address] [facility] [id number] [address] [place] [id number] Mar, [facility] [address] [place] [id number] [address] [place] [id number] Mar, [facility] [address] [id number] [address] [place] [phone] Jan, [facility] [address] [id number] [address] [place] [id number] Jan, [facility] [address] [id number] [address] [place] [id number] Jan, [facility] [address] [id number] [address] [place] [id number] Dec, [facility] [address] [id number] [address] [place] [id number] Dec, Dental examination V72.2 [facility] [address] [id number] [address] [place] [id number] Dec, [facility] [address] [id number] [address] [place] [id number] Nov, [facility] [address] [id number] [address] [place] [id number] Nov, [facility] [address] [id number] [address] [place] [phone] Nov, Abdominal pain 789.00 and Na usea and vomiting 787.01 [facility] [address] [id number] [address] [place] [id number] Nov, UTI (lower urinary tract inf ection) 599.0 and Abdominal pain 789.00 [facility] [address] [id number] [address] [place] [phone] October, [facility] [address] [id number] [address] [place] [id number] Sep, [facility] [address] [id number] [address] [place] [id number] Sep, [facility] [address] [id number] [address] [place] [id number] Aug, [facility] [address] [id number] [address] [place] [address], [place] [address] Aug, [facility] [address] [id number] [address] [place] [address], [place] [address] Aug, [facility] [address] [id number] [address] [place] [address], [place] [address] Aug, [facility] [address] [id number] [address] [place] [address], [place] [id number] Aug, [facility] [address] [id number] [address] [place] [address], [place] [id number] Aug, [facility] [address] [id number] [address] [place] [address], [place] [address] Aug, [facility] [address] [id number] [address] [place] [address], [place] [id number] Aug, [facility] [address] [id number] [address] [place] [address], [place] [id number] Jul, [facility] [address] [id number] [address] [place] [address], [place] [id number] Jul, [facility] [address] [id number] [address] [place] [address], [place] [address] Jul, [facility] [address] [id number] [address] [place] [address], [place] [address] Jul, [facility] [address] [id number] [address] [place] [address], [place] [address] Jul, [facility] [address] [id number] [address] [place] [address], [place] [address] Jul, [facility] [address] [id number] [address] [place] [address], [place] [address] Jul, [facility] [address] [id number] [address] [place] [address], [place] [address] Jul, [facility] [address] [id number] [address] [place] [address], [place] [address] Jul, [facility] [address] [id number] [address] [place] [address], [place] [address] Jul, [facility] [address] [id number] [address] [place] [address], [place] [address] Jul, [facility] [address] [id number] [address] [place] [address], [place] [address] Jul, [facility] [address] [id number] [address] [place] [address], [place] [address] May, [facility] [address] [id number] [address] [place] [address], [place] [address] May, [facility] [address] [id number] [address] [place] [address], [place] [address] May, [facility] [address] [id number] [address] [place] [address], [place] [address] May, [facility] [address] [id number] [address] [place] [address], [place] [address] May, [facility] [address] [id number] [address] [place] [address], [place] [address] May, [facility] [address] [id number] [address] [place] [address], [place] [address] May, [facility] [address] [id number] [address] [place] [address], [place] [address] May, [facility] [address] [id number] [address] [place] [address], [place] [address] May, [facility] [address] [id number] [address] [place] [address], [place] [address] May, [facility] [address] [id number] [address] [place] [address], [place] [address] May, [facility] [address] [id number] [address] [place] [address], [place] [address] May, [facility] [address] [id number] [address] [place] [address], [place] [address] 17 May, 2014 [facility] [address] [id number] [address] [place] [address], [place] [address] May, [facility] [address] [id number] [address] [place] [address], [place] [address] May, [facility] [address] [id number] [address] [place] [address], [place] [address] May, [facility] [address] [id number] [address] [place] [address], [place] [address] May, [facility] [address] [id number] [address] [place] [address], [place] [address] May, [facility] [address] [id number] [address] [place] [address], [place] [address] May, [facility] [address] [id number] [address] [place] [address], [place] [address] May, [facility] [address] [id number] [address] [place] [address], [place] [address] May, [facility] [address] [id number] [address] [place] [address], [place] [address] May, [facility] [address] [id number] [address] [place] [address], [place] [address] 15 May, 2014 [facility] [address] [id number] [address] [place] [address], [place] [address] 15 May, 2014 [facility] [address] [id number] [address] [place] [address], [place] [address] May, [facility] [address] [id number] [address] [place] [address], [place] [address] May, [facility] [address] [id number] [address] [place] [address], [place] [address] May, [facility] [address] [id number] [address] [place] [address], [place] [address] May, [facility] [address] [id number] [address] [place] [address], [place] [address] May, [facility] [address] [id number] [address] [place] [address], [place] [address] May, [facility] [address] [id number] [address] [place] [address], [place] [address] May, [facility] [address] [id number] [address] [place] [address], [place] [address] May, [facility] [address] [id number] [address] [place] [address], [place] [address] May, [facility] [address] [id number] [address] [place] [address], [place] [address] May, [facility] [address] [id number] [address] [place] [address], [place] [address] May, [facility] [address] [id number] [address] [place] [address], [place] [address] Mar, [facility] [address] [id number] [address] [place] [address], [place] [address] Mar, [facility] [address] [id number] [address] [place] [address] Mar, [facility] [address] [id number] [address] [place] [address] Mar, [facility] [address] [id number] [address] [place] [address] Mar, [facility] [address] [id number] [address] [place] [address], [place] [address] Mar, [facility] [address] [id number] [address] [place] [address], [place] [address] Mar, [facility] [address] [id number] [address] [place] [address] Mar, [facility] [address] [id number] [address] [place] [address] Mar, 2013 [facility] [address] [id number] [address] [place] [address], [place] [address] Mar, 2013 [facility] [address] [id number] [address] [place] [address], [place] [address] Mar, [facility] [address] [id number] [address] [place] [address], [place] [address] Mar, [facility] [address] [id number] [address] [place] [address], [place] [address] Mar, [facility] [address] [id number] [address] [place] [address], [place] [address] Mar, [facility] [address] [id number] [address] [place] [address], [place] [address] Jan, [facility] [address] [id number] [address] [place] [address], [place] [address] Jan, [facility] [address] [id number] [address] [place] [address], [place] [address] Jan, [facility] [address] [id number] [address] [place] [address], [place] [address] Jan, [facility] [address] [id number] [address] [place] [address], [place] [address] Jan, [facility] [address] [id number] [address] [place] [address], [place] [address] Jan, [facility] [address] [id number] [address] [place] [address], [place] [address] Jan, [facility] [address] [id number] [address] [place] [address], [place] [address] Jan, [facility] [address] [id number] [address] [place] [address], [place] [address] Jan, [facility] [address] [id number] [address] [place] [address], [place] [address] Dec, [facility] [address] [id number] [facility] [place] [address] Dec, [facility] [address] [id number] [facility] [place] [address] Dec, [facility] [address] [id number] [facility] [place] [address] Dec, [facility] [address] [id number] [facility] [place] [address] Dec, [facility] [address] [id number] [facility] [place] [address] Dec, [facility] [address] [id number] [address] [place] [address], [place] [address] Dec, [facility] [address] [id number] [address] [place] [address], [place] [address] Dec, [facility] [address] [id number] [address] [place] [address], [place] [address] Dec, [facility] [address] [id number] [address] [place] [address], [place] [address] October, [facility] [address] [id number] [address] [place] [address], [place] [address] October, [facility] [address] [id number] [address] [place] [address], [place] [address] Sep, [facility] [address] [id number] [address] [place] [address], [place] [address] 15 Sep, 2013 [facility] [address] [id number] [address] [place] [address], [place] [address] Aug, [facility] [address] [id number] [address] [place] [address], [place] [address] Aug, [facility] [address] [id number] [address] [place] [address], [place] [address] Aug, [facility] [address] [id number] [address] [place] [address], [place] [address] Aug, [facility] [address] [id number] [address] [place] [address], [place] [address] Aug, [facility] [address] [id number] [address] [place] [address], [place] [address] 17 Aug, 2013 [facility] [address] [id number] [address] [place] [address], [place] [address] 14 Aug, 2013 [facility] [address] [id number] [address] [place] [address], [place] [address] Aug, [facility] [address] [id number] [address] [place] [address], [place] [address] Aug, [facility] [address] [id number] [address] [place] [address], [place] [address] Aug, [facility] [address] [id number] [address] [place] [address], [place] [address] Aug, [facility] [address] [id number] [address] [place] [address], [place] [address] Jul, [facility] [address] [id number] [address] [place] [address], [place] [address] Jul, [facility] [address] [id number] [address] [place] [address], [place] [address] May, [facility] [address] [id number] [address] [place] [address], [place] [address] May, [facility] [address] [id number] [address] [place] [address], [place] [address] May, [facility] [address] [id number] [address] [place] [address], [place] [address] May, [facility] [address] [id number] [address] [place] [address], [place] [address] May, [facility] [address] [id number] [address] [place] [address], [place] [address] May, [facility] [address] [id number] [address] [place] [address], [place] [address] May, [facility] [address] [id number] [address] [place] [address], [place] [address] May, [facility] [address] [id number] [address] [place] [address], [place] [address] May, [facility] [address] [id number] [address] [place] [address], [place] [address] May, [facility] [address] [id number] [address] [place] [address], [place] [address] May, [facility] [address] [id number] [address] [place] [address], [place] [address] May, [facility] [address] [id number] [address] [place] [address], [place] [address] May, [facility] [address] [id number] [address] [place] [address], [place] [address] May, [facility] [address] [id number] [address] [place] [address], [place] [address] May, [facility] [address] [id number] [address] [place] [address], [place] [address] May, [facility] [address] [id number] [address] [place] [address], [place] [address] 18 May, 2013 [facility] [address] [id number] [address] [place] [address], [place] [address] 18 May, 2013 [facility] [address] [id number] [address] [place] [address], [place] [address] 16 May, 2013 [facility] [address] [id number] [address] [place] [address], [place] [address] 16 May, 2013 [facility] [address] [id number] [address] [place] [address], [place] [address] 11 May, 2013 [facility] [address] [id number] [address] [place] [address], [place] [address] May, [facility] [address] [id number] [address] [place] [address], [place] [address] May, [facility] [address] [id number] [address] [place] [address], [place] [address] May, [facility] [address] [id number] [address] [place] [address], [place] [address] May, [facility] [address] [id number] [address] [place] [address], [place] [address] May, [facility] [address] [id number] [address] [place] [address], [place] [address] May, [facility] [address] [id number] [address] [place] [address], [place] [address] May, [facility] [address] [id number] [address] [place] [address], [place] [address] May, [facility] [address] [id number] [address] [place] [address] May, [facility] [address] [id number] [address] [place] [address] Mar, [facility] [address] [id number] [address] [place] [address] Mar, [facility] [address] [id number] [address] [place] [address] Mar, [facility] [address] [id number] [address] [place] [address] Mar, [facility] [address] [id number] [address] [place] [address] 30 Mar, 2013 [facility] [address] [id number] [address] [place] [address] Mar, [facility] [address] [id number] [address] [place] [address] Mar, [facility] [address] [id number] [address] [place] [address], [place] [address] 29 Mar, 2013 [facility] [address] [id number] [address] [place] [address], [place] [address] 29 Mar, 2013 [facility] [address] [id number] [address] [place] [address], [place] [address] Mar, [facility] [address] [id number] [address] [place] [address], [place] [address] Mar, [facility] [address] [id number] [address] [place] [address], [place] [address] 24 Mar, 2013 [facility] [address] [id number] [address] [place] [address], [place] [address] 24 Mar, 2013 [facility] [address] [id number] [address] [place] [address], [place] [address] 23 Mar, 2013 [facility] [address] [id number] [address] [place] [address], [place] [address] 22 Mar, 2013 [facility] [address] [id number] [address] [place] [address], [place] [address] Mar, [facility] [address] [id number] [address] [place] [address], [place] [address] 21 Mar, 2013 [facility] [address] [id number] [address] [place] [address], [place] [address] 18 Mar, 2013 [facility] [address] [id number] [address] [place] [address], [place] [address] 18 Mar, 2013 [facility] [address] [id number] [address] [place] [address], [place] [address] 18 Mar, 2012 [facility] [address] [id number] [address] [place] [address], [place] [address] 18 Mar, 2013 [facility] [address] [id number] [address] [place] [address], [place] [address] 14 Mar, 2013 [facility] [address] [id number] [address] [place] [address] 14 Mar, 2013 [facility] [address] [id number] [address] [place] [address], [place] [address] 10 Mar, 2013 [facility] [address] [id number] [address] [place] [address], [place] [address] 18 Mar, 2013 [facility] [address] [id number] [address] [place] [address], [place] [address] 12 Mar, 2013 [facility] [address] [id number] [address] [place] [address], [place] [address] Mar, [facility] [address] [id number] [address] [place] [address], [place] [address] Jan, [facility] [address] [id number] [address] [place] [address], [place] [address] October, [facility] [address] [id number] [address] [place] [address], [place] [address] Sep, [facility] [address] [id number] [address] [place] [address], [place] [address] Sep, [facility] [address] [id number] [address] [place] [address], [place] [address] Aug, [facility] [address] [id number] [address] [place] [address], [place] [address] Aug, [facility] [address] [id number] [address] [place] [address], [place] [address] Aug, [facility] [address] [id number] [address] [place] [address], [place] [address] Jul, [facility] [address] [id number] [address] [place] [address], [place] [address] May, [facility] [address] [id number] [address] [place] [address], [place] [address] May, [facility] [address] [id number] [address] [place] [address], [place] [address] May, [facility] [address] [id number] [address] [place] [address] 18 May, 2012 [facility] [address] [id number] [address] [place] [address], [place] [address] 19 Mar, 2012 [facility] [address] [id number] [address] [place] [address], [place] [address] 19 Mar, 2012 [facility] [address] [id number] [address] [place] [address], [place] [address] 16 Mar, 2012 [facility] [address] [id number] [address] [place] [address], [place] [address] 25 Mar, 2012 [facility] [address] [id number] [address] [place] [address], [place] [address] 19 Mar, 2012 [facility] [address] [id number] [address] [place] [address], [place] [address] 13 Mar, 2012 [facility] [address] [id number] [address] [place] [address], [place] [address] 07 Mar, 2012 [facility] [address] [id number] [address] [place] [address], [place] [address] 30 Jan, 2012 [facility] [address] [id number] [address] [place] [address], [place] [address] Jan, [facility] [address] [id number] [address] [place] [address], [place] [address] Jan, [facility] [address] [id number] [address] [place] [address], [place] [address] 14 Jan, 2012 [facility] [address] [id number] [address] [place] [address], [place] [address] Jan, [facility] [address] [id number] [address] [place] [address], [place] [address] Jan, [facility] [address] [id number] [address] [place] [address], [place] [address] Jan, [facility] [address] [id number] [address] [place] [address], [place] [address] Jan, [facility] [address] [id number] [address] [place] [address], [place] [address] Jan, [facility] [address] [id number] [address] [place] [address], [place] [address] Jan, [facility] [address] [id number] [address] [place] [address], [place] [address] Jan, [facility] [address] [id number] [address] [place] [address], [place] [address] Jan, [facility] [address] [id number] [address] [place] [address], [place] [address] Jan, [facility] [address] [id number] [address] [place] [address], [place] [address] Jan, [facility] [address] [id number] [address] [place] [address], [place] [address] Jan, [facility] [address] [id number] [address] [place] [address], [place] [address] Jan, [facility] [address] [id number] [address] [place] [address], [place] [address] Dec, [facility] [address] [id number] [address] [place] [address], [place] [address] Dec, [facility] [address] [id number] [address] [place] [address], [place] [address] Nov, [facility] [address] [id number] [address] [place] [address], [place] [address] Nov, [facility] [address] [id number] [address] [place] [address], [place] [address] October, [facility] [address] [id number] [address] [place] [address], [place] [address] October, [facility] [address] [id number] [address] [place] [address], [place] [address] October, [facility] [address] [id number] [address] [place] [address], [place] [address] Sep, [facility] [address] [id number] [address] [place] [address], [place] [address] 18 Sep, 2011 [facility] [address] [id number] [address] [place] [address], [place] [address] 30 Aug, 2011 [facility] [address] [id number] [address] [place] [address], [place] [address] 28 Aug, 2011 [facility] [address] [id number] [address] [place] [address], [place] [address] 26 Aug, 2011 [facility] [address] [id number] [address] [place] [address], [place] [address] 19 Aug, 2011 [facility] [address] [id number] [address] [place] [address], [place] [address] 12 Aug, 2011 [facility] [address] [id number] [address] [place] [address], [place] [address] 14 Aug, 2011 [facility] [address] [id number] [address] [place] [address], [place] [address] 07 Aug, 2011 [facility] [address] [id number] [address] [place] [address], [place] [address] Jul, [facility] [address] [id number] [address] [place] [address], [place] [address] Jul, [facility] [address] [id number] [address] [place] [address], [place] [address] Jul, [facility] [address] [id number] [address] [place] [address], [place] [address] May, [facility] [address] [id number] [address] [place] [address], [place] [address] May, [facility] [address] [id number] [address] [place] [address], [place] [address] May, [facility] [address] [id number] [address] [place] [address], [place] [address] May, [facility] [address] [id number] [address] [place] [address], [place] [address] 13 May, 2011 [facility] [address] [id number] [address] [place] [address], [place] [address] 13 May, 2011 [facility] [address] [id number] [address] [place] [address], [place] [address] May, [facility] [address] [id number] [address] [place] [address], [place] [address] Mar, [facility] [address] [id number] [address] [place] [address], [place] [address] Mar, [facility] [address] [id number] [address] [place] [address], [place] [address] Mar, [facility] [address] [id number] [address] [place] [address], [place] [address] 15 Mar, 2011 [facility] [address] [id number] [address] [place] [address], [place] [address] Mar, [facility] [address] [id number] [address] [place] [address], [place] [id number] Mar, [facility] [address] [id number] [address] [place] [address], [place] [id number] Jan, [facility] [address] [id number] [address] [place] [address], [place] [id number] 31 May, 2009 [facility] [address] [id number] [address] [place] [address], [place] [id number] 16 May, 2009 [facility] [address] [id number] [address] [place] [address], [place] [id number] May, [facility] [address] [id number] [address] [place] [address], [place] [id number] May, [facility] [address] [id number] [address] [place] [address], [place] [id number] May, [facility] [address] [id number] [address] [place] [phone] May, [facility] [address] [facility] [id number] [address] [place] [id number] Mar, [facility] [address] [facility] [id number] [address] [place] [id number] Sep, IMMUNIZATIONS No Known Immunizations SOCIAL HISTORY Never Assessed REASON FOR VISIT PLAN OF CARE VITAL SIGNS MEDICATIONS Unknown Medications RESULTS No Results PROCEDURES Procedure Date Ordered Result Body Site ASSAY OF C-PEPTIDE Jun 21, 2014 ASSAY OF PROINSULIN Jun 21, 2014 ASSAY OF INSULIN Jun 21, 2014 ASSAY, GLUCOSE, BLOOD QUANT Jun 21, 2014 ACETONE ASSAY Jun 21, 2014 VENIPUNCT, ROUTINE* Jun 21, 2014 INSTRUCTIONS MEDICATIONS ADMINISTERED No Known Medications MEDICAL [...]
--- OUTSIDE RECORDS SUMMARY | 2019-12-30 23:38 | XMS REPORT ---
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 [address] [id number] [address] [place] [id number] Jan, [facility] [address] [id number] [address] [place] [phone] Jan, [facility] [address] [id number] [address] [place] [phone] Jan, Sore throat J02.9 ; Carpal t unnel syndrome, left upper limb G56.02 and Carpal tunnel syndrome, right upper limb G56.01 [facility] [address] [id number] [address] [place] [phone] Dec, [facility] [address] [id number] [address] [place] [id number] Dec, [facility] [address] [id number] [address] [place] [phone] Dec, [facility] [address] [id number] [address] [place] [id number] Dec, [facility] [address] [id number] [address] [place] [id number] Dec, Lumbago with sciatica, left side M54.42 [facility] [address] [id number] [address] [place] [id number] Dec, Anxiety F41.9 [facility] [address] [facility] [id number] [address] [place] [id number] Dec, Tremor R25.1 ; Back pain wit h right-sided radiculopathy M54.10 and Headache R51 [facility] [address] [facility] [id number] [address] [place] [phone] Dec, [facility] [address] [id number] [address] [place] [phone] Dec, [facility] [address] [id number] [address] [place] [phone] Dec, Lumbago with sciatica, left side M54.42 [facility] [address] [facility] [id number] [address] [place] [phone] Dec, Dizziness R42 [facility] [address] [id number] [address] [place] [phone] Nov, [facility] [address] [id number] [address] [place] [phone] Nov, Lumbago with sciatica, left side M54.42 and Lumbago with sciatica, right side M54.41 [facility] [address] [facility] [id number] [address] [place] [phone] Nov, Anxiety F41.9 [facility] [address] [facility] [id number] [address] [place] [phone] Nov, [facility] [address] [facility] [id number] [address] [place] [phone] Nov, Headache R51 [facility] [address] [facility] [id number] [address] [place] [phone] October, Encounter for Depo-Provera c ontraception Z30.42 [facility] [address] [facility] [id number] [address] [place] [phone] October, Anxiety F41.9 [facility] [address] [facility] [id number] [address] [place] [phone] October, Anxiety F41.9 [facility] [address] [facility] [id number] [address] [place] [phone] October, [facility] [address] [facility] [id number] [address] [place] [id number] October, Vaginal yeast infection B37. 3 [facility] [address] [id number] [address] [place] [id number] October, [facility] [address] [facility] [id number] [address] [place] [id number] October, Headache R51 [facility] [address] [facility] [id number] [address] [place] [phone] Sep, [facility] [address] [facility] [id number] [place] [phone] Sep, [facility] [address] [facility] [id number] [address] [place] [phone] Sep, Headache R51 [facility] [address] [facility] [id number] [place] [phone] Sep, [facility] [address] [place] [id number] [place] [phone] Sep, Headache R51 [facility] [address] [facility] [id number] [address] [place] [id number] 29 Aug, 2015 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 and Headache R51 [facility] [address] [facility] [id number] [address] [place] [id number] 24 Aug, 2015 [facility] [address] [facility] [id number] [address] [place] [phone] Aug, Headache R51 ; Forgetfulness R68.[address] scan, head R93.0 [facility] [address] [facility] [id number] [address] [place] [id number] 16 Aug, 2015 [facility] [address] [facility] [id number] [address] [place] [phone] 15 Aug, 2015 [facility] [address] [facility] [id number] [address] [place] [id number] 14 Aug, 2015 [facility] [address] [facility] [id number] [address] [place] [id number] 11 Aug, 2015 Headache R51 [facility] [address] [place] [id number] [address] [place] [phone] 08 Aug, 2015 Abnormal computed tomography angiography of head R93.0 [place] [address] [address] 07 Aug, [address] of the head R93. 0 [place] [address] [address] Aug, Headache R51 ; Nausea R11.0 and Forgetfulness R68.89 [place] [address] [address] Aug, Mental disor NOS oth dis F99 ; Unspecified mood [affective] disorder F39 and Anxiety disorder, unspecified F41.9 [place] [address] [address] Aug, [place] [address] [address] Aug, [place] [address] [address] Aug, Encounter for Depo-Provera c ontraception Z30.42 [place] [address] [place] [id number] [address] [place] [phone] Jul, [place] [address] [id number] Jul, Contusion of unspecified fin laura without damage to nail, subsequent encounter S60.00XD [place] [address] [place] [id number] [address] [place] [phone] May, [place] [address] [address] May, [facility] [address] [place] [id number] [address] [place] [id number] May, Dental examination Z01.20 [place] [address] [place] [id number] [address] [place] [phone] May, Hematuria R31.9 [facility] [address] [facility] [id number] [address] [place] [phone] May, [facility] [address] [facility] [id number] [address] [place] [phone] May, Generalized anxiety disorder F41.1 [facility] [address] [facility] [id number] [address] [place] [phone] May, [facility] [address] [facility] [id number] [address] [place] [address] May, [facility] [address] [place] [id number] [address] [place] [phone] May, [facility] [address] [place] [id number] [address] [place] [id number] Mar, Upper respiratory tract infe ction, unspecified upper respiratory infection J06.9 ; Anaphylaxis, subsequent encounter T78.2XXD ; Encounter for Depo-Provera contraception Z30.42 and Encounter for surveillance of injectable contraceptive Z30.42 [facility] [address] [place] [id number] [address] [place] [phone] Mar, [facility] [address] [facility] [id number] [address] [place] [phone] Mar, [facility] [address] [place] [id number] [address] [place] [id number] Mar, [facility] [address] [facility] [id number] [address] [place] [phone] Mar, [facility] [address] [facility] [id number] [address] [place] [phone] Mar, [facility] [address] [facility] [id number] [address] [place] [phone] Jan, [facility] [address] [facility] [id number] [address] [place] [phone] Jan, [facility] [address] [id number] [address] [place] [phone] Jan, [facility] [address] [id number] [address] [place] [phone] Dec, [facility] [address] [id number] [address] [place] [id number] Dec, Dental examination V72.2 [facility] [address] [id number] [address] [place] [id number] Dec, [facility] [address] [id number] [address] [place] [phone] Nov, [facility] [address] [id number] [address] [place] [phone] Nov, [facility] [address] [id number] [address] [place] [id number] Nov, Abdominal pain 789.00 and Na usea and vomiting 787.01 [facility] [address] [id number] [address] [place] [phone] Nov, UTI (lower urinary tract inf ection) 599.0 and Abdominal pain 789.00 [facility] [address] [id number] [address] [place] [id number] October, [facility] [address] [id number] [address] [place] [phone] Sep, [facility] [address] [id number] [address] [place] [id number] Sep, [facility] [address] [id number] [address] [place] [phone] Aug, [facility] [address] [id number] [address] [place] [id number] Aug, [facility] [address] [id number] [address] [place] [phone] Aug, [facility] [address] [id number] [address] [place] [phone] Aug, [facility] [address] [id number] [address] [place] [address], [place] [address] Aug, [facility] [address] [id number] [address] [place] [address], [place] [address] Aug, [facility] [address] [id number] [address] [place] [address], [place] [address] Aug, [facility] [address] [id number] [address] [place] [address], [place] [address] Aug, [facility] [address] [id number] [address] [place] [address], [place] [address] Jul, [facility] [address] [id number] [address] [place] [address], [place] [address] Jul, [facility] [address] [id number] [address] [place] [address], [place] [address] Jul, [facility] [address] [id number] [address] [place] [address], [place] [address] Jul, [facility] [address] [id number] [address] [place] [address], [place] [address] Jul, [facility] [address] [id number] [address] [place] [address], [place] [address] Jul, [facility] [address] [id number] [address] [place] [address], [place] [address] Jul, [facility] [address] [id number] [address] [place] [address], [place] [address] Jul, [facility] [address] [id number] [address] [place] [address], [place] [address] Jul, [facility] [address] [id number] [address] [place] [address], [place] [address] Jul, [facility] [address] [id number] [address] [place] [address], [place] [address] Jul, [facility] [address] [id number] [address] [place] [address], [place] [address] Jul, [facility] [address] [id number] [address] [place] [address], [place] [address] May, [facility] [address] [id number] [address] [place] [address], [place] [address] May, [facility] [address] [id number] [address] [place] [address], [place] [address] May, [facility] [address] [id number] [address] [place] [address], [place] [address] May, [facility] [address] [id number] [address] [place] [address], [place] [address] May, [facility] [address] [id number] [address] [place] [address], [place] [address] May, [facility] [address] [id number] [address] [place] [address], [place] [address] May, [facility] [address] [id number] [address] [place] [address], [place] [address] May, [facility] [address] [id number] [address] [place] [address], [place] [address] May, [facility] [address] [id number] [address] [place] [address], [place] [address] May, [facility] [address] [id number] [address] [place] [address], [place] [address] May, [facility] [address] [id number] [address] [place] [address], [place] [address] May, [facility] [address] [id number] [address] [place] [address], [place] [address] May, [facility] [address] [id number] [address] [place] [address], [place] [address] May, [facility] [address] [id number] [address] [place] [address], [place] [address] May, [facility] [address] [id number] [address] [place] [address], [place] [address] May, [facility] [address] [id number] [address] [place] [address], [place] [address] May, [facility] [address] [id number] [address] [place] [address], [place] [address] May, [facility] [address] [id number] [address] [place] [address], [place] [address] May, [facility] [address] [id number] [address] [place] [address], [place] [address] May, [facility] [address] [id number] [address] [place] [address], [place] [address] May, [facility] [address] [id number] [address] [place] [address], [place] [address] May, [facility] [address] [id number] [address] [place] [address], [place] [address] May, [facility] [address] [id number] [address] [place] [address], [place] [address] May, [facility] [address] [id number] [address] [place] [address], [place] [address] May, [facility] [address] [id number] [address] [place] [address], [place] [address] May, [facility] [address] [id number] [address] [place] [address], [place] [address] May, [facility] [address] [id number] [address] [place] [address], [place] [address] May, [facility] [address] [id number] [address] [place] [address], [place] [address] May, [facility] [address] [id number] [address] [place] [address], [place] [address] May, [facility] [facility] [address] [id number] [address] [place] [address], [place] [address] 08 May, 2014 [facility] [address] [id number] [address] [place] [address], [place] [address] May, [facility] [address] [id number] [address] [place] [address], [place] [address] May, [facility] [address] [id number] [address] [place] [address], [place] [address] May, [facility] [address] [id number] [address] [place] [address], [place] [address] May, [facility] [address] [id number] [address] [place] [address], [place] [address] Mar, [facility] [address] [id number] [address] [place] [address], [place] [address] Mar, [facility] [address] [id number] [address] [place] [address], [place] [address] Mar, [facility] [address] [id number] [address] [place] [address], [place] [address] Mar, [facility] [address] [id number] [address] [place] [address], [place] [address] Mar, [facility] [address] [id number] [address] [place] [address], [place] [address] Mar, [facility] [address] [id number] [address] [place] [address], [place] [address] Mar, [facility] [address] [id number] [address] [place] [address], [place] [address] Mar, [facility] [address] [id number] [address] [place] [address], [place] [address] Mar, [facility] [address] [id number] [address] [place] [address], [place] [address] Mar, [facility] [address] [id number] [address] [place] [address], [place] [address] Mar, [facility] [address] [id number] [address] [place] [address], [place] [address] Mar, [facility] [address] [id number] [address] [place] [address], [place] [address] Mar, [facility] [address] [id number] [address] [place] [address], [place] [address] Mar, [facility] [address] [id number] [address] [place] [address], [place] [address] Jan, [facility] [address] [id number] [address] [place] [address], [place] [address] Jan, [facility] [address] [id number] [address] [place] [address], [place] [address] Jan, [facility] [address] [id number] [address] [place] [address], [place] [address] Jan, [facility] [address] [id number] [address] [place] [address], [place] [address] Jan, [facility] [address] [id number] [address] [place] [address], [place] [address] Jan, [facility] [address] [id number] [address] [place] [address], [place] [address] Jan, [facility] [address] [id number] [address] [place] [address], [place] [address] Jan, [facility] [address] [id number] [address] [place] [address], [place] [address] Jan, [facility] [address] [id number] [address] [place] [address], [place] [address] Dec, [facility] [address] [id number] [address] [place] [address], [place] [address] Dec, [facility] [address] [id number] [address] [place] [address], [place] [address] Dec, [facility] [address] [id number] [address] [place] [address], [place] [address] Dec, [facility] [address] [id number] [address] [place] [address], [place] [address] Dec, [facility] [address] [id number] [address] [place] [address], [place] [address] Dec, [facility] [address] [id number] [address] [place] [address], [place] [address] Dec, [facility] [address] [id number] [address] [place] [address], [place] [address] Dec, [facility] [address] [id number] [address] [place] [address], [place] [address] Dec, [facility] [address] [id number] [address] [place] [address], [place] [address] October, [facility] [address] [id number] [address] [place] [address], [place] [address] October, [facility] [address] [id number] [address] [place] [address], [place] [address] Sep, [facility] [address] [id number] [address] [place] [address], [place] [address] Sep, [facility] [address] [id number] [address] [place] [address], [place] [address] Aug, [facility] [address] [id number] [address] [place] [address], [place] [address] Aug, [facility] [address] [id number] [address] [place] [address], [place] [address] Aug, [facility] [address] [id number] [address] [place] [address], [place] [address] Aug, [facility] [address] [id number] [address] [place] [address], [place] [address] Aug, [facility] [address] [id number] [address] [place] [address], [place] [address] Aug, [facility] [address] [id number] [address] [place] [address], [place] [address] 14 Aug, 2013 [facility] [address] [id number] [address] [place] [address], [place] [address] Aug, [facility] [address] [id number] [address] [place] [address], [place] [address] Aug, [facility] [address] [id number] [address] [place] [address], [place] [address] Aug, [facility] [address] [id number] [address] [place] [address], [place] [address] Aug, [facility] [address] [id number] [address] [place] [address], [place] [address] Jul, [facility] [address] [id number] [address] [place] [address], [place] [address] Jul, [facility] [address] [id number] [address] [place] [address], [place] [address] May, [facility] [address] [id number] [address] [place] [address], [place] [address] May, [facility] [address] [id number] [address] [place] [address], [place] [address] May, [facility] [address] [id number] [address] [place] [address], [place] [address] May, [facility] [address] [id number] [address] [place] [address], [place] [address] May, [facility] [address] [id number] [address] [place] [address], [place] [address] May, [facility] [address] [id number] [address] [place] [address], [place] [address] May, [facility] [address] [id number] [address] [place] [address], [place] [address] May, [facility] [address] [id number] [address] [place] [address] May, [facility] [address] [id number] [address] [place] [address], [place] [address] May, [facility] [address] [id number] [address] [place] [address], [place] [address] May, [facility] [address] [id number] [address] [place] [address], [place] [address] May, [facility] [address] [id number] [address] [place] [address], [place] [address] May, [facility] [address] [id number] [address] [place] [address], [place] [address] May, [facility] [address] [id number] [address] [place] [address], [place] [address] May, [facility] [address] [id number] [address] [place] [address], [place] [address] May, [facility] [address] [id number] [address] [place] [address], [place] [address] 18 May, 2013 [facility] [address] [id number] [address] [place] [address], [place] [address] 18 May, 2013 [facility] [address] [id number] [address] [place] [address], [place] [address] 16 May, 2013 [facility] [address] [id number] [address] [place] [address], [place] [address] 16 May, 2013 [facility] [address] [id number] [address] [place] [address] 11 May, 2013 [facility] [address] [id number] [address] [place] [address], [place] [address] 11 May, 2013 [facility] [address] [id number] [address] [place] [address], [place] [address] 11 May, 2013 [facility] [address] [id number] [address] [place] [address], [place] [address] 11 May, 2013 [facility] [address] [id number] [address] [place] [address], [place] [address] 09 May, 2013 [facility] [address] [id number] [address] [place] [address], [place] [address] May, [facility] [address] [id number] [address] [place] [address], [place] [address] May, [facility] [address] [id number] [address] [place] [address], [place] [address] 07 May, 2013 [facility] [address] [id number] [address] [place] [address], [place] [address] May, [facility] [address] [id number] [address] [place] [address], [place] [address] May, [facility] [address] [id number] [address] [place] [address], [place] [address] Mar, [facility] [address] [id number] [address] [place] [address], [place] [address] Mar, [facility] [address] [id number] [address] [place] [address], [place] [address] Mar, [facility] [address] [id number] [address] [place] [address], [place] [address] Mar, [facility] [address] [id number] [address] [place] [address], [place] [address] 30 Mar, 2013 [facility] [address] [id number] [address] [place] [address], [place] [address] 29 Mar, 2013 [facility] [address] [id number] [address] [place] [address], [place] [address] 29 Mar, 2013 [facility] [address] [id number] [address] [place] [address], [place] [address] Mar, [facility] [address] [id number] [address] [place] [address], [place] [address] 29 Mar, 2013 [facility] [address] [id number] [address] [place] [address], [place] [address] 28 Mar, 2013 [facility] [address] [id number] [address] [place] [address], [place] [address] 28 Mar, 2013 [facility] [address] [id number] [address] [place] [address], [place] [address] 24 Mar, 2013 [facility] [address] [id number] [address] [place] [address], [place] [address] 24 Mar, 2013 [facility] [address] [id number] [address] [place] [address], [place] [address] 23 Mar, 2013 [facility] [address] [id number] [address] [place] [address], [place] [address] 22 Mar, 2013 [facility] [address] [id number] [address] [place] [address], [place] [address] Mar, [facility] [address] [id number] [address] [place] [address], [place] [address] Mar, [facility] [address] [id number] [address] [place] [address] 18 Mar, 2013 [facility] [address] [id number] [address] [place] [address], [place] [address] 18 Mar, 2013 [facility] [address] [id number] [address] [place] [address] 18 Mar, 2013 [facility] [address] [id number] [address] [place] [address] 18 Mar, 2013 [facility] [address] [id number] [address] [place] [address] 14 Mar, 2013 [facility] [address] [id number] [address] [place] [address], [place] [address] 14 Mar, 2013 [facility] [address] [id number] [address] [place] [address] 10 Mar, 2013 [facility] [address] [id number] [address] [place] [address] 18 Mar, 2013 [facility] [address] [id number] [address] [place] [address], [place] [address] 12 Mar, 2013 [facility] [address] [id number] [address] [place] [address], [place] [address] Mar, [facility] [address] [id number] [address] [place] [address], [place] [address] Jan, [facility] [address] [id number] [address] [place] [address], [place] [address] October, [facility] [address] [id number] [address] [place] [address], [place] [address] Sep, [facility] [address] [id number] [address] [place] [address], [place] [address] Sep, [facility] [address] [id number] [address] [place] [address], [place] [address] 07 Aug, 2012 [facility] [address] [id number] [address] [place] [address], [place] [address] 06 Aug, 2012 [facility] [address] [id number] [address] [place] [address], [place] [address] 04 Aug, 2012 [facility] [address] [id number] [address] [place] [address], [place] [address] Jul, [facility] [address] [id number] [address] [place] [address], [place] [address] May, [facility] [address] [id number] [address] [place] [address], [place] [address] May, [facility] [address] [id number] [address] [place] [address], [place] [address] May, [facility] [address] [id number] [address] [place] [address], [place] [address] May, [facility] [address] [id number] [address] [place] [address], [place] [address] Mar, [facility] [address] [id number] [address] [place] [address], [place] [address] Mar, [facility] [address] [id number] [address] [place] [address], [place] [address] 16 Mar, 2012 [facility] [address] [id number] [address] [place] [address], [place] [address] 25 Mar, 2012 [facility] [address] [id number] [address] [place] [address], [place] [address] 19 Mar, 2012 [facility] [address] [id number] [address] [place] [address], [place] [address] 13 Mar, 2012 [facility] [address] [id number] [address] [place] [address], [place] [address] 07 Mar, 2012 [facility] [address] [id number] [address] [place] [address], [place] [address] 30 Jan, 2012 [facility] [address] [id number] [address] [place] [address], [place] [address] Jan, [facility] [address] [id number] [address] [place] [address], [place] [address] Jan, [facility] [address] [id number] [address] [place] [address], [place] [address] Jan, [facility] [address] [id number] [address] [place] [address], [place] [address] Jan, [facility] [address] [id number] [address] [place] [address], [place] [address] Jan, [facility] [address] [id number] [address] [place] [address], [place] [address] Jan, [facility] [address] [id number] [address] [place] [address], [place] [address] Jan, [facility] [address] [id number] [address] [place] [address], [place] [address] Jan, [facility] [address] [id number] [address] [place] [address], [place] [address] Jan, [facility] [address] [id number] [address] [place] [address], [place] [address] Jan, [facility] [address] [id number] [address] [place] [address], [place] [address] Jan, [facility] [address] [id number] [address] [place] [address], [place] [address] Jan, [facility] [address] [id number] [address] [place] [address], [place] [address] Jan, [facility] [address] [id number] [address] [place] [address], [place] [address] Jan, [facility] [address] [id number] [address] [place] [address], [place] [address] Jan, [facility] [address] [id number] [address] [place] [address], [place] [address] Dec, [facility] [address] [id number] [address] [place] [address], [place] [address] Dec, [facility] [address] [id number] [address] [place] [address], [place] [address] Nov, [facility] [address] [id number] [address] [place] [address], [place] [address] Nov, [facility] [address] [id number] [address] [place] [address], [place] [address] October, [facility] [address] [id number] [address] [place] [address], [place] [address] October, [facility] [address] [id number] [address] [place] [address], [place] [address] October, [facility] [address] [id number] [address] [place] [address], [place] [address] Sep, [facility] [address] [id number] [address] [place] [address], [place] [address] Sep, [facility] [address] [id number] [address] [place] [address], [place] [address] Aug, [facility] [address] [id number] [address] [place] [address], [place] [address] 28 Aug, 2011 [facility] [address] [id number] [address] [place] [address], [place] [address] 26 Aug, 2011 [facility] [address] [id number] [address] [place] [address], [place] [address] 19 Aug, 2011 [facility] [address] [id number] [address] [place] [address], [place] [address] 12 Aug, 2011 [facility] [address] [id number] [address] [place] [address], [place] [address] 14 Aug, 2011 [facility] [address] [id number] [address] [place] [address], [place] [address] 07 Aug, 2011 [facility] [address] [id number] [address] [place] [address], [place] [address] 27 Jul, 2011 [facility] [address] [id number] [address] [place] [address], [place] [address] 20 Jul, 2011 [facility] [address] [id number] [address] [place] [address], [place] [address] Jul, [facility] [address] [id number] [address] [place] [address], [place] [id number] 28 May, 2011 [facility] [address] [id number] [address] [place] [address], [place] [address] 28 May, 2011 [facility] [address] [id number] [address] [place] [address], [place] [address] 21 May, 2011 [facility] [address] [id number] [address] [place] [address], [place] [address] 19 May, 2011 [facility] [address] [id number] [address] [place] [address], [place] [address] 13 May, 2011 [facility] [address] [id number] [address] [place] [address], [place] [id number] 13 May, 2011 [facility] [address] [id number] [address] [place], [place] [address] [address] May, [facility] [address] [id number] [address] [place] [phone] Mar, [facility] [address] [id number] [address] [place] [phone] Mar, [facility] [address] [id number] [address] [place] [id number] Mar, [facility] [address] [id number] [address] [place] [id number] 15 Mar, 2011 [facility] [address] [id number] [address] [place] [id number] Mar, [facility] [address] [id number] [address] [place] [id number] Mar, [facility] [address] [id number] [address] [place] [id number] Jan, [facility] [address] [id number] [address] [place] [id number] May, [facility] [address] [id number] [address] [place] [phone] May, [facility] [address] [id number] [address] [place] [phone] May, [facility] [address] [id number] [address] [place] [phone] May, [facility] [address] [id number] [address] [place] [phone] May, [facility] [address] [id number] [address] [place] [id number] May, [facility] [address] [id number] [address] [place] [id number] Mar, [facility] [address] [id number] [address] [place] [id number] Sep, IMMUNIZATIONS No Known Immunizations SOCIAL HISTORY [...]
--- OUTSIDE RECORDS SUMMARY | 2019-12-30 23:39 | XMS REPORT ---
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 unspecified otitis media type H66.93 [facility] [address] [id number] [address] [place] [address] Jan, Lumbago with sciatica, left side M54.42 [facility] [address] [id number] [address] [place] [address] Jan, [facility] [address] [id number] [address] [place] [address] Jan, [facility] [address] [id number] [address] [place] [address] Jan, Sore throat J02.9 ; Carpal t unnel syndrome, left upper limb G56.02 and Carpal tunnel syndrome, right upper limb G56.01 [facility] [address] [id number] [address] [place] [address] Dec, [facility] [address] [id number] [address] [place] [address] Dec, [facility] [address] [id number] [address] [place] [address] Dec, [facility] [address] [id number] [address] [place] [address] Dec, [facility] [address] [id number] [address] [place] [address] Dec, Lumbago with sciatica, left side M54.42 [facility] [address] [id number] [address] [place] [address] Dec, Anxiety F41.9 [facility] [address] [facility] [id number] [address] [place] [address] Dec, Tremor R25.1 ; Back pain wit h right-sided radiculopathy M54.10 and Headache R51 [facility] [address] [facility] [id number] [address] [place] [address] Dec, [facility] [address] [id number] [address] [place] [address] Dec, [facility] [address] [id number] [address] [place] [address] Dec, Lumbago with sciatica, left side M54.42 [facility] [address] [facility] [id number] [address] [place] [address] Dec, Dizziness R42 [facility] [address] [id number] [address] [place] [address] Nov, [facility] [address] [id number] [address] [place] [address] Nov, Lumbago with sciatica, left side M54.42 and Lumbago with sciatica, right side M54.41 [facility] [address] [facility] [id number] [address] [place] [address] Nov, Anxiety F41.9 [facility] [address] [facility] [id number] [address] [place] [phone] Nov, [facility] [address] [facility] [id number] [address] [place] [address] Nov, Headache R51 [facility] [address] [facility] [id number] [address] [place] [address] October, Encounter for Depo-Provera c ontraception Z30.42 [facility] [address] [facility] [id number] [address] [place] [address] October, Anxiety F41.9 [facility] [address] [facility] [id number] [address] [place] [address] October, Anxiety F41.9 [facility] [address] [facility] [id number] [address] [place] [address] October, [facility] [address] [facility] [id number] [address] [place] [address] October, Vaginal yeast infection B37. 3 [facility] [address] [id number] [address] [place] [address] October, [facility] [address] [facility] [id number] [address] [place] [address] October, Headache R51 [facility] [address] [facility] [id number] [address] [place] [address] Sep, [facility] [address] [facility] [id number] [place] [address] Sep, [facility] [address] [facility] [id number] [address] [place] [address] Sep, Headache R51 [facility] [address] [facility] [id number] [place] [address] Sep, [facility] [address] [place] [id number] [place] [address] Sep, Headache R51 [facility] [address] [facility] [id number] [address] [place] [address] 29 Aug, 2015 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 and Headache R51 [facility] [address] [facility] [id number] [address] [place] [address] 24 Aug, 2015 [facility] [address] [facility] [id number] [address] [place] [address] Aug, Headache R51 ; Forgetfulness R68.[address] scan, head R93.0 [facility] [address] [facility] [id number] [address] [place] [address] 16 Aug, 2015 [facility] [address] [facility] [id number] [address] [place] [address] 15 Aug, 2015 [facility] [address] [facility] [id number] [address] [place] [address] 14 Aug, 2015 [facility] [address] [facility] [id number] [address] [place] [address] 11 Aug, 2015 Headache R51 [facility] [address] [place] [id number] [address] [place] [address] 08 Aug, 2015 Abnormal computed tomography angiography of head R93.0 [place] [address] [address] 07 Aug, [address] of the head R93. 0 [place] [address] [address] Aug, Headache R51 ; Nausea R11.0 and Forgetfulness R68.89 [place] [address] [address] Aug, Mental disor NOS oth dis F99 ; Unspecified mood [affective] disorder F39 and Anxiety disorder, unspecified F41.9 [place] [address] [address] Aug, [place] [address] [address] Aug, [place] [address] [address] Aug, Encounter for Depo-Provera c ontraception Z30.42 [place] [address] [place] [id number] [address] [place] [address] Jul, [place] [address] [address] Jul, Contusion of unspecified fin laura without damage to nail, subsequent encounter S60.00XD [place] [address] [place] [id number] [address] [place] [address] May, [place] [address] [address] May, [facility] [address] [place] [id number] [address] [place] [id number] May, Dental examination Z01.20 [place] [address] [place] [id number] [address] [place] [address] May, Hematuria R31.9 [facility] [address] [facility] [id number] [address] [place] [address] May, [facility] [address] [facility] [id number] [address] [place] [address] May, Generalized anxiety disorder F41.1 [facility] [address] [facility] [id number] [address] [place] [address] May, [facility] [address] [facility] [id number] [address] [place] [address] May, [facility] [address] [place] [id number] [address] [place] [address] May, [facility] [address] [place] [id number] [address] [place] [address] Mar, Upper respiratory tract infe ction, unspecified upper respiratory infection J06.9 ; Anaphylaxis, subsequent encounter T78.2XXD ; Encounter for Depo-Provera contraception Z30.42 and Encounter for surveillance of injectable contraceptive Z30.42 [facility] [address] [place] [id number] [address] [place] [address] Mar, [facility] [address] [facility] [id number] [address] [place] [address] Mar, [facility] [address] [place] [id number] [address] [place] [address] Mar, [facility] [address] [facility] [id number] [address] [place] [address] Mar, [facility] [address] [facility] [id number] [address] [place] [address] Mar, [facility] [address] [facility] [id number] [address] [place] [address] Jan, [facility] [address] [facility] [id number] [address] [place] [address] Jan, [facility] [address] [id number] [address] [place] [address] Jan, [facility] [address] [id number] [address] [place] [address] Dec, [facility] [address] [id number] [address] [place] [address] [id number] Dec, Dental examination V72.2 [facility] [address] [id number] [address] [place] [address] Dec, [facility] [address] [id number] [address] [place] [address] Nov, [facility] [address] [id number] [address] [place] [address] Nov, [facility] [address] [id number] [address] [place] [address] Nov, Abdominal pain 789.00 and Na usea and vomiting 787.01 [facility] [address] [id number] [address] [place] [address] Nov, UTI (lower urinary tract inf ection) 599.0 and Abdominal pain 789.00 [facility] [address] [id number] [address] [place] [address] October, [facility] [address] [id number] [address] [place] [address] Sep, [facility] [address] [id number] [address] [place] [address] Sep, [facility] [address] [id number] [address] [place] [address] Aug, [facility] [address] [id number] [address] [place] [address] Aug, [facility] [address] [id number] [address] [place] [address] Aug, [facility] [address] [id number] [address] [place] [address] Aug, [facility] [address] [id number] [address] [place] [address], [place] [address] Aug, [facility] [address] [id number] [address] [place] [address], [place] [address] Aug, [facility] [address] [id number] [address] [place] [address], [place] [address] Aug, [facility] [address] [id number] [address] [place] [address], [place] [address] Aug, [facility] [address] [id number] [address] [place] [address], [place] [address] Jul, [facility] [address] [id number] [address] [place] [address], [place] [address] Jul, [facility] [address] [id number] [address] [place] [address], [place] [id number] Jul, [facility] [address] [id number] [address] [place] [address], [place] [id number] Jul, [facility] [address] [id number] [address] [place] [address], [place] [id number] Jul, [facility] [address] [id number] [address] [place] [address], [place] [address] Jul, [facility] [address] [id number] [address] [place] [address], [place] [id number] Jul, [facility] [address] [id number] [address] [place] [address], [place] [address] Jul, [facility] [address] [id number] [address] [place] [address], [place] [id number] Jul, [facility] [address] [id number] [address] [place] [address], [place] [id number] Jul, [facility] [address] [id number] [address] [place] [address], [place] [id number] Jul, [facility] [place] [address] [id number] [address] [place] [address], [place] [id number] Jul, [facility] [address] [id number] [address] [place] [address], [place] [id number] May, [facility] [address] [id number] [address] [place] [address], [place] [address] May, [facility] [address] [id number] [address] [place] [address], [place] [id number] May, [facility] [address] [id number] [address] [place] [address], [place] [id number] May, [facility] [address] [id number] [address] [place] [address], [place] [address] May, [facility] [address] [id number] [address] [place] [address], [place] [id number] May, [facility] [address] [id number] [address] [place] [address], [place] [id number] May, [facility] [address] [id number] [address] [place] [address], [place] [id number] May, [facility] [address] [id number] [address] [place] [address], [place] [id number] May, [facility] [address] [id number] [address] [place] [address], [place] [id number] May, [facility] [address] [id number] [address] [place] [address], [place] [id number] May, [facility] [address] [id number] [address] [place] [address], [place] [address] May, [facility] [address] [id number] [address] [place] [address], [place] [address] May, [facility] [address] [id number] [address] [place] [address], [place] [address] May, [facility] [address] [id number] [address] [place] [address], [place] [address] May, [facility] [address] [id number] [address] [place] [address], [place] [address] May, [facility] [address] [id number] [address] [place] [address], [place] [address] May, [facility] [address] [id number] [address] [place] [address], [place] [address] May, [facility] [address] [id number] [address] [place] [address], [place] [address] May, [facility] [address] [id number] [address] [place] [address], [place] [address] May, [facility] [address] [id number] [address] [place] [address], [place] [address] May, [facility] [address] [id number] [address] [place] [address], [place] [address] May, [facility] [address] [id number] [address] [place] [address], [place] [address] May, [facility] [address] [id number] [address] [place] [address], [place] [address] May, [facility] [address] [id number] [address] [place] [address], [place] [address] May, [facility] [address] [id number] [address] [place] [address], [place] [address] May, [facility] [address] [id number] [address] [place] [address], [place] [address] May, [facility] [address] [id number] [address] [place] [address], [place] [address] May, [facility] [address] [id number] [address] [place] [address], [place] [address] May, [facility] [address] [id number] [address] [place] [address], [place] [address] May, [facility] [address] [id number] [address] [place] [address], [place] [address] 08 May, 2014 [facility] [address] [id number] [address] [place] [address], [place] [address] May, [facility] [address] [id number] [address] [place] [address], [place] [address] May, [facility] [address] [id number] [address] [place] [address], [place] [address] May, [facility] [address] [id number] [address] [place] [address], [place] [address] May, [facility] [address] [id number] [address] [place] [address], [place] [address] Mar, [facility] [address] [id number] [address] [place] [address], [place] [address] Mar, [facility] [address] [id number] [address] [place] [address], [place] [address] Mar, [facility] [address] [id number] [address] [place] [address], [place] [address] Mar, [facility] [address] [id number] [address] [place] [address], [place] [address] Mar, [facility] [address] [id number] [address] [place] [address], [place] [address] Mar, [facility] [address] [id number] [address] [place] [address], [place] [address] Mar, [facility] [address] [id number] [address] [place] [address], [place] [address] Mar, [facility] [address] [id number] [address] [place] [address], [place] [address] Mar, [facility] [address] [id number] [address] [place] [address], [place] [address] Mar, [facility] [address] [id number] [address] [place] [address], [place] [address] Mar, [facility] [address] [id number] [address] [place] [address], [place] [address] Mar, [facility] [address] [id number] [address] [place] [address], [place] [address] Mar, [facility] [address] [id number] [address] [place] [address], [place] [address] Mar, [facility] [address] [id number] [address] [place] [address], [place] [address] Jan, [facility] [address] [id number] [address] [place] [address], [place] [address] Jan, [facility] [address] [id number] [address] [place] [address], [place] [address] Jan, [facility] [address] [id number] [address] [place] [address], [place] [address] Jan, [facility] [address] [id number] [address] [place] [address], [place] [address] Jan, [facility] [address] [id number] [address] [place] [address], [place] [address] Jan, [facility] [address] [id number] [address] [place] [address], [place] [address] Jan, [facility] [address] [id number] [address] [place] [address], [place] [address] Jan, [facility] [address] [id number] [address] [place] [address], [place] [address] Jan, [facility] [address] [id number] [address] [place] [address], [place] [address] Dec, [facility] [address] [id number] [address] [place] [address], [place] [address] Dec, [facility] [address] [id number] [address] [place] [address], [place] [address] Dec, [facility] [address] [id number] [address] [place] [address], [place] [address] Dec, [facility] [address] [id number] [address] [place] [address], [place] [address] Dec, [facility] [address] [id number] [address] [place] [address], [place] [address] Dec, [facility] [address] [id number] [address] [place] [address], [place] [address] Dec, [facility] [address] [id number] [address] [place] [address], [place] [address] Dec, [facility] [address] [id number] [address] [place] [address], [place] [address] Dec, [facility] [address] [id number] [address] [place] [address], [place] [address] October, [facility] [address] [id number] [address] [place] [address], [place] [address] October, [facility] [address] [id number] [address] [place] [address], [place] [address] Sep, [facility] [address] [id number] [address] [place] [address], [place] [address] Sep, [facility] [address] [id number] [address] [place] [address], [place] [address] Aug, [facility] [address] [id number] [address] [place] [address], [place] [address] Aug, [facility] [address] [id number] [address] [place] [address], [place] [address] Aug, [facility] [address] [id number] [address] [place] [address], [place] [address] Aug, [facility] [address] [id number] [address] [place] [address], [place] [address] Aug, [facility] [address] [id number] [address] [place] [address], [place] [address] Aug, [facility] [address] [id number] [address] [place] [address], [place] [address] 14 Aug, 2013 [facility] [address] [id number] [address] [place] [address], [place] [address] Aug, [facility] [address] [id number] [address] [place] [address], [place] [address] Aug, [facility] [address] [id number] [address] [place] [address], [place] [address] Aug, [facility] [address] [id number] [address] [place] [address], [place] [address] Aug, [facility] [address] [id number] [address] [place] [address], [place] [address] Jul, [facility] [address] [id number] [address] [place] [address], [place] [address] Jul, [facility] [address] [id number] [address] [place] [address], [place] [address] May, [facility] [address] [id number] [address] [place] [address], [place] [address] May, [facility] [address] [id number] [address] [place] [address], [place] [address] May, [facility] [address] [id number] [address] [place] [address], [place] [address] May, [facility] [address] [id number] [address] [place] [address], [place] [address] May, [facility] [address] [id number] [address] [place] [address], [place] [address] May, [facility] [address] [id number] [address] [place] [address], [place] [address] May, [facility] [address] [id number] [address] [place] [address], [place] [address] May, [facility] [address] [id number] [address] [place] [address] May, [facility] [address] [id number] [address] [place] [address], [place] [address] May, [facility] [address] [id number] [address] [place] [address], [place] [address] May, [facility] [address] [id number] [address] [place] [address], [place] [address] May, [facility] [address] [id number] [address] [place] [address], [place] [address] May, [facility] [address] [id number] [address] [place] [address], [place] [address] May, [facility] [address] [id number] [address] [place] [address], [place] [address] May, [facility] [address] [id number] [address] [place] [address], [place] [address] May, [facility] [address] [id number] [address] [place] [address], [place] [address] 18 May, 2013 [facility] [address] [id number] [address] [place] [address], [place] [address] 18 May, 2013 [facility] [address] [id number] [address] [place] [address], [place] [address] 16 May, 2013 [facility] [address] [id number] [address] [place] [address], [place] [address] 16 May, 2013 [facility] [address] [id number] [address] [place] [address] 11 May, 2013 [facility] [address] [id number] [address] [place] [address], [place] [address] 11 May, 2013 [facility] [address] [id number] [address] [place] [address], [place] [address] 11 May, 2013 [facility] [address] [id number] [address] [place] [address], [place] [address] 11 May, 2013 [facility] [address] [id number] [address] [place] [address], [place] [address] 09 May, 2013 [facility] [address] [id number] [address] [place] [address], [place] [address] May, [facility] [address] [id number] [address] [place] [address], [place] [address] May, [facility] [address] [id number] [address] [place] [address], [place] [address] 07 May, 2013 [facility] [address] [id number] [address] [place] [address], [place] [address] May, [facility] [address] [id number] [address] [place] [address], [place] [address] May, [facility] [address] [id number] [address] [place] [address], [place] [address] Mar, [facility] [address] [id number] [address] [place] [address], [place] [address] Mar, [facility] [address] [id number] [address] [place] [address], [place] [address] Mar, [facility] [address] [id number] [address] [place] [address], [place] [address] Mar, [facility] [address] [id number] [address] [place] [address], [place] [address] 30 Mar, 2013 [facility] [address] [id number] [address] [place] [address], [place] [address] 29 Mar, 2013 [facility] [address] [id number] [address] [place] [address], [place] [address] 29 Mar, 2013 [facility] [address] [id number] [address] [place] [address], [place] [address] Mar, [facility] [address] [id number] [address] [place] [address], [place] [address] 29 Mar, 2013 [facility] [address] [id number] [address] [place] [address], [place] [address] 28 Mar, 2013 [facility] [address] [id number] [address] [place] [address], [place] [address] 28 Mar, 2013 [facility] [address] [id number] [address] [place] [address], [place] [address] 24 Mar, 2013 [facility] [address] [id number] [address] [place] [address], [place] [address] 24 Mar, 2013 [facility] [address] [id number] [address] [place] [address], [place] [address] 23 Mar, 2013 [facility] [address] [id number] [address] [place] [address], [place] [address] 22 Mar, 2013 [facility] [address] [id number] [address] [place] [address], [place] [address] Mar, [facility] [address] [id number] [address] [place] [address], [place] [address] Mar, [facility] [address] [id number] [address] [place] [address] 18 Mar, 2013 [facility] [address] [id number] [address] [place] [address], [place] [address] 18 Mar, 2013 [facility] [address] [id number] [address] [place] [address] 18 Mar, 2013 [facility] [address] [id number] [address] [place] [address] 18 Mar, 2013 [facility] [address] [id number] [address] [place] [address] 14 Mar, 2013 [facility] [address] [id number] [address] [place] [address], [place] [address] 14 Mar, 2013 [facility] [address] [id number] [address] [place] [address] 10 Mar, 2013 [facility] [address] [id number] [address] [place] [address] 18 Mar, 2013 [facility] [address] [id number] [address] [place] [address], [place] [address] 12 Mar, 2013 [facility] [place] [address] [id number] [address] [place] [address], [place] [address] Mar, [facility] [address] [id number] [address] [place] [address], [place] [address] Jan, [facility] [address] [id number] [address] [place] [address], [place] [address] October, [facility] [address] [id number] [address] [place] [address], [place] [address] Sep, [facility] [address] [id number] [address] [place] [address], [place] [address] Sep, [facility] [address] [id number] [address] [place] [address], [place] [address] 07 Aug, 2012 [facility] [place] [address] [id number] [address] [place] [address], [place] [address] 06 Aug, 2012 [facility] [address] [id number] [address] [place] [address], [place] [address] 04 Aug, 2012 [facility] [place] [address] [id number] [address] [place] [address], [place] [address] Jul, [facility] [address] [id number] [address] [place] [address], [place] [address] May, [facility] [place] [address] [id number] [address] [place] [address], [place] [address] May, [facility] [place] [address] [id number] [address] [place] [address], [place] [address] May, [facility] [address] [id number] [address] [place] [address], [place] [address] May, [facility] [address] [id number] [address] [place] [address], [place] [address] Mar, [facility] [place] [address] [id number] [address] [place] [address], [place] [address] Mar, [facility] [address] [id number] [address] [place] [address], [place] [address] 16 Mar, 2012 [facility] [address] [id number] [address] [place] [address], [place] [address] 25 Mar, 2012 [facility] [address] [id number] [address] [place] [address], [place] [address] 19 Mar, 2012 [facility] [address] [id number] [address] [place] [address], [place] [address] 13 Mar, 2012 [facility] [address] [id number] [address] [place] [address], [place] [address] 07 Mar, 2012 [facility] [address] [id number] [address] [place] [address], [place] [id number] 30 Jan, 2012 [facility] [address] [id number] [address] [place] [address], [place] [address] Jan, [facility] [address] [id number] [address] [place] [address], [place] [address] Jan, [facility] [address] [id number] [address] [place] [address], [place] [id number] Jan, [facility] [address] [id number] [address] [place] [address], [place] [id number] Jan, [facility] [address] [id number] [address] [place] [address], [place] [address] Jan, [facility] [address] [id number] [address] [place] [address], [place] [address] Jan, [facility] [address] [id number] [address] [place] [address], [place] [address] Jan, [facility] [address] [id number] [address] [place] [address], [place] [id number] Jan, [facility] [address] [id number] [address] [place] [address], [place] [address] Jan, [facility] [address] [id number] [address] [place] [address], [place] [id number] Jan, [facility] [address] [id number] [address] [place] [address], [place] [address] Jan, [facility] [address] [id number] [address] [place] [address], [place] [address] Jan, [facility] [address] [id number] [address] [place] [address], [place] [address] Jan, [facility] [address] [id number] [address] [place] [address], [place] [address] Jan, [facility] [address] [id number] [address] [place] [address], [place] [id number] Jan, [facility] [address] [id number] [address] [place] [address], [place] [address] Dec, [facility] [address] [id number] [address] [place] [address], [place] [address] Dec, [facility] [address] [id number] [address] [place] [address], [place] [id number] Nov, [facility] [address] [id number] [address] [place] [address], [place] [address] Nov, [facility] [address] [id number] [address] [place] [address], [place] [address] October, [facility] [address] [id number] [address] [place] [address], [place] [address] October, [facility] [address] [id number] [address] [place] [address], [place] [address] October, [facility] [address] [id number] [address] [place] [address], [place] [address] Sep, [facility] [address] [id number] [address] [place] [address], [place] [address] Sep, [facility] [address] [id number] [address] [place] [address], [place] [address] Aug, [facility] [address] [id number] [address] [place] [address], [place] [id number] 28 Aug, 2011 [facility] [address] [id number] [address] [place] [address], [place] [address] 26 Aug, 2011 [facility] [address] [id number] [address] [place] [address], [place] [address] 19 Aug, 2011 [facility] [address] [id number] [address] [place] [address], [place] [address] 12 Aug, 2011 [facility] [address] [id number] [address] [place] [address], [place] [address] 14 Aug, 2011 [facility] [address] [id number] [address] [place] [address], [place] [address] 07 Aug, 2011 [facility] [address] [id number] [address] [place] [address], [place] [id number] 27 Jul, 2011 [facility] [address] [id number] [address] [place] [address], [place] [address] 20 Jul, 2011 [facility] [address] [id number] [address] [place] [address], [place] [address] Jul, [facility] [address] [id number] [address] [place] [address], [place] [address] 28 May, 2011 [facility] [address] [id number] [address] [place] [address], [place] [address] 28 May, 2011 [facility] [address] [id number] [address] [place] [address], [place] [address] 21 May, 2011 [facility] [address] [id number] [address] [place] [address], [place] [address] 19 May, 2011 [facility] [address] [id number] [address] [place] [address], [place] [address] 13 May, 2011 [facility] [address] [id number] [address] [place] [address], [place] [address] 13 May, 2011 [facility] [address] [id number] [address] [place] [address] [address] May, [facility] [address] [id number] [address] [place] [id number] Mar, [facility] [address] [id number] [address] [place] [id number] Mar, [facility] [address] [id number] [address] [place] [id number] Mar, [facility] [address] [id number] [address] [place] [id number] 15 Mar, 2011 [facility] [address] [id number] [address] [place] [id number] Mar, [facility] [address] [id number] [address] [place] [id number] Mar, [facility] [address] [address] [id number] [address] [place] [id number] Jan, [facility] [address] [id number] [address] [place] [phone] May, [facility] [address] [id number] [address] [place] [phone] May, [facility] [address] [id number] [address] [place] [id number] May, [facility] [address] [id number] [address] [place] [phone] May, [facility] [address] [id number] [address] [place] [id number] May, [facility] [address] [id number] [address] [place] [phone] May, [facility] [address] [id number] [address] [place] [id number] Mar, [facility] [address] [id number] [address] [place] [phone] Sep, IMMUNIZATIONS No Known Immunizations SOCIAL HISTORY [...]
--- OUTSIDE RECORDS SUMMARY | 2019-12-30 23:39 | XMS REPORT ---
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 Dec, Dizziness R42 [facility] [address] [id number] [address] [place] [id number] Nov, [facility] [address] [id number] [address] [place] [address] Nov, Lumbago with sciatica, left side M54.42 and Lumbago with sciatica, right side M54.41 [facility] [address] [id number] [address] [place] [address] Nov, Anxiety F41.9 [facility] [address] [facility] [id number] [address] [place] [address] Nov, [facility] [address] [facility] [id number] [address] [place] [address] Nov, Headache R51 [facility] [address] [facility] [id number] [address] [place] [address] October, Encounter for Depo-Provera c ontraception Z30.42 [facility] [address] [facility] [id number] [address] [place] [address] October, Anxiety F41.9 [facility] [address] [facility] [id number] [address] [place] [address] October, Anxiety F41.9 [facility] [address] [facility] [id number] [address] [place] [address] October, [facility] [address] [facility] [id number] [address] [place] [address] October, Vaginal yeast infection B37. 3 [facility] [address] [facility] [id number] [address] [place] [address] October, [facility] [address] [id number] [address] [place] [address] October, Headache R51 [facility] [address] [id number] [address] [place] [address] Sep, [facility] [address] [id number] [address] [place] [address] Sep, [facility] [address] [facility] [id number] [address] [place] [address] Sep, Headache R51 [facility] [address] [id number] [address] [place] [id number] Sep, [facility] [address] [facility] [id number] [address] [place] [address] Sep, Headache R51 [facility] [address] [facility] [id number] [address] [place] [address] Aug, 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 and Headache R51 [facility] [address] [facility] [id number] [address] [place] [id number] 24 Aug, 2015 [facility] [address] [facility] [id number] [address] [place] [id number] 23 Aug, 2015 Headache R51 ; Forgetfulness R68.[address] scan, head R93.0 [facility] [address] [facility] [id number] [address] [place] [address] 16 Aug, 2015 [facility] [address] [facility] [id number] [address] [place] [address] 15 Aug, 2015 [facility] [address] [facility] [id number] [address] [place] [address] 14 Aug, 2015 [facility] [address] [facility] [id number] [address] [place] [address] 11 Aug, 2015 Headache R51 [facility] [address] [facility] [id number] [address] [place] [id number] 08 Aug, 2016 Abnormal computed tomography angiography of head R93.0 [place] [address] [address] 07 Aug, [address] of the head R93. 0 [place] [address] [address] Aug, Headache R51 ; Nausea R11.0 and Forgetfulness R68.89 [place] [address] [address] Aug, Mental disor NOS oth dis F99 ; Unspecified mood [affective] disorder F39 and Anxiety disorder, unspecified F41.9 [place] [address] [address] Aug, [place] [address] [address] Aug, [place] [address] [address] Aug, Encounter for Depo-Provera c ontraception Z30.42 [place] [address] [address] Jul, [place] [address] [address] Jul, Contusion of unspecified fin laura without damage to nail, subsequent encounter S60.00XD [place] [address] [address] May, [place] [address] [address] May, [facility] [address] [place] [id number] [place] [id number] May, Dental examination Z01.20 [place] [address] [place] [id number] [address] [place] [address] 15 May, 2015 Hematuria R31.9 [place] [address] [address] May, [facility] [address] [id number] [address] [place] [address] May, Generalized anxiety disorder F41.1 [facility] [address] [id number] [address] [place] [address] May, [facility] [address] [id number] [address] [place] [address] May, [facility] [address] [id number] [address] [place] [address] May, [facility] [address] [facility] [id number] [address] [place] [address] Mar, Upper respiratory tract infe ction, unspecified upper respiratory infection J06.9 ; Anaphylaxis, subsequent encounter T78.2XXD ; Encounter for Depo-Provera contraception Z30.42 and Encounter for surveillance of injectable contraceptive Z30.42 [facility] [address] [id number] [address] [place] [address] Mar, [facility] [address] [id number] [address] [place] [address] Mar, [facility] [address] [facility] [id number] [address] [place] [address] Mar, [facility] [address] [id number] [address] [place] [address] Mar, [facility] [address] [id number] [address] [place] [address] Mar, [facility] [address] [id number] [address] [place] [address] Jan, [facility] [address] [id number] [address] [place] [address] Jan, [facility] [address] [id number] [address] [place] [address] Jan, [facility] [address] [id number] [address] [place] [address] Dec, [facility] [address] [id number] [address] [place] [id number] Dec, Dental examination V72.2 [facility] [address] [id number] [address] [place] [address] Dec, [facility] [address] [id number] [address] [place] [address] Nov, [facility] [address] [id number] [address] [place] [address] Nov, [facility] [address] [id number] [address] [place] [address] Nov, Abdominal pain 789.00 and Na usea and vomiting 787.01 [facility] [address] [id number] [address] [place] [address] Nov, UTI (lower urinary tract inf ection) 599.0 and Abdominal pain 789.00 [facility] [address] [id number] [address] [place] [address] October, [facility] [address] [id number] [address] [place] [address] Sep, [facility] [address] [id number] [address] [place] [id number] Sep, [facility] [address] [id number] [address] [place] [address] Aug, [facility] [address] [id number] [address] [place] [id number] Aug, [facility] [address] [id number] [address] [place] [address] Aug, [facility] [address] [id number] [address] [place] [address] Aug, [facility] [address] [id number] [address] [place] [id number] Aug, [facility] [address] [id number] [address] [place] [address], [place] [address] Aug, [facility] [address] [id number] [address] [place] [address], [place] [address] Aug, [facility] [address] [id number] [address] [place] [address], [place] [address] Aug, [facility] [address] [id number] [address] [place] [address], [place] [address] Jul, [facility] [address] [id number] [address] [place] [address], [place] [address] Jul, [facility] [address] [id number] [address] [place] [address], [place] [address] Jul, [facility] [address] [id number] [address] [place] [address], [place] [address] Jul, [facility] [address] [id number] [address] [place] [address], [place] [address] Jul, [facility] [address] [id number] [address] [place] [id number] Jul, [facility] [address] [id number] [address] [place] [address], [place] [address] Jul, [facility] [address] [id number] [address] [place] [address] Jul, [facility] [address] [id number] [address] [place] [id number] Jul, [facility] [address] [id number] [address] [place] [address] Jul, [facility] [address] [id number] [address] [place] [address] Jul, [facility] [address] [id number] [address] [place] [address], [place] [address] Jul, [facility] [address] [id number] [facility] [place] [address] May, [facility] [address] [id number] [facility] [place] [address] May, [facility] [address] [id number] [address] [place] [address], [place] [address] May, [facility] [address] [id number] [address] [place] [address], [place] [address] May, [facility] [address] [id number] [address] [place] [address], [place] [address] May, [facility] [address] [id number] [address] [place] [address], [place] [address] May, [facility] [address] [id number] [address] [place] [address], [place] [address] May, [facility] [address] [id number] [address] [place] [address], [place] [address] May, [facility] [address] [id number] [address] [place] [address], [place] [address] May, [facility] [address] [id number] [address] [place] [address], [place] [address] May, [facility] [address] [id number] [address] [place] [address], [place] [address] May, [facility] [address] [id number] [address] [place] [address], [place] [address] May, [facility] [address] [id number] [address] [place] [address], [place] [address] May, [facility] [address] [id number] [address] [place] [address], [place] [address] May, [facility] [address] [id number] [address] [place] [address], [place] [address] May, [facility] [address] [id number] [address] [place] [address], [place] [address] May, [facility] [address] [id number] [address] [place] [address], [place] [address] 08 May, 2014 [facility] [address] [id number] [address] [place] [address], [place] [address] May, [facility] [address] [id number] [address] [place] [address], [place] [address] May, [facility] [address] [id number] [address] [place] [address], [place] [address] May, [facility] [address] [id number] [address] [place] [address], [place] [address] May, [facility] [address] [id number] [address] [place] [address], [place] [address] May, [facility] [address] [id number] [address] [place] [address], [place] [address] May, [facility] [address] [id number] [address] [place] [address], [place] [address] May, [facility] [address] [id number] [address] [place] [address], [place] [address] May, [facility] [address] [id number] [address] [place] [address], [place] [address] May, [facility] [address] [id number] [address] [place] [address], [place] [address] May, [facility] [address] [id number] [address] [place] [address], [place] [address] May, [facility] [address] [id number] [address] [place] [address], [place] [address] May, [facility] [address] [id number] [address] [place] [address], [place] [address] May, [facility] [address] [id number] [address] [place] [address], [place] [address] May, [facility] [address] [id number] [address] [place] [address], [place] [address] May, [facility] [address] [id number] [address] [place] [address], [place] [address] May, [facility] [address] [id number] [address] [place] [address], [place] [address] May, [facility] [address] [id number] [address] [place] [address], [place] [address] May, [facility] [address] [id number] [address] [place] [address], [place] [address] Mar, [facility] [address] [id number] [address] [place] [address], [place] [address] Mar, [facility] [address] [id number] [address] [place] [address], [place] [address] Mar, [facility] [facility] [address] [id number] [address] [place] [address], [place] [address] Mar, [facility] [address] [id number] [address] [place] [address], [place] [address] Mar, [facility] [address] [id number] [address] [place] [address], [place] [address] Mar, [facility] [address] [id number] [address] [place] [address], [place] [address] Mar, [facility] [address] [id number] [address] [place] [address], [place] [address] Mar, [facility] [address] [id number] [address] [place] [address], [place] [address] 24 Mar, 2014 [facility] [address] [id number] [address] [place] [address], [place] [address] 24 Mar, 2014 [facility] [address] [id number] [address] [place] [address], [place] [address] 08 Mar, 2014 [facility] [address] [id number] [address] [place] [address], [place] [address] 08 Mar, 2014 [facility] [address] [id number] [facility] [place] [address] Mar, [facility] [address] [id number] [facility] [place] [address] Mar, [facility] [address] [id number] [facility] [place] [address] Jan, [facility] [address] [id number] [address] [place] [address], [place] [address] Jan, [facility] [address] [id number] [address] [place] [address], [place] [address] Jan, [facility] [address] [id number] [address] [place] [address], [place] [address] Jan, [facility] [address] [id number] [address] [place] [address], [place] [address] Jan, [facility] [address] [id number] [address] [place] [address], [place] [address] Jan, [facility] [address] [id number] [address] [place] [address], [place] [address] Jan, [facility] [address] [id number] [address] [place] [address], [place] [address] Jan, [facility] [address] [id number] [address] [place] [address], [place] [address] Jan, [facility] [address] [id number] [address] [place] [address], [place] [address] Dec, [facility] [address] [id number] [address] [place] [address], [place] [address] Dec, [facility] [address] [id number] [address] [place] [address], [place] [address] Dec, [facility] [address] [id number] [address] [place] [address], [place] [address] Dec, [facility] [address] [id number] [address] [place] [address], [place] [address] Dec, [facility] [address] [id number] [facility] [place] [address] Dec, [facility] [address] [id number] [address] [place] [address], [place] [address] Dec, [facility] [address] [id number] [address] [place] [address], [place] [address] Dec, [facility] [address] [id number] [address] [place] [address], [place] [address] Dec, [facility] [address] [id number] [address] [place] [address], [place] [address] October, [facility] [address] [id number] [address] [place] [address], [place] [address] October, [facility] [address] [id number] [address] [place] [address], [place] [address] Sep, [facility] [address] [id number] [address] [place] [address], [place] [address] Sep, [facility] [address] [id number] [address] [place] [address], [place] [address] Aug, [facility] [address] [id number] [address] [place] [address], [place] [address] Aug, [facility] [address] [id number] [address] [place] [address], [place] [address] Aug, [facility] [address] [id number] [address] [place] [address], [place] [address] Aug, [facility] [address] [id number] [address] [place] [address], [place] [address] Aug, [facility] [address] [id number] [address] [place] [address], [place] [address] Aug, [facility] [address] [id number] [address] [place] [address], [place] [address] 14 Aug, 2013 [facility] [address] [id number] [address] [place] [address], [place] [address] 07 Aug, 2013 [facility] [address] [id number] [address] [place] [address], [place] [address] Aug, [facility] [address] [id number] [address] [place] [address], [place] [address] Aug, [facility] [address] [id number] [address] [place] [address], [place] [address] Aug, [facility] [address] [id number] [address] [place] [address], [place] [address] Jul, [facility] [address] [id number] [address] [place] [address], [place] [address] Jul, [facility] [address] [id number] [address] [place] [address], [place] [address] May, [facility] [address] [id number] [address] [place] [address], [place] [address] May, [facility] [address] [id number] [address] [place] [address], [place] [address] May, [facility] [address] [id number] [address] [place] [address], [place] [address] May, [facility] [address] [id number] [address] [place] [address], [place] [address] May, [facility] [address] [id number] [address] [place] [address], [place] [address] May, [facility] [address] [id number] [address] [place] [address], [place] [address] May, [facility] [address] [id number] [address] [place] [address], [place] [address] May, [facility] [address] [id number] [address] [place] [address], [place] [address] May, [facility] [address] [id number] [address] [place] [address], [place] [address] May, [facility] [address] [id number] [address] [place] [address], [place] [address] May, [facility] [address] [id number] [address] [place] [address], [place] [address] May, [facility] [address] [id number] [address] [place] [address], [place] [address] May, [facility] [address] [id number] [address] [place] [address] May, [facility] [address] [id number] [address] [place] [address], [place] [address] May, [facility] [address] [id number] [address] [place] [address] May, [facility] [address] [id number] [address] [place] [address], [place] [address] 18 May, 2013 [facility] [address] [id number] [address] [place] [address] 18 May, 2013 [facility] [address] [id number] [address] [place] [address], [place] [address] 16 May, 2013 [facility] [address] [id number] [address] [place] [address] 16 May, 2013 [facility] [address] [id number] [address] [place] [address] 11 May, 2013 [facility] [address] [id number] [address] [place] [address] May, [facility] [address] [id number] [address] [place] [address], [place] [address] May, [facility] [address] [id number] [address] [place] [address] May, [facility] [address] [id number] [address] [place] [address] 09 May, 2013 [facility] [address] [id number] [address] [place] [address], [place] [address] 09 May, 2013 [facility] [address] [id number] [address] [place] [address], [place] [address] 07 May, 2013 [facility] [address] [id number] [address] [place] [address], [place] [address] May, [facility] [address] [id number] [address] [place] [address], [place] [address] 04 May, 2013 [facility] [address] [id number] [address] [place] [address], [place] [address] May, [facility] [address] [id number] [address] [place] [address], [place] [address] Mar, [facility] [address] [id number] [address] [place] [address], [place] [address] Mar, [facility] [address] [id number] [address] [place] [address], [place] [address] Mar, [facility] [address] [id number] [address] [place] [address], [place] [address] Mar, [facility] [address] [id number] [address] [place] [address], [place] [address] 30 Mar, 2013 [facility] [address] [id number] [address] [place] [address], [place] [address] Mar, [facility] [address] [id number] [address] [place] [address], [place] [address] 29 Mar, 2013 [facility] [address] [id number] [address] [place] [address], [place] [address] Mar, [facility] [address] [id number] [address] [place] [address], [place] [address] Mar, [facility] [address] [id number] [address] [place] [address], [place] [address] Mar, [facility] [address] [id number] [address] [place] [address], [place] [address] 28 Mar, 2013 [facility] [address] [id number] [address] [place] [address], [place] [address] 24 Mar, 2013 [facility] [address] [id number] [address] [place] [address], [place] [address] 24 Mar, 2013 [facility] [address] [id number] [address] [place] [address], [place] [address] 23 Mar, 2013 [facility] [address] [id number] [address] [place] [address], [place] [address] 22 Mar, 2013 [facility] [address] [id number] [address] [place] [address], [place] [address] 21 Mar, 2013 [facility] [address] [id number] [address] [place] [address], [place] [address] 21 Mar, 2013 [facility] [address] [id number] [address] [place] [address], [place] [address] 18 Mar, 2013 [facility] [address] [id number] [address] [place] [address], [place] [address] 18 Mar, 2013 [facility] [address] [id number] [address] [place] [address], [place] [address] 18 Mar, 2013 [facility] [address] [id number] [address] [place] [address] 18 Mar, 2013 [facility] [address] [id number] [address] [place] [address] 14 Mar, 2013 [facility] [address] [id number] [address] [place] [address] 14 Mar, 2013 [facility] [address] [id number] [address] [place] [address], [place] [address] 10 Mar, 2013 [facility] [address] [id number] [address] [place] [address] 18 Mar, 2013 [facility] [address] [id number] [address] [place] [address] 12 Mar, 2013 [facility] [address] [id number] [address] [place] [address] Mar, [facility] [address] [id number] [address] [place] [address], [place] [address] Jan, [facility] [address] [id number] [address] [place] [address] October, [facility] [address] [id number] [address] [place] [address], [place] [address] Sep, [facility] [address] [id number] [address] [place] [address] Sep, [facility] [address] [id number] [address] [place] [address], [place] [address] Aug, [facility] [address] [id number] [address] [place] [address], [place] [address] 06 Aug, 2012 [facility] [address] [id number] [address] [place] [address], [place] [address] 04 Aug, 2012 [facility] [address] [id number] [address] [place] [address], [place] [address] Jul, [facility] [address] [id number] [address] [place] [address], [place] [address] May, [facility] [address] [id number] [address] [place] [address], [place] [address] May, [facility] [address] [id number] [address] [place] [address], [place] [address] 18 May, 2012 [facility] [address] [id number] [address] [place] [address] 18 May, 2012 [facility] [address] [id number] [address] [place] [address], [place] [address] 19 Mar, 2012 [facility] [address] [id number] [address] [place] [address] 19 Mar, 2012 [facility] [address] [id number] [address] [place] [address] 16 Mar, 2012 [facility] [address] [id number] [facility] [place] [address] 25 Mar, 2011 [facility] [address] [id number] [address] [place] [address], [place] [address] 19 Mar, 2011 [facility] [address] [id number] [address] [place] [address], [place] [address] 13 Mar, 2011 [facility] [address] [id number] [address] [place] [address], [place] [address] 07 Mar, 2011 [facility] [address] [id number] [address] [place] [address], [place] [address] 30 Jan, 2012 [facility] [address] [id number] [address] [place] [address], [place] [address] 28 Jan, 2012 [facility] [address] [id number] [address] [place] [address], [place] [address] 20 Jan, 2012 [facility] [address] [id number] [address] [place] [address], [place] [address] 14 Jan, 2012 [facility] [address] [id number] [address] [place] [address], [place] [address] Jan, [facility] [address] [id number] [address] [place] [address], [place] [address] Jan, [facility] [address] [id number] [address] [place] [address], [place] [address] Jan, [facility] [address] [id number] [address] [place] [address], [place] [address] Jan, [facility] [address] [id number] [address] [place] [address], [place] [address] Jan, [facility] [address] [id number] [address] [place] [address], [place] [address] Jan, [facility] [address] [id number] [address] [place] [address], [place] [address] Jan, [facility] [address] [id number] [address] [place] [address], [place] [address] Jan, [facility] [address] [id number] [address] [place] [address], [place] [address] Jan, [facility] [address] [id number] [address] [place] [address], [place] [address] Jan, [facility] [address] [id number] [address] [place] [address], [place] [address] Jan, [facility] [address] [id number] [address] [place] [address], [place] [address] Jan, [facility] [address] [id number] [address] [place] [address], [place] [address] Dec, [facility] [address] [id number] [address] [place] [address], [place] [address] Dec, [facility] [address] [id number] [address] [place] [address], [place] [address] Nov, [facility] [address] [id number] [address] [place] [address], [place] [address] Nov, [facility] [address] [id number] [address] [place] [address], [place] [address] October, [facility] [address] [id number] [address] [place] [address], [place] [address] October, [facility] [address] [id number] [address] [place] [address], [place] [address] October, [facility] [address] [id number] [address] [place] [address], [place] [address] Sep, [facility] [address] [id number] [address] [place] [address], [place] [address] Sep, [facility] [address] [id number] [address] [place] [address], [place] [address] Aug, [facility] [address] [id number] [address] [place] [address], [place] [address] Aug, [facility] [address] [id number] [address] [place] [address], [place] [address] 26 Aug, 2011 [facility] [address] [id number] [address] [place] [address], [place] [address] 19 Aug, 2011 [facility] [address] [id number] [address] [place] [address], [place] [address] 12 Aug, 2011 [facility] [address] [id number] [address] [place] [address], [place] [address] 14 Aug, 2011 [facility] [address] [id number] [address] [place] [address], [place] [address] 07 Aug, 2011 [facility] [address] [id number] [address] [place] [address], [place] [address] 27 Jul, 2011 [facility] [address] [id number] [address] [place] [address], [place] [address] Jul, [facility] [address] [id number] [address] [place] [address], [place] [address] Jul, [facility] [address] [id number] [address] [place] [address], [place] [address] May, [facility] [address] [id number] [address] [place] [address], [place] [address] 28 May, 2011 [facility] [address] [id number] [address] [place] [address], [place] [address] May, [facility] [address] [id number] [address] [place] [address], [place] [address] 19 May, 2011 [facility] [address] [id number] [address] [place] [address], [place] [address] May, [facility] [address] [id number] [address] [place] [address], [place] [address] May, [facility] [address] [id number] [address] [place] [address], [place] [address] 22 May, 2011 [facility] [address] [id number] [address] [place] [address], [place] [address] Mar, [facility] [address] [id number] [address] [place] [id number] Mar, [facility] [address] [id number] [address] [place] [id number] Mar, [facility] [address] [id number] [address] [place] [id number] Mar, [facility] [address] [id number] [address] [place] [id number] Mar, [facility] [address] [id number] [address] [place] [phone] Mar, [facility] [address] [id number] [address] [place] [id number] Jan, [facility] [address] [id number] [address] [place] [id number] May, [facility] [address] [id number] [address] [place] [phone] May, [facility] [address] [id number] [address] [place] [phone] May, [facility] [address] [id number] [address] [place] [id number] May, [facility] [address] [id number] [address] [place] [phone] May, [facility] [address] [id number] [address] [place] [phone] May, [facility] [address] [id number] [address] [place] [id number] Mar, [facility] [address] [id number] [address] [place] [phone] Sep, IMMUNIZATIONS No Known Immunizations SOCIAL HISTORY [...]
--- OUTSIDE RECORDS SUMMARY | 2019-12-30 23:40 | XMS REPORT ---
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 [address] [place] [address] Dec, Dizziness R42 [facility] [address] [id number] [address] [place] [address] Nov, [facility] [address] [id number] [address] [place] [address] Nov, Lumbago with sciatica, left side M54.42 and Lumbago with sciatica, right side M54.41 [facility] [address] [id number] [address] [place] [address] Nov, Anxiety F41.9 [facility] [address] [facility] [id number] [address] [place] [address] Nov, [facility] [address] [facility] [id number] [address] [place] [address] Nov, Headache R51 [facility] [address] [facility] [id number] [address] [place] [address] October, Encounter for Depo-Provera c ontraception Z30.42 [facility] [address] [facility] [id number] [address] [place] [address] October, Anxiety F41.9 [facility] [address] [facility] [id number] [address] [place] [address] October, Anxiety F41.9 [facility] [address] [facility] [id number] [address] [place] [address] October, [facility] [address] [facility] [id number] [address] [place] [address] October, Vaginal yeast infection B37. 3 [facility] [address] [facility] [id number] [address] [place] [address] October, [facility] [address] [id number] [address] [place] [address] October, Headache R51 [facility] [address] [id number] [address] [place] [address] Sep, [facility] [address] [id number] [address] [place] [address] Sep, [facility] [address] [facility] [id number] [address] [place] [address] Sep, Headache R51 [facility] [address] [id number] [address] [place] [address] Sep, [facility] [address] [facility] [id number] [address] [place] [address] Sep, Headache R51 [facility] [address] [facility] [id number] [address] [place] [address] Aug, 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 and Headache R51 [facility] [address] [facility] [id number] [address] [place] [address] 24 Aug, 2015 [facility] [address] [facility] [id number] [address] [place] [address] 23 Aug, 2015 Headache R51 ; Forgetfulness R68.[address] scan, head R93.0 [facility] [address] [facility] [id number] [address] [place] [address] 16 Aug, 2015 [facility] [address] [facility] [id number] [address] [place] [address] 15 Aug, 2015 [facility] [address] [facility] [id number] [address] [place] [address] 14 Aug, 2015 [facility] [address] [facility] [id number] [address] [place] [address] 11 Aug, 2015 Headache R51 [facility] [address] [facility] [id number] [address] [place] [address] 08 Aug, 2016 Abnormal computed tomography angiography of head R93.0 [place] [address] [address] 07 Aug, [address] of the head R93. 0 [place] [address] [address] Aug, Headache R51 ; Nausea R11.0 and Forgetfulness R68.89 [place] [address] [address] Aug, Mental disor NOS oth dis F99 ; Unspecified mood [affective] disorder F39 and Anxiety disorder, unspecified F41.9 [place] [address] [address] Aug, [place] [address] [address] Aug, [place] [address] [address] Aug, Encounter for Depo-Provera c ontraception Z30.42 [place] [address] [address] Jul, [place] [address] [address] Jul, Contusion of unspecified fin laura without damage to nail, subsequent encounter S60.00XD [place] [address] [address] May, [place] [address] [address] May, [facility] [address] [place] [id number] [place] [id number] May, Dental examination Z01.20 [place] [address] [place] [id number] [address] [place] [address] 15 May, 2015 Hematuria R31.9 [place] [address] [address] May, [facility] [address] [id number] [address] [place] [address] May, Generalized anxiety disorder F41.1 [facility] [address] [id number] [address] [place] [address] May, [facility] [address] [id number] [address] [place] [address] May, [facility] [address] [id number] [address] [place] [address] May, [facility] [address] [facility] [id number] [address] [place] [address] Mar, Upper respiratory tract infe ction, unspecified upper respiratory infection J06.9 ; Anaphylaxis, subsequent encounter T78.2XXD ; Encounter for Depo-Provera contraception Z30.42 and Encounter for surveillance of injectable contraceptive Z30.42 [facility] [address] [id number] [address] [place] [address] Mar, [facility] [address] [id number] [address] [place] [address] Mar, [facility] [address] [facility] [id number] [address] [place] [address] Mar, [facility] [address] [id number] [address] [place] [address] Mar, [facility] [address] [id number] [address] [place] [address] Mar, [facility] [address] [id number] [address] [place] [address] Jan, [facility] [address] [id number] [address] [place] [address] Jan, [facility] [address] [id number] [address] [place] [address] Jan, [facility] [address] [id number] [address] [place] [address] Dec, [facility] [address] [id number] [address] [place] [id number] Dec, Dental examination V72.2 [facility] [address] [id number] [address] [place] [address] Dec, [facility] [address] [id number] [address] [place] [address] Nov, [facility] [address] [id number] [address] [place] [address] Nov, [facility] [address] [id number] [address] [place] [address] Nov, Abdominal pain 789.00 and Na usea and vomiting 787.01 [facility] [address] [id number] [address] [place] [address] Nov, UTI (lower urinary tract inf ection) 599.0 and Abdominal pain 789.00 [facility] [address] [id number] [address] [place] [address] October, [facility] [address] [id number] [address] [place] [address] Sep, [facility] [address] [id number] [address] [place] [address] Sep, [facility] [address] [id number] [address] [place] [phone] Aug, [facility] ([facility] [address] [id number] [address] [place] [id number] Aug, [facility] ([facility] [address] [id number] [address] [place] [phone] Aug, [facility] ([facility] [address] [id number] [address] [place] [phone] Aug, [facility] ([facility] [address] [id number] [address] [place] [phone] Aug, [facility] [address] [id number] [address] [place] [address], [place] [address] Aug, [facility] [address] [id number] [address] [place] [address], [place] [address] Aug, [facility] [address] [id number] [address] [place] [address], [place] [address] Aug, [facility] [address] [id number] [address] [place] [address], [place] [address] Jul, [facility] [address] [id number] [address] [place] [address], [place] [address] Jul, [facility] [address] [id number] [address] [place] [address], [place] [address] Jul, [facility] [address] [id number] [address] [place] [address], [place] [address] Jul, [facility] [address] [id number] [address] [place] [address], [place] [address] Jul, [facility] [address] [id number] [address] [place] [id number] Jul, [facility] [address] [id number] [address] [place] [address], [place] [address] Jul, [facility] [address] [id number] [address] [place] [id number] Jul, [facility] [address] [id number] [address] [place] [id number] Jul, [facility] [address] [id number] [address] [place] [phone] Jul, [facility] [address] [id number] [address] [place] [phone] Jul, [facility] [address] [id number] [address] [place] [address], [place] [address] Jul, [facility] [address] [id number] [facility] [place] [address] May, [facility] [address] [id number] [facility] [place] [address] May, [facility] [address] [id number] [address] [place] [address], [place] [address] May, [facility] [address] [id number] [address] [place] [address], [place] [address] May, [facility] [address] [id number] [address] [place] [address], [place] [address] May, [facility] [address] [id number] [address] [place] [address], [place] [address] May, [facility] [address] [id number] [address] [place] [address], [place] [address] May, [facility] [address] [id number] [address] [place] [address], [place] [address] May, [facility] [address] [id number] [address] [place] [address], [place] [address] May, [facility] [address] [id number] [address] [place] [address], [place] [address] May, [facility] [address] [id number] [address] [place] [address], [place] [address] May, [facility] [address] [id number] [address] [place] [address], [place] [address] May, [facility] [address] [id number] [address] [place] [address], [place] [address] May, [facility] [address] [address] [id number] [address] [place] [address], [place] [address] May, [facility] [address] [id number] [address] [place] [address], [place] [address] May, [facility] [address] [id number] [address] [place] [address], [place] [address] May, [facility] [address] [id number] [address] [place] [address], [place] [address] 08 May, 2014 [facility] [address] [id number] [address] [place] [address], [place] [address] May, [facility] [address] [id number] [address] [place] [address], [place] [address] May, [facility] [address] [id number] [address] [place] [address], [place] [address] May, [facility] [address] [id number] [address] [place] [address], [place] [address] May, [facility] [address] [id number] [address] [place] [address], [place] [address] May, [facility] [address] [id number] [address] [place] [address], [place] [address] May, [facility] [address] [id number] [address] [place] [address], [place] [address] May, [facility] [address] [id number] [address] [place] [address], [place] [address] May, [facility] [address] [id number] [address] [place] [address], [place] [address] May, [facility] [address] [id number] [address] [place] [address], [place] [address] May, [facility] [address] [id number] [address] [place] [address], [place] [address] May, [facility] [address] [id number] [address] [place] [address], [place] [address] May, [facility] [address] [id number] [address] [place] [address], [place] [address] May, [facility] [address] [id number] [address] [place] [address], [place] [address] May, [facility] [address] [id number] [address] [place] [address], [place] [address] May, [facility] [address] [id number] [address] [place] [address], [place] [address] May, [facility] [address] [id number] [address] [place] [address], [place] [address] May, [facility] [address] [id number] [address] [place] [address], [place] [address] May, [facility] [address] [id number] [address] [place] [address], [place] [address] Mar, [facility] [address] [id number] [address] [place] [address], [place] [address] Mar, [facility] [address] [id number] [address] [place] [address], [place] [address] Mar, [facility] [address] [id number] [address] [place] [address], [place] [address] Mar, [facility] [address] [id number] [address] [place] [address], [place] [address] Mar, [facility] [address] [id number] [address] [place] [address], [place] [address] Mar, [facility] [address] [id number] [address] [place] [address], [place] [address] Mar, [facility] [address] [id number] [address] [place] [address], [place] [address] Mar, [facility] [address] [id number] [address] [place] [address], [place] [address] 24 Mar, 2014 [facility] [address] [id number] [address] [place] [address], [place] [address] 24 Mar, 2014 [facility] [address] [id number] [address] [place] [address], [place] [address] 08 Mar, 2014 [facility] [address] [id number] [address] [place] [address], [place] [address] 08 Mar, 2014 [facility] [address] [id number] [facility] [place] [address] Mar, [facility] [address] [id number] [facility] [place] [address] Mar, [facility] [address] [id number] [facility] [place] [address] Jan, [facility] [address] [id number] [address] [place] [address], [place] [address] Jan, [facility] [address] [id number] [address] [place] [address], [place] [address] Jan, [facility] [address] [id number] [address] [place] [address], [place] [address] Jan, [facility] [address] [id number] [address] [place] [address], [place] [address] Jan, [facility] [address] [id number] [address] [place] [address], [place] [address] Jan, [facility] [address] [id number] [address] [place] [address], [place] [address] Jan, [facility] [address] [id number] [address] [place] [address], [place] [address] Jan, [facility] [address] [id number] [address] [place] [address], [place] [address] Jan, [facility] [address] [id number] [address] [place] [address], [place] [address] Dec, [facility] [address] [id number] [address] [place] [address], [place] [address] Dec, [facility] [address] [id number] [address] [place] [address], [place] [address] Dec, [facility] [address] [id number] [address] [place] [address], [place] [address] Dec, [facility] [address] [id number] [address] [place] [address], [place] [address] Dec, [facility] [address] [id number] [facility] [place] [address] Dec, [facility] [address] [id number] [address] [place] [address], [place] [address] Dec, [facility] [address] [id number] [address] [place] [address], [place] [address] Dec, [facility] [address] [id number] [address] [place] [address], [place] [address] Dec, [facility] [address] [id number] [address] [place] [address], [place] [address] October, [facility] [address] [id number] [address] [place] [address], [place] [address] October, [facility] [address] [id number] [address] [place] [address], [place] [address] Sep, [facility] [address] [id number] [address] [place] [address], [place] [address] Sep, [facility] [address] [id number] [address] [place] [address], [place] [address] Aug, [facility] [address] [id number] [address] [place] [address], [place] [address] Aug, [facility] [address] [id number] [address] [place] [address], [place] [address] Aug, [facility] [address] [id number] [address] [place] [address], [place] [address] Aug, [facility] [address] [id number] [address] [place] [address], [place] [address] Aug, [facility] [address] [id number] [address] [place] [address], [place] [address] Aug, [facility] [address] [id number] [address] [place] [address], [place] [address] 14 Aug, 2013 [facility] [address] [id number] [address] [place] [address], [place] [address] 07 Aug, 2013 [facility] [address] [id number] [address] [place] [address], [place] [address] Aug, [facility] [address] [id number] [address] [place] [address], [place] [address] Aug, [facility] [address] [id number] [address] [place] [address], [place] [address] Aug, [facility] [address] [id number] [address] [place] [address], [place] [address] Jul, [facility] [address] [id number] [address] [place] [address], [place] [address] Jul, [facility] [address] [id number] [address] [place] [address], [place] [address] May, [facility] [address] [id number] [address] [place] [address], [place] [address] May, [facility] [address] [id number] [address] [place] [address], [place] [address] May, [facility] [address] [id number] [address] [place] [address], [place] [address] May, [facility] [address] [id number] [address] [place] [address], [place] [address] May, [facility] [address] [id number] [address] [place] [address], [place] [address] May, [facility] [address] [id number] [address] [place] [address], [place] [address] May, [facility] [address] [id number] [address] [place] [address], [place] [address] May, [facility] [address] [id number] [address] [place] [address], [place] [address] May, [facility] [address] [id number] [address] [place] [address], [place] [address] May, [facility] [address] [id number] [address] [place] [address], [place] [address] May, [facility] [address] [id number] [address] [place] [address], [place] [address] May, [facility] [address] [id number] [address] [place] [address], [place] [address] May, [facility] [address] [id number] [address] [place] [address] May, [facility] [address] [id number] [address] [place] [address], [place] [address] May, [facility] [address] [id number] [address] [place] [address] May, [facility] [address] [id number] [address] [place] [address], [place] [address] 18 May, 2013 [facility] [address] [id number] [address] [place] [address] 18 May, 2013 [facility] [address] [id number] [address] [place] [address], [place] [address] 16 May, 2013 [facility] [address] [id number] [address] [place] [address] 16 May, 2013 [facility] [address] [id number] [address] [place] [address] 11 May, 2013 [facility] [address] [id number] [address] [place] [address] May, [facility] [address] [id number] [address] [place] [address], [place] [address] May, [facility] [address] [id number] [address] [place] [address] May, [facility] [address] [id number] [address] [place] [address] 09 May, 2013 [facility] [address] [id number] [address] [place] [address], [place] [address] 09 May, 2013 [facility] [address] [id number] [address] [place] [address], [place] [address] 07 May, 2013 [facility] [address] [id number] [address] [place] [address], [place] [address] May, [facility] [address] [id number] [address] [place] [address], [place] [address] 04 May, 2013 [facility] [address] [id number] [address] [place] [address], [place] [address] May, [facility] [address] [id number] [address] [place] [address], [place] [address] Mar, [facility] [address] [id number] [address] [place] [address], [place] [address] Mar, [facility] [address] [id number] [address] [place] [address], [place] [address] Mar, [facility] [address] [id number] [address] [place] [address], [place] [address] Mar, [facility] [address] [id number] [address] [place] [address], [place] [address] 30 Mar, 2013 [facility] [address] [id number] [address] [place] [address], [place] [address] Mar, [facility] [address] [id number] [address] [place] [address], [place] [address] 29 Mar, 2013 [facility] [address] [id number] [address] [place] [address], [place] [address] Mar, [facility] [address] [id number] [address] [place] [address], [place] [address] Mar, [facility] [address] [id number] [address] [place] [address], [place] [address] Mar, [facility] [address] [id number] [address] [place] [address], [place] [address] 28 Mar, 2013 [facility] [address] [id number] [address] [place] [address], [place] [address] 24 Mar, 2013 [facility] [address] [id number] [address] [place] [address], [place] [address] 24 Mar, 2013 [facility] [address] [id number] [address] [place] [address], [place] [address] 23 Mar, 2013 [facility] [address] [id number] [address] [place] [address], [place] [address] 22 Mar, 2013 [facility] [address] [id number] [address] [place] [address], [place] [address] 21 Mar, 2013 [facility] [address] [id number] [address] [place] [address], [place] [address] 21 Mar, 2013 [facility] [address] [id number] [address] [place] [address], [place] [address] 18 Mar, 2013 [facility] [address] [id number] [address] [place] [address], [place] [address] 18 Mar, 2013 [facility] [address] [id number] [address] [place] [address], [place] [address] 18 Mar, 2013 [facility] [address] [id number] [address] [place] [address] 18 Mar, 2013 [facility] [address] [id number] [address] [place] [address] 14 Mar, 2013 [facility] [address] [id number] [address] [place] [address] 14 Mar, 2013 [facility] [address] [id number] [address] [place] [address], [place] [address] 10 Mar, 2013 [facility] [address] [id number] [address] [place] [address] 18 Mar, 2013 [facility] [address] [id number] [address] [place] [address] 12 Mar, 2013 [facility] [address] [id number] [address] [place] [address] Mar, [facility] [address] [id number] [address] [place] [address], [place] [address] Jan, [facility] [address] [id number] [address] [place] [address] October, [facility] [address] [id number] [address] [place] [address], [place] [address] Sep, [facility] [address] [id number] [address] [place] [address] Sep, [facility] [address] [id number] [address] [place] [address], [place] [address] Aug, [facility] [address] [id number] [address] [place] [address], [place] [address] 06 Aug, 2012 [facility] [address] [id number] [address] [place] [address], [place] [address] 04 Aug, 2012 [facility] [address] [id number] [address] [place] [address], [place] [address] Jul, [facility] [address] [id number] [address] [place] [address], [place] [address] May, [facility] [address] [id number] [address] [place] [address], [place] [address] May, [facility] [address] [id number] [address] [place] [address], [place] [address] 18 May, 2012 [facility] [address] [id number] [address] [place] [address] 18 May, 2012 [facility] [address] [id number] [address] [place] [address], [place] [address] 19 Mar, 2012 [facility] [address] [id number] [address] [place] [address] 19 Mar, 2012 [facility] [address] [id number] [address] [place] [address] 16 Mar, 2012 [facility] [address] [id number] [facility] [place] [address] 25 Mar, 2011 [facility] [address] [id number] [address] [place] [address], [place] [address] 19 Mar, 2011 [facility] [address] [id number] [address] [place] [address], [place] [address] 13 Mar, 2011 [facility] [address] [id number] [address] [place] [address], [place] [address] 07 Mar, 2011 [facility] [address] [id number] [address] [place] [address], [place] [address] 30 Jan, 2012 [facility] [address] [id number] [address] [place] [address], [place] [address] 28 Jan, 2012 [facility] [address] [id number] [address] [place] [address], [place] [address] 20 Jan, 2012 [facility] [address] [id number] [address] [place] [address], [place] [address] 14 Jan, 2012 [facility] [address] [id number] [address] [place] [address], [place] [address] Jan, [facility] [address] [id number] [address] [place] [address], [place] [address] Jan, [facility] [address] [id number] [address] [place] [address], [place] [address] Jan, [facility] [address] [id number] [address] [place] [address], [place] [address] Jan, [facility] [address] [id number] [address] [place] [address], [place] [address] Jan, [facility] [address] [id number] [address] [place] [address], [place] [address] Jan, [facility] [address] [id number] [address] [place] [address], [place] [address] Jan, [facility] [address] [id number] [address] [place] [address], [place] [address] Jan, [facility] [address] [id number] [address] [place] [address], [place] [address] Jan, [facility] [address] [id number] [address] [place] [address], [place] [address] Jan, [facility] [address] [id number] [address] [place] [address], [place] [address] Jan, [facility] [address] [id number] [address] [place] [address], [place] [address] Jan, [facility] [address] [id number] [address] [place] [address], [place] [address] Dec, [facility] [address] [id number] [address] [place] [address], [place] [address] Dec, [facility] [address] [id number] [address] [place] [address], [place] [address] Nov, [facility] [address] [id number] [address] [place] [address], [place] [address] Nov, [facility] [address] [id number] [address] [place] [address], [place] [address] October, [facility] [address] [id number] [address] [place] [address], [place] [address] October, [facility] [address] [id number] [address] [place] [address], [place] [address] October, [facility] [address] [id number] [address] [place] [address], [place] [address] Sep, [facility] [address] [id number] [address] [place] [address], [place] [address] Sep, [facility] [address] [id number] [address] [place] [address], [place] [address] Aug, [facility] [address] [id number] [address] [place] [address], [place] [address] Aug, [facility] [address] [id number] [address] [place] [address], [place] [address] 26 Aug, 2011 [facility] [address] [id number] [address] [place] [address], [place] [address] 19 Aug, 2011 [facility] [address] [id number] [address] [place] [address], [place] [address] 12 Aug, 2011 [facility] [address] [id number] [address] [place] [address], [place] [address] 14 Aug, 2011 [facility] [address] [id number] [address] [place] [address], [place] [address] 07 Aug, 2011 [facility] [address] [id number] [address] [place] [address], [place] [address] 27 Jul, 2011 [facility] [address] [id number] [address] [place] [address], [place] [address] Jul, [facility] [address] [id number] [address] [place] [address], [place] [address] Jul, [facility] [address] [id number] [address] [place] [address], [place] [address] May, [facility] [address] [id number] [address] [place] [address], [place] [address] 28 May, 2011 [facility] [address] [id number] [address] [place] [address], [place] [address] May, [facility] [address] [id number] [address] [place] [address], [place] [address] 19 May, 2011 [facility] [address] [id number] [address] [place] [address], [place] [address] May, [facility] [address] [id number] [address] [place] [address], [place] [address] May, [facility] [address] [id number] [address] [place] [address], [place] [address] 22 May, 2011 [facility] [address] [id number] [address] [place] [address], [place] [address] Mar, [facility] [address] [id number] [address] [place] [phone] Mar, [facility] [address] [id number] [address] [place] [phone] Mar, [facility] [address] [id number] [address] [place] [id number] 15 Mar, 2011 [facility] [address] [id number] [address] [place] [phone] Mar, [facility] [address] [id number] [address] [place] [phone] Mar, [facility] [address] [id number] [address] [place] [phone] Jan, [facility] [address] [id number] [address] [place] [phone] May, [facility] [address] [id number] [address] [place] [phone] 16 May, 2009 [facility] [address] [id number] [address] [place] [phone] May, [facility] [address] [id number] [address] [place] [phone] May, [facility] [address] [id number] [address] [place] [phone] May, [facility] [address] [id number] [address] [place] [phone] May, [facility] [address] [id number] [address] [place] [phone] Mar, [facility] [address] [id number] [address] [place] [phone] Sep, IMMUNIZATIONS No Known Immunizations SOCIAL HISTORY Never Assessed REASON FOR VISIT PLAN OF CARE VITAL SIGNS MEDICATIONS Unknown Medications RESULTS No Results PROCEDURES Procedure Date Ordered Result Body Site COMPLETE CBC W/AUTO DIFF WBC Jan 29, 2014 ASSAY THYROID STIM HORMONE Jan 29, 2014 ASSAY OF INSULIN Jan 29, 2014 COMPREHEN METABOLIC PANEL Jan 29, 2014 VENIPUNCT, ROUTINE* Jan 29, 2014 INSTRUCTIONS MEDICATIONS ADMINISTERED No Known Medications [...]
--- OUTSIDE RECORDS SUMMARY | 2019-12-30 23:41 | XMS REPORT ---
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 [address] [id number] [place] [address] Jul, [facility] [place] [facility] [address] [id number] [place] [address] Jul, [facility] [place] [facility] [address] [id number] [place] [address] May, [facility] [place] [facility] [address] [id number] [place] [address] May, [facility] [place] [facility] [address] [id number] [place] [address] May, [facility] [place] [facility] [address] [id number] [place] [address] May, [facility] [place] [facility] [address] [id number] [place] [address] May, [facility] [place] [facility] [address] [id number] [place] [address] May, [facility] [place] [facility] [address] [id number] [place] [address] May, [facility] [place] [facility] [address] [id number] [place] [address] May, [facility] [place] [facility] [address] [facility] [id number] [place] [address] May, [facility] [place] [facility] [address] [facility] [id number] [place] [address] May, [facility] [place] [facility] [address] [id number] [place] [address] May, [facility] [place] [facility] [address] [id number] [place] [address] May, [facility] [place] [facility] [address] [id number] [place] [address] May, [facility] [place] [facility] [address] [id number] [place] [address] May, [facility] [place] [facility] [address] [id number] [place] [address] May, [facility] [place] [facility] [address] [id number] [place] [address] May, [facility] [place] [facility] [address] [id number] [place] [address] 08 May, 2014 [facility] [place] [facility] [address] [id number] [place] [address] May, [facility] [place] [facility] [address] [id number] [place] [address] May, [facility] [place] [facility] [address] [id number] [place] [address] May, [facility] [place] [facility] [address] [id number] [place] [address] May, [facility] [place] [facility] [address] [id number] [place] [address] May, [facility] [place] [facility] [address] [id number] [place] [address] 15 May, 2014 [facility] [place] [facility] [address] [id number] [place] [address] 15 May, 2014 [facility] [place] [facility] [address] [id number] [place] [address] 13 May, 2014 [facility] [place] [facility] [address] [id number] [place] [address] May, [facility] [place] [facility] [address] [id number] [place] [address] May, [facility] [place] [facility] [address] [id number] [place] [address] May, [facility] [place] [facility] [address] [id number] [place] [address] May, [facility] [place] [facility] [address] [id number] [place] [address] May, [facility] [place] [facility] [address] [id number] [place] [address] May, [facility] [place] [facility] [address] [id number] [place] [address] May, [facility] [place] [facility] [address] [id number] [place] [address] May, [facility] [place] [facility] [address] [id number] [place] [address] May, [facility] [place] [facility] [address] [id number] [place] [address] May, [facility] [place] [facility] [address] [id number] [place] [address] Mar, [facility] [place] [facility] [address] [id number] [place] [address] Mar, [facility] [place] [facility] [address] [id number] [place] [address] Mar, [facility] [place] [facility] [address] [id number] [place] [address] Mar, [facility] [place] [facility] [address] [id number] [place] [address] Mar, [facility] [place] [facility] [address] [id number] [place] [address] Mar, [facility] [place] [facility] [address] [facility] [id number] [place] [address] Mar, [facility] [place] [facility] [address] [id number] [place] [address] Mar, [facility] [place] [facility] [address] [id number] [place] [address] Mar, [facility] [place] [facility] [address] [id number] [place] [address] Mar, [facility] [place] [facility] [address] [facility] [id number] [place] [address] Mar, [facility] [place] [facility] [address] [id number] [place] [address] Mar, [facility] [place] [facility] [address] [id number] [place] [address] Mar, [facility] [place] [facility] [address] [id number] [place] [address] Mar, [facility] [place] [facility] [address] [id number] [place] [address] Jan, [facility] [place] [facility] [address] [id number] [place] [address] Jan, [facility] [place] [facility] [address] [id number] [place] [address] Jan, [facility] [place] [facility] [address] [id number] [place] [address] Jan, [facility] [place] [facility] [address] [id number] [place] [address] Jan, [facility] [place] [facility] [address] [id number] [place] [address] Jan, [facility] [place] [facility] [address] [id number] [place] [address] Jan, [facility] [place] [facility] [address] [id number] [place] [address] Jan, [facility] [place] [facility] [address] [id number] [place] [address] Jan, [facility] [place] [facility] [address] [facility] [id number] [facility] [place] [address] Dec, [facility] [place] [facility] [address] [facility] [id number] [place] [address] Dec, [facility] [place] [facility] [address] [id number] [facility] [place] [address] Dec, [facility] [place] [facility] [address] [facility] [id number] [place] [address] Dec, [facility] [place] [facility] [address] [facility] [id number] [place] [address] Dec, [facility] [place] [facility] [address] [facility] [id number] [place] [address] Dec, [facility] [place] [facility] [address] [id number] [facility] [place] [address] Dec, [facility] [place] [facility] [address] [id number] [facility] [place] [address] Dec, [facility] [place] [facility] [address] [facility] [id number] [facility] [place] [address] Dec, [facility] [place] [facility] [address] [id number] [facility] [place] [address] October, [facility] [place] [facility] [address] [id number] [place] [address] October, [facility] [place] [facility] [address] [id number] [place] [address] Sep, [facility] [place] [facility] [address] [facility] [id number] [facility] [place] [address] Sep, [facility] [place] [facility] [address] [id number] [place] [address] Aug, [facility] [place] [facility] [address] [facility] [id number] [facility] [place] [address] Aug, [facility] [place] [facility] [address] [id number] [facility] [place] [address] Aug, [facility] [place] [facility] [address] [id number] [place] [address] 07 Aug, 2013 [facility] [place] [facility] [address] [facility] [id number] [place] [address] Aug, [facility] [place] [facility] [address] [id number] [place] [address] Aug, [facility] [place] [facility] [address] [id number] [place] [address] 14 Aug, 2013 [facility] [place] [facility] [address] [id number] [place] [address] Aug, [facility] [place] [facility] [address] [id number] [place] [address] Aug, [facility] [place] [facility] [address] [id number] [place] [address] Aug, [facility] [place] [facility] [address] [id number] [place] [address] Aug, [facility] [place] [facility] [address] [id number] [place] [address] Jul, [facility] [place] [facility] [address] [id number] [place] [address] Jul, [facility] [place] [facility] [address] [id number] [place] [address] May, [facility] [place] [facility] [address] [id number] [place] [address] May, [facility] [place] [facility] [address] [id number] [place] [address] May, [facility] [place] [facility] [address] [id number] [place] [address] May, [facility] [place] [facility] [address] [id number] [place] [address] May, [facility] [place] [facility] [address] [id number] [place] [address] May, [facility] [address] [id number] [place] [address] May, [facility] [address] [id number] [place] [address] May, [facility] [address] [id number] [place] [address] May, [facility] [address] [id number] [place] [address] May, [facility] [address] [id number] [place] [address] May, [facility] [address] [id number] [place] [address] May, [facility] [address] [id number] [place] [address] May, [facility] [address] [id number] [place] [address] May, [facility] [address] [id number] [place] [address] May, [facility] [address] [id number] [place] [address] May, [facility] [address] [id number] [place] [address] May, [facility] [address] [id number] [place] [address] May, [facility] [address] [id number] [place] [address] 16 May, 2013 [facility] [address] [id number] [place] [address] 16 May, 2013 [facility] [address] [id number] [place] [address] 11 May, 2013 [facility] [address] [id number] [place] [address] May, [facility] [address] [id number] [place] [address] May, [facility] [address] [id number] [place] [address] May, [facility] [address] [id number] [place] [address] May, [facility] [address] [id number] [place] [address] May, [facility] [address] [id number] [place] [address] May, [facility] [address] [id number] [place] [address] May, [facility] [address] [id number] [place] [address] May, [facility] [address] [id number] [place] [address] May, [facility] [address] [id number] [place] [address] Mar, [facility] [address] [id number] [place] [address] Mar, [facility] [address] [id number] [place] [address] Mar, [facility] [address] [id number] [place] [address] Mar, [facility] [address] [id number] [place] [address] 30 Mar, 2013 [facility] [address] [id number] [place] [address] 29 Mar, 2013 [facility] [address] [id number] [place] [address] 29 Mar, 2013 [facility] [id number] [place] [address] 29 Mar, 2013 [facility] [address] [id number] [place] [address] 29 Mar, 2013 [facility] [address] [id number] [place] [address] 28 Mar, 2013 [facility] [address] [facility] [id number] [place] [address] 28 Mar, 2012 [facility] [address] [facility] [id number] [place] [address] 24 Mar, 2012 [facility] [address] [facility] [id number] [place] [address] 24 Mar, 2012 [facility] [address] [id number] [place] [address] 23 Mar, 2012 [facility] [address] [facility] [id number] [place] [address] 22 Mar, 2012 [facility] [address] [id number] [place] [address] 21 Mar, 2012 [facility] [address] [id number] [place] [address] 21 Mar, 2012 [facility] [address] [id number] [place] [address] 18 Mar, 2012 [facility] [address] [id number] [place] [address] 18 Mar, 2012 [facility] [address] [id number] [place] [address] 18 Mar, 2012 [facility] [address] [id number] [place] [address] 18 Mar, 2012 [facility] [address] [id number] [place] [address] 14 Mar, 2012 [facility] [address] [facility] [id number] [place] [address] 14 Mar, 2012 [facility] [address] [facility] [id number] [place] [address] 10 Mar, 2012 [facility] [address] [facility] [id number] [place] [address] 18 Mar, 2012 [facility] [address] [id number] [place] [address] 12 Mar, 2012 [facility] [address] [id number] [place] [address] Mar, [facility] [address] [id number] [place] [address] Jan, [facility] [address] [id number] [place] [address] October, [facility] [address] [id number] [place] [address] Sep, [facility] [address] [id number] [place] [address] Sep, [facility] [address] [id number] [place] [address] Aug, [facility] [address] [id number] [place] [address] Aug, [facility] [address] [id number] [place] [address] Aug, [facility] [address] [id number] [place] [address] Jul, [facility] [address] [id number] [place] [address] May, [facility] [id number] [place] [address] May, [facility] [address] [id number] [place] [address] 18 May, 2012 [facility] [id number] [place] [address] 18 May, 2012 [facility] [address] [id number] [place] [address] Mar, [facility] [address] [id number] [place] [address] 19 Mar, 2012 [facility] [address] [id number] [place] [address] 16 Mar, 2012 [facility] [address] [id number] [place] [address] 25 Mar, 2012 [facility] [address] [id number] [facility] [place] [address] 19 Mar, 2011 [facility] [address] [id number] [facility] [place] [address] 13 Mar, 2011 [facility] [address] [facility] [id number] [place] [address] 07 Mar, 2011 [facility] [address] [id number] [place] [address] 30 Jan, 2011 [facility] [address] [id number] [place] [address] 28 Jan, 2011 [facility] [address] [id number] [place] [address] Jan, 2011 [facility] [address] [id number] [place] [address] 14 Jan, 2012 [facility] [address] [id number] [place] [address] Jan, 2011 [facility] [address] [id number] [place] [address] Jan, 2011 [facility] [address] [id number] [place] [address] Jan, [facility] [address] [id number] [place] [address] Jan, [facility] [address] [id number] [place] [address] Jan, [facility] [address] [id number] [place] [address] Jan, [facility] [address] [id number] [place] [address] Jan, [facility] [address] [id number] [place] [address] Jan, [facility] [address] [id number] [place] [address] Jan, [facility] [address] [id number] [place] [address] Jan, [facility] [address] [id number] [place] [address] Jan, [facility] [address] [id number] [place] [address] Jan, [facility] [address] [id number] [place] [address] Dec, [facility] [address] [id number] [place] [address] Dec, [facility] [address] [id number] [place] [address] Nov, [facility] [address] [id number] [place] [address] Nov, [facility] [address] [id number] [place] [address] October, [facility] [address] [id number] [place] [address] October, [facility] [address] [id number] [place] [address] October, [facility] [address] [id number] [place] [address] Sep, [facility] [address] [id number] [place] [address] Sep, [facility] [address] [id number] [place] [address] Aug, [facility] [address] [id number] [place] [address] Aug, [facility] [address] [id number] [place] [address] Aug, [facility] [address] [id number] [place] [address] Aug, [facility] [address] [id number] [place] [address] Aug, [facility] [address] [id number] [place] [address] 14 Aug, 2011 [facility] [address] [id number] [place] [address] 07 Aug, 2011 [facility] [address] [id number] [place] [address] Jul, [facility] [address] [id number] [place] [address] Jul, [facility] [address] [id number] [place] [address] Jul, [facility] [address] [id number] [place] [address] May, [facility] [address] [id number] [place] [address] May, [facility] [address] [id number] [place] [address] May, [facility] [address] [id number] [place] [address] May, [facility] [address] [id number] [place] [address] May, [facility] [address] [id number] [place] [address] May, [facility] [address] [id number] [place] [address] May, [facility] [address] [id number] [place] [address] Mar, [facility] [address] [id number] [place] [address] Mar, [facility] [address] [id number] [place] [address] Mar, [facility] [address] [id number] [place] [address] 15 Mar, 2011 [facility] [address] [id number] [place] [address] Mar, [facility] [address] [id number] [place] [address] 13 Mar, 2010 [facility] [id number] [place] [address] Jan, [facility] [address] [id number] [place] [address] May, [facility] [id number] [place] [address] May, [facility] [address] [address] May, [facility] [address] [address] May, [facility] [address] [address] May, [facility] [id number] [place] [address] May, [facility] [id number] [place] [address] Mar, [facility] [address] [id number] [place] [address] Sep, IMMUNIZATIONS No Known Immunizations SOCIAL HISTORY [...]
--- OUTSIDE RECORDS SUMMARY | 2019-12-30 23:41 | XMS REPORT ---
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 [place] [address] Jul, [facility] [place] [facility] [address] [id number] [place] [address] May, [facility] [place] [facility] [address] [id number] [place] [address] May, [facility] [place] [facility] [address] [id number] [place] [address] May, [facility] [place] [facility] [address] [id number] [place] [address] May, [facility] [place] [facility] [address] [id number] [place] [address] May, [facility] [place] [facility] [address] [id number] [place] [address] May, [facility] [place] [facility] [address] [id number] [place] [address] May, [facility] [place] [facility] [address] [id number] [place] [address] May, [facility] [place] [facility] [address] [facility] [id number] [place] [address] May, [facility] [place] [facility] [address] [facility] [id number] [place] [address] May, [facility] [place] [facility] [address] [id number] [place] [address] May, [facility] [place] [facility] [address] [id number] [place] [address] May, [facility] [place] [facility] [address] [id number] [place] [address] May, [facility] [place] [facility] [address] [id number] [place] [address] May, [facility] [place] [facility] [address] [id number] [place] [address] May, [facility] [place] [facility] [address] [id number] [place] [address] May, [facility] [place] [facility] [address] [id number] [place] [address] 08 May, 2014 [facility] [place] [facility] [address] [id number] [place] [address] May, [facility] [place] [facility] [address] [id number] [place] [address] May, [facility] [place] [facility] [address] [id number] [place] [address] May, [facility] [place] [facility] [address] [id number] [place] [address] May, [facility] [place] [facility] [address] [id number] [place] [address] May, [facility] [place] [facility] [address] [id number] [place] [address] 15 May, 2014 [facility] [place] [facility] [address] [id number] [place] [address] 15 May, 2014 [facility] [place] [facility] [address] [id number] [place] [address] 13 May, 2014 [facility] [place] [facility] [address] [id number] [place] [address] May, [facility] [place] [facility] [address] [id number] [place] [address] May, [facility] [place] [facility] [address] [id number] [place] [address] May, [facility] [place] [facility] [address] [id number] [place] [address] May, [facility] [place] [facility] [address] [id number] [place] [address] May, [facility] [place] [facility] [address] [id number] [place] [address] May, [facility] [place] [facility] [address] [id number] [place] [address] May, [facility] [place] [facility] [address] [id number] [place] [address] May, [facility] [place] [facility] [address] [id number] [place] [address] May, [facility] [place] [facility] [address] [id number] [place] [address] May, [facility] [place] [facility] [address] [id number] [place] [address] Mar, [facility] [place] [facility] [address] [id number] [place] [address] Mar, [facility] [place] [facility] [address] [id number] [place] [address] Mar, [facility] [place] [facility] [address] [id number] [place] [address] Mar, [facility] [place] [facility] [address] [id number] [place] [address] Mar, [facility] [place] [facility] [address] [id number] [place] [address] Mar, [facility] [place] [facility] [address] [facility] [id number] [place] [address] Mar, [facility] [place] [facility] [address] [id number] [place] [address] Mar, [facility] [place] [facility] [address] [id number] [place] [address] Mar, [facility] [place] [facility] [address] [id number] [place] [address] Mar, [facility] [place] [facility] [address] [facility] [id number] [place] [address] Mar, [facility] [place] [facility] [address] [id number] [place] [address] Mar, [facility] [place] [facility] [address] [id number] [place] [address] Mar, [facility] [place] [facility] [address] [id number] [place] [address] Mar, [facility] [place] [facility] [address] [id number] [place] [address] Jan, [facility] [place] [facility] [address] [id number] [place] [address] Jan, [facility] [place] [facility] [address] [id number] [place] [address] Jan, [facility] [place] [facility] [address] [id number] [place] [address] Jan, [facility] [place] [facility] [address] [id number] [place] [address] Jan, [facility] [place] [facility] [address] [id number] [place] [address] Jan, [facility] [place] [facility] [address] [id number] [place] [address] Jan, [facility] [place] [facility] [address] [id number] [place] [address] Jan, [facility] [place] [facility] [address] [id number] [place] [address] Jan, [facility] [place] [facility] [address] [facility] [id number] [facility] [place] [address] Dec, [facility] [place] [facility] [address] [facility] [id number] [place] [address] Dec, [facility] [place] [facility] [address] [id number] [facility] [place] [address] Dec, [facility] [place] [facility] [address] [facility] [id number] [place] [address] Dec, [facility] [place] [facility] [address] [facility] [id number] [place] [address] Dec, [facility] [place] [facility] [address] [facility] [id number] [place] [address] Dec, [facility] [place] [facility] [address] [id number] [facility] [place] [address] Dec, [facility] [place] [facility] [address] [id number] [facility] [place] [address] Dec, [facility] [place] [facility] [address] [facility] [id number] [facility] [place] [address] Dec, [facility] [place] [facility] [address] [id number] [facility] [place] [address] October, [facility] [place] [facility] [address] [id number] [place] [address] October, [facility] [place] [facility] [address] [id number] [place] [address] Sep, [facility] [place] [facility] [address] [facility] [id number] [facility] [place] [address] Sep, [facility] [place] [facility] [address] [id number] [place] [address] Aug, [facility] [place] [facility] [address] [facility] [id number] [facility] [place] [address] Aug, [facility] [place] [facility] [address] [id number] [facility] [place] [address] Aug, [facility] [place] [facility] [address] [id number] [place] [address] 07 Aug, 2013 [facility] [place] [facility] [address] [facility] [id number] [place] [address] Aug, [facility] [place] [facility] [address] [id number] [place] [address] Aug, [facility] [place] [facility] [address] [id number] [place] [address] 14 Aug, 2013 [facility] [place] [facility] [address] [id number] [place] [address] Aug, [facility] [place] [facility] [address] [id number] [place] [address] Aug, [facility] [place] [facility] [address] [id number] [place] [address] Aug, [facility] [place] [facility] [address] [id number] [place] [address] Aug, [facility] [place] [facility] [address] [id number] [place] [address] Jul, [facility] [place] [facility] [address] [id number] [place] [address] Jul, [facility] [place] [facility] [address] [id number] [place] [address] May, [facility] [place] [facility] [address] [id number] [place] [address] May, [facility] [place] [facility] [address] [id number] [place] [address] May, [facility] [place] [facility] [address] [id number] [place] [address] May, [facility] [place] [facility] [address] [id number] [place] [address] May, [facility] [place] [facility] [address] [id number] [place] [address] May, [facility] [place] [facility] [address] [id number] [place] [address] May, [facility] [place] [facility] [address] [id number] [place] [address] May, [facility] [place] [facility] [address] [id number] [place] [address] May, [facility] [place] [facility] [address] [id number] [place] [address] May, [facility] [place] [facility] [address] [id number] [place] [address] May, [facility] [place] [facility] [address] [id number] [place] [address] May, [facility] [place] [facility] [address] [id number] [place] [address] May, [facility] [place] [facility] [address] [id number] [place] [address] May, [facility] [place] [facility] [address] [id number] [place] [address] May, [facility] [place] [facility] [address] [id number] [place] [address] May, [facility] [place] [facility] [address] [id number] [place] [address] May, [facility] [place] [facility] [address] [id number] [place] [address] May, [facility] [place] [facility] [address] [id number] [place] [address] 16 May, 2013 [facility] [place] [facility] [address] [id number] [place] [address] 16 May, 2013 [facility] [place] [facility] [address] [id number] [place] [address] 11 May, 2013 [facility] [place] [facility] [address] [id number] [place] [address] May, [facility] [place] [facility] [address] [id number] [place] [address] May, [facility] [place] [facility] [address] [id number] [place] [address] May, [facility] [place] [facility] [address] [id number] [place] [address] May, [facility] [address] [id number] [place] [address] May, [facility] [address] [id number] [place] [address] May, [facility] [address] [id number] [place] [address] May, [facility] [address] [id number] [place] [address] May, [facility] [address] [id number] [place] [address] May, [facility] [address] [id number] [place] [address] Mar, [facility] [address] [id number] [place] [address] Mar, [facility] [address] [id number] [place] [address] Mar, [facility] [address] [id number] [place] [address] Mar, [facility] [address] [id number] [place] [address] 30 Mar, 2013 [facility] [address] [id number] [place] [address] 29 Mar, 2013 [facility] [address] [id number] [place] [address] 29 Mar, 2013 [facility] [id number] [place] [address] 29 Mar, 2013 [facility] [address] [id number] [place] [address] 29 Mar, 2013 [facility] [address] [id number] [place] [address] 28 Mar, 2013 [facility] [address] [facility] [id number] [place] [address] 28 Mar, 2012 [facility] [address] [facility] [id number] [place] [address] 24 Mar, 2012 [facility] [address] [facility] [id number] [place] [address] 24 Mar, 2012 [facility] [address] [id number] [place] [address] 23 Mar, 2012 [facility] [address] [facility] [id number] [place] [address] 22 Mar, 2012 [facility] [address] [id number] [place] [address] 21 Mar, 2012 [facility] [address] [id number] [place] [address] 21 Mar, 2012 [facility] [address] [id number] [place] [address] 18 Mar, 2012 [facility] [address] [id number] [place] [address] 18 Mar, 2012 [facility] [address] [id number] [place] [address] 18 Mar, 2012 [facility] [address] [id number] [place] [address] 18 Mar, 2012 [facility] [address] [id number] [place] [address] 14 Mar, 2012 [facility] [address] [facility] [id number] [place] [address] 14 Mar, 2012 [facility] [address] [facility] [id number] [place] [address] 10 Mar, 2012 [facility] [address] [facility] [id number] [place] [address] 18 Mar, 2012 [facility] [address] [id number] [place] [address] 12 Mar, 2012 [facility] [address] [id number] [place] [address] Mar, [facility] [address] [id number] [place] [address] Jan, [facility] [address] [id number] [place] [address] October, [facility] [address] [id number] [place] [address] Sep, [facility] [address] [id number] [place] [address] Sep, [facility] [address] [id number] [place] [address] Aug, [facility] [address] [id number] [place] [address] Aug, [facility] [address] [id number] [place] [address] Aug, [facility] [address] [id number] [place] [address] Jul, [facility] [address] [id number] [place] [address] May, [facility] [id number] [place] [address] May, [facility] [address] [id number] [place] [address] 18 May, 2012 [facility] [id number] [place] [address] 18 May, 2012 [facility] [address] [id number] [place] [address] Mar, [facility] [address] [id number] [place] [address] 19 Mar, 2012 [facility] [address] [id number] [place] [address] 16 Mar, 2012 [facility] [address] [id number] [place] [address] 25 Mar, 2012 [facility] [address] [address] [id number] [facility] [place] [address] 19 Mar, 2011 [facility] [address] [id number] [facility] [place] [address] 13 Mar, 2011 [facility] [address] [facility] [id number] [place] [address] 07 Mar, 2011 [facility] [address] [id number] [place] [address] 30 Jan, 2011 [facility] [address] [id number] [place] [address] 28 Jan, 2011 [facility] [address] [id number] [place] [address] Jan, 2011 [facility] [address] [id number] [place] [address] 14 Jan, 2012 [facility] [address] [id number] [place] [address] Jan, 2011 [facility] [address] [id number] [place] [address] Jan, 2011 [facility] [address] [id number] [place] [address] Jan, [facility] [address] [id number] [place] [address] Jan, [facility] [address] [id number] [place] [address] Jan, [facility] [address] [id number] [place] [address] Jan, [facility] [address] [id number] [place] [address] Jan, [facility] [address] [id number] [place] [address] Jan, [facility] [address] [id number] [place] [address] Jan, [facility] [address] [id number] [place] [address] Jan, [facility] [address] [id number] [place] [address] Jan, [facility] [address] [id number] [place] [address] Jan, [facility] [address] [id number] [place] [address] Dec, [facility] [address] [id number] [place] [address] Dec, [facility] [address] [id number] [place] [address] Nov, [facility] [address] [id number] [place] [address] Nov, [facility] [address] [id number] [place] [address] October, [facility] [address] [id number] [place] [address] October, [facility] [address] [id number] [place] [address] October, [facility] [address] [id number] [place] [address] Sep, [facility] [address] [id number] [place] [address] Sep, [facility] [address] [id number] [place] [address] Aug, [facility] [address] [id number] [place] [address] Aug, [facility] [address] [id number] [place] [address] Aug, [facility] [address] [id number] [place] [address] Aug, [facility] [address] [id number] [place] [address] Aug, [facility] [address] [id number] [place] [address] 14 Aug, 2011 [facility] [address] [id number] [place] [address] 07 Aug, 2011 [facility] [address] [id number] [place] [address] Jul, [facility] [address] [id number] [place] [address] Jul, [facility] [address] [id number] [place] [address] Jul, [facility] [address] [id number] [place] [address] May, [facility] [address] [id number] [place] [address] May, [facility] [address] [id number] [place] [address] May, [facility] [address] [id number] [place] [address] May, [facility] [address] [id number] [place] [address] May, [facility] [address] [id number] [place] [address] May, [facility] [address] [id number] [place] [address] May, [facility] [address] [id number] [place] [address] Mar, [facility] [address] [id number] [place] [address] Mar, [facility] [address] [id number] [place] [address] Mar, [facility] [address] [id number] [place] [address] 15 Mar, 2011 [facility] [address] [id number] [place] [address] Mar, [facility] [address] [id number] [place] [address] 13 Mar, 2010 [facility] [id number] [place] [address] Jan, [facility] [address] [id number] [place] [address] May, [facility] [id number] [place] [address] May, [facility] [address] [address] May, [facility] [address] [address] May, [facility] [address] [address] May, [facility] [id number] [place] [address] May, [facility] [id number] [place] [address] Mar, [facility] [address] [id number] [place] [address] Sep, IMMUNIZATIONS No Known Immunizations SOCIAL HISTORY [...]
[2019-12-30 23:42] LABS: BASOPHILS % (AUTO) 0 % (0-10); EOSINOPHILS # (AUTO) 0.3 10^3/uL (0.0-0.3); EOSINOPHILS % (AUTO) 4 % (0-10); HEMATOCRIT 39 % (35-52); HEMOGLOBIN 13.6 G/DL (11.5-16.0); LYMPHOCYTES % (AUTO) 34 % (12-44); MEAN CORPUSCULAR HEMOGLOBIN 33 PG (25-34); MEAN CORPUSCULAR HGB CONC 35 G/DL (32-36); MEAN CORPUSCULAR VOLUME 95 FL (80-99); MEAN PLATELET VOLUME 9.2 FL (7.4-10.4); MONOCYTES # (AUTO) 0.9 X 10^3 (0.0-1.0); MONOCYTES % (AUTO) 10 % (0-12); NEUTROPHILS # (AUTO) 4.5 X 10^3 (1.8-7.8); NEUTROPHILS % (AUTO) 52 % (42-75); PLATELET COUNT 365 10^3/uL (130-400); RED CELL DISTRIBUTION WIDTH 12.4 % (10.0-14.5); WHITE BLOOD COUNT 8.6 10^3/uL (4.3-11.0)
--- OUTSIDE RECORDS SUMMARY | 2019-12-30 23:42 | XMS REPORT ---
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 [facility] [address] [id number] [place] [address] Jul, [facility] [place] [facility] [address] [id number] [place] [address] Jul, [facility] [place] [facility] [address] [id number] [place] [address] Jul, [facility] [place] [facility] [address] [id number] [place] [address] May, [facility] [place] [facility] [address] [id number] [place] [address] May, [facility] [place] [facility] [address] [id number] [place] [address] May, [facility] [place] [facility] [address] [id number] [place] [address] May, [facility] [place] [facility] [address] [id number] [place] [address] May, [facility] [place] [facility] [address] [id number] [place] [address] May, [facility] [place] [facility] [address] [id number] [place] [address] May, [facility] [place] [facility] [address] [id number] [place] [address] May, [facility] [place] [facility] [address] [id number] [place] [address] May, [facility] [place] [facility] [address] [id number] [place] [address] May, [facility] [place] [facility] [address] [id number] [place] [address] 17 May, 2014 [facility] [place] [facility] [address] [id number] [place] [address] May, [facility] [place] [facility] [address] [id number] [place] [address] May, [facility] [place] [facility] [address] [id number] [place] [address] May, [facility] [place] [facility] [address] [id number] [place] [address] May, [facility] [place] [facility] [address] [facility] [id number] [place] [address] May, [facility] [place] [facility] [address] [id number] [place] [address] May, [facility] [place] [facility] [address] [id number] [place] [address] May, [facility] [place] [facility] [address] [id number] [place] [address] May, [facility] [place] [facility] [address] [id number] [place] [address] May, [facility] [place] [facility] [address] [id number] [place] [address] May, [facility] [place] [facility] [address] [id number] [place] [address] May, [facility] [place] [facility] [address] [id number] [place] [address] 15 May, 2014 [facility] [place] [facility] [address] [id number] [place] [address] 15 May, 2014 [facility] [place] [facility] [address] [id number] [place] [address] May, [facility] [place] [facility] [address] [id number] [place] [address] May, [facility] [place] [facility] [address] [id number] [place] [address] May, [facility] [place] [facility] [address] [id number] [place] [address] May, [facility] [place] [facility] [address] [facility] [id number] [place] [address] May, [facility] [place] [facility] [address] [id number] [place] [address] May, [facility] [place] [facility] [address] [id number] [place] [address] May, [facility] [place] [facility] [address] [id number] [place] [address] May, [facility] [place] [facility] [address] [id number] [place] [address] May, [facility] [place] [facility] [address] [id number] [place] [address] May, [facility] [place] [facility] [address] [id number] [place] [address] May, [facility] [place] [facility] [address] [id number] [place] [address] Mar, [facility] [place] [facility] [address] [id number] [place] [address] Mar, [facility] [place] [facility] [address] [id number] [place] [address] Mar, [facility] [place] [facility] [address] [id number] [place] [address] Mar, [facility] [place] [facility] [address] [id number] [place] [address] Mar, [facility] [place] [facility] [address] [id number] [place] [address] Mar, [facility] [place] [facility] [address] [id number] [place] [address] Mar, [facility] [place] [facility] [address] [id number] [place] [address] Mar, [facility] [place] [facility] [address] [id number] [place] [address] Mar, [facility] [place] [facility] [address] [id number] [place] [address] Mar, [facility] [place] [facility] [address] [id number] [place] [address] Mar, [facility] [place] [facility] [address] [facility] [id number] [place] [address] Mar, [facility] [place] [facility] [address] [id number] [place] [address] Mar, 2013 [facility] [place] [facility] [address] [facility] [id number] [place] [address] Mar, [facility] [place] [facility] [address] [id number] [place] [address] Jan, [facility] [place] [facility] [address] [id number] [place] [address] Jan, [facility] [place] [facility] [address] [id number] [place] [address] Jan, [facility] [place] [facility] [address] [id number] [place] [address] Jan, [facility] [place] [facility] [address] [id number] [place] [address] Jan, [facility] [place] [facility] [address] [id number] [place] [address] Jan, [facility] [place] [facility] [address] [id number] [place] [address] Jan, [facility] [place] [facility] [address] [id number] [place] [address] Jan, [facility] [place] [facility] [address] [facility] [id number] [place] [address] Jan, [facility] [place] [facility] [address] [id number] [place] [address] Dec, [facility] [place] [facility] [address] [id number] [place] [address] Dec, [facility] [place] [facility] [address] [id number] [place] [address] Dec, [facility] [place] [facility] [address] [facility] [id number] [place] [address] Dec, [facility] [place] [facility] [address] [facility] [id number] [place] [address] Dec, [facility] [place] [facility] [address] [facility] [id number] [place] [address] Dec, [facility] [place] [facility] [address] [facility] [id number] [place] [address] Dec, [facility] [place] [facility] [address] [facility] [id number] [place] [address] Dec, [facility] [place] [facility] [address] [facility] [id number] [place] [address] Dec, [facility] [place] [facility] [address] [id number] [place] [address] October, [facility] [place] [facility] [address] [id number] [place] [address] October, [facility] [place] [facility] [address] [facility] [id number] [place] [address] Sep, [facility] [place] [facility] [address] [id number] [place] [address] Sep, [facility] [place] [facility] [address] [id number] [place] [address] Aug, [facility] [place] [facility] [address] [id number] [place] [address] Aug, [facility] [place] [facility] [address] [facility] [id number] [place] [address] Aug, [facility] [place] [facility] [address] [facility] [id number] [place] [address] Aug, [facility] [place] [facility] [address] [facility] [id number] [place] [address] Aug, [facility] [place] [facility] [address] [id number] [place] [address] Aug, [facility] [place] [facility] [address] [id number] [place] [address] 14 Aug, 2013 [facility] [place] [facility] [address] [id number] [place] [address] Aug, [facility] [place] [facility] [address] [id number] [place] [address] Aug, [facility] [place] [facility] [address] [id number] [place] [address] Aug, [facility] [place] [facility] [address] [id number] [place] [address] Aug, [facility] [place] [facility] [address] [id number] [place] [address] Jul, [facility] [place] [facility] [address] [id number] [place] [address] Jul, [facility] [place] [facility] [id number] [place] [address] May, [facility] [place] [facility] [address] [id number] [place] [address] May, [facility] [place] [facility] [address] [id number] [place] [address] May, [facility] [place] [facility] [address] [id number] [place] [address] May, [facility] [place] [facility] [address] [id number] [place] [address] May, [facility] [place] [facility] [address] [id number] [place] [address] May, [facility] [place] [facility] [address] [id number] [place] [address] May, [facility] [place] [facility] [id number] [place] [address] May, [facility] [place] [facility] [address] [id number] [place] [address] May, [facility] [place] [facility] [id number] [place] [address] May, [facility] [place] [facility] [address] [id number] [place] [address] May, [facility] [place] [facility] [address] [id number] [place] [address] May, [facility] [place] [facility] [address] [id number] [place] [address] May, [facility] [place] [facility] [address] [id number] [place] [address] May, [facility] [place] [facility] [address] [id number] [place] [address] May, [facility] [place] [facility] [address] [id number] [place] [address] May, [facility] [place] [facility] [address] [id number] [place] [address] May, [facility] [place] [facility] [address] [id number] [place] [address] May, [facility] [place] [facility] [address] [id number] [place] [address] May, [facility] [place] [facility] [address] [id number] [place] [address] 16 May, 2013 [facility] [place] [facility] [address] [id number] [place] [address] May, [facility] [place] [facility] [address] [id number] [place] [address] May, [facility] [place] [facility] [address] [id number] [place] [address] May, [facility] [place] [facility] [address] [id number] [place] [address] May, [facility] [place] [facility] [address] [id number] [place] [address] May, [facility] [place] [facility] [address] [id number] [place] [address] May, [facility] [address] [id number] [place] [address] 07 May, 2012 [facility] [address] [facility] [id number] [place] [address] 07 May, 2013 [facility] [address] [facility] [id number] [place] [address] 04 May, 2013 [facility] [address] [id number] [place] [address] May, [facility] [address] [id number] [place] [address] Mar, 2012 [facility] [address] [facility] [id number] [place] [address] Mar, [facility] [address] [id number] [place] [address] Mar, [facility] [address] [id number] [place] [address] Mar, [facility] [address] [id number] [place] [address] 30 Mar, 2013 [facility] [address] [id number] [place] [address] Mar, [facility] [address] [id number] [place] [address] Mar, [facility] [address] [id number] [place] [address] Mar, [facility] [address] [id number] [place] [address] Mar, 2012 [facility] [address] [facility] [id number] [place] [address] Mar, [facility] [address] [id number] [place] [address] Mar, [facility] [address] [id number] [place] [address] Mar, [facility] [address] [id number] [place] [address] 24 Mar, 2012 [facility] [address] [facility] [id number] [place] [address] 23 Mar, 2013 [facility] [address] [facility] [id number] [place] [address] 22 Mar, 2013 [facility] [address] [facility] [id number] [place] [address] 21 Mar, 2013 [facility] [address] [id number] [place] [address] 21 Mar, 2013 [facility] [address] [id number] [place] [address] 18 Mar, 2013 [facility] [address] [id number] [place] [address] 18 Mar, 2013 [facility] [address] [id number] [place] [address] 18 Mar, 2013 [facility] [address] [id number] [place] [address] 18 Mar, 2013 [facility] [address] [id number] [place] [address] 14 Mar, 2013 [facility] [address] [id number] [place] [address] 14 Mar, 2013 [facility] [address] [id number] [place] [address] 10 Mar, 2013 [facility] [address] [id number] [place] [address] 18 Mar, 2013 [facility] [address] [id number] [place] [address] 12 Mar, 2013 [facility] [address] [facility] [id number] [place] [address] 11 Mar, 2013 [facility] [address] [id number] [place] [address] Jan, [facility] [address] [id number] [place] [address] October, [facility] [address] [id number] [place] [address] Sep, [facility] [address] [id number] [place] [address] 15 Sep, 2012 [facility] [address] [id number] [place] [address] 07 Aug, 2012 [facility] [address] [id number] [place] [address] 06 Aug, 2012 [facility] [address] [id number] [place] [address] 04 Aug, 2012 [facility] [address] [id number] [place] [address] 17 Jul, 2012 [facility] [address] [id number] [place] [address] 19 May, 2012 [facility] [address] [id number] [place] [address] 19 May, 2012 [facility] [id number] [place] [address] 18 May, 2012 [facility] [address] [id number] [place] [address] 18 May, 2012 [facility] [id number] [place] [address] 19 Mar, 2012 [facility] [facility] [address] [id number] [place] [address] 19 Mar, 2012 [facility] [id number] [place] [address] 16 Mar, 2012 [facility] [address] [id number] [place] [address] 25 Mar, 2011 [facility] [address] [id number] [place] [address] 19 Sep, 2011 [facility] [address] [id number] [place] [address] 13 Sep, 2011 [facility] [address] [id number] [place] [address] 07 Sep, 2011 [facility] [address] [id number] [place] [address] Jan, 2011 [facility] [address] [id number] [place] [address] Jan, [facility] [address] [facility] [id number] [place] [address] Jan, [facility] [address] [id number] [place] [address] Jan, [facility] [address] [id number] [place] [address] Jan, [facility] [address] [id number] [place] [address] Jan, [facility] [address] [id number] [place] [address] Jan, [facility] [address] [id number] [place] [address] Jan, [facility] [address] [id number] [place] [address] Jan, [facility] [address] [id number] [place] [address] Jan, [facility] [address] [id number] [place] [address] Jan, [facility] [address] [id number] [place] [address] Jan, [facility] [address] [id number] [place] [address] Jan, [facility] [address] [id number] [place] [address] Jan, [facility] [address] [id number] [place] [address] Jan, [facility] [address] [id number] [place] [address] Jan, [facility] [address] [id number] [place] [address] Dec, [facility] [address] [id number] [place] [address] Dec, [facility] [address] [id number] [place] [address] Nov, [facility] [address] [id number] [place] [address] Nov, [facility] [address] [id number] [place] [address] October, [facility] [address] [id number] [place] [address] October, [facility] [address] [id number] [place] [address] October, [facility] [address] [id number] [place] [address] Sep, [facility] [address] [id number] [place] [address] Sep, [facility] [address] [id number] [place] [address] Aug, [facility] [address] [id number] [place] [address] Aug, [facility] [address] [id number] [place] [address] Aug, [facility] [address] [id number] [place] [address] Aug, [facility] [address] [id number] [place] [address] Aug, [facility] [address] [id number] [place] [address] Aug, [facility] [address] [id number] [place] [address] 07 Aug, 2011 [facility] [address] [id number] [place] [address] Jul, [facility] [address] [id number] [place] [address] Jul, [facility] [address] [id number] [place] [address] Jul, [facility] [address] [id number] [place] [address] May, [facility] [address] [id number] [place] [address] May, [facility] [address] [id number] [place] [address] May, [facility] [address] [facility] [id number] [place] [address] May, [facility] [address] [id number] [place] [address] May, [facility] [address] [id number] [place] [address] May, [facility] [address] [id number] [place] [address] May, [facility] [address] [id number] [place] [address] Mar, [facility] [address] [id number] [place] [address] Mar, [facility] [address] [id number] [place] [address] Mar, [facility] [address] [id number] [place] [address] 15 Mar, 2011 [facility] [address] [id number] [place] [address] Mar, [facility] [address] [id number] [place] [address] 13 Mar, 2010 [facility] [address] [id number] [place] [address] Jan, [facility] [address] [id number] [place] [address] 31 May, 2009 [facility] [address] [id number] [place] [address] May, [facility] [address] [id number] [place] [address] May, [facility] [address] [id number] [place] [address] May, [facility] [address] [id number] [place] [address] May, [facility] [address] [id number] [place] [address] May, [facility] [address] [id number] [place] [address] Mar, [facility] [address] [id number] [place] [address] Sep, IMMUNIZATIONS No Known Immunizations SOCIAL HISTORY [...]
--- OUTSIDE RECORDS SUMMARY | 2019-12-30 23:42 | XMS REPORT ---
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 [facility] [address] [id number] [place] [address] Jul, [facility] [place] [facility] [address] [id number] [place] [address] May, [facility] [place] [facility] [address] [id number] [place] [address] May, [facility] [place] [facility] [address] [id number] [place] [address] May, [facility] [place] [facility] [address] [id number] [place] [address] May, [facility] [place] [facility] [address] [id number] [place] [address] May, [facility] [place] [facility] [address] [id number] [place] [address] May, [facility] [place] [facility] [address] [id number] [place] [address] May, [facility] [place] [facility] [address] [id number] [place] [address] May, [facility] [place] [facility] [address] [id number] [place] [address] May, [facility] [place] [facility] [address] [id number] [place] [address] May, [facility] [place] [facility] [address] [id number] [place] [address] 17 May, 2014 [facility] [place] [facility] [address] [id number] [place] [address] May, [facility] [place] [facility] [address] [id number] [place] [address] May, [facility] [place] [facility] [address] [id number] [place] [address] May, [facility] [place] [facility] [address] [id number] [place] [address] May, [facility] [place] [facility] [address] [facility] [id number] [place] [address] May, [facility] [place] [facility] [address] [id number] [place] [address] May, [facility] [place] [facility] [address] [id number] [place] [address] May, [facility] [place] [facility] [address] [id number] [place] [address] May, [facility] [place] [facility] [address] [id number] [place] [address] May, [facility] [place] [facility] [address] [id number] [place] [address] May, [facility] [place] [facility] [address] [id number] [place] [address] May, [facility] [place] [facility] [address] [id number] [place] [address] 15 May, 2014 [facility] [place] [facility] [address] [id number] [place] [address] 15 May, 2014 [facility] [place] [facility] [address] [id number] [place] [address] May, [facility] [place] [facility] [address] [id number] [place] [address] May, [facility] [place] [facility] [address] [id number] [place] [address] May, [facility] [place] [facility] [address] [id number] [place] [address] May, [facility] [place] [facility] [address] [facility] [id number] [place] [address] May, [facility] [place] [facility] [address] [id number] [place] [address] May, [facility] [place] [facility] [address] [id number] [place] [address] May, [facility] [place] [facility] [address] [id number] [place] [address] May, [facility] [place] [facility] [address] [id number] [place] [address] May, [facility] [place] [facility] [address] [id number] [place] [address] May, [facility] [place] [facility] [address] [id number] [place] [address] May, [facility] [place] [facility] [address] [id number] [place] [address] Mar, [facility] [place] [facility] [address] [id number] [place] [address] Mar, [facility] [place] [facility] [address] [id number] [place] [address] Mar, [facility] [place] [facility] [address] [id number] [place] [address] Mar, [facility] [place] [facility] [address] [id number] [place] [address] Mar, [facility] [place] [facility] [address] [id number] [place] [address] Mar, [facility] [place] [facility] [address] [id number] [place] [address] Mar, [facility] [place] [facility] [address] [id number] [place] [address] Mar, [facility] [place] [facility] [address] [id number] [place] [address] Mar, [facility] [place] [facility] [address] [id number] [place] [address] Mar, [facility] [place] [facility] [address] [id number] [place] [address] Mar, [facility] [place] [facility] [address] [facility] [id number] [place] [address] Mar, [facility] [place] [facility] [address] [id number] [place] [address] Mar, 2013 [facility] [place] [facility] [address] [facility] [id number] [place] [address] Mar, [facility] [place] [facility] [address] [id number] [place] [address] Jan, [facility] [place] [facility] [address] [id number] [place] [address] Jan, [facility] [place] [facility] [address] [id number] [place] [address] Jan, [facility] [place] [facility] [address] [id number] [place] [address] Jan, [facility] [place] [facility] [address] [id number] [place] [address] Jan, [facility] [place] [facility] [address] [id number] [place] [address] Jan, [facility] [place] [facility] [address] [id number] [place] [address] Jan, [facility] [place] [facility] [address] [id number] [place] [address] Jan, [facility] [place] [facility] [address] [facility] [id number] [place] [address] Jan, [facility] [place] [facility] [address] [id number] [place] [address] Dec, [facility] [place] [facility] [address] [id number] [place] [address] Dec, [facility] [place] [facility] [address] [id number] [place] [address] Dec, [facility] [place] [facility] [address] [facility] [id number] [facility] [place] [address] Dec, [facility] [place] [facility] [address] [facility] [id number] [place] [address] Dec, [facility] [place] [facility] [address] [facility] [id number] [facility] [place] [address] Dec, [facility] [place] [facility] [address] [facility] [id number] [place] [address] Dec, [facility] [place] [facility] [address] [facility] [id number] [place] [address] Dec, [facility] [place] [facility] [address] [facility] [id number] [place] [address] Dec, [facility] [place] [facility] [address] [id number] [place] [address] October, [facility] [place] [facility] [address] [id number] [facility] [place] [address] October, [facility] [place] [facility] [address] [facility] [id number] [facility] [place] [address] Sep, [facility] [place] [facility] [address] [id number] [facility] [place] [address] Sep, [facility] [place] [facility] [address] [id number] [place] [address] Aug, [facility] [place] [facility] [address] [id number] [place] [address] Aug, [facility] [place] [facility] [address] [facility] [id number] [facility] [place] [address] Aug, [facility] [place] [facility] [address] [facility] [id number] [place] [address] Aug, [facility] [place] [facility] [address] [facility] [id number] [place] [address] Aug, [facility] [place] [facility] [address] [id number] [facility] [place] [address] Aug, [facility] [place] [facility] [address] [id number] [place] [address] 14 Aug, 2013 [facility] [place] [facility] [address] [id number] [place] [address] Aug, [facility] [place] [facility] [address] [id number] [place] [address] Aug, [facility] [place] [facility] [address] [id number] [place] [address] Aug, [facility] [place] [facility] [address] [id number] [place] [address] Aug, [facility] [place] [facility] [address] [id number] [place] [address] Jul, [facility] [place] [facility] [address] [id number] [place] [address] Jul, [facility] [place] [facility] [id number] [place] [address] May, [facility] [place] [facility] [address] [id number] [place] [address] May, [facility] [address] [id number] [place] [address] May, [facility] [address] [id number] [place] [address] May, [facility] [address] [id number] [place] [address] May, [facility] [address] [id number] [place] [address] May, [facility] [address] [id number] [place] [address] May, [facility] [id number] [place] [address] May, [facility] [address] [id number] [place] [address] May, [facility] [id number] [place] [address] May, [facility] [address] [id number] [place] [address] May, [facility] [address] [id number] [place] [address] May, [facility] [address] [id number] [place] [address] May, [facility] [address] [id number] [place] [address] May, [facility] [address] [id number] [place] [address] May, [facility] [address] [id number] [place] [address] May, [facility] [address] [id number] [place] [address] May, [facility] [address] [id number] [place] [address] May, [facility] [address] [id number] [place] [address] May, [facility] [address] [id number] [place] [address] 16 May, 2013 [facility] [address] [id number] [place] [address] May, [facility] [address] [id number] [place] [address] May, [facility] [address] [id number] [place] [address] May, [facility] [address] [id number] [place] [address] May, [facility] [address] [id number] [place] [address] May, [facility] [address] [id number] [place] [address] May, [facility] [address] [id number] [place] [address] 07 May, 2012 [facility] [address] [facility] [id number] [place] [address] 07 May, 2013 [facility] [address] [facility] [id number] [place] [address] 04 May, 2013 [facility] [address] [id number] [place] [address] May, [facility] [address] [id number] [place] [address] Mar, 2012 [facility] [address] [facility] [id number] [place] [address] Mar, [facility] [address] [id number] [place] [address] Mar, [facility] [address] [id number] [place] [address] Mar, [facility] [address] [id number] [place] [address] 30 Mar, 2013 [facility] [address] [id number] [place] [address] Mar, [facility] [address] [id number] [place] [address] Mar, [facility] [address] [id number] [place] [address] Mar, [facility] [address] [id number] [place] [address] Mar, 2012 [facility] [address] [facility] [id number] [place] [address] Mar, [facility] [address] [id number] [place] [address] Mar, [facility] [address] [id number] [place] [address] Mar, [facility] [address] [id number] [place] [address] 24 Mar, 2012 [facility] [address] [facility] [id number] [place] [address] 23 Mar, 2013 [facility] [address] [facility] [id number] [place] [address] 22 Mar, 2013 [facility] [address] [facility] [id number] [place] [address] 21 Mar, 2013 [facility] [address] [id number] [place] [address] 21 Mar, 2013 [facility] [address] [facility] [id number] [place] [address] 18 Mar, 2013 [facility] [address] [id number] [place] [address] 18 Mar, 2013 [facility] [address] [id number] [place] [address] 18 Mar, 2013 [facility] [address] [id number] [place] [address] 18 Mar, 2013 [facility] [address] [id number] [place] [address] 14 Mar, 2013 [facility] [address] [id number] [place] [address] 14 Mar, 2013 [facility] [address] [id number] [place] [address] 10 Mar, 2013 [facility] [address] [id number] [place] [address] 18 Mar, 2013 [facility] [address] [id number] [place] [address] 12 Mar, 2013 [facility] [address] [facility] [id number] [place] [address] 11 Mar, 2013 [facility] [address] [id number] [place] [address] Jan, [facility] [address] [id number] [place] [address] October, [facility] [address] [id number] [place] [address] Sep, [facility] [address] [id number] [place] [address] 15 Sep, 2012 [facility] [address] [id number] [place] [address] 07 Aug, 2012 [facility] [address] [id number] [place] [address] 06 Aug, 2012 [facility] [address] [id number] [place] [address] 04 Aug, 2012 [facility] [address] [id number] [place] [address] 17 Jul, 2012 [facility] [address] [id number] [place] [address] 19 May, 2012 [facility] [address] [id number] [place] [address] 19 May, 2012 [facility] [id number] [place] [address] 18 May, 2012 [facility] [address] [id number] [place] [address] 18 May, 2012 [facility] [id number] [place] [address] 19 Mar, 2012 [facility] [address] [id number] [place] [address] 19 Mar, 2012 [facility] [id number] [place] [address] 16 Mar, 2012 [facility] [address] [id number] [place] [address] 25 Mar, 2011 [facility] [address] [id number] [place] [address] 19 Sep, 2011 [facility] [address] [id number] [place] [address] 13 Sep, 2011 [facility] [address] [id number] [place] [address] 07 Sep, 2011 [facility] [address] [id number] [facility] [place] [address] Jan, 2011 [facility] [address] [id number] [facility] [place] [address] Jan, [facility] [address] [facility] [id number] [facility] [place] [address] Jan, [facility] [address] [id number] [facility] [place] [address] Jan, [facility] [address] [id number] [place] [address] Jan, [facility] [address] [id number] [facility] [place] [address] Jan, [facility] [address] [id number] [place] [address] Jan, [facility] [address] [id number] [place] [address] Jan, [facility] [address] [id number] [place] [address] Jan, [facility] [address] [id number] [place] [address] Jan, [facility] [address] [id number] [place] [address] Jan, [facility] [address] [id number] [place] [address] Jan, [facility] [address] [id number] [place] [address] Jan, [facility] [address] [id number] [place] [address] Jan, [facility] [address] [id number] [place] [address] Jan, [facility] [address] [id number] [place] [address] Jan, [facility] [address] [id number] [place] [address] Dec, [facility] [address] [id number] [place] [address] Dec, [facility] [address] [id number] [place] [address] Nov, [facility] [address] [id number] [place] [address] Nov, [facility] [address] [id number] [place] [address] October, [facility] [address] [id number] [place] [address] October, [facility] [address] [id number] [place] [address] October, [facility] [address] [id number] [place] [address] Sep, [facility] [address] [id number] [place] [address] Sep, [facility] [address] [id number] [place] [address] Aug, [facility] [address] [id number] [place] [address] Aug, [facility] [address] [id number] [place] [address] Aug, [facility] [address] [id number] [place] [address] Aug, [facility] [address] [id number] [place] [address] Aug, [facility] [address] [id number] [place] [address] Aug, [facility] [id number] [place] [address] 07 Aug, 2011 [facility] [address] [id number] [place] [address] Jul, [facility] [address] [id number] [place] [address] Jul, [facility] [address] [id number] [place] [address] Jul, [facility] [address] [id number] [place] [address] May, [facility] [address] [id number] [place] [address] May, [facility] [address] [id number] [place] [address] May, [facility] [address] [facility] [id number] [place] [address] May, [facility] [address] [id number] [place] [address] May, [facility] [address] [id number] [place] [address] May, [facility] [address] [id number] [place] [address] May, [facility] [address] [id number] [place] [address] Mar, [facility] [address] [id number] [place] [address] Mar, [facility] [address] [id number] [place] [address] Mar, [facility] [address] [id number] [place] [address] 15 Mar, 2011 [facility] [address] [id number] [place] [address] Mar, [facility] [address] [id number] [place] [address] 13 Mar, 2010 [facility] [address] [id number] [place] [address] Jan, [facility] [address] [id number] [place] [address] 31 May, 2009 [facility] [address] [id number] [place] [address] May, [facility] [address] [id number] [place] [address] May, [facility] [address] [id number] [place] [address] May, [facility] [id number] [place] [address] May, [facility] [address] [id number] [place] [address] May, [facility] [address] [id number] [place] [address] Mar, [facility] [address] [id number] [place] [address] Sep, IMMUNIZATIONS No Known Immunizations SOCIAL HISTORY [...]
--- OUTSIDE RECORDS SUMMARY | 2019-12-30 23:43 | XMS REPORT ---
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 [place] [address] Jul, [facility] [place] [facility] [address] [id number] [place] [address] May, [facility] [place] [facility] [address] [id number] [place] [address] May, [facility] [place] [facility] [address] [id number] [place] [address] May, [facility] [place] [facility] [address] [id number] [place] [address] May, [facility] [place] [facility] [address] [id number] [place] [address] May, [facility] [place] [facility] [address] [id number] [place] [address] May, [facility] [place] [facility] [address] [id number] [place] [address] May, [facility] [place] [facility] [address] [id number] [place] [address] May, [facility] [place] [facility] [address] [id number] [place] [address] May, [facility] [place] [facility] [address] [id number] [place] [address] May, [facility] [place] [facility] [address] [id number] [place] [address] May, [facility] [place] [facility] [address] [facility] [id number] [place] [address] May, [facility] [place] [facility] [address] [facility] [id number] [place] [address] May, [facility] [place] [facility] [address] [id number] [place] [address] May, [facility] [place] [facility] [address] [id number] [place] [address] May, [facility] [place] [facility] [address] [facility] [id number] [place] [address] May, [facility] [place] [facility] [address] [id number] [place] [address] May, [facility] [place] [facility] [address] [id number] [place] [address] May, [facility] [place] [facility] [address] [id number] [place] [address] May, [facility] [place] [facility] [address] [id number] [place] [address] May, [facility] [place] [facility] [address] [id number] [place] [address] May, [facility] [place] [facility] [address] [id number] [place] [address] May, [facility] [place] [facility] [address] [id number] [place] [address] 15 May, 2014 [facility] [place] [facility] [address] [id number] [place] [address] 15 May, 2014 [facility] [place] [facility] [address] [id number] [place] [address] May, [facility] [place] [facility] [address] [id number] [place] [address] May, [facility] [place] [facility] [address] [id number] [place] [address] May, [facility] [place] [facility] [address] [id number] [place] [address] May, [facility] [place] [facility] [address] [id number] [place] [address] May, [facility] [place] [facility] [address] [id number] [place] [address] May, [facility] [place] [facility] [address] [id number] [place] [address] May, [facility] [place] [facility] [address] [id number] [place] [address] May, [facility] [place] [facility] [address] [id number] [place] [address] May, [facility] [place] [facility] [address] [id number] [place] [address] May, [facility] [place] [facility] [address] [id number] [place] [address] May, [facility] [place] [facility] [address] [id number] [place] [address] Mar, [facility] [place] [facility] [address] [id number] [place] [address] Mar, [facility] [place] [facility] [address] [id number] [place] [address] Mar, [facility] [place] [facility] [address] [id number] [place] [address] Mar, [facility] [place] [facility] [address] [id number] [place] [address] Mar, [facility] [place] [facility] [address] [id number] [place] [address] Mar, [facility] [place] [facility] [id number] [place] [address] Mar, [facility] [place] [facility] [address] [id number] [place] [address] Mar, [facility] [place] [facility] [address] [id number] [place] [address] 24 Mar, 2014 [facility] [place] [facility] [address] [id number] [place] [address] Mar, 2013 [facility] [place] [facility] [address] [facility] [id number] [place] [address] Mar, [facility] [place] [facility] [address] [facility] [id number] [place] [address] Mar, [facility] [place] [facility] [address] [id number] [place] [address] Mar, [facility] [place] [facility] [address] [facility] [id number] [place] [address] Mar, [facility] [place] [facility] [address] [id number] [place] [address] Jan, [facility] [place] [facility] [address] [id number] [place] [address] Jan, [facility] [place] [facility] [address] [id number] [place] [address] Jan, [facility] [place] [facility] [address] [id number] [place] [address] Jan, [facility] [place] [facility] [address] [id number] [place] [address] Jan, [facility] [place] [facility] [address] [id number] [place] [address] Jan, [facility] [place] [facility] [address] [id number] [place] [address] Jan, [facility] [place] [facility] [address] [id number] [place] [address] Jan, [facility] [place] [facility] [address] [facility] [id number] [place] [address] Jan, [facility] [place] [facility] [address] [id number] [place] [address] Dec, [facility] [place] [facility] [address] [id number] [place] [address] Dec, [facility] [place] [facility] [address] [id number] [place] [address] Dec, [facility] [place] [facility] [address] [facility] [id number] [facility] [address] Dec, [facility] [place] [facility] [address] [facility] [id number] [place] [address] Dec, [facility] [place] [facility] [address] [facility] [id number] [facility] [place] [address] Dec, [facility] [place] [facility] [address] [facility] [id number] [facility] [place] [address] Dec, [facility] [place] [facility] [address] [facility] [id number] [facility] [place] [address] Dec, [facility] [place] [facility] [address] [facility] [id number] [place] [address] Dec, [facility] [place] [facility] [address] [id number] [place] [address] October, [facility] [place] [facility] [address] [id number] [place] [address] October, [facility] [place] [facility] [address] [facility] [id number] [place] [address] Sep, [facility] [place] [facility] [address] [id number] [place] [address] Sep, [facility] [place] [facility] [address] [id number] [place] [address] Aug, [facility] [place] [facility] [address] [id number] [place] [address] Aug, [facility] [place] [facility] [address] [facility] [id number] [place] [address] Aug, [facility] [place] [facility] [address] [facility] [id number] [place] [address] Aug, [facility] [place] [facility] [address] [facility] [id number] [place] [address] Aug, [facility] [place] [facility] [address] [id number] [place] [address] Aug, [facility] [place] [facility] [address] [id number] [place] [address] 14 Aug, 2013 [facility] [place] [facility] [address] [id number] [place] [address] 07 Aug, 2013 [facility] [place] [facility] [address] [id number] [place] [address] Aug, [facility] [place] [facility] [address] [id number] [place] [address] Aug, [facility] [place] [facility] [address] [id number] [place] [address] Aug, [facility] [place] [facility] [address] [id number] [place] [address] Jul, [facility] [place] [facility] [address] [id number] [place] [address] Jul, [facility] [place] [facility] [address] [id number] [place] [address] May, [facility] [place] [facility] [address] [id number] [place] [address] May, [facility] [place] [facility] [address] [id number] [place] [address] May, [facility] [place] [facility] [address] [id number] [place] [address] May, [facility] [place] [facility] [address] [id number] [place] [address] May, [facility] [place] [facility] [address] [id number] [place] [address] May, [facility] [place] [facility] [address] [id number] [place] [address] May, [facility] [place] [facility] [address] [id number] [place] [address] May, [facility] [place] [facility] [address] [id number] [place] [address] May, [facility] [place] [facility] [address] [id number] [place] [address] May, [facility] [place] [facility] [address] [id number] [place] [address] May, [facility] [place] [facility] [address] [id number] [place] [address] May, [facility] [place] [facility] [address] [id number] [place] [address] May, [facility] [place] [facility] [address] [id number] [place] [address] May, [facility] [address] [id number] [place] [address] May, [facility] [address] [id number] [place] [address] May, [facility] [address] [id number] [place] [address] May, [facility] [address] [id number] [place] [address] 18 May, 2013 [facility] [address] [id number] [place] [address] May, [facility] [address] [id number] [place] [address] May, [facility] [address] [id number] [place] [address] May, [facility] [address] [id number] [place] [address] May, [facility] [address] [id number] [place] [address] May, [facility] [address] [id number] [place] [address] May, [facility] [address] [id number] [place] [address] May, [facility] [address] [id number] [place] [address] May, [facility] [address] [id number] [place] [address] 07 May, 2012 [facility] [address] [id number] [place] [address] 07 May, 2013 [facility] [address] [id number] [place] [address] May, [facility] [address] [id number] [place] [address] May, [facility] [address] [id number] [place] [address] Mar, [facility] [address] [id number] [place] [address] Mar, [facility] [address] [id number] [place] [address] Mar, [facility] [address] [id number] [place] [address] Mar, [facility] [address] [id number] [place] [address] 30 Mar, 2013 [facility] [address] [id number] [place] [address] Mar, [facility] [address] [id number] [place] [address] Mar, [facility] [address] [id number] [place] [address] Mar, [facility] [address] [id number] [place] [address] Mar, [facility] [address] [id number] [place] [address] Mar, [facility] [address] [id number] [place] [address] Mar, [facility] [address] [id number] [place] [address] Mar, [facility] [address] [id number] [place] [address] Mar, [facility] [address] [facility] [id number] [place] [address] 23 Mar, 2013 [facility] [address] [id number] [place] [address] 22 Mar, 2013 [facility] [address] [id number] [place] [address] Mar, [facility] [address] [id number] [place] [address] 21 Mar, 2013 [facility] [address] [id number] [place] [address] 18 Mar, 2013 [facility] [address] [id number] [place] [address] 18 Mar, 2013 [facility] [address] [id number] [place] [address] 18 Mar, 2013 [facility] [address] [id number] [place] [address] 18 Mar, 2013 [facility] [address] [id number] [place] [address] 14 Mar, 2013 [facility] [address] [id number] [place] [address] 14 Mar, 2013 [facility] [address] [id number] [place] [address] 10 Mar, 2013 [facility] [address] [id number] [place] [address] 18 Mar, 2013 [facility] [address] [id number] [place] [address] 12 Mar, 2013 [facility] [address] [facility] [id number] [place] [address] 11 Mar, 2013 [facility] [address] [id number] [place] [address] Jan, [facility] [address] [id number] [place] [address] October, [facility] [address] [id number] [place] [address] 22 Sep, 2012 [facility] [address] [id number] [place] [address] 15 Sep, 2012 [facility] [address] [id number] [place] [address] 07 Aug, 2012 [facility] [address] [id number] [place] [address] 06 Aug, 2012 [facility] [address] [id number] [place] [address] 04 Aug, 2012 [facility] [address] [id number] [place] [address] 17 Jul, 2012 [facility] [address] [id number] [place] [address] May, [facility] [address] [id number] [place] [address] 19 May, 2012 [facility] [address] [id number] [place] [address] 18 May, 2012 [facility] [address] [id number] [place] [address] 18 May, 2012 [facility] [address] [id number] [place] [address] 19 Mar, 2012 [facility] [address] [id number] [place] [address] 19 Mar, 2012 [facility] [address] [id number] [place] [address] 16 Mar, 2012 [facility] [address] [id number] [place] [address] 25 Mar, 2011 [facility] [address] [id number] [place] [address] 19 Sep, 2011 [facility] [address] [id number] [place] [address] 13 Sep, 2011 [facility] [address] [id number] [place] [address] 07 Sep, 2011 [facility] [address] [id number] [place] [address] Jan, 2011 [facility] [address] [id number] [facility] [place] [address] Jan, 2011 [facility] [address] [id number] [place] [address] Jan, [facility] [address] [id number] [place] [address] Jan, [facility] [address] [id number] [place] [address] Jan, [facility] [address] [id number] [place] [address] Jan, [facility] [address] [id number] [place] [address] Jan, [facility] [address] [id number] [place] [address] Jan, [facility] [address] [id number] [place] [address] Jan, [facility] [address] [id number] [place] [address] Jan, [facility] [address] [id number] [place] [address] Jan, [facility] [address] [id number] [place] [address] Jan, [facility] [address] [id number] [place] [address] Jan, [facility] [address] [id number] [place] [address] Jan, [facility] [address] [id number] [place] [address] Jan, [facility] [address] [id number] [place] [address] Jan, [facility] [address] [id number] [place] [address] Dec, [facility] [address] [id number] [place] [address] Dec, [facility] [address] [id number] [place] [address] Nov, [facility] [address] [id number] [place] [address] Nov, [facility] [address] [id number] [place] [address] October, [facility] [address] [id number] [place] [address] October, [facility] [address] [id number] [place] [address] October, [facility] [address] [id number] [place] [address] Sep, [facility] [address] [id number] [place] [address] Sep, [facility] [address] [id number] [place] [address] Aug, [facility] [address] [id number] [place] [address] Aug, [facility] [address] [id number] [place] [address] Aug, [facility] [address] [id number] [place] [address] Aug, [facility] [address] [id number] [place] [address] Aug, [facility] [address] [id number] [place] [address] Aug, [facility] [address] [id number] [place] [address] 07 Aug, 2011 [facility] [address] [id number] [place] [address] Jul, [facility] [address] [id number] [place] [address] Jul, [facility] [address] [id number] [place] [address] Jul, [facility] [address] [id number] [place] [address] May, [facility] [address] [id number] [place] [address] May, [facility] [address] [id number] [place] [address] May, [facility] [address] [id number] [place] [address] May, [facility] [address] [id number] [place] [address] May, [facility] [address] [id number] [place] [address] May, [facility] [address] [id number] [place] [address] May, [facility] [address] [id number] [place] [address] Mar, [facility] [address] [id number] [place] [address] Mar, [facility] [address] [id number] [place] [address] Mar, [facility] [address] [id number] [place] [address] 15 Mar, 2011 [facility] [address] [id number] [place] [address] Mar, [facility] [address] [id number] [place] [address] 13 Mar, 2010 [facility] [address] [id number] [place] [address] 10 Jan, 2010 [facility] [address] [id number] [place] [address] 31 May, 2009 [facility] [address] [id number] [place] [address] May, [facility] [address] [id number] [place] [address] May, [facility] [address] [id number] [place] [address] May, [facility] [address] [id number] [place] [address] May, [facility] [address] [id number] [place] [address] May, [facility] [address] [id number] [place] [address] Mar, [facility] [address] [id number] [place] [address] Sep, IMMUNIZATIONS No Known Immunizations SOCIAL HISTORY Never Assessed REASON FOR VISIT screening/walk-in int. dental PLAN OF CARE VITAL SIGNS MEDICATIONS Unknown Medications RESULTS No Results PROCEDURES Procedure Date Ordered Result Body Site Billing Notes on claim September 26, 2018 SCREENING OF A PATIENT September 26, 2018 INSTRUCTIONS MEDICATIONS ADMINISTERED No Known Medications MEDICAL [...]
--- OUTSIDE RECORDS SUMMARY | 2019-12-30 23:44 | XMS REPORT ---
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 [place] [address] Jul, [facility] [place] [facility] [address] [id number] [place] [address] Jul, [facility] [place] [facility] [address] [id number] [place] [address] Jul, [facility] [place] [facility] [address] [id number] [place] [address] Jul, [facility] [place] [facility] [address] [id number] [place] [address] May, [facility] [place] [facility] [address] [id number] [place] [address] May, [facility] [place] [facility] [address] [id number] [place] [address] May, [facility] [place] [facility] [address] [id number] [place] [address] May, [facility] [place] [facility] [address] [id number] [place] [address] May, [facility] [place] [facility] [address] [id number] [place] [address] May, [facility] [place] [facility] [address] [id number] [place] [address] May, [facility] [place] [facility] [address] [id number] [place] [address] May, [facility] [place] [facility] [address] [id number] [place] [address] May, [facility] [place] [facility] [address] [id number] [place] [address] May, [facility] [place] [facility] [address] [id number] [place] [address] May, [facility] [place] [facility] [address] [id number] [place] [address] 17 May, 2014 [facility] [place] [facility] [address] [facility] [id number] [place] [address] May, [facility] [place] [facility] [address] [id number] [place] [address] May, [facility] [place] [facility] [address] [id number] [place] [address] May, [facility] [place] [facility] [address] [id number] [place] [address] May, [facility] [place] [facility] [address] [facility] [id number] [place] [address] May, [facility] [place] [facility] [address] [id number] [place] [address] May, [facility] [place] [facility] [address] [id number] [place] [address] May, [facility] [place] [facility] [address] [id number] [place] [address] May, [facility] [place] [facility] [address] [id number] [place] [address] May, [facility] [place] [facility] [address] [id number] [place] [address] 24 May, 2014 [facility] [place] [facility] [address] [id number] [place] [address] 15 May, 2014 [facility] [place] [facility] [address] [id number] [place] [address] 15 May, 2014 [facility] [place] [facility] [address] [id number] [place] [address] May, [facility] [place] [facility] [address] [id number] [place] [address] May, [facility] [place] [facility] [address] [id number] [place] [address] May, [facility] [place] [facility] [address] [id number] [place] [address] May, [facility] [place] [facility] [address] [id number] [place] [address] May, [facility] [place] [facility] [address] [id number] [place] [address] May, [facility] [place] [facility] [address] [id number] [place] [address] May, [facility] [place] [facility] [address] [id number] [place] [address] May, [facility] [place] [facility] [address] [id number] [place] [address] May, [facility] [place] [facility] [address] [id number] [place] [address] May, [facility] [place] [facility] [address] [id number] [place] [address] May, [facility] [place] [facility] [address] [id number] [place] [address] Mar, [facility] [place] [facility] [address] [id number] [place] [address] Mar, [facility] [place] [facility] [address] [id number] [place] [address] Mar, [facility] [place] [facility] [address] [id number] [place] [address] Mar, [facility] [place] [facility] [address] [id number] [place] [address] Mar, [facility] [place] [facility] [address] [id number] [place] [address] Mar, [facility] [place] [facility] [address] [id number] [place] [address] Mar, [facility] [place] [facility] [address] [id number] [place] [address] Mar, [facility] [place] [facility] [address] [id number] [place] [address] Mar, [facility] [place] [facility] [address] [id number] [place] [address] 24 Mar, 2014 [facility] [place] [facility] [address] [id number] [place] [address] 08 Mar, 2013 [facility] [place] [facility] [address] [facility] [id number] [place] [address] Mar, [facility] [place] [facility] [address] [facility] [id number] [place] [address] Mar, [facility] [place] [facility] [address] [id number] [place] [address] Mar, [facility] [place] [facility] [address] [facility] [id number] [place] [address] Jan, [facility] [place] [facility] [address] [id number] [place] [address] Jan, [facility] [place] [facility] [address] [id number] [place] [address] Jan, [facility] [place] [facility] [address] [id number] [place] [address] Jan, [facility] [place] [facility] [address] [id number] [place] [address] Jan, [facility] [place] [facility] [address] [id number] [place] [address] Jan, [facility] [place] [facility] [address] [id number] [place] [address] Jan, [facility] [place] [facility] [address] [id number] [place] [address] Jan, [facility] [place] [facility] [address] [id number] [place] [address] Jan, [facility] [place] [facility] [address] [facility] [id number] [place] [address] Dec, [facility] [place] [facility] [address] [id number] [place] [address] Dec, [facility] [place] [facility] [address] [id number] [place] [address] Dec, [facility] [place] [facility] [address] [id number] [place] [address] Dec, [facility] [place] [facility] [address] [facility] [id number] [facility] [address] Dec, [facility] [place] [facility] [address] [facility] [id number] [place] [address] Dec, [facility] [place] [facility] [address] [facility] [id number] [facility] [address] Dec, [facility] [place] [facility] [address] [facility] [id number] [place] [address] Dec, [facility] [place] [facility] [address] [facility] [id number] [place] [address] Dec, [facility] [place] [facility] [address] [id number] [facility] [address] October, [facility] [place] [facility] [address] [facility] [id number] [place] [address] October, [facility] [place] [facility] [address] [id number] [place] [address] Sep, [facility] [place] [facility] [address] [facility] [id number] [facility] [address] Sep, [facility] [place] [facility] [address] [id number] [place] [address] Aug, [facility] [place] [facility] [address] [id number] [place] [address] Aug, [facility] [place] [facility] [address] [id number] [place] [address] Aug, [facility] [place] [facility] [address] [facility] [id number] [place] [address] Aug, [facility] [place] [facility] [address] [facility] [id number] [place] [address] Aug, [facility] [place] [facility] [address] [facility] [id number] [place] [address] Aug, [facility] [place] [facility] [address] [id number] [place] [address] Aug, [facility] [place] [facility] [address] [id number] [place] [address] 07 Aug, 2013 [facility] [place] [facility] [address] [id number] [place] [address] Aug, [facility] [place] [facility] [address] [id number] [place] [address] Aug, [facility] [address] [id number] [place] [address] Aug, [facility] [address] [id number] [place] [address] Jul, [facility] [address] [id number] [place] [address] Jul, [facility] [address] [id number] [place] [address] May, [facility] [address] [id number] [place] [address] May, [facility] [address] [id number] [place] [address] May, [facility] [address] [id number] [place] [address] May, [facility] [address] [id number] [place] [address] May, [facility] [address] [id number] [place] [address] May, [facility] [address] [id number] [place] [address] May, [facility] [address] [id number] [place] [address] May, [facility] [id number] [place] [address] May, [facility] [address] [id number] [place] [address] May, [facility] [id number] [place] [address] May, [facility] [address] [id number] [place] [address] May, [facility] [address] [id number] [place] [address] May, [facility] [address] [id number] [place] [address] May, [facility] [address] [id number] [place] [address] May, [facility] [address] [id number] [place] [address] May, [facility] [address] [id number] [place] [address] 18 May, 2013 [facility] [address] [id number] [place] [address] 18 May, 2013 [facility] [address] [id number] [place] [address] 16 May, 2013 [facility] [address] [id number] [place] [address] 16 May, 2013 [facility] [address] [id number] [place] [address] May, [facility] [address] [id number] [place] [address] May, [facility] [address] [id number] [place] [address] May, [facility] [address] [id number] [place] [address] May, [facility] [address] [id number] [place] [address] May, [facility] [address] [id number] [place] [address] 09 May, 2013 [facility] [address] [id number] [place] [address] May, [facility] [address] [id number] [place] [address] May, [facility] [address] [facility] [id number] [place] [address] May, [facility] [address] [facility] [id number] [place] [address] May, [facility] [address] [id number] [place] [address] Mar, [facility] [address] [id number] [place] [address] Mar, [facility] [address] [facility] [id number] [place] [address] Mar, [facility] [address] [id number] [place] [address] Mar, [facility] [address] [id number] [place] [address] 30 Mar, 2013 [facility] [address] [id number] [place] [address] Mar, [facility] [address] [id number] [place] [address] Mar, [facility] [address] [id number] [place] [address] Mar, [facility] [address] [id number] [place] [address] Mar, [facility] [address] [id number] [place] [address] Mar, [facility] [address] [facility] [id number] [place] [address] Mar, [facility] [address] [id number] [place] [address] 24 Mar, 2013 [facility] [address] [id number] [place] [address] 24 Mar, 2013 [facility] [address] [id number] [place] [address] Mar, 2012 [facility] [address] [facility] [id number] [place] [id number] 22 Mar, 2013 [facility] [address] [facility] [id number] [place] [address] 21 Mar, 2013 [facility] [address] [facility] [id number] [place] [address] 21 Mar, 2013 [facility] [address] [id number] [place] [address] 18 Mar, 2013 [facility] [address] [id number] [place] [address] 18 Mar, 2013 [facility] [address] [id number] [place] [address] 18 Mar, 2013 [facility] [address] [id number] [place] [address] 18 Mar, 2013 [facility] [address] [id number] [place] [address] 14 Mar, 2013 [facility] [address] [id number] [place] [address] 14 Mar, 2013 [facility] [address] [id number] [place] [address] 10 Mar, 2013 [facility] [address] [id number] [place] [address] 18 Mar, 2013 [facility] [address] [id number] [place] [address] 12 Mar, 2013 [facility] [address] [id number] [place] [address] 11 Mar, 2013 [facility] [address] [facility] [id number] [place] [address] Jan, [facility] [address] [id number] [place] [address] October, [facility] [address] [id number] [place] [address] Sep, [facility] [address] [id number] [place] [address] 15 Sep, 2012 [facility] [address] [id number] [place] [address] 07 Aug, 2012 [facility] [address] [id number] [place] [address] 06 Aug, 2012 [facility] [address] [id number] [place] [address] Aug, [facility] [address] [id number] [place] [address] Jul, [facility] [address] [id number] [place] [address] May, [facility] [address] [id number] [place] [address] May, [facility] [address] [id number] [place] [address] May, [facility] [id number] [place] [address] 18 May, 2012 [facility] [address] [id number] [place] [address] Mar, [facility] [id number] [place] [address] 19 Mar, 2012 [facility] [address] [id number] [place] [address] 16 Mar, 2012 [facility] [id number] [place] [address] 25 Mar, 2012 [facility] [address] [id number] [place] [address] 19 Mar, 2012 [facility] [address] [id number] [place] [address] 13 Mar, 2012 [facility] [address] [id number] [place] [address] 07 Mar, 2012 [facility] [address] [id number] [place] [address] 30 Jan, 2012 [facility] [address] [id number] [facility] [place] [address] Jan, 2011 [facility] [address] [id number] [facility] [place] [address] Jan, [facility] [address] [facility] [id number] [facility] [place] [address] Jan, [facility] [address] [id number] [facility] [place] [address] Jan, [facility] [address] [id number] [place] [address] Jan, [facility] [address] [id number] [facility] [place] [address] Jan, [facility] [address] [id number] [place] [address] Jan, [facility] [address] [id number] [place] [address] Jan, [facility] [address] [id number] [place] [address] Jan, [facility] [address] [id number] [place] [address] Jan, [facility] [address] [id number] [place] [address] Jan, [facility] [address] [id number] [place] [address] Jan, [facility] [address] [id number] [place] [address] Jan, [facility] [address] [id number] [place] [address] Jan, [facility] [address] [id number] [place] [address] Jan, [facility] [address] [id number] [place] [address] Dec, [facility] [address] [id number] [place] [address] Dec, [facility] [address] [id number] [place] [address] Nov, [facility] [address] [id number] [place] [address] Nov, [facility] [address] [id number] [place] [address] October, [facility] [address] [id number] [place] [address] October, [facility] [address] [id number] [place] [address] October, [facility] [address] [id number] [place] [address] Sep, [facility] [address] [id number] [place] [address] Sep, [facility] [address] [id number] [place] [address] Aug, [facility] [address] [id number] [place] [address] Aug, [facility] [address] [id number] [place] [address] Aug, [facility] [address] [id number] [place] [address] Aug, [facility] [address] [id number] [place] [address] Aug, [facility] [address] [id number] [place] [address] 14 Aug, 2011 [facility] [address] [id number] [place] [address] Aug, [facility] [address] [id number] [place] [address] Jul, [facility] [address] [id number] [place] [address] Jul, [facility] [address] [id number] [place] [address] Jul, [facility] [address] [id number] [place] [address] May, [facility] [address] [id number] [place] [address] May, [facility] [address] [id number] [place] [address] May, [facility] [address] [id number] [place] [address] May, [facility] [address] [id number] [place] [address] May, [facility] [address] [id number] [place] [address] May, [facility] [address] [id number] [place] [address] May, [facility] [address] [id number] [place] [address] Mar, [facility] [address] [id number] [place] [address] Mar, [facility] [address] [id number] [place] [address] Mar, [facility] [address] [id number] [place] [address] Mar, [facility] [address] [id number] [place] [address] Mar, [facility] [address] [id number] [place] [address] Mar, [facility] [address] [id number] [place] [address] Jan, [facility] [address] [id number] [place] [address] 31 May, 2009 [facility] [address] [id number] [place] [address] 16 May, 2009 [facility] [address] [id number] [place] [address] May, [facility] [address] [id number] [place] [address] May, [facility] [address] [id number] [place] [address] May, [facility] [address] [id number] [place] [address] May, [facility] [address] [id number] [place] [address] Mar, [facility] [address] [id number] [place] [address] Sep, IMMUNIZATIONS No Known Immunizations SOCIAL HISTORY [...]
--- OUTSIDE RECORDS SUMMARY | 2019-12-30 23:44 | XMS REPORT ---
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 [place] [address] Jul, [facility] [place] [facility] [address] [id number] [place] [address] Jul, [facility] [place] [facility] [address] [id number] [place] [address] Jul, [facility] [place] [facility] [address] [facility] [id number] [place] [address] Jul, [facility] [place] [facility] [address] [facility] [id number] [place] [address] Jul, [facility] [place] [facility] [address] [id number] [place] [address] Jul, [facility] [place] [facility] [address] [id number] [place] [address] Jul, [facility] [place] [facility] [address] [facility] [id number] [place] [address] Jul, [facility] [place] [facility] [address] [id number] [place] [address] May, [facility] [place] [facility] [address] [id number] [place] [address] May, [facility] [place] [facility] [address] [id number] [place] [address] May, [facility] [place] [facility] [address] [facility] [id number] [place] [address] May, [facility] [place] [facility] [address] [id number] [place] [address] May, [facility] [place] [facility] [address] [id number] [place] [address] May, [facility] [place] [facility] [address] [id number] [place] [address] May, [facility] [place] [facility] [address] [facility] [id number] [place] [address] May, [facility] [place] [facility] [address] [id number] [place] [address] May, [facility] [place] [facility] [address] [id number] [place] [address] May, [facility] [place] [facility] [address] [id number] [place] [address] May, [facility] [place] [facility] [address] [id number] [place] [address] 17 May, 2014 [facility] [place] [facility] [address] [id number] [place] [address] May, [facility] [place] [facility] [address] [id number] [place] [address] May, [facility] [place] [facility] [address] [id number] [place] [address] May, [facility] [place] [facility] [address] [id number] [place] [address] May, [facility] [place] [facility] [address] [id number] [place] [address] May, [facility] [place] [facility] [address] [id number] [place] [address] May, [facility] [place] [facility] [address] [id number] [place] [address] May, [facility] [place] [facility] [address] [id number] [place] [address] May, [facility] [place] [facility] [address] [id number] [place] [address] May, [facility] [place] [facility] [address] [id number] [place] [address] May, [facility] [place] [facility] [address] [id number] [place] [address] 15 May, 2014 [facility] [place] [facility] [address] [id number] [place] [address] 15 May, 2014 [facility] [place] [facility] [address] [id number] [place] [address] May, [facility] [place] [facility] [id number] [place] [address] May, [facility] [place] [facility] [address] [id number] [place] [address] May, [facility] [place] [facility] [address] [id number] [place] [address] May, [facility] [place] [facility] [address] [id number] [place] [address] May, [facility] [place] [facility] [address] [id number] [place] [address] May, [facility] [place] [facility] [address] [id number] [place] [address] May, [facility] [place] [facility] [address] [id number] [place] [address] May, [facility] [place] [facility] [address] [id number] [place] [address] May, [facility] [place] [facility] [address] [id number] [place] [address] May, [facility] [place] [facility] [address] [id number] [place] [address] May, [facility] [place] [facility] [address] [id number] [place] [address] Mar, [facility] [place] [facility] [address] [id number] [place] [address] Mar, [facility] [place] [facility] [address] [id number] [place] [address] Mar, [facility] [place] [facility] [address] [id number] [place] [address] Mar, [facility] [place] [facility] [address] [id number] [place] [address] Mar, [facility] [place] [facility] [address] [id number] [place] [address] Mar, [facility] [place] [facility] [address] [id number] [place] [address] Mar, [facility] [place] [facility] [address] [id number] [place] [address] Mar, [facility] [place] [facility] [address] [id number] [place] [address] 24 Mar, 2014 [facility] [place] [facility] [address] [id number] [place] [address] Mar, [facility] [place] [facility] [address] [id number] [facility] [place] [address] Mar, [facility] [place] [facility] [address] [facility] [id number] [place] [address] Mar, [facility] [place] [facility] [address] [facility] [id number] [facility] [place] [address] Mar, [facility] [place] [facility] [address] [id number] [facility] [place] [address] Mar, [facility] [place] [facility] [address] [id number] [facility] [place] [address] Jan, [facility] [place] [facility] [address] [id number] [place] [address] Jan, [facility] [place] [facility] [address] [id number] [place] [address] Jan, [facility] [place] [facility] [address] [id number] [facility] [place] [address] Jan, [facility] [place] [facility] [address] [facility] [id number] [place] [address] Jan, [facility] [place] [facility] [address] [id number] [facility] [place] [address] Jan, [facility] [place] [facility] [address] [id number] [place] [address] Jan, [facility] [place] [facility] [address] [id number] [place] [address] Jan, [facility] [place] [facility] [address] [facility] [id number] [place] [address] Jan, [facility] [place] [facility] [address] [id number] [place] [address] Dec, [facility] [place] [facility] [address] [facility] [id number] [place] [address] Dec, [facility] [place] [facility] [address] [id number] [place] [address] Dec, [facility] [place] [facility] [address] [id number] [place] [address] Dec, [facility] [place] [facility] [address] [facility] [id number] [place] [address] Dec, [facility] [place] [facility] [address] [id number] [place] [address] Dec, [facility] [place] [facility] [address] [id number] [place] [address] Dec, [facility] [place] [facility] [address] [id number] [place] [address] Dec, [facility] [place] [facility] [address] [id number] [place] [address] Dec, [facility] [place] [facility] [address] [id number] [place] [address] October, [facility] [place] [facility] [address] [id number] [place] [address] October, [facility] [place] [facility] [address] [id number] [place] [address] Sep, [facility] [place] [facility] [address] [id number] [place] [address] Sep, [facility] [place] [facility] [address] [id number] [place] [address] Aug, [facility] [place] [facility] [address] [id number] [place] [address] Aug, [facility] [place] [facility] [address] [id number] [place] [address] Aug, [facility] [place] [facility] [address] [id number] [place] [address] Aug, [facility] [place] [facility] [address] [id number] [place] [address] Aug, [facility] [place] [facility] [address] [id number] [place] [address] Aug, [facility] [place] [facility] [address] [id number] [place] [address] 14 Aug, 2013 [facility] [address] [id number] [place] [address] 07 Aug, 2013 [facility] [place] [facility] [address] [id number] [place] [address] Aug, [facility] [place] [facility] [address] [id number] [place] [address] Aug, [facility] [place] [facility] [address] [id number] [place] [address] Aug, [facility] [place] [facility] [address] [id number] [place] [address] Jul, [facility] [place] [facility] [address] [id number] [place] [address] Jul, [facility] [place] [facility] [address] [id number] [place] [address] May, [facility] [place] [facility] [address] [id number] [place] [address] May, [facility] [place] [facility] [address] [id number] [place] [address] May, [facility] [place] [facility] [address] [id number] [place] [address] May, [facility] [address] [id number] [place] [address] May, [facility] [address] [id number] [place] [address] May, [facility] [address] [id number] [place] [address] May, [facility] [address] [id number] [place] [address] May, [facility] [address] [id number] [place] [address] May, [facility] [address] [id number] [place] [address] May, [facility] [address] [id number] [place] [address] 20 May, 2013 [facility] [address] [id number] [place] [address] May, [facility] [address] [id number] [place] [address] May, [facility] [address] [id number] [place] [address] May, [facility] [address] [id number] [place] [address] May, [facility] [address] [id number] [place] [address] May, [facility] [address] [id number] [place] [address] May, [facility] [address] [id number] [place] [address] 18 May, 2013 [facility] [address] [id number] [place] [address] May, [facility] [address] [id number] [place] [address] 16 May, 2013 [facility] [address] [id number] [place] [address] May, [facility] [address] [id number] [place] [address] May, [facility] [address] [id number] [place] [address] May, [facility] [address] [id number] [place] [address] May, [facility] [address] [id number] [place] [address] May, [facility] [address] [id number] [place] [address] May, [facility] [address] [id number] [place] [address] May, [facility] [address] [id number] [place] [address] May, [facility] [address] [id number] [place] [address] May, [facility] [address] [id number] [place] [address] May, [facility] [address] [id number] [place] [address] Mar, 2012 [facility] [address] [id number] [place] [address] 31 Mar, 2012 [facility] [address] [id number] [place] [address] Mar, 2012 [facility] [address] [id number] [place] [address] Mar, [facility] [address] [id number] [place] [address] 30 Mar, 2013 [facility] [address] [id number] [place] [address] 29 Mar, 2012 [facility] [address] [id number] [place] [address] 29 Mar, 2013 [facility] [address] [id number] [place] [address] 29 Mar, 2013 [facility] [address] [id number] [place] [address] 29 Mar, 2012 [facility] [address] [id number] [place] [address] 28 Mar, 2012 [facility] [address] [id number] [place] [address] 28 Mar, 2013 [facility] [address] [id number] [place] [address] 24 Mar, 2013 [facility] [address] [id number] [place] [address] 24 Mar, 2013 [facility] [address] [id number] [place] [address] 23 Mar, 2013 [facility] [address] [facility] [id number] [place] [address] Mar, [facility] [address] [facility] [id number] [place] [address] 21 Mar, 2013 [facility] [address] [facility] [id number] [place] [address] Mar, [facility] [address] [facility] [id number] [place] [address] 18 Mar, 2013 [facility] [address] [facility] [id number] [place] [address] 18 Mar, 2013 [facility] [address] [id number] [place] [address] 18 Mar, 2013 [facility] [address] [id number] [place] [address] 18 Mar, 2013 [facility] [address] [id number] [place] [address] 14 Mar, 2013 [facility] [address] [facility] [id number] [place] [address] 14 Mar, 2013 [facility] [address] [id number] [place] [address] 10 Mar, 2013 [facility] [address] [id number] [place] [address] 18 Mar, 2013 [facility] [address] [id number] [place] [address] 12 Mar, 2013 [facility] [address] [facility] [id number] [place] [address] 11 Mar, 2013 [facility] [address] [facility] [id number] [place] [address] Jan, [facility] [address] [facility] [id number] [place] [address] October, [facility] [address] [id number] [place] [address] Sep, [facility] [address] [id number] [place] [address] 15 Sep, 2012 [facility] [address] [id number] [place] [address] 07 Aug, 2012 [facility] [address] [id number] [place] [address] 06 Aug, 2012 [facility] [address] [id number] [place] [address] Aug, [facility] [address] [id number] [place] [address] Jul, [facility] [address] [id number] [place] [address] May, [facility] [address] [id number] [place] [address] May, [facility] [id number] [place] [address] 18 May, 2012 [facility] [address] [id number] [place] [address] 18 May, 2012 [facility] [address] [id number] [place] [address] Mar, [facility] [id number] [place] [address] 19 Mar, 2012 [facility] [id number] [place] [address] 16 Mar, 2012 [facility] [address] [id number] [place] [address] 25 Mar, 2012 [facility] [address] [id number] [place] [address] 19 Mar, 2012 [facility] [address] [id number] [place] [address] 13 Mar, 2012 [facility] [address] [id number] [place] [address] 07 Mar, 2011 [facility] [id number] [place] [address] 30 Jan, 2012 [facility] [address] [id number] [place] [address] Jan, [facility] [address] [id number] [place] [address] Jan, [facility] [address] [id number] [place] [address] Jan, [facility] [address] [id number] [place] [address] Jan, [facility] [address] [id number] [place] [address] Jan, [facility] [address] [id number] [place] [address] Jan, [facility] [address] [id number] [place] [address] Jan, [facility] [address] [id number] [place] [address] Jan, [facility] [address] [id number] [place] [address] Jan, [facility] [address] [id number] [place] [address] Jan, [facility] [address] [id number] [place] [address] Jan, [facility] [address] [id number] [place] [address] Jan, [facility] [address] [id number] [place] [address] Jan, [facility] [address] [id number] [place] [address] Jan, [facility] [address] [id number] [place] [address] Jan, [facility] [address] [id number] [place] [address] Dec, [facility] [address] [id number] [place] [address] Dec, [facility] [address] [id number] [place] [address] Nov, [facility] [address] [id number] [place] [address] Nov, [facility] [address] [id number] [place] [address] October, [facility] [address] [id number] [place] [address] October, [facility] [address] [id number] [place] [address] October, [facility] [address] [id number] [place] [address] Sep, [facility] [address] [id number] [place] [address] Sep, [facility] [address] [id number] [place] [address] Aug, [facility] [address] [id number] [place] [address] Aug, [facility] [address] [id number] [place] [address] Aug, [facility] [address] [id number] [place] [address] Aug, [facility] [address] [id number] [place] [address] Aug, [facility] [address] [id number] [place] [address] Aug, [facility] [address] [id number] [place] [address] Aug, [facility] [address] [id number] [place] [address] Jul, [facility] [address] [id number] [place] [address] Jul, [facility] [address] [id number] [place] [address] 20 Jul, 2011 [facility] [address] [id number] [place] [address] May, [facility] [address] [id number] [place] [address] May, [facility] [address] [id number] [place] [address] May, [facility] [address] [id number] [place] [address] May, [facility] [address] [id number] [place] [address] May, [facility] [address] [id number] [place] [address] May, [facility] [address] [id number] [place] [address] May, [facility] [address] [id number] [place] [address] 25 Mar, 2011 [facility] [address] [id number] [place] [address] Mar, [facility] [address] [id number] [place] [address] 19 Mar, 2011 [facility] [address] [id number] [place] [address] 15 Mar, 2011 [facility] [address] [id number] [place] [address] 27 Mar, 2010 [facility] [address] [id number] [place] [address] 13 Mar, 2010 [facility] [address] [id number] [place] [address] 10 Jan, 2010 [facility] [address] [id number] [place] [address] 31 May, 2009 [facility] [address] [id number] [place] [address] May, [facility] [address] [id number] [place] [address] May, [facility] [address] [id number] [place] [address] May, [facility] [address] [id number] [place] [address] May, [facility] [address] [id number] [place] [address] May, [facility] [address] [id number] [place] [address] Mar, [facility] [address] [id number] [place] [address] Sep, IMMUNIZATIONS No Known Immunizations SOCIAL HISTORY Never Assessed REASON FOR VISIT tooth pain PLAN OF CARE VITAL SIGNS MEDICATIONS [...]
[2019-12-30] MEDS ORDERED: cefTRIAXone FOR IV USE 1,000 MG in WATER (STERILE) FOR INJECTION 10 ML IV ONE (23:45)
--- OUTSIDE RECORDS SUMMARY | 2019-12-30 23:45 | XMS REPORT ---
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 [id number] [place] [address] Jul, [facility] [place] [facility] [address] [id number] [place] [address] Jul, [facility] [place] [facility] [address] [id number] [place] [address] Jul, [facility] [place] [facility] [address] [id number] [place] [address] Jul, [facility] [place] [facility] [address] [id number] [place] [address] May, [facility] [place] [facility] [address] [id number] [place] [address] May, [facility] [place] [facility] [address] [id number] [place] [address] May, [facility] [place] [facility] [address] [id number] [place] [address] May, [facility] [place] [facility] [address] [id number] [place] [address] May, [facility] [place] [facility] [address] [id number] [place] [address] May, [facility] [place] [facility] [address] [id number] [place] [address] May, [facility] [place] [facility] [address] [id number] [place] [address] May, [facility] [place] [facility] [address] [id number] [place] [address] May, [facility] [place] [facility] [address] [id number] [place] [address] May, [facility] [place] [facility] [address] [id number] [place] [address] May, [facility] [place] [facility] [address] [id number] [place] [address] 17 May, 2014 [facility] [place] [facility] [address] [facility] [id number] [place] [address] May, [facility] [place] [facility] [address] [id number] [place] [address] May, [facility] [place] [facility] [address] [id number] [place] [address] May, [facility] [place] [facility] [address] [id number] [place] [address] May, [facility] [place] [facility] [address] [facility] [id number] [place] [address] May, [facility] [place] [facility] [address] [id number] [place] [address] May, [facility] [place] [facility] [address] [id number] [place] [address] May, [facility] [place] [facility] [address] [id number] [place] [address] May, [facility] [place] [facility] [address] [id number] [place] [address] May, [facility] [place] [facility] [address] [id number] [place] [address] 24 May, 2014 [facility] [place] [facility] [address] [id number] [place] [address] 15 May, 2014 [facility] [place] [facility] [address] [id number] [place] [address] 15 May, 2014 [facility] [place] [facility] [address] [id number] [place] [address] May, [facility] [place] [facility] [address] [id number] [place] [address] May, [facility] [place] [facility] [address] [id number] [place] [address] May, [facility] [place] [facility] [address] [id number] [place] [address] May, [facility] [place] [facility] [address] [id number] [place] [address] May, [facility] [place] [facility] [address] [id number] [place] [address] May, [facility] [place] [facility] [address] [id number] [place] [address] May, [facility] [place] [facility] [address] [id number] [place] [address] May, [facility] [place] [facility] [address] [id number] [place] [address] May, [facility] [place] [facility] [address] [id number] [place] [address] May, [facility] [place] [facility] [address] [id number] [place] [address] May, [facility] [place] [facility] [address] [id number] [place] [address] Mar, [facility] [place] [facility] [address] [id number] [place] [address] Mar, [facility] [place] [facility] [address] [id number] [place] [address] Mar, [facility] [place] [facility] [address] [id number] [place] [address] Mar, [facility] [place] [facility] [address] [id number] [place] [address] Mar, [facility] [place] [facility] [address] [id number] [place] [address] Mar, [facility] [place] [facility] [address] [id number] [place] [address] Mar, [facility] [place] [facility] [address] [id number] [place] [address] Mar, [facility] [place] [facility] [address] [id number] [place] [address] Mar, [facility] [place] [facility] [address] [id number] [place] [address] 24 Mar, 2014 [facility] [place] [facility] [address] [id number] [place] [address] 08 Mar, 2013 [facility] [place] [facility] [address] [facility] [id number] [place] [address] Mar, [facility] [place] [facility] [address] [facility] [id number] [place] [address] Mar, [facility] [place] [facility] [address] [id number] [place] [address] Mar, [facility] [place] [facility] [address] [facility] [id number] [place] [address] Jan, [facility] [place] [facility] [address] [id number] [place] [address] Jan, [facility] [place] [facility] [address] [id number] [place] [address] Jan, [facility] [place] [facility] [address] [id number] [place] [address] Jan, [facility] [place] [facility] [address] [id number] [place] [address] Jan, [facility] [place] [facility] [address] [id number] [place] [address] Jan, [facility] [place] [facility] [address] [id number] [place] [address] Jan, [facility] [place] [facility] [address] [id number] [place] [address] Jan, [facility] [place] [facility] [address] [id number] [place] [address] Jan, [facility] [place] [facility] [address] [facility] [id number] [place] [address] Dec, [facility] [place] [facility] [address] [id number] [place] [address] Dec, [facility] [place] [facility] [address] [id number] [place] [address] Dec, [facility] [place] [facility] [address] [id number] [place] [address] Dec, [facility] [place] [facility] [address] [facility] [id number] [place] [address] Dec, [facility] [place] [facility] [address] [facility] [id number] [place] [address] Dec, [facility] [place] [facility] [address] [facility] [id number] [place] [address] Dec, [facility] [place] [facility] [address] [facility] [id number] [place] [address] Dec, [facility] [place] [facility] [address] [facility] [id number] [place] [address] Dec, [facility] [place] [facility] [address] [id number] [place] [address] October, [facility] [place] [facility] [address] [facility] [id number] [place] [address] October, [facility] [place] [facility] [address] [id number] [place] [address] Sep, [facility] [place] [facility] [address] [facility] [id number] [place] [address] Sep, [facility] [place] [facility] [address] [id number] [place] [address] Aug, [facility] [place] [facility] [address] [id number] [place] [address] Aug, [facility] [place] [facility] [address] [id number] [place] [address] Aug, [facility] [place] [facility] [address] [facility] [id number] [place] [address] Aug, [facility] [place] [facility] [address] [facility] [id number] [place] [address] Aug, [facility] [place] [facility] [address] [facility] [id number] [place] [address] Aug, [facility] [place] [facility] [address] [id number] [place] [address] Aug, [facility] [place] [facility] [address] [id number] [place] [address] 07 Aug, 2013 [facility] [place] [facility] [address] [id number] [place] [address] Aug, [facility] [place] [facility] [address] [id number] [place] [address] Aug, [facility] [place] [facility] [address] [id number] [place] [address] Aug, [facility] [place] [facility] [address] [id number] [place] [address] Jul, [facility] [place] [facility] [address] [id number] [place] [address] Jul, [facility] [place] [facility] [address] [id number] [place] [address] May, [facility] [place] [facility] [address] [id number] [place] [address] May, [facility] [place] [facility] [address] [id number] [place] [address] May, [facility] [place] [facility] [address] [id number] [place] [address] May, [facility] [place] [facility] [address] [id number] [place] [address] May, [facility] [place] [facility] [address] [id number] [place] [address] May, [facility] [place] [facility] [address] [id number] [place] [address] May, [facility] [place] [facility] [address] [id number] [place] [address] May, [facility] [place] [facility] [id number] [place] [address] May, [facility] [place] [facility] [address] [id number] [place] [address] May, [facility] [place] [facility] [id number] [place] [address] May, [facility] [place] [facility] [address] [id number] [place] [address] May, [facility] [place] [facility] [address] [id number] [place] [address] May, [facility] [address] [id number] [place] [address] May, [facility] [address] [id number] [place] [address] May, [facility] [address] [id number] [place] [address] May, [facility] [address] [id number] [place] [address] 18 May, 2013 [facility] [address] [id number] [place] [address] 18 May, 2013 [facility] [address] [id number] [place] [address] 16 May, 2013 [facility] [address] [id number] [place] [address] 16 May, 2013 [facility] [address] [id number] [place] [address] May, [facility] [address] [id number] [place] [address] May, [facility] [address] [id number] [place] [address] May, [facility] [address] [id number] [place] [address] May, [facility] [address] [id number] [place] [address] May, [facility] [address] [id number] [place] [address] 09 May, 2013 [facility] [address] [id number] [place] [address] May, [facility] [address] [id number] [place] [address] May, [facility] [address] [facility] [id number] [place] [address] May, [facility] [address] [facility] [id number] [place] [address] May, [facility] [address] [id number] [place] [address] Mar, [facility] [address] [id number] [place] [address] Mar, [facility] [address] [facility] [id number] [place] [address] Mar, [facility] [address] [id number] [place] [address] Mar, [facility] [address] [id number] [place] [address] 30 Mar, 2013 [facility] [address] [id number] [place] [address] Mar, [facility] [address] [id number] [place] [address] Mar, [facility] [address] [id number] [place] [address] Mar, [facility] [address] [id number] [place] [address] Mar, [facility] [address] [id number] [place] [address] Mar, [facility] [address] [facility] [id number] [place] [address] Mar, [facility] [address] [id number] [place] [address] 24 Mar, 2013 [facility] [address] [id number] [place] [address] 24 Mar, 2013 [facility] [address] [id number] [place] [address] Mar, 2012 [facility] [address] [facility] [id number] [place] [address] 22 Mar, 2013 [facility] [address] [facility] [id number] [place] [address] 21 Mar, 2013 [facility] [address] [facility] [id number] [place] [address] 21 Mar, 2013 [facility] [address] [id number] [place] [address] 18 Mar, 2013 [facility] [address] [id number] [place] [address] 18 Mar, 2013 [facility] [address] [id number] [place] [address] 18 Mar, 2013 [facility] [address] [id number] [place] [address] 18 Mar, 2013 [facility] [address] [id number] [place] [address] 14 Mar, 2013 [facility] [address] [id number] [place] [address] 14 Mar, 2013 [facility] [address] [id number] [place] [address] 10 Mar, 2013 [facility] [address] [id number] [place] [address] 18 Mar, 2013 [facility] [address] [id number] [place] [address] 12 Mar, 2013 [facility] [address] [id number] [place] [address] 11 Mar, 2013 [facility] [address] [facility] [id number] [place] [address] Jan, [facility] [address] [id number] [place] [address] October, [facility] [address] [id number] [place] [address] Sep, [facility] [address] [id number] [place] [address] 15 Sep, 2012 [facility] [address] [id number] [place] [address] 07 Aug, 2012 [facility] [address] [id number] [place] [address] 06 Aug, 2012 [facility] [address] [id number] [place] [address] Aug, [facility] [address] [id number] [place] [address] Jul, [facility] [address] [id number] [place] [address] May, [facility] [address] [id number] [place] [address] May, [facility] [address] [id number] [place] [address] May, [facility] [id number] [place] [address] 18 May, 2012 [facility] [address] [id number] [place] [address] Mar, [facility] [id number] [place] [id number] 19 Mar, 2012 [facility] [id number] [place] [address] 16 Mar, 2012 [facility] [id number] [place] [address] 25 Mar, 2012 [facility] [id number] [place] [address] 19 Mar, 2012 [facility] [id number] [place] [address] 13 Mar, 2012 [facility] [id number] [place] [address] 07 Mar, 2012 [facility] [id number] [place] [address] 30 Jan, 2012 [facility] [id number] [place] [place] [address] Jan, 2011 [facility] [address] [id number] [place] [address] Jan, [facility] [address] [facility] [id number] [place] [address] Jan, [facility] [id number] [place] [address] Jan, [facility] [id number] [place] [address] Jan, [facility] [address] [id number] [place] [address] Jan, [facility] [id number] [place] [address] Jan, [facility] [id number] [place] [address] Jan, [facility] [id number] [place] [address] Jan, [facility] [id number] [place] [address] Jan, [facility] [id number] [place] [address] Jan, [facility] [id number] [place] [address] Jan, [facility] [id number] [place] [address] Jan, [facility] [address] [id number] [place] [address] Jan, [facility] [address] [id number] [place] [address] Jan, [facility] [id number] [place] [address] Dec, [facility] [id number] [place] [address] Dec, [facility] [id number] [place] [address] Nov, [facility] [id number] [place] [address] Nov, [facility] [id number] [place] [address] October, [facility] [id number] [place] [address] October, [facility] [id number] [place] [address] October, [facility] [id number] [place] [address] Sep, [facility] [id number] [place] [address] Sep, [facility] [id number] [place] [address] Aug, [facility] [id number] [place] [address] Aug, [facility] [id number] [place] [address] Aug, [facility] [id number] [place] [address] Aug, [facility] [id number] [place] [address] Aug, [facility] [id number] [place] [address] 14 Aug, 2011 [facility] [id number] [place] [address] Aug, [facility] [id number] [place] [address] Jul, [facility] [id number] [place] [address] Jul, [facility] [id number] [place] [address] Jul, [facility] [id number] [place] [address] May, [facility] [id number] [place] [address] May, [facility] [id number] [place] [address] May, [facility] [id number] [place] [address] May, [facility] [id number] [place] [address] May, [facility] [id number] [place] [address] May, [facility] [id number] [place] [address] May, [facility] [id number] [place] [address] Mar, [facility] [id number] [place] [address] Mar, [facility] [id number] [place] [address] Mar, [facility] [id number] [place] [address] Mar, [facility] [id number] [place] [address] Mar, [facility] [id number] [place] [address] Mar, [facility] [id number] [place] [address] Jan, [facility] [id number] [place] [address] 31 May, 2009 [facility] [id number] [place] [address] 16 May, 2009 [facility] [id number] [place] [address] May, [facility] [id number] [place] [address] May, [facility] [id number] [place] [address] May, [facility] [id number] [place] [address] May, [facility] [id number] [place] [address] Mar, [facility] [id number] [place] [address] Sep, IMMUNIZATIONS No Known Immunizations SOCIAL HISTORY [...]
--- OUTSIDE RECORDS SUMMARY | 2019-12-30 23:46 | XMS REPORT ---
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 [address] [id number] [place] [address] Jul, [facility] [place] [facility] [address] [id number] [place] [address] Jul, [facility] [place] [facility] [address] [id number] [place] [address] Jul, [facility] [place] [facility] [address] [id number] [place] [address] May, [facility] [place] [facility] [address] [id number] [place] [address] May, [facility] [place] [facility] [address] [id number] [place] [address] May, [facility] [place] [facility] [address] [id number] [place] [address] May, [facility] [place] [facility] [address] [id number] [place] [address] May, [facility] [place] [facility] [address] [id number] [place] [address] May, [facility] [place] [facility] [address] [id number] [place] [address] May, [facility] [place] [facility] [address] [id number] [place] [address] May, [facility] [place] [facility] [address] [id number] [place] [address] May, [facility] [place] [facility] [address] [id number] [place] [address] May, [facility] [place] [facility] [address] [id number] [place] [address] May, [facility] [place] [facility] [address] [id number] [place] [address] 17 May, 2014 [facility] [place] [facility] [address] [facility] [id number] [place] [address] May, [facility] [place] [facility] [address] [id number] [place] [address] May, [facility] [place] [facility] [address] [id number] [place] [address] May, [facility] [place] [facility] [address] [id number] [place] [address] May, [facility] [place] [facility] [address] [facility] [id number] [place] [address] May, [facility] [place] [facility] [address] [id number] [place] [address] May, [facility] [place] [facility] [address] [id number] [place] [address] May, [facility] [place] [facility] [address] [id number] [place] [address] May, [facility] [place] [facility] [address] [id number] [place] [address] May, [facility] [place] [facility] [address] [id number] [place] [address] 24 May, 2014 [facility] [place] [facility] [address] [id number] [place] [address] 15 May, 2014 [facility] [place] [facility] [address] [id number] [place] [address] 15 May, 2014 [facility] [place] [facility] [address] [id number] [place] [address] May, [facility] [place] [facility] [address] [id number] [place] [address] May, [facility] [place] [facility] [address] [id number] [place] [address] May, [facility] [place] [facility] [address] [id number] [place] [address] May, [facility] [place] [facility] [address] [id number] [place] [address] May, [facility] [place] [facility] [address] [id number] [place] [address] May, [facility] [place] [facility] [address] [id number] [place] [address] May, [facility] [place] [facility] [address] [id number] [place] [address] May, [facility] [place] [facility] [address] [id number] [place] [address] May, [facility] [place] [facility] [address] [id number] [place] [address] May, [facility] [place] [facility] [address] [id number] [place] [address] May, [facility] [place] [facility] [address] [id number] [place] [address] Mar, [facility] [place] [facility] [address] [id number] [place] [address] Mar, [facility] [place] [facility] [address] [id number] [place] [address] Mar, [facility] [place] [facility] [address] [id number] [place] [address] Mar, [facility] [place] [facility] [address] [id number] [place] [address] Mar, [facility] [place] [facility] [address] [id number] [place] [address] Mar, [facility] [place] [facility] [address] [id number] [place] [address] Mar, [facility] [place] [facility] [address] [id number] [place] [address] Mar, [facility] [place] [facility] [address] [id number] [place] [address] Mar, [facility] [place] [facility] [address] [id number] [place] [address] 24 Mar, 2014 [facility] [place] [facility] [address] [id number] [place] [address] 08 Mar, 2013 [facility] [place] [facility] [address] [facility] [id number] [place] [address] Mar, [facility] [place] [facility] [address] [facility] [id number] [place] [address] Mar, [facility] [place] [facility] [address] [id number] [place] [address] Mar, [facility] [place] [facility] [address] [facility] [id number] [place] [address] Jan, [facility] [place] [facility] [address] [id number] [place] [address] Jan, [facility] [place] [facility] [address] [id number] [place] [address] Jan, [facility] [place] [facility] [address] [id number] [place] [address] Jan, [facility] [place] [facility] [address] [id number] [place] [address] Jan, [facility] [place] [facility] [address] [id number] [place] [address] Jan, [facility] [place] [facility] [address] [id number] [place] [address] Jan, [facility] [place] [facility] [address] [id number] [place] [address] Jan, [facility] [place] [facility] [address] [id number] [place] [address] Jan, [facility] [place] [facility] [address] [facility] [id number] [place] [address] Dec, [facility] [place] [facility] [address] [id number] [place] [address] Dec, [facility] [place] [facility] [address] [id number] [place] [address] Dec, [facility] [place] [facility] [address] [id number] [place] [address] Dec, [facility] [place] [facility] [address] [facility] [id number] [facility] [place] [address] Dec, [facility] [place] [facility] [address] [facility] [id number] [place] [address] Dec, [facility] [place] [facility] [address] [facility] [id number] [facility] [place] [address] Dec, [facility] [place] [facility] [address] [facility] [id number] [place] [address] Dec, [facility] [place] [facility] [address] [facility] [id number] [place] [address] Dec, [facility] [place] [facility] [address] [id number] [facility] [place] [address] October, [facility] [place] [facility] [address] [facility] [id number] [place] [address] October, [facility] [place] [facility] [address] [id number] [place] [address] Sep, [facility] [place] [facility] [address] [facility] [id number] [facility] [place] [address] Sep, [facility] [place] [facility] [address] [id number] [place] [address] Aug, [facility] [place] [facility] [address] [id number] [place] [address] Aug, [facility] [place] [facility] [address] [id number] [place] [address] Aug, [facility] [place] [facility] [address] [facility] [id number] [place] [address] Aug, [facility] [place] [facility] [address] [facility] [id number] [place] [address] Aug, [facility] [place] [facility] [address] [facility] [id number] [place] [address] Aug, [facility] [place] [facility] [address] [id number] [place] [address] Aug, [facility] [place] [facility] [address] [id number] [place] [address] 07 Aug, 2013 [facility] [place] [facility] [address] [id number] [place] [address] Aug, [facility] [place] [facility] [address] [id number] [place] [address] Aug, [facility] [place] [facility] [address] [id number] [place] [address] Aug, [facility] [place] [facility] [address] [id number] [place] [address] Jul, [facility] [place] [facility] [address] [id number] [place] [address] Jul, [facility] [place] [facility] [address] [id number] [place] [address] May, [facility] [place] [facility] [address] [id number] [place] [address] May, [facility] [place] [facility] [address] [id number] [place] [address] May, [facility] [place] [facility] [address] [id number] [place] [address] May, [facility] [place] [facility] [address] [id number] [place] [address] May, [facility] [place] [facility] [address] [id number] [place] [address] May, [facility] [place] [facility] [address] [id number] [place] [address] May, [facility] [place] [facility] [address] [id number] [place] [address] May, [facility] [place] [facility] [id number] [place] [address] May, [facility] [place] [facility] [address] [id number] [place] [address] May, [facility] [place] [facility] [id number] [place] [address] May, [facility] [place] [facility] [address] [id number] [place] [address] May, [facility] [place] [facility] [address] [id number] [place] [address] May, [facility] [place] [facility] [address] [id number] [place] [address] May, [facility] [place] [facility] [address] [id number] [place] [address] May, [facility] [place] [facility] [address] [id number] [place] [address] May, [facility] [place] [facility] [address] [id number] [place] [address] 18 May, 2013 [facility] [place] [facility] [address] [id number] [place] [address] 18 May, 2013 [facility] [place] [facility] [address] [id number] [place] [address] 16 May, 2013 [facility] [place] [facility] [address] [id number] [place] [address] 16 May, 2013 [facility] [place] [facility] [address] [id number] [place] [address] May, [facility] [address] [id number] [place] [address] May, [facility] [address] [id number] [place] [address] May, [facility] [address] [id number] [place] [address] May, [facility] [address] [id number] [place] [address] May, [facility] [address] [id number] [place] [address] 09 May, 2013 [facility] [address] [id number] [place] [address] May, [facility] [address] [id number] [place] [address] May, [facility] [address] [facility] [id number] [place] [address] May, [facility] [address] [facility] [id number] [place] [address] May, [facility] [address] [id number] [place] [address] Mar, [facility] [address] [id number] [place] [address] Mar, [facility] [address] [facility] [id number] [place] [address] Mar, [facility] [address] [id number] [place] [address] Mar, [facility] [address] [id number] [place] [address] 30 Mar, 2013 [facility] [address] [id number] [place] [address] Mar, [facility] [address] [id number] [place] [address] Mar, [facility] [address] [id number] [place] [address] Mar, [facility] [address] [id number] [place] [address] Mar, [facility] [address] [id number] [place] [address] Mar, [facility] [address] [facility] [id number] [place] [address] Mar, [facility] [address] [id number] [place] [address] 24 Mar, 2013 [facility] [address] [id number] [place] [address] 24 Mar, 2013 [facility] [address] [id number] [place] [address] Mar, 2012 [facility] [address] [facility] [id number] [place] [address] 22 Mar, 2013 [facility] [address] [facility] [id number] [place] [address] 21 Mar, 2013 [facility] [address] [facility] [id number] [place] [address] 21 Mar, 2013 [facility] [address] [id number] [place] [address] 18 Mar, 2013 [facility] [address] [id number] [place] [address] 18 Mar, 2013 [facility] [address] [id number] [place] [address] 18 Mar, 2013 [facility] [address] [id number] [place] [address] 18 Mar, 2013 [facility] [address] [id number] [place] [address] 14 Mar, 2013 [facility] [address] [id number] [place] [address] 14 Mar, 2013 [facility] [address] [id number] [place] [address] 10 Mar, 2013 [facility] [address] [id number] [place] [address] 18 Mar, 2013 [facility] [address] [id number] [place] [address] 12 Mar, 2013 [facility] [address] [id number] [place] [address] 11 Mar, 2013 [facility] [address] [facility] [id number] [place] [address] Jan, [facility] [address] [id number] [place] [address] October, [facility] [address] [id number] [place] [address] Sep, [facility] [address] [id number] [place] [address] 15 Sep, 2012 [facility] [address] [id number] [place] [address] 07 Aug, 2012 [facility] [address] [id number] [place] [address] 06 Aug, 2012 [facility] [address] [id number] [place] [address] Aug, [facility] [address] [id number] [place] [address] Jul, [facility] [address] [id number] [place] [address] May, [facility] [address] [id number] [place] [id number] May, [facility] [address] [id number] [place] [address] May, [facility] [id number] [place] [address] 18 May, 2012 [facility] [address] [id number] [place] [address] Mar, [facility] [address] [id number] [place] [address] 19 Mar, 2012 [facility] [address] [id number] [place] [address] 16 Mar, 2012 [facility] [id number] [place] [address] 25 Mar, 2012 [facility] [address] [id number] [place] [address] 19 Mar, 2012 [facility] [address] [id number] [place] [address] 13 Mar, 2012 [facility] [address] [id number] [place] [address] 07 Mar, 2012 [facility] [address] [id number] [place] [address] 30 Jan, 2012 [facility] [address] [id number] [facility] [place] [address] Jan, 2011 [facility] [address] [id number] [facility] [place] [address] Jan, [facility] [address] [facility] [id number] [facility] [place] [address] Jan, [facility] [address] [id number] [facility] [place] [address] Jan, [facility] [address] [id number] [place] [address] Jan, [facility] [address] [id number] [facility] [place] [address] Jan, [facility] [address] [id number] [place] [address] Jan, [facility] [address] [id number] [place] [address] Jan, [facility] [address] [id number] [place] [address] Jan, [facility] [address] [id number] [place] [address] Jan, [facility] [address] [id number] [place] [address] Jan, [facility] [address] [id number] [place] [address] Jan, [facility] [address] [id number] [place] [address] Jan, [facility] [address] [id number] [place] [address] Jan, [facility] [address] [id number] [place] [address] Jan, [facility] [address] [id number] [place] [address] Dec, [facility] [address] [id number] [place] [address] Dec, [facility] [address] [id number] [place] [address] Nov, [facility] [address] [id number] [place] [address] Nov, [facility] [address] [id number] [place] [address] October, [facility] [address] [id number] [place] [address] October, [facility] [address] [id number] [place] [address] October, [facility] [address] [id number] [place] [address] Sep, [facility] [address] [id number] [place] [address] Sep, [facility] [address] [id number] [place] [address] Aug, [facility] [address] [id number] [place] [address] Aug, [facility] [address] [id number] [place] [address] Aug, [facility] [address] [id number] [place] [address] Aug, [facility] [address] [id number] [place] [address] Aug, [facility] [address] [id number] [place] [address] 14 Aug, 2011 [facility] [address] [id number] [place] [address] Aug, [facility] [address] [id number] [place] [address] Jul, [facility] [address] [id number] [place] [address] Jul, [facility] [address] [id number] [place] [address] Jul[facility] [address] [id number] [place] [address] May, [facility] [address] [id number] [place] [address] May, [facility] [address] [id number] [place] [address] May, [facility] [address] [id number] [place] [address] May, [facility] [address] [id number] [place] [address] May, [facility] [address] [id number] [place] [address] May, [facility] [address] [id number] [place] [address] May, [facility] [address] [id number] [place] [address] Mar, [facility] [address] [id number] [place] [address] Mar, [facility] [address] [id number] [place] [address] Mar, [facility] [address] [id number] [place] [address] Mar, [facility] [address] [id number] [place] [address] Mar, [facility] [address] [id number] [place] [address] Mar, [facility] [address] [id number] [place] [address] Jan, [facility] [address] [id number] [place] [address] 31 May, 2009 [facility] [address] [id number] [place] [address] 16 May, 2009 [facility] [address] [id number] [place] [address] May, [facility] [address] [id number] [place] [address] May, [facility] [address] [id number] [place] [address] May, [facility] [address] [id number] [place] [address] May, [facility] [address] [id number] [place] [address] Mar, [facility] [address] [id number] [place] [address] Sep, IMMUNIZATIONS No Known Immunizations SOCIAL HISTORY [...]
--- OUTSIDE RECORDS SUMMARY | 2019-12-30 23:46 | XMS REPORT ---
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 [facility] [place] [facility] [address] [id number] [place] [address] Jul, [facility] [place] [facility] [address] [id number] [place] [address] Jul, [facility] [place] [facility] [address] [id number] [place] [address] Jul, [facility] [place] [facility] [address] [id number] [place] [address] May, [facility] [place] [facility] [address] [id number] [place] [address] May, [facility] [place] [facility] [address] [id number] [place] [address] May, [facility] [place] [facility] [address] [id number] [place] [address] May, [facility] [place] [facility] [address] [id number] [place] [address] May, [facility] [place] [facility] [address] [id number] [place] [address] May, [facility] [place] [facility] [address] [id number] [place] [address] May, [facility] [place] [facility] [address] [id number] [place] [address] May, [facility] [place] [facility] [address] [id number] [place] [address] May, [facility] [place] [facility] [address] [id number] [place] [address] May, [facility] [place] [facility] [address] [id number] [place] [address] May, [facility] [place] [facility] [address] [id number] [place] [address] 17 May, 2014 [facility] [place] [facility] [address] [facility] [id number] [place] [address] May, [facility] [place] [facility] [address] [id number] [place] [address] May, [facility] [place] [facility] [address] [id number] [place] [address] May, [facility] [place] [facility] [address] [id number] [place] [address] May, [facility] [place] [facility] [address] [facility] [id number] [place] [address] May, [facility] [place] [facility] [address] [id number] [place] [address] May, [facility] [place] [facility] [address] [id number] [place] [address] May, [facility] [place] [facility] [address] [id number] [place] [address] May, [facility] [place] [facility] [address] [id number] [place] [address] May, [facility] [place] [facility] [address] [id number] [place] [address] 24 May, 2014 [facility] [place] [facility] [address] [id number] [place] [address] 15 May, 2014 [facility] [place] [facility] [address] [id number] [place] [address] 15 May, 2014 [facility] [place] [facility] [address] [id number] [place] [address] May, [facility] [place] [facility] [address] [id number] [place] [address] May, [facility] [place] [facility] [address] [id number] [place] [address] May, [facility] [place] [facility] [address] [id number] [place] [address] May, [facility] [place] [facility] [address] [id number] [place] [address] May, [facility] [place] [facility] [address] [id number] [place] [address] May, [facility] [place] [facility] [address] [id number] [place] [address] May, [facility] [place] [facility] [address] [id number] [place] [address] May, [facility] [place] [facility] [address] [id number] [place] [address] May, [facility] [place] [facility] [address] [id number] [place] [address] May, [facility] [place] [facility] [address] [id number] [place] [address] May, [facility] [place] [facility] [address] [id number] [place] [address] Mar, [facility] [place] [facility] [address] [id number] [place] [address] Mar, [facility] [place] [facility] [address] [id number] [place] [address] Mar, [facility] [place] [facility] [address] [id number] [place] [address] Mar, [facility] [place] [facility] [address] [id number] [place] [address] Mar, [facility] [place] [facility] [address] [id number] [place] [address] Mar, [facility] [place] [facility] [address] [id number] [place] [address] Mar, [facility] [place] [facility] [address] [id number] [place] [address] Mar, [facility] [place] [facility] [address] [id number] [place] [address] Mar, [facility] [place] [facility] [address] [id number] [place] [address] 24 Mar, 2014 [facility] [place] [facility] [address] [id number] [place] [address] 08 Mar, 2013 [facility] [place] [facility] [address] [facility] [id number] [place] [address] Mar, [facility] [place] [facility] [address] [facility] [id number] [place] [address] Mar, [facility] [place] [facility] [address] [id number] [place] [address] Mar, [facility] [place] [facility] [address] [facility] [id number] [place] [address] Jan, [facility] [place] [facility] [address] [id number] [place] [address] Jan, [facility] [place] [facility] [address] [id number] [place] [address] Jan, [facility] [place] [facility] [address] [id number] [place] [address] Jan, [facility] [place] [facility] [address] [id number] [place] [address] Jan, [facility] [place] [facility] [address] [id number] [place] [address] Jan, [facility] [place] [facility] [address] [id number] [place] [address] Jan, [facility] [place] [facility] [address] [id number] [place] [address] Jan, [facility] [place] [facility] [address] [id number] [place] [address] Jan, [facility] [place] [facility] [address] [facility] [id number] [place] [address] Dec, [facility] [place] [facility] [address] [id number] [place] [address] Dec, [facility] [place] [facility] [address] [id number] [place] [address] Dec, [facility] [place] [facility] [address] [id number] [place] [address] Dec, [facility] [place] [facility] [address] [facility] [id number] [facility] [place] [address] Dec, [facility] [place] [facility] [address] [facility] [id number] [place] [address] Dec, [facility] [place] [facility] [address] [facility] [id number] [facility] [place] [address] Dec, [facility] [place] [facility] [address] [facility] [id number] [place] [address] Dec, [facility] [place] [facility] [address] [facility] [id number] [place] [address] Dec, [facility] [place] [facility] [address] [id number] [facility] [place] [address] October, [facility] [place] [facility] [address] [facility] [id number] [place] [address] October, [facility] [place] [facility] [address] [id number] [place] [address] Sep, [facility] [place] [facility] [address] [facility] [id number] [facility] [place] [address] Sep, [facility] [place] [facility] [address] [id number] [place] [address] Aug, [facility] [place] [facility] [address] [id number] [place] [address] Aug, [facility] [place] [facility] [address] [id number] [place] [address] Aug, [facility] [place] [facility] [address] [facility] [id number] [place] [address] Aug, [facility] [place] [facility] [address] [facility] [id number] [place] [address] Aug, [facility] [place] [facility] [address] [facility] [id number] [place] [address] Aug, [facility] [place] [facility] [address] [id number] [place] [address] Aug, [facility] [place] [facility] [address] [id number] [place] [address] 07 Aug, 2013 [facility] [place] [facility] [address] [id number] [place] [address] Aug, [facility] [place] [facility] [address] [id number] [place] [address] Aug, [facility] [place] [facility] [address] [id number] [place] [address] Aug, [facility] [place] [facility] [address] [id number] [place] [address] Jul, [facility] [place] [facility] [address] [id number] [place] [address] Jul, [facility] [place] [facility] [address] [id number] [place] [address] May, [facility] [place] [facility] [address] [id number] [place] [address] May, [facility] [place] [facility] [address] [id number] [place] [address] May, [facility] [place] [facility] [address] [id number] [place] [address] May, [facility] [place] [facility] [address] [id number] [place] [address] May, [facility] [place] [facility] [address] [id number] [place] [address] May, [facility] [place] [facility] [address] [id number] [place] [address] May, [facility] [place] [facility] [address] [id number] [place] [address] May, [facility] [place] [facility] [id number] [place] [address] May, [facility] [place] [facility] [address] [id number] [place] [address] May, [facility] [place] [facility] [id number] [place] [address] May, [facility] [place] [facility] [address] [id number] [place] [address] May, [facility] [place] [facility] [address] [id number] [place] [address] May, [facility] [place] [facility] [address] [id number] [place] [address] May, [facility] [address] [id number] [place] [address] May, [facility] [address] [id number] [place] [address] May, [facility] [address] [id number] [place] [address] 18 May, 2013 [facility] [address] [id number] [place] [address] 18 May, 2013 [facility] [address] [id number] [place] [address] 16 May, 2013 [facility] [address] [id number] [place] [address] 16 May, 2013 [facility] [address] [id number] [place] [address] May, [facility] [address] [id number] [place] [address] May, [facility] [address] [id number] [place] [address] May, [facility] [address] [id number] [place] [address] May, [facility] [address] [id number] [place] [address] May, [facility] [address] [id number] [place] [address] 09 May, 2013 [facility] [address] [id number] [place] [address] May, [facility] [address] [id number] [place] [address] May, [facility] [address] [facility] [id number] [place] [address] May, [facility] [address] [facility] [id number] [place] [address] May, [facility] [address] [id number] [place] [address] Mar, [facility] [address] [id number] [place] [address] Mar, [facility] [address] [facility] [id number] [place] [address] Mar, [facility] [address] [id number] [place] [address] Mar, [facility] [address] [id number] [place] [address] 30 Mar, 2013 [facility] [address] [id number] [place] [address] Mar, [facility] [address] [id number] [place] [address] Mar, [facility] [address] [id number] [place] [address] Mar, [facility] [address] [id number] [place] [address] Mar, [facility] [address] [id number] [place] [address] Mar, [facility] [address] [facility] [id number] [place] [address] Mar, [facility] [address] [id number] [place] [address] 24 Mar, 2013 [facility] [address] [id number] [place] [address] 24 Mar, 2013 [facility] [address] [id number] [place] [address] Mar, 2012 [facility] [address] [facility] [id number] [place] [address] 22 Mar, 2013 [facility] [address] [facility] [id number] [place] [address] 21 Mar, 2013 [facility] [address] [facility] [id number] [place] [address] 21 Mar, 2013 [facility] [address] [id number] [place] [address] 18 Mar, 2013 [facility] [address] [id number] [place] [address] 18 Mar, 2013 [facility] [address] [id number] [place] [address] 18 Mar, 2013 [facility] [address] [id number] [place] [address] 18 Mar, 2013 [facility] [address] [id number] [place] [address] 14 Mar, 2013 [facility] [address] [id number] [place] [address] 14 Mar, 2013 [facility] [address] [id number] [place] [address] 10 Mar, 2013 [facility] [address] [id number] [place] [address] 18 Mar, 2013 [facility] [address] [id number] [place] [address] 12 Mar, 2013 [facility] [address] [id number] [place] [address] 11 Mar, 2013 [facility] [address] [facility] [id number] [place] [address] Jan, [facility] [address] [id number] [place] [address] October, [facility] [address] [id number] [place] [address] Sep, [facility] [address] [id number] [place] [address] 15 Sep, 2012 [facility] [address] [id number] [place] [address] 07 Aug, 2012 [facility] [address] [id number] [place] [address] 06 Aug, 2012 [facility] [address] [id number] [place] [address] Aug, [facility] [address] [id number] [place] [address] Jul, [facility] [address] [id number] [place] [address] May, [facility] [address] [id number] [place] [address] May, [facility] [address] [id number] [place] [address] May, [facility] [id number] [place] [address] 18 May, 2012 [facility] [address] [id number] [place] [address] Mar, [facility] [id number] [place] [address] 19 Mar, 2012 [facility] [address] [id number] [place] [address] 16 Mar, 2012 [facility] [id number] [place] [address] 25 Mar, 2012 [facility] [address] [id number] [place] [address] 19 Mar, 2012 [facility] [address] [id number] [place] [address] 13 Mar, 2012 [facility] [address] [id number] [place] [address] 07 Mar, 2012 [facility] [address] [id number] [place] [address] 30 Jan, 2012 [facility] [address] [id number] [facility] [place] [place] [address] Jan, 2011 [facility] [address] [id number] [facility] [place] [address] Jan, [facility] [address] [facility] [id number] [facility] [place] [address] Jan, [facility] [address] [id number] [facility] [place] [address] Jan, [facility] [address] [id number] [place] [address] Jan, [facility] [address] [id number] [facility] [place] [address] Jan, [facility] [address] [id number] [place] [address] Jan, [facility] [address] [id number] [place] [address] Jan, [facility] [address] [id number] [place] [address] Jan, [facility] [address] [id number] [place] [address] Jan, [facility] [address] [id number] [place] [address] Jan, [facility] [address] [id number] [place] [address] Jan, [facility] [address] [id number] [place] [address] Jan, [facility] [address] [id number] [place] [address] Jan, [facility] [address] [id number] [place] [address] Jan, [facility] [address] [id number] [place] [address] Dec, [facility] [address] [id number] [place] [address] Dec, [facility] [address] [id number] [place] [address] Nov, [facility] [address] [id number] [place] [address] Nov, [facility] [address] [id number] [place] [address] October, [facility] [address] [id number] [place] [address] October, [facility] [address] [id number] [place] [address] October, [facility] [address] [id number] [place] [address] Sep, [facility] [address] [id number] [place] [address] Sep, [facility] [address] [id number] [place] [address] Aug, [facility] [address] [id number] [place] [address] Aug, [facility] [address] [id number] [place] [address] Aug, [facility] [address] [id number] [place] [address] Aug, [facility] [address] [id number] [place] [address] Aug, [facility] [address] [id number] [place] [address] 14 Aug, 2011 [facility] [address] [id number] [place] [address] Aug, [facility] [address] [id number] [place] [address] Jul, [facility] [address] [id number] [place] [address] Jul, [facility] [address] [id number] [place] [address] Jul, [facility] [address] [id number] [place] [address] May, [facility] [address] [id number] [place] [address] May, [facility] [address] [id number] [place] [address] May, [facility] [address] [id number] [place] [address] May, [facility] [address] [id number] [place] [address] May, [facility] [address] [id number] [place] [address] May, [facility] [address] [id number] [place] [address] May, [facility] [address] [id number] [place] [address] Mar, [facility] [address] [id number] [place] [address] Mar, [facility] [address] [id number] [place] [address] Mar, [facility] [address] [id number] [place] [address] Mar, [facility] [address] [id number] [place] [address] Mar, [facility] [address] [id number] [place] [address] Mar, [facility] [address] [id number] [place] [address] Jan, [facility] [address] [id number] [place] [address] 31 May, 2009 [facility] [address] [id number] [place] [address] 16 May, 2009 [facility] [address] [id number] [place] [address] May, [facility] [address] [id number] [place] [address] May, [facility] [address] [id number] [place] [address] May, [facility] [address] [id number] [place] [address] May, [facility] [address] [id number] [place] [address] Mar, [facility] [address] [id number] [place] [address] Sep, IMMUNIZATIONS No Known Immunizations SOCIAL HISTORY Never Assessed REASON FOR VISIT PLAN OF CARE VITAL SIGNS Height 64 in 2013-08-04 Weight 136 lbs 2013-08-04 Temperature 98.9 degrees Fahrenheit 2013-08-04 Heart Rate 76 bpm 2013-08-04 Respiratory Rate 20 2013-08-04 Blood pressure systolic 114 mmHg 2013-08-04 Blood pressure diastolic 68 mmHg 2013-08-04 MEDICATIONS Unknown Medications RESULTS No Results PROCEDURES Procedure Date Ordered Result Body Site URINALYSIS, AUTO, W/O SCOPE Aug 04, 2013 INSTRUCTIONS MEDICATIONS ADMINISTERED No Known Medications [...]
--- OUTSIDE RECORDS SUMMARY | 2019-12-30 23:47 | XMS REPORT ---
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 [address] [id number] [place] [address] May, [facility] [place] [facility] [address] [id number] [place] [address] May, [facility] [place] [facility] [address] [id number] [place] [address] May, [facility] [place] [facility] [address] [id number] [place] [address] May, [facility] [place] [facility] [address] [id number] [place] [address] May, [facility] [place] [facility] [address] [id number] [place] [address] May, [facility] [place] [facility] [address] [id number] [place] [address] May, [facility] [place] [facility] [address] [id number] [place] [address] May, [facility] [place] [facility] [address] [id number] [place] [address] May, [facility] [place] [facility] [address] [id number] [place] [address] May, [facility] [place] [facility] [address] [id number] [place] [address] 08 May, 2014 [facility] [place] [facility] [address] [id number] [place] [address] May, [facility] [place] [facility] [address] [id number] [place] [address] May, [facility] [place] [facility] [address] [id number] [place] [address] May, [facility] [place] [facility] [address] [id number] [place] [address] May, [facility] [place] [facility] [address] [id number] [place] [address] May, [facility] [place] [facility] [address] [id number] [place] [address] May, [facility] [place] [facility] [address] [id number] [place] [address] May, [facility] [place] [facility] [address] [id number] [place] [address] May, [facility] [place] [facility] [address] [id number] [place] [address] May, [facility] [place] [facility] [address] [id number] [place] [address] May, [facility] [place] [facility] [address] [id number] [place] [address] May, [facility] [place] [facility] [address] [id number] [place] [address] May, [facility] [place] [facility] [address] [id number] [place] [address] May, [facility] [place] [facility] [address] [id number] [place] [address] May, [facility] [place] [facility] [address] [id number] [place] [address] May, [facility] [place] [facility] [address] [id number] [place] [address] May, [facility] [place] [facility] [address] [id number] [place] [address] May, [facility] [place] [facility] [address] [facility] [id number] [place] [address] May, [facility] [place] [facility] [address] [id number] [place] [address] Mar, [facility] [place] [facility] [address] [id number] [place] [address] Mar, [facility] [place] [facility] [address] [id number] [place] [address] Mar, [facility] [place] [facility] [address] [id number] [place] [address] Mar, [facility] [place] [facility] [address] [id number] [place] [address] Mar, [facility] [place] [facility] [address] [id number] [place] [address] Mar, [facility] [place] [facility] [address] [id number] [place] [address] Mar, [facility] [place] [facility] [address] [id number] [place] [address] Mar, [facility] [place] [facility] [address] [id number] [place] [address] 24 Mar, 2014 [facility] [place] [facility] [address] [id number] [place] [address] 24 Mar, 2014 [facility] [place] [facility] [address] [id number] [place] [address] 08 Mar, 2013 [facility] [place] [facility] [address] [id number] [place] [address] 08 Mar, 2013 [facility] [place] [facility] [address] [id number] [place] [address] Mar, 2013 [facility] [place] [facility] [address] [id number] [place] [address] Mar, 2013 [facility] [place] [facility] [address] [id number] [place] [address] Jan, [facility] [place] [facility] [address] [id number] [facility] [place] [address] Jan, [facility] [place] [facility] [address] [id number] [facility] [place] [address] Jan, [facility] [place] [facility] [address] [facility] [id number] [facility] [place] [address] Jan, [facility] [place] [facility] [address] [facility] [id number] [facility] [place] [address] Jan, [facility] [place] [facility] [address] [facility] [id number] [place] [address] Jan, [facility] [place] [facility] [address] [id number] [facility] [place] [address] Jan, [facility] [place] [facility] [address] [facility] [id number] [place] [address] Jan, [facility] [place] [facility] [address] [id number] [place] [address] Jan, [facility] [place] [facility] [address] [facility] [id number] [facility] [place] [address] Dec, [facility] [place] [facility] [address] [facility] [id number] [place] [address] Dec, [facility] [place] [facility] [address] [facility] [id number] [place] [address] Dec, [facility] [place] [facility] [address] [facility] [id number] [place] [address] Dec, [facility] [place] [facility] [address] [facility] [id number] [place] [address] Dec, [facility] [place] [facility] [address] [id number] [place] [address] Dec, [facility] [place] [facility] [address] [facility] [id number] [place] [address] Dec, [facility] [place] [facility] [address] [facility] [id number] [place] [address] Dec, [facility] [place] [facility] [address] [facility] [id number] [facility] [place] [address] Dec, [facility] [place] [facility] [address] [id number] [place] [address] October, [facility] [place] [facility] [address] [id number] [facility] [place] [address] October, [facility] [place] [facility] [address] [id number] [place] [address] Sep, [facility] [place] [facility] [address] [id number] [place] [address] Sep, [facility] [place] [facility] [address] [id number] [place] [address] Aug, [facility] [place] [facility] [address] [id number] [place] [address] Aug, [facility] [place] [facility] [address] [id number] [place] [address] Aug, [facility] [place] [facility] [address] [id number] [place] [address] Aug, [facility] [place] [facility] [address] [id number] [place] [address] Aug, [facility] [place] [facility] [address] [id number] [place] [address] Aug, [facility] [place] [facility] [address] [id number] [place] [address] 14 Aug, 2013 [facility] [place] [facility] [address] [id number] [place] [address] Aug, [facility] [place] [facility] [address] [id number] [place] [address] Aug, [facility] [place] [facility] [address] [id number] [place] [address] Aug, [facility] [place] [facility] [address] [id number] [place] [address] Aug, [facility] [place] [facility] [address] [id number] [place] [address] Jul, [facility] [place] [facility] [address] [id number] [place] [address] Jul, [facility] [address] [id number] [place] [address] May, [facility] [address] [id number] [place] [address] May, [facility] [address] [id number] [place] [address] May, [facility] [address] [id number] [place] [address] May, [facility] [address] [id number] [place] [address] May, [facility] [address] [id number] [place] [address] May, [facility] [address] [id number] [place] [address] May, [facility] [address] [id number] [place] [address] May, [facility] [address] [id number] [place] [address] May, [facility] [address] [id number] [place] [address] May, [facility] [address] [id number] [place] [address] May, [facility] [address] [id number] [place] [address] May, [facility] [address] [id number] [place] [address] May, [facility] [id number] [place] [address] May, [facility] [address] [id number] [place] [address] May, [facility] [address] [id number] [place] [address] May, [facility] [address] [id number] [place] [address] May, [facility] [address] [id number] [place] [address] May, [facility] [address] [id number] [place] [address] May, [facility] [address] [id number] [place] [address] May, [facility] [address] [id number] [place] [address] May, [facility] [address] [id number] [place] [address] May, [facility] [address] [id number] [place] [address] May, [facility] [address] [id number] [place] [address] May, [facility] [address] [id number] [place] [address] May, [facility] [address] [id number] [place] [address] May, [facility] [address] [id number] [place] [address] May, [facility] [address] [id number] [place] [address] May, [facility] [address] [id number] [place] [address] May, [facility] [address] [id number] [place] [address] May, [facility] [address] [id number] [place] [address] Mar, [facility] [address] [id number] [place] [address] Mar, [facility] [address] [id number] [place] [address] 31 Mar, 2012 [facility] [address] [facility] [id number] [place] [address] 31 Mar, 2012 [facility] [address] [facility] [id number] [place] [address] 30 Mar, 2012 [facility] [address] [id number] [place] [address] Mar, 2012 [facility] [address] [id number] [place] [address] Mar, 2012 [facility] [address] [facility] [id number] [place] [address] Mar, [facility] [address] [id number] [place] [address] Mar, [facility] [address] [id number] [place] [address] Mar, [facility] [address] [id number] [place] [address] Mar, [facility] [address] [id number] [place] [address] Mar, [facility] [address] [id number] [place] [address] 24 Mar, 2013 [facility] [address] [id number] [place] [address] Mar, [facility] [address] [id number] [place] [address] Mar, [facility] [address] [facility] [id number] [place] [address] Mar, [facility] [address] [id number] [place] [address] Mar, 2012 [facility] [address] [id number] [place] [address] Mar, [facility] [address] [facility] [id number] [place] [address] Mar2012 [facility] [address] [id number] [place] [address] 18 Mar, 2013 [facility] [address] [id number] [place] [address] 18 Mar, 2013 [facility] [address] [id number] [place] [address] 14 Mar, 2013 [facility] [address] [id number] [place] [address] 14 Mar, 2013 [facility] [address] [id number] [place] [address] 10 Mar, 2013 [facility] [address] [id number] [place] [address] 18 Mar, 2013 [facility] [address] [id number] [place] [address] 12 Mar, 2013 [facility] [address] [id number] [place] [address] Mar, [facility] [address] [id number] [place] [address] Jan, [facility] [address] [id number] [place] [address] October, [facility] [address] [id number] [place] [address] 22 Sep, 2012 [facility] [address] [id number] [place] [address] 15 Sep, 2012 [facility] [address] [id number] [place] [address] 07 Aug, 2012 [facility] [address] [id number] [place] [address] 06 Aug, 2012 [facility] [address] [id number] [place] [address] 04 Aug, 2012 [facility] [address] [id number] [place] [address] Jul, [facility] [address] [id number] [place] [address] May, [facility] [address] [id number] [place] [address] May, [facility] [address] [id number] [place] [address] May, [facility] [address] [id number] [place] [address] May, [facility] [address] [id number] [place] [address] Mar, [facility] [address] [id number] [place] [address] Mar, [facility] [address] [id number] [place] [address] 16 Mar, 2012 [facility] [address] [id number] [place] [address] 25 Mar, 2012 [facility] [address] [id number] [place] [address] Mar, [facility] [address] [id number] [place] [address] 13 Mar, 2012 [facility] [address] [id number] [place] [address] 07 Mar, 2012 [facility] [address] [id number] [place] [address] 30 Jan, 2012 [facility] [address] [id number] [place] [address] Jan, [facility] [address] [id number] [place] [address] Jan, [facility] [address] [id number] [place] [address] Jan, [facility] [address] [id number] [place] [address] Jan, [facility] [address] [id number] [place] [address] Jan, [facility] [address] [id number] [place] [address] Jan, [facility] [id number] [place] [address] Jan, [facility] [address] [id number] [place] [address] Jan, [facility] [address] [id number] [place] [address] Jan, [facility] [address] [id number] [place] [address] Jan, [facility] [address] [id number] [place] [address] Jan, [facility] [address] [id number] [place] [address] Jan, [facility] [address] [id number] [place] [address] Jan, [facility] [address] [id number] [place] [address] Jan, [facility] [address] [id number] [place] [address] Jan, [facility] [address] [id number] [place] [address] Dec, [facility] [address] [id number] [place] [address] Dec, [facility] [address] [id number] [place] [address] Nov, [facility] [address] [id number] [place] [address] Nov, [facility] [address] [id number] [place] [address] October, [facility] [address] [id number] [place] [address] October, [facility] [address] [id number] [place] [address] October, [facility] [address] [id number] [place] [address] 19 Sep, 2011 [facility] [address] [id number] [place] [address] 18 Sep, 2011 [facility] [address] [id number] [place] [address] 30 Aug, 2011 [facility] [address] [id number] [place] [address] 28 Aug, 2011 [facility] [address] [id number] [place] [address] Aug, [facility] [address] [id number] [place] [address] Aug, [facility] [address] [id number] [place] [address] Aug, [facility] [address] [id number] [place] [address] 14 Aug, 2011 [facility] [address] [id number] [place] [address] Aug, [facility] [address] [id number] [place] [address] Jul, [facility] [address] [id number] [place] [address] Jul, [facility] [address] [id number] [place] [address] Jul, [facility] [address] [id number] [place] [address] May, [facility] [address] [id number] [place] [address] May, [facility] [address] [id number] [place] [address] May, [facility] [address] [id number] [place] [address] May, [facility] [address] [id number] [place] [address] 13 May, 2011 [facility] [address] [id number] [place] [address] May, [facility] [address] [id number] [place] [address] May, [facility] [address] [id number] [place] [address] Mar, [facility] [address] [id number] [place] [address] Mar, [facility] [address] [id number] [place] [address] Mar, [facility] [address] [id number] [place] [address] 15 Mar, 2011 [facility] [address] [id number] [place] [address] Mar, [facility] [address] [id number] [place] [address] Mar, [facility] [address] [id number] [place] [address] Jan, [facility] [address] [id number] [place] [address] 31 May, 2009 [facility] [address] [id number] [place] [address] 16 May, 2009 [facility] [address] [id number] [place] [address] 07 May, 2009 [facility] [address] [id number] [place] [address] May, [facility] [address] [id number] [place] [address] 10 May, 2009 [facility] [address] [id number] [place] [address] 10 May, 2009 [facility] [address] [id number] [place] [address] 26 Mar, 2009 [facility] [address] [id number] [place] [address] Sep, IMMUNIZATIONS No Known Immunizations SOCIAL HISTORY [...]
--- OUTSIDE RECORDS SUMMARY | 2019-12-30 23:47 | XMS REPORT ---
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 [address] [id number] [place] [address] May, [facility] [place] [facility] [address] [id number] [place] [address] May, [facility] [place] [facility] [address] [facility] [id number] [place] [address] May, [facility] [place] [facility] [address] [id number] [place] [address] May, [facility] [place] [facility] [address] [id number] [place] [address] May, [facility] [place] [facility] [address] [id number] [place] [address] May, [facility] [place] [facility] [address] [id number] [place] [address] May, [facility] [place] [facility] [address] [id number] [place] [address] May, [facility] [place] [facility] [address] [id number] [place] [address] May, [facility] [place] [facility] [address] [id number] [place] [address] May, [facility] [place] [facility] [address] [id number] [place] [address] May, [facility] [place] [facility] [address] [id number] [place] [address] May, [facility] [place] [facility] [address] [id number] [place] [address] May, [facility] [place] [facility] [address] [id number] [place] [address] May, [facility] [place] [facility] [address] [id number] [place] [address] 08 May, 2014 [facility] [place] [facility] [address] [id number] [place] [address] May, [facility] [place] [facility] [address] [id number] [place] [address] May, [facility] [place] [facility] [address] [id number] [place] [address] May, [facility] [place] [facility] [address] [id number] [place] [address] May, [facility] [place] [facility] [address] [id number] [place] [address] May, [facility] [place] [facility] [address] [id number] [place] [address] May, [facility] [place] [facility] [address] [id number] [place] [address] May, [facility] [place] [facility] [address] [id number] [place] [address] May, [facility] [place] [facility] [address] [id number] [place] [address] May, [facility] [place] [facility] [address] [id number] [place] [address] May, [facility] [place] [facility] [address] [id number] [place] [address] May, [facility] [place] [facility] [address] [id number] [place] [address] May, [facility] [place] [facility] [address] [id number] [place] [address] May, [facility] [place] [facility] [address] [id number] [place] [address] May, [facility] [place] [facility] [address] [id number] [place] [address] May, [facility] [place] [facility] [address] [id number] [place] [address] May, [facility] [place] [facility] [address] [id number] [place] [address] May, [facility] [place] [facility] [address] [facility] [id number] [place] [address] May, [facility] [place] [facility] [address] [id number] [place] [address] Mar, [facility] [place] [facility] [address] [id number] [place] [address] Mar, [facility] [place] [facility] [address] [id number] [place] [address] Mar, [facility] [place] [facility] [address] [id number] [place] [address] Mar, [facility] [place] [facility] [address] [id number] [place] [address] Mar, [facility] [place] [facility] [address] [id number] [place] [address] Mar, [facility] [place] [facility] [address] [id number] [place] [address] Mar, [facility] [place] [facility] [address] [id number] [place] [address] Mar, [facility] [place] [facility] [address] [id number] [place] [address] 24 Mar, 2014 [facility] [place] [facility] [address] [id number] [place] [address] 24 Mar, 2014 [facility] [place] [facility] [address] [id number] [place] [address] 08 Mar, 2013 [facility] [place] [facility] [address] [id number] [place] [address] 08 Mar, 2013 [facility] [place] [facility] [address] [id number] [place] [address] Mar, 2013 [facility] [place] [facility] [address] [id number] [place] [address] Mar, 2013 [facility] [place] [facility] [address] [id number] [place] [address] Jan, [facility] [place] [facility] [address] [id number] [facility] [place] [address] Jan, [facility] [place] [facility] [address] [id number] [facility] [place] [address] Jan, [facility] [place] [facility] [address] [facility] [id number] [facility] [place] [address] Jan, [facility] [place] [facility] [address] [facility] [id number] [facility] [place] [address] Jan, [facility] [place] [facility] [address] [facility] [id number] [place] [address] Jan, [facility] [place] [facility] [address] [id number] [facility] [place] [address] Jan, [facility] [place] [facility] [address] [facility] [id number] [place] [address] Jan, [facility] [place] [facility] [address] [id number] [place] [address] Jan, [facility] [place] [facility] [address] [facility] [id number] [facility] [place] [address] Dec, [facility] [place] [facility] [address] [facility] [id number] [place] [address] Dec, [facility] [place] [facility] [address] [facility] [id number] [place] [address] Dec, [facility] [place] [facility] [address] [facility] [id number] [place] [address] Dec, [facility] [place] [facility] [address] [facility] [id number] [place] [address] Dec, [facility] [place] [facility] [address] [id number] [place] [address] Dec, [facility] [place] [facility] [address] [facility] [id number] [place] [address] Dec, [facility] [place] [facility] [address] [facility] [id number] [place] [address] Dec, [facility] [place] [facility] [address] [facility] [id number] [facility] [place] [address] Dec, [facility] [place] [facility] [address] [id number] [place] [address] October, [facility] [place] [facility] [address] [id number] [facility] [place] [address] October, [facility] [place] [facility] [address] [id number] [place] [address] Sep, [facility] [place] [facility] [address] [id number] [place] [address] Sep, [facility] [place] [facility] [address] [id number] [place] [address] Aug, [facility] [place] [facility] [address] [id number] [place] [address] Aug, [facility] [place] [facility] [address] [id number] [place] [address] Aug, [facility] [place] [facility] [address] [id number] [place] [address] Aug, [facility] [place] [facility] [address] [id number] [place] [address] Aug, [facility] [place] [facility] [address] [id number] [place] [address] Aug, [facility] [place] [facility] [address] [id number] [place] [address] 14 Aug, 2013 [facility] [place] [facility] [address] [id number] [place] [address] Aug, [facility] [place] [facility] [address] [id number] [place] [address] Aug, [facility] [place] [facility] [address] [id number] [place] [address] Aug, [facility] [place] [facility] [address] [id number] [place] [address] Aug, [facility] [place] [facility] [address] [id number] [place] [address] Jul, [facility] [place] [facility] [address] [id number] [place] [address] Jul, [facility] [address] [id number] [place] [address] May, [facility] [address] [id number] [place] [address] May, [facility] [address] [id number] [place] [address] May, [facility] [address] [id number] [place] [address] May, [facility] [address] [id number] [place] [address] May, [facility] [address] [id number] [place] [address] May, [facility] [address] [id number] [place] [address] May, [facility] [address] [id number] [place] [address] May, [facility] [address] [id number] [place] [address] May, [facility] [address] [id number] [place] [address] May, [facility] [address] [id number] [place] [address] May, [facility] [address] [id number] [place] [address] May, [facility] [address] [id number] [place] [address] May, [facility] [id number] [place] [address] May, [facility] [address] [id number] [place] [address] May, [facility] [address] [id number] [place] [address] May, [facility] [address] [id number] [place] [address] May, [facility] [address] [id number] [place] [address] May, [facility] [address] [id number] [place] [address] May, [facility] [address] [id number] [place] [address] May, [facility] [address] [id number] [place] [address] May, [facility] [address] [id number] [place] [address] May, [facility] [address] [id number] [place] [address] May, [facility] [address] [id number] [place] [address] May, [facility] [address] [id number] [place] [address] May, [facility] [address] [id number] [place] [address] May, [facility] [address] [id number] [place] [address] May, [facility] [address] [id number] [place] [address] May, [facility] [address] [id number] [place] [address] May, [facility] [address] [id number] [place] [address] May, [facility] [address] [id number] [place] [address] Mar, [facility] [address] [id number] [place] [address] Mar, [facility] [address] [id number] [place] [address] 31 Mar, 2012 [facility] [address] [facility] [id number] [place] [address] 31 Mar, 2012 [facility] [address] [facility] [id number] [place] [address] 30 Mar, 2012 [facility] [address] [id number] [place] [address] Mar, 2012 [facility] [address] [id number] [place] [address] Mar, 2012 [facility] [address] [facility] [id number] [place] [address] Mar, [facility] [address] [id number] [place] [address] Mar, [facility] [address] [id number] [place] [address] Mar, [facility] [address] [id number] [place] [address] Mar, [facility] [address] [id number] [place] [address] Mar, [facility] [address] [id number] [place] [address] 24 Mar, 2013 [facility] [address] [id number] [place] [address] Mar, [facility] [address] [id number] [place] [address] Mar, [facility] [address] [facility] [id number] [place] [address] Mar, [facility] [address] [id number] [place] [address] Mar, 2012 [facility] [address] [id number] [place] [address] Mar, [facility] [address] [id number] [place] [address] Mar2012 [facility] [address] [id number] [place] [address] 18 Mar, 2013 [facility] [address] [id number] [place] [address] 18 Mar, 2013 [facility] [address] [id number] [place] [address] 14 Mar, 2013 [facility] [address] [id number] [place] [address] 14 Mar, 2013 [facility] [address] [id number] [place] [address] 10 Mar, 2013 [facility] [address] [id number] [place] [address] 18 Mar, 2013 [facility] [address] [id number] [place] [address] 12 Mar, 2013 [facility] [address] [id number] [place] [address] Mar, [facility] [address] [id number] [place] [address] Jan, [facility] [address] [id number] [place] [address] October, [facility] [address] [id number] [place] [address] 22 Sep, 2012 [facility] [address] [id number] [place] [address] 15 Sep, 2012 [facility] [address] [id number] [place] [address] 07 Aug, 2012 [facility] [address] [id number] [place] [address] 06 Aug, 2012 [facility] [address] [id number] [place] [address] 04 Aug, 2012 [facility] [address] [id number] [place] [address] Jul, [facility] [address] [id number] [place] [address] May, [facility] [address] [id number] [place] [address] May, [facility] [address] [id number] [place] [address] May, [facility] [address] [id number] [place] [address] May, [facility] [address] [id number] [place] [address] Mar, [facility] [address] [id number] [place] [address] Mar, [facility] [address] [id number] [place] [address] 16 Mar, 2012 [facility] [address] [id number] [place] [address] 25 Mar, 2012 [facility] [address] [id number] [place] [address] Mar, [facility] [address] [id number] [place] [address] 13 Mar, 2012 [facility] [address] [id number] [place] [address] 07 Mar, 2012 [facility] [address] [id number] [place] [address] 30 Jan, 2012 [facility] [address] [id number] [place] [address] Jan, [facility] [address] [id number] [place] [address] Jan, [facility] [address] [id number] [place] [address] Jan, [facility] [address] [id number] [place] [address] Jan, [facility] [address] [id number] [place] [address] Jan, [facility] [address] [id number] [place] [address] Jan, [facility] [id number] [place] [address] Jan, [facility] [address] [id number] [place] [address] Jan, [facility] [address] [id number] [place] [address] Jan, [facility] [address] [id number] [place] [address] Jan, [facility] [address] [id number] [place] [address] Jan, [facility] [address] [id number] [place] [address] Jan, [facility] [address] [id number] [place] [address] Jan, [facility] [address] [id number] [place] [address] Jan, [facility] [address] [id number] [place] [address] Jan, [facility] [address] [id number] [place] [address] Dec, [facility] [address] [id number] [place] [address] Dec, [facility] [address] [id number] [place] [address] Nov, [facility] [address] [id number] [place] [address] Nov, [facility] [address] [id number] [place] [address] October, [facility] [address] [id number] [place] [address] October, [facility] [address] [id number] [place] [address] October, [facility] [address] [id number] [place] [address] 19 Sep, 2011 [facility] [address] [id number] [place] [address] 18 Sep, 2011 [facility] [address] [id number] [place] [address] 30 Aug, 2011 [facility] [address] [id number] [place] [address] 28 Aug, 2011 [facility] [address] [id number] [place] [address] Aug, [facility] [address] [id number] [place] [address] Aug, [facility] [address] [id number] [place] [address] Aug, [facility] [address] [id number] [place] [address] 14 Aug, 2011 [facility] [address] [id number] [place] [address] Aug, [facility] [address] [id number] [place] [address] Jul, [facility] [address] [id number] [place] [address] Jul, [facility] [address] [id number] [place] [address] Jul, [facility] [address] [id number] [place] [address] May, [facility] [address] [id number] [place] [address] May, [facility] [address] [id number] [place] [address] May, [facility] [address] [id number] [place] [address] May, [facility] [address] [id number] [place] [address] 13 May, 2011 [facility] [address] [id number] [place] [address] May, [facility] [address] [id number] [place] [address] May, [facility] [address] [id number] [place] [address] Mar, [facility] [address] [id number] [place] [address] Mar, [facility] [address] [id number] [place] [address] Mar, [facility] [address] [id number] [place] [address] 15 Mar, 2011 [facility] [address] [id number] [place] [address] Mar, [facility] [address] [id number] [place] [address] Mar, [facility] [address] [id number] [place] [address] Jan, [facility] [address] [id number] [place] [address] 31 May, 2009 [facility] [address] [id number] [place] [address] 16 May, 2009 [facility] [address] [id number] [place] [address] 07 May, 2009 [facility] [address] [id number] [place] [address] May, [facility] [address] [id number] [place] [address] 10 May, 2009 [facility] [address] [id number] [place] [address] 10 May, 2009 [facility] [address] [id number] [place] [address] 26 Mar, 2009 [facility] [address] [id number] [place] [address] Sep, IMMUNIZATIONS No Known Immunizations SOCIAL HISTORY [...]
--- OUTSIDE RECORDS SUMMARY | 2019-12-30 23:48 | XMS REPORT ---
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 [address] May, [facility] [address] [id number] [place] [address] May, [facility] [address] [id number] [place] [address] May, [facility] [address] [id number] [place] [address] May, [facility] [address] [id number] [place] [address] May, [facility] [address] [id number] [place] [address] May, [facility] [address] [id number] [place] [address] May, [facility] [address] [id number] [place] [address] May, [facility] [address] [id number] [place] [address] May, [facility] [address] [id number] [place] [address] May, [facility] [address] [id number] [place] [address] May, [facility] [address] [id number] [place] [address] May, [facility] [address] [id number] [place] [address] May, [facility] [address] [id number] [place] [address] May, [facility] [address] [id number] [place] [address] May, [facility] [address] [id number] [place] [address] May, [facility] [address] [id number] [place] [address] May, [facility] [address] [id number] [place] [address] May, [facility] [address] [id number] [place] [address] May, [facility] [address] [id number] [place] [address] May, [facility] [address] [id number] [place] [address] May, [facility] [address] [id number] [place] [address] 08 May, 2014 [facility] [address] [id number] [place] [address] May, [facility] [address] [id number] [place] [address] May, [facility] [address] [id number] [place] [address] May, [facility] [address] [id number] [place] [address] May, [facility] [address] [id number] [place] [address] Mar, [facility] [address] [id number] [place] [address] Mar, [facility] [address] [id number] [place] [address] Mar, [facility] [address] [id number] [place] [address] Mar, [facility] [address] [id number] [place] [address] Mar, [facility] [address] [id number] [place] [address] Mar, [facility] [address] [id number] [place] [address] Mar, [facility] [address] [id number] [place] [address] Mar, [facility] [address] [id number] [place] [address] 24 Mar, 2014 [facility] [address] [id number] [place] [address] 24 Mar, 2013 [facility] [address] [id number] [place] [address] 08 Sep, 2013 [facility] [address] [id number] [place] [address] 08 Sep, 2013 [facility] [address] [id number] [place] [address] 03 Sep, 2013 [facility] [address] [id number] [place] [address] Mar, [facility] [address] [id number] [place] [address] Jan, [facility] [address] [facility] [place] [facility] [place] [id number] [facility] [place] [address] Jan, [facility] [address] [facility] [place] [place] [id number] [facility] [place] [address] Jan, [facility] [address] [facility] [place] [facility] [place] [id number] [facility] [place] [address] Jan, [facility] [address] [facility] [place] [facility] [place] [id number] [facility] [place] [address] Jan, [facility] [address] [facility] [place] [facility] [place] [id number] [place] [address] Jan, [facility] [address] [facility] [place] [place] [id number] [place] [address] Jan, [facility] [address] [id number] [place] [address] Jan, [facility] [address] [facility] [place] [facility] [place] [id number] [place] [address] Jan, [facility] [address] [id number] [place] [address] Dec, [facility] [address] [id number] [place] [address] Dec, [facility] [address] [id number] [place] [address] Dec, [facility] [address] [facility] [place] [facility] [place] [id number] [place] [address] Dec, [facility] [address] [facility] [place] [facility] [place] [id number] [place] [address] Dec, [facility] [address] [facility] [place] [facility] [place] [id number] [place] [address] Dec, [facility] [address] [id number] [place] [address] Dec, [facility] [address] [id number] [place] [address] Dec, [facility] [address] [id number] [place] [address] Dec, [facility] [address] [id number] [facility] [place] [address] October, [facility] [address] [id number] [place] [address] October, [facility] [address] [id number] [place] [address] Sep, [facility] [address] [id number] [place] [address] Sep, [facility] [address] [id number] [place] [address] Aug, [facility] [address] [id number] [place] [address] Aug, [facility] [address] [id number] [place] [address] Aug, [facility] [address] [id number] [place] [address] Aug, [facility] [address] [id number] [place] [address] Aug, [facility] [address] [id number] [place] [address] Aug, [facility] [address] [id number] [place] [address] 14 Aug, 2013 [facility] [address] [id number] [place] [address] Aug, [facility] [address] [id number] [place] [address] Aug, [facility] [address] [id number] [place] [address] Aug, [facility] [address] [id number] [place] [address] Aug, [facility] [address] [id number] [place] [address] Jul, [facility] [address] [id number] [place] [address] Jul, [facility] [address] [id number] [place] [address] May, [facility] [address] [id number] [place] [address] May, [facility] [address] [id number] [place] [address] May, [facility] [address] [id number] [place] [address] May, [facility] [address] [id number] [place] [address] May, [facility] [address] [id number] [place] [address] May, [facility] [address] [id number] [place] [address] May, [facility] [address] [id number] [place] [address] May, [facility] [address] [id number] [place] [address] May, [facility] [address] [id number] [place] [address] May, [facility] [address] [id number] [place] [address] May, [facility] [address] [id number] [place] [address] May, [facility] [id number] [place] [address] May, [facility] [address] [id number] [place] [address] May, [facility] [address] [id number] [place] [address] May, [facility] [address] [id number] [place] [address] May, [facility] [address] [id number] [place] [address] May, [facility] [address] [id number] [place] [address] May, [facility] [address] [id number] [place] [address] May, [facility] [address] [id number] [place] [address] May, [facility] [address] [id number] [place] [address] May, [facility] [address] [id number] [place] [address] May, [facility] [address] [id number] [place] [address] May, [facility] [address] [id number] [place] [address] May, [facility] [address] [id number] [place] [address] May, [facility] [address] [id number] [place] [address] May, [facility] [address] [id number] [place] [address] May, [facility] [address] [id number] [place] [address] May, [facility] [address] [id number] [place] [address] May, [facility] [address] [id number] [place] [address] May, [facility] [address] [id number] [place] [address] Mar, [facility] [address] [id number] [place] [address] 31 Mar, 2012 [facility] [address] [facility] [id number] [address] 31 Mar, 2012 [facility] [address] [facility] [id number] [address] 31 Mar, 2012 [facility] [address] [id number] [place] [address] 30 Mar, 2012 [facility] [address] [id number] [place] [address] 29 Mar, 2012 [facility] [address] [facility] [place] [id number] [place] [address] 29 Mar, 2012 [facility] [address] [id number] [place] [address] 29 Mar, 2013 [facility] [address] [id number] [place] [address] 29 Mar, 2013 [facility] [address] [id number] [place] [address] Mar, 2012 [facility] [address] [id number] [place] [address] 28 Mar, 2013 [facility] [address] [id number] [place] [address] 24 Mar, 2013 [facility] [address] [id number] [place] [address] 24 Mar, 2013 [facility] [address] [id number] [place] [address] 23 Mar, 2013 [facility] [address] [facility] [id number] [address] 22 Mar, 2012 [facility] [address] [id number] [place] [address] Mar, 2012 [facility] [address] [id number] [place] [address] Mar, 2012 [facility] [address] [id number] [place] [address] 18 Mar2012 [facility] [address] [id number] [place] [address] 18 Mar, 2013 [facility] [address] [id number] [place] [address] 18 Mar, 2013 [facility] [address] [id number] [place] [address] 18 Mar, 2013 [facility] [address] [id number] [place] [address] 14 Mar, 2013 [facility] [address] [id number] [place] [address] 14 Mar, 2013 [facility] [address] [id number] [place] [address] 10 Mar, 2013 [facility] [address] [id number] [place] [address] 18 Mar, 2013 [facility] [id number] [place] [address] 12 Mar, 2013 [facility] [address] [id number] [place] [address] Mar, [facility] [address] [id number] [place] [address] Jan, [facility] [address] [id number] [place] [address] October, [facility] [address] [id number] [place] [address] Sep, [facility] [address] [id number] [place] [address] 15 Sep, 2012 [facility] [address] [id number] [place] [address] Aug, [facility] [address] [id number] [place] [address] 06 Aug, 2012 [facility] [address] [id number] [place] [address] 04 Aug, 2012 [facility] [address] [id number] [place] [address] Jul, [facility] [address] [id number] [place] [address] May, [facility] [address] [id number] [place] [address] May, [facility] [address] [id number] [place] [address] May, [facility] [address] [id number] [place] [address] May, [facility] [address] [id number] [place] [address] Mar, [facility] [address] [id number] [place] [address] Mar, [facility] [address] [id number] [place] [address] 16 Mar, 2012 [facility] [address] [id number] [place] [address] 25 Mar, 2012 [facility] [address] [id number] [place] [address] 19 Mar, 2012 [facility] [address] [id number] [place] [address] 13 Mar, 2012 [facility] [address] [id number] [place] [address] 07 Mar, 2012 [facility] [address] [id number] [place] [address] 30 Jan, 2012 [facility] [address] [id number] [place] [address] Jan, [facility] [address] [id number] [place] [address] Jan, [facility] [address] [id number] [place] [address] 14 Jan, 2012 [facility] [address] [id number] [place] [address] 09 Jan, 2012 [facility] [address] [id number] [place] [address] Jan, [facility] [address] [id number] [place] [address] Jan, [facility] [address] [id number] [place] [address] Jan, [facility] [address] [id number] [place] [address] Jan, [facility] [address] [id number] [place] [address] Jan, [facility] [address] [id number] [place] [address] Jan, [facility] [address] [id number] [place] [address] Jan, [facility] [address] [id number] [place] [address] Jan, [facility] [address] [id number] [place] [address] Jan, [facility] [address] [id number] [place] [address] Jan, [facility] [address] [id number] [place] [address] Jan, [facility] [address] [id number] [place] [address] Dec, [facility] [address] [id number] [place] [address] Dec, [facility] [address] [id number] [place] [address] Nov, [facility] [address] [id number] [place] [address] Nov, [facility] [address] [id number] [place] [address] October, [facility] [address] [id number] [place] [address] October, [facility] [address] [id number] [place] [address] October, [facility] [address] [id number] [place] [address] Sep, [facility] [address] [id number] [place] [address] Sep, [facility] [address] [id number] [place] [address] Aug, [facility] [address] [id number] [place] [address] Aug, [facility] [address] [id number] [place] [address] Aug, [facility] [address] [id number] [place] [address] Aug, [facility] [address] [id number] [place] [address] Aug, [facility] [address] [id number] [place] [address] Aug, [facility] [address] [id number] [place] [address] Aug, [facility] [address] [id number] [place] [address] Jul, [facility] [address] [id number] [place] [address] Jul, [facility] [address] [id number] [place] [address] Jul, [facility] [address] [id number] [place] [address] May, [facility] [address] [id number] [place] [address] May, [facility] [address] [id number] [place] [address] May, [facility] [address] [id number] [place] [address] May, [facility] [address] [id number] [place] [address] May, [facility] [address] [id number] [place] [address] May, [facility] [address] [id number] [place] [address] May, [facility] [address] [id number] [place] [address] Mar, [facility] [address] [id number] [place] [address] Mar, [facility] [address] [id number] [place] [address] Mar, [facility] [address] [id number] [place] [address] Mar, [facility] [address] [id number] [place] [address] Mar, [facility] [address] [id number] [place] [address] Mar, [facility] [address] [id number] [place] [address] Jan, [facility] [address] [id number] [place] [address] May, [facility] [address] [id number] [place] [address] 16 May, 2009 [facility] [address] [id number] [place] [address] May, [facility] [address] [id number] [place] [address] May, [facility] [address] [id number] [place] [address] May, [facility] [address] [id number] [place] [address] May, [facility] [address] [id number] [place] [address] Mar, [facility] [address] [facility] [place] [id number] [place] [address] Sep, IMMUNIZATIONS No Known Immunizations SOCIAL HISTORY [...]
[2019-12-31 00:07] LABS: ALANINE AMINOTRANSFERASE 13 U/L (0-55); ALBUMIN 4.1 GM/DL (3.2-4.5); ALKALINE PHOSPHATASE 49 U/L (40-136); BILIRUBIN,TOTAL 0.3 MG/DL (0.1-1.0); BUN/CREATININE RATIO 18; CALCIUM 8.9 MG/DL (8.5-10.1); CARBON DIOXIDE 17 MMOL/L (21-32); CHLORIDE 108 MMOL/L (98-107); CREATININE SERUM 0.74 MG/DL (0.60-1.30); GFR ESTIMATED > 60; GLUCOSE 88 MG/DL (70-105); POTASSIUM 3.8 MMOL/L (3.6-5.0); SODIUM 138 MMOL/L (135-145); TOTAL PROTEIN 7.3 GM/DL (6.4-8.2)
--- OUTSIDE RECORDS SUMMARY | 2019-12-31 00:08 | XMS REPORT ---
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 and Carpal tunnel syndrome, right upper limb G56.01 [facility] [address] [id number] [address] [place] [address] Dec, [facility] [address] [id number] [address] [place] [address] Dec, [facility] [address] [id number] [address] [place] [address] Dec, [facility] [address] [id number] [address] [place] [address] Dec, [facility] [address] [facility] [id number] [address] [place] [address] Dec, Lumbago with sciatica, left side M54.42 [facility] [address] [id number] [address] [place] [address] Dec, Anxiety F41.9 [facility] [address] [id number] [address] [place] [phone] Dec, Tremor R25.1 ; Back pain wit h right-sided radiculopathy M54.[address] [facility] [address] [id number] [address] [place] [id number] Dec, [facility] [address] [facility] [id number] [address] [place] [phone] Dec, [facility] [address] [id number] [address] [place] [address] Dec, Lumbago with sciatica, left side M54.42 [facility] [address] [facility] [id number] [address] [place] [address] Dec, Dizziness R42 [facility] [address] [facility] [id number] [address] [place] [address] Nov, [facility] [address] [facility] [id number] [address] [place] [address] Nov, Lumbago with sciatica, left side M54.42 and Lumbago with sciatica, right side M54.41 [facility] [address] [facility] [id number] [address] [place] [address] Nov, Anxiety F41.9 [facility] [address] [facility] [id number] [address] [place] [phone] Nov, [facility] [address] [facility] [id number] [address] [place] [address] Nov, Headache R51 [facility] [address] [facility] [id number] [address] [place] [phone] October, Encounter for Depo-Provera c ontraception Z30.42 [facility] [address] [facility] [id number] [address] [place] [address] October, Anxiety F41.9 [facility] [address] [facility] [id number] [address] [place] [address] October, Anxiety F41.9 [facility] [address] [facility] [id number] [address] [place] [phone] October, [facility] [address] [facility] [id number] [address] [place] [address] October, Vaginal yeast infection B37. 3 [facility] [address] [id number] [address] [place] [address] October, [facility] [address] [id number] [address] [place] [address] October, Headache R51 [facility] [address] [id number] [address] [place] [phone] Sep, [facility] [address] [facility] [id number] [address] [place] [address] Sep, [facility] [address] [id number] [address] [place] [address] Sep, Headache R51 [facility] [address] [facility] [id number] [address] [place] [address] Sep, [facility] [address] [facility] [id number] [address] [place] [address] Sep, Headache R51 [facility] [address] [facility] [id number] [address] [place] [address] Aug, 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 [facility] [address] [id number] [address] [place] [phone] 24 Aug, 2015 [facility] [address] [facility] [id number] [address] [place] [address] Aug, Headache R51 ; Forgetfulness R68.[address] scan, head R93.0 [facility] [address] [id number] [address] [place] [address] 16 Aug, 2015 [facility] [address] [facility] [id number] [address] [place] [phone] 15 Aug, 2015 [facility] [address] [facility] [id number] [address] [place] [phone] 14 Aug, 2015 [facility] [address] [facility] [id number] [address] [place] [address] Aug, Headache R51 [facility] [address] [address] 08 Aug, 2015 Abnormal computed tomography angiography of head R93.0 [place] [address] [address] 07 Aug, [address] of the head R93. 0 [place] [address] [address] Aug, Headache R51 ; Nausea R11.0 and Forgetfulness R68.89 [place] [address] [address] Aug, Mental disor NOS oth dis F99 ; Unspecified mood [affective] disorder F39 and Anxiety disorder, unspecified F41.9 [place] [address] [address] Aug, [place] [address] [address] Aug, [place] [address] [address] Aug, Encounter for Depo-Provera c ontraception Z30.42 [place] [address] [address] Jul, [place] [address] [address] Jul, Contusion of unspecified fin laura without damage to nail, subsequent encounter S60.00XD [place] [address] [place] [id number] [address] [place] [address] May, [place] [address] [address] May, [facility] [address] [place] [id number] [address] [place] [id number] May, Dental examination Z01.20 [place] [address] [address] May, Hematuria R31.9 [facility] [address] [id number] [address] [place] [address] May, [facility] [address] [facility] [id number] [address] [place] [address] May, Generalized anxiety disorder F41.1 [facility] [address] [facility] [id number] [address] [place] [address] May, [facility] [address] [facility] [id number] [address] [place] [address] May, [facility] [address] [facility] [id number] [address] [place] [address] May, [facility] [address] [facility] [id number] [address] [place] [address] Mar, Upper respiratory tract infe ction, unspecified upper respiratory infection J06.9 ; Anaphylaxis, subsequent encounter T78.2XXD ; Encounter for Depo-Provera contraception Z30.42 and Encounter for surveillance of injectable contraceptive Z30.42 [facility] [address] [facility] [id number] [address] [place] [address] Mar, [facility] [address] [facility] [id number] [address] [place] [address] Mar, [facility] [address] [facility] [id number] [address] [place] [address] Mar, [facility] [address] [facility] [id number] [address] [place] [address] Mar, [facility] [address] [id number] [address] [place] [id number] Mar, [facility] [address] [facility] [id number] [address] [place] [phone] Jan, [facility] [address] [facility] [id number] [address] [place] [address] Jan, [facility] [address] [id number] [address] [place] [id number] Jan, [facility] [address] [id number] [address] [place] [phone] Dec, [facility] [address] [id number] [address] [place] [id number] Dec, Dental examination V72.2 [facility] [address] [id number] [address] [place] [phone] Dec, [facility] [address] [id number] [address] [place] [phone] Nov, [facility] [address] [id number] [address] [place] [address] Nov, [facility] [address] [id number] [address] [place] [address] Nov, Abdominal pain 789.00 and Na usea and vomiting 787.01 [facility] [address] [id number] [address] [place] [address] Nov, UTI (lower urinary tract inf ection) 599.0 and Abdominal pain 789.00 [facility] [address] [id number] [address] [place] [id number] October, [facility] [address] [id number] [address] [place] [address] Sep, [facility] [address] [id number] [address] [place] [address] Sep, [facility] [address] [id number] [address] [place] [id number] Aug, [facility] [address] [id number] [address] [place] [address] Aug, [facility] [address] [id number] [address] [place] [address] Aug, [facility] [address] [id number] [address] [place] [id number] Aug, [facility] [address] [id number] [address] [place] [address], [place] [address] Aug, [facility] [address] [id number] [address] [place] [address], [place] [address] Aug, [facility] [address] [id number] [address] [place] [address], [place] [address] Aug, [facility] [address] [id number] [address] [place] [address], [place] [address] Aug, [facility] [address] [id number] [address] [place] [address], [place] [address] Jul, [facility] [address] [id number] [address] [place] [address], [place] [address] Jul, [facility] [address] [id number] [address] [place] [id number] Jul, [facility] [address] [id number] [address] [place] [address] Jul, [facility] [address] [id number] [address] [place] [id number] Jul, [facility] [address] [id number] [address] [place] [address] Jul, [facility] [address] [id number] [address] [place] [address] Jul, [facility] [address] [id number] [address] [place] [address] Jul, [facility] [address] [id number] [address] [place] [address] Jul, [facility] [address] [id number] [address] [place] [address] Jul, [facility] [address] [id number] [address] [place] [id number] Jul, [facility] [address] [id number] [facility] [place] [address] Jul, [facility] [address] [id number] [address] [place] [address], [place] [address] May, [facility] [address] [id number] [address] [place] [address], [place] [address] May, [facility] [address] [id number] [address] [place] [address], [place] [address] May, [facility] [address] [id number] [address] [place] [address], [place] [address] May, [facility] [address] [id number] [address] [place] [address], [place] [address] May, [facility] [address] [id number] [address] [place] [address], [place] [address] May, [facility] [address] [id number] [address] [place] [address], [place] [address] May, [facility] [address] [id number] [address] [place] [address], [place] [address] May, [facility] [address] [id number] [address] [place] [address], [place] [address] May, [facility] [address] [id number] [address] [place] [address], [place] [address] May, [facility] [address] [id number] [address] [place] [address], [place] [address] May, [facility] [address] [id number] [address] [place] [address], [place] [address] May, [facility] [address] [id number] [address] [place] [address], [place] [address] May, [facility] [address] [id number] [address] [place] [address], [place] [address] May, [facility] [address] [id number] [address] [place] [address] [address] May, [facility] [address] [id number] [address] [place] [address], [place] [address] May, [facility] [address] [id number] [address] [place] [address], [place] [address] May, [facility] [address] [id number] [address] [place] [address], [place] [address] May, [facility] [address] [id number] [address] [place] [address], [place] [address] May, [facility] [address] [id number] [address] [place] [address], [place] [address] May, [facility] [address] [id number] [address] [place] [address], [place] [address] May, [facility] [address] [id number] [address] [place] [address], [place] [address] May, [facility] [address] [id number] [address] [place] [address], [place] [address] May, [facility] [address] [id number] [address] [place] [address], [place] [address] 15 May, 2014 [facility] [address] [id number] [address] [place] [address], [place] [address] May, [facility] [address] [id number] [address] [place] [address], [place] [address] May, [facility] [address] [id number] [address] [place] [address], [place] [address] May, [facility] [address] [id number] [address] [place] [address], [place] [address] May, [facility] [address] [id number] [address] [place] [address], [place] [address] May, [facility] [address] [id number] [address] [place] [address], [place] [address] May, [facility] [address] [id number] [address] [place] [address], [place] [address] 08 May, 2014 [facility] [address] [id number] [address] [place] [address], [place] [address] May, [facility] [address] [id number] [address] [place] [address], [place] [address] May, [facility] [address] [id number] [address] [place] [address], [place] [address] May, [facility] [address] [id number] [address] [place] [address], [place] [address] May, [facility] [address] [id number] [address] [place] [address], [place] [address] Mar, [facility] [address] [id number] [address] [place] [address], [place] [address] Mar, [facility] [address] [id number] [address] [place] [address], [place] [address] Mar, [facility] [address] [id number] [address] [place] [address], [place] [address] Mar, [facility] [address] [id number] [address] [place] [address], [place] [address] Mar, [facility] [address] [id number] [address] [place] [address], [place] [address] Mar, [facility] [address] [id number] [address] [place] [address], [place] [address] Mar, [facility] [address] [id number] [address] [place] [address], [place] [address] Mar, [facility] [address] [id number] [address] [place] [address], [place] [address] 24 Mar, 2014 [facility] [address] [id number] [address] [place] [address], [place] [address] 24 Mar, 2014 [facility] [address] [id number] [address] [place] [address], [place] [address] Mar, [facility] [address] [id number] [address] [place] [address], [place] [address] Mar, [facility] [address] [id number] [address] [place] [address], [place] [address] Mar, [facility] [address] [id number] [address] [place] [address], [place] [address] Mar, [facility] [address] [id number] [address] [place] [address], [place] [address] Jan, [facility] [address] [id number] [address] [place] [address], [place] [address] Jan, [facility] [address] [id number] [address] [place] [address], [place] [address] Jan, [facility] [address] [id number] [address] [place] [address], [place] [address] Jan, [facility] [address] [id number] [address] [place] [address], [place] [address] Jan, [facility] [address] [id number] [address] [place] [address], [place] [address] Jan, [facility] [address] [id number] [address] [place] [address], [place] [address] Jan, [facility] [address] [id number] [address] [place] [address], [place] [address] Jan, [facility] [address] [id number] [address] [place] [address], [place] [address] Jan, [facility] [address] [id number] [address] [place] [address], [place] [address] Dec, [facility] [address] [id number] [address] [place] [address], [place] [address] Dec, [facility] [address] [id number] [address] [place] [address], [place] [address] Dec, [facility] [address] [id number] [address] [place] [address], [place] [address] Dec, [facility] [address] [id number] [facility] [place] [address] Dec, [facility] [address] [id number] [address] [place] [address], [place] [address] Dec, [facility] [address] [id number] [address] [place] [address], [place] [address] Dec, [facility] [address] [id number] [address] [place] [address], [place] [address] Dec, [facility] [address] [id number] [address] [place] [address], [place] [address] Dec, [facility] [address] [id number] [address] [place] [address], [place] [address] October, [facility] [address] [id number] [address] [place] [address], [place] [address] October, [facility] [address] [id number] [address] [place] [address], [place] [address] Sep, [facility] [address] [id number] [address] [place] [address], [place] [address] Sep, [facility] [address] [id number] [address] [place] [address], [place] [address] Aug, [facility] [address] [id number] [address] [place] [address], [place] [address] Aug, [facility] [address] [id number] [address] [place] [address], [place] [address] Aug, [facility] [address] [id number] [address] [place] [address], [place] [address] Aug, [facility] [address] [id number] [address] [place] [address], [place] [address] Aug, [facility] [address] [id number] [address] [place] [address], [place] [address] Aug, [facility] [address] [id number] [address] [place] [address], [place] [address] 14 Aug, 2013 [facility] [address] [id number] [address] [place] [address], [place] [address] 07 Aug, 2013 [facility] [address] [id number] [address] [place] [address], [place] [address] 07 Aug, 2013 [facility] [address] [id number] [address] [place] [address], [place] [address] Aug, [facility] [address] [id number] [address] [place] [address], [place] [address] Aug, [facility] [address] [id number] [address] [place] [address], [place] [address] Jul, [facility] [address] [id number] [address] [place] [address], [place] [address] Jul, [facility] [address] [id number] [address] [place] [address], [place] [address] May, [facility] [address] [id number] [address] [place] [address], [place] [address] May, [facility] [address] [id number] [address] [place] [address], [place] [address] May, [facility] [address] [id number] [address] [place] [address], [place] [address] May, [facility] [address] [id number] [address] [place] [address], [place] [address] May, [facility] [address] [id number] [address] [place] [address], [place] [address] May, [facility] [address] [id number] [address] [place] [address], [place] [address] May, [facility] [address] [id number] [address] [place] [address], [place] [address] May, [facility] [address] [id number] [address] [address] May, [facility] [address] [id number] [address] [place] [address], [place] [address] May, [facility] [address] [id number] [address] [place] [address], [place] [address] May, [facility] [address] [id number] [address] [place] [address] May, [facility] [address] [id number] [address] [place] [address] May, [facility] [address] [id number] [address] [place] [address], [place] [address] May, [facility] [address] [id number] [address] [place] [address] May, [facility] [address] [id number] [address] [place] [address] May, [facility] [address] [id number] [address] [place] [address] 18 May, 2013 [facility] [address] [id number] [address] [place] [address] 18 May, 2013 [facility] [address] [id number] [address] [place] [address] 16 May, 2013 [facility] [address] [id number] [address] [place] [address] 16 May, 2013 [facility] [address] [id number] [address] [place] [address] 11 May, 2013 [facility] [address] [id number] [address] [place] [address] 11 May, 2013 [facility] [address] [id number] [address] [place] [address] 11 May, 2013 [facility] [address] [id number] [address] [place] [address] May, [facility] [address] [id number] [address] [place] [address], [place] [address] 09 May, 2013 [facility] [address] [id number] [address] [place] [address], [place] [address] May, [facility] [address] [id number] [address] [place] [address], [place] [address] May, [facility] [address] [id number] [address] [place] [address], [place] [address] May, [facility] [address] [id number] [address] [place] [address], [place] [address] May, [facility] [address] [id number] [address] [place] [address], [place] [address] May, [facility] [address] [id number] [address] [place] [address], [place] [address] Mar, [facility] [address] [id number] [address] [place] [address], [place] [address] Mar, [facility] [address] [id number] [address] [place] [address], [place] [address] Mar, [facility] [address] [id number] [address] [place] [address], [place] [address] Mar, [facility] [address] [id number] [address] [place] [address], [place] [address] 30 Mar, 2013 [facility] [address] [id number] [address] [place] [address], [place] [address] 29 Mar, 2013 [facility] [address] [id number] [address] [place] [address], [place] [address] 29 Mar, 2013 [facility] [address] [id number] [address] [place] [address], [place] [address] 29 Mar, 2013 [facility] [address] [id number] [address] [place] [address], [place] [address] 29 Mar, 2013 [facility] [address] [id number] [address] [place] [address], [place] [address] 28 Mar, 2013 [facility] [address] [id number] [address] [place] [address], [place] [address] 28 Mar, 2013 [facility] [address] [id number] [address] [place] [address], [place] [address] 24 Mar, 2013 [facility] [address] [id number] [address] [place] [address], [place] [address] 24 Mar, 2013 [facility] [address] [id number] [address] [place] [address], [place] [address] 23 Mar, 2013 [facility] [address] [id number] [address] [place] [address], [place] [address] 22 Mar, 2013 [facility] [address] [id number] [address] [place] [address], [place] [address] Mar, [facility] [address] [id number] [address] [place] [address], [place] [address] Mar, [facility] [address] [id number] [address] [place] [address] 18 Mar, 2013 [facility] [address] [id number] [address] [place] [address], [place] [address] 18 Mar, 2013 [facility] [address] [id number] [address] [place] [address] 18 Mar, 2013 [facility] [address] [id number] [address] [place] [address] 18 Mar, 2013 [facility] [address] [id number] [address] [place] [address] 14 Mar, 2013 [facility] [address] [id number] [address] [place] [address] 14 Mar, 2013 [facility] [address] [id number] [address] [place] [address] 10 Mar, 2013 [facility] [address] [id number] [address] [place] [address] 18 Mar, 2013 [facility] [address] [id number] [address] [place] [address] Mar, [facility] [address] [id number] [address] [place] [address], [place] [address] Mar, [facility] [address] [id number] [address] [place] [address], [place] [address] Jan, [facility] [address] [id number] [address] [place] [address], [place] [address] October, [facility] [address] [id number] [address] [place] [address], [place] [address] Sep, [facility] [address] [id number] [address] [place] [address], [place] [address] Sep, [facility] [address] [id number] [address] [place] [address], [place] [address] Aug, [facility] [address] [id number] [address] [place] [address], [place] [address] Aug, [facility] [address] [id number] [address] [place] [address], [place] [address] Aug, [facility] [address] [id number] [address] [place] [address], [place] [address] Jul, [facility] [address] [id number] [address] [place] [address], [place] [address] May, [facility] [address] [id number] [address] [place] [address], [place] [address] May, [facility] [address] [id number] [address] [place] [address] May, [facility] [address] [id number] [address] [place] [address], [place] [address] May, [facility] [address] [id number] [address] [place] [address], [place] [address] Mar, [facility] [address] [id number] [address] [place] [address] Mar, [facility] [address] [id number] [address] [place] [address], [place] [address] 16 Mar, 2012 [facility] [address] [id number] [address] [place] [address], [place] [address] 25 Mar, 2012 [facility] [address] [id number] [address] [place] [address], [place] [address] 19 Mar, 2012 [facility] [address] [id number] [address] [place] [address], [place] [address] 13 Mar, 2012 [facility] [address] [id number] [address] [place] [address], [place] [address] 07 Mar, 2012 [facility] [address] [id number] [address] [place] [address], [place] [address] 30 Jan, 2012 [facility] [address] [id number] [address] [place] [address], [place] [address] Jan, [facility] [address] [id number] [address] [place] [address], [place] [address] Jan, [facility] [address] [id number] [address] [place] [address], [place] [address] 14 Jan, 2012 [facility] [address] [id number] [address] [place] [address], [place] [address] Jan, [facility] [address] [id number] [address] [place] [address], [place] [address] Jan, [facility] [address] [id number] [address] [place] [address], [place] [address] Jan, [facility] [address] [id number] [address] [place] [address], [place] [address] Jan, [facility] [address] [id number] [address] [place] [address], [place] [address] Jan, [facility] [address] [id number] [address] [place] [address], [place] [address] Jan, [facility] [address] [id number] [address] [place] [address], [place] [address] Jan, [facility] [address] [id number] [address] [place] [address], [place] [address] Jan, [facility] [address] [id number] [address] [place] [address], [place] [address] Jan, [facility] [address] [id number] [address] [place] [address], [place] [address] Jan, [facility] [address] [id number] [address] [place] [address], [place] [address] Jan, [facility] [address] [id number] [address] [place] [address], [place] [address] Jan, [facility] [address] [id number] [address] [place] [address], [place] [address] Dec, [facility] [address] [id number] [address] [place] [address], [place] [address] Dec, [facility] [address] [id number] [address] [place] [address], [place] [address] Nov, [facility] [address] [id number] [address] [place] [address], [place] [address] Nov, [facility] [address] [id number] [address] [place] [address], [place] [address] October, [facility] [address] [id number] [address] [place] [address], [place] [address] October, [facility] [address] [id number] [address] [place] [address], [place] [address] October, [facility] [address] [id number] [address] [place] [address], [place] [address] Sep, [facility] [address] [id number] [address] [place] [address], [place] [address] Sep, [facility] [address] [id number] [address] [place] [address], [place] [address] Aug, [facility] [address] [id number] [address] [place] [address], [place] [address] 28 Aug, 2011 [facility] [address] [id number] [address] [place] [address], [place] [address] 26 Aug, 2011 [facility] [address] [id number] [address] [place] [address], [place] [address] 19 Aug, 2011 [facility] [address] [id number] [address] [place] [address], [place] [address] 12 Aug, 2011 [facility] [address] [id number] [address] [place] [address], [place] [address] 14 Aug, 2011 [facility] [address] [id number] [address] [place] [address], [place] [address] 07 Aug, 2011 [facility] [address] [id number] [address] [place] [address], [place] [address] 27 Jul, 2011 [facility] [address] [id number] [address] [place] [address], [place] [address] Jul, [facility] [address] [id number] [address] [place] [address], [place] [address] Jul, [facility] [address] [id number] [address] [place] [address], [place] [address] 28 May, 2011 [facility] [address] [id number] [address] [place] [address], [place] [address] 28 May, 2011 [facility] [address] [id number] [address] [place] [address], [place] [address] 21 May, 2011 [facility] [address] [id number] [address] [place] [address], [place] [address] 19 May, 2011 [facility] [address] [id number] [address] [place] [address], [place] [address] 13 May, 2011 [facility] [address] [id number] [address] [place] [address], [place] [address] 13 May, 2011 [facility] [address] [id number] [address] [place] [address], [place] [address] May, [facility] [address] [id number] [address] [place] [address] Mar, [facility] [address] [id number] [address] [place] [address] Mar, [facility] [address] [id number] [address] [place] [address] Mar, [facility] [address] [id number] [address] [place] [id number] 15 Mar, [address] [facility] [address] [id number] [address] [place] [id number] Mar, [facility] [address] [id number] [address] [place] [address] Mar, [facility] [address] [id number] [address] [place] [phone] Jan, [facility] [address] [id number] [address] [place] [address] May, [facility] [address] [id number] [address] [place] [address] May, [facility] [address] [id number] [address] [place] [address] May, [facility] [address] [id number] [address] [place] [address] May, [facility] [address] [id number] [address] [place] [address] May, [facility] [address] [id number] [address] [place] [address] May, [facility] [address] [id number] [address] [place] [address] Mar, [facility] [address] [id number] [address] [place] [address] Sep, IMMUNIZATIONS No Known Immunizations SOCIAL HISTORY [...]
--- OUTSIDE RECORDS SUMMARY | 2019-12-31 00:26 | XMS REPORT | Continuity of Care Document ---
Demographics Preferred Language Unknown Marital Status Unknown Jehovah'S Witness Affiliation Unknown Race Unknown Ethnic Group Unknown Author Organization Unknown Address Unknown Phone Unavailable Allergies Active Description Code Type Severity Reaction Onset Reported/Identified Relationship to Patient Clinical Status Yes Penicillins Drug Allergy N/A N/A 07/27/2008 Yes Penicillins Drug Allergy 07/27/2008 Yes Septra Drug Allergy N/A N/A 02/28/2012 Yes Septra Drug Allergy 02/28/2012 Yes Bactrim Drug Allergy N/A N/A 04/20/2013 Yes Sulfa (Sulfonamide Antibiotics) Drug Allergy N/A N/A 04/20/2013 Yes metformin 500 mg tablet,ER isamar.retentio n 24 hr Drug Allergy N/A N/A 08/2013 Yes Xanax XR 2 mg tablet extended release 24 hr Drug Allergy N/A N/A 4 Yes moxifloxacin [id number] Drug Allergy Mild tongue swelling 06/13/2016 Yes Penicillins [id number] Drug Aller gy Mild N/A 06/13/2016 Yes Sulfa (Sulfonamide Antibiotics) [id number] Drug Allergy Unknown N/A 016 Medications There is no data. Problems Date Dx Coded Attending Type Code Diagnosis Diagnosed By 02/06/2008 MARIA DE JESUS MERCADO APRN V58.69 Medication High Risk 02/06/2008 V58.69 Med ication High Risk 02/06/2008 MARIA DE JESUS MERCADO APRN V58.69 Medication High Risk 02/06/2008 V58.69 Med ication High Risk 02/06/2008 MARIA DE JESUS MERCADO APRN V58.69 Medication High Risk 02/06/2008 ROSALINO SULLIVAN APRN V58.69 Medication High Risk 02/06/2008 MARIA DE JESUS MERCADO APRN V58.69 Medication High Risk 02/06/2008 MARIA DE JESUS MERCADO APRN V58.69 Medication High Risk 02/06/2008 MARIA DE JESUS MERCADO APRN V58.69 Medication High Risk 02/06/2008 RUDY MOROCHO, [place] V58.6 9 Medication High Risk 02/06/2008 ALAINA TRUONG, MONA Au V58.69 Medication High Risk 02/06/2008 JLUIS MERCADO APRNNDA S V58.69 Medication High Risk 02/06/2008 JESS RUIZ, MARIA DE JESUS S V58.69 Medication High Risk 02/06/2008 JESS ORIENTOR, MARIA DE JESUS S V58.69 Medication High Risk 02/06/2008 JESS RUIZ, MARIA DE JESUS S V58.69 Medication High Risk 02/06/2008 JESS ORIENTOR, MARIA DE JESUS S V58.69 Medication High Risk 02/06/2008 JESS RUIZ, MARIA DE JESUS S V58.69 Medication High Risk 02/06/2008 MANNY ZAMUDIO, JUAN R Leonardo V58.69 Medication High Risk 02/06/2008 JESS RUIZ, MARIA DE JESUS S V58.69 Medication High Risk 03/10/2008 JLUIS MERCADO APRNNDA S 296.90 Unspecified Episodic Mood Disorder 03/10/2008 JLUIS MERCADO APRNNDA S 300.00 An Anxiety Unspec 03/10/2008 JLUIS MERCADO APRNNDA S 307.47 SI DYSSOMNIA NOS 03/10/2008 296.90 Uns pecified Episodic Mood Disorder 03/10/2008 300.00 An Anxiety Unspec 03/10/2008 307.47 SI DYSSOMNIA NOS 03/10/2008 JLUIS MERCADO APRNNDA S 296.90 Unspecified Episodic Mood Disorder 03/10/2008 JLUIS MERCADO APRNNDA S 300.00 An Anxiety Unspec 03/10/2008 JLUIS MERCADO APRNNDA S 307.47 SI DYSSOMNIA NOS 03/10/2008 296.90 Uns pecified Episodic Mood Disorder 03/10/2008 300.00 An Anxiety Unspec 03/10/2008 307.47 SI DYSSOMNIA NOS 03/10/2008 JLUIS MERCADO APRNNDA S 296.90 Unspecified Episodic Mood Disorder 03/10/2008 JLUIS MERCADO APRNNDA S 300.00 An Anxiety Unspec 03/10/2008 JLUIS MERCADO APRNNDA S 307.47 SI DYSSOMNIA NOS 03/10/2008 ROSALINO SULLIVAN APRN 296.90 Unspecified Episodic Mood Disorder 03/10/2008 SULLIVAN ORIENTOR, ROSALINO R 300.00 An Anxiety Unspec 03/10/2008 SULLIVAN ORIENTOR, ROSALINO R 307.47 SI DYSSOMNIA NOS 03/10/2008 JESS ORIENTOR, MARIA DE JESUS S 296.90 Unspecified Episodic Mood Disorder 03/10/2008 JESS ORIENTOR, MARIA DE JESUS S 300.00 An Anxiety Unspec 03/10/2008 JESS ORIENTOR, MARIA DE JESUS S 307.47 SI DYSSOMNIA NOS 03/10/2008 JESS ORIENTOR, MARIA DE JESUS S 296.90 Unspecified Episodic Mood Disorder 03/10/2008 JESS ORIENTOR, MARIA DE JESUS S 300.00 An Anxiety Unspec 03/10/2008 JESS ORIENTOR, MARIA DE JESUS S 307.47 SI DYSSOMNIA NOS 03/10/2008 JESS ORIENTOR, MARIA DE JESUS S 296.90 Unspecified Episodic Mood Disorder 03/10/2008 JESS RUIZ, MARIA DE JESUS S 300.00 An Anxiety Unspec 03/10/2008 JESS RUIZ, MARIA DE JESUS S 307.47 SI DYSSOMNIA NOS 03/10/2008 MT GRANT MD 296.9 0 Unspecified Episodic Mood Disorder 03/10/2008 MT GRANT MD 300.0 0 An Anxiety Unspec 03/10/2008 MT GRANT MD 307.4 7 SI DYSSOMNIA NOS 03/10/2008 FOLEY DO, MONA K 296.90 Unspecified Episodic Mood Disorder 03/10/2008 FOLEY DO MONA K 300.00 An Anxiety Unspec 03/10/2008 FOLEY DO MONA K 307.47 SI DYSSOMNIA NOS 03/10/2008 JESS SANTOSN, MARIA DE JESUS S 296.90 Unspecified Episodic Mood Disorder 03/10/2008 JESS ORIENTOR, MARIA DE JESUS S 300.00 An Anxiety Unspec 03/10/2008 JESS RUIZ, MARIA DE JESUS S 307.47 SI DYSSOMNIA NOS 03/10/2008 JESS ORIENTOR, MARIA DE JESUS S 296.90 Unspecified Episodic Mood Disorder 03/10/2008 JESS ORIENTOR, MARIA DE JESUS S 300.00 An Anxiety Unspec 03/10/2008 JESS RUIZ, MARIA DE JESUS S 307.47 SI DYSSOMNIA NOS 03/10/2008 JESS ORIENTOR, MARIA DE JESUS S 296.90 Unspecified Episodic Mood Disorder 03/10/2008 JESS ORIENTOR, MARIA DE JESUS S 300.00 An Anxiety Unspec 03/10/2008 JESS ORIENTOR, MARIA DE JESUS S 307.47 SI DYSSOMNIA NOS 03/10/2008 JESS ORIENTOR, MARIA DE JESUS S 296.90 Unspecified Episodic Mood Disorder 03/10/2008 JESS ORIENTOR, MARIA DE JESUS S 300.00 An Anxiety Unspec 03/10/2008 JESS ORIENTOR, MARIA DE JESUS S 307.47 SI DYSSOMNIA NOS 03/10/2008 JESS ORIENTOR, MARIA DE JESUS S 296.90 Unspecified Episodic Mood Disorder 03/10/2008 JESS ORIENTOR, MARIA DE JESUS S 300.00 An Anxiety Unspec 03/10/2008 JESS ORIENTOR, MARIA DE JESUS S 307.47 SI DYSSOMNIA NOS 03/10/2008 JESS ORIENTOR, MARIA DE JESUS S 296.90 Unspecified Episodic Mood Disorder 03/10/2008 JESS SANTOSN, MARIA DE JESUS S 300.00 An Anxiety Unspec 03/10/2008 JESS ORIENTOR, MARIA DE JESUS S 307.47 SI DYSSOMNIA [...] S 300.00 An Anxiety Unspec 03/10/2008 JESS ORIENTOR, MARIA DE JESUS S 307.47 SI DYSSOMNIA NOS 04/08/2008 JESS ORIENTOR, MARIA DE JESUS S 995.20 Unspecified Adverse Effect Of Unspecifie d Drug Medicinal And Biological Substance 04/08/2008 995.20 Uns pecified Adverse Effect Of Unspecified Drug Medicinal And Biological Substance 04/08/2008 JESS SANTOSN, MARIA DE JESUS S 995.20 Unspecified Adverse Effect Of Unspecifie d Drug Medicinal And Biological Substance 04/08/2008 995.20 Uns pecified Adverse Effect Of Unspecified Drug Medicinal And Biological Substance 04/08/2008 JESS RUIZ, MARIA DE JESUS S 995.20 Unspecified Adverse Effect Of Unspecifie d Drug Medicinal And Biological Substance 04/08/2008 ROSALINO SULLIVAN APRN 995.20 Unspecified Adverse Effect Of Unspecifie d Drug Medicinal And Biological Substance 04/08/2008 JESS RUIZ, MARIA DE JESUS S 995.20 Unspecified Adverse Effect Of Unspecifie d Drug Medicinal And Biological Substance 04/08/2008 JLUIS MERCADO APRNNDA S 995.20 Unspecified Adverse Effect Of Unspecifie d Drug Medicinal And Biological Substance 04/08/2008 JESS RUIZ, MARIA DE JESUS S 995.20 Unspecified Adverse Effect Of Unspecifie d Drug Medicinal And Biological Substance 04/08/2008 MT GRANT MD 995.2 0 Unspecified Adverse Effect Of Unspecified Drug Medicinal And Biological Substance 04/08/2008 MNOA FOLEY DO 995.20 Unspecified Adverse Effect Of Unspecified Drug Medicinal And Biological Substance 04/08/2008 JLUIS MERCADO APRNNDA S 995.20 Unspecified Adverse Effect Of Unspecifie d Drug Medicinal And Biological Substance 04/08/2008 JESS RUIZ MARIA DE JESUS S 995.20 Unspecified Adverse Effect Of Unspecifie d Drug Medicinal And Biological Substance 04/08/2008 JLUIS MERCADO APRNNDA S 995.20 Unspecified Adverse Effect Of Unspecifie d Drug Medicinal And Biological Substance 04/08/2008 JLUIS MERCADO APRNNDA S 995.20 Unspecified Adverse Effect Of Unspecifie d Drug Medicinal And Biological Substance 04/08/2008 JESS RUIZ MARIA DE JESUS S 995.20 Unspecified Adverse Effect Of Unspecifie d Drug Medicinal And Biological Substance 04/08/2008 JESS RUIZ MARIA DE JESUS S 995.20 Unspecified Adverse Effect Of Unspecifie d Drug Medicinal And Biological Substance 04/08/2008 JUAN R BRYANT PHD 995.20 Unspecified Adverse Effect Of Unspecifie d Drug Medicinal And Biological Substance 04/08/2008 JESS RUIZ MARIA DE JESUS S 995.20 Unspecified Adverse Effect Of Unspecifie d Drug Medicinal And Biological Substance 07/27/2008 BRIONNA MERCADO APRNA S 719.42 Pain In Joint Involving Upper Arm 07/27/2008 719.42 Aleksandr n In Joint Involving Upper Arm 07/27/2008 JLUIS MERCADO APRNNDA S 719.42 Pain In Joint Involving Upper Arm 07/27/2008 719.42 Aleksandr n In Joint Involving Upper Arm 07/27/2008 JLUIS MERCADO APRNNDA S 719.42 Pain In Joint Involving Upper Arm 07/27/2008 ROSALINO SULLIVAN APRN 719.42 Pain In Joint Involving Upper Arm 07/27/2008 JLUIS MERCADO APRNNDA S 719.42 Pain In Joint Involving Upper Arm 07/27/2008 BRIONNA MERCADO APRNA S 719.42 Pain In Joint Involving Upper Arm 07/27/2008 BRIONNA MERCADO APRNA S 719.42 Pain In Joint Involving Upper Arm 07/27/2008 RUDY [place], [place] 719.4 2 Pain In Joint Involving Upper Arm 07/27/2008 MONA FOLEY DO 719.42 Pain In Joint Involving Upper Arm 07/27/2008 BRIONNA MERCADO APRNA S 719.42 Pain In Joint Involving Upper Arm 07/27/2008 BRIONNA MERCADO APRNA S 719.42 Pain In Joint Involving Upper Arm 07/27/2008 BRIONNA MERCADO APRNA S 719.42 Pain In Joint Involving Upper Arm 07/27/2008 JLUIS MERCADO APRNNDA S 719.42 Pain In Joint Involving Upper Arm 07/27/2008 BRIONNA MERCADO APRNA S 719.42 Pain In Joint Involving Upper Arm 07/27/2008 JLUIS MERCADO APRNNDA S 719.42 Pain In Joint Involving Upper Arm 07/27/2008 MANNY ZAMUDIO, JUAN R Leonardo 719.42 Pain In Joint Involving Upper Arm 07/27/2008 JLUIS MERCADO APRNNDA S 719.42 Pain In Joint Involving Upper Arm 10/15/2008 MARIA DE JESUS MERCADO APRN S 790.29 Hyperglycemia 10/15/2008 790.29 Hyp erglycemia 10/15/2008 MARIA DE JESUS MERCADO APRN S 790.29 Hyperglycemia 10/15/2008 790.29 Hyp erglycemia 10/15/2008 JESS ORIENTOR, MARIA DE JESUS S 790.29 Hyperglycemia 10/15/2008 LAURIE RUIZ ROSALINO R 790.29 Hyperglycemia 10/15/2008 JESS ORIENTOR, MARIA DE JESUS S 790.29 Hyperglycemia 10/15/2008 JESS ORIENTOR, MARIA DE JESUS S 790.29 Hyperglycemia 10/15/2008 JESS ORIENTOR, MARIA DE JESUS S 790.29 Hyperglycemia 10/15/2008 RUDY [place], [place] 790.2 9 Hyperglycemia 10/15/2008 ALAINA TRUONG MONA K 790.29 Hyperglycemia 10/15/2008 JESS ORIENTOR, MARIA DE JESUS S 790.29 Hyperglycemia 10/15/2008 JESS ORIENTOR, MARIA DE JESUS S 790.29 Hyperglycemia 10/15/2008 JESS ORIENTOR, MARIA DE JESUS S 790.29 Hyperglycemia 10/15/2008 JESS ORIENTOR, MARIA DE JESUS S 790.29 Hyperglycemia 10/15/2008 JESS ORIENTOR, MARIA DE JESUS S 790.29 Hyperglycemia 10/15/2008 JESS ORIENTOR, MARIA DE JESUS S 790.29 Hyperglycemia 10/15/2008 MANNY ZAMUDIO, JUAN R A 790.29 Hyperglycemia 10/15/2008 JESS ORIENTOR, MARIA DE JESUS S 790.29 Hyperglycemia 12/31/2008 Ot 940.9 12/31/2008 Ot E849.0 12/31/2008 Ot E926.2 02/22/2009 JLUIS MERCADO APRNNDA S 300.4 DYSTHYMIC DISORDER 02/22/2009 JLUIS MERCADO APRNNDA S 599.0 Urinary Tract Infection Site Not Specified 02/22/2009 300.4 DYST HYMIC DISORDER 02/22/2009 599.0 Urin gail Tract Infection Site Not Specified 02/22/2009 JLUIS MERCADO APRNNDA S 300.4 DYSTHYMIC DISORDER 02/22/2009 JLUIS MERCADO APRNNDA S 599.0 Urinary Tract Infection Site Not Specified 02/22/2009 300.4 DYST HYMIC DISORDER 02/22/2009 599.0 Urin gail Tract Infection Site Not Specified 02/22/2009 JLUIS MERCADO APRNNDA S 300.4 DYSTHYMIC DISORDER 02/22/2009 JESS ORIENTOR, MARIA DE JESUS S 599.0 Urinary Tract Infection Site Not Specified 02/22/2009 SULLIVAN ORIENTOR, ROSALINO R 300.4 DYSTHYMIC DISORDER 02/22/2009 SULLIVAN ORIENTOR, ROSALINO R 599.0 Urinary Tract Infection Site Not Specified 02/22/2009 JESS ORIENTOR, MARIA DE JESUS S 300.4 DYSTHYMIC DISORDER 02/22/2009 JESS ORIENTOR, MARIA DE JESUS S 599.0 Urinary Tract Infection Site Not Specified 02/22/2009 JESS ORIENTOR, MARIA DE JESUS S 300.4 DYSTHYMIC DISORDER 02/22/2009 JESS ORIENTOR, MARIA DE JESUS S 599.0 Urinary Tract Infection Site Not Specified 02/22/2009 JESS ORIENTOR, MARIA DE JESUS S 300.4 DYSTHYMIC DISORDER 02/22/2009 JESS ORIENTOR, MARIA DE JESUS S 599.0 Urinary Tract Infection Site Not Specified 02/22/2009 MT GRANT MD 300.4 DYSTHYMIC DISORDER 02/22/2009 MT GRANT MD 599.0 Urinary Tract Infection Site Not Specified 02/22/2009 FOLEY DO, MONA K 300.4 DYSTHYMIC DISORDER 02/22/2009 FOLEY DO, MONA K 599.0 Urinary Tract Infection Site Not Specified 02/22/2009 JESS ORIENTOR, MARIA DE JESUS S 300.4 DYSTHYMIC DISORDER 02/22/2009 JESS ORIENTOR, MARIA DE JESUS S 599.0 Urinary Tract Infection Site Not Specified 02/22/2009 JESS ORIENTOR, MARIA DE JESUS S 300.4 DYSTHYMIC DISORDER 02/22/2009 JESS ORIENTOR, MARIA DE JESUS S 599.0 Urinary Tract Infection Site Not Specified 02/22/2009 JESS ORIENTOR, MARIA DE JESUS S 300.4 DYSTHYMIC DISORDER 02/22/2009 JESS ORIENTOR, MARIA DE JESUS S 599.0 Urinary Tract Infection Site Not Specified 02/22/2009 JESS ORIENTOR, MARIA DE JESUS S 300.4 DYSTHYMIC DISORDER 02/22/2009 JESS ORIENTOR, MARIA DE JESUS S 599.0 Urinary Tract Infection Site Not Specified 02/22/2009 JESS ORIENTOR, MARIA DE JESUS S 300.4 DYSTHYMIC DISORDER 02/22/2009 JESS ORIENTOR, MARIA DE JESUS S 599.0 Urinary Tract Infection Site Not Specified 02/22/2009 JESS ORIENTOR, MARIA DE JESUS S 300.4 DYSTHYMIC DISORDER 02/22/2009 JESS ORIENTOR, MARIA DE JESUS S 599.0 Urinary Tract Infection Site Not Specified 02/22/2009 MANNY PHD, JUAN R A 300.4 DYSTHYMIC DISORDER 02/22/2009 MANNY PHD, JUAN R A 599.0 Urinary Tract Infection Site Not Specified 02/22/2009 JESS ORIENTOR, MARIA DE JESUS S 300.4 DYSTHYMIC DISORDER 02/22/2009 JESS ORIENTOR, MARIA DE JESUS S 599.0 Urinary Tract Infection Site Not Specified 06/15/2009 JESS ORIENTOR, MARIA DE JESUS S V74.1 Screening Examination For Pulmonary Tuberculosis 06/15/2009 V74.1 Scre ening Examination For Pulmonary Tuberculosis 06/15/2009 JESS ORIENTOR, MARIA DE JESUS S V74.1 Screening Examination For Pulmonary Tuberculosis 06/15/2009 V74.1 Scre ening Examination For Pulmonary Tuberculosis 06/15/2009 JESS ORIENTOR, MARIA DE JESUS S V74.1 Screening Examination For Pulmonary Tuberculosis 06/15/2009 LAURIE RUIZ, ROSALINO R V74.1 Screening Examination For Pulmonary Tuberculosis 06/15/2009 JESS ORIENTOR, MARIA DE JESUS S V74.1 Screening Examination For Pulmonary Tuberculosis 06/15/2009 JESS ORIENTOR, MARIA DE JESUS S V74.1 Screening Examination For Pulmonary Tuberculosis 06/15/2009 JESS ORIENTOR, MARIA DE JESUS S V74.1 Screening Examination For Pulmonary Tuberculosis 06/15/2009 MT GRANT MD V74.1 Screening Examination For Pulmonary Tuberculosis 06/15/2009 MONA FOLEY DO V74.1 Screening Examination For Pulmonary Tuberculosis 06/15/2009 JESS ORIENTOR, MARIA DE JESUS S V74.1 Screening Examination For Pulmonary Tuberculosis 06/15/2009 JESS ORIENTOR, MARIA DE JESUS S V74.1 Screening Examination For Pulmonary Tuberculosis 06/15/2009 JESS ORIENTOR, MARIA DE JESUS S V74.1 Screening Examination For Pulmonary Tuberculosis 06/15/2009 JESS ORIENTOR, MARIA DE JESUS S V74.1 Screening Examination For Pulmonary Tuberculosis 06/15/2009 JESS ORIENTOR, MARIA DE JESUS S V74.1 Screening Examination For Pulmonary Tuberculosis 06/15/2009 JESS ORIENTOR, MARIA DE JESUS S V74.1 Screening Examination For Pulmonary Tuberculosis 06/15/2009 MANNY ZAMUDIO, JUAN R Leonardo V74.1 Screening Examination For Pulmonary Tuberculosis 06/15/2009 JESS ORIENTOR, MARIA DE JESUS S V74.1 Screening Examination For Pulmonary Tuberculosis 08/22/2009 JESS ORIENTOR, MARIA DE JESUS S 465.9 Acute Upper Respiratory Infections Of Unspecified Site 08/22/2009 JESS ORIENTOR, MARIA DE JESUS S 599.70 Hematuria, Unspecified 08/22/2009 465.9 Acut e Upper Respiratory Infections Of Unspecified Site 08/22/2009 599.70 Hem aturia, Unspecified 08/22/2009 JESS ORIENTOR, MARIA DE JESUS S 465.9 Acute Upper Respiratory Infections Of Unspecified Site 08/22/2009 JESS ORIENTOR, MARIA DE JESUS S 599.70 Hematuria, Unspecified 08/22/2009 465.9 Acut e Upper Respiratory Infections Of Unspecified Site 08/22/2009 599.70 Hem aturia, Unspecified 08/22/2009 JESS ORIENTOR, MARIA DE JESUS S 465.9 Acute Upper Respiratory Infections Of Unspecified Site 08/22/2009 JESS ORIENTOR, MARIA DE JESUS S 599.70 Hematuria, Unspecified 08/22/2009 SULLIVAN ORIENTOR, ROSALINO R 465.9 Acute Upper Respiratory Infections Of Unspecified Site 08/22/2009 SULLIVAN ORIENTOR, ROSALINO R 599.70 Hematuria, Unspecified 08/22/2009 JESS ORIENTOR, MARIA DE JESUS S 465.9 Acute Upper Respiratory Infections Of Unspecified Site 08/22/2009 JESS ORIENTOR, MARIA DE JESUS S 599.70 Hematuria, Unspecified 08/22/2009 JESS ORIENTOR, MARIA DE JESUS S 465.9 Acute Upper Respiratory Infections Of Unspecified Site 08/22/2009 JESS ORIENTOR, MARIA DE JESUS S 599.70 Hematuria, Unspecified 08/22/2009 JESS ORIENTOR, MARIA DE JESUS S 465.9 Acute Upper Respiratory Infections Of Unspecified Site 08/22/2009 JESS ORIENTOR, MARIA DE JESUS S 599.70 Hematuria, Unspecified 08/22/2009 RUDY [place], [place] 465.9 Acute Upper Respiratory Infections Of Unspecified Site 08/22/2009 RUDY [place], [place] 599.7 0 Hematuria, Unspecified 08/22/2009 FOLEY DO, MONA K 465.9 Acute Upper Respiratory Infections Of Unspecified Site 08/22/2009 FOLEY DO, MONA K 599.70 Hematuria, Unspecified 08/22/2009 JESS ORIENTOR, MARIA DE JESUS S 465.9 Acute Upper Respiratory Infections Of Unspecified Site 08/22/2009 JESS ORIENTOR, MARIA DE JESUS S 599.70 Hematuria, Unspecified 08/22/2009 JESS ORIENTOR, MARIA DE JESUS S 465.9 Acute Upper Respiratory Infections Of Unspecified Site 08/22/2009 JESS ORIENTOR, MARIA DE JESUS S 599.70 Hematuria, Unspecified 08/22/2009 JESS ORIENTOR, MARIA DE JESUS S 465.9 Acute Upper Respiratory Infections Of Unspecified Site 08/22/2009 JESS ORIENTOR, MARIA DE JESUS S 599.70 Hematuria, Unspecified 08/22/2009 JESS ORIENTOR, MARIA DE JESUS S 465.9 Acute Upper Respiratory Infections Of Unspecified Site 08/22/2009 JESS ORIENTOR, MARIA DE JESUS S 599.70 Hematuria, Unspecified 08/22/2009 JESS ORIENTOR, MARIA DE JESUS S 465.9 Acute Upper Respiratory Infections Of Unspecified Site 08/22/2009 JESS ORIENTOR, MARIA DE JESUS S 599.70 Hematuria, Unspecified 08/22/2009 JESS ORIENTOR, MARIA DE JESUS S 465.9 Acute Upper Respiratory Infections Of Unspecified Site 08/22/2009 JESS ORIENTOR, MARIA DE JESUS S 599.70 Hematuria, Unspecified 08/22/2009 MANNY ZAMUDIO, JUAN R Leonardo 465.9 Acute Upper Respiratory Infections Of Unspecified Site 08/22/2009 MANNY ZAMUDIO, JUAN R A 599.70 Hematuria, Unspecified 08/22/2009 JESS ORIENTOR, MARIA DE JESUS S 465.9 Acute Upper Respiratory Infections Of Unspecified Site 08/22/2009 JESS ORIENTOR, MARIA DE JESUS S 599.70 Hematuria, Unspecified 08/24/2009 JESS ORIENTOR, MARIA DE JESUS S 486 Pneumonia, Organism Unspecified 08/24/2009 486 Pneumo lucina, Organism Unspecified 08/24/2009 JESS ORIENTOR, MARIA DE JESUS S 486 Pneumonia, Organism Unspecified 08/24/2009 486 Pneumo lucina, Organism Unspecified 08/24/2009 JESS ORIENTOR, MARIA DE JESUS S 486 Pneumonia, Organism Unspecified 08/24/2009 SULLIVAN ORIENTOR, ROSALINO R 486 Pneumonia, Organism Unspecified 08/24/2009 JESS ORIENTOR, MARIA DE JESUS S 486 Pneumonia, Organism Unspecified 08/24/2009 JESS ORIENTOR, MARIA DE JESUS S 486 Pneumonia, Organism Unspecified 08/24/2009 JESS ORIENTOR, MARIA DE JESUS S 486 Pneumonia, Organism Unspecified 08/24/2009 RUDY [place], [place] 486 Pneumonia, Organism Unspecified 08/24/2009 MONA FOLEY DO 486 Pneumonia, Organism Unspecified 08/24/2009 JESS ORIENTOR, MARIA DE JESUS S 486 Pneumonia, Organism Unspecified 08/24/2009 JESS ORIENTOR, MARIA DE JESUS S 486 Pneumonia, Organism Unspecified 08/24/2009 JESS ORIENTOR, MARIA DE JESUS S 486 Pneumonia, Organism Unspecified 08/24/2009 JESS ORIENTOR, MARIA DE JESUS S 486 Pneumonia, Organism Unspecified 08/24/2009 JESS ORIENTOR, MARIA DE JESUS S 486 Pneumonia, Organism Unspecified 08/24/2009 JESS ORIENTOR, MARIA DE JESUS S 486 Pneumonia, Organism Unspecified 08/24/2009 MANNY PHD, JUAN R A 4 86 Pneumonia, Organism Unspecified 08/24/2009 JESS ORIENTOR, MARIA DE JESUS S 486 Pneumonia, Organism Unspecified 08/26/2009 Ot 486 PNEUMO LUCINA, ORGANISM NOS 08/26/2009 Ot 599.70 HEM ATURIA, UNSPECIFIED 08/26/2009 Ot 786.2 02/07/2010 JESS ORIENTOR, MARIA DE JESUS S 788.1 Dysuria 02/07/2010 788.1 Dysuria 02/07/2010 JESS ORIENTOR, MARIA DE JESUS S 788.1 Dysuria 02/07/2010 788.1 Dysuria 02/07/2010 JESS ORIENTOR, MARIA DE JESUS S 788.1 Dysuria 02/07/2010 LAURIE ORIENTOR, ROSALINO R 788.1 Dysuria 02/07/2010 JESS ORIENTOR, MARIA DE JESUS S 788.1 Dysuria 02/07/2010 JESS ORIENTOR, MARIA DE JESUS S 788.1 Dysuria 02/07/2010 JESS ORIENTOR, MARIA DE JESUS S 788.1 Dysuria 02/07/2010 RUDY [place], [place] 788.1 Dysuria 02/07/2010 MONA FOLEY DO 788.1 Dysuria 02/07/2010 JESS ORIENTOR, MARIA DE JESUS S 788.1 Dysuria 02/07/2010 JESS ORIENTOR, MARIA DE JESUS S 788.1 Dysuria 02/07/2010 JESS ORIENTOR, MARIA DE JESUS S 788.1 Dysuria 02/07/2010 JESS ORIENTOR, MARIA DE JESUS S 788.1 Dysuria 02/07/2010 JESS ORIENTOR, MARIA DE JESUS S 788.1 Dysuria 02/07/2010 JESS ORIENTOR, MARIA DE JESUS S 788.1 Dysuria 02/07/2010 MANNY ZAMUDIO, JUAN R Leonardo 788.1 Dysuria 02/07/2010 JESS ORIENTOR, MARIA DE JESUS S 788.1 Dysuria 02/21/2010 JESS ORIENTOR, MARIA DE JESUS S 346.90 Migraine Unspecified Without Intractable Migraine 02/21/2010 JESS ORIENTOR, MARIA DE JESUS S 780.79 Fatigue 02/21/2010 346.90 [place] miguel angel Unspecified Without Intractable Migraine 02/21/2010 780.79 Fatigue 02/21/2010 JESS ORIENTOR, MARIA DE JESUS S 346.90 Migraine Unspecified Without Intractable Migraine 02/21/2010 JESS ORIENTOR, MARIA DE JESUS S 780.79 Fatigue 02/21/2010 346.90 [place] miguel angel Unspecified Without Intractable Migraine 02/21/2010 780.79 Fatigue 02/21/2010 JESS ORIENTOR, MARIA DE JESUS S 346.90 Migraine Unspecified Without Intractable Migraine 02/21/2010 JESS ORIENTOR, MARIA DE JESUS S 780.79 Fatigue 02/21/2010 LAURIE RUIZ, ROSALINO R 346.90 Migraine Unspecified Without Intractable Migraine 02/21/2010 LAURIE ORIENTOR, ROSALINO R 780.79 Fatigue 02/21/2010 JESS ORIENTOR, MARIA DE JESUS S 346.90 Migraine Unspecified Without Intractable Migraine 02/21/2010 JESS ORIENTOR, MARIA DE JESUS S 780.79 Fatigue 02/21/2010 JESS ORIENTOR, MARIA DE JESUS S 346.90 Migraine Unspecified Without Intractable Migraine 02/21/2010 JESS ORIENTOR, MARIA DE JESUS S 780.79 Fatigue 02/21/2010 JESS ORIENTOR, MARIA DE JESUS S 346.90 Migraine Unspecified Without Intractable Migraine 02/21/2010 JSES ORIENTOR, MARIA DE JESUS S 780.79 Fatigue 02/21/2010 MT GRANT MD 346.9 0 Migraine Unspecified Without Intractable Migraine 02/21/2010 MT GRANT MD 780.7 9 Fatigue 02/21/2010 FOLEY DO, MONA K 346.90 Migraine Unspecified Without Intractable Migraine 02/21/2010 FOLEY DO, MONA K 780.79 Fatigue 02/21/2010 JESS ORIENTOR, MARIA DE JESUS S 346.90 Migraine Unspecified Without Intractable Migraine 02/21/2010 JESS ORIENTOR, MARIA DE JESUS S 780.79 Fatigue 02/21/2010 JESS ORIENTOR, MARIA DE JESUS S 346.90 Migraine Unspecified Without Intractable Migraine 02/21/2010 JESS ORIENTOR, MARIA DE JESUS S 780.79 Fatigue 02/21/2010 JESS ORIENTOR, MARIA DE JESUS S 346.90 Migraine Unspecified Without Intractable Migraine 02/21/2010 JESS ORIENTOR, MARIA DE JESUS S 780.79 Fatigue 02/21/2010 JESS ORIENTOR, MARIA DE JESUS S 346.90 Migraine Unspecified Without Intractable Migraine 02/21/2010 JESS ORIENTOR, MARIA DE JESUS S 780.79 Fatigue 02/21/2010 JESS ORIENTOR, MARIA DE JESUS S 346.90 Migraine Unspecified Without Intractable Migraine 02/21/2010 JESS ORIENTOR, MARIA DE JESUS S 780.79 Fatigue 02/21/2010 JESS ORIENTOR, MARIA DE JESUS S 346.90 Migraine Unspecified Without Intractable Migraine 02/21/2010 JESS ORIENTOR, MARIA DE JESUS S 780.79 Fatigue 02/21/2010 JUAN R BRYANT PHD 346.90 Migraine Unspecified Without Intractable Migraine 02/21/2010 JUAN R BRYANT PHD 780.79 Fatigue 02/21/2010 JESS ORIENTOR, MARIA DE JESUS S 346.90 Migraine Unspecified Without Intractable Migraine 02/21/2010 JESS ORIENTOR, MARIA DE JESUS S 780.79 Fatigue 05/13/2010 Ot 920 CONTUS ION FACE/SCALP/NCK 05/13/2010 Ot 923.11 CON TUSION OF ELBOW 05/13/2010 Ot 959.09 INJ URY OF FACE AND NECK 05/13/2010 Ot 995.81 VANE LT PHYSICAL ABUSE 05/13/2010 Ot E000.8 OTH ER EXTERNAL CAUSE STATUS 05/13/2010 Ot E849.0 ACC IDENT IN HOME 05/13/2010 Ot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 ALAN LAGUNAS DO Ot F41. 9 ANXIETY DISORDER, UNSPECIFIED 10/08/2017 ALAN LAGUNAS DO Ot J45.909 UNSPECIFIED ASTHMA, UNCOMPLICATED 10/08/2017 HAZEL GUARDADO DO Ot R13. 10 DYSPHAGIA, UNSPECIFIED 10/08/2017 ALAN LAGUNAS DO Ot F41. 9 ANXIETY DISORDER, UNSPECIFIED 10/08/2017 JANNETHALAN PILLAI DO Ot J45.909 UNSPECIFIED ASTHMA, UNCOMPLICATED 10/09/2017 ROXANNE ESPARZA Ot E11.9 TYPE 2 DIABETES MELLITUS WITHOUT COMPLIC 10/09/2017 ROXANNE ESPARZA Ot F32.9 MAJOR DEPRESSIVE DISORDER, SINGLE EPISOD 10/09/2017 ROXANNE ESPARZA Ot F41.9 ANXIETY DISORDER, UNSPECIFIED 10/09/2017 ROXANNE ESPARZA Ot I 10 ESSENTIAL (PRIMARY) HYPERTENSION 10/09/2017 ROXANNE ESPARZA Ot J11.1 FLU DUE TO UNIDENTIFIED INFLUENZA VIRUS 10/09/2017 ROXANNE ESPARZA Ot J43.9 EMPHYSEMA, UNSPECIFIED 10/09/2017 ROXANNE ESPARZA Ot R09.81 NASAL CONGESTION 10/09/2017 ROXANNE ESPARZA Ot Z87.442 PERSONAL HISTORY OF URINARY CALCULI 10/09/2017 ROXANNE ESPARZA Ot Z87.891 PERSONAL HISTORY OF NICOTINE DEPENDENCE 10/09/2017 ROXANNE ESPARZA Ot Z88.0 ALLERGY STATUS TO PENICILLIN 10/09/2017 ROXANNE ESPARZA Ot Z88.1 ALLERGY STATUS TO OTHER ANTIBIOTIC AGENT 10/09/2017 ROXANNE ESPARZA Ot Z88.2 ALLERGY STATUS TO SULFONAMIDES STATUS 10/09/2017 ROXANNE ESPARZA Ot Z90.49 ACQUIRED ABSENCE OF OTHER SPECIFIED PART 01/25/2018 TONO CHASE APRN Ot E11 .9 TYPE 2 DIABETES MELLITUS WITHOUT COMPLIC 01/25/2018 TONO CHASE APRN Ot F32 .9 MAJOR DEPRESSIVE DISORDER, SINGLE EPISOD 01/25/2018 TONO CHASE APRN Ot F41 .9 ANXIETY DISORDER, UNSPECIFIED 01/25/2018 TONO CHASE APRN Ot I10 ESSENTIAL (PRIMARY) HYPERTENSION 01/25/2018 TONO CHASE APRN Ot J43 .9 EMPHYSEMA, UNSPECIFIED 01/25/2018 TONO CHASE APRN Ot J45.909 UNSPECIFIED ASTHMA, UNCOMPLICATED 01/25/2018 TONO CHASE APRN Ot K04 .7 PERIAPICAL ABSCESS WITHOUT SINUS 01/25/2018 TONO CHASE APRN Ot K08.89 OTHER SPECIFIED DISORDERS OF TEETH AND S 01/25/2018 TONO CHASE APRN Ot Z77.22 CNTCT W AND EXPSR TO ENVIRON TOBACCO SMO 01/25/2018 TONO CHASE APRN Ot Z79.51 EMBEDDED LINUX ENGINEER (CURRENT) USE OF INHALED STERO 01/25/2018 TONO CHASE APRN Ot Z79.52 EMBEDDED LINUX ENGINEER (CURRENT) USE OF SYSTEMIC STER 01/25/2018 TONO CHASE APRN Ot Z82.49 FAMILY HX OF ISCHEM HEART DIS AND OTH DI 01/25/2018 TONO CHASE APRN Ot Z87.442 PERSONAL HISTORY OF URINARY CALCULI 01/25/2018 TONO CHASE APRN Ot Z87.448 PERSONAL HISTORY OF OTHER DISEASES OF UR 01/25/2018 TONO CHASE APRN Ot Z88 .0 ALLERGY STATUS TO PENICILLIN 01/25/2018 TONO CHASE APRN Ot Z88 .2 ALLERGY STATUS TO SULFONAMIDES STATUS 01/25/2018 TONO CHASE APRN Ot Z88 .8 ALLERGY STATUS TO OTH DRUG/MEDS/BIOL SUB 01/25/2018 TONO CHASE APRN Ot Z90.89 ACQUIRED ABSENCE OF OTHER ORGANS 01/26/2018 ELMER MOROCHO, MARLI Cota Ot E11.9 TYPE 2 DIABETES MELLITUS WITHOUT COMPLIC 01/26/2018 ELMER MOROCHO, MARLI Cota Ot F17.210 NICOTINE DEPENDENCE, CIGARETTES, UNCOMPL 01/26/2018 MARLI PAYNE MD Ot F32.9 MAJOR DEPRESSIVE DISORDER, SINGLE EPISOD 01/26/2018 MARLI PAYNE MD Ot F41.9 ANXIETY DISORDER, UNSPECIFIED 01/26/2018 MARLI PAYNE MD Ot I10 ESSENTIAL (PRIMARY) HYPERTENSION 01/26/2018 MARLI PAYNE MD Ot J43.9 EMPHYSEMA, UNSPECIFIED 01/26/2018 MARLI PAYNE MD Ot J45.909 UNSPECIFIED ASTHMA, UNCOMPLICATED 01/26/2018 MARLI PAYNE MD, Ot K04.7 PERIAPICAL ABSCESS WITHOUT SINUS 01/26/2018 MARLI PAYNE MD, Ot R68.84 JAW PAIN 01/26/2018 MARLI PAYNE MD, Ot Z79.51 EMBEDDED LINUX ENGINEER (CURRENT) USE OF INHALED STERO 01/26/2018 MARLI PAYNE MD Ot Z79.52 EMBEDDED LINUX ENGINEER (CURRENT) USE OF SYSTEMIC STER 01/26/2018 MARLI PAYNE MD, Ot Z82.49 FAMILY HX OF ISCHEM HEART DIS AND OTH DI 01/26/2018 MARLI PAYNE MD, Ot Z87.442 PERSONAL HISTORY OF URINARY CALCULI 01/26/2018 MARLI PAYNE MD, Ot Z88.0 ALLERGY STATUS TO PENICILLIN 01/26/2018 MARLI PAYNE MD Ot Z88.1 ALLERGY STATUS TO OTHER ANTIBIOTIC AGENT 01/26/2018 MARLI PAYNE MD Ot Z88.2 ALLERGY STATUS TO SULFONAMIDES STATUS 01/26/2018 MARLI PAYNE MD Ot Z90.89 ACQUIRED ABSENCE OF OTHER ORGANS 01/28/2018 TONO CHASE APRN Ot E11 .9 TYPE 2 DIABETES MELLITUS WITHOUT COMPLIC 01/28/2018 TONO CHASE APRN Ot F32 .9 MAJOR DEPRESSIVE DISORDER, SINGLE EPISOD 01/28/2018 TONO CHASE APRN Ot F41 .9 ANXIETY DISORDER, UNSPECIFIED 01/28/2018 TONO CHASE APRN Ot I10 ESSENTIAL (PRIMARY) HYPERTENSION 01/28/2018 TONO CHASE APRN Ot J43 .9 EMPHYSEMA, UNSPECIFIED 01/28/2018 TONO CHASE APRN Ot J45.909 UNSPECIFIED ASTHMA, UNCOMPLICATED 01/28/2018 TONO CHASE APRN Ot K04 .7 PERIAPICAL ABSCESS WITHOUT SINUS 01/28/2018 TONO CHASE APRN Ot K08.89 OTHER SPECIFIED DISORDERS OF TEETH AND S 01/28/2018 TONO CHASE APRN Ot Z77.22 CNTCT W AND EXPSR TO ENVIRON TOBACCO SMO 01/28/2018 TONO CHASE APRN Ot Z79.51 EMBEDDED LINUX ENGINEER (CURRENT) USE OF INHALED STERO 01/28/2018 TONO CHASE APRN Ot Z79.52 HALF-WAY (CURRENT) USE OF SYSTEMIC STER 01/28/2018 TONO CHASE APRN Ot Z82.49 FAMILY HX OF ISCHEM HEART DIS AND OTH DI 01/28/2018 TONO CHASE APRN Ot Z87.442 PERSONAL HISTORY OF URINARY CALCULI 01/28/2018 TONO CHASE APRN Ot Z87.448 PERSONAL HISTORY OF OTHER DISEASES OF UR 01/28/2018 TONO CHASE APRN Ot Z88 .0 ALLERGY STATUS TO PENICILLIN 01/28/2018 TONO CHASE APRN Ot Z88 .2 ALLERGY STATUS TO SULFONAMIDES STATUS 01/28/2018 TONO CHASE APRN Ot Z88 .8 ALLERGY STATUS TO OTH DRUG/MEDS/BIOL SUB 01/28/2018 TONO CHASE APRN Ot Z90.89 ACQUIRED ABSENCE OF OTHER ORGANS 01/28/2018 MARLI PAYNE MD Ot E11.9 TYPE 2 DIABETES MELLITUS WITHOUT COMPLIC 01/28/2018 MARLI PAYNE MD Ot F17.210 NICOTINE DEPENDENCE, CIGARETTES, UNCOMPL 01/28/2018 MARLI PAYNE MD Ot F32.9 MAJOR DEPRESSIVE DISORDER, SINGLE EPISOD 01/28/2018 MARLI PAYNE MD Ot F41.9 ANXIETY DISORDER, UNSPECIFIED 01/28/2018 MARLI PAYNE MD Ot I10 ESSENTIAL (PRIMARY) HYPERTENSION 01/28/2018 MARLI PAYNE MD Ot J43.9 EMPHYSEMA, UNSPECIFIED 01/28/2018 MARLI PAYNE MD Ot J45.909 UNSPECIFIED ASTHMA, UNCOMPLICATED 01/28/2018 MARLI PAYNE MD Ot K04.7 PERIAPICAL ABSCESS WITHOUT SINUS 01/28/2018 MARLI PAYNE MD Ot R68.84 JAW PAIN 01/28/2018 MARLI PAYNE MD Ot Z79.51 EMBEDDED LINUX ENGINEER (CURRENT) USE OF INHALED STERO 01/28/2018 MARLI PAYNE MD Ot Z79.52 EMBEDDED LINUX ENGINEER (CURRENT) USE OF SYSTEMIC STER 01/28/2018 MARLI PAYNE MD, Ot Z82.49 FAMILY HX OF ISCHEM HEART DIS AND OTH DI 01/28/2018 MARLI PAYNE MD, Ot Z87.442 PERSONAL HISTORY OF URINARY CALCULI 01/28/2018 MARLI PAYNE MD, Ot Z88.0 ALLERGY STATUS TO PENICILLIN 01/28/2018 MARLI PAYNE MD Ot Z88.1 ALLERGY STATUS TO OTHER ANTIBIOTIC AGENT 01/28/2018 MARLI PAYNE MD, Ot Z88.2 ALLERGY STATUS TO SULFONAMIDES STATUS 01/28/2018 MARLI PAYNE MD Ot Z90.89 ACQUIRED ABSENCE OF OTHER ORGANS 11/17/2018 MARIA DE JESUS MERCADOP Ot R5 1 HEADACHE 11/17/2018 MARIA DE JESUS MERCADO Ot R93.0 ABNORMAL FINDINGS ON DX IMAGING OF SKULL 11/17/2018 MARIA DE JESUS MERCADO Ot R93.0 ABNORMAL FINDINGS ON DX IMAGING OF SKULL 11/17/2018 MARIA DE JESUS MERCADOP Ot M25.512 PAIN IN LEFT SHOULDER 11/17/2018 MARIA DE JESUS MERCADO Ot R0 5 COUGH 11/17/2018 ALAN LAGUNAS DO Ot F41. 9 ANXIETY DISORDER, UNSPECIFIED 11/17/2018 ALAN LAGUNAS DO Ot J45.909 UNSPECIFIED ASTHMA, UNCOMPLICATED 11/17/2018 HAZEL GUARDADO DO Ot R13. 10 DYSPHAGIA, UNSPECIFIED 11/17/2018 ALAN LAGUNAS DO Ot F41. 9 ANXIETY DISORDER, UNSPECIFIED 11/17/2018 ALAN LAGUNAS DO Ot J45.909 UNSPECIFIED ASTHMA, UNCOMPLICATED 2018 BENJAMIN PINEDO MD Ot R07. 89 OTHER CHEST PAIN 2018 BENJAMIN PINEDO MD Ot Z72. 0 TOBACCO USE 2018 BENJAMIN PINEDO MD Ot Z82. 49 FAMILY HX OF ISCHEM HEART DIS AND OTH DI 11/21/2018 BENJAMIN PINEDO MD Ot R07. 89 OTHER CHEST PAIN 11/21/2018 BENJAMIN PINEDO MD Ot Z72. 0 TOBACCO USE 11/21/2018 BENJAMIN PINEDO MD Ot Z82. 49 FAMILY HX OF ISCHEM HEART DIS AND OTH DI 11/25/2018 BENJAMIN PINEDO MD Ot R07. 89 OTHER CHEST PAIN 11/25/2018 BENJAMIN PINEDO MD Ot Z72. 0 TOBACCO USE 11/25/2018 BENJAMIN PINEDO MD Ot Z82. 49 FAMILY HX OF ISCHEM HEART DIS AND OTH DI 02/14/2019 BENJAMIN PNIEDO MD Ot R07. 89 OTHER CHEST PAIN 02/14/2019 BENJAMIN PINEDO MD Ot Z72. 0 TOBACCO USE 02/14/2019 BENJAMIN PINEDO MD Ot Z82. 49 FAMILY HX OF ISCHEM HEART DIS AND OTH DI 05/06/2019 DEMARCO HINES DOI Ot E11.9 TYPE 2 DIABETES MELLITUS WITHOUT COMPLIC 05/06/2019 DEMARCO HINES DOI Ot F17.21 0 NICOTINE DEPENDENCE, CIGARETTES, UNCOMPL 05/06/2019 FLORA TRUONG QUENTIN Ot F41.8 OTHER SPECIFIED ANXIETY DISORDERS 05/06/2019 DEMARCO HINES DOI Ot G89.29 OTHER CHRONIC PAIN 05/06/2019 FLORA TRUONG QUENTIN Ot I10 ESSENTIAL (PRIMARY) HYPERTENSION 05/06/2019 FLORA TRUONG QUENTIN Ot J18.1 LOBAR PNEUMONIA, UNSPECIFIED ORGANISM 05/06/2019 DEMARCO HINES DOI Ot J43.9 EMPHYSEMA, UNSPECIFIED 05/06/2019 FLORA TRUONG QUENTIN Ot M54.5 LOW BACK PAIN 05/06/2019 DEMARCO HINES DOI Ot Z79.89 1 EMBEDDED LINUX ENGINEER (CURRENT) USE OF OPIATE ANALGE 05/06/2019 DEMARCO HINES DOI Ot Z79.89 9 OTHER EMBEDDED LINUX ENGINEER (CURRENT) DRUG THERAPY 05/06/2019 DEMARCO HINES DOI Ot Z82.49 FAMILY HX OF ISCHEM HEART DIS AND OTH DI 05/06/2019 FLORA TRUONG QUENTIN Ot Z88.0 ALLERGY STATUS TO PENICILLIN 05/06/2019 FLORA TRUONG QUENTIN Ot Z88.1 ALLERGY STATUS TO OTHER ANTIBIOTIC AGENT 05/06/2019 FLORA TRUONG QUENTIN Ot Z88.2 ALLERGY STATUS TO SULFONAMIDES STATUS 05/06/2019 FLORA TRUONG QUENTIN Ot Z90.89 ACQUIRED ABSENCE OF OTHER ORGANS Procedures Code Description Performed By Per formed On Q0091 PAP SMEAR OBTAIN SMEAR 08/05/2012 62384 PAP SMEAR 08/06/2012 [id number] GY NECOLOGIC ADDENDUM REPORT (RESULT ONLY) 08/07/2012 75708 STRE P A (IN-HOUSE) 04/17/2013 94560 ROUT INE VENIPUNCTURE 04/20/2013 92680 UA W / CULTURE IF INDICATED 04/20/2013 13766 ESR/ SED RATE 04/20/2013 [id number] GF R CALC (RESULT ONLY) 04/20/2013 53260 CMP 04/20/2013 92621 CBC 04/20/2013 84614 CULT URE THROAT 04/21/2013 [place] 04/23/2013 43632 ROUT INE VENIPUNCTURE 04/28/2013 65990 ESR/ SED RATE 04/28/2013 3535300 GF R CALC (RESULT ONLY) 04/29/2013 68753 CMP 04/29/2013 47361 URIC ACID 04/29/2013 13206 CULT URE VIRAL 04/29/2013 32824 CRP 04/29/2013 88665 TSH 04/29/2013 30504 HEPA TITIS PROFILE 04/29/2013 39174 ASO 04/30/2013 11417 RA FACTOR 04/30/2013 ANAANA JAVED ANALYZER (SCREEN) 04/30/2013 06808 BIOP SY SKIN LESION (SINGLE) 05/07/2013 16536 ROUT INE VENIPUNCTURE 05/20/2013 49158 CMP 05/20/2013 0986014 GF R CALC (RESULT ONLY) 05/20/2013 50172 INSU RADHA LEVEL 05/21/2013 88049 UA L ROBERT DIP 08/04/2013 95113 ROUT INE VENIPUNCTURE 01/29/2014 65427 CBC 01/29/2014 [id number] GF R CALC (RESULT ONLY) 01/29/2014 98065 CMP 01/29/2014 64869 TSH 01/29/2014 49714 INSU RADHA LEVEL 01/30/2014 36574 ROUT INE VENIPUNCTURE 05/06/2014 31941 CBC 05/08/2014 77399 CULT URE THROAT 05/08/2014 79462 NEBU LIZER TREATMENT 05/17/2014 77505 PSYC H DIAGNOSTIC EVALUATION 06/17/2014 81110 BETA -HYDROXYBUTYRATE 06/21/2014 23159 PROI NSULIN 06/21/2014 17109 ROUT INE VENIPUNCTURE 06/21/2014 32375 GLUCOSE 06/21/2014 92133 C-PEPTIDE 06/21/2014 92240 INSU RADHA LEVEL 06/21/2014 Results Test Result Range Basic Metabolic Panel (8) - 05/16/16 12: 21 Glucose, Serum 123 mg/dL 65-99 BUN 7 mg/dL 6-20 Creatinine, Serum 0.68 mg/dL 0.57-1.00 eGFR If NonAfricn Am 113 mL/min/1.73 >59 eGFR If Africn Am 130 mL/min/1.73 >5 9 BUN/Creatinine Ratio 10 8-20 Sodium, Serum 140 mmol/L 136-144 Potassium, Serum 4.2 mmol/L 3.5-5.2 Chloride, Serum 102 mmol/L 97-106 Carbon Dioxide, Total 22 mmol/L 18-29 Calcium, Serum 9.2 mg/dL 8.7-10.2 Comp. Metabolic Panel (14) - 08/31/16 14 :49 Glucose, Serum 93 mg/dL 65-99 BUN 6 mg/dL 6-20 Creatinine, Serum 0.77 mg/dL 0.57-1.00 eGFR If NonAfricn Am 100 mL/min/1.73 >59 eGFR If Africn Am 115 mL/min/1.73 >5 9 BUN/Creatinine Ratio 8 8-20 Sodium, Serum 143 [...] 12 IU/L 0-32 CBC With Differential/Platelet - 7 14:50 WBC 7.4 x10E3/uL 3.4-10.8 RBC 4.37 x10E6/uL 3.77-5.28 Hemoglobin 14.1 g/dL 11.1-15.9 Hematocrit 40.6 % 34.0-46.6 MCV 93 fL 79-97 MCH 32.3 pg 26.6-33.0 MCHC 34.7 g/dL 31.5-35.7 RDW 13.6 % 12.3-15.4 Platelets 394 x10E3/uL 150-379 Neutrophils 52 % Lymphs 36 % Monocytes 10 % Eos 2 % Basos 0 % Neutrophils (Absolute) 3.8 x10E3/uL 1.4- 7.0 Lymphs (Absolute) 2.6 x10E3/uL 0.7-3.1 Monocytes(Absolute) 0.8 x10E3/uL 0.1-0.9 Eos (Absolute) 0.2 x10E3/uL 0.0-0.4 Baso (Absolute) 0.0 x10E3/uL 0.0-0.2 Immature Granulocytes 0 % Immature Grans (Abs) 0.0 x10E3/uL 0.0-0. 1 Glom Filt Rate, Estimated - 09/24/16 14: 50 Creatinine, Serum 0.81 mg/dL 0.57-1.00 eGFR If NonAfricn Am 94 mL/min/1.73 >59 eGFR If Africn Am 108 mL/min/1.73 >5 9 C-Reactive Protein, Quant - 09/24/16 14: 50 C-Reactive Protein, Quant 0.7 mg/L 0.0- 4.9 Urine beta human chorionic gonadotropin (hCG) measurement - 10/04/16 07:00 Urine beta human chorionic gonadotropin (hCG) measurem ent NEGATIVE NEGATIVE [id number] - 10/08/16 13:41 Serum or plasma urea nitrogen measurement (mass/volume ) 8 mg/dL 7-18 Serum or plasma creatinine measurement (mass/volume) 0.85 mg/dL 0.60-1.30 Serum or plasma urea nitrogen/creatinine mass ratio 9 NRG Serum or plasma creatinine measurement w ith calculation of estimated glomerular filtration rate > NRG Comp. Metabolic Panel (14) - 12/06/16 12 :08 Glucose, Serum 87 mg/dL 65-99 BUN 10 mg/dL 6-20 Creatinine, Serum 0.74 mg/dL 0.57-1.00 eGFR If NonAfricn Am 104 mL/min/1.73 >59 eGFR If Africn Am 120 mL/min/1.73 >5 9 BUN/Creatinine Ratio 14 9-23 Sodium, Serum 140 [...] mg/dL 1.6-2.3 Complete blood count (CBC) with automate d white blood cell (WBC) differential - 12/17/16 13:30 Blood leukocytes automated count (number/volume) 8.1 10*3/uL 4.3-11.0 Blood erythrocytes automated count (number/volume) 3.99 10*6/uL 4.35-5.85 Venous blood hemoglobin measurement (mass/volume) 13.4 g/dL 11.5-16.0 Blood hematocrit (volume fraction) 39 % 35-52 Automated erythrocyte mean corpuscular volume 99 [ foz_us] 80-99 Automated erythrocyte mean corpuscular h emoglobin (mass per erythrocyte) 34 pg 25-34 Automated erythrocyte mean corpuscular h emoglobin concentration measurement (mass/volume) 34 g/dL 32-36 Automated erythrocyte distribution width ratio 12. 9 % 10.0- 14.5 Automated blood platelet count (count/volume) 316 10*3/uL [...] 10*3 1.0-4.0 Blood monocytes automated count (number/volume) 0. 6 10*3 0.0-1.0 Automated eosinophil count 0.1 10*3/uL 0 .0-0.3 Automated blood basophil count (count/volume) 0.0 10*3/uL 0.0-0.1 Comprehensive metabolic panel - 12/17/16 13:30 Serum or plasma sodium measurement (moles/volume) 142 mmol/L 135-145 Serum or plasma potassium measurement (moles/volume) 4.0 mmol/L 3.6-5.0 Serum or plasma chloride measurement (moles/volume) 111 mmol/L 98-107 Carbon dioxide 24 mmol/L 21-32 Serum or plasma anion gap determination (moles/volume) 7 mmol/L 5-14 Serum or plasma urea nitrogen measurement (mass/volume ) 8 mg/dL 7-18 Serum or plasma creatinine measurement (mass/volume) 0.75 mg/dL 0.60-1.30 Serum or plasma urea nitrogen/creatinine mass ratio 11 0-20 Serum or plasma creatinine measurement w ith calculation of estimated glomerular filtration rate > NRG Serum or plasma glucose measurement (mass/volume) 85 mg/dL 70-105 Serum or plasma calcium measurement (mass/volume) 8.9 mg/dL 8.5-10.1 Serum or plasma total bilirubin measurement (mass/volu me) 0.7 mg/dL 0.1-1.0 Serum or plasma alkaline phosphatase tsering surement (enzymatic activity/volume) 54 U/L 40-136 Serum or plasma aspartate aminotransfera se measurement (enzymatic activity/volume) 16 U/L 5-34 Serum or plasma alanine aminotransferase measurement (enzymatic activity/volume) 17 U/L 0-55 Serum or plasma protein measurement (mass/volume) 6.8 g/dL 6.4-8.2 Serum or plasma albumin measurement (mass/volume) 4.0 g/dL 3.2-4.5 Complete blood count (CBC) with automate d white blood cell (WBC) differential - 01/28/17 14:21 Blood leukocytes automated count (number/volume) 8.9 10*3/uL 4.3-11.0 Blood erythrocytes automated count (number/volume) 4.09 10*6/uL 4.35-5.85 Venous blood hemoglobin measurement (mass/volume) 13.8 g/dL 11.5-16.0 Blood hematocrit (volume fraction) 39 % 35-52 Automated erythrocyte mean corpuscular volume 96 [ foz_us] 80-99 Automated erythrocyte mean corpuscular h emoglobin (mass per erythrocyte) 34 pg 25-34 Automated erythrocyte mean corpuscular h emoglobin concentration measurement (mass/volume) 35 g/dL 32-36 Automated erythrocyte distribution width ratio 11. 7 % 10.0- 14.5 Automated blood platelet count (count/volume) 310 10*3/uL [...] 10*3 1.0-4.0 Blood monocytes automated count (number/volume) 0. 7 10*3 0.0-1.0 Automated eosinophil count 0.1 10*3/uL 0 .0-0.3 Automated blood basophil count (count/volume) 0.0 10*3/uL 0.0-0.1 Comprehensive metabolic panel - 01/28/17 14:21 Serum or plasma sodium measurement (moles/volume) 138 mmol/L 135-145 Serum or plasma potassium measurement (moles/volume) 4.2 mmol/L 3.6-5.0 Serum or plasma chloride measurement (moles/volume) 111 mmol/L 98-107 Carbon dioxide 17 mmol/L 21-32 Serum or plasma anion gap determination (moles/volume) 10 mmol/L 5-14 Serum or plasma urea nitrogen measurement (mass/volume ) 11 mg/dL 7-18 Serum or plasma creatinine measurement (mass/volume) 0.74 mg/dL 0.60-1.30 Serum or plasma urea nitrogen/creatinine mass ratio 15 NRG Serum or plasma creatinine measurement w ith calculation of estimated glomerular filtration rate > NRG Serum or plasma glucose measurement (mass/volume) 89 mg/dL 70-105 Serum or plasma calcium measurement (mass/volume) 9.0 mg/dL 8.5-10.1 Serum or plasma total bilirubin measurement (mass/volu me) 0.5 mg/dL 0.1-1.0 Serum or plasma alkaline phosphatase tsering surement (enzymatic activity/volume) 51 U/L 40-136 Serum or plasma aspartate aminotransfera se measurement (enzymatic activity/volume) 16 U/L 5-34 Serum or plasma alanine aminotransferase measurement (enzymatic activity/volume) 14 U/L 0-55 Serum or plasma protein measurement (mass/volume) 7.2 g/dL 6.4-8.2 Serum or plasma albumin measurement (mass/volume) 4.1 g/dL 3.2-4.5 Serum or plasma amylase measurement (enz ymatic activity/volume) - 01/28/17 14:21 Serum or plasma amylase measurement (enzymatic activit y/volume) 34 U/L 25-125 Lipase - 01/28/17 14:21 Lipase 5 U/L 8-78 Urine beta human chorionic gonadotropin (hCG) measurement - 01/28/17 15:12 Urine beta human chorionic gonadotropin (hCG) measurem ent NEGATIVE NEGATIVE CBC - 04/17/17 12:42 WBC [...] % Not Estab. Neutrophils (Absolute) 5.1 x10E3/uL 1.4- 7.0 Lymphs (Absolute) 2.7 x10E3/uL 0.7-3.1 Monocytes(Absolute) 0.6 x10E3/uL 0.1-0.9 Eos (Absolute) 0.1 x10E3/uL 0.0-0.4 Baso (Absolute) 0.0 x10E3/uL 0.0-0.2 Immature Granulocytes 0 % Not Esta b. Immature Grans (Abs) 0.0 x10E3/uL 0.0-0. 1 Immature Cells NRG NRBC NRG Hematology Comments: NRG CULTURE, (EAR, NOSE, SINUS, THROAT)-SPEC FAISAL SOURCE - 04/17/17 12:42 Upper Respiratory Culture Final report NRG Result 1 NRG CBC With Differential/Platelet - 7 12:42 WBC 8.6 x10E3/uL 3.4-10.8 RBC 3.97 [...] % Not Estab. Neutrophils (Absolute) 5.1 x10E3/uL 1.4- 7.0 Lymphs (Absolute) 2.7 x10E3/uL 0.7-3.1 Monocytes(Absolute) 0.6 x10E3/uL 0.1-0.9 Eos (Absolute) 0.1 x10E3/uL 0.0-0.4 Baso (Absolute) 0.0 x10E3/uL 0.0-0.2 Immature Granulocytes 0 % Not Esta b. Immature Grans (Abs) 0.0 x10E3/uL 0.0-0. 1 Upper Respiratory Culture - 04/17/17 12: 42 Upper Respiratory Culture Note Complete blood count (CBC) with automate d white blood cell (WBC) differential - 08/03/17 01:32 Blood leukocytes automated count (number/volume) 12.4 10*3/uL 4.3-11.0 Blood erythrocytes automated count (number/volume) 3.77 10*6/uL 4.35-5.85 Venous blood hemoglobin measurement (mass/volume) 12.7 g/dL 11.5-16.0 Blood hematocrit (volume fraction) 36 % 35-52 Automated erythrocyte mean corpuscular volume 95 [ foz_us] 80-99 Automated erythrocyte mean corpuscular h emoglobin (mass per erythrocyte) 34 pg 25-34 Automated erythrocyte mean corpuscular h emoglobin concentration measurement (mass/volume) 36 g/dL 32-36 Automated erythrocyte distribution width ratio 11. 6 % 10.0- 14.5 Automated blood platelet count (count/volume) 341 10*3/uL [...] 10*3 1.0-4.0 Blood monocytes automated count (number/volume) 0. 9 10*3 0.0-1.0 Automated eosinophil count 0.3 10*3/uL 0 .0-0.3 Automated blood basophil count (count/volume) 0.0 10*3/uL 0.0-0.1 Comprehensive metabolic panel - 08/03/17 01:32 Serum or plasma sodium measurement (moles/volume) 138 mmol/L 135-145 Serum or plasma potassium measurement (moles/volume) 3.7 mmol/L 3.6-5.0 Serum or plasma chloride measurement (moles/volume) 107 mmol/L 98-107 Carbon dioxide 18 mmol/L 21-32 Serum or plasma anion gap determination (moles/volume) 13 mmol/L 5-14 Serum or plasma urea nitrogen measurement (mass/volume ) 11 mg/dL 7-18 Serum or plasma creatinine measurement (mass/volume) 0.74 mg/dL 0.60-1.30 Serum or plasma urea nitrogen/creatinine mass ratio 15 NRG Serum or plasma creatinine measurement w ith calculation of estimated glomerular filtration rate > NRG Serum or plasma glucose measurement (mass/volume) 98 mg/dL 70-105 Serum or plasma calcium measurement (mass/volume) 8.6 mg/dL 8.5-10.1 Serum or plasma total bilirubin measurement (mass/volu me) 0.4 mg/dL 0.1-1.0 Serum or plasma alkaline phosphatase tsering surement (enzymatic activity/volume) 42 U/L 40-136 Serum or plasma aspartate aminotransfera se measurement (enzymatic activity/volume) 15 U/L 5-34 Serum or plasma alanine aminotransferase measurement (enzymatic activity/volume) 11 U/L 0-55 Serum or plasma protein measurement (mass/volume) 6.7 g/dL 6.4-8.2 Serum or plasma albumin measurement (mass/volume) 3.8 g/dL 3.2-4.5 Serum or plasma ethanol measurement (mas s/volume) - 08/03/17 01:32 Serum or plasma ethanol measurement (mass/volume) < mg/dL <10 Urine beta human chorionic gonadotropin (hCG) measurement - 08/03/17 02:02 Urine beta human chorionic gonadotropin (hCG) measurem ent NEGATIVE NEGATIVE Complete urinalysis with reflex to cultu re - 08/03/17 02:02 Urine color determination YELLOW NRG Urine clarity determination SLIGHTLY CLOUDY NRG Urine pH measurement by test strip 6 5-9 Specific gravity of urine by test strip 1.020 1.016-1.022 Urine protein assay by test strip, semi-quantitative 1+ NEGATIVE Urine glucose detection by automated test strip NE GATIVE NEGATIVE Erythrocytes detection in urine sediment by light micr oscopy 5+ NEGATIVE Urine ketones detection by automated test strip 1+ NEGATIVE Urine nitrite detection by test strip NEGATIVE NEGATIVE Urine total bilirubin detection by test strip NEGA TIVE NEGATIVE Urine urobilinogen measurement by automated test strip (mass/volume) 1 mg/dL NORMAL Urine leukocyte esterase detection by dipstick 1+ NEGATIVE Automated urine sediment erythrocyte cou nt by microscopy (number/high power field) [HPF] NRG Automated urine sediment leukocyte count by microscopy (number/high power field) [HPF] NRG Bacteria detection in urine sediment by light microsco py MODERATE NRG Squamous epithelial cells detection in u rine sediment by light microscopy 2-5 NRG Crystals detection in urine sediment by light microsco py NONE NRG Casts detection in urine sediment by light microscopy NONE NRG Mucus detection in urine sediment by light microscopy MODERATE NRG Complete urinalysis with reflex to culture YES NRG Bacterial urine culture - 08/03/17 02:02 URINE CULTURE RESULTS MORE THAN 3 ISOLATES NRG CBC - 08/06/17 09:56 WHITE BLOOD CELL COUNT 9.7 Thousand/uL 3 .8-10.8 RED BLOOD CELL COUNT 4.13 Million/uL 3.8 0-5.10 HEMOGLOBIN 13.6 g/dL 11.7-15.5 HEMATOCRIT 40.6 % 35.0-45.0 MCV 98.3 fL 80.0-100.0 MCH 32.9 pg 27.0-33.0 MCHC 33.5 g/dL 32.0-36.0 RDW 11.3 % 11.0-15.0 PLATELET COUNT 382 Thousand/uL 140-400 MPV 9.6 fL 7.5-12.5 ABSOLUTE NEUTROPHILS 7130 cells/uL 1500- 7800 ABSOLUTE LYMPHOCYTES 1678 cells/uL 850-3 900 ABSOLUTE MONOCYTES 757 cells/uL 200-950 ABSOLUTE EOSINOPHILS 97 cells/uL 15-500 ABSOLUTE BASOPHILS 39 cells/uL 0-200 NEUTROPHILS 73.5 % NRG LYMPHOCYTES 17.3 % NRG MONOCYTES 7.8 % NRG EOSINOPHILS 1.0 % NRG BASOPHILS 0.4 % NRG Influenza virus A and B antigen detectio n - 10/07/17 21:46 FLU RESULT NEGATIVE FOR INFLUENZA A AND B ANTIGENS BY [facility] PDM - 09 PANEL (PROFILE 1) - 01/06/18 10 :56 Prescribed Drug 1 Xanax(TM) NRG Creatinine 126.1 mg/dL > or = 20.0 pH 6.13 4.5 - 9.0 Oxidant NEGATIVE mcg/mL <200 Amphetamines NEGATIVE ng/mL <500 medMATCH Amphetamines CONSISTENT NRG Benzodiazepines POSITIVE ng/mL <100 Marijuana Metabolite NEGATIVE ng/mL <20 medMATCH Marijuana Metab CONSISTENT NRG Cocaine Metabolite NEGATIVE ng/mL <150 medMATCH Cocaine Metab CONSISTENT NRG Opiates NEGATIVE ng/mL <100 medMATCH Opiates CONSISTENT NRG Oxycodone NEGATIVE ng/mL <100 medMATCH Oxycodone CONSISTENT NRG COMMENT NRG Alphahydroxyalprazolam 134 ng/mL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 [id number] 08/23/2009 14:11:00 Document Registration [id number] 12/31/2008 06:41:00 Document Registration [id number] 05/17/2016 08:07:00 Document Registration [id number] 04/18/2017 08:07:00 Document Registration [id number] 09/25/2016 13:05:00 Document Registration [id number] 06/21/2014 11:13:00 06/21/2014 23:59: 59 CLS Outpatient JESS ORIENTORJLUISMARIA DE JESUS S [id number] 06/16/2014 13:47:00 06/16/2014 23:59: 59 CLS Outpatient JUAN R BRYANT PHD [id number] 05/24/2014 14:43:00 05/24/2014 23:59: 59 CLS Outpatient JESS ORIENTOR MARIA DE JESUS S [id number] 05/13/2014 14:02:00 05/13/2014 23:59: 59 CLS Outpatient JESS ORIENTORJLUISMARIA DE JESUS S [id number] 05/06/2014 17:56:00 05/06/2014 23:59: 59 CLS Outpatient JESS ORIENTOR, MARIA DE JESUS S [id number] 04/21/2014 08:20:00 04/21/2014 23:59: 59 CLS Outpatient JESS ORIENTOR MARIA DE JESUS S [id number] 01/29/2014 08:19:00 01/29/2014 23:59: 59 CLS Outpatient JESS ORIENTOR MARIA DE JESUS S [id number] 08/04/2013 15:52:00 08/04/2013 23:59: 59 CLS Outpatient JESS ORIENTOR MARIA DE JESUS S [id number] 05/21/2013 17:07:00 05/21/2013 23:59: 59 CLS Outpatient ALAINA TRUONGMONA Roe [id number] 05/14/2013 08:19:00 05/14/2013 23:59: 59 CLS Outpatient MT GRANT MD [id number] 05/07/2013 08:20:00 05/07/2013 23:59: 59 CLS Outpatient JESS ORIENTOR MARIA DE JESUS S [id number] 04/28/2013 16:33:00 04/28/2013 23:59: 59 CLS Outpatient JESS ORIENTOR MARIA DE JESUS S [id number] 04/23/2013 16:35:00 04/23/2013 23:59: 59 CLS Outpatient JESS ORIENTOR, MARIA DE JESUS S [id number] 04/17/2013 13:16:00 04/17/2013 23:59: 59 CLS Outpatient ROSALINO SULLIVAN APRN [id number] 04/13/2013 16:03:00 04/13/2013 23:59: 59 CLS Outpatient JESS ORIENTOR, MARIA DE JESUS S [id number] 08/04/2012 12:18:00 08/04/2012 23:59: 59 CLS Outpatient MARIA DE JESUS MERCADO APRN [id number] 07/17/2012 17:37:00 07/17/2012 23:59: 59 CLS Outpatient [id number] 03/13/2012 14:39:00 03/13/2012 23:59: 59 CLS Outpatient MARIA DE JESUS MERCADO APRN [id number] 02/23/2013 15:58:00 Document Registration [id number] 04/19/2017 16:08:00 Document Registration
--- NOTE | 2019-12-31 00:29 | ED Back Pain ---
General Chief Complaint: Back Problems Stated Complaint: BACK PAIN Nursing Triage Note: C/O LOWER BACK PAIN, WENT TO HER DR TODAY AND WAS WORKED UP FOR BACK PAIN. PATIENT STATES SHE WAS HERE EARLIER FOR A CT SCAN AND DOES NOT KNOW THE RESULTS. HAS BEEN TAKING IBUPROFEN AND TYLENOL FOR PAIN AT HOME, UNABLE TO GET PAIN RELIEF AT HOME. VERBALIZES HX OF LOW BACK PAIN AND KIDNEY STONES. Nursing Sepsis Screen: No Definite Risk Source of Information: Patient History of Present Illness Date Seen by Provider: Dec 30, 2019 Time Seen by Provider: 23:05 Initial Comments PT ARRIVES VIA POV FROM HOME C/O LOWER BACK PAIN--MOSTLY LEFT FLANK--X 3 DAYS NOTHING WORSENS OR IMPROVES PAIN HAS HAD FEVER UP TO 102.6 SINCE PAIN BEGAN 3 DAYS AGO TOOK IBUPROFEN AT 2000, AND TYLENOL AT 2200 TONIGHT--TEMP DOWN + NAUSEA, NO VOMITING. NO DIARRHEA C/O PAIN / URGENCY ON URINATION. NO HEMATURIA HAS HISTORY OF KIDNEY STONES SEEN AT [facility] BY NURA MERCADO, HAD UA DONE WHICH SHOWED HEMATURIA, AND OUTPATIENT CT SCAN WAS DONE, BUT RESULTS ARE NOT KNOWN. NO COUGH OR URI SYMPTOMS NO KNOWN SICK CONTACTS OR EXPOSURE TO COVID-19. Allergies and Home Medications Allergies Coded Allergies: Penicillins (Unverified Allergy, Mild, 06/13/16) moxifloxacin (Unverified Allergy, Mild, tongue swelling, 06/13/16) Sulfa (Sulfonamide Antibiotics) (Verified Allergy, Unknown, 06/13/16) Home Medications Acetaminophen 325 Mg Tablet, 650 MG PO Q6H PRN for PAIN-MILD, (Reported) Albuterol Sulfate 1 Puff Puff, 2 PUFF IH Q4H PRN for SHORTNESS OF BREATH, (Reported) 1 PUFF = 90 MCG Albuterol Sulfate 2.5 Mg/3 Ml Vial.neb, 2.5 MG NEB Q4H PRN for SHORTNESS OF BREATH, (Reported) Alprazolam 2 Mg Tab.er.24h, 2 MG PO DAILY, (Reported) Azithromycin 250 Mg Tablet, 250 MG PO DAILY Prescribed by: QUENTIN HINES on 05/06/191121 Cefdinir 300 Mg Capsule, 300 MG PO BID Prescribed by: QUENTIN HINES on 05/06/191121 Cyclobenzaprine HCl 10 Mg Tablet, 10 MG PO Q8H PRN for SPASMS Prescribed by: FERNANDA CURTIS on 12/31/1931 Epinephrine 0.3 Mg/0.3 Ml Auto.injct, 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, (Reported) Escitalopram Oxalate 20 Mg Tablet, 20 MG PO DAILY, (Reported) Ibuprofen 200 Mg Tablet, 600 MG PO TID PRN for PAIN-MILD, (Reported) Nitrofurantoin Monohyd/M-Cryst 100 Mg Capsule, 1 TAB PO BID Prescribed by: FERNANDA CURTIS on 12/31/1931 Tramadol HCl 50 Mg Tablet, 50 MG PO Q4H Prescribed by: FERNANDA CURTIS on 12/31/1931 Patient Home Medication List Home Medication List Reviewed: Yes Review of Systems Constitutional: see HPI, fever EENTM: no symptoms reported Respiratory: no symptoms reported; No cough, No short of breath Cardiovascular: no symptoms reported; No chest pain Gastrointestinal: see HPI; No diarrhea; nausea; No vomiting Genitourinary: see HPI, dysuria Control/STD Prophylaxis: None Musculoskeletal: see HPI, back pain Skin: no symptoms reported Psychiatric/Neurological: No Symptoms Reported Past Jcckudg-Jyyfrk-Nyvofl Hx Past Med/Social Hx: Reviewed and Corrections made Patient Social History Alcohol Use: Denies Use Recreational Drug Use: No Smoking Status: Former Smoker Type Used: Cigarettes 2nd Hand Smoke Exposure: Yes Recent Foreign Travel: No Contact w/Someone Who Travel: No Recent Infectious Disease Expo: No Recent Hopitalizations: No Physical Abuse: No Sexual Abuse: No Mistreated: No Fear: No Immunizations Up To Date Tetanus Booster (TDap): Less than 5yrs PED Vaccines UTD: Yes Date of Pneumonia Vaccine: Apr 09, 2013 Date of Influenza Vaccine: Apr 09, 2016 Seasonal Allergies Seasonal Allergies: No Past Medical History Surgeries: Yes Appendectomy, Orthopedic Respiratory: Yes Asthma, Emphysema Currently Using CPAP: No Currently Using BIPAP: No Cardiac: Yes Heart Murmur, Hypertension Neurological: No Reproductive Disorders: No Female Reproductive Disorders: Denies Sexually Transmitted Disease: No HIV/AIDS: No Genitourinary: Yes Kidney Infection, Bladder Infection, Kidney Stones Gastrointestinal: No Musculoskeletal: Yes Chronic Back Pain Endocrine: Yes Diabetes, Non-Insulin dep HEENT: No Loss of Vision: Denies Hearing Impairment: Denies Cancer: No Psychosocial: Yes Anxiety, Depression Integumentary: No Blood Disorders: No Adverse Reaction/Blood Tranf: No (never had a transfusion) Family Medical History Cardiovascular disease 19 FATHER Hypertension 19 FATHER Myocardial infarction 19 FATHER No Family History of: Diabetes mellitus Respiratory disorder Seizure disorder No Pertinent Family Hx, Heart Disease, Cancer, Renal Disease Physical Exam Vital Signs Vital Signs - First Documented 12/30/19 23:05 Temp 36.8 Pulse 70 Resp 20 B/P (MAP) 128/72 (90) Pulse Ox 97 O2 Delivery Room Air Capillary Refill : Less Than 3 Seconds Height, Weight, BMI Height: 5'4.00" Weight: 131lbs. 0.0oz. 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4-10.4 FL Neutrophils (%) (Auto) 52 42-75 % Lymphocytes (%) (Auto) 34 12-44 % Monocytes (%) (Auto) 10 0-12 % Eosinophils (%) (Auto) 4 0-10 % Basophils (%) (Auto) 0 0-10 % Neutrophils # (Auto) 4.5 1.8-7.8 X 10^3 Lymphocytes # (Auto) 3.0 1.0-4.0 X 10^3 Monocytes # (Auto) 0.9 0.0-1.0 X 10^3 Eosinophils # (Auto) 0.3 0.0-0.3 10^3/uL Basophils # (Auto) 0.0 0.0-0.1 10^3/uL Sodium Level 138 135-145 MMOL/L Potassium Level 3.8 3.6-5.0 MMOL/L Chloride Level 108 H 98-107 MMOL/L Carbon Dioxide Level 17 L 21-32 MMOL/L Anion Gap 13 5-14 MMOL/L Blood Urea Nitrogen 13 7-18 MG/DL Creatinine 0.74 0.60-1.30 MG/DL Estimat Glomerular Filtration Rate > 60 BUN/Creatinine Ratio 18 Glucose Level 88 70-105 MG/DL Calcium Level 8.9 8.5-10.1 MG/DL Corrected Calcium 8.8 8.5-10.1 MG/DL Total Bilirubin 0.3 0.1-1.0 MG/DL Aspartate Amino Transf (AST/SGOT) 17 5-34 U/L Alanine Aminotransferase (ALT/SGPT) 13 0-55 U/L Alkaline Phosphatase 49 40-136 U/L Total Protein 7.3 6.4-8.2 GM/DL Albumin 4.1 3.2-4.5 GM/DL Procalcitonin 0.02 <0.10 NG/ML Serum Test, Qualitative NEGATIVE NEGATIVE Urine Color YELLOW Urine Clarity SL CLOUDY Urine pH 6.0 5-9 Urine Specific [place] 1.025 H 1.016-1.022 Urine Protein NEGATIVE NEGATIVE Urine Glucose (UA) NEGATIVE NEGATIVE Urine Ketones NEGATIVE NEGATIVE Urine Nitrite NEGATIVE NEGATIVE Urine Bilirubin NEGATIVE NEGATIVE Urine Urobilinogen 0.2 < = 1.0 MG/DL Urine Leukocyte Esterase NEGATIVE NEGATIVE Urine RBC (Auto) 3+ H NEGATIVE Urine RBC 5-10 H /HPF Urine WBC 0-2 /HPF Urine Squamous Epithelial Cells 2-5 /HPF Urine Crystals NONE /LPF Urine Bacteria MODERATE H /HPF Urine Casts NONE /LPF Urine Mucus SMALL H /LPF Urine Yeast FEW H /HPF Urine Culture Indicated YES Lactic Acid Level 1.01 0.50-2.00 MMOL/L My Orders Orders - FERNANDA CURTIS DO Ua Culture If Indicated (12/30/19 23:03) Urine Culture (12/30/19 23:19) Ed Iv/Invasive Line Start (12/30/19 23:34) Cbc With Automated Diff (12/30/19 23:34) Comprehensive Metabolic Panel (12/30/19 23:34) Lactic Acid Analyzer (12/30/19 23:34) Procalcitonin (Pct) (12/30/19 23:34) Blood Culture (12/30/19 23:34) Ed Iv/Invasive Line Start (12/30/19 23:34) Lactated Ringers (Lr 1000 Ml Iv Solution (12/30/19 23:34) Ketorolac Injection (Toradol Injection) (12/30/19 23:34) Ceftriaxone For Iv Use (Rocephin For I (12/30/19 23:45) Hcg,Qualitative Serum (12/30/19 23:49) Rx-Cyclobenzaprine Tablet (Rx-Flexeril T (12/31/19 00:38) Rx-Tramadol Hcl (Rx-Ultram) (12/31/19 00:38) Rx-Cyclobenzaprine Tablet (Rx-Flexeril T (12/31/19 00:42) Rx-Tramadol Hcl (Rx-Ultram) (12/31/19 00:42) Medications Given in ED Current Medications Medications Dose Ordered Sig/Wallace Route Start Time Stop Time Status Last Admin Dose Admin Ceftriaxone Sodium 1000 mg/ Sterile Water 10 ml @ 200 mls/hr ONCE ONCE IV 12/30/19 23:45 12/30/19 23:47 DC 12/31/19 00:04 200 MLS/HR Lactated Ringer's 1,000 ml @ 0 mls/hr Q0M ONCE IV 12/30/19 23:34 12/30/19 23:36 DC 12/31/19 00:03 1,000 MLS/HR Vital Signs/I&O 12/30/19 12/31/19 23:05 00:53 Temp 36.8 Pulse 70 61 Resp 20 18 B/P (MAP) 128/72 (90) 111/58 Pulse Ox 97 97 O2 Delivery Room Air Blood Pressure Mean: 90 Progress Progress Note : Progress Note GIVEN IV FLUIDS, TORADOL AND ROCEPHIN PAIN EASED NO FEVER DURING ER STAY Diagnostic Imaging Comments CT SCAN DONE EARLIER TODAY: IMPRESSION: Essentially unremarkable noncontrast CT of abdomen and pelvis with the exception of possible tiny nonobstructing right renal calculus. No acute feature is detected. D Reviewed: Reviewed by Me Departure Impression Primary Impression: Urinary tract infection Additional Impressions: Microscopic hematuria Left flank pain NONOBSTRUCTING RIGHT INTRARENAL STONE Disposition: HOME, SELF-CARE Condition: Improved Departure-Patient Inst. Referrals: [facility] (PCP) Primary Care Physician MARIA DE JESUS MERCADO (Family) Primary Care Physician Patient Instructions: Blood in the Urine (Hematuria), Adult (DC), Kidney Stones (DC), Urinary Tract Infection, Adult (DC) Add. Discharge Instructions: LOTS OF CLEAR LIQUIDS--NO COFFEE, POP OR TEA MOIST HEAT TO BACK AT 20 MINUTE INTERVALS TYLENOL 1 GRAM /MOTRIN 800 MG 4 TIMES A DAY FOR PAIN OR FEVER FOLLOW UP WITH [facility] IN 2-3 DAYS FOR FURTHER CARE All discharge instructions reviewed with patient and/or family. Voiced understanding. Scripts Tramadol HCl (Ultram) 50 Mg Tablet 50 MG PO Q4H for Pain, #20 TAB Prov: FERNANDA CURTIS DO 12/31/19 Cyclobenzaprine HCl (Cyclobenzaprine HCl) 10 Mg Tablet 10 MG PO Q8H PRN for SPASMS, #15 TAB 0 Refills Prov: FERNANDA CURTIS DO 12/31/19 Nitrofurantoin Monohyd/M-Cryst (Macrobid 100 mg Capsule) 100 Mg Capsule 1 TAB PO BID, #20 CAP Prov: FERNANDA CURTIS DO 12/31/19 FERNANDA CURTIS DO Dec 31, 2019 00:29
[2019-12-31] MEDS ORDERED: NITR-65 PO (00:32)
[2019-12-31] MEDS ORDERED: TRAM-42 PO (00:32)
[2019-12-31] MEDS ORDERED: CYCL10TA9 PO (00:32)
[2019-12-31] MEDS ORDERED: RX-CYCLOBENZAPRINE 10 MG (FLEXERIL) TAB PPK#3 PO STA (00:38)
[2019-12-31] MEDS ORDERED: RX-TRAMADOL 50 MG (ULTRAM) TAB PPK#4 PO STA (00:38)
[2019-12-31] MEDS ORDERED: RX-TRAMADOL 50 MG (ULTRAM) TAB PPK#4 PO ONE (00:42)
[2019-12-31] MEDS ORDERED: RX-CYCLOBENZAPRINE 10 MG (FLEXERIL) TAB PPK#3 PO ONE (00:42)
[2019-12-31 00:53] VITALS: BP 111/58
== END 2019-12-31 00:53 | disposition home or self-care (01) ==
LOC: EDUNIT# 22:57 → ER 22:58
DX: N39.0 Urinary tract infection, site not specified (principal); N20.0 Calculus of kidney; J43.9 Emphysema, unspecified; R01.1 Cardiac murmur, unspecified; I10 Essential (primary) hypertension; M54.5 Low back pain; E11.9 Type 2 diabetes mellitus without complications; F41.9 Anxiety disorder, unspecified; F32.9 Major depressive disorder, single episode, unspecified; Z88.0 Allergy status to penicillin; Z88.1 Allergy status to other antibiotic agents; Z88.2 Allergy status to sulfonamides; Z79.899 Other long term (current) drug therapy; Z87.891 Personal history of nicotine dependence
CPT/HCPCS: 36415; 80053; 81000; 83605; 84145; 84703; 85025; 87040; 87088; 96361; 96374; 96375

== ENCOUNTER → 2019-12-30 | Outpatient (CLI) | payer MEDICAID ==
[~2019-12-30] MED LIST changes: +ACET325T38 PO; +ALBU2.5V4 NEB; +ALPR2TAB4 PO; +AZIT250T12 PO; +CEFD300C3 PO; +CYCL10TA9 PO; +EPIN0.3P18 IJ; +ESCI20TA45 PO; -HYDR-3812 PO; +IBUP-30 PO; +RT-ALBUINH IH; +TRAM-42 PO
--- NOTE | 2019-12-30 15:29 | Diagnostic Imaging Report ---
PROCEDURE: CT urinary tract, rule out kidney stone. TECHNIQUE: Multiple contiguous axial images were obtained through the abdomen and pelvis without the use of intravenous contrast. Auto Exposure Controls were utilized during the CT exam to meet ALARA standards for radiation dose reduction. INDICATION: Left-sided flank pain for four days and hematuria. Patient does have a history of kidney stones. Correlation is made with prior CT from 05/05/2019. FINDINGS: Patient has developed some pleural fluid or perhaps pleural thickening in the major fissure on the left. Otherwise, the lung bases appear to be fairly clear. The liver and gallbladder are unremarkable. No biliary ductal dilatation is detected. Pancreas and spleen are unremarkable. No adrenal mass is detected. The kidneys are unremarkable apart from a questionable punctate nonobstructing calculus in the right kidney. No hydronephrosis is identified. Aorta is nonaneurysmal. Small and large bowel loops are normal caliber. There is no obstruction. Bladder and uterus are unremarkable. There is no free fluid or fluid collection identified. No inflammatory changes are detected. IMPRESSION: Essentially unremarkable noncontrast CT of abdomen and pelvis with the exception of possible tiny nonobstructing right renal calculus. No acute feature is detected. Dictated by: Dictated on workstation # [id number]
== END ==
LOC: RAD 13:37
PROVIDERS: ATTEND Nurse Practitioner Community Health
DX: R31.0 Gross hematuria (principal)
CPT/HCPCS: 74176

== ENCOUNTER → 2020-09-14 | Outpatient (CLI) | payer MEDICAID ==
[~2020-09-14] MED LIST changes: +CYCL10TA9 PO; +ESCI20TA39 PO; -ESCI20TA45 PO; +TRAM-42 PO
--- NOTE | 2020-09-14 13:23 | Diagnostic Imaging Report ---
PROCEDURE: CT abdomen and pelvis with and without contrast. TECHNIQUE: Precontrast acquisitions were acquired through the abdomen and pelvis. Multiple contiguous axial images were obtained through the abdomen and pelvis after the administration of intravenous contrast. Auto Exposure Controls were utilized during the CT exam to meet ALARA standards for radiation dose reduction. INDICATION: Hematuria. COMPARISON: CT abdomen and pelvis from 12/30/2019. FINDINGS: Lower chest: Subpleural groundglass opacities within the left lower lobe. Peritoneum: No free intraperitoneal air or fluid. Liver and biliary system: Focal fatty infiltration along the falciform ligament. Otherwise, liver is normal. The gallbladder is normal. No biliary duct dilation. Spleen and Pancreas: Spleen is normal. The pancreas enhances normally without mass lesion or peripancreatic inflammatory changes. Adrenals: Normal. tract: No renal or ureteral stones. No obstructive uropathy. No solid renal mass. No filling defects within the ureters that would suggest urothelial neoplasm. Urinary bladder is well filled with contrast material and has no isolated wall thickening. Uterus and ovaries are normal in appearance. GI tract: Stomach is partially filled with fluid and air and there is no wall thickening. No bowel obstruction. No pericolonic inflammatory changes. Appendectomy. Vasculature and Lymph nodes: Normal caliber aorta. No abdominal or pelvic lymphadenopathy. Musculoskeletal: No concerning osseous lesion. IMPRESSION: 1. No urinary tract calculi or obstructive uropathy. 2. No features of neoplasm within the kidneys, ureters, or urinary bladder by CT. 3. Left lower lobe groundglass pulmonary opacities are likely due to an infectious process, and can be seen with COVID-19 infection. Dictated by: Dictated on workstation # [id number]
== END ==
LOC: RAD 11:28
PROVIDERS: ATTEND Nurse Practitioner
DX: R31.9 Hematuria, unspecified (principal)
CPT/HCPCS: 74178

== ENCOUNTER → 2020-10-17 | Outpatient (CLI) | payer MEDICAID ==
[~2020-10-17] MED LIST changes: +RT-ALBUTEROL SULF 2.5 MG/3 ML PRE-MIX VIAL INH ONE
== END ==
LOC: RT 15:15
PROVIDERS: ATTEND Nurse Practitioner Family
DX: J45.40 Moderate persistent asthma, uncomplicated (principal)
CPT/HCPCS: 94060; 94726; 94729

== ENCOUNTER → 2020-10-17 | Outpatient (CLI) | payer MEDICAID ==
[~2020-10-17] MED LIST changes: -RT-ALBUTEROL SULF 2.5 MG/3 ML PRE-MIX VIAL INH ONE
--- NOTE | 2020-10-18 12:33 | Diagnostic Imaging Report ---
Indication: Routine screening. No prior mammograms are available for comparison. This a baseline study. 2-D and 3-D bilateral screening mammography was performed with CAD. Both breast are heterogeneously dense, limiting the sensitivity of mammography. There is a circumscribed mass upper outer aspect of the left breast, likely a cyst. This is approximately 7 cm from the nipple. No other masses or malignant appearing microcalcifications are seen. Axillae are unremarkable. IMPRESSION: BI-RADS 0 Circumscribed nodule upper outer left breast, likely a cyst. Further evaluation with ultrasound is recommended. ACR BI-RADS Category 0: Incomplete. (Needs additional imaging evaluation). Result letter will be mailed to the patient. Note: At least 10% of breast cancer is not imaged by mammography. Dictated by: Dictated on workstation # [id number]
== END ==
LOC: RAD 15:14
PROVIDERS: ATTEND Nurse Practitioner
DX: Z12.31 Encounter for screening mammogram for malignant neoplasm of breast (principal); Z00.00 Encounter for general adult medical examination without abnormal findings
CPT/HCPCS: 77063; 77067

== ENCOUNTER → 2021-01-04 | Outpatient (CLI) | payer MEDICAID ==
--- NOTE | 2021-01-05 10:01 | Diagnostic Imaging Report ---
INDICATION: Abnormal mammogram. Correlation is made with screening mammogram from 10/17/2020. Sonographic interrogation of the outer left breast was performed. There is a macrolobulated solid mass at the 2:00 location of the left breast, 6 cm from the nipple measuring 1.1 x 0.6 x 1.1 cm. No posterior acoustic shadowing is seen. There is no internal vascularity. No other masses are seen. IMPRESSION: BI-RADS Category 4 Macrolobulated solid mass at the 2:00 location left breast, 6 cm from the nipple, likely accounting for the mammographic density. This most likely represents a fibroadenoma, however, after discussion with the patient, the patient elected to undergo ultrasound-guided core biopsy. The patient will be scheduled for ultrasound-guided biopsy to confirm histology. ACR BI-RADS Category 4: Suspicious abnormality. Result letter will be mailed to the patient. Note: At least 10% of breast cancer is not imaged by mammography. Dictated by: Dictated on workstation # [id number]
== END ==
LOC: RAD 12:45
PROVIDERS: ATTEND Nurse Practitioner
DX: N63.21 Unspecified lump in the left breast, upper outer quadrant (principal)
CPT/HCPCS: 76642

== ENCOUNTER → 2021-01-13 | Outpatient (CLI) | payer MEDICAID ==
[~2021-01-13] VITALS: Ht 162.6 cm; Wt 54.5 kg
[~2021-01-13] MED LIST changes: +LIDOCAINE 1% INJ 20 ML 20 ML VIAL INJ ONE
--- NOTE | 2021-01-13 10:05 | Diagnostic Imaging Report ---
INDICATION: Left breast mass. Patient presents for ultrasound-guided biopsy. Patient brought to the ultrasound room and placed on the bed in the supine position. Ultrasound imaging of the left breast was performed to evaluate appropriate entry site. Left breast was then prepped and draped in the normal sterile fashion. Small amount 1% lidocaine was utilized for local anesthesia. Total of 4 core biopsies were obtained of the macrolobulated solid mass at the 2 o'clock location of the left breast, 6 cm from the nipple utilizing a 14-gauge Achieve needle. A marker clip was then deployed. Hemostasis was obtained using manual compression. The patient tolerated the procedure well. Patient obtained a post procedure mammogram. IMPRESSION: Successful ultrasound guided core biopsy of the solid mass 2 o'clock location left breast, 6 cm from the nipple. Pathology results are currently pending. Dictated by: Dictated on workstation # [id number]
--- NOTE | 2021-01-13 11:36 | Diagnostic Imaging Report ---
Indication: Left breast ultrasound-guided biopsy. Study is performed to evaluate clip placement. Unilateral left 2-D CC and ML mammography was performed. There is a marker clip in the upper and outer aspect of the left breast adjacent to the known solid mass. IMPRESSION: Marker clip placement status post ultrasound-guided core biopsy of left breast mass. Dictated by: Dictated on workstation # [id number]
== END ==
LOC: RAD 08:35
PROVIDERS: ATTEND Nurse Practitioner
DX: N63.21 Unspecified lump in the left breast, upper outer quadrant (principal)
CPT/HCPCS: 19083; 77065; G0279

== ENCOUNTER 2021-07-13 09:14 | Outpatient (CLI) | payer MEDICAID ==
[~2021-07-13] VITALS: Ht 162.6 cm; Wt 54.9 kg
[~2021-07-13 09:14] MED LIST changes: -ALPR2TAB4 PO; +ALPR2TAB8 PO; +CYCL10TA25 PO; -CYCL10TA9 PO; -LIDOCAINE 1% INJ 20 ML 20 ML VIAL INJ ONE
[2021-07-13 09:22] VITALS: BP 133/73
[2021-07-13] MEDS ORDERED: ONDANSETRON 4 MG/2 ML (SDV) Z0FRAN IV PRN (09:30)
[2021-07-13] MEDS ORDERED: ACETAMINOPHEN 500 MG TAB (TYLENOL) PO PRN (09:30)
[2021-07-13] MEDS ORDERED: EPINEPHrine INJECTION 1 MG/ML AMP IM PRN (09:30)
[2021-07-13] MEDS ORDERED: SOTROVIMAB 500 MG/NS 100 ML IVPB IV ONE ×2 (09:30)
[2021-07-13] MEDS ORDERED: diphenhydrAMINE 50 MG/ML INJ (BENADRYL) IV PRN (09:30)
[2021-07-13 10:27] VITALS: BP 129/76
== END 2021-07-13 10:28 | disposition home or self-care (01) ==
LOC: INFUSION 09:14
PROVIDERS: ATTEND Pediatrics
DX: U07.1 COVID-19 (principal)

== ENCOUNTER 2021-08-27 14:41 | Emergency (ER) | payer MEDICAID ==
[~2021-08-27] VITALS: Ht 162.6 cm; Wt 54.9 kg
[2021-08-27 14:47] VITALS: BP 132/77
[2021-08-27] MEDS ORDERED: HYDROcodone/APAP 7.5 MG/325 MG (LORTAB, LORCET PLUS) TABLET PO ONE (15:15)
--- NOTE | 2021-08-27 15:20 | ED Chest Pain ---
General Chief Complaint: Chest Wall Stated Complaint: FALL 08/25 - L SIDE / BACK PAIN Nursing Triage Note: PT AMB TO FT 3 W C/O L RIB PAIN SX SATURDAY WHEN SHE FELL, LANDED ON L SIDE. PAIN WORSE W COUGH/DEEP BREATHING. PT A&OX4. Source: patient Exam Limitations: no limitations History of Present Illness Date Seen by Provider: Aug 27, 2021 Time Seen by Provider: 15:10 Initial Comments Patient is a 40-year-old female who presents to the emergency department today with a chief complaint of left sided rib pain. Patient states that she had a slip and fall on ice on Saturday of last week, 2 days ago. She states she had had some pain at that time especially pain with taking deep breaths. Patient states today she coughed and took a deep breath and felt a "pop" in her back. No other complaints of injury related to the fall. She has been taking ibuprofen 800 mg last dose was around 1:00. All other ROS reviewed and negative except as stated. Timing/Duration: 1-2 days Severity/Quality: severe, sharp Location: other (left lateral chest) Radiation: no radiation Activities at Onset: activity ASA po ELECTROLYSIS NEEDLE OPERATOR: No NTG SL ELECTROLYSIS NEEDLE OPERATOR: No Associated Symptoms: shortness of breath Allergies and Home Medications Allergies Coded Allergies: Penicillins (Unverified Allergy, Mild, 06/13/16) moxifloxacin (Unverified Allergy, Mild, tongue swelling, 06/13/16) Sulfa (Sulfonamide Antibiotics) (Verified Allergy, Unknown, 06/13/16) Patient Home Medication List Home Medication List Reviewed: Yes Acetaminophen (Tylenol) 325 Mg Tablet, 650 MG PO Q6H PRN for PAIN-MILD, (Reported) Entered as Reported by: HARITHA MÉNDEZ on 05/05/19 1508 Albuterol Sulfate (Proair Hfa) 1 Puff Puff, 2 PUFF IH Q4H PRN for SHORTNESS OF BREATH, (Reported) Entered as Reported by: HARITHA MÉNDEZ on 05/05/19 1508 Albuterol Sulfate (Albuterol Sulfate) 2.5 Mg/3 Ml Vial.neb, 2.5 MG NEB Q4H PRN for SHORTNESS OF BREATH, (Reported) Entered as Reported by: HARITHA MÉNDEZ on 05/05/19 150 Alprazolam (Alprazolam ER) 2 Mg Tab.er.24h, 2 MG PO DAILY, (Reported) Entered as Reported by: HARITHA MÉNDEZ on 05/05/19 1506 Azithromycin (Azithromycin) 250 Mg Tablet, 250 MG PO DAILY Prescribed by: QUENTIN HINES on 05/06/19 112 Cefdinir (Cefdinir) 300 Mg Capsule, 300 MG PO BID Prescribed by: QUENTIN HINES on 05/06/19 112 Cyclobenzaprine HCl (Cyclobenzaprine HCl) 10 Mg Tablet, 10 MG PO Q8H PRN for SPASMS Prescribed by: FERNANDA CURTIS on 12/31/19 003 Epinephrine (Epinephrine) 0.3 Mg/0.3 Ml Auto.injct, 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, (Reported) Entered as Reported by: HARITHA MÉNDZE on 05/05/19 150 Escitalopram Oxalate (Escitalopram Oxalate) 20 Mg Tablet, 20 MG PO DAILY, (Reported) Entered as Reported by: HARITHA MÉNDEZ on 05/05/19 150 Ibuprofen (Advil) 200 Mg Tablet, 600 MG PO TID PRN for PAIN-MILD, (Reported) Entered as Reported by: HARITHA MNÉDEZ on 05/05/19 150 Nitrofurantoin Monohyd/M-Cryst (Macrobid 100 mg Capsule) 100 Mg Capsule, 1 TAB PO BID Prescribed by: FERNANDA CURTIS on 12/31/1931 Tramadol HCl (Ultram) 50 Mg Tablet, 50 MG PO Q4H Prescribed by: FERNANDA CURTIS on 12/31/1931 Review of Systems Review of Systems Constitutional: see HPI EENTM: No Symptoms Reported Respiratory: Shortness of Air Cardiovascular: Chest Pain Gastrointestinal: No Symptoms Reported Genitourinary: No Symptoms Reported Musculoskeletal: no symptoms reported Skin: no symptoms reported All Other Systems Reviewed Negative Unless Noted: Yes Past Mcohtna-Qmegzy-Xmqlkt Hx Patient Social History Tobacco Use?: Yes Tobacco type used: Cigarettes Smoking Status: Current Everyday Smoker Use of E-Cig and/or Vaping dev: No Substance use?: No Alcohol Use?: No Immunizations Up To Date Tetanus Booster (TDap): Less than 5yrs PED Vaccines UTD: Yes Influenza Vaccine Up-to-Date: No; Not Current First/Initial COVID19 Vaccinat: 2020 COVID19 Vaccine Folder Machine: J&J Seasonal Allergies Seasonal Allergies: No Past Medical History Surgeries: Yes Appendectomy, Orthopedic Respiratory: Yes Asthma, Emphysema Currently Using CPAP: No Currently Using BIPAP: No Cardiac: Yes Heart Murmur, Hypertension Neurological: No Reproductive Disorders: No Female Reproductive Disorders: Denies Sexually Transmitted Disease: No HIV/AIDS: No Genitourinary: Yes Kidney Infection, Bladder Infection, Kidney Stones Gastrointestinal: No Musculoskeletal: Yes Chronic Back Pain Endocrine: Yes Diabetes, Non-Insulin dep HEENT: No Loss of Vision: Denies Hearing Impairment: Denies Cancer: No Psychosocial: Yes Anxiety, Depression Integumentary: No Blood Disorders: No Adverse Reaction/Blood Tranf: No (never had a transfusion) Family Medical History Cardiovascular disease 19 FATHER Hypertension 19 FATHER Myocardial infarction 19 FATHER No Family History of: Diabetes mellitus Respiratory disorder Seizure disorder No Pertinent Family Hx, Heart Disease, Cancer, Renal Disease Physical Exam Vital Signs Vital Signs - First Documented 08/27/21 14:47 Temp 36.6 Pulse 78 Resp 20 B/P (MAP) 132/77 (95) Pulse Ox 97 O2 Delivery Room Air Capillary Refill : Less Than 3 Seconds Height, Weight, BMI Height: 5'4.00" Weight: 131lbs. 0.0oz. 59.076149ja; 20.00 BMI Method:Stated General Appearance: No Apparent Distress, Anxious HEENT: PERRL/EOMI Neck: Normal Inspection Respiratory: Normal Breath Sounds, No Accessory Muscle Use, No Respiratory Distress, Other (tenderness to palpation over the left lower ribs - anteriorly about rib 6,7,8 - wraps around to the posterior ribs. no overlying erythema; no crepitance) Cardiovascular: Regular Rate, Rhythm Gastrointestinal: Non Tender, Soft Extremity: Normal Inspection, Normal Range of Motion, Non Tender Neurologic/Psychiatric: Alert, Oriented x3, No Motor/Sensory Deficits, Normal Mood/Affect Skin: Normal Color, Warm/Dry Progress/Results/Core Measures Results/Orders My Orders Orders - NIMESH WHITE MD Chest Pa/Lat (2 View) (08/27/21 15:15) Hydrocodone/Apap 7.5/325 Tab (Lortab 7. (08/27/21 15:15) Medications Given in ED Current Medications Medications Dose Ordered Sig/Wallace Route Start Time Stop Time Status Last Admin Dose Admin Acetaminophen/ Hydrocodone Bitart 1 ea ONCE ONCE PO 08/27/21 15:15 08/27/21 15:16 DC 08/27/21 15:26 1 EA Vital Signs/I&O 08/27/21 14:47 Temp 36.6 Pulse 78 Resp 20 B/P (MAP) 132/77 (95) Pulse Ox 97 O2 Delivery Room Air Blood Pressure Mean: 95 Progress Progress Note : Time: 15:37 Progress Note chest xray reviewed - no pneumothorax; bones look good. no effusions or mediastinal abnormality. will give the patient a couple of days of pain medications, as there may be a small fracture we are unable to see. recommend ongoing NSAIDs and deep breaths. Return precautions provided. Diagnostic Imaging Diagonstic Imaging: Xray Plain Films/CT/US/NM/MRI: chest Comments [facility] [place], [place] NAME: TONY MONTALVO [facility] REC#: [id number] PT STATUS: REG ER : 1980 PHYSICIAN: NIMESH WHITE MD ADMIT DATE: 08/27/21/ER Draft Date of Exam:08/27/21 CHEST PA/LAT (2 VIEW) EXAMINATION: Chest 2 view. HISTORY: Left rib pain. COMPARISON: 05/05/2019. FINDINGS: The lungs are clear without edema or pneumonia. No pleural effusion or pneumothorax. Heart size is normal. IMPRESSION: Clear lungs. Dictated on workstation # [id number] Dict: 08/27/21 1527 Trans: 08/27/21 1529 LOCATED WITHIN [facility] [id number] Interpreted by: VAMSI PONCE MD Electronically signed by: Departure Impression Primary Impression: Pleuritic chest pain Disposition: 01 HOME, SELF-CARE Condition: Stable Departure-Patient Inst. Decision time for Depature: 15:38 Referrals: [facility] [place] ([place]/Family) Primary Care Physician Patient Instructions: Rib Fracture (DC) Add. Discharge Instructions: Deep breaths often to help keep your lungs open and clear. Pain medications, 1 every 6 hours as needed. Pain medications can cause constipation, take a stool softener daily while taking pain medications. Return to the ER for fever, worsening shortness of breath, or other emergent concerning symptoms. COntinue the ibuprofen 800mg (with food) every 8 hours for pain as well. Scripts Hydrocodone/Acetaminophen (Hydrocodone-Acetamin 5-325 mg) 1 Each Tablet 1 TAB PO Q6H PRN for PAIN-MODERATE (5-7), #10 TAB Prov: NIMESH WHITE MD 08/27/21 NIMESH WHITE MD Aug 27, 2021 15:20
--- NOTE | 2021-08-27 15:30 | Diagnostic Imaging Report ---
EXAMINATION: Chest 2 view. HISTORY: Left rib pain. COMPARISON: 05/05/2019. FINDINGS: The lungs are clear without edema or pneumonia. No pleural effusion or pneumothorax. Heart size is normal. IMPRESSION: Clear lungs. Dictated by: Dictated on workstation # [id number]
[2021-08-27] MEDS ORDERED: ACHD5005 PO (15:41)
== END 2021-08-27 15:47 | disposition home or self-care (01) ==
LOC: EDUNIT# 14:41 → ER 14:42
DX: R07.81 Pleurodynia (principal); F17.210 Nicotine dependence, cigarettes, uncomplicated
CPT/HCPCS: 71046

== ENCOUNTER 2021-11-20 21:15 | Emergency (ER) | payer MEDICAID ==
[~2021-11-20] VITALS: Ht 163 cm; Wt 51.4 kg
[2021-11-20 21:20] VITALS: BP 137/71
--- NOTE | 2021-11-20 21:36 | ED Chest Pain ---
General Chief Complaint: Chest Pain Stated Complaint: CP/L ARM PAIN Source: patient Exam Limitations: no limitations History of Present Illness Date Seen by Provider: November 20, 2021 Time Seen by Provider: 21:28 Initial Comments Patient is a 41-year-old female who presents to the emergency department today with a chief complaint of heavy pressure-like chest discomfort onset initially when she woke up at 7 AM this morning. Has waxed and waned throughout the day g etting worse at around 630 this evening with radiation into her left arm and shoulder. She is nauseous and short of breath. She has never had anything quite like this before. She does smoke. She is on propranolol but that is for nerves and not hypertension. She has significant family history of coronary artery disease. She has never had a stress test before. Nothing has made the pain any better or worse today. She denies any recent fevers, chills productive cough. No problems with bowel or bladder. No swelling in her legs. She rates her pain at a "8". She looks quite apprehensive and anxious. All other review of systems reviewed and negative except as stated. (further review of medical record reveals the patient has in fact, had a lexiscan stress in October 2018 that was normal - calculated EF 72%. exercised beyond 8min 30sec) Timing/Duration: 12 hours Severity/Quality: severe, aching, pressure, tightness Location: central Radiation: arms (left) Activities at Onset: none Prior CP/Workup: stress test () ASA po FEATHER TRIMMER: No NTG SL FEATHER TRIMMER: No Associated Symptoms: nausea/vomiting, shortness of breath Allergies and Home Medications Allergies Coded Allergies: Penicillins (Unverified Allergy, Mild, 06/13/16) moxifloxacin (Unverified Allergy, Mild, tongue swelling, 06/13/16) Sulfa (Sulfonamide Antibiotics) (Verified Allergy, Unknown, 06/13/16) Patient Home Medication List Home Medication List Reviewed: Yes Acetaminophen (Tylenol) 325 Mg Tablet, 650 MG PO Q6H PRN for PAIN-MILD, (Reported) Entered as Reported by: HARITHA MÉNDEZ on 05/05/19 150 Albuterol Sulfate (Proair Hfa) 1 Puff Puff, 2 PUFF IH Q4H PRN for SHORTNESS OF BREATH, (Reported) Entered as Reported by: HARITHA MÉNDEZ on 05/05/19 1508 Albuterol Sulfate (Albuterol Sulfate) 2.5 Mg/3 Ml Vial.neb, 2.5 MG NEB Q4H PRN for SHORTNESS OF BREATH, (Reported) Entered as Reported by: HARITHA MÉNDEZ on 05/05/19 150 Alprazolam (Alprazolam ER) 2 Mg Tab.er.24h, 2 MG PO DAILY, (Reported) Entered as Reported by: HARITHA MÉNDEZ on 05/05/19 150 Azithromycin (Azithromycin) 250 Mg Tablet, 250 MG PO DAILY Prescribed by: QUENTIN HINES on 05/06/19 112 Cefdinir (Cefdinir) 300 Mg Capsule, 300 MG PO BID Prescribed by: QUENTIN HINES on 05/06/19 112 Cyclobenzaprine HCl (Cyclobenzaprine HCl) 10 Mg Tablet, 10 MG PO Q8H PRN for SPASMS Prescribed by: FERNANDA CURTIS on 12/31/19 003 Epinephrine (Epinephrine) 0.3 Mg/0.3 Ml Auto.injct, 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, (Reported) Entered as Reported by: HARITHA MÉNDEZ on 05/05/19 150 Escitalopram Oxalate (Escitalopram Oxalate) 20 Mg Tablet, 20 MG PO DAILY, (Reported) Entered as Reported by: HARITHA MÉNDEZ on 05/05/19 150 Hydrocodone/Acetaminophen (Hydrocodone-Acetamin 5-325 mg) 1 Each Tablet, 1 TAB PO Q6H PRN for PAIN-MODERATE (5-7) Prescribed by: NIMESH WHITE on 08/27/21 1542 Ibuprofen (Advil) 200 Mg Tablet, 600 MG PO TID PRN for PAIN-MILD, (Reported) Entered as Reported by: HARITHA MÉNDEZ on 05/05/19 150 Nitrofurantoin Monohyd/M-Cryst (Macrobid 100 mg Capsule) 100 Mg Capsule, 1 TAB PO BID Prescribed by: FERNANDA CURTIS on 12/31/19 003 Pantoprazole Sodium (Protonix) 20 Mg Tablet.dr, 20 MG PO DAILY Prescribed by: NIMESH WHITE on 11/21/21 0043 Tramadol HCl (Ultram) 50 Mg Tablet, 50 MG PO Q4H Prescribed by: FERNANDA CURTIS on 12/31/19 0032 Review of Systems Review of Systems Constitutional: see HPI EENTM: No Symptoms Reported Respiratory: Shortness of Air Cardiovascular: Chest Pain Gastrointestinal: Nausea Genitourinary: No Symptoms Reported Musculoskeletal: no symptoms reported Skin: no symptoms reported Psychiatric/Neurological: Anxiety All Other Systems Reviewed Negative Unless Noted: Yes Past Pafwswx-Nwttyx-Alwgvj Hx Immunizations Up To Date Tetanus Booster (TDap): Less than 5yrs PED Vaccines UTD: Yes First/Initial COVID19 Vaccinat: 2020 Seasonal Allergies Seasonal Allergies: No Past Medical History Surgeries: Yes Appendectomy, Orthopedic Respiratory: Yes Asthma, Emphysema Currently Using CPAP: No Currently Using BIPAP: No Cardiac: Yes Heart Murmur, Hypertension Neurological: No Reproductive Disorders: No Female Reproductive Disorders: Denies Sexually Transmitted Disease: No HIV/AIDS: No Genitourinary: Yes Kidney Infection, Bladder Infection, Kidney Stones Gastrointestinal: No Musculoskeletal: Yes Chronic Back Pain Endocrine: Yes Diabetes, Non-Insulin dep HEENT: No Loss of Vision: Denies Hearing Impairment: Denies Cancer: No Psychosocial: Yes Anxiety, Depression Integumentary: No Blood Disorders: No Adverse Reaction/Blood Tranf: No (never had a transfusion) Family Medical History Cardiovascular disease 19 FATHER Hypertension 19 FATHER Myocardial infarction 19 FATHER No Family History of: Diabetes mellitus Respiratory disorder Seizure disorder No Pertinent Family Hx, Heart Disease, Cancer, Renal Disease Physical Exam Vital Signs Vital Signs - First Documented 11/20/21 21:20 Temp 37.1 Pulse 71 Resp 22 B/P (MAP) 137/71 (93) Capillary Refill : Height, Weight, BMI Height: 5'4.00" Weight: 131lbs. 0.0oz. 59.524665zi; 20.00 BMI Method:Stated General Appearance: WD/WN, Anxious, Mild Distress HEENT: PERRL/EOMI Neck: Normal Inspection Respiratory: Lungs Clear, Normal Breath Sounds, No Accessory Muscle Use, No Respiratory Distress Cardiovascular: Regular Rate, Rhythm (70's), Normal Peripheral Pulses Gastrointestinal: Non Tender, Soft Extremity: Normal Capillary Refill, Normal Inspection, Normal Range of Motion, Non Tender Neurologic/Psychiatric: Alert, Oriented x3, No Motor/Sensory Deficits, Normal Mood/Affect Skin: Normal Color, Warm/Dry Progress/Results/Core Measures Results/Orders Lab Results Laboratory Tests Test 11/20/21 21:28 11/20/21 23:50 Range/Units White Blood Count 9.0 4.3-11.0 10^3/uL Red Blood Count 3.87 3.80-5.11 10^6/uL Hemoglobin 12.6 11.5-16.0 g/dL Hematocrit 37 35-52 % Mean Corpuscular Volume 95 80-99 fL Mean Corpuscular Hemoglobin 33 25-34 pg Mean Corpuscular Hemoglobin Concent 34 32-36 g/dL Red Cell Distribution Width 12.5 10.0-14.5 % Platelet Count 352 130-400 10^3/uL Mean Platelet Volume 8.9 L 9.0-12.2 fL Immature Granulocyte % (Auto) 0 % Neutrophils (%) (Auto) 50 42-75 % Lymphocytes (%) (Auto) 36 12-44 % Monocytes (%) (Auto) 9 0-12 % Eosinophils (%) (Auto) 4 0-10 % Basophils (%) (Auto) 1 0-10 % Neutrophils # (Auto) 4.5 1.8-7.8 10^3/uL Lymphocytes # (Auto) 3.3 1.0-4.0 10^3/uL Monocytes # (Auto) 0.9 0.0-1.0 10^3/uL Eosinophils # (Auto) 0.4 H 0.0-0.3 10^3/uL Basophils # (Auto) 0.1 0.0-0.1 10^3/uL Immature Granulocyte # (Auto) 0.0 0.0-0.1 10^3/uL Prothrombin Time 13.1 12.2-14.7 SEC INR Comment 1.0 0.8-1.4 Activated Partial Thromboplast Time 29 24-35 SEC Sodium Level 140 135-145 MMOL/L Potassium Level 3.7 3.6-5.0 MMOL/L Chloride Level 106 98-107 MMOL/L Carbon Dioxide Level 22 21-32 MMOL/L Anion Gap 12 5-14 MMOL/L Blood Urea Nitrogen 11 7-18 MG/DL Creatinine 0.82 0.60-1.30 MG/DL Estimat Glomerular Filtration Rate 92 BUN/Creatinine Ratio 13 Glucose Level 96 70-105 MG/DL Calcium Level 8.9 8.5-10.1 MG/DL Corrected Calcium 8.9 8.5-10.1 MG/DL Magnesium Level 1.9 1.6-2.4 MG/DL Total Bilirubin 0.3 0.1-1.0 MG/DL Aspartate Amino Transf (AST/SGOT) 14 5-34 U/L Alanine Aminotransferase (ALT/SGPT) 12 0-55 U/L Alkaline Phosphatase 61 40-136 U/L Myoglobin 25.2 10.0-92.0 NG/ML Troponin I < 0.028 < 0.028 <0.028 NG/ML Total Protein 6.9 6.4-8.2 GM/DL Albumin 4.0 3.2-4.5 GM/DL My Orders Orders - NIMESH WHITE MD Ekg Tracing (11/20/21 21:27) Cbc With Automated Diff (11/20/21:) Magnesium (11/20/21:32) Chest 1 View, Ap/Pa Only (11/20/21:32) Comprehensive Metabolic Panel (11/20/21:32) Myoglobin Serum (11/20/21:32) Protime With Inr (11/20/21:32) Partial Thromboplastin Time (11/20/21 21:32) O2 (11/20/21:32) Monitor-Rhythm Ecg Trace Only (11/20/21:32) Lipid Panel (11/21/21 06:00) Ed Iv/Invasive Line Start (11/20/21 21:32) Troponin I Gini (11/20/21 21:32) Nitroglycerin 0.4 Mg Btl 25's (Nitrostat (11/20/21 21:45) Aspirin Chewable Tablet (Baby Aspirin Ch (11/20/21 21:45) Ondansetron Injection (Zofran Injectio (11/20/21 21:45) Ns Iv 1000 Ml (Sodium Chloride 0.9%) (11/20/21 21:45) Morphine Injection (Morphine Injection (11/20/21 22:14) Ketorolac Injection (Toradol Injection) (11/20/21 22:30) Troponin I Rock (11/20/21 23:51) Medications Given in ED Current Medications Medications Dose Ordered Sig/Wallace Route Start Time Stop Time Status Last Admin Dose Admin Aspirin 324 mg ONCE ONCE PO 11/20/21 21:45 11/20/21:46 DC 11/20/21 21:43 324 MG Ketorolac Tromethamine 30 mg ONCE ONCE IVP 11/20/21 22:30 11/20/21 22:31 DC 11/20/21 23:01 30 MG Nitroglycerin 0.4 mg UD PRN SL 11/20/21 21:45 11/20/21 21:45 0.4 MG Ondansetron HCl 4 mg ONCE ONCE IVP 11/20/21 21:45 11/20/21 21:46 DC 11/20/21 21:42 4 MG Vital Signs/I&O 11/20/21 21:20 Temp 37.1 Pulse 71 Resp 22 B/P (MAP) 137/71 (93) 11/21/21 00:00 Intake Total 1000 ml Balance 1000 ml Progress Progress Note : Time: 00:41 Progress Note Patient is feeling much better after medications. I have kept her for serial troponins both of which are negative. She has had no recurrence of pain. I have counseled her on smoking cessation. We will put her on some Protonix daily. Recommended close follow-up with her primary care physician this week. Return precautions also discussed. She verbalized understanding, she is comfortable with plan of care. All questions have been sought and answered. Initial ECG Impression Date: November 20, 2021 Initial ECG Impression Time: 21:31 Initial ECG Rate: 71 Initial ECG Rhythm: Normal Sinus Initial ECG Intervals: Normal Initial ECG Impression: Normal Comment hyperacute T waves in the precordial leads Diagnostic Imaging Diagonstic Imaging: Xray Plain Films/CT/US/NM/MRI: chest Comments [facility]. [place], [place] NAME: TONY MONTALVO [facility] REC#: [id number] PT STATUS: REG ER : 1980 PHYSICIAN: NIMESH WHITE MD ADMIT DATE: 11/20/21/ER Signed Date of Exam:11/20/21 CHEST 1 VIEW, AP/PA ONLY Indication: Chest pain Portable chest 9:52 PM Heart size and pulmonary vascularity are normal. Lungs are clear. There are no effusions or pneumothoraces. IMPRESSION: No acute abnormalities in the chest Dictated by: Dictated on workstation # [id number] Dict: 11/20/212148 Trans: 11/20/212149 [facility] [id number] Interpreted by: LUIS LOZA MD Electronically signed by: LUIS LOZA MD 11/20/212149 Counseling-Symptomatic: 3-10 Minutes Follow-up with PCP to: Discuss Further Options Departure Impression Primary Impression: Chest pain Qualified Codes: R07.9 - Chest pain, unspecified Disposition: HOME, SELF-CARE Condition: Improved Departure-Patient Inst. Decision time for Depature: 00:41 Referrals: [facility] (PCP/Family) Primary Care Physician Patient Instructions: Chest Pain (DC) Add. Discharge Instructions: Drink plenty of fluids to stay well-hydrated. Start Protonix 20 mg daily. Follow-up with your primary care doctor this week. You should really try and quit smoking. Return to the emergency department for return of chest pain especially with sweating, shortness of breath, nausea or any other emergent concerning symptoms. Scripts Pantoprazole Sodium (Protonix) 20 Mg Tablet. 20 MG PO DAILY for 30 Days, #30 TAB Prov: NIMESH WHITE MD 11/21/21 Copy Copies To 1: MONA FOLEY KATHRYN M MD November 20, 2021 21:36
[2021-11-20 21:41] LABS: BASOPHILS # (AUTO) 0.1 10^3/uL (0.0-0.1); BASOPHILS % (AUTO) 1 % (0-10); EOSINOPHILS # (AUTO) 0.4 10^3/uL (0.0-0.3); EOSINOPHILS % (AUTO) 4 % (0-10); HEMATOCRIT 37 % (35-52); HEMOGLOBIN 12.6 g/dL (11.5-16.0); LYMPHOCYTES # (AUTO) 3.3 10^3/uL (1.0-4.0); LYMPHOCYTES % (AUTO) 36 % (12-44); MEAN CORPUSCULAR HEMOGLOBIN 33 pg (25-34); MEAN CORPUSCULAR HGB CONC 34 g/dL (32-36); MEAN CORPUSCULAR VOLUME 95 fL (80-99); MEAN PLATELET VOLUME 8.9 fL (9.0-12.2); MONOCYTES # (AUTO) 0.9 10^3/uL (0.0-1.0); MONOCYTES % (AUTO) 9 % (0-12); NEUTROPHILS # (AUTO) 4.5 10^3/uL (1.8-7.8); NEUTROPHILS % (AUTO) 50 % (42-75); PLATELET COUNT 352 10^3/uL (130-400)
[2021-11-20] MEDS: NITROGLYCERIN 0.4 MG SL TABS BTL 25'S SL PRN ×2 (21:44→21:45)
[2021-11-20] MEDS ORDERED: NS IV 1000 ML 1,000 ML IV SCH (21:45)
[2021-11-20] MEDS ORDERED: ONDANSETRON 4 MG/2 ML (SDV) Z0FRAN IVP ONE (21:45)
[2021-11-20] MEDS ORDERED: ASPIRIN 81 MG CHEW (CHILDREN'S ASA) PO ONE (21:45)
--- NOTE | 2021-11-20 21:51 | Diagnostic Imaging Report ---
Indication: Chest pain Portable chest 9:52 PM Heart size and pulmonary vascularity are normal. Lungs are clear. There are no effusions or pneumothoraces. IMPRESSION: No acute abnormalities in the chest Dictated by: Dictated on workstation # [id number]
[2021-11-20 21:52] LABS: POTASSIUM 3.7 MMOL/L (3.6-5.0)
[2021-11-20 21:53] LABS: CALCIUM 8.9 MG/DL (8.5-10.1)
[2021-11-20 21:55] LABS: TOTAL PROTEIN 6.9 GM/DL (6.4-8.2)
[2021-11-20 21:56] LABS: BILIRUBIN,TOTAL 0.3 MG/DL (0.1-1.0)
[2021-11-20 21:58] LABS: CREATININE SERUM 0.82 MG/DL (0.60-1.30)
[2021-11-20 22:01] LABS: MAGNESIUM 1.9 MG/DL (1.6-2.4)
[2021-11-20] MEDS ORDERED: morphine INJ 10 MG/ML 1ML (SYR OR VIAL) IVP STA (22:14)
[2021-11-20] MEDS ORDERED: KETOROLAC 30 MG/ML VIAL IVP ONE (22:30)
[2021-11-21 00:10] LABS: PROTHROMBIN TIME PATIENT 13.1 SEC (12.2-14.7)
[2021-11-21] MEDS ORDERED: PANT20TA2 PO (00:43)
== END 2021-11-21 00:49 | disposition home or self-care (01) ==
LOC: EDUNIT# 21:15 → ER 21:16
DX: R07.89 Other chest pain (principal); I10 Essential (primary) hypertension; Z79.899 Other long term (current) drug therapy
CPT/HCPCS: 36415; 71045; 80053; 83735; 83874; 84484; 85025; 85610; 85730; 93005